=== PATIENT | male | born 1960 | race Caucasian/White ===

== ENCOUNTER 2023-08-11 12:04 | Outpatient (OUT) | payer MEDICARE, SELFPAY ==
--- NOTE | 2023-08-11 13:11 | PM.CN ---
Consult Note: HPI Data of Consult Patient: new to practice Consult date: 08/11/23 Requesting Physician: Savanna Mcclain MD Primary Care Provider: JOSH MELVIN Consult Narrative Reason for consult: neck, midback, low back, bilateral leg pain Narrative: 62yom who presents for evaluation. Generalized pain throughout his body, worst throughout low back. Has had lumbar surgeries previously with subsequent spinal cord stim placement. States that the stim battery no longer works, though has not had this interrogated for a long time. Was previously on high dose narcotics, but did not like taking these medications. Currently on gabapentin and flexeril, which does help. Engages in provider directed home exercise course for >6 weeks, with minimal benefit. Otherwise denies adverse med side effects. cc:: CC: Savanna Mcclain MD Review of Systems ROS Status of ROS 10 or more systems reviewed and unremarkable except as noted in history and below Exam Narrative Exam Narrative: Psych-alert and oriented x 3. Attentive and appropriate, constitutionally normal, displays normal mood and affect per situation. There are no obvious deficits in memory, reasoning, or intellect.? Skin-no obvious rashes, bruising, erythema noted to the patient's area of pain.? Extremities- extremities are warm with minimal edema and palpable pulses. Cervical- tenderness to palpation noted in the cervical spine and paraspinal musculature.? Pain is elicited with extension, and lateral rotation of the cervical spine.? Range of motion is slightly diminished due to pain. Facet loading maneuvers are positive bilaterally. Lumbar-tenderness to palpation noted in the lumbar spine and paraspinal musculature. Pain is elicited with flexion, extension, and lateral rotation of the lumbar spine. Range of motion is diminished with these motions. Facet loading maneuvers are positive. Strength-noted to be unremarkable with the exception of decreased strength rated at 4 out of 5 in bilateral quadriceps femoris, anterior tibialis. Sensory-no notable sensory deficits in the bilateral lower extremities to touch or pinprick in all dermatomal distributions with the exception to decreased sensation to the bilateral L4, 5 dermatomal distribution Coordination remains intact.? Gait remains non-antalgic. Assessment and Plan Assessment and Plan (1) Cervicalgia: (2) Thoracic back pain: (3) Lumbar stenosis with neurogenic claudication: (4) Lumbar postlaminectomy syndrome: Plan 62yom who presents for evaluation. Failed conservative measures, as noted. Would like to have [employer] reps interrogate his device before deciding whether battery needs replacement. Because it has been several years since his most recent imaging, would like him to undergo XR cervical spine, thoracic spine, and CT lumbar spine myelogram. Cannot undergo MRI due to spinal cord stim battery. He is in agreement. Medications reviewed. Pain medication currently prescribed by PCP, but discussed that I would be willing to take over his gabapentin and flexeril if his PCP prefers. He expressed understanding. Follow up after imaging.
== END 2023-08-11 12:05 | disposition home or self-care (01) ==
LOC: PM 12:05
PROVIDERS: PCP Family Medicine; Visit Provider Anesthesiology
DX: M54.2 Cervicalgia (principal); M54.6 Pain in thoracic spine; M96.1 Postlaminectomy syndrome, not elsewhere classified; M48.062 Spinal stenosis, lumbar region with neurogenic claudication
CPT/HCPCS: G0463

== ENCOUNTER 2023-08-25 09:40 | Day surgery (SDC) | payer MEDICARE, SELFPAY ==
--- NOTE | 2023-08-25 10:02 | FL_ITS ---
The [address] [address] Patient Name: CHARLI MEIER MRN: [id number] date: 1960 Sex: M Assigned Patient Location: [place] Current Patient Location: [place] Accession/Order Number: [id number] Exam Date: 08/25/2023 10:10 Report Date: 08/25/2023 11:46 At the request of: KIKE GIEDRAFABI Procedure: FL myelogram spine lumbosacral EXAMINATION: FL myelogram spine lumbosacral HISTORY: Post Laminectomy Syndrome COMPARISON: No relevant comparison available. TECHNIQUE: After obtaining the patient's informed consent, a lumbar myelogram was performed in the usual sterile manner via lumbar puncture. Standard level fluoroscopic mode of operation utilized. FINDINGS: PARASPINAL AREA: Normal with no visible mass. DISCS: Intervertebral disc spacers L3-4, L4-5, L5-S1. BONES: Mechanical fusion L3-S1 via bilateral pedicle screws and rods. Laminectomy L4 and L5 levels. CENTRAL CANAL: Grossly normal caliber and contour. The conus terminates at a normal level. FL/FL myelogram spine lumbosacral IMPRESSION: 1. Successful lumbar puncture at L4 level and instillation of radiopaque contrast within central canal. Patient tolerated the procedure well with no complications. 2. Please see report from subsequent CT lumbar spine study. Electronically authenticated by: BOUCHRA HALL Date: 08/25/2023 11:46
--- NOTE | 2023-08-25 10:02 | CT_ITS ---
The [address] [address] Patient Name: CHARLI MEIER MRN: [id number] date: 1960 Sex: M Assigned Patient Location: [place] Current Patient Location: Accession/Order Number: [id number] Exam Date: 08/25/2023 11:12 Report Date: 08/26/2023 03:21 At the request of: KIKE MCKEON Procedure: CT lumbar spine wo con EXAM: CT lumbar spine wo con HISTORY: Post Laminectomy Syndrome COMPARISON: None. TECHNIQUE: CT myelogram of the lumbar spine FINDINGS: There is straightening of the normal lumbar lordotic curvature. Postsurgical changes visualized secondary to transpedicular screw fixation with posterior rods spanning the L3-S1 levels with bilateral laminectomies status post canal decompression. Intervertebral disc spacers at the L3-L4, L4-L5 and L5-S1 levels. Hardware appears intact without evidence for fracture or loosening There is contrast opacification noted within the lower thoracic and lumbar central canal. T11-T12: Small broad-based disc protrusion visualized with mild central canal narrowing. Mild facet arthrosis visualized. T12-L1: No significant disc herniation/bulge visualized, the central canal and bilateral neuroforamina are patent. L1-L2: There is a large central disc extrusion with cranial migration extending up to the midportion of the L1 vertebral body measuring up to 7 mm in AP diameter. This contributes to moderate to severe central canal narrowing at this level. Mild facet arthrosis visualized with mild right and [id number] left neuroforaminal narrowing. L2-L3: Small central disc protrusion visualized effacing the ventral thecal sac with associated ligamentum flavum thickening and facet arthropathy, there is mild to moderate central canal narrowing. Mild bilateral neuroforaminal narrowing visualized. L3-L4: Postsurgical changes visualized, the central canal is patent. No significant neuroforaminal narrowing visualized. L4-L5: Postsurgical changes visualized, the central canal is patent. No significant neuroforaminal narrowing visualized. L5-S1: Postsurgical changes visualized, the central canal is patent. No significant neuroforaminal narrowing visualized. CT/CT lumbar spine wo con IMPRESSION: 1. At L1-L2 level there is a large central disc extrusion with cranial migration extending up to the midportion of the L1 vertebral body measuring up to 7 mm in AP diameter. This contributes to moderate to severe central canal narrowing at this level with mild right and rlsf-rm-ixocgnic left neuroforaminal narrowing. 2. Small central disc protrusion at L2-L3 with associated ligamentum flavum thickening and facet arthropathy with mild to moderate central canal narrowing and mild bilateral neuroforaminal narrowing. 3. Postsurgical changes visualized secondary to posterior fusion hardware spanning the L3-S1 levels with bilateral laminectomies status post canal decompression and intervertebral disc spacers at the L3-L4, L4-L5 and L5-S1 levels. No evidence for hardware complication. No evidence for central canal narrowing within these levels. Electronically authenticated by: CONSUELO DEGROOT Date: 08/26/2023 03:21
[2023-08-25 10:10] VITALS: BP 133/67; PULSE 91; TEMP 36.7; O2SAT 94
[2023-08-25 10:23] LABS: Glucometer 141 mg/dL (74-106)
[2023-08-25] MEDS: LIDOCAINE HCL 10 ML, SODIUM BICARBONATE 1 MEQ INJ (11:00)
[2023-08-25 11:15] VITALS: BP 147/90; PULSE 86; O2SAT 95
[2023-08-25 11:30] VITALS: BP 136/63; PULSE 80; O2SAT 95
[2023-08-25 11:45] VITALS: BP 130/82; PULSE 91; O2SAT 95
[2023-08-25 12:00] VITALS: BP 155/69; PULSE 80; O2SAT 92
--- NOTE | 2023-08-25 12:02 | PC.NURSE ---
1105 Pt turned in [place] x [address] scan. Pt transferred to cart and taken to holding area. Pt taken to CT by cart. Transfers with minimal assist. 1115 CT completed and pt resting in holding area. SR up X2. Call light in reach. Hob elevated to 30 degrees. Bed in low position. Pt states that pain level is unchanged from prior to procedure. Pt pleasant , Skin pink wm and dry. 1130 Pt ordered food from menu and is watching TV. 1135 Pt sitting up on side of bed to eat. Call light in reach. 1145 Pt ate 100 % meal and enc to drink lots fluids. Bandaid dry and intact. Pt denies any complaints.
[2023-08-25 12:15] VITALS: BP 147/93; PULSE 86; O2SAT 93
== END 2023-08-25 12:35 | disposition home or self-care (01) ==
PROVIDERS: Radiology Diagnostic Radiology; PCP Family Medicine; Visit Provider Anesthesiology
DX: M96.1 Postlaminectomy syndrome, not elsewhere classified (principal)
CPT/HCPCS: 36415; 62284; 72131; 72132; 72265; 77003; Q9966

== ENCOUNTER 2023-08-27 09:54 | Outpatient (OUT) | payer MEDICARE, SELFPAY ==
--- NOTE | 2023-08-27 11:10 | P.CN_ITS ---
Consult Note: HPI Data of Consult Patient: known to practice within the last 3 years Consult date: 08/11/23 Requesting Physician: Rosemary Kwon NP Primary Care Provider: JOSH MELVIN Consult Narrative Reason for consult: f/u Narrative: 62yom who presents for evaluation. Generalized pain throughout his body, worst t hroughout low back. Has had lumbar surgeries previously with subsequent spinal cord stim placement. States that the stim battery no longer works, though has not had this interrogated for a long time. Was previously on high dose narcotics, but did not like taking these medications. Currently on gabapentin and flexeril, which does help. Engages in provider directed home exercise course for >6 weeks, with minimal benefit. Otherwise denies adverse med side effects. cc:: CC: Rosemary Kwon NP Review of Systems ROS Status of ROS 10 or more systems reviewed and unremarkable except as noted in history and below Musculoskeletal Reports: back pain PFSH PFSH Medical History Anxiety ?F41.9 - Anxiety disorder, unspecified (ICD-10) Diabetes ?E11.9 - Type 2 diabetes mellitus without complications (ICD-10) Diverticulosis ?K57.90 - Diverticulosis of intestine, part unspecified, without perforation or abscess without bleeding (ICD-10) Fusion of spine, cervical region ?M43.22 - Fusion of spine, cervical region (ICD-10) High cholesterol ?E78.00 - Pure hypercholesterolemia, unspecified (ICD-10) HTN (hypertension) ?I10 - Essential (primary) hypertension (ICD-10) Lumbar post-laminectomy syndrome ?M96.1 - Postlaminectomy syndrome, not elsewhere classified (ICD-10) Surgical History History of colon resection ?Z90.49 - Acquired absence of other specified parts of digestive tract (ICD- 10) History of lumbar surgery ?Z98.890 - Other specified postprocedural states (ICD-10) History of shoulder surgery ?Z98.890 - Other specified postprocedural states (ICD-10) Status post insertion of spinal cord stimulator ?Z96.89 - Presence of other specified functional implants (ICD-10) Social History Gender Identity: male Meds Home Medications and Allergies Home Medications Medication Instructions Recorded Confirmed Type atorvastatin 40 mg tablet 40 mg PO DAILY 08/14/23 08/25/23 History buspirone 30 mg tablet 30 mg PO TID 08/14/23 08/25/23 History celecoxib 200 mg capsule 200 mg PO DAILY 08/14/23 08/25/23 History cyclobenzaprine 10 mg tablet 10 mg PO TID 08/14/23 08/25/23 History duloxetine 60 mg capsule,delayed 60 mg PO BID 08/14/23 08/25/23 History release empagliflozin 10 mg tablet 10 mg PO DAILY 08/14/23 08/25/23 History (Jardiance) gabapentin 600 mg tablet 600 mg PO BID 08/14/23 08/25/23 History insulin aspart U-100 100 unit/mL 1 sliding scale dose subcut 08/14/23 08/25/23 History (3 mL) subcutaneous pen (Novolog USEASDIRECTD FlexPen U-100 Insulin aspart) insulin degludec 200 unit/mL (3 20 unit subcut DAILY 08/14/23 08/25/23 History mL) subcutaneous pen (Tresiba FlexTouch U-200 insulin) lisinopril 20 1 tab PO DAILY 08/14/23 08/25/23 History mg-hydrochlorothiazide 12.5 mg tablet metformin 1,000 mg tablet 1,000 mg PO DAILY 08/14/23 08/25/23 History omeprazole 40 mg capsule,delayed 40 mg PO DAILY 08/14/23 08/25/23 History release Allergies Allergy/AdvReac Type Severity Reaction Status Date / Time No Known Drug Allergies Allergy Verified 08/25/23 11:44 Exam Narrative Exam Narrative: Psych-alert and oriented x 3. Attentive and appropriate, constitutionally normal, displays normal mood and affect per situation. There are no obvious deficits in memory, reasoning, or intellect.? Skin-no obvious rashes, bruising, erythema noted to the patient's area of pain.? Extremities- extremities are warm with minimal edema and palpable pulses. Cervical- tenderness to palpation noted in the cervical spine and paraspinal musculature.? Pain is elicited with extension, and lateral rotation of the cervical spine.? Range of motion is slightly diminished due to pain. Facet loading maneuvers are positive bilaterally. Lumbar-tenderness to palpation noted in the lumbar spine and paraspinal musculature. Pain is elicited with flexion, extension, and lateral rotation of the lumbar spine. Range of motion is diminished with these motions. Facet loading maneuvers are positive. Strength-noted to be unremarkable with the exception of decreased strength rated at 4 out of 5 in bilateral quadriceps femoris, anterior tibialis. Sensory-no notable sensory deficits in the bilateral lower extremities to touch or pinprick in all dermatomal distributions with the exception to decreased sensation to the bilateral L4, 5 dermatomal distribution Coordination remains intact.? Gait remains non-antalgic. Assessment and Plan Assessment and Plan (1) Lumbar postlaminectomy syndrome: (2) Lumbar stenosis with neurogenic claudication: (3) Thoracic back pain: (4) Cervicalgia: Plan bilateral L1-2 TFESI under fluoroscopy with Dr Mcclain refer back to [facility] for further evaluation and management, patient had back surgery with him before but has not been seen since increase gabapentin to 1200mg TID, consider lyrica rotation Needs SCS replaced as battery is as evaluated by [employer] today f/u 1 month to evaluate medication changes, follow up 2 weeks after [facility]
== END 2023-08-27 09:55 | disposition home or self-care (01) ==
LOC: PM 09:59
PROVIDERS: PCP Family Medicine; Visit Provider Nurse Practitioner
DX: M48.062 Spinal stenosis, lumbar region with neurogenic claudication (principal); M54.6 Pain in thoracic spine; M54.2 Cervicalgia; M96.1 Postlaminectomy syndrome, not elsewhere classified
CPT/HCPCS: G0463

== ENCOUNTER 2023-09-22 11:04 | Day surgery (SDC) | payer MEDICARE, SELFPAY ==
[2023-09-22 11:48] VITALS: BP 125/73; PULSE 94; RESP 14; TEMP 36.8; O2SAT 95
[2023-09-22 11:55] LABS: Glucometer 195 mg/dL (74-106)
[2023-09-22 12:22] VITALS: BP 165/85; PULSE 91; RESP 18; O2SAT 91
[2023-09-22] MEDS: 0.9 % SODIUM CHLORIDE 10 ML INJ (12:25)
[2023-09-22] MEDS: DEXAMETHASONE SOD PHOS 10 MG/ML VIAL INJ (12:26)
[2023-09-22] MEDS: BUPIVACAINE HCL 0.25% PF 25 MG/10 ML VIAL INJ (12:26)
--- NOTE | 2023-09-22 12:26 | W.PM.PROCNOT ---
Date of procedure: 09/22/23 Pre-op diagnosis: Lumbar stenosis with neurogenic claudication Post-op diagnosis: same as pre-op Procedure: Procedure: Bilateral L1-2 transforaminal epidural steroid injection Medications: Bupivacaine 0.25% 2cc, dexamethasone 10mg, normal saline 0.9% 1cc The patient was seen and examined in the preoperative holding area.? Informed consent was obtained and placed on the chart.? Patient was brought to the medical procedure unit and placed in the prone position where a timeout was completed verifying the correct patient, procedure site, position, and planned special equipment using sterile aseptic technique.? Under direct fluoroscopic visualization a 25-gauge Quincke tipped spinal needle was advanced at level left L1-2 to the designated neural foramen where contrast dye was injected to show adequate spread.? There was no evidence of vascular or adverse uptake.? Epidural spread was appreciated.? The above-mentioned injectate was then placed in a 1.5 mL aliquot preceded by negative aspiration.? The needle was removed. The same procedure, at the same level, was completed on the opposite side. ? Patient was taken to the postprocedural recovery area and monitored for an appropriate length of time before found suitable for discharge in the accompaniment of a responsible adult. Anesthesia: Local Surgeon: Savanna Mcclain Pathology: none sent Condition: stable Disposition: no change
[2023-09-22] MEDS: IOHEXOL 240 MG/ML - 10 ML VIAL 24 MG INJ (12:27)
[2023-09-22] MEDS: LIDOCAINE HCL 2% PF 100 MG/5 ML VIAL 2 ML INJ (12:28)
[2023-09-22 12:29] VITALS: BP 163/87; PULSE 91; RESP 18; O2SAT 95
== END 2023-09-22 12:29 | disposition home or self-care (01) ==
PROVIDERS: PCP Family Medicine; Visit Provider Anesthesiology
DX: M48.062 Spinal stenosis, lumbar region with neurogenic claudication (principal)
CPT/HCPCS: 36415; 64483; J1100; Q9966

== ENCOUNTER 2023-09-29 13:58 | Outpatient (OUT) | payer MEDICARE, SELFPAY ==
--- NOTE | 2023-09-29 15:57 | PM.CN ---
Consult Note: HPI Data of Consult Patient: known to practice within the last 3 years Consult date: 09/29/23 Requesting Physician: Rosemary Kwon NP Primary Care Provider: JOSH MELVIN Consult Narrative Reason for consult: neck, low back pain Narrative: 62yom who presents for assessment. moderate relief after recent lumbar tfesi. now has increasing weakness into bilateral lower extremities, low back pain. this pain was treated by spinal cord stim before, but battery is . he also has increasing neck pain with radiation into upper extremities. continues in provider directed home exercise program >6 weeks >3x/week, without significant relief. continues with gabapentin and flexeril. cc:: CC: Rosemary Kwon NP Review of Systems ROS Status of ROS 10 or more systems reviewed and unremarkable except as noted in history and below [facility] Medical History Anxiety ?F41.9 - Anxiety disorder, unspecified (ICD-10) Diabetes ?E11.9 - Type 2 diabetes mellitus without complications (ICD-10) Diverticulosis ?K57.90 - Diverticulosis of intestine, part unspecified, without perforation or abscess without bleeding (ICD-10) Fusion of spine, cervical region ?M43.22 - Fusion of spine, cervical region (ICD-10) High cholesterol ?E78.00 - Pure hypercholesterolemia, unspecified (ICD-10) HTN (hypertension) ?I10 - Essential (primary) hypertension (ICD-10) Lumbar post-laminectomy syndrome ?M96.1 - Postlaminectomy syndrome, not elsewhere classified (ICD-10) Surgical History History of colon resection ?Z90.49 - Acquired absence of other specified parts of digestive tract (ICD-10) History of lumbar surgery ?Z98.890 - Other specified postprocedural states (ICD-10) History of shoulder surgery ?Z98.890 - Other specified postprocedural states (ICD-10) Status post insertion of spinal cord stimulator ?Z96.89 - Presence of other specified functional implants (ICD-10) Social History Gender Identity: male Meds Home Medications and Allergies Home Medications Medication Instructions Recorded Confirmed Type atorvastatin 40 mg tablet 40 mg PO DAILY 08/14/23 09/22/23 History buspirone 30 mg tablet 30 mg PO TID 08/14/23 09/22/23 History celecoxib 200 mg capsule 200 mg PO DAILY 08/14/23 09/22/23 History cyclobenzaprine 10 mg tablet 10 mg PO TID 08/14/23 09/22/23 History duloxetine 60 mg capsule,delayed 60 mg PO BID 08/14/23 09/22/23 History release empagliflozin 10 mg tablet 10 mg PO DAILY 08/14/23 09/22/23 History (Jardiance) gabapentin 600 mg tablet 600 mg PO BID 08/14/23 09/22/23 History insulin aspart U-100 100 unit/mL 1 sliding scale dose subcut 08/14/23 09/22/23 History (3 mL) subcutaneous pen (Novolog USEASDIRECTD FlexPen U-100 Insulin aspart) insulin degludec 200 unit/mL (3 20 unit subcut DAILY 08/14/23 09/22/23 History mL) subcutaneous pen (Tresiba FlexTouch U-200 insulin) lisinopril 20 1 tab PO DAILY 08/14/23 09/22/23 History mg-hydrochlorothiazide 12.5 mg tablet metformin 1,000 mg tablet 1,000 mg PO DAILY 08/14/23 09/22/23 History omeprazole 40 mg capsule,delayed 40 mg PO DAILY 08/14/23 09/22/23 History release gabapentin 600 mg tablet 1,200 mg PO TID #540 tabs 09/08/23 09/22/23 Rx Allergies Allergy/AdvReac Type Severity Reaction Status Date / Time No Known Drug Allergies Allergy Verified 09/22/23 11:46 Exam Narrative Exam Narrative: Psych-alert and oriented x 3.? Attentive and appropriate, constitutionally normal, displays normal mood and affect per situation.? There are no obvious deficits in memory, reasoning, or intellect.? Skin-no obvious rashes, bruising, or erythema noted to the patient's area of pain.? Extremities-upper extremities are warm with minimal edema and palpable pulses. Cervical- tenderness to palpation noted in the cervical spine and paraspinal musculature.? Pain is elicited with flexion, extension, and lateral rotation of the cervical spine.? Range of motion is diminished due to pain. Facet loading maneuvers are positive.? Strength-unremarkable and within normal limits with the exception to the bilateral biceps, triceps.? Sensory-no notable sensory deficits in the bilateral upper extremities to touch or pinprick with the exception to decreased sensation to the bilateral C5, 6, 7 dermatomal distribution.? Coordination remains intact.? Gait remains non-antalgic. Assessment and Plan Assessment and Plan (1) Cervical stenosis of spinal canal: (2) Cervical post-laminectomy syndrome: (3) Lumbar postlaminectomy syndrome: Plan 62yom who presents for assessment. failed conservative measures. scheduled to have scs battery replaced, which will hopefully help low back and leg symptoms. in terms of neck and arm pain, cervical XR was reviewed, which shows multilevel degeneration. given radiating component, will have him undergo cervical CT without contrast. he is in agreement. medications reviewed, no changes. follow up after procedure and imaging.
== END 2023-09-29 13:59 | disposition home or self-care (01) ==
PROVIDERS: PCP Family Medicine; Visit Provider Anesthesiology
DX: M48.02 Spinal stenosis, cervical region (principal); M96.1 Postlaminectomy syndrome, not elsewhere classified
CPT/HCPCS: G0463

== ENCOUNTER 2023-10-08 09:14 | Outpatient (OUT) | payer MEDICARE, SELFPAY ==
--- NOTE | 2023-10-08 09:46 | P.CN_ITS ---
Consult Note: HPI Data of Consult Patient: known to practice within the last 3 years Requesting Physician: Rosemary Kwon NP Primary Care Provider: JOSH MELVIN Consult Narrative Reason for consult: SCS battery exchange Narrative: Koko Hernandez a pleasant 62 year old male presents for evaluation post SCS battery exchange 09/30/[address] Mcclain. Today pain is 5/10 in right low back and buttocks. Patient denies fevers, chills, pain in left buttock. cc:: CC: Rosemary Kwon NP Review of Systems ROS Status of ROS 10 or more systems reviewed and unremark able except as noted in history and below PFSH PFSH Medical History Fusion of spine, cervical region ?M43.22 - Fusion of spine, cervical region (ICD-10) Lumbar post-laminectomy syndrome ?M96.1 - Postlaminectomy syndrome, not elsewhere classified (ICD-10) Anxiety ?F41.9 - Anxiety disorder, unspecified (ICD-10) HTN (hypertension) ?I10 - Essential (primary) hypertension (ICD-10) High cholesterol ?E78.00 - Pure hypercholesterolemia, unspecified (ICD-10) Diabetes ?E11.9 - Type 2 diabetes mellitus without complications (ICD-10) Diverticulosis ?K57.90 - Diverticulosis of intestine, part unspecified, without perforation or abscess without bleeding (ICD-10) Surgical History History of shoulder surgery ?Z98.890 - Other specified postprocedural states (ICD-10) History of colon resection ?Z90.49 - Acquired absence of other specified parts of digestive tract (ICD- 10) History of lumbar surgery ?Z98.890 - Other specified postprocedural states (ICD-10) Social History Gender Identity: male Meds Home Medications and Allergies Home Medications Medication Instructions Recorded Confirmed Type atorvastatin 40 mg tablet 40 mg PO DAILY 08/14/23 09/22/23 History buspirone 30 mg tablet 30 mg PO TID 08/14/23 09/22/23 History celecoxib 200 mg capsule 200 mg PO DAILY 08/14/23 09/22/23 History cyclobenzaprine 10 mg tablet 10 mg PO TID 08/14/23 09/22/23 History duloxetine 60 mg capsule,delayed 60 mg PO BID 08/14/23 09/22/23 History release empagliflozin 10 mg tablet 10 mg PO DAILY 08/14/23 09/22/23 History (Jardiance) gabapentin 600 mg tablet 600 mg PO BID 08/14/23 09/22/23 History insulin aspart U-100 100 unit/mL 1 sliding scale dose subcut 08/14/23 09/22/23 History (3 mL) subcutaneous pen (Novolog USEASDIRECTD FlexPen U-100 Insulin aspart) insulin degludec 200 unit/mL (3 20 unit subcut DAILY 08/14/23 09/22/23 History mL) subcutaneous pen (Tresiba FlexTouch U-200 insulin) lisinopril 20 1 tab PO DAILY 08/14/23 09/22/23 History mg-hydrochlorothiazide 12.5 mg tablet metformin 1,000 mg tablet 1,000 mg PO DAILY 08/14/23 09/22/23 History omeprazole 40 mg capsule,delayed 40 mg PO DAILY 08/14/23 09/22/23 History release gabapentin 600 mg tablet 1,200 mg (2 x 600 mg) PO TID #540 09/08/23 09/22/23 Rx tabs Allergies Allergy/AdvReac Type Severity Reaction Status Date / Time No Known Drug Allergies Allergy Verified 09/22/23 11:46 Exam Narrative Exam Narrative: Psych-alert and oriented x 3.? Attentive and appropriate, constitutionally normal, displays normal mood and affect per situation.? There are no obvious deficits in memory, reasoning, or intellect.? Skin-no obvious rashes, bruising, or erythema noted to the patient's area of pain.? Extremities-upper extremities are warm with minimal edema and palpable pulses. Cervical- tenderness to palpation noted in the cervical spine and paraspinal musculature.? Pain is elicited with flexion, extension, and lateral rotation of the cervical spine.? Range of motion is diminished due to pain. Facet loading maneuvers are positive .? Strength-unremarkable and within normal limits with the exception to the bilateral biceps, triceps.? Sensory-no notable sensory deficits in the bilateral upper extremities to touch or pinprick with the exception to decreased sensation to the bilateral C5, 6, 7 dermatomal distribution.? Coordination remains intact.? Gait remains non-antalgic. Assessment and Plan Assessment and Plan (1) Status post insertion of spinal cord stimulator: Assessment and Plan: bandage dry and intact, dressing removed. Site clean dry and intact, no edema warmth or redness patient encouraged to leave open to air and resume showering tomorrow denies fevers/chills educated to call if pain develops in that area, notices swelling edema or redness, or drainage from site. pt verbalized understanding (2) Cervical post-laminectomy syndrome: (3) Cervical stenosis of spinal canal: (4) Lumbar postlaminectomy syndrome: Plan continue current medications cervical CT pending f/u after results
== END 2023-10-08 09:15 | disposition home or self-care (01) ==
PROVIDERS: PCP Family Medicine; Visit Provider Nurse Practitioner
DX: M48.02 Spinal stenosis, cervical region (principal); Z98.890 Other specified postprocedural states; M96.1 Postlaminectomy syndrome, not elsewhere classified
CPT/HCPCS: G0463

== ENCOUNTER 2023-10-10 09:26 | Outpatient (OUT) | payer MEDICARE, SELFPAY ==
--- NOTE | 2023-10-10 09:41 | CT_ITS ---
[address] [address] Patient Name: CHARLI MEIER MRN: [id number] date: 1960 Sex: M Assigned Patient Location: CT Current Patient Location: Accession/Order Number: [id number] Exam Date: 10/10/2023 09:35 Report Date: 10/10/2023 16:09 At the request of: KIKE MCKEON Procedure: CT cervical spine wo con EXAM: CT cervical spine wo con HISTORY: Chronic bilateral shoulder and arm pain. COMPARISON: None. TECHNIQUE: Axial CT scans of the cervical spine were obtained without contrast. MPR images were obtained. Dose reduction techniques were achieved by using: automated exposure control and/or adjustment of mA and /or kV according to patient size and/or use of iterative reconstruction technique. FINDINGS: At C2-C3, mild to moderate right facet arthropathy. At C3-C4, posterior discovertebral complex results in mild central spinal stenosis. Moderate stenosis of the right neural foramen secondary to decreased disc height and uncovertebral hypertrophy. At C4-C5, posterior discovertebral complex results in mild central spinal stenosis. Moderate stenosis of the right neural foramen secondary to decreased disc height and uncovertebral hypertrophy. Prior C6 corpectomy with placement of a strut graft and anterior cervical fusion from C5 to C7 with placement of an anterior plate and screws. Breakage of the anterior plate at the upper aspect of C7 is present. No radiolucency around the screws. At C7-T1, slight degenerative spondylolisthesis of C7 on T1. No destructive bony lesions. The prevertebral space shows no edema. The visualized intracranial contents show no acute process. The visualized neck shows no adenopathy. The visualized upper lungs are clear. CT/CT cervical spine wo con IMPRESSION: Degenerative changes at C3-C4 and C4-C5 with mild central spinal stenosis and moderate neural foramina stenosis on the right at these 2 levels. Prior C6 corpectomy with placement of a strut graft and anterior cervical fusion from C5 to C7 with placement of an anterior plate and screws. Breakage of the anterior plate at the upper aspect of C7 is present. No radiolucency around the screws. Slight degenerative spondylolisthesis of C7 on T1. Electronically authenticated by: KIERRA BOYD Date: 10/10/2023 16:09
== END 2023-10-10 09:27 | disposition home or self-care (01) ==
LOC: CT 09:26
PROVIDERS: PCP Family Medicine; Visit Provider Anesthesiology
DX: M48.02 Spinal stenosis, cervical region (principal); M50.31 Other cervical disc degeneration, high cervical region; M50.321 Other cervical disc degeneration at C4-C5 level
CPT/HCPCS: 72125

== ENCOUNTER 2023-10-30 09:06 | Outpatient (OUT) | payer MEDICARE, SELFPAY ==
--- OUTSIDE RECORDS SUMMARY | 2023-10-30 09:16 | XMS_ITS | CCD ---
Author Name Unknown Address [address] [place] [address] Organization [facility] Care Team Providers Care Cable Maker Name Role Phone Mariel Mcgraw Unavailable Courtney Espino Unavailable Bunting, DO Josh Primary Care Provider Flip Diamond Attending Provider Alexis Abdi Unavailable Bunting, DO Josh Primary Care Provider Bunting, DO Josh Attending Provider MD Yunier Ariza Attending Provider [phone] Bunting, DO Josh Primary Care Provider [phone] MD Mariel Mcgraw Attending Provider Bunting, DO Josh Primary Care Provider MD Mariel Mcgraw Attending Provider MD Errol Humphrey Attending Provider Unavailable Primary Care Provider Unavailabl e DONNY PERALTA Attending Unavailable BUNTING, JOSH RAY Referring Unavailable DONNY PERALTA Referring Unavailable Bunting, DO Josh Primary Care Provider Bunting, DO Josh Attending Provider Bunting, DO Josh Primary Care Provider PORTER CasanovaP-AMAIRANI [facility] Emergency Provider [phone] Bunting, DO Josh Attending Provider MD Johny [facility] Attending Provider Bunting, DO Josh Primary Care Provider [phone] Bullimore, [facility]- Nery E Emergency Provider [phone] Olegario, DO Powell Attending Provider MD Savanna Mcclain Attending Provider MD Emmett Becker Attending Provider Karime Nguyen Unavailable Johny MATUTE, Andrius Darden Attending Unavailable Giedraitis , Andrius Adelaautedison Attending Unavailable Gilelandraitis , Dixonrius Adelso Attending Unavailable Giedraitis , Andrius Darden Attending Unavailable IMTIAZ ZAIDI Attending Unavailable KARIME NGUYEN Referring Unavailable FEROZ APTEL Attending Unavailable Gipeewee, Andri Admitting Unavailable Giedraitis, Andrius Attending Unavailable Bunting, Josh Primary Care Unavailable Malak, Osama Admitting Unavailable Malak, Osama Attending Unavailable Bunting, Josh Primary Care Unavailable Becker, Emmett Admitting Unavailable Becker, Emmett Attending Unavailable Bunting, Josh Primary Care Unavailable Bunting, Josh Primary Care Unavailable Becker, Emmett Admitting Unavailable Becker, Emmett Attending Unavailable Becker, Emmett Admitting Unavailable Becker, Emmett Attending Unavailable Bunting, Josh Primary Care Unavailable Bullimore, Nery E Admitting Unavailable Bullimore, Nery E Attending Unavailable Bunting, Jsoh Primary Care Unavailable Bunting, Josh Primary Care Unavailable Chaban Kamal Admitting Unavailable Chaban Kamal Attending Unavailable HedayaErrol Attending Unavailable Bunting, Josh Primary Care Unavailable Errol Humphrey Admitting Unavailable Bunting, Josh Attending Unavailable Bunting, Josh Admitting Unavailable Bunting, Josh Primary Care Unavailable Bunting, Josh Attending Unavailable Bunting, Josh Admitting Unavailable Bunting, Josh Primary Care Unavailable Medications Current Medications Medication Drug Class(es) Dates Sig (Normalized) Sig (Original) atorvastatin 40 mg oral tablet (20 sources) HMG-CoA Reductase Inhibitor Start: 04-20-2019 End: 02-26-2021 take 1 tablet by mouth once daily in the morning Atorvastatin (Lipitor) 40 mg Tablet Active 40 MG PO Every morning April 19, 2019 11:00pm busPIRone hydrochloride 30 mg oral tablet (16 sources) Start: 09-23-2023 take 30 mg by mouth three times daily Buspirone Active 30 MG PO Three times daily September 23, 2023 12:00am Start: 03-13-2023 take 1 tablet by twyla th three times daily for anxiety busPIRone HCl 30 mg tablet TAKE 1 TABLET BY MOUTH THREE TIMES DAILY FOR ANXIETY 0 03/13/2023 Active Start: 04-20-2019 End: 09-23-2023 take 15 mg by mouth three times daily Buspirone Discontinued 15 MG PO Three times daily April 19, 2019 11:00pm September 23, 2023 11:33am take 1 tablet by twyla th every twelve hours busPIRone HCl 30 MG 1 tablet Orally Twice a day Active Comment on above: TAKE 1 TABLET BY TWYLA TH THREE TIMES DAILY FOR ANXIETY celecoxib 200 mg oral capsule (20 sources) Nonsteroidal Anti-inflammatory Drug Start: take 1 capsule by mouth twice daily Celecoxib (Celebrex) 200 mg Capsule Active 200 MG PO Twice daily April 19, 2019 11:00pm Comment on above: take 1 capsule by mo [facility] twice a day Oral for 28 Days clotrimazole 10 mg oral lozenge (1 source) Azole Antifungal Start: End: clotrimazole (MYCELEX) 10 mg bud Use 1 Bud as instructed four times daily for 14 days. 56 tablet 0 03/26/2023 04/09/2023 Active Comment on above: Use 1 Bud as inst ructed four times daily for 14 days. cyclobenzaprine hydrochloride 10 mg oral tablet (6 sources) Muscle Relaxant Start: 023 take 10 mg by mouth three times daily Cyclobenzaprine Active 10 MG PO Three times daily September 23, 2023 12:00am Start: 02-07-2023 take 1 tablet by twyla th three times daily cyclobenzaprine (FLEXERIL) 10 mg tablet Take 10 mg by mouth three times daily. 0 02/07/2023 Active take 1 tablet by twyla th every twenty-four hours Cyclobenzaprine HCl 10 MG 1 tablet at bedtime as needed Orally Once a day Active Comment on above: Take 10 mg by mouth three times daily. empagliflozin 10 mg oral tablet (4 sources) Sodium-Glucose Cotransporter 2 Inhibitor Start: 09-23-20 take 1 tablet by mouth once daily in the morning Empagliflozin (Jardiance) 10 mg Tablet Active 10 MG PO Every morning September 23, 2023 12:00am empagliflozin (J ARDIANCE) 10 mg tablet Take 10 mg by mouth. 0 Active Comment on above: Take 10 mg by mouth. gabapentin 600 mg oral tablet (20 sources) Anti-epileptic Agent Start: 09-23-2023 take 1200 mg by mouth three times daily Gabapentin Active 1200 MG PO Three times daily September 23, 2023 12:00am Start: 04-20-2019 take 600 mg by mouth three times daily Gabapentin Active 600 MG PO Three times daily September 23, 2023 12:00am Start: 04-20-2019 End: 09-23-2023 take 3 capsules by mouth three times daily Gabapentin Discontinued 3 CAP PO Three times daily April 19, 2019 11:00pm September 23, 2023 11:37am Comment on above: Take 1 capsule by mo [facility]. hydroCHLOROthiazide 12.5 mg / lisinopril 20 mg oral tablet (15 sources) Thiazide Diuretic, Angiotensin Converting Enzyme Inhibitor Start: 09-23-20 take 1 tablet by mouth once daily in the morning Lisinopril-[place] chlorothiazide Active 1 TAB PO Every morning September 23, 2023 12:00am Start: 04-03-2021 lisinopril-hyd roCHLOROthiazide (ZESTORETIC) 10-12.5 mg per tablet 1 (one) time each day at the same time. 0 04/03/2021 Active take 1 tablet by twyla th once daily Lisinopril-hydroCHLOROthiazide 10-12.5 M G take 1 tablet by oral route every day Oral Active take 1 tablet by twyla th once daily Lisinopril-hydroCHLOROthiazide 10-12.5 M G take 1 tablet by oral route every day Oral *please review for potential _update for e-prescription and drug interaction check* Active Comment on above: 1 (one) time each da y at the same time. hydrOXYzine pamoate 25 mg oral capsule (4 sources) Antihistamine Start: 3 take 25 mg by mouth every six hours Hydroxyzine Pamoate Active 25 MG PO Q6H September 23, 2023 12:00am Start: 01-30-2023 take 1 capsule by mo [facility] every six hours as needed hydrOXYzine pamoate (VISTARIL) 25 mg capsule TAKE 1 TO 2 CAPSULES BY MOUTH EVERY 6 HOURS NEEDED FOR ANXIETY 0 01/30/2023 Active Comment on above: TAKE 1 TO 2 CAPSULES BY MOUTH EVERY 6 HOURS NEEDED FOR ANXIETY Insulin Aspart U-100 (Novolog Flexpen U-100 Insulin) 100 unit/mL (3 mL) insulin pen (3 sources) Start: 09-23-2023 inject 1 dose by subcutaneous injection at bedtime Insulin Aspart U-100 (Novolog Flexpen U-100 Insulin) 100 unit/mL (3 mL) insulin pen Active 0 sliding scale dose SUBCUT Before meals and at bedtime September 23, 2023 12:00am Start: 09-23-2023 inject 1 dose by sub cutaneous injection at bedtime Insulin Aspart U-100 (Novolog Flexpen U-100 Insulin) 100 unit/mL (3 mL) insulin pen Active sliding scale dose SUBCUT Before meals and at bedtime September 23, 2023 12:00am Start: 09-23-2023 Insulin Aspart U-100 (Novolog Flexpen U-100 Insulin) 100 unit/mL (3 mL) insulin pen Active SUBCUT As Directed September 23, 2023 12:00am 3 ml insulin degludec 100 unt/ml pen injector (18 sources) Insulin Analog Start: 02-26-2021 Insulin Deglud ec (Tresiba Flextouch U-100) 100 unit/mL (3 mL) Insulin Pen Active 75 UNIT SUBCUT Daily February 26, 2021 12:00am PER PT DOSGAE REPORT Start: 01-17-2020 inject 80 [IU] by sutton bcutaneous injection once daily Tresiba FlexTouch 200 UNIT/ML 80 units Subcutaneous daily Dec, Active Insulin Degludec (Tresiba Flextouch U-100) 100 unit/mL (3 mL) Insulin Pen (3 sources) Start: 02-26-2021 Insulin Deglud ec (Tresiba Flextouch U-100) 100 unit/mL (3 mL) Insulin Pen Active 64 UNIT SUBCUT Every morning February 25, 2021 11:00pm PER PT DOSGAE REPORT Start: 02-26-2021 Insulin Deglud ec (Tresiba Flextouch U-100) 100 unit/mL (3 mL) Insulin Pen Active 64 UNIT SUBCUT Daily February 25, 2021 11:00pm PER PT DOSGAE REPORT 3 ml insulin lispro 100 unt/ml pen injector (11 sources) Insulin Analog Start: 01-24-2020 HumaLOG KwikPe n 100 UNIT/ML 15 units breakfast, 42 units dinner, 10 units snack plus correction 1:30 > 150 mg/dl (max daily 70) Subcutaneous Dec, Active Start: 01-24-2020 metFORMIN hydrochloride 1000 mg oral tablet (20 sources) Biguanide Start: 04-20-2019 take 1000 mg by mouth twice daily Metformin Active 1000 MG PO Twice daily April 19, 2019 11:00pm Comment on above: Take 1,000 mg by twyla th. morphine sulfate 15 mg oral tablet (9 sources) Opioid Agonist take 1 tablet by mouth every four hours Morphine Sulfate 15 MG 1 tablet as needed Orally every 4 hrs Active naproxen sodium 220 mg oral capsule (1 source) Nonsteroidal Anti-inflammatory Drug Start: 10-23-2023 take 2 capsules by mouth every twelve hours Naproxen Sodium (Aleve) 220 mg Capsule Active 440 MG PO Q12H October 23, 2023 12:00am omeprazole 40 mg delayed release oral capsule (14 sources) Proton Pump Inhibitor Start: 09-23-2023 take 40 mg by mouth once daily in the morning Omeprazole Active 40 MG PO Every morning September 23, 2023 12:00am Completed/Discontinued Medications Medication Drug Class(es) Dates Sig (Normalized) Sig (Original) acetaminophen 325 mg / oxyCODONE hydrochloride 5 mg oral tablet (4 sources) Opioid Agonist Start: 07-29-2023 End: 09-23-2023 take 1 tablet by mouth every six hours Oxycodone-Acetamin ophen Discontinued 1 TAB PO Q6H 12 July 29, 2023 September 23, 2023 11:37am ARIPiprazole 15 mg oral tablet (10 sources) Atypical Antipsychotic Start: 04-20-2019 End: 02-26-2021 take 1 tablet by mouth once daily Aripiprazole (Abilify) 15 mg Tablet Discontinued 15 MG PO Daily April 19, 2019 11:00pm February 26, 2021 4:36pm buprenorphine 0.15 mg buccal film (10 sources) Partial Opioid Agonist Start: 04-20-2019 End: 02-26-2021 Buprenorphine Hcl (Belbuca) 150 mcg Film Discontinued 150 MCG BUCCAL Q12H April 19, 2019 11:00pm February 26, 2021 4:37pm diazePAM 5 mg oral tablet (4 sources) Benzodiazepine Start: 07-29-2023 End: 09-23-2023 take 5 mg by mouth three times daily Diazepam Discontinued 5 MG PO Three times daily 12 July 28, 2023 11:00pm September 23, 2023 11:41am DULoxetine 60 mg delayed release oral capsule (20 sources) Serotonin and Norepinephrine Reuptake Inhibitor Start: 04-20-2019 take 1 capsule by mouth every twelve hours DULoxetine (CYMBALTA) 60 mg capsule 1 capsule q 12 HR. 0 04/20/2019 Active Start: 04-20-2019 take 1 capsule by mo [facility] twice daily Duloxetine (Cymbalta) 60 mg Capsule,Delayed Release(Dr/Ec) Active 60 MG PO Twice daily April 19, 2019 11:00pm Start: 04-20-2019 Duloxetine (Cy mbalta) 60 mg Capsule,Delayed Release(Dr/Ec) Active 30 MG PO Twice daily April 20, 2019 12:00am take 1 capsule by [facility] every twenty-four hours DULoxetine HCl 60 MG 1 capsule Orally Once a day Active Comment on above: 1 capsule q 12 HR. ibuprofen 400 mg oral tablet (10 sources) Nonsteroidal Anti-inflammatory Drug Start: 9 End: 3 take 400 mg by mouth every six hours Ibuprofen Discontinued 400 MG PO Q6H April 19, 2019 11:00pm September 23, 2023 11:37am insulin isophane, human 100 unt/ml injectable suspension (10 sources) Start: 9 End: 1 Insulin Nph Isoph U-100 Human (Novolin N Nph U-100 Insulin) 100 unit/mL Suspension Discontinued 0 .ROUTE .COMPLEX April 19, 2019 11:00pm February 26, 2021 4:38pm 65 units in pm and 40 units in am insulin lispro (HUMALOG KWIKPEN) 100 unit/mL (1 source) Start: 0 insulin lispro (HUMALOG KWIKPEN) 100 unit/mL Inject subcutaneously. 0 01/24/2020 Active Comment on above: Inject subcutaneousl y. insulin, regular, human 100 unt/ml injectable solution (10 sources) Insulin Start: 9 End: 3 Insulin Regular Human (Novolin R Regular U-100 Insuln) 100 unit/mL Solution Discontinued 0 .ROUTE .COMPLEX April 19, 2019 11:00pm September 23, 2023 11:42am 5 units in am 15 UNITS AT NOON 30 units in pm PER PT DOSAGE REPORT perphenazine 4 mg oral tablet (10 sources) Phenothiazine Start: 1 End: 1 take 4 mg by mouth twice daily Perphenazine Discontinued 4 MG PO Twice daily February 25, 2021 11:00pm May 22, 2021 4:19pm Problems Active Problems Problem Classification Problem Date Documented Date Episodic/Chronic Abdominal hernia (1 source) Unilateral inguinal hernia, without obstruction or gangrene, not specified as recurrent; Translations: [Unilateral inguinal hernia, without obstruction or gangrene, not specified as recurrent] Onset: 10-02-2023 Episodic Alcohol-related disorders (2 sources) History of alcohol abuse; Translations: [Alcohol abuse, in remission] Onset: 03-26-2023 Chronic Cardiac dysrhythmias (10 sources) Palpitations; Translations: [Palpitations] 02-26-2021 Episodic Diabetes mellitus with complications (11 sources) Hyperglycemia due to type 2 diabetes mellitus; Translations: [Type 2 diabetes mellitus with hyperglycemia] Chronic Diabetes mellitus without complication (12 sources) Type 2 diabetes mellitus; Translations: [Type 2 diabetes mellitus without complications] Chronic Diseases of mouth; excluding dental (1 source) Glossitis; Translations: [Glossitis] Episodic Disorders of lipid metabolism (1 source) Hyperlipidemia, unspecified; Translations: [Hyperlipidemia, unspecified] Onset: 04-21-2023 Chronic Esophageal disorders (18 sources) Gastroesophageal reflux disease; Translations: [Gastro-esophageal reflux disease without esophagitis] Onset: 07-23-2021 Resolved: 04-16-2022 Chronic Mycoses (3 sources) Infective laryngitis; Translations: [Other sites of candidiasis] Onset: 03-26-2023 Episodic Osteoarthritis (6 sources) Arthropathy of left shoulder; Translations: [Primary osteoarthritis, left shoulder] Chronic Other lower respiratory disease (11 sources) Nodule of lung; Translations: [Solitary pulmonary nodule] Episodic Other lower respiratory disease (10 sources) Solitary nodule of lung; Translations: [Solitary pulmonary nodule] 05-22-2021 Episodic Other nervous system disorders (6 sources) Chronic pain; Translations: [Other chronic pain] Chronic Other nervous system disorders (1 source) Spinal cord disease; Translations: [Disease of spinal cord, unspecified] Chronic Other nervous system disorders (1 source) Disease of spinal cord, unspecified Chronic Other nutritional; endocrine; and metabolic disorders (5 sources) Body mass index 40+ - severely obese; Translations: [Body mass index (BMI) 40.0-44.9, adult] Chronic Other nutritional; endocrine; and metabolic disorders (6 sources) Severe obesity; Translations: [Morbid (severe) obesity due to excess calories] Chronic Other upper respiratory disease (1 source) Hoarse; Translations: [Dysphonia] Episodic Residual codes; unclassified (11 sources) Obstructive sleep apnea syndrome; Translations: [Obstructive sleep apnea (adult) (pediatric)] Chronic Residual codes; unclassified (4 sources) Obstructive sleep apnea (adult) (pediatric); Translations: [Obstructive sleep apnea G47.33] Onset: 07-23-2021 Resolved: 04-16-2022 Chronic Spondylosis; intervertebral disc disorders; other back problems (20 sources) Disorder of lumbar disc; 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, lumbar region] Onset: 02-10-2023 Chronic Spondylosis; intervertebral disc disorders; other back problems (20 sources) Lumbago co-occurrent with right-side sciatica; Translations: [Lumbago with sciatica, right side] Onset: 07-29-2023 08-06-2023 Episodic Unclassified (1 source) Encounter for preprocedural laboratory examination; Translations: [Encounter for preprocedural laboratory examination] Onset: 09-23-2023 Unclassified (1 source) Other intervertebral disc degeneration, lumbar region; Translations: [Other intervertebral disc degeneration, lumbar region] Onset: 08-01-2023 Unclassified (1 source) Bilateral primary osteoarthritis of hip; Translations: [Bilateral primary osteoarthritis of hip] Onset: 11-06-2022 Past or Other Problems Problem Classification Problem Date Documented Da te Episodic/Chronic Immunizations and screening for infectious disease (1 source) Encounter for immunization Onset: 11-09-2021 Resolved: 11-09-2021 Episodic Other aftercare (6 sources) Long-term current use of insulin; Translations: [half-way (current) use of insulin] Episodic Other lower respiratory disease (5 sources) Solitary pulmonary nodule; Translations: [Lung nodule R91.1] Onset: 07-23-2021 Resolved: 04-16-2022 Episodic Other lower respiratory disease (1 source) Cough; Translations: [Chronic cough R05] Onset: 07-23-2021 Resolved: 07-23-2021 Episodic Other lower respiratory disease (1 source) Dyspnea, unspecified Onset: 09-06-2021 Resolved: 09-06-2021 Episodic Results Test Name Value Interpretation Reference Range Facility Basic Metabolic Panelon 09-27 Anion gap [Moles/Vol] 9.7 mmol/L Normal 6.0-15.0 [facility] Comment on above: Performed By: #### C BC, BMP ####[place] [id number] [facility] Calcium [Mass/Vol] 8.8 mg/dL Normal 8.6-10.3 [facility] Comment on above: Result Comment: PERF ORMED BY: [facility] [address] [place] [id number] PATHOLOGIST FOAM FABRICATOR CLEVE CANDELARIA M.D. Performed By: #### C BC, BMP ####[address] [address] [facility] Chloride [Moles/Vol] 100 mmol/L Normal 98-107 [facility] Comment on above: Performed By: #### C BC, BMP ####[place] [id number] [place] [address] [facility] CO2 [Moles/Vol] 33.8 mmol/L High 21.0-31.0 [facility] [place] Comment on above: Performed By: #### C BC, BMP ####[place] [id number] [facility] Creatinine [Mass/Vol] 0.71 mg/dL Normal 0.70-1.30 [facility] Comment on above: Performed By: #### C BC, BMP ####[place] [id number] [place] [address] [facility] GFR/1.73 sq M.predicted MDRD (S/P/Bld) [Vol rate/Area] mL/min/{1.73_m2} Normal [facility] Comment on above: Performed By: #### C AMAIRANI, BMP ####[place] [id number] [place] [id number] [facility] Glucose [Mass/Vol] 105 mg/dL High 70-100 [facility] Comment on above: Result Comment: [facility] Glucose Reference Range is dependent on time and content of last meal. Glucose of more than 200 mg/dL in a nonstressed, ambulatory subject supports the diagnosis of Diabetes Mellitus. ADA recommended reference range Performed By: #### C AMAIRANI, BMP ####[place] [id number] [place] [id number] [facility] Potassium [Moles/Vol] 4.5 mmol/L Normal 3.5-5.1 [facility] Comment on above: Performed By: #### C AMAIRANI, BMP ####[place] [id number] [facility] Sodium [Moles/Vol] 139 mmol/L Normal 136-145 [facility] Comment on above: Performed By: #### C AMAIRANI, BMP ####[place] [id number] [facility] Urea nitrogen [Mass/Vol] 18 mg/dL Normal 7-25 [facility] Comment on above: Performed By: #### C AMAIRANI, BMP ####[place] [id number] [facility] Basophils Auto (Bld) [#/Vol] Ordered By: Emmett Becker on 10-23-2023 Basophils (Bld) [#/Vol] 0.0 10*3/uL 0.0-0.2 [facility] Basophils/100 WBC Auto (Bld) Ordered By: Emmett Becker on 10-23-2023 Basophils/100 WBC (Bld) 0.8 % . F [facility] Calcium [Mass/volume] in Ser um or PlasmaOrdered By: Emmett Becker on 10-23-2023 Calcium [Mass/Vol] 8.8 mg/dL 8.6-10.3 [facility] Carbon dioxide, total [Moles /volume] in Serum or PlasmaOrdered By: Emmett Becker on 10-23-2023 CO2 [Moles/Vol] 33.8 mmol/L 21.0-31.0 [facility] [place] Chloride [Moles/volume] in S raffi or PlasmaOrdered By: Emmett Becker on 10-23-2023 Chloride [Moles/Vol] 100 mmol/L 98-107 [facility] Complete Blood Count Auto Di ffon 10-23-2023 Basophils (Bld) [#/Vol] 0.0 10*3/uL Normal 0.0-0.2 [facility] Comment on above: Result Comment: PERF ORMED BY: [facility] [address] [facility] [address] [address] PATHOLOGIST FOAM FABRICATOR CLEVE CANDELARIA M.D. Performed By: #### C BC, BMP ####[address] Basophils/100 WBC (Bld) 0.8 % Normal . [facility] Comment on above: Performed By: #### C BC, BMP ####[place] [id number] [facility] Eosinophils (Bld) [#/Vol] 0.2 10*3/uL Normal 0.0-0.45 [facility] Comment on above: Performed By: #### C BC, BMP ####[place] [id number] [facility] Eosinophils/100 WBC (Bld) 3.6 % Normal . [facility] Comment on above: Performed By: #### C BC, BMP ####[place] [id number] [facility] Erythrocyte distribution width (RBC) [Ratio] 14.3 % Normal 12.0-14.8 [facility] Comment on above: Performed By: #### C BC, BMP ####[address] Hematocrit (Bld) [Volume fraction] 48.1 % Normal 38.8-50.0 [facility] Comment on above: Performed By: #### C AMAIRANI, BMP ####[address] Hemoglobin (Bld) [Mass/Vol] 16.2 g/dL Normal 13.0-17.0 [facility] Comment on above: Performed By: #### C AMAIRANI, BMP ####[address] Lymphocytes (Bld) [#/Vol] 1.3 10*3/uL Normal 1.00-4.8 [facility] Comment on above: Performed By: #### C AMAIRANI, BMP ####[address] Lymphocytes/100 WBC (Bld) 26.8 % Normal . [facility] Comment on above: Performed By: #### C AMAIRANI, BMP ####[address] MCH (RBC) [Entitic mass] 32.4 pg Normal 27.5-35.2 [facility] Comment on above: Performed By: #### C AMAIRANI, BMP ####[address] MCV (RBC) [Entitic vol] 96.0 fL Normal 83.5-101 F [facility] Comment on above: Performed By: #### C AMAIRANI, BMP ####[address] Mean Corpuscular HGB Conc 33.8 g/dL Normal 32.5-35.6 [facility] Comment on above: Performed By: #### C AMAIRANI, BMP ####[address] Monocytes (Bld) [#/Vol] 0.5 10*3/uL Normal 0.0-0.8 [facility] Comment on above: Performed By: #### C AMAIRANI, BMP ####[facility] [place] [address] [facility] Monocytes/100 WBC (Bld) 9.4 % Normal . [facility] Comment on above: Performed By: #### C AMAIRANI, BMP ####[facility] [place] [address] [facility] Neutrophils (Bld) [#/Vol] 2.9 10*3/uL Normal 1.8-7.7 [facility] Comment on above: Performed By: #### C AMAIRANI, BMP ####[place] [address] [place] [address] [facility] Neutrophils/100 WBC (Bld) 59.4 % Normal . [facility] Comment on above: Performed By: #### C AMAIRANI, BMP ####[place] [address] [place] [address] [facility] NRBC% 0.1 /100{WBC} Normal 0-0.5 [facility] Comment on above: Performed By: #### C AMAIRANI, BMP ####[place] [id number] [place] [address] [facility] Platelet mean volume (Bld) [Entitic vol] 8.4 fL Normal 6.6-10.1 [facility] Comment on above: Performed By: #### C AMAIRANI, BMP ####[place] [id number] [place] [address] [facility] Platelets (Bld) [#/Vol] 173 10*3/uL Normal 150-450 [facility] Comment on above: Performed By: #### C AMAIRANI, BMP ####[id number] [place] [address] [facility] RBC (Bld) [#/Vol] 5.01 10*6/uL Normal 3.90-5.60 [facility] Comment on above: Performed By: #### C AMAIRANI, BMP ####[id number] [place] [address] [facility] WBC (Bld) [#/Vol] 4.9 10*3/uL Normal 4.1-10.5 [facility] Comment on above: Performed By: #### C BC, BMP ####[facility] [id number] [id number] [facility] Creatinine [Mass/volume] in Serum or PlasmaOrdered By: Emmett Becker on 10-23-2023 Creatinine [Mass/Vol] 0.71 mg/dL 0.70-1.30 [facility] Eosinophils Auto (Bld) [#/Vo l]Ordered By: Emmett Becker on 10-23-2023 Eosinophils (Bld) [#/Vol] 0.2 10*3/uL 0.0-0.45 [facility] Eosinophils/100 WBC Auto (Bl d)Ordered By: Emmett Becker on 10-23-2023 Eosinophils/100 WBC (Bld) 3.6 % . [facility] Erythrocyte distribution wid th Auto (RBC) [Ratio]Ordered By: Emmett Becker on 10-23-2023 Erythrocyte distribution width (RBC) [Ratio] 14.3 % 12.0-14.8 [facility] Glucose [Mass/volume] in Ser um or PlasmaOrdered By: Emmett Becker on 10-23-2023 Glucose [Mass/Vol] 105 mg/dL 70-100 [facility] Comment on above: ADA recommended refe rence rangeRandom Glucose Reference Range is dependent on time and content of last meal. Glucose of more than 200 mg/dL in a nonstressed, ambulatory subject supports the diagnosis of Diabetes Mellitus. Hematocrit Auto (Bld) [Volum e fraction]Ordered By: Emmett Becker on 10-23-2023 Hematocrit (Bld) [Volume fraction] 48.1 % 38.8-50.0 [facility] Hemoglobin [Mass/volume] in BloodOrdered By: Emmett Becker on 10-23-2023 Hemoglobin (Bld) [Mass/Vol] 16.2 g/dL 13.0-17.0 [facility] Leukocytes [#/volume] correc charanjit for nucleated erythrocytes in Blood by Automated counOrdered By: Emmett Becker on 10-23-2023 WBC corrected for nucl RBC Auto (Bld) [#/Vol] 4.9 10*3/uL 4.1-10.5 [facility] Lymphocytes Auto (Bld) [#/Vo l]Ordered By: Emmett Becker on 10-23-2023 Lymphocytes (Bld) [#/Vol] 1.3 10*3/uL 1.00-4.8 [facility] Lymphocytes/100 WBC Auto (Bl d)Ordered By: Emmett Becker on 10-23-2023 Lymphocytes/100 WBC (Bld) 26.8 % . [facility] MCH Auto (RBC) [Entitic mass ]Ordered By: Emmett Becker on 10-23-2023 MCH (RBC) [Entitic mass] 32.4 pg 27.5-35.2 [facility] MCHC Auto (RBC) [Mass/Vol]Or dered By: Emmett Becker on 10-23-2023 MCHC (RBC) [Mass/Vol] 33.8 g/dL 32.5-35.6 [facility] MCV Auto (RBC) [Entitic vol] Ordered By: Emmett Becker on 10-23-2023 MCV (RBC) [Entitic vol] 96.0 fL 83.5-101 [facility] Monocytes Auto (Bld) [#/Vol] Ordered By: Emmett Becker on 10-23-2023 Monocytes (Bld) [#/Vol] 0.5 10*3/uL 0.0-0.8 [facility] Monocytes/100 WBC Auto (Bld) Ordered By: Emmett Becker on 10-23-2023 Monocytes/100 WBC (Bld) 9.4 % . [facility] Neutrophils Auto (Bld) [#/Vo l]Ordered By: Emmett Becker on 10-23-2023 Neutrophils (Bld) [#/Vol] 2.9 10*3/uL 1.8-7.7 [facility] Neutrophils/100 WBC Auto (Bl d)Ordered By: Emmett Becker on 10-23-2023 Neutrophils/100 WBC (Bld) 59.4 % . [facility] No Panel InformationOrdered By: Emmett Becker on 10-23-2023 Estimated GFR (CKD-EPI) > 60.0 mL/Min [facility] Creatinine Clearance (Chem N/A [facility] Nucleated erythrocytes [Pres ence] in Blood by Automated countOrdered By: Emmett Becker on 10-23-2023 Nucleated RBC Auto Ql (Bld) 0.1 /100{WBC} 0-0.5 [facility] Platelet mean volume Auto (B ld) [Entitic vol]Ordered By: Emmett Becker on 10-23-2023 Platelet mean volume (Bld) [Entitic vol] 8.4 fL 6.6-10.1 [facility] Platelets Auto (Bld) [#/Vol] Ordered By: Emmett Becker on 10-23-2023 Platelets (Bld) [#/Vol] 173 10*3/uL 150-450 [facility] Potassium [Moles/volume] in Serum or PlasmaOrdered By: Emmett Becker on 10-23-2023 Potassium [Moles/Vol] 4.5 mmol/L 3.5-5.1 [facility] RBC Auto (Bld) [#/Vol]Ordere d By: Emmett Becker on 10-23-2023 RBC (Bld) [#/Vol] 5.01 10*6/uL 3.90-5.60 [facility] Serum or plasma anion gap de terminationOrdered By: Emmett Becker on 10-23-2023 Anion gap [Moles/Vol] 9.7 mmol/L 6.0-15.0 [facility] Sodium [Moles/volume] in Ser um or PlasmaOrdered By: Emmett Becker on 10-23-2023 Sodium [Moles/Vol] 139 mmol/L 136-145 [facility] Urea nitrogen [Mass/volume] in Serum or PlasmaOrdered By: Emmett Becker on 10-23-2023 Urea nitrogen [Mass/Vol] 18 mg/dL 7-25 [facility] WBC Auto (Bld) [#/Vol]Ordere d By: Emmett Becker on 10-23-2023 WBC (Bld) [#/Vol] 4.9 10*3/uL 4.1-10.5 [facility] Amphetamine Screen Ql (U)Ord ered By: Giuseppe Desouza on 10-02-2023 Amphetamines Ql (U) Negative Negative [facility] Barbiturates [Presence] in U rine by Screen methodOrdered By: Giuseppe Desouza on 10-02-2023 Barbiturates Screen Ql (U) Negative Negative [facility] Benzodiazepines Screen Ql (U )Ordered By: Giuseppe Desouza on 10-02-2023 Benzodiazepines Ql (U) Positive Negative [facility] Benzoylecgonine [Presence] i n Urine by Screen methodOrdered By: Giuseppe Desouza on 10-02-2023 Benzoylecgonine Screen Ql (U) Positive Negative [facility] Cannabinoids [Presence] in U rine by Screen methodOrdered By: Giuseppe Desouza on 10-02-2023 Cannabinoids Screen Ql (U) Positive Negative [facility] Comment on above: These are unconfirme d results and should not be used for legal purposes. Drug Cut-Off Concentration: AMPH 1000 ng/mL ZE 200 ng/mL DUANE 200 ng/mL COCM 300 ng/mL OP 300 ng/mL PCP 25 ng/mL THC 20 ng/mL Drug Screen,Urineon 10-02-20 23 Amphetamine Screen,Urine Negative Normal Negative [facility] Comment on above: Performed By: #### U RDS ####[id number] Barbiturate Screen,Urine Negative Normal Negative [facility] Comment on above: Performed By: #### U RDS ####[id number] [place] [address] [place] Benzodiazepines Screen,Urine Positive High Negative [facility] Comment on above: Performed By: #### U RDS ####[facility] [id number] Cannabinoid Screen,Urine Positive High Negative [facility] Comment on above: Result Comment: Thes e are unconfirmed results and should not be used for legal purposes. Drug Cut-Off Concentration: AMPH 1000 ng/mL ZE 200 ng/mL DUANE 200 ng/mL COCM 300 ng/mL OP 300 ng/mL PCP 25 ng/mL THC 20 ng/mL PERFORMED BY: [facility] [address] [place] [address] PATHOLOGIST FOAM FABRICATOR CLEVE CANDELARIA M.D. Performed By: #### U RDS ####[facility] [id number] [place] [address] [facility] Cocaine Screen,Urine Positive High Negative [facility] Comment on above: Performed By: #### U RDS ####[facility] [place] [address] [facility] Opiate Screen,Urine Negative Normal Negative [facility] Comment on above: Performed By: #### U RDS ####[facility] [id number] [place] [address] [facility] Phencyclidine Screen,Urine Negative Normal Negative [facility] Comment on above: Performed By: #### U RDS ####[facility] [place] [address] [facility] Glucose Glucometer (BldC) [M ass/Vol]Ordered By: Emmett Becker on 10-02-2023 Glucose [Mass/Vol] 290 mg/dL [facility] Comment on above: Random Glucose Refer ence Range is dependent on time and content of last meal. Glucose of more than 200 mg/dL in a nonstressed, ambulatory subject supports the diagnosis of Diabetes Mellitus. Glucose Poct Glucometerson 1 12-03-2022 Commemt1 Glu2: Cleaned Meter [facility] Comment on above: Result Comment: PERF ORMED BY: [facility] [address] [place] [address] PATHOLOGIST FOAM FABRICATOR CLEVE CANDELARIA M.D. Performed By: #### G LULS #### Point of Care testing , Glucose [Mass/Vol] 290 mg/dL Normal [facility] Comment on above: Result Comment: [place] Glucose Reference Range is dependent on time and content of last meal. Glucose of more than 200 mg/dL in a nonstressed, ambulatory subject supports the diagnosis of Diabetes Mellitus. Performed By: #### G LULS #### Point of Care testing , No Panel InformationOrdered By: Emmett Becker on 10-02-2023 Bedside Glucose Comment Glu2: cleaned meter [facility] Opiates [Presence] in Urine by Screen methodOrdered By: Giuseppe Dseouza on 10-02-2023 Opiates Screen Ql (U) Negative Negative [facility] Phencyclidine Screen Ql (U)O rdered By: Giuseppe Desouza on 10-02-2023 Phencyclidine Ql (U) Negative Negative [facility] POC Glucose Randomon 023 Glucose [Mass/Vol] 192 mg/dL High 70-99 [facility] Comment on above: Performed By: #### C [id number] #### [facility] [address] [place] [address] Glucose [Mass/Vol] 246 mg/dL High 70-99 [facility] Comment on above: Performed By: #### C [id number] #### [facility] [address] [place] [address] Basic Metabolic Panelon 08-28 Anion gap [Moles/Vol] 13.1 mmol/L Normal 6.0-15.0 [facility] Comment on above: Performed By: #### B MP, CBC #### [facility] [address] [place] [address] [place] Calcium [Mass/Vol] 9.3 mg/dL Normal 8.6-10.3 [facility] Comment on above: Result Comment: PERF ORMED BY: [place] [address] PATHOLOGIST FOAM FABRICATOR CLEVE CANDELARIA M.D. Performed By: #### B MP, CBC #### [facility] [address] [place] [address] [place] Chloride [Moles/Vol] 96 mmol/L Low 98-107 [facility] Comment on above: Performed By: #### B MP, CBC #### [facility] [address] [place] [address] [place] CO2 [Moles/Vol] 30.6 mmol/L Normal 21.0-31.0 [facility] Comment on above: Performed By: #### B MP, CBC #### [facility] [address] [place] [address] Creatinine [Mass/Vol] 1.01 mg/dL Normal 0.70-1.30 [facility] Comment on above: Performed By: #### B MP, CBC #### [place] [address] [place] GFR/1.73 sq M.predicted MDRD (S/P/Bld) [Vol rate/Area] mL/min/{1.73_m2} Normal [facility] Comment on above: Performed By: #### B MP, CBC #### [address] Glucose [Mass/Vol] 412 mg/dL High 70-100 [facility] Comment on above: Result Comment: [place] Glucose Reference Range is dependent on time and content of last meal. Glucose of more than 200 mg/dL in a nonstressed, ambulatory subject supports the diagnosis of Diabetes Mellitus. ADA recommended reference range Performed By: #### B MP, CBC #### [address] Potassium [Moles/Vol] 4.7 mmol/L Normal 3.5-5.1 [facility] Comment on above: Performed By: #### B MP, CBC #### [address] Sodium [Moles/Vol] 135 mmol/L Low 136-145 [facility] Comment on above: Performed By: #### B MP, CBC #### [address] Urea nitrogen [Mass/Vol] 28 mg/dL High 7-25 [facility] Comment on above: Performed By: #### B MP, CBC #### [place] [address] [place] Basophils Auto (Bld) [#/Vol] Ordered By: Emmett Becker on 09-23-2023 Basophils (Bld) [#/Vol] 0.1 10*3/uL 0.0-0.2 [facility] Basophils/100 WBC Auto (Bld) Ordered By: Emmett Becker on 09-23-2023 Basophils/100 WBC (Bld) 0.6 % . [facility] Calcium [Mass/volume] in Ser um or PlasmaOrdered By: Emmett Becker on 09-23-2023 Calcium [Mass/Vol] 9.3 mg/dL 8.6-10.3 [facility] Carbon dioxide, total [Moles /volume] in Serum or PlasmaOrdered By: Emmett Becker on 09-23-2023 CO2 [Moles/Vol] 30.6 mmol/L 21.0-31.0 [facility] [place] Chloride [Moles/volume] in S raffi or PlasmaOrdered By: Emmett Becker on 09-23-2023 Chloride [Moles/Vol] 96 mmol/L 98-107 [facility] Complete Blood Count Auto Di ffon 09-23-2023 Basophils (Bld) [#/Vol] 0.1 10*3/uL Normal 0.0-0.2 [facility] Comment on above: Result Comment: PERF ORMED BY: [place] [address] PATHOLOGIST FOAM FABRICATOR CLEVE CANDELARIA M.D. Performed By: #### B MP, CBC #### [address] Basophils/100 WBC (Bld) 0.6 % Normal . [facility] Comment on above: Performed By: #### B MP, CBC #### [facility] [address] [place] [address] [place] Eosinophils (Bld) [#/Vol] 0.0 10*3/uL Normal 0.0-0.45 [facility] Comment on above: Performed By: #### B MP, CBC #### [address] Eosinophils/100 WBC (Bld) 0.1 % Normal . [facility] Comment on above: Performed By: #### B MP, CBC #### [address] Erythrocyte distribution width (RBC) [Ratio] 13.9 % Normal 12.0-14.8 [facility] Comment on above: Performed By: #### B MP, CBC #### [address] Hematocrit (Bld) [Volume fraction] 47.2 % Normal 38.8-50.0 [facility] Comment on above: Performed By: #### B MP, CBC #### [address] Hemoglobin (Bld) [Mass/Vol] 15.7 g/dL Normal 13.0-17.0 [facility] Comment on above: Performed By: #### B MP, CBC #### [address] Lymphocytes (Bld) [#/Vol] 1.7 10*3/uL Normal 1.00-4.8 [facility] Comment on above: Performed By: #### B MP, CBC #### [address] Lymphocytes/100 WBC (Bld) 13.3 % Normal . [facility] Comment on above: Performed By: #### B MP, CBC #### [address] MCH (RBC) [Entitic mass] 32.3 pg Normal 27.5-35.2 [facility] Comment on above: Performed By: #### B MP, CBC #### [address] MCV (RBC) [Entitic vol] 96.9 fL Normal 83.5-101 [facility] Comment on above: Performed By: #### B MP, CBC #### [address] Mean Corpuscular HGB Conc 33.4 g/dL Normal 32.5-35.6 [facility] Comment on above: Performed By: #### B MP, CBC #### [address] Monocytes (Bld) [#/Vol] 0.6 10*3/uL Normal 0.0-0.8 [facility] Comment on above: Performed By: #### B MP, CBC #### [facility] [address] [place] [address] [place] Monocytes/100 WBC (Bld) 4.6 % Normal . [facility] Comment on above: Performed By: #### B MP, CBC #### [facility] [address] Neutrophils (Bld) [#/Vol] 10.1 10*3/uL High 1.8-7.7 [facility] Comment on above: Performed By: #### B MP, CBC #### [facility] [address] Neutrophils/100 WBC (Bld) 81.4 % Normal . [facility] Comment on above: Performed By: #### B MP, CBC #### [facility] [address] NRBC% 0.0 /100{WBC} Normal 0-0.5 [facility] Comment on above: Performed By: #### B MP, CBC #### [facility] [address] Platelet mean volume (Bld) [Entitic vol] 8.3 fL Normal 6.6-10.1 [facility] Comment on above: Performed By: #### B MP, CBC #### [facility] [address] [place] [address] [place] Platelets (Bld) [#/Vol] 203 10*3/uL Normal 150-450 [facility] Comment on above: Performed By: #### B MP, CBC #### [facility] [address] [place] [address] [place] RBC (Bld) [#/Vol] 4.87 10*6/uL Normal 3.90-5.60 [facility] Comment on above: Performed By: #### B MP, CBC #### [facility] [address] [place] [address] [place] WBC (Bld) [#/Vol] 12.4 10*3/uL High 4.1-10.5 [facility] Comment on above: Performed By: #### B MP, CBC #### [facility] [address] [place] [address] Creatinine [Mass/volume] in Serum or PlasmaOrdered By: Emmett Becker on 09-23-2023 Creatinine [Mass/Vol] 1.01 mg/dL 0.70-1.30 [facility] ECG 12 lead ECGon 09-23-2023 ECG 12 lead ECG [facility] [place] [address] [place] [address] Electrocardiograph Report Signed Patient: Koko Meier MR#: [id number] : 1960 Acct:[id number] Age/Sex: 62 / M ADM Date: 09/23/23 Loc: Room: Type: [facility] Attending Dr: Emmett Becker MD Ordering Provider: Emmett Becker MD Date of Service: 09/23/23 ECG/ECG 12 lead ECG: surgery 10/02 Copies to: Test Reason : Blood Pressure : / mmHG Vent. Rate : 099 BPM Atrial Rate : 099 BPM P-R Int : 190 ms QRS Dur : 086 ms QT Int : 332 ms P-R-T Axes : 075 009 053 degrees QTc Int : 426 ms Normal sinus rhythm Anteroseptal infarct (cited on or before 23-SEP-2023) Abnormal ECG When compared with ECG of 22-MAY-2021 17:17, QRS axis shifted right Confirmed by JOSEY MATUTE FACKIRSTIE ([id number]) on 09/23/2023 10:29:43 PM Referred By: OLEGARIO BECKER Electronically Signed By:KIRSTIE CERVANTES MD FACC Transcribed By: MUS Signed By Barron Cervantes MD 09/23/232228 Normal [facility] Eosinophils Auto (Bld) [#/Vo l]Ordered By: Emmett Becker on 09-23-2023 Eosinophils (Bld) [#/Vol] 0.0 10*3/uL 0.0-0.45 [facility] Eosinophils/100 WBC Auto (Bl d)Ordered By: Emmett Becker on 09-23-2023 Eosinophils/100 WBC (Bld) 0.1 % . [facility] Erythrocyte distribution wid th Auto (RBC) [Ratio]Ordered By: Emmett Becker on 09-23-2023 Erythrocyte distribution width (RBC) [Ratio] 13.9 % 12.0-14.8 [facility] Glucose [Mass/volume] in Ser um or PlasmaOrdered By: Emmett Becker on 09-23-2023 Glucose [Mass/Vol] 412 mg/dL 70-100 [facility] Comment on above: ADA recommended refe rence rangeRandom Glucose Reference Range is dependent on time and content of last meal. Glucose of more than 200 mg/dL in a nonstressed, ambulatory subject supports the diagnosis of Diabetes Mellitus. Hematocrit Auto (Bld) [Volum e fraction]Ordered By: Emmett Becker on 09-23-2023 Hematocrit (Bld) [Volume fraction] 47.2 % 38.8-50.0 [facility] Hemoglobin [Mass/volume] in BloodOrdered By: Emmett Becker on 09-23-2023 Hemoglobin (Bld) [Mass/Vol] 15.7 g/dL 13.0-17.0 [facility] Leukocytes [#/volume] correc charanjit for nucleated erythrocytes in Blood by Automated counOrdered By: Emmett Becker on 09-23-2023 WBC corrected for nucl RBC Auto (Bld) [#/Vol] 12.4 10*3/uL 4.1-10.5 [facility] Lymphocytes Auto (Bld) [#/Vo l]Ordered By: Emmett Becker on 09-23-2023 Lymphocytes (Bld) [#/Vol] 1.7 10*3/uL 1.00-4.8 [facility] Lymphocytes/100 WBC Auto (Bl d)Ordered By: Emmett Becker on 09-23-2023 Lymphocytes/100 WBC (Bld) 13.3 % . [facility] MCH Auto (RBC) [Entitic mass ]Ordered By: Emmett Becker on 09-23-2023 MCH (RBC) [Entitic mass] 32.3 pg 27.5-35.2 [facility] MCHC Auto (RBC) [Mass/Vol]Or dered By: Emmett Becker on 09-23-2023 MCHC (RBC) [Mass/Vol] 33.4 g/dL 32.5-35.6 [facility] MCV Auto (RBC) [Entitic vol] Ordered By: Emmett Becker on 09-23-2023 MCV (RBC) [Entitic vol] 96.9 fL 83.5-101 F [facility] Monocytes Auto (Bld) [#/Vol] Ordered By: Emmett Becker on 09-23-2023 Monocytes (Bld) [#/Vol] 0.6 10*3/uL 0.0-0.8 [facility] Monocytes/100 WBC Auto (Bld) Ordered By: Emmett Becker on 09-23-2023 Monocytes/100 WBC (Bld) 4.6 % . [facility] Neutrophils Auto (Bld) [#/Vo l]Ordered By: Emmett Becker on 09-23-2023 Neutrophils (Bld) [#/Vol] 10.1 10*3/uL 1.8-7.7 [facility] Neutrophils/100 WBC Auto (Bl d)Ordered By: Emmett Becker on 09-23-2023 Neutrophils/100 WBC (Bld) 81.4 % . [facility] No Panel InformationOrdered By: Emmett Becker on 09-23-2023 Estimated GFR (CKD-EPI) > 60.0 mL/Min [facility] Creatinine Clearance (Chem N/A [facility] Nucleated erythrocytes [Pres ence] in Blood by Automated countOrdered By: Emmett Becker on 09-23-2023 Nucleated RBC Auto Ql (Bld) 0.0 /100{WBC} 0-0.5 [facility] Platelet mean volume Auto (B ld) [Entitic vol]Ordered By: Emmett Becker on 09-23-2023 Platelet mean volume (Bld) [Entitic vol] 8.3 fL 6.6-10.1 [facility] Platelets Auto (Bld) [#/Vol] Ordered By: Emmett Becker on 09-23-2023 Platelets (Bld) [#/Vol] 203 10*3/uL 150-450 [facility] Potassium [Moles/volume] in Serum or PlasmaOrdered By: Emmett Becker on 09-23-2023 Potassium [Moles/Vol] 4.7 mmol/L 3.5-5.1 [facility] RBC Auto (Bld) [#/Vol]Ordere d By: Emmett Becker on 09-23-2023 RBC (Bld) [#/Vol] 4.87 10*6/uL 3.90-5.60 [facility] Serum or plasma anion gap de terminationOrdered By: Emmett Becker on 09-23-2023 Anion gap [Moles/Vol] 13.1 mmol/L 6.0-15.0 [facility] Sodium [Moles/volume] in Ser um or PlasmaOrdered By: Emmett Becker on 09-23-2023 Sodium [Moles/Vol] 135 mmol/L 136-145 [facility] Urea nitrogen [Mass/volume] in Serum or PlasmaOrdered By: Emmett Becker on 09-23-2023 Urea nitrogen [Mass/Vol] 28 mg/dL 7-25 [facility] WBC Auto (Bld) [#/Vol]Ordere d By: Emmett Becker on 09-23-2023 WBC (Bld) [#/Vol] 12.4 10*3/uL 4.1-10.5 [facility] CT ABDOMEN PELVIS W IV CONTR Ammon 08-19-2023 CT ABDOMEN PELVIS W IV CONTRAST Examination: CT ABDOMEN PELVIS W IV CONTRAST Indication: left lower abd pain. Change bowel habits Technique: Multiple serial axial images was performed through the abdomen and pelvis utilizing 100cc of Isovue 300. And the oral administration of contrast images were reconstructed in the axial and coronal and sagittal planes. Comparison: No comparison is available. Findings: The visualized base of the lungs show some minimal areas of atelectasis, scarring. There is a noncalcified nodule in the left lower lobe series 2 image 12 measuring approximately 8 mm. No pleural effusions. No pneumothoraces. The liver shows no focal parenchymal abnormalities. No intrahepatic bili dilatation. The spleen, pancreas, adrenals, are unremarkable The kidneys show no significant perinephric stranding. No nephrolithiasis. No hydronephrosis. On the delayed studies there is prompt filling of both left and right pelvic calyceal systems. Small portion of the right ureter and left ureters are opacified. The bladder shows no significant perivesicular stranding. The wall does not appear to be thickened. No bladder calculi. Surgical amaury/anastomotic sutures are seen in the region of the cecum. e. Correlate with patient surgical history. Large and small bowel show no sign of obstruction. The appendix is not visualized. No pericecal stranding. No diverticulitis. There is diastases of the anterior abdominal wall at the level of the umbilicus with associated ventral hernia containing mesenteric fat and small segment of small bowel. No radiographic findings to suggest incarceration. Small left inguinal hernia containing mesenteric fat. No free air. No free fluid. The visualized abdominal aorta is of normal size and caliber. No significant retroperitoneal adenopathy. There is been prior ORIF with pedicle screw and rods of the L3, L4 and L5 levels with associated interbody fusion and laminectomies. There is a spinal stimulator device within the left gluteal region and leads entering into the vertebral column. . IMPRESSION: 1. NONCALCIFIED NODULE IN THE LEFT LOWER LOBE.. FURTHER EVALUATION IS WARRANTED RECOMMEND CT SCAN OF THE CHEST. 2. THERE IS DIASTASES OF THE ANTERIOR ABDOMINAL WALL WITH ASSOCIATED VENTRAL HERNIA DESCRIBED ABOVE. OTHER FINDINGS DETAILED ABOVE All CT scans at this facility use dose modulation, iterative reconstruction, and/or weight based dosing when appropriate to reduce radiation dose to as low as reasonably achievable. ELECTRONICALLY SIGNED BY: Koko Valadez MD Normal Not Available XR cervical spine 5V*on 07-27 XR cervical spine 5V* [facility] [place] [address] [place] [address] XRay Report Signed Patient: Koko Meier MR#: [id number] : 1960 Acct:[id number] Age/Sex: 62 / M ADM Date: 08/11/23 Loc: [place] Room: Type: [facility] Attending Dr: Savanna Mcclain MD Copies to: Savanna Mcclain MD Ordering Provider: Savanna Mcclain MD Date of Service: 08/11/23 XR/XR cervical spine 5V*: CERVICAL AND THORACIC PAIN 5 views of thecervical spine HISTORY: Cervical spine pain with radiculopathy. COMPARISON: 02/10/2023 POSTOPERATIVE CHANGES: Stable hardware. Stable lower cervical spine and bony fusion changes. BONY ALIGNMENT: Stable bony alignment. Similar mild degenerative listhesis. FRACTURE: None DISC DEGENERATION: Similar extensive C3-4 C4-5 spondylosis with disc space narrowing and endplate spurring. FACETS: Unremarkable FORAMEN: Unremarkable DENS: Intact CRANIOCERVICAL JUNCTION: Unremarkable SOFT TISSUES: Unremarkable XR/XR cervical spine 5V* IMPRESSION: Similar degenerative postsurgical changes. Stable fracture of fixation plate. Impression dictated by: Koko Hernandez M.D.08/11/2023 5:00 PM Dictation Location: Basys Transcribed By: SHIRLEY 08/11/231699 Dictated By: Koko Hernandez DO 08/11/231656 Signed By: 08/11/231699 Normal [facility] XR thoracic spine 3V*on 07-27 XR thoracic spine 3V* [facility] [place] [address] [place] [address] XRay Report Signed Patient: Koko Meier MR#: [id number] : 1960 Acct:[id number] Age/Sex: 62 / M ADM Date: 08/11/23 Loc: [place] Room: Type: [facility] Attending Dr: Savanna Mcclain MD Copies to: Savanna Mcclain MD Ordering Provider: Savanna Mcclain MD Date of Service: 08/11/23 XR/XR thoracic spine 3V*: CERVICAL AND THORACIC PAIN 3 views of thoracic spine COMPARISON: 06/19/2022 HISTORY: Mid back pain posteriorly. The thoracic kyphosis is adequate. The disc spaces are maintained. Similar extensive thoracic spondylosis. Neurostimulator redemonstrated. No compression deformity identified The bony mineralization is adequate. No paraspinal abnormality seen. XR/XR thoracic spine 3V* IMPRESSION: Stable degenerative changes. No new findings. Impression dictated by: Koko Hernandez M.D.08/11/2023 5:01 PM Dictation Location: RADIO--12 Transcribed By: SHIRLEY 08/11/231700 Dictated By: Koko Hernandez DO 08/11/231699 Signed By: 08/11/231700 Normal [facility] XR lumbar spine 6V w bending on 08-01-2023 XR lumbar spine 6V w bending [facility] [place] [address] [place] [address] XRay Report Signed Patient: Koko Meier MR#: [id number] : 1960 Acct:[id number] Age/Sex: 62 / M ADM Date: 08/01/23 Loc: XD Room: Type: [facility] CLI Attending Dr: Josh Melvin DO Copies to: Josh Melvin DO Ordering Provider: Josh Melvin DO Date of Service: 08/01/23 XR/XR lumbar spine 6V w bending: LUMBAR DJD, RADICULOPATHY LUMBAR SPINE COMPLETE WITH FLEXION AND EXTENSION VIEWS - 8 views: CLINICAL HISTORY: Chronic low back pain with radiation down the legs, numbness, tingling and difficulty ambulating. Previous back surgeries. COMPARISON: 02/10/2023 AP, lateral (neutral, flexion and extension), both oblique and AP and lateral coned-down views of the lumbosacral junction were obtained. There is osteopenia. There is prior laminectomy and fusion with posterior rods, pedicle screws and interbody fusion devices extending from L3 through S1. The hardware appears intact and unchanged from the prior. A dorsal stimulator is again noted. There are no developing fractures. There is straightening of the normal lumbar lordosis. There is minimal anterolisthesis of L2 on L3. There is no significant change in alignment with flexion or extension. There is upper lumbar disc space narrowing. Endplate spurring is present throughout. There is facet disease. The sacroiliac joints are maintained. There are no paraspinal soft tissue abnormalities. Atherosclerotic plaque is present at the aorta and iliac arteries. XR/XR lumbar spine 6V w bending IMPRESSION: POSTOPERATIVE AND DEGENERATIVE CHANGES, SIMILAR TO THE PRIOR. Impression dictated by: Monika Eastman M.D.08/01/2023 1:06 PM Dictation Location: [id number]-10 Transcribed By: SHIRLEY 08/01/23 1306 Dictated By: Monika Eastman MD 08/01/23 1210 Signed By: 08/01/23 1306 Normal [facility] A1C with Estimated Average G alice 04-21-2023 Glucose [Mass/Vol] 197 mg/dL Normal [facility] Comment on above: Result Comment: PERF ORMED BY: [facility] [address] [place] [address] PATHOLOGIST FOAM FABRICATOR CLEVE CANDELARIA M.D. Performed By: #### A 1C WT eA, CMP, CBC, LIPID ####[id number] [place] [address] [facility] HbA1c (Bld) [Mass fraction] 8.5 % High 4.3-5.6 [facility] Comment on above: Result Comment: Incr eased risk for diabetes: 5.7 - 6.4 diabetes: >6.4 glycemic control for adults with diabetes: <7.0 Performed By: #### A 1C WTH eA, CMP, CBC, LIPID ####[facility] [place] [address] [facility] Alanine aminotransferase [En zymatic activity/volume] in Serum or PlasmaOrdered By: Josh Bunting on 04-21-2023 ALT [Catalytic activity/Vol] 19 U/L 7-52 [facility] Albumin [Mass/volume] in Ser um or Plasma by Bromocresol green (BCG) dye binding methoOrdered By: Josh Bunting on 04-21-2023 Albumin BCG dye [Mass/Vol] 4.2 g/dL 3.5-5.7 [facility] Alkaline phosphatase [Enzyma tic activity/volume] in Serum or PlasmaOrdered By: Josh Bunting on 04-21-2023 ALP [Catalytic activity/Vol] 67 U/L 34-104 [facility] Aspartate aminotransferase [ Enzymatic activity/volume] in Serum or PlasmaOrdered By: Josh Bunting on 04-21-2023 AST [Catalytic activity/Vol] 16 U/L 13-39 [facility] Basophils Auto (Bld) [#/Vol] Ordered By: Josh Bunting on 04-21-2023 Basophils (Bld) [#/Vol] 0.1 10*3/uL 0.0-0.2 [facility] Basophils/100 WBC Auto (Bld) Ordered By: Josh Bunting on 04-21-2023 Basophils/100 WBC (Bld) 0.9 % . [facility] Bilirubin.total [Mass/volume ] in Serum or PlasmaOrdered By: Josh Bunting on 04-21-2023 Bilirubin [Mass/Vol] 0.4 mg/dL 0.3-1.0 [facility] Calcium [Mass/volume] in Ser um or PlasmaOrdered By: Josh Bunting on 04-21-2023 Calcium [Mass/Vol] 9.3 mg/dL 8.6-10.3 [facility] Carbon dioxide, total [Moles /volume] in Serum or PlasmaOrdered By: Josh Bunting on 04-21-2023 CO2 [Moles/Vol] 30.3 mmol/L 21.0-31.0 [facility] [place] Chloride [Moles/volume] in S raffi or PlasmaOrdered By: Josh Bunting on 04-21-2023 Chloride [Moles/Vol] 99 mmol/L 98-107 [facility] Cholesterol [Mass/volume] in Serum or PlasmaOrdered By: Josh Bunting on 04-21-2023 Cholesterol [Mass/Vol] 300 mg/dL 140-200 [facility] Comment on above: Chol less than 200 m g/dl low riskChol 201-239 mg/dl borderline riskChol 240 mg/dl and greater high risk Cholesterol in LDL Calc [Mas s/Vol]Ordered By: Josh Bunting on 04-21-2023 Cholesterol in LDL [Mass/Vol] 207 mg/dL 0-100 [facility] Comment on above: LDL ATP III CLASSIFI CATIONLDL less than 100 mg/dL OptimalLDL 100-129 mg/dL Near or above optimalLDL 130-159 mg/dL Borderline highLDL 160-189 mg/dL HighLDL greater than 189 mg/dL Very high Cholesterol in VLDL Calc [Ma ss/Vol]Ordered By: Josh Bunting on 04-21-2023 Cholesterol in VLDL [Mass/Vol] 32 mg/dL [facility] Complete Blood Count Auto Di ffon 04-21-2023 Basophils (Bld) [#/Vol] 0.1 10*3/uL Normal 0.0-0.2 [facility] Comment on above: Result Comment: PERF ORMED BY: [place] [address] PATHOLOGIST FOAM FABRICATOR CLEVE CANDELARIA M.D. Performed By: #### A 1C WTH eA, CMP, CBC, LIPID #### [facility] [address] Basophils/100 WBC (Bld) 0.9 % Normal . [facility] Comment on above: Performed By: #### A 1C WTH eA, CMP, CBC, LIPID #### [facility] [address] Eosinophils (Bld) [#/Vol] 0.2 10*3/uL Normal 0.0-0.45 [facility] Comment on above: Performed By: #### A 1C WTH eA, CMP, CBC, LIPID #### [facility] [address] [place] [address] Eosinophils/100 WBC (Bld) 2.1 % Normal . [facility] Comment on above: Performed By: #### A 1C WTH eA, CMP, CBC, LIPID #### [facility] [address] [place] [address] Erythrocyte distribution width (RBC) [Ratio] 15.0 % High 12.0-14.8 [facility] Comment on above: Performed By: #### A 1C WTH eA, CMP, CBC, LIPID #### [facility] [address] [place] [address] Hematocrit (Bld) [Volume fraction] 48.8 % Normal 38.8-50.0 [facility] Comment on above: Performed By: #### A 1C WTH eA, CMP, CBC, LIPID #### [facility] [address] [place] [address] [place] Hemoglobin (Bld) [Mass/Vol] 16.7 g/dL Normal 13.0-17.0 [facility] Comment on above: Performed By: #### A 1C WTH eA, CMP, CBC, LIPID #### [address] Lymphocytes (Bld) [#/Vol] 1.9 10*3/uL Normal 1.00-4.8 [facility] Comment on above: Performed By: #### A 1C WTH eA, CMP, CBC, LIPID #### [address] Lymphocytes/100 WBC (Bld) 26.3 % Normal . [facility] Comment on above: Performed By: #### A 1C WTH eA, CMP, CBC, LIPID #### [address] MCH (RBC) [Entitic mass] 32.5 pg Normal 27.5-35.2 [facility] Comment on above: Performed By: #### A 1C WTH eA, CMP, CBC, LIPID #### [address] MCV (RBC) [Entitic vol] 95.2 fL Normal 83.5-101 [facility] Comment on above: Performed By: #### A 1C WTH eA, CMP, CBC, LIPID #### [address] Mean Corpuscular HGB Conc 34.2 g/dL Normal 32.5-35.6 [facility] Comment on above: Performed By: #### A 1C WTH eA, CMP, CBC, LIPID #### [address] Monocytes (Bld) [#/Vol] 0.4 10*3/uL Normal 0.0-0.8 [facility] Comment on above: Performed By: #### A 1C WTH eA, CMP, CBC, LIPID #### [address] Monocytes/100 WBC (Bld) 5.5 % Normal . [facility] Comment on above: Performed By: #### A 1C WTH eA, CMP, CBC, LIPID #### [address] [place] [address] [place] Neutrophils (Bld) [#/Vol] 4.6 10*3/uL Normal 1.8-7.7 [facility] Comment on above: Performed By: #### A 1C WTH eA, CMP, CBC, LIPID #### [facility] [address] Neutrophils/100 WBC (Bld) 65.2 % Normal . [facility] Comment on above: Performed By: #### A 1C WTH eA, CMP, CBC, LIPID #### [address] NRBC% 0.0 /100{WBC} Normal 0-0.5 [facility] Comment on above: Performed By: #### A 1C WTH eA, CMP, CBC, LIPID #### [address] Platelet mean volume (Bld) [Entitic vol] 8.6 fL Normal 6.6-10.1 [facility] Comment on above: Performed By: #### A 1C WTH eA, CMP, CBC, LIPID #### [address] Platelets (Bld) [#/Vol] 200 10*3/uL Normal 150-450 [facility] Comment on above: Performed By: #### A 1C WTH eA, CMP, CBC, LIPID #### [address] RBC (Bld) [#/Vol] 5.13 10*6/uL Normal 3.90-5.60 [facility] Comment on above: Performed By: #### A 1C WTH eA, CMP, CBC, LIPID #### [place] [address] [place] WBC (Bld) [#/Vol] 7.1 10*3/uL Normal 4.1-10.5 [facility] Comment on above: Performed By: #### A 1C WTH eA, CMP, CBC, LIPID #### [place] [address] [facility] Comprehensive Metabolic Pane brennen 04-21-2023 Albumin [Mass/Vol] 4.2 g/dL Normal 3.5-5.7 [facility] Comment on above: Order Comment: PT FA STED 12 HOURS Performed By: #### A 1C WTH eA, CMP, CBC, LIPID ####[address] [place] [address] [facility] Albumin/Globulin [Mass ratio] 1.9 {ratio} Normal [facility] Comment on above: Order Comment: PT FA STED 12 HOURS Performed By: #### A 1C WTH eA, CMP, CBC, LIPID ####[address] [place] [address] [facility] ALP [Catalytic activity/Vol] 67 U/L Normal 34-104 [facility] Comment on above: Order Comment: PT FA STED 12 HOURS Performed By: #### A 1C WTH eA, CMP, CBC, LIPID ####[address] [place] [address] [facility] ALT [Catalytic activity/Vol] 19 U/L Normal 7-52 [facility] Comment on above: Order Comment: PT FA STED 12 HOURS Performed By: #### A 1C WTH eA, CMP, CBC, LIPID ####[address] [place] [address] [facility] Anion gap [Moles/Vol] 11.3 mmol/L Normal 6.0-15.0 [facility] Comment on above: Order Comment: PT FA STED 12 HOURS Performed By: #### A 1C WTH eA, CMP, CBC, LIPID ####[address] [place] [address] [facility] AST [Catalytic activity/Vol] 16 U/L Normal 13-39 [facility] Comment on above: Order Comment: PT FA STED 12 HOURS Performed By: #### A 1C WTH eA, CMP, CBC, LIPID ####[address] [address] [facility] Bilirubin [Mass/Vol] 0.4 mg/dL Normal 0.3-1.0 [facility] Comment on above: Order Comment: PT FA STED 12 HOURS Performed By: #### A 1C WTH eA, CMP, CBC, LIPID ####[id number] [facility] Calcium [Mass/Vol] 9.3 mg/dL Normal 8.6-10.3 [facility] Comment on above: Order Comment: PT FA STED 12 HOURS Performed By: #### A 1C WTH eA, CMP, CBC, LIPID ####[address] Chloride [Moles/Vol] 99 mmol/L Normal 98-107 [facility] Comment on above: Order Comment: PT FA STED 12 HOURS Performed By: #### A 1C WTH eA, CMP, CBC, LIPID ####[address] CO2 [Moles/Vol] 30.3 mmol/L Normal 21.0-31.0 [facility] [place] Comment on above: Order Comment: PT FA STED 12 HOURS Performed By: #### A 1C WTH eA, CMP, CBC, LIPID ####[address] Creatinine [Mass/Vol] 0.90 mg/dL Normal 0.70-1.30 [facility] Comment on above: Order Comment: PT FA STED 12 HOURS Performed By: #### A 1C WTH eA, CMP, CBC, LIPID ####[address] GFR/1.73 sq M.predicted MDRD (S/P/Bld) [Vol rate/Area] mL/min/{1.73_m2} [facility] Comment on above: Order Comment: PT FA STED 12 HOURS Performed By: #### A 1C WTH eA, CMP, CBC, LIPID ####[id number] [facility] Globulin (S) [Mass/Vol] 2.2 g/dL Normal [facility] Comment on above: Order Comment: PT FA STED 12 HOURS Performed By: #### A 1C WTH eA, CMP, CBC, LIPID ####[address] [place] [address] [facility] Glucose [Mass/Vol] 149 mg/dL High 70-100 [facility] Comment on above: Order Comment: PT FA STED 12 HOURS Result Comment: [place] Glucose Reference Range is dependent on time and content of last meal. Glucose of more than 200 mg/dL in a nonstressed, ambulatory subject supports the diagnosis of Diabetes Mellitus. ADA recommended reference range Performed By: #### A 1C WTH eA, CMP, CBC, LIPID ####[id number] [place] [address] [facility] Potassium [Moles/Vol] 4.6 mmol/L Normal 3.5-5.1 [facility] Comment on above: Order Comment: PT FA STED 12 HOURS Performed By: #### A 1C WTH eA, CMP, CBC, LIPID ####[id number] [place] [id number] [facility] Protein [Mass/Vol] 6.4 g/dL Normal 6.4-8.9 [facility] Comment on above: Order Comment: PT FA STED 12 HOURS Performed By: #### A 1C WTH eA, CMP, CBC, LIPID ####[address] [place] [address] [facility] Sodium [Moles/Vol] 136 mmol/L Normal 136-145 [facility] Comment on above: Order Comment: PT FA STED 12 HOURS Performed By: #### A 1C WTH eA, CMP, CBC, LIPID ####[address] [address] [facility] Urea nitrogen [Mass/Vol] 25 mg/dL Normal 7-25 [facility] Comment on above: Order Comment: PT FA STED 12 HOURS Performed By: #### A 1C WTH eA, CMP, CBC, LIPID ####[id number] [place] [address] [place] Creatinine [Mass/volume] in Serum or PlasmaOrdered By: Josh Melvin on 04-21-2023 Creatinine [Mass/Vol] 0.90 mg/dL 0.70-1.30 [facility] Eosinophils Auto (Bld) [#/Vo l]Ordered By: Josh Bunting on 04-21-2023 Eosinophils (Bld) [#/Vol] 0.2 10*3/uL 0.0-0.45 [facility] Eosinophils/100 WBC Auto (Bl d)Ordered By: Josh Bunting on 04-21-2023 Eosinophils/100 WBC (Bld) 2.1 % . [facility] Erythrocyte distribution wid th Auto (RBC) [Ratio]Ordered By: Josh Bunting on 04-21-2023 Erythrocyte distribution width (RBC) [Ratio] 15.0 % 12.0-14.8 [facility] Globulin Calc (S) [Mass/Vol] Ordered By: Josh Bunjayleen on 04-21-2023 Globulin (S) [Mass/Vol] 2.2 g/dL [facility] Glucose [Mass/volume] in Ser um or PlasmaOrdered By: Josh Melvin on 04-21-2023 Glucose [Mass/Vol] 149 mg/dL 70-100 [facility] Comment on above: ADA recommended refe rence rangeRandom Glucose Reference Range is dependent on time and content of last meal. Glucose of more than 200 mg/dL in a nonstressed, ambulatory subject supports the diagnosis of Diabetes Mellitus. Glucose mean value [Mass/vol ume] in Blood Estimated from glycated hemoglobinOrdered By: Josh Melvin on 04-21-2023 Average glucose Estimated from glycated hemoglobin (Bld) [Mass/Vol] 197 mg/dL [facility] Hematocrit Auto (Bld) [Volum e fraction]Ordered By: Josh Bunjayleen on 04-21-2023 Hematocrit (Bld) [Volume fraction] 48.8 % 38.8-50.0 [facility] Hemoglobin A1c percentageOrd ered By: Josh Melvin on 04-21-2023 HbA1c (Bld) [Mass fraction] 8.5 % 4.3-5.6 [facility] Comment on above: Increased risk for d iabetes: 5.7 - 6.4diabetes: >6.4glycemic control for adults with diabetes: <7.0 Hemoglobin [Mass/volume] in BloodOrdered By: Josh Olegraio on 04-21-2023 Hemoglobin (Bld) [Mass/Vol] 16.7 g/dL 13.0-17.0 [facility] Leukocytes [#/volume] correc charanjit for nucleated erythrocytes in Blood by Automated counOrdered By: Josh Olegario on 04-21-2023 WBC corrected for nucl RBC Auto (Bld) [#/Vol] 7.1 10*3/uL 4.1-10.5 [facility] Lipid Panelon 04-21-2023 Cholesterol [Mass/Vol] 300 mg/dL High 140-200 [facility] Comment on above: Order Comment: PT FA STED 12 HOURS Result Comment: Chol less than 200 mg/dl low risk Chol 201-239 mg/dl borderline risk Chol 240 mg/dl and greater high risk Performed By: #### A 1C WT eA, CMP, CBC, LIPID ####[facility] [id number] [place] [address] [facility] Cholesterol in HDL [Mass/Vol] 61 mg/dL Normal 23-92 [facility] Comment on above: Order Comment: PT FA STED 12 HOURS Result Comment: HDL CHOL ATP-III CLASSIFICATION Cardiovascular Risk HDL > or equal to 60 mg/dL LOW HDL < 40 mg/dL HIGH Performed By: #### A 1C WT eA, CMP, CBC, LIPID ####[facility] [id number] [place] [address] [facility] Cholesterol.total/Genevieve sterol in HDL [Mass ratio] 4.9 {ratio} Normal <5.0 [facility] Comment on above: Order Comment: PT FA STED 12 HOURS Result Comment: PERF ORMED BY: [facility] [address] [place] [address] PATHOLOGIST FOAM FABRICATOR CLEVE CANDELARIA M.D. Performed By: #### A 1C WT eA, CMP, CBC, LIPID ####[facility] [id number] [place] [id number] [facility] LDL Cholesterol,Calculated 207 mg/dL High 0-100 [facility] Comment on above: Order Comment: PT FA STED 12 HOURS Result Comment: LDL ATP III CLASSIFICATION LDL less than 100 mg/dL Optimal LDL 100-129 mg/dL Near or above optimal LDL 130-159 mg/dL Borderline high LDL 160-189 mg/dL High LDL greater than 189 mg/dL Very high Performed By: #### A 1C WT Nico, CMP, CBC, LIPID ####[facility] [id number] Triglyceride w/Reflex 162 mg/dL High 0-149 [facility] Comment on above: Order Comment: PT FA STED 12 HOURS Result Comment: TRIG ATP III CLASSIFICATION TRIG less than 150 mg/dL Normal TRIG 150-199 mg/dL Borderline high TRIG 200-500 mg/dL High TRIG greater than 500 mg/dL Very high Standard traceable to the Center for Disease Conrtrol and Prevention (CDC) test method. Performed By: #### A 1C VENANCIO eA, CMP, CBC, LIPID ####[facility] VLDL CHOLESTEROL 32 mg/dL Normal [facility] [place] Comment on above: Order Comment: PT FA STED 12 HOURS Performed By: #### A 1C [facility] Nico, CMP, CBC, LIPID ####[facility] Lymphocytes Auto (Bld) [#/Vo l]Ordered By: Josh Bunting on 04-21-2023 Lymphocytes (Bld) [#/Vol] 1.9 10*3/uL 1.00-4.8 [facility] Lymphocytes/100 WBC Auto (Bl d)Ordered By: Josh Bunting on 04-21-2023 Lymphocytes/100 WBC (Bld) 26.3 % . [facility] MCH Auto (RBC) [Entitic mass ]Ordered By: Josh Bunting on 04-21-2023 MCH (RBC) [Entitic mass] 32.5 pg 27.5-35.2 [facility] MCHC Auto (RBC) [Mass/Vol]Or dered By: Josh Bunting on 04-21-2023 MCHC (RBC) [Mass/Vol] 34.2 g/dL 32.5-35.6 [facility] MCV Auto (RBC) [Entitic vol] Ordered By: Josh Bunting on 04-21-2023 MCV (RBC) [Entitic vol] 95.2 fL 83.5-101 [facility] Monocytes Auto (Bld) [#/Vol] Ordered By: Josh Bunting on 04-21-2023 Monocytes (Bld) [#/Vol] 0.4 10*3/uL 0.0-0.8 [facility] Monocytes/100 WBC Auto (Bld) Ordered By: Josh Bunting on 04-21-2023 Monocytes/100 WBC (Bld) 5.5 % . [facility] Neutrophils Auto (Bld) [#/Vo l]Ordered By: Josh Bunting on 04-21-2023 Neutrophils (Bld) [#/Vol] 4.6 10*3/uL 1.8-7.7 [facility] Neutrophils/100 WBC Auto (Bl d)Ordered By: Josh Bunting on 04-21-2023 Neutrophils/100 WBC (Bld) 65.2 % . [facility] No Panel InformationOrdered By: Josh Bunting on 04-21-2023 Estimated GFR (CKD-EPI) > 60.0 mL/Min [facility] Creatinine Clearance (Chem N/A [facility] Nucleated erythrocytes [Pres ence] in Blood by Automated countOrdered By: Josh Bunting on 04-21-2023 Nucleated RBC Auto Ql (Bld) 0.0 /100{WBC} 0-0.5 [facility] Platelet mean volume Auto (B ld) [Entitic vol]Ordered By: Josh Bunting on 04-21-2023 Platelet mean volume (Bld) [Entitic vol] 8.6 fL 6.6-10.1 [facility] Platelets Auto (Bld) [#/Vol] Ordered By: Josh Bunting on 04-21-2023 Platelets (Bld) [#/Vol] 200 10*3/uL 150-450 [facility] Potassium [Moles/volume] in Serum or PlasmaOrdered By: Josh Bunting on 04-21-2023 Potassium [Moles/Vol] 4.6 mmol/L 3.5-5.1 [facility] Protein [Mass/volume] in Ser um or PlasmaOrdered By: Josh Bunting on 04-21-2023 Protein [Mass/Vol] 6.4 g/dL 6.4-8.9 [facility] RBC Auto (Bld) [#/Vol]Ordere d By: Josh Bunting on 04-21-2023 RBC (Bld) [#/Vol] 5.13 10*6/uL 3.90-5.60 [facility] Serum or plasma albumin/glob ulin mass ratioOrdered By: Josh Bunting on 04-21-2023 Albumin/Globulin [Mass ratio] 1.9 {ratio} [facility] Serum or plasma anion gap de terminationOrdered By: Josh Bunting on 04-21-2023 Anion gap [Moles/Vol] 11.3 mmol/L 6.0-15.0 [facility] Serum or plasma high density lipoprotein (HDL) cholesterol measurementOrdered By: Josh Bunting on 04-21-2023 Cholesterol in HDL [Mass/Vol] 61 mg/dL 23-92 [facility] Comment on above: HDL CHOL ATP-III CLA SSIFICATION Cardiovascular RiskHDL > or equal to 60 mg/dL LOWHDL < 40 mg/dL HIGH Serum or plasma total choles terol/high density lipoprotein (HDL) cholesterol mass ratOrdered By: Josh Bunting on 04-21-2023 Cholesterol.total/Genevieve sterol in HDL [Mass ratio] 4.9 {ratio} <5.0 [facility] Sodium [Moles/volume] in Ser um or PlasmaOrdered By: Josh Bunting on 04-21-2023 Sodium [Moles/Vol] 136 mmol/L 136-145 [facility] Triglyceride [Mass/volume] i n Serum or PlasmaOrdered By: Josh Bunting on 04-21-2023 Triglyceride [Mass/Vol] 162 mg/dL 0-149 [facility] Comment on above: TRIG ATP III CLASSIF ICATIONTRIG less than 150 mg/dL NormalTRIG 150-199 mg/dL Borderline highTRIG 200-500 mg/dL High TRIG greater than 500 mg/dL Very highStandard traceable to the Center for Disease Conrtrol and Prevention (CDC) test method. Urea nitrogen [Mass/volume] in Serum or PlasmaOrdered By: Josh Bunting on 04-21-2023 Urea nitrogen [Mass/Vol] 25 mg/dL 05-20 [facility] WBC Auto (Bld) [#/Vol]Ordere d By: Josh Melvin on 04-21-2023 WBC (Bld) [#/Vol] 7.1 10*3/uL 4.1-10.5 [facility] CNPNon 04-10-2023 CNPN Telephone (OTOLCC) NIYAH MEIER ([id number]) 1960 M Date Time Provider Department 04/10/23 [facility] During your visit today, we recorded the following information about you: Kimberli Couch RN 04/10/2023 9:36 AM Signed Patient calling in to office. Verified by name and . Patient states that tomorrow is his last day of Diflucan for laryngeal candidiasis. He is calling to report that he is feeling much better. He states this is the best I've felt in 2 years . He reports that oral symptoms have improved, though he does continue to experience some gargly voice. Denies pain in throat. He states he is eating without difficulty now as well, which was an issue prior to medication. He is very appreciative of the help he has received. Advised patient if symptoms start to return after completion of medication tomorrow, to call back to office. Verbalizes understanding. Grisel De Leon MA 04/11/2023 11:11 AM Signed Spoke to patient Verbalized understanding If he has any other concerns he will call the office back. Allergies As of Date: 04/10/2023 (No Known Allergies) Date Reviewed: 03/26/2023 Reviewed by: Olive Hui LPN - Fully Assessed Reason for Visit: Patient Update [1234] Prescriptions as of 04/15/2023 - busPIRone HCl 30 mg tablet TAKE 1 TABLET BY MOUTH THREE TIMES DAILY FOR ANXIETY - celecoxib (CELEBREX) 200 mg capsule take 1 capsule by mouth twice a day Oral for 28 Days - DULoxetine (CYMBALTA) 60 mg capsule 1 capsule q 12 HR. - gabapentin (NEURONTIN) 600 mg tablet Take 1 capsule by mouth. - metFORMIN (GLUCOPHAGE) 1,000 mg tablet Take 1,000 mg by mouth. - empagliflozin (JARDIANCE) 10 mg tablet Take 10 mg by mouth. - insulin lispro (HUMALOG KWIKPEN) 100 unit/mL Inject subcutaneously. - lisinopril-hydroCHLOR Othiazide (ZESTORETIC) 10-12.5 mg per tablet 1 (one) time each day at the same time. - cyclobenzaprine (FLEXERIL) 10 mg tablet Take 10 mg by mouth three times daily. - hydrOXYzine pamoate (VISTARIL) 25 mg capsule TAKE 1 TO 2 CAPSULES BY MOUTH EVERY 6 HOURS NEEDED FOR ANXIETY Problem List As Of Date: 04/10/2023 (None) Encounter Status:Closed by KIMBERLI COUCH [facility] Office Visit (OT[facility] ) NIYAH MEIER ([id number]) 1960 M Date Time Provider Department 03/26/23 11:20 AM DONNY PERALTA ANU During your visit today, we recorded the following information about you: Pulse Respiration 88/minute 17/minute Donny Peralta APRN.MACHINE TESTER 03/26/2023 4:15 PM Signed Mr. Meier is a 62 year old male who comes in for evaluation of oral lesion. Consultation requested by Dr. Josh Mlevin DO. for an opinion regarding oral lesion. My final recommendations will be communicated back to the requesting physician by way of shared Medical record or letter to requesting physician via US mail. . Several years ago he had neck surgery and his voice chagned. In the past 2 years he has had much more difficutly with his voice. He has has issues with pain in the left side of the back of his throat for the past 9 months. He states he has a white and red streaked area in the back to the tonsil area on the left. He has some metallic taste. He has had irritation of the tongue which he describes as burning which is worse when he eats. He has been using some peroxide mouth wash. He was given some magic mouth wash which may have helped a little but the problem quickly recurred. He has a long marijuana smoking history since the 1969's. He quit smoking about 6 year ago. He smoked 1.5 ppd cigarettes for about 25 years. He denies any chewing tobacco. He does drink alcohol about 1-2 drinks a month but he has a history of heavy alcohol use prior to 2004. He denies any other significant head or neck complaints at this time. Past history : No past medical history on file. Current medication: No current outpatient medications on file. No current facility-administered medications for this visit. Allergies: ALLERGIES Not on File Social history: Family history: No family history on file. There are no exam notes on file for this visit. Physical exam: General Appearance: 62 year old male is alert, oriented, not in acute distress. Hearing is grossly normal, voice is clear. There is no tenderness with percussion over the paranasal sinuses. Eyes: PEERLA, extraocular movements are full. Nose: Clean, septum is straight. There are no polyps. There is no discharge. Oropharynx: Patient has upper denture. There is significant evidence of oral Sylvia on buccal mucosa, lingual surface, soft palate, and and tonsillar beds. Tongue is extremely inflamed, fissured, and beefy red.. Gag reflex is intact. Nasopharynx: Visualization is limited. Hypopharynx: Visualization is limited. Neck: No masses palpated. Thyroid is not enlarged. Trachea is in the midline. Ears: Both ear canals are clean. Both TMs are intact and mobile. Impression: Glossitis and oral irritation secondary to significant candidal infection. Throat discomfort and hoarseness of voice exact etiology unclear. Plan of management: I will perform fiberoptic laryngoscopy and discuss further management options with the patient. Procedure: After the procedure was explained to the patient and patient agreed to have the procedure done 1% Shan-Synephrine and 4% Xylocaine was sprayed to both nasal cavities. Fiberoptic scope was inserted through the right nasal airway. Right nasal airway was normal. Nasopharynx was normal. Hypopharyngeal exam revealed significant evidence of Sylvia on the laryngeal surface as well as epiglottis and base of tongue. There is severe mucosal thickening in the posterior commissure with hyperemia. Patient is using false cords for phonation. Findings were explained to the patient. Aggressive treatment of his oral Sylvia was discussed with the patient. Patient has not had any recent liver enzyme testing and has strong history of alcohol abuse. He will have CMP drawn today to ensure he is safe to pursue oral Diflucan along with clotrimazole bud or 2 weeks. He will have close follow-up in 6 weeks time or sooner should the be further problems. Patient's will call with an update on his oral irritation in approximately 2 to 3 weeks time. 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 Normal [facility] Comprehensive metabolic 2000 panelon 03-26-2023 Albumin [Mass/Vol] 4.4 g/dL Normal 3.9-4.9 [facility] Comment on above: Order Comment: Speci men Type: BLOOD SPECIMEN Ordering Facility: [facility] Address: [address] [place] [id number] Performed By: #### 2 4323-8 #### [facility] CLIA [id number] [address] [place] [address] [place] ALP [Catalytic activity/Vol] 90 U/L Normal 38-113 [facility] Comment on above: Order Comment: Speci men Type: BLOOD SPECIMEN Ordering Facility: [facility] Address: [address] [place] [address] Performed By: #### 2 4323-8 #### [facility] CLIA [id number] [address] [place] [address] [place] ALT [Catalytic activity/Vol] 22 U/L Normal 10-54 [facility] Comment on above: Order Comment: Speci men Type: BLOOD SPECIMEN Ordering Facility: [facility] Address: [address] [place] [address] Performed By: #### 2 4323-8 #### [facility] CLIA [id number] [address] [place] [address] [place] Anion gap [Moles/Vol] 11 mmol/L Normal 9-18 [facility] Comment on above: Order Comment: Speci men Type: BLOOD SPECIMEN Ordering Facility: [facility] Address: [address] [place], [place] [id number] Performed By: #### 2 4323-8 #### [facility] CLIA [id number] [address] [place] [address] [place] AST [Catalytic activity/Vol] 23 U/L Normal 14-40 [facility] Comment on above: Order Comment: Speci men Type: BLOOD SPECIMEN Ordering Facility: [facility] Address: [address] [place], [place] [id number] Performed By: #### 2 4323-8 #### [facility] CLIA [id number] [address] [place] [address] [place] Bilirubin [Mass/Vol] 0.4 mg/dL Normal 0.2-1.3 [facility] Comment on above: Order Comment: Speci men Type: BLOOD SPECIMEN Ordering Facility: [facility] Address: [address] Performed By: #### 2 4323-8 #### [facility] CLIA [id number] [address] [place] [address] [place] Calcium [Mass/Vol] 9.6 mg/dL Normal 8.5-10.2 [facility] Comment on above: Order Comment: Speci men Type: BLOOD SPECIMEN Ordering Facility: [facility] Address: [address] Performed By: #### 2 4323-8 #### [facility] CLIA [id number] [address] [place] [address] [place] Chloride [Moles/Vol] 97 mmol/L Normal 97-105 [facility] Comment on above: Order Comment: Speci men Type: BLOOD SPECIMEN Ordering Facility: [facility] Address: [address] Performed By: #### 2 4323-8 #### [facility] CLIA [id number] [address] [place] [address] [place] CO2 [Moles/Vol] 27 mmol/L Normal 22-30 [facility] Comment on above: Order Comment: Speci men Type: BLOOD SPECIMEN Ordering Facility: [facility] Address: [address] Performed By: #### 2 4323-8 #### [facility] CLIA [id number] [address] [place] [id number] [place] Creatinine [Mass/Vol] 0.99 mg/dL Normal 0.73-1.22 [facility] Comment on above: Order Comment: Speci men Type: BLOOD SPECIMEN Ordering Facility: [facility] Address: [address] Performed By: #### 2 4323-8 #### [facility] CLIA [id number] [address] [place] [address] [place] ESTIMATED GLOMERULAR FILTRATION RATE 85 mL/min/1.73m??? Normal >=60 [facility] Comment on above: Order Comment: Ilana guillen Type: BLOOD SPECIMEN Ordering Facility: [facility] Address: [address] [place] [address] Result Comment: Neha mated Glomerular Filtration Rate (eGFR) is calculated using the 2020 CKD-EPI creatinine equation. This equation utilizes serum creatinine, sex, and age as parameters. The creatinine assay has traceable calibration to isotope dilution-mass spectrometry. Refer to KDIGO guidelines for clinical interpretation. In patients with unstable renal function, e.g. those with acute kidney injury, the eGFR may not accurately reflect actual GFR. Performed By: #### 2 4323-8 #### [facility] CLIA [id number] [address] [place] [address] [place] Glucose [Mass/Vol] 85 mg/dL Normal 74-99 [facility] Comment on above: Order Comment: Ilana guillen Type: BLOOD SPECIMEN Ordering Facility: [facility] Address: [address] [place] [address] Result Comment: The [place] Diabetes Association (ADA) provides guidance for cutoff values for fasting glucose and random glucose. The ADA defines fasting as no caloric intake for at least 8 hours. Fasting plasma glucose results between 100 to 125 mg/dL indicate increased risk for diabetes (prediabetes). Fasting plasma glucose results greater than or equal to 126 mg/dL meet the criteria for diagnosis of diabetes. In the absence of unequivocal hyperglycemia, results should be confirmed by repeat testing. In a patient with classic symptoms of hyperglycemia or hyperglycemic crisis, random plasma glucose results greater than or equal to 200 mg/dL meet the criteria for diagnosis of diabetes. Reference: Standards of Medical Care in Diabetes 2016, [place] [employer] Association. Diabetes Care. 2016.39(Suppl 1). Performed By: #### 2 4323-8 #### [facility] CLIA [id number] [address] [place] [address] [place] Potassium [Moles/Vol] 4.5 mmol/L Normal 3.7-5.1 [facility] Comment on above: Order Comment: Speci men Type: BLOOD SPECIMEN Ordering Facility: [facility] Address: [address] Performed By: #### 2 4323-8 #### [facility] CLIA [id number] [address] [place] [address] [place] Protein [Mass/Vol] 7.0 g/dL Normal 6.3-8.0 [facility] Comment on above: Order Comment: Speci men Type: BLOOD SPECIMEN Ordering Facility: [facility] Address: [address] Performed By: #### 2 4323-8 #### [facility] CLIA [id number] [address] [place] [address] [place] Sodium [Moles/Vol] 135 mmol/L Low 136-144 [facility] Comment on above: Order Comment: Speci men Type: BLOOD SPECIMEN Ordering Facility: [facility] Address: [address] Performed By: #### 2 4323-8 #### [facility] CLIA [id number] [address] [place] [address] [place] Urea nitrogen [Mass/Vol] 25 mg/dL High 9-24 [facility] Comment on above: Order Comment: Speci men Type: BLOOD SPECIMEN Ordering Facility: [facility] Address: [address] Performed By: #### 2 4323-8 #### [facility] CLIA [id number] [address] [place] [address] [place] XR lumbar spine 2-3V*on 01-25 XR lumbar spine 2-3V* [facility] [address] [address] XRay Report Signed Patient: Koko Meier MR#: [id number] : 1960 Acct:[id number] Age/Sex: 62 / M ADM Date: 02/10/23 Loc: XD Room: Type: [facility] Attending Dr: Errol Humphrey MD Copies to: Errol Humphrey MD Ordering Provider: Errol Humphrey MD Date of Service: 02/10/23 XR/XR cervical spine 2V: M96.1 ([id number]) XR/XR lumbar spine 2-3V*: M96.1 CLINICAL DATA: Posterior neck pain radiating to the shoulders and low back pain radiating to the legs. Previous surgery. No recent injury. CERVICAL SPINE - 2 views COMPARISON: 07/04/2020 AP and lateral views were obtained. There is osteopenia. There is slight levoscoliotic curvature. There is redemonstration of an anterior plate and screws which extends from C5 through C7. The plate is fractured at the C6-7 level, just below a central screw. There is some lucency around that screw. This is unchanged. There are no developing fractures. There is still slight retrolisthesis of C3 on C4 and C4 on C5. There is prominent disc space narrowing at these levels. There is still anterolisthesis of C6 on C7. Mild disc space narrowing is present at the cervicothoracic junction. Multilevel endplate spurring and bilateral facet disease is seen, greater proximally. No prevertebral soft tissue swelling is identified. XR/XR cervical spine 2V IMPRESSION: SUBTLE SCOLIOTIC CURVATURE WITH POSTOPERATIVE AND DEGENERATIVE CHANGES. SIMILAR HARDWARE FAILURE. LUMBAR SPINE - 2 views COMPARISON: CT 04/20/2019 Standing AP and lateral views were obtained. There is slight thoracolumbar dextroscoliotic curvature. There is prior laminectomy and fusion with posterior rods, pedicle screws and interbody fusion devices extending from L3 through S1. The hardware appears intact and unchanged from the prior. A dorsal stimulator is seen. There is straightening of the normal cervical lordosis. There are no acute fractures. There is minimal retrolisthesis of L3 with respect to adjacent vertebra. There is mild disc space narrowing at L1-2 posteriorly and at L2-3 uniformly. There is endplate spurring. There is lower lumbar facet hypertrophy. The SI joints are intact. There is atherosclerotic plaque at the aorta and iliac arteries. IMPRESSION: SUBTLE SCOLIOSIS WITH POSTOPERATIVE AND DEGENERATIVE CHANGES. Impression dictated by: Monika Eastman M.D.02/10/2023 12:29 PM Dictation Location: [place] [address] Transcribed By: [facility] 02/10/23 1229 Dictated By: Monika Eastman MD 02/10/23 1220 Signed By: 02/10/[address] [facility] [address] chest wo conon 12-31-2022 CT chest wo con [facility] [place] [address] [place] [address] CT Scan Report Signed Patient: Koko Meier MR#: [id number] : 1960 Acct:[id number] Age/Sex: 62 / M ADM Date: 12/31/22 Loc: [facility] Room: Type: [facility] Attending Dr: Mariel Mcgraw MD Copies to: Mariel Mcgraw MD Ordering Provider: Mariel Mcgraw MD Date of Service: 12/31/22 CT/CT chest wo con: R91.1 CT CHEST WITHOUT IV CONTRAST: CLINICAL HISTORY: Follow-up lung nodule. COMPARISON: CT chest 12/04/2021 CT chest 05/22/2021 TECHNIQUE: Spiral images were obtained through the chest without IV contrast. This CT exam was performed using one or more following dose reduction techniques: Automated exposure control, adjustment of the mA and/or kV according to patient size, or use of iterative reconstruction technique. FINDINGS: Mediastinum:Thoracic aorta demonstrates mild calcification without aneurysm. Pulmonary trunk appears nondilated. No pericardial effusion. No lymphadenopathy. The esophagus is grossly unremarkable. Lungs:Mild peripheral reticular changes. No consolidation, pneumothorax or pleural effusion. Trachea and distal airways appear patent. Stable 7 mm noncalcified pulmonary nodule left lower lobe series 4 image 48. No new or enlarging pulmonary nodule. Abd:No acute findings. Soft tissues/Bones: Visualized soft tissue strandy chest wall demonstrate no acute findings. Osseous structures demonstrate degenerative change. Neurostimulator device is in place. CT/CT chest wo con IMPRESSION: Stable 7 mm noncalcified pulmonary nodule left lower lobe. Given its 2 years of stability, a benign process is favored. Impression dictated by: Rayray Díaz Jr.OBonita12/31/2022 12:47 PM Dictation Location: RADIO--12 Transcribed By: SHIRLEY 12/31/22 1247 Dictated By: Scooby Borrego Jr, DO 12/31/22 1243 Signed By: 12/31/[address] [facility] XR hips BI 4V adulton 2022 XR hips BI 4V adult [facility] [place] [address] XRay Report Signed Patient: Koko Meier MR#: [id number] : 1960 Acct:[id number] Age/Sex: 61 / M ADM Date: 11/06/22 Loc: XD Room: Type: [facility] Attending Dr: Yunier Ariza MD Copies to: Yunier Ariza Ordering Provider: Yunier Ariza Date of Service: 11/06/22 XR/XR hips BI 4V adult: M16.11, M16.12 BILATERAL HIPS - 2 views each CLINICAL HISTORY: Bilateral hip pain for years COMPARISON: None FINDINGS: Mild degenerative changes of the right hip without acute bony process. Mild degenerative changes of the left hip acute bony process. Post surgical changes are seen involving the lower lumbar spine. Partially visualized spinal cord centimeter. XR/XR hips BI 4V adult IMPRESSION: MILD DEGENERATIVE CHANGES OF BOTH HIPS WITHOUT ACUTE BONY PROCESS. Impression dictated by: Scooby Borrego Jr., RayrayOBonita11/06/2022 4:26 PM Dictation Location: [facility]- Transcribed By: SHIRLEY 11/06/22 1626 Dictated By: Scooby Borrego Jr, DO 11/06/22 1625 Signed By: 11/06/[address] [facility] Body fluid albumin measureme nt (mass/volume)Ordered By: Josh Melvin on 09-30-2022 Albumin (Body fld) [Mass/Vol] 3.6 g/dL 3.2-5.5 [facility] Cholesterol [Mass/volume] in Serum or PlasmaOrdered By: Josh Melvin on 09-30-2022 Cholesterol [Mass/Vol] 154 mg/dL 140-200 [facility] Comment on above: Chol less than 200 m g/dl low riskChol 201-239 mg/dl borderline riskChol 240 mg/dl and greater high risk Cholesterol in LDL Calc [Mas s/Vol]Ordered By: Josh Melvin on 09-30-2022 Cholesterol in LDL [Mass/Vol] 93 mg/dL 0-100 [facility] Comment on above: LDL ATP III CLASSIFI CATIONLDL less than 100 mg/dL OptimalLDL 100-129 mg/dL Near or above optimalLDL 130-159 mg/dL Borderline highLDL 160-189 mg/dL HighLDL greater than 189 mg/dL Very high Cholesterol in VLDL Calc [Ma ss/Vol]Ordered By: Josh Melvin on 09-30-2022 Cholesterol in VLDL [Mass/Vol] 17 mg/dL [facility] Creatinine and Glomerular fi ltration rate.predicted panel (S/P/Bld)Ordered By: Josh Melvin on 09-30-2022 Creatinine [Mass/Vol] 0.89 mg/dL 0.64-1.27 [facility] Estimated glomerular filtrat ion rate (GFR) non- AmericanOrdered By: Josh Melvin on 09-30-2022 GFR/1.73 sq M.predicted among non-blacks MDRD (S/P/Bld) [Vol rate/Area] > 60 mL/Min [facility] Globulin Calc (S) [Mass/Vol] Ordered By: Josh Melvin on 09-30-2022 Globulin (S) [Mass/Vol] 3.1 g/dL F [facility] Glucose mean value [Mass/vol ume] in Blood Estimated from glycated hemoglobinOrdered By: Josh Melvin on 09-30-2022 Average glucose Estimated from glycated hemoglobin (Bld) [Mass/Vol] 180 mg/dL [facility] Hemoglobin A1c percentageOrd ered By: Josh Melvin on 09-30-2022 HbA1c (Bld) [Mass fraction] 7.9 % 4.3-5.6 [facility] Comment on above: Increased risk for d iabetes: 5.7 - 6.4diabetes: >6.4glycemic control for adults with diabetes: <7.0 No Panel InformationOrdered By: Josh Melvin on 09-30-2022 Estimated GFR () > 60 mL/Min [facility] Comment on above: GFR estimated refere nce range: According to KDOQI guidelines, <60 ml/min/1.73m2 is sufficient to diagnose a patient with chronic kidney disease. Pharmacy Creatinine Clearance (Chem N/A [facility] Protein [Mass/volume] in Ser um or PlasmaOrdered By: Josh Bunting on 09-30-2022 Protein [Mass/Vol] 6.7 g/dL 6.1-7.9 [facility] Serum or plasma alanine cullen otransferase measurement without P-5'-P (enzymatic activiOrdered By: Josh Bunting on 09-30-2022 ALT No additional P-5'-P [Catalytic activity/Vol] 19 U/L 10-60 [facility] Serum or plasma albumin/glob ulin mass ratioOrdered By: Josh Bunting on 09-30-2022 Albumin/Globulin [Mass ratio] 1.2 {ratio} [facility] Serum or plasma alkaline juliette sphatase measurement (enzymatic activity/volume)Ordered By: Josh Bunting on 09-30-2022 ALP [Catalytic activity/Vol] 78 U/L 32-92 [facility] Serum or plasma anion gap de terminationOrdered By: Josh Bunting on 09-30-2022 Anion gap [Moles/Vol] 19.0 mmol/L 6.0-15.0 [facility] Serum or plasma aspartate am inotransferase measurement (enzymatic activity/volume)Ordered By: Josh Bunting on 09-30-2022 AST [Catalytic activity/Vol] 17 U/L 10-42 [facility] Serum or plasma calcium ezra urement (mass/volume)Ordered By: Josh Bunting on 09-30-2022 Calcium [Mass/Vol] 9.6 mg/dL 8.2-10.2 [facility] Serum or plasma chloride brenda surement (moles/volume)Ordered By: Josh Bunting on 09-30-2022 Chloride [Moles/Vol] 94 mmol/L 95-114 [facility] Serum or plasma glucose ezra urement (mass/volume)Ordered By: Josh Bunting on 09-30-2022 Glucose [Mass/Vol] 149 mg/dL 70-100 [facility] Comment on above: ADA recommended refe rence rangeRandom Glucose Reference Range is dependent on time and content of last meal. Glucose of more than 200 mg/dL in a nonstressed, ambulatory subject supports the diagnosis of Diabetes Mellitus. Serum or plasma high density lipoprotein (HDL) cholesterol measurementOrdered By: Josh Melvin on 09-30-2022 Cholesterol in HDL [Mass/Vol] 44 mg/dL 29-71 [facility] Comment on above: HDL CHOL ATP-III CLA SSIFICATION Cardiovascular RiskHDL > or equal to 60 mg/dL LOWHDL < 40 mg/dL HIGH Serum or plasma potassium me asurement (moles/volume)Ordered By: Josh Melvin on 09-30-2022 Potassium [Moles/Vol] 4.9 mmol/L 3.5-5.1 [facility] Serum or plasma sodium measu rement (moles/volume)Ordered By: Josh Melvin on 09-30-2022 Sodium [Moles/Vol] 137 mmol/L 136-146 [facility] Serum or plasma total biliru bin measurement (mass/volume)Ordered By: Josh Melvin on 09-30-2022 Bilirubin [Mass/Vol] 0.7 mg/dL 0.3-1.2 [facility] Serum or plasma total carbon dioxide measurement (moles/volume)Ordered By: Josh Melvin on 09-30-2022 CO2 [Moles/Vol] 28.9 mmol/L 22.0-30.0 [facility] Serum or plasma total choles terol/high density lipoprotein (HDL) cholesterol mass ratOrdered By: Josh Melvin on 09-30-2022 Cholesterol.total/Genevieve sterol in HDL [Mass ratio] 3.5 {ratio} <5.0 [facility] Serum or plasma urea nitroge n measurement (mass/volume)Ordered By: Josh Melvin on 09-30-2022 Urea nitrogen [Mass/Vol] 19 mg/dL 9-23 [facility] Triglyceride [Mass/volume] i n Serum or PlasmaOrdered By: Josh Melvin on 09-30-2022 Triglyceride [Mass/Vol] 86 mg/dL 35-149 [facility] Comment on above: TRIG ATP III CLASSIF ICATIONTRIG less than 150 mg/dL NormalTRIG 150-199 mg/dL Borderline highTRIG 200-500 mg/dL High TRIG greater than 500 mg/dL Very highStandard traceable to the Center for Disease Conrtrol and Prevention (CDC) test method. IntraOperative Documentson 0 04-25-2021 IntraOperative Documents [id number] Normal [facility] Main OR Intraoperative Recor don 04-25-2021 Main OR Intraoperative Record IntraOp Document Type FT Summary Primary Physician: Kwame Yang DO Finalized Date/Time: 04/25/21 16:46:35 Pt. Name: RENEA KOKO Aura Seo/Sex: 1960 Male Med Rec #: [id number] Physician: Kwame Yang DO Financial #: [id number] Pt. Type: I Room/Bed: [place] [address] Admit/Disch: 04/18/21 08:03:48 - 04/19/21 13:50:00 Institution: Case Times FT Entry 1 Patient Times In Room 04/18/21 10:01:00 Out Room 04/18/21 12:40:00 Procedure Times Start 04/18/21 10:45:00 Stop 04/18/21 12:30:00 Anesthesia Times Start 04/18/21 10:01:00 Stop 04/18/21 12:40:00 Block Timeout w/ 04/18/21 09:08:00 Anesthesia Last Modified By: Nandini Villaseñor RN 04/18/21 12:41:32 General Comments: 04/20/21 Chart open to review zev fang rn 04/20/21 send charges. Zev Fang RN Case Attendance FT Entry 1 Entry 2 Entry 3 Case Attendee Jimmy Winkler CRNA, DO, Jason A Roth CST, Liane E Role Performed Anesthesiologist Surgeon - Primary SHINGLE GRADER/SA Conveyor Belt Installer Time In 04/18/21 10:01:00 04/18/21 10:01:00 04/18/21 10:01:00 Time Out 04/18/21 12:40:00 04/18/21 12:40:00 04/18/21 12:40:00 Procedure SHOULDER TOTAL SHOULDER TOTAL SHOULDER TOTAL ARTHROPLASTY(Right) ARTHROPLASTY(Right) ARTHROPLASTY(Right) Comments supervised by Dr. Linton Last Modified By: Kasi KOO, Nandini Villaseñor RN, Nandini Villaseñor RN, Nandini Chavarria 04/18/21 12:41:34 04/18/21 12:41:34 04/18/21 12:41:34 Entry 4 Entry 5 Entry 6 Case Attendee Kasi KOO, Nandini Goldberg SHINGLE GRADER, Christiano Ballard SHINGLE GRADER, FA, Mensa K Role Performed Feed House Supervisor - Primary Scrub - Primary Staff - Other Time In 04/18/21 10:01:00 04/18/21 10:01:00 04/18/21 10:01:00 Time Out 04/18/21 12:40:00 04/18/21 12:08:00 04/18/21 12:40:00 Procedure SHOULDER TOTAL SHOULDER TOTAL SHOULDER TOTAL ARTHROPLASTY(Right) ARTHROPLASTY(Right) ARTHROPLASTY(Right) Comments Last Modified By: Kasi KOO, Nandini Villaseñor RN, Nandini Villaseñor RN, Nandini Chavarria 04/18/21 12:41:34 04/18/21 12:41:34 04/18/21 12:41:34 Entry 7 Case Attendee Shona SIMS, Alvino Cornejo Role Performed Staff - Other Time In 04/18/21 10:15:00 Time Out 04/18/21 11:55:00 Procedure SHOULDER TOTAL ARTHROPLASTY(Right) Comments Last Modified By: Nandini Villaseñor RN 04/18/21 12:41:34 General Comments: Arthrex reps Taryn Aleman in room Perioperative Protocols FT Pre-Care Text: Implements protective measures prior to operative or invasive procedure, confirms identity before the operative or invasive procedure, verifies operative procedure, surgical site, and laterality Entry 1 Procedure(s) SHOULDER TOTAL Patient Identity Birthday, ID Band ARTHROPLASTY(Right) Verified (select at Check, Patient least 2): Participation Consents / H and P Anesthesia Consent, Operative Site Present Verified HandP, Surgery/Procedure Marking Verified Consent Surgical Site Yes Laterality Verified Yes Verified Procedure Verified Yes Correct Patient Yes Position Verified Availability Equipment, Implant, Prep Dry Yes Verified (If Medication, X-ray Applicable) PreOp Antibiotic Yes Time Out Kwame Yang DO, Given Participants Williams CRNA, Paul A., Roth SHINGLE GRADER, Kasi Maciel RN, Yusuf Garner CST, Elio Burnham CST, FA, Windy K Time Out Complete 04/18/21 10:43:00 Outcomes Met? Yes Last Modified By: Nandini Villaseñor RN 04/18/21 10:54:24 Post-Care Text: The patient is free from signs and symptoms of injury caused by extraneous objects Allergy Information FT Pre-Care Text: Verifies allergies Entry 1 Allergies Reviewed? Yes Allergies Reviewed Self/Patient With Outcomes Met? Yes Last Modified By: Nandini Villaseñor RN 04/18/21 09:40:48 Post-Care Text: The patient received appropriate medication(s) safely administered during the perioperative period Surgical Procedures FT Entry 1 Procedure Description Procedure SHOULDER TOTAL Modifiers Right ARTHROPLASTY Surgeon Description RIGHT REVERSE TOTAL SHOULDER ARTHROPLASTY Primary Procedure Yes Primary Surgeon Kwame Yang DO Start 04/18/21 10:45:00 Stop 04/18/21 12:30:00 Anesthesia Type General Surgical Service Orthopedics Wound Class 1 - Clean Last Modified By: Nandini Villaseñor RN 04/18/21 12:46:37 General Case Data FT Pre-Care Text: Classifies surgical wound, implements aseptic technique, initiates traffic control Entry 1 Case Information OR OR 4 FT Case Level Level 6 Wound Class 1 - Clean Specialty Orthopedics ASA Class 3 Preop Diagnosis OA RIGHT SHOULDER Postop Same As Preop Yes Postop Diagnosis OA RIGHT SHOULDER Outcomes Met? Yes Last Modified By: Nandini Villaseñor RN 04/25/21 16:46:33 Post-Care Text: The patient is free from signs and symptoms of infection Skin Assessment (Pre Procedure) FT Pre-Care Text: Implements protective measures to prevent skin/ tissue injury due to thermal or mechanical sources Evaluates for signs and symptoms of physical injury to skin and tissue Entry 1 Skin Integrity Intact, Finger, Warm, and Skin Abnormality No Dry (more content not included)... Normal [facility] Main OR Preoperative Recordo n 04-25-2021 Main OR Preoperative Record PreOp Document Type FT Summary Primary Physician: Kwame Yang DO Finalized Date/Time: 04/25/21 16:43:54 Pt. Name: KOKO MEIER Aura GlassB./Sex: 1960 Male Med Rec #: [id number] Physician: Kwame Yang DO Financial #: [id number] Pt. Type: I Room/Bed: N306/01 Admit/Disch: 04/18/21 08:03:48 - 04/19/21 13:50:00 Institution: Case Times PreOp FT Pre-Care Text: Verifies consent for planned procedure, identifies individual values and wishes concerning care, includes family members in perioperative teaching Entry 1 Patient Times. In Pre Surgery 04/18/21 08:05:00 Out Pre Surgery 04/18/21 10:00:00 Outcomes Met? Yes Last Modified By: Nandini Villaseñor RN 04/25/21 16:43:45 Post-Care Text: The patient participates in decisions affecting his or her perioperative plan of care Finalized By: Nandini Villaseñor RN Document Signatures Signed By: Nandini Villaseñor RN 04/25/21 16:43 Normal [facility] Coding Summary.on 04-24-2021 Coding Summary. [id number] G h0bWw+PGhlYWQ+GK3BYPH nQ14diIIwjC4TB1kQLR4P RBAWGVYSBF9CXA1yxWS5Z UinB6MbjqPy PrvnqZWmEU00HHi2NMN6z OmiLMawvO8hdDTqV3l1Yp BmEP77zT17SKpeHGDcPnP 3LjZpbjsgbWFy T9liXsVkwMVhQlf+PHRhY mxlIHdpZHRoPScxMDAlJy RewJmfFO6hOr7pMHOiYXJ vbGxhcHNlOiBj n6scJJBiVZfoUG0yjKufO 0CieSQ3IWCjg2t7Qb39aB I+UZEmLSO7wJfeXOknr49 5BzLct8jiHYQ8 cREkJIsvJUP8T14ok3Q7S ICpFKWfCHJ0xTF8eS4yhM pjpsbyJ4LssOUsMmF7HVJ 5bCNbcK7xxYeb ubevzT6cRja+L22ERG0JW GNUOM2PEam7O9XjBmqyvL I+TZ16PZFbMR55nGGjoHC qn1rjqPv5VnOr NATkLJS0bJkzDYmqv1NgP WVwC64biTEtk2E7XIRglB pezNVqAaOwpVF1xL5zEQa motore6cqfcul Ymdqt9duzy54kM40Y91xG KxbTRRqMLV7YNEiWQGvpX aduz3nqZ7yYe1+ULogr3t wj5novPz3OvAd INYxwqDcrTznDPN8b2HfK d38L9HxlPrrs3DsEyy7lp 49qOZfh0V8yHW2SGmsYCA noR0rESydUzQ2 EWRxLoLrqD62sHIxLTexU a3weXfpaJqdTE7xNKUoqb roXIWzpF1aXRXnfVMeiCb aJQ2kAIPdrsbp q960DsUtNRU3MVGyzLDvI 3NvvM6cNeRiEXOnPIEaO1 CyiBWsENcdP845GZkaTkX 1KGOrygYvB8Gx UOZenXecQkY8m1C1Vo0Bb 7AbttrzQVM8TQbaUET1Gd B5DjEeNoX8W1CjLvw2TJT xvClxYF7hY7Xe RSKpsgqipvywfIK8GUUdF UFrqW82yUFaKTqpEl3kw4 P4e135BQAyJHBjcD14Sy7 udDogMTBwdCBU dP1tayqdf3rosoouYiXqM FCxEPj2KAa3GPAgvRjzKh SdBDI3LxL8WWH0uYCrhV4 kiHmzfhpyxF8e Oyc+I28ysB1mNWN4GFS0t qimIFXtouSvTC93FM21X9 RyPjwvdGFibGU+PGRpdiB ciWooPK8iRiSv b1cxb5GnQVrnY8VlITOcV LmsRpw0WTEjTXG8xGV1dE 7zIOIxSRped1K2eDG0U1S gxvJgdd5nx4zl IVCrNCayG27ztGMit5J9U FDbyPV3MZVyaNomRmKwpA 93Oyc+RKNzfVwld8DcBcb sa8wjv0zomBp6 WbNbJPFuxoRnoYzvEKA2e 3IeXv32K95rNOgaEKAdQD ZjJAWzVIOtcBpxtj9ekE3 wIi8+PGNvbCB3 cFS8oA3cGCJeEqM1KAppM 261KyUbuWZkPnfua2bpq2 pozBx0SuAtZIZonuDirNs hTJA7u1BcWh14 I06iZIiiXNLwPTZaTDRuT AUnoNtoua4cnV8uZl1+PC 0ig0fcaj15hJ91rUQ+PHR vGUH9cJtpBNpf WMYiyD2uQNmmEdA6BKYmV fGdrF36fCAsLQjdZn1hnD cwvDfdYT4rCUGkcacjw79 0FnKei5cwQCAu wOIaIDcuVGQ2W39ut4J0A LOpQNJwCWH8fXZ3iF4yjS lnbjogbGVmdDsgdmVydGl vZYalTOmqN587 IHRvcDsnPlBhdGllbnQgT vMnTUo1D9CeOas6SFMkwV zvVJ5wdBYdPUxgDp2pxOm vmYkpDT4kNSIg umzcf527WnRfs6czVNGig BSyZBjbJDG7W18xz5W9CX JvNBIcKWE1yZC0oV6poVd nbjogbGVmdDsg krHjwEbpWYkbTLczD828S HRvcDsnPkJpcnRoIERhdG R0CW11AH33uEAlp5A1eCG 4D9BuUMRuguqt wrrbmUS4HCUtJSYurQ85C y4oiOhxBo0zORWzNBV1MG YpuSXdA5QefN5uRwJzPXT sFTPlO0OqeGLl ZHzjN037HHbzIrQ6YMSha yUgE6OtQOXcmCadTpR8x3 N1Rb9XF2Z4YS89LR07cAO vw9K2jES2M9Eu EEWbwvuhxhshnDJ1LFFuD WXecL16Cw8xdTnwAw2gTV NwWHF8JIJvnRMmW9BjzL8 yOiAjMDAwMDAw X0RgtIIvNDykU206HAbmE eX4BZSsgqMiW4CnGISqdR kvDvP0s6C4Jg5BZZw0WT2 2BC60xVDxb9I1 vGN7K0GfFRCitivotkgur KO1OXRkSZKulM29Kj3giO njRl8mGJZkPQY8FKHrcRZ oX9JfzF4mQoDy DCDxMOBsT4SxoLInTJkaZ 854UChuDxW7KBDysdDtI6 NaJIMelBzcIjF6c0O7Tg7 NNEQhWW10OUN3 qLA8AN83HM85K7OjFvjuu GFibGU+PHRhYmxlIHdpZH RoPScxMDAlJyBzdHlsZT0 dVx6eJYHmBUAq oSdloQOtJyUsm7qpHGGkK UowJP7irXrtW1DryLF9DR Fgt1p9Qm16L49rC8SqlNK +JIOibBG0eJQ4 uE3jVbHlHvT2MHldT834N iCkvHJoMvedh8udb6ylvZ r6AwV0NSNwqcRywVliZRW 0h3PpAm37L92i IHdpZHRoPSIxNSUiIHZhb Byqke4sbE4lCl7+PGNvbC O6sSZ1nY0uIcObZcR6YOo xD535ZnEzyBPb Qdymz8xzf3ckyTr8OpGlC OSpxwTfvMinZZA4e6CoSd 25F7LweKnqw8ToHme4fq8 5rDAna7Q5kRP7 R2HaIPEmslareWNhzOaqF T2zQHOrmruhAUEubI1rBN DsH4m9DgHdRdL0HXuyL9C smkD2ZYVsjAAy DRwbHOB4T45do9O6JJZtA VXbOCM0wHN2vT2eySmeid ogbGVmdDsgdmVydGljYWw tFZlxR969SAXa wPmdGMAzqQ6vGRTsdYYqw XopAH5bUANstagmRvJBLT 5ERVIsIEpFRkZSRVkgUzw vdGQ+PHRkIHN0 cTzbOWnnCDHlhL5eABCeA 5s5LxHoDvU1LNsmV6GlBC GwhzixBn92tC2eBuGrZkG 0XXjeF8JezlY6 CFPrjDOqCLjtNAL2W33rj 9E9GCHlMUIfNGJ6cXH0qQ 1hbGlnbjogbGVmdDsgdmV ydGljYWwtYWxp P735SATdiNahRjMkLpVzT tF6CDm5W3LqNtv2ZVDkfB qoHX4kmPLrUEguLp8nvCo qxRwvYS6qTDOb ltekEAHtzU4iSTSpuDWbl JkoPA1iLYPwljjof365Tn LtOZN3QMSttDVvL9JciY4 yOiAjMDAwMDAw G5LvrPAiLOdfO048BYtaS cM3YSLvqkJrE0JvWDQcnX iyVpH1w2K3Bn44OzEIVTE yczwvdGQ+PHRk VDG0cFreFJqtLKPkaF3qN LLoQ9l6VyLjPnO9YRjyJ9 IeUTCxwgkrUe64vN2yJdV rXlA3EHzlD0Me iwP6ASYvnAXdNSbjHOR2D 22lo2Y1OLUtJAEnDHX5aM S0zK1ezOzmcfsysIAbbPd gdmVydGljYWwt PMddS014OFRewDrtCe4pk HD7Y4LkLvh3KJAspAtbZQ 4xaZPcFAqpTd2voBbsdKt yLH2dMAMehshe FXQpaR4sKQIdlPLlqGmnY X7mBRAuzkfst029MjJkEW Y5ZHQuqZMgN0TiqF3zRjX cVZGoYQCfJ5Kp xWKjIJfjN487JJsoMjU0F BCxsuYrP0OeSWGxaGdxCl Y1g5W1Rm5ExcNpkWgrjtR 8Q5LxMylwkEQ+ HS14QKBbYR83aZCiuJFvb 0mqrSk9TpZnOWXlUUX2nT zqERgdt5PqTPEsT59pyKB ei6O5WXVfuDjn xIJnRqHeoRY3dF6tWHmrc kxzf8lrtddwYjbdk3lkpp 81jR31J07yMOmaCUPfHAW zMCUiIHZhbGln im2xlG3tCq5+DZLoaNR2h IZ5bE3nHiIgStA5ZWnaG8 48MuArwRIoLhiub2chf8e kfPt2JzUwDBJk spUwpPvaZHY0n9ErHu27V 29sIHdpZHRoPSIyMCUiIH EwdKyxsh0xsM1mQe5+PC9 hy7kqys37xB21 dHI+JJPkEDX7aJqaHHjdY UMeaK7lIKanWeZ7QYOlBo HwhE29hMUaBHrrAn6stYl seIxmAJ8yDOAa fydii855JqWmk4vzNATje UJlOGhiPHP8A05ko6M7NK KqXMChIMO8eKS7cY5pwTw nbjogbGVmdDsg qtJhvNreNBjjPMloE081C DKmkRvxSjLilABwP4vlxv MIWV3dTkxxcJD+PHRkIHN 0eWxlPSdwYWRk sU6fIJVoE1j0ChJdJfK7W SteM2WqmeQ2JZMxjJJwTC ZpzVXDzR9dcoxoq2ihmbn gIzAwMDAwMDt0 BRw1HOGrkCcbWiUkDJW5M vQ2MLK8dIOqfQ9azHxrig jalU7sXju+RklOOjwvdGQ +MSSoKLY7tZqr OXgiXHBgrH0lDZIsD3n1B jKzQtN7DDdxD1WdgtC5YK XgoMPqBNMswYFUwG4nugl lj7nggqfvOoWh AFSbOLf1PKm5GMNvrPpzF dHpCLX6JuN2JEW6eQOqlB 5hzPxqlsbuvP0sClu+TVJ OOjwvdGQ+PHRk JSN1aFhcYNyoROYouS7rW PJxV7j4HcXtAtW3TNmeY8 ZuybG6UEQtuIViSNXtvMW IgC8vbctvz0qs hcybSjWgUNJhEZr4RKo9O LNbmVejKiRpCQM8EmQ0NF I6yGIwjN0ykCqaqpvppB5 wOyc+SQN6FCK7 GW33OO34U4TnIvvglINhm +PHRhYmxlIHdpZHRoPS kqBYHcKgTrxBayOX5rCb7 yZGVyLWNvbGxh cHNl (more content not included)... Normal [facility] Operative Reporton Operative Report Patient: KOKO MEIER Age: 60 years Sex: Male : 1960 Associated Diagnoses: None Author: Christiano Linton Jr, DO Postoperative Information Date/ Time: 04/18/2021 09:15:00 Preoperative Diagnosis: Acute postoperative pain.. Postoperative Diagnosis: Acute postoperative pain. Procedure: Interscalene nerve block. Anesthesia Method: Local, Monitored anesthesia care. Performed by: Christiano Linton Jr, DO. Medications: Midazolam 2 mg. Complications: None. Notes: The patient was interviewed and examined prior to the planned operation. Anesthesia options were discussed including peripheral nerve block of the brachial plexus in the interscalene region for postoperative analgesia. This discussion included a description of the procedure, risks and benefits, as well as alternatives to the block. The patients questions were addressed and the patient elected to proceed with preoperative interscalene administration of local anesthetic agent. The patient was placed in the recumbent position and monitored with continuous pulse oximetry, non-invasive blood pressure, and electrocardiography. Following time-out, the patient's pertinent anatomic landmarks were identified and marked with a felt-tipped pen before the procedure. The lateral neck and upper shoulder were prepped with ChloraPrep and sterilely draped. A 25 gauge x 1 3/8 Stimuplex needle was introduced under ultrasound guidance with stimulator attached and operating. The patient was questioned intermittently and reported no paresthesias. Loss of twitch was observed at _0.3_ mA. With the needle held in place, and with intermittent attempts for aspiration of blood, _18_ cc of 0.5% Ropivacaine WITH 4MG OF DECADRON was slowly introduced. No signs or symptoms of intravascular injection were evidenced. The injection demonstrated a positive Sagar test. The patient tolerated the procedure well. The patient was then induced for general anesthesia and preparations for the proposed operation continued.. Normal [facility] Comment on above: Result Comment: Elec tronically Signed By: Christiano Linton Jr, DO\.br\Date and Time Signed: 04/23/21 08:08 EDT Progress Note-Physicianon Progress Note-Physician Patient: KOKO MEIER Age: 60 years Sex: Male : 1960 Associated Diagnoses: None Author: Christiano Linton Jr, DO Postoperative Information Post Operative Note: Post Anesthesia Care Unit. Anesthetic utilized: General. Health Status Allergies: Allergic Reactions (Selected) No Known Allergies Problem list: All Problems Arthritis / SNOMED CT 9027494 / Confirmed Diabetes mellitus / SNOMED CT 079112154 / Confirmed High cholesterol / SNOMED CT 39979578 / Confirmed High blood pressure / SNOMED CT 6530955846 / Confirmed Physical Examination Vital Signs 04/18/2021 15:48 EDT Temperature Oral 36.7 DegC Heart Rate Monitored 86 bpm Systolic Blood Pressure 112 mmHg Diastolic Blood Pressure 64 mmHg Mean Arterial Pressure, Monitered 80 mmHg SpO2 96 % 04/18/2021 15:02 EDT Hourly Rounding Yes Promise to Return Yes 04/18/2021 14:01 EDT Temperature Oral 36.7 DegC Heart Rate Monitored 71 bpm Systolic Blood Pressure 144 mmHg HI Diastolic Blood Pressure 76 mmHg Mean Arterial Pressure, Monitered 98 mmHg SpO2 97 % 04/18/2021 14:00 EDT Hourly Rounding Yes Promise to Return Yes 04/18/2021 13:45 EDT Temperature Temporal Artery 36.5 DegC Heart Rate Monitored 62 bpm Respiratory Rate Monitored 19 br/min Systolic Blood Pressure 132 mmHg Diastolic Blood Pressure 59 mmHg LOW Blood Pressure Location Left arm SpO2 96 % 04/18/2021 13:30 EDT Heart Rate Monitored 61 bpm Respiratory Rate Monitored 14 br/min Systolic Blood Pressure 126 mmHg Diastolic Blood Pressure 63 mmHg Blood Pressure Location Left arm SpO2 96 % 04/18/2021 13:15 EDT Heart Rate Monitored 58 bpm LOW Respiratory Rate Monitored 16 br/min Systolic Blood Pressure 129 mmHg Diastolic Blood Pressure 63 mmHg Blood Pressure Location Left arm SpO2 95 % 04/18/2021 13:00 EDT Heart Rate Monitored 74 bpm Respiratory Rate Monitored 14 br/min Systolic Blood Pressure 133 mmHg Diastolic Blood Pressure 75 mmHg Blood Pressure Location Left arm SpO2 96 % 04/18/2021 12:55 EDT Heart Rate Monitored 75 bpm Respiratory Rate Monitored 16 br/min Systolic Blood Pressure 127 mmHg Diastolic Blood Pressure 82 mmHg Blood Pressure Location Left arm SpO2 94 % 04/18/2021 12:50 EDT Heart Rate Monitored 78 bpm Respiratory Rate Monitored 20 br/min Systolic Blood Pressure 126 mmHg Diastolic Blood Pressure 66 mmHg Blood Pressure Location Left arm SpO2 93 % 04/18/2021 12:44 EDT Temperature Temporal Artery 36.8 DegC Heart Rate Monitored 89 bpm Respiratory Rate Monitored 22 br/min Systolic Blood Pressure 133 mmHg Diastolic Blood Pressure 66 mmHg Blood Pressure Location Left arm SpO2 99 % 04/18/2021 12:35 EDT Heart Rate Monitored 64 bpm bpm Respiratory Rate 18 br/min br/min Systolic Blood Pressure 84 mmHg mmHg Diastolic Blood Pressure 62 mmHg mmHg SpO2 97 % % 04/18/2021 12:30 EDT Heart Rate Monitored 98 bpm bpm Respiratory Rate 14 br/min br/min Systolic Blood Pressure 122 mmHg mmHg Diastolic Blood Pressure 70 mmHg mmHg SpO2 97 % % 04/18/2021 12:25 EDT Heart Rate Monitored 70 bpm bpm Respiratory Rate 14 br/min br/min Systolic Blood Pressure 128 mmHg mmHg Diastolic Blood Pressure 65 mmHg mmHg SpO2 97 % % 04/18/2021 12:20 EDT Heart Rate Monitored 86 bpm bpm Respiratory Rate 14 br/min br/min Systolic Blood Pressure 125 mmHg mmHg Diastolic Blood Pressure 76 mmHg mmHg SpO2 97 % % 04/18/2021 12:15 EDT Heart Rate Monitored 71 bpm bpm Respiratory Rate 14 br/min br/min Systolic Blood Pressure 112 mmHg mmHg Diastolic Blood Pressure 60 mmHg mmHg SpO2 97 % % 04/18/2021 12:10 EDT Heart Rate Monitored 87 bpm bpm Respiratory Rate 14 br/min br/min Systolic Blood Pressure 117 mmHg mmHg Diastolic Blood Pressure 78 mmHg mmHg SpO2 97 % % 04/18/2021 12:05 EDT Heart Rate Monitored 62 bpm bpm Respiratory Rate 14 br/min br/min Systolic Blood Pressure 93 mmHg mmHg Diastolic Blood Pressure 58 mmHg mmHg SpO2 97 % % 04/18/2021 12:00 EDT Heart Rate Monitored 64 bpm bpm Respiratory Rate 14 br/min br/min Systolic Blood Pressure 96 mmHg mmHg Diastolic Blood Pressure 62 mmHg mmHg SpO2 97 % % 04/18/2021 11:55 EDT Heart Rate Monitored 63 bpm bpm Respiratory Rate 14 br/min br/min Systolic Blood Pressure 104 mmHg mmHg Diastolic Blood Pressure 62 mmHg mmHg SpO2 97 % % 04/18/2021 11:50 EDT Heart Rate Monitored 62 bpm bpm Respiratory Rate 14 br/min br/min Systolic Blood Pressure 119 mmHg mmHg Diastolic Blood Pressure 103 mmHg mmHg SpO2 97 % % 04/18/2021 11:45 EDT Heart Rate Monitored 63 bpm bpm Respiratory Rate 14 br/min br/min Systolic Blood Pressure 107 mmHg mmHg Diastolic Blood Pressure 73 mmHg mmHg SpO2 96 % % 04/18/2021 11:40 EDT Heart Rate Monitored 60 bpm bpm Respiratory Rate 14 br/min br/min Systolic Blood Pressure 105 mmHg mmHg Diastolic Blood Pressure 69 mmHg mmHg SpO2 97 % % 04/18/2021 11:35 EDT Heart Rate Monitored 61 bpm bpm Respiratory Rate 14 br/min br/min (more content not included)... Normal [facility] Comment on above: Result Comment: Elec tronically Signed By: Christiano Linton Jr, DO\.br\Date and Time Signed: 04/23/21 08:09 EDT Progress Note-Physician Patient: KOKO MEIER Age: 60 years Sex: Male : 1960 Associated Diagnoses: None Author: Christiano Linton Jr, DO Preoperative Information Time patient last ate or drank:=== (npo 8 hours) Anesthesia history: Patient history: No prior anesthesia problems. Re-evaluation prior to induction: Completed, Initial evaluation reviewed. Review of Systems Respiratory: No shortness of breath. Cardiovascular: No chest pain. Hematology/Lymphatics : No bruising tendency, No bleeding tendency. Health Status Allergies: Allergic Reactions (All) No Known Allergies Current medications: (Selected) Inpatient Medications Ordered Lactated Ringers IV Marlene 1000 mL 1,000 mL: 1,000 mL, IV, 150 mL/hr, Routine, Start date 04/18/21 8:30:00 EDT, 6.7 hour(s), Total volume (mL): 1,000, 109.8 kg, 2.28, m2 cefazolin additive + Premix Dextrose 5% Diluent 50 mL: 2 gram = 50 mL, Soln-IV, IV Piggyback, PREOP, Routine, Start date 04/18/21 8:30:00 EDT, 100 mL/hr, Infuse over 30 minute(s) insulin regular human recombinant 100 units/mL Inj Marlene: 4 unit(s) = 0.04 mL, Injection-Insulin, SubCutaneous, Once, Stop date 04/18/21 9:00:00 EDT, Routine, Start date 04/18/21 9:00:00 EDT tranexamic acid additive + premix generic diluent 100 mL: 1,000 mg = 100 mL, Soln-IV, IV Piggyback, Once, Stop date 04/18/21 9:00:00 EDT, Routine, Start date 04/18/21 9:00:00 EDT, 600 mL/hr, Infuse over 10 minute(s) Documented Medications Documented Celebrex: 200 mg, Oral, BID, Refills(s) 0, Arthritis Cymbalta: 60 mg, Oral, BID, Refills(s) 0, Depression Lipitor: 40 mg, Oral, Daily, Refills(s) 0, High cholesterol Novolin N: See Instructions, 5 units AM 15 units NOON 30 units PM, Refills(s) 0, Blood glucose Tresiba FlexTouch 200 units/mL subcutaneous solution: 75 unit(s), SubCutaneous, Daily, Refills(s) 0, Blood glucose busPIRone: 30 mg, Oral, TID, Refills(s) 0, Depression gabapentin: See Instructions, 900 mg Oral, Refills(s) 0, Neuropathy hydrochlorothiazide-l isinopril 12.5 mg-10 mg oral tablet: 1 tab(s), Oral, Daily, Refill(s) 0, High blood pressure metformin: 1,000 mg, Oral, BID, Refills(s) 0, Blood glucose morphine 15 mg oral tablet: 15 mg = 1 tab(s), Oral, BID, Refills(s) 0, Pain perphenazine 4 mg Tab: 4 mg = 1 tab(s), Oral, BID, Refills(s) 0, Agitation Problem list: All Problems Arthritis / SNOMED CT [id number] / Confirmed Diabetes mellitus / SNOMED CT [id number] / Confirmed High cholesterol / SNOMED CT [id number] / Confirmed High blood pressure / SNOMED CT [id number] / Confirmed Histories Past Medical History: No active or resolved past medical history items have been selected or recorded. Family History: Hypertension Father Diabetes mellitus type 2 Mother Brother Metastatic cancer Father Procedure history: Spine orthopedic surgery, lumbar ([id number]). Spine orthopedic surgery, cervical ([id number]). Arthroscopic repair of rotator cuff ([id number]). Carpal tunnel release ([id number]). Appendectomy ([id number]). Partial resection of colon ([id number]). Social History Social & Psychosocial Habits Alcohol 04/03/2021 Use: Current Type: Beer Frequency: 1-2 times per year Substance Abuse 04/03/2021 Use: Current Type: Marijuana Frequency: 3-5 times per week Tobacco 04/03/2021 Risk Assessment: Denies Tobacco Use . Physical Examination Vital Signs 04/18/2021 8:55 EDT Heart Rate Monitored 74 bpm Systolic Blood Pressure 130 mmHg Diastolic Blood Pressure 72 mmHg Blood Pressure Location Left arm Mean Arterial Pressure, Monitered 91 mmHg SpO2 96 % 04/18/2021 8:23 EDT Temperature Oral 36.9 DegC Heart Rate Monitored 74 bpm Respiratory Rate 18 br/min Systolic Blood Pressure 154 mmHg HI Diastolic Blood Pressure 78 mmHg Blood Pressure Location Right arm Mean Arterial Pressure, Monitered 103 mmHg SpO2 95 % 04/18/2021 8:23 EDT Apical Heart Rate 72 bpm Respiratory: Lungs are clear to auscultation. Cardiovascular: Normal rate, Regular rhythm. Review / Management Results review Interpretation of Outside Results Chest x-ray results Radiology results ECG interpretation Condition Plan [place] [employer]hesi[employer] (ASA) physical status classification: Class III. Anesthetic Preoperative Plan Anesthesia: General. , Regional Interscalene Block. Anesthetic plan, risks, benefits, and alternatives discussed with the patient and/or family. Risks discussed: nausea, vomiting, headache, sore throat, dental injury, serious complications. Patient verbalized understanding. Communication: face to face with (patient 5 minutes, Pt educated on the importance of smoking cessation.). Normal [facility] Comment on above: Result Comment: Elec tronically Signed By: Royer Jonas DO, Christiano Pearson\.renard\Date and Time Signed: 04/23/21 08:08 EDT Auto Diffon 04-19-2021 Basophils/100 WBC (Bld) 0.4 % Normal 0.0-2.0 [facility] Comment on above: Order Comment: Order Added by Discern Expert. Performed By: #### 1 [id number] #### [facility] [address] [place] [address] Basophils/Leukocytes Auto (Bld) [Pure # fraction] 0.0 E9/L Normal 0.0-0.2 [facility] Comment on above: Order Comment: Order Added by Discern Expert. Performed By: #### 1 [id number] #### [facility] [address] [place] [address] Eosinophils/100 WBC (Bld) 0.1 % Normal 0.0-8.0 [facility] Comment on above: Order Comment: Order Added by Discern Expert. Performed By: #### 1 [id number] #### [facility] [address] [place] [address] Eosinophils/Leukocytes Auto (Bld) [Pure # fraction] 0.0 E9/L Normal 0.0-0.5 [facility] Comment on above: Order Comment: Order Added by Discern Expert. Performed By: #### 1 [id number] #### [facility] [address] [place] [address] Lymphocytes/100 WBC (Bld) 14.0 % Normal 14.0-50.0 [facility] Comment on above: Order Comment: Order Added by Discern Expert. Performed By: #### 1 [id number] #### [facility] [address] [place] [address] Lymphocytes/Leukocytes Auto (Bld) [Pure # fraction] 1.7 E9/L Normal 1.0-4.0 [facility] Comment on above: Order Comment: Order Added by Discern Expert. Performed By: #### 1 [id number] #### [facility] [address] [place] [address] Monocytes/100 WBC (Bld) 5.9 % Normal 4.0-14.0 [facility] Comment on above: Order Comment: Order Added by Discern Expert. Performed By: #### 1 [id number] #### [facility] [address] [place] [address] Monocytes/Leukocytes Auto (Bld) [Pure # fraction] 0.7 E9/L Normal 0.2-1.0 [facility] Comment on above: Order Comment: Order Added by Discern Expert. Performed By: #### 1 [id number] #### [facility] [address] [place] [address] Neutrophils/100 WBC (Bld) 79.6 % High 36.0-75.0 [facility] Comment on above: Order Comment: Order Added by Discern Expert. Performed By: #### 1 [id number] #### [facility] [address] [place] [address] Neutrophils/Leukocytes Auto (Bld) [Pure # fraction] 9.8 E9/L High 2.0-7.5 [facility] Comment on above: Order Comment: Order Added by Discern Expert. Performed By: #### 1 [id number] #### [facility] [address] [place] [address] BUNon 04-19-2021 Urea nitrogen [Mass/Vol] 19 mg/dL Normal 5-21 [facility] Comment on above: Performed By: #### 1 [id number] #### [facility] [address] [place] [address] CBC w/ Auto Diffon Erythrocyte distribution width (RBC) [Ratio] 13.1 % Normal 10.9-14.2 [facility] Comment on above: Performed By: #### 1 [id number] #### [facility] [address] [place] [address] Hematocrit (Bld) [Volume fraction] 42.1 % Normal 37.7-49.0 [facility] Comment on above: Performed By: #### 1 [id number] #### [facility] [address] [place] [address] Hemoglobin (Bld) [Mass/Vol] 14.0 g/dL Normal 13.5-17.5 [facility] Comment on above: Performed By: #### 1 [id number] #### [facility] [address] [place] [address] MCH (RBC) [Entitic mass] 31.5 pg Normal 27.0-34.0 [facility] Comment on above: Performed By: #### 1 [id number] #### [facility] [address] [place] [address] MCHC (RBC) [Mass/Vol] 33.3 g/dL Normal 31.4-36.0 [facility] Comment on above: Performed By: #### 1 [id number] #### [facility] [address] [place] [address] MCV (RBC) [Entitic vol] 94.4 fL Normal 80.0-100.0 [facility] Comment on above: Performed By: #### 1 [id number] #### [facility] [address] [place] [address] Platelet mean volume (Bld) [Entitic vol] 9.5 fL Normal 6.4-10.8 [facility] Comment on above: Performed By: #### 1 [id number] #### [facility] [address] [place] [address] Platelets (Bld) [#/Vol] 177.0 E9/L Normal 150.0-500.0 [facility] Comment on above: Performed By: #### 1 [id number] #### [facility] [address] [place] [address] RBC (Bld) [#/Vol] 4.5 E12/L Normal 4.3-5.9 [facility] Comment on above: Performed By: #### 1 [id number] #### [facility] [address] [place] [address] WBC corrected for nucl RBC Auto (Bld) [#/Vol] 12.3 E9/L High 4.0-11.0 [facility] Comment on above: Performed By: #### 1 [id number] #### [facility] [address] [place] [address] Capillary Glucose POCon 03-28 Glucose [Mass/Vol] 226 mg/dL High 55-99 [facility] Comment on above: Result Comment: Joanna daly RN/ Performed By: #### 2 [id number] #### [facility] [address] [place] [address] Glucose [Mass/Vol] 271 mg/dL High 55-99 [facility] Comment on above: Result Comment: Joanna daly RN/ Performed By: #### 2 [id number] ####[facility] [address] [place] [address] Consent for Anesthesiaon Consent for Anesthesia [id number]#1 .00CD:127 Normal [facility] Creatinineon 04-19-2021 Creatinine [Mass/Vol] 0.7 mg/dL Normal 0.5-1.3 [facility] Comment on above: Performed By: #### 1 [id number] #### [facility] [address] [place] [address] Discharge Instructionson Discharge Instructions [id number]# 1.00CD:127 Normal [facility] Inpatient Clinical Summaryon 04-19-2021 Inpatient Clinical Summary [address] [address] Clinical Summary Person Information: Name: KOKO MEIER Age: 60 Years : 1960 Sex: Male PCP: JOSH MELVIN DO Marital Status: Phone: [phone] Race: White Ethnicity: Non- or Language: [place] Visit Id: Visit Reason: OA RIGHT SHOULDER Speciality: Acuity: Enc Type: Inpatient Med Service: Surgery Arrival: 04/18/2021 08:03:48 Discharge: Dispo Type: Address: [address] [place] [id number] Provider Notes: Diagnosis: Arthritis of shoulder region, right, degenerative Problems No Problems Documented Smoking Status: Functional Status: Sensory Deficits: History of Falls: Mobility Assistance Prior to Admission: ADLs: Minimal assistance Current Level of Assistance for Self-Care/Mobility: Cognitive Status: Allergies No Known Allergies Measurements: Height: Weight: 112.6 kg Blood Pressure: 187 mmHg / 80 mmHg BMI: Procedures Arthroscopy of shoulder (04/18/2021) Immunizations No Immunizations Documented This Visit Final Med List: acetaminophen-oxycodo ne (Percocet 325 mg-5 mg Tab) 1-2 tab(s) Oral q4hr; as needed as needed for pain. Refills: 0. atorvastatin (Lipitor) 40 Milligram By Mouth every day. busPIRone 30 Milligram By Mouth 3 times a day. docusate (Colace 100 mg Cap) 1 Capsules By Mouth 2 times a day as needed for constipation. Refills: 0. duloxetine (Cymbalta) 60 Milligram By Mouth 2 times a day. gabapentin 900 mg Oral. hydrochlorothiazide-l isinopril (hydrochlorothiazide- lisinopril 12.5 mg-10 mg oral tablet) 1 Tablets By Mouth every day. insulin degludec (Tresiba FlexTouch 200 units/mL subcutaneous solution) 75 Units Subcutaneous every day. insulin isophane (Novolin N) 5 units AM 15 units NOON 30 units PM. meloxicam (meloxicam 15 mg Tab) 1 Tablets By Mouth every day. Refills: 0. metformin 1,000 Milligram By Mouth 2 times a day. morphine (morphine 15 mg oral tablet) 1 Tablets By Mouth 2 times a day. perphenazine (perphenazine 4 mg Tab) 1 Tablets By Mouth 2 times a day. Care Team Members: Attending Physician: Kwame Yang DO Consulting Physician: Referring Physician: Kwame Yang DO Follow up: With: Address: When: [place] [address] [facility] (1) 04/26/2021 2:45 PM Patient Education Information: Danyell Yang - Shoulder Replacement (Custom) Normal [facility] Inpatient Patient Summaryon 04-19-2021 Inpatient Patient Summary [address] [id number] Patient Discharge Instructions PERSON INFORMATION Name: RENEA KOKO Aura Date of : 1960 Current Date: 04/19/2021 12:54:54 PHYSICIANS Admitting Physician: Kwame Yang DO Primary Care Physician: JOSH MELVIN DO PCP Comment: Discharge Diagnosis: Arthritis of shoulder region, right, degenerative Condition at Discharge: KOKO MEIER has been given the following list of follow-up instructions, prescriptions, and patient education materials: PATIENT FOLLOW-UP INFORMATION Diet: Discharge Activity: Discharge Restrictions: Wound Care Instructions: Remove Your Dressing In Days Call Your Doctor For: IF UNABLE TO CONTACT YOUR PHYSICIAN AND YOU FEEL IT IS AN EMERGENCY, GO TO THE NEAREST EMERGENCY ROOM OR CALL 911 Home Treatment: Devices/Equipment: Special Services: Additional Instructions: Primary Care Physician to provide the following pending test results: None Follow up: With: Address: When: [place] [address] Business (1) 04/26/2021 2:45 PM In the event that this physician does not participate in your insurance network, please consult with your insurance company to find a nearby participating provider. Comment: IRENEA JEFFREY S, have received the attached patient education materials/instruction s and have verbalized understanding: Patient Signature Date Clinican/Nurse Signature Date HERE ARE THE MEDICATION CHANGES THAT OCCURRED DURING YOUR HOSPITAL STAY New Medications [facility], [address] [place], [place] [id number], [phone] acetaminophen-oxycodo ne (Percocet 325 mg-5 mg Tab) 1-2 tab(s) Oral q4hr; as needed as needed for pain. Refills: 0. Last Dose: ____Next Dose: ____ docusate (Colace 100 mg Cap) 1 Capsules By Mouth 2 times a day as needed for constipation. Refills: 0. Last Dose: ____Next Dose: ____ meloxicam (meloxicam 15 mg Tab) 1 Tablets By Mouth every day. Refills: 0. Last Dose: ____Next Dose: ____ Medications to Continue with No Changes Other Medications atorvastatin (Lipitor) 40 Milligram By Mouth every day. Last Dose: ____Next Dose: ____ busPIRone 30 Milligram By Mouth 3 times a day. Last Dose: ____Next Dose: ____ duloxetine (Cymbalta) 60 Milligram By Mouth 2 times a day. Last Dose: ____Next Dose: ____ gabapentin 900 mg Oral. Last Dose: ____Next Dose: ____ hydrochlorothiazide-l isinopril (hydrochlorothiazide- lisinopril 12.5 mg-10 mg oral tablet) 1 Tablets By Mouth every day. Last Dose: ____Next Dose: ____ insulin degludec (Tresiba FlexTouch 200 units/mL subcutaneous solution) 75 Units Subcutaneous every day. Last Dose: ____Next Dose: ____ insulin isophane (Novolin N) 5 units AM 15 units NOON 30 units PM. Last Dose: ____Next Dose: ____ metformin 1,000 Milligram By Mouth 2 times a day. Last Dose: ____Next Dose: ____ morphine (morphine 15 mg oral tablet) 1 Tablets By Mouth 2 times a day. Last Dose: ____Next Dose: ____ perphenazine (perphenazine 4 mg Tab) 1 Tablets By Mouth 2 times a day. Last Dose: ____Next Dose: ____ No Longer Take the Following Medications celecoxib (Celebrex) 200 Milligram By Mouth 2 times a day. Comment: MEDICATION LIST PROVIDED FOR YOU IS A LIST OF YOUR CURRENT MEDICATIONS. PLEASE CARRY THIS WITH YOU AT ALL TIMES. acetaminophen-oxycodo ne (Percocet 325 mg-5 mg Tab) 1-2 tab(s) Oral q4hr; as needed as needed for pain. Refills: 0. atorvastatin (Lipitor) 40 Milligram By Mouth every day. busPIRone 30 Milligram By Mouth 3 times a day. docusate (Colace 100 mg Cap) 1 Capsules By Mouth 2 times a day as needed for constipation. Refills: 0. duloxetine (Cymbalta) 60 Milligram By Mouth 2 times a day. gabapentin 900 mg Oral. hydrochlorothiazide-l isinopril (hydrochlorothiazide- lisinopril 12.5 mg-10 mg oral tablet) 1 Tablets By Mouth every day. insulin degludec (Tresiba FlexTouch 200 units/mL subcutaneous solution) 75 Units Subcutaneous every day. insulin isophane (Novolin N) 5 units AM 15 units NOON 30 units PM. meloxicam (meloxicam 15 mg Tab) 1 Tablets By Mouth every day. Refills: 0. metformin 1,000 Milligram By Mouth 2 times a day. morphine (morphine 15 mg oral tablet) 1 Tablets By Mouth 2 times a day. perphenazine (perphenazine 4 mg Tab) 1 Tablets By Mouth 2 times a day. (more content not included)... Normal [facility] Interdisciplinary Note - Mir e Manageron 04-19-2021 Interdisciplinary Note - Tight Barrel Inspector PT is awake and alert in bed, await rounds with Dr. Yang. . PCP verified and Insurance information reviewed and DME discussed. Contact information provided and white board updated. No family present at this time. Pt lives with and [place] transport [place]. Inpatient status reviewed, Medicare rights reviewed and form signed, original provided to pt. Declines any concerns or anticipated DC needs. Plan to DC home today 04/19. MADELINE received a phone call from hospital ice platform supervisor Viri. [facility] pt Ct called and waiting at pharmacy for meds to be filled and having a issue with filling them as prescribed. MADELINE contacted [facility], spoke with Yifan. [facility] pt was prescribed Percocet and already on Morphine per pain management physician, and also already on clebrex, and prescribed Meloxicam. Will need clarification from . MADELINE contacted Dr. Yang office, VM left , situation explained and contact information provided. MADELINE again called office, spoke with Dr. Yang nurse, states she already received message from MADELINE and from pharmacist, waiting on Dr. Yang to come out of room and she will have him call to claify. Aware pt Ct is standing at pharmacy waiting for approval. MADELINE contacted pt Ct [phone] and updated. Viri, hospital ice platform supervisor updated. Normal [facility] Comment on above: Result Comment: Elec tronically Signed By: Petty KOO, Afia\.renard\Date and Time Signed: 04/19/21 15:36 EDT IntraOperative Documentson 0 04-19-2021 IntraOperative Documents [id number]#1 .00CD:127 Normal [facility] IntraOperative Documents [id number]#1 .00CD:127 Normal [facility] Lyteson 04-19-2021 Anion gap [Moles/Vol] 11 mmol/L Normal 6-16 [facility] Comment on above: Performed By: #### 2 [id number] #### [facility] [address] [place] [address] Chloride [Moles/Vol] 103 mmol/L Normal 101-111 [facility] Comment on above: Performed By: #### 2 [id number] #### [facility] [address] [place] [address] CO2 [Moles/Vol] 30 mmol/L Normal 21-31 [facility] Comment on above: Performed By: #### 2 [id number] #### [facility] [address] [place] [address] Potassium [Moles/Vol] 4.0 mmol/L Normal 3.5-5.3 [facility] Comment on above: Performed By: #### 2 [id number] #### [facility] [address] [place] [address] Sodium [Moles/Vol] 140 mmol/L Normal 135-145 [facility] Comment on above: Performed By: #### 2 [id number] #### [facility] [address] [place] [address] Message from Medicareon 03-28 Message from Medicare [id number]# 1.00CD:127 Normal [facility] Patient Education - Texton 0 04-19-2021 Patient Education - Text [place], [place] [facility] DISCHARGE INSTRUCTIONS: SHOULDER REPLACEMENT MEDICATIONS You will be given a prescription for pain medication. This should be taken with food as needed. This may cause stomach upset, dizziness, and possible constipation. Please notify the office if you have any medication allergies to this type of medication or if any problems develop with the medication. DRESSING CHANGES Leave your bandage in place until your follow up visit. The bandage is waterproof, so you may shower it home. Any increase in pain, temperature over 101 degrees, redness, or drainage should be reported to the office prior to your first office visit. ACTIVITY You may continue to progress activity as comfortably tolerated with your opposite arm. You may begin to use your elbow, wrist, and hand as directed in physical therapy. You should only remove your sling for bathing and to perform range of motion exercises for the hand, wrist, and elbow. Do not actively move your shoulder Continue to ice the shoulder several times per day until follow up. ANESTHESIA PRECAUTIONS You should not operate a vehicle, automobile, bicycle or motorcycle, machinery, or power tools, make any important decisions, or drink alcohol for 24 hours. It may be beneficial to have a responsible adult remain with you for your first 24 hours after surgery. You may be drowsy and light-headed. DRIVING Driving is legal, however, if you are involved in an accident, you must be able to prove that you maintained full control of your vehicle. For this reason, it is advised that you do not drive until your strength returns. PROBLEMS You should notify the office for any persistent or heavy bleeding, temperature above 101, redness, swelling, or drainage from the operative site, severe pain at the operative site, or the development of persistent vomiting. Kwame Yang DO [facility] [address] [address] Reviewed: [facility] Physician Orderon 04-19-2021 Physician Order [id number]#1 .00CD:127 Normal [facility] Preoperative Documentson Preoperative Documents [id number]#1 .00CD:127 Normal [facility] Preoperative Documents [id number]#1 .00CD:127 Normal [facility] Progress Note-Physicianon Progress Note-Physician Patient: KOKO MEIER Age: 60 years Sex: Male : 1960 Associated Diagnoses: None Author: Kwame Yang DO POD 1 s/p R reverse TSA pain controlled, one episode of N/V today, no CP/SOB R UE: dressing dry, moves all digits well, extends wrist and thumb, SILT digits WBC 12.3 Hgb 14 Hct 42.1 Plt 177 BMP WNL UA neg post op xrays reviewed yesterday. prosthesis in satisfactory position, no fractures Plan: - D/C home Objective Vital Signs 04/19/2021 11:15 EDT Temperature Oral 37.1 DegC Heart Rate Monitored 69 bpm Systolic Blood Pressure 187 mmHg HI Diastolic Blood Pressure 80 mmHg SpO2 92 % Normal [facility] Comment on above: Result Comment: Elec tronically Signed By: Kwame Yang DO\.br\Date and Time Signed: 04/19/21 12:55 EDT eGFRon 04-19-2021 GFR/1.73 sq M.predicted among blacks MDRD (S/P/Bld) [Vol rate/Area] mL/min/{1.73_m2} Normal >=59 [facility] Comment on above: Order Comment: Order added by Discern Expert. Result Comment: eGFR is race adjusted. AA=. Performed By: #### 2 [id number] #### [facility] [address] [place] [address] GFR/1.73 sq M.predicted among non-blacks MDRD (S/P/Bld) [Vol rate/Area] mL/min/{1.73_m2} Normal >=59 [facility] Comment on above: Order Comment: Order added by Discern Expert. Result Comment: Clinical Psychologist aracely kidney disease could be indicated at eGFR's of less than 60 mL/min/1.73m2. Kidney failure is indicated at less than 15 mL/min/1.73m2. Performed By: #### 2 [id number] #### [facility] [address] [place] [address] ABO/Rhon 04-18-2021 ABO/Rh Positive Invalid Interpretation Code [facility] Comment on above: Performed By: #### 2 [id number], [id number], [id number], [id number] ####[facility] [address] [place] [address] ABO/Rh History Checkon 04-18 ABO/Rh History Check Verified Hx Blood Type Normal [facility] Comment on above: Performed By: #### 2 [id number], [id number], [id number], [id number] ####[facility] [address] [place] [address] ABSC Tubeon 04-18-2021 ABSC Tube Interp Negative Normal [facility] Comment on above: Performed By: #### 2 [id number], [id number], [id number], [id number] ####[facility] [address] [place] [address] Blood Bank ID#on 04-18-2021 BBID# [id number] Invalid Interpretation Code [facility] Comment on above: Performed By: #### 2 [id number], [id number], [id number], [id number] ####[facility] [address] [place] [address] Blood Bank Slipon 04-18-2021 Blood Bank Slip [id number]#1 .00CD:127 Normal [facility] Capillary Glucose POCon 03-28 Glucose [Mass/Vol] 293 mg/dL High [address] [place] [address] Comment on above: Result Comment: Eva dav Meter Performed By: #### 2 [id number] #### [facility] [address] [place] [address] Glucose [Mass/Vol] 312 mg/dL High [address] [place] [address] Comment on above: Result Comment: Joanna daly RN/ Performed By: #### 2 [id number] #### [facility] [address] [place] [address] Glucose [Mass/Vol] 241 mg/dL [address] Comment on above: Result Comment: Eva dav Meter Performed By: #### 2 [id number] #### [facility] [address] [place] [address] Consent for Procedure/Surger yon 04-18-2021 Consent for Procedure/Surgery [id number]#1 .00CD:127 Normal [facility] Consent for Treatmenton 03-28 Consent for Treatment [id number]#1 .00CD:127 [facility] H&P Updateon 04-18-2021 H&P Update [id number]#1 .00CD:127 [facility] Main OR PACU I Recordon 03-28 Main OR PACU I Record PACU Phase I Docum ent Type FT Summary Primary Physician: Kwame Yang DO Finalized Date/Time: 04/18/21 16:44:21 Pt. Name: KOKO MEIER/Sex: 1960 Male Med Rec #: [id number] Physician: Kwame Yang DO Financial #: [id number] Pt. Type: O Room/Bed: Banner Admit/Disch: 04/18/21 08:03:48 - Institution: Case Times PACU I FT Pre-Care Text: Identifies barriers to communication and implements measures to provide psychological support Develops individualized plan of care, and ensures continuity of care Maintains patient's dignity and privacy, and maintains patient confidentiality Identifies and reports philosophical, cultural, and spiritual beliefs and values Identifies individual values and wishes concerning care Implements aseptic technique, and administers prescribed antibiotic therapy and immunizing agents as ordered Evaluates postoperative tissue perfusion Implements thermoregulation measures, and monitors body temperature Evaluates postoperative respiratory status Evaluates postoperative cardiac status Evaluates postoperative neurological status Assesses pain control, collaborated in initiating patient-controlled analgesia and implements alternative methods of pain control Verifies allergies, administers prescribed medications and solutions, evaluates response to medications Entry 1 In PACU I 04/18/21 12:44:00 Discharge from PACU 04/18/21 13:50:00 I Outcomes Met? Yes Last Modified By: Keira Knox RN 04/18/21 16:43:57 Post-Care Text: The patient demonstrates knowledge of the expected response to the operative or invasive procedure The patient's care is consistent with the individualized perioperative plan of care The patient's right to privacy is maintained The patient's value system, lifestyle, ethnicity, and culture are considered, respected, and incorporated into the perioperative plan of care The patient participates in decisions affecting his or her perioperative plan of care The patient is free from signs and symptoms of infection The patient has wound/tissue perfusion consistent with or improved from baseline levels established preoperatively The patient is at or returning to normothermia at the conclusion of the immediate postoperative period The patient's respiratory function is consistent with or improved from baseline levels established preoperatively The patient's cardiovascular status is consistent with or improved from baseline levels established preoperatively The patient's cardiovascular status is consistent with or improved from baseline levels established preoperatively The patient demonstrates and/or reports adequate pain control throughout the perioperative period The patient received appropriate medication(s), safely administered during the perioperative period Acuity Level PACU I FT Entry 1 Start Time 04/18/21 12:44:00 Stop Time 04/18/21 13:50:00 Acuity Level Acuity Level I Last Modified By: Keira Knox RN 04/18/21 16:44:17 Finalized By: Keira Knox RN Document Signatures Signed By: Keira Knox RN 04/18/21 16:44 [facility] Monitor Recordon 04-18-2021 Monitor Record [id number]# 1.00CD:127 Normal [facility] Operative Reporton Operative Report Patient: KOKO MEIER Age: 60 years Sex: Male : 1960 Associated Diagnoses: None Author: Kwame Yang DO DATE OF SURGERY: 04/18/2021 SURGEON: Kwame Yang D.O. 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 Right reverse total shoulder arthroplasty 2. Biceps tenodesis, right shoulder ANESTHESIA: General with a regional block ANESTHESIOLOGIST: Christiano Linton D.O. and Jimmy Winkler CRNA IMPLANTS USED: Arthrex Univers Revers System 1. 24 mm baseplate with 20 degree full augment, 25 mm central post, four peripheral screws measuring 36 mm nonlocking (anterosuperior & anteroinferior) and 24 mm nonlocking (posterosuperior & posteroinferior) 2. 39 +4 Glenosphere 3. size 3 humeral insert 4. Revers [place] size 9 stem with 39 (+2 right) Suturecup OPERATIVE INDICATIONS: Koko is a 60 year old right hand dominant male who has had persistent right shoulder pain for years. He had previous open rotator cuff repair many years ago by another surgeon. His pain has gotten progressively worse over time. He has lost range of motion and function. His symptoms interfere with his activities of daily living, ability to sleep at night, and quality of life. He wished to proceed with the above procedure after a discussion of the risks, benefits, complications, alternatives, and expectations. Please see office notes for further details. PROCEDURE: The correct operative site was identified and marked in the preoperative holding area. The patient was administered intravenous antibiotics in accordance with SCIP Protocol. He was transported to the Regional Block Room and administered a regional anesthetic nerve block by the anesthesiologist. He was then transported to the Operating Room and placed supine on the operating room table. He was administered a general anesthetic. After adequate anesthesia was obtained, he was placed into the beach chair position with all bony prominences well padded and the head secured in the padded figueroa. The head of the table was elevated approximately 45 degrees. He was administered one gram of Tranexamic acid intravenously about 15 minutes prior to the incision. Cohn catheter was inserted by nursing staff and pneumatic sequential stockings were applied to the legs. The right upper extremity was then prepped and draped in the usual sterile fashion. The extremity was draped free and placed onto a padded sterile leiva stand. A deltopectoral approach was utilized. An incision was made beginning at the coracoid process and extended distally towards the deltoid insertion. The incision was well away from the patient's incision over his anterior deltoid from previous cuff repair. Medial and lateral skin flaps were developed. Hemostasis achieved along the way with Bovie electrocautery and Aquamantys. The cephalic vein was located. The deltopectoral interval was identified and opened. The cephalic vein was retracted laterally. Deltoid adhesions within the subacromial space were released with a aquino. Littlejohn retractor was then placed to retract the deltoid. The conjoined tendon was identified and the clavipectoral fascia was opened just lateral to the conjoined tendon. The coracoacromial ligament was identified and the rotator interval was then opened. The bicipital sheath was opened and the biceps tendon was localized. The tendon was sutured to the upper border of the pectoralis major tendon with #2 fiberwire to complete the tenodesis. The tendon was cut above the tenodesis site and released proximally. The anterior circumflex vessels were cauterized with the Bovie and Aquamantys. A Darrauch retractor was placed into the glenohumeral joint and used to help apply tension to the subscapularis. A subscapularis peel was performed by releasing the tendon from the lesser tuberosity with the bovie. #2 fiberwire tag suture was placed into the subscapularis. The arm was then extended and externally rotated to deliver the proximal humerus. The greater tuberosity was absent of rotator cuff tissue. The 135 degree resection guide was then placed against the proximal humerus and a Bovie was used to create a naif at the humeral head for the position of the desired cut. The humeral head was then freehand cut with an oscillating saw. Inferior osteophytes at the humeral head were removed with a rongeur. Opening reamer was inserted into the proximal humerus and sequential reaming was performed. Sequential broaching starting with a size 6 broach was then performed up to a size 10. The size 10 broach was left in place. A metal protection plate was then placed onto the cut surface of the humerus. Attention was then turned to preparation of the glenoid. A posterior retractor was placed to retract the gregg (more content not included)... Normal [facility] Comment on above: Result Comment: Elec tronically Signed By: Kwame Yang DO\.br\Date and Time Signed: 04/18/21 12:52 EDT Outpatient Surgery Discharge Instructionon 04-18-2021 Outpatient Surgery Discharge Instruction [place] [id number] Patient Discharge Instructions PERSON INFORMATION Name: KOKO MEIER Date of : 1960 Current Date: 04/18/2021 09:55:09 PHYSICIANS Admitting Physician: Kwame Yang DO Discharge Diagnosis: Arthritis of shoulder region, right, degenerative KOKO MEIER Aura has been given the following list of follow-up instructions, prescriptions, and patient education materials: IF UNABLE TO CONTACT YOUR PHYSICIAN AND YOU FEEL IT IS AN EMERGENCY, GO TO THE NEAREST EMERGENCY ROOM OR CALL 911 RENEA Stein JEFFREY S, have received the attached patient education materials/instruction s and have verbalized understanding: May we do a follow up call? Yes No I was present when discharge instructions were given Patient Signature Date Clinican/Nurse Signature Date Follow up: With: Address: When: [place] [address] Business (1) 04/26/2021 2:45 PM Pharmacy Information: You may receive a survey from [employer] asking you to rate your care experience. Your feedback is important and will help us understand what we do well and how we can improve the quality of care we provide to you, your loved ones and our community. It?s an honor to serve you. Thank you for choosing [facility] HERE ARE THE MEDICATION CHANGES THAT OCCURRED DURING YOUR HOSPITAL STAY Medications to Continue with No Changes Other Medications atorvastatin (Lipitor) 40 Milligram By Mouth every day. busPIRone 30 Milligram By Mouth 3 times a day. celecoxib (Celebrex) 200 Milligram By Mouth 2 times a day. duloxetine (Cymbalta) 60 Milligram By Mouth 2 times a day. gabapentin 900 mg Oral. hydrochlorothiazide-l isinopril (hydrochlorothiazide- lisinopril 12.5 mg-10 mg oral tablet) 1 Tablets By Mouth every day. insulin degludec (Tresiba FlexTouch 200 units/mL subcutaneous solution) 75 Units Subcutaneous every day. insulin isophane (Novolin N) 5 units AM 15 units NOON 30 units PM. metformin 1,000 Milligram By Mouth 2 times a day. morphine (morphine 15 mg oral tablet) 1 Tablets By Mouth 2 times a day. perphenazine (perphenazine 4 mg Tab) 1 Tablets By Mouth 2 times a day. PATIENT EDUCATION INFORMATION Instructions: [place], [place] [facility] DISCHARGE INSTRUCTIONS: SHOULDER REPLACEMENT MEDICATIONS You will be given a prescription for pain medication. This should be taken with food as needed. This may cause stomach upset, dizziness, and possible constipation. Please notify the office if you have any medication allergies to this type of medication or if any problems develop with the medication. DRESSING CHANGES Leave your bandage in place until your follow up visit. The bandage is waterproof, so you may shower it home. Any increase in pain, temperature over 101 degrees, redness, or drainage should be reported to the office prior to your first office visit. ACTIVITY You may continue to progress activity as comfortably tolerated with your opposite arm. You may begin to use your elbow, wrist, and hand as directed in physical therapy. You should only remove your sling for bathing and to perform range of motion exercises for the hand, wrist, and elbow. Do not actively move your shoulder Continue to ice the shoulder several times per day until follow up. ANESTHESIA PRECAUTIONS You should not operate a vehicle, automobile, bicycle or motorcycle, machinery, or power tools, make any important decisions, or drink alcohol for 24 hours. It may be beneficial to have a responsible adult remain with you for your first 24 hours after surgery. You may be drowsy and light-headed. DRIVING Driving is legal, however, if you are involved in an accident, you must be able to prove that you maintained full control of your vehicle. For this reason, it is advised that you do not drive until your strength returns. PROBLEMS You should notify the office for any persistent or heavy bleeding, temperature above 101, redness, swelling, or drainage from the operative site, severe pain at the operative site, or the development of persistent vomiting. Kwame Yang, DO [facility] [address] [place] [address] Reviewed: Normal [facility] UA With Cult Reflexon 2020 Bilirubin Ql (U) Negative Normal Negative [facility] Comment on above: Performed By: #### 1 [id number] #### [facility] [address] [place] [address] Clarity (U) CLEAR Normal Clear [facility] Comment on above: Performed By: #### 1 [id number] #### [facility] [address] [place] [address] Color (U) YELLOW Normal Yellow [facility] Comment on above: Performed By: #### 1 [id number] #### [facility] [address] [place] [address] Epithelial cells.squamous LM.HPF (Urine sed) [#/Area] 0-2 Normal 0-2 [facility] Comment on above: Performed By: #### 1 [id number] #### [facility] [address] [place] [address] Glucose Test strip (U) [Mass/Vol] 2+ Abnormal Negative [facility] Comment on above: Performed By: #### 1 [id number] #### [facility] [address] [place] [address] Hemoglobin Ql (U) Negative Normal Negative [facility] Comment on above: Performed By: #### 1 [id number] #### [facility] [address] [place] [address] Ketones (U) [Mass/Vol] Negative Normal Negative [facility] Comment on above: Performed By: #### 1 [id number] #### [facility] [address] [place] [address] [place].plasma/[place]. RBC (Bld) [Mass ratio] 0-3 Normal 0-3 [facility] Comment on above: Performed By: #### 1 [id number] #### [facility] [address] [place] [address] Mucus Ql (Urine sed) TRACE Normal [facility] Comment on above: Performed By: #### 1 [id number] #### [facility] [address] [place] [address] Nitrite Ql (U) Negative Normal Negative [facility] Comment on above: Performed By: #### 1 [id number] #### [facility] [address] [place] [address] pH (U) 6.0 [pH] Invalid Interpretation Code 5.0-9.0 [facility] Comment on above: Performed By: #### 1 [id number] #### [facility] [address] [place] [address] Protein (U) [Mass/Vol] TRACE Abnormal Negative [facility] Comment on above: Performed By: #### 1 [id number] #### [facility] [address] [place] [address] Specific gravity (U) [Rel density] 1.020 Invalid Interpretation Code 1.005-1.030 [facility] Comment on above: Performed By: #### 1 [id number] #### [facility] [address] [place] [address] Type of Urine collection method Cohn Normal [facility] Comment on above: Performed By: #### 1 [id number] #### [facility] [address] [place] [address] Urobilinogen Qn (U) 0.2 {Rolando'U}/dL Normal 0.0-1.0 [facility] Comment on above: Performed By: #### 1 [id number] #### [facility] [address] [place] [address] WBC Auto Ql (U) Negative Normal Negative [facility] Comment on above: Performed By: #### 1 [id number] #### [facility] [address] [place] [address] WBC LM.HPF (Urine sed) [#/Area] 0-5 Normal 0-5 [facility] Comment on above: Performed By: #### 1 [id number] #### [facility] [address] [place] [address] XR Shoulder Complete Righton 04-18-2021 XR Shoulder Complete Right Exam Date/Time: 04/18/2021 12:58 EDT Reason for Exam: Post Op Report IMPRESSION: Postoperative changes without complication. EXAMINATION/TECHNIQUE : XR Shoulder Complete Right HISTORY: Post Op. COMPARISON: 11/09/2020. RESULT: Interval reverse total right shoulder arthroplasty. Hardware appears grossly intact with appropriate positioning within limits of the provided images on this portable study. Surrounding soft tissue gas and edema from the recent procedure. No other significant abnormality. FINAL REPORT Dictated: 04/18/2021 2:26 pm Jorge Zapien MD. Signed (Electronic Signature): 04/18/2021 2:26 pm Signed by: Jorge Zapien MD Transcribed by: BECKY Technologist: CHARLY, [facility] Outside Recordson 04-17-2021 Outside Records [id number]# 1.00CD:127 [facility] Outside Recordson 04-09-2021 Outside Records [id number]# 1.00CD:[address] [facility] [address] Upper Extremity w/o Contr ast Righton 04-04-2021 CT Upper Extremity w/o Contrast Right Exam Date/Time: 04/03/2021 11:15 EDT Reason for Exam: OA RIGHT SHOULDER Report IMPRESSION: CT FOR SHOULDER PROSTHESIS CREATION. OSTEOARTHROSIS OF THE RIGHT SHOULDER. EXAM: CT Upper Extremity w/o Contrast Right DATE: 04/03/2021 CLINICAL HISTORY: OA RIGHT SHOULDER. COMPARISON: CT arthrogram 12/20/2020. TECHNIQUE: Spiral unenhanced imaging was obtained of the right upper extremity for prosthesis creation, using Arthrex protocol. All CT scans at this facility use dose modulation, iterative reconstruction, and/or weight based dosing when appropriate to reduce radiation dose to as low as reasonably achievable. FINDINGS: Osteoarthrosis of the acromioclavicular, glenohumeral and sternoclavicular joints appears unchanged. Calcific tendinitis of the supraspinatus and infraspinatus tendons appears unchanged. There is no fracture, dislocation, worrisome bone destruction, radiodense foreign bodies, or other findings of concern identified. FINAL REPORT Dictated: 04/04/2021 1:54 pm Jerome Warren MD Signed (Electronic Signature): 04/04/2021 1:54 pm Signed by: Jerome Warren MD Transcribed by: BECKY Technologist: CONSUELO [facility] Coding Summary.on 04-04-2021 Coding Summary. CD:[id number]:[id number] G h0bWw+PGhlYWQ+RZ8ZFOM yQ93lvQUxpY9CF2tMZB4J GHGZHYFXIF2FRV2juRR6V HxdL3TdiqAu FvqhnMHiZN62PTd3AVS1p JnfCTnacS8myYWhS3t3Cp SvHL65rF10VIeeDFTvFzF 3LjZpbjsgbWFy C5vuUeHgqTYfTue+PHRhY mxlIHdpZHRoPScxMDAlJy MgxVivLQ2dNd9xKQIbKAU vbGxhcHNlOiBj u6qqNFQwVRikHH5mtEgsC 7FlrSB4MWFdk6n4Qe79jE I+MSBmSVO2wFszRTaqv04 0WuQvq7cxJHT9 jEZbIAbrQNS5D82sy1A5D FOlEVKsCCB1tDV6bS5pdW pzsbjgM0VjhVEbDfT4ANK 8yXDcbX5pvJtj toazvF9nUvs+Y95OWF9MF KWCQW8OGpc7W2IkHubbyR I+NR05DUWhDI99fWBytKD lb4taeRy4VuYw ILQjILU8kXjwBQpvo0ZvE XLyB56hjMQaw8H5HPFqpW ihpMSwNxDfjXC0bQ1lRLh lobedr1dpqkxs Aqfxk9ayii98qH47E89nU YjbTTAxOOR9HTGiDCUpvU zcff6ktB2aOe2+TFmwa5z ak9amdMo9LcFq IXUfftEexCtdRLB4f9JnZ p84W0ZmgNikr3TmYfv5jn 58mCGxe0E1rYO3LQhqJNS jnP1yTUeuZcY6 HSLwSsDbiS68sLNgEKfqH r9pdPxbzGwpBK9vXFEwkn qrEPKybC0pWPIqzFRdlPh yNC8uQRHzdfdm r881SdNtMBW9YHBahIOnM 6KbcT0xCeMcEDUoSATzU9 WfjZEkCYcsE112OMizCuG 6HBWnbmLkB0Xy OCDnySvsWgU5r1K1Ga8Pt 3PtdldfLGL3VHusGTF6Xf Z6RlXuYxM3K5KqKqk7BVS vvOzdEA1aX9El KXBaydqovirtuPZ6ELHrA NVddE09aUDlSEygDm8jo2 G6f360QWTrMAYiqB40Eh3 udDogMTBwdCBU lH3cwllzf5jjmbqpFvBfP QZaYYn1PLe8EFJdgMooCt BxBWF0UcV3JXJ8yHFpiG4 enTwefqxjgT9p Oyc+O27ltP0iCDU7WEJ7s qbpFOHcpuOfNQ22GA27R4 RyPjwvdGFibGU+PGRpdiB smMcfXP2eFaMq d4yja5UkMEaeE9XyWSEdE KroYcn6WXMqYJM5fUA8wW 1eSLDnBQmph0L5zOM2O6U ydhMkok1uv8da DQWyRCllC71faSUuy2T5D JBerED5YDJwxBtiUeNgtK 93Oyc+RZUigCdpw1LaNui fk4nym3fxcRe1 ZcSkQNEgnyDhsYudBZO8a 1QbTr64W70oHZjfLSNlAS HaQNFdAZAucNybom3zyG8 wIi8+PGNvbCB3 sQE3eP6wCTIuSqY2NFfxH 829EeOrqLKsLoltc1pqu3 hlqHl6RlHrWVCicdEfqUt mUSZ4h1GmRx27 F15vUTeyOBHeHCHcFZOlR ZZpbKkyjm7srR4wHe8+PC 3kn1gqug12lS62uPI+PHR gQGF4kSlfHDla IIUpoC6vIWpyWlP7OYUwW mGqdX97rGMeUBuaQx0plS xqvRicFV5uKCLqegtxi86 8TxBwn7moGGQs wJSyQAzfVBG0B26nh9J8R RTmNJAnLSU6iYO7yG7baR lnbjogbGVmdDsgdmVydGl vBVtfQFblX203 IHRvcDsnPlBhdGllbnQgT kZgBDa6S3XyLkq3PYOeuT lpQD2pkGKsECowJy7ghUr tzQxdCH7lUCHf ewcjq766QxFix2mkZATat QVsISfgDJE6A79tx3N7FQ VcLLCmJPP8oUR0yK3axVz nbjogbGVmdDsg owJgyHvrBTtiFSrtY610B HRvcDsnPkJpcnRoIERhdG H4GG39KF56tMMcb4G3gKU 4D1JfCCOlsauh ochxpBP8DKPdULTkcG27X n9scVdsYw8xWFDxPPC1HR HxeOSnC0McsJ1sGmYyAIA gTOMyS9DdpQWm FLdgJ133PDhxKrT3XXHbk vYwB4NlZWZegStiMfF2b1 I8Sz3YY0K1WT13HH30hFF eo2I2cWO8H8Th WWLrcdvadijfnUD4QARdH AMjqM14Dm1vwVdeEn2zNM UkYTA0MAJmnJPtV2QynY9 yOiAjMDAwMDAw C9FqkGBvDDrpW178FZmbY kG9KLNfcbKuM3JjXHDvrF hgEqW7j1C1Cr0MRVk3QB0 0QH53cFPas4E5 gFD7S4WeDNZepupqjgysh VB8LPWqJADotV82Su1ajI nqBf9aMCCyZBV9OAMguGX zU5AbqS8rDqEd ZQFhFUGsM4GudYGfNVmwP 401HFufZuU2LBQfazEpQ6 DxTOWqrAhySxU9a3P7Pb3 GXRDgON29BPS0 tUR2FY42LD36B0NuYvecf GFibGU+PHRhYmxlIHdpZH RoPScxMDAlJyBzdHlsZT0 aPu9uQIGcJBWd dEtjjCPsEhWlr6nvNVUnG FjbXX4neBkxZ2InqFI1TN Oyt4q1Pj23B57gX4JqkWX +TNPodQD2bYP1 hJ1gVyZjShX2HQqkU771E tQbzIZfUmiuj2zqd9hvxI u6IpW8USRynrNjjSmtIQJ 6y7MmVr47A81l IHdpZHRoPSIxNSUiIHZhb Fqtox1lcF4qNv6+PGNvbC Q3wTM8yS6wJfKmVvS8KFh hW662ReWtmJKx Pbxwz7rdy1bcgWe9LfMdG ECfudNcjIziNAM7d9TwPt 13D2ZdqYlro9KdEza8gu2 0zSZmq6Z9zXJ6 Q0JdMWMnemzxtWDctEbwO D2hPLFdepuhNENlsY2bDX KeH9f3KeDqDoB2TCneI3D gcpZ4BSJmhNYn DEnmWXW6T58mb3E0FYXtR FYnBVL1sVT7xA9nrUrpia ogbGVmdDsgdmVydGljYWw nJTqlL715UMTo cMhjZGDueO3iYJXazPEdb LqzMC0iLPBkgbkhZaSEZI 5ERVIsIEpFRkZSRVkgUzw vdGQ+PHRkIHN0 tKbwFVqiQUJxdF6qXYMbT 9t3OtSsQxM3PLelB3ZiSV RdeqkwGw70qY0fHiAtPbN 3MNezP5KfjlH9 KRHtrSSrXVkcVUV3I31fc 5P1KULgJOVtOKU6zLE7iO 1hbGlnbjogbGVmdDsgdmV ydGljYWwtYWxp W125GJUbqBkgHnTxFrFcS jO9HLu0L5NfRzc3AWNfyR vtGF4owKZhYVdzAz3pkWi vlWbeGK0sGOZx irkbRFKfhM6tSIErkUJgi IxzXJ2nNWNzstrez871Ra GjOQU8PZVfpPZhU4XecU4 yOiAjMDAwMDAw C9VjgQVzTKxpI523FWjiH uA0VQAxcyUsL2IsDVFifY hmNpZ2t6O6Xk97WmTTONT yczwvdGQ+PHRk ZIV4zAvvSKctAIOntZ4hY VVsY9r7IfUpUpC8NUfvS4 SaCNTueoisQm80qN8lMvU oImW5LLawG2Ab ccM2TLNznUCwUStkSAF9A 43sw5S5FNMkQUCyMLP3cV S7wH6ewDnrdipbhUZwyCb gdmVydGljYWwt EPmzP438KXTfkQqwCm5rp AJ6K2TkQje2ADLcuHjnOJ 4piSUmFQzpZo2ylKhumDc mPM3vTBLznrhi KHYijE8iBZXcaCXwlLalE H6sPFBnklyrp312DuWwRU R9XTXdrEJmV1IdrG7eTgA jYUAcXTCqW9Ru vADuZFelP048XDzpBbJ3A GFmnfOkU2NqEMUddZduSr M1q4H8Fb3BpKAoIWLkIM9 8AI20BD60W1Nh PjwvdGFibGU+PHRhYmxlI HdpZHRoPScxMDAlJyBzdH wfAM7lNm6rEWLcKIBsoMj kqLVtKdKsp6bg ZDIjRCqxVF6ibVigQ0Npc CR2IYSzv1d7Xt51Y78hC2 JvdXA+YKVynQA3rID3eX1 gRdQwUsR3UQgn L114CwBfyMAzOrbcs8nkm 7swgAj1MtEdFQToyqJzxP jiBDC2c2RwIq81Q85oQBl pZHRoPSIyMCUi RTOvcBobwo7rzG6pFp7+P SExjQQ9lLE0iY5zCoAsXm B5QBmfR343MuYgnWZoIhm iI29wO3XoiVP+ ZYMaNfs9QPCkrTvmTZ3ym UEtDLtvIa1lMPJ7SeIzRm AnTWkyV3QyQUNxdnfxswk ugIV0UZUbGBEh rH83Lw5obOmxMg2iXDWbG TK2TXFxcKGcP6ZjcM7nFc XdYNCxPHDtV8HuiBXjPNj cT351QIrwOaT9 EYRkgwYcU9KvATMfbBcnJ xI9z3L2Nb5SyKmegHWoAZ 1qKeVrIQt0I5GxFyn7OCH jxXxwEU6dtAWz IVqbPc7ygCyfxSxjTD3yR AMoaqzyb632RzYma3ytMT QqzSDwFUbvILF2V80sr8K 1YPWpDAYlHMR7 hBF2xW3eyWumgiuhbQCnd DsgdmVydGljYWwtYWxpZ2 35ZCJlrQwmXfTPPid9K5E tZox5VVQdlKyq YS8aaQYxXPxwXj4jtXzyz NitVJ4bJUVhfsywc291Gj Nrq7beASUmmBQqYWidTHC 0R11te9T9OVDx HTRkKXE8jWA9xN0dnRvzw jogbGVmdDsgdmVydGljYW xqELwvB460HDOuhDvgCa8 WWxg0S6UrCim3 UBSemHjiON7omCYmUTueO y3fuRkvoPtnTX6mHJFgby bwz463AuFgb7nhQNBvvOE rOQevUMX2F42u o9U4JVBbNLLsIGY5hXG2o Y6mbYnfanuybVWpjEbwdh XcmEaxOIepCFxyB118LBV vcDsnPlBheWVy OjwvdGQ+PJ33gy12N6JeE vpjUcf0ZRAxZHO8sWO1xI 4cWUJqHPzoa3R5aHA4H5A davAcco5ci7lp YXBz (more content not included)... Normal [facility] Immunization Recordson 04-04 Immunization Records [id number]#1. 00CD:127 Normal [facility] ABO/Rh Retypeon 04-03-2021 ABO/Rh Retype Interp Positive Invalid Interpretation Code [facility] Comment on above: Performed By: #### 1 [id number] ####[facility] [address] [place] [address] BUNon 04-03-2021 Urea nitrogen [Mass/Vol] 22 mg/dL High 5-21 [facility] Comment on above: Performed By: #### 1 [id number] #### [facility] [address] [place] [address] CBC w/Indiceson 04-03-2021 Erythrocyte distribution width (RBC) [Ratio] 12.7 % Normal 10.9-14.2 [facility] Comment on above: Performed By: #### 1 [id number] #### [facility] [address] [place] [address] Hematocrit (Bld) [Volume fraction] 47.4 % Normal 37.7-49.0 [facility] Comment on above: Performed By: #### 1 [id number] #### [facility] [address] [place] [address] Hemoglobin (Bld) [Mass/Vol] 16.1 g/dL Normal 13.5-17.5 [facility] Comment on above: Performed By: #### 1 [id number] #### [facility] [address] [place] [address] MCH (RBC) [Entitic mass] 31.8 pg Normal 27.0-34.0 [facility] Comment on above: Performed By: #### 1 [id number] #### [facility] [address] [place] [address] MCHC (RBC) [Mass/Vol] 34.1 g/dL Normal 31.4-36.0 [facility] Comment on above: Performed By: #### 1 [id number] #### [facility] [address] [place] [address] MCV (RBC) [Entitic vol] 93.2 fL Normal 80.0-100.0 [facility] Comment on above: Performed By: #### 1 [id number] #### [facility] [address] [place] [address] Platelet mean volume (Bld) [Entitic vol] 9.3 fL Normal 6.4-10.8 [facility] Comment on above: Performed By: #### 1 [id number] #### [facility] [address] [place] [address] Platelets (Bld) [#/Vol] 168.0 E9/L Normal 150.0-500.0 [facility] Comment on above: Performed By: #### 1 [id number] #### [facility] [address] [place] [address] RBC (Bld) [#/Vol] 5.1 E12/L Normal 4.3-5.9 [facility] Comment on above: Performed By: #### 1 [id number] #### [facility] [address] [place] [address] WBC corrected for nucl RBC Auto (Bld) [#/Vol] 8.0 E9/L Normal 4.0-11.0 [facility] Comment on above: Performed By: #### 1 [id number] #### [facility] [address] [place] [address] Consent for Treatmenton Consent for Treatment [id number]#1 .00CD:127 Normal [facility] Creatinineon 04-03-2021 Creatinine [Mass/Vol] 0.7 mg/dL Normal 0.5-1.3 [facility] Comment on above: Performed By: #### 1 [id number] #### [facility] [address] [place] [address] Glucoseon 04-03-2021 Glucose [Mass/Vol] 249 mg/dL High 55-199 [facility] Comment on above: Performed By: #### 1 [id number] #### [facility] [address] [place] [address] [id number] 04-03-2021 HbA1c (Bld) [Mass fraction] 7.9 % High <=5.9 [facility] Comment on above: Performed By: #### 7 [id number] #### [facility] [address] [place] [address] Lyteson 04-03-2021 Anion gap [Moles/Vol] 15 mmol/L Normal 6-16 [facility] Comment on above: Performed By: #### 1 [id number] #### [facility] [address] [place] [address] Chloride [Moles/Vol] 94 mmol/L Low 101-111 [facility] Comment on above: Performed By: #### 1 [id number] #### [facility] [address] [place] [address] CO2 [Moles/Vol] 27 mmol/L Normal 21-31 [facility] Comment on above: Performed By: #### 1 [id number] #### [facility] [address] [place] [address] Potassium [Moles/Vol] 4.2 mmol/L Normal 3.5-5.3 [facility] Comment on above: Performed By: #### 1 [id number] #### [facility] [address] [place] [address] Sodium [Moles/Vol] 132 mmol/L Low 135-145 [facility] Comment on above: Performed By: #### 1 [id number] #### [facility] [address] [place] [address] XR Chest 2 Viewson XR Chest 2 Views Exam Date/Time: 04/03/2021 10:55 EDT Reason for Exam: Pre Op Report IMPRESSION: THERE ARE NO ACUTE CARDIOPULMONARY CHANGES. CLINICAL HISTORY: Pre Op COMPARISON: NONE. FINDINGS: Status post lower anterior cervical spine fusion. The cardiomediastinal silhouette is unremarkable. The lungs are free of infiltrates effusions or consolidations. The bones and soft tissues are within normal limits. There are intrathecal neurostimulator leads in the mid thoracic spine. FINAL REPORT Dictated: 04/03/2021 3:15 pm Manohar Jenkins MD, V. Signed (Electronic Signature): 04/03/2021 3:15 pm Signed by: Manohar Jenkins MD, V. Transcribed by: BECKY Technologist: JOSE ELIAS Normal [facility] eGFRon 04-03-2021 GFR/1.73 sq M.predicted among blacks MDRD (S/P/Bld) [Vol rate/Area] mL/min/{1.73_m2} Normal >=59 [facility] Comment on above: Order Comment: Order added by Discern Expert. Result Comment: eGFR is race adjusted. AA=. Performed By: #### 1 [id number] #### [facility] [address] [place] [address] GFR/1.73 sq M.predicted among non-blacks MDRD (S/P/Bld) [Vol rate/Area] mL/min/{1.73_m2} Normal >=59 [facility] Comment on above: Order Comment: Order added by Discern Expert. Result Comment: Clinical Psychologist aracely kidney disease could be indicated at eGFR's of less than 60 mL/min/1.73m2. Kidney failure is indicated at less than 15 mL/min/1.73m2. Performed By: #### 1 [id number] #### [facility] [address] [place] [address] Physician Orderon 03-01-2021 Physician Order [id number]# 1.00CD:127 Normal [facility] Pre-Certification Formon Pre-Certification Form [id number] [id number]# 1.00CD:127 Normal [facility] Physician Orderon 02-28-2021 Physician Order [id number]# 1.00CD:127 Normal [facility] Coding Summary.on 12-21-2020 Coding Summary. CODING DATE: 12/21/2020 FINAL [facility] STATUS: Home (Routine DC) PAYOR: Medicare APC DESCRIPTION 5572 Level 2 Imaging with Contrast ADMIT DX: REASON FOR VISIT DX: M75.101 Unspecified rotator cuff tear or rupture of right shoulder, not specified as traumatic FINAL DX: PRINCIPAL: M75.101 Unspecified rotator cuff tear or rupture of right shoulder, not specified as traumatic SECONDARY: S46.811A Strain of other muscles, fascia and tendons at shoulder and upper arm level, right arm, initial encounter M19.011 Primary osteoarthritis, right shoulder Z98.1 Arthrodesis status I65.21 Occlusion and stenosis of right carotid artery PYMT PROC APC STAT DESCRIPTION DOCTOR NAME DATE NOTE: The code number assigned matches the documented diagnosis and / or procedure in the patient's chart. However, the narrative phrase printed from the coding software may appear abbreviated, or result in slightly different terminology. Coded By: Soledad Lilly CphT Date Saved: 12/21/2020 01:14 pm Normal [facility] CT Upper Extremity w/ Contra st [place] 12-20-2020 CT Upper Extremity w/ Contrast Right Exam Date/Time: 12/20/2020 09:43 EST Reason for Exam: Unspecified rotator cuff tear or rupture of right shoulder, not specified as traumatic Report IMPRESSION: Full-thickness rotator cuff tearing involving entire supraspinatus and likely portions of subscapularis and infraspinatus. Associated medial retraction of the torn fibers and muscle volume loss involving supraspinatus. Intra-articular tendinosis and medial subluxation of the long head biceps tendon. Mild glenohumeral osteoarthritis, especially inferiorly with associated degenerative tearing/fraying involving the inferior labrum. Severe acromioclavicular osteoarthritis. Undersurface spurring from the acromion. EXAMINATION: CT Upper Extremity w/ Contrast Right HISTORY: Unspecified rotator cuff tear or rupture of right shoulder, not specified as traumatic. TECHNIQUE: Thin slice axial images with coronal and sagittal reconstructions performed after intra-articular contrast injection detailed in the arthrogram report. All CT scans at this facility use dose modulation, iterative reconstruction, and/or weight based dosing when appropriate to reduce radiation dose to as low as reasonably achievable. Comparison: CT 07/08/2019. RESULT: Rotator cuff tendons: Contrast extending into the subacromial subdeltoid bursa, consistent with full-thickness rotator cuff tear. There appears to be full-thickness tearing involving entire supraspinatus, some anterior fibers of infraspinatus, and some superior fibers of subscapularis, within limits of the study. Medial retraction of the torn fibers to the acromion. Long head biceps tendon: Appears grossly intact, within limits of the study with intra-articular tendinosis and medial subluxation. Muscle: Mild volume loss of supraspinatus. Labrum: Degenerative fraying/tearing, especially involving the inferior labrum. Cartilage: Small osteophytes with small area of full-thickness cartilage loss involving the inferior joint. Bones and Marrow: No evidence of fracture or bone marrow replacing process. Report Acromioclavicular Joint: Severe degenerative changes with awgr-qu-catl contact, extensive subchondral cystic changes involving the distal clavicle, small joint bodies or fractured osteophytes, and also contrast extending into the joint. Downsloping of the acromion with undersurface spurring. Other: Partially imaged degenerative and postsurgical changes within the cervical spine. Right carotid calcifications. Visualized lung without acute finding with right lung apex pleural-parenchymal thickening/scarring. FINAL REPORT Dictated: 12/20/2020 12:51 pm Jorge Zapien MD Signed (Electronic Signature): 12/20/2020 12:51 pm Signed by: Jorge Zapien MD Transcribed by: BECKY Technologist: ELLA Technical Comments GFR (mL/min/1/73m2) . Contrast: None Contrast amount in ml's: 0 Normal [facility] Consent for Treatmenton 11-28 Consent for Treatment [id number] 102 [id number]#1 .00CD:127 Normal [facility] Creatinineon 12-20-2020 Creatinine [Mass/Vol] 0.7 mg/dL Normal 0.5-1.3 [facility] Comment on above: Performed By: #### 2 [id number], [id number] #### [facility] [address] [place] [address] Physician Orderon 12-20-2020 Physician Order [id number]#1 .00CD:127 Normal [facility] RAD - Consent to Procedureon 12-20-2020 RAD - Consent to Procedure [id number]#1 .00CD:127 Normal [facility] XR Inj Shoulder Arthrogram R ighton 12-20-2020 XR Inj Shoulder Arthrogram Right Exam Date/Time: 12/20/2020 09:22 EST Reason for Exam: ROTATOR CUFF TEAR Report IMPRESSION: SUCCESSFUL INJECTION OF CONTRAST INTO THE RIGHT SHOULDER JOINT. POSSIBLE CALCIFIC TENDINITIS OF THE RIGHT SHOULDER. CLINICAL HISTORY: ROTATOR CUFF TEAR COMPARISON: 07/08/2019. FINDINGS: Under the aseptic condition and fluoroscopic control, about 10 cc of Isovue-300 was introduced into the right shoulder joint. Patient tolerated the procedure well. Burner Machine Operator image shows minimal calcification adjacent to the superior and lateral aspect of the humeral head, suggesting possible calcific tendinitis. Radiation dose was 21 mGy. FINAL REPORT Dictated: 12/20/2020 10:56 am Earle Booth M.D. Signed (Electronic Signature): 12/20/2020 10:56 am Signed by: Earle Booth M.D. Transcribed by: BECKY Technologist: ANDRE Technical Comments Contrast: Isovue 300 Contrast amount in ml's: 12 Radiation Dose: Ka,r in mGy = 21 Normal [facility] eGFRon 12-20-2020 GFR/1.73 sq M.predicted among blacks MDRD (S/P/Bld) [Vol rate/Area] mL/min/{1.73_m2} Normal >=59 [facility] Comment on above: Order Comment: Order added by Discern Expert. Result Comment: eGFR is race adjusted. AA=. Performed By: #### 2 [id number], [id number] #### [facility] [address] [place] [address] GFR/1.73 sq M.predicted among non-blacks MDRD (S/P/Bld) [Vol rate/Area] mL/min/{1.73_m2} Normal >=59 [facility] Comment on above: Order Comment: Order added by Discern Expert. Result Comment: Clinical Psychologist aracely kidney disease could be indicated at eGFR's of less than 60 mL/min/1.73m2. Kidney failure is indicated at less than 15 mL/min/1.73m2. Performed By: #### 2 [id number], [id number] #### [facility] [address] [place] [address] Physician Orderon 12-08-2020 Physician Order [id number]#1 .00CD:127 Normal [facility] Pre-Certification Formon Pre-Certification Form [id number]#1 .00CD:127 Normal [facility] Consent for Treatmenton Consent for Treatment [id number] 102 [id number]#1 .00CD:127 [facility] RAD - MISCon 12-05-2020 RAD - MISC [id number]# 1.00CD:127 Normal [facility] RAD - MRI Screening Formon 0 12-05-2020 RAD - MRI Screening Form [id number]# 1.00CD:127 Normal [facility] Physician Orderon 11-29-2020 Physician Order [id number]#1 .00CD:127 Normal [facility] Pre-Certification Formon Pre-Certification Form [id number]#1 .00CD:127 Normal [facility] Vital Signs Date Time Vital Sign Value Performing Clinician Facility 10-14-2023 09:40-0500 Body height 170.18 cm Karime Nguyen Other [facility] Other 10-14-2023 09:40-0500 Body mass index (BMI) [Ratio] 37.9 kg/m2 Karime Nguyen Other [facility] Other 10-14-2023 09:40-0500 Body weight 109.77 kg Karime Nguyen Other [facility] [employer] Other 10-02-2023 09:10-0500 Body height 170.18 cm DO Josh Bunting Work Phone: [facility] 10-02-2023 09:10-0500 Body mass index (BMI) [Ratio] 37.3 kg/m2 DO Josh Bunting Work Phone: [facility] 10-02-2023 09:10-0500 Body weight 108 kg DO Josh Bunting Work Phone: [facility] 10-02-2023 08:53-0500 Body temperature 98.5 [degF] DO Josh Bunting Work Phone: [facility] 10-02-2023 08:53-0500 Diastolic blood pressure 82 mm[Hg] DO Josh Bunting Work Phone: [facility] 10-02-2023 08:53-0500 Heart rate 92 /min DO Josh Bunting Work Phone: [facility] 10-02-2023 08:53-0500 Respiratory rate 18 /min DO Josh Bunting Work Phone: [facility] 10-02-2023 08:53-0500 SaO2% (BldA) [Mass fraction] 95 % DO Josh Bunting Work Phone: [facility] 10-02-2023 08:53-0500 Systolic blood pressure 169 mm[Hg] DO Josh Bunting Work Phone: [facility] 09-16-2023 09:20-0500 Body height 170.18 cm Karime Nguyen Other [facility] Other 09-16-2023 09:20-0500 Body mass index (BMI) [Ratio] 37.59 kg/m2 Karime Nguyen Other [facility] Other 09-16-2023 09:20-0500 Body weight 108.86 kg Karime Nguyen Other [facility] Other 07-29-2023 16:43-0400 Body height 167.64 cm DO Josh Bunting Work Phone: [facility] 07-29-2023 16:43-0400 Body temperature 98 [degF] DO Josh Bunting Work Phone: [facility] 07-29-2023 16:43-0400 Body weight 104.32 kg DO Josh Bunting Work Phone: [facility] 07-29-2023 16:43-0400 Diastolic blood pressure 74 mm[Hg] DO Josh Bunting Work Phone: [facility] 07-29-2023 16:43-0400 Heart rate 99 /min DO Josh Bunting Work Phone: [facility] 07-29-2023 16:43-0400 Respiratory rate 24 /min DO Josh Bunting Work Phone: [facility] 07-29-2023 16:43-0400 SaO2% (BldA) [Mass fraction] 94 % DO Josh Bunting Work Phone: [facility] 07-29-2023 16:43-0400 Systolic blood pressure 141 mm[Hg] DO Josh Bunting Work Phone: [facility] 03-26-2023 11:26-0400 Heart rate 88 /min Donny Peralta APRN.MACHINE TESTER Work Phone: [facility] 03-26-2023 11:26-0400 Respiratory rate 17 /min Donny Peralta APRN.MACHINE TESTER Work Phone: [facility] 03-26-2023 11:26-0400 SaO2% (BldA) [Mass fraction] 98 % Donny Peralta APRN.MACHINE TESTER Work Phone: [facility] 04-16-2022 09:30-0400 Body height 170.18 cm Mariel Mcgraw Other [employer] [employer] Other 04-16-2022 09:30-0400 Body temperature 97.6 [degF] Mariel Mccarthyban Other [facility] [employer] Other 04-16-2022 09:30-0400 Diastolic blood pressure 78 mm[Hg] Kamal Chaban Other [employer] Other 04-16-2022 09:30-0400 Respiratory rate 20 /min Kamal Chaban Other [facility] [employer] Other 04-16-2022 09:30-0400 SaO2% (BldA) [Mass fraction] Kamal Chaban Other [facility] Other 04-16-2022 09:30-0400 Systolic blood pressure 154 mm[Hg] Kamal Chaban Other [facility] [employer] Other 01-08-2022 14:30-0400 Body height 170.18 cm Kamsam Mccarthyban Other [facility] [employer] Other 01-08-2022 14:30-0400 Body mass index (BMI) [Ratio] 37.27 kg/m2 Mariel Mccarthyban Other [facility] Other 01-08-2022 14:30-0400 Body temperature 97.4 [degF] Mariel Mccarthyban Other [facility] Other 01-08-2022 14:30-0400 Body weight 107.96 kg Mariel Mccarthyban Other [facility] [employer] Other 01-08-2022 14:30-0400 Diastolic blood pressure 72 mm[Hg] Mariel Mccarthyban Other [facility] [employer] Other 01-08-2022 14:30-0400 Respiratory rate 20 /min Mariel Mccarthyban Other [facility] [employer] Other 01-08-2022 14:30-0400 SaO2% (BldA) [Mass fraction] 95 % Mariel Mcgraw Other [facility] [employer] Other 01-08-2022 14:30-0400 Systolic blood pressure 130 mm[Hg] Mariel Mccarthyban Other [facility] Other 09-06-2021 10:00-0500 Body height 170.18 cm Mariel Mccarthyban Other [facility] Other 09-06-2021 10:00-0500 Body mass index (BMI) [Ratio] 37.59 kg/m2 Mariel Mccarthyban Other [facility] Other 09-06-2021 10:00-0500 Body temperature 96.8 [degF] Mariel Mccarthyban Other [facility] [employer] Other 09-06-2021 10:00-0500 Body weight 108.86 kg Mariel Mccarthyban Other [facility] Other 09-06-2021 10:00-0500 Diastolic blood pressure 68 mm[Hg] Ulyssesal Chaban Other [employer] Other 09-06-2021 10:00-0500 Respiratory rate 20 /min Mariel Mccarthyban Other [employer] Other 09-06-2021 10:00-0500 SaO2% (BldA) [Mass fraction] 95 % Mariel Mccarthyban Other [employer] Other 09-06-2021 10:00-0500 Systolic blood pressure 136 mm[Hg] Mariel Chaban Other [facility] Other 07-23-2021 10:30-0400 Body height 170.18 cm Mariel Mccarthyban Other [employer] Other 07-23-2021 10:30-0400 Body mass index (BMI) [Ratio] 38.21 kg/m2 Mariel Mccarthyban Other [employer] Other 07-23-2021 10:30-0400 Body temperature 96.1 [degF] Mariel Mccarthyban Other [facility] [employer] Other 07-23-2021 10:30-0400 Body weight 110.68 kg Mariel Chaban Other [facility] [employer] Other 07-23-2021 10:30-0400 Diastolic blood pressure 78 mm[Hg] Mariel Chaban Other [employer] Other 07-23-2021 10:30-0400 Respiratory rate 20 /min Mariel Mcgraw Other [facility] Other 07-23-2021 10:30-0400 SaO2% (BldA) [Mass fraction] 95 % Mariel Mcgraw Other [facility] Other 07-23-2021 10:30-0400 Systolic blood pressure 150 mm[Hg] Mariel Mcgraw Other [facility] Other Encounters Encounter Date Encounter Type Care Provider Facility Start: 10-23-2023 End: 10-23-2023 ambulatory Josh Bunting Facility:[facility] Start: 10-23-2023 End: 10-23-2023 ambulatory DO Josh Bunting Work Phone: [facility] Work Phone: Start: 10-23-2023 End: 10-23-2023 Patient encounter procedure DO Josh Bunting Work Phone: [facility]-Pre-Surgical Testing Work Phone: Start: 10-14-2023 End: 10-14-2023 ambulatory Karime Nguyen Other [facility] Other Start: 10-14-2023 Office outpatient visit 40 minutes Karime Nguyen [facility] Start: 10-09-2023 End: 10-09-2023 ambulatory FEROZ PATEL Not Available Start: 10-02-2023 End: 10-02-2023 ambulatory Emmett Becker Facility:[facility] Start: 10-02-2023 End: 10-02-2023 Admission to same day surgery center DO Josh Bunting Work Phone: [facility]-Surgery Center [facility] [place] Start: 10-02-2023 End: 10-02-2023 ambulatory DO Josh Bunting Work Phone: [facility] Work Phone: Start: 09-30-2023 ambulatory Savanna Mcclain MD Facility:[facility] Start: 09-29-2023 End: 09-30-2023 ambulatory Savanna Mcclain MD Facility:[facility] Start: 09-26-2023 End: 09-26-2023 ambulatory IMTIAZ ZAIDI Not Available Start: 09-23-2023 End: 09-23-2023 ambulatory Emmett Calvogas Facility:[facility] Start: 09-23-2023 End: 09-23-2023 ambulatory DO Josh Bunting Work Phone: [facility] Work Phone: Start: 09-23-2023 End: 09-23-2023 Patient encounter procedure DO Josh Bunting Work Phone: [facility]-Pre-Surgical Testing Work Phone: Start: 09-22-2023 End: 09-23-2023 ambulatory Savanna Mcclain MD Facility:[facility] Start: 09-16-2023 End: 09-16-2023 ambulatory Karime Nguyen Other [facility] Other Start: 09-16-2023 Office outpatient ne w 45 minutes Karime Nguyen [facility] Start: 08-11-2023 End: 08-12-2023 ambulatory Savanna Mcclain MD Facility:[facility] Start: 08-11-2023 End: 08-11-2023 ambulatory DO Josh Bunting Work Phone: [facility] Work Phone: Start: 08-11-2023 End: 08-11-2023 Patient encounter procedure DO Josh Bunting Work Phone: [facility]-Lab [facility] [place] Work Phone: Start: 08-01-2023 End: 08-01-2023 ambulatory Josh Bunting Facility:[facility] Start: 08-01-2023 End: 08-01-2023 Patient encounter procedure DO Josh Bunting Work Phone: [facility]-XRay [facility] [place] Work Phone: Start: 07-29-2023 End: 07-29-2023 Emergency department patient visit Nery Casanova Facility:[facility] Start: 07-29-2023 End: 07-29-2023 Emergency department patient visit DO Josh Bunting Work Phone: [facility]-Emergency Room Work Phone: Start: 06-12-2023 End: 06-12-2023 ambulatory Mariel Mcgraw Other [employer] Other Start: 06-12-2023 Telephone encounter Mariel Mcgraw [facility] Start: 04-21-2023 End: 04-21-2023 ambulatory Josh Bunting Facility:[facility] Start: 04-21-2023 End: 04-21-2023 ambulatory DO Josh Bunting Work Phone: [facility] Work Phone: Start: 04-21-2023 End: 04-21-2023 Patient encounter procedure DO Josh Bunting Work Phone: [facility] [place] Work Phone: Start: 03-26-2023 End: 03-26-2023 ambulatory DONNY PERALTA Facility:[facility] Start: 03-26-2023 End: 03-26-2023 Patient encounter procedure Donny Peralta [employer].MACHINE TESTER Work Phone: Otolaryngology Comment on above: Laryngeal candidiasi s (Primary Dx); Glossitis; Oral candidiasis; Hoarseness of voice; History of alcohol abuse Start: 02-10-2023 End: 02-10-2023 ambulatory Errol Humphrey Facility:[facility] Start: 02-10-2023 End: 02-10-2023 ambulatory DO Josh Bunting Work Phone: [facility] Work Phone: Start: 02-10-2023 End: 02-10-2023 Patient encounter procedure DO Josh Bunting Work Phone: [facility] [place] Work Phone: Start: 12-31-2022 End: 12-31-2022 ambulatory Josh Bunting Facility:[facility] Start: 12-31-2022 End: 12-31-2022 ambulatory DO Josh Bunting Work Phone: [facility] Work Phone: Start: 12-31-2022 End: 12-31-2022 Patient encounter procedure DO Josh Bunting Work Phone: [facility] [address] Work Phone: Start: 11-06-2022 End: 11-06-2022 ambulatory Osama Malak Facility:[facility] Start: 11-06-2022 End: 11-06-2022 ambulatory DO Josh Bunting Work Phone: [facility] Work Phone: Start: 11-06-2022 End: 11-06-2022 Patient encounter procedure DO Josh Bunting Work Phone: [facility] [place] Work Phone: Start: 09-30-2022 End: 09-30-2022 ambulatory DO Josh Bunting Work Phone: [facility] Work Phone: Start: 09-30-2022 End: 09-30-2022 Patient encounter procedure DO Josh Bunting Work Phone: [facility]-Lab [facility] [place] Start: 06-19-2022 End: 06-19-2022 Patient encounter procedure DO Josh Bunting Work Phone: [facility]-XRay [facility] Start: 06-05-2022 End: 06-05-2022 ambulatory Alexis Abdi Other [employer] Other Start: 06-05-2022 Telephone encounter Alexis Abdi [facility] Start: 04-16-2022 End: 04-16-2022 ambulatory Kamal Chaban Other [employer] Other Start: 04-16-2022 Office outpatient visit 25 minutes Kamal Chaban [facility] Start: 01-08-2022 End: 01-08-2022 ambulatory Kamal Chaban Other [employer] Other Start: 01-08-2022 Office outpatient visit 25 minutes Kamal Chaban [facility] Start: 12-07-2021 End: 12-07-2021 ambulatory Kamal Chaban Other [employer] Other Start: 12-07-2021 Telephone encounter Kamal Chaban [facility] Start: 11-09-2021 ([facility] C Vac) [facility] Covid Vaccine Courtney Laminet [facility] Start: 11-09-2021 End: 11-09-2021 ambulatory Courtney Ramant Other [employer] Other Start: 09-06-2021 End: 09-06-2021 ambulatory Kamal Chaban Other [employer] Other Start: 09-06-2021 Office outpatient visit 25 minutes Kamal Chaban [facility] Start: 07-26-2021 Telephone encounter Kamal Chaban [facility] Start: 07-23-2021 Office outpatient ne w 45 minutes Kamal Chaban [facility] Procedures Date Procedure Procedure Detail Performing Clinician Start: 08-11-2023 X-ray of cervical spine DO Josh Bunting Work Phone: Start: 08-11-2023 Radiography of thora cic spine DO Josh Bunting Work Phone: Start: 08-01-2023 X-ray of lumbar spin e, six views including bending views DO Josh Bunting Work Phone: Start: 02-10-2023 X-ray of cervical spine DO Josh Bunting Work Phone: Start: 02-10-2023 X-ray of lumbar spin e, two or three views DO Josh Bunting Work Phone: Start: 12-31-2022 CT of chest without contrast DO Josh Bunting Work Phone: Start: 11-06-2022 Plain x-ray of pelvi s and lower extremity DO Josh Bunting Work Phone: Start: 06-19-2022 Radiography of thora cic spine DO Josh Bunting Work Phone: Plan of Treatment Date Care Activity Detail Author Start: 10-02-2023 Repair of left ingui nal hernia using surgical mesh OR Inguinal Hernia Repair W/Mesh Graft (Left) [facility] Start: 10-02-2023 End: 10-02-2023 [facility] Start: 06-27-2023 Influenza vaccination INFLUENZ A (Season Ended) [facility] Start: 03-26-2023 End: 05-26-2023 Comprehensive metabolic 2000 panel - Serum or Plasma [facility] Work Phone: Comment on above: Expected: 03/26/2023 , Expires: 05/26/2023 Start: 10-27-2022 DEPRESSION ASSESSMENT DEPRESSION ASS ESSMENT [facility] Start: 01-04-2022 COVID-19 VACCINE (3 - Booster for Dereck series) COVID-19 VACCINE (3 - Booster for Dereck series) [facility] Start: 2013 PROSTATE CANCER SCREENING DISCUSSION PROSTATE CANCER SCREENING DISCUSSION [facility] Start: 2008 SHINGRIX VACCINE (1 of 2) SHINGRIX VACCINE (1 of 2) [facility] Start: 2003 COLOGUARD (FIT-DNA) COLOGUARD (FIT-D NA) [facility] Start: 2003 Colonoscopy COLONOSCOPY [facility] Start: 2003 COLORECTAL CANCER SCREENING COLORECTAL CANCER SCREENING [facility] Start: [address] COLONOGRAPHY [facility] Start: 2003 DIABETES SCREEN DIABETES SCREEN [facility] Start: 2003 FECAL OCCULT BLOOD FECAL OCCULT BLOO D [facility] Start: 2003 SIGMOIDOSCOPY SIGMOIDOSCOPY [facility] Start: 1993 LIPID SCREEN LIPID SCREEN [facility] Start: 1977 Urine microalbumin profile DTAP,TDAP,TD (1 - Tdap) [facility] Start: 1976 HEPATITIS C SCREENING HEPATITIS C SC REENING [facility] Start: 1976 HIV SCREENING HIV SCREENING [facility] Patient Education Muscle Spasm ED [facility] Work Phone: Patient referral [facility] Work Phone: [facility] Immunizations Immunization Date Immunization Notes Care Provider Shannan canales 11-09-2021 COVID-19 (Moderna), Age 12+ DO Josh Bunting Work Phone: [facility] 11-09-2021 COVID-19 Emilya Courtney Espino Other [facility] 01-04-2021 COVID-19 (J&J) DO [employer] Work Phone: [facility] 01-04-2021 COVID-19 Vaccine Dereck - Documentation Purposes Only Kamsam Mcgraw Other [facility] 11-11-2019 tetanus toxoid, reduced diphtheria toxoid, and acellular pertussis vaccine, adsorbed Kamal Chaban Other [employer] Other 07-29-2017 influenza, injectable,quadrivalen t, preservative free, pediatric Kamal Shariban Other [employer] Other NEGATED: Highlighted row has not occurred!07-29-2017 influenza, injectable,quadrivalen t, preservative free, pediatric Mariel Mcgraw Other [employer] Other Payers Date Payer Category Payer Private Health Insurance 2022 Self-pay [id number] 2021 Medicare [id number] 2021 Medicare [id number] 2021 Medicare AETNA MEDICARE A ETNA MEDICARE O [id number] 2021-Present [phone] [address] [place] [address] O [id number] 2021 Medicare [id number] 1960 Unknown [id number] 2.16.840.1.011536.3.579.2 .196 1960 Unknown [id number] 2.16.840.1.135565.3.579.2 .196 1960 Unknown [id number] 2.16.840.1.623395.3.579.2 .196 1960 Unknown [id number] 2.16.840.1.618844.3.579.2 .196 1960 Unknown [id number] 2.16.840.1.107552.3.579.2 .1259 1960 Unknown [id number] 2.16.840.1.905624.3.579.2 .9 Medicare Medicare [id number] Medicare MMO MCR Adv PFFS [id number] Medicare [facility] [id number] 501 [id number] Unknown [id number] 2.16.840.1.602787.3.579.2 .531 Unknown [id number] 2.16.840.1.701519.3.579.2 .531 Unknown [id number] 2.16.840.1.254991.3.579.2 .531 Unknown [id number] 2.16.840.1.852481.3.579.2 .531 Unknown [id number] 2.16.840.1.484309.3.579.2 .531 Unknown [id number] 2.16.840.1.101798.3.579.2 .531 Unknown [id number] 2.16.840.1.694454.3.579.2 .531 Unknown [id number] 2.16.840.1.248749.3.579.2 .531 Unknown [id number] 2.16.840.1.611892.3.579.2 .531 Unknown [id number] 2.16.840.1.820828.3.579.2 .531 Worker's Compensation [employer] [facility] [id number] Social History Date Type Detail Facility Sex Assigned At [employer] Other Start: 05-22-2021 End: 05-22-2021 Tobacco smoking status WIIS Smoker (finding) [facility] Start: 1960 Sex Assigned At Male [facility] Start: 03-26-2023 End: 10-23-2023 Tobacco smoking status WIIS Ex-smoker [facility] History of tobacco use Cigarette Smoker [facility] Start: 03-26-2023 Tobacco use and exposure Smokeless tobacco non-user [facility] Start: 03-26-2023 Alcohol intake Current drinke r of alcohol (finding) [facility] Start: 03-26-2023 Alcohol Comment social Caryn [facility] Start: 1960 Sex Assigned At Not on file [facility] Medical Equipment Procedure Code Equipment Code Equipment Original Text Equi pment Identifier Dates Goals Date Patient Goal Desired Activity /State Clinical Notes 04-17-2021 to 10-14-2023 Note Date & Type Note Facility 10-14-2023 Evaluation note Encounter Date Diagnosis Assessment Notes Sep, Lumbar myelopathy (ICD-10 - G95.9) I independently reviewed the x-ray lumbar spine 6 view with patient in which shows there is osteopenia. There is prior laminectomy and fusion with posterior rods, pedicle screws and interbody fusion device extending from the L3 through the S1. The hardware appears intact unchanged from prior. A dorsal stimulator is again noted. There is no developed fractures. There is a straightening of the normal lumbar lordosis. There is minimal minimal anterolisthesis of L2 on L3. There is no significant changes in alignment with flexion or extension. There is upper lumbar disc space narrowing. Endplate spurring is present throughout. Sacroiliac joints are maintained. CT myelogram 08/26/23 reviewed face to face with patient in which shows an L1 to there is a large central disc extrusion with cranial migration extending up to the midpoint of the L1 vertebral body measuring up to 7 mm. The this contributes to moderate to severe central canal narrowing at the level with mild right and mild to moderate left neuroforaminal narrowing. Small central disc herniation at L2-3 with associated ligamentum flavum thickening and facet arthropathy with mild to moderate central canal narrowing. Mild bilateral neuroforaminal narrowing. Postsurgical changes visualized secondary to posterior fusion hardware spanning from L3-S1 levels with bilateral laminectomy status post canal decompression and intervertebral disc spacers at the L3-4, L4-5 and L5-S1 levels. No evidence for hardware complication. No evidence for central canal narrowing within these levels. Discussion of conservative therapy in which patient has not been able to tolerate physical therapy and was discharged from physical therapy. Discussion of Surgical needs in which Dr Nation will be out for 12 weeks. Will refer to Dr. Rolle for surgical consult. Sep, Lumbar radiculopathy (ICD-10 - M54.16) Sep, Spinal stenosis of lumbar region with neurogenic claudication (ICD-10 - M48.222) [employer] Other 12-05-2023 NoteProcedure Performed by: Savanna Mcclain M.D. Procedure: Placement of [employer] Site[employer] Impulse Generator Battery under fluoroscopic guidance *Battery Placement on the Left Side Indication: Pain due to lumbar post laminectomy syndrome following a successful previous implantation Anesthesia: IV conscious sedation Procedure: Risks, Benefits, Alternatives were reviewed and informed consent was obtained in the preop holding area. All questions were answered appropriately. The patient was brought to the operating room and placed in the prone position with padding under all bony prominences. A pre-procedure time out was performed specifying pt. name, nature site and side of surgery, and allergies. Anesthesia provided appropriate sedation as the skin over the thoracic and lumbar spine were prepped and draped in the usual sterile fashion. Under fluoroscopic guidance, the implanted battery was visualized. An incision was made along this area exposing the underlying fascia. Hemostasis was achieved. The implanted battery was freed and removed. A new battery was attached to the implanted leads. The battery was implanted into the subcutaneous fat. Hemostasis was obtained. The area was sutured and dressed with steristrips and sterile gauze. The patient was placed on their back and moved to the recovery area, where they were subsequently discharged in good condition. Electronically signed by Johny MATUTE, Savanna Darden 09/30/23 13:12 [facility] 09-30-2023 NoteHistory of Present Illness The patient has a longstanding history of severe chronic pain that has been recalcitrant to conservative treatments and presents today for an interventional pain management procedure. REVIEW OF SYSTEMS Review of Psychiatric, Neurological, Musculoskeletal, Cardiovascular, Endocrine, Gastrointestinal, Pulmonary, and Hematologic Systems was conducted. The review was found to be noncontributory and unchanged from previous clinic visit. PHYSICAL EXAM - Limited Patient is Constitutionally normal and displays a normal mood and affect per situation. Alert and Oriented x 4, Attentive and appropriate, Answers questions appropriately Vital Signs are Stable Heart ? Normal Rate and Rhythm consistent with the patient?s history Lungs ? No significant wheezing, Clear Bilaterally ASSESSMENT / PLAN Diagnosis ? Severe Chronic Pain / lumbar post laminectomy syndrome Risks/Benefits/Expected Outcomes of the planned procedure were discussed with the patient and the patient is in agreement that the potential benefits outweigh the risks of the procedure. The patient does appear to be in acceptable health today to undergo the procedure. It is felt that the patient will likely benefit from the procedure and that the procedure is medically necessary noting the patient?s poor response to more conservative therapies. For these reasons we will proceed as planned withthe pain management procedure. Procedure ? permanent spinal cord stimulator battery exchange Physical Exam Vitals & Measurements HR: 103 (Peripheral) RR: 18 BP: 144/90 SpO2: 95% HT: 170 cm WT: 105 kg Additional Vitals Temperature Infrared: 36.1 degC Problem List/Past Medical History Ongoing Anxiety Cervicalgia Diabetes Diverticulosis Fusion of spine, cervical region Hypertension Lumbar post laminectomy syndrome Lumbar spinal stenosis Thoracic back pain Historical No qualifying data Procedure/Surgical History lumbar surgery PARTIAL REMOVAL OF COLON shoulder surgery Spinal cord stimulator Spinal Cord Stimulator Revision (09/30/2023) Medications Inpatient fentaNYL, 50 mcg= 1 mL, IV Push, q1min, PRN Sodium Chloride 0.9% intravenous solution 500 mL, 500 mL, IV Versed, 2 mg= 2 mL, IV Push, q5min, PRN Home atorvastatin 40 mg oral tablet celecoxib 200 mg oral capsule DULoxetine 60 mg oral delayed release capsule gabapentin 600 mg oral tablet hydrOXYzine pamoate 25 mg oral capsule Jardiance 10 mg oral tablet, 10 mg= 1 tabs, Oral, qAM lisinopril-hydroCHLOROthiazide 20 mg-12.5 mg oral tablet metFORMIN 1000 mg oral tablet NovoLOG FlexPen, Subcutaneous, AC omeprazole 40 mg oral delayed release capsule Tresiba, Subcutaneous, Daily Allergies No Known Allergies Social History Substance Abuse Marijuana Tobacco Smoker, current status unknown Use:. Marijuana Lab Results Test Name Test Result Date/Time POC Gluc Random 192 mg/dL (High) 09/30/2023 12:54 EST POC Gluc Random 246 mg/dL (High) 09/30/2023 11:50 EST Microbiology - Current Encounter No qualifying data available. Electronically signed by Savanna Mcclain MD 09/30/23 13:10 [facility] 09-16-2023 Evaluation note* Encounter Date Diagnosis Assessment Notes Treatment Notes Treatment Clinical Notes Aug, Lumbar post-laminectomy syndrome (ICD-10 - M96.1) Independently reviewed the x-ray lumbar spine 6 view with patient in which shows there is osteopenia. There is prior laminectomy and fusion with posterior rods, pedicle screws and interbody fusion device extending from the L3 through the S1. The hardware appears intact unchanged from prior. A dorsal stimulator is again noted. There is no developed fractures. There is a straightening of the normal lumbar lordosis. There is minimal minimal anterolisthesis of L2 on L3. There is no significant changes in alignment with flexion or extension. There is upper lumbar disc space narrowing. Endplate spurring is present throughout. Sacroiliac joints are maintained. Patient recently had a CT myelogram in which was unable to be pushed over into PACS at this time. Pending CT mylogram to review. Will get release of information from pain management to review notes. Discussion of conservative therapy in which we will refer to physical therapy. Pharmacological management will continue with current medication as prescribed, will order lidocaine patch. Follow-up in 4 weeks. Aug, Lumbar radiculopathy (ICD-10 - M54.16) [employer] Other 08-17-2023 Evaluation note* Encounter Date Diagnosis Assessment Notes Treatment Notes Treatment Clinical Notes May, Gastroesophageal ref lux disease, unspecified whether esophagitis present (ICD-10 - K21.9) [employer] Other 05-31-2023 NoteHNO ID: [id number] Author: Donny Peralta APRN.MACHINE TESTER Service: ? Author Type: Nurse Practitioner Type: Progress Notes Filed: 03/26/2023 4:15 PM Note Text: Mr. Meier is a 62 year old male who comes in for evaluation of oral lesion. Consultation requested by Dr. Josh Melvin DO. for an opinion regarding oral lesion. My final recommendations will be communicated back to the requesting physician by way of shared Medical record or letter to requesting physician via US mail. . Several years ago he had neck surgery and his voice chagned. In the past 2 years he has had much more difficutly with his voice. He has has issues with pain in the left side of the back of his throat for the past 9 months. He states he has a white and red streaked area in the back to the tonsil area on the left. He has some metallic taste. He has had irritation of the tongue which he describes as burning which is worse when he eats. He has been using some peroxide mouth wash. He was given some magic mouth wash which may have helped a little but the problem quickly recurred. He has a long marijuana smoking history since the 1969's. He quit smoking about 6 year ago. He smoked 1.5 ppd cigarettes for about 25 years. He denies any chewing tobacco. He does drink alcohol about 1-2 drinks a month but he has a history of heavy alcohol use prior to 2004. He denies any other significant head or neck complaints at this time. Past history : No past medical history on file. Current medication: No current outpatient medications on file. No current facility-administered medications for this visit. Allergies: ALLERGIES Not on File Social history: Family history: No family history on file. There are no exam notes on file for this visit. Physical exam: General Appearance: 62 year old male is alert, oriented, not in acute distress. Hearing is grossly normal, voice is clear. There is no tenderness with percussion over the paranasal sinuses. Eyes: PEERLA, extraocular movements are full. Nose: Clean, septum is straight. There are no polyps. There is no discharge. Oropharynx: Patient has upper denture. There is significant evidence of oral Sylvia on buccal mucosa, lingual surface, soft palate, and and tonsillar beds. Tongue is extremely inflamed, fissured, and beefy red.. Gag reflex is intact. Nasopharynx: Visualization is limited. Hypopharynx: Visualization is limited. Neck: No masses palpated. Thyroid is not enlarged. Trachea is in the midline. Ears: Both ear canals are clean. Both TMs are intact and mobile. Impression: Glossitis and oral irritation secondary to significant candidal infection. Throat discomfort and hoarseness of voice exact etiology unclear. Plan of management: I will perform fiberoptic laryngoscopy and discuss further management options with the patient. Procedure: After the procedure was explained to the patient and patient agreed to have the procedure done 1% Shan-Synephrine and 4% Xylocaine was sprayed to both nasal cavities. Fiberoptic scope was inserted through the right nasal airway. Right nasal airway was normal. Nasopharynx was normal. Hypopharyngeal exam revealed significant evidence of Sylvia on the laryngeal surface as well as epiglottis and base of tongue. There is severe mucosal thickening in the posterior commissure with hyperemia. Patient is using false cords for phonation. Findings were explained to the patient. Aggressive treatment of his oral Sylvia was discussed with the patient. Patient has not had any recent liver enzyme testing and has strong history of alcohol abuse. He will have CMP drawn today to ensure he is safe to pursue oral Diflucan along with clotrimazole bud or 2 weeks. He will have close follow-up in 6 weeks time or sooner should the be further problems. Patient's will call with an update on his oral irritation in approximately 2 to 3 weeks time. Donny Peralta APRN.MACHINE TESTER CC: Josh Melvin [facility]05-31-2023 History of Present illness Narrative* Donny Peralta APRN.MACHINE TESTER - 03/26/2023 11:14 AM EDT Mr. Meier is a 62 year old male who comes in for evaluation of oral lesion. Consultation requested by Dr. Josh Melvin DO. for an opinion regarding oral lesion. My final recommendations will be communicated back to the requesting physician by way of shared Medical record or letter to requesting physician via [place] mail. . Several years ago he had neck surgery and his voice chagned. In the past 2 years he has had much more difficutly with his voice. He has has issues with pain in the left side of the back of his throatfor the past 9 months. He states he has a white and red streaked area in the back to the tonsil area on the left. He has some metallic taste. He has had irritation of the tongue which he describes as burning which is worse when he eats. He has been using some peroxide mouth wash. He was given some magic mouth wash which may have helped a little but the problem quickly recurred. He has a long marijuana smoking history since the 1970's. He quit smoking about 6 year ago. He smoked 1.5 ppd cigarettes for about 25 years. He denies any chewing tobacco. He does drink alcohol about1-2 drinks a month but he has a history of heavy alcohol use prior to 2004. He denies any other significant head or neck complaints at this time. Past history : No past medical history on file. Current medication: No current outpatient medications on file. No current facility-administered medications for this visit. Allergies: ALLERGIES Not on File Social history: Family history: No family history on file. There are no exam notes on file for this visit. Physical exam: General Appearance: 62 year old male is alert, oriented, not in acute distress. Hearing is grossly normal, voice is clear. There is no tenderness with percussion over the paranasal sinuses. Eyes: PEERLA, extraocular movements are full. Nose: Clean, septum is straight. There are no polyps. There is no discharge. Oropharynx: Patient has upper denture. There is significant evidence of oral Sylvia on buccal mucosa, lingual surface, soft palate, and and tonsillar beds. Tongue is extremely inflamed, fissured, and beefy red.. Gag reflex is intact. Nasopharynx: Visualization is limited. Hypopharynx: Visualization is limited. Neck: No masses palpated. Thyroid is not enlarged. Trachea is in the midline. Ears: Both ear canals are clean. Both TMs are intact and mobile. Impression: Glossitis and oral irritation secondary to significant candidal infection. Throat discomfort and hoarseness of voice exact etiology unclear. Plan of management: I will perform fiberoptic laryngoscopy and discuss further management options with the patient. Procedure: After the procedure was explained to the patient and patient agreed to have the procedure done 1% Shan-Synephrine and 4% Xylocaine was sprayed to both nasal cavities. Fiberoptic scope was inserted through the right nasal airway. Right nasal airway was normal. Nasopharynx was normal. Hypopharyngeal exam revealed significant evidence of Sylvia on the laryngeal surface as well as epiglottis and base of tongue. There is severe mucosal thickening in the posterior commissure with hyperemia. Patient is using false cords for phonation. Findings were explained to the patient. Aggressive treatment of his oral Sylvia was discussed with the patient. Patient has not had any recent liver enzyme testing and has strong history of alcohol abuse. He will have CMP drawn today to ensure he is safe to pursue oral Diflucan along with clotrimazole bud or 2 weeks. He will have close follow-up in 6 weeks time or sooner should the be further problems. Patient's will call withan update on his oral irritation in approximately 2 to 3 weeks time. Donny Peralta APRN.MACHINE TESTER CC: Josh Melvin DO [facility]* Encounter Date Diagnosis Assessment Notes Treatment Notes Treatment Clinical Notes Mar, Obstructive sleep ap dee (ICD-10 - G47.33) Please get a compliance report now and before next visit Mar, Gastroesophageal ref lux disease, unspecified whether esophagitis present (ICD-10 - K21.9) Mar, Lung nodule (ICD-10 - R91.1) [employer] Other 03-15-2022 Evaluation note* Encounter Date Diagnosis Assessment Notes Treatment Notes Treatment Clinical Notes Dec, Lung nodule (ICD-10 - R91.1) Dec, Gastroesophageal ref lux disease, unspecified whether esophagitis present (ICD-10 - K21.9) Dec, Obstructive sleep ap dee (ICD-10 - G47.33) Patient will need a 30 to 90-day follow-up after starting CPAP treatment, DME should let us know when this will be needed, otherwise follow-up will be after his CT in 1 year [employer] Other 01-14-2022 Evaluation note* Encounter Date Diagnosis Assessment Notes Treatment Notes Treatment Clinical Notes Oct, Encounter for immunization (ICD-10 - Z23) Patient presents for COVID-19 vaccination BOOSTER. Pre-screening form answers evaluated with patient. Patient denies current illness or allergic reaction to component of COVID-19 vaccine. Patient provided with current copy of EUA. [employer] Other 09-27-2021 Evaluation note* Encounter Date Diagnosis Assessment Notes Treatment Notes Treatment Clinical Notes Jun, Lung nodule (ICD-10 - R91.1) Jun, Chronic cough (ICD-1 0 - R05) Jun, Obstructive sleep ap dee (ICD-10 - G47.33) Jun, Gastroesophageal ref lux disease, unspecified whether esophagitis present (ICD-10 - K21.9) [employer] Other 06-24-2021 NotePatient: KOKO MEIER Age: 60 years Sex: Male : 1960 Associated Diagnoses: None Author: Kwame aYng DO Discharge Information Discharge Summary Information: Admit Date/Time: 04/18/21 08:03 Discharge Date/Time: 04/19/21 12:55 Admitting Physician: Kwame Yang DO Referring Physician for Admission: Kwame Yang DO Consulting Physicians: none Admitting Diagnoses: massive rotator cuff tear, DJD, right shoulder procedure: R reverse TSA discharge disposition: home Discharge Diagnoses: Primary osteoarthritis, right shoulder, massive cuff tear Prescription and Home Meds: acetaminophen-oxycodone (Percocet 325 mg-5 mg Tab) See Instructions, 1-2 tab(s) Oral q4hr, PRN: as needed for pain, 50 tab(s), 0 Refill(s) atorvastatin (Lipitor) 40 mg, Oral, Daily, 0 Refill(s) busPIRone 30 mg, Oral, TID, 0 Refill(s) docusate (Colace 100 mg Cap) 100 mg, 1 cap(s), Oral, BID, PRN: for constipation, 20 cap(s), 0 Refill(s) duloxetine (Cymbalta) 60 mg, Oral, BID, 0 Refill(s) gabapentin See Instructions, 900 mg Oral, 0 Refill(s) hydrochlorothiazide-lisinopril (hydrochlorothiazide-lisinopril 12.5 mg-10 mg oral tablet) 1 tab(s),Oral, Daily, 0 Refill(s) insulin degludec (Tresiba FlexTouch 200 units/mL subcutaneous solution) 75 unit(s), SubCutaneous, Daily, 0 Refill(s) insulin isophane (Novolin N) See Instructions, 5 units AM 15 units NOON 30 units PM, 0 Refill(s) meloxicam (meloxicam 15 mg Tab) 15 mg, 1 tab(s), Oral, Daily, 30 tab(s), 0 Refill(s) metformin 1,000 mg, Oral, BID, 0 Refill(s) morphine (morphine 15 mg oral tablet) 15 mg, 1 tab(s), Oral, BID, 0 Refill(s) perphenazine (perphenazine 4 mg Tab) 4 mg, 1 tab(s), Oral, BID, 0 Refill(s) [facility]Result Comment: Electronically Signed By: Kwame Yang DO\.renard\Date and Time Signed: 04/19/21 12:56 EDT 04-17-2021 [id number]:127[facility] CenterEvaluation noteNo InformationNonortheast regional medical center [place] Other Evaluation noteNonort[facility] [place] Other Evaluation noteNo assessment information available [facility] Work Phone: Evaluation note* Diagnosis Laryngeal candidiasis- Primary Other candidiasis of other specified sites Glossitis Oral candidiasis Candidiasis of mouth Hoarseness of voice Dysphonia History of alcohol abuse Nondependent alcohol abuse, in remission documented in this encounter [facility] general Narrative - Reported* Type Description Date Medical History Diabetes Medical History Arthritis Medical History Asthma Medical History Hyperlipidemia Medical History Hypertension Medical History Depression Medical History Anxiety Surgical History Procedure:small bowel resection 2005 Surgical History Procedure:Back surgery 2006 Surgical History Procedure:Carpal tunnel release 2003 Surgical History Procedure:eye exam 2013 Surgical History extraction of 14 teeth 2016 Surgical History extraction of 14 teeth 08/2017 Surgical History neck Surgical History reattached tip of right little finger 10/2019 Hospitalization History see sx history [employer] Other [employer] general Narrative - [employer] [place] Other [employer] general Narrative - Reported* Type Description Date Medical History Diabetes Medical History Arthritis Medical History Asthma Medical History Hyperlipidemia Medical History Hypertension Medical History Depression Medical History Anxiety Medical History high cholesterol Medical History obesity Medical History stimulator in low back Surgical History Procedure:small bowel resection 2005 Surgical History Procedure:Back surgery 2006 Surgical History Procedure:Carpal tunnel release 2003 Surgical History Procedure:eye exam 2013 Surgical History extraction of 14 teeth 2016 Surgical History extraction of 14 teeth 08/2017 Surgical History neck Surgical History reattached tip of right little finger 10/2019 Hospitalization History see sx history [employer] Other Hospital Discharge instructions Additional Instructions Please call Dr. Becker' office to reschedule your surgery.[facility] Work Phone: Progress note Author Emmett Becker [facility] October 02, 2023 9:46am Note Date/Time October 02, 2023 9 :46am [facility] [address] [place] [address] Progress Note Signed Patient: Koko Meier MR#: [id number] : 1960 Acct:[id number] Age/Sex: 62 / M Adm Date: 3 Loc: [place] Room: Type: [facility] Attending Dr: Emmett Becker MD Copies to: ~ Date of Service: 10/02/2023 Progress Narrative Note PROGRESS NOTE Progress Note: Patient's tox screen today is positive for cocaine. Surgery will be canceled. Patient is told to call the office this afternoon to reschedule the surgery. Documented By: Emmett Becker MD 10/02/23 0945 Signed By: <Electronically signed by MD Emmett Becker> 10/02/23 0946 [facility] Work Phone: Summary Purpose Family History No Family History Records Found Relationship Condition Age at Onset Recorded Date/T mckenna Not Specified Diabetes mellitus Unknown brother Diabetes mellitus Unknown father Malignant neoplasm of urinary bladder Unk nown Advance Directives No Advanced Directives Records Found Advance Directive Response Recorded Date/ Time Advance Directives No September 8:59am Advance Directive Response Recorded Date/ Time Advance Directives No September 7:59am Chief Complaint and Reason for Visit Chief Complaint m54.6 Chief Complaint E78.2 I10 R73.01 Z79 .899 Chief Complaint E78.2 I10 R73.01 Z79 .899 M16.11 M16.12 Chief Complaint M16.11 M16.12 r91.1 Chief Complaint r91.1 M96.1 Chief Complaint M96.1 labs Chief Complaint back pain lumbar djd radiculopathy Cervical and thoracic pain Chief Complaint back pain lumbar djd radiculopathy Cervical and thoracic pain Hernia Chief Complaint back pain lumbar djd radiculopathy Cervical and thoracic pain Hernia Hernia Chief Complaint back pain lumbar djd radiculopathy Cervical and thoracic pain Hernia Hernia inguinal hernia Reason for Referral Reason surgical consult Diagnosis 1 Lumbar myelopathy (G 95.9) Referral Organization [facility] urosurgery Referring Provider First Name Karime Referring Provider Last Name Marleni Referring Provider Specialty Nurse Pract itioner Referred Organization [facility] Referred Provider MARYANN RUBALCAVA [place] [address] [place], [place],[address] Referred Provider Specialty Neurosurgery Referral Priority Routine General Notes Juana Scanlon 03:14:14 PM >received today, holding referral until office note is locked Juana Scanlon 10/16/2023 08:38:30 AM >note not locked yet Reason evaluate and treat Diagnosis 1 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) Referral Organization [facility] urosurgery Referring Provider First Name Karime Referring Provider Last Name Marleni Referring Provider Specialty Nurse Pract itioner Referred Organization [facility] Referred Address [address],[place], [place],[address] Referred Provider Specialty Physical The rapist Referral Priority Routine Additional Source Comments (unrecognized sect ion and content) No Status Records FoundNo Status Records FoundNo Status Records FoundNo Status Records FoundNo Status Records Found INFORMATION SOURCE (unrecogn ized section and content) DATE CREATED AUTHOR 04/27/2021 [facility] DATE CREATED AUTHOR AUTHOR'S ORGANIZ ATION 04/15/2023 [facility] DATE CREATED AUTHOR AUTHOR'S ORGANIZ ATION 10/10/2023 [facility] DATE CREATED AUTHOR AUTHOR'S ORGANIZ ATION 10/11/2023 [facility] DATE CREATED AUTHOR AUTHOR'S ORGANIZ ATION 10/25/[address] [facility] REASON FOR VISIT (unrecogniz ed section and content) Reason Comments Mouth lesion on left side Specialty Diagnoses / Procedures Referred By Contact Referred To Contact Ent - Otolaryngology / ENT-OTOLARYNGOLOGY Diagnoses Mouth Lesion on Left side of jaw Procedures NEW [facility] PATIENT Bunting, Josh Ray, DO [address] [address] Donny Peralta, EYAL.MACHINE TESTER [address] [place] [address] Referral ID Status Reason Start Date Expiration Date V isits Requested Visits Authorized [id number] Authorized 03/25/2023 10/26/2023 99 99 Care Teams (unrecognized sec tion and content) Team Status: Inactive Member Role Status Dates Josh Bunting , DO Primary Care Provider, Attending Dante peter Active Team Status: Active Member Role Status Dates Josh Bunting , DO Primary Care Provider Active Team Status: Inactive Member Role Status Dates Josh Bunting , DO Primary Care Provider Active Flip Diamond Attending Provider Active Team Status: Inactive Member Role Status Dates Josh Bunting , DO Primary Care Provider Active Yunier Ariza MD Attending Provider Active Team Status: Inactive Member Role Status Dates Josh Bunting , DO Primary Care Provider Active Mariel Mcgraw MD Attending Provider Active Team Status: Inactive Member Role Status Dates Josh Bunting , DO Primary Care Provider Active Errol Humphrey MD Attending Provider Active Team Status: Inactive Member Role Status Dates Josh Bunting , DO Primary Care Provider Active Nery Casanova , [facility]- Emergency Provider Active Team Status: Inactive Member Role Status Dates Josh Bunting , DO Primary Care Provider Active Savanna Mcclain MD Attending Provider Active Team Status: Inactive Member Role Status Dates Josh Bunting , DO Primary Care Provider Active Emmett Becker MD Attending Provider Active Goals (unrecognized section and content) Goals may be documented in a n alternate section Source Comments (unrecognize d section and content) In the event this informatio n is protected by the Federal Confidentiality of Alcohol and Drug Abuse Patient Records regulations: The Federal rules restrict any use of the information to criminally investigate or prosecute any alcohol or drug abuse patient.[facility] FOR RECORDS PERTAINING TO PATIENTS WHO ARE OR HAVE BEEN ENROLLED IN A CHEMICAL DEPENDENCY/SUBSTANCEABUSE PROGRAM, SOME INFORMATION MAY BE OMITTED. This clinical summary was aggregated from multiple sources. Caution should be exercised in using it in the provision of clinical care. This summary normalizes information from multiple sources, and as a consequence, information in this document may materially change the coding, format and clinical context of patient data. In addition, data may be omitted in some cases. CLINICAL DECISIONS SHOULD BE BASED ON THE PRIMARY CLINICAL RECORDS. [facility]. provides no warranty or guarantee of the accuracy or completeness of information in this document.
--- NOTE | 2023-10-30 09:29 | P.CN_ITS ---
Consult Note: HPI Data of Consult Patient: known to practice within the last 3 years Requesting Physician: Rosemary Kwon NP Primary Care Provider: JOSH MELVIN Consult Narrative Reason for consult: f/u Narrative: Koko Hernandez a pleasant 62 year old male presents for evaluation of chronic pain. Today pain in neck and bilateral shoulders, post c5-7 fusion. Pain 6-7/10 at this time lots of pressure hurts all the time and worse with everything. Patient has an upcoming hernia surgery on friday and following with NS for lumbar back pain. cc:: CC: Rosemary Kwon NP Review of Systems 2 ROS0 Status of ROS 10 or more systems reviewed and unremark able except as noted in history and below Musculoskeletal Reports: back pain and neck pain PFSH PFSH Medical History Fusion of spine, cervical region ?M43.22 - Fusion of spine, cervical region (ICD-10) Lumbar post-laminectomy syndrome ?M96.1 - Postlaminectomy syndrome, not elsewhere classified (ICD-10) Anxiety ?F41.9 - Anxiety disorder, unspecified (ICD-10) HTN (hypertension) ?I10 - Essential (primary) hypertension (ICD-10) High cholesterol ?E78.00 - Pure hypercholesterolemia, unspecified (ICD-10) Diabetes ?E11.9 - Type 2 diabetes mellitus without complications (ICD-10) Diverticulosis ?K57.90 - Diverticulosis of intestine, part unspecified, without perforation or abscess without bleeding (ICD-10) Surgical History History of shoulder surgery ?Z98.890 - Other specified postprocedural states (ICD-10) History of colon resection ?Z90.49 - Acquired absence of other specified parts of digestive tract (ICD- 10) History of lumbar surgery ?Z98.890 - Other specified postprocedural states (ICD-10) Social History Gender Identity: male Meds Home Medications and Allergies Home Medications Medication Instructions Recorded Confirmed Type atorvastatin 40 mg tablet 40 mg PO DAILY 08/14/23 09/22/23 History buspirone 30 mg tablet 30 mg PO TID 08/14/23 09/22/23 History celecoxib 200 mg capsule 200 mg PO DAILY 08/14/23 09/22/23 History cyclobenzaprine 10 mg tablet 10 mg PO TID 08/14/23 09/22/23 History duloxetine 60 mg capsule,delayed 60 mg PO BID 08/14/23 09/22/23 History release empagliflozin 10 mg tablet 10 mg PO DAILY 08/14/23 09/22/23 History (Jardiance) gabapentin 600 mg tablet 600 mg PO BID 08/14/23 09/22/23 History insulin aspart U-100 100 unit/mL 1 sliding scale dose subcut 08/14/23 09/22/23 History (3 mL) subcutaneous pen (Novolog USEASDIRECTD FlexPen U-100 Insulin aspart) insulin degludec 200 unit/mL (3 20 unit subcut DAILY 08/14/23 09/22/23 History mL) subcutaneous pen (Tresiba FlexTouch U-200 insulin) lisinopril 20 1 tab PO DAILY 08/14/23 09/22/23 History mg-hydrochlorothiazide 12.5 mg tablet metformin 1,000 mg tablet 1,000 mg PO DAILY 08/14/23 09/22/23 History omeprazole 40 mg capsule,delayed 40 mg PO DAILY 08/14/23 09/22/23 History release gabapentin 600 mg tablet 1,200 mg (2 x 600 mg) PO TID #540 09/08/23 09/22/23 Rx tabs Allergies Allergy/AdvReac Type Severity Reaction Status Date / Time No Known Drug Allergies Allergy Verified 09/22/23 11:46 Exam Constitutional Documenting provider has reviewed patient's vital signs: yes Common normals: no apparent distress, oriented x3, healthy appearing, alert and well nourished General appearance: cooperative [facility] Common normals: normocephalic, hearing grossly normal bilaterally and moist oral mucous membranes Head and scalp: normocephalic Eye Common normals: PERRL Pupil: PERRL Neck & C-Spine General: normal visual inspection Cervical spine: cervical ROM abnormal, pain with cervical ROM, cervical spine tenderness and paracervical muscle tenderness Other: positive facet loading bilaterally sensation intact in BUE, strength 5/5 negative hoffmans Neck images: 2 1. Chest Common normals: inspection of chest normal Respiratory Common normals: normal respiratory effort, no retractions and no use of accessory muscles Neuro Common normals: oriented x3, CN's II-XII intact bilaterally, moves all extremities, no focal motor deficits, no sensory deficits noted and deep tendon reflexes 2+ bilaterally Sensorium/orientation: alert Motor exam: strength 5/5 throughout and no movement abnormalities noted Psych Common normals: mental status grossly normal, thought process normal, cooperative, affect normal, speech normal and activity/motor behavior normal Speech: normal speech Thought process: normal thought process Assessment and Plan Assessment and Plan (1) Cervical spondylosis: Assessment and Plan: The patient has had over 3 months of moderate to severe neck pain with functional impairment and inadequate response to conservative care including NSAIDS (unless there are contraindication such as concurrent blood thinners), multiple oral or topical pain medications, and home exercise program/physical therapy.? Patient has completed >6 weeks of guided home exercise program and/or formal physical therapy program without relief of their symptoms.? I have reviewed the imaging of the cervical spine and no red flags were identified.? The imaging reveals radiographic findings consistent with cervical spondylosis We discussed the risks and benefits of the procedure with the patient, and we are NOT planning on using sedation as outlined in the guidelines from Medicare unless there is a documented reason that sedation would be strongly recommended.?? ?The procedure will be completed with fluoroscopic guidance.? (2) Cervical post-laminectomy syndrome: (3) Cervical stenosis of spinal canal: (4) Cervicalgia: Plan bilateral C3-4 C4-5 facet medial branch block x2 working towards thermal RFA for chronic neck pain, post surgical, unresponsive to medication therapy and PT/HEP. Based on phyiscal exam and CT findings as reviewed today continue current medications f/u with neurosurgery as planned for lumbar spine f/u 1-2 weeks after injection
== END 2023-10-30 09:07 | disposition home or self-care (01) ==
LOC: PM 09:06
PROVIDERS: PCP Family Medicine; Visit Provider Nurse Practitioner
DX: M47.812 Spondylosis without myelopathy or radiculopathy, cervical region (principal); M96.1 Postlaminectomy syndrome, not elsewhere classified; M48.02 Spinal stenosis, cervical region; M54.2 Cervicalgia
CPT/HCPCS: G0463

== ENCOUNTER 2023-11-17 06:51 | Day surgery (SDC) | payer MEDICARE, SELFPAY ==
--- OUTSIDE RECORDS SUMMARY | 2023-11-17 06:54 | XMS_ITS | CCD ---
Author Name Unknown Address [facility] [address] [place] [address] Organization [facility] Care Team Providers Care Management Developer Name Role Phone Mariel Mcgraw Unavailable Courtney Espino Unavailable Bunting, DO Josh Primary Care Provider [phone] Flip Diamond Attending Provider Alexis Abdi Unavailable Bunting, DO Josh Primary Care Provider Bunting, DO Josh Attending Provider MD Yunier Ariza Attending Provider Bunting, DO Josh Primary Care Provider [phone] MD Mariel Mcgraw Attending Provider [phone] Bunting, DO Josh Primary Care Provider MD Mariel Mcgraw Attending Provider MD Errol Humphrey Attending Provider Unavailable Primary Care Provider Unavailabl e DONNY PERALTA Attending Unavailable BUNTING, JOSH RAY Referring Unavailable DONNY PERALTA Referring Unavailable Bunting, DO Josh Primary Care Provider Bunting, DO Josh Attending Provider [phone] Bunting, DO Josh Primary Care Provider Edilberto, ROAD CUTTER-BC Nery Hankins Emergency Provider [phone] Bunting, DO Josh Attending Provider [phone] Giedraitis, MD Andrius Attending Provider Bunting, DO Josh Primary Care Provider [phone] Bullimore, ROAD CUTTER-BC Nery E Emergency Provider Bunting, DO Josh Attending Provider [phone] MD Savanna Mcclain Attending Provider MD Yogesh Becker Attending Provider [phone] Karime Nguyen Unavailable Bunting, DO Josh Primary Care Provider [phone] Giedraitis , Andrius Vytautas Attending Unavailable Giedraitis , Andrius Vytautas Attending Unavailable Giedraitis , Andrius Vytautas Attending Unavailable Giedraitis , Andrius Vytautas Attending Unavailable BECKER V, YOGESH Attending Unavailable BUNTING, JOSH R Referring Unavailable IMTIAZ ZAIDI Attending Unavailable KARIME NGUYEN Referring Unavailable FEROZ PATEL Attending Unavailable BECKER V, YOGESH Attending Unavailable Unavailable Primary Care Provider Unavailabl e Giedraitis, Andrius Admitting Unavailable Giedraitis, Andrius Attending Unavailable Bunting, Josh Primary Care Unavailable Becker, Yogesh Admitting Unavailable Becker, Yogesh Attending Unavailable Bunting, Josh Primary Care Unavailable Bunting, Josh Primary Care Unavailable Becker, Yogesh Admitting Unavailable Becker, Yogesh Attending Unavailable Becker, Yogesh Admitting Unavailable Becker, Yogesh Attending Unavailable Bunting, Josh Primary Care Unavailable Becker, Yogesh Admitting Unavailable Bunting, Josh Primary Care Unavailable Becker, Yogesh Attending Unavailable Bullimore, Nery E Admitting Unavailable Bullimore, Nery E Attending Unavailable Bunting, Josh Primary Care Unavailable Bunting, Josh Primary Care Unavailable Chaban, Kamal Admitting Unavailable Chaban, Kamal Attending Unavailable Errol Humphrey Admitting Unavailable Errol Humphrey Attending Unavailable Bunting, Josh Primary Care Unavailable Bunting, Josh Attending Unavailable Bunting, Josh Admitting Unavailable Bunting, Josh Primary Care Unavailable Bunting, Josh Attending Unavailable Bunting, Josh Admitting Unavailable Bunting, Josh Primary Care Unavailable MARYANN RUBALCAVA Attending Unavailable MARYANN RUBALCAVA Referring Unavailable Medications Current Medications Medication Drug Class(es) Dates Sig (Normalized) Sig (Original) acetaminophen 325 mg / HYDROcodone bitartrate 5 mg oral tablet (1 source) Opioid Agonist Start: 11-03-2023 take 1 tablet by mouth every six hours Hydrocodone-Acetam inophen Active 1 TAB PO Q6H 28 November 03, 2023 atorvastatin 40 mg oral tablet (20 sources) HMG-CoA Reductase Inhibitor Start: 04-20-2019 End: 02-26-2021 take 1 tablet by mouth once daily in the morning Atorvastatin (Lipitor) 40 mg Tablet Active 40 MG PO Every morning April 19, 2019 11:00pm busPIRone hydrochloride 30 mg oral tablet (19 sources) Start: 09-23-2023 take 30 mg by mouth three times daily Buspirone Active 30 MG PO Three times daily September 23, 2023 12:00am Start: 03-13-2023 busPIRone (Bus par) 30 mg tablet every 12 hours. 0 03/13/2023 Active Start: 03-13-2023 take 1 tablet by twyla [...] capsule (20 sources) Nonsteroidal Anti-inflammatory Drug Start: 019 take 1 capsule by mouth twice daily celecoxib (CeleBREX) 200 mg capsule take 1 capsule by mouth twice a day Oral for 28 Days 0 04/20/2019 Active Comment on above: take 1 capsule by mo uth twice a day Oral for 28 Days clotrimazole 10 mg oral lozenge (1 source) Azole Antifungal Start: End: 023 clotrimazole (MYCELEX) 10 mg bud Use 1 Bud as instructed four times daily for 14 days. 56 tablet 0 03/26/2023 04/09/2023 Active Comment on above: Use 1 Bud as inst ructed four times daily for 14 days. cyclobenzaprine hydrochloride 10 mg oral tablet (8 sources) Muscle Relaxant Start: 023 take 10 mg by mouth three times daily Cyclobenzaprine Active 10 MG PO Three times daily September 23, 2023 12:00am take 1 tablet by [facility] every twenty-four hours Cyclobenzaprine HCl 10 MG 1 tablet at bedtime as needed Orally Once a day Active Comment on above: Take 10 mg by mouth three times daily. diazePAM 5 mg oral tablet (6 sources) Benzodiazepine Start: 3 End: 3 take 1 tablet by mouth three times daily as needed for muscle spasms diazePAM (Valium) 5 mg tablet TAKE 1 TABLET BY MOUTH 3 TIMES A DAY NEEDED FOR MUSCLE SPASM FOR 3 DAYS 0 07/29/2023 Active docusate sodium 100 mg oral capsule (1 source) Start: 3 docusate sodium (Colace) 100 mg capsule 1 capsule (100 mg). 0 02/10/2023 Active DULoxetine 60 mg delayed release oral capsule (20 sources) Serotonin and Norepinephrine Reuptake Inhibitor Start: 9 take 1 capsule by mouth every twelve hours DULoxetine (Cymbalta) [address] capsule 1 capsule (60 mg) every 12 hours. 0 04/20/2019 Active Start: 04-20-2019 take 1 capsule by [facility] twice daily Duloxetine (Cymbalta) 60 mg Capsule,Delayed Release(Dr/Ec) Active 60 MG PO Twice daily April 19, 2019 11:00pm Start: 04-20-2019 Duloxetine (Cy mbalta) 60 mg Capsule,Delayed Release(Dr/Ec) Active 30 MG PO Twice daily April 20, 2019 12:00am take 1 capsule by [facility] every twenty-four hours DULoxetine HCl 60 MG 1 capsule Orally Once a day Active Comment on above: 1 capsule q 12 HR. empagliflozin 10 mg oral tablet (6 sources) Sodium-Glucose Cotransporter 2 Inhibitor Start: 07-01-20 23 take 1 tablet by mouth once daily in the morning Empagliflozin (Jardiance) 10 mg Tablet Active 10 MG PO Every morning September 23, 2023 12:00am empagliflozin (J ARDIANCE) 10 mg tablet Take 10 mg by mouth. 0 Active Comment on above: Take 10 mg by mouth. FreeStyle René reader (FreeStyle René 2 Alden) misc (1 source) Start: 07-25-2023 End: 07-24-2024 FreeStyle René reader (FreeStyle René 2 Alden) misc 1 each by Does not apply route every 14 (fourteen) days. 0 07/25/2023 07/24/2024 Active gabapentin 600 mg oral tablet (20 sources) Anti-epileptic Agent Start: 09-23-2023 take 1200 mg by mouth three times daily Gabapentin Active 1200 MG PO Three times daily September 23, 2023 12:00am Start: 04-20-2019 take 2 capsules by m outh three times daily gabapentin (Neurontin) 600 mg tablet Take 2 capsules by mouth 3 times a day. 0 04/20/2019 Active Start: 04-20-2019 take 600 mg by mouth three times daily Gabapentin Active 600 MG PO Three times daily September 23, 2023 12:00am Start: 04-20-2019 End: 09-23-2023 take 3 capsules by mouth three times daily Gabapentin Discontinued 3 CAP PO Three times daily April 19, 2019 11:00pm September 23, 2023 11:37am Comment on above: Take 1 capsule by mo uth. hydroCHLOROthiazide 12.5 mg / lisinopril 20 mg oral tablet (17 sources) Thiazide Diuretic, Angiotensin Converting Enzyme Inhibitor Start: 09-23-20 take 1 tablet by mouth once daily in the morning Lisinopril-[place] chlorothiazide Active 1 TAB PO Every morning September 23, 2023 12:00am Start: 04-03-2021 lisinopriL-hyd rochlorothiazide 10-12.5 mg tablet 1 (one) time each day at [...] time. hydrOXYzine pamoate 25 mg oral capsule (6 sources) Antihistamine Start: take 25 mg by mouth every six hours Hydroxyzine Pamoate Active 25 MG PO Q6H September 23, 2023 12:00am Start: 01-30-2023 hydrOXYzine pa moate (Vistaril) 25 mg capsule 1 (one) time each day at the same time. 0 01/30/2023 Active Start: 01-30-2023 take 1 capsule by mo uth every six hours as needed hydrOXYzine pamoate (VISTARIL) 25 mg capsule TAKE 1 TO 2 CAPSULES BY MOUTH EVERY 6 HOURS NEEDED FOR ANXIETY 0 01/30/2023 Active Comment on above: TAKE 1 TO 2 CAPSULES BY MOUTH EVERY 6 HOURS NEEDED FOR ANXIETY Insulin Aspart U-100 (Novolog Flexpen U-100 Insulin) 100 unit/mL (3 mL) insulin pen (4 sources) Start: 09-23-2023 inject 1 dose by [...] September 23, 2023 12:00am 3 ml insulin aspart, human 100 unt/ml pen injector (1 source) Insulin Analog Start: 10-09-2023 insulin aspart (NovoLOG Flexpen U-100 Insulin) 100 unit/mL (3 mL) pen 10 units snacks, 20 units supper plus correction 1:30 > 150 mg/dl (max daily 50 units) 0 10/09/2023 Active 3 ml insulin degludec 200 unt/ml pen injector (19 sources) Insulin Analog Start: 10-09-2023 End: 10-08-2024 insulin degludec (Tresiba FlexTouch) 200 unit/mL (3 mL) injection Inject 70 Units under the skin. 0 10/09/2023 10/08/2024 Active Start: 02-26-2021 Insulin Deglud ec (Tresiba Flextouch U-100) 100 unit/mL (3 mL) Insulin Pen Active 75 UNIT SUBCUT Daily February 26, 2021 12:00am PER PT DOSGAE REPORT Start: 01-17-2020 inject 80 [IU] by sutton bcutaneous injection once daily Tresiba FlexTouch 200 UNIT/ML 80 units Subcutaneous daily Dec, Active Insulin Degludec (Tresiba Flextouch U-100) 100 unit/mL (3 mL) Insulin Pen (4 sources) Start: 02-26-2021 Insulin Deglud ec (Tresiba [...] daily 70) Subcutaneous Dec, Active Start: 01-24-2020 insulin lispro (HumaLOG) 100 unit/mL injection (1 source) Start: 01-24-2020 insulin lispro (HumaLOG) 100 unit/mL injection Inject under the skin. 0 01/24/2020 Active isopropyl alcohol 0.7 ml/ml medicated pad (1 source) Start: 08-14-2023 alcohol swabs pads, medicated metFORMIN hydrochloride 1000 mg oral tablet (20 sources) Biguanide Start: 04-20-2019 take 1 tablet by mouth twice daily at mealtime metFORMIN (Glucophage) 1,000 mg tablet Take 1 tablet (1,000 mg) by mouth 2 times a day with meals. 0 04/20/2019 Active Comment on above: Take 1,000 mg by twyla th. morphine sulfate 15 mg oral tablet (9 sources) Opioid Agonist take 1 tablet by mouth every four hours Morphine Sulfate 15 MG 1 tablet as needed Orally every 4 hrs Active naproxen sodium 220 mg oral capsule (2 sources) Nonsteroidal Anti-inflammatory Drug Start: 10-23-2023 take 2 capsules by mouth every twelve hours Naproxen Sodium (Aleve) 220 mg Capsule Active 440 MG PO Q12H October 23, 2023 12:00am omeprazole 40 mg delayed release oral capsule (16 sources) Proton Pump Inhibitor Start: 09-23-2023 take 40 mg by mouth once daily in the morning Omeprazole Active 40 MG PO Every morning September 23, 2023 12:00am tamsulosin hydrochloride 0.4 mg oral capsule (1 source) alpha-Adrenergic Evi Start: 11-03-2023 take 1 capsule by mouth once daily Tamsulosin (Flomax) 0.4 mg Capsule Active 0.4 MG PO Daily November 03, 2023 12:00am Completed/Discontinued Medications Medication Drug Class(es) Dates Sig (Normalized) Sig (Original) acetaminophen 325 mg / oxyCODONE hydrochloride 5 mg oral tablet (5 sources) Opioid Agonist Start: 07-29-2023 End: 09-23-2023 take 1 tablet by mouth every six hours Oxycodone-Acetamin ophen Discontinued 1 TAB PO Q6H 12 July 29, 2023 September 23, 2023 11:37am ARIPiprazole 15 mg oral tablet (11 sources) Atypical Antipsychotic Start: 04-20-2019 End: 02-26-2021 take 1 tablet by mouth once daily Aripiprazole (Abilify) 15 mg Tablet Discontinued 15 MG PO Daily April 19, 2019 11:00pm February 26, 2021 4:36pm buprenorphine 0.15 mg buccal film (11 sources) Partial Opioid Agonist Start: 04-20-2019 End: 02-26-2021 Buprenorphine Hcl (Belbuca) 150 mcg Film Discontinued 150 MCG BUCCAL Q12H April 19, 2019 11:00pm February 26, 2021 4:37pm ibuprofen 400 mg oral tablet (11 sources) Nonsteroidal Anti-inflammatory Drug Start: 04-20-2019 End: 09-23-2023 take 400 mg by mouth every six hours Ibuprofen Discontinued 400 MG PO Q6H April 19, 2019 11:00pm September 23, 2023 11:37am insulin isophane, human 100 unt/ml injectable suspension (11 sources) Start: 04-20-2019 End: 02-26-2021 Insulin Nph Isoph U-100 Human (Novolin N Nph U-100 Insulin) 100 unit/mL Suspension Discontinued 0 .ROUTE .COMPLEX April 19, 2019 11:00pm February 26, 2021 4:38pm 65 units in pm and 40 units in am insulin lispro (HUMALOG KWIKPEN) 100 unit/mL (1 source) Start: 01-24-2020 insulin lispro (HUMALOG KWIKPEN) 100 unit/mL Inject subcutaneously. 0 01/24/2020 Active Comment on above: Inject subcutaneousl y. insulin, regular, human 100 unt/ml injectable solution (11 sources) Insulin Start: 04-20-2019 End: 09-23-2023 Insulin Regular Human (Novolin R Regular U-100 Insuln) 100 unit/mL Solution Discontinued 0 .ROUTE .COMPLEX April 19, 2019 11:00pm September 23, 2023 11:42am 5 units in am 15 UNITS AT NOON 30 units in pm PER PT DOSAGE REPORT perphenazine 4 mg oral tablet (11 sources) Phenothiazine Start: 02-26-2021 End: 05-22-2021 take 4 mg by mouth twice daily [...] [Alcohol abuse, in remission] Onset: 03-26-2023 Chronic Anxiety disorders (1 source) Anxiety; Translations: [Anxiety disorder, unspecified] Onset: 02-28-2023 11-10-2023 Chronic Cardiac dysrhythmias (11 sources) Palpitations; Translations: [Palpitations] 02-26-2021 Episodic Diabetes mellitus with complications (12 sources) Hyperglycemia due to type 2 diabetes mellitus; Translations: [Type 2 diabetes mellitus with hyperglycemia] Onset: 02-28-2023 11-10-2023 Chronic Diabetes mellitus without complication (12 sources) Type 2 diabetes mellitus; Translations: [Type 2 diabetes mellitus without complications] Chronic Diseases of mouth; excluding dental (1 source) Glossitis; Translations: [Glossitis] Episodic Disorders of lipid metabolism (2 sources) Hyperlipidemia; Translations: [Hyperlipidemia, unspecified] Onset: 02-28-2023 11-10-2023 Chronic Esophageal disorders (18 sources) Gastroesophageal reflux disease; Translations: [Gastro-esophageal reflux disease without esophagitis] Onset: 07-23-2021 Resolved: 04-16-2022 Chronic Essential hypertension (1 source) Hypertensive disorder; Translations: [Essential (primary) hypertension] Onset: 02-28-2023 11-10-2023 Chronic Mood disorders (1 source) Major depression, single episode; Translations: [Major depressive disorder, single episode, unspecified] Onset: 02-28-2023 11-10-2023 Chronic Mycoses (3 sources) Infective laryngitis; Translations: [Other sites of candidiasis] Onset: 03-26-2023 Episodic Osteoarthritis (8 sources) Arthropathy of left shoulder; Translations: [Primary osteoarthritis, left shoulder] Onset: 02-28-2023 11-10-2023 Chronic Other acquired deformities (1 source) Acquired deformity of spine; Translations: [Other specified deforming dorsopathies, site unspecified] 11-11-2023 Chronic Other acquired deformities (2 sources) Other specified deforming dorsopathies, site unspecified; Translations: [Other specified deforming dorsopathies, site unspecified] Onset: 11-11-2023 Chronic Other connective tissue disease (1 source) History of reverse prosthetic total arthroplasty of right shoulder; Translations: [Presence of right artificial shoulder joint] Onset: 02-28-2023 11-10-2023 Chronic Other connective tissue disease (1 source) History of lumbar fusion; Translations: [Arthrodesis status] Onset: 09-26-2023 11-10-2023 Episodic Other lower respiratory disease (11 sources) Nodule of lung; Translations: [Solitary pulmonary nodule] Episodic Other lower respiratory disease (11 sources) Solitary nodule of lung; Translations: [Solitary pulmonary nodule] 05-22-2021 Episodic Other nervous system disorders (6 sources) Chronic pain; Translations: [Other chronic pain] Chronic Other nervous system disorders (1 source) Spinal cord disease; Translations: [Disease of spinal cord, unspecified] Chronic Other nervous system disorders (3 sources) Disease of spinal cord, unspecified; Translations: [Disease of spinal cord, unspecified (CMS/HCC)] Onset: 11-11-2023 Chronic Other nervous system disorders (1 source) Cervical myelopathy; Translations: [Disease of spinal cord, unspecified] 11-11-2023 Chronic Other nervous system disorders (1 source) Acute postoperative pain; Translations: [Other acute postprocedural pain] 11-03-2023 Episodic Other nutritional; endocrine; and metabolic disorders (5 [...] [Other intervertebral disc displacement, lumbar region] Onset: 12-22-2018 Chronic Spondylosis; intervertebral disc disorders; other back problems (20 sources) Lumbago co-occurrent with right-side sciatica; Translations: [Lumbago with sciatica, right side] Onset: 02-28-2023 08-06-2023 Episodic Unclassified (1 source) Encounter for preprocedural laboratory examination; Translations: [Encounter for preprocedural laboratory examination] Onset: 09-23-2023 Unclassified (1 source) Other intervertebral disc degeneration, lumbar region; Translations: [Other intervertebral disc degeneration, lumbar region] Onset: 08-01-2023 Past or Other Problems Problem Classification Problem Date Documented Da te Episodic/Chronic Abdominal pain (1 source) Flank pain; Translations: [Unspecified abdominal pain] Onset: 02-28-2023 11-10-2023 Episodic Immunizations and screening for infectious disease (1 source) Encounter for immunization Onset: 11-09-2021 Resolved: 11-09-2021 Episodic Other aftercare (6 sources) Long-term current use of insulin; Translations: [assisted (current) use of insulin] Episodic Other connective tissue disease (1 source) Full thickness rotator cuff tear; Translations: [Complete rotator cuff tear or rupture of unspecified shoulder, not specified as traumatic] Onset: 02-28-2023 11-10-2023 Episodic Other connective tissue disease (1 source) Tear of right rotator cuff; Translations: [Unspecified rotator cuff tear or rupture of right shoulder, not specified as traumatic] Onset: 02-28-2023 11-10-2023 Episodic Other gastrointestinal disorders (1 source) Constipation; Translations: [Constipation, unspecified] Onset: 02-28-2023 11-10-2023 Episodic Other lower respiratory disease (5 sources) Solitary pulmonary nodule; Translations: [Lung nodule R91.1] Onset: 07-23-2021 Resolved: 04-16-2022 Episodic Other lower respiratory disease (1 source) Cough; Translations: [Chronic cough R05] Onset: 07-23-2021 Resolved: 07-23-2021 Episodic Other lower respiratory disease (1 source) Dyspnea, unspecified Onset: 09-06-2021 Resolved: 09-06-2021 Episodic Results Test Name Value Interpretation Reference Range Facility Amphetamine Screen Ql (U)Ord ered By: Kenroy Domínguez on 11-03-2023 Amphetamines Ql (U) Negative Negative [facility] Barbiturates [Presence] in U rine by Screen methodOrdered By: Kenroy Domínguez on 11-03-2023 Barbiturates Screen Ql (U) Negative Negative [facility] Benzodiazepines Screen Ql (U )Ordered By: Kenroy Domínguez on 11-03-2023 Benzodiazepines Ql (U) Negative Negative [facility] Benzoylecgonine [Presence] i n Urine by Screen methodOrdered By: Kenroy Domínguez on 11-03-2023 Benzoylecgonine Screen Ql (U) Negative Negative [facility] Cannabinoids [Presence] in U rine by Screen methodOrdered By: Kenroy Domínguez on 11-03-2023 Cannabinoids Screen Ql (U) Positive Negative [facility] Comment on above: These are unconfirme d results and should not be used for legal purposes. Drug Cut-Off Concentration: AMPH 1000 ng/mL ZE 200 ng/mL DUANE 200 ng/mL COCM 300 ng/mL OP 300 ng/mL PCP 25 ng/mL THC 20 ng/mL Drug Screen,Urineon 11-03-19 24 Amphetamine Screen,Urine Negative Normal Negative [facility] Comment on above: Performed By: #### U RDS ####[address] Barbiturate Screen,Urine Negative Normal Negative [facility] Comment on above: Performed By: #### U RDS ####[place] [id number] [facility] Benzodiazepines Screen,Urine Negative Normal Negative [facility] Comment on above: Performed By: #### U RDS ####[address] Cannabinoid Screen,Urine Positive High Negative [facility] Comment on above: Result Comment: Thes e are unconfirmed results and should not be used for legal purposes. Drug Cut-Off Concentration: AMPH 1000 ng/mL ZE 200 ng/mL DUANE 200 ng/mL COCM 300 ng/mL OP 300 ng/mL PCP 25 ng/mL THC 20 ng/mL PERFORMED BY: [facility] [address] [place] [address] PATHOLOGIST PATTERN DUPLICATOR CLEVE CANDELARIA M.D. Performed By: #### U RDS ####[place] [id number] [facility] Cocaine Screen,Urine Negative Normal Negative [facility] Comment on above: Performed By: #### U RDS ####[place] [id number] [facility] Opiate Screen,Urine Negative Normal Negative [facility] Comment on above: Performed By: #### U RDS ####[place] [id number] [facility] Phencyclidine Screen,Urine Negative Normal Negative [facility] Comment on above: Performed By: #### U RDS ####[facility] [id number] [place] [address] [place] Glucose Glucometer (BldC) [M ass/Vol]Ordered By: Yogesh Becker on 11-03-2023 Glucose [Mass/Vol] 185 mg/dL [facility] Comment on above: Random Glucose Refer ence Range is dependent on time and content of last meal. Glucose of more than 200 mg/dL in a nonstressed, ambulatory subject supports the diagnosis of Diabetes Mellitus. Glucose Poct Glucometerson 0 11-03-2023 Glucose [Mass/Vol] 185 mg/dL Normal [facility] Comment on above: Result Comment: Brady om Glucose Reference Range is dependent on time and content of last meal. Glucose of more than 200 mg/dL in a nonstressed, ambulatory subject supports the diagnosis of Diabetes Mellitus. PERFORMED BY: [facility] [address] [place] [address] PATHOLOGIST PATTERN DUPLICATOR CLEVE CANDELARIA M.D. Performed By: #### G LULS ####Point of Care testing, Glucose [Mass/Vol] 180 mg/dL Normal [facility] Comment on above: Result Comment: [place] Glucose Reference Range is dependent on time and content of last meal. Glucose of more than 200 mg/dL in a nonstressed, ambulatory subject supports the diagnosis of Diabetes Mellitus. PERFORMED BY: [facility] [address] [place] [address] PATHOLOGIST PATTERN DUPLICATOR CLEVE CANDELARIA M.D. Performed By: #### G LULS #### Point of Care testing , Opiates [Presence] in Urine by Screen methodOrdered By: Kenroy Domínguez on 11-03-2023 Opiates Screen Ql (U) Negative Negative [facility] Phencyclidine Screen Ql (U)O rdered By: Kenroy Domínguez on 11-03-2023 Phencyclidine Ql (U) Negative Negative [facility] Basic Metabolic Panelon 12-2 Anion gap [Moles/Vol] 9.7 mmol/L Normal 6.0-15.0 [facility] Comment on above: Performed By: #### B MP, CBC #### [facility] [address] [place] [address] [place] Calcium [Mass/Vol] 8.8 mg/dL Normal 8.6-10.3 [facility] Comment on above: Result Comment: PERF ORMED BY: [place] [address] PATHOLOGIST PATTERN DUPLICATOR CLEVE CANDELARIA M.D. Performed By: #### B MP, CBC #### [facility] [address] [place] [address] [place] Chloride [Moles/Vol] 100 mmol/L Normal 98-107 [facility] Comment on above: Performed By: #### B MP, CBC #### [place] [address] [place] CO2 [Moles/Vol] 33.8 mmol/L High 21.0-31.0 [facility] Comment on above: Performed By: #### B MP, CBC #### [place] [address] [place] Creatinine [Mass/Vol] 0.71 mg/dL Normal 0.70-1.30 [facility] Comment on above: Performed By: #### B MP, CBC #### [place] [address] [place] GFR/1.73 sq M.predicted MDRD (S/P/Bld) [Vol rate/Area] mL/min/{1.73_m2} Normal [facility] Comment on above: Performed By: #### B MP, CBC #### [place] [address] [place] Glucose [Mass/Vol] 105 mg/dL High 70-100 [facility] Comment on above: Result Comment: Brady Glucose Reference Range is dependent on time and content of last meal. Glucose of more than 200 mg/dL in a nonstressed, ambulatory subject supports the diagnosis of Diabetes Mellitus. ADA recommended reference range Performed By: #### B MP, CBC #### [place] [address] [place] Potassium [Moles/Vol] 4.5 mmol/L Normal 3.5-5.1 [facility] Comment on above: Performed By: #### B MP, CBC #### [facility] [address] Sodium [Moles/Vol] 139 mmol/L Normal 136-145 [facility] Comment on above: Performed By: #### B MP, CBC #### [facility] [address] Urea nitrogen [Mass/Vol] 18 mg/dL Normal 7-25 [facility] Comment on above: Performed By: #### B MP, CBC #### [facility] [address] Basophils Auto (Bld) [#/Vol] Ordered By: Yogesh Becker on 10-23-2023 Basophils (Bld) [#/Vol] 0.0 10*3/uL 0.0-0.2 [facility] Basophils/100 WBC Auto (Bld) Ordered By: Yogesh Becker on 10-23-2023 Basophils/100 WBC (Bld) 0.8 % . [facility] Calcium [Mass/volume] in Ser um or PlasmaOrdered By: Yogesh Becker on 10-23-2023 Calcium [Mass/Vol] 8.8 mg/dL 8.6-10.3 [facility] Carbon dioxide, total [Moles /volume] in Serum or PlasmaOrdered By: Yogesh Becker on 10-23-2023 CO2 [Moles/Vol] 33.8 mmol/L 21.0-31.0 [facility] Chloride [Moles/volume] in S raffi or PlasmaOrdered By: Yogesh Becker on 10-23-2023 Chloride [Moles/Vol] 100 mmol/L 98-107 [facility] Complete Blood Count Auto Di ffon 10-23-2023 Basophils (Bld) [#/Vol] 0.0 10*3/uL Normal 0.0-0.2 [facility] Comment on above: Result Comment: PERF ORMED BY: [facility] [address] [place] [address] PATHOLOGIST PATTERN DUPLICATOR CLEVE CANDELARIA M.D. Performed By: #### B MP, CBC #### [facility] [address] [place] [address] [place] Basophils/100 WBC (Bld) 0.8 % Normal . [facility] Comment on above: Performed By: #### B MP, CBC #### [facility] [address] [place] [address] [place] Eosinophils (Bld) [#/Vol] 0.2 10*3/uL Normal 0.0-0.45 [facility] Comment on above: Performed By: #### B MP, CBC #### [facility] [address] Eosinophils/100 WBC (Bld) 3.6 % Normal . [facility] Comment on above: Performed By: #### B MP, CBC #### [facility] [address] Erythrocyte distribution width (RBC) [Ratio] 14.3 % Normal 12.0-14.8 [facility] Comment on above: Performed By: #### B MP, CBC #### [facility] [address] Hematocrit (Bld) [Volume fraction] 48.1 % Normal 38.8-50.0 [facility] Comment on above: Performed By: #### B MP, CBC #### [facility] [address] [place] [address] [place] Hemoglobin (Bld) [Mass/Vol] 16.2 g/dL Normal 13.0-17.0 [facility] Comment on above: Performed By: #### B MP, CBC #### [facility] [address] [place] [address] [place] Lymphocytes (Bld) [#/Vol] 1.3 10*3/uL Normal 1.00-4.8 [facility] Comment on above: Performed By: #### B MP, CBC #### [facility] [address] [place] [address] [place] Lymphocytes/100 WBC (Bld) 26.8 % Normal . [facility] Comment on above: Performed By: #### B MP, CBC #### [facility] [address] MCH (RBC) [Entitic mass] 32.4 pg Normal 27.5-35.2 [facility] Comment on above: Performed By: #### B MP, CBC #### [facility] [address] MCV (RBC) [Entitic vol] 96.0 fL Normal 83.5-101 [facility] Comment on above: Performed By: #### B MP, CBC #### [facility] [address] Mean Corpuscular HGB Conc 33.8 g/dL Normal 32.5-35.6 [facility] Comment on above: Performed By: #### B MP, CBC #### [facility] [address] [place] [address] [place] Monocytes (Bld) [#/Vol] 0.5 10*3/uL Normal 0.0-0.8 [facility] Comment on above: Performed By: #### B MP, CBC #### [facility] [address] Monocytes/100 WBC (Bld) 9.4 % Normal . [facility] Comment on above: Performed By: #### B MP, CBC #### [facility] [address] Neutrophils (Bld) [#/Vol] 2.9 10*3/uL Normal 1.8-7.7 [facility] Comment on above: Performed By: #### B MP, CBC #### [facility] [address] [place] [address] [place] Neutrophils/100 WBC (Bld) 59.4 % Normal . [facility] Comment on above: Performed By: #### B MP, CBC #### [facility] [address] NRBC% 0.1 /100{WBC} Normal 0-0.5 [facility] Comment on above: Performed By: #### B MP, CBC #### [facility] [address] Platelet mean volume (Bld) [Entitic vol] 8.4 fL Normal 6.6-10.1 [facility] Comment on above: Performed By: #### B MP, CBC #### [facility] [address] Platelets (Bld) [#/Vol] 173 10*3/uL Normal 150-450 [facility] Comment on above: Performed By: #### B MP, CBC #### [facility] [address] RBC (Bld) [#/Vol] 5.01 10*6/uL Normal 3.90-5.60 [facility] Comment on above: Performed By: #### B MP, CBC #### [facility] [address] WBC (Bld) [#/Vol] 4.9 10*3/uL Normal 4.1-10.5 [facility] Comment on above: Performed By: #### B MP, CBC #### [facility] [address] Creatinine [Mass/volume] in Serum or PlasmaOrdered By: Yogesh Becker on 10-23-2023 Creatinine [Mass/Vol] 0.71 mg/dL 0.70-1.30 [facility] Eosinophils Auto (Bld) [#/Vo l]Ordered By: Yogesh Becker on 10-23-2023 Eosinophils (Bld) [#/Vol] 0.2 10*3/uL 0.0-0.45 [facility] Eosinophils/100 WBC Auto (Bl d)Ordered By: Yogesh Becker on 10-23-2023 Eosinophils/100 WBC (Bld) 3.6 % . [facility] Erythrocyte distribution wid th Auto (RBC) [Ratio]Ordered By: Yogesh Becker on 10-23-2023 Erythrocyte distribution width (RBC) [Ratio] 14.3 % 12.0-14.8 [facility] Glucose [Mass/volume] in Ser um or PlasmaOrdered By: Yogesh Becker on 10-23-2023 Glucose [Mass/Vol] 105 mg/dL 70-100 [facility] Comment on above: ADA recommended refe rence rangeRandom Glucose Reference Range is dependent on time and content of last meal. Glucose of more than 200 mg/dL in a nonstressed, ambulatory subject supports the diagnosis of Diabetes Mellitus. Hematocrit Auto (Bld) [Volum e fraction]Ordered By: Yogesh Becker on 10-23-2023 Hematocrit (Bld) [Volume fraction] 48.1 % 38.8-50.0 [facility] Hemoglobin [Mass/volume] in BloodOrdered By: Yogesh Becker on 10-23-2023 Hemoglobin (Bld) [Mass/Vol] 16.2 g/dL 13.0-17.0 [facility] Leukocytes [#/volume] correc charanjit for nucleated erythrocytes in Blood by Automated counOrdered By: Yogesh Becker on 10-23-2023 WBC corrected for nucl RBC Auto (Bld) [#/Vol] 4.9 10*3/uL 4.1-10.5 [facility] Lymphocytes Auto (Bld) [#/Vo l]Ordered By: Yogesh Becker on 10-23-2023 Lymphocytes (Bld) [#/Vol] 1.3 10*3/uL 1.00-4.8 [facility] Lymphocytes/100 WBC Auto (Bl d)Ordered By: Yogesh Becker on 10-23-2023 Lymphocytes/100 WBC (Bld) 26.8 % . [facility] MCH Auto (RBC) [Entitic mass ]Ordered By: Yogesh Becker on 10-23-2023 MCH (RBC) [Entitic mass] 32.4 pg 27.5-35.2 [facility] MCHC Auto (RBC) [Mass/Vol]Or dered By: Yogesh Becker on 10-23-2023 MCHC (RBC) [Mass/Vol] 33.8 g/dL 32.5-35.6 [facility] MCV Auto (RBC) [Entitic vol] Ordered By: Yogesh Becker on 10-23-2023 MCV (RBC) [Entitic vol] 96.0 fL 83.5-101 [facility] Monocytes Auto (Bld) [#/Vol] Ordered By: Yogesh Becker on 10-23-2023 Monocytes (Bld) [#/Vol] 0.5 10*3/uL 0.0-0.8 [facility] Monocytes/100 WBC Auto (Bld) Ordered By: Yogesh Becker on 10-23-2023 Monocytes/100 WBC (Bld) 9.4 % . [facility] Neutrophils Auto (Bld) [#/Vo l]Ordered By: Yogesh Becker on 10-23-2023 Neutrophils (Bld) [#/Vol] 2.9 10*3/uL 1.8-7.7 [facility] Neutrophils/100 WBC Auto (Bl d)Ordered By: Yogesh Becker on 10-23-2023 Neutrophils/100 WBC (Bld) 59.4 % . [facility] No Panel InformationOrdered By: Yogesh Becker on 10-23-2023 Estimated GFR (CKD-EPI) > 60.0 mL/Min [facility] Creatinine Clearance (Chem N/A [facility] Nucleated erythrocytes [Pres ence] in Blood by Automated countOrdered By: Yogesh Becker on 10-23-2023 Nucleated RBC Auto Ql (Bld) 0.1 /100{WBC} 0-0.5 [facility] Platelet mean volume Auto (B ld) [Entitic vol]Ordered By: Yogesh Becker on 10-23-2023 Platelet mean volume (Bld) [Entitic vol] 8.4 fL 6.6-10.1 [facility] Platelets Auto (Bld) [#/Vol] Ordered By: Yogesh Becker on 10-23-2023 Platelets (Bld) [#/Vol] 173 10*3/uL 150-450 [facility] Potassium [Moles/volume] in Serum or PlasmaOrdered By: Yogesh Becker on 10-23-2023 Potassium [Moles/Vol] 4.5 mmol/L 3.5-5.1 [facility] RBC Auto (Bld) [#/Vol]Ordere d By: Yogesh Becker on 10-23-2023 RBC (Bld) [#/Vol] 5.01 10*6/uL 3.90-5.60 [facility] Serum or plasma anion gap de terminationOrdered By: Yogesh Becker on 10-23-2023 Anion gap [Moles/Vol] 9.7 mmol/L 6.0-15.0 [facility] Sodium [Moles/volume] in Ser um or PlasmaOrdered By: Yogesh Becker on 10-23-2023 Sodium [Moles/Vol] 139 mmol/L 136-145 [facility] Urea nitrogen [Mass/volume] in Serum or PlasmaOrdered By: Yogesh Becker on 10-23-2023 Urea nitrogen [Mass/Vol] 18 mg/dL 7-25 [facility] WBC Auto (Bld) [#/Vol]Ordere d By: Yogesh Becker on 10-23-2023 WBC (Bld) [#/Vol] 4.9 10*3/uL 4.1-10.5 [facility] Amphetamine Screen Ql (U)Ord ered By: Giuseppe Desouza on 10-02-2023 Amphetamines Ql (U) Negative Negative [facility] Barbiturates [Presence] in U rine by Screen methodOrdered By: Giuseppe Desouza on 10-02-2023 Barbiturates Screen Ql (U) Negative Negative [facility] Benzodiazepines Screen Ql (U )Ordered By: Giuseppe Desouza on 10-02-2023 Benzodiazepines Ql (U) Positive Negative [facility] Benzoylecgonine [Presence] i n Urine by Screen methodOrdered By: Giuseppe Desouza on 10-02-2023 Benzoylecgonine Screen Ql (U) Positive Negative [facility] Cannabinoids [Presence] in U rine by Screen methodOrdered By: Giuseppe Desouza on 10-02-2023 Cannabinoids Screen Ql (U) Positive Negative [facility] Comment on above: These are unconfirme d results and should not be used for legal purposes. Drug Cut-Off Concentration: AMPH 1000 ng/mL ZE 200 ng/mL DUANE 200 ng/mL COCM 300 ng/mL OP 300 ng/mL PCP 25 ng/mL THC 20 ng/mL Drug Screen,Urineon 10-02-20 Amphetamine Screen,Urine Negative Normal Negative [facility] Comment on above: Performed By: #### U RDS ####[address] Barbiturate Screen,Urine Negative Normal Negative [facility] Comment on above: Performed By: #### U RDS ####[place] [id number] [facility] Benzodiazepines Screen,Urine Positive High Negative [facility] Comment on above: Performed By: #### U RDS ####[address] Cannabinoid Screen,Urine Positive High Negative [facility] Comment on above: Result Comment: Thes e are unconfirmed results and should not be used for legal purposes. Drug Cut-Off Concentration: AMPH 1000 ng/mL ZE 200 ng/mL DUANE 200 ng/mL COCM 300 ng/mL OP 300 ng/mL PCP 25 ng/mL THC 20 ng/mL PERFORMED BY: [facility] [address] [place] [address] PATHOLOGIST PATTERN DUPLICATOR CLEVE CANDELARIA M.D. Performed By: #### U RDS ####[place] [id number] [facility] Cocaine Screen,Urine Positive High Negative [facility] Comment on above: Performed By: #### U RDS ####[place] [id number] [facility] Opiate Screen,Urine Negative Normal Negative [facility] Comment on above: Performed By: #### U RDS ####[place] [id number] [facility] Phencyclidine Screen,Urine Negative Normal Negative [facility] Comment on above: Performed By: #### U RDS ####[address] Glucose Glucometer (BldC) [M ass/Vol]Ordered By: Yogesh Becker on 10-02-2023 Glucose [Mass/Vol] 290 mg/dL [facility] Comment on above: Random Glucose Refer ence Range is dependent on time and content of last meal. Glucose of more than 200 mg/dL in a nonstressed, ambulatory subject supports the diagnosis of Diabetes Mellitus. Glucose Poct Glucometerson 1 12-03-2022 Commemt1 Glu2: Cleaned Meter Normal [facility] Comment on above: Result Comment: PERF ORMED BY: [facility] [address] [place] [address] PATHOLOGIST PATTERN DUPLICATOR CLEVE CANDELARIA M.D. Performed By: #### G LULS #### Point of Care testing , Glucose [Mass/Vol] 290 mg/dL Normal [facility] Comment on above: Result Comment: [place] om Glucose Reference Range is dependent on time and content of last meal. Glucose of more than 200 mg/dL in a nonstressed, ambulatory subject supports the diagnosis of Diabetes Mellitus. Performed By: #### G LULS #### Point of Care testing , No Panel InformationOrdered By: Yogesh Becker on 10-02-2023 Bedside Glucose Comment Glu2: cleaned meter [facility] Opiates [Presence] in Urine by Screen methodOrdered By: Giuseppe Desouza on 10-02-2023 Opiates Screen Ql (U) Negative Negative [facility] Phencyclidine Screen Ql (U)O rdered By: Giuseppe Desouza on 10-02-2023 Phencyclidine Ql (U) Negative Negative [facility] POC Glucose Randomon 023 Glucose [Mass/Vol] 192 mg/dL High 70-99 [facility] Comment on above: Performed By: #### C [id number] #### [facility] [address] [place] [address] Glucose [Mass/Vol] 246 mg/dL High 70-99 [facility] Comment on above: Performed By: #### C [id number] #### [facility] [address] [place] [address] Basic Metabolic Panelon 11-2 Anion gap [Moles/Vol] 13.1 mmol/L Normal 6.0-15.0 [facility] Comment on above: Performed By: #### B MP, CBC #### [facility] [address] [place] [address] [place] Calcium [Mass/Vol] 9.3 mg/dL Normal 8.6-10.3 [facility] Comment on above: Result Comment: PERF ORMED BY: [place] [address] PATHOLOGIST PATTERN DUPLICATOR CLEVE CANDELARIA M.D. Performed By: #### B MP, CBC #### [facility] [address] [place] [address] [place] Chloride [Moles/Vol] 96 mmol/L Low 98-107 [facility] Comment on above: Performed By: #### B MP, CBC #### [facility] [address] [place] [address] [place] CO2 [Moles/Vol] 30.6 mmol/L Normal 21.0-31.0 [facility] Comment on above: Performed By: #### B MP, CBC #### [facility] [address] [place] [address] [place] Creatinine [Mass/Vol] 1.01 mg/dL Normal 0.70-1.30 [facility] Comment on above: Performed By: #### B MP, CBC #### [facility] [address] [place] [address] [place] GFR/1.73 sq M.predicted MDRD (S/P/Bld) [Vol rate/Area] mL/min/{1.73_m2} Normal [facility] Comment on above: Performed By: #### B MP, CBC #### [facility] [address] [place] [address] [place] Glucose [Mass/Vol] 412 mg/dL High 70-100 [facility] Comment on above: Result Comment: Brady Glucose Reference Range is dependent on time and content of last meal. Glucose of more than 200 mg/dL in a nonstressed, ambulatory subject supports the diagnosis of Diabetes Mellitus. ADA recommended reference range Performed By: #### B MP, CBC #### [facility] [address] Potassium [Moles/Vol] 4.7 mmol/L Normal 3.5-5.1 [facility] Comment on above: Performed By: #### B MP, CBC #### [facility] [address] Sodium [Moles/Vol] 135 mmol/L Low 136-145 [facility] Comment on above: Performed By: #### B MP, CBC #### [facility] [address] Urea nitrogen [Mass/Vol] 28 mg/dL High 7-25 [facility] Comment on above: Performed By: #### B MP, CBC #### [facility] [address] Basophils Auto (Bld) [#/Vol] Ordered By: Yogesh Becker on 09-23-2023 Basophils (Bld) [#/Vol] 0.1 10*3/uL 0.0-0.2 [facility] Basophils/100 WBC Auto (Bld) Ordered By: Yogesh Becker on 09-23-2023 Basophils/100 WBC (Bld) 0.6 % . [facility] Calcium [Mass/volume] in Ser um or PlasmaOrdered By: Yogesh Becker on 09-23-2023 Calcium [Mass/Vol] 9.3 mg/dL 8.6-10.3 [facility] Carbon dioxide, total [Moles /volume] in Serum or PlasmaOrdered By: Yogesh Becker on 09-23-2023 CO2 [Moles/Vol] 30.6 mmol/L 21.0-31.0 [facility] Chloride [Moles/volume] in S raffi or PlasmaOrdered By: Yogesh Becker on 09-23-2023 Chloride [Moles/Vol] 96 mmol/L 98-107 [facility] Complete Blood Count Auto Di ffon 09-23-2023 Basophils (Bld) [#/Vol] 0.1 10*3/uL Normal 0.0-0.2 [facility] Comment on above: Result Comment: PERF ORMED BY: [place] [address] PATHOLOGIST PATTERN DUPLICATOR CLEVE CANDELARIA M.D. Performed By: #### B MP, CBC #### [facility] [address] Basophils/100 WBC (Bld) 0.6 % Normal . [facility] Comment on above: Performed By: #### B MP, CBC #### [facility] [address] Eosinophils (Bld) [#/Vol] 0.0 10*3/uL Normal 0.0-0.45 [facility] Comment on above: Performed By: #### B MP, CBC #### [address] Eosinophils/100 WBC (Bld) 0.1 % Normal . [facility] Comment on above: Performed By: #### B MP, CBC #### [address] Erythrocyte distribution width (RBC) [Ratio] 13.9 % Normal 12.0-14.8 [facility] Comment on above: Performed By: #### B MP, CBC #### [address] Hematocrit (Bld) [Volume fraction] 47.2 % Normal 38.8-50.0 [facility] Comment on above: Performed By: #### B MP, CBC #### [address] Hemoglobin (Bld) [Mass/Vol] 15.7 g/dL Normal 13.0-17.0 [facility] Comment on above: Performed By: #### B MP, CBC #### [place] [address] [place] Lymphocytes (Bld) [#/Vol] 1.7 10*3/uL Normal 1.00-4.8 [facility] Comment on above: Performed By: #### B MP, CBC #### [address] Lymphocytes/100 WBC (Bld) 13.3 % Normal . [facility] Comment on above: Performed By: #### B MP, CBC #### [address] MCH (RBC) [Entitic mass] 32.3 pg Normal 27.5-35.2 [facility] Comment on above: Performed By: #### B MP, CBC #### [address] MCV (RBC) [Entitic vol] 96.9 fL Normal 83.5-101 [facility] Comment on above: Performed By: #### B MP, CBC #### [address] Mean Corpuscular HGB Conc 33.4 g/dL Normal 32.5-35.6 [facility] Comment on above: Performed By: #### B MP, CBC #### [address] Monocytes (Bld) [#/Vol] 0.6 10*3/uL Normal 0.0-0.8 [facility] Comment on above: Performed By: #### B MP, CBC #### [address] Monocytes/100 WBC (Bld) 4.6 % Normal . [facility] Comment on above: Performed By: #### B MP, CBC #### [address] Neutrophils (Bld) [#/Vol] 10.1 10*3/uL High 1.8-7.7 [facility] Comment on above: Performed By: #### B MP, CBC #### [address] Neutrophils/100 WBC (Bld) 81.4 % Normal . [facility] Comment on above: Performed By: #### B MP, CBC #### [address] NRBC% 0.0 /100{WBC} Normal 0-0.5 [facility] Comment on above: Performed By: #### B MP, CBC #### [facility] [address] [place] [address] Platelet mean volume (Bld) [Entitic vol] 8.3 fL Normal 6.6-10.1 [facility] Comment on above: Performed By: #### B MP, CBC #### [address] Platelets (Bld) [#/Vol] 203 10*3/uL Normal 150-450 [facility] Comment on above: Performed By: #### B MP, CBC #### [address] RBC (Bld) [#/Vol] 4.87 10*6/uL Normal 3.90-5.60 [facility] Comment on above: Performed By: #### B MP, CBC #### [address] WBC (Bld) [#/Vol] 12.4 10*3/uL High 4.1-10.5 [facility] Comment on above: Performed By: #### B MP, CBC #### [address] Creatinine [Mass/volume] in Serum or PlasmaOrdered By: Yogesh Becker on 09-23-2023 Creatinine [Mass/Vol] 1.01 mg/dL 0.70-1.30 [facility] ECG 12 lead ECGon 09-23-2023 ECG 12 lead ECG [facility] [place] [address] [place] [address] Electrocardiograph Report Signed Patient: Koko Meier MR#: [id number] : 1960 Acct:[id number] Age/Sex: 62 / M ADM Date: 09/23/23 Loc: Room: Type: [facility] Attending Dr: Yogesh Becker MD Ordering Provider: Yogesh Becker MD Date of Service: 09/23/23 ECG/ECG [...] axis shifted right Confirmed by [id number] on 09/23/2023 10:29:43 PM Referred By: OLEGARIO BECKER Electronically Signed By:KIRSTIE CERVANTES MD [facility] Transcribed By: MUS Signed By Barron Cervantes MD 09/23/232228 Normal [facility] Eosinophils Auto (Bld) [#/Vo l]Ordered By: Yogesh Becker on 09-23-2023 Eosinophils (Bld) [#/Vol] 0.0 10*3/uL 0.0-0.45 [facility] Eosinophils/100 WBC Auto (Bl d)Ordered By: Yogesh Becker on 09-23-2023 Eosinophils/100 WBC (Bld) 0.1 % . [facility] Erythrocyte distribution wid th Auto (RBC) [Ratio]Ordered By: Yogesh Becker on 09-23-2023 Erythrocyte distribution width (RBC) [Ratio] 13.9 % 12.0-14.8 [facility] Glucose [Mass/volume] in Ser um or PlasmaOrdered By: Yogesh Becker on 09-23-2023 Glucose [Mass/Vol] 412 mg/dL 70-100 [facility] Comment on above: ADA recommended refe rence rangeRandom Glucose Reference Range is dependent on time and content of last meal. Glucose of more than 200 mg/dL in a nonstressed, ambulatory subject supports the diagnosis of Diabetes Mellitus. Hematocrit Auto (Bld) [Volum e fraction]Ordered By: Yogesh Becker on 09-23-2023 Hematocrit (Bld) [Volume fraction] 47.2 % 38.8-50.0 [facility] Hemoglobin [Mass/volume] in BloodOrdered By: Yogesh Becker on 09-23-2023 Hemoglobin (Bld) [Mass/Vol] 15.7 g/dL 13.0-17.0 [facility] Leukocytes [#/volume] correc charanjit for nucleated erythrocytes in Blood by Automated counOrdered By: Yogesh Becker on 09-23-2023 WBC corrected for nucl RBC Auto (Bld) [#/Vol] 12.4 10*3/uL 4.1-10.5 [facility] Lymphocytes Auto (Bld) [#/Vo l]Ordered By: Yogesh Becker on 09-23-2023 Lymphocytes (Bld) [#/Vol] 1.7 10*3/uL 1.00-4.8 [facility] Lymphocytes/100 WBC Auto (Bl d)Ordered By: Yogesh Becker on 09-23-2023 Lymphocytes/100 WBC (Bld) 13.3 % . [facility] MCH Auto (RBC) [Entitic mass ]Ordered By: Yogesh Becker on 09-23-2023 MCH (RBC) [Entitic mass] 32.3 pg 27.5-35.2 [facility] MCHC Auto (RBC) [Mass/Vol]Or dered By: Yogesh Becker on 09-23-2023 MCHC (RBC) [Mass/Vol] 33.4 g/dL 32.5-35.6 [facility] MCV Auto (RBC) [Entitic vol] Ordered By: Yogesh Becker on 09-23-2023 MCV (RBC) [Entitic vol] 96.9 fL 83.5-101 [facility] Monocytes Auto (Bld) [#/Vol] Ordered By: Yogesh Becker on 09-23-2023 Monocytes (Bld) [#/Vol] 0.6 10*3/uL 0.0-0.8 [facility] Monocytes/100 WBC Auto (Bld) Ordered By: Yogesh Becker on 09-23-2023 Monocytes/100 WBC (Bld) 4.6 % . [facility] Neutrophils Auto (Bld) [#/Vo l]Ordered By: Yogesh Becker on 09-23-2023 Neutrophils (Bld) [#/Vol] 10.1 10*3/uL 1.8-7.7 [facility] Neutrophils/100 WBC Auto (Bl d)Ordered By: Yogesh Becker on 09-23-2023 Neutrophils/100 WBC (Bld) 81.4 % . [facility] No Panel InformationOrdered By: Yogesh Becker on 09-23-2023 Estimated GFR (CKD-EPI) > 60.0 mL/Min [facility] Creatinine Clearance (Chem N/A [facility] Nucleated erythrocytes [Pres ence] in Blood by Automated countOrdered By: Yogesh Becker on 09-23-2023 Nucleated RBC Auto Ql (Bld) 0.0 /100{WBC} 0-0.5 [facility] Platelet mean volume Auto (B ld) [Entitic vol]Ordered By: Yogesh Becker on 09-23-2023 Platelet mean volume (Bld) [Entitic vol] 8.3 fL 6.6-10.1 [facility] Platelets Auto (Bld) [#/Vol] Ordered By: Yogesh Becker on 09-23-2023 Platelets (Bld) [#/Vol] 203 10*3/uL 150-450 [facility] Potassium [Moles/volume] in Serum or PlasmaOrdered By: Yogesh Becker on 09-23-2023 Potassium [Moles/Vol] 4.7 mmol/L 3.5-5.1 [facility] RBC Auto (Bld) [#/Vol]Ordere d By: Yogesh Becker on 09-23-2023 RBC (Bld) [#/Vol] 4.87 10*6/uL 3.90-5.60 [facility] Serum or plasma anion gap de terminationOrdered By: Yogesh Becker on 09-23-2023 Anion gap [Moles/Vol] 13.1 mmol/L 6.0-15.0 [facility] Sodium [Moles/volume] in Ser um or PlasmaOrdered By: Yogesh Becker on 09-23-2023 Sodium [Moles/Vol] 135 mmol/L 136-145 [facility] Urea nitrogen [Mass/volume] in Serum or PlasmaOrdered By: Yogesh Becker on 09-23-2023 Urea nitrogen [Mass/Vol] 28 mg/dL 05-20 [facility] WBC Auto (Bld) [#/Vol]Ordere d By: Yogesh Becker on 09-23-2023 WBC (Bld) [#/Vol] 12.4 10*3/uL 4.1-10.5 [facility] CT ABDOMEN PELVIS W IV CONTR Ammon [...] spine 5V*on 07-27 XR cervical spine 5V* [facility] Main [place] [address] [place] [address] XRay Report Signed Patient: Koko Meier MR#: [id number] : 1960 Acct:[id number] Age/Sex: 62 / M ADM Date: 08/11/23 Loc: [place] Room: Type: [facility] Attending Dr: Savanna Mcclain MD Copies to: [...] Koko Hernandez M.D.08/11/2023 5:00 PM Dictation Location: [place] [address] Transcribed By: [facility] 08/11/23 170 Dictated By: Koko Hernandez DO 08/11/23 0860 Signed By: 08/11/231699 [facility] XR thoracic spine 3V*on 07-27 XR thoracic spine 3V* [facility] Main [address] [address] XRay Report Signed Patient: Koko Meier MR#: [id number] : 1960 Acct:[id number] Age/Sex: 62 / M ADM Date: 08/11/23 Loc: [place] Room: Type: [facility] CLI Attending Dr: Savanna Mcclain MD Copies to: [...] Koko Hernandez M.D.08/11/2023 5:01 PM Dictation Location: [place] [address] Transcribed By: [facility] 08/11/231700 Dictated By: Koko Hernandez DO 08/11/231699 Signed By: 08/11/231700 Normal [facility] XR lumbar spine 6V w bending on 08-01-2023 XR lumbar spine 6V w bending [facility] Main [address] [address] XRay Report Signed Patient: Koko Meier MR#: [id number] : 1960 Acct:[id number] Age/Sex: 62 / M ADM Date: 08/01/23 Loc: [place] Room: Type: [facility] CLI Attending Dr: Josh Melvin [...] Monika Eastman M.D.08/01/2023 1:06 PM Dictation Location: [facility]10 Transcribed By: [facility] 08/01/23 1306 Dictated By: Monika Eastman MD 08/01/23 1210 Signed By: 08/01/23 1306 [facility] A1C with Estimated Average G alice 04-21-2023 Glucose [Mass/Vol] 197 mg/dL Normal [facility] Comment on above: Result Comment: PERF ORMED BY: [facility] [address] [place] [address] PATHOLOGIST PATTERN DUPLICATOR CLEVE CANDELRAIA M.D. Performed By: #### A 1C WTH eA, CMP, CBC, LIPID ####[facility] [id number] [place] [address] [facility] HbA1c (Bld) [Mass fraction] 8.5 % High 4.3-5.6 [facility] Comment on above: Result Comment: Incr eased risk for diabetes: 5.7 - 6.4 diabetes: >6.4 glycemic control for adults with diabetes: <7.0 Performed By: #### A 1C WTH eA, CMP, CBC, LIPID ####[facility] [id number] [place] [id number] [facility] Alanine aminotransferase [En zymatic activity/volume] in Serum or PlasmaOrdered By: Josh Bunting on 04-21-2023 ALT [Catalytic activity/Vol] 19 U/L 7-52 [facility] Albumin [Mass/volume] in Ser um or Plasma by Bromocresol green (BCG) dye binding methoOrdered By: Josh Bunting on 04-21-2023 Albumin BCG dye [Mass/Vol] 4.2 g/dL 3.5-5.7 [facility] Alkaline phosphatase [Enzyma tic activity/volume] in Serum or PlasmaOrdered By: Josh Bunting on 04-21-2023 ALP [Catalytic activity/Vol] 67 U/L 34-104 [facility] Aspartate aminotransferase [ Enzymatic activity/volume] in Serum or PlasmaOrdered By: Josh Bunting on 04-21-2023 AST [Catalytic activity/Vol] 16 U/L 13-39 [facility] Basophils Auto (Bld) [#/Vol] Ordered By: Josh Bunting on 04-21-2023 Basophils (Bld) [#/Vol] 0.1 10*3/uL 0.0-0.2 [facility] Basophils/100 WBC Auto (Bld) Ordered By: Josh Bunting on 04-21-2023 Basophils/100 WBC (Bld) 0.9 % . [facility] Bilirubin.total [Mass/volume ] in Serum or PlasmaOrdered By: Josh Bunting on 04-21-2023 Bilirubin [Mass/Vol] 0.4 mg/dL 0.3-1.0 [facility] Calcium [Mass/volume] in Ser um or PlasmaOrdered By: Josh Bunting on 04-21-2023 Calcium [Mass/Vol] 9.3 mg/dL 8.6-10.3 [facility] Carbon dioxide, total [Moles /volume] in Serum or PlasmaOrdered By: Josh Bunting on 04-21-2023 CO2 [Moles/Vol] 30.3 mmol/L 21.0-31.0 [facility] Chloride [Moles/volume] in S raffi or PlasmaOrdered By: Josh Melvin on 04-21-2023 Chloride [Moles/Vol] 99 mmol/L 98-107 [facility] Cholesterol [Mass/volume] in Serum or PlasmaOrdered By: Josh Melvin on 04-21-2023 Cholesterol [Mass/Vol] 300 mg/dL 140-200 [facility] Comment on above: Chol less than 200 m g/dl low riskChol 201-239 mg/dl borderline riskChol 240 mg/dl and greater high risk Cholesterol in LDL Calc [Mas s/Vol]Ordered By: Josh Melvin on 04-21-2023 Cholesterol in LDL [Mass/Vol] 207 mg/dL 0-100 [facility] Comment on above: LDL ATP III CLASSIFI CATIONLDL less than 100 mg/dL OptimalLDL 100-129 mg/dL Near or above optimalLDL 130-159 mg/dL Borderline highLDL 160-189 mg/dL HighLDL greater than 189 mg/dL Very high Cholesterol in VLDL Calc [Ma ss/Vol]Ordered By: Josh Melvin on 04-21-2023 Cholesterol in VLDL [Mass/Vol] 32 mg/dL [facility] Complete Blood Count Auto Di ffon 04-21-2023 Basophils (Bld) [#/Vol] 0.1 10*3/uL Normal 0.0-0.2 [facility] Comment on above: Result Comment: PERF ORMED BY: [facility] [address] [place] [address] PATHOLOGIST PATTERN DUPLICATOR CLEVE CANDELARIA M.D. Performed By: #### A 1C WT eA, CMP, CBC, LIPID ####[facility] [id number] [place] [address] [place] Basophils/100 WBC (Bld) 0.9 % Normal . [facility] Comment on above: Performed By: #### A 1C WT eA, CMP, CBC, LIPID ####[facility] [id number] [place] [address] [place] Eosinophils (Bld) [#/Vol] 0.2 10*3/uL Normal 0.0-0.45 [facility] Comment on above: Performed By: #### A 1C [facility] eA, CMP, CBC, LIPID ####[address] Eosinophils/100 WBC (Bld) 2.1 % Normal . [facility] Comment on above: Performed By: #### A 1C WT eA, CMP, CBC, LIPID ####[address] Erythrocyte distribution width (RBC) [Ratio] 15.0 % High 12.0-14.8 [facility] Comment on above: Performed By: #### A WT eA, CMP, CBC, LIPID ####[address] Hematocrit (Bld) [Volume fraction] 48.8 % Normal 38.8-50.0 [facility] Comment on above: Performed By: #### A [facility] eA, CMP, CBC, LIPID ####[address] Hemoglobin (Bld) [Mass/Vol] 16.7 g/dL Normal 13.0-17.0 [facility] Comment on above: Performed By: #### A [facility] eA, CMP, CBC, LIPID ####[address] Lymphocytes (Bld) [#/Vol] 1.9 10*3/uL Normal 1.00-4.8 [facility] Comment on above: Performed By: #### A [facility] eA, CMP, CBC, LIPID ####[address] Lymphocytes/100 WBC (Bld) 26.3 % Normal . [facility] Comment on above: Performed By: #### A 1C WT eA, CMP, CBC, LIPID ####[address] MCH (RBC) [Entitic mass] 32.5 pg Normal 27.5-35.2 [facility] Comment on above: Performed By: #### A 1C WT eA, CMP, CBC, LIPID ####[address] MCV (RBC) [Entitic vol] 95.2 fL Normal 83.5-101 [facility] Comment on above: Performed By: #### A 1C WTH eA, CMP, CBC, LIPID ####[address] Mean Corpuscular HGB Conc 34.2 g/dL Normal 32.5-35.6 [facility] Comment on above: Performed By: #### A 1C WT eA, CMP, CBC, LIPID ####[address] Monocytes (Bld) [#/Vol] 0.4 10*3/uL Normal 0.0-0.8 [facility] Comment on above: Performed By: #### A 1C WT eA, CMP, CBC, LIPID ####[address] Monocytes/100 WBC (Bld) 5.5 % Normal . [facility] Comment on above: Performed By: #### A 1C WT eA, CMP, CBC, LIPID ####[address] Neutrophils (Bld) [#/Vol] 4.6 10*3/uL Normal 1.8-7.7 [facility] Comment on above: Performed By: #### A 1C WT eA, CMP, CBC, LIPID ####[address] Neutrophils/100 WBC (Bld) 65.2 % Normal . [facility] Comment on above: Performed By: #### A 1C WT eA, CMP, CBC, LIPID ####[address] NRBC% 0.0 /100{WBC} Normal 0-0.5 [facility] Comment on above: Performed By: #### A 1C WTH eA, CMP, CBC, LIPID ####[address] Platelet mean volume (Bld) [Entitic vol] 8.6 fL Normal 6.6-10.1 [facility] Comment on above: Performed By: #### A 1C WT eA, CMP, CBC, LIPID ####[place] [address] [address] Platelets (Bld) [#/Vol] 200 10*3/uL Normal 150-450 [facility] Comment on above: Performed By: #### A 1C WT eA, CMP, CBC, LIPID ####[address] RBC (Bld) [#/Vol] 5.13 10*6/uL Normal 3.90-5.60 [facility] Comment on above: Performed By: #### A 1C WT eA, CMP, CBC, LIPID ####[place] [address] WBC (Bld) [#/Vol] 7.1 10*3/uL Normal 4.1-10.5 [facility] Comment on above: Performed By: #### A 1C [facility] eA, CMP, CBC, LIPID ####[place] [address] [address] Comprehensive Metabolic Pane brennen 04-21-2023 Albumin [Mass/Vol] 4.2 g/dL Normal 3.5-5.7 [facility] Comment on above: Order Comment: PT FA STED 12 HOURS Performed By: #### A 1C WT eA, CMP, CBC, LIPID ####[address] Albumin/Globulin [Mass ratio] 1.9 {ratio} Normal [facility] Comment on above: Order Comment: PT FA STED 12 HOURS Performed By: #### A 1C WT eA, CMP, CBC, LIPID ####[address] ALP [Catalytic activity/Vol] 67 U/L Normal 34-104 [facility] Comment on above: Order Comment: PT FA STED 12 HOURS Performed By: #### A 1C WT eA, CMP, CBC, LIPID ####[facility] [place] [address] [facility] ALT [Catalytic activity/Vol] 19 U/L Normal 7-52 [facility] Comment on above: Order Comment: PT FA STED 12 HOURS Performed By: #### A 1C WTH eA, CMP, CBC, LIPID ####[facility] [place] [address] [facility] Anion gap [Moles/Vol] 11.3 mmol/L Normal 6.0-15.0 [facility] Comment on above: Order Comment: PT FA STED 12 HOURS Performed By: #### A 1C WTH eA, CMP, CBC, LIPID ####[place] [address] [place] [address] [facility] AST [Catalytic activity/Vol] 16 U/L Normal 13-39 [facility] Comment on above: Order Comment: PT FA STED 12 HOURS Performed By: #### A 1C WTH eA, CMP, CBC, LIPID ####[place] [address] [place] [address] [facility] Bilirubin [Mass/Vol] 0.4 mg/dL Normal 0.3-1.0 [facility] Comment on above: Order Comment: PT FA STED 12 HOURS Performed By: #### A 1C WTH eA, CMP, CBC, LIPID ####[place] [address] [place] [address] [facility] Calcium [Mass/Vol] 9.3 mg/dL Normal 8.6-10.3 [facility] Comment on above: Order Comment: PT FA STED 12 HOURS Performed By: #### A 1C WTH eA, CMP, CBC, LIPID ####[place] [address] [place] [address] [place] Chloride [Moles/Vol] 99 mmol/L Normal 98-107 [facility] Comment on above: Order Comment: PT FA STED 12 HOURS Performed By: #### A 1C WTH eA, CMP, CBC, LIPID ####[place] [address] [place] [address] [place] CO2 [Moles/Vol] 30.3 mmol/L Normal 21.0-31.0 [facility] Comment on above: Order Comment: PT FA STED 12 HOURS Performed By: #### A 1C WTCeleste eA, CMP, CBC, LIPID ####[address] Creatinine [Mass/Vol] 0.90 mg/dL Normal 0.70-1.30 [facility] Comment on above: Order Comment: PT FA STED 12 HOURS Performed By: #### A 1C WTH eA, CMP, CBC, LIPID ####[address] GFR/1.73 sq M.predicted MDRD (S/P/Bld) [Vol rate/Area] mL/min/{1.73_m2} [facility] Comment on above: Order Comment: PT FA STED 12 HOURS Performed By: #### A 1C WTCeleste Walsh, CMP, CBC, LIPID ####[address] Globulin (S) [Mass/Vol] 2.2 g/dL Normal [facility] Comment on above: Order Comment: PT FA STED 12 HOURS Performed By: #### A 1C WTH eA, CMP, CBC, LIPID ####[address] Glucose [Mass/Vol] 149 mg/dL High 70-100 [facility] Comment on above: Order Comment: PT FA STED 12 HOURS Result Comment: Brady Glucose Reference Range is dependent on time and content of last meal. Glucose of more than 200 mg/dL in a nonstressed, ambulatory subject supports the diagnosis of Diabetes Mellitus. ADA recommended reference range Performed By: #### A 1C WTH eA, CMP, CBC, LIPID ####[place] [id number] [facility] Potassium [Moles/Vol] 4.6 mmol/L Normal 3.5-5.1 [facility] Comment on above: Order Comment: PT FA STED 12 HOURS Performed By: #### A 1C WTH eA, CMP, CBC, LIPID ####[facility] Protein [Mass/Vol] 6.4 g/dL Normal 6.4-8.9 [facility] Comment on above: Order Comment: PT FA STED 12 HOURS Performed By: #### A 1C WTH eA, CMP, CBC, LIPID ####[place] [address] [place] [id number] [facility] Sodium [Moles/Vol] 136 mmol/L Normal 136-145 [facility] Comment on above: Order Comment: PT FA STED 12 HOURS Performed By: #### A 1C WTH eA, CMP, CBC, LIPID ####[place] [address] Urea nitrogen [Mass/Vol] 25 mg/dL Normal 7-25 [facility] Comment on above: Order Comment: PT FA STED 12 HOURS Performed By: #### A 1C WT eA, CMP, CBC, LIPID ####[place] [address] Creatinine [Mass/volume] in Serum or PlasmaOrdered By: Josh Bunting on 04-21-2023 Creatinine [Mass/Vol] 0.90 mg/dL 0.70-1.30 [facility] Eosinophils Auto (Bld) [#/Vo l]Ordered By: Josh Bunting on 04-21-2023 Eosinophils (Bld) [#/Vol] 0.2 10*3/uL 0.0-0.45 [facility] Eosinophils/100 WBC Auto (Bl d)Ordered By: Josh Bunting on 04-21-2023 Eosinophils/100 WBC (Bld) 2.1 % . [facility] Erythrocyte distribution wid th Auto (RBC) [Ratio]Ordered By: Josh Bunting on 04-21-2023 Erythrocyte distribution width (RBC) [Ratio] 15.0 % 12.0-14.8 [facility] Globulin Calc (S) [Mass/Vol] Ordered By: Josh Bunting on 04-21-2023 Globulin (S) [Mass/Vol] 2.2 g/dL [facility] Glucose [Mass/volume] in Ser um or PlasmaOrdered By: Josh Melvin on 04-21-2023 Glucose [Mass/Vol] 149 mg/dL 70-100 [facility] Comment on above: ADA recommended refe rence rangeRandom Glucose Reference Range is dependent on time and content of last meal. Glucose of more than 200 mg/dL in a nonstressed, ambulatory subject supports the diagnosis of Diabetes Mellitus. Glucose mean value [Mass/vol ume] in Blood Estimated from glycated hemoglobinOrdered By: Josh Melvin on 04-21-2023 Average glucose Estimated from glycated hemoglobin (Bld) [Mass/Vol] 197 mg/dL [facility] Hematocrit Auto (Bld) [Volum e fraction]Ordered By: Josh Melvin on 04-21-2023 Hematocrit (Bld) [Volume fraction] 48.8 % 38.8-50.0 [facility] Hemoglobin A1c percentageOrd ered By: Josh Melvin on 04-21-2023 HbA1c (Bld) [Mass fraction] 8.5 % 4.3-5.6 [facility] Comment on above: Increased risk for d iabetes: 5.7 - 6.4diabetes: >6.4glycemic control for adults with diabetes: <7.0 Hemoglobin [Mass/volume] in BloodOrdered By: Josh Melvin on 04-21-2023 Hemoglobin (Bld) [Mass/Vol] 16.7 g/dL 13.0-17.0 [facility] Leukocytes [#/volume] correc charanjit for nucleated erythrocytes in Blood by Automated counOrdered By: Josh Melvin on 04-21-2023 WBC corrected for nucl RBC Auto (Bld) [#/Vol] 7.1 10*3/uL 4.1-10.5 [facility] Lipid Panelon 04-21-2023 Cholesterol [Mass/Vol] 300 mg/dL High 140-200 [facility] Comment on above: Order Comment: PT FA STED 12 HOURS Result Comment: Chol less than 200 mg/dl low risk Chol 201-239 mg/dl borderline risk Chol 240 mg/dl and greater high risk Performed By: #### A 1C WTH eA, CMP, CBC, LIPID ####[facility] [id number] Cholesterol in HDL [Mass/Vol] 61 mg/dL Normal 23-92 [facility] Comment on above: Order Comment: PT FA STED 12 HOURS Result Comment: HDL CHOL ATP-III CLASSIFICATION Cardiovascular Risk HDL > or equal to 60 mg/dL LOW HDL < 40 mg/dL HIGH Performed By: #### A 1C WTH eA, CMP, CBC, LIPID ####[facility] [id number] [place] [address] [facility] Cholesterol.total/Genevieve sterol in HDL [Mass ratio] 4.9 {ratio} Normal <5.0 [facility] Comment on above: Order Comment: PT FA STED 12 HOURS Result Comment: PERF ORMED BY: [facility] [address] [place] [id number] PATHOLOGIST PATTERN DUPLICATOR CLEVE CANDELARIA M.D. Performed By: #### A 1C WTH eA, CMP, CBC, LIPID ####[place] [address] [place] [id number] [facility] LDL Cholesterol,Calculated 207 mg/dL High 0-100 [facility] Comment on above: Order Comment: PT FA STED 12 HOURS Result Comment: LDL ATP III CLASSIFICATION LDL less than 100 mg/dL Optimal LDL 100-129 mg/dL Near or above optimal LDL 130-159 mg/dL Borderline high LDL 160-189 mg/dL High LDL greater than 189 mg/dL Very high Performed By: #### A 1C WTH eA, CMP, CBC, LIPID ####[place] [address] [place] [id number] [facility] Triglyceride w/Reflex 162 mg/dL High 0-149 [facility] Comment on above: Order Comment: PT FA STED 12 HOURS Result Comment: TRIG ATP III CLASSIFICATION TRIG less than 150 mg/dL Normal TRIG 150-199 mg/dL Borderline high TRIG 200-500 mg/dL High TRIG greater than 500 mg/dL Very high Standard traceable to the Center for Disease Conrtrol and Prevention (CDC) test method. Performed By: #### A 1C WTH eA, CMP, CBC, LIPID ####[facility] [id number] [place] [address] [facility] VLDL CHOLESTEROL 32 mg/dL Normal [facility] Comment on above: Order Comment: PT FA STED 12 HOURS Performed By: #### A 1C WT eA, CMP, CBC, LIPID ####[facility] [address] [place] [id number] [facility] Lymphocytes Auto (Bld) [#/Vo l]Ordered By: Josh Bunting on 04-21-2023 Lymphocytes (Bld) [#/Vol] 1.9 10*3/uL 1.00-4.8 [facility] Lymphocytes/100 WBC Auto (Bl d)Ordered By: Josh Bunting on 04-21-2023 Lymphocytes/100 WBC (Bld) 26.3 % . [facility] MCH Auto (RBC) [Entitic mass ]Ordered By: Josh Bunting on 04-21-2023 MCH (RBC) [Entitic mass] 32.5 pg 27.5-35.2 [facility] MCHC Auto (RBC) [Mass/Vol]Or dered By: Josh Bunting on 04-21-2023 MCHC (RBC) [Mass/Vol] 34.2 g/dL 32.5-35.6 [facility] MCV Auto (RBC) [Entitic vol] Ordered By: Josh Bunting on 04-21-2023 MCV (RBC) [Entitic vol] 95.2 fL 83.5-101 [facility] Monocytes Auto (Bld) [#/Vol] Ordered By: Josh Bunting on 04-21-2023 Monocytes (Bld) [#/Vol] 0.4 10*3/uL 0.0-0.8 [facility] Monocytes/100 WBC Auto (Bld) Ordered By: Josh Bunting on 04-21-2023 Monocytes/100 WBC (Bld) 5.5 % . [facility] Neutrophils Auto (Bld) [#/Vo l]Ordered By: Josh Bunting on 04-21-2023 Neutrophils (Bld) [#/Vol] 4.6 10*3/uL 1.8-7.7 [facility] Neutrophils/100 WBC Auto (Bl d)Ordered By: Josh Bunting on 04-21-2023 Neutrophils/100 WBC (Bld) 65.2 % . [facility] No Panel InformationOrdered By: Josh Bunting on 04-21-2023 Estimated GFR (CKD-EPI) > 60.0 mL/Min [facility] Creatinine Clearance (Chem N/A [facility] Nucleated erythrocytes [Pres ence] in Blood by Automated countOrdered By: Josh Bunting on 04-21-2023 Nucleated RBC Auto Ql (Bld) 0.0 /100{WBC} 0-0.5 [facility] Platelet mean volume Auto (B ld) [Entitic vol]Ordered By: Josh Bunting on 04-21-2023 Platelet mean volume (Bld) [Entitic vol] 8.6 fL 6.6-10.1 [facility] Platelets Auto (Bld) [#/Vol] Ordered By: Josh Bunting on 04-21-2023 Platelets (Bld) [#/Vol] 200 10*3/uL 150-450 [facility] Potassium [Moles/volume] in Serum or PlasmaOrdered By: Josh Bunting on 04-21-2023 Potassium [Moles/Vol] 4.6 mmol/L 3.5-5.1 [facility] Protein [Mass/volume] in Ser um or PlasmaOrdered By: Josh Bunting on 04-21-2023 Protein [Mass/Vol] 6.4 g/dL 6.4-8.9 [facility] RBC Auto (Bld) [#/Vol]Ordere d By: Josh Bunting on 04-21-2023 RBC (Bld) [#/Vol] 5.13 10*6/uL 3.90-5.60 [facility] Serum or plasma albumin/glob ulin mass ratioOrdered By: Josh Bunting on 04-21-2023 Albumin/Globulin [Mass ratio] 1.9 {ratio} [facility] Serum or plasma anion gap de terminationOrdered By: Josh Bunting on 04-21-2023 Anion gap [Moles/Vol] 11.3 mmol/L 6.0-15.0 [facility] Serum or plasma high density lipoprotein (HDL) cholesterol measurementOrdered By: Josh Bunting on 04-21-2023 Cholesterol in HDL [Mass/Vol] 61 mg/dL 23-92 [facility] Comment on above: HDL CHOL ATP-III CLA SSIFICATION Cardiovascular RiskHDL > or equal to 60 mg/dL LOWHDL < 40 mg/dL HIGH Serum or plasma total choles terol/high density lipoprotein (HDL) cholesterol mass ratOrdered By: Josh Bunting on 04-21-2023 Cholesterol.total/Genevieve sterol in HDL [Mass ratio] 4.9 {ratio} <5.0 [facility] Sodium [Moles/volume] in Ser um or PlasmaOrdered By: Josh Bunting on 04-21-2023 Sodium [Moles/Vol] 136 mmol/L 136-145 [facility] Triglyceride [Mass/volume] i n Serum or PlasmaOrdered By: Josh Bunting on 04-21-2023 Triglyceride [Mass/Vol] 162 mg/dL 0-149 [facility] Comment on above: TRIG ATP III CLASSIF ICATIONTRIG less than 150 mg/dL NormalTRIG 150-199 mg/dL Borderline highTRIG 200-500 mg/dL High TRIG greater than 500 mg/dL Very highStandard traceable to the Center for Disease Conrtrol and Prevention (CDC) test method. Urea nitrogen [Mass/volume] in Serum or PlasmaOrdered By: Josh Bunting on 04-21-2023 Urea nitrogen [Mass/Vol] 25 mg/dL 7-25 [facility] WBC Auto (Bld) [#/Vol]Ordere d By: Josh Bunting on 04-21-2023 WBC (Bld) [#/Vol] 7.1 10*3/uL 4.1-10.5 [facility] CNPKristan 04-10-2023 CNPN Telephone ([facility]) NIYAH MEIER ([id number]) 1960 M Date Time Provider Department 04/10/23 DONNY PERALTA MOOSE During your visit today, we recorded the [...] Encounter Status:Closed by KIMBERLI COUCH on 04/15/23 [facility] CNOVon 03-26-2023 CNOV Office Visit ([facility] ) NIYAH MEIER ([id number]) 1960 M Date Time Provider Department 03/26/23 11:20 AM DONNY PERALTA [facility] During your visit today, we recorded the following information about you: Pulse Respiration 88/minute 17/minute Donny Peralta APRN.NETWORK SUPPORT MANAGER 03/26/2023 4:15 PM Signed Mr. Meier is [...] 2 to 3 weeks time. Donny Peralta APRN.NETWORK SUPPORT MANAGER CC: Josh Melvin DO Referring Provider: JOSH MELVIN [[id number]] Allergies As of Date: 03/26/2023 (No Known Allergies) Date Reviewed: 03/26/2023 Reviewed by: Olive Hui LPN - Fully Assessed Reason for Visit: Mouth lesion on left side [Other] Primary Visit Diagnosis:Laryngeal candidiasis [B37.89] Other Visit Diagnoses:Glossitis [K14.0] Oral candidiasis [B37.0] Hoarseness of voice [R49.0] History of alcohol abuse [F10.11] Order(s):COMP METABOLIC PANEL [SQCMP] Order #: [id number] FUTURE clotrimazole (MYCELEX) 10 mg trocheUse 1 Bud as instructed four times daily for 14 days.Disp: 56 tabletRfl: 0 Prescriptions as of 03/26/2023 - busPIRone HCl 30 mg tablet TAKE 1 TABLET BY MOUTH THREE TIMES DAILY FOR ANXIETY - celec (more content not included)... Normal [facility] Comprehensive metabolic 2000 panelon 03-26-2023 Albumin [Mass/Vol] 4.4 g/dL Normal 3.9-4.9 [facility] Comment on above: Order Comment: Speci men Type: BLOOD SPECIMEN Ordering Facility: [facility] Address: [address] [place] [address] Performed By: #### 2 4323-8 #### [facility] CLIA [id number] [address] [place] [address] [place] ALP [Catalytic activity/Vol] 90 U/L Normal 38-113 [facility] Comment on above: Order Comment: Speci men Type: BLOOD SPECIMEN Ordering Facility: [facility] Address: [address] [place] [address] Performed By: #### 2 4323-8 #### [facility] CLIA [id number] [address] [place] [address] [place] ALT [Catalytic activity/Vol] 22 U/L Normal 10-54 [facility] Comment on above: Order Comment: Speci men Type: BLOOD SPECIMEN Ordering Facility: [facility] Address: [address] [place] [address] Performed By: #### 2 4323-8 #### [facility] CLIA [id number] [address] [place] [address] [place] Anion gap [Moles/Vol] 11 mmol/L Normal 9-18 [facility] Comment on above: Order Comment: Speci men Type: BLOOD SPECIMEN Ordering Facility: [facility] Address: [address] [place] [address] Performed By: #### 2 4323-8 #### [facility] CLIA [id number] [address] [place] [address] [place] AST [Catalytic activity/Vol] 23 U/L Normal 14-40 [facility] Comment on above: Order Comment: Speci men Type: BLOOD SPECIMEN Ordering Facility: [facility] Address: [address] [place] [address] Performed By: #### 2 4323-8 #### [facility] CLIA [id number] [address] [place] [address] [place] Bilirubin [Mass/Vol] 0.4 mg/dL Normal 0.2-1.3 [facility] Comment on above: Order Comment: Speci men Type: BLOOD SPECIMEN Ordering Facility: [facility] Address: [address] [place], [place] [address] Performed By: #### 2 4323-8 #### [facility] CLIA [id number] [address] [place] [address] [place] Calcium [Mass/Vol] 9.6 mg/dL Normal 8.5-10.2 [facility] Comment on above: Order Comment: Speci men Type: BLOOD SPECIMEN Ordering Facility: [facility] Address: [address] [place] [address] Performed By: #### 2 4323-8 #### [facility] CLIA [id number] [address] [place] [id number] [place] Chloride [Moles/Vol] 97 mmol/L Normal 97-105 [facility] Comment on above: Order Comment: Speci men Type: BLOOD SPECIMEN Ordering Facility: [facility] Address: [address] [place] [address] Performed By: #### 2 4323-8 #### [facility] CLIA [id number] [address] [place] [address] [place] CO2 [Moles/Vol] 27 mmol/L Normal 22-30 [facility] Comment on above: Order Comment: Speci men Type: BLOOD SPECIMEN Ordering Facility: [facility] Address: [address] [place] [address] Performed By: #### 2 4323-8 #### [facility] CLIA [id number] [address] [place] [address] [place] [facility] Creatinine [Mass/Vol] 0.99 mg/dL Normal 0.73-1.22 [facility] Comment on above: Order Comment: Speci men Type: BLOOD SPECIMEN Ordering Facility: [facility] Address: [address] [place] [address] Performed By: #### 2 4323-8 #### [facility] CLIA [id number] [address] [place] [address] [place] ESTIMATED GLOMERULAR FILTRATION RATE 85 mL/min/1.73m??? Normal >=60 [facility] Comment on above: Order Comment: Speci men Type: BLOOD SPECIMEN Ordering Facility: [facility] Address: [address] [place] [address] Result Comment: Neha mated Glomerular Filtration Rate [...] GFR. Performed By: #### 2 4323-8 #### [facility] CLIA [id number] [address] [place] [address] [place] Glucose [Mass/Vol] 85 mg/dL Normal 74-99 [facility] Comment on above: Order Comment: Speci men Type: BLOOD SPECIMEN Ordering Facility: [facility] Address: [address] [place] [address] Result Comment: The [place] [employer] (ADA) provides guidance for cutoff [...] Standards of Medical Care in Diabetes 2016, [place] [employer]. Diabetes Care. 2016.39(Suppl 1). Performed By: #### 2 4323-8 #### [facility] CLIA [id number] [address] [place] [address] [place] Potassium [Moles/Vol] 4.5 mmol/L Normal 3.7-5.1 [facility] Comment on above: Order Comment: Ilana guillen Type: BLOOD SPECIMEN Ordering Facility: [facility] Address: [address] [place] [address] Performed By: #### 2 4323-8 #### [facility] CLIA [id number] [address] [place] [address] [place] Protein [Mass/Vol] 7.0 g/dL Normal 6.3-8.0 [facility] Comment on above: Order Comment: Demetriusi men Type: BLOOD SPECIMEN Ordering Facility: [facility] Address: [address] [place] [address] Performed By: #### 2 4323-8 #### [facility] CLIA [id number] [address] [place] Sodium [Moles/Vol] 135 mmol/L Low 136-144 [facility] Comment on above: Order Comment: Speci men Type: BLOOD SPECIMEN Ordering Facility: [facility] Address: [place] [address] Performed By: #### 2 4323-8 #### [facility] CLIA [id number] [address] [place] [address] [place] Urea nitrogen [Mass/Vol] 25 mg/dL High 9-24 [facility] Comment on above: Order Comment: Speci men Type: BLOOD SPECIMEN Ordering Facility: [facility] Address: [place] [address] Performed By: #### 2 4323-8 #### [facility] CLIA [id number] [address] [place] [address] [place] XR lumbar spine 2-3V*on 01-25 XR lumbar spine 2-3V* [facility] [place] [address] XRay Report Signed Patient: Koko Meier MR#: [id number] : 1960 Acct:[id number] Age/Sex: 62 / M ADM Date: 02/10/23 Loc: Room: Type: [facility] Attending Dr: Errol Humphrey MD Copies to: Errol Humphrey MD Ordering Provider: Errol Humphrey MD Date of Service: 02/10/23 XR/XR cervical spine 2V: M96.1 ([id number]) XR/XR lumbar spine 2-3V*: M96.1 CLINICAL DATA: [...] Monika Eastman M.D.02/10/2023 12:29 PM Dictation Location: [place] [address] Transcribed By: [facility] 02/10/23 1229 Dictated By: Monika Eastman MD 02/10/23 1220 Signed By: 02/10/23 1229 [facility] CT chest wo [facility] 12-31-2022 CT chest wo [facility] [place] [address] CT Scan Report Signed Patient: Koko Meier MR#: [id number] : 1960 Acct:[id number] Age/Sex: 62 / M ADM Date: 12/31/22 Loc: [facility] Room: Type: [facility] Attending Dr: Mariel Mcgraw MD Copies to: [...] benign process is favored. Impression dictated by: Scooby Borrego Jr., DBonitaOBonita12/31/2022 12:47 PM Dictation Location: [place] [address] Transcribed By: [facility] 12/31/22 1247 Dictated By: Scooby Borrego Jr, DO 12/31/22 1243 Signed By: 12/31/22 1247 Normal [facility] Body fluid albumin measureme nt (mass/volume)Ordered By: Josh Melvin on 09-30-2022 Albumin (Body fld) [Mass/Vol] 3.6 g/dL 3.2-5.5 [facility] Cholesterol [Mass/volume] in Serum or PlasmaOrdered By: Josh Melvin on 09-30-2022 Cholesterol [Mass/Vol] 154 mg/dL 140-200 [facility] Comment on above: Chol less than 200 m g/dl low riskChol 201-239 mg/dl borderline riskChol 240 mg/dl and greater high risk Cholesterol in LDL Calc [Mas s/Vol]Ordered By: Josh Melvin on 09-30-2022 Cholesterol in LDL [Mass/Vol] 93 mg/dL 0-100 [facility] Comment on above: LDL ATP III CLASSIFI CATIONLDL less than 100 mg/dL OptimalLDL 100-129 mg/dL Near or above optimalLDL 130-159 mg/dL Borderline highLDL 160-189 mg/dL HighLDL greater than 189 mg/dL Very high Cholesterol in VLDL Calc [Ma ss/Vol]Ordered By: Josh Melvin on 09-30-2022 Cholesterol in VLDL [Mass/Vol] 17 mg/dL [facility] Creatinine and Glomerular fi ltration rate.predicted panel (S/P/Bld)Ordered By: Josh Melvin on 09-30-2022 Creatinine [Mass/Vol] 0.89 mg/dL 0.64-1.27 [facility] Estimated glomerular filtrat ion rate (GFR) non- AmericanOrdered By: Josh Melvin on 09-30-2022 GFR/1.73 sq M.predicted among non-blacks MDRD (S/P/Bld) [Vol rate/Area] > 60 mL/Min [facility] Globulin Calc (S) [Mass/Vol] Ordered By: Josh Melvin on 09-30-2022 Globulin (S) [Mass/Vol] 3.1 g/dL [facility] Glucose mean value [Mass/vol ume] in Blood Estimated from glycated hemoglobinOrdered By: Josh Melvin on 09-30-2022 Average glucose Estimated from glycated hemoglobin (Bld) [Mass/Vol] 180 mg/dL [facility] Hemoglobin A1c percentageOrd ered By: Josh Melvin on 09-30-2022 HbA1c (Bld) [Mass fraction] 7.9 % 4.3-5.6 [facility] Comment on above: Increased risk for d iabetes: 5.7 - 6.4diabetes: >6.4glycemic control for adults with diabetes: <7.0 No Panel InformationOrdered By: Josh Melvin on 09-30-2022 Estimated GFR () > 60 mL/Min [facility] Comment on above: GFR estimated refere nce range: According to KDOQI guidelines, <60 ml/min/1.73m2 is sufficient to diagnose a patient with chronic kidney disease. Pharmacy Creatinine Clearance (Chem N/A [facility] Protein [Mass/volume] in Ser um or PlasmaOrdered By: Josh Melvin on 09-30-2022 Protein [Mass/Vol] 6.7 g/dL 6.1-7.9 [facility] Serum or plasma alanine cullen otransferase measurement without P-5'-P (enzymatic activiOrdered By: Josh Melvin on 09-30-2022 ALT No additional P-5'-P [Catalytic activity/Vol] 19 U/L 10-60 [facility] Serum or plasma albumin/glob ulin mass ratioOrdered By: Joshana Melvin on 09-30-2022 Albumin/Globulin [Mass ratio] 1.2 {ratio} [facility] Serum or plasma alkaline juliette sphatase measurement (enzymatic activity/volume)Ordered By: Josh Melvin on 09-30-2022 ALP [Catalytic activity/Vol] 78 U/L 32-92 [facility] Serum or plasma anion gap de terminationOrdered By: Josh Melvin on 09-30-2022 Anion gap [Moles/Vol] 19.0 mmol/L 6.0-15.0 [facility] Serum or plasma aspartate am inotransferase measurement (enzymatic activity/volume)Ordered By: Josh Melvin on 09-30-2022 AST [Catalytic activity/Vol] 17 U/L 10-42 [facility] Serum or plasma calcium ezra urement (mass/volume)Ordered By: Josh Melvin on 09-30-2022 Calcium [Mass/Vol] 9.6 mg/dL 8.2-10.2 [facility] Serum or plasma chloride brenda surement (moles/volume)Ordered By: [facility] on 09-30-2022 Chloride [Moles/Vol] 94 mmol/L 95-114 [facility] Serum or plasma glucose ezra urement (mass/volume)Ordered By: Josh Melvin on 09-30-2022 Glucose [Mass/Vol] 149 mg/dL 70-100 [facility] Comment on above: ADA recommended refe rence rangeRandom Glucose Reference Range is dependent on time and content of last meal. Glucose of more than 200 mg/dL in a nonstressed, ambulatory subject supports the diagnosis of Diabetes Mellitus. Serum or plasma high density lipoprotein (HDL) cholesterol measurementOrdered By: Josh Melvin on 09-30-2022 Cholesterol in HDL [Mass/Vol] 44 mg/dL 29- [facility] Comment on above: HDL CHOL ATP-III CLA SSIFICATION Cardiovascular RiskHDL > or equal to 60 mg/dL LOWHDL < 40 mg/dL HIGH Serum or plasma potassium me asurement (moles/volume)Ordered By: Josh Melvin on 09-30-2022 Potassium [Moles/Vol] 4.9 mmol/L 3.5-5.1 [facility] Serum or plasma sodium measu rement (moles/volume)Ordered By: Josh Melvin on 09-30-2022 Sodium [Moles/Vol] 137 mmol/L 136-146 [facility] Serum or plasma total biliru bin measurement (mass/volume)Ordered By: Josh Melvin on 09-30-2022 Bilirubin [Mass/Vol] 0.7 mg/dL 0.3-1.2 [facility] Serum or plasma total carbon dioxide measurement (moles/volume)Ordered By: Josh Melvin on 09-30-2022 CO2 [Moles/Vol] 28.9 mmol/L 22.0-30.0 [facility] Serum or plasma total choles terol/high density lipoprotein (HDL) cholesterol mass ratOrdered By: Josh Melvin on 09-30-2022 Cholesterol.total/Genevieve sterol in HDL [Mass ratio] 3.5 {ratio} <5.0 [facility] Serum or plasma urea nitroge n measurement (mass/volume)Ordered By: Josh Melvin on 09-30-2022 Urea nitrogen [Mass/Vol] 19 mg/dL 9-23 [facility] Triglyceride [Mass/volume] i n Serum or PlasmaOrdered By: Josh Melvin on 09-30-2022 Triglyceride [Mass/Vol] 86 mg/dL 35-149 [facility] Comment on above: TRIG ATP III CLASSIF ICATIONTRIG less than 150 mg/dL NormalTRIG 150-199 mg/dL Borderline highTRIG 200-500 mg/dL High TRIG greater than 500 mg/dL Very highStandard traceable to the Center for Disease Conrtrol and Prevention (CDC) test method. IntraOperative Documentson 0 04-25-2021 IntraOperative Documents [id number] .[id number]:127 Normal [facility] Main [place] Intraoperative Recor don 04-25-2021 Main OR Intraoperative Record IntraOp Document Type FT Summary Primary Physician: Kwame Yang DO Finalized Date/Time: 04/25/21 16:46:35 Pt. Name: KOKO MEIER Asad Seo/Sex: 1960 Male Med Rec #: [id number] Physician: Kwame Yang DO Financial #: [id number] Pt. Type: I Room/Bed: [place] [address] Admit/Disch: 04/18/21 08:03:48 - 04/19/21 13:50:00 Institution: [...] E Role Performed Anesthesiologist Surgeon - Primary PATHOLOGY LAB TECHNICIAN/[employer] Time In 04/18/21 10:01:00 04/18/21 10:01:00 04/18/21 10:01:00 Time Out 04/18/21 12:40:00 04/18/21 12:40:00 04/18/21 12:40:00 Procedure SHOULDER TOTAL SHOULDER TOTAL SHOULDER TOTAL ARTHROPLASTY(Right) ARTHROPLASTY(Right) ARTHROPLASTY(Right) Comments supervised by Dr. Linton Last Modified By: Nandini Villaseñor RN, RN, Nandini Villaseñor RN, Nandini Chavarria 04/18/21 12:41:34 04/18/21 12:41:34 04/18/21 12:41:34 Entry 4 Entry 5 Entry 6 Case Attendee Kasi KOO, Nandini Goldberg CST, Christiano Ballard CST, FA, Mensjeny Sanches Role Performed Dive Master - Primary Scrub - Primary Staff - Other Time In 04/18/21 10:01:00 04/18/21 10:01:00 04/18/21 10:01:00 Time Out 04/18/21 12:40:00 04/18/21 12:08:00 04/18/21 12:40:00 Procedure SHOULDER TOTAL SHOULDER TOTAL SHOULDER TOTAL ARTHROPLASTY(Right) ARTHROPLASTY(Right) ARTHROPLASTY(Right) Comments Last Modified By: Kasi KOO, Nandini Villaseñor RN, Nandini Desouza RN 04/18/21 12:41:34 04/18/21 12:41:34 04/18/21 12:41:34 Entry 7 Case Attendee Alvino Nagel CST Role Performed Staff - Other Time In 04/18/21 10:15:00 Time Out 04/18/21 11:55:00 Procedure SHOULDER TOTAL ARTHROPLASTY(Right) Comments Last Modified By: Nandini Villaseñor RN 04/18/21 12:41:34 General Comments: Arthrex repasad Aleman in room Perioperative Protocols FT Pre-Care [...] Yes Time Out Kwame Yang DO, Given Jimmy Head CRNA, Bishop PATHOLOGY LAB TECHNICIAN, Kasi Maciel RN, Yusuf Garner PATHOLOGY LAB TECHNICIAN, Elio Burnham PATHOLOGY LAB TECHNICIAN, FA, Mensa K Time Out Complete 04/18/21 10:43:00 Outcomes [...] and tissue Entry 1 Skin Integrity Intact, [place], Warm, and Skin Abnormality No Dry (more content not included)... Normal [facility] Main OR Preoperative Recordo n 04-25-2021 Main OR Preoperative Record PreOp Document Type FT Summary Primary Physician: Kwame Yang DO Finalized Date/Time: 04/25/21 16:43:54 Pt. Name: KOKO MEIER/Sex: 1960 Male Med Rec #: [id number] Physician: Kwame Yang DO Financial #: [id number] Pt. Type: I Room/Bed: 06/01 Admit/Disch: 04/18/21 08:03:48 - 04/19/21 13:50:00 Institution: [...] By: Nandini Villaseñor RN 04/25/21 16:43 Normal [facility] Coding Summary.on 04-24-2021 Coding Summary. CD:[id number] G h0bWw+PGhlYWQ+KN8VPFH rY64qkUUlxZ9RT3pIHX2J WDNTBPYRYF5KIK6ioAZ6S YhaA1SirbXc EdgbfYHtZO79HKg3NHA6z PcpINqahA7ftKStD0k0Mk YrTT78mF13JCmsYHRaSlI 3LjZpbjsgbWFy N1osPoBcnEAgNcy+PHRhY mxlIHdpZHRoPScxMDAlJy EwgZkyGZ1gFp3iEFGpUPW vbGxhcHNlOiBj b5rnADOnMRugGZ2nsPzpQ 6EbiAY2EOIpb5v1Km16uF I+BLReXEC3kHgrTLbfx66 7ElMsz4wlTRR2 fBUbUTmjLOM1J63nm1N5J XHmQPSpNSY8qGI7rY3edC zjdqlvN7NenTSfBrN3KZQ 9cYQgaR1khMtv okyaaB0fJir+B12YFT8GS WMEYU5LRyh4W6NgZqvpxR I+NR48BTFiBM83tLIcmGF gt3ijfAu0LyBq QQEpMRW5pEynOExnu8SjX ITxO30vvNZjo7S8WODviJ uogFDdLnMltLE8iX4dCCo oyxskt3xryain Oyygu3osbb50rC96P94uG YcrHTNjATT5WVZuYGSxgI dewk0irJ7bZr9+BFfkg7l ct3rqfEu4IjVz PYJzhjRanAxzNMD5t0RfI m90A8HofRslp1LzHee8ib 11iYJmm9R9eLP5VMkrENA jgY2oZZnxBrH0 IVZjCoHflC16yWRjVTwwY o7jwRufpGijXM8eTSAezi inPXTzuH4aZOGjrLWpiJj wIL5sYYDwrwjd o505XaImNKI7QCNxkJLsF 5RyfR8gPoVlGGFlCTZuT1 KseIVuRGenA212BIvjNcU 0EJTbzhZzB8Pt ZSIkwJytFsZ4l4F8Iy8Dr 7ZhntweIQV5XUbyNHH8Yn M0BuGyDjM4N8VvFce0VYI kqEaoPJ8zM7Dg TOHwcaxjxyddcKP4HASaV UPosP98kYBxGBrgUf3am2 H5z045XCAxWITlfD91Xc8 udDogMTBwdCBU yD7jhpmsa5fijwzoWbPwZ CWtVRw0TNi2FDQwkDntVf TsHVL4WvS9NQO4fDVqhO3 xnFlwkvatjG4a Oyc+I38qrL7hCKD3WTP3n qhfGSTilnOnTJ68RZ94M1 RyPjwvdGFibGU+PGRpdiB ylPrxDQ1kFpRu t2oqc5AqZLfyX8AtLYVyO EcyZph5XDHcZMI0lZU0nI 2yXIIcSVjol9Y5pXE6I2S sqwNywl3tc3fq NACqKRhrG06ohHAbw0Y4Z OTmoOE1IFDaaUstLoSurS 93Oyc+QSIpzZvhe4MoGvm vn8tdc3yneGp0 UrSmYUAtugOyiOqiVZD8b 1PuAq03N67oYPfuFSGqAO AeFUAlSITwtCmthp9jjU0 wIi8+PGNvbCB3 rED5rT3iLSTnRfQ8HBieC 895SbOkwLDsMrgfc5lav6 fdaXk1GgVjTABixrNolLl gWER5w0RqEz18 H07nHKjaFBAjKGSrMVWtV UXivLzatz9qtP0mNd2+PC 6ah3gzlo76cC17aWV+PHR xRUN7aCalDGis BWFvnB7jDWtdLpR3JCFoU oFggZ62yXMwMHsgBh6axR jjeFouDP9dNFEaxiyiz17 7NpUhm2ulLXRz kCOhQJclLQB5L86nr7D2D VEnFEOqDHU0iJI5mC9fjP lnbjogbGVmdDsgdmVydGl bZEonLBltE017 IHRvcDsnPlBhdGllbnQgT iMtOFd8D2BpHba3QPLwoF iwAY0ifXOmPNvzYo1xiAo emEujCJ1pQBBc yquyh598AuCqt6zoLXWsy NBnXLgwJQG0C15px9J9TD PkOTWqFKE6mPI5mA8emOz nbjogbGVmdDsg jeTgnKulMGnrKRaeB494H HRvcDsnPkJpcnRoIERhdG Z5XG37DU78dDVyh0K3qJL 3R7SmHFQgbkvi dnramIM6WNJnQNGppZ05M r5sjYzbRv0jCRPpODI8VO VegBTzF0XfaW6oMxGdRIZ jHFYbV1YhhTVh KJljB512CGplLbE4NMBvd bHbU6EqSUKdvVsmUyY2m6 J5Uh4HL2K7NH27CQ04gGP tq2H6rYQ3E5Hq WCNvbojnhmcviCZ3SJZwJ HFgrE71Vd6ypTivMz8bCZ UgDKN8GMNpcBMrR7BisL4 yOiAjMDAwMDAw H7KovKHeGUlnU411YRhwD tA7LADuefDdK4FqZUGjbJ zaDaM1n0O6Me2OXWg8QH5 7XI05hNTgx5T0 hWV8F6XfZUBsaovsrexbo KD5IKKmFNIahT67Mc7jjQ fyPf8gZCMoMBL3TURovYI uE5LckL8gOoJr DKXiAGHjJ5EakUEtLZlwP 429VQlhYgT0MOQhnmCcZ0 BuEDLasLzmVmQ1w6L6Rf1 EQCApKT87DUJ5 uGK9LE36CQ09G0JgGjibb GFibGU+PHRhYmxlIHdpZH RoPScxMDAlJyBzdHlsZT0 tWe0kKYEoBRJj lDmhlSFzZcGno8kbBSApF IpfOW2itDpvS1QufEJ1QZ Ywz2z3Ip04P07wK4AywGL +GUHumKB6zVO0 eG7aSoKiOwU9YUxgE595J vKldWPgQhtqh5vum1cywV u3GeK7RPQrtcVksRtsTGU 3o3MdUg44Z76w IHdpZHRoPSIxNSUiIHZhb Xljsl8ddH9yHz9+PGNvbC F6xOG3fO1cWcPrGaB3OIo vP799QzAylRGi Gmolk1ktw5glnAe0GsRlR PIafiQdcXzsKUI7c4BpGb 51M8CunCyie6XmEji3ku7 6yAXae8V7lRU9 Z7DrEYNoumoogTZspFqeZ X5vBZZkgnsuEGNsxE6jDM HkG1a3SiEhKnR7BMzlU2O ivtC4SQGizJSe KGxcHSQ1A97li6K4NWUxO QInDMV5bEI4mJ1mnJjnzn ogbGVmdDsgdmVydGljYWw qSAtcX040ZPNu eQduOUVwlC1fMZBqxXPzj QxrYI0tEQTubigqKtQSUO 5ERVIsIEpFRkZSRVkgUzw vdGQ+PHRkIHN0 fRnuXZgeFZDtaW4jKVBrG 8i8WeAoFkH0XDviD8XdPU CfwufuPt86uE1oNiDtZjK 5VTyrZ7IqrsM3 HEZfxMNdEUruFTJ0X01zu 4C8FOYzIYIyEXX8vAT9lF 1hbGlnbjogbGVmdDsgdmV ydGljYWwtYWxp G241TNFxnWszQxLyMgPiC wT9UPv6V2LmYil1ADIzpJ smZJ2stFNsTVboIv2ykNm chQfgEE4hSCWe ikvcENDjsF4bJUMqpWCyj FzdVI8pZAMfgekbq292Ct FjQCR3OINhjTRnK5LizD5 yOiAjMDAwMDAw D1XisZMrHCcmO213YFhaO oK0VPVuqtNkQ8KzPACpwJ qnWvS4d6B4Bx77BvFUDUY yczwvdGQ+PHRk OKY0qMpsLCurXAQnzW5iZ YKfO5e7ZaMxQeW0PBmiP2 DvUHUjqxvrNy32xP8fRcL bCyA1DUfzM4Nc mqP4EXEcpNIkPZeeCRN2P 93gu0I7TPLtMIIbYGE5wH G5yI2bwDlqewariFMjzDy gdmVydGljYWwt PEnaE183AOIauTwaBc8tb DV2X8PsZzy8FPGqyXfpYV 5ppFQqYPtsPq1meTessXa sEQ7yTDOragrl YSKiyS3pAMBwePUycOhxA E9tSMSgftsil309XzOnOM Z2HECtxBGlI9DoaT6pJpZ oOXUhAOAwT9Rd vOPwPXogL733GTfgCaC6N GYfjeKyQ3BxDULvdQonEk S3s6G2Mv5HkdOuaHzdxpX 2Y6YrMwvcnVC+ RE95KCXgRO78aRUugOYgo 1cgqKf8MkHwLDIqDGI9nC ppCFmga5WwGFQtQ75fiTZ np5F5WUWztZlv yAUzKjOiuMS3sJ2uYUuhy kbca8gshiecSwxyu9mbyg 00jW89P05jFDdnIWKsRDH zMCUiIHZhbGln ri2rxK6fRh8+RZAajKH4g KH1zB4mXeZvOkA3YMegN3 63LbZmoOXeZbnfh6iuu5d klKh6TeVgFHSw ouMptGraCXR0i7PoBg76F 29sIHdpZHRoPSIyMCUiIH EitAspte5cgM2oTu7+PC9 yo6yopc62zC42 dHI+TLTxQBP4sMfdDKrxN LEsyU5uPFxfXxI1DCSbSv NwdK47nARwMUmrUr4sfAm mqLhyFX1wUARj pyzwf639WhRxb7myONEgs VYyEAazKXE9M57ug4N4BU JxWFLuJWR5jUA1gZ2bgRp nbjogbGVmdDsg feZriGzgVFtyWYpxM309L NBggHquBsYziRRoX0pddj FFWL5rDvfxwRN+PHRkIHN 0eWxlPSdwYWRk dW5vXRMeH3c8MmHuVkK3I QtoV9NtboT9ZPUteWRgWH PnkMXNmU8vwvqmb1wwqjo gIzAwMDAwMDt0 NFy1MDKuzMkcHuOyERM7L vR2MOV1hSFbeI5baYmtlr hfmJ4iBqx+RklOOjwvdGQ +ZOIlVLG7zAyv YWslRIMcnV0vORWzP5z8P jTfWbA5ZXleX4WvntL9VX EzhLTnTUSxwBXDnR6ejhq ui8hgwetvYuBb TWHyQKb0GFl4MCMpgCsiW uXsVJU0CfF9DGB0eNKhcU 8haFsuyzoqxA1yBhw+TVJ OOjwvdGQ+PHRk ZKR9aNoiFCsiNDLirI2zW TOwR1e2QhKsQlL6GHfkW3 WpkhH4ZCGkpPEqTQMwpUR TfJ9wugvjw5dy iwfqVkQrIFFsNRg1CGv2G FUkcZdhDuHnSGM7LrC3VE L2aIJfrT5nqFibhjlfgB8 wOyc+YDD8CSJ6 IJ76ZQ92D9MbAojqjZOgy +PHRhYmxlIHdpZHRoPS fqJAPrGpRyoZmxUC5tJb6 yZGVyLWNvbGxh cHNl (more content not included)... Normal [facility] Operative Reporton Operative Report Patient: [...] preparations for the proposed operation continued.. Normal [facility] Comment on above: Result Comment: [...] list: All Problems Arthritis / SNOMED CT 8985440 / Confirmed Diabetes mellitus / SNOMED CT 887452247 / Confirmed High cholesterol / SNOMED CT 95971587 / Confirmed High blood pressure / SNOMED CT 1604460749 / Confirmed Physical Examination Vital Signs 04/18/2021 [...] br/min br/min (more content not included)... Normal [facility] Comment on above: Result Comment: [...] list: All Problems Arthritis / SNOMED CT 4707467 / Confirmed Diabetes mellitus / SNOMED CT 597832721 / Confirmed High cholesterol / SNOMED CT 02671544 / Confirmed High blood pressure / SNOMED CT 2160315815 / Confirmed Histories Past Medical History: No active or resolved past medical history items have been selected or recorded. Family History: Hypertension Father Diabetes mellitus type 2 Mother Brother Metastatic cancer Father Procedure history: Spine orthopedic surgery, lumbar (3125379507). Spine orthopedic surgery, cervical ([id number]). Arthroscopic repair of rotator cuff ([id number]). Carpal tunnel release (405950801). Appendectomy (418993079). Partial resection of colon (72969749). Social History Social & Psychosocial Habits Alcohol [...] results Radiology results ECG interpretation Condition Plan [employer] ([employer]A) physical status classification: Class III. Anesthetic Preoperative Plan Anesthesia: General. , Regional Interscalene Block. Anesthetic plan, risks, benefits, and alternatives discussed with the patient and/or family. Risks discussed: nausea, vomiting, headache, sore throat, dental injury, serious complications. Patient verbalized understanding. Communication: face to face with (patient 5 minutes, Pt educated on the importance of smoking cessation.). Normal [facility] Comment on above: Result Comment: Elec tronically Signed By: Christiano Linton Jr, DO\Date and Time Signed: 04/23/21 08:08 EDT Auto Diffon 04-19-2021 Basophils/100 WBC (Bld) 0.4 % Normal 0.0-2.0 F [facility] Comment on above: Order Comment: Order Added by Discern Expert. Performed By: #### 1 [id number] #### [facility] [address] [place] [address] Basophils/Leukocytes Auto (Bld) [Pure # fraction] 0.0 E9/L Normal 0.0-0.2 [facility] Comment on above: Order Comment: Order Added by Discern Expert. Performed By: #### 1 [id number] #### [facility] [address] [place] [address] Eosinophils/100 WBC (Bld) 0.1 % Normal 0.0-8.0 [facility] Comment on above: Order Comment: Order Added by Discern Expert. Performed By: #### 1 [id number] #### [facility] [address] [place] [address] Eosinophils/Leukocytes Auto (Bld) [Pure # fraction] 0.0 E9/L Normal 0.0-0.5 [facility] Comment on above: Order Comment: Order Added by Discern Expert. Performed By: #### 1 [id number] #### [facility] [address] [place] [address]30 Lymphocytes/100 WBC (Bld) 14.0 % Normal 14.0-50.0 [facility] Comment on above: Order Comment: Order Added by Discern Expert. Performed By: #### 1 [id number] #### [facility] [address] [place] [id number] Lymphocytes/Leukocytes Auto (Bld) [Pure # fraction] 1.7 E9/L Normal 1.0-4.0 [facility] Comment on above: Order Comment: Order Added by Discern Expert. Performed By: #### 1 [id number] #### [facility] [address] [place] [address] Monocytes/100 WBC (Bld) 5.9 % Normal 4.0-14.0 [facility] Comment on above: Order Comment: Order Added by Discern Expert. Performed By: #### 1 [id number] #### [facility] [address] [place] [address] Monocytes/Leukocytes Auto (Bld) [Pure # fraction] 0.7 E9/L Normal 0.2-1.0 [facility] Comment on above: Order Comment: Order Added by Discern Expert. Performed By: #### 1 [id number] #### [facility] [address] [place] [address] Neutrophils/100 WBC (Bld) 79.6 % High 36.0-75.0 [facility] Comment on above: Order Comment: Order Added by Discern Expert. Performed By: #### 1 [id number] #### [facility] [address] [place] [address] Neutrophils/Leukocytes Auto (Bld) [Pure # fraction] 9.8 E9/L High 2.0-7.5 [facility] Comment on above: Order Comment: Order Added by Discern Expert. Performed By: #### 1 [id number] #### [facility] [address] [place] [address] BUNon 04-19-2021 Urea nitrogen [Mass/Vol] 19 mg/dL Normal 5-21 [facility] Comment on above: Performed By: #### 1 [id number] #### [facility] [address] [place] [address] CBC w/ Auto Diffon Erythrocyte distribution width (RBC) [Ratio] 13.1 % Normal 10.9-14.2 [facility] Comment on above: Performed By: #### 1 [id number] #### [facility] [address] [place] [address] Hematocrit (Bld) [Volume fraction] 42.1 % Normal 37.7-49.0 [facility] Comment on above: Performed By: #### 1 [id number] #### [facility] [address] [place] [address] Hemoglobin (Bld) [Mass/Vol] 14.0 g/dL Normal 13.5-17.5 [facility] Comment on above: Performed By: #### 1 [id number] #### [facility] [address] [place] [address] MCH (RBC) [Entitic mass] 31.5 pg Normal 27.0-34.0 [facility] Comment on above: Performed By: #### 1 [id number] #### [facility] [address] [place] [address] MCHC (RBC) [Mass/Vol] 33.3 g/dL Normal 31.4-36.0 [facility] Comment on above: Performed By: #### 1 [id number] #### [facility] [address] [place] [address] MCV (RBC) [Entitic vol] 94.4 fL Normal 80.0-100.0 [facility] Comment on above: Performed By: #### 1 [id number] #### [facility] [address] [place] [address] Platelet mean volume (Bld) [Entitic vol] 9.5 fL Normal 6.4-10.8 [facility] Comment on above: Performed By: #### 1 [id number] #### [facility] [address] [place] [address] Platelets (Bld) [#/Vol] 177.0 E9/L Normal 150.0-500.0 [facility] Comment on above: Performed By: #### 1 [id number] #### [facility] [address] [place] [address] RBC (Bld) [#/Vol] 4.5 E12/L Normal 4.3-5.9 [facility] Comment on above: Performed By: #### 1 [id number] #### [facility] [address] [place] [address] WBC corrected for nucl RBC Auto (Bld) [#/Vol] 12.3 E9/L High 4.0-11.0 [facility] Comment on above: Performed By: #### 1 [id number] #### [facility] [address] [place] [address] Capillary Glucose POCon 03-28 Glucose [Mass/Vol] 226 mg/dL High 55-99 [facility] Comment on above: Result Comment: Joanna daly RN/ Performed By: #### 2 [id number] #### [facility] [address] [place] [address] Glucose [Mass/Vol] 271 mg/dL High 55-99 [facility] Comment on above: Result Comment: Joanna daly RN/ Performed By: #### 2 [id number] ####[facility] [address] [place] [address] Consent for Anesthesiaon Consent for Anesthesia [id number]#1 .00CD:127 Normal [facility] Creatinineon 04-19-2021 Creatinine [Mass/Vol] 0.7 mg/dL Normal 0.5-1.3 [facility] Comment on above: Performed By: #### 1 [id number] #### [facility] [address] [place] [address] Discharge Instructionson Discharge Instructions [id number]# 1.00CD:127 Normal [facility] Inpatient Clinical Summaryon 04-19-2021 Inpatient Clinical Summary [address] [address] Clinical Summary Person Information: Name: KOKO MEIER Age: 60 Years : 1960 Sex: Male PCP: JOSH MELVIN DO Marital Status: Phone: [phone] Race: White Ethnicity: Non- or Language: Telugu Visit Id: Visit Reason: OA RIGHT SHOULDER Speciality: Acuity: Enc Type: Inpatient Med Service: Surgery Arrival: 04/18/2021 08:03:48 Discharge: Dispo Type: Address: [address] [place] [id number] Provider Notes: Diagnosis: Arthritis of shoulder region, [...] Follow up: With: Address: When: [facility]ame [facility] [place] [address] Business (1) 04/26/2021 2:45 PM Patient Education Information: Danyell Yang - Shoulder Replacement (Custom) Normal [facility] Inpatient Patient Summaryon 04-19-2021 Inpatient Patient Summary [address] [address] Patient Discharge Instructions PERSON INFORMATION Name: NENO MEIERREY Asad Date of : 1960 Current Date: 04/19/2021 [...] None Follow up: With: Address: When: [place] [address] Business (1) 04/26/2021 2:45 PM In the [...] New Medications [facility], [address] [place] [id number], [phone] acetaminophen-oxycodo ne (Percocet 325 mg-5 mg Tab) [...] a day. (more content not included)... Normal [facility] Interdisciplinary Note - Mir e Manageron 04-19-2021 Interdisciplinary Note - Pet Training Instructor PT is awake and alert in bed, await rounds with Dr. Yang. . PCP verified and Insurance information reviewed and DME discussed. Contact information provided and white board updated. No family present at this time. Pt lives with and she will transport at [place]. Inpatient status reviewed, Medicare rights reviewed and form signed, original provided to pt. Declines any concerns or anticipated DC needs. Plan to [place] home today 04/19. MADELINE received a phone call from hospital mushroom growing supervisor Viri. States pt Ct called and waiting at pharmacy for meds to be filled and having a issue with filling them as prescribed. MADELINE contacted [facility], spoke with Yifan. States pt was prescribed Percocet and already on Morphine per pain management physician, and also already on clebrex, and prescribed Meloxicam. Will need clarification from . MADELINE contacted Dr. Yang office, VM left , situation explained and contact information provided. MADELINE again called office, spoke with Dr. Yang nurse, states she already received message from CRM and from pharmacist, waiting on Dr. Yang to come out of room and she will have him call to claify. Aware pt Ct is standing at pharmacy waiting for approval. [facility] contacted pt Ct [phone] and updated. Viri, hospital mushroom growing supervisor updated. [facility] Comment on above: Result Comment: Elec tronically Signed By: Petty KOO, Afia\.br\Date and Time Signed: 04/19/21 15:36 EDT IntraOperative Documentson 0 04-19-2021 IntraOperative Documents [id number]#1 .00CD:127 Normal [facility] IntraOperative Documents [id number]#1 .00CD:127 Normal [facility] Lyteson 04-19-2021 Anion gap [Moles/Vol] 11 mmol/L Normal 6-16 [facility] Comment on above: Performed By: #### 2 [id number] #### [facility] [address] [place] [address] Chloride [Moles/Vol] 103 mmol/L Normal 101-111 [facility] Comment on above: Performed By: #### 2 [id number] #### [facility] [address] [place] [address] CO2 [Moles/Vol] 30 mmol/L Normal 21-31 [facility] Comment on above: Performed By: #### 2 [id number] #### [facility] [address] [place] [address] Potassium [Moles/Vol] 4.0 mmol/L Normal 3.5-5.3 [facility] Comment on above: Performed By: #### 2 [id number] #### [facility] [address] [place] [address] Sodium [Moles/Vol] 140 mmol/L Normal 135-145 [facility] Comment on above: Performed By: #### 2 [id number] #### [facility] [address] [place] [address] Message from Medicareon 03-28 Message from Medicare [id number]# 1.00CD:127 [facility] Patient Education - Texton 0 04-19-2021 Patient Education - Text [place] [place] [facility] DISCHARGE INSTRUCTIONS: SHOULDER REPLACEMENT [...] the development of persistent vomiting. Kwame Yang, [facility] [address] [place] [address] Reviewed: [facility] Physician Orderon 04-19-2021 Physician Order [id number]#1 .00CD:127 Normal [facility] Preoperative Documentson Preoperative Documents [id number]#1 .00CD:127 Normal [facility] Preoperative Documents [id number] [id number]#1 .00CD:127 Normal [facility] Progress Note-Physicianon Progress Note-Physician Patient: [...] Pressure 80 mmHg SpO2 92 % Normal [facility] Comment on above: Result Comment: Elec tronically Signed By: Kwame Yang DO\.br\Date and Time Signed: 04/19/21 12:55 EDT eGFRon 04-19-2021 GFR/1.73 sq M.predicted among blacks MDRD (S/P/Bld) [Vol rate/Area] mL/min/{1.73_m2} Normal >=59 [facility] Comment on above: Order Comment: Order added by Discern Expert. Result Comment: eGFR is race adjusted. AA=. Performed By: #### 2 [id number] #### [facility] [address] [place] [address] GFR/1.73 sq M.predicted among non-blacks MDRD (S/P/Bld) [Vol rate/Area] mL/min/{1.73_m2} Normal >=59 [facility] Comment on above: Order Comment: Order added by Discern Expert. Result Comment: Rod Cup Filler aracely kidney disease could be indicated at eGFR's of less than 60 mL/min/1.73m2. Kidney failure is indicated at less than 15 mL/min/1.73m2. Performed By: #### 2 [id number] #### [facility] [address] [place] [address] ABO/Rhon 04-18-2021 ABO/Rh Positive Invalid Interpretation Code [facility] Comment on above: Performed By: #### 2 [id number], [id number], [id number], [id number] ####[facility] [address] [place] [address] ABO/Rh History Checkon 04-18 ABO/Rh History Check Verified Hx Blood Type Normal [facility] Comment on above: Performed By: #### 2 [id number], [id number], [id number], [id number] ####[facility] [address] [place] [address] ABSC Tubeon 04-18-2021 ABSC Tube Interp Negative Normal [facility] Comment on above: Performed By: #### 2 [id number], [id number], [id number], [id number] ####[facility] [address] [place] [address] Blood Bank ID#on 04-18-2021 BBID# [id number] Invalid Interpretation Code [facility] Comment on above: Performed By: #### 2 [id number], [id number], [id number], [id number] ####[facility] [address] [place] [address] Blood Bank Slipon 04-18-2021 Blood Bank Slip [id number]#1 .00CD:127 Normal [facility] Capillary Glucose POCon 06- Glucose [Mass/Vol] 293 mg/dL High 55-99 [facility] Comment on above: Result Comment: Eva dav Meter Performed By: #### 2 [id number] #### [facility] [address] [place] [address] Glucose [Mass/Vol] 312 mg/dL High 55-99 [facility] Comment on above: Result Comment: Joanna daly RN/ Performed By: #### 2 [id number] #### [facility] [address] [place] [address] Glucose [Mass/Vol] 241 mg/dL High 55-99 [facility] Comment on above: Result Comment: Eva dav Meter Performed By: #### 2 [id number] #### [facility] [address] [place] [address] Consent for Procedure/Surger yon 04-18-2021 Consent for Procedure/Surgery [id number]#1 .00CD:127 Normal [facility] Consent for Treatmenton 03-28 Consent for Treatment [id number]#1 .00CD:127 Normal [facility] H&P Updateon 04-18-2021 H&P Update [id number]#1 .00CD:127 Normal [facility] Main OR PACU I Recordon 03-28 Main OR PACU I Record PACU Phase I Docum ent Type FT Summary Primary Physician: Kwame Yang DO Finalized Date/Time: 04/18/21 16:44:21 Pt. Name: KOKO MEIER/Sex: 1960 Male Med Rec #: [id number] Physician: Kwame Yang DO Financial #: [id number] Pt. Type: O Room/Bed: N303/27 Admit/Disch: 04/18/21 08:03:48 - Institution: Case Times [...] Signed By: Keira Knox RN 04/18/21 16:44 [facility] Monitor Recordon 04-18-2021 Monitor Record [id number]# 1.00CD:127 Normal [facility] Operative Reporton Operative Report Patient: [...] 3. size 3 humeral insert 4. Revers [place] size 9 stem with 39 (+2 right) [...] the gregg (more content not included)... Normal [facility] Comment on above: Result Comment: Elec tronically Signed By: Kwame Yang DO\.br\Date and Time Signed: 04/18/21 12:52 EDT Outpatient Surgery Discharge Instructionon 04-18-2021 Outpatient Surgery Discharge Instruction [address] [address] Patient Discharge Instructions PERSON INFORMATION Name: KOKO MEIER Date of : 1960 Current Date: 04/18/2021 09:55:09 PHYSICIANS Admitting Physician: Kwame Yang DO Discharge Diagnosis: Arthritis of shoulder region, right, degenerative RENEA KOKO Asad has been given the following list of follow-up instructions, prescriptions, and patient education materials: IF UNABLE TO CONTACT YOUR PHYSICIAN AND YOU FEEL IT IS AN EMERGENCY, GO TO THE NEAREST EMERGENCY ROOM OR CALL 911 IRENEA JEFFREY S, have received the attached patient education materials/instruction s and have verbalized understanding: May we do a follow up call? Yes No I was present when discharge instructions were given Patient Signature Date Clinican/Nurse Signature Date Follow up: With: Address: When: Kwame Yang [address] [place] [address] [facility] (1) 04/26/2021 2:45 PM Pharmacy Information: You may receive a survey from [employer] asking you to rate your care experience. Your feedback is important and will help us understand what we do well and how we can improve the quality of care we provide to you, your loved ones and our community. It?s an honor to serve you. Thank you for choosing [facility] HERE ARE THE MEDICATION CHANGES THAT OCCURRED [...] times a day. PATIENT EDUCATION INFORMATION Instructions: [place] [place] [facility] DISCHARGE INSTRUCTIONS: SHOULDER REPLACEMENT [...] persistent vomiting. Kwame Yang, DO [facility] [address] [place], [place] [id number] Reviewed: Normal [facility] UA With Cult Reflexon 2020 Bilirubin Ql (U) Negative Normal Negative [facility] Comment on above: Performed By: #### 1 [id number] #### [facility] [address] [place] [address] Clarity (U) CLEAR Normal Clear [facility] Comment on above: Performed By: #### 1 [id number] #### [facility] [address] [place] [address] Color (U) YELLOW Normal Yellow [facility] Comment on above: Performed By: #### 1 [id number] #### [facility] [address] [place] [address] Epithelial cells.squamous LM.HPF (Urine sed) [#/Area] 0-2 Normal 0-2 [facility] Comment on above: Performed By: #### 1 [id number] #### [facility] [address] [place] [address] Glucose Test strip (U) [Mass/Vol] 2+ Abnormal Negative [facility] Comment on above: Performed By: #### 1 [id number] #### [facility] [address] [place] [address] Hemoglobin Ql (U) Negative Normal Negative [facility] Comment on above: Performed By: #### 1 [id number] #### [facility] [address] [place] [address] Ketones (U) [Mass/Vol] Negative Normal Negative [facility] Comment on above: Performed By: #### 1 [id number] #### [facility] [address] [place] [address] [place].plasma/[place]. RBC (Bld) [Mass ratio] 0-3 Normal 0-3 [facility] Comment on above: Performed By: #### 1 [id number] #### [facility] [address] [place] [address] Mucus Ql (Urine sed) TRACE Normal [facility] Comment on above: Performed By: #### 1 [id number] #### [facility] [address] [place] [address] Nitrite Ql (U) Negative Normal Negative [facility] Comment on above: Performed By: #### 1 [id number] #### [facility] [address] [place] [address] pH (U) 6.0 [pH] Invalid Interpretation Code 5.0-9.0 [facility] Comment on above: Performed By: #### 1 [id number] #### [facility] [address] [place] [address] Protein (U) [Mass/Vol] TRACE Abnormal Negative [facility] Comment on above: Performed By: #### 1 [id number] #### [facility] [address] [place] [address] Specific gravity (U) [Rel density] 1.020 Invalid Interpretation Code 1.005-1.030 [facility] Comment on above: Performed By: #### 1 [id number] #### [facility] [address] [place] [address] Type of Urine collection method Cohn Normal [facility] Comment on above: Performed By: #### 1 [id number] #### [facility] [address] [place] [address] Urobilinogen Qn (U) 0.2 {Rolando'U}/dL Normal 0.0-1.0 [facility] Comment on above: Performed By: #### 1 [id number] #### [facility] [address] [place] [address] WBC Auto Ql (U) Negative Normal Negative [facility] Comment on above: Performed By: #### 1 [id number] #### [facility] [address] [place] [address] WBC LM.HPF (Urine sed) [#/Area] 0-5 Normal 0-5 [facility] Comment on above: Performed By: #### 1 [id number] #### [facility] [address] [place] [address] XR Shoulder Complete Righton 04-18-2021 XR Shoulder [...] REPORT Dictated: 04/18/2021 2:26 pm Jorge Zapien MD Signed (Electronic Signature): 04/18/2021 2:26 pm Signed by: Jorge Zapien MD Transcribed by: BECKY Technologist: CHRALY, [facility] Outside Recordson 04-17-2021 Outside Records [id number]# 1.00CD:127 [facility] Outside Recordson 04-09-2021 Outside Records [id number]# 1.00CD:127 [facility] CT Upper Extremity w/o Contr ast [...] Warren MD Transcribed by: BECKY Technologist: CONSUELO [facility] Coding Summary.on 04-04-2021 Coding Summary. CD:[id number]:[id number] G h0bWw+PGhlYWQ+PD6AWRE nQ84aeMOhgS2OC5oILS2E TUSVNLUQXO6IVK0voID5G MenM3ItuiKg JzwnmGWrJA17JLy7IJZ8i GklTBimqW1eaWQmC6r9Za MuGJ88gH06NAmtASWmJlM 3LjZpbjsgbWFy Y1qlXxThlMZwYfs+PHRhY mxlIHdpZHRoPScxMDAlJy VnpHpgZJ8pTj8uUSPvAXY vbGxhcHNlOiBj l5clLBSzDCrvAR6ucHzbY 6IcsXJ3JBXrg0t5Ng63tB I+EQZdBMW3xSmbLUnio15 6QwZtp7twVPN9 zKBePMxiYZA7U21qu6Y8M XLiSWUfSJN7xBD9mB9wjQ iydqsvD4DmxYIfLcC2LNH 9gQWtcX3axPup agymyH1dOqb+Q98KEH6ZS XJOLG6HUdo2B2SuLdsvwG I+JE97GNHjHH97jVVywDR lr7cgaFi9PxGw SEAfMTZ5mJcuYUstd5IlF RPmW53mwASfi1F7NRXmfW paxBKzGvZajRT4nF9hYOy ixcmyp7qghgfa Orgkt2sqln02tD42U63sK DrfJHNiIJC4QSChGGCfqD brvq2tjI0hDs4+AIldq0t hj2fvcGn6FyHr NXLzdlGzaWpiANK9q3AoA b91T9TrdTomg8MyWuv0an 39sDIww2V4qTC8XFiqKBJ qhG7iSQxmSlO0 PVGpNzMgxR38wYMtABwvF q7jsAlbpGnvGN6eYIAfke kzYCYwwH5xVLKjyAQlfDe dFG4gDFJmucni y579SeCcTJS4BKXiuYYhT 4VauB8lUyQrEMByJELqK7 PjjUPcEZamO605FFwhVkG 3BVOlzzFeP2Oz OWAzkBrhMmV5k4A0Fk2Lj 4ThwbcpYVE3OFmtCFR2Tm A8LcOgRnL1L1IwGqe3UDO zfIwcEU0bG7Uc HEGpwobmcdidnBR5CLYaF SQobA82rTCpJDuwWl5mv0 B2t581IDEaOSNrwN28Jk5 udDogMTBwdCBU pA0iabmbr8tdpjafHvDqX FQxPQk0TLx2RWUmxHuzQr YpZJU0XrC4MMA9wVAxsU6 vvSmwaiacpQ5i Oyc+T28hmF2uWFO7PRT0k txqYMBtqfGyIF29LG66R9 RyPjwvdGFibGU+PGRpdiB esUejIH6uGaBh s4sen3YmRHbpC3WfDROhF XnsHtk3ZGHkIUA3cJW3kH 1vHPTlFUcru3N9gSU8C3Q tdyMqex1be5gf PEDjQObqH31msZTpm8P3V NHzwRF5DELfxPviEtJnaM 93Oyc+USZmbRtzh5IxIcc gz1ixt0rttMc7 HfMiBSHmgkYjuRswQNJ0b 7RcNe22Y17zNMphTYTkOQ LoHTHyOUVyxSfeji7pjI8 wIi8+PGNvbCB3 sYR4nL8dKTAbXzD6SOnoI 811HqMbzAZlWtmmu1hdz8 egqPp8OuCpAHEpvaZulUc rZGQ0k9ZoWs61 O44vLAcyLQBmIFUlSSGyF MVryKwmgi1ttJ4dQu2+PC 5xy2gqpy29qJ64hXQ+PHR sKNX5rYuaBCna TQLboZ0hGIgpSeV8FXNgF hPyjF71nFIeZUzdJu4hbP bmxXkvLJ1qNLUzatxah23 3ExSmz7erOLAe bXGpXTdhPXF1K39cl7I3F WIdVUAaUVL7iAN8rM0iaT lnbjogbGVmdDsgdmVydGl zWJzcZDxzG656 IHRvcDsnPlBhdGllbnQgT yCyPAo2H1ZpTqs4JNLsaL kkBZ6fgFPkECokTu7tzXl awHwgUR2bUTJn cotno111NsXua5hqCLDjh SFpJQktJRO6F79pd0N0WP PkTOPcHJR2bEE9zG3cpHk nbjogbGVmdDsg esWaxVjgBVnoOQkrK054K HRvcDsnPkJpcnRoIERhdG R4LG17BQ02yYOww4C6aKO 5G0CvSODdssia egoagPS5TURxPNHleZ55P y8giVauYv4bONUdFOV5YK NahAXnO1JnpM4zOjHcNAP cCXEaU6BeuKTs GConO184IEaaAlA2UUUcn wKaL2NtLODebSfyKwU6g1 I0Cd4CR7E2BB97JX42fAX dz3K1mCZ7P4Tl UFMyotrqfvmqqHR1NRYbG EQgoE63Ta6gaYfvZo9mXM VuLAL1LCZsqCRvX9FonK0 yOiAjMDAwMDAw V6OylLSjPIliK103VEjfX fG6QFFghdKzH5UjAQPwcK ihOhK5z3T4Tk2OASb6KH4 3FS27xTYcw2U4 sIF3I3ApKLDomnhjcnguj AJ4SGCzQHAlxG56Hw2rvU odDv9yBVPvXEQ5QOWneWG fL3MsiC4uCxHy HLRsIPDrD9VcyDTnDRyyL 372AEtkYnQ1GQHypmHlM8 TaAQDucPowYwV2e1U1Mb6 NXRVpBX73CAW5 pXI8XC16VC03K6NrLtxeh GFibGU+PHRhYmxlIHdpZH RoPScxMDAlJyBzdHlsZT0 eBi9fLSCmBOBn gIocrIJxEuXtq1ssMKJcU MjkCT1acAxjG9OtgBE0DI Nbo7v6Yu07Y66mQ9BqcVL +CPWlgTW3jZG2 bV9oGyOpHhH0FDcaO319R sKfwKZoPtdjx1fql3auzA v7CwQ6WIFivmUnaIfqHFY 7v9IcUg70H44r IHdpZHRoPSIxNSUiIHZhb Kkpbb2amO7fJp0+PGNvbC E9iVD7xU3sJmOiMcJ6ONq vM675QtIkpIPm Rvaik9sdu4sczYk7NvLuP VRjjuJgxYomMYL1g3QzYr 22S9LpxNttv2MfIeq6dn1 5yBEpa8I4sCV0 H8ZzUGJmvfhawDOqjFnlD U9tUIIeksvuFGDowG8hKR GeF0m4FrZcZwI8DPvdF6K jzoE7XGAzaZNo IHpbZNF0R81oo0W3AKKqH TXwWXJ3sTA0hL4nnTtyug ogbGVmdDsgdmVydGljYWw fRUwqP639QMBb rYaxDKLugN2kPVUkrNQno LqaEW4fOKCipaxoYnTSBE 5ERVIsIEpFRkZSRVkgUzw vdGQ+PHRkIHN0 aSoyDBmwUNChqR1iFNFvU 2p6XaBbHhH3JFpwM5ThFS CzvynsKs88sJ5mSkPaBhM 9YZwtD1PcqzX6 IULlkKPmKRgtHWV9G42rx 5S8VWCmCOUiJUN9hHU0jY 1hbGlnbjogbGVmdDsgdmV ydGljYWwtYWxp V371SYFqbYinZmKdUgQkN jE9CXa3E3PjHza5WYMxeQ wlAX9ocUSxCZwpQj1cqHv xoFslMY2cAQOe fgqoEVIshS4lYETjpDXod LtdVC9zLAHesgsqo253Qd ElLSH0ESNdtPQuH3ZwdM1 yOiAjMDAwMDAw X9UdbSSsQAdaB927IYqcV fY1HZSigkOkZ9ZtQBVhiE svPeE2v6N4Fh60HcFZXFT yczwvdGQ+PHRk VNJ8bPpnBBmgUSOqyC1jJ PTdM8q8AxJcEvH2IIriC6 LsMTUmuqdrGr31dX0jCzL sZxU7IBymU4Fv aaW1HARwwOPjBRwlBZW3M 32ld8E8BGTyVIEqCKY1qI T1eZ0liPlmbxvbwZPcjBm gdmVydGljYWwt PKzkK185AWVnhDmpFd2dz JY2T3VpVmn0PLEsgCpbZT 0ezHTbTCzhIi2nkPsttQh nVP9hXTSphiuu ZUSycE6lBEUhoPDfvGsoK H5uGGKcqynxs374XzTfLI T1PMEfxFMsU5AwrU9iFdO jZHXoTUJaA5Oh yXKtTMpbL938DZgiFaI1B ACkfbStH2CwYWZwdJgkHn D7c4O2Do6SsLXbBRNwJF9 6JO83DE46W2Lc PjwvdGFibGU+PHRhYmxlI HdpZHRoPScxMDAlJyBzdH tmTM2bSe5lQNHpITXjiJb tzPJlCwHzx7gs OVZvCQykFT7ruJhjX4Yba NW3GRMyp0y5Nb55C63pR3 JvdXA+PYFskLH6gVO3qX5 lHpRqHsC7HJol T770NyCvwIZqVsnut9bzg 5zkjPt7GoBlZYAichNziL tjJOF0h2CcMk24A19yNOd pZHRoPSIyMCUi EEPqqSboxv5pcA3jCg8+P XKpaHL8lNS1wS5eOtRfJi Y1JWftN319KgEygDJoKlb aU64wC0WxaQN+ JGVuUfv6ZLQekIakXL9iu IBgXTecQr6xQWO7LoZoTi TkTAjjN6KjZMOdkembryd bbGQ7USBpOMBz hN34Ip8bgRkgKi8wMXIxQ VE0ZSVijSTtX6UcsA7iWt EbFMEvHVVsY3RqgQUdMPl cX127SEqhWvD6 YRNbduFaB2IwREShnKisY bZ8q7H5Jc7XfNuxtCVwYM 7zJbKsEIo0M6ThRta9POP qwZawQS5fhFVn YXbjWe7qkIdrqHpsTM0rM YFmzliav363HzYob3xzTP TtnMMbDAohEIX0C63yf1C 4SERbLNPbGQS3 aPN5cB6pxIyprkdedYGuj DsgdmVydGljYWwtYWxpZ2 72NLJafQykQfYMFyr3M5Q dPso1YSQzqFri CW4qsJRnNXxhOi1mgCssp DulMN4cTUPojeywj415Ez Djl2dwOCMfpHBbWSscVQM 3S14hj9T2SBIa ZCZlFER6eLQ0zI1lpTnhd jogbGVmdDsgdmVydGljYW vrBYyxJ701NIBtvJrtXr0 FHvp4P3WdUhu7 OEQusRbpKL9veKZpDTguR t5kcXjbwRjhPI3pTOJcni trb453NcVrp0dpFTHxxXR zTAjuBMG9K45a m0W2EDQpWRNdXXE3bAQ6y V7cnTvurwhhhYTwqEffge NaeGcnKQhxRXxfB389IZU vcDsnPlBheWVy OjwvdGQ+MO96sp37S9GrR xdwHjc0ZKYnYKH9mTC0sD 8bRKSeZShea4L8uPH0H3Y rakWkla3vp0ha YXBz (more content not included)... Normal [facility] Immunization Recordson 04-04 Immunization Records [id number]#1. 00CD:127 Normal [facility] ABO/Rh Retypeon 04-03-2021 ABO/Rh Retype Interp Positive Invalid Interpretation Code [facility] Comment on above: Performed By: #### 1 [id number] ####[facility] [address] [place] [address] BUNon 04-03-2021 Urea nitrogen [Mass/Vol] 22 mg/dL High 5-21 [facility] Comment on above: Performed By: #### 1 [id number] #### [facility] Laboratory [address] [place] [address] CBC w/Indiceson 04-03-2021 Erythrocyte distribution width (RBC) [Ratio] 12.7 % Normal 10.9-14.2 [facility] Comment on above: Performed By: #### 1 [id number] #### [facility] [address] [place] [address] Hematocrit (Bld) [Volume fraction] 47.4 % Normal 37.7-49.0 [facility] Comment on above: Performed By: #### 1 [id number] #### [facility] [address] [place] [address] Hemoglobin (Bld) [Mass/Vol] 16.1 g/dL Normal 13.5-17.5 [facility] Comment on above: Performed By: #### 1 [id number] #### [facility] [address] [place] [address] MCH (RBC) [Entitic mass] 31.8 pg Normal 27.0-34.0 [facility] Comment on above: Performed By: #### 1 [id number] #### [facility] [address] [place] [address] MCHC (RBC) [Mass/Vol] 34.1 g/dL Normal 31.4-36.0 [facility] Comment on above: Performed By: #### 1 [id number] #### [facility] [address] [place] [address] MCV (RBC) [Entitic vol] 93.2 fL Normal 80.0-100.0 [facility] Comment on above: Performed By: #### 1 [id number] #### [facility] [address] [place] [address] Platelet mean volume (Bld) [Entitic vol] 9.3 fL Normal 6.4-10.8 [facility] Comment on above: Performed By: #### 1 [id number] #### [facility] [address] [place] [address] Platelets (Bld) [#/Vol] 168.0 E9/L Normal 150.0-500.0 [facility] Comment on above: Performed By: #### 1 [id number] #### [facility] [address] [place] [address] RBC (Bld) [#/Vol] 5.1 E12/L Normal 4.3-5.9 [facility] Comment on above: Performed By: #### 1 [id number] #### [facility] [address] [place] [address] WBC corrected for nucl RBC Auto (Bld) [#/Vol] 8.0 E9/L Normal 4.0-11.0 [facility] Comment on above: Performed By: #### 1 [id number] #### [facility] [address] [place], [place] [address] Consent for Treatmenton Consent for Treatment [id number] .00CD:127 Normal [facility] Creatinineon 04-03-2021 Creatinine [Mass/Vol] 0.7 mg/dL Normal 0.5-1.3 [facility] Comment on above: Performed By: #### 1 [id number] #### [facility] [address] [place], [place] [address] Glucoseon 04-03-2021 Glucose [Mass/Vol] 249 mg/dL High 55-199 [facility] Comment on above: Performed By: #### 1 [id number] #### [facility] [address] [place] [address] [id number] 04-03-2021 HbA1c (Bld) [Mass fraction] 7.9 % High <=5.9 [facility] Comment on above: Performed By: #### 7 [id number] #### [facility] [address] [place] [address] Lyteson 04-03-2021 Anion gap [Moles/Vol] 15 mmol/L Normal 6-16 [facility] Comment on above: Performed By: #### 1 [id number] #### [facility] [address] [place] [address] Chloride [Moles/Vol] 94 mmol/L Low 101-111 [facility] Comment on above: Performed By: #### 1 [id number] #### [facility] [address] [place] [address] CO2 [Moles/Vol] 27 mmol/L Normal 21-31 [facility] Comment on above: Performed By: #### 1 [id number] #### [facility] [address] [place] [address] Potassium [Moles/Vol] 4.2 mmol/L Normal 3.5-5.3 [facility] Comment on above: Performed By: #### 1 [id number] #### [facility] [address] [place] [address] Sodium [Moles/Vol] 132 mmol/L Low 135-145 [facility] Comment on above: Performed By: #### 1 [id number] #### [facility] [address] [place] [address] XR Chest 2 Viewson XR Chest 2 [...] V. Transcribed by: BECKY Technologist: JOSE ELIAS [facility] eGFRon 04-03-2021 GFR/1.73 sq M.predicted among blacks MDRD (S/P/Bld) [Vol rate/Area] mL/min/{1.73_m2} Normal >=59 [facility] Comment on above: Order Comment: Order added by Discern Expert. Result Comment: eGFR is race adjusted. AA=. Performed By: #### 1 [id number] #### [facility] [address] [place] [address] GFR/1.73 sq M.predicted among non-blacks MDRD (S/P/Bld) [Vol rate/Area] mL/min/{1.73_m2} Normal >=59 [facility] Comment on above: Order Comment: Order added by Discern Expert. Result Comment: Rod Cup Filler aracely kidney disease could be indicated at eGFR's of less than 60 mL/min/1.73m2. Kidney failure is indicated at less than 15 mL/min/1.73m2. Performed By: #### 1 [id number] #### [facility] [address] [place] [address] Physician Orderon 03-01-2021 Physician Order [id number]# 1.00CD:127 Normal [facility] Pre-Certification Formon Pre-Certification Form [id number]# 1.00CD:127 Normal [facility] Physician Orderon 02-28-2021 Physician Order [id number]# 1.00CD:127 Normal [facility] Coding Summary.on 12-21-2020 Coding Summary. CODING DATE: 12/21/2020 FINAL [facility] STATUS: Home (Routine DC) PAYOR: Medicare APC [...] CphT Date Saved: 12/21/2020 01:14 pm Normal [facility] CT Upper Extremity w/ Contra [...] Report Acromioclavicular Joint: Severe degenerative changes with czdj-nx-dkiu contact, extensive subchondral cystic changes involving the [...] None Contrast amount in ml's: 0 Normal [facility] Consent for Treatmenton 11-28 Consent for Treatment [id number] 102 [id number] .00CD:127 Normal [facility] Creatinineon 12-20-2020 Creatinine [Mass/Vol] 0.7 mg/dL Normal 0.5-1.3 [facility] Comment on above: Performed By: #### 2 [id number], [id number] #### [facility] [address] [place] [address] Physician Orderon 12-20-2020 Physician Order [id number] .00CD:127 Normal [facility] RAD - Consent to Procedureon 12-20-2020 RAD - Consent to Procedure [id number]#1 .00CD:127 Normal [facility] XR Inj Shoulder Arthrogram R [...] shoulder joint. Patient tolerated the procedure well. Biller image shows minimal calcification adjacent to the superior and lateral aspect of the humeral head, suggesting possible calcific tendinitis. Radiation dose was 21 mGy. FINAL REPORT Dictated: 12/20/2020 10:56 am Earle Booth M.D. Signed (Electronic Signature): 12/20/2020 10:56 am Signed by: Earle Booth M.D. Transcribed by: BECKY Technologist: ANDRE Technical Comments Contrast: Isovue 300 Contrast amount in ml's: 12 Radiation Dose: Kar in mGy = 21 Normal [facility] eGFRon 12-20-2020 GFR/1.73 sq M.predicted among blacks MDRD (S/P/Bld) [Vol rate/Area] mL/min/{1.73_m2} Normal >=59 [facility] Comment on above: Order Comment: Order added by Discern Expert. Result Comment: eGFR is race adjusted. AA=. Performed By: #### 2 [id number], [id number] #### [facility] [address] [place] [address] GFR/1.73 sq M.predicted among non-blacks MDRD (S/P/Bld) [Vol rate/Area] mL/min/{1.73_m2} Normal >=59 [facility] Comment on above: Order Comment: Order added by Discern Expert. Result Comment: Rod Cup Filler aracely kidney disease could be indicated at eGFR's of less than 60 mL/min/1.73m2. Kidney failure is indicated at less than 15 mL/min/1.73m2. Performed By: #### 2 [id number], [id number] #### [facility] [address] [place] [address] Physician Orderon 12-08-2020 Physician Order [id number] .00CD:127 [facility] Pre-Certification Formon Pre-Certification Form [id number]#1 .00CD:127 [facility] Consent for Treatmenton Consent for Treatment [id number]#1 .00CD:127 Normal [facility] RAD - MISCon 12-05-2020 RAD - MISC [id number]# 1.00CD:127 [facility] RAD - MRI Screening Formon 0 12-05-2020 RAD - MRI Screening Form [id number]# 1.00CD:127 Normal [facility] Physician Orderon 11-29-2020 Physician Order [id number]#1 .00CD:127 [facility] Pre-Certification Formon Pre-Certification Form [id number]#1 .00CD:127 [facility] Vital Signs Date Time Vital Sign Value Performing Clinician Facility 11-11-2023 10:37-0500 Body height 170.2 cm Maryann Rubalcava MD Work Phone: [facility] 11-11-2023 10:37-0500 Body mass index (BMI) [Ratio] 36.02 kg/m2 Maryann Rubalcava MD Work Phone: [facility] 11-11-2023 10:37-0500 Body temperature 98.6 [degF] Maryann Rubalcava MD Work Phone: [facility] 11-11-2023 10:37-0500 Body weight 104.33 kg Maryann Rubalcava MD Work Phone: [facility] 11-11-2023 10:37-0500 Diastolic blood pressure 62 mm[Hg] Maryann Rubalcava MD Work Phone: [facility] 11-11-2023 10:37-0500 Heart rate 98 /min Maryann Rubalcava MD Work Phone: [facility] 11-11-2023 10:37-0500 Systolic blood pressure 136 mm[Hg] Maryann Rubalcava MD Work Phone: [facility] 11-03-2023 16:35-0500 Diastolic blood pressure 59 mm[Hg] DO Josh Bunting Work Phone: [facility] 11-03-2023 16:35-0500 Heart rate 91 /min DO Josh Bunting Work Phone: [facility] 11-03-2023 16:35-0500 Respiratory rate 16 /min DO Josh Bunting Work Phone: [facility] 11-03-2023 16:35-0500 SaO2% (BldA) [Mass fraction] 92 % DO Josh Bunting Work Phone: [facility] 11-03-2023 16:35-0500 Systolic blood pressure 117 mm[Hg] DO Josh Bunting Work Phone: [facility] 11-03-2023 15:41-0500 Body temperature 97.4 [degF] DO Josh Bunting Work Phone: [facility] 11-03-2023 15:11-0500 Inhaled oxygen flow rate 3 L/min DO Josh Bunting Work Phone: [facility] 11-03-2023 11:46-0500 Body height 170.18 cm DO Josh Bunting Work Phone: [facility] 11-03-2023 11:46-0500 Body mass index (BMI) [Ratio] 37.6 kg/m2 DO Josh Bunting Work Phone: [facility] 11-03-2023 11:46-0500 Body weight 109 kg DO Josh Bunting Work Phone: [facility] 10-14-2023 09:40-0500 Body height 170.18 cm [employer] Other [facility] Other 10-14-2023 09:40-0500 Body mass index (BMI) [Ratio] 37.9 kg/m2 [employer] Other [facility] Other 10-14-2023 09:40-0500 Body weight 109.77 kg [employer] Other [facility] Other 10-02-2023 09:10-0500 Body height 170.18 cm DO Josh Bunting Work Phone: [facility] 10-02-2023 09:10-0500 Body mass index (BMI) [Ratio] 37.3 kg/m2 DO Josh Bunting Work Phone: [facility] 10-02-2023 09:10-0500 Body weight 108 kg DO Josh Bunting Work Phone: [facility] 10-02-2023 08:53-0500 Body temperature 98.5 [degF] DO Josh Bunting Work Phone: [facility] 10-02-2023 08:53-0500 Diastolic blood pressure 82 mm[Hg] DO Josh Bunting Work Phone: [facility] 10-02-2023 08:53-0500 Heart rate 92 /min DO Josh Bunting Work Phone: [facility] 10-02-2023 08:53-0500 Respiratory rate 18 /min DO Josh Bunting Work Phone: [facility] 10-02-2023 08:53-0500 SaO2% (BldA) [Mass fraction] 95 % DO Josh Bunting Work Phone: [facility] 10-02-2023 08:53-0500 Systolic blood pressure 169 mm[Hg] DO Josh Bunting Work Phone: [facility] 09-16-2023 09:20-0500 Body height 170.18 cm Karime Nguyen Other [facility] Other 09-16-2023 09:20-0500 Body mass index (BMI) [Ratio] 37.59 kg/m2 Karime Nguyen Other [facility] Other 09-16-2023 09:20-0500 Body weight 108.86 kg Karime Nguyen Other [facility] Other 07-29-2023 16:43-0400 Body height 167.64 cm DO Josh Bunting Work Phone: [facility] 07-29-2023 16:43-0400 Body temperature 98 [degF] DO Josh Bunting Work Phone: [facility] 07-29-2023 16:43-0400 Body weight 104.32 kg DO Josh Bunting Work Phone: [facility] 07-29-2023 16:43-0400 Diastolic blood pressure 74 mm[Hg] DO Josh Bunting Work Phone: [facility] 07-29-2023 16:43-0400 Heart rate 99 /min DO Josh Bunting Work Phone: [facility] 07-29-2023 16:43-0400 Respiratory rate 24 /min DO Josh Bunting Work Phone: [facility] 07-29-2023 16:43-0400 SaO2% (BldA) [Mass fraction] 94 % DO Josh Bunting Work Phone: [facility] 07-29-2023 16:43-0400 Systolic blood pressure 141 mm[Hg] DO Josh Bunting Work Phone: [facility] 03-26-2023 11:26-0400 Heart rate 88 /min Donny Peralta [employer].NETWORK SUPPORT MANAGER Work Phone: [facility] 03-26-2023 11:26-0400 Respiratory rate 17 /min Donny Peralta APRN.NETWORK SUPPORT MANAGER Work Phone: [facility] 03-26-2023 11:26-0400 SaO2% (BldA) [Mass fraction] 98 % Donny Peralta APRN.NETWORK SUPPORT MANAGER Work Phone: [facility] 04-16-2022 09:30-0400 Body height 170.18 cm Mariel Mcgraw Other [facility] Other 04-16-2022 09:30-0400 Body temperature 97.6 [degF] Mariel Mcgraw Other [facility] Other 04-16-2022 09:30-0400 Diastolic blood pressure 78 mm[Hg] Mariel Mcgraw Other [facility] Other 04-16-2022 09:30-0400 Respiratory rate 20 /min Mariel Mcgraw Other [facility] Other 04-16-2022 09:30-0400 SaO2% (BldA) [Mass fraction] Ulyssesal Chaban Other [facility] Other 04-16-2022 09:30-0400 Systolic blood pressure 154 mm[Hg] Ulyssesal Chaban Other [facility] Other 01-08-2022 14:30-0400 Body height 170.18 cm Mariel Mccarthyban Other [facility] Other 01-08-2022 14:30-0400 Body mass index (BMI) [Ratio] 37.27 kg/m2 Mariel Mccarthyban Other [facility] Other 01-08-2022 14:30-0400 Body temperature 97.4 [degF] Mariel Mccarthyban Other [facility] Other 01-08-2022 14:30-0400 Body weight 107.96 kg Mariel Mccarthyban Other [facility] Other 01-08-2022 14:30-0400 Diastolic blood pressure 72 mm[Hg] Mariel Chaban Other [facility] Other 01-08-2022 14:30-0400 Respiratory rate 20 /min Mariel Mccarthyban Other [facility] Other 01-08-2022 14:30-0400 SaO2% (BldA) [Mass fraction] 95 % Mariel Chaban Other [facility] Other 01-08-2022 14:30-0400 Systolic blood pressure 130 mm[Hg] Ulyssesal Chaban Other [facility] Other 09-06-2021 10:00-0500 Body height 170.18 cm Mariel Chaban Other [facility] Other 09-06-2021 10:00-0500 Body mass index (BMI) [Ratio] 37.59 kg/m2 Mariel Chaban Other [facility] Other 09-06-2021 10:00-0500 Body temperature 96.8 [degF] Mariel Mccarthyban Other [facility] Other 09-06-2021 10:00-0500 Body weight 108.86 kg Mariel Mccarthyban Other [facility] Other 09-06-2021 10:00-0500 Diastolic blood pressure 68 mm[Hg] Mariel Chaban Other [facility] Other 09-06-2021 10:00-0500 Respiratory rate 20 /min Mariel Mccarthyban Other [facility] Other 09-06-2021 10:00-0500 SaO2% (BldA) [Mass fraction] 95 % Mariel Chaban Other [facility] Other 09-06-2021 10:00-0500 Systolic blood pressure 136 mm[Hg] Ulyssesal Chaban Other [facility] Other 07-23-2021 10:30-0400 Body height 170.18 cm Mariel Chaban Other [facility] Other 07-23-2021 10:30-0400 Body mass index (BMI) [Ratio] 38.21 kg/m2 Mariel Mcgraw Other [facility] Other 07-23-2021 10:30-0400 Body temperature 96.1 [degF] Mariel Mcgraw Other [facility] Other 07-23-2021 10:30-0400 Body weight 110.68 kg Mariel Mcgraw Other [facility] Other 07-23-2021 10:30-0400 Diastolic blood pressure 78 mm[Hg] Mariel Mcgraw Other [facility] Other 07-23-2021 10:30-0400 Respiratory rate 20 /min Mariel Mcgraw Other [facility] Other 07-23-2021 10:30-0400 SaO2% (BldA) [Mass fraction] 95 % Mariel Mcgraw Other [facility] Other 07-23-2021 10:30-0400 Systolic blood pressure 150 mm[Hg] Mariel Mcgraw Other [facility] Other Encounters Encounter Date Encounter Type Care Provider Facility Start: 11-11-2023 End: 11-12-2023 ambulatory MARYANN RUBALCAVA [facility] Start: 11-11-2023 End: 11-11-2023 Office consultation new/estab patient 80 min [facility] Comment on above: Cervical myelopathy (CMS/HCC) (Primary Dx); Sagittal plane imbalance; 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; Lumbar stenosis with neurogenic claudication Start: 11-10-2023 End: 11-10-2023 ambulatory YOGESH BECKER V Not Available Start: 11-03-2023 End: 11-03-2023 ambulatory Yogesh Becker Facility:[facility] Start: 11-03-2023 End: 11-03-2023 Admission to same day surgery center DO Josh Bunting Work Phone: [facility] [place] Start: 11-03-2023 End: 11-03-2023 ambulatory DO Josh Bunting Work Phone: [facility] Work Phone: Start: 10-23-2023 End: 10-23-2023 ambulatory Josh Bunting Facility:[facility] Start: 10-23-2023 End: 10-23-2023 ambulatory DO Josh Bunting Work Phone: [facility] Work Phone: Start: 10-23-2023 End: 10-23-2023 Patient encounter procedure DO Josh Bunting Work Phone: [facility] Work Phone: Start: 10-14-2023 Office outpatient vi sit 40 minutes Karime Nguyen [facility] Start: 10-14-2023 End: 10-14-2023 ambulatory YOGESH LAMGAS [facility] [employer] Other Start: 10-09-2023 End: 10-09-2023 ambulatory FEROZ PATEL Not Available Start: 10-02-2023 End: 10-02-2023 ambulatory Yogesh Becker Facility:[facility] Start: 10-02-2023 End: 10-02-2023 Admission to same day surgery center DO Josh Bunting Work Phone: [facility] [place] Start: 10-02-2023 End: 10-02-2023 ambulatory DO Josh Bunting Work Phone: [facility] Work Phone: Start: 09-30-2023 End: 09-30-2023 ambulatory Savanna Mcclain MD Facility:[facility] Start: 09-29-2023 End: 09-30-2023 ambulatory Savanna Mcclain MD Facility: [facility] Start: 09-26-2023 End: 09-26-2023 ambulatory IMTIAZ ZAIDI Not Available Start: 09-23-2023 End: 09-23-2023 ambulatory Yogesh Becker Facility:[facility] Start: 09-23-2023 End: 09-23-2023 ambulatory DO Josh Bunting Work Phone: [facility] Work Phone: Start: 09-23-2023 End: 09-23-2023 Patient encounter procedure DO Josh Bunting Work Phone: [facility] Work Phone: Start: 09-22-2023 End: 09-23-2023 ambulatory Savanna Mcclain MD Facility: [facility] Start: 09-16-2023 End: 09-16-2023 ambulatory Karime Nguyen Other [facility] Other Start: 09-16-2023 Office outpatient ne w 45 minutes Karime Nguyen [facility] Start: 08-11-2023 End: 08-12-2023 ambulatory Savanna Mcclain MD Facility:[facility] Start: 08-11-2023 End: 08-11-2023 ambulatory DO Josh Bunting Work Phone: [facility] Work Phone: Start: 08-11-2023 End: 08-11-2023 Patient encounter procedure DO Josh Bunting Work Phone: [facility] [place] Work Phone: Start: 08-01-2023 End: 08-01-2023 ambulatory Josh Bunting Facility:[facility] Start: 08-01-2023 End: 08-01-2023 Patient encounter procedure DO Josh Bunting Work Phone: [facility] [place] Work Phone: Start: 07-29-2023 End: 07-29-2023 Emergency department patient visit Nery Casanova Facility:[facility] Start: 07-29-2023 End: 07-29-2023 Emergency department patient visit DO Josh Bunting Work Phone: [facility] Work Phone: Start: 06-12-2023 End: 06-12-2023 ambulatory Mariel Mcgraw Other [facility] Other Start: 06-12-2023 Telephone encounter Mariel Mcgraw [facility] Start: 04-21-2023 End: 04-21-2023 ambulatory Josh Bunting Facility:[facility] Start: 04-21-2023 End: 04-21-2023 ambulatory DO Josh Bunting Work Phone: [facility] Work Phone: Start: 04-21-2023 End: 04-21-2023 Patient encounter procedure DO Josh Bunting Work Phone: [facility] [place] Work Phone: Start: 03-26-2023 End: 03-26-2023 ambulatory DONNY PERALTA Facility:[facility] Start: 03-26-2023 End: 03-26-2023 Patient encounter procedure Donny Peralta [employer] GENERATOR [employer] CUTTER.NETWORK SUPPORT MANAGER Work Phone: Otolaryngology Comment on above: Laryngeal candidiasi s (Primary Dx); Glossitis; Oral candidiasis; Hoarseness of voice; History of alcohol abuse Start: 02-10-2023 End: 02-10-2023 ambulatory Errol Humphrey Facility:[facility] Start: 02-10-2023 End: 02-10-2023 ambulatory DO Josh Bunting Work Phone: [facility] Work Phone: Start: 02-10-2023 End: 02-10-2023 Patient encounter procedure DO Josh Bunting Work Phone: [facility] [place] Work Phone: Start: 12-31-2022 End: 12-31-2022 ambulatory Josh Bunting Facility:[facility] Start: 12-31-2022 End: 12-31-2022 ambulatory DO Josh Bunting Work Phone: [facility] Work Phone: Start: 12-31-2022 End: 12-31-2022 Patient encounter procedure DO Josh Bunting Work Phone: [facility] [address] Work Phone: Start: 11-06-2022 End: 11-06-2022 ambulatory DO Josh Bunting Work Phone: [facility] Work Phone: Start: 11-06-2022 End: 11-06-2022 Patient encounter procedure DO Josh Bunting Work Phone: [facility] [place] Work Phone: Start: 09-30-2022 End: 09-30-2022 ambulatory DO Josh Bunting Work Phone: [facility] Work Phone: Start: 09-30-2022 End: 09-30-2022 Patient encounter procedure DO Josh Bunting Work Phone: [facility] [place] Start: 06-19-2022 End: 06-19-2022 Patient encounter procedure DO Josh Bunting Work Phone: [facility] [place] Start: 06-05-2022 End: 06-05-2022 ambulatory Alexis Abdi Other [facility] Other Start: 06-05-2022 Telephone encounter Alexis Abdi [facility] Start: 04-16-2022 End: 04-16-2022 ambulatory Kamal Chaban Other [facility] Other Start: 04-16-2022 Office outpatient vi sit 25 minutes Kamal Chaban [facility] Start: 01-08-2022 End: 01-08-2022 ambulatory Kamal Chaban Other [facility] Other Start: 01-08-2022 Office outpatient vi sit 25 minutes Kamal Chaban [facility] Start: 12-07-2021 End: 12-07-2021 ambulatory Kamal Chaban Other [facility] Other Start: 12-07-2021 Telephone encounter Kamal Chaban [facility] Start: 11-09-2021 ([facility] C Vac) [facility] Co vid Vaccine Courtney Ramant [facility] Start: 11-09-2021 End: 11-09-2021 ambulatory Courtney Fitt Other [facility] Other Start: 09-06-2021 End: 09-06-2021 ambulatory Kamal Chaban Other [facility] Other Start: 09-06-2021 Office outpatient vi sit 25 minutes Kamal Chaban [facility] Start: 07-26-2021 Telephone encounter Kamal Chaban [facility] Start: 07-23-2021 Office outpatient ne w 45 minutes Kamal Chaban [facility] Procedures Date Procedure Procedure Detail Performing Clinician Start: 11-11-2023 XR SCOLIOSIS 2 VIEW (NON EOS) MARYANN RUBALCAVA Start: 11-03-2023 Repair of left ingui nal hernia using surgical mesh DO Josh BunCarnet de Mode Work Phone: Start: 08-11-2023 X-ray of cervical spine DO [...] spine DO Josh Bunting Work Phone: Start: 07-31-2021 Colonoscopy Maryann freeman MD Work Phone: Plan of Treatment Date Care Activity Detail Author Start: 07-31-2031 Screening for malign ant neoplasm of colon [facility] Start: 11-11-2029 DTaP/Tdap/Td Vaccine s (2 - Td or Tdap) DTaP/Tdap/Td Vaccines (2 - Td or Tdap) [facility] Start: 11-11-2023 End: 11-11-2024 MR Cervical spine WO contrast MR cervical spine wo IV contrast Imaging Routine Cervical myelopathy (CMS/HCC) Expected: 11/11/2023, Expires: 11/11/2024 [facility] Work Phone: Comment on above: Expected: 11/11/2023 , Expires: 11/11/2024 Start: 11-11-2023 End: 11-11-2024 X-ray scoliosis 2 View (NON EOS) [facility] Service Area Work Phone: Comment on above: Expected: 11/11/2023 , Expires: 11/11/2024 Start: 11-03-2023 [facility] Start: 11-03-2023 [facility] Start: 10-02-2023 Repair of left ingui nal hernia using surgical mesh OR Inguinal Hernia Repair W/Mesh Graft (Left) [facility] Start: 10-02-2023 End: 10-02-2023 [facility] Start: 06-27-2023 Influenza vaccination [facility] Start: 03-26-2023 End: 05-26-2023 Comprehensive metabolic 2000 panel - Serum or Plasma [facility] Work Phone: Comment on above: Expected: 03/26/2023 , Expires: 05/26/2023 Start: 10-27-2022 DEPRESSION ASSESSMENT DEPRESSION ASS ESSMENT [facility] Start: 01-04-2022 COVID-19 VACCINE (3 - Booster for Dereck series) COVID-19 VACCINE (3 - Booster for Dereck series) [facility] Start: 08-09-2020 Pneumococcal Vaccine : 65+ Years (2 - PCV) Pneumococcal Vaccine: 65+ Years (2 - PCV) [facility] Start: 08-09-2020 Pneumococcal Vaccine : Pediatrics (0 to 5 Years) and At-Risk Patients (6 to 64 Years) (2 - PCV) Pneumococcal Vaccine: Pediatrics (0 to 5 Years) and At-Risk Patients (6 to 64 Years) (2 - PCV) [facility] Start: 2013 PROSTATE CANCER SCREENING DISCUSSION PROSTATE CANCER SCREENING DISCUSSION [facility] Start: 2008 SHINGRIX VACCINE (1 of 2) SHINGRIX VACCINE (1 of 2) [facility] Start: 2008 Zoster Vaccines (1 of 2) Zoste r Vaccines (1 of 2) [facility] Start: 2003 COLOGUARD (FIT-DNA) COLOGUARD (FIT-D NA) [facility] Start: 2003 Colonoscopy COLONOSCOPY [facility] Start: 2003 COLORECTAL CANCER SCREENING COLORECTAL CANCER SCREENING [facility] Start: [address] COLONOGRAPHY [facility] Start: 2003 DIABETES SCREEN DIABETES SCREEN [facility] Start: 2003 FECAL OCCULT BLOOD FECAL OCCULT BLOO D [facility] Start: 2003 [facility] Start: 1993 LIPID SCREEN LIPID SCREEN [facility] Start: 1977 Urine microalbumin profile DTAP,TDAP,TD (1 - Tdap) [facility] Start: 1977 Urine screening for protein Diabetes: Urine Protein Screening [facility] Start: 1976 HEPATITIS C SCREENING HEPATITIS C [facility] Start: 1976 Hepatitis C screening Hepatitis C [facility] Start: 1976 HIV SCREENING HIV SCREENING [facility] Start: 1968 Diabetic foot examination Diabetes: Foot Exam [facility] Start: 1968 Glaucoma screening Diabetes: R etinopathy Screening [facility] Start: 1959 MMR Vaccines (1 of 1 - Standard series) MMR Vaccines (1 of 1 - Standard series) [facility] Start: 1958 Annual wellness visit Medicare Initial Physical (IPPE) [facility] Start: 1958 Hemoglobin A1c measurement Diabetes: Hemoglobin A1C [facility] Start: 1958 HIV screening HIV Screening [facility] Start: 1958 Lipid panel Lipid Panel [facility] Start: 1958 Screening for malign ant neoplasm of colon [facility] Patient Education [facility] Work Phone: Patient referral [facility] Work Phone: [facility] Immunizations Immunization Date Immunization Notes Care Provider Shannan canales 11-09-2021 COVID-19 (Moderna), Age 12+ DO Josh Melvin Work Phone: [facility] 11-09-2021 COVID-19 Moderna Courtney Espino Other [facility] 10-16-2021 influenza, injectabl e, quadrivalent, contains preservative Maryann Rubalcava MD Work Phone: [facility] Work Phone: 10-16-2021 influenza virus vaccine, unspecified formulation Maryann Rubalcava MD Work Phone: [facility] Work Phone: 01-04-2021 COVID-19 (J&J) DO Josh Melvin Work Phone: [facility] 01-04-2021 COVID-19 Vaccine Dereck - Documentation Purposes Only Kamal Chaban Other [facility] 08-18-2020 Seasonal, quadrivalent, recombinant, injectable influenza vaccine, preservative free Maryann Rubalcava MD Work Phone: [facility] 07-27-2020 influenza, seasonal, injectable Maryann Rubalcava MD Work Phone: [facility] 11-11-2019 tetanus toxoid, reduced diphtheria toxoid, and acellular pertussis vaccine, adsorbed Kamal Chaban Other [facility] Other 08-16-2019 influenza, seasonal, injectable, preservative free Maryann Rubalcava MD Work Phone: [facility] Work Phone: 08-09-2019 influenza, injectabl e, quadrivalent, preservative free Maryann Rubalcava MD Work Phone: [facility] 08-09-2019 pneumococcal polysaccharide vaccine, 23 valcheyanne Rubalcava MD Work Phone: [facility] 08-08-2019 pneumococcal polysaccharide vaccine, 23 valent Maryann Rubalcava MD Work Phone: [facility] Work Phone: 09-08-2018 influenza, injectabl e, quadrivalent, contains preservative Maryann Rubalcava MD Work Phone: [facility] 07-29-2017 influenza, injectable,quadrivalen t, preservative free, pediatric Kamal Chaban Other [facility] Other 10-14-2009 pneumococcal polysaccharide vaccine, 23 valcheyanne Rubalcava MD Work Phone: [facility] Work Phone: NEGATED: Highlighted row has not occurred!07-29-2017 influenza, injectable,quadrivalen t, preservative free, pediatric Ulyssessam Mariluz Other [facility] Other Payers Date Payer Category Payer Private Health Insurance 2022 Self-pay [id number] 2021 Medicare [id number] 2021 Medicare [id number] 2021 Medicare [id number] 2021 Medicare [id number] 1960 Unknown [id number] 2.16.840.1.851727.3.579.2.196 1960 Unknown [id number] 2.16.840.1.834528.3.579.2.196 1960 Unknown [id number] 2.16.840.1.456023.3.579.2.196 1958 Unknown [id number] 2.16.840.1.754593.3.579.2.196 1958 Unknown [id number] 2.16.840.1.208678.3.579.2.125 9 1958 Unknown [id number] 2.16.840.1.656200.3.579.2.125 9 1958 Unknown [id number] 2.16.840.1.221013.3.579.2.125 9 1960 Unknown [id number] 2.16.840.1.712351.3.579.2.125 9 1958 Unknown [id number] 2.16.840.1.470878.3.579.2.124 2 1960 Unknown [id number] 2.16.840.1.119610.3.579.2.124 2 Medicare Medicare [id number] Medicare MMO MCR Adv PFFS [id number] Medicare [facility] [id number] 501 [id number] Unknown [id number] 2.16.840.1.645198.3.579.2.531 Unknown [id number] 2.16.840.1.361364.3.579.2.531 Unknown [id number] 2.16.840.1.857340.3.579.2.531 Unknown [id number] 2.16.840.1.916144.3.579.2.531 Unknown [id number] 2.16.840.1.501278.3.579.2.531 Unknown [id number] 2.16.840.1.409271.3.579.2.531 Unknown [id number] 2.16.840.1.777262.3.579.2.531 Unknown [id number] 2.16.840.1.454905.3.579.2.531 Unknown [id number] 2.16.840.1.997931.3.579.2.531 Unknown [id number] 2.16.840.1.745463.3.579.2.531 Worker's Compensation [employer] [facility] [id number] Social History Date Type Detail Facility Sex Assigned At [facility] Other Start: 05-22-2021 End: 05-22-2021 Tobacco smoking status NHIS Smoker (finding) [facility] Start: 1960 Sex Assigned At Male [facility] Start: 03-26-2023 End: 11-03-2023 Tobacco smoking status NHIS Ex-smoker [facility] History of tobacco use Cigarette Smoker [facility] Start: 03-26-2023 End: 11-11-2023 Tobacco use and exposure Smokeless tobacco non-user [facility] Start: 03-26-2023 Alcohol intake Current drinke r of alcohol (finding) [facility] Start: 03-26-2023 [facility] Start: 1960 Sex Assigned At Not on file C [facility] Start: 11-11-2023 Tobacco smoking status SDIS Never smoked tobacco [facility] Work Phone: Start: 11-01-2023 End: 11-11-2023 Exposure to SARS-CoV-2 (event) Not sure [facility] Medical Equipment Procedure Code Equipment Code Equipment Origin al Text Equipment Identifier Dates [id number] Start: 08-14-2023 Goals Date Patient Goal Desired Activity /State Clinical Notes 04-17-2021 to 11-11-2023 Maryann Rubalcava MD - 11/11/2023 10:00 AM EST Note Date & Type Note Facility 11-11-2023 History of Present illness Narrative It was a pleasure to see Mr. Meier at the [facility] at [facility]. Patient is a 62-year-old male with prior history of anterior cervical surgery and lumbar fusion surgery who presents with us with both neck and back pain complaints. For his neck he reports that he is continue to have worsening neck pain issues over the last several years. He has noticed increasing trouble using his hands with opening jars tying his shoes and using utensils. His states that he he has complaints of her about difficulty using his hands. Regarding his back he has reported having worsening trouble with walking which is limited due to back pain and pain going down both legs. Leaning forward helps relieve some of the pain. He has also noticed having stooped forward posture that his says that is also worsening over time. Patient can walk close to a mile last year but is unable to walk now because of continued back pain and stooped forward posture. The pain is 7 /10. The pain is described as aching, burning, sharp, and stabbing and occurs all day. Symptoms are exacerbated by deep breathing and lying down. Factors which relieve the pain include ice and muscle relaxants Numbness and/or tingling - YES Weakness : YES Bladder/Bowel symptoms - NO The patient has tried medications (eg: gabapentin, NSAIDS and narcotics ) : Yes PT : Yes Date: 09/18 Pain Management with ESIs/selective nerve blocks - YES he is a NON-SMOKER and DIABETIC History of Depression : YES PRIOR SPINE SURGERY: YES Denies use of Aspirin, Coumadin, or Plavix or any other anticoagulants NARCOTICS for pain : NO Part of this patient s history is from personal review of the patient s previous charts. No past medical history on file. No current outpatient medications on file. Review of Systems : EXAM: There were no vitals filed for this visit. General: Well developed, awake/alert/oriented x3, no distress, alert and cooperative Skin: Warm and dry, no lesions, no rashes ENMT: Mucous membranes moist, no apparent injury, no lesions seen Head/Neck: Neck Supple, no apparent injury Respiratory/Thorax: Normal breath sounds with good chest expansion, thorax symmetric Cardiovascular: No pitting edema, no JVD Motor Strength: 5/5 Throughout all extremities Muscle Bulk: Normal and symmetric in all extremities Patient is stooped forward posture IMAGING: Imaging was personally reviewed with CT cervical spine showing corpectomy with plate spanning from C5-C7. The possible adjacent segment issue at the level of C7 and T1 which is very difficult to appreciate on noncontrast CT of the cervical spine. CT myelogram of the lumbar spine shows hardware spanning from L3-S1. No pseudoarthrosis is seen. Patient does have adjacent segment spinal stenosis at the level of L2-L3 and L1-L2. 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 ASSESSMENT AND PLAN: Patient 62-year-old male who presents with prior history of cervical and lumbar spine surgeries with both complaints of trouble using his hands which could be an underlying cervical myelopathy issue and continued issues with stooped forward posture, inability to walk for extended time, and continued back pain and bilateral lower extremity radicular issues related to both adjacent segment disease in the lumbar spine and also show a sagittal imbalance issue. We do need to get MRI of the cervical spine to evaluate for any possible underlying spinal cord compression. Patient's spinal cord stimulator is MRI compatible according to him now so we will order for it. Regarding his lumbar deformity patient is a 3 column osteotomy to realign his lumbar spine and decompress the adjacent segment causing spinal stenosis which required an extensive thoracolumbar reconstruction surgery. We would need to get scoliosis x-rays to determine upper instrumented and lower instrumented level for the patient. We will order those x-rays today after which we will come up with a plan for surgical intervention. Of note patient's heart rhythm stimulator extremely good on the CT of the lumbar spine showing very good bone quality. It was emphasized to the patient that if he does end up having spinal cord compression in the cervical spine we will treat that prior to treating his lumbar deformity. We also emphasized to the patient that he needs to keep up-to-date with his diabetes management with a goal of getting hemoglobin A1c less than 7.5 prior to surgery. He was also educated on continued his weight loss journey to optimize his preoperative health for achieving a good result after surgery. Patient is in agreement. All questions were answered. Maryann Rubalcava MD, [facility] Communications Advisor of Neurological Surgery [facility] [employer] Attending Surgeon Director - Minimally Invasive Spine Surgery [place], [place] Some of this note was completed using e[employer]en[employer] voice recognition technology and sometimes the software misinterprets words. This may include unintended errors with respect to translation of words, typographical errors or grammar errors which may not have been identified prior to finalization of the chart note. Please take this into account when reading this note documented in this encounter [facility] Work Phone: 10-14-2023 Evaluation note Encounter Date Diagnosis Assessment [...] lumbar region with neurogenic claudication (ICD-10 - M48.062) [facility] Other 12-05-2023 NoteProcedure Performed by: Savanna Mcclain M.D. Procedure: Placement of Yagomart Impulse Generator Battery under fluoroscopic guidance *Battery [...] by Johny MATUTE, Savanna Darden 09/30/23 13:12 [facility] 09-30-2023 NoteHistory of Present Illness The [...] signed by Savanna Mcclain MD 09/30/23 13:10 [facility] 09-16-2023 Evaluation note* Encounter Date Diagnosis [...] weeks. Aug, Lumbar radiculopathy (ICD-10 - M54.16) [facility] Other 08-17-2023 Evaluation note* Encounter Date Diagnosis Assessment Notes Treatment Notes Treatment Clinical Notes May, Gastroesophageal ref lux disease, unspecified whether esophagitis present (ICD-10 - K21.9) [facility] Other 05-31-2023 NoteHNO ID: [id number] Author: Donny Peralta APRN.NETWORK SUPPORT MANAGER Service: ? Author Type: Nurse Practitioner Type: [...] 2 to 3 weeks time. Donny Peralta APRN.NETWORK SUPPORT MANAGER CC: Josh Melvin [facility]05-31-2023 History of Present illness Narrative* Donny Peralta APRN.ALEX - 03/26/2023 11:14 AM EDT Mr. Meier [...] 2 to 3 weeks time. Donny Peralta APRN.ALEX CC: Josh Melvin DO [facility]* Encounter Date Diagnosis Assessment Notes Treatment Notes Treatment Clinical Notes Mar, Obstructive sleep ap dee (ICD-10 - G47.33) Please get a compliance report now and before next visit Mar, Gastroesophageal ref lux disease, unspecified whether esophagitis present (ICD-10 - K21.9) 21 Dc, 2022 Lung nodule (ICD-10 - R91.1) [facility] Other 03-15-2022 Evaluation note* Encounter Date Diagnosis [...] be after his CT in 1 year [facility] Other 01-14-2022 Evaluation note* Encounter Date Diagnosis Assessment Notes Treatment Notes Treatment Clinical Notes Oct, Encounter for immunization (ICD-10 - Z23) Patient presents for COVID-19 vaccination BOOSTER. Pre-screening form answers evaluated with patient. Patient denies current illness or allergic reaction to component of COVID-19 vaccine. Patient provided with current copy of EUA. [facility] Other 09-27-2021 Evaluation note* Encounter Date Diagnosis Assessment Notes Treatment Notes Treatment Clinical Notes Jun, Lung nodule (ICD-10 - R91.1) Jun, Chronic cough (ICD-1 0 - R05) Jun, Obstructive sleep ap dee (ICD-10 - G47.33) Jun, Gastroesophageal ref lux disease, unspecified whether esophagitis present (ICD-10 - K21.9) [facility] Other 06-24-2021 NotePatient: KOKO MEIER Age: 60 years Sex: Male : 1960 Associated Diagnoses: None Author: Kwame Yang DO Discharge Information Discharge Summary Information: Admit [...] mg, 1 tab(s), Oral, BID, 0 Refill(s) [facility]:Result Comment: Electronically Signed By: Kwame Yang DO\radha\Date and Time Signed: 04/19/21 12:56 EDT 04-17-2021 [id number]:[id number] Center[facility] noteNo Application [facility]Noal[facility] Other Evaluation noteNort [employer] Other Evaluation noteNo assessment information available [facility] Work Phone: Evaluation note* Diagnosis Laryngeal candidiasis- Primary Other candidiasis of other specified sites Glossitis Oral candidiasis Candidiasis of mouth Hoarseness of voice Dysphonia History of alcohol abuse Nondependent alcohol abuse, in remission [facility] Diagnosis Cervical myelopathy (CMS/HCC)- Primary Cervical spondylosis with myelopathy Sagittal plane imbalance Other curvatures of spine associated with other conditions 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 Lumbar stenosis with neurogenic claudication documented in this encounter [facility] Work Phone: History general Narrative - Reported* Type Description Date [...] finger 10/2019 Hospitalization History see sx history [facility] Other History general Narrative - ReportedNort [facility] Other [facility] general Narrative - Reported* Type Description Date Medical History Diabetes Medical History Arthritis Medical History Asthma Medical History Hyperlipidemia Medical History Hypertension Medical History Depression Medical History Anxiety Medical History high cholesterol Medical History obesity Medical History stimulator in low back Surgical History Procedure:small bowel resection 2006 Surgical History Procedure:Back surgery 2006 Surgical History Procedure:Carpal tunnel release 2003 Surgical History Procedure:eye exam 2013 Surgical History extraction of 14 teeth 2016 Surgical History extraction of 14 teeth 08/2017 Surgical History neck Surgical History reattached tip of right little finger 10/2019 Hospitalization History see sx history [facility] Other Hospital Discharge instructions Additional Instructions Please call Dr. Becker' office to reschedule your surgery.[facility] Work Phone: Hospital Discharge instructions Additional Instructions 1. No driving if taking narcotic pain medication. 2. No lifting more than 20 pounds for 3 weeks. 3. May shower.[facility] Work Phone: Progress note Author Yogesh Becker [facility] October 02, 2023 9:46am Note Date/Time October 02, 2023 9 :46am [facility] [address] [place] [address] Progress Note Signed Patient: Koko Meier MR#: [id number] : 1960 Acct:[id number] Age/Sex: 62 / M Adm Date: 3 Loc: [place] Room: Type: [facility] Attending Dr: Yogesh Becker MD Copies to: ~ Date of Service: 10/02/2023 Progress Narrative Note PROGRESS NOTE Progress Note: Patient's tox screen today is positive for cocaine. Surgery will be canceled. Patient is told to call the office this afternoon to reschedule the surgery. Documented By: Yogesh Becker MD 10/02/2345 Signed By: <Electronically signed by MD Yogesh Becker> 10/02/23 0946 [facility] Work Phone: Summary Purpose Family History [...] and thoracic pain Hernia Hernia inguinal hernia Chief Complaint Cervical and thoraci c pain Hernia Hernia inguinal hernia inguinal hernia Reason for Referral Specialty Diagnoses / Procedures Referred By Contac t Referred To Contact Radiology Diagnoses Cervical myelopathy (CMS/HCC) Procedures MR cervical spine [place] [id number] Department [place] [address] Referral ID Status Reason Start Date Expiration Date Visits Requested Visits Authorized Pending Review Perform Procedure 11/11/2023 11/10/2024 1 1 Specialty Diagnoses / Procedures Referred By Contac t Referred To Contact Radiology Diagnoses Sagittal plane imbalance Procedures X-ray scoliosis 2 View (NON EOS) [place] [address] [address] Department [place] [address] Referral ID Status Reason Start Date Expiration Date Visits Requested Visits Authorized Authorized Perform Procedure 11/11/2023 11/10/2024 1 1 Reason surgical consult Diagnosis 1 Lumbar myelopathy (G 95.9) Referral Organization [facility]urgery Referring Provider First Name Kairme Referring Provider Last Name Marleni Referring Provider Specialty Nurse Pract itioner Referred Organization [facility] Referred Provider MARYANN RUBALCAVA Referred Address [address] [place] [address] [place],[address] Referred Provider Specialty Neurosurgery Referral Priority Routine General Notes Juana Scanlon 03:14:14 PM >received today, holding referral until office note is locked Juana Scanlon 10/16/2023 08:38:30 AM >note not locked yet Reason evaluate and treat Diagnosis 1 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) Referral Organization [facility] urosurger Referring Provider First Name Karime Referring Provider Last Name Marleni Referring Provider Specialty Nurse Pract itioner Referred Organization [facility] Referred Address [address],[place], [place],[address] Referred Provider Specialty Physical The rapist Referral Priority Routine Additional Source Comments (unrecognized sect ion and content) No Status Records FoundNo Status Records FoundNo Status Records FoundNo Status Records FoundNo Status Records FoundNo Status Records Found INFORMATION SOURCE (unrecogn ized section and content) DATE CREATED AUTHOR 04/27/2021 John Lopes [facility] DATE CREATED AUTHOR AUTHOR'S ORGANIZ ATION 04/15/2023 [facility] DATE CREATED AUTHOR AUTHOR'S ORGANIZ ATION 11/07/2023 [facility] DATE CREATED AUTHOR AUTHOR'S ORGANIZ ATION 11/10/2023 [facility] EP[facility] DATE CREATED AUTHOR AUTHOR'S ORGANIZ ATION 11/14/2023 [facility] DATE CREATED AUTHOR AUTHOR'S ORGANIZ ATION 11/16/2023 [facility] REASON FOR VISIT (unrecogniz ed section and content) Reason Comments Mouth lesion on left side Specialty Diagnoses / Procedures Referred By Contact Referred To Contact Ent - Otolaryngology / ENT-OTOLARYNGOLOGY Diagnoses Mouth Lesion on Left side of jaw Procedures NEW [facility] PATIENT Josh Melvin DO [address] [place] [address] Donny Peralta, [employer] [address] [place] [address] Referral ID Status Reason Start Date Expiration Date V isits Requested Visits Authorized [id number] Authorized 03/25/2023 10/26/2023 99 99 Reason Comments Neck Pain Back Pain Care Teams (unrecognized sec tion and content) Team Status: Inactive Member Role Status Dates Josh Melvin , DO Primary Care Provider, Tino peter Active Team Status: Active Member Role Status Dates Josh Melvin , DO Primary Care Provider Active Team Status: Inactive Member Role Status Dates Joshana Melvin , DO Primary Care Provider Active Flip Diamond Attending Provider Active Team Status: Inactive Member Role Status Dates Josh Melvin , DO Primary Care Provider Active Yunier Ariza MD Attending Provider Active Team Status: Inactive Member Role Status Dates Joshana Velascoting , DO Primary Care Provider Active Mariel Mcgraw MD Attending Provider Active Team Status: Inactive Member Role Status Dates Josh Melvin , DO Primary Care Provider Active Errol Humphrey MD Attending Provider Active Team Status: Inactive Member Role Status Dates Josh Bunting , DO Primary Care Provider Active Nery Casanova [facility] Emergency Provider Active Team Status: Inactive Member Role Status Dates Josh Bunting , DO Primary Care Provider Active Savanna Mcclain MD Attending Provider Active Team Status: Inactive Member Role Status Dates Josh Bunting , DO Primary Care Provider Active Yogesh Becker MD Attending Provider Active Goals (unrecognized [...] or prosecute any alcohol or drug abuse patient.[facility] FOR RECORDS PERTAINING TO PATIENTS WHO ARE [...] BE BASED ON THE PRIMARY CLINICAL RECORDS. [facility]. provides no warranty or guarantee of the accuracy or completeness of information in this document.
[2023-11-17 07:10] VITALS: BP 147/70; PULSE 107; RESP 16; TEMP 36.3; O2SAT 95
[2023-11-17 07:12] LABS: Glucometer 238 mg/dL (74-106)
[2023-11-17 07:56] VITALS: BP 139/74; PULSE 102; RESP 18; O2SAT 90
[2023-11-17 07:58] VITALS: BP 136/64; PULSE 107; RESP 18; O2SAT 90
[2023-11-17] MEDS: BUPIVACAINE HCL 0.25% PF 25 MG/10 ML VIAL 7 ML INJ (08:02)
--- NOTE | 2023-11-17 08:02 | W.PM.PROCNOT ---
Date of procedure: 11/17/23 Pre-op diagnosis: Cervical spondylosis Post-op diagnosis: same as pre-op Procedure: Procedure: Bilateral C3-4, 4-5 medial branch block Medications: Bupivacaine 0.25% 6cc The patient was seen and examined in the preoperative holding area.? The informed consent was obtained and placed on the chart.? The patient was brought to the medical procedure unit and placed in the prone position.? A timeout was completed verifying correct patient, procedure site, positioning, plan, and special equipment.? Using aseptic technique, the needle was placed at left C3.? Under direct fluoroscopic visualization, a Quincke tip needle was advanced to the midpoint of the waist of the articular pillar at the respective medial branch segment. The above-mentioned injectate was placed in a 1 mL aliquot proceeded by negative aspiration.? The needle was removed.? The procedure was completed at all left C4, 5. The same procedure, at the same levels, was then completed on the right side. Insertion site was covered.? Patient was taken to the postprocedural recovery area and monitored for an appropriate length of time before found suitable for discharge in the accompaniment of a responsible adult. Anesthesia: Local Surgeon: Savanna Mcclain Pathology: none sent Condition: stable Disposition: no change
[2023-11-17] MEDS: LIDOCAINE HCL 2% PF 100 MG/5 ML VIAL 2 ML INJ (08:03)
== END 2023-11-17 08:06 | disposition home or self-care (01) ==
PROVIDERS: PCP Family Medicine; Visit Provider Anesthesiology
DX: M47.812 Spondylosis without myelopathy or radiculopathy, cervical region (principal); Z79.4 Long term (current) use of insulin
CPT/HCPCS: 36415; 64490; 64491; 82948; J0665

== ENCOUNTER 2023-11-27 08:08 | Outpatient (OUT) | payer MEDICARE, SELFPAY ==
--- NOTE | 2023-11-27 08:24 | PM.CN ---
Consult Note: HPI Data of Consult Patient: known to practice within the last 3 years Requesting Physician: Rosemary Kwon NP Primary Care Provider: JOSH MELVIN Consult Narrative Reason for consult: f/u Narrative: Koko Hernandez a pleasant 63 year old male presents for evaluation of chronic pain. Today pain in neck and right arms/fingers most bothersome. Patient reporting pain 4/10 achy sharp with numbness tingling in right neck, chest, and fingers. Patient significant relief with recent bilateral C3/4 C4/5 facet medial branch block #1, 80% improvement immediately following and days after the injection in the axial neck. cc:: CC: Rosemary Kwon NP Review of Systems ROS Status of ROS 10 or more systems reviewed and unremarkable except as noted in history and below Musculoskeletal Reports: back pain and neck pain PFSH PFSH Medical History Fusion of spine, cervical region ?M43.22 - Fusion of spine, cervical region (ICD-10) Lumbar post-laminectomy syndrome ?M96.1 - Postlaminectomy syndrome, not elsewhere classified (ICD-10) Anxiety ?F41.9 - Anxiety disorder, unspecified (ICD-10) HTN (hypertension) ?I10 - Essential (primary) hypertension (ICD-10) High cholesterol ?E78.00 - Pure hypercholesterolemia, unspecified (ICD-10) Diabetes ?E11.9 - Type 2 diabetes mellitus without complications (ICD-10) Diverticulosis ?K57.90 - Diverticulosis of intestine, part unspecified, without perforation or abscess without bleeding (ICD-10) Surgical History History of shoulder surgery ?Z98.890 - Other specified postprocedural states (ICD-10) History of colon resection ?Z90.49 - Acquired absence of other specified parts of digestive tract (ICD-10) History of lumbar surgery ?Z98.890 - Other specified postprocedural states (ICD-10) Social History Gender Identity: male Meds Home Medications and Allergies Home Medications Medication Instructions Recorded Confirmed Type atorvastatin 40 mg tablet 40 mg PO DAILY 08/14/23 11/17/23 History buspirone 30 mg tablet 30 mg PO TID 08/14/23 11/17/23 History celecoxib 200 mg capsule 200 mg PO DAILY 08/14/23 11/17/23 History cyclobenzaprine 10 mg tablet 10 mg PO TID 08/14/23 11/17/23 History duloxetine 60 mg capsule,delayed 60 mg PO BID 08/14/23 11/17/23 History release empagliflozin 10 mg tablet 10 mg PO DAILY 08/14/23 11/17/23 History (Jardiance) gabapentin 600 mg tablet 600 mg PO BID 08/14/23 11/17/23 History insulin aspart U-100 100 unit/mL 1 sliding scale dose subcut 08/14/23 11/17/23 History (3 mL) subcutaneous pen (Novolog USEASDIRECTD FlexPen U-100 Insulin aspart) insulin degludec 200 unit/mL (3 20 unit subcut DAILY 08/14/23 11/17/23 History mL) subcutaneous pen (Tresiba FlexTouch U-200 insulin) lisinopril 20 1 tab PO DAILY 08/14/23 11/17/23 History mg-hydrochlorothiazide 12.5 mg tablet metformin 1,000 mg tablet 1,000 mg PO DAILY 08/14/23 11/17/23 History omeprazole 40 mg capsule,delayed 40 mg PO DAILY 08/14/23 11/17/23 History release gabapentin 600 mg tablet 1,200 mg (2 x 600 mg) PO TID #540 09/08/23 11/17/23 Rx tabs Allergies Allergy/AdvReac Type Severity Reaction Status Date / Time No Known Drug Allergies Allergy Verified 11/17/23 07:16 Exam Constitutional Documenting provider has reviewed patient's vital signs: yes Common normals: no apparent distress, oriented x3, healthy appearing, alert and well nourished General appearance: cooperative [facility] Common normals: normocephalic, hearing grossly normal bilaterally and moist oral mucous membranes Head and scalp: normocephalic Eye Common normals: PERRL Pupil: PERRL Neck & C-Spine Common normals: full ROM General: normal visual inspection Cervical spine: cervical ROM abnormal, pain with cervical ROM, cervical spine tenderness and paracervical muscle tenderness Other: positive facet loading bilaterally sensation intact in BUE, strength 5/5 negative hoffmans reports pain radiating into right chest and right hand/fingers Chest Common normals: inspection of chest normal Respiratory Common normals: normal respiratory effort, no retractions and no use of accessory muscles Neuro Common normals: oriented x3, CN's II-XII intact bilaterally, moves all extremities, no focal motor deficits, no sensory deficits noted and deep tendon reflexes 2+ bilaterally Sensorium/orientation: alert Motor exam: strength 5/5 throughout and no movement abnormalities noted Psych Common normals: mental status grossly normal, thought process normal, cooperative, affect normal, speech normal and activity/motor behavior normal Speech: normal speech Thought process: normal thought process Results Additional Findings Additional findings: I have checked an [place]AR[place] report on this patient today and there are no aberrancies noted in the prescribing history.?? A drug screen was completed and reviewed within the last year, and if there has not been a drug screen completed we ordered one today to monitor higher risk, state monitored pain medication use. As part of providing excellent, safe, comprehensive care, the following was completed at our patient's visit: 1. A medication reconciliation and review to ensure accurate knowledge of current/active medications, including asking our patients to inform us about any [id number] medications or herbal remedies/nutritional supplements/alternative remedies. 2. A review to specifically ensure our patients have had annual screening for: elevated body mass index (BMI), tobacco use, screening for depression, and screening for unhealthy alcohol use. When screening is concerning, patients are provided with education and the specific recommendation to discuss the concerning health issue and treatment options with their primary care provider. Assessment and Plan Assessment and Plan (1) Cervical spondylosis: Assessment and Plan: The patient has had over 3 months of moderate to severe neck pain with functional impairment and inadequate response to conservative care including NSAIDS (unless there are contraindication such as concurrent blood thinners), multiple oral or topical pain medications, and home exercise program/physical therapy.? Patient has completed >6 weeks of guided home exercise program and/or formal physical therapy program without relief of their symptoms.? I have reviewed the imaging of the cervical spine and no red flags were identified (2) Cervical post-laminectomy syndrome: (3) Cervical stenosis of spinal canal: (4) Cervicalgia: Plan Right C3/4 C4/5 TFESI under fluoroscopy with Dr Mcclain, risks vs benefits discussed. will proceed with bilateral C3/4 C4/5 facet medial branch block #2 after resolution of radicular symptoms. continue current medications, tolerating well without side effects continues to find functional benefit f/u with neurosurgery as planned for lumbar spine f/u 1-2 weeks after injection
== END 2023-11-27 08:09 | disposition home or self-care (01) ==
LOC: PM 08:14
PROVIDERS: PCP Family Medicine; Visit Provider Nurse Practitioner
DX: M47.812 Spondylosis without myelopathy or radiculopathy, cervical region (principal); M96.1 Postlaminectomy syndrome, not elsewhere classified; M48.02 Spinal stenosis, cervical region; M54.2 Cervicalgia
CPT/HCPCS: G0463

== ENCOUNTER 2023-12-08 08:21 | Day surgery (SDC) | payer MEDICARE, SELFPAY ==
--- OUTSIDE RECORDS SUMMARY | 2023-12-08 08:25 | XMS_ITS | CCD ---
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 Name Role Phone Mariel Mcgraw Unavailable Courtney Espino Unavailable Bunting, DO Josh Primary Care Provider Flip Diamond Attending Provider Alexis Abdi Unavailable Bunting, DO Josh Primary Care Provider Bunting, DO Josh Attending Provider MD Yunier Ariza Attending Provider [phone] Bunting, DO Josh Primary Care Provider MD Mariel Mcgraw Attending Provider Bunting, DO Josh Primary Care Provider MD Mariel Mcgraw Attending Provider MD Errol Humphrey Attending Provider Unavailable Primary Care Provider Unavailabl e DONNY PERALTA Attending Unavailable BUNTING, JOSH RAY Referring Unavailable DONNY PERALTA Referring Unavailable Bunting, DO Josh Primary Care Provider Bunting, DO Josh Attending Provider Bunting, DO Josh Primary Care Provider Edilberto RELIGIOUS EDUCATOR-BC Nery Hankins Emergency Provider [phone] Bunting, DO Josh Attending Provider [phone] MD Johny [facility] Attending Provider Bunting, DO Josh Primary Care Provider Bullimore, RELIGIOUS EDUCATOR-BC Nery E Emergency Provider Bunting, DO Josh Attending Provider MD Savanna Mcclain Attending Provider MD Yogesh Becker Attending Provider [phone] Karime Nguyen Unavailable Bunting, DO Josh Primary Care Provider YOGESH MORRIS Attending Unavailable BUNTING, JOSH R Referring Unavailable IMTIAZ ZAIDI Attending Unavailable KARIME NGUYEN Referring Unavailable FEROZ PATEL Attending Unavailable BECKERYOGESH RODRIGUEZ Attending Unavailable Unavailable Primary Care Provider Unavailabl e MARYANN RUBALCAVA Attending Unavailable MARYANN RUBALCAVA Referring Unavailable Giedraitis , Andrius Adelso Attending Unavailable Giedraitis , Andrius Adelaautedison Attending Unavailable Giedraitis , Andrius Vchepeautedison Attending Unavailable Giedraitis , Andrius Vytautedison Attending Unavailable Giedraitis , Andrius Vytautedison Attending Unavailable Bunting, DO Josh Primary Care Provider [phone] Bunting, DO Josh Attending Provider [phone] MD Oliver Kerr Referring Provider MD Oliver Kerr Attending Provider Bunting, Josh Primary Care Unavailable Yogesh Becker Admitting Unavailable Yogesh Becker Attending Unavailable Bullimore, Nery E Admitting Unavailable Bullimore, Nery E Attending Unavailable Bunting, Josh Primary Care Unavailable Bunting, Josh Primary Care Unavailable Chaban, Kamal Admitting Unavailable Chaban Kamal Attending Unavailable Giedraitis, Andrius Admitting Unavailable Giedraitis, Andrius Attending Unavailable Bunting, Josh Primary Care Unavailable Bunting, Josh Admitting Unavailable Bunting, Josh Primary Care Unavailable Bunting, Josh Attending Unavailable Bunting, Josh Primary Care Unavailable Oliver Kerr Admitting Unavailable Oliver Kerr Attending Unavailable Bunting, Josh Primary Care Unavailable Oliver Kerr Referring Unavailable Bunting, Josh Attending Unavailable Bunting, Josh Admitting Unavailable Bunting, Josh Primary Care Unavailable Bunting, Josh Attending Unavailable Bunting, Josh Admitting Unavailable Hedaya, Errol Feng Admitting Unavailable Hedaya, Errol Feng Attending Unavailable Bunting, Josh Primary Care Unavailable Bunting, Josh Primary Care Unavailable Becker, Yogesh Admitting Unavailable Becker, Yogesh Attending Unavailable Becker, Yogesh Admitting Unavailable Becker, Yogesh Attending Unavailable Bunting, Josh Primary Care Unavailable Bunting, Josh Primary Care Unavailable Becker, Yogesh Admitting Unavailable Becker, Yogesh Attending Unavailable Medications Current Medications Medication Drug Class(es) Dates Sig (Normalized) Sig (Original) acetaminophen 325 mg / HYDROcodone bitartrate 5 mg oral tablet (3 sources) Opioid Agonist Start: 11-03-2023 take 1 tablet [...] 11:00pm busPIRone hydrochloride 30 mg oral tablet (20 sources) Start: 09-23-2023 take 30 mg by [...] 2023 11:33am take 1 tablet by twyla every twelve hours busPIRone HCl 30 MG [...] Comment on above: take 1 capsule by [facility] twice a day Oral for 28 Days clotrimazole 10 mg oral lozenge (1 source) Azole Antifungal Start: End: clotrimazole (MYCELEX) 10 mg bud Use 1 Bud as instructed four times daily for 14 days. 56 tablet 0 03/26/2023 04/09/2023 Active Comment on above: Use 1 Bud as inst ructed four times daily for 14 days. cyclobenzaprine hydrochloride 10 mg oral tablet (10 sources) Muscle Relaxant Start: take 10 mg by mouth three times daily Cyclobenzaprine Active 10 MG PO Three times daily September 23, 2023 12:00am take 1 tablet by [facility] every twenty-four hours Cyclobenzaprine HCl 10 MG 1 tablet at bedtime as needed Orally Once a day Active Comment on above: Take 10 mg by mouth three times daily. docusate sodium 100 mg oral capsule (1 [...] Active Start: 04-20-2019 take 1 capsule by [facility] twice daily Duloxetine (Cymbalta) 60 mg Capsule,Delayed Release(Dr/Ec) Active 60 MG PO Twice daily April 19, 2019 11:00pm Start: 04-20-2019 Duloxetine (Cy mbalta) 60 mg Capsule,Delayed Release(Dr/Ec) Active 30 MG PO Twice daily April 20, 2019 12:00am take 1 capsule by [facility] every twenty-four hours DULoxetine HCl 60 MG 1 capsule Orally Once a day Active Comment on above: 1 capsule q 12 HR. empagliflozin 10 mg oral tablet (8 sources) Sodium-Glucose Cotransporter 2 Inhibitor Start: 07-01-20 take 1 tablet by mouth once daily in the morning Empagliflozin (Jardiance) 10 mg Tablet Active 10 MG PO Every morning September 23, 2023 12:00am empagliflozin (J ARDIANCE) 10 mg tablet Take 10 mg by mouth. 0 Active Comment on above: Take 10 mg by mouth. FreeStyle René reader (FreeStyle René 2 [place]) misc (1 source) Start: 07-25-2023 End: 07-24-2024 FreeStyle René reader (FreeStyle René 2 [place]) misc 1 each by Does not apply route every 14 (fourteen) days. 0 07/25/2023 07/24/2024 Active gabapentin 600 mg oral tablet (20 sources) Anti-epileptic Agent Start: 09-23-2023 take 1200 mg by mouth three times daily Gabapentin Active 1200 MG PO Three times daily September 23, 2023 12:00am Start: 04-20-2019 take 2 capsules by [facility] three times daily gabapentin (Neurontin) 600 mg [...] on above: Take 1 capsule by mo [facility]. hydroCHLOROthiazide 12.5 mg / lisinopril 20 mg oral tablet (19 sources) Thiazide Diuretic, Angiotensin Converting Enzyme Inhibitor Start: 09-23-20 take 1 tablet by mouth once daily in the morning Lisinopril-[place] chlorothiazide Active 1 TAB PO Every morning September 23, 2023 12:00am Start: 04-03-2021 lisinopriL-hyd rochlorothiazide 10-12.5 mg tablet 1 (one) time each day at the same time. 0 04/03/2021 Active [facility] Lisinopril-hydroCHLOROthiazide 10-12.5 M G take [...] time. hydrOXYzine pamoate 25 mg oral capsule (8 sources) Antihistamine Start: take 25 mg by [...] Insulin) 100 unit/mL (3 mL) insulin pen (6 sources) Start: 09-23-2023 inject 1 dose by [...] U-100) 100 unit/mL (3 mL) Insulin Pen (6 sources) Start: 02-26-2021 Insulin Deglud ec (Tresiba [...] Active naproxen sodium 220 mg oral capsule (4 sources) Nonsteroidal Anti-inflammatory Drug Start: 10-23-2023 take 2 capsules by mouth every twelve hours Naproxen Sodium (Aleve) 220 mg Capsule Active 440 MG PO Q12H October 23, 2023 12:00am omeprazole 40 mg delayed release oral capsule (18 sources) Proton Pump Inhibitor Start: 09-23-2023 take 40 mg by mouth once daily in the morning Omeprazole Active 40 MG PO Every morning September 23, 2023 12:00am tamsulosin hydrochloride 0.4 mg oral capsule (3 sources) alpha-Adrenergic Evi Start: 11-03-2023 take 1 capsule by mouth once daily Tamsulosin (Flomax) 0.4 mg Capsule Active 0.4 MG PO Daily November 03, 2023 12:00am Completed/Discontinued Medications Medication Drug Class(es) Dates Sig (Normalized) Sig (Original) acetaminophen 325 mg / oxyCODONE hydrochloride 5 mg oral tablet (7 sources) Opioid Agonist Start: 07-29-2023 End: 09-23-2023 take 1 tablet by mouth every six hours Oxycodone-Acetamin ophen Discontinued 1 TAB PO Q6H 12 July 29, 2023 September 23, 2023 11:37am ARIPiprazole 15 mg oral tablet (13 sources) Atypical Antipsychotic Start: 04-20-2019 End: 02-26-2021 take 1 tablet by mouth once daily Aripiprazole (Abilify) 15 mg Tablet Discontinued 15 MG PO Daily April 19, 2019 11:00pm February 26, 2021 4:36pm buprenorphine 0.15 mg buccal film (13 sources) Partial Opioid Agonist Start: 04-20-2019 End: 02-26-2021 Buprenorphine Hcl (Belbuca) 150 mcg Film Discontinued 150 MCG BUCCAL Q12H April 19, 2019 11:00pm February 26, 2021 4:37pm diazePAM 5 mg oral tablet (8 sources) Benzodiazepine Start: 07-29-2023 End: 09-23-2023 take 5 mg by mouth three times daily Diazepam Discontinued 5 MG PO Three times daily 12 July 28, 2023 11:00pm September 23, 2023 11:41am ibuprofen 400 mg oral tablet (13 sources) Nonsteroidal Anti-inflammatory Drug Start: 04-20-2019 End: 09-23-2023 take 400 mg by mouth every six hours Ibuprofen Discontinued 400 MG PO Q6H April 19, 2019 11:00pm September 23, 2023 11:37am insulin isophane, human 100 unt/ml injectable suspension (13 sources) Start: 04-20-2019 End: 02-26-2021 Insulin Nph [...] insulin, regular, human 100 unt/ml injectable solution (13 sources) Insulin Start: 04-20-2019 End: 09-23-2023 Insulin Regular Human (Novolin R Regular U-100 Insuln) 100 unit/mL Solution Discontinued 0 .ROUTE .COMPLEX April 19, 2019 11:00pm September 23, 2023 11:42am 5 units in am 15 UNITS AT NOON 30 units in pm PER PT DOSAGE REPORT perphenazine 4 mg oral tablet (13 sources) Phenothiazine Start: 02-26-2021 End: 05-22-2021 take [...] or gangrene, not specified as recurrent] Onset: 11-03-2023 Episodic Alcohol-related disorders (2 sources) History of alcohol abuse; Translations: [Alcohol abuse, in remission] Onset: 03-26-2023 Chronic Anxiety disorders (1 source) Anxiety; Translations: [Anxiety disorder, unspecified] Onset: 02-28-2023 11-10-2023 Chronic Cardiac dysrhythmias (13 sources) Palpitations; Translations: [Palpitations] 02-26-2021 Episodic Diabetes [...] pulmonary nodule] Episodic Other lower respiratory disease (13 sources) Solitary nodule of lung; Translations: [Solitary [...] unspecified] 11-11-2023 Chronic Other nervous system disorders (3 sources) Acute postoperative pain; Translations: [Other acute postprocedural pain] 11-03-2023 Episodic Other nervous system disorders (1 source) Tremor, unspecified; Translations: [Tremor, unspecified] Onset: 11-24-2023 Episodic Other nutritional; endocrine; and metabolic disorders [...] apnea G47.33] Onset: 07-23-2021 Resolved: 04-16-2022 Chronic Residual codes; unclassified (1 source) Other amnesia; Translations: [Other amnesia] Onset: 11-25-2023 Episodic Spondylosis; intervertebral disc disorders; other back problems (20 sources) Disorder of lumbar disc; 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, lumbar region] Onset: 12-22-2018 Chronic Unclassified (1 source) Encounter for preprocedural laboratory examination; Translations: [Encounter for preprocedural laboratory examination] Onset: 10-23-2023 Unclassified (1 source) Other intervertebral disc degeneration, [...] sources) Long-term current use of insulin; Translations: [USP (current) use of insulin] Episodic Other connective [...] Dyspnea, unspecified Onset: 09-06-2021 Resolved: 09-06-2021 Episodic Spondylosis; intervertebral disc disorders; other back problems (20 sources) Lumbago co-occurrent with right-side sciatica; Translations: [Lumbago with sciatica, right side] Onset: 02-28-2023 08-06-2023 Episodic Results Test Name Value Interpretation Reference Range Facility CT head/brain wo [place] 11-25 CT head/brain wo [address] [place] [address] CT Scan Report Signed Patient: Koko Meier MR#: [id number] : 1960 Acct:[id number] Age/Sex: 62 / M ADM Date: 11/25/23 Loc: CT Room: Type: [facility] Attending Dr: Oliver Kerr MD Copies to: Oliver Kerr MD Ordering Provider: Oliver Kerr MD Date of Service: 11/25/23 CT/CT head/brain wo con: R41.[address] TECHNIQUE: Contiguous axial imaging of the head. The CT exam was performed using one or more the following dose reduction techniques: Automated exposure control, adjustment of the MA and/or Kv according to patient size, or use of the iterative reconstruction technique. COMPARISON: None HISTORY: Hand tremors. VENTRICLES: Within normal limits ATROPHY: Mild atrophy BRAIN PARENCHYMA: Decreased density of the white matter is most consistent with chronic small vessel disease. HEMORRHAGE: None HERNIATION: No mass effect or herniation INFARCTION: No recent vascular distribution infarction is seen. EXTRA-AXIAL FLUID COLLECTIONS None MIDBRAIN: Unremarkable JESSI: Unremarkable MEDULLA: Unremarkable SINUSES: Unremarkable ORBITS: Grossly unremarkable MASTOIDS: Unremarkable BONY STRUCTURES Intact ADDITIONAL FINDINGS: CT/CT head/brain wo con IMPRESSION: No acute findings. Impression dictated by: Koko Hernandez M.D.11/25/2023 12:02 PM Dictation Location: [place] [address] Transcribed By: [facility] 11/25/23 1202 Dictated By: Koko Hernandez DO 11/25/23 1201 Signed By: 11/25/23 1202 Normal [facility] Cholesterol [Mass/volume] in Serum or PlasmaOrdered By: Josh Melvin on 11-24-2023 Cholesterol [Mass/Vol] 168 mg/dL 140-200 [facility] Comment on above: Chol less than 200 m g/dl low riskChol 201-239 mg/dl borderline riskChol 240 mg/dl and greater high risk Cholesterol in LDL Calc [Mas s/Vol]Ordered By: Josh Melvin on 11-24-2023 Cholesterol in LDL [Mass/Vol] 70 mg/dL 0-100 [facility] Comment on above: LDL ATP III CLASSIFI CATIONLDL less than 100 mg/dL OptimalLDL 100-129 mg/dL Near or above optimalLDL 130-159 mg/dL Borderline highLDL 160-189 mg/dL HighLDL greater than 189 mg/dL Very high Cholesterol in VLDL Calc [Ma ss/Vol]Ordered By: Josh Melvin on 11-24-2023 Cholesterol in VLDL [Mass/Vol] 43 mg/dL [facility] Folate [Mass/volume] in Seru m or PlasmaOrdered By: Olivre Kerr on 11-24-2023 Folate [Mass/Vol] 14.9 ng/mL >5.9 [facility] Comment on above: Folate reference ran ge: >5.9 ng/mlThe WHO technical consultation on folate and vitamin [id number] has determined that folate concentrations lessthan 4 ng/ml are considered deficient. Lipid Panelon 11-24-2023 Cholesterol [Mass/Vol] 168 mg/dL Normal 140-200 [facility] Comment on above: Result Comment: Chol less than 200 mg/dl low risk Chol 201-239 mg/dl borderline risk Chol 240 mg/dl and greater high risk Performed By: #### L IPID, PSAS ####[facility] [id number] [place] [id number] [facility] Cholesterol in HDL [Mass/Vol] 54 mg/dL Normal 23-92 [facility] Comment on above: Result Comment: HDL CHOL ATP-III CLASSIFICATION Cardiovascular Risk HDL > or equal to 60 mg/dL LOW HDL < 40 mg/dL HIGH Performed By: #### L IPID, PSAS ####[place] [id number] [place] [id number] [facility] Cholesterol.total/Genevieve sterol in HDL [Mass ratio] 3.1 {ratio} Normal <5.0 [facility] Comment on above: Result Comment: PERF ORMED BY: [facility] [address] [place] [address] PATHOLOGIST DRINK BOX MECHANIC CLEVE CANDELARIA M.D. Performed By: #### L IPID, PSAS ####[facility] [id number] [place] [address] [facility] LDL Cholesterol,Calculated 70 mg/dL Normal 0-100 [facility] Comment on above: Result Comment: LDL ATP III CLASSIFICATION LDL less than 100 mg/dL Optimal LDL 100-129 mg/dL Near or above optimal LDL 130-159 mg/dL Borderline high LDL 160-189 mg/dL High LDL greater than 189 mg/dL Very high Performed By: #### L IPID PSAS ####[place] [id number] [place] [id number] [facility] Triglyceride w/Reflex 218 mg/dL High 0-149 [facility] Comment on above: Result Comment: TRIG ATP III CLASSIFICATION TRIG less than 150 mg/dL Normal TRIG 150-199 mg/dL Borderline high TRIG 200-500 mg/dL High TRIG greater than 500 mg/dL Very high Standard traceable to the Center for Disease Conrtrol and Prevention (CDC) test method. Performed By: #### L TABITHA PSAS ####[address] VLDL CHOLESTEROL 43 mg/dL Normal [facility] Comment on above: Performed By: #### L TABITHA PSAS ####[place] [id number] [place] [id number] [facility] Methylmalonic Acidon 024 Methylmalonic Acid 169 Normal 0-378 [facility] Comment on above: Result Comment: This test was developed and its performance characteristics determined by [facility]. It has not been cleared or approved by the Food and Drug Administration. Performed at: [address] [id number] Licensed Psychologist Manager: Caroline Romo MD, Phone: [phone] PERFORMED BY: [facility] [address] [place] [address] PATHOLOGIST DRINK BOX MECHANIC CLEVE CANDELARIA M.D. Performed By: #### T SH3, [id number] ####[address]#### METH ####[facility] , PSA Screen (Yearly Only)on 0 11-24-2023 PSA Screen (Yearly Only) 1.380 ng/mL Normal 0.000-4.000 [facility] Comment on above: Order Comment: Is pa tient <50 yrs? Medicare does not pay <50.: Y What is the date of the last PSA Screen?: 01/31/22 Is Medicare the insurance?: U Did you verify eligibility (Dx Time) check TestViewGp: YES TO ALL Result Comment: Viktoria vargas tumor marker results determined by assays using different manufacturers or methods may not be comparable. Formerly [facility], 1928–1983 Laboratory post acute care nurse practitioner and method: [employer] DXI, CHEMILUMINESCENT IMMUNOASSAY. PERFORMED BY: [facility] [address] [place] [address] PATHOLOGIST DRINK BOX MECHANIC CLEVE CANDELARIA M.D. Performed By: #### L IPID, PSAS ####[facility] [place] [place] [address] [facility] Prostate specific Ag [Mass/v olume] in Serum or PlasmaOrdered By: Josh Melvin on 11-24-2023 Prostate specific Ag [Mass/Vol] 1.380 ng/mL 0.000-4.000 [facility] Comment on above: Serial tumor marker results determined by assays using different manufacturers or methods may not be comparable.Formerly [facility], 1928–1983 Laboratory post acute care nurse practitioner and method:Funding OptionsEL DXI, CHEMILUMINESCENT IMMUNOASSAY. Serum or plasma high density lipoprotein (HDL) cholesterol measurementOrdered By: Josh Melvin on 11-24-2023 Cholesterol in HDL [Mass/Vol] 54 mg/dL [facility] Comment on above: HDL CHOL ATP-III CLA SSIFICATION Cardiovascular RiskHDL > or equal to 60 mg/dL LOWHDL < 40 mg/dL HIGH Serum or plasma total choles terol/high density lipoprotein (HDL) cholesterol mass ratOrdered By: Josh Melvin on 11-24-2023 Cholesterol.total/Genevieve sterol in HDL [Mass ratio] 3.1 {ratio} <5.0 [facility] Thyroid Stimulating Hormoneo n 11-24-2023 TSH Qn 2.24 m[IU]/L Normal 0.45-5.33 [facility] Comment on above: Result Comment: PERF ORMED BY: [facility] [address] [place] [address] PATHOLOGIST DRINK BOX MECHANIC CLEVE CANDELARIA M.D. Performed By: #### T SH3, [id number] ####[facility] [address] [place] [address] [place]#### METH ####[facility] , Thyrotropin [Units/volume] i n Serum or PlasmaOrdered By: Oliver Kerr on 11-24-2023 TSH Qn 2.24 m[IU]/L 0.45-5.33 [facility] Triglyceride [Mass/volume] i n Serum or PlasmaOrdered By: Josh Melvin on 11-24-2023 Triglyceride [Mass/Vol] 218 mg/dL 0-149 [facility] Comment on above: TRIG ATP III CLASSIF ICATIONTRIG less than 150 mg/dL NormalTRIG 150-199 mg/dL Borderline highTRIG 200-500 mg/dL High TRIG greater than 500 mg/dL Very highStandard traceable to the Center for Disease Conrtrol and Prevention (CDC) test method. Vit. B12/Folate Profileon Cobalamin (Vitamin B12) [Mass/Vol] 365 pg/mL Normal 180-914 [facility] Comment on above: Performed By: #### T SH3, [id number] ####[facility] [place] [place] [address] [place]#### METH ####[facility] , Folate 14.9 ng/mL Normal >5.9 [facility] Comment on above: Result Comment: Lin te reference range: >5.9 ng/ml The WHO technical consultation on folate and vitamin b12 deficiencies has determined that folate concentrations less than 4 ng/ml are considered deficient. Performed By: #### T SH3, [id number] ####[facility] [address] [place] [address] [place]#### METH ####[facility] , Vitamin B12 ser/plasOrdered By: Oliver Kerr on 11-24-2023 Cobalamin (Vitamin B12) [Mass/Vol] 365 pg/mL 180-914 [facility] Amphetamine Screen Ql (U)Ord ered By: Kenroy Domínguez on 11-03-2023 Amphetamines Ql (U) Negative Negative [facility] Barbiturates [Presence] in U rine by Screen methodOrdered By: Kenroy Domínguez on 11-03-2023 Barbiturates Screen Ql (U) Negative Negative [facility] Benzodiazepines Screen Ql (U )Ordered By: Kenroy Domínguez on 11-03-2023 Benzodiazepines Ql (U) Negative Negative [facility] Benzoylecgonine [Presence] i n Urine by Screen methodOrdered By: Kenroy Domínguez on 11-03-2023 Benzoylecgonine Screen Ql (U) Negative Negative [facility] Cannabinoids [Presence] in U rine by Screen methodOrdered By: Kenroy Domínguez on 11-03-2023 Cannabinoids Screen Ql (U) Positive Negative [facility] Comment on above: These are unconfirme d results and should not be used for legal purposes. Drug Cut-Off Concentration: AMPH 1000 ng/mL ZE 200 ng/mL DUANE 200 ng/mL COCM 300 ng/mL OP 300 ng/mL PCP 25 ng/mL THC 20 ng/mL Drug Screen,Urineon 11-03-19 24 Amphetamine Screen,Urine Negative Normal Negative [facility] Comment on above: Performed By: #### U RDS #### [facility] [address] [place] [address] [place] Barbiturate Screen,Urine Negative Normal Negative [facility] Comment on above: Performed By: #### U RDS #### [facility] [address] [place] [address] [place] Benzodiazepines Screen,Urine Negative Normal Negative [facility] Comment on above: Performed By: #### U RDS #### [facility] [address] [place] [address] [place] Cannabinoid Screen,Urine Positive High Negative [facility] Comment on above: Result Comment: Thes e are unconfirmed results and should not be used for legal purposes. Drug Cut-Off Concentration: AMPH 1000 ng/mL ZE 200 ng/mL DUANE 200 ng/mL COCM 300 ng/mL OP 300 ng/mL PCP 25 ng/mL THC 20 ng/mL PERFORMED BY: [place] [address] PATHOLOGIST DRINK BOX MECHANIC CLEVE CANDELARIA M.D. Performed By: #### U RDS #### [facility] [address] [place] [address] [place] Cocaine Screen,Urine Negative Normal Negative [facility] Comment on above: Performed By: #### U RDS #### [facility] [address] Opiate Screen,Urine Negative Normal Negative [facility] Comment on above: Performed By: #### U RDS #### [facility] [address] [place] [address] [place] Phencyclidine Screen,Urine Negative Normal Negative [facility] Comment on above: Performed By: #### U RDS #### [facility] [address] Glucose Glucometer (BldC) [M ass/Vol]Ordered By: Yogesh Becker on 11-03-2023 Glucose [Mass/Vol] 185 mg/dL [facility] Comment on above: Random Glucose Refer ence Range is dependent on time and content of last meal. Glucose of more than 200 mg/dL in a nonstressed, ambulatory subject supports the diagnosis of Diabetes Mellitus. Glucose Poct Glucometerson 0 11-03-2023 Glucose [Mass/Vol] 185 mg/dL Normal [facility] Comment on above: Result Comment: Howe om Glucose Reference Range is dependent on time and content of last meal. Glucose of more than 200 mg/dL in a nonstressed, ambulatory subject supports the diagnosis of Diabetes Mellitus. PERFORMED BY: [place] [address] PATHOLOGIST [employer]INK BOX MECHANIC CLEVE CANDELARIA M.D. Performed By: #### U RDS #### [facility] [address] Glucose [Mass/Vol] 180 mg/dL Normal [facility] Comment on above: Result Comment: [place] om Glucose Reference Range is dependent on time and content of last meal. Glucose of more than 200 mg/dL in a nonstressed, ambulatory subject supports the diagnosis of Diabetes Mellitus. PERFORMED BY: [place] [address] PATHOLOGIST DRINK BOX MECHANIC CLEVE CANDELARIA M.D. Performed By: #### G JES #### Point of Care testing , Opiates [Presence] in Urine by Screen methodOrdered By: Kenroy Sang on 11-03-2023 Opiates Screen Ql (U) Negative Negative [facility] Phencyclidine Screen Ql (U)O rdered By: Kenroy Sang on 11-03-2023 Phencyclidine Ql (U) Negative Negative [facility] Basic Metabolic Panelon 12-2 Anion gap [Moles/Vol] 9.7 mmol/L Normal 6.0-15.0 [facility] Comment on above: Performed By: #### B MP, CBC #### [facility] [address] Calcium [Mass/Vol] 8.8 mg/dL Normal 8.6-10.3 [facility] Comment on above: Result Comment: PERF ORMED BY: [facility] [address] [place] [address] PATHOLOGIST DRINK BOX MECHANIC CLEVE CANDELARIA M.D. Performed By: #### B MP, CBC #### [facility] [address] [place] [address] [place] Chloride [Moles/Vol] 100 mmol/L Normal 98-107 [facility] Comment on above: Performed By: #### B MP, CBC #### [facility] [address] [place] [id number] [place] CO2 [Moles/Vol] 33.8 mmol/L High 21.0-31.0 [facility] Comment on above: Performed By: #### B MP, CBC #### [facility] [address] [place] [address] [place] Creatinine [Mass/Vol] 0.71 mg/dL Normal 0.70-1.30 [facility] Comment on above: Performed By: #### B MP, CBC #### [facility] [address] [place] [id number] [place] GFR/1.73 sq M.predicted MDRD (S/P/Bld) [Vol rate/Area] mL/min/{1.73_m2} Normal [facility] Comment on above: Performed By: #### B MP, CBC #### [facility] [address] Glucose [Mass/Vol] 105 mg/dL High 70-100 [facility] Comment on above: Result Comment: [place] Glucose Reference Range is dependent on time and content of last meal. Glucose of more than 200 mg/dL in a nonstressed, ambulatory subject supports the diagnosis of Diabetes Mellitus. ADA recommended reference range Performed By: #### B MP, CBC #### [facility] [address] Potassium [Moles/Vol] 4.5 mmol/L Normal 3.5-5.1 [facility] Comment on above: Performed By: #### B MP, CBC #### [facility] [address] [place] [address] [place] Sodium [Moles/Vol] 139 mmol/L Normal 136-145 [facility] Comment on above: Performed By: #### B MP, CBC #### [facility] [address] [place] [address] [place] Urea nitrogen [Mass/Vol] 18 mg/dL Normal 7-25 [facility] Comment on above: Performed By: #### B MP, CBC #### [facility] [address] Basophils Auto (Bld) [#/Vol] Ordered By: Yogesh Becker on 10-23-2023 Basophils (Bld) [#/Vol] 0.0 10*3/uL 0.0-0.2 [facility] Basophils/100 WBC Auto (Bld) Ordered By: Yogesh Becker on 10-23-2023 Basophils/100 WBC (Bld) 0.8 % . F [facility] Calcium [Mass/volume] in Ser um or PlasmaOrdered By: Yogesh Becker on 10-23-2023 Calcium [Mass/Vol] 8.8 mg/dL 8.6-10.3 [facility] Carbon dioxide, total [Moles /volume] in Serum or PlasmaOrdered By: Yogesh Becker on 10-23-2023 CO2 [Moles/Vol] 33.8 mmol/L 21.0-31.0 [facility] Chloride [Moles/volume] in S raffi or PlasmaOrdered By: Yogesh Becker on 10-23-2023 Chloride [Moles/Vol] 100 mmol/L 98-107 [facility] Complete Blood Count Auto Di ffon 10-23-2023 Basophils (Bld) [#/Vol] 0.0 10*3/uL Normal 0.0-0.2 [facility] Comment on above: Result Comment: PERF ORMED BY: [place] [address] PATHOLOGIST [employer] BOX MECHANIC CLEVE CANDELARIA M.D. Performed By: #### B MP, CBC #### [facility] [address] [place] [address] Basophils/100 WBC (Bld) 0.8 % Normal . F [facility] Comment on above: Performed By: #### B MP, CBC #### [address] Eosinophils (Bld) [#/Vol] 0.2 10*3/uL Normal 0.0-0.45 [facility] Comment on above: Performed By: #### B MP, CBC #### [address] Eosinophils/100 WBC (Bld) 3.6 % Normal . [facility] Comment on above: Performed By: #### B MP, CBC #### [address] Erythrocyte distribution width (RBC) [Ratio] 14.3 % Normal 12.0-14.8 [facility] Comment on above: Performed By: #### B MP, CBC #### [address] Hematocrit (Bld) [Volume fraction] 48.1 % Normal 38.8-50.0 [facility] Comment on above: Performed By: #### B MP, CBC #### [address] [place] [address] [place] Hemoglobin (Bld) [Mass/Vol] 16.2 g/dL Normal 13.0-17.0 [facility] Comment on above: Performed By: #### B MP, CBC #### [facility] [address] [place] [address] [place] Lymphocytes (Bld) [#/Vol] 1.3 10*3/uL Normal 1.00-4.8 [facility] Comment on above: Performed By: #### B MP, CBC #### [facility] [address] Lymphocytes/100 WBC (Bld) 26.8 % Normal . [facility] Comment on above: Performed By: #### B MP, CBC #### [facility] [address] MCH (RBC) [Entitic mass] 32.4 pg Normal 27.5-35.2 [facility] Comment on above: Performed By: #### B MP, CBC #### [facility] [address] [place] [address] [place] MCV (RBC) [Entitic vol] 96.0 fL Normal 83.5-101 F [facility] Comment on above: Performed By: #### B MP, CBC #### [facility] [address] Mean Corpuscular HGB Conc 33.8 g/dL Normal 32.5-35.6 [facility] Comment on above: Performed By: #### B MP, CBC #### [facility] [address] [place] [address] [place] Monocytes (Bld) [#/Vol] 0.5 10*3/uL Normal 0.0-0.8 [facility] Comment on above: Performed By: #### B MP, CBC #### [facility] [address] [place] [address] [place] Monocytes/100 WBC (Bld) 9.4 % Normal . F [facility] Comment on above: Performed By: #### B MP, CBC #### [facility] [address] [place] [address] [place] Neutrophils (Bld) [#/Vol] 2.9 10*3/uL Normal 1.8-7.7 [facility] Comment on above: Performed By: #### B MP, CBC #### [facility] [address] Neutrophils/100 WBC (Bld) 59.4 % Normal . [facility] Comment on above: Performed By: #### B MP, CBC #### [facility] [address] NRBC% 0.1 /100{WBC} Normal 0-0.5 [facility] Comment on above: Performed By: #### B MP, CBC #### [facility] [address] Platelet mean volume (Bld) [Entitic vol] 8.4 fL Normal 6.6-10.1 [facility] Comment on above: Performed By: #### B MP, CBC #### [facility] [address] [place] [address] [place] Platelets (Bld) [#/Vol] 173 10*3/uL Normal 150-450 [facility] Comment on above: Performed By: #### B MP, CBC #### [facility] [address] RBC (Bld) [#/Vol] 5.01 10*6/uL Normal 3.90-5.60 [facility] Comment on above: Performed By: #### B MP, CBC #### [place] [address] [place] WBC (Bld) [#/Vol] 4.9 10*3/uL Normal 4.1-10.5 [facility] Comment on above: Performed By: #### B MP, CBC #### [place] [address] [place] Creatinine [Mass/volume] in Serum or PlasmaOrdered By: Yogesh Becker on 10-23-2023 Creatinine [Mass/Vol] 0.71 mg/dL 0.70-1.30 [facility] Eosinophils Auto (Bld) [#/Vo l]Ordered By: Yogesh Becker on 10-23-2023 Eosinophils (Bld) [#/Vol] 0.2 10*3/uL 0.0-0.45 [facility] Eosinophils/100 WBC Auto (Bl d)Ordered By: Yogesh Becker on 10-23-2023 Eosinophils/100 WBC (Bld) 3.6 % . [facility] Erythrocyte distribution wid th Auto (RBC) [Ratio]Ordered By: Yogesh Becker on 10-23-2023 Erythrocyte distribution width (RBC) [Ratio] 14.3 % 12.0-14.8 [facility] Glucose [Mass/volume] in Ser um or PlasmaOrdered By: Yogesh Becker on 10-23-2023 Glucose [Mass/Vol] 105 mg/dL 70-100 [facility] Comment on above: ADA recommended refe rence rangeRandom Glucose Reference Range is dependent on time and content of last meal. Glucose of more than 200 mg/dL in a nonstressed, ambulatory subject supports the diagnosis of Diabetes Mellitus. Hematocrit Auto (Bld) [Volum e fraction]Ordered By: Yogesh Becker on 10-23-2023 Hematocrit (Bld) [Volume fraction] 48.1 % 38.8-50.0 [facility] Hemoglobin [Mass/volume] in BloodOrdered By: Yogesh Becker on 10-23-2023 Hemoglobin (Bld) [Mass/Vol] 16.2 g/dL 13.0-17.0 [facility] Leukocytes [#/volume] correc charanjit for nucleated erythrocytes in Blood by Automated counOrdered By: Yogesh Becker on 10-23-2023 WBC corrected for nucl RBC Auto (Bld) [#/Vol] 4.9 10*3/uL 4.1-10.5 [facility] Lymphocytes Auto (Bld) [#/Vo l]Ordered By: Yogesh Becker on 10-23-2023 Lymphocytes (Bld) [#/Vol] 1.3 10*3/uL 1.00-4.8 [facility] Lymphocytes/100 WBC Auto (Bl d)Ordered By: Yogesh Becker on 10-23-2023 Lymphocytes/100 WBC (Bld) 26.8 % . [facility] MCH Auto (RBC) [Entitic mass ]Ordered By: Yogesh Becker on 10-23-2023 MCH (RBC) [Entitic mass] 32.4 pg 27.5-35.2 [facility] MCHC Auto (RBC) [Mass/Vol]Or dered By: Yogesh Becker on 10-23-2023 MCHC (RBC) [Mass/Vol] 33.8 g/dL 32.5-35.6 [facility] MCV Auto (RBC) [Entitic vol] Ordered By: Yogesh Becker on 10-23-2023 MCV (RBC) [Entitic vol] 96.0 fL 83.5-101 F [facility] Monocytes Auto (Bld) [#/Vol] Ordered By: Yogesh Becker on 10-23-2023 Monocytes (Bld) [#/Vol] 0.5 10*3/uL 0.0-0.8 [facility] Monocytes/100 WBC Auto (Bld) Ordered By: Yogesh Becker on 10-23-2023 Monocytes/100 WBC (Bld) 9.4 % . F [facility] Neutrophils Auto (Bld) [#/Vo l]Ordered By: Yogesh Becker on 10-23-2023 Neutrophils (Bld) [#/Vol] 2.9 10*3/uL 1.8-7.7 [facility] Neutrophils/100 WBC Auto (Bl d)Ordered By: Yogesh Becker on 10-23-2023 Neutrophils/100 WBC (Bld) 59.4 % . [facility] No Panel InformationOrdered By: Yogesh Becker on 10-23-2023 Estimated GFR (CKD-EPI) > 60.0 mL/Min [facility] Creatinine Clearance (Chem N/A [facility] Nucleated erythrocytes [Pres ence] in Blood by Automated countOrdered By: Yogesh Becker on 10-23-2023 Nucleated RBC Auto Ql (Bld) 0.1 /100{WBC} 0-0.5 [facility] Platelet mean volume Auto (B ld) [Entitic vol]Ordered By: Yogesh Becker on 10-23-2023 Platelet mean volume (Bld) [Entitic vol] 8.4 fL 6.6-10.1 [facility] Platelets Auto (Bld) [#/Vol] Ordered By: Yogesh Becker on 10-23-2023 Platelets (Bld) [#/Vol] 173 10*3/uL 150-450 [facility] Potassium [Moles/volume] in Serum or PlasmaOrdered By: Yogesh Becker on 10-23-2023 Potassium [Moles/Vol] 4.5 mmol/L 3.5-5.1 [facility] RBC Auto (Bld) [#/Vol]Ordere d By: Yogesh Becker on 10-23-2023 RBC (Bld) [#/Vol] 5.01 10*6/uL 3.90-5.60 [facility] Serum or plasma anion gap de terminationOrdered By: Yogesh Becker on 10-23-2023 Anion gap [Moles/Vol] 9.7 mmol/L 6.0-15.0 [facility] Sodium [Moles/volume] in Ser um or PlasmaOrdered By: Yogesh Becker on 10-23-2023 Sodium [Moles/Vol] 139 mmol/L 136-145 [facility] Urea nitrogen [Mass/volume] in Serum or PlasmaOrdered By: Yogesh Becker on 10-23-2023 Urea nitrogen [Mass/Vol] 18 mg/dL 7-25 [facility] WBC Auto (Bld) [#/Vol]Ordere d By: Yogesh Becker on 10-23-2023 WBC (Bld) [#/Vol] 4.9 10*3/uL 4.1-10.5 [facility] Amphetamine Screen Ql (U)Ord ered By: Giuseppe Desouza on 10-02-2023 Amphetamines Ql (U) Negative Negative [facility] Barbiturates [Presence] in U rine by Screen methodOrdered By: Giuseppe Desouza on 10-02-2023 Barbiturates Screen Ql (U) Negative Negative [facility] Benzodiazepines Screen Ql (U )Ordered By: Giuseppe Desouza on 10-02-2023 Benzodiazepines Ql (U) Positive Negative [facility] Benzoylecgonine [Presence] i n Urine by Screen methodOrdered By: Giuseppe Desouza on 10-02-2023 Benzoylecgonine Screen Ql (U) Positive Negative [facility] Cannabinoids [Presence] in U rine by Screen methodOrdered By: Giuseppe Desouza on 10-02-2023 Cannabinoids Screen Ql (U) Positive Negative [facility] Comment on above: These are unconfirme d results and should not be used for legal purposes. Drug Cut-Off Concentration: AMPH 1000 ng/mL ZE 200 ng/mL DUANE 200 ng/mL COCM 300 ng/mL OP 300 ng/mL PCP 25 ng/mL THC 20 ng/mL Drug Screen,Urineon 10-02-20 23 Amphetamine Screen,Urine Negative Normal Negative [facility] Comment on above: Performed By: #### U RDS ####[address] Barbiturate Screen,Urine Negative Normal Negative [facility] Comment on above: Performed By: #### U RDS ####[place] [id number] [facility] Benzodiazepines Screen,Urine Positive High Negative [facility] Comment on above: Performed By: #### U RDS ####[address] Cannabinoid Screen,Urine Positive High Negative [facility] Comment on above: Result Comment: Thes e are unconfirmed results and should not be used for legal purposes. Drug Cut-Off Concentration: AMPH 1000 ng/mL ZE 200 ng/mL DUANE 200 ng/mL COCM 300 ng/mL OP 300 ng/mL PCP 25 ng/mL THC 20 ng/mL PERFORMED BY: [facility] [address] [place] [id number] PATHOLOGIST [employer] MECHANIC CLEVE CANDELARIA M.D. Performed By: #### U RDS ####[place] [id number] [place] Cocaine Screen,Urine Positive High Negative [facility] Comment on above: Performed By: #### U RDS ####[facility] [address] [place] [address] [facility] Opiate Screen,Urine Negative Normal Negative [facility] Comment on above: Performed By: #### U RDS ####[facility] [place] [place] [id number] [facility] Phencyclidine Screen,Urine Negative Normal Negative [facility] Comment on above: Performed By: #### U RDS ####[facility] [place] [place] [id number] [facility] Glucose Glucometer (dC) [M ass/Vol]Ordered By: Yogesh Becker on 10-02-2023 Glucose [Mass/Vol] 290 mg/dL [facility] Comment on above: Random Glucose Refer ence Range is dependent on time and content of last meal. Glucose of more than 200 mg/dL in a nonstressed, ambulatory subject supports the diagnosis of Diabetes Mellitus. Glucose Poct Glucometerson 1 12-03-2022 Commemt1 Glu2: Cleaned Meter [facility] Comment on above: Result Comment: PERF ORMED BY: [facility] [address] [place] [address] PATHOLOGIST [employer] MECHANIC CLEVE CANDELARIA M.D. Performed By: #### G LULS #### Point of Care testing , Glucose [Mass/Vol] 290 mg/dL Normal [facility] Comment on above: Result Comment: [place] om Glucose Reference Range is dependent on time and content of last meal. Glucose of more than 200 mg/dL in a nonstressed, ambulatory subject supports the diagnosis of Diabetes Mellitus. Performed By: #### G LULS #### Point of Care testing , No Panel InformationOrdered By: Yogesh Becker on 10-02-2023 Bedside Glucose Comment Glu2: cleaned meter [facility] Opiates [Presence] in Urine by Screen methodOrdered By: Giuseppe Desouza on 10-02-2023 Opiates Screen Ql (U) Negative Negative [facility] Phencyclidine Screen Ql (U)O rdered By: Giuseppe Desouza on 10-02-2023 Phencyclidine Ql (U) Negative Negative [facility] POC Glucose Randomon 023 Glucose [Mass/Vol] 192 mg/dL High 70-99 [facility] Comment on above: Performed By: #### C [id number] #### [facility] [address] [place] [address] Glucose [Mass/Vol] 246 mg/dL High 70-99 [facility] Comment on above: Performed By: #### C [id number] #### [facility] [address] [place] [id number] Basic Metabolic Panelon -2 Anion gap [Moles/Vol] 13.1 mmol/L Normal 6.0-15.0 [facility] Comment on above: Performed By: #### C BC, BMP #### [facility] [address] Calcium [Mass/Vol] 9.3 mg/dL Normal 8.6-10.3 [facility] Comment on above: Result Comment: PERF ORMED BY: [place] [address] PATHOLOGIST [employer]OX MECHANIC CLEVE CANDELARIA M.D. Performed By: #### C BC, BMP #### [facility] [address] [place] [address] [place] Chloride [Moles/Vol] 96 mmol/L Low 98-107 [facility] Comment on above: Performed By: #### C BC, BMP #### [facility] [address] [place] [id number] [place] CO2 [Moles/Vol] 30.6 mmol/L Normal 21.0-31.0 [facility] Comment on above: Performed By: #### C BC, BMP #### [facility] [address] [place] [id number] [place] Creatinine [Mass/Vol] 1.01 mg/dL Normal 0.70-1.30 [facility] Comment on above: Performed By: #### C BC, BMP #### [facility] [address] [place] [id number] [place] GFR/1.73 sq M.predicted MDRD (S/P/Bld) [Vol rate/Area] mL/min/{1.73_m2} Normal [facility] Comment on above: Performed By: #### C BC, BMP #### [facility] [address] Glucose [Mass/Vol] 412 mg/dL High 70-100 [facility] Comment on above: Result Comment: [place] Glucose Reference Range is dependent on time and content of last meal. Glucose of more than 200 mg/dL in a nonstressed, ambulatory subject supports the diagnosis of Diabetes Mellitus. ADA recommended reference range Performed By: #### C BC, BMP #### [facility] [address] Potassium [Moles/Vol] 4.7 mmol/L Normal 3.5-5.1 [facility] Comment on above: Performed By: #### C BC, BMP #### [facility] [address] [place] [address] [place] Sodium [Moles/Vol] 135 mmol/L Low 136-145 [facility] Comment on above: Performed By: #### C BC, BMP #### [facility] [address] Urea nitrogen [Mass/Vol] 28 mg/dL High 7-25 [facility] Comment on above: Performed By: #### C BC, BMP #### [facility] [address] [place] [address] [place] Basophils Auto (Bld) [#/Vol] Ordered By: Yogesh Becker on 09-23-2023 Basophils (Bld) [#/Vol] 0.1 10*3/uL 0.0-0.2 [facility] Basophils/100 WBC Auto (Bld) Ordered By: Yogesh Becker on 09-23-2023 Basophils/100 WBC (Bld) 0.6 % . F [facility] Calcium [Mass/volume] in Ser um or PlasmaOrdered By: Yogesh Becker on 09-23-2023 Calcium [Mass/Vol] 9.3 mg/dL 8.6-10.3 [facility] Carbon dioxide, total [Moles /volume] in Serum or PlasmaOrdered By: Yogesh Becker on 09-23-2023 CO2 [Moles/Vol] 30.6 mmol/L 21.0-31.0 [facility] Chloride [Moles/volume] in S raffi or PlasmaOrdered By: Yogesh Becker on 09-23-2023 Chloride [Moles/Vol] 96 mmol/L 98-107 [facility] Complete Blood Count Auto Di ffon 09-23-2023 Basophils (Bld) [#/Vol] 0.1 10*3/uL Normal 0.0-0.2 [facility] Comment on above: Result Comment: PERF ORMED BY: [place] [address] PATHOLOGIST [employer]OX MECHANIC CLEVE CANDELARIA M.D. Performed By: #### C BC, BMP #### [facility] [address] [place] [address] Basophils/100 WBC (Bld) 0.6 % Normal . F [facility] Comment on above: Performed By: #### C BC, BMP #### [place] [address] [place] Eosinophils (Bld) [#/Vol] 0.0 10*3/uL Normal 0.0-0.45 [facility] Comment on above: Performed By: #### C BC, BMP #### [facility] [address] [place] [address] Eosinophils/100 WBC (Bld) 0.1 % Normal . [facility] Comment on above: Performed By: #### C BC, BMP #### [facility] [address] [place] [address] Erythrocyte distribution width (RBC) [Ratio] 13.9 % Normal 12.0-14.8 [facility] Comment on above: Performed By: #### C BC, BMP #### [address] Hematocrit (Bld) [Volume fraction] 47.2 % Normal 38.8-50.0 [facility] Comment on above: Performed By: #### C BC, BMP #### [facility] [address] [place] [address] [place] Hemoglobin (Bld) [Mass/Vol] 15.7 g/dL Normal 13.0-17.0 [facility] Comment on above: Performed By: #### C BC, BMP #### [facility] [address] [place] [address] [place] Lymphocytes (Bld) [#/Vol] 1.7 10*3/uL Normal 1.00-4.8 [facility] Comment on above: Performed By: #### C BC, BMP #### [facility] [address] [place] [address] [place] Lymphocytes/100 WBC (Bld) 13.3 % Normal . [facility] Comment on above: Performed By: #### C BC, BMP #### [facility] [address] MCH (RBC) [Entitic mass] 32.3 pg Normal 27.5-35.2 [facility] Comment on above: Performed By: #### C BC, BMP #### [facility] [address] [place] [address] [place] MCV (RBC) [Entitic vol] 96.9 fL Normal 83.5-101 F [facility] Comment on above: Performed By: #### C BC, BMP #### [facility] [address] Mean Corpuscular HGB Conc 33.4 g/dL Normal 32.5-35.6 [facility] Comment on above: Performed By: #### C BC, BMP #### [facility] [address] [place] [address] [place] Monocytes (Bld) [#/Vol] 0.6 10*3/uL Normal 0.0-0.8 [facility] Comment on above: Performed By: #### C BC, BMP #### [facility] [address] [place] [phone] [place] Monocytes/100 WBC (Bld) 4.6 % Normal . [facility] Comment on above: Performed By: #### C BC, BMP #### [facility] [address] [place] [address] [place] Neutrophils (Bld) [#/Vol] 10.1 10*3/uL High 1.8-7.7 [facility] Comment on above: Performed By: #### C BC, BMP #### [facility] [address] [place] [phone] [place] Neutrophils/100 WBC (Bld) 81.4 % Normal . [facility] Comment on above: Performed By: #### C BC, BMP #### [facility] [address] [place] [address] [place] NRBC% 0.0 /100{WBC} Normal 0-0.5 [facility] Comment on above: Performed By: #### C BC, BMP #### [facility] [address] [place] [address] [place] Platelet mean volume (Bld) [Entitic vol] 8.3 fL Normal 6.6-10.1 [facility] Comment on above: Performed By: #### C BC, BMP #### [facility] [address] [place] [address] [place] Platelets (Bld) [#/Vol] 203 10*3/uL Normal 150-450 [facility] Comment on above: Performed By: #### C BC, BMP #### [facility] [address] [place] [address] [place] RBC (Bld) [#/Vol] 4.87 10*6/uL Normal 3.90-5.60 [facility] Comment on above: Performed By: #### C BC, BMP #### [facility] [address] [place] [address] [place] WBC (Bld) [#/Vol] 12.4 10*3/uL High 4.1-10.5 [facility] Comment on above: Performed By: #### C BC, BMP #### [facility] [address] [id number] [place] Creatinine [Mass/volume] in Serum or PlasmaOrdered By: Yogesh Becker on 09-23-2023 Creatinine [Mass/Vol] 1.01 mg/dL 0.70-1.30 [facility] ECG 12 lead ECGon 09-23-2023 ECG 12 lead ECG [facility] Main [address] [address] Electrocardiograph Report Signed Patient: Koko Meier MR#: [id number] : 1960 Acct:[id number] Age/Sex: 62 / M ADM Date: 09/23/23 Loc: Room: Type: [facility] Attending Dr: Yogesh Becker MD Ordering [...] axis shifted right Confirmed by JOSEY MATUTE [facility] ([id number]) on 09/23/2023 10:29:43 PM Referred By: OLEGARIO BECKER Electronically Signed By:KIRSTIE CERVANTES MD [facility] Transcribed By: MUS Signed By Barron Cervantes MD 09/23/232228 Normal [facility] Eosinophils Auto (Bld) [#/Vo l]Ordered By: Yogesh Becker on 09-23-2023 Eosinophils (Bld) [#/Vol] 0.0 10*3/uL 0.0-0.45 [facility] Eosinophils/100 WBC Auto (Bl d)Ordered By: Yogesh Becker on 09-23-2023 Eosinophils/100 WBC (Bld) 0.1 % . [facility] Erythrocyte distribution wid th Auto (RBC) [Ratio]Ordered By: Yogesh Becker on 09-23-2023 Erythrocyte distribution width (RBC) [Ratio] 13.9 % 12.0-14.8 [facility] Glucose [Mass/volume] in Ser um or PlasmaOrdered By: Yogesh Becker on 09-23-2023 Glucose [Mass/Vol] 412 mg/dL 70-100 [facility] Comment on above: ADA recommended refe rence rangeRandom Glucose Reference Range is dependent on time and content of last meal. Glucose of more than 200 mg/dL in a nonstressed, ambulatory subject supports the diagnosis of Diabetes Mellitus. Hematocrit Auto (Bld) [Volum e fraction]Ordered By: Yogesh Becker on 09-23-2023 Hematocrit (Bld) [Volume fraction] 47.2 % 38.8-50.0 [facility] Hemoglobin [Mass/volume] in BloodOrdered By: Yogesh Becker on 09-23-2023 Hemoglobin (Bld) [Mass/Vol] 15.7 g/dL 13.0-17.0 [facility] Leukocytes [#/volume] correc charanjit for nucleated erythrocytes in Blood by Automated counOrdered By: Yogesh Becker on 09-23-2023 WBC corrected for nucl RBC Auto (Bld) [#/Vol] 12.4 10*3/uL 4.1-10.5 [facility] Lymphocytes Auto (Bld) [#/Vo l]Ordered By: Yogesh Becker on 09-23-2023 Lymphocytes (Bld) [#/Vol] 1.7 10*3/uL 1.00-4.8 [facility] Lymphocytes/100 WBC Auto (Bl d)Ordered By: Yogesh Becker on 09-23-2023 Lymphocytes/100 WBC (Bld) 13.3 % . [facility] MCH Auto (RBC) [Entitic mass ]Ordered By: Yogesh Becker on 09-23-2023 MCH (RBC) [Entitic mass] 32.3 pg 27.5-35.2 [facility] MCHC Auto (RBC) [Mass/Vol]Or dered By: Yogesh Becker on 09-23-2023 MCHC (RBC) [Mass/Vol] 33.4 g/dL 32.5-35.6 [facility] MCV Auto (RBC) [Entitic vol] Ordered By: Yogesh Becker on 09-23-2023 MCV (RBC) [Entitic vol] 96.9 fL 83.5-101 F [facility] Monocytes Auto (Bld) [#/Vol] Ordered By: Yogesh Becker on 09-23-2023 Monocytes (Bld) [#/Vol] 0.6 10*3/uL 0.0-0.8 [facility] Monocytes/100 WBC Auto (Bld) Ordered By: Yogesh Becker on 09-23-2023 Monocytes/100 WBC (Bld) 4.6 % . F [facility] Neutrophils Auto (Bld) [#/Vo l]Ordered By: Yogesh Becker on 09-23-2023 Neutrophils (Bld) [#/Vol] 10.1 10*3/uL 1.8-7.7 [facility] Neutrophils/100 WBC Auto (Bl d)Ordered By: Yogesh Becker on 09-23-2023 Neutrophils/100 WBC (Bld) 81.4 % . [facility] No Panel InformationOrdered By: Yogesh Becker on 09-23-2023 Estimated GFR (CKD-EPI) > 60.0 mL/Min [facility] Creatinine Clearance (Chem N/A [facility] Nucleated erythrocytes [Pres ence] in Blood by Automated countOrdered By: Yogesh Becker on 09-23-2023 Nucleated RBC Auto Ql (Bld) 0.0 /100{WBC} 0-0.5 [facility] Platelet mean volume Auto (B ld) [Entitic vol]Ordered By: Yogesh Becker on 09-23-2023 Platelet mean volume (Bld) [Entitic vol] 8.3 fL 6.6-10.1 [facility] Platelets Auto (Bld) [#/Vol] Ordered By: Yogesh Becker on 09-23-2023 Platelets (Bld) [#/Vol] 203 10*3/uL 150-450 [facility] Potassium [Moles/volume] in Serum or PlasmaOrdered By: Yogesh Becker on 09-23-2023 Potassium [Moles/Vol] 4.7 mmol/L 3.5-5.1 [facility] RBC Auto (Bld) [#/Vol]Ordere d By: Yogesh Becker on 09-23-2023 RBC (Bld) [#/Vol] 4.87 10*6/uL 3.90-5.60 [facility] Serum or plasma anion gap de terminationOrdered By: Yogesh Becker on 09-23-2023 Anion gap [Moles/Vol] 13.1 mmol/L 6.0-15.0 [facility] Sodium [Moles/volume] in Ser um or PlasmaOrdered By: Yogesh Becker on 09-23-2023 Sodium [Moles/Vol] 135 mmol/L 136-145 [facility] Urea nitrogen [Mass/volume] in Serum or PlasmaOrdered By: Yogehs Becker on 09-23-2023 Urea nitrogen [Mass/Vol] 28 mg/dL 7-25 [facility] WBC Auto (Bld) [#/Vol]Ordere d By: Yogesh Becker on 09-23-2023 WBC (Bld) [#/Vol] 12.4 10*3/uL 4.1-10.[address] [facility] [address] ABDOMEN PELVIS W IV CONTR Ammon [...] spine 5V*on 07-27 XR cervical spine 5V* [facility] Main [place] [address] [place] [address] XRay Report Signed Patient: Koko Meier MR#: [id number] : 1960 Acct:[id number] Age/Sex: 62 / M ADM Date: 08/11/23 Loc: DC Room: Type: [facility] Attending Dr: Savanna Mcclain MD Copies [...] Koko Hernandez M.D.08/11/2023 5:00 PM Dictation Location: RADIO-PC-12 Transcribed By: [facility] 08/11/231699 Dictated By: Koko Hernandez DO 08/11/231656 Signed By: 08/11/231699 [facility] XR thoracic spine 3V*on 07-27 XR thoracic spine 3V* [place] [address] XRay Report Signed Patient: Koko Meier MR#: [id number] : 1960 Acct:[id number] Age/Sex: 62 / M ADM Date: 08/11/23 Loc: DC Room: Type: [facility] Attending Dr: Savanna Mcclain MD Copies [...] Koko Hernandez M.D.08/11/2023 5:01 PM Dictation Location: RADIO-PC-12 Transcribed By: [facility] 08/11/231700 Dictated By: Koko Hernandez DO 08/11/231699 Signed By: 08/11/231700 [facility] XR lumbar spine 6V w bending on 08-01-2023 XR lumbar spine 6V w bending [facility] Main [place] [address] [place], [place] [id number] XRay Report Signed Patient: Koko Meier MR#: [id number] : 1960 Acct:[id number] Age/Sex: 62 / M ADM Date: 08/01/23 Loc: XD Room: Type: [facility] CLI Attending Dr: Josh Melvin DO Copies [...] Monika Eastman M.D.08/01/2023 1:06 PM Dictation Location: [place] [address] Transcribed By: [facility] 08/01/23 1306 Dictated By: Monika Eastman MD 08/01/23 1210 Signed By: 08/01/23 1306 [facility] A1C with Estimated Average [facility] 04-21-2023 Glucose [Mass/Vol] 197 mg/dL [facility] Comment on above: Result Comment: PERF ORMED BY: [facility] [address] [place] [address] PATHOLOGIST [employer]CH[employer]IC CLEVE CANDELARIA M.D. Performed By: #### A 1C WT eA, CMP, CBC, LIPID ####[facility] [place] HbA1c (Bld) [Mass fraction] 8.5 % High 4.3-5.6 [facility] Comment on above: Result Comment: Incr eased risk for diabetes: 5.7 - 6.4 diabetes: >6.4 glycemic control for adults with diabetes: <7.0 Performed By: #### A 1C WT eA, CMP, CBC, LIPID ####[facility] [id number] Alanine aminotransferase [En zymatic activity/volume] in Serum or PlasmaOrdered By: Josh Bunting on 04-21-2023 ALT [Catalytic activity/Vol] 19 U/L 7-52 [facility] Albumin [Mass/volume] in Ser um or Plasma by Bromocresol green (BCG) dye binding methoOrdered By: Josh Bunting on 04-21-2023 Albumin BCG dye [Mass/Vol] 4.2 g/dL 3.5-5.7 [facility] Alkaline phosphatase [Enzyma tic activity/volume] in Serum or PlasmaOrdered By: Josh Bunting on 04-21-2023 ALP [Catalytic activity/Vol] 67 U/L 34-104 [facility] Aspartate aminotransferase [ Enzymatic activity/volume] in Serum or PlasmaOrdered By: Josh Bunting on 04-21-2023 AST [Catalytic activity/Vol] 16 U/L 13-39 [facility] Basophils Auto (Bld) [#/Vol] Ordered By: Josh Bunting on 04-21-2023 Basophils (Bld) [#/Vol] 0.1 10*3/uL 0.0-0.2 [facility] Basophils/100 WBC Auto (Bld) Ordered By: Josh Bunting on 04-21-2023 Basophils/100 WBC (Bld) 0.9 % . [facility] Bilirubin.total [Mass/volume ] in Serum or PlasmaOrdered By: Josh Bunting on 04-21-2023 Bilirubin [Mass/Vol] 0.4 mg/dL 0.3-1.0 [facility] Calcium [Mass/volume] in Ser um or PlasmaOrdered By: Josh Bunting on 04-21-2023 Calcium [Mass/Vol] 9.3 mg/dL 8.6-10.3 [facility] Carbon dioxide, total [Moles /volume] in Serum or PlasmaOrdered By: Josh Bunting on 04-21-2023 CO2 [Moles/Vol] 30.3 mmol/L 21.0-31.0 [facility] Chloride [Moles/volume] in S raffi or PlasmaOrdered By: Josh Bunting on 04-21-2023 Chloride [Moles/Vol] 99 mmol/L 98-107 [facility] Cholesterol [Mass/volume] in Serum or PlasmaOrdered By: Josh Bunting on 04-21-2023 Cholesterol [Mass/Vol] 300 mg/dL 140-200 [facility] Comment on above: Chol less than 200 m g/dl low riskChol 201-239 mg/dl borderline riskChol 240 mg/dl and greater high risk Cholesterol in LDL Calc [Mas s/Vol]Ordered By: Josh Bunting on 04-21-2023 Cholesterol in LDL [Mass/Vol] 207 mg/dL 0-100 [facility] Comment on above: LDL ATP III CLASSIFI CATIONLDL less than 100 mg/dL OptimalLDL 100-129 mg/dL Near or above optimalLDL 130-159 mg/dL Borderline highLDL 160-189 mg/dL HighLDL greater than 189 mg/dL Very high Cholesterol in VLDL Calc [Ma ss/Vol]Ordered By: Josh Bunting on 04-21-2023 Cholesterol in VLDL [Mass/Vol] 32 mg/dL [facility] Complete Blood Count Auto Di ffon 04-21-2023 Basophils (Bld) [#/Vol] 0.1 10*3/uL Normal 0.0-0.2 [facility] Comment on above: Result Comment: PERF ORMED BY: [facility] [address] [place] [address] PATHOLOGIST [employer]CH[employer] CLEVE CANDELARIA M.D. Performed By: #### A 1C WTH eA, CMP, CBC, LIPID #### [address] Basophils/100 WBC (Bld) 0.9 % Normal . [facility] Comment on above: Performed By: #### A 1C WTH eA, CMP, CBC, LIPID #### [address] Eosinophils (Bld) [#/Vol] 0.2 10*3/uL Normal 0.0-0.45 [facility] Comment on above: Performed By: #### A 1C WTH eA, CMP, CBC, LIPID #### [address] Eosinophils/100 WBC (Bld) 2.1 % Normal . [facility] Comment on above: Performed By: #### A 1C WTH eA, CMP, CBC, LIPID #### [address] Erythrocyte distribution width (RBC) [Ratio] 15.0 % High 12.0-14.8 [facility] Comment on above: Performed By: #### A 1C WTH eA, CMP, CBC, LIPID #### [address] Hematocrit (Bld) [Volume fraction] 48.8 % Normal 38.8-50.0 [facility] Comment on above: Performed By: #### A 1C WTH eA, CMP, CBC, LIPID #### [address] Hemoglobin (Bld) [Mass/Vol] 16.7 g/dL Normal 13.0-17.0 [facility] Comment on above: Performed By: #### A 1C WTH eA, CMP, CBC, LIPID #### [address] Lymphocytes (Bld) [#/Vol] 1.9 10*3/uL Normal 1.00-4.8 [facility] Comment on above: Performed By: #### A 1C WTH eA, CMP, CBC, LIPID #### [address] Lymphocytes/100 WBC (Bld) 26.3 % Normal . [facility] Comment on above: Performed By: #### A 1C WTH eA, CMP, CBC, LIPID #### [address] MCH (RBC) [Entitic mass] 32.5 pg Normal 27.5-35.2 [facility] Comment on above: Performed By: #### A 1C WTH eA, CMP, CBC, LIPID #### [address] MCV (RBC) [Entitic vol] 95.2 fL Normal 83.5-101 F [facility] Comment on above: Performed By: #### A 1C WTH eA, CMP, CBC, LIPID #### [address] Mean Corpuscular HGB Conc 34.2 g/dL Normal 32.5-35.6 [facility] Comment on above: Performed By: #### A 1C WTH eA, CMP, CBC, LIPID #### [address] Monocytes (Bld) [#/Vol] 0.4 10*3/uL Normal 0.0-0.8 [facility] Comment on above: Performed By: #### A 1C WTH eA, CMP, CBC, LIPID #### [address] Monocytes/100 WBC (Bld) 5.5 % Normal . [facility] Comment on above: Performed By: #### A 1C WTH eA, CMP, CBC, LIPID #### [address] Neutrophils (Bld) [#/Vol] 4.6 10*3/uL Normal 1.8-7.7 [facility] Comment on above: Performed By: #### A 1C WTH eA, CMP, CBC, LIPID #### [address] Neutrophils/100 WBC (Bld) 65.2 % Normal . [facility] Comment on above: Performed By: #### A 1C WTH eA, CMP, CBC, LIPID #### [address] NRBC% 0.0 /100{WBC} Normal 0-0.5 [facility] Comment on above: Performed By: #### A 1C WTH eA, CMP, CBC, LIPID #### [address] Platelet mean volume (Bld) [Entitic vol] 8.6 fL Normal 6.6-10.1 [facility] Comment on above: Performed By: #### A 1C WTH eA, CMP, CBC, LIPID #### [address] Platelets (Bld) [#/Vol] 200 10*3/uL Normal 150-450 [facility] Comment on above: Performed By: #### A 1C WTH eA, CMP, CBC, LIPID #### [address] RBC (Bld) [#/Vol] 5.13 10*6/uL Normal 3.90-5.60 [facility] Comment on above: Performed By: #### A 1C WTH eA, CMP, CBC, LIPID #### [address] WBC (Bld) [#/Vol] 7.1 10*3/uL Normal 4.1-10.5 [facility] Comment on above: Performed By: #### A 1C WTH eA, CMP, CBC, LIPID #### [address] Comprehensive Metabolic Pane brennen 04-21-2023 Albumin [Mass/Vol] 4.2 g/dL Normal 3.5-5.7 [facility] Comment on above: Order Comment: PT FA STED 12 HOURS Performed By: #### A 1C WTH eA, CMP, CBC, LIPID ####[facility] [place] [place] [address] [facility] Albumin/Globulin [Mass ratio] 1.9 {ratio} Normal [facility] Comment on above: Order Comment: PT FA STED 12 HOURS Performed By: #### A 1C WTH eA, CMP, CBC, LIPID ####[facility] [place] [place] [address] [facility] ALP [Catalytic activity/Vol] 67 U/L Normal 34-104 [facility] Comment on above: Order Comment: PT FA STED 12 HOURS Performed By: #### A 1C WTH eA, CMP, CBC, LIPID ####[id number] [place] [address] [facility] ALT [Catalytic activity/Vol] 19 U/L Normal 7-52 [facility] Comment on above: Order Comment: PT FA STED 12 HOURS Performed By: #### A 1C WTH eA, CMP, CBC, LIPID ####[id number] [place] [address] [facility] Anion gap [Moles/Vol] 11.3 mmol/L Normal 6.0-15.0 [facility] Comment on above: Order Comment: PT FA STED 12 HOURS Performed By: #### A 1C WTH eA, CMP, CBC, LIPID ####[id number] [place] [address] [facility] AST [Catalytic activity/Vol] 16 U/L Normal 13-39 [facility] Comment on above: Order Comment: PT FA STED 12 HOURS Performed By: #### A 1C WTH eA, CMP, CBC, LIPID ####[id number] [place] [address] [facility] Bilirubin [Mass/Vol] 0.4 mg/dL Normal 0.3-1.0 [facility] Comment on above: Order Comment: PT FA STED 12 HOURS Performed By: #### A 1C WTH eA, CMP, CBC, LIPID ####[facility] [place] [place] [address] [facility] Calcium [Mass/Vol] 9.3 mg/dL Normal 8.6-10.3 [facility] Comment on above: Order Comment: PT FA STED 12 HOURS Performed By: #### A 1C WTH eA, CMP, CBC, LIPID ####[address] [id number] [place] [id number] [facility] Chloride [Moles/Vol] 99 mmol/L Normal 98-107 [facility] Comment on above: Order Comment: PT FA STED 12 HOURS Performed By: #### A 1C WTH eA, CMP, CBC, LIPID ####[place] [id number] [place] [id number] [facility] CO2 [Moles/Vol] 30.3 mmol/L Normal 21.0-31.0 [facility] Comment on above: Order Comment: PT FA STED 12 HOURS Performed By: #### A 1C WTH eA, CMP, CBC, LIPID ####[place] [id number] [place] [id number] [facility] Creatinine [Mass/Vol] 0.90 mg/dL Normal 0.70-1.30 [facility] Comment on above: Order Comment: PT FA STED 12 HOURS Performed By: #### A 1C WTH eA, CMP, CBC, LIPID ####[place] [id number] [place] [id number] [facility] GFR/1.73 sq M.predicted MDRD (S/P/Bld) [Vol rate/Area] mL/min/{1.73_m2} Normal [facility] Comment on above: Order Comment: PT FA STED 12 HOURS Performed By: #### A 1C WTH eA, CMP, CBC, LIPID ####[place] [id number] [place] [id number] [facility] Globulin (S) [Mass/Vol] 2.2 g/dL Normal [facility] Comment on above: Order Comment: PT FA STED 12 HOURS Performed By: #### A 1C WTH eA, CMP, CBC, LIPID ####[place] [id number] [place] [id number] [facility] Glucose [Mass/Vol] 149 mg/dL High 70-100 [facility] Comment on above: Order Comment: PT FA STED 12 HOURS Result Comment: Howe om Glucose Reference Range is dependent on time and content of last meal. Glucose of more than 200 mg/dL in a nonstressed, ambulatory subject supports the diagnosis of Diabetes Mellitus. ADA recommended reference range Performed By: #### A 1C WTCeleste eA, CMP, CBC, LIPID ####[place] [id number] Potassium [Moles/Vol] 4.6 mmol/L Normal 3.5-5.1 [facility] Comment on above: Order Comment: PT FA STED 12 HOURS Performed By: #### A 1C WTH eA, CMP, CBC, LIPID ####[place] [id number] [place] [id number] [facility] Protein [Mass/Vol] 6.4 g/dL Normal 6.4-8.9 [facility] Comment on above: Order Comment: PT FA STED 12 HOURS Performed By: #### A 1C WT eA, CMP, CBC, LIPID ####[place] [id number] Sodium [Moles/Vol] 136 mmol/L Normal 136-145 [facility] Comment on above: Order Comment: PT FA STED 12 HOURS Performed By: #### A 1C WT eA, CMP, CBC, LIPID ####[place] [id number] [place] [id number] [facility] Urea nitrogen [Mass/Vol] 25 mg/dL Normal 7-25 [facility] Comment on above: Order Comment: PT FA STED 12 HOURS Performed By: #### A 1C WT eA, CMP, CBC, LIPID ####[place] [id number] [facility] Creatinine [Mass/volume] in Serum or PlasmaOrdered By: Josh Bunting on 04-21-2023 Creatinine [Mass/Vol] 0.90 mg/dL 0.70-1.30 [facility] Eosinophils Auto (Bld) [#/Vo l]Ordered By: Josh Bunting on 04-21-2023 Eosinophils (Bld) [#/Vol] 0.2 10*3/uL 0.0-0.45 [facility] Eosinophils/100 WBC Auto (Bl d)Ordered By: Josh Bunting on 04-21-2023 Eosinophils/100 WBC (Bld) 2.1 % . [facility] Erythrocyte distribution wid th Auto (RBC) [Ratio]Ordered By: Josh Bunjayleen on 04-21-2023 Erythrocyte distribution width (RBC) [Ratio] 15.0 % 12.0-14.8 [facility] Globulin Calc (S) [Mass/Vol] Ordered By: Josh Melvin on 04-21-2023 Globulin (S) [Mass/Vol] 2.2 g/dL F [facility] Glucose [Mass/volume] in Ser um or PlasmaOrdered By: Josh Bunjayleen on 04-21-2023 Glucose [Mass/Vol] 149 mg/dL 70-100 [facility] Comment on above: ADA recommended refe rence rangeRandom Glucose Reference Range is dependent on time and content of last meal. Glucose of more than 200 mg/dL in a nonstressed, ambulatory subject supports the diagnosis of Diabetes Mellitus. Glucose mean value [Mass/vol ume] in Blood Estimated from glycated hemoglobinOrdered By: Josh Melvin on 04-21-2023 Average glucose Estimated from glycated hemoglobin (Bld) [Mass/Vol] 197 mg/dL [facility] Hematocrit Auto (Bld) [Volum e fraction]Ordered By: Josh Melvin on 04-21-2023 Hematocrit (Bld) [Volume fraction] 48.8 % 38.8-50.0 [facility] Hemoglobin A1c percentageOrd ered By: Josh Melvin on 04-21-2023 HbA1c (Bld) [Mass fraction] 8.5 % 4.3-5.6 [facility] Comment on above: Increased risk for d iabetes: 5.7 - 6.4diabetes: >6.4glycemic control for adults with diabetes: <7.0 Hemoglobin [Mass/volume] in BloodOrdered By: Josh Melvin on 04-21-2023 Hemoglobin (Bld) [Mass/Vol] 16.7 g/dL 13.0-17.0 [facility] Leukocytes [#/volume] correc charanjit for nucleated erythrocytes in Blood by Automated counOrdered By: Josh Melvin on 04-21-2023 WBC corrected for nucl RBC Auto (Bld) [#/Vol] 7.1 10*3/uL 4.1-10.5 [facility] Lipid Panelon 04-21-2023 Cholesterol [Mass/Vol] 300 mg/dL High 140-200 [facility] Comment on above: Order Comment: PT FA STED 12 HOURS Result Comment: Chol less than 200 mg/dl low risk Chol 201-239 mg/dl borderline risk Chol 240 mg/dl and greater high risk Performed By: #### A 1C WTH eA, CMP, CBC, LIPID ####[facility] [place] [place] [id number] [facility] Cholesterol in HDL [Mass/Vol] 61 mg/dL Normal 23-92 [facility] Comment on above: Order Comment: PT FA STED 12 HOURS Result Comment: HDL CHOL ATP-III CLASSIFICATION Cardiovascular Risk HDL > or equal to 60 mg/dL LOW HDL < 40 mg/dL HIGH Performed By: #### A 1C WTH eA, CMP, CBC, LIPID ####[place] [id number] Cholesterol.total/Genevieve sterol in HDL [Mass ratio] 4.9 {ratio} Normal <5.0 [facility] Comment on above: Order Comment: PT FA STED 12 HOURS Result Comment: PERF ORMED BY: [facility] [address] [place] [id number] PATHOLOGIST [employer] MECHANIC CLEVE CANDELARIA M.D. Performed By: #### A 1C WTH eA, CMP, CBC, LIPID ####[place] [id number] [place] [id number] [facility] LDL Cholesterol,Calculated 207 mg/dL High 0-100 [facility] Comment on above: Order Comment: PT FA STED 12 HOURS Result Comment: LDL ATP III CLASSIFICATION LDL less than 100 mg/dL Optimal LDL 100-129 mg/dL Near or above optimal LDL 130-159 mg/dL Borderline high LDL 160-189 mg/dL High LDL greater than 189 mg/dL Very high Performed By: #### A 1C WTH eA, CMP, CBC, LIPID ####[place] [id number] [place] [id number] [facility] Triglyceride w/Reflex 162 mg/dL High 0-149 [facility] Comment on above: Order Comment: PT FA STED 12 HOURS Result Comment: TRIG ATP III CLASSIFICATION TRIG less than 150 mg/dL Normal TRIG 150-199 mg/dL Borderline high TRIG 200-500 mg/dL High TRIG greater than 500 mg/dL Very high Standard traceable to the Center for Disease Conrtrol and Prevention (CDC) test method. Performed By: #### A 1C WTH eA, CMP, CBC, LIPID ####[facility] [id number] VLDL CHOLESTEROL 32 mg/dL Normal [facility] Comment on above: Order Comment: PT FA STED 12 HOURS Performed By: #### A 1C WTH eA, CMP, CBC, LIPID ####[facility] [id number] Lymphocytes Auto (Bld) [#/Vo l]Ordered By: Josh Bunting on 04-21-2023 Lymphocytes (Bld) [#/Vol] 1.9 10*3/uL 1.00-4.8 [facility] Lymphocytes/100 WBC Auto (Bl d)Ordered By: Josh Bunting on 04-21-2023 Lymphocytes/100 WBC (Bld) 26.3 % . [facility] MCH Auto (RBC) [Entitic mass ]Ordered By: Josh Bunting on 04-21-2023 MCH (RBC) [Entitic mass] 32.5 pg 27.5-35.2 [facility] MCHC Auto (RBC) [Mass/Vol]Or dered By: Josh Bunting on 04-21-2023 MCHC (RBC) [Mass/Vol] 34.2 g/dL 32.5-35.6 [facility] MCV Auto (RBC) [Entitic vol] Ordered By: Josh Bunting on 04-21-2023 MCV (RBC) [Entitic vol] 95.2 fL 83.5-101 F [facility] Monocytes Auto (Bld) [#/Vol] Ordered By: Josh Bunting on 04-21-2023 Monocytes (Bld) [#/Vol] 0.4 10*3/uL 0.0-0.8 [facility] Monocytes/100 WBC Auto (Bld) Ordered By: Josh Bunting on 04-21-2023 Monocytes/100 WBC (Bld) 5.5 % . [facility] Neutrophils Auto (Bld) [#/Vo l]Ordered By: Josh Bunting on 04-21-2023 Neutrophils (Bld) [#/Vol] 4.6 10*3/uL 1.8-7.7 [facility] Neutrophils/100 WBC Auto (Bl d)Ordered By: Josh Bunting on 04-21-2023 Neutrophils/100 WBC (Bld) 65.2 % . [facility] No Panel InformationOrdered By: Josh Bunting on 04-21-2023 Estimated GFR (CKD-EPI) > 60.0 mL/Min [facility] Creatinine Clearance (Chem N/A [facility] Nucleated erythrocytes [Pres ence] in Blood by Automated countOrdered By: Josh Bunting on 04-21-2023 Nucleated RBC Auto Ql (Bld) 0.0 /100{WBC} 0-0.5 [facility] Platelet mean volume Auto (B ld) [Entitic vol]Ordered By: Josh Bunting on 04-21-2023 Platelet mean volume (Bld) [Entitic vol] 8.6 fL 6.6-10.1 [facility] Platelets Auto (Bld) [#/Vol] Ordered By: Josh Bunting on 04-21-2023 Platelets (Bld) [#/Vol] 200 10*3/uL 150-450 [facility] Potassium [Moles/volume] in Serum or PlasmaOrdered By: Josh Bunting on 04-21-2023 Potassium [Moles/Vol] 4.6 mmol/L 3.5-5.1 [facility] Protein [Mass/volume] in Ser um or PlasmaOrdered By: Josh Bunting on 04-21-2023 Protein [Mass/Vol] 6.4 g/dL 6.4-8.9 [facility] RBC Auto (Bld) [#/Vol]Ordere d By: Josh Bunting on 04-21-2023 RBC (Bld) [#/Vol] 5.13 10*6/uL 3.90-5.60 [facility] Serum or plasma albumin/glob ulin mass ratioOrdered By: Josh Bunting on 04-21-2023 Albumin/Globulin [Mass ratio] 1.9 {ratio} [facility] Serum or plasma anion gap de terminationOrdered By: Josh Bunting on 04-21-2023 Anion gap [Moles/Vol] 11.3 mmol/L 6.0-15.0 [facility] Serum or plasma high density lipoprotein (HDL) cholesterol measurementOrdered By: Josh Bunjayleen on 04-21-2023 Cholesterol in HDL [Mass/Vol] 61 mg/dL 23-92 [facility] Comment on above: HDL CHOL ATP-III CLA SSIFICATION Cardiovascular RiskHDL > or equal to 60 mg/dL LOWHDL < 40 mg/dL HIGH Serum or plasma total choles terol/high density lipoprotein (HDL) cholesterol mass ratOrdered By: Josh Bunting on 04-21-2023 Cholesterol.total/Genevieve sterol in HDL [Mass ratio] 4.9 {ratio} <5.0 [facility] Sodium [Moles/volume] in Ser um or PlasmaOrdered By: Josh Bunting on 04-21-2023 Sodium [Moles/Vol] 136 mmol/L 136-145 [facility] Triglyceride [Mass/volume] i n Serum or PlasmaOrdered By: Josh Bunting on 04-21-2023 Triglyceride [Mass/Vol] 162 mg/dL 0-149 F [facility] Comment on above: TRIG ATP III CLASSIF ICATIONTRIG less than 150 mg/dL NormalTRIG 150-199 mg/dL Borderline highTRIG 200-500 mg/dL High TRIG greater than 500 mg/dL Very highStandard traceable to the Center for Disease Conrtrol and Prevention (CDC) test method. Urea nitrogen [Mass/volume] in Serum or PlasmaOrdered By: Josh Bunting on 04-21-2023 Urea nitrogen [Mass/Vol] 25 mg/dL 7- [facility] WBC Auto (Bld) [#/Vol]Ordere d By: Josh Bunting on 04-21-2023 WBC (Bld) [#/Vol] 7.1 10*3/uL 4.1-10.5 [facility] CNPNon 04-10-2023 [facility] Telephone (OTOL) RENEANIYAH ([id number]) 1960 Date Time Provider Department 04/10/23 DONNY PERALTA [facility] During your visit today, we recorded the [...] Encounter Status:Closed by KIMBERLI COUCH on 04/15/23 [facility] CNOVon 03-26-2023 CN Office Visit (OTOLCC ) NIYAH MEIER ([id number]) 1960 M Date Time Provider Department 03/26/23 11:20 AM DONNY PERALTA [facility] During your visit today, we recorded the following information about you: Pulse Respiration 88/minute 17/minute Donny Peralta APRN.CORE RESCUER 03/26/2023 4:15 PM Signed Mr. Meier is [...] 2 to 3 weeks time. Donny Peralta APRN.CORE RESCUER CC: Josh Melvin DO Referring Provider: JOSH MELVIN [[id number]] Allergies As of Date: 03/26/2023 (No Known Allergies) Date Reviewed: 03/26/2023 Reviewed by: Olive Hui LPN - Fully Assessed Reason for Visit: Mouth lesion on left side [Other] Primary Visit Diagnosis:Laryngeal candidiasis [B37.89] Other Visit Diagnoses:Glossitis [K14.0] Oral candidiasis [B37.0] Hoarseness of voice [R49.0] History of alcohol abuse [F10.11] Order(s):COMP METABOLIC PANEL [SQCMP] Order #: [id number] FUTURE clotrimazole (MYCELEX) 10 mg trocheUse 1 Bud as instructed four times daily for 14 days.Disp: 56 tabletRfl: 0 Prescriptions as of 03/26/2023 - busPIRone HCl 30 mg tablet TAKE 1 TABLET BY MOUTH THREE TIMES DAILY FOR ANXIETY - celec (more content not included)... Normal [facility] Comprehensive metabolic 2000 panelon 03-26-2023 Albumin [Mass/Vol] 4.4 g/dL Normal 3.9-4.9 [facility] Comment on above: Order Comment: Ilana guillen Type: BLOOD SPECIMEN Ordering Facility: [facility] Address: [address] [place], [place] [address] Performed By: #### 2 4323-8 #### [facility] CLIA [id number] [address] [place] [address] [place] [address] [place] ALP [Catalytic activity/Vol] 90 U/L Normal 38-113 [facility] Comment on above: Order Comment: Ilana guillen Type: BLOOD SPECIMEN Ordering Facility: [facility] Address: [address] [place] [address] Performed By: #### 2 4323-8 #### [facility] CLIA [id number] [address] [place] ALT [Catalytic activity/Vol] 22 U/L Normal 10-54 [facility] Comment on above: Order Comment: Speci men Type: BLOOD SPECIMEN Ordering Facility: [facility] Address: [address] Performed By: #### 2 4323-8 #### [facility] CLIA [id number] [address] [place] [address] [place] Anion gap [Moles/Vol] 11 mmol/L Normal 9-18 [facility] Comment on above: Order Comment: Speci men Type: BLOOD SPECIMEN Ordering Facility: [facility] Address: [address] Performed By: #### 2 4323-8 #### [facility] CLIA [id number] [address] [place] AST [Catalytic activity/Vol] 23 U/L Normal 14-40 [facility] Comment on above: Order Comment: Speci men Type: BLOOD SPECIMEN Ordering Facility: [facility] Address: [address] [place] [address] Performed By: #### 2 4323-8 #### [facility] CLIA [id number] [address] [place] [address] [place] Bilirubin [Mass/Vol] 0.4 mg/dL Normal 0.2-1.3 [facility] Comment on above: Order Comment: Speci men Type: BLOOD SPECIMEN Ordering Facility: [facility] Address: [address] Performed By: #### 2 4323-8 #### [facility] CLIA [id number] [address] [place] [address] [place] Calcium [Mass/Vol] 9.6 mg/dL Normal 8.5-10.2 [facility] Comment on above: Order Comment: Speci men Type: BLOOD SPECIMEN Ordering Facility: [facility] Address: [address] [place], [place] [address] Performed By: #### 2 4323-8 #### [facility] CLIA [id number] [address] [place] [address] [place] Chloride [Moles/Vol] 97 mmol/L Normal 97-105 [facility] Comment on above: Order Comment: Speci men Type: BLOOD SPECIMEN Ordering Facility: [facility] Address: [address] [place], [place] [address] Performed By: #### 2 4323-8 #### [facility] CLIA [id number] [address] [place] [address] [place] CO2 [Moles/Vol] 27 mmol/L Normal 22-30 [facility] Comment on above: Order Comment: Speci men Type: BLOOD SPECIMEN Ordering Facility: [facility] Address: [address] [place], [place] [address] Performed By: #### 2 4323-8 #### [facility] CLIA [id number] [address] [place] [address] [place] Creatinine [Mass/Vol] 0.99 mg/dL Normal 0.73-1.22 [facility] Comment on above: Order Comment: Speci men Type: BLOOD SPECIMEN Ordering Facility: [facility] Address: [address] Performed By: #### 2 4323-8 #### [facility] CLIA [id number] [address] [place] [address] [place] ESTIMATED GLOMERULAR FILTRATION RATE 85 mL/min/1.73m??? Normal >=60 [facility] Comment on above: Order Comment: Speci men Type: BLOOD SPECIMEN Ordering Facility: [facility] Address: [address] [place] [id number] Result Comment: Neha mated Glomerular Filtration Rate [...] GFR. Performed By: #### 2 4323-8 #### [facility] CLIA [id number] [address] [place] [address] [place] Glucose [Mass/Vol] 85 mg/dL Normal 74-99 [facility] Comment on above: Order Comment: Ilana guillen Type: BLOOD SPECIMEN Ordering Facility: [facility] Address: [address] [place] [address] Result Comment: The [place] [employer] Association (ADA) provides guidance for cutoff [...] Standards of Medical Care in Diabetes 2016, [place] [employer]. Diabetes Care. 2016.39(Suppl 1). Performed By: #### 2 4323-8 #### [facility] CLIA [id number] [address] [place] [address] [place] Potassium [Moles/Vol] 4.5 mmol/L Normal 3.7-5.1 [facility] Comment on above: Order Comment: Ilana guillen Type: BLOOD SPECIMEN Ordering Facility: [facility] Address: [address] [place] [id number] Performed By: #### 2 4323-8 #### [facility] CLIA [id number] [address] [place] [address] [place] Protein [Mass/Vol] 7.0 g/dL Normal 6.3-8.0 [facility] Comment on above: Order Comment: Speci men Type: BLOOD SPECIMEN Ordering Facility: [facility] Address: [address] [place] [address] Performed By: #### 2 4323-8 #### [facility] CLIA [id number] [address] [place] [address] [place] Sodium [Moles/Vol] 135 mmol/L Low 136-144 [facility] Comment on above: Order Comment: Speci men Type: BLOOD SPECIMEN Ordering Facility: [facility] Address: [address] [place] [address] Performed By: #### 2 4323-8 #### [facility] CLIA [id number] [address] [place] [address] [place] Urea nitrogen [Mass/Vol] 25 mg/dL High 9-24 [facility] Comment on above: Order Comment: Speci men Type: BLOOD SPECIMEN Ordering Facility: [facility] Address: [address] [place] [address] Performed By: #### 2 4323-8 #### [facility] CLIA [id number] [address] [place] [address] [place] XR lumbar spine 2-3V*on 01-25 XR lumbar spine 2-3V* [place] [address] XRay Report Signed Patient: Koko Meier MR#: [id number] : 1960 Acct:[id number] Age/Sex: 62 / M ADM Date: 02/10/23 Loc: XD Room: Type: [facility] Attending Dr: Errol Humphrey MD Copies to: Errol Humphrey MD Ordering Provider: Errol Humphrey MD Date of Service: 02/10/23 XR/XR cervical spine 2V: M96.1 ([id number]) XR/XR lumbar spine 2-3V*: M96.1 CLINICAL DATA: [...] Monika Eastman M.D.02/10/2023 12:29 PM Dictation Location: [place] [address] Transcribed By: SHIRLEY 02/10/23 1229 Dictated By: Monika Eastman MD 02/10/23 1220 Signed By: 02/10/[address] [facility] [address] chest wo conon 12-31-2022 CT chest wo con [facility] Main [place] [address] [place] [address] CT Scan Report Signed Patient: Koko Meier MR#: [id number] : 1960 Acct:[id number] Age/Sex: 62 / M ADM Date: 12/31/22 Loc: [facility] Room: Type: [facility] CLI Attending Dr: Mariel Mcgraw MD Copies to: [...] favored. Impression dictated by: Scooby Borrego Jr., D.O.12/31/2022 12:47 PM Dictation Location: [place] [address] Transcribed By: [facility] 12/31/22 1247 Dictated By: Scooby Borrego Jr, DO 12/31/22 1243 Signed By: 12/31/22 1247 [facility] Body fluid albumin measureme nt (mass/volume)Ordered By: Josh Melvin on 09-30-2022 Albumin (Body fld) [Mass/Vol] 3.6 g/dL 3.2-5.5 [facility] Cholesterol [Mass/volume] in Serum or PlasmaOrdered By: Josh Melvin on 09-30-2022 Cholesterol [Mass/Vol] 154 mg/dL 140-200 [facility] Comment on above: Chol less than 200 m g/dl low riskChol 201-239 mg/dl borderline riskChol 240 mg/dl and greater high risk Cholesterol in LDL Calc [Mas s/Vol]Ordered By: Josh Melvin on 09-30-2022 Cholesterol in LDL [Mass/Vol] 93 mg/dL 0-100 [facility] Comment on above: LDL ATP III CLASSIFI CATIONLDL less than 100 mg/dL OptimalLDL 100-129 mg/dL Near or above optimalLDL 130-159 mg/dL Borderline highLDL 160-189 mg/dL HighLDL greater than 189 mg/dL Very high Cholesterol in VLDL Calc [Ma ss/Vol]Ordered By: Josh Melvin on 09-30-2022 Cholesterol in VLDL [Mass/Vol] 17 mg/dL [facility] Creatinine and Glomerular fi ltration rate.predicted panel (S/P/Bld)Ordered By: Josh Melvin on 09-30-2022 Creatinine [Mass/Vol] 0.89 mg/dL 0.64-1.27 [facility] Estimated glomerular filtrat ion rate (GFR) non- AmericanOrdered By: Josh Melvin on 09-30-2022 GFR/1.73 sq M.predicted among non-blacks MDRD (S/P/Bld) [Vol rate/Area] > 60 mL/Min [facility] Globulin Calc (S) [Mass/Vol] Ordered By: Josh Melvin on 09-30-2022 Globulin (S) [Mass/Vol] 3.1 g/dL [facility] Glucose mean value [Mass/vol ume] in Blood Estimated from glycated hemoglobinOrdered By: Josh Melvin on 09-30-2022 Average glucose Estimated from glycated hemoglobin (Bld) [Mass/Vol] 180 mg/dL [facility] Hemoglobin A1c percentageOrd ered By: Josh Melvin on 09-30-2022 HbA1c (Bld) [Mass fraction] 7.9 % 4.3-5.6 [facility] Comment on above: Increased risk for d iabetes: 5.7 - 6.4diabetes: >6.4glycemic control for adults with diabetes: <7.0 No Panel InformationOrdered By: Josh Melvin on 09-30-2022 Estimated GFR () > 60 mL/Min [facility] Comment on above: GFR estimated refere nce range: According to KDOQI guidelines, <60 ml/min/1.73m2 is sufficient to diagnose a patient with chronic kidney disease. Pharmacy Creatinine Clearance (Chem N/A [facility] Protein [Mass/volume] in Ser um or PlasmaOrdered By: Josh Melvin on 09-30-2022 Protein [Mass/Vol] 6.7 g/dL 6.1-7.9 [facility] Serum or plasma alanine cullen otransferase measurement without P-5'-P (enzymatic activiOrdered By: Josh Melvin on 09-30-2022 ALT No additional P-5'-P [Catalytic activity/Vol] 19 U/L 10-60 [facility] Serum or plasma albumin/glob ulin mass ratioOrdered By: Josh Melvin on 09-30-2022 Albumin/Globulin [Mass ratio] 1.2 {ratio} [facility] Serum or plasma alkaline juliette sphatase measurement (enzymatic activity/volume)Ordered By: Josh Melvin on 09-30-2022 ALP [Catalytic activity/Vol] 78 U/L 32-92 [facility] Serum or plasma anion gap de terminationOrdered By: Josh Melvin on 09-30-2022 Anion gap [Moles/Vol] 19.0 mmol/L 6.0-15.0 [facility] Serum or plasma aspartate am inotransferase measurement (enzymatic activity/volume)Ordered By: Josh Melvin on 09-30-2022 AST [Catalytic activity/Vol] 17 U/L 10-42 [facility] Serum or plasma calcium ezra urement (mass/volume)Ordered By: Josh Melvin on 09-30-2022 Calcium [Mass/Vol] 9.6 mg/dL 8.2-10.2 [facility] Serum or plasma chloride brenda surement (moles/volume)Ordered By: Josh Melvin on 09-30-2022 Chloride [Moles/Vol] 94 mmol/L 95-114 [facility] Serum or plasma glucose ezra urement (mass/volume)Ordered By: Josh Melvin on 09-30-2022 Glucose [Mass/Vol] 149 mg/dL 70-100 [facility] Comment on above: ADA recommended refe rence rangeRandom Glucose Reference Range is dependent on time and content of last meal. Glucose of more than 200 mg/dL in a nonstressed, ambulatory subject supports the diagnosis of Diabetes Mellitus. Serum or plasma high density lipoprotein (HDL) cholesterol measurementOrdered By: Josh Melvin on 09-30-2022 Cholesterol in HDL [Mass/Vol] 44 mg/dL 29-71 [facility] Comment on above: HDL CHOL ATP-III CLA SSIFICATION Cardiovascular RiskHDL > or equal to 60 mg/dL LOWHDL < 40 mg/dL HIGH Serum or plasma potassium me asurement (moles/volume)Ordered By: Josh Melvin on 09-30-2022 Potassium [Moles/Vol] 4.9 mmol/L 3.5-5.1 [facility] Serum or plasma sodium measu rement (moles/volume)Ordered By: Josh Melvin on 09-30-2022 Sodium [Moles/Vol] 137 mmol/L 136-146 [facility] Serum or plasma total biliru bin measurement (mass/volume)Ordered By: Josh Melvin on 09-30-2022 Bilirubin [Mass/Vol] 0.7 mg/dL 0.3-1.2 [facility] Serum or plasma total carbon dioxide measurement (moles/volume)Ordered By: Josh Melvin on 09-30-2022 CO2 [Moles/Vol] 28.9 mmol/L 22.0-30.0 [facility] Serum or plasma total choles terol/high density lipoprotein (HDL) cholesterol mass ratOrdered By: Josh Melvin on 09-30-2022 Cholesterol.total/Genevieve sterol in HDL [Mass ratio] 3.5 {ratio} <5.0 [facility] Serum or plasma urea nitroge n measurement (mass/volume)Ordered By: Josh Melvin on 09-30-2022 Urea nitrogen [Mass/Vol] 19 mg/dL 9- [facility] Triglyceride [Mass/volume] i n Serum or PlasmaOrdered By: Johs Melvin on 09-30-2022 Triglyceride [Mass/Vol] 86 mg/dL 35-149 [facility] Comment on above: TRIG ATP III CLASSIF ICATIONTRIG less than 150 mg/dL NormalTRIG 150-199 mg/dL Borderline highTRIG 200-500 mg/dL High TRIG greater than 500 mg/dL Very highStandard traceable to the Center for Disease Conrtrol and Prevention (CDC) test method. IntraOperative Documentson 0 04-25-2021 IntraOperative Documents [id number] Normal [facility] Main OR Intraoperative Recor don 04-25-2021 Main OR Intraoperative Record IntraOp Document Type FT Summary Primary Physician: Kwame Yang DO Finalized Date/Time: 04/25/21 16:46:35 Pt. Name: KOKO MEIER Aura Estes/Sex: 1960 Male Med Rec #: [id number] Physician: Kwame Yang DO Financial #: [id number] Pt. Type: I Room/Bed: [place] [address] Admit/Disch: 04/18/21 08:03:48 - 04/19/21 13:50:00 Institution: [...] 3 Case Attendee Jimmy Winkler CRNA, DO, Kwame Alas MANAGER PUBLISHING, Ailyn Hankins Role Performed Anesthesiologist Surgeon - Primary MANAGER PUBLISHING/SA Employment Instructional Associate Time In 04/18/21 10:01:00 04/18/21 10:01:00 04/18/21 10:01:00 Time Out 04/18/21 12:40:00 04/18/21 12:40:00 04/18/21 12:40:00 Procedure SHOULDER TOTAL SHOULDER TOTAL SHOULDER TOTAL ARTHROPLASTY(Right) ARTHROPLASTY(Right) ARTHROPLASTY(Right) Comments supervised by Dr. Linton Last Modified By: Kasi KOO, Nandini Villaseñor RN, Nandini Villaseñor RN, Nandini Chavarria 04/18/21 12:41:34 04/18/21 12:41:34 04/18/21 12:41:34 Entry 4 Entry 5 Entry 6 Case Attendee Kasi KOO, Nandini Goldberg MANAGER PUBLISHING, Christiano Ballard MANAGER PUBLISHING, FA, Windy Sanches Role Performed Assistant Librarian - Primary Scrub - Primary Staff - [...] Villaseñor RN 04/18/21 12:41:34 General Comments: Arthrex german Aleman in room Perioperative Protocols FT Pre-Care [...] Time Out Kwame Yang DO, Given Participants Jimmy Winkler CRNA, Bishop MANAGER PUBLISHING, Ailyn E, Nandini Villaseñor RN, Boyer MANAGER PUBLISHING, Elio Burnham MANAGER PUBLISHING, FA, Mensjeny K Time Out Complete 04/18/21 10:43:00 Outcomes [...] and tissue Entry 1 Skin Integrity Intact, [place], Warm, and Skin Abnormality No Dry (more content not included)... Normal [facility] Main OR Preoperative Recordo n 04-25-2021 Main OR Preoperative Record PreOp Document Type FT Summary Primary Physician: Kwame Yang DO Finalized Date/Time: 04/25/21 16:43:54 Pt. Name: KOKO MEIER Aura Hilton./Sex: 1960 Male Med Rec #: [id number] Physician: Kwame Yang DO Financial #: [id number] Pt. Type: I Room/Bed: [place] [address] Admit/Disch: 04/18/21 08:03:48 - 04/19/21 13:50:00 Institution: [...] By: Nandini Villaseñor RN 04/25/21 16:43 Normal [facility] Coding Summary.on 04-24-2021 Coding Summary. CD:[id number] G h0bWw+PGhlYWQ+LX9SFQB tO92knWVicQ4CV8wYDO5V DEPHYCDIUP0OPP9cgPG2L AnfY9XvvwHf QsbpnQNsGG16QOz8HTY8u OvfYTehjL9roBBgF3g4Sk DmVR60hS02MHctLAUlVwN 3LjZpbjsgbWFy H6wqFyMrdRUnYdk+PHRhY mxlIHdpZHRoPScxMDAlJy IldJicTC6tPl2pZNUuMRK vbGxhcHNlOiBj c0fgTHVbNAakEV6rkMqdA 5BngOQ3MBJbf1f1Kd14iT I+DFRgTDQ0zMmmGGses98 3SzYxv1mhENL4 lJNmCHbjVAU7W52vf2C5A SFuJZTbXVC5eIO0eB8qnC skqcqbB1OvjRZdHuF4NFE 2rDNbhH3naFcl vldrxB6zVzj+E35XYF1HC WQNSE0OWxo3G6YuDekztG I+NL08ALCaOY57nZFdnRV yx6wddMs9BvUw ITLdCDX3kAusIJzsp4QeO DRvR32aqGNfs3B3USHydD sjaDReKxVreSN9hQ2fLPb biitcp1zboasq Kpmdy1udre34dX36Q74dO NnoCRRqDUF2XYUxFDSfhN pqbz2yxD9jWn5+QEiqt9n mc5edrMs0KnTg IRIhhhGtoPbxPZM1c5BlP y58D4BlmPzng4NsMgu7ci 71pCZof0B7aPA7FMioIFG mjI4bCGkoTmI5 JAPdTsFriL63gZAuTOxwV e2boPanyVjbRW7uSDWaba asVIOinN2fDETgxTYusJi aOH0nFNEcsjph d611EfOdXTM0TGHukKLaV 3FekI3gRlNyXCRyAVBeE3 YomDUcIUymB071QZffSeI 3QSZarlWpP5Gk NJYedBolAaI7s2G3Hk2Sb 9AtfuixXMD3GWmaEBJ5Rl Q5JbPsEyB0Q8ViUag3PPH wpTkkYK6uS3St VEYhqzhurqaizXH3RBGbO ERcyZ27hOPlWPvjYe6rt4 U7f251OCHkHTRwhJ06Cb9 udDogMTBwdCBU nK6eguouj1hbtwggDfKeG RHxIYh6WUx3JYTrmNtkRk SwBTW9RxG8HMC4lTZevA0 lgNmfpvtyvR8f Oyc+D25azX3nLHN8ADX5x hjiPWWocwYeUX33GN45F3 RyPjwvdGFibGU+PGRpdiB cpDktXB1tDmWz z2lqy4BkUBduU7UgNRMcJ JfhVic2WDVcJSZ3gPD1bM 5eLPYqDIpuo3H1zOT3S4H qjqEhtf7sm6ra VFJvJRbkH28qsFJeq0G0G AOklXN2HWUrhTfjQsMfkF 93Oyc+CGSlbJzno5KmOua wk7xlr9meoIn2 IkFmFVHkwcHtjDynYSG7n 2QzDy23R51qBKtqDCBkNF UjSHRaYGOmoAqjsg4aeM2 wIi8+PGNvbCB3 aSQ6kE8nHPQeYxW6EGevA 580BpCpwFBvHlyem2rgy0 moeCl5InFfQLIfsqDfdAq cLDI7r1CkJd93 U35uXBadOSRpDMNvCJEvV RUoyNplyp1phS4kSt9+PC 5yx0xjav51lB90wWQ+PHR tNJL3yJscMRsm EDWuzI1nPGilEfE1EKDlV eDfiG94kLOiYVkiCn9brP xzaFezOJ0gVDDxfdsnw96 3OyGev4tyLJPd iRRjQXohSRN0K24si2U2F EYaYIWvZUI6vKZ6vG8fmZ lnbjogbGVmdDsgdmVydGl dFSkbRInsD546 IHRvcDsnPlBhdGllbnQgT zDvZUt4N5ObEvz1HJGetR kmCF8ifGBnIIphTi9rdZj ylLgyVU3tSGTv qpfhx370VeOrt0ssTIKqz OFpIHjtCQZ2F31yz6D7IY MwLNIkCJB3bQD6qA4qiQr nbjogbGVmdDsg zlLtfWdtQKrwLRhmM964H HRvcDsnPkJpcnRoIERhdG X7MY28DL44fDLpc2K7eHD 0L1JjRWHaulur bvxhpZS2UCZpOZRaxM58F l7wvPfxFs6mHYBvZQX8IU QttJAwF5DycV5gZsPjLLH zIRKfB5AasAHr LVnhM641ALluTwS2YPPmd hCtZ2JoZWUlqVraUrF8s6 B0Ad6DF3U9VE78PO39fZG rv9S0qCC2C6Zh QAJifpaqfmxgbQN7DEZyA KJklK19Yb3rdGfzKc2aUE JqNDY0BRWonTKpX3MszJ6 yOiAjMDAwMDAw B5UfgPVaVJoeU053REioE iG5QOBovwNeO7IzMYUklI gtOwD9k9L4Xl0ZZIr3OV4 9WT56uJMxo3D1 xIA7C3LoYTLojfaccggau NL5JIQzOGUuwC86Vw7wwH dnXv9wVEIsVNB3MNTmqIS bT0EkzO6iDsXi KUDbZETqU6NnkGIxFOdgW 402MXrbHiQ0LLHdpkWjV3 OqHOKkmUvmKyH0d0H7Bm2 VWFCkTP21PUW2 hWO1WG26XM48R0WyRdjml GFibGU+PHRhYmxlIHdpZH RoPScxMDAlJyBzdHlsZT0 dGd4eLZYfZDRs yGpwuTOdXdHcj5buMVJwX AohOE1uzWctO5WemFB1KW Vxn0w1Mo45B37wY3GxlOL +NOPxlQN4bIH8 pF2iAbYoXwA1SManW483S bTmuPGdClzew9ycg6ypxI r3UaZ9TSWigkYciOdwQED 1i3RlAt39S94z IHdpZHRoPSIxNSUiIHZhb Vdmmu2fuC8eMl6+PGNvbC S0rKT1uH3yRzXnAzG2GZr bZ647VvRrzAOv Rzeio8hya1mdwGm1PgSdZ QJwggJffPwcGSJ7m9GcJs 79Q7ZzaHcug8HrAjn5kb7 5jUOgq0M1vWR8 G4PoWEZnhksylWFqaFbrZ R1uCMXpduqyKOMaoE6kPH QiL4t2LwSgUkD4KSojQ1O rshN6WKMixYZe UXwmMRO5O22ls4G6GUDnC HVkEJJ7rTI2cD8bcUawax ogbGVmdDsgdmVydGljYWw pRAqbP341RYIg dDvkPITrpX3yUFOevSGqj NtlRC3eKZIobbfsPvMRZS 5ERVIsIEpFRkZSRVkgUzw vdGQ+PHRkIHN0 wXoyWGtsKNBjlL4nYFBjK 5z5FdWcToA6KEkiZ5OfFA ZlvzzcOg41hW4eUaJzMsR 6FTfsR6NaidG2 ZEMccDFoGJnuRZX0V04es 3X4GQNeFQJyXOF2mXP1yO 1hbGlnbjogbGVmdDsgdmV ydGljYWwtYWxp Q063BOJjyEgpOeUtOvDdR pF3JTa5T5SyKvk7ZIRiyO frFW1xvIGzLFybIw8wbTl tbQpjXK2iXAXj tnniSKQymU4yJNWmpNUjp FzsJD1yZTUcnnnow340Py AdYQZ3TVCpjXZaU8LguQ7 yOiAjMDAwMDAw A4PbxMEcNOmwK205CRtqW iU6AKGvvrTgU9ImQWBgrJ dwGxB6m0K0Sn79FuXGECV yczwvdGQ+PHRk WIO2pJnjERezQFZirZ1cP DAuQ7b1CyOcFvY3XBtqN8 VaFBLtjkxtCm56bM4uSnT zTqK1FGttD5Gg kjU3CUAytLAeUBheOWA0J 33cm0D3BOSyAHZiBWL7fS P9tE9uqAcipidlzCZjvUy gdmVydGljYWwt RXpkM552EHBoqZjmWy9ir JV7V7YnGdg9ZECuvEexWV 7zpYIvFAwrAp3qdCwdhBg tVB2pBGFzvphh LTIviL2qBDAiuVHpuTnoS R0iJFEntzdmw489IdNvCH O0BESwsNExI3TbvJ5uTcW qIPAaGZRxL9Fw fFJpNEqbG948OBuwKoB4K SCqqmQfH8ObSOZcqBdsWi V0e7A7Es3NipBxbWchdaD 4O7ReLejrkSX+ FZ18UOJfZG22tIGwxIRtt 2argEs6PuCmTILnSTB1iW txWWbil6RaOGOaW20qaNM ut3F5JWBwtZro tFKiEfQdyXC2hV9fIOfcw hgme1ctgogrJxbyc8dwia 31zL77Z95lEZxqACXtDUQ zMCUiIHZhbGln pa0htH1mRb2+ZCDjaGO9l TF2wC6eSyCeAjN2ZGhiY4 07AaNgqQFaAists9qdc9y muUr2LaWdYKRj dgJrpBleMEM3x4YwAb10R 29sIHdpZHRoPSIyMCUiIH OalJhgmj1cxW7hIp2+PC9 or4dsck10sA96 dHI+PQUeVGM9bMdzGUesR KJudH0cLLrpIeW0WRMxYv TnbL60zAQyLMopPv6bvXk sxBrkTQ2lZQRb zffsf023YoFtb9meJREab CBeEVfyEKW6M41wj2G2AW UsOEBiOOD0uGW2kF2loPp nbjogbGVmdDsg oeKxdKphLBxcVUvvJ822F DJbhAwdKuIaiDXcM0kvpk XGED6dWwmtoDL+PHRkIHN 0eWxlPSdwYWRk sN6jCRPuO4t9WsVaBoP5M ZxzC0VfupQ5VSGfiCDyZM ShvPGZeG8viripf1scuac gIzAwMDAwMDt0 NDo0JMUxsIuuLcFrXSP3E vL1KUZ3fGTxeZ9aiRodyj xdqJ2fVak+RklOOjwvdGQ +WMEuMCT3jRrc IXtzKURjlA3iIMMsC8z9K pBxFnB3RGtgW6BfulY8ZT OpiNNlRBMhbDDLpJ8sddk hi7bdamdjGzUk TDJuMOp5CEq7XIAiiLkpS mPvMUD8MuC0QXV7wTMpuK 4ifTttlomkvI6mTzk+TVJ OOjwvdGQ+PHRk JCM7lKoaQUrjWFKucC6rC KAhU7m7ZqPaPhM5YOkfB0 EjreV1XCYusAPiVOPsmLK EzW5rckjwo0fl eecuTrMuQDSaREr4EZq6D XEemKweIyCxUBX6YyQ3FB H5kMOlmQ7iiStaoaapxP0 wOyc+NTA3TGQ9 LQ05FZ49B7WhQqpsyCNwu +PHRhYmxlIHdpZHRoPS blMTPjQbTjaRbnLX6rLu0 yZGVyLWNvbGxh cHNl (more content not included)... Normal [facility] Operative Reporton Operative Report Patient: KOKO MEIER Age: 60 years Sex: Male : 1960 Associated Diagnoses: None Author: Christiano Linton Jr, DO Postoperative Information Date/ Time: 04/18/2021 09:15:00 Preoperative Diagnosis: Acute postoperative pain.. Postoperative Diagnosis: Acute postoperative pain. Procedure: Interscalene nerve block. Anesthesia Method: Local, Monitored anesthesia care. Performed by: Linton Jr DO, Christiano A. Medications: Midazolam 2 mg. Complications: None. Notes: [...] preparations for the proposed operation continued.. Normal [facility] Comment on above: Result Comment: Elec [...] list: All Problems Arthritis / SNOMED CT 4105568 / Confirmed Diabetes mellitus / SNOMED CT 542229530 / Confirmed High cholesterol / SNOMED CT 17773869 / Confirmed High blood pressure / SNOMED CT 1485100363 / Confirmed Physical Examination Vital Signs 04/18/2021 [...] br/min br/min (more content not included)... Normal [facility] Comment on above: Result Comment: Elec tronically Signed By: Royer Jonas DO, Christiano Pearson\.br\Date and Time Signed: 04/23/21 08:09 EDT Progress [...] list: All Problems Arthritis / SNOMED CT 3466131 / Confirmed Diabetes mellitus / SNOMED CT 830320378 / Confirmed High cholesterol / SNOMED CT 17041580 / Confirmed High blood pressure / SNOMED CT 9026445439 / Confirmed Histories Past Medical History: No active or resolved past medical history items have been selected or recorded. Family History: Hypertension Father Diabetes mellitus type 2 Mother Brother Metastatic cancer Father Procedure history: Spine orthopedic surgery, lumbar (6966446817). Spine orthopedic surgery, cervical (6054045289). Arthroscopic repair of rotator cuff (0749792758). Carpal tunnel release (640977300). Appendectomy (537707664). Partial resection of colon (90221920). Social History Social & Psychosocial Habits Alcohol [...] results Radiology results ECG interpretation Condition Plan [place] [employer] Anesthesiologists (ASA) physical status classification: Class III. Anesthetic Preoperative Plan Anesthesia: General. , Regional Interscalene Block. Anesthetic plan, risks, benefits, and alternatives discussed with the patient and/or family. Risks discussed: nausea, vomiting, headache, sore throat, dental injury, serious complications. Patient verbalized understanding. Communication: face to face with (patient 5 minutes, Pt educated on the importance of smoking cessation.). Normal [facility] Comment on above: Result Comment: Elec tronically Signed By: Royer Jonas DO, Christiano Pearson\.br\Date and Time Signed: 04/23/21 08:08 EDT Auto Diffon 04-19-2021 Basophils/100 WBC (Bld) 0.4 % Normal 0.0-2.[address] [facility] Comment on above: Order Comment: Order Added by Discern Expert. Performed By: #### 1 [id number] #### [facility] [address] [place] [address] Basophils/Leukocytes Auto (Bld) [Pure # fraction] 0.0 E9/L Normal 0.0-0.2 [facility] Comment on above: Order Comment: Order Added by Discern Expert. Performed By: #### 1 [id number] #### [facility] [address] [place] [address] Eosinophils/100 WBC (Bld) 0.1 % Normal 0.0-8.0 [facility] Comment on above: Order Comment: Order Added by Discern Expert. Performed By: #### 1 [id number] #### [facility] [address] [place] [address] Eosinophils/Leukocytes Auto (Bld) [Pure # fraction] 0.0 E9/L Normal 0.0-0.5 [facility] Comment on above: Order Comment: Order Added by Discern Expert. Performed By: #### 1 [id number] #### [facility] [address] [place] [address] Lymphocytes/100 WBC (Bld) 14.0 % Normal 14.0-50.0 [facility] Comment on above: Order Comment: Order Added by Discern Expert. Performed By: #### 1 [id number] #### [facility] [address] [place] [address] Lymphocytes/Leukocytes Auto (Bld) [Pure # fraction] 1.7 E9/L Normal 1.0-4.0 [facility] Comment on above: Order Comment: Order Added by Discern Expert. Performed By: #### 1 [id number] #### [facility] [address] [place] [address] Monocytes/100 WBC (Bld) 5.9 % Normal 4.0-14.0 [facility] Comment on above: Order Comment: Order Added by Discern Expert. Performed By: #### 1 [id number] #### [facility] [address] [place] [address] Monocytes/Leukocytes Auto (Bld) [Pure # fraction] 0.7 E9/L Normal 0.2-1.0 [facility] Comment on above: Order Comment: Order Added by Discern Expert. Performed By: #### 1 [id number] #### [facility] [address] [place] [address] Neutrophils/100 WBC (Bld) 79.6 % High 36.0-75.0 [facility] Comment on above: Order Comment: Order Added by Discern Expert. Performed By: #### 1 [id number] #### [facility] [address] [place] [address] Neutrophils/Leukocytes Auto (Bld) [Pure # fraction] 9.8 E9/L High 2.0-7.5 [facility] Comment on above: Order Comment: Order Added by Discern Expert. Performed By: #### 1 [id number] #### [facility] [address] [place] [address] BUNon 04-19-2021 Urea nitrogen [Mass/Vol] 19 mg/dL Normal 5-21 [facility] Comment on above: Performed By: #### 1 [id number] #### [facility] [address] [place] [address] CBC w/ Auto Diffon Erythrocyte distribution width (RBC) [Ratio] 13.1 % Normal 10.9-14.2 [facility] Comment on above: Performed By: #### 1 [id number] #### [facility] [address] [place] [address] Hematocrit (Bld) [Volume fraction] 42.1 % Normal 37.7-49.0 [facility] Comment on above: Performed By: #### 1 [id number] #### [facility] [address] [place] [address] Hemoglobin (Bld) [Mass/Vol] 14.0 g/dL Normal 13.5-17.5 [facility] Comment on above: Performed By: #### 1 [id number] #### [facility] [address] [place] [address] MCH (RBC) [Entitic mass] 31.5 pg Normal 27.0-34.0 [facility] Comment on above: Performed By: #### 1 [id number] #### [facility] [address] [place] [address] MCHC (RBC) [Mass/Vol] 33.3 g/dL Normal 31.4-36.0 [facility] Comment on above: Performed By: #### 1 [id number] #### [facility] [address] [place] [address] MCV (RBC) [Entitic vol] 94.4 fL Normal 80.0-100.[address] [facility] Comment on above: Performed By: #### 1 [id number] #### [facility] [address] [place] [address] Platelet mean volume (Bld) [Entitic vol] 9.5 fL Normal 6.4-10.8 [facility] Comment on above: Performed By: #### 1 1571781 #### [facility] [address] [place] [address] Platelets (Bld) [#/Vol] 177.0 E9/L Normal 150.0-500.0 [facility] Comment on above: Performed By: #### 1 [id number] #### [facility] [address] [place] [address] RBC (Bld) [#/Vol] 4.5 E12/L Normal 4.3-5.9 [facility] Comment on above: Performed By: #### 1 [id number] #### [facility] [address] [place] [address] WBC corrected for nucl RBC Auto (Bld) [#/Vol] 12.3 E9/L High 4.0-11.0 [facility] Comment on above: Performed By: #### 1 5680986 #### [facility] [address] [place] [address] Capillary Glucose POCon 03-28 Glucose [Mass/Vol] 226 mg/dL High 55-99 [facility] Comment on above: Result Comment: Joanna daly RN/ Performed By: #### 2 01753613 #### [facility] [address] [place] [address] Glucose [Mass/Vol] 271 mg/dL High 55-99 [facility] Comment on above: Result Comment: Joanna daly RN/ Performed By: #### 2 [id number] ####[facility] [address] [place] [address] Consent for Anesthesiaon Consent for Anesthesia [id number]#1 .00CD:127 Normal [facility] Creatinineon 04-19-2021 Creatinine [Mass/Vol] 0.7 mg/dL Normal 0.5-1.3 [facility] Comment on above: Performed By: #### 1 7374481 #### [facility] [address] [place] [address] Discharge Instructionson Discharge Instructions [id number]# 1.00CD:127 Normal [facility] Inpatient Clinical Summaryon 04-19-2021 Inpatient Clinical Summary [address] [address] Clinical Summary Person Information: Name: KOKO MEIER Age: 60 Years : 1960 Sex: Male PCP: JOSH MELVIN DO Marital Status: Phone: [phone] Race: White Ethnicity: Non- or Language: Amharic Visit Id: Visit Reason: OA RIGHT SHOULDER Speciality: Acuity: Enc Type: Inpatient Med Service: Surgery Arrival: 04/18/2021 08:03:48 Discharge: Dispo Type: Address: [address] [place] [id number] Provider Notes: Diagnosis: Arthritis of shoulder region, [...] Follow up: With: Address: When: [place] [address] My-Apps (1) 04/26/2021 2:45 PM Patient Education Information: Danyell Yang - Shoulder Replacement (Custom) [facility] Inpatient Patient Summaryon 04-19-2021 Inpatient Patient Summary [address] [address] Patient Discharge Instructions PERSON INFORMATION Name: KOKO MEIER Date of : 1960 Current Date: 04/19/2021 [...] Follow up: With: Address: When: [place] [address] My-Apps (1) 04/26/2021 2:45 PM In the event that this physician does not participate in your insurance network, please consult with your insurance company to find a nearby participating provider. Comment: RENEA Stein JEFFREY S, have received the attached patient education materials/instruction s and have verbalized understanding: Patient Signature Date Clinican/Nurse Signature Date HERE ARE THE MEDICATION CHANGES THAT OCCURRED DURING YOUR HOSPITAL STAY New Medications [facility], [address] [place] [id number], [phone] acetaminophen-oxycodo ne (Percocet 325 mg-5 mg Tab) [...] a day. (more content not included)... Normal [facility] Interdisciplinary Note - Mir e Manageron 04-19-2021 Interdisciplinary Note - [employer] Installer PT is awake and alert in bed, await rounds with Dr. Yang. . PCP verified and Insurance information reviewed and DME discussed. Contact information provided and white board updated. No family present at this time. Pt lives with and she will transport at [place]. Inpatient status reviewed, Medicare rights reviewed and form signed, original provided to pt. Declines any concerns or anticipated DC needs. Plan to DC home today 04/19. CRM received a phone call from hospital telemarketer supervisor Viri. States pt Ct called and waiting at pharmacy for meds to be filled and having a issue with filling them as prescribed. CRM contacted [facility], spoke with Yifan. States pt was prescribed Percocet and already on Morphine per pain management physician, and also already on clebrex, and prescribed Meloxicam. Will need clarification from . MADELINE contacted Dr. Yang office, VM left , situation explained and contact information provided. CRM again called office, spoke with Dr. Yang nurse, states she already received message from MADELINE and from pharmacist, waiting on Dr. Yang to come out of room and she will have him call to claify. Aware pt Ct is standing at pharmacy waiting for approval. CRM contacted pt Ct [phone] and updated. Viri, hospital telemarketer supervisor updated. Normal [facility] Comment on above: Result Comment: Elec tronically Signed By: Petty KOO, Afia\.br\Date and Time Signed: 04/19/21 15:36 EDT IntraOperative Documentson 0 04-19-2021 IntraOperative Documents [id number]#1 .00CD:127 Normal [facility] IntraOperative Documents [id number]#1 .00CD:127 Normal [facility] Lyteson 04-19-2021 Anion gap [Moles/Vol] 11 mmol/L Normal 6-16 [facility] Comment on above: Performed By: #### 2 [id number] #### [facility] [address] [place] [address] Chloride [Moles/Vol] 103 mmol/L Normal 101-111 [facility] Comment on above: Performed By: #### 2 [id number] #### [facility] [address] [place] [address] CO2 [Moles/Vol] 30 mmol/L Normal 21-31 [facility] Comment on above: Performed By: #### 2 [id number] #### [facility] [address] [place] [address] Potassium [Moles/Vol] 4.0 mmol/L Normal 3.5-5.3 [facility] Comment on above: Performed By: #### 2 [id number] #### [facility] [address] [place] [address] Sodium [Moles/Vol] 140 mmol/L Normal 135-145 [facility] Comment on above: Performed By: #### 2 [id number] #### [facility] [address] [place] [address] Message from Medicareon 06- Message from Medicare [id number]# 1.00CD:127 Normal [facility] Patient Education - Texton 0 04-19-2021 Patient Education - Text [place], [place] [facility] DISCHARGE INSTRUCTIONS: SHOULDER REPLACEMENT [...] persistent vomiting. Kwame Yang DO [facility] [address] [place] [address] Reviewed: [facility] Physician Orderon 04-19-2021 Physician Order [id number]#1 .00CD:127 [facility] Preoperative Documentson Preoperative Documents [id number]#1 .00CD:127 [facility] Preoperative Documents [id number] [id number]#1 .00CD:127 [facility] Progress Note-Physicianon Progress Note-Physician Patient: KOKO MEIER [...] Pressure 80 mmHg SpO2 92 % Normal [facility] Comment on above: Result Comment: Elec tronically Signed By: Kwame Yang DO\.br\Date and Time Signed: 04/19/21 12:55 EDT eGFRon 04-19-2021 GFR/1.73 sq M.predicted among blacks MDRD (S/P/Bld) [Vol rate/Area] mL/min/{1.73_m2} Normal >=59 [facility] Comment on above: Order Comment: Order added by Discern Expert. Result Comment: eGFR is race adjusted. AA=. Performed By: #### 2 [id number] #### [facility] [address] [place] [address] GFR/1.73 sq M.predicted among non-blacks MDRD (S/P/Bld) [Vol rate/Area] mL/min/{1.73_m2} Normal >=59 [facility] Comment on above: Order Comment: Order added by Discern Expert. Result Comment: [employer] Measurer aracely kidney disease could be indicated at eGFR's of less than 60 mL/min/1.73m2. Kidney failure is indicated at less than 15 mL/min/1.73m2. Performed By: #### 2 [id number] #### [facility] [address] [place] [address] ABO/Rhon 04-18-2021 ABO/Rh Positive Invalid Interpretation Code [facility] Comment on above: Performed By: #### 2 [id number], [id number], [id number], [id number] ####[facility] [address] [place] [address] ABO/Rh History Checkon 04-18 ABO/Rh History Check Verified Hx Blood Type Normal [facility] Comment on above: Performed By: #### 2 539347, [id number], [id number], [id number] ####[facility] [address] [place] [address] ABSC Tubeon 04-18-2021 ABSC Tube Interp Negative Normal [facility] Comment on above: Performed By: #### 2 707665, 04028418, 28810943, [id number] ####[facility] [address] [place] [address] Blood Bank ID#on 04-18-2021 BBID# [id number] Invalid Interpretation Code [facility] Comment on above: Performed By: #### 2 522783, [id number], [id number], [id number] ####[facility] [address] [place] [address] Blood Bank Slipon 04-18-2021 Blood Bank Slip [id number]#1 .00CD:127 Normal [facility] Capillary Glucose POCon 03-28 Glucose [Mass/Vol] 293 mg/dL High 55-99 [facility] Comment on above: Result Comment: Eva dav Meter Performed By: #### 2 [id number] #### [facility] [address] [place] [address] Glucose [Mass/Vol] 312 mg/dL High 55-99 [facility] Comment on above: Result Comment: Joanna daly RN/ Performed By: #### 2 [id number] #### [facility] [address] [place] [address] Glucose [Mass/Vol] 241 mg/dL High 55-99 [facility] Comment on above: Result Comment: Eva dav Meter Performed By: #### 2 [id number] #### [facility] [address] [place] [address] Consent for Procedure/Surger yon 04-18-2021 Consent for Procedure/Surgery [id number]#1 .00CD:127 Normal [facility] Consent for Treatmenton 03-28 Consent for Treatment [id number]#1 .00CD:127 Normal [facility] H&P Updateon 04-18-2021 H&P Update [id number]#1 .00CD:127 Normal [facility] Main OR PACU I Recordon 03-28 Main OR PACU I Record PACU Phase I Docum ent Type FT Summary Primary Physician: Kwame Yang DO Finalized Date/Time: 04/18/21 16:44:21 Pt. Name: KOKO MEIER Aura GlassB./Sex: 1960 Male Med Rec #: [id number] Physician: Kwame Yang DO Financial #: [id number] Pt. Type: O Room/Bed: [place] [address] Admit/Disch: 04/18/21 08:03:48 - Institution: Case Times [...] Signed By: Keira Knox RN 04/18/21 16:44 Normal [facility] Monitor Recordon 04-18-2021 Monitor Record [id number]# 1.00CD:127 Normal [facility] Operative Reporton Operative Report Patient: KOKO MEIER [...] 3. size 3 humeral insert 4. Revers Jolley size 9 stem with 39 (+2 right) [...] the gregg (more content not included)... Normal [facility] Comment on above: Result Comment: Elec tronically Signed By: Kwame Yang DO\.br\Date and Time Signed: 04/18/21 12:52 EDT Outpatient Surgery Discharge Instructionon 04-18-2021 Outpatient Surgery Discharge Instruction [place] [id number] Patient Discharge Instructions PERSON INFORMATION Name: KOKO [...] Date Follow up: With: Address: When: [address] [place] [address] My-Apps (1) 04/26/2021 2:45 PM Pharmacy Information: You may receive a survey from [employer] asking you to rate your care experience. Your feedback is important and will help us understand what we do well and how we can improve the quality of care we provide to you, your loved ones and our community. It?s an honor to serve you. Thank you for choosing [facility] HERE ARE THE MEDICATION CHANGES THAT [...] times a day. PATIENT EDUCATION INFORMATION Instructions: [place], [place] [facility] DISCHARGE INSTRUCTIONS: SHOULDER REPLACEMENT [...] of persistent vomiting. Kwame Yang, [facility] [address] [place] [address] Reviewed: Normal [facility] UA With Cult Reflexon 2020 Bilirubin Ql (U) Negative Normal Negative [facility] Comment on above: Performed By: #### 1 [id number] #### [facility] [address] [place] [address] Clarity (U) CLEAR Normal Clear [facility] Comment on above: Performed By: #### 1 [id number] #### [facility] [address] [place] [address] Color (U) YELLOW Normal Yellow [facility] Comment on above: Performed By: #### 1 [id number] #### [facility] [address] [place] [address] Epithelial cells.squamous LM.HPF (Urine sed) [#/Area] 0-2 Normal 0-2 [facility] Comment on above: Performed By: #### 1 1952998 #### [facility] [address] [place] [address] Glucose Test strip (U) [Mass/Vol] 2+ Abnormal Negative [facility] Comment on above: Performed By: #### 1 [id number] #### [facility] [address] [place] [address] Hemoglobin Ql (U) Negative Normal Negative [facility] Comment on above: Performed By: #### 1 [id number] #### [facility] [address] [place] [address] Ketones (U) [Mass/Vol] Negative Normal Negative [facility] Comment on above: Performed By: #### 1 [id number] #### [facility] [address] [place] [address] Dike.plasma/Dike. RBC (Bld) [Mass ratio] 0-3 Normal 0-3 [facility] Comment on above: Performed By: #### 1 8517073 #### [facility] [address] [place] [address] Mucus Ql (Urine sed) TRACE Normal [facility] Comment on above: Performed By: #### 1 [id number] #### [facility] [address] [place] [address] Nitrite Ql (U) Negative Normal Negative [facility] Comment on above: Performed By: #### 1 [id number] #### [facility] [address] [place] [address] pH (U) 6.0 [pH] Invalid Interpretation Code 5.0-9.0 [facility] Comment on above: Performed By: #### 1 0684858 #### [facility] [address] [place] [address] Protein (U) [Mass/Vol] TRACE Abnormal Negative [facility] Comment on above: Performed By: #### 1 [id number] #### [facility] [address] [place] [address] Specific gravity (U) [Rel density] 1.020 Invalid Interpretation Code 1.005-1.030 [facility] Comment on above: Performed By: #### 1 2016553 #### [facility] [address] [place] [address] Type of Urine collection method Cohn Normal [facility] Comment on above: Performed By: #### 1 [id number] #### [facility] [address] [place] [address] Urobilinogen Qn (U) 0.2 {Rolando'U}/dL Normal 0.0-1.0 [facility] Comment on above: Performed By: #### 1 4109840 #### [facility] [address] [place] [address] WBC Auto Ql (U) Negative Normal Negative [facility] Comment on above: Performed By: #### 1 0762423 #### [facility] [address] [place] [address] WBC LM.HPF (Urine sed) [#/Area] 0-5 Normal 0-5 [facility] Comment on above: Performed By: #### 1 8530915 #### [facility] [address] [place] [address] XR Shoulder Complete Righton 04-18-2021 XR Shoulder [...] Zapien MD Transcribed by: BECKY Technologist: CHARLY, Normal [facility] Outside Recordson 04-17-2021 Outside Records [id number]# 1.00CD:127 Normal [facility] Outside Recordson 04-09-2021 Outside Records [id number]# 1.00CD:[address] [facility] [address] Upper Extremity w/o Contr ast [...] Warren MD Transcribed by: BECKY Technologist: CONSUELO [facility] Coding Summary.on 04-04-2021 Coding Summary. CD:[id number]:[id number] G h0bWw+PGhlYWQ+CV3DAEN hY11daRVqeL6NH1aTCG8N WOAKDTHUNP6VJA6uiFY2W VsqS4ZtvzUw JgqccFEbXU60RKl1SMP1x KcrELanuV6epDIlL2z3Jl WkRO17rW06YQfiSYVeQeI 3LjZpbjsgbWFy X3yvUcVlcBFeVvt+PHRhY mxlIHdpZHRoPScxMDAlJy PorBdfAZ7iTw0eGBImTON vbGxhcHNlOiBj c0byVWJrUHmvXC8jfJtoU 1KvlOS9YDIis9b3Qz43gY I+VMPfLOZ7fEubFIiqh97 4PwEvw2skYSA4 oKItGKcdPNK1Q09fj3S4G WVsWQYiVXB7fWX5nQ0jyT gtvgacO8AczJTaWiT6ZRG 8vNXgrW7vkLnm nareoM8lBhi+T88TWU5PW JVAIK5WZes0D0AmQrvojF I+BR01FWTzPB16qCPayIG xe1ercGk2WvIf ARWuBIS1dYurRAviw1ErJ TJaU34hfFWat1M0EMSmyZ ajhGCuWfPrjIQ9cN2jKFp beqcqy6hvvpzk Kqyvm7kebx64rA16L32oA DlmCIJjOMH1TQQkVACbqA yhxh4azF2zLx4+VKfgf6c bz1hsyDz7CsVt BXWomgTepPqgLGY1g1IrZ w75F4NupXmfr0NgYud2ga 53hDCgz3C2sAG0ZYnaESP glV7mWWrjGfM9 GNObVjKkqF58oFIzTSznV c9deOtkdVifRO5aEUFsyr mcDHYcaF3hPLFpiMHpiAo uVM1yTHGuevac p314EgDtOXD9TKTkbOTnY 8XryD9hEuAaBCMqDFIfL3 LuqCOkSTmnF611BGxdAmP 5LCOvbcZaU5Ay BLSsyPfqBiH8v6M2Ni9We 5YardioUZI4DGacMTE5Te I1BrZqToN4B1KmOye8TQW ufYszAZ4oU3Ja KJNnojcbhlpcuDJ0NTNjZ VMdmA92gHPkKFluUo5al1 M6o154UREhWRYbiK56Wu5 udDogMTBwdCBU cN0lrxvoa4bwhfqzFhLbI KIsXAj6HVo2LJGdcLemMb DbXNF8SfM7VIO0aAAzvF8 ddFkcpmwpfE1l Oyc+D77myI4uQCV2FWV9t sgqPUHqhdHnFZ01MA67N4 RyPjwvdGFibGU+PGRpdiB jpEcsUO2nHzEb c2kmu1XdILriN7NeFMViA AtuDik3WUSpKAP7bBK5oR 1aKISjPDxyp8N7hGJ1R0U zkpXwme4lp2be XWCqUPnkC57ujJIvy0D0U GKjzNE2WRKmfIyiFgZleN 93Oyc+YHLuaAzil9QkEcp bj7zem9fowNm8 AvDlXVIxwlEozXjnYWB4h 1KdXq16J43yUJafAGGlMY EvSQQhVZEhaXkxsc4zdO7 wIi8+PGNvbCB3 sYF0rY5zQZExErE8BHfnH 654IsUknTXcAilri7krr6 qhiEl9EnKgUVWbzzMjwPu xOYR7a1TxEi66 H38xRCmsXNCaIETgZOXeA HPavSpnwa6htN7hJs2+PC 4gx7wwnp14bP83pCG+PHR rNVZ6cKbcNAjo FLJspN0jVXyxDjB0ESBsA lYwtT88iCZaJTkqCo9siB uroBkiSA6zSRWjqvaas07 8KsAkj8asBDSb hZGxRFkeXNI3V62ph4E2V ZAyQZOdGVX6qLL4aK6hyQ lnbjogbGVmdDsgdmVydGl oQMtpNIyyP833 IHRvcDsnPlBhdGllbnQgT yQePQh2W6VaXdy0WYPptD baUN6kuPIfFFalYu9fbOq ugUuxTE6tWFDo umbca301GqLng9agWRJzn NKcQGarODJ0G26xu1C0DA QhFOFzAUB7fVQ3nE7mcVd nbjogbGVmdDsg ibNhrLtpLWxtBKvjJ293H HRvcDsnPkJpcnRoIERhdG X9HF05KY12kVSfr1Y5vDO 4S4XaTEEsqrer rmupzOZ7FYOvUFArjL67U o8jrQktTp3cUKSzCAZ0UM DkqVQnZ9VdcK1kElLgOHK sAHQrB1YreYXa HQnvP791BMhiAjE1GTRxs vPsM5VfWUQgoSbjRkW3r2 B4Vp3BD4H9VC88QA63zAP qs2G3rAK8W3Au VWFllacnfriqsAJ4JZOoD SWgeJ68Cz4uwEitWe4hCO EdTKM2BUDsdHZcK3QefR1 yOiAjMDAwMDAw E4SytNXaOVcbE747JLmbO qA7LFTdtkAjH2HxLFRmcW rwCaR4c3U4Gb2LPEb3OO0 4AG48dPAdb9X5 vEW4M5DaHUSudvbdfbrsc TZ3TDGwLWPhdD99Cc9bzS mlDa1mWTGwXLM9PCEalIT zS5PvxB5eMcMp AYGsGFIkI7MtjGNbMVlvZ 979RCmqMvL7TXAhixAxK9 TzVQJkjRjbCiT3q4P0Xy6 IUGFrQG94MFN8 mDI3BE03YQ82Z2TuAzkol GFibGU+PHRhYmxlIHdpZH RoPScxMDAlJyBzdHlsZT0 nOo7uYWUiLXDg zJqeiFMeArLwr8jmIECjO ExoPU7tsZewQ1AbjQR4BX Vdo9a4Jp27Z44dA0MoxKJ +CAGsoER9bVE9 oV3dJaAaTwC4ULzpZ226X mDcfQAiTnwhc4oyr9fsoJ h4WkO4NLFavmUniYmuNSZ 7p1KnWq60I56l IHdpZHRoPSIxNSUiIHZhb Nzepi6ufB4fJe3+PGNvbC J9kTC6vB4kYzJoHjH2THr pO129QaRdeOCf Hnxgv2cba2dksBn8HnTeG VMcojMztMgpUTA9o9NmMj 36F5OcmFpmc4HlCue2jw1 2wUWvb5X5cPS0 X0AtZRTnqezhmIOrsVuvK P7yRUWvslcnGJWhfB9dEM GsS3w9DfMrQhW0LDduH2F sexE6ZGUpwWHq WMhtYZE5C93xz1W6DVCjY VGxDOA6xOC8kI8hjKvmhd ogbGVmdDsgdmVydGljYWw aVLwoX311UKWe aLsjYDCkpE3mKWKrlCHpf AmlSP7uXRItyvnfQkERPH 5ERVIsIEpFRkZSRVkgUzw vdGQ+PHRkIHN0 mSpqOInmMRLlcF1iPQHrM 9e4MaMeQvP1QSroF0UsFG RgjikyDs30gP7gXyLuRjI 6KHppB3OtkbE9 IZInaCRuKYfyOJZ3U92gn 6J0FXRfQVPsSRH4zUH0sL 1hbGlnbjogbGVmdDsgdmV ydGljYWwtYWxp P662CCKciYzuBhEgEvXbN dR5JGs5N9OoKth2LOAonR huPN1ulNFhCQnxUm5fdOu ymAywWJ1lTIYe sasbALOemW0rNMXlgUFnz LtoLV7oURAkwgcwj432Ir PpTDL9CAEeyDMdB0TheO3 yOiAjMDAwMDAw H8KhxWYjWXnxY264RAeyE mV1DPSwufPhQ1AlTFTfcU fuCxI4w8M6No39BuWERSI yczwvdGQ+PHRk YEG8lQirMNmhSJLplK1fT GAxN3m2NjMrOgP3ZVjvZ0 HiKQWwyrusGo85rE4iUwD oPwK5VPulK0Yi mxB8HQFgpJJhDEenDMK5V 32jw7O2YUCpSGDbYSR4bI T6hY9aeBdehdvauMWrvWi gdmVydGljYWwt JDfiK514CZQwvSxiXb5jl FO9D1YmIdv0IZCinLtuQV 3jmLNjJBcvBn0mxCpkmHf pHB5qEOWfznsf MAGqgT3zVOLdjCYuqDzhZ F0dMRIdsexzm067GmIuNS X3HUMppWReY4QfjU0rKwF mSYItEZCeH7Iy yAMoEZevY129ZUilKpI2K ICbghJhS7KvEZFezPglDr H9o0N3Dk4LmPSoNLUjPX9 9AZ49HP38U5Ik PjwvdGFibGU+PHRhYmxlI HdpZHRoPScxMDAlJyBzdH xaWA4xCv1nCAEfZDNfoNo vrFAnLmAwr7pl RLCgHZloHQ2suOktG6Yqo CD5RCJcd0o1Zp03Y76gM3 JvdXA+WFQyjVG0dVN6pK7 hHqQuEsW5FAao B622JrLrtOBbIazms7zus 7zawWc7BoAfGWDbsnAbgX hbWIP1z4BnUn18N40zMCn pZHRoPSIyMCUi WSSvkUxfqe2hnO1tXt9+P VXzdYP7vPP4rJ8xVhTfDw R2ZSgpG539VpTckLThRmv zY92pX1RpbDK+ KMCnYer8RUObvSnnUA2ht NUwYLmfLn3eHKL5BwAgRx NoCCniO8QaBDNlsifskgl ojMF3SWWvLGVp cI00Sy0lnQhvQe5tIAPmH KO1IESmgIByA5XptN4aXp XmFXQoTTYwO6NqpNWdSQi fG656PFmoLzL1 BCYlqvGdB3MoBBIjpOamN dS3c0D0Tx3BsCprbGEkZG 2iVjTuSPk9X5YaBts6WWJ meAtoDD9aeTId OAdiDt9rvVuqgUyvEH3hT DKwbmxag353RkZiy0iaPO KroIXbCOatTIT4X68sw0Z 4FFMzHHIeQRJ9 eZF8oX8aqRyflxcjnDZfn DsgdmVydGljYWwtYWxpZ2 12FJPjzWguHzUHJkw0V5H iUsm3MUVklZxr PC4lkMOwLZqqEv4otMupc XxzWV2nKYYxurqqa227Yk Oqm8zeIYCihUQuSUmcVQE 6A74yf3M1KAZw YQSmIFF4xKN0aF0zsHjva jogbGVmdDsgdmVydGljYW spEEcfY045VOWwlQjtJi4 BLhz3S2XjIia7 UDQhbJhwAQ6ikDYvPMxnD k9vlKcdkXyjXP6vPUKkzd otv952ClDbf2btXANrtKF yQLshOOL2Q18c v0N7MZTaSEQzRWC3vDI7r C1wsKghyczoxWOunWerbr PihQrsNPceDTueO262HVI vcDsnPlBheWVy OjwvdGQ+XO70im71W8QmN jmyVgt4JYXaOSX5zAJ5iQ 8eOIVwBDmvh6U0mLR1C5Y cfuFrdn6rl3kk YXBz (more content not included)... Normal [facility] Immunization Recordson 04-04 Immunization Records [id number]#1. 00CD:127 Normal [facility] ABO/Rh Retypeon 04-03-2021 ABO/Rh Retype Interp Positive Invalid Interpretation Code [facility] Comment on above: Performed By: #### 1 [id number] ####[facility] [address] [place] [address] BUNon 04-03-2021 Urea nitrogen [Mass/Vol] 22 mg/dL High 5-21 [facility] Comment on above: Performed By: #### 1 [id number] #### [facility] [address] [place] [address] CBC w/Indiceson 04-03-2021 Erythrocyte distribution width (RBC) [Ratio] 12.7 % Normal 10.9-14.2 [facility] Comment on above: Performed By: #### 1 [id number] #### [facility] [address] [place] [address] Hematocrit (Bld) [Volume fraction] 47.4 % Normal 37.7-49.0 [facility] Comment on above: Performed By: #### 1 [id number] #### [facility] [address] [place] [address] Hemoglobin (Bld) [Mass/Vol] 16.1 g/dL Normal 13.5-17.5 [facility] Comment on above: Performed By: #### 1 [id number] #### [facility] [address] [place] [address] MCH (RBC) [Entitic mass] 31.8 pg Normal 27.0-34.0 [facility] Comment on above: Performed By: #### 1 [id number] #### [facility] [address] [place] [address] MCHC (RBC) [Mass/Vol] 34.1 g/dL Normal 31.4-36.0 [facility] Comment on above: Performed By: #### 1 [id number] #### [facility] [address] [place] [address] MCV (RBC) [Entitic vol] 93.2 fL Normal 80.0-100.0 [facility] Comment on above: Performed By: #### 1 [id number] #### [facility] [address] [place] [address] Platelet mean volume (Bld) [Entitic vol] 9.3 fL Normal 6.4-10.8 [facility] Comment on above: Performed By: #### 1 [id number] #### [facility] [address] [place] [address] Platelets (Bld) [#/Vol] 168.0 E9/L Normal 150.0-500.0 [facility] Comment on above: Performed By: #### 1 [id number] #### [facility] [address] [place] [address] RBC (Bld) [#/Vol] 5.1 E12/L Normal 4.3-5.9 [facility] Comment on above: Performed By: #### 1 [id number] #### [facility] [address] [place] [address] WBC corrected for nucl RBC Auto (Bld) [#/Vol] 8.0 E9/L Normal 4.0-11.0 [facility] Comment on above: Performed By: #### 1 [id number] #### [facility] [address] [place] [address] Consent for Treatmenton 06 Consent for Treatment [id number]#1 .00CD:127 Normal [facility] Creatinineon 04-03-2021 Creatinine [Mass/Vol] 0.7 mg/dL Normal 0.5-1.3 [facility] Comment on above: Performed By: #### 1 [id number] #### [facility] [address] [place] [address] Glucoseon 04-03-2021 Glucose [Mass/Vol] 249 mg/dL High 55-199 [facility] Comment on above: Performed By: #### 1 [id number] #### [facility] [address] [place] [address] [id number] 04-03-2021 HbA1c (Bld) [Mass fraction] 7.9 % High <=5.9 [facility] Comment on above: Performed By: #### 7 [id number] #### [facility] [address] [place] [address] Lyteson 04-03-2021 Anion gap [Moles/Vol] 15 mmol/L Normal 6-16 [facility] Comment on above: Performed By: #### 1 [id number] #### [facility] [address] [place] [address] Chloride [Moles/Vol] 94 mmol/L Low 101-111 [facility] Comment on above: Performed By: #### 1 [id number] #### [facility] [address] [place] [address] CO2 [Moles/Vol] 27 mmol/L Normal 21-31 [facility] Comment on above: Performed By: #### 1 [id number] #### [facility] [address] [place] [address] Potassium [Moles/Vol] 4.2 mmol/L Normal 3.5-5.3 [facility] Comment on above: Performed By: #### 1 [id number] #### [facility] [address] [place] [address] Sodium [Moles/Vol] 132 mmol/L Low 135-145 [facility] Comment on above: Performed By: #### 1 [id number] #### [facility] [address] [place] [address] XR Chest 2 Viewson XR Chest 2 [...] Transcribed by: BECKY Technologist: JOSE ELIAS Normal [facility] eGFRon 04-03-2021 GFR/1.73 sq M.predicted among blacks MDRD (S/P/Bld) [Vol rate/Area] mL/min/{1.73_m2} Normal >=59 [facility] Comment on above: Order Comment: Order added by Discern Expert. Result Comment: eGFR is race adjusted. AA=. Performed By: #### 1 [id number] #### [facility] [address] [place] [address] GFR/1.73 sq M.predicted among non-blacks MDRD (S/P/Bld) [Vol rate/Area] mL/min/{1.73_m2} Normal >=59 [facility] Comment on above: Order Comment: Order added by Discern Expert. Result Comment: [employer] Measurer aracely kidney disease could be indicated at eGFR's of less than 60 mL/min/1.73m2. Kidney failure is indicated at less than 15 mL/min/1.73m2. Performed By: #### 1 [id number] #### [facility] [address] [place] [address] Physician Orderon 03-01-2021 Physician Order [id number]# 1.00CD:127 Normal [facility] Pre-Certification Formon Pre-Certification Form [id number]# 1.00CD:127 Normal [facility] Physician Orderon 02-28-2021 Physician Order [id number]# 1.00CD:127 Normal [facility] Coding Summary.on 12-21-2020 Coding Summary. CODING DATE: 12/21/2020 FINAL [facility] STATUS: Home (Routine DC) PAYOR: Medicare [...] CphT Date Saved: 12/21/2020 01:14 pm Normal [facility] CT Upper Extremity w/ Contra st Righton [...] Report Acromioclavicular Joint: Severe degenerative changes with [id number] contact, extensive subchondral cystic changes involving the [...] Contrast: None Contrast amount in ml's: 0 [facility] Consent for Treatmenton 11-28 Consent for Treatment [id number] 102 [id number]#1 .00CD:127 Normal [facility] Creatinineon 12-20-2020 Creatinine [Mass/Vol] 0.7 mg/dL Normal 0.5-1.3 [facility] Comment on above: Performed By: #### 2 [id number], [id number] #### [facility] [address] [place] [address] Physician Orderon 12-20-2020 Physician Order [id number]#1 .00CD:127 [facility] RAD - Consent to Procedureon 12-20-2020 RAD - Consent to Procedure [id number]#1 .00CD:127 Normal [facility] XR Inj Shoulder Arthrogram R ighton 12-20-2020 [...] shoulder joint. Patient tolerated the procedure well. [employer] Set Up Operator image shows minimal calcification adjacent to [...] Radiation Dose: Ka,r in mGy = 21 [facility] eGFRon 12-20-2020 GFR/1.73 sq M.predicted among blacks MDRD (S/P/Bld) [Vol rate/Area] mL/min/{1.73_m2} Normal >=59 [facility] Comment on above: Order Comment: Order added by Discern Expert. Result Comment: eGFR is race adjusted. AA=. Performed By: #### 2 [id number], [id number] #### [facility] [address] [place] [address] GFR/1.73 sq M.predicted among non-blacks MDRD (S/P/Bld) [Vol rate/Area] mL/min/{1.73_m2} Normal >=59 [facility] Comment on above: Order Comment: Order added by Discern Expert. Result Comment: [employer] Measurer aracely kidney disease could be indicated at eGFR's of less than 60 mL/min/1.73m2. Kidney failure is indicated at less than 15 mL/min/1.73m2. Performed By: #### 2 [id number], [id number] #### [facility] [address] [place] [address] Physician Orderon 12-08-2020 Physician Order [id number]#1 .00CD:127 [facility] Pre-Certification Formon Pre-Certification Form [id number]#1 .00CD:127 Normal [facility] Consent for Treatmenton Consent for Treatment [id number] 102 [id number]#1 .00CD:127 Normal [facility] RAD - MISCon 12-05-2020 RAD - MISC [id number]# 1.00CD:127 Normal [facility] RAD - MRI Screening Formon 0 12-05-2020 RAD - MRI Screening Form [id number]# 1.00CD:127 Normal [facility] Physician Orderon 11-29-2020 Physician Order [id number]#1 .00CD:127 Normal [facility] Pre-Certification Formon Pre-Certification Form [id number]#1 .00CD:127 [facility] Vital Signs Date Time Vital Sign Value Performing Clinician Facility 11-11-2023 10:37-0500 Body height 170.2 cm Maryann Rubalcava MD Work Phone: [facility] 11-11-2023 10:37-0500 Body mass index (BMI) [Ratio] 36.02 kg/m2 Maryann Rubalcava MD Work Phone: [facility] 11-11-2023 10:37-0500 Body temperature 98.6 [degF] Maryann Rubalcava MD Work Phone: [facility] 11-11-2023 10:37-0500 Body weight 104.33 kg Maryann Rubalcava MD Work Phone: [facility] 11-11-2023 10:37-0500 Diastolic blood pressure 62 mm[Hg] Maryann Rubalcava MD Work Phone: [facility] 11-11-2023 10:37-0500 Heart rate 98 /min Maryann Rubalcava MD Work Phone: [facility] 11-11-2023 10:37-0500 Systolic blood pressure 136 mm[Hg] Maryann Rubalcava MD Work Phone: [facility] 11-03-2023 16:35-0500 Diastolic blood pressure 59 mm[Hg] DO Josh Bunting Work Phone: [facility] 11-03-2023 16:35-0500 Heart rate 91 /min DO Josh Bunting Work Phone: [facility] 11-03-2023 16:35-0500 Respiratory rate 16 /min DO Josh Bunting Work Phone: [facility] 11-03-2023 16:35-0500 SaO2% (BldA) [Mass fraction] 92 % DO Josh Bunting Work Phone: [facility] 11-03-2023 16:35-0500 Systolic blood pressure 117 mm[Hg] DO Josh Bunting Work Phone: [phone] [place] [address] 11-03-2023 15:41-0500 Body temperature 97.4 [degF] DO Josh Bunting Work Phone: [phone] [place] [address] 11-03-2023 15:11-0500 Inhaled oxygen flow rate 3 L/min DO Josh Bunting Work Phone: [facility] 11-03-2023 11:46-0500 Body height 170.18 cm DO Josh Bunting Work Phone: [facility] 11-03-2023 11:46-0500 Body mass index (BMI) [Ratio] 37.6 kg/m2 DO Josh Bunting Work Phone: [facility] 11-03-2023 11:46-0500 Body weight 109 kg DO Josh Bunting Work Phone: [facility] 10-14-2023 09:40-0500 Body height 170.18 cm Karime Nguyen Other [employer] Other 10-14-2023 09:40-0500 Body mass index (BMI) [Ratio] 37.9 kg/m2 Karime Nguyen Other [employer] Other 10-14-2023 09:40-0500 Body weight 109.77 kg Karime Nguyen Other [employer] Other 10-02-2023 09:10-0500 Body height 170.18 cm DO Josh Bunting Work Phone: [facility] 10-02-2023 09:10-0500 Body mass index (BMI) [Ratio] 37.3 kg/m2 DO Josh Bunting Work Phone: [facility] 10-02-2023 09:10-0500 Body weight 108 kg DO Josh Bunting Work Phone: [facility] 10-02-2023 08:53-0500 Body temperature 98.5 [degF] DO Josh Bunting Work Phone: [facility] 10-02-2023 08:53-0500 Diastolic blood pressure 82 mm[Hg] DO Josh Bunting Work Phone: [facility] 10-02-2023 08:53-0500 Heart rate 92 /min DO Josh Bunting Work Phone: [facility] 10-02-2023 08:53-0500 Respiratory rate 18 /min DO Josh Bunting Work Phone: [facility] 10-02-2023 08:53-0500 SaO2% (BldA) [Mass fraction] 95 % DO Josh Bunting Work Phone: [facility] 10-02-2023 08:53-0500 Systolic blood pressure 169 mm[Hg] DO Josh Bunting Work Phone: [facility] 09-16-2023 09:20-0500 Body height 170.18 cm Karime Nguyen Other [employer] Other 09-16-2023 09:20-0500 Body mass index (BMI) [Ratio] 37.59 kg/m2 Karime Nguyen Other [employer] Other 09-16-2023 09:20-0500 Body weight 108.86 kg Karime Nguyen Other [employer] Other 07-29-2023 16:43-0400 Body height 167.64 cm DO Josh Bunting Work Phone: [facility] 07-29-2023 16:43-0400 Body temperature 98 [degF] DO Josh Bunting Work Phone: [facility] 07-29-2023 16:43-0400 Body weight 104.32 kg DO Josh Bunting Work Phone: [facility] 07-29-2023 16:43-0400 Diastolic blood pressure 74 mm[Hg] DO Josh Bunting Work Phone: [facility] 07-29-2023 16:43-0400 Heart rate 99 /min DO Josh Bunting Work Phone: [facility] 07-29-2023 16:43-0400 Respiratory rate 24 /min DO Josh Bunting Work Phone: [facility] 07-29-2023 16:43-0400 SaO2% (BldA) [Mass fraction] 94 % DO Josh Bunting Work Phone: [facility] 07-29-2023 16:43-0400 Systolic blood pressure 141 mm[Hg] DO Josh Bunting Work Phone: [facility] 03-26-2023 11:26-0400 Heart rate 88 /min Donny Peralta APRN.CORE RESCUER Work Phone: [facility] 03-26-2023 11:26-0400 Respiratory rate 17 /min Donny Peralta NUT TIGHTENER.CORE RESCUER Work Phone: [facility] 03-26-2023 11:26-0400 SaO2% (BldA) [Mass fraction] 98 % Donny Peralta APRN.CORE RESCUER Work Phone: [facility] 04-16-2022 09:30-0400 Body height 170.18 cm Ulyssessam Mccarthytommie Other [facility] [employer] Other 04-16-2022 09:30-0400 Body temperature 97.6 [degF] Ulyssesal Chaban Other [employer] Other 04-16-2022 09:30-0400 Diastolic blood pressure 78 mm[Hg] Ulyssesal Chaban Other [employer] Other 04-16-2022 09:30-0400 Respiratory rate 20 /min Mariel Chaban Other [employer] Other 04-16-2022 09:30-0400 SaO2% (BldA) [Mass fraction] Ulyssesal Chaban Other [employer] Other 04-16-2022 09:30-0400 Systolic blood pressure 154 mm[Hg] Ulyssesal Chaban Other [employer] Other 01-08-2022 14:30-0400 Body height 170.18 cm Mariel Mccarthyban Other [employer] Other 01-08-2022 14:30-0400 Body mass index (BMI) [Ratio] 37.27 kg/m2 Mariel Mccarthyban Other [employer] Other 01-08-2022 14:30-0400 Body temperature 97.4 [degF] Mariel Chaban Other [employer] Other 01-08-2022 14:30-0400 Body weight 107.96 kg Mariel Chaban Other [employer] Other 01-08-2022 14:30-0400 Diastolic blood pressure 72 mm[Hg] Ulyssesal Chaban Other [employer] Other 01-08-2022 14:30-0400 Respiratory rate 20 /min Mariel Mccarthyban Other [employer] Other 01-08-2022 14:30-0400 SaO2% (BldA) [Mass fraction] 95 % Mariel Mccarthyban Other [employer] Other 01-08-2022 14:30-0400 Systolic blood pressure 130 mm[Hg] Mariel Mccarthyban Other [employer] Other 09-06-2021 10:00-0500 Body height 170.18 cm Mariel Mccarthyban Other [employer] Other 09-06-2021 10:00-0500 Body mass index (BMI) [Ratio] 37.59 kg/m2 Mariel Mccarthyban Other [employer] Other 09-06-2021 10:00-0500 Body temperature 96.8 [degF] Mariel Mccarthyban Other [employer] Other 09-06-2021 10:00-0500 Body weight 108.86 kg Mariel Mccarthyban Other [employer] Other 09-06-2021 10:00-0500 Diastolic blood pressure 68 mm[Hg] Mariel Chaban Other [employer] Other 09-06-2021 10:00-0500 Respiratory rate 20 /min Mariel Mccarthyban Other [employer] Other 09-06-2021 10:00-0500 SaO2% (BldA) [Mass fraction] 95 % Mariel Mccarthyban Other [employer] Other 09-06-2021 10:00-0500 Systolic blood pressure 136 mm[Hg] Mariel Mccarthyban Other [employer] Other 07-23-2021 10:30-0400 Body height 170.18 cm Mariel Mccarthyban Other [employer] Other 07-23-2021 10:30-0400 Body mass index (BMI) [Ratio] 38.21 kg/m2 Mariel Mccarthytommie Other [employer] Other 07-23-2021 10:30-0400 Body temperature 96.1 [degF] Mariel Mcgraw Other [employer] Other 07-23-2021 10:30-0400 Body weight 110.68 kg Mariel Mcgraw Other [employer] Other 07-23-2021 10:30-0400 Diastolic blood pressure 78 mm[Hg] Mariel Mccarthyban Other [employer] Other 07-23-2021 10:30-0400 Respiratory rate 20 /min Mariel Mccarthytommie Other [employer] Other 07-23-2021 10:30-0400 SaO2% (BldA) [Mass fraction] 95 % Mariel Mccarthyban Other [employer] Other 07-23-2021 10:30-0400 Systolic blood pressure 150 mm[Hg] Mariel Mccarthyban Other [employer] Other Encounters Encounter Date Encounter Type Care Provider Facility Start: 11-25-2023 End: 11-25-2023 ambulatory Josh Bunting Facility:[facility] Start: 11-25-2023 End: 11-25-2023 ambulatory DO Josh Bunting Work Phone: [facility] Work Phone: Start: 11-25-2023 End: 11-25-2023 Patient encounter procedure DO Josh Bunting Work Phone: [facility]-CT [facility] [place] Work Phone: Start: 11-24-2023 End: 11-24-2023 ambulatory Josh Bunting Facility:[facility] Start: 11-24-2023 End: 11-24-2023 ambulatory DO Josh Bunting Work Phone: [facility] Work Phone: Start: 11-24-2023 End: 11-24-2023 Patient encounter procedure DO Josh Bunting Work Phone: [facility] [place] Work Phone: Start: 11-17-2023 End: 11-18-2023 ambulatory Savanna Mcclain MD Facility:[facility] Start: 11-11-2023 End: 11-12-2023 ambulatory [facility] Start: 11-11-2023 End: 11-11-2023 Office consultation new/estab patient 80 min Maryann Rubalcava MD Work Phone: [facility] Comment on above: Cervical myelopathy (CMS/HCC) (Primary Dx); Sagittal plane imbalance; 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; Lumbar stenosis with neurogenic claudication Start: 11-10-2023 End: 11-10-2023 ambulatory YOGESH BECKER V Not Available Start: 11-03-2023 End: 11-03-2023 ambulatory Josh Bunting Facility:[facility] Start: 11-03-2023 End: 11-03-2023 Admission to same day surgery center DO Josh Bunting Work Phone: [facility] [place] Start: 11-03-2023 End: 11-03-2023 ambulatory DO Josh Bunting Work Phone: [facility] Work Phone: Start: 10-23-2023 End: 10-23-2023 ambulatory Josh Bunting Facility:[facility] Start: 10-23-2023 End: 10-23-2023 ambulatory DO Josh Bunting Work Phone: [facility] Work Phone: Start: 10-23-2023 End: 10-23-2023 Patient encounter procedure DO Josh Bunting Work Phone: [facility]Surgical [facility] Work Phone: Start: 10-14-2023 Office outpatient vi sit 40 minutes Karime Nguyen [facility] Start: 10-14-2023 End: 10-14-2023 ambulatory YOGESH BECKER [facility] Other Start: 10-14-2023 End: 10-14-2023 Patient encounter procedure DO Josh Bunting Work Phone: [facility] Work Phone: Start: 10-09-2023 End: 10-09-2023 ambulatory FEROZ PATEL Not Available Start: 10-02-2023 End: 10-02-2023 ambulatory Josh Bunting Facility:[facility] Start: 10-02-2023 End: 10-02-2023 Admission to same day surgery center DO Josh Bunting Work Phone: [facility] [place] [address] [place] Start: 10-02-2023 End: 10-02-2023 ambulatory DO Josh Bunting Work Phone: [facility] Work Phone: Start: 09-30-2023 End: 09-30-2023 ambulatory Savanna Mcclain MD Facility:[facility] Start: 09-29-2023 End: 09-30-2023 ambulatory Savanna Mcclain MD Facility: [facility] Start: 09-26-2023 End: 09-26-2023 ambulatory IMTIAZ ZAIDI Not Available Start: 09-23-2023 End: 09-23-2023 ambulatory Yogesh Becker Facility:[facility] Start: 09-23-2023 End: 09-23-2023 ambulatory DO Josh Bunting Work Phone: [facility] Work Phone: Start: 09-23-2023 End: 09-23-2023 Patient encounter procedure DO Josh Bunting Work Phone: [facility] [place]-Pre-Surgical Testing Work Phone: Start: 09-22-2023 End: 09-23-2023 ambulatory Savanna Mcclain MD Facility: [facility] Start: 09-16-2023 End: 09-16-2023 ambulatory Karime Nguyen Other [facility] [employer] Other Start: 09-16-2023 Office outpatient ne w 45 minutes Karime Nguyen [facility] Start: 09-16-2023 End: 09-16-2023 Patient encounter procedure DO Josh Bunting Work Phone: [facility] Work Phone: Start: 08-11-2023 End: 08-12-2023 ambulatory Savanna Mcclain MD Facility:[facility] Start: 08-11-2023 End: 08-11-2023 ambulatory DO Josh Bunting Work Phone: [facility] Work Phone: Start: 08-11-2023 End: 08-11-2023 Patient encounter procedure DO Josh Bunting Work Phone: [facility] [address] [place] Work Phone: Start: 08-01-2023 End: 08-01-2023 ambulatory Josh Bunting Facility:[facility] Start: 08-01-2023 End: 08-01-2023 Patient encounter procedure DO Josh Bunting Work Phone: [facility]-XRay [address] [place] Work Phone: Start: 07-29-2023 End: 07-29-2023 Emergency department patient visit Nery Casanova Facility:[facility] Start: 07-29-2023 End: 07-29-2023 Emergency department patient visit DO Josh Bunting Work Phone: [facility] [place]-Emergency Room Work Phone: Start: 06-12-2023 End: 06-12-2023 ambulatory Mariel Mcgraw Other [employer] Other Start: 06-12-2023 Telephone encounter Ulyssessam Mcgraw [facility] Start: 04-21-2023 End: 04-21-2023 ambulatory Josh Bunting Facility:[facility] Start: 04-21-2023 End: 04-21-2023 ambulatory DO Josh Bunting Work Phone: [facility] [place] Work Phone: Start: 04-21-2023 End: 04-21-2023 Patient encounter procedure DO Josh Bunting Work Phone: [facility] [address] [place] Work Phone: Start: 03-26-2023 End: 03-26-2023 ambulatory DONNY PERALTA Facility:[facility] Start: 03-26-2023 End: 03-26-2023 Patient encounter procedure Donny Peralta NUT TIGHTENER.CORE RESCUER Work Phone: Otolaryngology Comment on above: Laryngeal candidiasi s (Primary Dx); Glossitis; Oral candidiasis; Hoarseness of voice; History of alcohol abuse Start: 02-10-2023 End: 02-10-2023 ambulatory Errol J Hedaya Facility:[facility] Start: 02-10-2023 End: 02-10-2023 ambulatory DO Josh Bunting Work Phone: [facility] Work Phone: Start: 02-10-2023 End: 02-10-2023 Patient encounter procedure DO Josh Bunting Work Phone: [facility]-XRay [address] [place] Work Phone: Start: 12-31-2022 End: 12-31-2022 ambulatory Josh Bunting Facility:[facility] Start: 12-31-2022 End: 12-31-2022 ambulatory DO Josh Bunting Work Phone: [facility] Work Phone: Start: 12-31-2022 End: 12-31-2022 Patient encounter procedure DO Josh Bunting Work Phone: [facility] [address] Work Phone: Start: 11-06-2022 End: 11-06-2022 ambulatory DO Josh Bunting Work Phone: [facility] Work Phone: Start: 11-06-2022 End: 11-06-2022 Patient encounter procedure DO Josh Bunting Work Phone: [facility]-X[facility] [address] [place] Work Phone: Start: 09-30-2022 End: 09-30-2022 ambulatory DO Josh Bunting Work Phone: [facility] Work Phone: Start: 09-30-2022 End: 09-30-2022 Patient encounter procedure DO Josh Bunting Work Phone: [facility] [address] [place] Start: 06-19-2022 End: 06-19-2022 Patient encounter procedure DO Josh Bunting Work Phone: [facility]-XRay [facility] Start: 06-05-2022 End: 06-05-2022 ambulatory Alexis Abdi Other [employer] Other Start: 06-05-2022 Telephone encounter Alexis Abdi [facility] [employer] [facility] Start: 04-16-2022 End: 04-16-2022 ambulatory Kamal Chaban Other [employer] Other Start: 04-16-2022 Office outpatient vi sit 25 minutes Kamal Chaban [facility] Start: 01-08-2022 End: 01-08-2022 ambulatory Kamal Chaban Other [employer] Other Start: 01-08-2022 Office outpatient vi sit 25 minutes Kamal Chaban [facility] Start: 12-07-2021 End: 12-07-2021 ambulatory Kamal Chaban Other [employer] Other Start: 12-07-2021 Telephone encounter Kamal Chaban [facility] Start: 11-09-2021 ([facility] C Vac) [facility] Co vid Vaccine Courtney Espino [facility] Start: 11-09-2021 End: 11-09-2021 ambulatory Courtney Ramant Other [employer] Other Start: 09-06-2021 End: 09-06-2021 ambulatory Kamal Chaban Other [employer] Other Start: 09-06-2021 Office outpatient vi sit 25 minutes Kamal Chaban [facility] Start: 07-26-2021 Telephone encounter Kamal Chaban [facility] Start: 07-23-2021 Office outpatient ne w 45 minutes Kamal Chaban [facility] Procedures Date Procedure Procedure Detail Performing Clinician Start: 11-25-2023 CT of head without contrast DO Josh Bunjayleen Work Phone: Start: 11-11-2023 XR SCOLIOSIS 2 VIEW (NON EOS) MARYANN RUBALCAVA Start: 11-03-2023 Repair of left ingui nal hernia using surgical mesh DO Josh Bunting Work Phone: Start: 08-11-2023 X-ray of cervical [...] Screening for malign ant neoplasm of colon [facility] Start: 11-11-2029 DTaP/Tdap/Td Vaccine s (2 - Td or Tdap) DTaP/Tdap/Td Vaccines (2 - Td or Tdap) [facility] Start: 11-24-2023 [facility] Start: 11-11-2023 End: 11-11-2024 MR Cervical spine WO contrast MR cervical spine wo IV contrast Imaging Routine Cervical myelopathy (CMS/HCC) Expected: 11/11/2023, Expires: 11/11/2024 [facility] Work Phone: Comment on above: Expected: 11/11/2023 , Expires: 11/11/2024 Start: 11-11-2023 End: 11-11-2024 X-ray scoliosis 2 View (NON EOS) [facility] Service [facility] Work Phone: Comment on above: Expected: 11/11/2023 , Expires: 11/11/2024 Start: 11-03-2023 [facility] Start: 11-03-2023 [facility] Start: 10-02-2023 Repair of left ingui nal hernia using surgical mesh OR Inguinal Hernia Repair W/Mesh Graft (Left) [facility] Start: 10-02-2023 End: 10-02-2023 [facility] Start: 06-27-2023 Influenza vaccination [facility] Start: 03-26-2023 End: 05-26-2023 Comprehensive metabolic 2000 panel - Serum or Plasma [facility] Work Phone: Comment on above: Expected: 03/26/2023 , Expires: 05/26/2023 Start: 10-27-2022 DEPRESSION ASSESSMENT DEPRESSION ASS ESSMENT [facility] Start: 01-04-2022 COVID-19 VACCINE (3 - Booster for Dereck series) COVID-19 VACCINE (3 - Booster for Dereck series) [facility] Start: 08-09-2020 Pneumococcal Vaccine : 65+ Years (2 - PCV) Pneumococcal Vaccine: 65+ Years (2 - PCV) [facility] Start: 08-09-2020 Pneumococcal Vaccine : Pediatrics (0 to 5 Years) and At-Risk Patients (6 to 64 Years) (2 - PCV) Pneumococcal Vaccine: Pediatrics (0 to 5 Years) and At-Risk Patients (6 to 64 Years) (2 - PCV) [facility] Start: 2013 PROSTATE CANCER SCREENING DISCUSSION PROSTATE CANCER SCREENING DISCUSSION [facility] Start: 2008 SHINGRIX VACCINE (1 of 2) SHINGRIX VACCINE (1 of 2) [facility] Start: 2008 Zoster Vaccines (1 of 2) Zoste r Vaccines (1 of 2) [facility] Start: 2003 COLOGUARD (FIT-DNA) COLOGUARD (FIT-D NA) [facility] Start: 2003 Colonoscopy COLONOSCOPY [facility] Start: 2003 COLORECTAL CANCER SCREENING COLORECTAL CANCER SCREENING [facility] Start: [address] COLONOGRAPHY [facility] Start: 2003 DIABETES SCREEN DIABETES SCREEN [facility] Start: 2003 FECAL OCCULT BLOOD FECAL OCCULT BLOO D [facility] Start: 2003 SIGMOIDOSCOPY SIGMOIDOSCOPY [facility] Start: 1993 LIPID SCREEN LIPID SCREEN [facility] Start: 1977 Urine microalbumin profile DTAP,TDAP,TD (1 - Tdap) [facility] Start: 1977 Urine screening for protein Diabetes: Urine Protein Screening [facility] Start: 1976 HEPATITIS C SCREENING HEPATITIS C [facility] Start: 1976 Hepatitis C screening Hepatitis C [facility] Start: 1976 HIV SCREENING HIV SCREENING [facility] Start: 1968 Diabetic foot examination Diabetes: Foot Exam [facility] Start: 1968 Glaucoma screening Diabetes: R etinopathy Screening [facility] Start: 1959 MMR Vaccines (1 of 1 - Standard series) MMR Vaccines (1 of 1 - Standard series) [facility] Start: 1958 Annual wellness visit Medicare Initial Physical (IPPE) [facility] Start: 1958 Hemoglobin A1c measurement Diabetes: Hemoglobin A1C [facility] Start: 1958 HIV screening HIV Screening [facility] Start: 1958 Lipid panel Lipid Panel [facility] Start: 1958 Screening for malign ant neoplasm of colon [facility] Methylmalonate [Moles/volume] in Serum or Plasma [facility] Patient Education [facility] Work Phone: Patient referral [facility] Work Phone: [facility] Immunizations Immunization Date Immunization Notes Care Provider Shannan canales 11-09-2021 COVID-19 (Moderna), Age 12+ DO Josh Bunting Work Phone: [facility] 11-09-2021 COVID-19 Moderna Courtney Fitt Other [facility] 10-16-2021 influenza, injectabl e, quadrivalent, contains preservative Maryann Rubalcava MD Work Phone: [facility] Work Phone: 10-16-2021 influenza virus vaccine, unspecified formulation Maryann Rubalcava MD Work Phone: [facility] Work Phone: 01-04-2021 COVID-19 (J&J) DO Josh Melvin Work Phone: [facility] 01-04-2021 COVID-19 Vaccine Dereck - Documentation Purposes Only Kamal Shariban Other [facility] 08-18-2020 Seasonal, quadrivalent, recombinant, injectable influenza vaccine, preservative free Maryann Rubalcava MD Work Phone: [facility] 07-27-2020 influenza, seasonal, injectable Maryann Rubalcava MD Work Phone: [facility] 11-11-2019 tetanus toxoid, reduced diphtheria toxoid, and acellular pertussis vaccine, adsorbed Kamal Chaban Other [facility] [employer] Other 08-16-2019 influenza, seasonal, injectable, preservative free Maryann Rubalcava MD Work Phone: [facility] Work Phone: 08-09-2019 influenza, injectabl e, quadrivalent, preservative free Maryann Rubalcava MD Work Phone: [facility] 08-09-2019 pneumococcal polysaccharide vaccine, 23 valent Maryann Rubalcava MD Work Phone: [facility] 08-08-2019 pneumococcal polysaccharide vaccine, 23 valent Maryann Rubalcava MD Work Phone: [facility] Work Phone: 09-08-2018 influenza, injectabl e, quadrivalent, contains preservative Maryann Rubalcava MD Work Phone: [facility] 07-29-2017 influenza, injectable,quadrivalen t, preservative free, pediatric Kamal Chaban Other [employer] Other 10-14-2009 pneumococcal polysaccharide vaccine, 23 valent Maryann Rubalcava MD Work Phone: [facility] Work Phone: NEGATED: Highlighted row has not occurred!07-29-2017 influenza, injectable,quadrivalen t, preservative free, pediatric Kamal Chaban Other [employer] Other Payers Date Payer Category Payer Private Health Insurance 2022 Self-pay [id number] 2021 Medicare [id number] 2021 Medicare [id number] [id number] 2021 Medicare [id number] .[id number] 2021 Medicare [id number] [id number] 1958 Unknown [id number] 2.16.840.1.871421.3.579.2.125 9 1958 Unknown [id number] 2.16.840.1.423374.3.579.2.125 9 1958 Unknown [id number] 2.16.840.1.005726.3.579.2.125 9 1958 Unknown [id number] 2.16.840.1.870403.3.579.2.125 9 1958 Unknown [id number] 2.16.840.1.887751.3.579.2.124 2 1958 Unknown [id number] 2.16.840.1.138467.3.579.2.124 2 1958 Unknown [id number] 2.16.840.1.334950.3.579.2.196 1958 Unknown [id number] 2.16.840.1.794327.3.579.2.196 1958 Unknown [id number] 2.16.840.1.524190.3.579.2.196 1958 Unknown [id number] 2.16840.1.697692.3.579.2.196 1958 Unknown [id number] 2.840.1.489649.3.579.2.196 Medicare Medicare [id number] Medicare MMO MCR Adv PFFS [id number] Medicare [employer] MCR [id number] 501 [id number] Unknown [id number] 2.840.1.644794.3.579.2.531 Unknown [id number] 2.840.1.164684.3.579.2.531 Unknown [id number] 2.16840.1.637044.3.579.2.531 Unknown [id number] 2.16.840.1.855563.3.579.2.531 Unknown [id number] 2.16.840.1.832024.3.579.2.531 Unknown [id number] 2.16.840.1.973176.3.579.2.531 Unknown [id number] 2.840.1.673550.3.579.2.531 Unknown [id number] 2.16.840.1.897426.3.579.2.531 Unknown [id number] 2.16.840.1.851140.3.579.2.531 Unknown [id number] 2.16.840.1.068275.3.579.2.531 Unknown [id number] 2.16.840.1.430905.3.579.2.531 Unknown [id number] 2.16.840.1.208309.3.579.2.531 Worker's Compensation Industrial [employer] [facility] [id number] Social History Date Type Detail Facility Sex Assigned At [facility] [employer] Other Start: 05-22-2021 End: 05-22-2021 Tobacco smoking status WVIS Smoker (finding) [facility] Start: 1960 Sex Assigned At Male F [facility] Start: 03-26-2023 End: 11-03-2023 Tobacco smoking status WVIS Ex-smoker [facility] History of tobacco use Cigarette Smoker [facility] Start: 03-26-2023 End: 11-11-2023 Tobacco use and exposure Smokeless tobacco non-user [facility] Start: 03-26-2023 Alcohol intake Current drinke r of alcohol (finding) [facility] Start: 03-26-2023 [facility] Start: 1960 Sex Assigned At [facility] Start: 11-11-2023 Tobacco smoking status WVIS Never smoked tobacco [facility] Work Phone: Start: 11-01-2023 End: 11-11-2023 Exposure to SARS-CoV-2 (event) Not sure [facility] Medical Equipment Procedure Code Equipment Code Equipment Origin al Text Equipment Identifier Dates Repair, hernia, inguinal, with mesh Abdominal hernia surgical mesh, synthetic polymer, non-bioabsorbable [id number] [facility] Start: 11-03-2023 [id number] Start: 08-14-2023 Goals Date Patient Goal Desired Activity /State Clinical Notes 04-17-2021 to 11-11-2023 Maryann Rubalcava MD - 11/11/2023 10:00 AM EST Note Date & Type Note Facility 11-11-2023 History of Present illness Narrative It was a pleasure to see Mr. Meier at [facility]. Patient is a 62-year-old male with prior [...] L2-L3 and L1-L2. Even in the supine home economist CT for patient has a flatback deformity. [...] were answered. Maryann Rubalcava MD, [facility] Top Cleaner of Neurological Surgery [employer] [facility] [employer] Attending Surgeon Director - Minimally Invasive Spine Surgery [place], [place] Some of this note was completed using [employer] voice recognition technology and sometimes the software misinterprets words. This may include unintended errors with respect to translation of words, typographical errors or grammar errors which may not have been identified prior to finalization of the chart note. Please take this into account when reading this note documented in this encounter [facility] Work Phone: 10-14-2023 Evaluation note Encounter [...] region with neurogenic claudication (ICD-10 - M48.062) [employer] Other 12-05-2023 NoteProcedure Performed by: Savanna Mcclain M.D. Procedure: Placement of [place] ChatterBlock Impulse Generator Battery under fluoroscopic guidance *Battery [...] discharged in good condition. Electronically signed by Savanna Mcclain MD 09/30/23 13:12 [facility] 09-30-2023 NoteHistory of Present Illness The [...] No qualifying data available. Electronically signed by Johny MATUTE, Savanna Darden 09/30/23 13:10 [facility] 09-16-2023 Evaluation note* Encounter Date Diagnosis [...] weeks. Aug, Lumbar radiculopathy (ICD-10 - M54.16) [employer] Other 08-17-2023 Evaluation note* Encounter Date Diagnosis Assessment Notes Treatment Notes Treatment Clinical Notes May, Gastroesophageal ref lux disease, unspecified whether esophagitis present (ICD-10 - K21.9) [employer] Other 05-31-2023 NoteHNO ID: [id number] Author: Donny Peralta APRN.CORE RESCUER Service: ? Author Type: Nurse Practitioner Type: [...] 2 to 3 weeks time. Donny Peralta APRN.CORE RESCUER CC: Josh Melvin [facility]05-31-2023 History of Present illness Narrative* Donny Peralta APRN.CORE RESCUER - 03/26/2023 11:14 AM EDT Mr. Meier [...] 2 to 3 weeks time. Donny Peralta APRN.CORE RESCUER CC: Josh Melvin DO [facility]* Encounter Date Diagnosis Assessment Notes Treatment Notes Treatment Clinical Notes Mar, Obstructive sleep ap dee (ICD-10 - G47.33) Please get a compliance report now and before next visit Mar, Gastroesophageal ref lux disease, unspecified whether esophagitis present (ICD-10 - K21.9) Mar, Lung nodule (ICD-10 - R91.1) [employer] Other 03-15-2022 Evaluation note* Encounter Date Diagnosis [...] be after his CT in 1 year [employer] Other 01-14-2022 Evaluation note* Encounter Date Diagnosis Assessment Notes Treatment Notes Treatment Clinical Notes Oct, Encounter for immunization (ICD-10 - Z23) Patient presents for COVID-19 vaccination BOOSTER. Pre-screening form answers evaluated with patient. Patient denies current illness or allergic reaction to component of COVID-19 vaccine. Patient provided with current copy of EUA. [employer] Other 09-27-2021 Evaluation note* Encounter Date Diagnosis Assessment Notes Treatment Notes Treatment Clinical Notes Jun, Lung nodule (ICD-10 - R91.1) Jun, Chronic cough (ICD-1 0 - R05) Jun, Obstructive sleep ap dee (ICD-10 - G47.33) Jun, Gastroesophageal ref lux disease, unspecified whether esophagitis present (ICD-10 - K21.9) [employer] Other 06-24-2021 NotePatient: KOKO MEIER Age: 60 [...] mg, 1 tab(s), Oral, BID, 0 Refill(s) [facility]Result Comment: Electronically Signed By: Kwame Yang DO\.br\Date and Time Signed: 04/19/21 12:56 EDT 04-17-2021 [id number]:127[facility] noteNo InformationNort [employer] Other Evaluation noteNofreeman [facility] system [employer] Other Evaluation noteNo assessment information available [facility] Work Phone: Evaluation note* Diagnosis Laryngeal candidiasis- Primary Other candidiasis of other specified sites Glossitis Oral candidiasis Candidiasis of mouth Hoarseness of voice Dysphonia History of alcohol abuse Nondependent alcohol abuse, in remission documented in this encounter [facility] Diagnosis Cervical myelopathy (CMS/HCC)- Primary Cervical spondylosis with myelopathy Sagittal plane imbalance Other curvatures of spine associated with other conditions 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 Lumbar stenosis with neurogenic claudication documented in this encounter [facility] Work Phone: History general Narrative - [...] finger 10/2019 Hospitalization History see sx history [employer] Other History general Narrative - ReportedNort [employer] Other History general Narrative - Reported* Type Description [...] finger 10/2019 Hospitalization History see sx history [employer] Other Hospital Discharge instructions Additional Instructions Please call Dr. Becker' office to reschedule your surgery.[facility] Work Phone: Hospital Discharge instructions Additional Instructions 1. No driving if taking narcotic pain medication. 2. No lifting more than 20 pounds for 3 weeks. 3. May shower.[facility] Work Phone: Progress note Author Yogesh Becker [facility] October 02, 2023 9:46am Note Date/Time October 02, 2023 9 :46am [facility] [address] [place] [address] Progress Note Signed Patient: Koko Meier MR#: [id number] : 1960 Acct:[id number] Age/Sex: 62 / M Adm Date: 3 Loc: [place] Room: Type: [facility] Attending Dr: Yogesh Becker MD Copies to: ~ Date of Service: 10/02/2023 Progress Narrative Note PROGRESS NOTE Progress Note: Patient's tox screen today is positive for cocaine. Surgery will be canceled. Patient is told to call the office this afternoon to reschedule the surgery. Documented By: Yogesh Becker MD 10/02/23 0945 Signed By: <Electronically signed by MD Yogesh Becker> 10/02/23 0946 [facility] Work Phone: Summary Purpose Family History [...] pain Hernia Hernia inguinal hernia inguinal hernia Chief Complaint Ref By Dr. Savanna hightower For Lumbar Hernia Hernia Follow Up Lumbar Pain inguinal hernia inguinal hernia e78.2 e11.9 z79.89;Z12.5;R25.1;R41.3 Chief Complaint Ref By Dr. Savanna hightower For Lumbar Hernia Hernia Follow Up Lumbar Pain inguinal hernia inguinal hernia e78.2 e11.9 z79.89;Z12.5;R25.1;R41.3 r41.3 Reason for Referral Specialty Diagnoses / Procedures Referred By Bala phillips Referred To Contact Radiology Diagnoses Cervical myelopathy (CMS/HCC) Procedures MR cervical spine [place] [id number] [address] Department [place] [address] Referral ID Status Reason Start Date Expiration Date Visits Requested Visits Authorized Pending Review Perform Procedure 11/11/2023 11/10/2024 1 1 Specialty Diagnoses / Procedures Referred By Bala phillips Referred To Contact Radiology Diagnoses Sagittal plane imbalance Procedures X-ray scoliosis 2 View (NON EOS) [place] [id number] [address] Department [place] [address] Referral ID Status Reason Start Date Expiration Date Visits Requested Visits Authorized [id number] Authorized Perform Procedure 11/11/2023 11/10/2024 1 1 Reason surgical consult Diagnosis 1 Lumbar myelopathy (G 95.9) Referral Organization [facility] Referring Provider First Name Karime Referring Provider Last Name Marleni Referring Provider Specialty Nurse Pract itioner Referred Organization [facility] Referred Provider MARYANN RUBALCAVA Referred Address [address] [place] [address] [place],[address] Referred Provider Specialty Neurosurgery Referral Priority Routine General Notes Juana Scanlon 03:14:14 PM >received today, holding referral until office note is locked Juana Scanlon 10/16/2023 08:38:30 AM >note not locked yet Reason evaluate and treat Diagnosis 1 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) Referral Organization [facility] Referring Provider First Name Karime Referring Provider Last Name Marleni Referring Provider Specialty Nurse Pract itioner Referred Organization [facility] Referred Address [address],[place], [place],[address] Referred Provider Specialty Physical The rapist Referral Priority Routine Additional Source Comments (unrecognized sect ion and content) No Status Records FoundNo Status Records FoundNo Status Records FoundNo Status Records FoundNo Status Records FoundNo Status Records Found INFORMATION SOURCE (unrecogn ized section and content) DATE CREATED AUTHOR [facility]20[facility] DATE CREATED AUTHOR AUTHOR'S ORGANIZ ATION 04/15/2023 [facility] DATE CREATED AUTHOR AUTHOR'S ORGANIZ ATION 11/10/2023 [facility] DATE CREATED AUTHOR AUTHOR'S ORGANIZ ATION 11/16/2023 [facility] DATE CREATED AUTHOR AUTHOR'S ORGANIZ ATION 11/21/2023 [facility] DATE CREATED AUTHOR AUTHOR'S ORGANIZ ATION 12/03/2023 [facility] REASON FOR VISIT (unrecogniz ed section and content) Reason Comments Mouth lesion on left side Specialty Diagnoses / Procedures Referred By Contact Referred To Contact Ent - Otolaryngology / ENT-OTOLARYNGOLOGY Diagnoses Mouth Lesion on Left side of jaw Procedures NEW [facility] PATIENT Josh Melvin DO [address] [place] [address] Donny Peralta, NUT TIGHTENER.CORE RESCUER [address] [place] [address] Referral ID Status Reason Start Date Expiration Date V isits Requested Visits Authorized [id number] Authorized 03/25/2023 10/26/2023 99 99 Reason Comments Neck Pain Back Pain Care Teams (unrecognized sec tion and content) Team Status: Inactive Member Role Status Dates Josh Velascojayleen , DO Primary Care Provider, Attending Dante peter Active Team Status: Active Member Role Status Dates Josh Olegario , DO Primary Care Provider Active Team Status: Inactive Member Role Status Dates Josh Velascojayleen , DO Primary Care Provider Active Flip Diamond Attending Provider Active Team Status: Inactive Member Role Status Dates Josh Velascojayleen , DO Primary Care Provider Active Yunier Ariza MD Attending Provider Active Team Status: Inactive Member Role Status Dates Joshana Velascojayleen , DO Primary Care Provider Active Mariel Mcgraw MD Attending Provider Active Team Status: Inactive Member Role Status Dates Josh Olegario , DO Primary Care Provider Active Errol Humphrey MD Attending Provider Active Team Status: Inactive Member Role Status Dates Josh Olegario , DO Primary Care Provider Active Nery Casanova RELIGIOUS EDUCATOR- Emergency Provider Active Team Status: Inactive Member Role Status Dates Joshana Velascojayleen , DO Primary Care Provider Active Savanna Mcclain MD Attending Provider Active Team Status: Inactive Member Role Status Dates Josh Melvin , DO Primary Care Provider Active Yogesh Becker MD Attending Provider Active Team Status: Inactive Member Role Status Dates SHARRON Colindres Attending Provider Active Start: September 16, 2023 End: September 16, 2023 Team Status: Inactive Member Role Status Dates Josh Melvin , DO Primary Care Provider Active Start: September 23, 2023 End: September 23, 2023 Yogesh Becker MD Attending Provider Active Sta rt: September 23, 2023 End: September 23, 2023 Team Status: Inactive Member Role Status Dates Josh Velascojayleen , DO Primary Care Provider Active Start: October 02, 2023 End: October 02, 2023 Yogesh Becker MD Attending Provider Active Sta rt: October 02, 2023 End: October 02, 2023 Team Status: Inactive Member Role Status Dates SHARRON Colindres Attending Provider Active Start: October 14, 2023 End: October 14, 2023 Team Status: Inactive Member Role Status Dates Joshana Melvin , Primary Care Provider Active Start: October 23, 2023 End: October 23, 2023 Yogesh Becker MD Attending Provider Active Sta rt: October 23, 2023 End: October 23, 2023 Team Status: Inactive Member Role Status Dates Josh Melvin , DO Primary Care Provider Active Start: November 03, 2023 End: November 03, 2023 Yogesh Becker MD Attending Provider Active Sta rt: November 03, 2023 End: November 03, 2023 Team Status: Inactive Member Role Status Dates Josh Melvin , DO Primary Care Provide r, Attending Provider Active Start: November 24, 2023 End: November 24, 2023 Oliver Kerr MD Referring Provider Active S tart: November 24, 2023 End: November 24, 2023 Team Status: Inactive Member Role Status Dates Josh Rodjayleen , DO Primary Care Provider Active Start: November 25, 2023 End: November 25, 2023 Oliver Kerr MD Attending Provider Active S tart: November 25, 2023 End: November 25, 2023 Goals (unrecognized section and content) Goals may be documented in a n alternate section Source Comments (unrecognize d section and content) In the event this informatio n is protected by the Federal Confidentiality of Alcohol and Drug Abuse Patient Records regulations: The Federal rules restrict any use of the information to criminally investigate or prosecute any alcohol or drug abuse patient.[facility] FOR RECORDS PERTAINING TO PATIENTS WHO [...] BE BASED ON THE PRIMARY CLINICAL RECORDS. [facility] provides no warranty or guarantee of the accuracy or completeness of information in this document.
[2023-12-08 08:44] VITALS: BP 140/76; PULSE 85; RESP 18; TEMP 36.5; O2SAT 98
[2023-12-08] MEDS: 0.9 % SODIUM CHLORIDE 10 ML INJ (09:36)
[2023-12-08] MEDS: IOHEXOL 240 MG/ML - 10 ML VIAL INJ (09:36)
[2023-12-08] MEDS: LIDOCAINE HCL 2% PF 100 MG/5 ML VIAL 1 ML INJ (09:36)
[2023-12-08] MEDS: BUPIVACAINE HCL 0.25% PF 25 MG/10 ML VIAL INJ (09:36)
[2023-12-08 09:38] VITALS: BP 163/87; BP 219/86; PULSE 77; PULSE 84; RESP 18; O2SAT 93; O2SAT 97
--- NOTE | 2023-12-08 09:39 | P.ON_ITS ---
Date of procedure: 12/08/23 Pre-op diagnosis: Cervical radiculopathy, cervical stenosis Post-op diagnosis: same as pre-op Procedure: Procedure: Right C3-4, 4-5 transforaminal epidural steroid injection Medications: Bupivacaine 0.25% 2cc, dexamethasone 10mg The patient was seen and examined in the preoperative holding area.? Informed consent was obtained and placed on the chart.? Patient was brought to the medical procedure unit and placed in the prone position where a timeout was completed verifying the correct patient, procedure site, position, and planned special equipment using sterile aseptic technique.? Under direct fluoroscopic visualization a 25-gauge Quincke tipped spinal needle was advanced to the designated neural foramen where contrast dye was injected to show adequate spread.? The needle was inserted at level right C3-4. There was no evidence of vascular or adverse uptake.? Epidural spread was appreciated.? The above- mentioned injectate was then placed in a 1.5 mL aliquot preceded by negative aspiration.? The needle was removed. The needle was inserted and the procedure repeated at level right C4-5.? The surgery site was covered.? Patient was taken to the postprocedural recovery area and monitored for an appropriate length of time before found suitable for discharge in the accompaniment of a responsible adult. Anesthesia: Local Surgeon: Savanna Mcclain Pathology: none sent Condition: stable Disposition: no change
[2023-12-08] MEDS: DEXAMETHASONE SOD PHOS 10 MG/ML VIAL INJ (09:46)
== END 2023-12-08 09:46 | disposition home or self-care (01) ==
PROVIDERS: PCP Family Medicine; Visit Provider Anesthesiology
DX: M48.02 Spinal stenosis, cervical region (principal); M54.12 Radiculopathy, cervical region; Z79.4 Long term (current) use of insulin
CPT/HCPCS: 64479; 64480; 82948; J0665; J1100; Q9966

== ENCOUNTER 2023-12-24 08:46 | Outpatient (OUT) | payer MEDICARE, SELFPAY ==
--- NOTE | 2023-12-24 08:42 | PM.CN ---
Consult Note: HPI Data of Consult Patient: known to practice within the last 3 years Requesting Physician: Rosemary Kwon NP Primary Care Provider: JOSH MELVIN Consult Narrative Reason for consult: f/u Narrative: Koko Hernandez a pleasant 63 year old male presents for evaluation of chronic pain. Today pain in neck 0/10 reporting significant relief from right C3/4 C4/5 TFESI >60% improvement in pain and complete resolution of radiculopathy. Patient would like to discuss chronic low back pain with pain radiating down bilateral legs, pt has SCS in place. Pain today 7/10 increasing to 10/10 with activity. Patient denies loss of bowel/bladder. Patient finds mild benefit from cymbalta 60mg daily, gabapentin 600mg 1.5 pills TID his pharmacy did not give him the 1200mg TID. Patient has been following with [facility] for lumbar spine pain and patient is likely a surgical candidate. Patient would like to discuss repeating bilateral L1-2 TFESI as previous injection provided >50% improvement for 3 months but has since worn off. cc:: CC: Rosemary Kwon NP Review of Systems ROS Status of ROS 10 or more systems reviewed and unremarkable except as noted in history and below Musculoskeletal Reports: back pain and neck pain PFSH PFSH Medical History Fusion of spine, cervical region ?M43.22 - Fusion of spine, cervical region (ICD-10) Lumbar post-laminectomy syndrome ?M96.1 - Postlaminectomy syndrome, not elsewhere classified (ICD-10) Anxiety ?F41.9 - Anxiety disorder, unspecified (ICD-10) HTN (hypertension) ?I10 - Essential (primary) hypertension (ICD-10) High cholesterol ?E78.00 - Pure hypercholesterolemia, unspecified (ICD-10) Diabetes ?E11.9 - Type 2 diabetes mellitus without complications (ICD-10) Diverticulosis ?K57.90 - Diverticulosis of intestine, part unspecified, without perforation or abscess without bleeding (ICD-10) Surgical History History of shoulder surgery ?Z98.890 - Other specified postprocedural states (ICD-10) History of colon resection ?Z90.49 - Acquired absence of other specified parts of digestive tract (ICD-10) History of lumbar surgery ?Z98.890 - Other specified postprocedural states (ICD-10) Social History Gender Identity: male Meds Home Medications and Allergies Home Medications Medication Instructions Recorded Confirmed Type atorvastatin 40 mg tablet 40 mg PO DAILY 08/14/23 12/08/23 History buspirone 30 mg tablet 30 mg PO TID 08/14/23 12/08/23 History celecoxib 200 mg capsule 200 mg PO DAILY 08/14/23 12/08/23 History cyclobenzaprine 10 mg tablet 10 mg PO TID 08/14/23 12/08/23 History duloxetine 60 mg capsule,delayed 60 mg PO BID 08/14/23 12/08/23 History release empagliflozin 10 mg tablet 10 mg PO DAILY 08/14/23 12/08/23 History (Jardiance) insulin aspart U-100 100 unit/mL 1 sliding scale dose subcut 08/14/23 12/08/23 History (3 mL) subcutaneous pen (Novolog USEASDIRECTD FlexPen U-100 Insulin aspart) insulin degludec 200 unit/mL (3 20 unit subcut DAILY 08/14/23 12/08/23 History mL) subcutaneous pen (Tresiba FlexTouch U-200 insulin) lisinopril 20 1 tab PO DAILY 08/14/23 12/08/23 History mg-hydrochlorothiazide 12.5 mg tablet metformin 1,000 mg tablet 1,000 mg PO DAILY 08/14/23 12/08/23 History omeprazole 40 mg capsule,delayed 40 mg PO DAILY 08/14/23 12/08/23 History release gabapentin 600 mg tablet 1,200 mg (2 x 600 mg) PO TID #540 09/08/23 12/08/23 Rx tabs Allergies Allergy/AdvReac Type Severity Reaction Status Date / Time No Known Drug Allergies Allergy Verified 11/17/23 07:16 Exam Constitutional Documenting provider has reviewed patient's vital signs: yes Common normals: no apparent distress, oriented x3, healthy appearing, alert and well nourished General appearance: cooperative HENMT Common normals: normocephalic, hearing grossly normal bilaterally and moist oral mucous membranes Head and scalp: normocephalic Eye Common normals: PERRL Pupil: PERRL Neck & C-Spine Common normals: full ROM General: normal visual inspection Cervical spine: cervical ROM abnormal, pain with cervical ROM, cervical spine tenderness and paracervical muscle tenderness Other: positive facet loading bilaterally sensation intact in BUE, strength 5/5 negative hoffmans negative spurlings. no radiculopathy Chest Common normals: inspection of chest normal Respiratory Common normals: normal respiratory effort, no retractions and no use of accessory muscles Back & Pelvis Lumbar spine/lower back: ROM limited, pain with ROM, straight leg raise positive right and straight leg raise positive left Sacroiliac joints: SI joints normal Extremity Common normals: normal to inspection and full ROM Neuro Common normals: oriented x3, CN's II-XII intact bilaterally, moves all extremities, no focal motor deficits, no sensory deficits noted and deep tendon reflexes 2+ bilaterally Sensorium/orientation: alert Gait (neuro): antalgic Motor exam: strength 5/5 throughout and no movement abnormalities noted Psych Common normals: mental status grossly normal, thought process normal, cooperative, affect normal, speech normal and activity/motor behavior normal Speech: normal speech Thought process: normal thought process Results Additional Findings Additional findings: I have checked an [place]AR[place] report on this patient today and there are no aberrancies noted in the prescribing history.?? A drug screen was completed and reviewed within the last year, and if there has not been a drug screen completed we ordered one today to monitor higher risk, state monitored pain medication use. As part of providing excellent, safe, comprehensive care, the following was completed at our patient's visit: 1. A medication reconciliation and review to ensure accurate knowledge of current/active medications, including asking our patients to inform us about any [id number] medications or herbal remedies/nutritional supplements/alternative remedies. 2. A review to specifically ensure our patients have had annual screening for: elevated body mass index (BMI), tobacco use, screening for depression, and screening for unhealthy alcohol use. When screening is concerning, patients are provided with education and the specific recommendation to discuss the concerning health issue and treatment options with their primary care provider. Assessment and Plan Assessment and Plan (1) Cervical spondylosis: Assessment and Plan: The patient has had over 3 months of moderate to severe neck pain with functional impairment and inadequate response to conservative care including NSAIDS (unless there are contraindication such as concurrent blood thinners), multiple oral or topical pain medications, and home exercise program/physical therapy.? Patient has completed >6 weeks of guided home exercise program and/or formal physical therapy program without relief of their symptoms.? I have reviewed the imaging of the cervical spine and no red flags were identified (2) Cervical post-laminectomy syndrome: (3) Cervical stenosis of spinal canal: (4) Cervicalgia: (5) Lumbar postlaminectomy syndrome: (6) Lumbar stenosis with neurogenic claudication: (7) Status post insertion of spinal cord stimulator: Plan bilateral L1-2 TFESI under fluoroscopy, risks vs benefits discussed defer cervical facet blocks at this time continue current medications, tolerating well without side effects continues to find functional benefit f/u with neurosurgery as planned for lumbar spine finding mild relief from SCS f/u 2 weeks after injection
== END 2023-12-24 08:47 | disposition home or self-care (01) ==
LOC: PM 08:47
PROVIDERS: PCP Family Medicine; Visit Provider Nurse Practitioner
DX: M47.812 Spondylosis without myelopathy or radiculopathy, cervical region (principal); M96.1 Postlaminectomy syndrome, not elsewhere classified; M54.2 Cervicalgia; M48.062 Spinal stenosis, lumbar region with neurogenic claudication; Z96.82 Presence of neurostimulator
CPT/HCPCS: G0463

== ENCOUNTER 2024-02-16 07:03 | Day surgery (SDC) | payer MEDICARE, SELFPAY ==
--- OUTSIDE RECORDS SUMMARY | 2024-02-16 07:08 | XMS_ITS | CCD ---
Author Organization [facility] Care Team Providers Care Forest Pathologist Name Role Phone Mariel Mcgraw Unavailable Courtney Espino Unavailable Bunting, DO Josh Primary Care Provider Flip Diamond Attending Provider [phone] Alexis Abdi Unavailable Bunting, DO Josh Primary Care Provider Bunting, DO Josh Attending Provider MD Yunier Ariza Attending Provider Bunting, DO Josh Primary Care Provider MD Mariel Mcgraw Attending Provider [phone] Bunting, DO Josh Primary Care Provider MD Mariel Mcgraw Attending Provider MD Errol Humphrey Attending Provider [phone] Unavailable Primary Care Provider Unavailabl e DONNY PERALTA Attending Unavailable BUNTING, JOSH RAY Referring Unavailable DONNY PERALTA Referring Unavailable Bunting, DO Josh Primary Care Provider Bunting, DO Josh Attending Provider Bunting, DO Josh Primary Care Provider PORTER CasanovaP-AMAIRANI [place] Emergency Provider [phone] Bunting, DO Josh Attending Provider MD Savanna Mcclain Attending Provider Bunting, DO Josh Primary Care Provider Edilberto, DATA CENTER OPERATOR- Nery E Emergency Provider Bunskylar, DO Josh Attending Provider [phone] MD Savanna Mcclain Attending Provider MD Yogesh Becker Attending Provider [phone] Karime Nguyen Unavailable Bunting, DO Josh Primary Care Provider Unavailable Primary Care Provider Unavailabl e MARYANN RUBALCAVA Attending Unavailable MARYANN RUBALCAVA Referring Unavailable Bunting, DO Josh Primary Care Provider Bunting, DO Josh Attending Provider MD Oliver Kerr Referring Provider MD Oliver Kerr Attending Provider Johny MATUTE, Andrius Vytautedison Attending Unavailable Johny MATUTE, Andrius Vytautas Attending Unavailable Johny MATUTE, Andrius Vytautas Attending Unavailable Johny MATUTE, Andrius Vytautedison Attending Unavailable Johny MATUTE, Andrius Vytautedison Attending Unavailable Johny MATUTE, Andrius Vytautedison Attending Unavailable MD Maryann Rubalcava Attending Provider Bunting, DO Powell Primary Care Provider MD Yogesh Becker Attending Provider Bunskylar, DO Powell Attending Provider [phone] MD Oliver Kerr Referring Provider MD Oliver Kerr Attending Provider MD Maryann Rubalcava Attending Provider [phone] YOGESH MORRIS Attending Unavailable BUNTING, JOSH R Referring Unavailable BECKER VYOGESH Attending Unavailable FEROZ PATEL Attending Unavailable BUNSKYLAR, JOSH R Referring Unavailable BECKER V, YOGESH Attending Unavailable IMTIAZ ZAIDI Attending Unavailable KARIME NGUYEN Referring Unavailable PETZNICK, FEROZ M Attending Unavailable BECKER V, YOGESH Attending Unavailable Bunting, Josh Attending Unavailable Bunting, Josh Admitting Unavailable Bunting, Josh Primary Care Unavailable Bunting, Josh Primary Care Unavailable Bunting, Josh Attending Unavailable Bunting, Josh Admitting Unavailable Giedraitis, Andrius Attending Unavailable Bunting, Josh Primary Care Unavailable Giedraitis, Andrius Admitting Unavailable Becker, Yogesh Admitting Unavailable Becker, Yogesh [...] Primary Care Unavailable Becker, Yogesh Attending Unavailable Becker, Yogesh Admitting Unavailable Bullimore, Nery E Attending Unavailable Bunting, Josh Primary Care Unavailable Bullimore, Nery E Admitting Unavailable Vandemere, Oliver Referring Unavailable Bunting, Josh Primary Care Unavailable Bunting, Josh Attending Unavailable Bunting, Josh Admitting Unavailable Vandemere, Oliver Attending Unavailable Vandemere, Oliver Admitting Unavailable Bunting, Josh Primary Care Unavailable Bunting, Josh Primary Care Unavailable KasliMaryann leon Attending Unavailable Maryann Rubalcava Admitting Unavailable Bunting, Josh Primary Care Unavailable Errol Humphrey Attending Unavailable Errol Humphrey Admitting Unavailable Medications Current Medications Medication Drug Class(es) Dates Sig (Normalized) Sig (Original) acetaminophen 325 mg / HYDROcodone bitartrate 5 mg oral tablet (7 sources) Opioid Agonist Start: 01-19-2024 take 1 tablet by mouth every six hours Hydrocodone-Aceta minophen Active 1 TAB PO Q6H 28 January 19, 2024 Start: 11-03-2023 End: 01-12-2024 take 1 tablet by mouth every six hours Hydrocodone-Acetaminophen Discontinued 1 TAB PO Q6H 28 November 03, 2023 January 12, 2024 11:05am atorvastatin 40 mg oral tablet (20 sources) HMG-CoA Reductase Inhibitor Start: 04-20-2019 End: 02-26-2021 take 1 tablet by mouth once daily in the morning Atorvastatin (Lipitor) 40 mg Tablet Active 40 MG PO Every morning April 20, 2019 12:00am busPIRone hydrochloride 30 mg oral tablet (20 sources) Start: 09-23-2023 take 30 mg by mouth three times daily Buspirone Active 30 MG PO Three times daily September 23, 2023 1:00am Start: 03-13-2023 busPIRone (Bus par) 30 mg [...] 15 MG PO Three times daily April 20, 2019 12:00am September 23, 2023 12:33pm take 1 tablet by twyla every twelve hours busPIRone HCl 30 MG 1 tablet Orally Twice a day Active Comment on above: TAKE 1 TABLET BY TWYLA THREE TIMES DAILY FOR ANXIETY celecoxib 200 mg oral capsule (20 sources) Nonsteroidal Anti-inflammatory Drug Start: 019 take 1 capsule by mouth twice daily Celecoxib (Celebrex) 200 mg Capsule Active 200 MG PO Twice daily April 20, 2019 12:00am Comment on above: take 1 capsule by mo [facility] twice a day Oral for 28 Days clotrimazole 10 mg oral lozenge (1 source) Azole Antifungal Start: 023 End: 023 clotrimazole (MYCELEX) 10 mg bud Use 1 Bud as instructed four times daily for 14 days. 56 tablet 0 03/26/2023 04/09/2023 Active Comment on above: Use 1 Bud as inst ructed four times daily for 14 days. cyclobenzaprine hydrochloride 10 mg oral tablet (13 sources) Muscle Relaxant Start: 023 take 10 mg by mouth three times daily Cyclobenzaprine Active 10 MG PO Three times daily September 23, 2023 1:00am take 1 tablet by twyla th every [...] Start: 04-20-2019 take 1 capsule by mo njh twice daily Duloxetine (Cymbalta) 60 mg Capsule,Delayed Release(Dr/Ec) Active 60 MG PO Twice daily April 20, 2019 12:00am Start: 04-20-2019 Duloxetine (Cy mbalta) 60 mg Capsule,Delayed Release(Dr/Ec) Active 30 MG PO Twice daily April 20, 2019 12:00am take 1 capsule by mo [facility] every twenty-four hours DULoxetine HCl 60 MG 1 capsule Orally Once a day Active Comment on above: 1 capsule q 12 HR. empagliflozin 10 mg oral tablet (11 sources) Sodium-Glucose Cotransporter 2 Inhibitor Start: 07-01-20 take 1 tablet by mouth once daily in the morning Empagliflozin (Jardiance) 10 mg Tablet Active 10 MG PO Every morning September 23, 2023 1:00am empagliflozin (J ARDIANCE) 10 mg tablet Take 10 mg by mouth. 0 Active Comment on above: Take 10 mg by mouth. FreeStyle René reader (FreeStyle René 2 [place]) misc (1 source) Start: 07-25-2023 End: 07-24-2024 FreeStyle René reader (FreeStyle René 2 [place]) misc 1 each by Does not apply route every 14 (fourteen) days. 0 07/25/2023 07/24/2024 Active gabapentin 600 mg oral tablet (20 sources) Anti-epileptic Agent Start: 09-23-2023 take 1200 mg by mouth three times daily Gabapentin Active 1200 MG PO Three times daily September 23, 2023 1:00am Start: 04-20-2019 take 2 capsules by m [...] 3 CAP PO Three times daily April 20, 2019 12:00am September 23, 2023 12:37pm Comment on above: Take 1 capsule by mo uth. hydroCHLOROthiazide 12.5 mg / lisinopril 20 mg oral tablet (20 sources) Thiazide Diuretic, Angiotensin Converting Enzyme Inhibitor Start: 09-23-20 take 1 tablet by mouth once daily in the morning Lisinopril-[place] chlorothiazide Active 1 TAB PO Every morning September 23, 2023 1:00am Start: 04-03-2021 lisinopriL-hyd rochlorothiazide 10-12.5 mg tablet [...] time. hydrOXYzine pamoate 25 mg oral capsule (11 sources) Antihistamine Start: 3 take 25 mg by mouth every six hours Hydroxyzine Pamoate Active 25 MG PO Q6H September 23, 2023 1:00am Start: 01-30-2023 hydrOXYzine pa moate (Vistaril) 25 [...] Insulin) 100 unit/mL (3 mL) insulin pen (9 sources) Start: 09-23-2023 inject 1 dose by subcutaneous injection at bedtime Insulin Aspart U-100 (Novolog Flexpen U-100 Insulin) 100 unit/mL (3 mL) insulin pen Active 0 sliding scale dose SUBCUT Before meals and at bedtime September 23, 2023 1:00am Start: 09-23-2023 inject 1 dose by sub [...] U-100) 100 unit/mL (3 mL) Insulin Pen (9 sources) Start: 02-26-2021 Insulin Deglud ec (Tresiba Flextouch U-100) 100 unit/mL (3 mL) Insulin Pen Active 70 UNIT SUBCUT Every morning February 26, 2021 12:00am PER PT DOSGAE REPORT Start: 02-26-2021 Insulin [...] Active 1000 MG PO Twice daily April 20, 2019 12:00am Comment on above: Take 1,000 mg by twyla th. morphine sulfate 15 mg oral tablet (9 sources) Opioid Agonist take 1 tablet by mouth every four hours Morphine Sulfate 15 MG 1 tablet as needed Orally every 4 hrs Active naproxen sodium 220 mg oral capsule (7 sources) Nonsteroidal Anti-inflammatory Drug Start: 10-23-2023 take 2 capsules by mouth every twelve hours Naproxen Sodium (Aleve) 220 mg Capsule Active 440 MG PO Q12H October 23, 2023 1:00am omeprazole 40 mg delayed release oral capsule (20 sources) Proton Pump Inhibitor Start: 09-23-2023 take 40 mg by mouth once daily in the morning Omeprazole Active 40 MG PO Every morning September 23, 2023 1:00am Completed/Discontinued Medications Medication Drug Class(es) Dates Sig (Normalized) Sig (Original) acetaminophen 325 mg / oxyCODONE hydrochloride 5 mg oral tablet (10 sources) Opioid Agonist Start: 07-29-2023 End: 09-23-2023 take 1 tablet by mouth every six hours Oxycodone-Acetamin ophen Discontinued 1 TAB PO Q6H 12 July 29, 2023 September 23, 2023 12:37pm ARIPiprazole 15 mg oral tablet (16 sources) Atypical Antipsychotic Start: 04-20-2019 End: 02-26-2021 take 1 tablet by mouth once daily Aripiprazole (Abilify) 15 mg Tablet Discontinued 15 MG PO Daily April 20, 2019 12:00am February 26, 2021 5:36pm buprenorphine 0.15 mg buccal film (16 sources) Partial Opioid Agonist Start: 04-20-2019 End: 02-26-2021 Buprenorphine Hcl (Belbuca) 150 mcg Film Discontinued 150 MCG BUCCAL Q12H April 20, 2019 12:00am February 26, 2021 5:37pm diazePAM 5 mg oral tablet (11 sources) Benzodiazepine Start: 07-29-2023 End: 09-23-2023 take 5 mg by mouth three times daily Diazepam Discontinued 5 MG PO Three times daily 12 July 29, 2023 12:00am September 23, 2023 12:41pm ibuprofen 400 mg oral tablet (16 sources) Nonsteroidal Anti-inflammatory Drug Start: 04-20-2019 End: 09-23-2023 take 400 mg by mouth every six hours Ibuprofen Discontinued 400 MG PO Q6H April 20, 2019 12:00am September 23, 2023 12:37pm insulin isophane, human 100 unt/ml injectable suspension (16 sources) Start: 04-20-2019 End: 02-26-2021 Insulin Nph Isoph U-100 Human (Novolin N Nph U-100 Insulin) 100 unit/mL Suspension Discontinued 0 .ROUTE .COMPLEX April 20, 2019 12:00am February 26, 2021 5:38pm 65 units in pm and 40 units in am insulin lispro (HUMALOG KWIKPEN) 100 unit/mL (1 source) Start: 01-24-2020 insulin lispro (HUMALOG KWIKPEN) 100 unit/mL Inject subcutaneously. 0 01/24/2020 Active Comment on above: Inject subcutaneousl y. insulin, regular, human 100 unt/ml injectable solution (16 sources) Insulin Start: 04-20-2019 End: 09-23-2023 Insulin Regular Human (Novolin R Regular U-100 Insuln) 100 unit/mL Solution Discontinued 0 .ROUTE .COMPLEX April 20, 2019 12:00am September 23, 2023 12:42pm 5 units in am 15 UNITS AT NOON 30 units in pm PER PT DOSAGE REPORT perphenazine 4 mg oral tablet (16 sources) Phenothiazine Start: 02-26-2021 End: 05-22-2021 take 4 mg by mouth twice daily Perphenazine Discontinued 4 MG PO Twice daily February 26, 2021 12:00am May 22, 2021 5:19pm tamsulosin hydrochloride 0.4 mg oral capsule (6 sources) alpha-Adrenergic Evi Start: 11-03-2023 End: 01-12-2024 take 1 capsule by mouth once daily Tamsulosin (Flomax) 0.4 mg Capsule Discontinued 0.4 MG PO Daily November 03, 2023 1:00am January 12, 2024 11:07am Problems Active Problems Problem Classification Problem Date Documented Date Episodic/Chronic Abdominal hernia (2 sources) Ventral hernia without obstruction or gangrene; Translations: [Unilateral inguinal hernia, without obstruction or gangrene, not specified as recurrent] Onset: 10-02-2023 Episodic Alcohol-related disorders (2 sources) History of alcohol abuse; Translations: [Alcohol abuse, in remission] Onset: 03-26-2023 Chronic Anxiety disorders (1 source) Anxiety; Translations: [Anxiety disorder, unspecified] Onset: 02-28-2023 11-10-2023 Chronic Cardiac dysrhythmias (16 sources) Palpitations; Translations: [Palpitations] 02-26-2021 Episodic Diabetes [...] pulmonary nodule] Episodic Other lower respiratory disease (16 sources) Solitary nodule of lung; Translations: [Solitary pulmonary nodule] 05-22-2021 Episodic Other nervous system disorders (6 sources) Chronic pain; Translations: [Other chronic pain] Chronic Other nervous system disorders (1 source) Spinal cord disease; Translations: [Disease of spinal cord, unspecified] Chronic Other nervous system disorders (4 sources) Disease of spinal cord, unspecified; Translations: [Disease of spinal cord, unspecified (CMS/[facility])] Onset: 11-11-2023 Chronic Other nervous system disorders (1 source) Cervical myelopathy; Translations: [Disease of spinal cord, unspecified] 11-11-2023 Chronic Other nervous system disorders (6 sources) Acute postoperative pain; Translations: [Other acute [...] sources) Long-term current use of insulin; 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] Episodic Other connective [...] 02-28-2023 11-10-2023 Episodic Other lower respiratory disease (4 sources) Solitary pulmonary nodule; Translations: [Lung nodule [...] Facility Amphetamine Screen Ql (U)Ord ered By: Giuseppe Desuoza on 01-19-2024 Amphetamines Ql (U) Negative Negative [facility] Barbiturates [Presence] in U rine by Screen methodOrdered By: Giuseppe Desouza on 01-19-2024 Barbiturates Screen Ql (U) Negative Negative [facility] Benzodiazepines Screen Ql (U )Ordered By: Giuseppe Desouza on 01-19-2024 Benzodiazepines Ql (U) Negative Negative [facility] Benzoylecgonine [Presence] i n Urine by Screen methodOrdered By: Giuseppe Desouza on 01-19-2024 Benzoylecgonine Screen Ql (U) Negative Negative [facility] Cannabinoids [Presence] in U rine by Screen methodOrdered By: Giuseppe Desouza on 01-19-2024 Cannabinoids Screen Ql (U) Positive Negative [facility] Comment on above: These are unconfirme d results and should not be used for legal purposes. Drug Cut-Off Concentration: AMPH 1000 ng/mL ZE 200 ng/mL DUANE 200 ng/mL COCM 300 ng/mL OP 300 ng/mL PCP 25 ng/mL THC 20 ng/mL Drug Screen,Urineon 01-19-20 24 Amphetamine Screen,Urine Negative Normal Negative [facility] Comment on above: Order Comment: Comme nt stat when patient gets to prep Performed By: #### T SH3, [id number] #### [place] [address] [place] #### METH #### [facility] , Barbiturate Screen,Urine Negative Normal Negative [facility] Comment on above: Order Comment: Comme nt stat when patient gets to prep Performed By: #### T SH3, [id number] #### [facility] [address] [place] [address] [place] #### METH #### [facility] , Benzodiazepines Screen,Urine Negative Normal Negative [facility] Comment on above: Order Comment: Comme nt stat when patient gets to prep Performed By: #### T SH3, [id number] #### [facility] [address] [place] [address] [place] #### METH #### [facility] , Cannabinoid Screen,Urine Positive High Negative [facility] Comment on above: Order Comment: Comme nt stat when patient gets to prep Result Comment: Thes e are unconfirmed results and should not be used for legal purposes. Drug Cut-Off Concentration: AMPH 1000 ng/mL ZE 200 ng/mL DUANE 200 ng/mL COCM 300 ng/mL OP 300 ng/mL PCP 25 ng/mL THC 20 ng/mL PERFORMED BY: [place] [id number] PATHOLOGIST FILLING AND PACKING SUPERVISOR CLEVE CANDELARIA M.D. Performed By: #### T SH3, [id number] #### [facility] [address] [place] [address] [place] #### METH #### [facility] , Cocaine Screen,Urine Negative Normal Negative [facility] Comment on above: Order Comment: Comme nt stat when patient gets to prep Performed By: #### T SH3, [id number] #### [facility] [address] [place] [address] [place] #### METH #### [facility] , Opiate Screen,Urine Negative Normal Negative [facility] Comment on above: Order Comment: Comme nt stat when patient gets to prep Performed By: #### T SH3, [id number] #### [facility] [address] [place] [address] [place] #### METH #### [facility] , Phencyclidine Screen,Urine Negative Normal Negative [facility] Comment on above: Order Comment: Comme nt stat when patient gets to prep Performed By: #### T SH3, [id number] #### [facility] [address] [place] [address] [place] #### METH #### [facility] , Glucose Glucometer (BldC) [M ass/Vol]Ordered By: Yogesh Becker on 01-19-2024 Glucose [Mass/Vol] 160 mg/dL [facility] Comment on above: Random Glucose Refer ence Range is dependent on time and content of last meal. Glucose of more than 200 mg/dL in a nonstressed, ambulatory subject supports the diagnosis of Diabetes Mellitus. Glucose Poct Glucometerson 0 01-19-2024 Glucose [Mass/Vol] 160 mg/dL Normal [facility] Comment on above: Result Comment: [place] om Glucose Reference Range is dependent on time and content of last meal. Glucose of more than 200 mg/dL in a nonstressed, ambulatory subject supports the diagnosis of Diabetes Mellitus. PERFORMED BY: [place] [address] PATHOLOGIST FILLING AND PACKING SUPERVISOR CLEVE CANDELARIA M.D. Performed By: #### T SH3, [id number] #### [address] #### METH #### [facility] , Commemt1 Glu2: Cleaned Meter Normal [facility] Comment on above: Result Comment: PERF ORMED BY: [place] [address] PATHOLOGIST FILLING AND PACKING SUPERVISOR CLEVE CANDELARIA M.D. Performed By: #### G LULS #### Point of Care testing , Glucose [Mass/Vol] 162 mg/dL Normal [facility] Comment on above: Result Comment: [place] om Glucose Reference Range is dependent on time and content of last meal. Glucose of more than 200 mg/dL in a nonstressed, ambulatory subject supports the diagnosis of Diabetes Mellitus. Performed By: #### G LULS #### Point of Care testing , Commemt1 Glu2: Cleaned Meter [facility] Comment on above: Result Comment: PERF ORMED BY: [place] [address] PATHOLOGIST FILLING AND PACKING SUPERVISOR CLEVE CANDELARIA M.D. Performed By: #### T SH3, [id number] #### [address] #### METH #### [facility] , Glucose [Mass/Vol] 250 mg/dL Normal [facility] Comment on above: Result Comment: [place] om Glucose Reference Range is dependent on time and content of last meal. Glucose of more than 200 mg/dL in a nonstressed, ambulatory subject supports the diagnosis of Diabetes Mellitus. Performed By: #### T SH3, [id number] #### [address] #### METH #### [facility] , No Panel InformationOrdered By: Yogesh Becker on 01-19-2024 Bedside Glucose Comment Glu2: cleaned meter [facility] Opiates [Presence] in Urine by Screen methodOrdered By: Giuseppe Desouza on 01-19-2024 Opiates Screen Ql (U) Negative Negative [facility] Phencyclidine Screen Ql (U)O rdered By: Giuseppe Desouza on 01-19-2024 Phencyclidine Ql (U) Negative Negative [facility] Basic Metabolic Panelon 12-25 Anion gap [Moles/Vol] 9.2 mmol/L Normal 6.0-15.0 [facility] Comment on above: Performed By: #### C BC, BMP #### [facility] [address] [place] [address] [place] Calcium [Mass/Vol] 9.3 mg/dL Normal 8.6-10.3 [facility] Comment on above: Result Comment: PERF ORMED BY: [place] [address] PATHOLOGIST FILLING AND PACKING SUPERVISOR CLEVE CANDELARIA M.D. Performed By: #### C BC, BMP #### [facility] [address] [place] [address] [place] Chloride [Moles/Vol] 98 mmol/L Normal 98-107 [facility] Comment on above: Performed By: #### C BC, BMP #### [facility] [address] [place] [address] [place] CO2 [Moles/Vol] 33.8 mmol/L High 21.0-31.0 [facility] Comment on above: Performed By: #### C BC, BMP #### [facility] [address] [place] [address] [place] Creatinine [Mass/Vol] 0.82 mg/dL Normal 0.70-1.30 [facility] Comment on above: Performed By: #### C BC, BMP #### [facility] [address] [place] [address] [place] GFR/1.73 sq M.predicted MDRD (S/P/Bld) [Vol rate/Area] mL/min/{1.73_m2} Normal [facility] Comment on above: Performed By: #### C BC, BMP #### [facility] [address] Glucose [Mass/Vol] 281 mg/dL High 70-100 [facility] Comment on above: Result Comment: [place] Glucose Reference Range is dependent on time and content of last meal. Glucose of more than 200 mg/dL in a nonstressed, ambulatory subject supports the diagnosis of Diabetes Mellitus. ADA recommended reference range Performed By: #### C BC, BMP #### [facility] [address] Potassium [Moles/Vol] 5.0 mmol/L Normal 3.5-5.1 [facility] Comment on above: Performed By: #### C BC, BMP #### [facility] [address] Sodium [Moles/Vol] 136 mmol/L Normal 136-145 [facility] Comment on above: Performed By: #### C BC, BMP #### [facility] [address] Urea nitrogen [Mass/Vol] 24 mg/dL Normal 7-25 [facility] Comment on above: Performed By: #### C BC, BMP #### [facility] [address] Basophils Auto (Bld) [#/Vol] Ordered By: Yogesh Becker on 01-12-2024 Basophils (Bld) [#/Vol] 0.1 10*3/uL 0.0-0.2 [facility] Basophils/100 WBC Auto (Bld) Ordered By: Yogesh Becker on 01-12-2024 Basophils/100 WBC (Bld) 0.9 % . [facility] Calcium [Mass/volume] in Ser um or PlasmaOrdered By: Yogesh Becker on 01-12-2024 Calcium [Mass/Vol] 9.3 mg/dL 8.6-10.3 [facility] Carbon dioxide, total [Moles /volume] in Serum or PlasmaOrdered By: Yogesh Becker on 01-12-2024 CO2 [Moles/Vol] 33.8 mmol/L 21.0-31.0 [facility] Chloride [Moles/volume] in S raffi or PlasmaOrdered By: Yogesh Becker on 01-12-2024 Chloride [Moles/Vol] 98 mmol/L 98-107 [facility] Complete Blood Count Auto Di ffon 01-12-2024 Basophils (Bld) [#/Vol] 0.1 10*3/uL Normal 0.0-0.2 [facility] Comment on above: Result Comment: PERF ORMED BY: [place] [address] PATHOLOGIST FILLING AND PACKING SUPERVISOR CLEVE CANDELARIA M.D. Performed By: #### C BC, BMP #### [address] Basophils/100 WBC (Bld) 0.9 % Normal . [facility] Comment on above: Performed By: #### C BC, BMP #### [address] Eosinophils (Bld) [#/Vol] 0.3 10*3/uL Normal 0.0-0.45 [facility] Comment on above: Performed By: #### C BC, BMP #### [address] Eosinophils/100 WBC (Bld) 3.9 % Normal . [facility] Comment on above: Performed By: #### C BC, BMP #### [address] Erythrocyte distribution width (RBC) [Ratio] 14.2 % Normal 12.0-14.8 [facility] Comment on above: Performed By: #### C BC, BMP #### [address] Hematocrit (Bld) [Volume fraction] 50.5 % High 38.8-50.0 [facility] Comment on above: Performed By: #### C BC, BMP #### [place] [id number] [place] Hemoglobin (Bld) [Mass/Vol] 16.7 g/dL Normal 13.0-17.0 [facility] Comment on above: Performed By: #### C BC, BMP #### [address] Lymphocytes (Bld) [#/Vol] 1.4 10*3/uL Normal 1.00-4.8 [facility] Comment on above: Performed By: #### C BC, BMP #### [address] Lymphocytes/100 WBC (Bld) 16.7 % Normal . [facility] Comment on above: Performed By: #### C BC, BMP #### [address] MCH (RBC) [Entitic mass] 32.1 pg Normal 27.5-35.2 [facility] Comment on above: Performed By: #### C BC, BMP #### [address] MCV (RBC) [Entitic vol] 96.9 fL Normal 83.5-101 [facility] Comment on above: Performed By: #### C BC, BMP #### [address] Mean Corpuscular HGB Conc 33.1 g/dL Normal 32.5-35.6 [facility] Comment on above: Performed By: #### C BC, BMP #### [address] Monocytes (Bld) [#/Vol] 0.4 10*3/uL Normal 0.0-0.8 [facility] Comment on above: Performed By: #### C BC, BMP #### [place] [address] [place] Monocytes/100 WBC (Bld) 5.2 % Normal . [facility] Comment on above: Performed By: #### C BC, BMP #### [place] [address] [place] Neutrophils (Bld) [#/Vol] 6.2 10*3/uL Normal 1.8-7.7 [facility] Comment on above: Performed By: #### C AMAIRANI, BMP #### [facility] [address] Neutrophils/100 WBC (Bld) 73.3 % Normal . [facility] Comment on above: Performed By: #### C AMAIRANI, BMP #### [facility] [address] NRBC% 0.1 /100{WBC} Normal 0-0.5 [facility] Comment on above: Performed By: #### C AMAIRANI, BMP #### [facility] [address] Platelet mean volume (Bld) [Entitic vol] 8.6 fL Normal 6.6-10.1 [facility] Comment on above: Performed By: #### C AMAIRANI, BMP #### [facility] [address] Platelets (Bld) [#/Vol] 186 10*3/uL Normal 150-450 [facility] Comment on above: Performed By: #### C AMAIRANI, BMP #### [facility] [address] RBC (Bld) [#/Vol] 5.21 10*6/uL Normal 3.90-5.60 [facility] Comment on above: Performed By: #### C AMAIRANI, BMP #### [address] WBC (Bld) [#/Vol] 8.5 10*3/uL Normal 4.1-10.5 [facility] Comment on above: Performed By: #### Kristi BALES, BMP #### [address] Creatinine [Mass/volume] in Serum or PlasmaOrdered By: Yogesh Becker on 01-12-2024 Creatinine [Mass/Vol] 0.82 mg/dL 0.70-1.30 [facility] Eosinophils Auto (Bld) [#/Vo l]Ordered By: Yogesh Becker on 01-12-2024 Eosinophils (Bld) [#/Vol] 0.3 10*3/uL 0.0-0.45 [facility] Eosinophils/100 WBC Auto (Bl d)Ordered By: Yogesh Becker on 01-12-2024 Eosinophils/100 WBC (Bld) 3.9 % . [facility] Erythrocyte distribution wid th Auto (RBC) [Ratio]Ordered By: Yogesh Becker on 01-12-2024 Erythrocyte distribution width (RBC) [Ratio] 14.2 % 12.0-14.8 [facility] Glucose [Mass/volume] in Ser um or PlasmaOrdered By: Yogesh Becker on 01-12-2024 Glucose [Mass/Vol] 281 mg/dL 70-100 [facility] Comment on above: ADA recommended refe rence rangeRandom Glucose Reference Range is dependent on time and content of last meal. Glucose of more than 200 mg/dL in a nonstressed, ambulatory subject supports the diagnosis of Diabetes Mellitus. Hematocrit Auto (Bld) [Volum e fraction]Ordered By: Yogesh Becker on 01-12-2024 Hematocrit (Bld) [Volume fraction] 50.5 % 38.8-50.0 [facility] Hemoglobin [Mass/volume] in BloodOrdered By: Yogesh Becker on 01-12-2024 Hemoglobin (Bld) [Mass/Vol] 16.7 g/dL 13.0-17.0 [facility] Leukocytes [#/volume] correc charanjit for nucleated erythrocytes in Blood by Automated counOrdered By: Yogesh Becker on 01-12-2024 WBC corrected for nucl RBC Auto (Bld) [#/Vol] 8.5 10*3/uL 4.1-10.5 [facility] Lymphocytes Auto (Bld) [#/Vo l]Ordered By: Yogesh Becker on 01-12-2024 Lymphocytes (Bld) [#/Vol] 1.4 10*3/uL 1.00-4.8 [facility] Lymphocytes/100 WBC Auto (Bl d)Ordered By: Yogesh Becker on 03-18-2024 Lymphocytes/100 WBC (Bld) 16.7 % . [facility] MCH Auto (RBC) [Entitic mass ]Ordered By: Yogesh Becker on 01-12-2024 MCH (RBC) [Entitic mass] 32.1 pg 27.5-35.2 [facility] MCHC Auto (RBC) [Mass/Vol]Or dered By: Yogesh Becker on 01-12-2024 MCHC (RBC) [Mass/Vol] 33.1 g/dL 32.5-35.6 [facility] MCV Auto (RBC) [Entitic vol] Ordered By: Yogesh Becker on 01-12-2024 MCV (RBC) [Entitic vol] 96.9 fL 83.5-101 [facility] Monocytes Auto (Bld) [#/Vol] Ordered By: Yogesh Becker on 01-12-2024 Monocytes (Bld) [#/Vol] 0.4 10*3/uL 0.0-0.8 [facility] Monocytes/100 WBC Auto (Bld) Ordered By: Yogesh Becker on 01-12-2024 Monocytes/100 WBC (Bld) 5.2 % . [facility] Neutrophils Auto (Bld) [#/Vo l]Ordered By: Ygoesh Becker on 01-12-2024 Neutrophils (Bld) [#/Vol] 6.2 10*3/uL 1.8-7.7 [facility] Neutrophils/100 WBC Auto (Bl d)Ordered By: Yogesh Becker on 01-12-2024 Neutrophils/100 WBC (Bld) 73.3 % . [facility] No Panel InformationOrdered By: Yogesh Becker on 01-12-2024 Estimated GFR (CKD-EPI) > 60.0 mL/Min [facility] Creatinine Clearance (Chem N/A [facility] Nucleated erythrocytes [Pres ence] in Blood by Automated countOrdered By: Yogesh Becker on 01-12-2024 Nucleated RBC Auto Ql (Bld) 0.1 /100{WBC} 0-0.5 [facility] Platelet mean volume Auto (B ld) [Entitic vol]Ordered By: Yogesh Becker on 01-12-2024 Platelet mean volume (Bld) [Entitic vol] 8.6 fL 6.6-10.1 [facility] Platelets Auto (Bld) [#/Vol] Ordered By: Yogesh Becker on 01-12-2024 Platelets (Bld) [#/Vol] 186 10*3/uL 150-450 [facility] Potassium [Moles/volume] in Serum or PlasmaOrdered By: Yogesh Becker on 01-12-2024 Potassium [Moles/Vol] 5.0 mmol/L 3.5-5.1 [facility] RBC Auto (Bld) [#/Vol]Ordere d By: Yogesh Becker on 01-12-2024 RBC (Bld) [#/Vol] 5.21 10*6/uL 3.90-5.60 [facility] Serum or plasma anion gap de terminationOrdered By: Yogesh Becker on 01-12-2024 Anion gap [Moles/Vol] 9.2 mmol/L 6.0-15.0 [facility] Sodium [Moles/volume] in Ser um or PlasmaOrdered By: Yogesh Becker on 01-12-2024 Sodium [Moles/Vol] 136 mmol/L 136-145 [facility] Urea nitrogen [Mass/volume] in Serum or PlasmaOrdered By: Yogesh Becker on 01-12-2024 Urea nitrogen [Mass/Vol] 24 mg/dL 7-25 [facility] WBC Auto (Bld) [#/Vol]Ordere d By: Yogesh Becker on 01-12-2024 WBC (Bld) [#/Vol] 8.5 10*3/uL 4.1-10.5 [facility] MR cervical spine wo conon 0 12-16-2023 MR cervical spine wo con [facility] [place] [address] MRI Report Signed Patient: Koko Meier MR#: [id number] : 1960 Acct:[id number] Age/Sex: 63 / M ADM Date: 12/16/23 [facility] CLI Attending Dr: Maryann Rubalcava MD Copies to: Maryann Rubalcava MD Ordering Provider: Maryann Rubalcava MD Date of Service: 12/16/23 MR/MR cervical spine wo con: G95.9 MR cervical spine wo con 12/16/2023 9:40 AM SIGNS AND SYMPTOMS: Bilateral hand numbness with chronic neck pain and stiffness PROTOCOL: Multiplanar multisequence MR images of the cervical spine were obtained without IV contrast COMPARISON: 08/11/2023 FINDINGS: There is preservation of vertebral body heights. There is moderate to severe disc height loss at C3-C4 and C4-C5. There is anterior and intervertebral fusion at C5-C6 and C6-7. There is moderate disc height loss at C7-T1. There is 3 mm of anterolisthesis of C7 upon T1. The bones are otherwise in anatomic alignment. The marrow signal is within normal limits. The cord is normal in signal. No epidural or paraspinous fluid collection is appreciated. The visualized paraspinous soft tissues are within normal limits. The prevertebral soft tissues are within normal limits. There is soft tissue fullness to the right of midline along the vallecula base of the tongue. Direct visualization is recommended as malignancy is not excluded. At C2-C3: There is a normal disc, central canal, and neural foramen. At C3-C4: There is a broad-based disc bulge with facet and operative joint change. There is severe right and moderate left neural foraminal narrowing with moderate spinal canal stenosis. At C4-C5: There is a broad-based disc bulge with facet and uncovertebral joint degenerative change. There is moderate to severe bilateral neural foraminal narrowing right greater than left. There is moderate spinal canal stenosis. At C5-C6: There is intervertebral fusion with facet hypertrophy. There is moderate bilateral neural foraminal narrowing. No spinal canal narrowing. At C6-C7: There is intervertebral fusion. No spinal canal or neural foraminal narrowing. At C7-T1: There is 3 mm of anterolisthesis of C7 upon T1 secondary to facet hypertrophy. There is a broad-based disc bulge without joint spurring. There is severe right and moderate left neural foraminal narrowing with mild spinal canal narrowing. MR/MR cervical spine wo con IMPRESSION: At C3-C4: There is a broad-based disc bulge with facet and operative joint change. There is severe right and moderate left neural foraminal narrowing with moderate spinal canal stenosis. At C4-C5: There is a broad-based disc bulge with facet and uncovertebral joint degenerative change. There is moderate to severe bilateral neural foraminal narrowing right greater than left. There is moderate spinal canal stenosis. At C7-T1: There is 3 mm of anterolisthesis of C7 upon T1 secondary to facet hypertrophy. There is a broad-based disc bulge without joint spurring. There is severe right and moderate left neural foraminal narrowing with mild spinal canal narrowing. There is no cord compression or cord signal abnormality. There is soft tissue fullness to the right of midline along the vallecula base of the tongue. Direct visualization is recommended as malignancy is not excluded. Impression dictated by: Bruce Ortiz M.D.12/16/2023 3:15 PM Dictation Location: [place] [address] Transcribed By: [facility] 12/16/23 1515 Dictated By: Bruce Ortiz II, MD 12/16/23 1500 Signed By: 12/16/23 15[address] [facility] [address] head/brain wo conon 11-25 CT head/brain wo [facility] [place] [address] CT Scan Report Signed Patient: Koko Meier MR#: [id number] : 1960 Acct:[id number] Age/Sex: 62 / M ADM Date: 11/25/23 Loc: CT Room: Type: [facility] Attending Dr: Oliver Kerr MD Copies [...] Koko Hernandez M.D.11/25/2023 12:02 PM Dictation Location: [place] [address] Transcribed By: [facility] 11/25/23 1202 Dictated By: Koko Hernandez DO 11/25/23 1201 Signed By: 11/25/23 1202 Normal [facility] Cholesterol [Mass/volume] in Serum or PlasmaOrdered By: Josh Melvin on 11-24-2023 Cholesterol [Mass/Vol] 168 mg/dL 140-200 [facility] Comment on above: Chol less than 200 m g/dl low riskChol 201-239 mg/dl borderline riskChol 240 mg/dl and greater high risk Cholesterol in LDL Calc [Mas s/Vol]Ordered By: Josh Melvin on 11-24-2023 Cholesterol in LDL [Mass/Vol] 70 mg/dL 0-100 [facility] Comment on above: LDL ATP III CLASSIFI CATIONLDL less than 100 mg/dL OptimalLDL 100-129 mg/dL Near or above optimalLDL 130-159 mg/dL Borderline highLDL 160-189 mg/dL HighLDL greater than 189 mg/dL Very high Cholesterol in VLDL Calc [Ma ss/Vol]Ordered By: Josh Melvin on 11-24-2023 Cholesterol in VLDL [Mass/Vol] 43 mg/dL [facility] Folate [Mass/volume] in Seru m or PlasmaOrdered By: Oliver Kerr on 11-24-2023 Folate [Mass/Vol] 14.9 ng/mL >5.9 [facility] Comment on above: Folate reference ran ge: >5.9 ng/mlThe WHO technical consultation on folate and vitamin [id number] has determined that folate concentrations lessthan 4 ng/ml are considered deficient. Lipid Panelon 11-24-2023 Cholesterol [Mass/Vol] 168 mg/dL Normal 140-200 [facility] Comment on above: Result Comment: Chol less than 200 mg/dl low risk Chol 201-239 mg/dl borderline risk Chol 240 mg/dl and greater high risk Performed By: #### C BC, BMP #### [facility] [address] Cholesterol in HDL [Mass/Vol] 54 mg/dL Normal 23-92 [facility] Comment on above: Result Comment: HDL CHOL ATP-III CLASSIFICATION Cardiovascular Risk HDL > or equal to 60 mg/dL LOW HDL < 40 mg/dL HIGH Performed By: #### C BC, BMP #### [address] Cholesterol.total/Chol esterol in HDL [Mass ratio] 3.1 {ratio} Normal <5.0 [facility] Comment on above: Result Comment: PERF ORMED BY: [place] [address] PATHOLOGIST FILLING AND PACKING SUPERVISOR CLEVE CANDELARIA M.D. Performed By: #### C BC, BMP #### [address] LDL Cholesterol,Calculated 70 mg/dL Normal 0-100 [facility] Comment on above: Result Comment: LDL ATP III CLASSIFICATION LDL less than 100 mg/dL Optimal LDL 100-129 mg/dL Near or above optimal LDL 130-159 mg/dL Borderline high LDL 160-189 mg/dL High LDL greater than 189 mg/dL Very high Performed By: #### C BC, BMP #### [address] Triglyceride w/Reflex 218 mg/dL High 0-149 [facility] Comment on above: Result Comment: TRIG ATP III CLASSIFICATION TRIG less than 150 mg/dL Normal TRIG 150-199 mg/dL Borderline high TRIG 200-500 mg/dL High TRIG greater than 500 mg/dL Very high Standard traceable to the Center for Disease Conrtrol and Prevention (CDC) test method. Performed By: #### C BC, BMP #### [facility] [address] VLDL CHOLESTEROL 43 mg/dL Normal [facility] Comment on above: Performed By: #### C BC, BMP #### [place] [id number] [facility] Methylmalonic Acidon 024 Methylmalonic Acid 169 Normal 0-378 [facility] Comment on above: Result Comment: This test was developed and its performance characteristics determined by [facility]. It has not been cleared or approved by the Food and Drug Administration. Performed at: [facility] [address] [id number] Docent Coordinator: Caroline Romo MD, Phone: [phone] PERFORMED BY: [place] [address] PATHOLOGIST FILLING AND PACKING SUPERVISOR CLEVE CANDELARIA M.D. Performed By: #### T SH3, [id number] #### [address] #### METH #### [facility] , PSA Screen (Yearly Only)on 0 11-24-2023 PSA Screen (Yearly Only) 1.380 ng/mL Normal 0.000-4.00 0 [facility] Comment on above: Order Comment: Is pa tient <50 yrs? Medicare does not pay <50.: Y What is the date of the last PSA Screen?: 01/31/22 Is Medicare the insurance?: U Did you verify eligibility (Dx Time) check TestViewGp: YES TO ALL Result Comment: Seri al tumor marker results determined by assays using different manufacturers or methods may not be comparable. [facility] top lift nailer and method: [employer] DXI, CHEMILUMINESCENT IMMUNOASSAY. PERFORMED BY: [place] [address] PATHOLOGIST FILLING AND PACKING SUPERVISOR CLEVE CANDELARIA M.D. Performed By: #### C BC, BMP #### [facility] [address] [place] [address] Prostate specific Ag [Mass/v olume] in Serum or PlasmaOrdered By: Josh Melvin on 11-24-2023 Prostate specific Ag [Mass/Vol] 1.380 ng/mL 0.000-4.00 0 [facility] Comment on above: Serial tumor marker results determined by assays using different manufacturers or methods may not be comparable.[facility] top lift nailer and method:[employer] DXI, CHEMILUMINESCENT IMMUNOASSAY. Serum or plasma high density lipoprotein (HDL) cholesterol measurementOrdered By: Josh Melvin on 11-24-2023 Cholesterol in HDL [Mass/Vol] 54 mg/dL 23-92 [facility] Comment on above: HDL CHOL ATP-III CLA SSIFICATION Cardiovascular RiskHDL > or equal to 60 mg/dL LOWHDL < 40 mg/dL HIGH Serum or plasma methylmalona te measurement (moles/volume)Ordered By: Oliver Kerr on 11-24-2023 Methylmalonate [Moles/Vol] 169 nmol/L 0-378 [facility] Comment on above: This test was develo ped and its performance characteristicsdetermined by [employer]. It has not been cleared orapproved by the Food and Drug Administration.Performed at: [address] [id number] Director: Caroline Romo MD, Phone: [phone] Serum or plasma total choles terol/high density lipoprotein (HDL) cholesterol mass ratOrdered By: Josh Melvin on 11-24-2023 Cholesterol.total/Chol esterol in HDL [Mass ratio] 3.1 {ratio} <5.0 [facility] Thyroid Stimulating Hormoneo n 11-24-2023 TSH Qn 2.24 m[IU]/L Normal 0.45-5.33 [facility] Comment on above: Result Comment: PERF ORMED BY: [place] [address] PATHOLOGIST FILLING AND PACKING SUPERVISOR CLEVE CANDELARIA M.D. Performed By: #### T SH3, [id number] #### [address] #### METH #### [facility] , Thyrotropin [Units/volume] i n Serum or PlasmaOrdered By: Oliver Kerr on 11-24-2023 TSH Qn 2.24 m[IU]/L 0.45-5.33 [facility] Triglyceride [Mass/volume] i n Serum or PlasmaOrdered By: Josh Melvin on 11-24-2023 Triglyceride [Mass/Vol] 218 mg/dL 0-149 [facility] Comment on above: TRIG ATP III CLASSIF ICATIONTRIG less than 150 mg/dL NormalTRIG 150-199 mg/dL Borderline highTRIG 200-500 mg/dL High TRIG greater than 500 mg/dL Very highStandard traceable to the Center for Disease Conrtrol and Prevention (CDC) test method. Vit. B12/Folate Profileon Cobalamin (Vitamin B12) [Mass/Vol] 365 pg/mL Normal 180-914 [facility] Comment on above: Performed By: #### T SH3, [id number] #### [facility] [address] [place] [address] [place] #### METH #### [facility] , Folate 14.9 ng/mL Normal >5.9 [facility] Comment on above: Result Comment: Lin te reference range: >5.9 ng/ml The WHO technical consultation on folate and vitamin b12 deficiencies has determined that folate concentrations less than 4 ng/ml are considered deficient. Performed By: #### T SH3, [id number] #### [facility] [address] [place] [address] [place] #### METH #### [facility] , Vitamin B12 ser/plasOrdered By: Oliver Kerr on 11-24-2023 Cobalamin (Vitamin B12) [Mass/Vol] 365 pg/mL 180-914 [facility] Amphetamine Screen Ql (U)Ord ered By: Kenroy Domínguez on 11-03-2023 Amphetamines Ql (U) Negative Negative [facility] Barbiturates [Presence] in U rine by Screen methodOrdered By: Kenroy Domínguez on 11-03-2023 Barbiturates Screen Ql (U) Negative Negative [facility] Benzodiazepines Screen Ql (U )Ordered By: Kenroy Domínguez on 11-03-2023 Benzodiazepines Ql (U) Negative Negative [facility] Benzoylecgonine [Presence] i n Urine by Screen methodOrdered By: Kenroy Domínguez on 11-03-2023 Benzoylecgonine Screen Ql (U) Negative Negative [facility] Cannabinoids [Presence] in U rine by Screen methodOrdered By: Kenroy Domínguez on 11-03-2023 Cannabinoids Screen Ql (U) Positive Negative [facility] Comment on above: These are unconfirme d results and should not be used for legal purposes. Drug Cut-Off Concentration: AMPH 1000 ng/mL ZE 200 ng/mL DUANE 200 ng/mL COCM 300 ng/mL OP 300 ng/mL PCP 25 ng/mL THC 20 ng/mL Drug Screen,Urineon 11-03-19 24 Amphetamine Screen,Urine Negative Normal Negative [facility] Comment on above: Performed By: #### C BC, BMP #### [address] Barbiturate Screen,Urine Negative Normal Negative [facility] Comment on above: Performed By: #### C BC, BMP #### [place] [address] [place] Benzodiazepines Screen,Urine Negative Normal Negative [facility] Comment on above: Performed By: #### C BC, BMP #### [address] Cannabinoid Screen,Urine Positive High Negative [facility] Comment on above: Result Comment: Thes e are unconfirmed results and should not be used for legal purposes. Drug Cut-Off Concentration: AMPH 1000 ng/mL ZE 200 ng/mL DUANE 200 ng/mL COCM 300 ng/mL OP 300 ng/mL PCP 25 ng/mL THC 20 ng/mL PERFORMED BY: [place] [address] PATHOLOGIST FILLING AND PACKING SUPERVISOR CLEEV CANDELARIA M.D. Performed By: #### C BC, BMP #### [place] [address] [place] Cocaine Screen,Urine Negative Normal Negative [facility] Comment on above: Performed By: #### C BC, BMP #### [place] [address] [place] Opiate Screen,Urine Negative Normal Negative [facility] Comment on above: Performed By: #### C BC, BMP #### [address] [place] [address] [place] Phencyclidine Screen,Urine Negative Normal Negative [facility] Comment on above: Performed By: #### C AMAIRANI, BMP #### [place] [address] [place] Glucose Glucometer (BldC) [M ass/Vol]Ordered By: Yogesh Becker on 11-03-2023 Glucose [Mass/Vol] 185 mg/dL [facility] Comment on above: Random Glucose Refer ence Range is dependent on time and content of last meal. Glucose of more than 200 mg/dL in a nonstressed, ambulatory subject supports the diagnosis of Diabetes Mellitus. Glucose Poct Glucometerson 0 11-03-2023 Glucose [Mass/Vol] 185 mg/dL Normal [facility] Comment on above: Result Comment: [place] Glucose Reference Range is dependent on time and content of last meal. Glucose of more than 200 mg/dL in a nonstressed, ambulatory subject supports the diagnosis of Diabetes Mellitus. PERFORMED BY: [place] [address] PATHOLOGIST FILLING AND PACKING SUPERVISOR CLEVE CANDELARIA M.D. Performed By: #### C AMAIRANI, BMP #### [address] Glucose [Mass/Vol] 180 mg/dL Normal [facility] Comment on above: Result Comment: [place] [facility] Glucose Reference Range is dependent on time and content of last meal. Glucose of more than 200 mg/dL in a nonstressed, ambulatory subject supports the diagnosis of Diabetes Mellitus. PERFORMED BY: [place] [address] PATHOLOGIST FILLING AND PACKING SUPERVISOR CLEVE CANDELARIA M.D. Performed By: #### G LULS #### Point of Care testing , Opiates [Presence] in Urine by Screen methodOrdered By: Kenroy Domínguez on 11-03-2023 Opiates Screen Ql (U) Negative Negative [facility] Phencyclidine Screen Ql (U)O rdered By: Kenroy Domínguez on 11-03-2023 Phencyclidine Ql (U) Negative Negative [facility] Basic Metabolic Panelon 12-2 Anion gap [Moles/Vol] 9.7 mmol/L Normal 6.0-15.0 [facility] Comment on above: Performed By: #### C BC, BMP #### [facility] [address] Calcium [Mass/Vol] 8.8 mg/dL Normal 8.6-10.3 [facility] Comment on above: Result Comment: PERF ORMED BY: [place] [address] PATHOLOGIST FILLING AND PACKING SUPERVISOR CLEVE CANDELARIA M.D. Performed By: #### C AMAIRANI, BMP #### [facility] [address] Chloride [Moles/Vol] 100 mmol/L Normal 98-107 [facility] Comment on above: Performed By: #### C AMAIRANI, BMP #### [facility] [address] [place] [address] [place] CO2 [Moles/Vol] 33.8 mmol/L High 21.0-31.0 [facility] Comment on above: Performed By: #### C AMAIRANI, BMP #### [facility] [address] Creatinine [Mass/Vol] 0.71 mg/dL Normal 0.70-1.30 [facility] Comment on above: Performed By: #### C AMAIRANI, BMP #### [facility] [address] [place] [address] [place] GFR/1.73 sq M.predicted MDRD (S/P/Bld) [Vol rate/Area] mL/min/{1.73_m2} Normal [facility] Comment on above: Performed By: #### C BC, BMP #### [facility] [address] [place] [address] [place] Glucose [Mass/Vol] 105 mg/dL High 70-100 [facility] Comment on above: Result Comment: [place] Glucose Reference Range is dependent on time and content of last meal. Glucose of more than 200 mg/dL in a nonstressed, ambulatory subject supports the diagnosis of Diabetes Mellitus. ADA recommended reference range Performed By: #### C BC, BMP #### [facility] [address] Potassium [Moles/Vol] 4.5 mmol/L Normal 3.5-5.1 [facility] Comment on above: Performed By: #### C BC, BMP #### [facility] [address] Sodium [Moles/Vol] 139 mmol/L Normal 136-145 [facility] Comment on above: Performed By: #### C BC, BMP #### [facility] [address] Urea nitrogen [Mass/Vol] 18 mg/dL Normal 7-25 [facility] Comment on above: Performed By: #### C BC, BMP #### [facility] [address] Basophils Auto (Bld) [#/Vol] Ordered By: Yogesh Becker on 10-23-2023 Basophils (Bld) [#/Vol] 0.0 10*3/uL 0.0-0.2 [facility] Basophils/100 WBC Auto (Bld) Ordered By: Yogesh Becker on 10-23-2023 Basophils/100 WBC (Bld) 0.8 % . [facility] Calcium [Mass/volume] in Ser um or PlasmaOrdered By: Yogesh Becker on 10-23-2023 Calcium [Mass/Vol] 8.8 mg/dL 8.6-10.3 [facility] Carbon dioxide, total [Moles /volume] in Serum or PlasmaOrdered By: Yogesh Becker on 10-23-2023 CO2 [Moles/Vol] 33.8 mmol/L 21.0-31.0 [facility] Chloride [Moles/volume] in S raffi or PlasmaOrdered By: Yogesh Becker on 10-23-2023 Chloride [Moles/Vol] 100 mmol/L 98-107 [facility] Complete Blood Count Auto Di ffon 10-23-2023 Basophils (Bld) [#/Vol] 0.0 10*3/uL Normal 0.0-0.2 [facility] Comment on above: Result Comment: PERF ORMED BY: [place] [address] PATHOLOGIST FILL[employer] AND P[employer]ING SUPERVISOR CLEVE CANDELARIA M.D. Performed By: #### C BC, BMP #### [facility] [address] [place] [address] [place] Basophils/100 WBC (Bld) 0.8 % Normal . [facility] Comment on above: Performed By: #### C BC, BMP #### [facility] [address] [place] [address] [place] Eosinophils (Bld) [#/Vol] 0.2 10*3/uL Normal 0.0-0.45 [facility] Comment on above: Performed By: #### C BC, BMP #### [address] Eosinophils/100 WBC (Bld) 3.6 % Normal . [facility] Comment on above: Performed By: #### C BC, BMP #### [place] [address] [place] Erythrocyte distribution width (RBC) [Ratio] 14.3 % Normal 12.0-14.8 [facility] Comment on above: Performed By: #### C BC, BMP #### [address] Hematocrit (Bld) [Volume fraction] 48.1 % Normal 38.8-50.0 [facility] Comment on above: Performed By: #### C BC, BMP #### [place] [address] [place] Hemoglobin (Bld) [Mass/Vol] 16.2 g/dL Normal 13.0-17.0 [facility] Comment on above: Performed By: #### C BC, BMP #### [address] Lymphocytes (Bld) [#/Vol] 1.3 10*3/uL Normal 1.00-4.8 [facility] Comment on above: Performed By: #### C BC, BMP #### [facility] [address] Lymphocytes/100 WBC (Bld) 26.8 % Normal . [facility] Comment on above: Performed By: #### C BC, BMP #### [facility] [address] MCH (RBC) [Entitic mass] 32.4 pg Normal 27.5-35.2 [facility] Comment on above: Performed By: #### C BC, BMP #### [facility] [address] MCV (RBC) [Entitic vol] 96.0 fL Normal 83.5-101 [facility] Comment on above: Performed By: #### C BC, BMP #### [address] Mean Corpuscular HGB Conc 33.8 g/dL Normal 32.5-35.6 [facility] Comment on above: Performed By: #### C BC, BMP #### [facility] [address] [place] [address] [place] Monocytes (Bld) [#/Vol] 0.5 10*3/uL Normal 0.0-0.8 [facility] Comment on above: Performed By: #### C BC, BMP #### [facility] [address] [place] [address] [place] Monocytes/100 WBC (Bld) 9.4 % Normal . [facility] Comment on above: Performed By: #### C BC, BMP #### [facility] [address] Neutrophils (Bld) [#/Vol] 2.9 10*3/uL Normal 1.8-7.7 [facility] Comment on above: Performed By: #### C BC, BMP #### [facility] [address] Neutrophils/100 WBC (Bld) 59.4 % Normal . [facility] Comment on above: Performed By: #### C BC, BMP #### [facility] [address] NRBC% 0.1 /100{WBC} Normal 0-0.5 [facility] Comment on above: Performed By: #### C AMAIRANI, BMP #### [facility] [address] Platelet mean volume (Bld) [Entitic vol] 8.4 fL Normal 6.6-10.1 [facility] Comment on above: Performed By: #### C AMAIRANI, BMP #### [facility] [address] Platelets (Bld) [#/Vol] 173 10*3/uL Normal 150-450 [facility] Comment on above: Performed By: #### C AMAIRANI, BMP #### [facility] [address] RBC (Bld) [#/Vol] 5.01 10*6/uL Normal 3.90-5.60 [facility] Comment on above: Performed By: #### C AMAIRANI, BMP #### [facility] [address] WBC (Bld) [#/Vol] 4.9 10*3/uL Normal 4.1-10.5 [facility] Comment on above: Performed By: #### C AMAIRANI, BMP #### [address] Creatinine [Mass/volume] in Serum or PlasmaOrdered By: Yogesh Becker on 10-23-2023 Creatinine [Mass/Vol] 0.71 mg/dL 0.70-1.30 [facility] Eosinophils Auto (Bld) [#/Vo l]Ordered By: Yogesh Becker on 10-23-2023 Eosinophils (Bld) [#/Vol] 0.2 10*3/uL 0.0-0.45 [facility] Eosinophils/100 WBC Auto (Bl d)Ordered By: Yogesh Becker on 10-23-2023 Eosinophils/100 WBC (Bld) 3.6 % . [facility] Erythrocyte distribution wid th Auto (RBC) [Ratio]Ordered By: Yogesh Becker on 10-23-2023 Erythrocyte distribution width (RBC) [Ratio] 14.3 % 12.0-14.8 [facility] Glucose [Mass/volume] in Ser um or PlasmaOrdered By: Yogesh Becker on 10-23-2023 Glucose [Mass/Vol] 105 mg/dL 70-100 [facility] Comment on above: ADA recommended refe rence rangeRandom Glucose Reference Range is dependent on time and content of last meal. Glucose of more than 200 mg/dL in a nonstressed, ambulatory subject supports the diagnosis of Diabetes Mellitus. Hematocrit Auto (Bld) [Volum e fraction]Ordered By: Yogesh Becker on 10-23-2023 Hematocrit (Bld) [Volume fraction] 48.1 % 38.8-50.0 [facility] Hemoglobin [Mass/volume] in BloodOrdered By: Yogesh Becker on 10-23-2023 Hemoglobin (Bld) [Mass/Vol] 16.2 g/dL 13.0-17.0 [facility] Leukocytes [#/volume] correc charanjit for nucleated erythrocytes in Blood by Automated counOrdered By: Yogesh Becker on 10-23-2023 WBC corrected for nucl RBC Auto (Bld) [#/Vol] 4.9 10*3/uL 4.1-10.5 [facility] Lymphocytes Auto (Bld) [#/Vo l]Ordered By: Yogesh Becker on 10-23-2023 Lymphocytes (Bld) [#/Vol] 1.3 10*3/uL 1.00-4.8 [facility] Lymphocytes/100 WBC Auto (Bl d)Ordered By: Yogesh Becker on 10-23-2023 Lymphocytes/100 WBC (Bld) 26.8 % . [facility] MCH Auto (RBC) [Entitic mass ]Ordered By: Yogesh Becker on 10-23-2023 MCH (RBC) [Entitic mass] 32.4 pg 27.5-35.2 [facility] MCHC Auto (RBC) [Mass/Vol]Or dered By: Yogesh Becker on 10-23-2023 MCHC (RBC) [Mass/Vol] 33.8 g/dL 32.5-35.6 [facility] MCV Auto (RBC) [Entitic vol] Ordered By: Yogesh Becker on 10-23-2023 MCV (RBC) [Entitic vol] 96.0 fL 83.5-101 [facility] Monocytes Auto (Bld) [#/Vol] Ordered By: Yogesh Becker on 10-23-2023 Monocytes (Bld) [#/Vol] 0.5 10*3/uL 0.0-0.8 [facility] Monocytes/100 WBC Auto (Bld) Ordered By: Yogesh Becker on 10-23-2023 Monocytes/100 WBC (Bld) 9.4 % . [facility] Neutrophils Auto (Bld) [#/Vo l]Ordered By: Yogesh Becker on 10-23-2023 Neutrophils (Bld) [#/Vol] 2.9 10*3/uL 1.8-7.7 [facility] Neutrophils/100 WBC Auto (Bl d)Ordered By: Yogesh Becker on 10-23-2023 Neutrophils/100 WBC (Bld) 59.4 % . [facility] No Panel InformationOrdered By: Yogesh Becker on 10-23-2023 Estimated GFR (CKD-EPI) > 60.0 mL/Min [facility] Creatinine Clearance (Chem N/A [facility] Nucleated erythrocytes [Pres ence] in Blood by Automated countOrdered By: Yogesh Becker on 10-23-2023 Nucleated RBC Auto Ql (Bld) 0.1 /100{WBC} 0-0.5 [facility] Platelet mean volume Auto (B ld) [Entitic vol]Ordered By: Yogesh Becker on 10-23-2023 Platelet mean volume (Bld) [Entitic vol] 8.4 fL 6.6-10.1 [facility] Platelets Auto (Bld) [#/Vol] Ordered By: Yogesh Becker on 10-23-2023 Platelets (Bld) [#/Vol] 173 10*3/uL 150-450 [facility] Potassium [Moles/volume] in Serum or PlasmaOrdered By: Yogesh Becker on 10-23-2023 Potassium [Moles/Vol] 4.5 mmol/L 3.5-5.1 [facility] RBC Auto (Bld) [#/Vol]Ordere d By: Yogesh Becker on 10-23-2023 RBC (Bld) [#/Vol] 5.01 10*6/uL 3.90-5.60 [facility] Serum or plasma anion gap de terminationOrdered By: Yogesh Becker on 10-23-2023 Anion gap [Moles/Vol] 9.7 mmol/L 6.0-15.0 [facility] Sodium [Moles/volume] in Ser um or PlasmaOrdered By: Yogesh Becker on 10-23-2023 Sodium [Moles/Vol] 139 mmol/L 136-145 [facility] Urea nitrogen [Mass/volume] in Serum or PlasmaOrdered By: Yogesh Becker on 10-23-2023 Urea nitrogen [Mass/Vol] 18 mg/dL 7-25 [facility] WBC Auto (Bld) [#/Vol]Ordere d By: Yogesh Becker on 10-23-2023 WBC (Bld) [#/Vol] 4.9 10*3/uL 4.1-10.5 [facility] Amphetamine Screen Ql (U)Ord ered By: Giuseppe Desouza on 10-02-2023 Amphetamines Ql (U) Negative Negative [facility] Barbiturates [Presence] in U rine by Screen methodOrdered By: Giuseppe Desouza on 10-02-2023 Barbiturates Screen Ql (U) Negative Negative [facility] Benzodiazepines Screen Ql (U )Ordered By: Giuseppe Desouza on 10-02-2023 Benzodiazepines Ql (U) Positive Negative [facility] Benzoylecgonine [Presence] i n Urine by Screen methodOrdered By: Giuseppe Desouza on 10-02-2023 Benzoylecgonine Screen Ql (U) Positive Negative [facility] Cannabinoids [Presence] in U rine by Screen methodOrdered By: Giuseppe Desouza on 10-02-2023 Cannabinoids Screen Ql (U) Positive Negative [facility] Comment on above: These are unconfirme d results and should not be used for legal purposes. Drug Cut-Off Concentration: AMPH 1000 ng/mL ZE 200 ng/mL DUANE 200 ng/mL COCM 300 ng/mL OP 300 ng/mL PCP 25 ng/mL THC 20 ng/mL Drug Screen,Urineon 10-02-20 23 Amphetamine Screen,Urine Negative Normal Negative [facility] Comment on above: Performed By: #### T SH3, [id number] #### [facility] [address] [place] [address] #### METH #### [facility] , Barbiturate Screen,Urine Negative Normal Negative [facility] Comment on above: Performed By: #### T SH3, [id number] #### [address] #### METH #### [facility] , Benzodiazepines Screen,Urine Positive High Negative [facility] Comment on above: Performed By: #### T SH3, [id number] #### [address] #### METH #### [facility] , Cannabinoid Screen,Urine Positive High Negative [facility] Comment on above: Result Comment: Thes e are unconfirmed results and should not be used for legal purposes. Drug Cut-Off Concentration: AMPH 1000 ng/mL ZE 200 ng/mL DUANE 200 ng/mL COCM 300 ng/mL OP 300 ng/mL PCP 25 ng/mL THC 20 ng/mL PERFORMED BY: [place] [address] PATHOLOGIST FILLING AND PACKING SUPERVISOR CLEVE CANDELARIA M.D. Performed By: #### T SH3, [id number] #### [place] [address] [place] #### METH #### [facility] , Cocaine Screen,Urine Positive High Negative [facility] Comment on above: Performed By: #### T SH3, [id number] #### [address] [place] [address] [place] #### METH #### [facility] , Opiate Screen,Urine Negative Normal Negative [facility] Comment on above: Performed By: #### T SH3, [id number] #### [facility] [address] [place] [address] #### METH #### [facility] , Phencyclidine Screen,Urine Negative Normal Negative [facility] Comment on above: Performed By: #### T SH3, [id number] #### [facility] [address] [place] [address] #### METH #### [facility] , Glucose Glucometer (BldC) [M ass/Vol]Ordered By: Yogesh Becker on 10-02-2023 Glucose [Mass/Vol] 290 mg/dL [facility] Comment on above: [place] Glucose Refer ence Range is dependent on time and content of last meal. Glucose of more than 200 mg/dL in a nonstressed, ambulatory subject supports the diagnosis of Diabetes Mellitus. Glucose Poct Glucometerson 1 12-03-2022 Commemt1 Glu2: Cleaned Meter [facility] Comment on above: Result Comment: PERF ORMED BY: [address] [place] [address] PATHOLOGIST FILLING AND PACKING SUPERVISOR CLEVE CANDELARIA M.D. Performed By: #### C BC, BMP #### [address] Glucose [Mass/Vol] 290 mg/dL Normal [facility] Comment on above: Result Comment: [place] Glucose Reference Range is dependent on time and content of last meal. Glucose of more than 200 mg/dL in a nonstressed, ambulatory subject supports the diagnosis of Diabetes Mellitus. Performed By: #### C BC, BMP #### [address] No Panel InformationOrdered By: Yogesh Becker on 10-02-2023 Bedside Glucose Comment Glu2: cleaned meter [facility] Opiates [Presence] in Urine by Screen methodOrdered By: Giuseppe Desouza on 10-02-2023 Opiates Screen Ql (U) Negative Negative [facility] Phencyclidine Screen Ql (U)O rdered By: Giuseppe Desouza on 10-02-2023 Phencyclidine Ql (U) Negative Negative [facility] POC Glucose Randomon 023 Glucose [Mass/Vol] 192 mg/dL High 70-99 [facility] Comment on above: Performed By: #### C [id number] #### [facility] [address] [place] [address] Glucose [Mass/Vol] 246 mg/dL High 70-99 [facility] Comment on above: Performed By: #### C [id number] #### [facility] [address] [place] [address] Basic Metabolic Panelon 08-28 Anion gap [Moles/Vol] 13.1 mmol/L Normal 6.0-15.0 [facility] Comment on above: Performed By: #### B MP, CBC #### [facility] [address] [place] [address] [place] Calcium [Mass/Vol] 9.3 mg/dL Normal 8.6-10.3 [facility] Comment on above: Result Comment: PERF ORMED BY: [place] [address] PATHOLOGIST FILLING AND P[employer]ING SUPERVISOR CLEVE CANDELARIA M.D. Performed By: #### B MP, CBC #### [facility] [address] [place] [address] [place] Chloride [Moles/Vol] 96 mmol/L Low 98-107 [facility] Comment on above: Performed By: #### B MP, CBC #### [facility] [address] [place] [id number] [place] CO2 [Moles/Vol] 30.6 mmol/L Normal 21.0-31.0 [facility] Comment on above: Performed By: #### B MP, CBC #### [address] Creatinine [Mass/Vol] 1.01 mg/dL Normal 0.70-1.30 [facility] Comment on above: Performed By: #### B MP, CBC #### [place] [address] [place] GFR/1.73 sq M.predicted MDRD (S/P/Bld) [Vol rate/Area] mL/min/{1.73_m2} Normal [facility] Comment on above: Performed By: #### B MP, CBC #### [address] Glucose [Mass/Vol] 412 mg/dL High 70-100 [facility] Comment on above: Result Comment: [place] Glucose Reference Range is dependent on time and content of last meal. Glucose of more than 200 mg/dL in a nonstressed, ambulatory subject supports the diagnosis of Diabetes Mellitus. ADA recommended reference range Performed By: #### B MP, CBC #### [address] Potassium [Moles/Vol] 4.7 mmol/L Normal 3.5-5.1 [facility] Comment on above: Performed By: #### B MP, CBC #### [address] Sodium [Moles/Vol] 135 mmol/L Low 136-145 [facility] Comment on above: Performed By: #### B MP, CBC #### [place] [address] [place] Urea nitrogen [Mass/Vol] 28 mg/dL High 7-25 [facility] Comment on above: Performed By: #### B MP, CBC #### [place] [address] [place] Basophils Auto (Bld) [#/Vol] Ordered By: Yogesh Becker on 09-23-2023 Basophils (Bld) [#/Vol] 0.1 10*3/uL 0.0-0.2 [facility] Basophils/100 WBC Auto (Bld) Ordered By: Yogesh Becker on 09-23-2023 Basophils/100 WBC (Bld) 0.6 % . [facility] Calcium [Mass/volume] in Ser um or PlasmaOrdered By: Yogesh Becker on 09-23-2023 Calcium [Mass/Vol] 9.3 mg/dL 8.6-10.3 [facility] Carbon dioxide, total [Moles /volume] in Serum or PlasmaOrdered By: Yogesh Becker on 09-23-2023 CO2 [Moles/Vol] 30.6 mmol/L 21.0-31.0 [facility] Chloride [Moles/volume] in S raffi or PlasmaOrdered By: Yogesh Becker on 09-23-2023 Chloride [Moles/Vol] 96 mmol/L 98-107 [facility] Complete Blood Count Auto Di ffon 09-23-2023 Basophils (Bld) [#/Vol] 0.1 10*3/uL Normal 0.0-0.2 [facility] Comment on above: Result Comment: PERF ORMED BY: [place] [address] PATHOLOGIST F[employer]ING AND P[employer]ING SUPERVISOR CLEVE CANDELARIA M.D. Performed By: #### B MP, CBC #### [address] Basophils/100 WBC (Bld) 0.6 % Normal . [facility] Comment on above: Performed By: #### B MP, CBC #### [facility] [address] [place] [address] [place] Eosinophils (Bld) [#/Vol] 0.0 10*3/uL Normal 0.0-0.45 [facility] Comment on above: Performed By: #### B MP, CBC #### [address] Eosinophils/100 WBC (Bld) 0.1 % Normal . [facility] Comment on above: Performed By: #### B MP, CBC #### [address] Erythrocyte distribution width (RBC) [Ratio] 13.9 % Normal 12.0-14.8 [facility] Comment on above: Performed By: #### B MP, CBC #### [facility] [address] Hematocrit (Bld) [Volume fraction] 47.2 % Normal 38.8-50.0 [facility] Comment on above: Performed By: #### B MP, CBC #### [address] Hemoglobin (Bld) [Mass/Vol] 15.7 g/dL Normal 13.0-17.0 [facility] Comment on above: Performed By: #### B MP, CBC #### [address] Lymphocytes (Bld) [#/Vol] 1.7 10*3/uL Normal 1.00-4.8 [facility] Comment on above: Performed By: #### B MP, CBC #### [address] Lymphocytes/100 WBC (Bld) 13.3 % Normal . [facility] Comment on above: Performed By: #### B MP, CBC #### [address] MCH (RBC) [Entitic mass] 32.3 pg Normal 27.5-35.2 [facility] Comment on above: Performed By: #### B MP, CBC #### [address] MCV (RBC) [Entitic vol] 96.9 fL Normal 83.5-101 [facility] Comment on above: Performed By: #### B MP, CBC #### [address] Mean Corpuscular HGB Conc 33.4 g/dL Normal 32.5-35.6 [facility] Comment on above: Performed By: #### B MP, CBC #### [address] Monocytes (Bld) [#/Vol] 0.6 10*3/uL Normal 0.0-0.8 [facility] Comment on above: Performed By: #### B MP, CBC #### [facility] [address] Monocytes/100 WBC (Bld) 4.6 % Normal . [facility] Comment on above: Performed By: #### B MP, CBC #### [facility] [address] Neutrophils (Bld) [#/Vol] 10.1 10*3/uL High 1.8-7.7 [facility] Comment on above: Performed By: #### B MP, CBC #### [facility] [address] Neutrophils/100 WBC (Bld) 81.4 % Normal . [facility] Comment on above: Performed By: #### B MP, CBC #### [address] NRBC% 0.0 /100{WBC} Normal 0-0.5 [facility] Comment on above: Performed By: #### B MP, CBC #### [facility] [address] Platelet mean volume (Bld) [Entitic vol] 8.3 fL Normal 6.6-10.1 [facility] Comment on above: Performed By: #### B MP, CBC #### [facility] [address] [place] [address] [place] Platelets (Bld) [#/Vol] 203 10*3/uL Normal 150-450 [facility] Comment on above: Performed By: #### B MP, CBC #### [facility] [address] [place] [address] [place] RBC (Bld) [#/Vol] 4.87 10*6/uL Normal 3.90-5.60 [facility] Comment on above: Performed By: #### B MP, CBC #### [facility] [address] [place] [address] [place] WBC (Bld) [#/Vol] 12.4 10*3/uL High 4.1-10.5 [facility] Comment on above: Performed By: #### B MP, CBC #### [address] Creatinine [Mass/volume] in Serum or PlasmaOrdered By: Yogesh Becker on 09-23-2023 Creatinine [Mass/Vol] 1.01 mg/dL 0.70-1.30 [facility] ECG 12 lead ECGon 09-23-2023 ECG 12 lead ECG [facility] [place] [address] [place] [address] Electrocardiograph Report Signed Patient: Koko Meier MR#: [id number] : 1960 Acct:[id number] Age/Sex: 62 / M ADM Date: 09/23/23 Loc: Room: Type: [facility] Attending Dr: Yogesh Becker MD Ordering [...] Signed By Barron Cervantes MD 09/23/232228 Normal [facility] Eosinophils Auto (Bld) [#/Vo l]Ordered By: Yogesh Becker on 09-23-2023 Eosinophils (Bld) [#/Vol] 0.0 10*3/uL 0.0-0.45 [facility] Eosinophils/100 WBC Auto (Bl d)Ordered By: Yogesh Becker on 09-23-2023 Eosinophils/100 WBC (Bld) 0.1 % . [facility] Erythrocyte distribution wid th Auto (RBC) [Ratio]Ordered By: Yogesh Becker on 09-23-2023 Erythrocyte distribution width (RBC) [Ratio] 13.9 % 12.0-14.8 [facility] Glucose [Mass/volume] in Ser um or PlasmaOrdered By: Yogesh Becker on 09-23-2023 Glucose [Mass/Vol] 412 mg/dL 70-100 [facility] Comment on above: ADA recommended refe rence rangeRandom Glucose Reference Range is dependent on time and content of last meal. Glucose of more than 200 mg/dL in a nonstressed, ambulatory subject supports the diagnosis of Diabetes Mellitus. Hematocrit Auto (Bld) [Volum e fraction]Ordered By: Yogesh Becker on 09-23-2023 Hematocrit (Bld) [Volume fraction] 47.2 % 38.8-50.0 [facility] Hemoglobin [Mass/volume] in BloodOrdered By: Yogesh Becker on 09-23-2023 Hemoglobin (Bld) [Mass/Vol] 15.7 g/dL 13.0-17.0 [facility] Leukocytes [#/volume] correc charanjit for nucleated erythrocytes in Blood by Automated counOrdered By: Yogesh Becker on 09-23-2023 WBC corrected for nucl RBC Auto (Bld) [#/Vol] 12.4 10*3/uL 4.1-10.5 [facility] Lymphocytes Auto (Bld) [#/Vo l]Ordered By: Yogesh Becker on 09-23-2023 Lymphocytes (Bld) [#/Vol] 1.7 10*3/uL 1.00-4.8 [facility] Lymphocytes/100 WBC Auto (Bl d)Ordered By: Yogesh Becker on 09-23-2023 Lymphocytes/100 WBC (Bld) 13.3 % . [facility] MCH Auto (RBC) [Entitic mass ]Ordered By: Yogesh Becker on 09-23-2023 MCH (RBC) [Entitic mass] 32.3 pg 27.5-35.2 [facility] MCHC Auto (RBC) [Mass/Vol]Or dered By: Yogesh Becker on 09-23-2023 MCHC (RBC) [Mass/Vol] 33.4 g/dL 32.5-35.6 [facility] MCV Auto (RBC) [Entitic vol] Ordered By: Yogesh Becker on 09-23-2023 MCV (RBC) [Entitic vol] 96.9 fL 83.5-101 [facility] Monocytes Auto (Bld) [#/Vol] Ordered By: Yogesh Becker on 09-23-2023 Monocytes (Bld) [#/Vol] 0.6 10*3/uL 0.0-0.8 [facility] Monocytes/100 WBC Auto (Bld) Ordered By: Yogesh Becker on 09-23-2023 Monocytes/100 WBC (Bld) 4.6 % . [facility] Neutrophils Auto (Bld) [#/Vo l]Ordered By: Yogesh Becker on 09-23-2023 Neutrophils (Bld) [#/Vol] 10.1 10*3/uL 1.8-7.7 [facility] Neutrophils/100 WBC Auto (Bl d)Ordered By: Yogesh Becker on 09-23-2023 Neutrophils/100 WBC (Bld) 81.4 % . [facility] No Panel InformationOrdered By: Yogesh Becker on 09-23-2023 Estimated GFR (CKD-EPI) > 60.0 mL/Min [facility] Creatinine Clearance (Chem N/A [facility] Nucleated erythrocytes [Pres ence] in Blood by Automated countOrdered By: Yogesh Becker on 09-23-2023 Nucleated RBC Auto Ql (Bld) 0.0 /100{WBC} 0-0.5 [facility] Platelet mean volume Auto (B ld) [Entitic vol]Ordered By: Yogesh Becker on 09-23-2023 Platelet mean volume (Bld) [Entitic vol] 8.3 fL 6.6-10.1 [facility] Platelets Auto (Bld) [#/Vol] Ordered By: Yogesh Becker on 09-23-2023 Platelets (Bld) [#/Vol] 203 10*3/uL 150-450 [facility] Potassium [Moles/volume] in Serum or PlasmaOrdered By: Yogesh Becker on 09-23-2023 Potassium [Moles/Vol] 4.7 mmol/L 3.5-5.1 [facility] RBC Auto (Bld) [#/Vol]Ordere d By: Yogesh Becker on 09-23-2023 RBC (Bld) [#/Vol] 4.87 10*6/uL 3.90-5.60 [facility] Serum or plasma anion gap de terminationOrdered By: Yogesh Becker on 09-23-2023 Anion gap [Moles/Vol] 13.1 mmol/L 6.0-15.0 [facility] Sodium [Moles/volume] in Ser um or PlasmaOrdered By: Yogesh Becker on 09-23-2023 Sodium [Moles/Vol] 135 mmol/L 136-145 [facility] Urea nitrogen [Mass/volume] in Serum or PlasmaOrdered By: Yogesh Becker on 09-23-2023 Urea nitrogen [Mass/Vol] 28 mg/dL 7-25 [facility] WBC Auto (Bld) [#/Vol]Ordere d By: Yogesh Becker on 09-23-2023 WBC (Bld) [#/Vol] 12.4 10*3/uL 4.1-10.[address] [facility] [address] ABDOMEN PELVIS W IV CONTR Ammon [...] spine 5V*on 07-27 XR cervical spine 5V* [facility] [place] [address] [place] [address] XRay Report Signed Patient: Koko Meier MR#: [id number] : 1960 Acct:[id number] Age/Sex: 62 / M ADM Date: 08/11/23 Loc: [place] Room: Type: [facility] Attending Dr: Savanna Mcclain MD Copies [...] Koko Hernandez M.D.08/11/2023 5:00 PM Dictation Location: [place] Transcribed By: SHIRLEY 08/11/231699 Dictated By: Koko Hernandez DO 08/11/231656 Signed By: 08/11/231699 Normal [facility] XR thoracic spine 3V*on 07-27 XR thoracic spine 3V* [facility] [place] [address] [place] [address] XRay Report Signed Patient: Koko Meier MR#: [id number] : 1960 Acct:[id number] Age/Sex: 62 / M ADM Date: 08/11/23 Loc: [place] Room: Type: [facility] Attending Dr: Savanna Mcclain MD Copies [...] Koko Hernandez M.D.08/11/2023 5:01 PM Dictation Location: [employer] Transcribed By: SHIRLEY 08/11/231700 Dictated By: Koko Hernandez DO 08/11/231699 Signed By: 08/11/231700 Normal [facility] XR lumbar spine 6V w bending on 08-01-2023 XR lumbar spine 6V w bending [facility] [place] [address] [place] [address] XRay Report Signed Patient: Koko Meier MR#: [id number] : 1960 Acct:[id number] Age/Sex: 62 / M ADM Date: 08/01/23 Loc: [place] Room: Type: [facility] Attending Dr: Josh Melvin DO Copies to: [...] Monika Eastman M.D.08/01/2023 1:06 PM Dictation Location: [id number] Transcribed By: SHIRLEY 08/01/23 1306 Dictated By: Monika Eastman MD 08/01/23 1210 Signed By: 08/01/23 1306 Normal [facility] A1C with Estimated Average G alice 04-21-2023 Glucose [Mass/Vol] 197 mg/dL Normal [facility] Comment on above: Result Comment: PERF ORMED BY: [place] [address] PATHOLOGIST [employer]ING SUPERVISOR CLEVE CANDELARIA M.D. Performed By: #### C BC, BMP #### [facility] [address] HbA1c (Bld) [Mass fraction] 8.5 % High 4.3-5.6 [facility] Comment on above: Result Comment: Incr eased risk for diabetes: 5.7 - 6.4 diabetes: >6.4 glycemic control for adults with diabetes: <7.0 Performed By: #### C BC, BMP #### [facility] [address] Alanine aminotransferase [En zymatic activity/volume] in Serum or PlasmaOrdered By: Josh Bunting on 04-21-2023 ALT [Catalytic activity/Vol] 19 U/L 7-52 [facility] Albumin [Mass/volume] in Ser um or Plasma by Bromocresol green (BCG) dye binding methoOrdered By: Josh Bunting on 04-21-2023 Albumin BCG dye [Mass/Vol] 4.2 g/dL 3.5-5.7 [facility] Alkaline phosphatase [Enzyma tic activity/volume] in Serum or PlasmaOrdered By: Josh Bunting on 04-21-2023 ALP [Catalytic activity/Vol] 67 U/L 34-104 [facility] Aspartate aminotransferase [ Enzymatic activity/volume] in Serum or PlasmaOrdered By: Josh Bunting on 04-21-2023 AST [Catalytic activity/Vol] 16 U/L 13-39 [facility] Basophils Auto (Bld) [#/Vol] Ordered By: Josh Bunting on 04-21-2023 Basophils (Bld) [#/Vol] 0.1 10*3/uL 0.0-0.2 [facility] Basophils/100 WBC Auto (Bld) Ordered By: Josh Bunting on 04-21-2023 Basophils/100 WBC (Bld) 0.9 % . [facility] Bilirubin.total [Mass/volume ] in Serum or PlasmaOrdered By: Josh Bunting on 04-21-2023 Bilirubin [Mass/Vol] 0.4 mg/dL 0.3-1.0 [facility] Calcium [Mass/volume] in Ser um or PlasmaOrdered By: Josh Bunting on 04-21-2023 Calcium [Mass/Vol] 9.3 mg/dL 8.6-10.3 [facility] Carbon dioxide, total [Moles /volume] in Serum or PlasmaOrdered By: Josh Bunting on 04-21-2023 CO2 [Moles/Vol] 30.3 mmol/L 21.0-31.0 [facility] Chloride [Moles/volume] in S raffi or PlasmaOrdered By: Josh Bunting on 04-21-2023 Chloride [Moles/Vol] 99 mmol/L 98-107 [facility] Cholesterol [Mass/volume] in Serum or PlasmaOrdered By: Josh Bunting on 04-21-2023 Cholesterol [Mass/Vol] 300 mg/dL 140-200 [facility] Comment on above: Chol less than 200 m g/dl low riskChol 201-239 mg/dl borderline riskChol 240 mg/dl and greater high risk Cholesterol in LDL Calc [Mas s/Vol]Ordered By: Josh Bunting on 04-21-2023 Cholesterol in LDL [Mass/Vol] 207 mg/dL 0-100 [facility] Comment on above: LDL ATP III CLASSIFI CATIONLDL less than 100 mg/dL OptimalLDL 100-129 mg/dL Near or above optimalLDL 130-159 mg/dL Borderline highLDL 160-189 mg/dL HighLDL greater than 189 mg/dL Very high Cholesterol in VLDL Calc [Ma ss/Vol]Ordered By: Josh Bunting on 04-21-2023 Cholesterol in VLDL [Mass/Vol] 32 mg/dL [facility] Complete Blood Count Auto Di ffon 04-21-2023 Basophils (Bld) [#/Vol] 0.1 10*3/uL Normal 0.0-0.2 [facility] Comment on above: Result Comment: PERF ORMED BY: [place] [address] PATHOLOGIST [employer] SUPER[employer]OR CLEVE CANDELARIA M.D. Performed By: #### C BC, BMP #### [facility] [address] [place] [address] [place] Basophils/100 WBC (Bld) 0.9 % Normal . [facility] Comment on above: Performed By: #### C BC, BMP #### [facility] [address] [place] [address] [place] Eosinophils (Bld) [#/Vol] 0.2 10*3/uL Normal 0.0-0.45 [facility] Comment on above: Performed By: #### C BC, BMP #### [place] [address] [place] Eosinophils/100 WBC (Bld) 2.1 % Normal . [facility] Comment on above: Performed By: #### C BC, BMP #### [address] Erythrocyte distribution width (RBC) [Ratio] 15.0 % High 12.0-14.8 [facility] Comment on above: Performed By: #### C BC, BMP #### [address] Hematocrit (Bld) [Volume fraction] 48.8 % Normal 38.8-50.0 [facility] Comment on above: Performed By: #### C BC, BMP #### [place] [address] [place] Hemoglobin (Bld) [Mass/Vol] 16.7 g/dL Normal 13.0-17.0 [facility] Comment on above: Performed By: #### C BC, BMP #### [place] [address] [place] Lymphocytes (Bld) [#/Vol] 1.9 10*3/uL Normal 1.00-4.8 [facility] Comment on above: Performed By: #### C BC, BMP #### [facility] [address] [place] [address] [place] Lymphocytes/100 WBC (Bld) 26.3 % Normal . [facility] Comment on above: Performed By: #### C BC, BMP #### [facility] [address] MCH (RBC) [Entitic mass] 32.5 pg Normal 27.5-35.2 [facility] Comment on above: Performed By: #### C BC, BMP #### [facility] [address] MCV (RBC) [Entitic vol] 95.2 fL Normal 83.5-101 [facility] Comment on above: Performed By: #### C BC, BMP #### [address] Mean Corpuscular HGB Conc 34.2 g/dL Normal 32.5-35.6 [facility] Comment on above: Performed By: #### C BC, BMP #### [facility] [address] [place] [address] [place] Monocytes (Bld) [#/Vol] 0.4 10*3/uL Normal 0.0-0.8 [facility] Comment on above: Performed By: #### C BC, BMP #### [facility] [address] Monocytes/100 WBC (Bld) 5.5 % Normal . [facility] Comment on above: Performed By: #### C BC, BMP #### [facility] [address] [place] [address] [place] Neutrophils (Bld) [#/Vol] 4.6 10*3/uL Normal 1.8-7.7 [facility] Comment on above: Performed By: #### C BC, BMP #### [facility] [address] [place] [id number] [place] Neutrophils/100 WBC (Bld) 65.2 % Normal . [facility] Comment on above: Performed By: #### C BC, BMP #### [facility] [address] NRBC% 0.0 /100{WBC} Normal 0-0.5 [facility] Comment on above: Performed By: #### C BC, BMP #### [address] Platelet mean volume (Bld) [Entitic vol] 8.6 fL Normal 6.6-10.1 [facility] Comment on above: Performed By: #### C BC, BMP #### [address] Platelets (Bld) [#/Vol] 200 10*3/uL Normal 150-450 [facility] Comment on above: Performed By: #### C AMAIRANI, BMP #### [address] RBC (Bld) [#/Vol] 5.13 10*6/uL Normal 3.90-5.60 [facility] Comment on above: Performed By: #### C AMAIRANI, BMP #### [address] WBC (Bld) [#/Vol] 7.1 10*3/uL Normal 4.1-10.5 [facility] Comment on above: Performed By: #### C AMAIRANI, BMP #### [address] Comprehensive Metabolic Pane brennen 04-21-2023 Albumin [Mass/Vol] 4.2 g/dL Normal 3.5-5.7 [facility] Comment on above: Order Comment: PT FA STED 12 HOURS Performed By: #### C BC, BMP #### [address] Albumin/Globulin [Mass ratio] 1.9 {ratio} Normal [facility] Comment on above: Order Comment: PT FA STED 12 HOURS Performed By: #### C BC, BMP #### [address] ALP [Catalytic activity/Vol] 67 U/L Normal 34-104 [facility] Comment on above: Order Comment: PT FA STED 12 HOURS Performed By: #### C BC, BMP #### [facility] [address] [place] [id number] [place] ALT [Catalytic activity/Vol] 19 U/L Normal 7-52 [facility] Comment on above: Order Comment: PT FA STED 12 HOURS Performed By: #### C BC, BMP #### [facility] [address] [place] [id number] [place] Anion gap [Moles/Vol] 11.3 mmol/L Normal 6.0-15.0 [facility] Comment on above: Order Comment: PT FA STED 12 HOURS Performed By: #### C BC, BMP #### [facility] [address] AST [Catalytic activity/Vol] 16 U/L Normal 13-39 [facility] Comment on above: Order Comment: PT FA STED 12 HOURS Performed By: #### C BC, BMP #### [facility] [address] [place] [address] [place] Bilirubin [Mass/Vol] 0.4 mg/dL Normal 0.3-1.0 [facility] Comment on above: Order Comment: PT FA STED 12 HOURS Performed By: #### C BC, BMP #### [facility] [address] [place] [id number] [place] Calcium [Mass/Vol] 9.3 mg/dL Normal 8.6-10.3 [facility] Comment on above: Order Comment: PT FA STED 12 HOURS Performed By: #### C BC, BMP #### [facility] [address] [place] [id number] [place] Chloride [Moles/Vol] 99 mmol/L Normal 98-107 [facility] Comment on above: Order Comment: PT FA STED 12 HOURS Performed By: #### C BC, BMP #### [facility] [address] [place] [id number] [place] CO2 [Moles/Vol] 30.3 mmol/L Normal 21.0-31.0 [facility] Comment on above: Order Comment: PT FA STED 12 HOURS Performed By: #### C BC, BMP #### [facility] [address] Creatinine [Mass/Vol] 0.90 mg/dL Normal 0.70-1.30 [facility] Comment on above: Order Comment: PT FA STED 12 HOURS Performed By: #### C BC, BMP #### [facility] [address] [place] [address] [place] GFR/1.73 sq M.predicted MDRD (S/P/Bld) [Vol rate/Area] mL/min/{1.73_m2} [facility] Comment on above: Order Comment: PT FA STED 12 HOURS Performed By: #### C BC, BMP #### [address] Globulin (S) [Mass/Vol] 2.2 g/dL [facility] Comment on above: Order Comment: PT FA STED 12 HOURS Performed By: #### C BC, BMP #### [address] Glucose [Mass/Vol] 149 mg/dL High 70-100 [facility] Comment on above: Order Comment: PT FA STED 12 HOURS Result Comment: [place] Glucose Reference Range is dependent on time and content of last meal. Glucose of more than 200 mg/dL in a nonstressed, ambulatory subject supports the diagnosis of Diabetes Mellitus. ADA recommended reference range Performed By: #### C BC, BMP #### [facility] [address] [place] [address] [place] Potassium [Moles/Vol] 4.6 mmol/L Normal 3.5-5.1 [facility] Comment on above: Order Comment: PT FA STED 12 HOURS Performed By: #### C BC, BMP #### [facility] [address] [place] [address] [place] Protein [Mass/Vol] 6.4 g/dL Normal 6.4-8.9 [facility] Comment on above: Order Comment: PT FA STED 12 HOURS Performed By: #### C BC, BMP #### [address] [place] [address] [place] Sodium [Moles/Vol] 136 mmol/L Normal 136-145 [facility] Comment on above: Order Comment: PT FA STED 12 HOURS Performed By: #### C BC, BMP #### [facility] [address] [place] [id number] [place] Urea nitrogen [Mass/Vol] 25 mg/dL Normal 7-25 [facility] Comment on above: Order Comment: PT FA STED 12 HOURS Performed By: #### C BC, BMP #### [facility] [address] [place] [id number] [place] Creatinine [Mass/volume] in Serum or PlasmaOrdered By: Josh Bunting on 04-21-2023 Creatinine [Mass/Vol] 0.90 mg/dL 0.70-1.30 [facility] Eosinophils Auto (Bld) [#/Vo l]Ordered By: Josh Bunting on 04-21-2023 Eosinophils (Bld) [#/Vol] 0.2 10*3/uL 0.0-0.45 [facility] Eosinophils/100 WBC Auto (Bl d)Ordered By: Josh Bunting on 04-21-2023 Eosinophils/100 WBC (Bld) 2.1 % . [facility] Erythrocyte distribution wid th Auto (RBC) [Ratio]Ordered By: Josh Bunting on 04-21-2023 Erythrocyte distribution width (RBC) [Ratio] 15.0 % 12.0-14.8 [facility] Globulin Calc (S) [Mass/Vol] Ordered By: Josh Bunting on 04-21-2023 Globulin (S) [Mass/Vol] 2.2 g/dL [facility] Glucose [Mass/volume] in Ser um or PlasmaOrdered By: Josh Bunting on 04-21-2023 Glucose [Mass/Vol] 149 mg/dL 70-100 [facility] Comment on above: ADA recommended refe rence rangeRandom Glucose Reference Range is dependent on time and content of last meal. Glucose of more than 200 mg/dL in a nonstressed, ambulatory subject supports the diagnosis of Diabetes Mellitus. Glucose mean value [Mass/vol ume] in Blood Estimated from glycated hemoglobinOrdered By: Josh Melvin on 04-21-2023 Average glucose Estimated from glycated hemoglobin (Bld) [Mass/Vol] 197 mg/dL [facility] Hematocrit Auto (Bld) [Volum e fraction]Ordered By: Josh Melvin on 04-21-2023 Hematocrit (Bld) [Volume fraction] 48.8 % 38.8-50.0 [facility] Hemoglobin A1c percentageOrd ered By: Josh Melvin on 04-21-2023 HbA1c (Bld) [Mass fraction] 8.5 % 4.3-5.6 [facility] Comment on above: Increased risk for d iabetes: 5.7 - 6.4diabetes: >6.4glycemic control for adults with diabetes: <7.0 Hemoglobin [Mass/volume] in BloodOrdered By: Josh Melvin on 04-21-2023 Hemoglobin (Bld) [Mass/Vol] 16.7 g/dL 13.0-17.0 [facility] Leukocytes [#/volume] correc charanjit for nucleated erythrocytes in Blood by Automated counOrdered By: Josh Melvin on 04-21-2023 WBC corrected for nucl RBC Auto (Bld) [#/Vol] 7.1 10*3/uL 4.1-10.5 [facility] Lipid Panelon 04-21-2023 Cholesterol [Mass/Vol] 300 mg/dL High 140-200 [facility] Comment on above: Order Comment: PT FA STED 12 HOURS Result Comment: Chol less than 200 mg/dl low risk Chol 201-239 mg/dl borderline risk Chol 240 mg/dl and greater high risk Performed By: #### C BC, BMP #### [facility] [address] [place] [address] [place] Cholesterol in HDL [Mass/Vol] 61 mg/dL Normal 23-92 [facility] Comment on above: Order Comment: PT FA STED 12 HOURS Result Comment: HDL CHOL ATP-III CLASSIFICATION Cardiovascular Risk HDL > or equal to 60 mg/dL LOW HDL < 40 mg/dL HIGH Performed By: #### C BC, BMP #### [facility] [address] [place] [id number] [place] Cholesterol.total/Chol esterol in HDL [Mass ratio] 4.9 {ratio} Normal <5.0 [facility] Comment on above: Order Comment: PT FA STED 12 HOURS Result Comment: PERF ORMED BY: [place] [address] PATHOLOGIST FILLING AND P[employer]ING SUPERVISOR CLEVE CANDELARIA M.D. Performed By: #### C AMAIRANI, BMP #### [facility] [address] [place] [address] LDL Cholesterol,Calculated 207 mg/dL High 0-100 [facility] Comment on above: Order Comment: PT FA STED 12 HOURS Result Comment: LDL ATP III CLASSIFICATION LDL less than 100 mg/dL Optimal LDL 100-129 mg/dL Near or above optimal LDL 130-159 mg/dL Borderline high LDL 160-189 mg/dL High LDL greater than 189 mg/dL Very high Performed By: #### C AMAIRANI, BMP #### [address] Triglyceride w/Reflex 162 mg/dL High 0-149 [facility] Comment on above: Order Comment: PT FA STED 12 HOURS Result Comment: TRIG ATP III CLASSIFICATION TRIG less than 150 mg/dL Normal TRIG 150-199 mg/dL Borderline high TRIG 200-500 mg/dL High TRIG greater than 500 mg/dL Very high Standard traceable to the Center for Disease Conrtrol and Prevention (CDC) test method. Performed By: #### C AMAIRANI, BMP #### [facility] [address] [place] [address] VLDL CHOLESTEROL 32 mg/dL Normal [facility] Comment on above: Order Comment: PT FA STED 12 HOURS Performed By: #### C BC, BMP #### [facility] [address] [place] [address] Lymphocytes Auto (Bld) [#/Vo l]Ordered By: Josh Melvin on 04-21-2023 Lymphocytes (Bld) [#/Vol] 1.9 10*3/uL 1.00-4.8 [facility] Lymphocytes/100 WBC Auto (Bl d)Ordered By: Josh Melvin on 04-21-2023 Lymphocytes/100 WBC (Bld) 26.3 % . [facility] MCH Auto (RBC) [Entitic mass ]Ordered By: Josh Bunting on 04-21-2023 MCH (RBC) [Entitic mass] 32.5 pg 27.5-35.2 [facility] MCHC Auto (RBC) [Mass/Vol]Or dered By: Josh Bunting on 04-21-2023 MCHC (RBC) [Mass/Vol] 34.2 g/dL 32.5-35.6 [facility] MCV Auto (RBC) [Entitic vol] Ordered By: Josh Bunting on 04-21-2023 MCV (RBC) [Entitic vol] 95.2 fL 83.5-101 [facility] Monocytes Auto (Bld) [#/Vol] Ordered By: Josh Bunting on 04-21-2023 Monocytes (Bld) [#/Vol] 0.4 10*3/uL 0.0-0.8 [facility] Monocytes/100 WBC Auto (Bld) Ordered By: Josh Bunting on 04-21-2023 Monocytes/100 WBC (Bld) 5.5 % . [facility] Neutrophils Auto (Bld) [#/Vo l]Ordered By: Josh Bunting on 04-21-2023 Neutrophils (Bld) [#/Vol] 4.6 10*3/uL 1.8-7.7 [facility] Neutrophils/100 WBC Auto (Bl d)Ordered By: Josh Bunting on 04-21-2023 Neutrophils/100 WBC (Bld) 65.2 % . [facility] No Panel InformationOrdered By: Josh Bunting on 04-21-2023 Estimated GFR (CKD-EPI) > 60.0 mL/Min [facility] Creatinine Clearance (Chem N/A [facility] Nucleated erythrocytes [Pres ence] in Blood by Automated countOrdered By: Josh Bunting on 04-21-2023 Nucleated RBC Auto Ql (Bld) 0.0 /100{WBC} 0-0.5 [facility] Platelet mean volume Auto (B ld) [Entitic vol]Ordered By: Josh Bunting on 04-21-2023 Platelet mean volume (Bld) [Entitic vol] 8.6 fL 6.6-10.1 [facility] Platelets Auto (Bld) [#/Vol] Ordered By: Josh Bunting on 04-21-2023 Platelets (Bld) [#/Vol] 200 10*3/uL 150-450 [facility] Potassium [Moles/volume] in Serum or PlasmaOrdered By: Josh Bunting on 04-21-2023 Potassium [Moles/Vol] 4.6 mmol/L 3.5-5.1 [facility] Protein [Mass/volume] in Ser um or PlasmaOrdered By: Josh Bunting on 04-21-2023 Protein [Mass/Vol] 6.4 g/dL 6.4-8.9 [facility] RBC Auto (Bld) [#/Vol]Ordere d By: Josh Bunting on 04-21-2023 RBC (Bld) [#/Vol] 5.13 10*6/uL 3.90-5.60 [facility] Serum or plasma albumin/glob ulin mass ratioOrdered By: Josh Bunting on 04-21-2023 Albumin/Globulin [Mass ratio] 1.9 {ratio} [facility] Serum or plasma anion gap de terminationOrdered By: Josh Bunting on 04-21-2023 Anion gap [Moles/Vol] 11.3 mmol/L 6.0-15.0 [facility] Serum or plasma high density lipoprotein (HDL) cholesterol measurementOrdered By: Josh Bunting on 04-21-2023 Cholesterol in HDL [Mass/Vol] 61 mg/dL 23-92 [facility] Comment on above: HDL CHOL ATP-III CLA SSIFICATION Cardiovascular RiskHDL > or equal to 60 mg/dL LOWHDL < 40 mg/dL HIGH Serum or plasma total choles terol/high density lipoprotein (HDL) cholesterol mass ratOrdered By: Josh Bunting on 04-21-2023 Cholesterol.total/Chol esterol in HDL [Mass ratio] 4.9 {ratio} <5.0 [facility] Sodium [Moles/volume] in Ser um or PlasmaOrdered By: Josh Bunting on 04-21-2023 Sodium [Moles/Vol] 136 mmol/L 136-145 [facility] Triglyceride [Mass/volume] i n Serum or PlasmaOrdered By: Josh Melvin on 04-21-2023 Triglyceride [Mass/Vol] 162 mg/dL 0-149 [facility] Comment on above: TRIG ATP III CLASSIF ICATIONTRIG less than 150 mg/dL NormalTRIG 150-199 mg/dL Borderline highTRIG 200-500 mg/dL High TRIG greater than 500 mg/dL Very highStandard traceable to the Center for Disease Conrtrol and Prevention (CDC) test method. Urea nitrogen [Mass/volume] in Serum or PlasmaOrdered By: Josh Melvin on 04-21-2023 Urea nitrogen [Mass/Vol] 25 mg/dL 7-25 [facility] WBC Auto (Bld) [#/Vol]Ordere d By: Josh Melvin on 04-21-2023 WBC (Bld) [#/Vol] 7.1 10*3/uL 4.1-10.5 [facility] CNPNon 04-10-2023 [facility] NIYAH MEIER ([id number]) 1960 M Date Time Provider Department 04/10/23 DONNY PERALTA [facility] During your visit today, we recorded [...] (HUMALOG KWIKPEN) 100 unit/mL Inject subcutaneously. - lisinopril-hydroCHLOROthiaz radha (ZESTORETIC) 10-12.5 mg per tablet 1 (one) time each day at the same time. - cyclobenzaprine (FLEXERIL) 10 mg tablet Take 10 mg by mouth three times daily. - hydrOXYzine pamoate (VISTARIL) 25 mg capsule TAKE 1 TO 2 CAPSULES BY MOUTH EVERY 6 HOURS NEEDED FOR ANXIETY Problem List As Of Date: 04/10/2023 (None) Encounter Status:Closed by KIMBERLI COUCH on 04/15/23 [facility] 03-26-2023 CNOV Office Visit ([facility] ) NIYAH MEIER ([id number]) 1960 M Date Time Provider Department 03/26/23 11:20 AM DONNY PERALTA During your visit today, we recorded the following information about you: Pulse Respiration 88/minute 17/minute Donny PeraltaEYAL.[facility] 03/26/2023 4:15 PM Signed Mr. Meier is [...] 2 to 3 weeks time. Donny Peralta APRN.[facility] CC: Josh Melvin DO Referring Provider: JOSH MELVIN [[id number]] Allergies As of Date: 03/26/2023 (No Known Allergies) Date Reviewed: 03/26/2023 Reviewed by: Olive Hui LPN - Fully Assessed Reason for Visit: Mouth lesion on left side [Other] Primary Visit Diagnosis:Laryngeal candidiasis [B37.89] Other Visit Diagnoses:Glossitis [K14.0] Oral candidiasis [B37.0] Hoarseness of voice [R49.0] History of alcohol abuse [F10.11] Order(s):COMP METABOLIC PANEL [SQCMP] Order #: [id number] FUTURE clotrimazole (MYCELEX) 10 mg trocheUse 1 Bud as instructed four times daily for 14 days.Disp: 56 tabletRfl: 0 Prescriptions as of 03/26/2023 - busPIRone HCl 30 mg tablet TAKE 1 TABLET BY MOUTH THREE TIMES DAILY FOR ANXIETY - celec (more content not included)... Normal [facility] Comprehensive metabolic 2000 panelon 03-26-2023 Albumin [Mass/Vol] 4.4 g/dL Normal 3.9-4.9 [facility] Comment on above: Order Comment: Speci men Type: BLOOD SPECIMEN Ordering Facility: [facility] Address: [address] [place], [place] [address] Performed By: #### 2 4323-8 #### [facility] CLIA [id number] [address] [place] [address] [place] ALP [Catalytic activity/Vol] 90 U/L Normal 38-113 [facility] Comment on above: Order Comment: Speci men Type: BLOOD SPECIMEN Ordering Facility: [facility] Address: [address] [place] [address] Performed By: #### 2 4323-8 #### [facility] CLIA [id number] [address] [place] [address] [place] ALT [Catalytic activity/Vol] 22 U/L Normal 10-54 [facility] Comment on above: Order Comment: Speci men Type: BLOOD SPECIMEN Ordering Facility: [facility] Address: [address] [place], [place] [address] Performed By: #### 2 4323-8 #### [facility] CLIA [id number] [address] [place] [address] [place] Anion gap [Moles/Vol] 11 mmol/L Normal 9-18 [facility] Comment on above: Order Comment: Speci men Type: BLOOD SPECIMEN Ordering Facility: [facility] Address: [address] [place], [place] [address] Performed By: #### 2 4323-8 #### [facility] CLIA [id number] [address] [place] [address] [place] AST [Catalytic activity/Vol] 23 U/L Normal 14-40 [facility] Comment on above: Order Comment: Speci men Type: BLOOD SPECIMEN Ordering Facility: [facility] Address: [address] Performed By: #### 2 4323-8 #### [facility] CLIA [id number] [address] [place] [address] [place] Bilirubin [Mass/Vol] 0.4 mg/dL Normal 0.2-1.3 [facility] Comment on above: Order Comment: Speci men Type: BLOOD SPECIMEN Ordering Facility: [facility] Address: [address] Performed By: #### 2 4323-8 #### [facility] CLIA [id number] [address] [place] [address] [place] Calcium [Mass/Vol] 9.6 mg/dL Normal 8.5-10.2 [facility] Comment on above: Order Comment: Speci men Type: BLOOD SPECIMEN Ordering Facility: [facility] Address: [address] Performed By: #### 2 4323-8 #### [facility] CLIA [id number] [address] [place] [address] [place] Chloride [Moles/Vol] 97 mmol/L Normal 97-105 [facility] Comment on above: Order Comment: Speci men Type: BLOOD SPECIMEN Ordering Facility: [facility] Address: [address] [place] [id number] Performed By: #### 2 4323-8 #### [facility] CLIA [id number] [address] [place] [address] [place] CO2 [Moles/Vol] 27 mmol/L Normal 22-30 [facility] Comment on above: Order Comment: Speci men Type: BLOOD SPECIMEN Ordering Facility: [facility] Address: [address] Performed By: #### 2 4323-8 #### [facility] CLIA [id number] [address] [place] [address] [place] Creatinine [Mass/Vol] 0.99 mg/dL Normal 0.73-1.22 [facility] Comment on above: Order Comment: Speci men Type: BLOOD SPECIMEN Ordering Facility: [facility] Address: [address] Performed By: #### 2 4323-8 #### [facility] CLIA [id number] [address] [place] [address] [place] ESTIMATED GLOMERULAR FILTRATION RATE 85 mL/min/1.73m??? Normal >=60 [facility] Comment on above: Order Comment: Demetriusi men Type: BLOOD SPECIMEN Ordering Facility: [facility] Address: [address] [place] [address] Result Comment: Neha mated Glomerular Filtration Rate [...] GFR. Performed By: #### 2 4323-8 #### [facility] CLIA [id number] [address] [place] [address] [place] Glucose [Mass/Vol] 85 mg/dL Normal 74-99 [facility] Comment on above: Order Comment: Speci men Type: BLOOD SPECIMEN Ordering Facility: [facility] Address: [address] [place], [place] [address] Result Comment: The [place] Diabetes Association (ADA) provides guidance for cutoff [...] Standards of Medical Care in Diabetes 2016, French Diabetes Association. Diabetes Care. 2016.39(Suppl 1). Performed By: #### 2 4323-8 #### [facility] CLIA [id number] [address] [place] [address] [place] Potassium [Moles/Vol] 4.5 mmol/L Normal 3.7-5.1 [facility] Comment on above: Order Comment: Speci men Type: BLOOD SPECIMEN Ordering Facility: [facility] Address: [address] [place] [address] Performed By: #### 2 4323-8 #### [facility] CLIA [id number] [address] [place] [address] [place] Protein [Mass/Vol] 7.0 g/dL Normal 6.3-8.0 [facility] Comment on above: Order Comment: Speci men Type: BLOOD SPECIMEN Ordering Facility: [facility] Address: [address] [place] [address] Performed By: #### 2 4323-8 #### [facility] CLIA [id number] [facility] [place] [address] [place] Sodium [Moles/Vol] 135 mmol/L Low 136-144 [facility] Comment on above: Order Comment: Speci men Type: BLOOD SPECIMEN Ordering Facility: [facility] Address: [address] Performed By: #### 2 4323-8 #### [facility] CLIA [id number] [facility] [place] [address] [place] Urea nitrogen [Mass/Vol] 25 mg/dL High 9-24 [facility] Comment on above: Order Comment: Speci men Type: BLOOD SPECIMEN Ordering Facility: [facility] Address: [address] [place] [address] Performed By: #### 2 4323-8 #### [facility] CLIA [id number] [address] [facility][NOTE 3] [id number] [id number] [place] XR lumbar spine 2-3V*on 01-25 XR lumbar spine 2-3V* [facility] [address] [place] [address] [place] [address] XRay Report Signed Patient: Koko Meier MR#: [id number] : 1960 Acct:[id number] Age/Sex: 62 / M ADM Date: 02/10/23 Loc: XD Room: Type: [facility] Attending Dr: Errol Humphrey MD Copies to: Errol Humphrey MD Ordering Provider: Errol Humphrey MD Date of Service: 02/10/23 XR/XR cervical spine 2V: M96.1 ([id number]) XR/XR lumbar spine 2-3V*: M96.1 CLINICAL DATA: [...] Monika Eastman M.D.02/10/2023 12:29 PM Dictation Location: [place] [address] Transcribed By: [facility] 02/10/23 1229 Dictated By: Monika Eastman MD 02/10/23 1220 Signed By: 02/10/23 1229 Normal [facility] Body fluid albumin measureme nt (mass/volume)Ordered By: Josh Melvin on 09-30-2022 Albumin (Body fld) [Mass/Vol] 3.6 g/dL 3.2-5.5 [facility] Cholesterol [Mass/volume] in Serum or PlasmaOrdered By: Josh Melvin on 09-30-2022 Cholesterol [Mass/Vol] 154 mg/dL 140-200 [facility] Comment on above: Chol less than 200 m g/dl low riskChol 201-239 mg/dl borderline riskChol 240 mg/dl and greater high risk Cholesterol in LDL Calc [Mas s/Vol]Ordered By: Josh Melvin on 09-30-2022 Cholesterol in LDL [Mass/Vol] 93 mg/dL 0-100 [facility] Comment on above: LDL ATP III CLASSIFI CATIONLDL less than 100 mg/dL OptimalLDL 100-129 mg/dL Near or above optimalLDL 130-159 mg/dL Borderline highLDL 160-189 mg/dL HighLDL greater than 189 mg/dL Very high Cholesterol in VLDL Calc [Ma ss/Vol]Ordered By: Josh Melvin on 09-30-2022 Cholesterol in VLDL [Mass/Vol] 17 mg/dL [facility] Creatinine and Glomerular fi ltration rate.predicted panel (S/P/Bld)Ordered By: Josh Melvin on 09-30-2022 Creatinine [Mass/Vol] 0.89 mg/dL 0.64-1.27 [facility] Estimated glomerular filtrat ion rate (GFR) non- AmericanOrdered By: Josh Melvin on 09-30-2022 GFR/1.73 sq M.predicted among non-blacks MDRD (S/P/Bld) [Vol rate/Area] > 60 mL/Min [facility] Globulin Calc (S) [Mass/Vol] Ordered By: Josh Melvin on 09-30-2022 Globulin (S) [Mass/Vol] 3.1 g/dL [facility] Glucose mean value [Mass/vol ume] in Blood Estimated from glycated hemoglobinOrdered By: Josh Melvin on 09-30-2022 Average glucose Estimated from glycated hemoglobin (Bld) [Mass/Vol] 180 mg/dL [facility] Hemoglobin A1c percentageOrd ered By: Josh Melvin on 09-30-2022 HbA1c (Bld) [Mass fraction] 7.9 % 4.3-5.6 [facility] Comment on above: Increased risk for d iabetes: 5.7 - 6.4diabetes: >6.4glycemic control for adults with diabetes: <7.0 No Panel InformationOrdered By: Josh Melvin on 09-30-2022 Estimated GFR () > 60 mL/Min [facility] Comment on above: GFR estimated refere nce range: According to KDOQI guidelines, <60 ml/min/1.73m2 is sufficient to diagnose a patient with chronic kidney disease. Pharmacy Creatinine Clearance (Chem N/A [facility] Protein [Mass/volume] in Ser um or PlasmaOrdered By: Josh Melvin on 09-30-2022 Protein [Mass/Vol] 6.7 g/dL 6.1-7.9 [facility] Serum or plasma alanine cullen otransferase measurement without P-5'-P (enzymatic activiOrdered By: Josh Melvin on 09-30-2022 ALT No additional P-5'-P [Catalytic activity/Vol] 19 U/L 10-60 [facility] Serum or plasma albumin/glob ulin mass ratioOrdered By: Josh Melvin on 09-30-2022 Albumin/Globulin [Mass ratio] 1.2 {ratio} [facility] Serum or plasma alkaline juliette sphatase measurement (enzymatic activity/volume)Ordered By: Josh Melvin on 09-30-2022 ALP [Catalytic activity/Vol] 78 U/L 32-92 [facility] Serum or plasma anion gap de terminationOrdered By: Josh Melvin on 09-30-2022 Anion gap [Moles/Vol] 19.0 mmol/L 6.0-15.0 [facility] Serum or plasma aspartate am inotransferase measurement (enzymatic activity/volume)Ordered By: Josh Melvin on 09-30-2022 AST [Catalytic activity/Vol] 17 U/L 10-42 [facility] Serum or plasma calcium ezra urement (mass/volume)Ordered By: Josh Melvin on 09-30-2022 Calcium [Mass/Vol] 9.6 mg/dL 8.2-10.2 [facility] Serum or plasma chloride brenda surement (moles/volume)Ordered By: Josh Melvin on 09-30-2022 Chloride [Moles/Vol] 94 mmol/L 95-114 [facility] Serum or plasma glucose ezra urement (mass/volume)Ordered By: Josh Melvin on 09-30-2022 Glucose [Mass/Vol] 149 mg/dL 70-100 [facility] Comment on above: ADA recommended refe rence rangeRandom Glucose Reference Range is dependent on time and content of last meal. Glucose of more than 200 mg/dL in a nonstressed, ambulatory subject supports the diagnosis of Diabetes Mellitus. Serum or plasma high density lipoprotein (HDL) cholesterol measurementOrdered By: Josh Melvin on 09-30-2022 Cholesterol in HDL [Mass/Vol] 44 mg/dL 29-71 [facility] Comment on above: HDL CHOL ATP-III CLA SSIFICATION Cardiovascular RiskHDL > or equal to 60 mg/dL LOWHDL < 40 mg/dL HIGH Serum or plasma potassium me asurement (moles/volume)Ordered By: Josh Melvin on 12-05-2022 Potassium [Moles/Vol] 4.9 mmol/L 3.5-5.1 [facility] Serum or plasma sodium measu rement (moles/volume)Ordered By: Josh Bunskylar on 09-30-2022 Sodium [Moles/Vol] 137 mmol/L 136-146 [facility] Serum or plasma total biliru bin measurement (mass/volume)Ordered By: Josh Bunting on 09-30-2022 Bilirubin [Mass/Vol] 0.7 mg/dL 0.3-1.2 [facility] Serum or plasma total carbon dioxide measurement (moles/volume)Ordered By: Josh Bunting on 09-30-2022 CO2 [Moles/Vol] 28.9 mmol/L 22.0-30.0 [facility] Serum or plasma total choles terol/high density lipoprotein (HDL) cholesterol mass ratOrdered By: Josh Melvin on 09-30-2022 Cholesterol.total/Chol esterol in HDL [Mass ratio] 3.5 {ratio} <5.0 [facility] Serum or plasma urea nitroge n measurement (mass/volume)Ordered By: Josh Bunskylar on 09-30-2022 Urea nitrogen [Mass/Vol] 19 mg/dL 9-23 [facility] Triglyceride [Mass/volume] i n Serum or PlasmaOrdered By: Josh Bunskylar on 09-30-2022 Triglyceride [Mass/Vol] 86 mg/dL 35-149 [facility] Comment on above: TRIG ATP III CLASSIF ICATIONTRIG less than 150 mg/dL NormalTRIG 150-199 mg/dL Borderline highTRIG 200-500 mg/dL High TRIG greater than 500 mg/dL Very highStandard traceable to the Center for Disease Conrtrol and Prevention (CDC) test method. IntraOperative Documentson 0 04-25-2021 IntraOperative Documents [id number]:127 Normal [facility] Main OR Intraoperative Recor don 04-25-2021 Main OR Intraoperative Record IntraOp Document Type FT Summary Primary Physician: Kwame Yang DO Finalized Date/Time: 04/25/21 16:46:35 Pt. Name: KOKO MEIER/Sex: 1960 Male Med Rec #: [id number] Physician: Kwame Yang DO Financial #: [id number] Pt. Type: I Room/Bed: 06 Admit/Disch: 04/18/21 08:03:48 - 04/19/21 13:50:00 Institution: Case Times FT Entry 1 Patient Times In Room 04/18/21 10:01:00 Out Room 04/18/21 12:40:00 Procedure Times Start 04/18/21 10:45:00 Stop 04/18/21 12:30:00 Anesthesia Times Start 04/18/21 10:01:00 Stop 04/18/21 12:40:00 Block Timeout w/ 04/18/21 09:08:00 Anesthesia Last Modified By: Nandini Villaseñor RN 04/18/21 12:41:32 General Comments: 04/20/21 Chart open to review l annalisa koo 04/20/21 send charges. L Annalisa KOO Case Attendance FT Entry 1 Entry 2 Entry 3 Case Attendee Peterson NAVARRO, Kwame Mcgrath DO CROSSBAND LAYER, Ailyn Hankins Role Performed Anesthesiologist Surgeon - Primary CR[employer]AND LAYER/[facility] Time In 04/18/21 10:01:00 04/18/21 10:01:00 04/18/21 10:01:00 Time Out 04/18/21 12:40:00 04/18/21 12:40:00 04/18/21 12:40:00 Procedure SHOULDER TOTAL SHOULDER TOTAL SHOULDER TOTAL ARTHROPLASTY(Right) ARTHROPLASTY(Right) ARTHROPLASTY(Right) Comments supervised by Dr. Linton Last Modified By: Kasi KOO, Nandini Villaseñor RN, Nandini Villaseñor RN, Nandini Chavarria 04/18/21 12:41:34 04/18/21 12:41:34 04/18/21 12:41:34 Entry 4 Entry 5 Entry 6 Case Attendee Kasi KOO, Nandini Goldberg CROSSBAND LAYER, Christiano Ballard CROS[employer]AND LAYER, FA, Windy Sanches Role Performed Liquid Loader - Primary Scrub - Primary Staff - Other Time In 04/18/21 10:01:00 04/18/21 10:01:00 04/18/21 10:01:00 Time Out 04/18/21 12:40:00 04/18/21 12:08:00 04/18/21 12:40:00 Procedure SHOULDER TOTAL SHOULDER TOTAL SHOULDER TOTAL ARTHROPLASTY(Right) ARTHROPLASTY(Right) ARTHROPLASTY(Right) Comments Last Modified By: Nandini Villaseñor RN, RN, Britny S Ray RN, Britny S 04/18/21 12:41:34 04/18/21 12:41:34 04/18/21 12:41:34 Entry 7 Case Attendee Alvino Naegl CST Role Performed Staff - Other Time [...] Yang DO, Given Participants Jimmy Winkler CRNA, Roth CROS[employer]AND LAYER, Kasi Maciel RN, Yusuf Garner CR[employer] LAYER, Elio Burnham CR[employer] LAYER, FA, Mensa K Time Out Complete 04/18/21 [...] and tissue Entry 1 Skin Integrity Intact, [place], Warm, and Skin Abnormality No Dry (more content not included)... Normal [facility] Main OR Preoperative Recordo n 04-25-2021 Main OR Preoperative Record PreOp Document Type FT Summary Primary Physician: Kwame Yang DO Finalized Date/Time: 04/25/21 16:43:54 Pt. Name: KOKO MEIER/Sex: 1960 Male Med Rec #: [id number] Physician: Kwame Yang DO Financial #: [id number] Pt. Type: Room/Bed: [place] [address] Admit/Disch: 04/18/21 08:03:48 - 04/19/21 13:50:00 Institution: [...] By: Nandini Villaseñor RN 04/25/21 16:43 Normal Lopez [facility] Coding Summary.on 04-24-2021 Coding Summary. CD:[id number] Gh0bWw+ PGhlYWQ+YQ7NNPBgO93anCChiO8 SR2hGFQ2AXYPPWQQSKG6KRM5wtY Q5AXxbQ0FkmgMa ZzshmRGmJP55KBf7OQE0sOqyDUf cnA6beTPiP8m4MuVvZH53cE81KB ymKJZhIvC8FpMbbkpeaSUp W6zuJzEetYAqXwp+PHRhYmxlIHd mFEYeWEbxFHFbRtLzbHnsQE0cQl 9yZGVyLWNvbGxhcHNlOiBj r8yrWAFuWIgpPI6vmYjoU3NtbOE 2FVXxv7j0Ez97tRP+GKHaVNN2cN ivNVyxw945JqJlc9tzIQM1 fHRgQJuuZXT4P10ms7C8XBUhQZG cAPT1vRV7dZ3nvUewahckY6NarJ GfYaH8DBA8cIAypQ0twPfw emvkhL5mMoo+D12QQE5QQSQFKI3 UUag8M3DxTwvpxFK+DO13NFWiGN 01iYYyvPDoa3xwjRu0PnKn SRRrJGI9zOgyIIiai0QeDGBqN13 dgHByk6F8MVFuvTlkjIDcSqZlvS W6lJ0gFUwiijzvg8yiprzz Bcoli6pyqd60rT15L84fUItcASD eCHY6OPLoPXTpzIdpht2mtL8tWj 8+EJtfc8kkn8jnvIw0OrXs SJHsquUwuUwnXYQ3k5EsGr99U9T hvBcwt6VkHyi9hk31uAEbk0S4yZ J0RHuiOHMseT8lHZtwQxJ0 LIDeJrFjnQ16cYCfQBinFm3huDe xwZksDJ0dQFEzffrkIFYdjU1eNN VueXNbnPnmXX1dEQSylzfv o330RoYkVRD9OBXajJImD5NyrZ9 lSqGnIWHcUFPbN2LwzHEsPPesL3 88EWrwPjF3ANRemzZuB6To RIFyjRtqXbA5s4S4Wr9Am5Ibsxr fMHC8CFcjDFE7PdL4QqKhRmX7D1 OdYje7SKJgwFamTN1xT1Ya DOOrsflhebdxwFV0DQDuHEVdyN7 6tCTpBSkrUj5ch8H9a567FGZoFA FhhC20Xt1frObsSGJjaEKU uB4opppdr5adxrmaQnMrIJBpIFt 7XYo5EKVutRgcOnDrEPU0LdQ8WX U6iABzgJ0snCdtmisstZ2m Oyc+G41zjZ1aEYE9IXX4ojkzQAJ ojaQaVO12CM77E1WpEtyhrFJkxY U+XLOnzrItaLnaIL4nBaFk x8swh7XxJNndX3AzNPRtMRalFbh 5IKPrGLV2uDP9rY0pXYDtFDcgq8 I1jOM3N5MzvkIzde2qv6fy BLCnGVvrW36ffRFtu1K4JGJepVH 0SEMhhLajFjVnrQ86Amm+PGNvbG lim9TlYpwvl3krw9lboQi5 OlLaSBBytzYcjKayPHL2s4FeTk4 7T10aIDtmWGAjTIZaMCZsSWFovS nkdc1rlU1qKo1+PGNvbCB3 yEC3gS5uLLQcZjZ1RQvfW344VaK plXYxOvirt8goh6izrMq6UpAiSX YobxOfdOfgFYE8b6HpAd47 U57eSDevXKDxRFSvDCQzOKPadIb xsm1plJ1wUw5+IO4kh3skor73uY 48dHI+VAQfSEF0cNenNIqz ASLlcT3sAOvhIrU1ZSXjKtXvfG8 6lQHeJWtcQq1tjEzpjVxjGG5lOL Afjvrno265BlOoy8rySTZv vGUqIYwcGGB5V56af7O0IGDmYXZ uRDR9lGJ9iY9llXyrkqvuoBCdoX mszfAeiUhlRWczXDstY570 IHRvcDsnPlBhdGllbnQgTmFtZTo 4A7EbPpf8VQBhdItpUZ8bsYRpUY xgMk9jbAmdkHlmEK3tOYUd hfpyx286GsDjm0tuVUZktHTqSFu zBBP0E39kz5A0HVRsWFCpJHA5bR V3dF3adZjkyiupfWPswTig faSwvUatXSfdFVwaA071WGQfkTx nYaWypqTvXZDqoRM8ZI27HA30gY Tbs8P8yVA2M5LgFOTtjixy puhnmPE7WRKcSWOoeD71Lp3vrSt wYc9xRHCgUVT2ZXOxfBMgA7NvsS 0yPqBdCQDsIRXpG6EhrELd ZFprI253VDsiBtV1XXLbhmZsE4Q dVTOmzHjpMbU0q8M8Iw0KA9O9GX 02JO40yAXla0H3dKY1B8Cy TCZhdcimiqsdzHC1TQHuZLRhfO2 6Af1udSgiRr1qFGNxOLJ2LKVleF ToT6XryH4kXvFaIOSdNBEo V4FinIZmMTgeC348CJjrFaA7WYN fowStP1OaFCHoyNpyCsF5y3Y6Fz 1MDDx3JP39YF72gPFpx8I6 wBP3Q4AhXXDeptwhitsrwRX6OKE qMOXwzF15Ae9awCdzUc2eTGJeAU V1ALSruEXwZ0DypK0uNcDi XEJwCDWhW6UpyOFkZZqiQ776IHy wSiO6LZLvhvXyO7WhJRJebIftGh J7e6Y0Rd3GGPCdJM04JLQ9 hPI9GV26DX45U9NsPejbgJTadLF +PHRhYmxlIHdpZHRoPScxMDAlJy UhuQogYA3qAt8yOFDwLRVp pAfbpXUdKiLzi7brIMLxRDpvFA1 crPsiK6YlaWJ0KLZlv8z8Oq51J5 3rP8DhfRW+BRLqlGB7dPE2 dH8nQdFnUoF3TCseZ445AhFnyCH yGujlk2nlu8bplTn0CzD4GJNxky VzcUziOWQ4e4BdXm06A63s IHdpZHRoPSIxNSUiIHZhbGlnbj0 giK2dGr6+KCZfiJR2vDJ3iV5pLl JvNjY0QBheA800TxIojDPc Ajtug5ovm2ecaAv7QbXuDACflxE lhCdfSRY4u3NuTy43R0RjeIwxg2 WcOov0so39tHVkt0R1pWH4 D7GfBMMxygqidODctXlmZN5dIJL lsdvyIDIekM0yAZEfG0d1UhWhUx V8IGbxV4DlfwY7IVWdtCOm RBylOFC7D03cz0F2OLLpWKJnKPN 1sWC7yA0ptLgqdqiimUWvqIifjm KhwAlxBNkoUNtpJ493BWDi vLrfZICzvR4rHQSaaPAebFltUO6 iOKQmceolLpHBKO8DOGEnHKuUTf ZSRVkgUzwvdGQ+PHRkIHN0 kSemZXbiWYWmyZ7wMYJoM2g9OhO gFsD4DGklR6UnNOGpqwapPc18wH 6wYjIxBwP8XOahN3YqwqY7 ISXepAFuTNwzKEB8T66st6S4YAU hGWUyDMK1jXB5sA1utRhppgxwvG VmdDsgdmVydGljYWwtYWxp S692DBEqiMbzArPnHgQqWxH5WWq 9N3XfTmz9IOOrvHzjOL4iiSBuPV mwAc3nmRccvZslCO2rZKXx vfyaJKCsmV6tIZLchRQluOojCW8 yKDTnkfybu645JrOsEFZ1XMRttM HyD2BidS0yPeIhQGBjDTAb Y6MkpGUtSYrzA604SCuuFtX1KQQ momNgC5IpTYEmnQsdSuB4k7R1Np 42MiBZZWFyczwvdGQ+PHRk FYD7aMlfFYmcZWJflJ4pVBSmK0d 6AfQdKoG0JLcfM9FaHAKumfupNx 79rD6hMsKnRmT0BUboQ1Wq nmY4QIMbzXDhLHxdIXG6R16kc1J 3UXYfMRNvRPD6mAG6wD3xqOynvm ogbGVmdDsgdmVydGljYWwt UGtkO246DSDrySfaJf0eqXZ7H6T dClj0OYBupSmxRW6hcSVtEVsaQt 6uxTgkiSdjHD1pMWLexaed TKSbpC6dQNObrDBbgGibQD5bZAN aknkhf316QgQhNJL3VZXcdTZhV2 TlfK9mDiWaRQEdOPMdW4Zd jNXaGBwvL293DLrwVuO9ZAVsuhV rV8BtRDKrcUqqFzM4m0S1Qe4Bnw IhdYhublO7O0DvYhzmdFZ+ UT22HXSmEL23lNLwvTXkz2xbzLs 9RuJcSNJyVET2yVsbKPhli8XxIQ UyE51cwXIlz6P7HEDkxOpn aVKcVlHfsBH3xF8fYUtwsawcb6r vqgpsSvfgj4hxmm86zT69U07aIQ dpZHRoPSIzMCUiIHZhbGln rd7dgG8bZy2+LQEdrLU0kVS4xQ2 qRkFgEcO6XNetM553YhKigBFqJo ilr5qjz0zebDk4QkMnXUMn uoOtfIrrHFE8y8KlRo92W40uYNd aZNVoUSBfXNDkNUPekAukyy1kpO 9wIi8+NQ5yw7jwhc19vM14 dHI+CPPnZEY8iCmyWLnlCCOzwP4 fARdlNrY7FGZrMjZdgG07qIQmQO thNf1vzTwlaMsmAL0kULAg hxziu308TjAme5pqTPOdpTPcJVh sZIM1J56il7O1ZVEfODOiRUN6wZ V3kI2saJqqfexhvJOapLfb hrOzvNzaZDxbDTfxV779YYDqtAo uMyTndJGiU2dixaCJYE4iLkflkT Q+NFYoVFC8mHxzOXmqCIEo xZ6qSOZxC6f1YfTkGaU7ZVzzJ9C tbiR4IHUemXJzBTWogEDAsI9nou csj8emoqjkJdKmICXvMGr7 MTx4JHJajYjaExXeSHN9OiW9ESP 8rPFkfG1qfKezannktT1zPju+Rk lOOjwvdGQ+JPJxFDR7gPku AJqrOUHqmN0sJXHwP5v0LqBlVdG 2FWefM2AckdT1HVKdtASvVBIroX VRlJ9rdaohc2nwjsrtZsHx EMUmURh9LSk4JTHwjZfvKwMkAXR 8VoB7EUX8lGZevH6yxCctrmfkoR 9wOyc+TVJOOjwvdGQ+PHRk ERW5cSnbRTqeXXHmmD6gRVDjR8g 8SqSgXcP5YKiyI2LdokR4RSLvvK NoUUScbFGKhH1lzebab0jh wgtlPzFuMXUtOGp6ERx9BQGjpKx sFpYnSAZ0SrR3ERO0jPMnjB4teX uxtclgeF3tXnq+NBS6GNG1 ZY93ZQ81U0AmVhajmEHdmGU+PHR hYmxlIHdpZHRoPScxMDAlJyBzdH oaGJ8sDl1pRCDxGFLrkHbf cHNl (more content not included)... Normal [facility] Operative Reporton Operative Report Patient: SANTIAGO MEIER Age: 60 years Sex: Male : [...] preparations for the proposed operation continued.. Normal [facility] Comment on above: Result Comment: Elec [...] list: All Problems Arthritis / SNOMED CT 2495010 / Confirmed Diabetes mellitus / SNOMED CT 143112199 / Confirmed High cholesterol / SNOMED CT 96924275 / Confirmed High blood pressure / SNOMED CT 0892448842 / Confirmed Physical Examination Vital Signs 04/18/2021 [...] br/min br/min (more content not included)... Normal [facility] Comment on above: Result Comment: Elec [...] shortness of breath. Cardiovascular: No chest pain. Hematology/Lymphatics: No bruising tendency, No bleeding tendency. Health [...] Instructions, 900 mg Oral, Refills(s) 0, Neuropathy hydrochlorothiazide-lisinop ril 12.5 mg-10 mg oral tablet: 1 tab(s), Oral, Daily, Refill(s) 0, High blood pressure metformin: 1,000 mg, Oral, BID, Refills(s) 0, Blood glucose morphine 15 mg oral tablet: 15 mg = 1 tab(s), Oral, BID, Refills(s) 0, Pain perphenazine 4 mg Tab: 4 mg = 1 tab(s), Oral, BID, Refills(s) 0, Agitation Problem list: All Problems Arthritis / SNOMED CT 1914812 / Confirmed Diabetes mellitus / SNOMED CT 125738301 / Confirmed High cholesterol / SNOMED CT 31056879 / Confirmed High blood pressure / SNOMED CT 5994015127 / Confirmed Histories Past Medical History: No active or resolved past medical history items have been selected or recorded. Family History: Hypertension Father Diabetes mellitus type 2 Mother Brother Metastatic cancer Father Procedure history: Spine orthopedic surgery, lumbar (2769838066). Spine orthopedic surgery, cervical (2964575059). Arthroscopic repair of rotator cuff (2139966078). Carpal tunnel release (086099509). Appendectomy (265575448). Partial resection of colon (68811299). Social History Social & Psychosocial Habits Alcohol [...] results Radiology results ECG interpretation Condition Plan [employer] Anesthesiologists (ASA) physical status classification: Class III. Anesthetic Preoperative Plan Anesthesia: General. , Regional Interscalene Block. Anesthetic plan, risks, benefits, and alternatives discussed with the patient and/or family. Risks discussed: nausea, vomiting, headache, sore throat, dental injury, serious complications. Patient verbalized understanding. Communication: face to face with (patient 5 minutes, Pt educated on the importance of smoking cessation.). Normal [facility] Comment on above: Result Comment: Elec tronically Signed By: Christiano Linton Jr, DO\.renard\Date and Time Signed: 04/23/21 08:08 EDT Auto Diffon 04-19-2021 Basophils/100 WBC (Bld) 0.4 % Normal 0.0-2.0 [facility] Comment on above: Order Comment: Order Added by Discern Expert. Performed By: #### 1 [id number] #### [facility] [address] [place] [address] Basophils/Leukocytes Auto (Bld) [Pure # fraction] 0.0 E9/L Normal 0.0-0.2 [facility] Comment on above: Order Comment: Order Added by Discern Expert. Performed By: #### 1 [id number] #### [facility] [address] [place] [address] Eosinophils/100 WBC (Bld) 0.1 % Normal 0.0-8.0 [facility] Comment on above: Order Comment: Order Added by Discern Expert. Performed By: #### 1 [id number] #### [facility] [address] [place] [address]21 Eosinophils/Leukocytes Auto (Bld) [Pure # fraction] 0.0 E9/L Normal 0.0-0.5 [facility] Comment on above: Order Comment: Order Added by Discern Expert. Performed By: #### 1 [id number] #### [facility] [address] [place] [address] 16566 Lymphocytes/100 WBC (Bld) 14.0 % Normal 14.0-50.0 [facility] Comment on above: Order Comment: Order Added by Discern Expert. Performed By: #### 1 [id number] #### [facility] [address] [place] [address] 52863 Lymphocytes/Leukocytes Auto (Bld) [Pure # fraction] 1.7 E9/L Normal 1.0-4.0 [facility] Comment on above: Order Comment: Order Added by Discern Expert. Performed By: #### 1 [id number] #### [facility] [address] [place] [address] 60741 Monocytes/100 WBC (Bld) 5.9 % Normal 4.0-14.0 [facility] Comment on above: Order Comment: Order Added by Discern Expert. Performed By: #### 1 [id number] #### [facility] [address] [place] [address]50 Monocytes/Leukocytes Auto (Bld) [Pure # fraction] 0.7 E9/L Normal 0.2-1.0 [facility] Comment on above: Order Comment: Order Added by Discern Expert. Performed By: #### 1 [id number] #### [facility] [address] [place] [address] Neutrophils/100 WBC (Bld) 79.6 % High 36.0-75.0 [facility] Comment on above: Order Comment: Order Added by Discern Expert. Performed By: #### 1 [id number] #### [facility] [address] [place] [address] Neutrophils/Leukocytes Auto (Bld) [Pure # fraction] 9.8 E9/L High 2.0-7.5 [facility] Comment on above: Order Comment: Order Added by Discern Expert. Performed By: #### 1 [id number] #### [facility] [address] [place] [address] BUNon 04-19-2021 Urea nitrogen [Mass/Vol] 19 mg/dL Normal 5-21 [facility] Comment on above: Performed By: #### 1 [id number] #### [facility] [address] [place] [address] CBC w/ Auto Diffon Erythrocyte distribution width (RBC) [Ratio] 13.1 % Normal 10.9-14.2 [facility] Comment on above: Performed By: #### 1 [id number] #### [facility] [address] [place] [address] Hematocrit (Bld) [Volume fraction] 42.1 % Normal 37.7-49.0 [facility] Comment on above: Performed By: #### 1 [id number] #### [facility] [address] [place] [address] Hemoglobin (Bld) [Mass/Vol] 14.0 g/dL Normal 13.5-17.5 [facility] Comment on above: Performed By: #### 1 [id number] #### [facility] [address] [place] [address] MCH (RBC) [Entitic mass] 31.5 pg Normal 27.0-34.0 [facility] Comment on above: Performed By: #### 1 [id number] #### [facility] [address] [place] [address]120 MCHC (RBC) [Mass/Vol] 33.3 g/dL Normal 31.4-36.0 [facility] Comment on above: Performed By: #### 1 [id number] #### [facility] [address] [place] [address] 797[address] MCV (RBC) [Entitic vol] 94.4 fL Normal 80.0-100.0 [facility] Comment on above: Performed By: #### 1 [id number] #### [facility] [address] [place] [address] 78598 Platelet mean volume (Bld) [Entitic vol] 9.5 fL Normal 6.4-10.8 [facility] Comment on above: Performed By: #### 1 [id number] #### [facility] [address] [place] [address] 83851 Platelets (Bld) [#/Vol] 177.0 E9/L Normal 150.0-500. 0 [facility] Comment on above: Performed By: #### 1 [id number] #### [facility] [address] [place] [address] 44662 RBC (Bld) [#/Vol] 4.5 E12/L Normal 4.3-5.9 [facility] Comment on above: Performed By: #### 1 [id number] #### [facility] [address] [place] [address] 04770 WBC corrected for nucl RBC Auto (Bld) [#/Vol] 12.3 E9/L High 4.0-11.0 [facility] Comment on above: Performed By: #### 1 [id number] #### [facility] [address] [place] [address]65 Capillary Glucose POCon 03-28 Glucose [Mass/Vol] 226 mg/dL High 55-99 [facility] Comment on above: Result Comment: Joanna daly RN/ Performed By: #### 2 [id number] #### [facility] [address] [place] [address] Glucose [Mass/Vol] 271 mg/dL High 55-99 [facility] Comment on above: Result Comment: Joanna WALDEN Performed By: #### 2 [id number] ####[facility] [address] [place] [address] Consent for Anesthesiaon Consent for Anesthesia [id number]#1.00CD:127 Normal [facility] Creatinineon 04-19-2021 Creatinine [Mass/Vol] 0.7 mg/dL Normal 0.5-1.3 [facility] Comment on above: Performed By: #### 1 [id number] #### [facility] [address] [place] [address] Discharge Instructionson Discharge Instructions [id number]#1.00CD:127 Normal [facility] Inpatient Clinical Summaryon 04-19-2021 Inpatient Clinical Summary [address] [address] Clinical Summary Person Information: Name: KOKO MEIER Age: 60 Years : 1960 Sex: Male PCP: JOSH MELVIN DO Marital Status: Phone: [phone] Race: White Ethnicity: Non- or Language: [place] Visit Id: Visit Reason: OA RIGHT SHOULDER Speciality: Acuity: Enc Type: Inpatient Med Service: Surgery Arrival: 04/18/2021 08:03:48 Discharge: Dispo Type: Address: [address] [place] [id number] Provider Notes: Diagnosis: Arthritis of shoulder region, [...] Immunizations Documented This Visit Final Med List: acetaminophen-oxycodone (Percocet 325 mg-5 mg Tab) 1-2 tab(s) [...] times a day. gabapentin 900 mg Oral. hydrochlorothiazide-lisinop ril (hydrochlorothiazide-lisino pril 12.5 mg-10 mg oral tablet) 1 Tablets [...] DO Follow up: With: Address: When: Kwame Yang [address] [place], [place] [id number] Business (1) 04/26/2021 2:45 PM Patient Education Information: Danyell Yang - Shoulder Replacement (Custom) Normal [facility] Inpatient Patient Summaryon 04-19-2021 Inpatient Patient Summary [address] [address] Patient Discharge Instructions PERSON INFORMATION [...] None Follow up: With: Address: When: Kwame Yang [address] [place] [address] [place] [address] Business (1) 04/26/2021 2:45 PM In the event that this physician does not participate in your insurance network, please consult with your insurance company to find a nearby participating provider. Comment: IRENEA JEFFREY S, have received the attached patient education materials/instructions and have verbalized understanding: Patient Signature Date Clinican/Nurse Signature Date HERE ARE THE MEDICATION CHANGES THAT OCCURRED DURING YOUR HOSPITAL STAY New Medications [facility], [address] [place], [place] [id number], [phone] acetaminophen-oxycodone (Percocet 325 mg-5 mg Tab) 1-2 tab(s) Oral q4hr; as needed as needed for pain. Refills: 0. Last Dose: Ne xt Dose: docusate (Colace 100 mg Cap) 1 Capsules By Mouth 2 times a day as needed for constipation. Refills: 0. Last Dose: Ne xt Dose: meloxicam (meloxicam 15 mg Tab) 1 Tablets By Mouth every day. Refills: 0. Last Dose: Ne xt Dose: Medications to Continue with No Changes Other Medications atorvastatin (Lipitor) 40 Milligram By Mouth every day. Last Dose: Ne xt Dose: busPIRone 30 Milligram By Mouth 3 times a day. Last Dose: Ne xt Dose: duloxetine (Cymbalta) 60 Milligram By Mouth 2 times a day. Last Dose: Ne xt Dose: gabapentin 900 mg Oral. Last Dose: Ne xt Dose: hydrochlorothiazide-lisinop ril (hydrochlorothiazide-lisino pril 12.5 mg-10 mg oral tablet) 1 Tablets By Mouth every day. Last Dose: Ne xt Dose: insulin degludec (Tresiba FlexTouch 200 units/mL subcutaneous solution) 75 Units Subcutaneous every day. Last Dose: Ne xt Dose: insulin isophane (Novolin N) 5 units AM 15 units NOON 30 units PM. Last Dose: Ne xt Dose: metformin 1,000 Milligram By Mouth 2 times a day. Last Dose: Ne xt Dose: morphine (morphine 15 mg oral tablet) 1 Tablets By Mouth 2 times a day. Last Dose: Ne xt Dose: perphenazine (perphenazine 4 mg Tab) 1 Tablets By Mouth 2 times a day. Last Dose: Ne xt Dose: No Longer Take the Following Medications celecoxib (Celebrex) 200 Milligram By Mouth 2 times a day. Comment: MEDICATION LIST PROVIDED FOR YOU IS A LIST OF YOUR CURRENT MEDICATIONS. PLEASE CARRY THIS WITH YOU AT ALL TIMES. acetaminophen-oxycodone (Percocet 325 mg-5 mg Tab) 1-2 tab(s) [...] times a day. gabapentin 900 mg Oral. hydrochlorothiazide-lisinop ril (hydrochlorothiazide-lisino pril 12.5 mg-10 mg oral tablet) 1 Tablets [...] times a day. (more content not included)... [facility] Interdisciplinary Note - Mir e Manageron 04-19-2021 Interdisciplinary Note - Research Spec PT is awake and alert in bed, await rounds with Dr. Yang. . PCP verified and Insurance information reviewed and DME discussed. Contact information provided and white board updated. No family present at this time. Pt lives with and she will transport at DC. Inpatient status reviewed, Medicare rights reviewed and form signed, original provided to pt. Declines any concerns or anticipated DC needs. Plan to DC home today 04/19. MADELINE received a phone call from hospital specialty department supervisor Viri. States pt Ct called and waiting at pharmacy for meds to be filled and having a issue with filling them as prescribed. MADELINE contacted [facility], spoke with Yifan. States pt was prescribed Percocet and already on Morphine per pain management physician, and also already on clebrex, and prescribed Meloxicam. Will need clarification from . CRM contacted Dr. Yang office, VM left , situation explained and contact information provided. CRM again called office, spoke with Dr. Yang nurse, states she already received message from MADELINE and from pharmacist, waiting on Dr. Yang to come out of room and she will have him call to claify. Aware pt Ct is standing at pharmacy waiting for approval. MADELINE contacted pt Ct [phone] and updated. Viri, hospital specialty department supervisor updated. [facility] Comment on above: Result Comment: Elec tronically Signed By: Petty KOO, Afia\.renard\Date and Time Signed: 04/19/21 15:36 EDT IntraOperative Documentson 0 04-19-2021 IntraOperative Documents [id number]#1.00CD:127 Normal [facility] IntraOperative Documents [id number]#1.00CD:127 Normal [facility] Lyteson 04-19-2021 Anion gap [Moles/Vol] 11 mmol/L Normal 6-16 [facility] Comment on above: Performed By: #### 2 [id number] #### [facility] [address] [place] [address] Chloride [Moles/Vol] 103 mmol/L Normal 101-111 [facility] Comment on above: Performed By: #### 2 [id number] #### [facility] [address] [place] [address] CO2 [Moles/Vol] 30 mmol/L Normal 21-31 [facility] Comment on above: Performed By: #### 2 [id number] #### [facility] [address] [place] [address] Potassium [Moles/Vol] 4.0 mmol/L Normal 3.5-5.3 [facility] Comment on above: Performed By: #### 2 [id number] #### [facility] [address] [place] [address] Sodium [Moles/Vol] 140 mmol/L Normal 135-145 [facility] Comment on above: Performed By: #### 2 [id number] #### [facility] [address] [place] [address] Message from Medicareon 03-28 Message from Medicare [id number]#1.00CD:127 Normal [facility] Patient Education - Texton 0 04-19-2021 Patient Education - Text [place], [place] [facility] DISCHARGE INSTRUCTIONS: SHOULDER REPLACEMENT [...] persistent vomiting. Kwame Yang, DO [facility] [address] [place] [address] Reviewed: Normal [facility] Physician Orderon 04-19-2021 Physician Order [id number]#1.00CD:127 [facility] Preoperative Documentson Preoperative Documents [id number]#1.00CD:127 [facility] Preoperative Documents [id number]#1.00CD:127 [facility] Progress Note-Physicianon Progress Note-Physician Patient: KOKO [...] Pressure 80 mmHg SpO2 92 % Normal [facility] Comment on above: Result Comment: Elec tronically Signed By: Kwame Yang DO\.br\Date and Time Signed: 04/19/21 12:55 EDT eGFRon 04-19-2021 GFR/1.73 sq M.predicted among blacks MDRD (S/P/Bld) [Vol rate/Area] mL/min/{1.73_m2} Normal >=59 [facility] Comment on above: Order Comment: Order added by Discern Expert. Result Comment: eGFR is race adjusted. AA=. Performed By: #### 2 [id number] #### [facility] [address] [place] [address] GFR/1.73 sq M.predicted among non-blacks MDRD (S/P/Bld) [Vol rate/Area] mL/min/{1.73_m2} Normal >=59 [facility] Comment on above: Order Comment: Order added by Discern Expert. Result Comment: Electronic Die Maker aracely kidney disease could be indicated at eGFR's of less than 60 mL/min/1.73m2. Kidney failure is indicated at less than 15 mL/min/1.73m2. Performed By: #### 2 [id number] #### [facility] [address] [place] [address] ABO/Rhon 04-18-2021 ABO/Rh Positive Invalid Interpretation Code [facility] Comment on above: Performed By: #### 2 [id number], [id number], [id number], [id number] ####[facility] [address] [place] [address] ABO/Rh History Checkon 04-18 ABO/Rh History Check Verified Hx Blood Type Normal [facility] Comment on above: Performed By: #### 2 960839, [id number], [id number], [id number] ####[facility] [address] [place] [address] ABSC Tubeon 04-18-2021 ABSC Tube Interp Negative Normal [facility] Comment on above: Performed By: #### 2 836599, [id number], [id number], [id number] ####[facility] [address] [place] [address] Blood Bank ID#on 04-18-2021 BBID# [id number] Invalid Interpretation Code [facility] Comment on above: Performed By: #### 2 858112, [id number], [id number], [id number] ####[facility] [address] [place] [address] Blood Bank Slipon 04-18-2021 Blood Bank Slip [id number]#1.00CD:127 Normal [facility] Capillary Glucose POCon 03-28 Glucose [Mass/Vol] 293 mg/dL High [address] Comment on above: Result Comment: Eva dav Meter Performed By: #### 2 [id number] #### [facility] [address] [place] [address] Glucose [Mass/Vol] 312 mg/dL High 55 [facility] Comment on above: Result Comment: Joanna daly RN/ Performed By: #### 2 [id number] #### [facility] [address] [place] [address] Glucose [Mass/Vol] 241 mg/dL High [facility] Comment on above: Result Comment: Eva montesd Meter Performed By: #### 2 [id number] #### [facility] [address] [place] [address] Consent for Procedure/Surger yon 04-18-2021 Consent for Procedure/Surgery [id number]#1.00CD:127 Normal [facility] Consent for Treatmenton 03-28 Consent for Treatment [id number]#1.00CD:127 Normal [facility] H&P Updateon 04-18-2021 H&P Update [id number]#1.00CD:127 Normal [facility] Main OR PACU I Recordon 03-28 Main OR PACU I Record PACU Phase I Docum ent Type FT Summary Primary Physician: Kwame Yang DO Finalized Date/Time: 04/18/21 16:44:21 Pt. Name: KOKO MEIER/Sex: 1960 Male Med Rec #: [id number] Physician: Kwame Yang DO Financial #: [id number] Pt. Type: O Room/Bed: [place] [address] Admit/Disch: 04/18/21 08:03:48 - Institution: Case Times [...] By: Keira Knox RN 04/18/21 16:44 Normal [facility] Monitor Recordon 04-18-2021 Monitor Record [id number]#1.00CD:127 Normal [facility] Operative Reporton Operative Report Patient: SANTIAGO MEIER Age: 60 years Sex: Male : [...] 3. size 3 humeral insert 4. Revers [place] size 9 stem with 39 (+2 right) [...] a Bovie was used to create a bruce at the humeral head for the position [...] the gregg (more content not included)... Normal [facility] Comment on above: Result Comment: Elec tronically Signed By: Kwame Yang DO\.renard\Date and Time Signed: 04/18/21 12:52 EDT Outpatient Surgery Discharge Instructionon 04-18-2021 Outpatient Surgery Discharge Instruction [address] [address] Patient Discharge Instructions PERSON INFORMATION Name: KOKO MEIER Date of : 1960 Current Date: 04/18/2021 09:55:09 PHYSICIANS Admitting Physician: Kwame Yang DO Discharge Diagnosis: Arthritis of shoulder region, right, degenerative KOKO MEIER has been given the following list of follow-up instructions, prescriptions, and patient education materials: IF UNABLE TO CONTACT YOUR PHYSICIAN AND YOU FEEL IT IS AN EMERGENCY, GO TO THE NEAREST EMERGENCY ROOM OR CALL 911 IRENEA JEFFREY S, have received the attached patient education materials/instructions and have verbalized understanding: May we do a follow up call? Yes No I was present when discharge instructions were given ___ Patient Signature Date Clinican/Nurse Signature Date Follow up: With: Address: When: Kwame Yang [address] [place] [address] Business (1) 04/26/2021 2:45 PM Pharmacy Information: You may receive a survey from [employer] asking you to rate your care experience. Your feedback is important and will help us understand what we do well and how we can improve the quality of care we provide to you, your loved ones and our community. It?s an honor to serve you. Thank you for choosing [facility] HERE ARE THE MEDICATION CHANGES THAT OCCURRED DURING YOUR HOSPITAL STAY Medications to Continue with No Changes Other Medications atorvastatin (Lipitor) 40 Milligram By Mouth every day. busPIRone 30 Milligram By Mouth 3 times a day. celecoxib (Celebrex) 200 Milligram By Mouth 2 times a day. duloxetine (Cymbalta) 60 Milligram By Mouth 2 times a day. gabapentin 900 mg Oral. hydrochlorothiazide-lisinop ril (hydrochlorothiazide-lisino pril 12.5 mg-10 mg oral tablet) 1 Tablets [...] times a day. PATIENT EDUCATION INFORMATION Instructions: [place], [place] [facility] DISCHARGE INSTRUCTIONS: SHOULDER REPLACEMENT [...] persistent vomiting. Kwame Yang, DO [facility] [address] [place] [address] Reviewed: Normal [facility] UA With Cult Reflexon 2020 Bilirubin Ql (U) Negative Normal Negative [facility] Comment on above: Performed By: #### 1 [id number] #### [facility] [address] [place] [address] Clarity (U) CLEAR Normal Clear [facility] Comment on above: Performed By: #### 1 [id number] #### [facility] [address] [place] [address] Color (U) YELLOW Normal Yellow [facility] Comment on above: Performed By: #### 1 [id number] #### [facility] [address] [place] [address] Epithelial cells.squamous LM.HPF (Urine sed) [#/Area] 0-2 Normal 0-2 [facility] Comment on above: Performed By: #### 1 [id number] #### [facility] [address] [place] [address] Glucose Test strip (U) [Mass/Vol] 2+ Abnormal Negative [facility] Comment on above: Performed By: #### 1 [id number] #### [facility] [address] [place] [address] Hemoglobin Ql (U) Negative Normal Negative [facility] Comment on above: Performed By: #### 1 [id number] #### [facility] [address] [place] [address] Ketones (U) [Mass/Vol] Negative Normal Negative [facility] Comment on above: Performed By: #### 1 1982556 #### [facility] [address] [place] [address] [place].plasma/[place] .RBC (Bld) [Mass ratio] 0-3 Normal 0-3 [facility] Comment on above: Performed By: #### 1 [id number] #### [facility] [address] [place] [address] Mucus Ql (Urine sed) TRACE Normal [facility] Comment on above: Performed By: #### 1 [id number] #### [facility] [address] [place] [address] Nitrite Ql (U) Negative Normal Negative [facility] Comment on above: Performed By: #### 1 [id number] #### [facility] [address] [place] [address] pH (U) 6.0 [pH] Invalid Interpretation Code 5.0-9.0 [facility] Comment on above: Performed By: #### 1 [id number] #### [facility] [address] [place] [address] Protein (U) [Mass/Vol] TRACE Abnormal Negative [facility] Comment on above: Performed By: #### 1 [id number] #### [facility] [address] [place] [address] Specific gravity (U) [Rel density] 1.020 Invalid Interpretation Code 1.005-1.03 0 [facility] Comment on above: Performed By: #### 1 [id number] #### [facility] [address] [place] [address] Type of Urine collection method Cohn Normal [facility] Comment on above: Performed By: #### 1 [id number] #### [facility] [address] [place] [address] Urobilinogen Qn (U) 0.2 {Rolando'U}/dL Normal 0.0-1.0 [facility] Comment on above: Performed By: #### 1 [id number] #### [facility] [address] [place] [address] WBC Auto Ql (U) Negative Normal Negative [facility] Comment on above: Performed By: #### 1 [id number] #### [facility] [address] [place] [address] WBC LM.HPF (Urine sed) [#/Area] 0-5 Normal 0-5 [facility] Comment on above: Performed By: #### 1 [id number] #### [facility] [address] [place] [address] XR Shoulder Complete Righton 04-18-2021 XR Shoulder Complete Right Exam Date/Time: 04/18/2021 12:58 EDT Reason for Exam: Post Op Report IMPRESSION: Postoperative changes without complication. EXAMINATION/TECHNIQUE: XR Shoulder Complete Right HISTORY: Post Op. [...] Jorge Zapien MD Transcribed by: BECKY Technologist: CC, Normal [facility] Outside Recordson 04-17-2021 Outside Records [id number]:127 Normal [facility] Outside Recordson 04-09-2021 Outside Records [id number]#[id number]:127 Normal [facility] CT Upper Extremity w/o Contr ast [...] Warren MD Transcribed by: BECKY Technologist: CONSUELO Diaz [facility] Coding Summary.on 04-04-2021 Coding Summary. CD:[id number] Gh0bWw+ PGhlYWQ+JX5KTQEhP48mlLKxsK2 VP0eNJX5YVKZBZHTEUA0PKO0faX N5WJpkQ7OfuhTz RtjobSUmGV69GMx3OEO8uSaaRBa prJ4enDExN6z3DwGnBU42yZ65DQ alZMWnSfZ1ZsHrrbpgrSEe Y0knYlKimEHhKod+PHRhYmxlIHd bHWUiEBgsCZGoPpXuhTcfQT6cQc 9yZGVyLWNvbGxhcHNlOiBj o2saWVSvCUglKK0wxMetQ3ElwBX 3RAFse7n7Oa33xIO+ILGyEVD4wT ycLOekr783WlDif8dtGXS0 hIGvKWvrZFJ2Q48he4L9UVQmVED vMMF6nKD9oY5kmDrukakwR6CvqJ FmSiA8PXH8hEGuoG7mgLct sbexxX5iXqg+E51OKA5DLYTLNT5 EBcu6T2PeBvwpsND+YN10FJEzKE 76uUZypQHrn0rndTq4LpIl SJQsOGN8hQvvJTumg1VxYTZjT48 stSTnp4V7COUslYzswGNcXfDqyK E3iC7aCWpmucwwy4gmsnlz Onppv1edsk59gH53H10zPLcxYDI hTLL1VAIuVSZphWyjii0ywR6tEb 8+OUilp9kuc8zvdHv6VgUo KPRifjCzzBtpZBZ8u4VvBa82K6F pfUemu0EaUhx9ul21fJRdh5P6fC H4CGdzFOKmdJ9nPOzmPxW1 PEYpNkPmmI33cIQySAauEu7kkDd juDciEJ0fPZHelsveMQDleI9bTM EjnEOibSjjWD8cDOZddmmb v637WhHlVEQ1PJRxfGApT6KdiN3 zVoFdABWrPFNeU8LwzTMbHHodQ3 54MXhkFpW7XCXchgTsS3Se VEVvtLxrPdO8l7W2Hn9Dh3Zuugo rBNK9UHbmHSA0DnI8PpNmKpM8A2 KdWfq7WBBhuIdlDW9cV2Bx INUreocpaxwrvFB6ITOaELNhmM2 1pMVhLEnsUe7vq0J7i204XAKtLI YwaK28Bq9pwImwMRUmrKGZ sW9ofztfy5lwbkbcLaFcYQSaTGm 1OTl1VDRpsEvcAlKpZPG8LqO4JY W2cVMikD7nqUysjlknfK4v Oyc+C00jgZ4uTAY9DOT1erefPJZ atyWfMB05RR75F2YqMbtivTBotT U+QPZtxlYpaGztXT6jIoXb f3zwr6VnBXkpV9AjIPQmHKxiGgz 7MEMoMUQ7oGH4yN5hGXUjEPqpr7 A7dQQ4O5YmwzMxue8ut8uk JQWdIGvzA02xrJDbu7B6XCQxgZK 0ODFasHouUiEinU27Dty+PGNvbG bye2HtHnvrh6ufr8sxuNt8 RtLzMMTegwGrqUvgMYQ8p2AcYn7 6E82wHDzvTVWxEFBuMGIuIVOzgT xcmd3qtV4vAl9+PGNvbCB3 qGE6hP8tTKIhGsW5TZioK830LeT obCQfZkxfc3bpe5atqBa8HqUqDM NtmrQlqRzgMON0p7FfHg54 R44lUDyiBUZeDIVqZWCsXWEokCr pck6paA3yKq7+OD7af8trbc32zL 48dHI+UKVoNVF8wHloMPdw PHQprY3vYNxwTkN1UBScJyVawE7 4gTCtFIixPj8hdHushAtgIB5wTK Oymuxhl329JrYlv6tvETMs oGHwCWeqTWV3K28yf6R4ZSCjRTC iLJJ5uIT2oQ3ytHnnvthxsFRxvQ jbmsQwgEhnLTgyDCztQ643 IHRvcDsnPlBhdGllbnQgTmFtZTo 5Z1AkQxl7KPUfqMjfUL4idGFfNP vwDs0qoYvkeWbkPG8cRVHf lazqz245RvZdf2jiMGVenCFaLFj fRKA5J96qn2N8MVLsGLZiXAR7bC F0lU2edYzhpnudtPGhsHoe stSguSrfRCeyAVocC537RIShcOc zMzRpyeFfQHBqcLZ4JZ74GY63iM Nps3O9xVR1V5VpIPLxpiqz wofqmBG5GEDnRMYtzY37Xv7kgQb rBn0sQNZdXHP9ZNUjyMRmT7UmtM 8qEcFkJSZtICJyS1ZsaTCl ZExbU197JQepVqG8JPHvdvWkP9O lYMVsmLevMfT3k9Z4Lp4MO7G6IS 55OS04qNOpq8V6nIR4U2Mo EGAhqieaupxutZP1FIFqJWNikF6 1Dc5kjXqfKx7xMYSuUJR4LRDjdG PvS1QdwF6dHfFkCRIuSSAy K5XgwIVrVVwiH192MMguPxN8ALT nswBoO7YfNKIveYggVyC3i9B3Yp 0DKTc2YP66GF36qQAwl3R0 aBI7L8HpBRWdhuzfyytbxTP6EER vENBezD06Nb6pxGogTz8mSCXaRH Y4PMQtlEWcY8YeeM0kAuYp USBuHFZcR9RwhQJdRZifP497KYt uUhF9XDPavbWcV1XcYSSgeKfzMk B0o2S4Bq1QOIMsVE78CBE7 sAR7NB51XJ57N4BfUiapvFHqdIW +PHRhYmxlIHdpZHRoPScxMDAlJy SafTilTY9sCd8qADGhKYRc jFfujONvZtZhe4jgIOKgDLjgDF1 lvZusL9TyvFU5EKEzc4p2Kq13P0 9eR5EtgZJ+GHLhpRS9fNY1 aF0tYrKaYpW4GTuwK215AxPrwQQ uCkiwk7bdh7chrBn7YvB0MTVoga IrdNegWHX2u0OnAp77M09z IHdpZHRoPSIxNSUiIHZhbGlnbj0 lsQ9qVi8+MASbuMB3qUQ5aA7bWv SbLzM3LSwrP190SePmdWJb Zzglb8ptp8veoBh3XnTwKYIfmcW egSriJPW6g5TiVn40B4OuzOdqn7 ErTza7wr54sQVoy8A6pIZ2 R5JjNJGtgbwrzDWdhUrwIF4yRPZ odajsTFUnuB1aQYXpH2a0BxXyDm S3ZLguE1YdtsH8WFTidTDi JGjkLVQ3L37ks0L6FNPrPAPwDQO 2xTX0eH9zbVoooqudoJBlkIdwaa AncDsmMRwvBGvpL700ZZGv mXefUBKgdV3mZNCgqHSgiHsyIR4 dBYObaqshGuYAVG2KDESiQTwMQs ZSRVkgUzwvdGQ+PHRkIHN0 eSkfLLrlQJKnoQ1sIYGaO2h0ChS eGbD3GRmfU5WzDKUmbmljQq90rW 7wInSyFhW6DAjiA9QdrhT8 COCcmALbHGcuHUS4Q57up9N6PWD xDOJvWMP6uRX6wA6izMnwheigvU VmdDsgdmVydGljYWwtYWxp O414UBLblQseWuAbEyMeXvG1RYe 7I5OrQdg4BFFuwDtzJG3guJNcKY saNj6bxUhwaBbvFX3jYQHp opzfMPJflD4bWLWcrWTufFifAZ9 yWSVocnbfd281HdIdMYR9CUCugS HsX2UmtB5iZfAtWFKuEYEj A3SnxZDdLMnhT838BIbmJcS4CTX trgAmN9VhLYAhvStmKrN5k1B8Ex 42MiBZZWFyczwvdGQ+PHRk SZT6mNvtFIbvDVUhkC5pQIGtZ5w 9VlSiVmH4BMtfY7DkJRVhxugdFq 91lF4pRbSqRpE2UQlsJ9Bl ccY8VZRqoAXxPDqwWOS3A24sm5F 8SBCaFTJoQLC4lJD7kF4lbCtykd ogbGVmdDsgdmVydGljYWwt JAlsA277BAKnsUazXk8zsQX5N6J mIhb8GJMtqBjsYS8xwIAeZOprPa 0haDsnvYrrTO5xCWFhfhvo OUKwbS6uQMLopFJyrJwlOI4cMYH hrputq958YiGjPCQ5TFBieVKeN7 WuuG3aZgNjEXLcJTYhN5Bc fIFwEQhqE076TPpxZeL1KLPmyfL tE8IvVOHzeEmfTzX4v5W8Vl7TfS XmKGRzNN82YA51KW93W4Ey PjwvdGFibGU+PHRhYmxlIHdpZHR jBLmcDNSeSpFkmOphDE3sSt2rXC KdSCSifPeohXQwWdDzs4xv OUElHLyvGI6wsDiaV9OfzWV8TZY js4k8Tx51H39tR3CnrQQ+PGNvbC F4oOW3qT8iUfPtQfP6HTmf L966AnYohSHnGbyrc3den8uxnGq 0QyFeVFDbkfUbzDcuHCP1l6QlQw 81V98eOVkcCPJxBHUxGLHp JADcsTbrly1qpM9mQu1+PGNvbCB 4tMK0dQ1sTmPjPfZ8FJeaI005Vo VseVNfHaweT50jW5GhaOV+ EOThYmv1EDFyyCigRK4gtNCzBAs qXu8kPNC3JiCjJqLiLOskF1ZcKG GfbtekjclmyIA4HMQyIIPw mW07Xs8luGxmSh0gBRXcOLR5BDD agGChM1IfsV7uGsTpEDUgQXDwV8 BkmLAtSMldX177DUnjNsA6 FGQbcaLcU9GfGNBvnPkcRfL1b3W 7Gg3SlVxmvGMjKH6pJvEiZGn7E9 RwQgi2HAXphFovJL4wcLJr VWpsEr2vxWusmMakJI3bOQSfkak wc150IiOuq0riIMPiiPPdFRjoUW K7L99vy7I2UUAaLPPtNDS4 nRU4qC7jnSxjuolssZQrjJtwhdV wtDbcAAxmQOyxS657TAUdaRdhVe OHRmd1M8NdGki0ZCKujCks HU2vpPSkYLyjZr3ciToycLapUN2 bSCMkhziyj749VfKmn5mjQPZkqJ NmITlxTYG4J66gk3Q1OHQe TPApZFZ1aFH3tE7zpWfdijnliGH pyCukxbUdaKwsKBtpOOojE628HW QxsAsmPj1YWqr0Y2ZnSkk4 IFYaoYgdCD9taUYrAHqfNr6otZb joUipWJ3rKQYidqkbs593MdKxm0 ppBPJlaDNwWIzcWBK9H24m k6F0JFAdAFGnMUN3kMJ4lO4vjBz nbjogbGVmdDsgdmVydGljYWwtYW owT172PBCxtExmFtNgjPId OjwvdGQ+KD97rt94X3EcAatgMfz 4EGWcAFK7aBG0rO4iRQZlFWoft5 A4vNU0Q3WabzDlpd5lj6wb YXBz (more content not included)... Normal [facility] Immunization Recordson 04-04 Immunization Records [id number]#[id number]:127 Normal [facility] ABO/Rh Retypeon 04-03-2021 ABO/Rh Retype Interp Positive Invalid Interpretation Code [facility] Comment on above: Performed By: #### 1 [id number] ####[facility] [id number] [place] [address] BUNon 04-03-2021 Urea nitrogen [Mass/Vol] 22 mg/dL High 5-21 [facility] Comment on above: Performed By: #### 1 [id number] #### [facility] [address] [place] [address] CBC w/Indiceson 04-03-2021 Erythrocyte distribution width (RBC) [Ratio] 12.7 % Normal 10.9-14.2 [facility] Comment on above: Performed By: #### 1 [id number] #### [facility] [address] [place] [address] Hematocrit (Bld) [Volume fraction] 47.4 % Normal 37.7-49.0 [facility] Comment on above: Performed By: #### 1 [id number] #### [facility] [address] [place] [address] Hemoglobin (Bld) [Mass/Vol] 16.1 g/dL Normal 13.5-17.5 [facility] Comment on above: Performed By: #### 1 [id number] #### [facility] [address] [place] [address] MCH (RBC) [Entitic mass] 31.8 pg Normal 27.0-34.0 [facility] Comment on above: Performed By: #### 1 [id number] #### [facility] [address] [place] [address] MCHC (RBC) [Mass/Vol] 34.1 g/dL Normal 31.4-36.0 [facility] Comment on above: Performed By: #### 1 [id number] #### [facility] [address] [place] [address] MCV (RBC) [Entitic vol] 93.2 fL Normal 80.0-100.0 [facility] Comment on above: Performed By: #### 1 [id number] #### [facility] [address] [place] [address] Platelet mean volume (Bld) [Entitic vol] 9.3 fL Normal 6.4-10.8 [facility] Comment on above: Performed By: #### 1 [id number] #### [facility] [address] [place] [address] Platelets (Bld) [#/Vol] 168.0 E9/L Normal 150.0-500. 0 [facility] Comment on above: Performed By: #### 1 [id number] #### [facility] [address] [place] [address] RBC (Bld) [#/Vol] 5.1 E12/L Normal 4.3-5.9 [facility] Comment on above: Performed By: #### 1 [id number] #### [facility] [address] [place] [address] WBC corrected for nucl RBC Auto (Bld) [#/Vol] 8.0 E9/L Normal 4.0-11.0 [facility] Comment on above: Performed By: #### 1 [id number] #### [facility] [address] [place] [address] Consent for Treatmenton Consent for Treatment [id number]#1.00CD:127 Normal [facility] Creatinineon 04-03-2021 Creatinine [Mass/Vol] 0.7 mg/dL Normal 0.5-1.3 [facility] Comment on above: Performed By: #### 1 [id number] #### [facility] [address] [place] [address] Glucoseon 04-03-2021 Glucose [Mass/Vol] 249 mg/dL High 55-199 [facility] Comment on above: Performed By: #### 1 [id number] #### [facility] [address] [place] [id number] 04-03-2021 HbA1c (Bld) [Mass fraction] 7.9 % High <=5.9 [facility] Comment on above: Performed By: #### 7 [id number] #### [facility] [address] [place] [address] Lyteson 04-03-2021 Anion gap [Moles/Vol] 15 mmol/L Normal 6-16 [facility] Comment on above: Performed By: #### 1 [id number] #### [facility] [address] [place] [address] Chloride [Moles/Vol] 94 mmol/L Low 101-111 [facility] Comment on above: Performed By: #### 1 [id number] #### [facility] [address] [place] [address] CO2 [Moles/Vol] 27 mmol/L Normal 21-31 [facility] Comment on above: Performed By: #### 1 [id number] #### [facility] [address] [place] [address] Potassium [Moles/Vol] 4.2 mmol/L Normal 3.5-5.3 [facility] Comment on above: Performed By: #### 1 [id number] #### [facility] [address] [place] [address] Sodium [Moles/Vol] 132 mmol/L Low 135-145 [facility] Comment on above: Performed By: #### 1 [id number] #### [facility] [address] [place] [address] XR Chest 2 Viewson XR Chest 2 [...] V. Transcribed by: BECKY Technologist: JOSE ELIAS Diaz [facility] eGFRon 04-03-2021 GFR/1.73 sq M.predicted among blacks MDRD (S/P/Bld) [Vol rate/Area] mL/min/{1.73_m2} Normal >=59 [facility] Comment on above: Order Comment: Order added by Discern Expert. Result Comment: eGFR is race adjusted. AA=. Performed By: #### 1 [id number] #### [facility] [address] [place] [address] GFR/1.73 sq M.predicted among non-blacks MDRD (S/P/Bld) [Vol rate/Area] mL/min/{1.73_m2} Normal >=59 [facility] Comment on above: Order Comment: Order added by Discern Expert. Result Comment: Electronic Die Maker aracely kidney disease could be indicated at eGFR's of less than 60 mL/min/1.73m2. Kidney failure is indicated at less than 15 mL/min/1.73m2. Performed By: #### 1 [id number] #### [facility] [address] [place] [address] Physician Orderon 03-01-2021 Physician Order [id number]#1.00CD:127 [facility] Pre-Certification Formon Pre-Certification Form [id number]#1.00CD:127 [facility] Physician Orderon 02-28-2021 Physician Order [id number]#1.00CD:127 [facility] Coding Summary.on 12-21-2020 Coding Summary. CODING DATE: [facility] STATUS: Home (Routine DC) PAYOR: [...] CphT Date Saved: 12/21/2020 01:14 pm Normal [facility] CT Upper Extremity w/ Contra st [...] Report Acromioclavicular Joint: Severe degenerative changes with [id number] contact, extensive subchondral cystic changes involving the [...] Contrast: None Contrast amount in ml's: 0 [facility] Consent for Treatmenton 11-28 Consent for Treatment [id number]#1.00CD:127 Normal [facility] Creatinineon 12-20-2020 Creatinine [Mass/Vol] 0.7 mg/dL Normal 0.5-1.3 [facility] Comment on above: Performed By: #### 2 [id number] #### [facility] [address] [place] [address] Physician Orderon 12-20-2020 Physician Order [id number]#1.00CD:127 Normal [facility] RAD - Consent to Procedureon 12-20-2020 RAD - Consent to Procedure [id number]#1.00CD:127 Normal [facility] XR Inj Shoulder Arthrogram R ighton 02-24-2021 XR Inj Shoulder Arthrogram Right Exam Date/Time: [...] shoulder joint. Patient tolerated the procedure well. Boiler Shop Mechanic image shows minimal calcification adjacent to the [...] Dose: Ka,r in mGy = 21 Normal [facility] eGFRon 12-20-2020 GFR/1.73 sq M.predicted among blacks MDRD (S/P/Bld) [Vol rate/Area] mL/min/{1.73_m2} Normal >=59 [facility] Comment on above: Order Comment: Order added by Discern Expert. Result Comment: eGFR is race adjusted. AA=. Performed By: #### 2 [id number], [id number] #### [facility] [address] [place] [address] GFR/1.73 sq M.predicted among non-blacks MDRD (S/P/Bld) [Vol rate/Area] mL/min/{1.73_m2} Normal >=59 [facility] Comment on above: Order Comment: Order added by Discern Expert. Result Comment: Electronic Die Maker aracely kidney disease could be indicated at eGFR's of less than 60 mL/min/1.73m2. Kidney failure is indicated at less than 15 mL/min/1.73m2. Performed By: #### 2 [id number], [id number] #### [facility] [address] [place] [address] Physician Orderon 12-08-2020 Physician Order [id number]#1.00CD:127 [facility] Pre-Certification Formon Pre-Certification Form [id number]#1.00CD:127 [facility] Consent for Treatmenton Consent for Treatment [id number]#1.00CD:127 [facility] RAD - MISCon 12-05-2020 RAD - MISC [id number]#1.00CD:127 [facility] RAD - MRI Screening Formon 12-05-2020 RAD - MRI Screening Form [id number]#1.00CD:127 [facility] Physician Orderon 11-29-2020 Physician Order [id number]#1.00CD:127 [facility] Pre-Certification Formon Pre-Certification Form [id number]#1.00CD:127 [facility] Vital Signs Date Time Vital Sign Value Performing Clinician Facility 01-19-2024 18:15-0400 Heart rate 90 /min DO Josh Bunting Work Phone: [facility] 01-19-2024 18:15-0400 Inhaled oxygen flow rate 1 L/min DO Josh Bunting Work Phone: [facility] 01-19-2024 18:15-0400 Respiratory rate 16 /min DO Josh Bunting Work Phone: [facility] 01-19-2024 18:15-0400 SaO2% (BldA) [Mass fraction] 92 % DO Josh Bunting Work Phone: [facility] 01-19-2024 18:00-0400 Diastolic blood pressure 65 mm[Hg] DO Josh Bunting Work Phone: [facility] 01-19-2024 18:00-0400 Systolic blood pressure 134 mm[Hg] DO Josh Bunting Work Phone: [facility] 01-19-2024 17:26-0400 Body temperature 97.5 [degF] DO Josh Bunting Work Phone: [facility] 01-19-2024 13:53-0400 Body height 167.64 cm DO Josh Bunting Work Phone: [facility] 01-19-2024 13:53-0400 Body mass index (BMI) [Ratio] 38.7 kg/m2 DO Josh Bunting Work Phone: [facility] 01-19-2024 13:53-0400 Body weight 108.86 kg DO Josh Bunting Work Phone: [facility] 11-11-2023 10:37-0500 Body height 170.2 cm Maryann Rubalcava MD Work Phone: [facility] 11-11-2023 10:37-0500 Body mass index (BMI) [Ratio] 36.02 kg/m2 Maryann Rubalcava MD Work Phone: [facility] 11-11-2023 10:37-0500 Body temperature 98.6 [degF] Maryann Rubalcava MD Work Phone: [facility] 11-11-2023 10:37-0500 Body weight 104.33 kg Maryann Rubalcava MD Work Phone: [facility] 11-11-2023 10:37-0500 Diastolic blood pressure 62 mm[Hg] Maryann Rubalcava MD Work Phone: [facility] 11-11-2023 10:37-0500 Heart rate 98 /min Maryann Rubalcava MD Work Phone: [facility] 11-11-2023 10:37-0500 Systolic blood pressure 136 mm[Hg] Maryann Rubalcava MD Work Phone: [facility] 11-03-2023 16:35-0500 Diastolic blood pressure 59 mm[Hg] DO Josh Bunting Work Phone: [facility] 11-03-2023 16:35-0500 Heart rate 91 /min DO Josh Bunting Work Phone: [facility] 11-03-2023 16:35-0500 Respiratory rate 16 /min DO Josh Bunting Work Phone: [facility] 11-03-2023 16:35-0500 SaO2% (BldA) [Mass fraction] 92 % DO Josh Bunting Work Phone: [facility] 11-03-2023 16:35-0500 Systolic blood pressure 117 mm[Hg] DO Josh Bunting Work Phone: [facility] 11-03-2023 15:41-0500 Body temperature 97.4 [degF] DO Josh Bunting Work Phone: [facility] 11-03-2023 15:11-0500 Inhaled oxygen flow rate 3 L/min DO Josh Bunting Work Phone: [facility] 11-03-2023 11:46-0500 Body height 170.18 cm DO Josh Bunting Work Phone: [facility] 11-03-2023 11:46-0500 Body mass index (BMI) [Ratio] 37.6 kg/m2 DO Josh Bunting Work Phone: [facility] 11-03-2023 11:46-0500 Body weight 109 kg DO Josh Bunting Work Phone: [facility] 10-14-2023 09:40-0500 Body height 170.18 cm Karime Nguyen Other [facility] 10-14-2023 09:40-0500 Body mass index (BMI) [Ratio] 37.9 kg/m2 Karime Nguyen Other [facility] [employer] Other 10-14-2023 09:40-0500 Body weight 109.77 kg Karime Nguyen Other [facility] [employer] Other 10-14-2023 09:40-0500 Body weight 109.76 kg DO Josh Bunting Work Phone: [facility] 10-02-2023 09:10-0500 Body height 170.18 cm DO Josh Bunting Work Phone: [facility] 10-02-2023 09:10-0500 Body mass index (BMI) [Ratio] 37.3 kg/m2 DO Josh Bunting Work Phone: [facility] 10-02-2023 09:10-0500 Body weight 108 kg DO Josh Bunting Work Phone: [facility] 10-02-2023 08:53-0500 Body temperature 98.5 [degF] DO Josh Bunting Work Phone: [facility] 10-02-2023 08:53-0500 Diastolic blood pressure 82 mm[Hg] DO Josh Bunting Work Phone: [facility] 10-02-2023 08:53-0500 Heart rate 92 /min DO Josh Bunting Work Phone: [facility] 10-02-2023 08:53-0500 Respiratory rate 18 /min DO Josh Bunting Work Phone: [facility] 10-02-2023 08:53-0500 SaO2% (BldA) [Mass fraction] 95 % DO Josh Bunting Work Phone: [facility] 10-02-2023 08:53-0500 Systolic blood pressure 169 mm[Hg] DO Josh Bunting Work Phone: [facility] 09-16-2023 09:20-0500 Body height 170.18 cm Karime Nguyen Other [employer] Other 09-16-2023 09:20-0500 Body mass index (BMI) [Ratio] 37.59 kg/m2 Karime Nguyen Other [facility] [employer] Other 09-16-2023 09:20-0500 Body weight 108.86 kg Karime Nguyen Other [facility] [employer] Other 07-29-2023 16:43-0400 Body height 167.64 cm DO Josh Bunting Work Phone: [facility] 07-29-2023 16:43-0400 Body temperature 98 [degF] DO Josh Bunting Work Phone: [facility] 07-29-2023 16:43-0400 Body weight 104.32 kg DO Josh Bunting Work Phone: [facility] 07-29-2023 16:43-0400 Diastolic blood pressure 74 mm[Hg] DO Josh Bunting Work Phone: [facility] 07-29-2023 16:43-0400 Heart rate 99 /min DO Josh Bunting Work Phone: [facility] 07-29-2023 16:43-0400 Respiratory rate 24 /min DO Josh Bunting Work Phone: [facility] 07-29-2023 16:43-0400 SaO2% (BldA) [Mass fraction] 94 % DO Josh Bunting Work Phone: [facility] 07-29-2023 16:43-0400 Systolic blood pressure 141 mm[Hg] DO Josh Bunting Work Phone: [facility] 03-26-2023 11:26-0400 Heart rate 88 /min Donny Peralta APRN.[employer] Work Phone: [facility] 03-26-2023 11:26-0400 Respiratory rate 17 /min Donny Peralta APRN.[employer] Work Phone: [facility] 03-26-2023 11:26-0400 SaO2% (BldA) [Mass fraction] 98 % Donny Peralta APRN.[employer] Work Phone: [facility] 04-16-2022 09:30-0400 Body height 170.18 cm Mariel Mcgraw Other [employer] Other 04-16-2022 09:30-0400 Body temperature 97.6 [degF] Kamsam Mcgraw Other [employer] Other 04-16-2022 09:30-0400 Diastolic blood pressure 78 mm[Hg] Kamal Chaban Other [employer] Other 04-16-2022 09:30-0400 Respiratory rate 20 /min Kamal Chaban Other [employer] Other 04-16-2022 09:30-0400 SaO2% (BldA) [Mass fraction] Kamal Chaban Other [employer] Other 04-16-2022 09:30-0400 Systolic blood pressure 154 mm[Hg] Kamal Chaban Other [employer] Other 01-08-2022 14:30-0400 Body height 170.18 cm Kamal Shariban Other [employer] Other 01-08-2022 14:30-0400 Body mass index (BMI) [Ratio] 37.27 kg/m2 Mariel Mccarthyban Other [employer] Other 01-08-2022 14:30-0400 Body temperature 97.4 [degF] Mariel Mccarthyban Other [employer] Other 01-08-2022 14:30-0400 Body weight 107.96 kg Mariel Mccarthyban Other [employer] Other 01-08-2022 14:30-0400 Diastolic blood pressure 72 mm[Hg] Mariel Mccarthyban Other [employer] Other 01-08-2022 14:30-0400 Respiratory rate 20 /min Mariel Mccarthyban Other [employer] Other 01-08-2022 14:30-0400 SaO2% (BldA) [Mass fraction] 95 % Mariel Mccarthyban Other [employer] Other 01-08-2022 14:30-0400 Systolic blood pressure 130 mm[Hg] Mariel Mccarthyban Other [employer] Other 09-06-2021 10:00-0500 Body height 170.18 cm Mariel Mccarthyban Other [employer] Other 09-06-2021 10:00-0500 Body mass index (BMI) [Ratio] 37.59 kg/m2 Mariel Mccarthyban Other [employer] Other 09-06-2021 10:00-0500 Body temperature 96.8 [degF] Mariel Mccarthyban Other [employer] Other 09-06-2021 10:00-0500 Body weight 108.86 kg Mariel Mccarthyban Other [employer] Other 09-06-2021 10:00-0500 Diastolic blood pressure 68 mm[Hg] Ulyssesal Chaban Other [employer] Other 09-06-2021 10:00-0500 Respiratory rate 20 /min Mariel Mccarthyban Other [employer] Other 09-06-2021 10:00-0500 SaO2% (BldA) [Mass fraction] 95 % Mariel Mccarthyban Other [employer] Other 09-06-2021 10:00-0500 Systolic blood pressure 136 mm[Hg] Ulyssesal Chaban Other [employer] Other 07-23-2021 10:30-0400 Body height 170.18 cm Mariel Mccarthyban Other [employer] Other 07-23-2021 10:30-0400 Body mass index (BMI) [Ratio] 38.21 kg/m2 Mariel Mccarthyban Other [employer] Other 07-23-2021 10:30-0400 Body temperature 96.1 [degF] Mariel Chaban Other [employer] Other 07-23-2021 10:30-0400 Body weight 110.68 kg Mariel Chaban Other [employer] Other 07-23-2021 10:30-0400 Diastolic blood pressure 78 mm[Hg] Ulyssesal Chaban Other [employer] Other 07-23-2021 10:30-0400 Respiratory rate 20 /min Mariel Mcgraw Other [employer] Other 07-23-2021 10:30-0400 SaO2% (BldA) [Mass fraction] 95 % Mariel Mcgraw Other [employer] Other 07-23-2021 10:30-0400 Systolic blood pressure 150 mm[Hg] Mariel Mcgraw Other [employer] Other Encounters Encounter Date Encounter Type Care Provider Facility Start: 01-26-2024 End: 01-26-2024 ambulatory YOGESH BECKER V Not Available Start: 01-19-2024 End: 01-19-2024 ambulatory Josh Bunting Facility:[facility] Start: 01-19-2024 End: 01-19-2024 Admission to same day surgery center DO Josh Bunting Work Phone: [facility] [address] [place] Start: 01-19-2024 End: 01-19-2024 ambulatory DO Josh Bunting Work Phone: [facility] Work Phone: Start: 01-12-2024 End: 01-12-2024 ambulatory Josh Bunting Facility:[facility] Start: 01-12-2024 Encounter for preprocedural laboratory examination Yogesh Becker [facility] Start: 01-12-2024 End: 01-12-2024 ambulatory DO Josh Bunting Work Phone: [facility] Work Phone: Start: 01-12-2024 End: 01-12-2024 Patient encounter procedure DO Josh Bunting Work Phone: [facility] [employer] Work Phone: Start: 01-08-2024 End: 01-08-2024 ambulatory FEROZ PATEL Not Available Start: 01-06-2024 End: 01-06-2024 ambulatory YOGESH PÉREZS Morris Not Available Start: 12-16-2023 End: 12-16-2023 ambulatory Josh Bunting Facility:[facility] Start: 12-16-2023 End: 12-16-2023 ambulatory DO Josh Bunting Work Phone: [facility] Work Phone: Start: 12-16-2023 End: 12-16-2023 Patient encounter procedure DO Josh Bunting Work Phone: [facility] [address] Work Phone: Start: 12-08-2023 End: 12-09-2023 ambulatory Savanna Mcclain MD Facility:[facility] Start: 11-25-2023 End: 11-25-2023 ambulatory Oliver Kerr Facility:[facility] Start: 11-25-2023 End: 11-25-2023 ambulatory DO Josh Bunting Work Phone: [facility] Work Phone: Start: 11-25-2023 End: 11-25-2023 Patient encounter procedure DO Josh Bunting Work Phone: [facility]-CT Scan [place] Work Phone: Start: 11-24-2023 End: 11-24-2023 ambulatory Oliver Vandemere Facility:[facility] Start: 11-24-2023 End: 11-24-2023 ambulatory DO Josh Bunting Work Phone: [facility] Work Phone: Start: 11-24-2023 End: 11-24-2023 Patient encounter procedure DO Josh Bunting Work Phone: [facility] [place] Work Phone: Start: 11-17-2023 End: 11-18-2023 ambulatory Savanna Mcclain MD Facility:[facility] Start: 11-11-2023 End: 11-12-[address] [facility] Start: 11-11-2023 End: 11-11-2023 Office consultation new/estab patient 80 min Maryann Rubalcava MD Work Phone: [facility] Francine Comment on above: Cervical myelopathy (CMS/HCC) (Primary Dx); Sagittal plane imbalance; 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; Lumbar stenosis with neurogenic claudication Start: 11-10-2023 End: 11-10-2023 ambulatory YOGESH BECKER V Not Available Start: 11-03-2023 End: 11-03-2023 ambulatory Yogesh Becker Facility:[facility] Start: 11-03-2023 End: 11-03-2023 Admission to same day surgery center DO Josh Bunting Work Phone: [facility] [place] Start: 11-03-2023 End: 11-03-2023 ambulatory DO Josh Bunting Work Phone: [facility] Work Phone: Start: 10-23-2023 End: 10-23-2023 ambulatory Yogesh Becker Facility:[facility] Start: 10-23-2023 End: 10-23-2023 ambulatory DO Josh Bunting Work Phone: [facility] Work Phone: Start: 10-23-2023 End: 10-23-2023 Patient encounter procedure DO Josh Bunting Work Phone: [facility] [employer] Work Phone: Start: 10-14-2023 Office outpatient vi sit 40 minutes Karime VAUGHN [facility] Neurosurgery Start: 10-14-2023 End: 10-14-2023 ambulatory YOGESH BECKER V [facility] [place] [employer] Other Start: 10-14-2023 End: 10-14-2023 Patient encounter procedure DO Josh Bunting Work Phone: [facility] Work Phone: Start: 10-09-2023 End: 10-09-2023 ambulatory FEROZ PATEL Not Available Start: 10-02-2023 End: 10-02-2023 ambulatory Yogesh Becker Facility:[facility] Start: 10-02-2023 End: 10-02-2023 Admission to same day surgery center DO Josh Bunting Work Phone: [facility] [place] Start: 10-02-2023 End: 10-02-2023 ambulatory DO Josh Bunting Work Phone: [facility] Work Phone: Start: 09-30-2023 End: 09-30-2023 ambulatory Savanna Mcclain MD Facility:[facility] Start: 09-29-2023 End: 09-30-2023 ambulatory Savanna Mcclain MD Facility: [facility] Start: 09-26-2023 End: 09-26-2023 ambulatory IMTIAZ ZAIDI Not Available Start: 09-23-2023 End: 09-23-2023 ambulatory Yogesh Becker Facility:[facility] Start: 09-23-2023 End: 09-23-2023 ambulatory DO Josh Bunting Work Phone: [facility] Work Phone: Start: 09-23-2023 End: 09-23-2023 Patient encounter procedure DO Josh Bunting Work Phone: [facility] [employer] Work Phone: Start: 09-22-2023 End: 09-23-2023 ambulatory Savanna Mcclain MD Facility:[facility] Start: 09-16-2023 End: 09-16-2023 ambulatory Karime Nguyen Other [employer] Other Start: 09-16-2023 Office outpatient ne w 45 minutes Karime Nguyen [facility] Neurosurgery Start: 09-16-2023 End: 09-16-2023 Patient encounter procedure DO Josh Bunting Work Phone: [facility] Work Phone: Start: 08-11-2023 End: 08-12-2023 ambulatory Savanna Mcclain MD Facility:[facility] Start: 08-11-2023 End: 08-11-2023 ambulatory DO Josh Bunting Work Phone: [facility] Work Phone: Start: 08-11-2023 End: 08-11-2023 Patient encounter procedure DO Josh Bunting Work Phone: [facility] [place] Work Phone: Start: 08-01-2023 End: 08-01-2023 ambulatory Josh Bunting Facility:[facility] Start: 08-01-2023 End: 08-01-2023 Patient encounter procedure DO Josh Bunting Work Phone: [facility]XRay [place] Work Phone: Start: 07-29-2023 End: 07-29-2023 Emergency department patient visit Nery Casanova Facility:[facility] Start: 07-29-2023 End: 07-29-2023 Emergency department patient visit DO Josh Bunting Work Phone: [facility]-Emergency Room Work Phone: Start: 06-12-2023 End: 06-12-2023 ambulatory Mariel Mcgraw Other [facility] [employer] Other Start: 06-12-2023 Telephone encounter Mariel Mcgraw [facility] Start: 04-21-2023 End: 04-21-2023 ambulatory Josh Bunting Facility:[facility] Start: 04-21-2023 End: 04-21-2023 ambulatory DO Josh Bunting Work Phone: [facility] Work Phone: Start: 04-21-2023 End: 04-21-2023 Patient encounter procedure DO Josh Bunting Work Phone: [facility] [place] Work Phone: Start: 03-26-2023 End: 03-26-2023 ambulatory DONNY PERALTA Facility:[facility] Start: 03-26-2023 End: 03-26-2023 Patient encounter procedure Donny Peralta [employer] L[employer]ER.DREDGE OR BARGE [employer] HAND Work Phone: Otolaryngology Comment on above: Laryngeal candidiasi s (Primary Dx); Glossitis; Oral candidiasis; Hoarseness of voice; History of alcohol abuse Start: 02-10-2023 End: 02-10-2023 ambulatory Josh Bunting Facility:[facility] Start: 02-10-2023 End: 02-10-2023 ambulatory DO Josh Bunting Work Phone: [facility] Work Phone: Start: 02-10-2023 End: 02-10-2023 Patient encounter procedure DO Josh Bunting Work Phone: [facility]XRay [place] Work Phone: Start: 12-31-2022 End: 12-31-2022 ambulatory DO Josh Bunting Work Phone: [facility] Work Phone: Start: 12-31-2022 End: 12-31-2022 Patient encounter procedure DO Josh Bunting Work Phone: [facility] [address] Work Phone: Start: 11-06-2022 End: 11-06-2022 ambulatory DO Josh Bunting Work Phone: [facility] Work Phone: Start: 11-06-2022 End: 11-06-2022 Patient encounter procedure DO Josh Bunting Work Phone: [facility]-XRay [facility] Work Phone: Start: 09-30-2022 End: 09-30-2022 ambulatory DO Josh Bunting Work Phone: [facility] Work Phone: Start: 09-30-2022 End: 09-30-2022 Patient encounter procedure DO Josh Bunting Work Phone: [facility]Lab [facility] Start: 06-19-2022 End: 06-19-2022 Patient encounter procedure DO Josh Bunting Work Phone: [facility]XRay [facility] Start: 06-05-2022 End: 06-05-2022 ambulatory Alexis Abdi Other [employer] Other Start: 06-05-2022 Telephone encounter Alexis Trinidad [facility] Therapist Start: 04-16-2022 End: 04-16-2022 ambulatory Kamal Chaban Other [employer] Other Start: 04-16-2022 Office outpatient vi sit 25 minutes Kamal Chaban [facility] Start: 01-08-2022 End: 01-08-2022 ambulatory Kamal Chaban Other [employer] Other Start: 01-08-2022 Office outpatient vi sit 25 minutes Kamal Chaban [facility] Start: 12-07-2021 End: 12-07-2021 ambulatory Kamal Chaban Other [employer] Other Start: 12-07-2021 Telephone encounter Kamal Chaban [facility] Start: 11-09-2021 ([facility] C Vac) [facility] Co vid Vaccine Courtney Espino [facility] Start: 11-09-2021 End: 11-09-2021 ambulatory Courtney Espino Other [employer] Other Start: 09-06-2021 End: 09-06-2021 ambulatory Mariel Mcgraw Other [employer] Other Start: 09-06-2021 Office outpatient vi sit 25 minutes Kamsam Mccarthyban [facility] Start: 07-26-2021 Telephone encounter Kamsam Mcgraw [facility] Start: 07-23-2021 Office outpatient ne w 45 minutes Kamsam Mccarthyban [facility] Procedures Date Procedure Procedure Detail Performing Clinician Start: 01-19-2024 Ventral hernioplasty DO Josh Bunting Work Phone: Start: 12-16-2023 MRI of cervical spin e without contrast DO Josh Bunting Work Phone: Start: 11-25-2023 CT of head without contrast DO Josh Bunting Work Phone: Start: 11-11-2023 XR SCOLIOSIS 2 VIEW (NON EOS) MARYANN RUBALCAVA Start: 11-03-2023 Repair of left ingui nal hernia using surgical mesh DO Josh Bunting Work Phone: Start: 08-11-2023 X-ray of cervical spine DO Johs Bunting Work Phone: Start: 08-11-2023 Radiography of [...] Screening for malign ant neoplasm of colon [facility] Start: 11-11-2029 DTaP/Tdap/Td Vaccine s (2 - Td or Tdap) DTaP/Tdap/Td Vaccines (2 - Td or Tdap) [facility] Start: 01-19-2024 End: 01-19-2024 [facility] Start: 11-24-2023 [facility] Start: 11-11-2023 End: 11-11-2024 MR Cervical spine WO contrast MR cervical spine wo IV contrast Imaging Routine Cervical myelopathy (CMS/HCC) Expected: 11/11/2023, Expires: 11/11/2024 [facility] Work Phone: Comment on above: Expected: 11/11/2023 , Expires: 11/11/2024 Start: 11-11-2023 End: 11-11-2024 X-ray scoliosis 2 View (NON EOS) [facility] Service Area Work Phone: Comment on above: Expected: 11/11/2023 , Expires: 11/11/2024 Start: 11-03-2023 [facility] Start: 11-03-2023 [facility] Start: 10-02-2023 Repair of left ingui nal hernia using surgical mesh OR Inguinal Hernia Repair W/Mesh Graft (Left) [facility] Start: 10-02-2023 End: 10-02-2023 [facility] Start: 06-27-2023 Influenza vaccination C [facility] Start: 03-26-2023 End: 05-26-2023 Comprehensive metabolic 2000 panel - Serum or Plasma [facility] Work Phone: Comment on above: Expected: 03/26/2023 , Expires: 05/26/2023 Start: 10-27-2022 DEPRESSION ASSESSMENT DEPRESSION ASS ESSMENT [facility] Start: 01-04-2022 COVID-19 VACCINE (3 - Booster for Dereck series) COVID-19 VACCINE (3 - Booster for Dereck series) [facility] Start: 08-09-2020 Pneumococcal Vaccine : 65+ Years (2 - PCV) Pneumococcal Vaccine: 65+ Years (2 - PCV) [facility] Start: 08-09-2020 Pneumococcal Vaccine : Pediatrics (0 to 5 Years) and At-Risk Patients (6 to 64 Years) (2 - PCV) Pneumococcal Vaccine: Pediatrics (0 to 5 Years) and At-Risk Patients (6 to 64 Years) (2 - PCV) [facility] Start: 2013 PROSTATE CANCER SCREENING DISCUSSION PROSTATE CANCER SCREENING DISCUSSION [facility] Start: 2008 SHINGRIX VACCINE (1 of 2) SHINGRIX VACCINE (1 of 2) [facility] Start: 2008 Zoster Vaccines (1 of 2) Zoste r Vaccines (1 of 2) [facility] Start: 2003 COLOGUARD (FIT-DNA) COLOGUARD (FIT-D NA) [facility] Start: 2003 Colonoscopy COLONOSCOPY [facility] Start: 2003 COLORECTAL CANCER SCREENING COLORECTAL CANCER SCREENING [facility] Start: [address] COLONOGRAPHY [facility] Start: 2003 DIABETES SCREEN DIABETES SCREEN [facility] Start: 2003 FECAL OCCULT BLOOD FECAL OCCULT BLOO D [facility] Start: 2003 SIGMOIDOSCOPY SIGMOIDOSCOPY [facility] Start: 1993 LIPID SCREEN LIPID SCREEN [facility] Start: 1977 Urine microalbumin profile DTAP,TDAP,TD (1 - Tdap) [facility] Start: 1977 Urine screening for protein Diabetes: Urine Protein Screening [facility] Start: 1976 HEPATITIS C SCREENING HEPATITIS C [facility] Start: 1976 Hepatitis C screening Hepatitis C [facility] Start: 1976 HIV SCREENING HIV SCREENING [facility] Start: 1968 Diabetic foot examination Diabetes: Foot Exam [facility] Start: 1968 Glaucoma screening Diabetes: R etinopathy Screening [facility] Start: 1959 MMR Vaccines (1 of 1 - Standard series) MMR Vaccines (1 of 1 - Standard series) [facility] Start: 1958 Annual wellness visit Medicare Initial Physical (IPPE) [facility] Start: 1958 Hemoglobin A1c measurement Diabetes: Hemoglobin A1C [facility] Start: 1958 HIV screening HIV Screening [facility] Start: 1958 Lipid panel Lipid Panel [facility] Start: 1958 Screening for malign ant neoplasm of colon [facility] Methylmalonate [Moles/volume] in Serum or Plasma [facility] Patient Education [facility] Work Phone: Patient referral [facility] Work Phone: [facility] Immunizations Immunization Date Immunization Notes Care Provider Fa cility 11-09-2021 COVID-19 (Moderna), Age 12+ DO Josh Bunting Work Phone: [facility] 11-09-2021 COVID-19 Sharad Espino Other [facility] 10-16-2021 influenza, injectabl e, quadrivalent, contains preservative Maryann Rubalcava MD Work Phone: [facility] Work Phone: 10-16-2021 influenza virus vaccine, unspecified formulation Maryann Rubalcava MD Work Phone: [facility] Work Phone: 01-04-2021 COVID-19 (J&J) DO Josh [employer] Work Phone: [facility] 01-04-2021 COVID-19 Vaccine Dereck - Documentation Purposes Only Mariel Mcgraw Other [facility] 08-18-2020 Seasonal, quadrivalent, recombinant, injectable influenza vaccine, preservative free Maryann Rubalcava MD Work Phone: [facility] 07-27-2020 influenza, seasonal, injectable Maryann Rubalcava MD Work Phone: [facility] 11-11-2019 tetanus toxoid, reduced diphtheria toxoid, and acellular pertussis vaccine, adsorbed Kamal Chaban Other [employer] Other 08-16-2019 influenza, seasonal, injectable, preservative free Maryann Rubalcava MD Work Phone: [facility] Work Phone: 08-09-2019 influenza, injectabl e, quadrivalent, preservative free Maryann Rubalcava MD Work Phone: [facility] 08-09-2019 pneumococcal polysaccharide vaccine, 23 valcheyanne Rubalcava MD Work Phone: [facility] 08-08-2019 pneumococcal polysaccharide vaccine, 23 valent Maryann Rubalcava MD Work Phone: [facility] Work Phone: 09-08-2018 influenza, injectabl e, quadrivalent, contains preservative Maryann Rubalcava MD Work Phone: [facility] 07-29-2017 influenza, injectable,quadrivalen t, preservative free, pediatric Kamal Chaban Other [employer] Other 10-14-2009 pneumococcal polysaccharide vaccine, 23 valcheyanne Rubalcava MD Work Phone: [facility] Work Phone: NEGATED: Highlighted row has not occurred!07-29-2017 influenza, injectable,quadrivalen t, preservative free, pediatric Kamal Chaban Other [employer] Other Payers Date Payer Category Payer Self-pay [id number] 2022 Private Health Insurance 2021 Medicare [id number] 2021 Medicare [id number] [id number] 2021 Medicare [id number] [id number] 2021 Medicare [id number] 2.16.840.1.638560.19 1958 Unknown [id number] 2.16.840.1.039184.3.579.2.124 2 1958 Unknown [id number] 2.16.840.1.628547.3.579.2.124 2 1958 Unknown [id number] 2.16.840.1.810436.3.579.2.196 1958 Unknown [id number] 2.16.840.1.975875.3.579.2.196 1958 Unknown [id number] 2.16.840.1.667016.3.579.2.196 1958 Unknown [id number] 2.16.840.1.371050.3.579.2.196 1958 Unknown [id number] 2.16.840.1.403293.3.579.2.196 1958 Unknown [id number] 2.16.840.1.511177.3.579.2.196 1958 Unknown [id number] 2.16.840.1.148231.3.579.2.125 9 1958 Unknown [id number] 2.16.840.1.159648.3.579.2.125 9 1958 Unknown [id number] 2.16.840.1.423507.3.579.2.125 9 1958 Unknown [id number] 2.16.840.1.827624.3.579.2.125 9 1958 Unknown [id number] 2.16.840.1.374251.3.579.2.125 9 1958 Unknown [id number] 2.16.840.1.044097.3.579.2.125 9 1958 Unknown [id number] 2.16.840.1.816666.3.579.2.125 9 Medicare Medicare [id number] Medicare MMO MCR Adv PFFS [id number] Medicare [employer] MCR [id number] Unknown [id number] 2.16.840.1.322470.3.579.2.531 Unknown [id number] 2.16.840.1.336168.3.579.2.531 Unknown [id number] 2.16.840.1.219419.3.579.2.531 Unknown [id number] 2.16.840.1.738334.3.579.2.531 Unknown [id number] 2.16.840.1.503006.3.579.2.531 Unknown [id number] 2.16.840.1.688418.3.579.2.531 Unknown [id number] 2.16.840.1.412867.3.579.2.531 Unknown [id number] 2.16.840.1.387494.3.579.2.531 Unknown [id number] 2.16.840.1.143732.3.579.2.531 Unknown [id number] 2.16.840.1.567752.3.579.2.531 Unknown [id number] 2.16.840.1.535100.3.579.2.531 Unknown [id number] 2.16.840.1.404182.3.579.2.531 Unknown [id number] 2.16.840.1.515834.3.579.2.531 Unknown [id number] 2.16.840.1.954639.3.579.2.531 Worker's Compensation [employer] [facility] [id number] Social History Date Type Detail Facility Sex Assigned At [facility] [employer] Other Start: 05-22-2021 End: 05-22-2021 Tobacco smoking status NJIS Smoker (finding) [facility] Start: 1960 Sex Assigned At Male F [facility] Start: 03-26-2023 End: 01-19-2024 Tobacco smoking status NJIS Ex-smoker [facility] History of tobacco use Cigarette Smoker [facility] Start: 03-26-2023 End: 11-11-2023 Tobacco use and exposure Smokeless tobacco non-user [facility] Start: 03-26-2023 Alcohol intake Current drinke r of alcohol (finding) [facility] Start: 03-26-2023 [facility] Start: 1960 Sex Assigned At Not on file [facility] Start: 11-11-2023 Tobacco smoking status [facility] Never smoked tobacco [facility] Work Phone: Start: 11-01-2023 End: 11-11-2023 Exposure to SARS-CoV-2 (event) Not sure [facility] Medical Equipment Procedure Code Equipment Code Equipment Origin al Text Equipment Identifier Dates Repair, hernia, inguinal, with mesh Abdominal hernia surgical mesh, synthetic polymer, non-bioabsorbable [id number] [facility] Start: 11-03-2023 [id number] Start: 08-14-2023 Goals Date Patient Goal Desired Activity /State Clinical Notes 04-17-2021 to 11-11-2023 Maryann Rubalcava MD - 11/11/2023 10:00 AM EST Note Date & Type Note Facility 11-11-2023 History of Present illness Narrative It was a pleasure to see Mr. Meier at the [facility] at [facility]. Patient is a 62-year-old male with [...] L2-L3 and L1-L2. 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 [...] All questions were answered. Maryann Rubalcava MD, [facility] [employer] Producer of Neurological Surgery [facility] Attending Surgeon Director - Minimally Invasive Spine Surgery [place], [place] Some of this note was completed using [employer] voice recognition technology and sometimes the software misinterprets words. This may include unintended errors with respect to translation of words, typographical errors or grammar errors which may not have been identified prior to finalization of the chart note. Please take this into account when reading this note documented in this encounter [facility] Work Phone: 10-14-2023 Evaluation note Encounter [...] consult. Sep, Lumbar radiculopathy (ICD-10 - M54.16) 19 Sep, 2023 Spinal stenosis of lumbar region with neurogenic claudication (ICD-10 - M48.062) [employer] Other 12-05-2023 NoteProcedure Performed by: Savanna Mcclain M.D. Procedure: Placement of Casanova [employer] Impulse Generator Battery under fluoroscopic guidance *Battery [...] by Johny MATUTE, Savanna Darden 09/30/23 13:[address] [facility] 09-30-2023 NoteHistory of Present Illness The [...] signed by Savanna Mcclain MD 09/30/23 13:[address] [facility] 09-16-2023 Evaluation note* Encounter Date Diagnosis [...] weeks. Aug, Lumbar radiculopathy (ICD-10 - M54.16) [employer] Other 08-17-2023 Evaluation note* Encounter Date Diagnosis Assessment Notes Treatment Notes Treatment Clinical Notes May, Gastroesophageal ref lux disease, unspecified whether esophagitis present (ICD-10 - K21.9) [employer] Other 05-31-2023 NoteHNO ID: [id number] Author: Donny Peralta APRN.[facility] Service: ? Author Type: Nurse Practitioner Type: [...] 2 to 3 weeks time. Donny Peralta APRN.[facility] CC: Josh Melvin [facility]05-31-2023 History of Present illness Narrative* Donny Peralta APRN.[facility] - 03/26/2023 11:14 AM EDT Mr. Meier [...] weeks time. Donny Peralta APRN.ALEX CC: Josh Kasi Melvin DO [facility]* Encounter Date Diagnosis Assessment Notes Treatment Notes Treatment Clinical Notes Mar, Obstructive sleep ap dee (ICD-10 - G47.33) Please get a compliance report now and before next visit Mar, Gastroesophageal ref lux disease, unspecified whether esophagitis present (ICD-10 - K21.9) Mar, Lung nodule (ICD-10 - R91.1) [employer] Other 03-15-2022 Evaluation note* Encounter Date Diagnosis [...] be after his CT in 1 year [employer] Other 01-14-2022 Evaluation note* Encounter Date Diagnosis Assessment Notes Treatment Notes Treatment Clinical Notes Oct, Encounter for immunization (ICD-10 - Z23) Patient presents for COVID-19 vaccination BOOSTER. Pre-screening form answers evaluated with patient. Patient denies current illness or allergic reaction to component of COVID-19 vaccine. Patient provided with current copy of EUA. [employer] Other 09-27-2021 Evaluation note* Encounter Date Diagnosis Assessment Notes Treatment Notes Treatment Clinical Notes Jun, Lung nodule (ICD-10 - R91.1) Jun, Chronic cough (ICD-1 0 - R05) Jun, Obstructive sleep ap dee (ICD-10 - G47.33) Jun, Gastroesophageal ref lux disease, unspecified whether esophagitis present (ICD-10 - K21.9) [employer] Other 06-24-2021 NotePatient: KOKO MEIER Age: 60 [...] mg, 1 tab(s), Oral, BID, 0 [facility]ill[facility]) [facility]Result Comment: Electronically Signed By: Kwame Yang DO\.br\Date and Time Signed: 04/19/21 12:56 EDT 04-17-2021 [id number]:127MitulS[facility] BaltimoreEvaluation noteNo InformationNort [employer] Other Evaluation noteNoE[employer] Other Evaluation noteNo assessment information available [facility] Work Phone: Evaluation note* Diagnosis Laryngeal candidiasis- Primary Other candidiasis of other specified sites Glossitis Oral candidiasis Candidiasis of mouth Hoarseness of voice Dysphonia History of alcohol abuse Nondependent alcohol abuse, in remission [facility] this [facility] Diagnosis Cervical myelopathy (CMS/HCC)- Primary Cervical spondylosis with myelopathy Sagittal plane imbalance Other curvatures of spine associated with other conditions 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 Lumbar stenosis with neurogenic claudication documented in this encounter [facility] Work Phone: History general Narrative - [...] finger 10/2019 Hospitalization History see sx history [employer] Other History general Narrative - [facility]ortedNortLe[facility] [address] [employer] Other Hisgqmi general Narrative - Reported* Type Description Date [...] finger 10/2019 Hospitalization History see sx history [facility] [employer] Other Hospital Discharge instructions Additional Instructions Please call Dr. Becker' office to reschedule your surgery.[facility] Work Phone: Hospital Discharge instructions Additional Instructions 1. No driving if taking narcotic pain medication. 2. No lifting more than 20 pounds for 3 weeks. 3. May shower.[facility] Work Phone: Hospital Discharge instructions Additional Instructions 1. No driving if taking narcotic pain medication. 2. No lifting more than 20 pounds for 4 weeks. 3. May shower. 4. Can use abdominal binder as needed for comfort.[facility] Work Phone: Progress note Author Yogesh Becker [facility] October 02, 2023 9:46am Note Date/Time October 02, 2023 9 :46am [facility] [address] [place] [address] Progress Note Signed Patient: Koko Meier MR#: [id number] : 1960 Acct:[id number] Age/Sex: 62 / M Adm Date: 3 Loc: [place] Room: Type: [facility] Attending Dr: Yogesh Becker MD Copies to: ~ Date of Service: 10/02/2023 Progress Narrative Note PROGRESS NOTE Progress Note: Patient's tox screen today is positive for cocaine. Surgery will be canceled. Patient is told to call the office this afternoon to reschedule the surgery. Documented By: Yogesh Becker MD 10/02/23 0945 Signed By: <Electronically signed by MD Yogesh Becker> 10/02/23 0946 [facility] Work Phone: Summary Purpose Family History No Family History Records Found Relationship Condition Age at Onset Recorded Date/T mckenna Not Specified Diabetes mellitus Unknown brother Diabetes mellitus Unknown father Malignant neoplasm of urinary bladder Unk nown Relationship Condition Age at Onset Recorded Date/T mckenna Not Specified Diabetes mellitus Unknown brother Diabetes mellitus Unknown father Malignant neoplasm of urinary bladder Unk nown History of stroke Unknown father Unknown Malignant neoplasm Unknown Hypertension Unknown Unknown sibling Heart disease Unknown Diabetes mellitus Unknown Relationship Condition Age at Onset Recorded Date/T mckenna Not Specified Diabetes mellitus Unknown brother Diabetes mellitus Unknown father Malignant neoplasm of urinary bladder Unk nown Hypertension Unknown History of stroke Unknown father Unknown Not Specified Unknown sibling Diabetes mellitus Unknown Heart disease Unknown Advance Directives No Advanced Directives Records Found [...] hernia inguinal hernia e78.2 e11.9 z79.89;Z12.5;R25.1;R41.3 r41.3 Chief Complaint Hernia Hernia Follow Up Lumbar Pain inguinal hernia inguinal hernia e78.2 e11.9 z79.89;Z12.5;R25.1;R41.3 r41.3 g95.9 Chief Complaint inguinal hernia inguinal hernia e78.2 e11.9 z79.89;Z12.5;R25.1;R41.3 r41.3 g95.9 ventral hernia Chief Complaint inguinal hernia inguinal hernia e78.2 e11.9 z79.89;Z12.5;R25.1;R41.3 r41.3 g95.9 ventral hernia ventral hernia Reason for Referral Specialty Diagnoses / Procedures Referred By Contac t Referred To Contact Radiology Diagnoses Cervical myelopathy ([facility]) Procedures MR cervical spine [place] [id number] [address] Department [place] [address] Referral ID Status Reason Start Date Expiration Date Visits Requested Visits Authorized Pending Review Perform Procedure 11/11/2023 11/10/2024 1 1 Specialty Diagnoses / Procedures Referred By Contac t Referred To Contact Radiology Diagnoses Sagittal plane imbalance Procedures X-ray scoliosis 2 View (NON EOS) [place] [id number] [address] Department [place] [address] Referral ID Status Reason Start Date Expiration Date Visits Requested Visits Authorized Authorized Perform Procedure 11/11/2023 11/10/2024 1 1 Reason surgical consult Diagnosis 1 Lumbar myelopathy (G 95.9) Referral Organization [facility] Referring Provider First Name Karime Referring Provider Last Name Marleni Referring Provider Specialty Nurse Pract itioner Referred Organization [facility] Referred Provider MARYANN RUBALCAVA Referred Address [address] [place] [address] ,[place], [place],[address] Referred Provider Specialty Neurosurgery Referral Priority Routine General Notes Juana Scanlon 03:14:14 PM >received today, holding referral until office note is locked Juana Scanlon 10/16/2023 08:38:30 AM >note not locked yet Reason evaluate and treat Diagnosis 1 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) Referral Organization [facility] u[facility] Referring Provider First Name Karime Referring Provider Last Name Marleni Referring Provider Specialty Nurse Pract gonzalez Referred Organization [facility] Referred Address [address],[place], [place],[address] Referred Provider Specialty Physical The rapist Referral Priority Routine Additional Source Comments (unrecognized sect ion and content) No Status Records FoundNo Status Records FoundNo Status Records FoundNo Status Records FoundNo Status Records FoundNo Status Records Found INFORMATION SOURCE (unrecogn ized section and content) DATE CREATED AUTHOR 04/27/2021 [facility] DATE CREATED AUTHOR AUTHOR'S ORGANIZ ATION 04/15/2023 [facility] DATE CREATED AUTHOR AUTHOR'S ORGANIZ ATION 11/16/2023 [facility] DATE CREATED AUTHOR AUTHOR'S ORGANIZ ATION 12/14/2023 [facility] DATE CREATED AUTHOR AUTHOR'S ORGANIZ ATION 01/26/2024 [facility] EPIC DATE CREATED AUTHOR AUTHOR'S ORGANIZ ATION 01/30/2024 [facility] REASON FOR VISIT (unrecogniz ed section and content) Reason Comments Mouth lesion on left side Specialty Diagnoses / Procedures Referred By Contact Referred To Contact Ent - Otolaryngology / ENT-OTOLARYNGOLOGY Diagnoses Mouth Lesion on Left side of jaw Procedures NEW [facility] PATIENT Josh Melvin DO [address] [place] [address] Donny Peralta, [employer].[facility] [address] [place] [address] Referral ID Status Reason Start Date Expiration Date V isits Requested Visits Authorized [id number] Authorized 03/25/2023 10/26/2023 99 99 Reason Comments Neck Pain Back Pain Care Teams (unrecognized sec tion and content) Team Status: Inactive Member Role Status Dates Josh Melvin DO Primary Care Provider, Tino peter Active Team Status: Active Member Role Status Dates Josh Bunting , DO Primary Care Provider Active Team Status: Inactive Member Role Status Dates Joshana Velascoting , DO Primary Care Provider Active Flip [...] Velascoting , DO Primary Care Provider Active Errol Humphrey MD Attending Provider Active Team Status: Inactive Member Role Status Dates Josh Bunting , DO Primary Care Provider Active Nery Casanova [facility]- Emergency Provider Active Team Status: Inactive Member Role Status Dates Joshana Velascoting , DO Primary Care Provider Active Savanna [...] Olegario , DO Primary Care Provider Active Start: October 23, 2023 End: October 23, 2023 Yogesh Becker MD Attending Provider Active Sta rt: October 23, 2023 End: October 23, 2023 Team Status: Inactive Member Role Status Dates Josh Velascoskylar , DO Primary Care Provider Active Start: [...] November 25, 2023 End: November 25, 2023 Team Status: Inactive Member Role Status Dates Josh Melvin , DO Primary Care Provider Active Start: December 16, 2023 End: December 16, 2023 Maryann Rubalcava MD Attending Provider Active Start: December 16, 2023 End: December 16, 2023 Team Status: Inactive Member Role Status Dates Joshana Melvin , DO Primary Care Provider Active Start: January 12, 2024 End: January 12, 2024 Yogesh Becker MD Attending Provider Active Sta rt: January 12, 2024 End: January 12, 2024 Team Status: Inactive Member Role Status Dates Josh Melvin , DO Primary Care Provider Active Start: January 19, 2024 End: January 19, 2024 Yogesh Becker MD Attending Provider Active Sta rt: January 19, 2024 End: January 19, 2024 Goals (unrecognized section and content) Goals may be documented in a n alternate section Source Comments (unrecognize d section and content) In the event this informatio n is protected by the Federal Confidentiality of Alcohol and Drug Abuse Patient Records regulations: The Federal rules restrict any use of the information to criminally investigate or prosecute any alcohol or drug abuse patient.[facility] FOR RECORDS PERTAINING TO PATIENTS WHO [...] BE BASED ON THE PRIMARY CLINICAL RECORDS. [facility] [employer] [facility]. provides no warranty or guarantee of the accuracy or completeness of information in this document.
[2024-02-16 07:16] VITALS: BP 167/95; PULSE 101; TEMP 36.2; O2SAT 100
[2024-02-16 07:22] LABS: Glucometer 350 mg/dL (74-106)
[2024-02-16 08:23] VITALS: BP 189/72; PULSE 85; O2SAT 90
[2024-02-16 08:25] VITALS: PULSE 90; O2SAT 90
--- NOTE | 2024-02-16 08:25 | W.PM.PROCNOT ---
Date of procedure: 02/16/24 Pre-op diagnosis: Lumbar stenosis with neurogenic claudication Post-op diagnosis: same as pre-op Procedure: Procedure: Bilateral L1-2 transforaminal epidural steroid injection Medications: Bupivacaine 0.25% 2cc, lidocaine 2% 1cc, dexamethasone 5mg The patient was seen and examined in the preoperative holding area.? Informed consent was obtained and placed on the chart.? Patient was brought to the medical procedure unit and placed in the prone position where a timeout was completed verifying the correct patient, procedure site, position, and planned special equipment using sterile aseptic technique.? Under direct fluoroscopic visualization a 25-gauge Quincke tipped spinal needle was advanced at level left L1-2 to the designated neural foramen where contrast dye was injected to show adequate spread.? There was no evidence of vascular or adverse uptake.? Epidural spread was appreciated.? The above-mentioned injectate was then placed in a 1.5 mL aliquot preceded by negative aspiration.? The needle was removed. The same procedure, at the same level, was completed on the opposite side. ? Patient was taken to the postprocedural recovery area and monitored for an appropriate length of time before found suitable for discharge in the accompaniment of a responsible adult. Anesthesia: Local Surgeon: Savanna Mcclain Pathology: none sent Condition: stable Disposition: no change
[2024-02-16] MEDS: IOHEXOL 240 MG/ML - 10 ML VIAL 24 MG INJ (08:27)
[2024-02-16] MEDS: DEXAMETHASONE SOD PHOS 10 MG/ML VIAL 5 MG INJ (08:27)
[2024-02-16] MEDS: 0.9 % SODIUM CHLORIDE 10 ML SYRINGE - SALINE FLUSH INJ (08:27)
[2024-02-16] MEDS: BUPIVACAINE HCL 0.25% PF 25 MG/10 ML VIAL INJ (08:27)
[2024-02-16 08:28] VITALS: BP 222/102
[2024-02-16] MEDS: LIDOCAINE HCL 2% PF 100 MG/5 ML VIAL 2 ML INJ (08:28)
== END 2024-02-16 08:31 | disposition home or self-care (01) ==
LOC: SURGOUT 07:04
PROVIDERS: PCP Family Medicine; Visit Provider Anesthesiology
DX: M48.062 Spinal stenosis, lumbar region with neurogenic claudication (principal); Z79.4 Long term (current) use of insulin
CPT/HCPCS: 36415; 64483; 82948; J1100; Q9966

== ENCOUNTER 2024-03-03 07:53 | Outpatient (OUT) | payer MEDICARE, SELFPAY ==
--- NOTE | 2024-03-03 08:01 | P.CN_ITS ---
Consult Note: HPI Data of Consult Patient: known to practice within the last 3 years Requesting Physician: Rosemary Kwon NP Primary Care Provider: JOSH MELVIN Consult Narrative Reason for consult: f/u Narrative: Koko Hernandez a pleasant 63 year old male presents for evaluation of chronic pain. Today pain in neck 5/10 and low back, increasing to 8/10 with standing twisting bending lifting activity, improved with medications, sitting, heat.Recent bilateral L1-2 TFESI providing >50% improvement ongoing. Patient continues to find benefit from SCS. Patient denies loss of bowel/bladder. Patient finds mild benefit from cymbalta 60mg daily, gabapentin 600mg 1.5 pills TID his pharmacy did not give him the 1200mg TID, flexeril 10mg TID PRN. [facility] and patient is likely a surgical candidate however he is transferring care to Dr Nation with upcoming appointment next week. Previously underwent bilateral C3-4 C4-5 MBB #1 with >80% improvement in axial neck pain and would like to proceed with MBB #2 working towards RFA. cc:: CC: Rosemary Kwon NP Review of Systems ROS Status of ROS 10 or more systems reviewed and unremark able except as noted in history and below Musculoskeletal Reports: back pain and neck pain PFSH PFSH Medical History Fusion of spine, cervical region ?M43.22 - Fusion of spine, cervical region (ICD-10) Lumbar post-laminectomy syndrome ?M96.1 - Postlaminectomy syndrome, not elsewhere classified (ICD-10) Anxiety ?F41.9 - Anxiety disorder, unspecified (ICD-10) HTN (hypertension) ?I10 - Essential (primary) hypertension (ICD-10) High cholesterol ?E78.00 - Pure hypercholesterolemia, unspecified (ICD-10) Diabetes ?E11.9 - Type 2 diabetes mellitus without complications (ICD-10) Diverticulosis ?K57.90 - Diverticulosis of intestine, part unspecified, without perforation or abscess without bleeding (ICD-10) Surgical History History of shoulder surgery ?Z98.890 - Other specified postprocedural states (ICD-10) History of colon resection ?Z90.49 - Acquired absence of other specified parts of digestive tract (ICD- 10) History of lumbar surgery ?Z98.890 - Other specified postprocedural states (ICD-10) Social History Gender Identity: male Meds Home Medications and Allergies Home Medications ?Medication ?Instructions ?Recorded ?Confirmed ?Type atorvastatin 40 mg tablet 40 mg PO DAILY 08/14/23 12/08/23 History buspirone 30 mg tablet 30 mg PO TID 08/14/23 12/08/23 History celecoxib 200 mg capsule 200 mg PO DAILY 08/14/23 12/08/23 History cyclobenzaprine 10 mg tablet 10 mg PO TID 08/14/23 12/08/23 History duloxetine 60 mg capsule,delayed 60 mg PO BID 08/14/23 12/08/23 History release empagliflozin 10 mg tablet 10 mg PO DAILY 08/14/23 12/08/23 History (Jardiance) insulin aspart U-100 100 unit/mL 1 sliding scale dose subcut 08/14/23 12/08/23 History (3 mL) subcutaneous pen (Novolog USEASDIRECTD FlexPen U-100 Insulin aspart) insulin degludec 200 unit/mL (3 20 unit subcut DAILY 08/14/23 12/08/23 History mL) subcutaneous pen (Tresiba FlexTouch U-200 insulin) lisinopril 20 1 tab PO DAILY 08/14/23 12/08/23 History mg-hydrochlorothiazide 12.5 mg tablet metformin 1,000 mg tablet 1,000 mg PO DAILY 08/14/23 12/08/23 History omeprazole 40 mg capsule,delayed 40 mg PO DAILY 08/14/23 12/08/23 History release gabapentin 600 mg tablet 900 mg PO TID 02/06/24 02/06/24 History Allergies Allergy/AdvReac Type Severity Reaction Status Date / Time No Known Drug Allergies Allergy Verified 11/17/23 07:16 Exam Constitutional Documenting provider has reviewed patient's vital signs: yes Common normals: no apparent distress, oriented x3, healthy appearing, alert and well nourished General appearance: cooperative HENMT Common normals: normocephalic, hearing grossly normal bilaterally and moist oral mucous membranes Head and scalp: normocephalic Eye Common normals: PERRL Pupil: PERRL Neck & C-Spine Common normals: full ROM General: normal visual inspection Cervical spine: cervical ROM abnormal, pain with cervical ROM, cervical spine tenderness and paracervical muscle tenderness Other: positive facet loading bilaterally sensation intact in BUE, strength 5/5 negative hoffmans negative spurlings. no radiculopathy Chest Common normals: inspection of chest normal Respiratory Common normals: normal respiratory effort, no retractions and no use of accessory muscles Back & Pelvis Lumbar spine/lower back: ROM limited, pain with ROM and straight leg raise negat alex bilaterally Sacroiliac joints: SI joints normal Extremity Common normals: normal to inspection and full ROM Neuro Common normals: oriented x3, CN's II-XII intact bilaterally, moves all extremities, no focal motor deficits, no sensory deficits noted and deep tendon reflexes 2+ bilaterally Sensorium/orientation: alert Gait (neuro): antalgic Motor exam: strength 5/5 throughout and no movement abnormalities noted Psych Common normals: mental status grossly normal, thought process normal, cooperative, affect normal, speech normal and activity/motor behavior normal Speech: normal speech Thought process: normal thought process Results Additional Findings Additional findings: If on a controlled substance or opioids, I have checked an [place]AR[place] report on this patient and there are no aberrancies noted in the prescribing history.??If on a controlled substance or opioid a drug screen was completed and reviewed within the last year, and if there has not been a drug screen completed we ordered one today to monitor higher risk, state monitored pain medication use. As part of providing excellent, safe, comprehensive care, the following was completed at our patient's visit: 1. A medication reconciliation and review to ensure accurate knowledge of current/active medications, including asking our patients to inform us about any [id number] medications or herbal remedies/nutritional supplements/alternative remedies. 2. A review to specifically ensure our patients have had annual screening for screening for depression, screening for tobacco use, and screening for unhealthy alcohol use. For concerning screenings had a discussion with the patient, provided patient education, and recommended follow-up with primary care provider when appropriate. If patient noted with a risk of falling, they received educat ion on strength, gait, and balance training to prevent future risk of falling. Assessment and Plan Assessment and Plan (1) Cervical spondylosis: Assessment and Plan: The patient has had over 3 months of moderate to severe neck pain with functional impairment and inadequate response to conservative care including NSAIDS (unless there are contraindication such as concurrent blood thinners), multiple oral or topical pain medications, and home exercise program/physical therapy.? Patient has completed >6 weeks of guided home exercise program and/or formal physical therapy program without relief of their symptoms.? I have reviewed the imaging of the cervical spine and no red flags were identified (2) Cervical post-laminectomy syndrome: (3) Cervical stenosis of spinal canal: (4) Cervicalgia: (5) Lumbar postlaminectomy syndrome: (6) Lumbar stenosis with neurogenic claudication: (7) Status post insertion of spinal cord stimulator: Plan bilateral C3-4 C4-5 MBB #2 working towards RFA, risks vs benefits discussed, procedure to be completed under fluoroscopy guidance continue current medications, tolerating well without side effects continues to find functional benefit f/u with neurosurgery as planned for lumbar spine finding mild relief from SCS f/u 1 week after each injection
== END 2024-03-03 07:54 | disposition home or self-care (01) ==
LOC: PM 07:54
PROVIDERS: PCP Family Medicine; Visit Provider Nurse Practitioner
DX: M47.812 Spondylosis without myelopathy or radiculopathy, cervical region (principal); M96.1 Postlaminectomy syndrome, not elsewhere classified; M48.02 Spinal stenosis, cervical region; M48.062 Spinal stenosis, lumbar region with neurogenic claudication; Z96.82 Presence of neurostimulator
CPT/HCPCS: G0463

== ENCOUNTER 2024-03-15 09:30 | Day surgery (SDC) | payer MEDICARE, SELFPAY ==
--- OUTSIDE RECORDS SUMMARY | 2024-03-15 09:54 | XMS_ITS | CCD ---
Author Organization [facility] Care Team Providers Care Network Security Officer Name Role Phone Mariel Mcgraw Unavailable Courtney Espino Unavailable Bunting, DO Josh Primary Care Provider [phone] Flip Diamond Attending Provider Alexis Abdi Unavailable Bunting, DO Josh Primary Care Provider Bunting, DO Josh Attending Provider MD Yunier Ariza Attending Provider Bunting, DO Josh Primary Care Provider MD Mariel Mcgraw Attending Provider Bunting, DO Josh Primary Care Provider [phone] MD Mariel Mcgraw Attending Provider [phone] MD Errol Humphrey Attending Provider Unavailable Primary Care Provider Unavailabl e DONNY PERALTA Attending Unavailable BUNTING, JOSH RAY Referring Unavailable DONNY PERALTA Referring Unavailable Bunting, DO Josh Primary Care Provider Bunting, DO Josh Attending Provider [phone] Bunting, DO Josh Primary Care Provider PORTER CasanovaP-AMAIRANI [facility] Emergency Provider Bunting, DO Josh Attending Provider MD Savanna Mcclain Attending Provider Bunting, DO Josh Primary Care Provider Bullvin, STAFF PHYSICIAN- Nery Hankins Emergency Provider Bunting, DO Josh Attending Provider MD Savanna Mcclain Attending Provider MD Yogesh Becker Attending Provider Karime Nguyen Unavailable Bunting, DO Josh Primary Care Provider Unavailable Primary Care Provider Unavailabl e MARYANN RUBALCAVA Attending Unavailable MARYANN RUBALCAVA Referring Unavailable Bunting, DO Josh Primary Care Provider Bunting, DO Josh Attending Provider MD Oliver Kerr Referring Provider MD Oliver Kerr Attending Provider MD Maryann Rubalcava Attending Provider [phone] Bunting, DO Josh Primary Care Provider MD Yogesh Becker Attending Provider Bunting, DO Josh Attending Provider MD Oliver Kerr Referring Provider MD Oliver Kerr Attending Provider [phone] MD Maryann Rubalcava Attending Provider Bunting, Josh Attending Unavailable Bunting, Josh Admitting [...] Attending Unavailable Becker, Yogesh Admitting Unavailable Becker, Oygesh Attending Unavailable Bunting, Josh Primary Care Unavailable BeckerYogesh kamara Admitting Unavailable BeckerYogesh Attending Unavailable Bunting, Josh Primary Care Unavailable Bunting, Josh Primary Care Unavailable BeckerYogesh Attending Unavailable BeckerWingt Admitting Unavailable Bullimore, Nery E Attending Unavailable Bunting, Josh Primary Care Unavailable Bullimore, Nery E Admitting Unavailable [place], Oliver Referring Unavailable Bunting, Josh Primary Care Unavailable Bunting, Josh Attending Unavailable Bunting, Josh Admitting Unavailable [place], Oliver Attending Unavailable [place], Oliver Admitting Unavailable Bunting, Josh Primary Care Unavailable Bunting, Josh Primary Care Unavailable KasliwalMaryann K Attending Unavailable KasMaryann freeman K Admitting Unavailable Bunting, Josh Primary Care Unavailable Hedche, Errol Feng Attending Unavailable HedErrol bolton Admitting Unavailable Giedraitis , Andrius Darden Attending Unavailable Giedraitis , Andrius Adelso Attending Unavailable Giedraitis MD, Andrius Adelso Attending Unavailable Giedraitis MD, Andrius Adelso Attending Unavailable Giedraitis MD, Andrius Vaubrey Attending Unavailable Giedraitis MD, Andrius Vytautedison Attending Unavailable Giedraitis MD, Andrius Adelso Attending Unavailable BECKER YOGESH Caceres Attending Unavailable BUNTING, JOSH R Referring Unavailable BECKER YOGESH Caceres Attending Unavailable IMTIAZ ZAIDI Attending Unavailable KARIME NGUYEN Referring Unavailable FEROZ PATEL Attending Unavailable BUNTING, JOSH R Referring Unavailable BECKER YOGESH Caceres Attending Unavailable BECKER YOGESH Caceres Attending Unavailable FEROZ PATEL Attending Unavailable BECKER YOGESH Caceres Attending Unavailable Medications Current Medications Medication Drug [...] on above: take 1 capsule by [facility] twice a day Oral for 28 Days clotrimazole 10 mg oral lozenge (1 source) Azole Antifungal Start: 023 End: clotrimazole (MYCELEX) 10 mg bud Use [...] 23, 2023 1:00am take 1 tablet by [facility] every twenty-four hours Cyclobenzaprine HCl 10 [...] Active Start: 04-20-[address] [facility] twice daily Duloxetine (Cymbalta) 60 mg Capsule,Delayed Release(Dr/Ec) Active 60 MG PO Twice daily April 20, 2019 12:00am Start: 04-20-2019 Duloxetine (Cy mbalta) 60 mg Capsule,Delayed Release(Dr/Ec) Active 30 MG PO Twice daily April 20, 2019 12:00am take [address] [facility] every twenty-four hours DULoxetine HCl 60 [...] mouth. FreeStyle René reader (FreeStyle René 2 [place]) misc (1 source) Start: 07-25-2023 End: 07-24-2024 FreeStyle René reader (FreeStyle René 2 [place]) misc 1 each by Does not apply [...] Diuretic, Angiotensin Converting Enzyme Inhibitor Start: 09-23-20 23 take 1 tablet by mouth once daily in the morning Lisinopril-Kathryn chlorothiazide Active 1 TAB PO Every morning [...] sources) Long-term current use of insulin; Translations: [nursing home (current) use of insulin] Episodic Other connective [...] Ql (U)Ord ered By: Giuseppe Desouza on 01-19-2024 Amphetamines Ql (U) Negative Negative [facility] Barbiturates [Presence] in U rine by Screen methodOrdered By: Giuseppe Desouza on 01-19-2024 Barbiturates Screen Ql (U) Negative Negative [facility] Benzodiazepines Screen Ql (U )Ordered By: Giuseppe Desouza on 01-19-2024 Benzodiazepines Ql (U) Negative Negative [facility] Benzoylecgonine [Presence] i n Urine by Screen methodOrdered By: Giuseppe Desouza on 01-19-2024 Benzoylecgonine Screen Ql (U) Negative Negative [facility] Cannabinoids [Presence] in U rine by Screen methodOrdered By: Giuseppe Desouza on 01-19-2024 Cannabinoids Screen Ql (U) Positive Negative [facility] Comment on above: These are unconfirme d results and should not be used for legal purposes. Drug Cut-Off Concentration: AMPH 1000 ng/mL ZE 200 ng/mL DUANE 200 ng/mL COCM 300 ng/mL OP 300 ng/mL PCP 25 ng/mL THC 20 ng/mL Drug Screen,Urineon 01-19-20 24 Amphetamine Screen,Urine Negative Normal Negative [facility] Comment on above: Order Comment: Comme nt stat when patient gets to prep Performed By: #### T SH3, [id number] #### [facility] [address] [place] [address] [place] #### METH #### [facility] , Barbiturate Screen,Urine Negative Normal Negative [facility] Comment on above: Order Comment: Comme nt stat when patient gets to prep Performed By: #### T SH3, [id number] #### [facility] [address] [place] [address] [place] #### METH #### [facility] , Benzodiazepines Screen,Urine Negative Normal Negative [facility] Comment on above: Order Comment: Comme nt stat when patient gets to prep Performed By: #### T SH3, [id number] #### [facility] [address] [place] [address] [place] #### METH #### [facility] , Cannabinoid Screen,Urine Positive High Negative [facility] Comment on above: Order Comment: Comme nt stat when patient gets to prep Result Comment: Thes e are unconfirmed results and should not be used for legal purposes. Drug Cut-Off Concentration: AMPH 1000 ng/mL ZE 200 ng/mL DUANE 200 ng/mL COCM 300 ng/mL OP 300 ng/mL PCP 25 ng/mL THC 20 ng/mL PERFORMED BY: [place] [address] PATHOLOGIST PILOT SAFETY INSPECTOR CLEVE CANDELARIA M.D. Performed By: #### T SH3, [id number] #### [facility] [address] [place] [address] [place] #### METH #### [facility] , Cocaine Screen,Urine Negative Normal Negative [facility] Comment on above: Order Comment: Comme nt stat when patient gets to prep Performed By: #### T SH3, [id number] #### [facility] [address] [place] [address] [place] #### METH #### [facility] , Opiate Screen,Urine Negative Normal Negative [facility] Comment on above: Order Comment: Comme nt stat when patient gets to prep Performed By: #### T SH3, [id number] #### [facility] [address] [place] [address] [place] #### METH #### [facility] , Phencyclidine Screen,Urine Negative Normal Negative [facility] Comment on above: Order Comment: Comme nt stat when patient gets to prep Performed By: #### T SH3, [id number] #### [facility] [address] [place] [address] [place] #### METH #### [facility] , Glucose Glucometer (dC) [M ass/Vol]Ordered By: Yogesh Becker on 01-19-2024 Glucose [Mass/Vol] 160 mg/dL [facility] Comment on above: Random Glucose Refer ence Range is dependent on time and content of last meal. Glucose of more than 200 mg/dL in a nonstressed, ambulatory subject supports the diagnosis of Diabetes Mellitus. Glucose Poct Glucometerson 0 01-19-2024 Glucose [Mass/Vol] 160 mg/dL Normal [facility] Comment on above: Result Comment: [place] Glucose Reference Range is dependent on time and content of last meal. Glucose of more than 200 mg/dL in a nonstressed, ambulatory subject supports the diagnosis of Diabetes Mellitus. PERFORMED BY: [place] [address] PATHOLOGIST PILOT SAFETY INSPECTOR CLEVE CANDELARIA M.D. Performed By: #### T SH3, [id number] #### [address] #### METH #### [facility] , Commemt1 Glu2: Cleaned Meter Normal [facility] Comment on above: Result Comment: PERF ORMED BY: [place] [address] PATHOLOGIST PILOT SAFETY INSPECTOR CLEVE CANDELARIA M.D. Performed By: #### G LULS #### Point of Care testing , Glucose [Mass/Vol] 162 mg/dL Normal [facility] Comment on above: Result Comment: Shelley om Glucose Reference Range is dependent on time and content of last meal. Glucose of more than 200 mg/dL in a nonstressed, ambulatory subject supports the diagnosis of Diabetes Mellitus. Performed By: #### G LULS #### Point of Care testing , Commemt1 Glu2: Cleaned Meter [facility] Comment on above: Result Comment: PERF ORMED BY: [place] [address] PATHOLOGIST PILOT SAFETY INSPECTOR CLEVE CANDELARIA M.D. Performed By: #### T SH3, [id number] #### [place] [address] [place] #### METH #### [facility] , Glucose [Mass/Vol] 250 mg/dL Normal [facility] Comment on above: Result Comment: Shelley om Glucose Reference Range is dependent on time and content of last meal. Glucose of more than 200 mg/dL in a nonstressed, ambulatory subject supports the diagnosis of Diabetes Mellitus. Performed By: #### T SH3, [id number] #### [place] [address] [place] #### METH #### [facility] , No Panel InformationOrdered By: Yogesh Becker on 01-19-2024 Bedside Glucose Comment Glu2: cleaned meter [facility] Opiates [Presence] in Urine by Screen methodOrdered By: Giuseppe Desouza on 01-19-2024 Opiates Screen Ql (U) Negative Negative [facility] Phencyclidine Screen Ql (U)O rdered By: Giuseppe Desouza on 01-19-2024 Phencyclidine Ql (U) Negative Negative [facility] Basic Metabolic Panelon 12-25 Anion gap [Moles/Vol] 9.2 mmol/L Normal 6.0-15.0 [facility] Comment on above: Performed By: #### C BC, BMP #### [address] Calcium [Mass/Vol] 9.3 mg/dL Normal 8.6-10.3 [facility] Comment on above: Result Comment: PERF ORMED BY: [place] [address] PATHOLOGIST PILOT SAFETY INSPECTOR CLEVE CANDELARIA M.D. Performed By: #### C BC, BMP #### [address] Chloride [Moles/Vol] 98 mmol/L Normal 98-107 [facility] Comment on above: Performed By: #### C BC, BMP #### [facility] [address] [place] [address] [place] CO2 [Moles/Vol] 33.8 mmol/L High 21.0-31.0 [facility] Comment on above: Performed By: #### C BC, BMP #### [facility] [address] [place] [address] [place] Creatinine [Mass/Vol] 0.82 mg/dL Normal 0.70-1.30 [facility] Comment on above: Performed By: #### C BC, BMP #### [facility] [address] [place] [address] [place] GFR/1.73 sq M.predicted MDRD (S/P/Bld) [Vol rate/Area] mL/min/{1.73_m2} Normal [facility] Comment on above: Performed By: #### C BC, BMP #### [facility] [address] Glucose [Mass/Vol] 281 mg/dL High 70-100 [facility] Comment on above: Result Comment: [facility] Glucose Reference Range is dependent on time and content of last meal. Glucose of more than 200 mg/dL in a nonstressed, ambulatory subject supports the diagnosis of Diabetes Mellitus. ADA recommended reference range Performed By: #### C AMAIRANI, BMP #### [facility] [address] Potassium [Moles/Vol] 5.0 mmol/L Normal 3.5-5.1 [facility] Comment on above: Performed By: #### C BC, BMP #### [facility] [address] Sodium [Moles/Vol] 136 mmol/L Normal 136-145 [facility] Comment on above: Performed By: #### C AMAIRANI, BMP #### [facility] [address] Urea nitrogen [Mass/Vol] 24 mg/dL Normal 7-25 [facility] Comment on above: Performed By: #### C BC, BMP #### [facility] [address] Basophils Auto (Bld) [#/Vol] Ordered By: Yogesh Becker on 01-12-2024 Basophils (Bld) [#/Vol] 0.1 10*3/uL 0.0-0.2 [facility] Basophils/100 WBC Auto (Bld) Ordered By: Yogesh Becker on 01-12-2024 Basophils/100 WBC (Bld) 0.9 % . [facility] Calcium [Mass/volume] in Ser um or PlasmaOrdered By: Yogesh Becker on 01-12-2024 Calcium [Mass/Vol] 9.3 mg/dL 8.6-10.3 [facility] Carbon dioxide, total [Moles /volume] in Serum or PlasmaOrdered By: Yogesh Becker on 01-12-2024 CO2 [Moles/Vol] 33.8 mmol/L 21.0-31.0 [facility] Chloride [Moles/volume] in S raffi or PlasmaOrdered By: Yogesh Becker on 01-12-2024 Chloride [Moles/Vol] 98 mmol/L 98-107 [facility] Complete Blood Count Auto Di ffon 01-12-2024 Basophils (Bld) [#/Vol] 0.1 10*3/uL Normal 0.0-0.2 [facility] Comment on above: Result Comment: PERF ORMED BY: [place] [address] PATHOLOGIST PILOT SAFETY INSPECTOR CLEVE CANDELARIA M.D. Performed By: #### C BC, BMP #### [address] Basophils/100 WBC (Bld) 0.9 % Normal . [facility] Comment on above: Performed By: #### C BC, BMP #### [address] Eosinophils (Bld) [#/Vol] 0.3 10*3/uL Normal 0.0-0.45 [facility] Comment on above: Performed By: #### C BC, BMP #### [address] Eosinophils/100 WBC (Bld) 3.9 % Normal . [facility] Comment on above: Performed By: #### C BC, BMP #### [address] Erythrocyte distribution width (RBC) [Ratio] 14.2 % Normal 12.0-14.8 [facility] Comment on above: Performed By: #### C BC, BMP #### [address] Hematocrit (Bld) [Volume fraction] 50.5 % High 38.8-50.0 [facility] Comment on above: Performed By: #### C BC, BMP #### [facility] [address] [place] [id number] [place] Hemoglobin (Bld) [Mass/Vol] 16.7 g/dL Normal 13.0-17.0 [facility] Comment on above: Performed By: #### C BC, BMP #### [facility] [address] [place] [address] [place] Lymphocytes (Bld) [#/Vol] 1.4 10*3/uL Normal 1.00-4.8 [facility] Comment on above: Performed By: #### C BC, BMP #### [facility] [address] [place] [address] [place] Lymphocytes/100 WBC (Bld) 16.7 % Normal . [facility] Comment on above: Performed By: #### C BC, BMP #### [facility] [address] MCH (RBC) [Entitic mass] 32.1 pg Normal 27.5-35.2 [facility] Comment on above: Performed By: #### C BC, BMP #### [facility] [address] [place] [address] [place] MCV (RBC) [Entitic vol] 96.9 fL Normal 83.5-101 [facility] Comment on above: Performed By: #### C BC, BMP #### [facility] [address] Mean Corpuscular HGB Conc 33.1 g/dL Normal 32.5-35.6 [facility] Comment on above: Performed By: #### C BC, BMP #### [facility] [address] [place] [address] [place] Monocytes (Bld) [#/Vol] 0.4 10*3/uL Normal 0.0-0.8 [facility] Comment on above: Performed By: #### C BC, BMP #### [facility] [address] [place] [address] [place] Monocytes/100 WBC (Bld) 5.2 % Normal . [facility] Comment on above: Performed By: #### C BC, BMP #### [facility] [address] [place] [address] [place] Neutrophils (Bld) [#/Vol] 6.2 10*3/uL Normal 1.8-7.7 [facility] Comment on above: Performed By: #### C BC, BMP #### [facility] [address] [place] [id number] [place] Neutrophils/100 WBC (Bld) 73.3 % Normal . [facility] Comment on above: Performed By: #### C BC, BMP #### [facility] [address] NRBC% 0.1 /100{WBC} Normal 0-0.5 [facility] Comment on above: Performed By: #### C BC, BMP #### [facility] [address] Platelet mean volume (Bld) [Entitic vol] 8.6 fL Normal 6.6-10.1 [facility] Comment on above: Performed By: #### C BC, BMP #### [facility] [address] [place] [address] [place] Platelets (Bld) [#/Vol] 186 10*3/uL Normal 150-450 [facility] Comment on above: Performed By: #### C BC, BMP #### [facility] [address] [place] [address] [place] RBC (Bld) [#/Vol] 5.21 10*6/uL Normal 3.90-5.60 [facility] Comment on above: Performed By: #### C BC, BMP #### [facility] [address] [place] [address] [place] WBC (Bld) [#/Vol] 8.5 10*3/uL Normal 4.1-10.5 [facility] Comment on above: Performed By: #### C BC, BMP #### [facility] [address] [place] [id number] [place] Creatinine [Mass/volume] in Serum or PlasmaOrdered By: Yogesh Becker on 01-12-2024 Creatinine [Mass/Vol] 0.82 mg/dL 0.70-1.30 [facility] Eosinophils Auto (Bld) [#/Vo l]Ordered By: Yogesh Becker on 01-12-2024 Eosinophils (Bld) [#/Vol] 0.3 10*3/uL 0.0-0.45 [facility] Eosinophils/100 WBC Auto (Bl d)Ordered By: Yogesh Becker on 01-12-2024 Eosinophils/100 WBC (Bld) 3.9 % . [facility] Erythrocyte distribution wid th Auto (RBC) [Ratio]Ordered By: Yogesh Becker on 01-12-2024 Erythrocyte distribution width (RBC) [Ratio] 14.2 % 12.0-14.8 [facility] Glucose [Mass/volume] in Ser um or PlasmaOrdered By: Yogesh Becker on 01-12-2024 Glucose [Mass/Vol] 281 mg/dL 70-100 [facility] Comment on above: ADA recommended refe rence rangeRandom Glucose Reference Range is dependent on time and content of last meal. Glucose of more than 200 mg/dL in a nonstressed, ambulatory subject supports the diagnosis of Diabetes Mellitus. Hematocrit Auto (Bld) [Volum e fraction]Ordered By: Yogesh Becker on 01-12-2024 Hematocrit (Bld) [Volume fraction] 50.5 % 38.8-50.0 [facility] Hemoglobin [Mass/volume] in BloodOrdered By: Yogesh Becker on 01-12-2024 Hemoglobin (Bld) [Mass/Vol] 16.7 g/dL 13.0-17.0 [facility] Leukocytes [#/volume] correc charanjit for nucleated erythrocytes in Blood by Automated counOrdered By: Yogesh Becker on 01-12-2024 WBC corrected for nucl RBC Auto (Bld) [#/Vol] 8.5 10*3/uL 4.1-10.5 [facility] Lymphocytes Auto (Bld) [#/Vo l]Ordered By: Yogesh Becker on 01-12-2024 Lymphocytes (Bld) [#/Vol] 1.4 10*3/uL 1.00-4.8 [facility] Lymphocytes/100 WBC Auto (Bl d)Ordered By: Yogesh Becker on 01-12-2024 Lymphocytes/100 WBC (Bld) 16.7 % . [facility] MCH Auto (RBC) [Entitic mass ]Ordered By: Yogesh Becker on 01-12-2024 MCH (RBC) [Entitic mass] 32.1 pg 27.5-35.2 [facility] MCHC Auto (RBC) [Mass/Vol]Or dered By: Yogesh Becker on 01-12-2024 MCHC (RBC) [Mass/Vol] 33.1 g/dL 32.5-35.6 [facility] MCV Auto (RBC) [Entitic vol] Ordered By: Yogesh Becker on 01-12-2024 MCV (RBC) [Entitic vol] 96.9 fL 83.5-101 [facility] Monocytes Auto (Bld) [#/Vol] Ordered By: Yogesh Becker on 01-12-2024 Monocytes (Bld) [#/Vol] 0.4 10*3/uL 0.0-0.8 [facility] Monocytes/100 WBC Auto (Bld) Ordered By: Yogesh Becker on 01-12-2024 Monocytes/100 WBC (Bld) 5.2 % . [facility] Neutrophils Auto (Bld) [#/Vo l]Ordered By: Yogesh Becker on 01-12-2024 Neutrophils (Bld) [#/Vol] 6.2 10*3/uL 1.8-7.7 [facility] Neutrophils/100 WBC Auto (Bl d)Ordered By: Yogesh Becker on 01-12-2024 Neutrophils/100 WBC (Bld) 73.3 % . [facility] No Panel InformationOrdered By: Yogesh Becker on 01-12-2024 Estimated GFR (CKD-EPI) > 60.0 mL/Min [facility] Creatinine Clearance (Chem N/A [facility] Nucleated erythrocytes [Pres ence] in Blood by Automated countOrdered By: Yogesh Becker on 01-12-2024 Nucleated RBC Auto Ql (Bld) 0.1 /100{WBC} 0-0.5 [facility] Platelet mean volume Auto (B ld) [Entitic vol]Ordered By: Yogesh Becker on 01-12-2024 Platelet mean volume (Bld) [Entitic vol] 8.6 fL 6.6-10.1 [facility] Platelets Auto (Bld) [#/Vol] Ordered By: Yogesh Becker on 01-12-2024 Platelets (Bld) [#/Vol] 186 10*3/uL 150-450 [facility] Potassium [Moles/volume] in Serum or PlasmaOrdered By: Yogesh Becker on 01-12-2024 Potassium [Moles/Vol] 5.0 mmol/L 3.5-5.1 [facility] RBC Auto (Bld) [#/Vol]Ordere d By: Yogesh Becker on 01-12-2024 RBC (Bld) [#/Vol] 5.21 10*6/uL 3.90-5.60 [facility] Serum or plasma anion gap de terminationOrdered By: Yogesh Becker on 01-12-2024 Anion gap [Moles/Vol] 9.2 mmol/L 6.0-15.0 [facility] Sodium [Moles/volume] in Ser um or PlasmaOrdered By: Yogesh Becker on 01-12-2024 Sodium [Moles/Vol] 136 mmol/L 136-145 [facility] Urea nitrogen [Mass/volume] in Serum or PlasmaOrdered By: Yogesh Becker on 01-12-2024 Urea nitrogen [Mass/Vol] 24 mg/dL 7-25 [facility] WBC Auto (Bld) [#/Vol]Ordere d By: Yogesh Becker on 01-12-2024 WBC (Bld) [#/Vol] 8.5 10*3/uL 4.1-10.5 [facility] MR cervical spine wo conon 0 12-16-2023 MR cervical spine wo con [facility] [address] [address] MRI Report Signed Patient: Koko Meier MR#: [id number] : 1960 Acct:[id number] Age/Sex: 63 / M ADM Date: 12/16/23 Loc: [facility] Room: Type: [facility] Attending Dr: Maryann Rubalcava MD Copies to: [...] Bruce Ortiz M.D.12/16/2023 3:15 PM Dictation Location: [place] [address] Transcribed By: [facility] 12/16/23 1515 Dictated By: Bruce Ortiz II, MD 12/16/23 1500 Signed By: 12/16/23 15[address] [facility] [address] head/brain wo conon 11-25 CT head/brain wo [facility] [place] [address] CT Scan Report Signed Patient: Koko Meier MR#: [id number] : 1960 Acct:[id number] Age/Sex: 62 / M ADM Date: 11/25/23 Loc: CT Room: Type: [facility] Attending Dr: Oliver Kerr MD Copies [...] Koko Hernandez M.D.11/25/2023 12:02 PM Dictation Location: [place] [address] Transcribed By: [facility] 11/25/23 1202 Dictated By: Koko Hernandez DO 11/25/23 1201 Signed By: 11/25/23 1202 Normal [facility] Cholesterol [Mass/volume] in Serum or PlasmaOrdered By: Josh Melvin on 11-24-2023 Cholesterol [Mass/Vol] 168 mg/dL 140-200 [facility] Comment on above: Chol less than 200 m g/dl low riskChol 201-239 mg/dl borderline riskChol 240 mg/dl and greater high risk Cholesterol in LDL Calc [Mas s/Vol]Ordered By: Josh Melvin on 11-24-2023 Cholesterol in LDL [Mass/Vol] 70 mg/dL 0-100 [facility] Comment on above: LDL ATP III CLASSIFI CATIONLDL less than 100 mg/dL OptimalLDL 100-129 mg/dL Near or above optimalLDL 130-159 mg/dL Borderline highLDL 160-189 mg/dL HighLDL greater than 189 mg/dL Very high Cholesterol in VLDL Calc [Ma ss/Vol]Ordered By: Josh Melvin on 11-24-2023 Cholesterol in VLDL [Mass/Vol] 43 mg/dL [facility] Folate [Mass/volume] in Seru m or PlasmaOrdered By: Oliver Kerr on 11-24-2023 Folate [Mass/Vol] 14.9 ng/mL >5.9 [facility] Comment on above: Folate reference ran ge: >5.9 ng/mlThe WHO technical consultation on folate and vitamin [id number] has determined that folate concentrations lessthan 4 ng/ml are considered deficient. Lipid Panelon 11-24-2023 Cholesterol [Mass/Vol] 168 mg/dL Normal 140-200 [facility] Comment on above: Result Comment: Chol less than 200 mg/dl low risk Chol 201-239 mg/dl borderline risk Chol 240 mg/dl and greater high risk Performed By: #### C BC, BMP #### [facility] [address] Cholesterol in HDL [Mass/Vol] 54 mg/dL Normal 23-92 [facility] Comment on above: Result Comment: HDL CHOL ATP-III CLASSIFICATION Cardiovascular Risk HDL > or equal to 60 mg/dL LOW HDL < 40 mg/dL HIGH Performed By: #### C BC, BMP #### [facility] [address] Cholesterol.total/Chol esterol in HDL [Mass ratio] 3.1 {ratio} Normal <5.0 [facility] Comment on above: Result Comment: PERF ORMED BY: [place] [address] PATHOLOGIST PILOT SAFETY INSPECTOR CLEVE CANDELARIA M.D. Performed By: #### C BC, BMP #### [facility] [address] LDL Cholesterol,Calculated 70 mg/dL Normal 0-100 [facility] Comment on above: Result Comment: LDL ATP III CLASSIFICATION LDL less than 100 mg/dL Optimal LDL 100-129 mg/dL Near or above optimal LDL 130-159 mg/dL Borderline high LDL 160-189 mg/dL High LDL greater than 189 mg/dL Very high Performed By: #### C BC, BMP #### [facility] [address] [place] [address] [place] Triglyceride w/Reflex 218 mg/dL High 0-149 [facility] Comment on above: Result Comment: TRIG ATP III CLASSIFICATION TRIG less than 150 mg/dL Normal TRIG 150-199 mg/dL Borderline high TRIG 200-500 mg/dL High TRIG greater than 500 mg/dL Very high Standard traceable to the Center for Disease Conrtrol and Prevention (CDC) test method. Performed By: #### C BC, BMP #### [facility] [address] VLDL CHOLESTEROL 43 mg/dL Normal [facility] Comment on above: Performed By: #### C BC, BMP #### [address] Methylmalonic Acidon 024 Methylmalonic Acid 169 Normal 0-378 [facility] Comment on above: Result Comment: This test was developed and its performance characteristics determined by [facility]. It has not been cleared or approved by the Food and Drug Administration. Performed at: [facility] [address] [id number] Binder Stripper Hand: Caroline Romo MD, Phone: [phone] PERFORMED BY: [place] [address] PATHOLOGIST PILOT SAFETY INSPECTOR CLEVE CANDELARIA M.D. Performed By: #### T SH3, [id number] #### [address] #### METH #### [facility] , PSA Screen (Yearly Only)on 0 11-24-2023 PSA Screen (Yearly Only) 1.380 ng/mL Normal 0.000-4.00 0 [facility] Comment on above: Order Comment: Is pa tient <50 yrs? Medicare does not pay <50.: Y What is the date of the last PSA Screen?: 01/31/22 Is Medicare the insurance?: U Did you verify eligibility (Dx Time) check TestViewGp: YES TO ALL Result Comment: Seri al tumor marker results determined by assays using different manufacturers or methods may not be comparable. [facility] obstetrics gynecology physician and method: [employer] DXI, CHEMILUMINESCENT IMMUNOASSAY. PERFORMED BY: [place] [address] PATHOLOGIST PILOT SAFETY INSPECTOR CLEVE CANDELARIA M.D. Performed By: #### C BC, BMP #### [address] Prostate specific Ag [Mass/v olume] in Serum or PlasmaOrdered By: Josh Melvin on 11-24-2023 Prostate specific Ag [Mass/Vol] 1.380 ng/mL 0.000-4.00 0 [facility] Comment on above: Serial tumor marker results determined by assays using different manufacturers or methods may not be comparable.[facility] obstetrics gynecology physician and method:WENDY CinaMakerEL DXI, CHEMILUMINESCENT IMMUNOASSAY. Serum or plasma high density lipoprotein (HDL) cholesterol measurementOrdered By: Josh Melvin on 11-24-2023 Cholesterol in HDL [Mass/Vol] 54 mg/dL 23-92 [facility] Comment on above: HDL CHOL ATP-III CLA SSIFICATION Cardiovascular RiskHDL > or equal to 60 mg/dL LOWHDL < 40 mg/dL HIGH Serum or plasma methylmalona te measurement (moles/volume)Ordered By: Oliver Kerr on 11-24-2023 Methylmalonate [Moles/Vol] 169 nmol/L 0-378 [facility] Comment on above: This test was devearline mccann and its performance characteristicsdetermined by [employer]. It has not been cleared orapproved by the Food and Drug Administration.Performed at: [address] [id number] Director: Caroline Romo MD, Phone: [phone] Serum or plasma total choles terol/high density lipoprotein (HDL) cholesterol mass ratOrdered By: Josh Melvin on 11-24-2023 Cholesterol.total/Chol esterol in HDL [Mass ratio] 3.1 {ratio} <5.0 [facility] Thyroid Stimulating Hormoneo n 11-24-2023 TSH Qn 2.24 m[IU]/L Normal 0.45-5.33 [facility] Comment on above: Result Comment: PERF ORMED BY: [place] [address] PATHOLOGIST PILOT SAFETY INSPECTOR CLEVE CANDELARIA M.D. Performed By: #### T SH3, [id number] #### [address] #### METH #### [facility] , Thyrotropin [Units/volume] i n Serum or PlasmaOrdered By: Oliver Kerr on 11-24-2023 TSH Qn 2.24 m[IU]/L 0.45-5.33 [facility] Triglyceride [Mass/volume] i n Serum or PlasmaOrdered By: Josh Melvin on 11-24-2023 Triglyceride [Mass/Vol] 218 mg/dL 0-149 [facility] Comment on above: TRIG ATP III CLASSIF ICATIONTRIG less than 150 mg/dL NormalTRIG 150-199 mg/dL Borderline highTRIG 200-500 mg/dL High TRIG greater than 500 mg/dL Very highStandard traceable to the Center for Disease Conrtrol and Prevention (CDC) test method. Vit. B12/Folate Profileon Cobalamin (Vitamin B12) [Mass/Vol] 365 pg/mL Normal 180-914 [facility] Comment on above: Performed By: #### T SH3, [id number] #### [facility] [address] [place] [address] #### METH #### [facility] , Folate 14.9 ng/mL Normal >5.9 [facility] Comment on above: Result Comment: Lin te reference range: >5.9 ng/ml The WHO technical consultation on folate and vitamin b12 deficiencies has determined that folate concentrations less than 4 ng/ml are considered deficient. Performed By: #### T SH3, [id number] #### [facility] [address] [place] [address] [place] #### METH #### [facility] , Vitamin B12 ser/plasOrdered By: Oliver Kerr on 11-24-2023 Cobalamin (Vitamin B12) [Mass/Vol] 365 pg/mL 180-914 [facility] Amphetamine Screen Ql (U)Ord ered By: Kenroy Domínguez on 11-03-2023 Amphetamines Ql (U) Negative Negative [facility] Barbiturates [Presence] in U rine by Screen methodOrdered By: Kenroy Domínguez on 11-03-2023 Barbiturates Screen Ql (U) Negative Negative [facility] Benzodiazepines Screen Ql (U )Ordered By: Kenroy Domínguez on 11-03-2023 Benzodiazepines Ql (U) Negative Negative [facility] Benzoylecgonine [Presence] i n Urine by Screen methodOrdered By: Kenroy Domínguez on 11-03-2023 Benzoylecgonine Screen Ql (U) Negative Negative [facility] Cannabinoids [Presence] in U rine by Screen methodOrdered By: Kenroy Domínguez on 11-03-2023 Cannabinoids Screen Ql (U) Positive Negative [facility] Comment on above: These are unconfirme d results and should not be used for legal purposes. Drug Cut-Off Concentration: AMPH 1000 ng/mL ZE 200 ng/mL DUANE 200 ng/mL COCM 300 ng/mL OP 300 ng/mL PCP 25 ng/mL THC 20 ng/mL Drug Screen,Urineon 11-03-19 24 Amphetamine Screen,Urine Negative Normal Negative [facility] Comment on above: Performed By: #### C BC, BMP #### [address] Barbiturate Screen,Urine Negative Normal Negative [facility] Comment on above: Performed By: #### C BC, BMP #### [place] [address] [place] Benzodiazepines Screen,Urine Negative Normal Negative [facility] Comment on above: Performed By: #### C BC, BMP #### [address] Cannabinoid Screen,Urine Positive High Negative [facility] Comment on above: Result Comment: Thes e are unconfirmed results and should not be used for legal purposes. Drug Cut-Off Concentration: AMPH 1000 ng/mL ZE 200 ng/mL DUANE 200 ng/mL COCM 300 ng/mL OP 300 ng/mL PCP 25 ng/mL THC 20 ng/mL PERFORMED BY: [place] [address] PATHOLOGIST PILOT SAFETY INSPECTOR CLEVE CANDELARIA M.D. Performed By: #### C BC, BMP #### [address] Cocaine Screen,Urine Negative Normal Negative [facility] Comment on above: Performed By: #### C BC, BMP #### [place] [address] [place] Opiate Screen,Urine Negative Normal Negative [facility] Comment on above: Performed By: #### C AMAIRANI, BMP #### [facility] [address] Phencyclidine Screen,Urine Negative Normal Negative [facility] Comment on above: Performed By: #### C BC, BMP #### [facility] [address] Glucose Glucometer (BldC) [M ass/Vol]Ordered By: Yogesh Becker on 11-03-2023 Glucose [Mass/Vol] 185 mg/dL [facility] Comment on above: Random Glucose Refer ence Range is dependent on time and content of last meal. Glucose of more than 200 mg/dL in a nonstressed, ambulatory subject supports the diagnosis of Diabetes Mellitus. Glucose Poct Glucometerson 0 11-03-2023 Glucose [Mass/Vol] 185 mg/dL Normal [facility] Comment on above: Result Comment: Shelley om Glucose Reference Range is dependent on time and content of last meal. Glucose of more than 200 mg/dL in a nonstressed, ambulatory subject supports the diagnosis of Diabetes Mellitus. PERFORMED BY: [place] [address] PATHOLOGIST PILOT SAFETY INSPECTOR CLEVE CANDELARIA M.D. Performed By: #### C AMAIRANI, BMP #### [address] Glucose [Mass/Vol] 180 mg/dL Normal [facility] Comment on above: Result Comment: Shelley om Glucose Reference Range is dependent on time and content of last meal. Glucose of more than 200 mg/dL in a nonstressed, ambulatory subject supports the diagnosis of Diabetes Mellitus. PERFORMED BY: [place] [address] PATHOLOGIST PILOT SAFETY INSPECTOR CLEVE CANDELARIA M.D. Performed By: #### G JES #### Point of Care testing , Opiates [Presence] in Urine by Screen methodOrdered By: Kenroy Domínguez on 11-03-2023 Opiates Screen Ql (U) Negative Negative [facility] Phencyclidine Screen Ql (U)O rdered By: Kenroy Domínguez on 11-03-2023 Phencyclidine Ql (U) Negative Negative [facility] Metabolic Panelon 12-2 Anion gap [Moles/Vol] 9.7 mmol/L Normal 6.0-15.0 [facility] Comment on above: Performed By: #### C BC, BMP #### [facility] [address] [place] [address] [place] Calcium [Mass/Vol] 8.8 mg/dL Normal 8.6-10.3 [facility] Comment on above: Result Comment: PERF ORMED BY: [place] [address] PATHOLOGIST PILOT SAFETY INSPECTOR CLEVE CANDELARIA M.D. Performed By: #### C BC, BMP #### [facility] [address] [place] [address] [place] Chloride [Moles/Vol] 100 mmol/L Normal 98-107 [facility] Comment on above: Performed By: #### C BC, BMP #### [facility] [address] [place] [address] [place] CO2 [Moles/Vol] 33.8 mmol/L High 21.0-31.0 [facility] Comment on above: Performed By: #### C BC, BMP #### [facility] [address] [place] [address] [place] Creatinine [Mass/Vol] 0.71 mg/dL Normal 0.70-1.30 [facility] Comment on above: Performed By: #### C BC, BMP #### [facility] [address] [place] [address] [place] GFR/1.73 sq M.predicted MDRD (S/P/Bld) [Vol rate/Area] mL/min/{1.73_m2} Normal [facility] Comment on above: Performed By: #### C BC, BMP #### [facility] [address] [place] [id number] [place] Glucose [Mass/Vol] 105 mg/dL High 70-100 [facility] Comment on above: Result Comment: Shelley Glucose Reference Range is dependent on time and content of last meal. Glucose of more than 200 mg/dL in a nonstressed, ambulatory subject supports the diagnosis of Diabetes Mellitus. ADA recommended reference range Performed By: #### C AMAIRANI, BMP #### [facility] [address] Potassium [Moles/Vol] 4.5 mmol/L Normal 3.5-5.1 [facility] Comment on above: Performed By: #### C AMAIRANI, BMP #### [facility] [address] Sodium [Moles/Vol] 139 mmol/L Normal 136-145 [facility] Comment on above: Performed By: #### C AMAIRANI, BMP #### [facility] [address] Urea nitrogen [Mass/Vol] 18 mg/dL Normal 7-25 [facility] Comment on above: Performed By: #### C AMAIRANI, BMP #### [facility] [address] Basophils Auto (Bld) [#/Vol] Ordered By: Yogesh Becker on 10-23-2023 Basophils (Bld) [#/Vol] 0.0 10*3/uL 0.0-0.2 [facility] Basophils/100 WBC Auto (Bld) Ordered By: Yogesh Becker on 10-23-2023 Basophils/100 WBC (Bld) 0.8 % . [facility] Calcium [Mass/volume] in Ser um or PlasmaOrdered By: Yogesh Becker on 10-23-2023 Calcium [Mass/Vol] 8.8 mg/dL 8.6-10.3 [facility] Carbon dioxide, total [Moles /volume] in Serum or PlasmaOrdered By: Yogesh Becker on 10-23-2023 CO2 [Moles/Vol] 33.8 mmol/L 21.0-31.0 [facility] Chloride [Moles/volume] in S raffi or PlasmaOrdered By: Yogesh Becker on 10-23-2023 Chloride [Moles/Vol] 100 mmol/L 98-107 [facility] Complete Blood Count Auto Di ffon 10-23-2023 Basophils (Bld) [#/Vol] 0.0 10*3/uL Normal 0.0-0.2 [facility] Comment on above: Result Comment: PERF ORMED BY: [place] [address] PATHOLOGIST PILOT SAFETY INSPECTOR CLEVE CANDELARIA M.D. Performed By: #### C BC, BMP #### [address] Basophils/100 WBC (Bld) 0.8 % Normal . [facility] Comment on above: Performed By: #### C BC, BMP #### [address] Eosinophils (Bld) [#/Vol] 0.2 10*3/uL Normal 0.0-0.45 [facility] Comment on above: Performed By: #### C BC, BMP #### [address] Eosinophils/100 WBC (Bld) 3.6 % Normal . [facility] Comment on above: Performed By: #### C BC, BMP #### [address] Erythrocyte distribution width (RBC) [Ratio] 14.3 % Normal 12.0-14.8 [facility] Comment on above: Performed By: #### C BC, BMP #### [address] Hematocrit (Bld) [Volume fraction] 48.1 % Normal 38.8-50.0 [facility] Comment on above: Performed By: #### C BC, BMP #### [address] Hemoglobin (Bld) [Mass/Vol] 16.2 g/dL Normal 13.0-17.0 [facility] Comment on above: Performed By: #### C BC, BMP #### [place] [address] [place] Lymphocytes (Bld) [#/Vol] 1.3 10*3/uL Normal 1.00-4.8 [facility] Comment on above: Performed By: #### C BC, BMP #### [facility] [address] Lymphocytes/100 WBC (Bld) 26.8 % Normal . [facility] Comment on above: Performed By: #### C BC, BMP #### [facility] [address] MCH (RBC) [Entitic mass] 32.4 pg Normal 27.5-35.2 [facility] Comment on above: Performed By: #### C BC, BMP #### [address] MCV (RBC) [Entitic vol] 96.0 fL Normal 83.5-101 [facility] Comment on above: Performed By: #### C BC, BMP #### [address] Mean Corpuscular HGB Conc 33.8 g/dL Normal 32.5-35.6 [facility] Comment on above: Performed By: #### C BC, BMP #### [place] [address] [place] Monocytes (Bld) [#/Vol] 0.5 10*3/uL Normal 0.0-0.8 [facility] Comment on above: Performed By: #### C BC, BMP #### [place] [address] [place] Monocytes/100 WBC (Bld) 9.4 % Normal . [facility] Comment on above: Performed By: #### C BC, BMP #### [place] [address] [place] Neutrophils (Bld) [#/Vol] 2.9 10*3/uL Normal 1.8-7.7 [facility] Comment on above: Performed By: #### C BC, BMP #### [address] Neutrophils/100 WBC (Bld) 59.4 % Normal . [facility] Comment on above: Performed By: #### C AMAIRANI, BMP #### [facility] [address] NRBC% 0.1 /100{WBC} Normal 0-0.5 [facility] Comment on above: Performed By: #### C AMAIRANI, BMP #### [facility] [address] Platelet mean volume (Bld) [Entitic vol] 8.4 fL Normal 6.6-10.1 [facility] Comment on above: Performed By: #### C AMAIRANI, BMP #### [facility] [address] Platelets (Bld) [#/Vol] 173 10*3/uL Normal 150-450 [facility] Comment on above: Performed By: #### C AMAIRANI, BMP #### [facility] [address] RBC (Bld) [#/Vol] 5.01 10*6/uL Normal 3.90-5.60 [facility] Comment on above: Performed By: #### C AMAIRANI, BMP #### [facility] [address] WBC (Bld) [#/Vol] 4.9 10*3/uL Normal 4.1-10.5 [facility] Comment on above: Performed By: #### C AMAIRANI, BMP #### [facility] [address] [place] [address] Creatinine [Mass/volume] in Serum or PlasmaOrdered By: Yogesh Becker on 10-23-2023 Creatinine [Mass/Vol] 0.71 mg/dL 0.70-1.30 [facility] Eosinophils Auto (Bld) [#/Vo l]Ordered By: Yogesh Becker on 10-23-2023 Eosinophils (Bld) [#/Vol] 0.2 10*3/uL 0.0-0.45 [facility] Eosinophils/100 WBC Auto (Bl d)Ordered By: Yogesh Becker on 10-23-2023 Eosinophils/100 WBC (Bld) 3.6 % . [facility] Erythrocyte distribution wid th Auto (RBC) [Ratio]Ordered By: Yogesh Becker on 10-23-2023 Erythrocyte distribution width (RBC) [Ratio] 14.3 % 12.0-14.8 [facility] Glucose [Mass/volume] in Ser um or PlasmaOrdered By: Yogesh Becker on 10-23-2023 Glucose [Mass/Vol] 105 mg/dL 70-100 [facility] Comment on above: ADA recommended refe rence rangeRandom Glucose Reference Range is dependent on time and content of last meal. Glucose of more than 200 mg/dL in a nonstressed, ambulatory subject supports the diagnosis of Diabetes Mellitus. Hematocrit Auto (Bld) [Volum e fraction]Ordered By: Yogesh Becker on 10-23-2023 Hematocrit (Bld) [Volume fraction] 48.1 % 38.8-50.0 [facility] Hemoglobin [Mass/volume] in BloodOrdered By: Yogesh Becker on 10-23-2023 Hemoglobin (Bld) [Mass/Vol] 16.2 g/dL 13.0-17.0 [facility] Leukocytes [#/volume] correc charanjit for nucleated erythrocytes in Blood by Automated counOrdered By: Yogesh Becker on 10-23-2023 WBC corrected for nucl RBC Auto (Bld) [#/Vol] 4.9 10*3/uL 4.1-10.5 [facility] Lymphocytes Auto (Bld) [#/Vo l]Ordered By: Yogesh Becker on 10-23-2023 Lymphocytes (Bld) [#/Vol] 1.3 10*3/uL 1.00-4.8 [facility] Lymphocytes/100 WBC Auto (Bl d)Ordered By: Yogesh Becker on 10-23-2023 Lymphocytes/100 WBC (Bld) 26.8 % . [facility] MCH Auto (RBC) [Entitic mass ]Ordered By: Yogesh Becker on 10-23-2023 MCH (RBC) [Entitic mass] 32.4 pg 27.5-35.2 [facility] MCHC Auto (RBC) [Mass/Vol]Or dered By: Yogesh Becker on 10-23-2023 MCHC (RBC) [Mass/Vol] 33.8 g/dL 32.5-35.6 [facility] MCV Auto (RBC) [Entitic vol] Ordered By: Yogesh Becker on 10-23-2023 MCV (RBC) [Entitic vol] 96.0 fL 83.5-101 [facility] Monocytes Auto (Bld) [#/Vol] Ordered By: Yogesh Becker on 10-23-2023 Monocytes (Bld) [#/Vol] 0.5 10*3/uL 0.0-0.8 [facility] Monocytes/100 WBC Auto (Bld) Ordered By: Yogesh Becker on 10-23-2023 Monocytes/100 WBC (Bld) 9.4 % . [facility] Neutrophils Auto (Bld) [#/Vo l]Ordered By: Yogesh Becker on 10-23-2023 Neutrophils (Bld) [#/Vol] 2.9 10*3/uL 1.8-7.7 [facility] Neutrophils/100 WBC Auto (Bl d)Ordered By: Yogesh Becker on 10-23-2023 Neutrophils/100 WBC (Bld) 59.4 % . [facility] No Panel InformationOrdered By: Yogesh Becker on 10-23-2023 Estimated GFR (CKD-EPI) > 60.0 mL/Min [facility] Creatinine Clearance (Chem N/A [facility] Nucleated erythrocytes [Pres ence] in Blood by Automated countOrdered By: Yogesh Becker on 10-23-2023 Nucleated RBC Auto Ql (Bld) 0.1 /100{WBC} 0-0.5 [facility] Platelet mean volume Auto (B ld) [Entitic vol]Ordered By: Yogesh Becker on 10-23-2023 Platelet mean volume (Bld) [Entitic vol] 8.4 fL 6.6-10.1 [facility] Platelets Auto (Bld) [#/Vol] Ordered By: Yogesh Becker on 10-23-2023 Platelets (Bld) [#/Vol] 173 10*3/uL 150-450 [facility] Potassium [Moles/volume] in Serum or PlasmaOrdered By: Yogesh Becker on 10-23-2023 Potassium [Moles/Vol] 4.5 mmol/L 3.5-5.1 [facility] RBC Auto (Bld) [#/Vol]Ordere d By: Yogesh Becker on 10-23-2023 RBC (Bld) [#/Vol] 5.01 10*6/uL 3.90-5.60 [facility] Serum or plasma anion gap de terminationOrdered By: Yogesh Becker on 10-23-2023 Anion gap [Moles/Vol] 9.7 mmol/L 6.0-15.0 [facility] Sodium [Moles/volume] in Ser um or PlasmaOrdered By: Yogesh Becker on 10-23-2023 Sodium [Moles/Vol] 139 mmol/L 136-145 [facility] Urea nitrogen [Mass/volume] in Serum or PlasmaOrdered By: Yogesh Becker on 10-23-2023 Urea nitrogen [Mass/Vol] 18 mg/dL 7-25 [facility] WBC Auto (Bld) [#/Vol]Ordere d By: Yogesh Becker on 10-23-2023 WBC (Bld) [#/Vol] 4.9 10*3/uL 4.1-10.5 [facility] Amphetamine Screen Ql (U)Ord ered By: Giuseppe Desouza on 10-02-2023 Amphetamines Ql (U) Negative Negative [facility] Barbiturates [Presence] in U rine by Screen methodOrdered By: Giuseppe Desouza on 10-02-2023 Barbiturates Screen Ql (U) Negative Negative [facility] Benzodiazepines Screen Ql (U )Ordered By: Giuseppe Desouza on 10-02-2023 Benzodiazepines Ql (U) Positive Negative [facility] Benzoylecgonine [Presence] i n Urine by Screen methodOrdered By: Giuseppe Desouza on 10-02-2023 Benzoylecgonine Screen Ql (U) Positive Negative [facility] Cannabinoids [Presence] in U rine by Screen methodOrdered By: Giuseppe Desouza on 10-02-2023 Cannabinoids Screen Ql (U) Positive Negative [facility] Comment on above: These are unconfirme d results and should not be used for legal purposes. Drug Cut-Off Concentration: AMPH 1000 ng/mL ZE 200 ng/mL DUANE 200 ng/mL COCM 300 ng/mL OP 300 ng/mL PCP 25 ng/mL THC 20 ng/mL Drug Screen,Urineon 10-02-20 Amphetamine Screen,Urine Negative Normal Negative [facility] Comment on above: Performed By: #### T SH3, [id number] #### [facility] [address] [place] [address] [place] #### METH #### [facility] , Barbiturate Screen,Urine Negative Normal Negative [facility] Comment on above: Performed By: #### T SH3, [id number] #### [facility] [address] [place] [address] [place] #### METH #### [facility] , Benzodiazepines Screen,Urine Positive High Negative [facility] Comment on above: Performed By: #### T SH3, [id number] #### [facility] [address] [place] [address] [place] #### METH #### [facility] , Cannabinoid Screen,Urine Positive High Negative [facility] Comment on above: Result Comment: Thes e are unconfirmed results and should not be used for legal purposes. Drug Cut-Off Concentration: AMPH 1000 ng/mL ZE 200 ng/mL DUANE 200 ng/mL COCM 300 ng/mL OP 300 ng/mL PCP 25 ng/mL THC 20 ng/mL PERFORMED BY: [place] [address] PATHOLOGIST PILOT SAFETY INSPECTOR CLEVE CANDELARIA M.D. Performed By: #### T SH3, [id number] #### [facility] [address] [place] [address] [place] #### METH #### [facility] , Cocaine Screen,Urine Positive High Negative [facility] Comment on above: Performed By: #### T SH3, [id number] #### [facility] [address] [place] [address] [place] #### METH #### [facility] , Opiate Screen,Urine Negative Normal Negative [facility] Comment on above: Performed By: #### T SH3, [id number] #### [facility] [address] [place] [address] [place] #### METH #### [facility] , Phencyclidine Screen,Urine Negative Normal Negative [facility] Comment on above: Performed By: #### T SH3, [id number] #### [facility] [address] [place] [address] #### METH #### [facility] , Glucose Glucometer (BldC) [M ass/Vol]Ordered By: Yogesh Becker on 10-02-2023 Glucose [Mass/Vol] 290 mg/dL [facility] Comment on above: Random Glucose Refer ence Range is dependent on time and content of last meal. Glucose of more than 200 mg/dL in a nonstressed, ambulatory subject supports the diagnosis of Diabetes Mellitus. Glucose Poct Glucometerson 1 12-03-2022 Commemt1 Glu2: Cleaned Meter Normal [facility] Comment on above: Result Comment: PERF ORMED BY: [address] [place] [address] PATHOLOGIST PILOT SAFETY INSPECTOR CLEVE CANDELARIA M.D. Performed By: #### C BC, BMP #### [address] Glucose [Mass/Vol] 290 mg/dL Normal [facility] Comment on above: Result Comment: Shelley om Glucose Reference Range is dependent on time and content of last meal. Glucose of more than 200 mg/dL in a nonstressed, ambulatory subject supports the diagnosis of Diabetes Mellitus. Performed By: #### C BC, BMP #### [address] No Panel InformationOrdered By: Yogesh Becker on 10-02-2023 Bedside Glucose Comment Glu2: cleaned meter [facility] Opiates [Presence] in Urine by Screen methodOrdered By: Giuseppe Desouza on 10-02-2023 Opiates Screen Ql (U) Negative Negative Fir [facility] Phencyclidine Screen Ql (U)O rdered By: Giuseppe Desouza on 10-02-2023 Phencyclidine Ql (U) Negative Negative [facility] POC Glucose Randomon 023 Glucose [Mass/Vol] 192 mg/dL High 70-99 [facility] Comment on above: Performed By: #### C [id number] #### [facility] [address] [place] [address] Glucose [Mass/Vol] 246 mg/dL High 70-99 [facility] Comment on above: Performed By: #### C [id number] #### [facility] [address] [place] [address] Basic Metabolic Panelon 08-28 Anion gap [Moles/Vol] 13.1 mmol/L Normal 6.0-15.0 [facility] Comment on above: Performed By: #### B MP, CBC #### [facility] [address] [place] [address] [place] Calcium [Mass/Vol] 9.3 mg/dL Normal 8.6-10.3 [facility] Comment on above: Result Comment: PERF ORMED BY: [facility] [address] [facility] [place] [address] PATHOLOGIST PILOT SAFETY INSPECTOR CLEVE CANDELARIA M.D. Performed By: #### B MP, CBC #### [facility] [address] [place] [address] [place] Chloride [Moles/Vol] 96 mmol/L Low 98-107 [facility] Comment on above: Performed By: #### B MP, CBC #### [facility] [address] [place] [address] [place] CO2 [Moles/Vol] 30.6 mmol/L Normal 21.0-31.0 [facility] Comment on above: Performed By: #### B MP, CBC #### [facility] [address] [place] [address] [place] Creatinine [Mass/Vol] 1.01 mg/dL Normal 0.70-1.30 [facility] Comment on above: Performed By: #### B MP, CBC #### [facility] [address] [place] [address] [place] GFR/1.73 sq M.predicted MDRD (S/P/Bld) [Vol rate/Area] mL/min/{1.73_m2} Normal [facility] Comment on above: Performed By: #### B MP, CBC #### [facility] [address] Glucose [Mass/Vol] 412 mg/dL High 70-100 [facility] Comment on above: Result Comment: [place]ley Glucose Reference Range is dependent on time and content of last meal. Glucose of more than 200 mg/dL in a nonstressed, ambulatory subject supports the diagnosis of Diabetes Mellitus. ADA recommended reference range Performed By: #### B MP, CBC #### [facility] [address] [place] [address] [place] Potassium [Moles/Vol] 4.7 mmol/L Normal 3.5-5.1 [facility] Comment on above: Performed By: #### B MP, CBC #### [facility] [address] [place] [address] [place] Sodium [Moles/Vol] 135 mmol/L Low 136-145 [facility] Comment on above: Performed By: #### B MP, CBC #### [facility] [address] [place] [id number] [place] Urea nitrogen [Mass/Vol] 28 mg/dL High 7-25 [facility] Comment on above: Performed By: #### B MP, CBC #### [facility] [address] [place] [address] [place] Basophils Auto (Bld) [#/Vol] Ordered By: Yogesh Becker on 09-23-2023 Basophils (Bld) [#/Vol] 0.1 10*3/uL 0.0-0.2 [facility] Basophils/100 WBC Auto (Bld) Ordered By: Yogesh Becker on 09-23-2023 Basophils/100 WBC (Bld) 0.6 % . [facility] Calcium [Mass/volume] in Ser um or PlasmaOrdered By: Yogesh Becker on 09-23-2023 Calcium [Mass/Vol] 9.3 mg/dL 8.6-10.3 [facility] Carbon dioxide, total [Moles /volume] in Serum or PlasmaOrdered By: Yogesh Becker on 09-23-2023 CO2 [Moles/Vol] 30.6 mmol/L 21.0-31.0 [facility] Chloride [Moles/volume] in S raffi or PlasmaOrdered By: Yogesh Becker on 09-23-2023 Chloride [Moles/Vol] 96 mmol/L 98-107 [facility] Complete Blood Count Auto Di ffon 09-23-2023 Basophils (Bld) [#/Vol] 0.1 10*3/uL Normal 0.0-0.2 [facility] Comment on above: Result Comment: PERF ORMED BY: [place] [address] PATHOLOGIST PILOT SAFETY INSPECTOR CLEVE CANDELARIA M.D. Performed By: #### B MP, CBC #### [facility] [address] [place] [address] [place] Basophils/100 WBC (Bld) 0.6 % Normal . [facility] Comment on above: Performed By: #### B MP, CBC #### [facility] [address] [place] [address] [place] Eosinophils (Bld) [#/Vol] 0.0 10*3/uL Normal 0.0-0.45 [facility] Comment on above: Performed By: #### B MP, CBC #### [facility] [address] [place] [address] [place] Eosinophils/100 WBC (Bld) 0.1 % Normal . [facility] Comment on above: Performed By: #### B MP, CBC #### [facility] [address] Erythrocyte distribution width (RBC) [Ratio] 13.9 % Normal 12.0-14.8 [facility] Comment on above: Performed By: #### B MP, CBC #### [address] Hematocrit (Bld) [Volume fraction] 47.2 % Normal 38.8-50.0 [facility] Comment on above: Performed By: #### B MP, CBC #### [address] Hemoglobin (Bld) [Mass/Vol] 15.7 g/dL Normal 13.0-17.0 [facility] Comment on above: Performed By: #### B MP, CBC #### [address] Lymphocytes (Bld) [#/Vol] 1.7 10*3/uL Normal 1.00-4.8 [facility] Comment on above: Performed By: #### B MP, CBC #### [address] Lymphocytes/100 WBC (Bld) 13.3 % Normal . [facility] Comment on above: Performed By: #### B MP, CBC #### [address] MCH (RBC) [Entitic mass] 32.3 pg Normal 27.5-35.2 [facility] Comment on above: Performed By: #### B MP, CBC #### [address] MCV (RBC) [Entitic vol] 96.9 fL Normal 83.5-101 [facility] Comment on above: Performed By: #### B MP, CBC #### [address] Mean Corpuscular HGB Conc 33.4 g/dL Normal 32.5-35.6 [facility] Comment on above: Performed By: #### B MP, CBC #### [address] [address] [place] Monocytes (Bld) [#/Vol] 0.6 10*3/uL Normal 0.0-0.8 [facility] Comment on above: Performed By: #### B MP, CBC #### [address] Monocytes/100 WBC (Bld) 4.6 % Normal . [facility] Comment on above: Performed By: #### B MP, CBC #### [address] Neutrophils (Bld) [#/Vol] 10.1 10*3/uL High 1.8-7.7 [facility] Comment on above: Performed By: #### B MP, CBC #### [address] Neutrophils/100 WBC (Bld) 81.4 % Normal . [facility] Comment on above: Performed By: #### B MP, CBC #### [address] NRBC% 0.0 /100{WBC} Normal 0-0.5 [facility] Comment on above: Performed By: #### B MP, CBC #### [address] Platelet mean volume (Bld) [Entitic vol] 8.3 fL Normal 6.6-10.1 [facility] Comment on above: Performed By: #### B MP, CBC #### [address] Platelets (Bld) [#/Vol] 203 10*3/uL Normal 150-450 [facility] Comment on above: Performed By: #### B MP, CBC #### [address] RBC (Bld) [#/Vol] 4.87 10*6/uL Normal 3.90-5.60 [facility] Comment on above: Performed By: #### B MP, CBC #### [address] WBC (Bld) [#/Vol] 12.4 10*3/uL High 4.1-10.5 [facility] Comment on above: Performed By: #### B MP, CBC #### [address] Creatinine [Mass/volume] in Serum or PlasmaOrdered By: Yogesh Becker on 09-23-2023 Creatinine [Mass/Vol] 1.01 mg/dL 0.70-1.30 [facility] ECG 12 lead ECGon 09-23-2023 ECG 12 lead ECG [facility] [place] [address] [place] [address] Electrocardiograph Report Signed Patient: Koko Meier MR#: [id number] : 1960 Acct:[id number] Age/Sex: 62 / M ADM Date: 09/23/23 Loc: Room: Type: [facility] Attending Dr: Yogesh Becker MD Ordering [...] axis shifted right Confirmed by JOSEY MATUTE [facility]IE ([id number]) on 09/23/2023 10:29:43 PM Referred By: OLEGARIO BECKER Electronically Signed By:KIRSTIE CERVANTES MD FACC Transcribed By: MUS Signed By Barron Cervantes MD 09/23/23 4761 Normal [facility] Eosinophils Auto (Bld) [#/Vo l]Ordered By: Yogesh Becker on 09-23-2023 Eosinophils (Bld) [#/Vol] 0.0 10*3/uL 0.0-0.45 [facility] Eosinophils/100 WBC Auto (Bl d)Ordered By: Yogesh Becker on 09-23-2023 Eosinophils/100 WBC (Bld) 0.1 % . [facility] Erythrocyte distribution wid th Auto (RBC) [Ratio]Ordered By: Yogesh Becker on 09-23-2023 Erythrocyte distribution width (RBC) [Ratio] 13.9 % 12.0-14.8 [facility] Glucose [Mass/volume] in Ser um or PlasmaOrdered By: Yogesh Becker on 09-23-2023 Glucose [Mass/Vol] 412 mg/dL 70-100 [facility] Comment on above: ADA recommended refe rence rangeRandom Glucose Reference Range is dependent on time and content of last meal. Glucose of more than 200 mg/dL in a nonstressed, ambulatory subject supports the diagnosis of Diabetes Mellitus. Hematocrit Auto (Bld) [Volum e fraction]Ordered By: Yogesh Becker on 09-23-2023 Hematocrit (Bld) [Volume fraction] 47.2 % 38.8-50.0 [facility] Hemoglobin [Mass/volume] in BloodOrdered By: Yogesh Becker on 09-23-2023 Hemoglobin (Bld) [Mass/Vol] 15.7 g/dL 13.0-17.0 [facility] Leukocytes [#/volume] correc charanjit for nucleated erythrocytes in Blood by Automated counOrdered By: Yogesh Becker on 09-23-2023 WBC corrected for nucl RBC Auto (Bld) [#/Vol] 12.4 10*3/uL 4.1-10.5 [facility] Lymphocytes Auto (Bld) [#/Vo l]Ordered By: Yogesh Becker on 09-23-2023 Lymphocytes (Bld) [#/Vol] 1.7 10*3/uL 1.00-4.8 [facility] Lymphocytes/100 WBC Auto (Bl d)Ordered By: Yogesh Becker on 09-23-2023 Lymphocytes/100 WBC (Bld) 13.3 % . [facility] MCH Auto (RBC) [Entitic mass ]Ordered By: Yogesh Becker on 09-23-2023 MCH (RBC) [Entitic mass] 32.3 pg 27.5-35.2 [facility] MCHC Auto (RBC) [Mass/Vol]Or dered By: Yogesh Becker on 09-23-2023 MCHC (RBC) [Mass/Vol] 33.4 g/dL 32.5-35.6 [facility] MCV Auto (RBC) [Entitic vol] Ordered By: Yogesh Becker on 09-23-2023 MCV (RBC) [Entitic vol] 96.9 fL 83.5-101 [facility] Monocytes Auto (Bld) [#/Vol] Ordered By: Yogesh Becker on 09-23-2023 Monocytes (Bld) [#/Vol] 0.6 10*3/uL 0.0-0.8 [facility] Monocytes/100 WBC Auto (Bld) Ordered By: Yogesh Becker on 09-23-2023 Monocytes/100 WBC (Bld) 4.6 % . [facility] Neutrophils Auto (Bld) [#/Vo l]Ordered By: Yogesh Becker on 09-23-2023 Neutrophils (Bld) [#/Vol] 10.1 10*3/uL 1.8-7.7 [facility] Neutrophils/100 WBC Auto (Bl d)Ordered By: Yogesh Becker on 09-23-2023 Neutrophils/100 WBC (Bld) 81.4 % . [facility] No Panel InformationOrdered By: Yogesh Becker on 09-23-2023 Estimated GFR (CKD-EPI) > 60.0 mL/Min [facility] Creatinine Clearance (Chem N/A [facility] Nucleated erythrocytes [Pres ence] in Blood by Automated countOrdered By: Yogesh Becker on 09-23-2023 Nucleated RBC Auto Ql (Bld) 0.0 /100{WBC} 0-0.5 [facility] Platelet mean volume Auto (B ld) [Entitic vol]Ordered By: Yogesh Becker on 09-23-2023 Platelet mean volume (Bld) [Entitic vol] 8.3 fL 6.6-10.1 [facility] Platelets Auto (Bld) [#/Vol] Ordered By: Yogesh Becker on 09-23-2023 Platelets (Bld) [#/Vol] 203 10*3/uL 150-450 [facility] Potassium [Moles/volume] in Serum or PlasmaOrdered By: Yogesh Becker on 09-23-2023 Potassium [Moles/Vol] 4.7 mmol/L 3.5-5.1 [facility] RBC Auto (Bld) [#/Vol]Ordere d By: Yogesh Becker on 09-23-2023 RBC (Bld) [#/Vol] 4.87 10*6/uL 3.90-5.60 [facility] Serum or plasma anion gap de terminationOrdered By: Yogesh Becker on 09-23-2023 Anion gap [Moles/Vol] 13.1 mmol/L 6.0-15.0 [facility] Sodium [Moles/volume] in Ser um or PlasmaOrdered By: Yogesh Becker on 09-23-2023 Sodium [Moles/Vol] 135 mmol/L 136-145 [facility] Urea nitrogen [Mass/volume] in Serum or PlasmaOrdered By: Yogesh Becker on 09-23-2023 Urea nitrogen [Mass/Vol] 28 mg/dL 7-25 [facility] WBC Auto (Bld) [#/Vol]Ordere d By: Yogesh Becker on 09-23-2023 WBC (Bld) [#/Vol] 12.4 10*3/uL 4.1-10.[address] [facility] [address] ABDOMEN PELVIS W IV CONTR Ammon [...] spine 5V*on 07-27 XR cervical spine 5V* [facility] [place] [address] [place] [address] XRay Report Signed Patient: Koko Meier MR#: [id number] : 1960 Acct:[id number] Age/Sex: 62 / M ADM Date: 08/11/23 Loc: [place] Room: Type: [facility] Attending Dr: Savanna Mcclain MD Copies [...] Koko Hernandez M.D.08/11/2023 5:00 PM Dictation Location: [place] [address] Transcribed By: [facility] 08/11/23 170 Dictated By: Koko Hernandez DO 08/11/23 962 Signed By: 08/11/231699 Normal [facility] XR thoracic spine 3V*on 07-27 XR thoracic spine 3V* [facility] [place] [address] [place] [address] XRay Report Signed Patient: Koko Meier MR#: [id number] : 1960 Acct:[id number] Age/Sex: 62 / M ADM Date: 08/11/23 Loc: [place] Room: Type: [facility] Attending Dr: Savanna Mcclain MD Copies [...] Koko Hernandez M.D.08/11/2023 5:01 PM Dictation Location: [facility]12 Transcribed By: [facility] 08/11/231700 Dictated By: Chin Hernandezsalima Kamara DO 08/11/231699 Signed By: 08/11/231700 Normal [facility] XR lumbar spine 6V w bending on 08-01-2023 XR lumbar spine 6V w bending [facility] [place] [address] [place] [address] XRay Report Signed Patient: Koko Meier MR#: [id number] : 1960 Acct:[id number] Age/Sex: 62 / M ADM Date: 08/01/23 Loc: [place] Room: Type: [facility] CLI Attending Dr: Josh Melvin DO Copies [...] Monika Eastman M.D.08/01/2023 1:06 PM Dictation Location: [facility] Transcribed By: SHIRLEY 08/01/23 1306 Dictated By: Monika Eastman MD 08/01/23 1210 Signed By: 08/01/23 1306 Normal [facility] A1C with Estimated Average G alice 04-21-2023 Glucose [Mass/Vol] 197 mg/dL Normal [facility] Comment on above: Result Comment: PERF ORMED BY: [place] [address] PATHOLOGIST PILOT SAFETY INSPECTOR CLEVE CANDELARIA M.D. Performed By: #### C BC, BMP #### [address] HbA1c (Bld) [Mass fraction] 8.5 % High 4.3-5.6 [facility] Comment on above: Result Comment: Incr eased risk for diabetes: 5.7 - 6.4 diabetes: >6.4 glycemic control for adults with diabetes: <7.0 Performed By: #### C BC, BMP #### [facility] [address] [place] [address] Alanine aminotransferase [En zymatic activity/volume] in Serum or PlasmaOrdered By: Josh Bunting on 04-21-2023 ALT [Catalytic activity/Vol] 19 U/L 7-52 [facility] Albumin [Mass/volume] in Ser um or Plasma by Bromocresol green (BCG) dye binding methoOrdered By: Josh Bunting on 04-21-2023 Albumin BCG dye [Mass/Vol] 4.2 g/dL 3.5-5.7 [facility] Alkaline phosphatase [Enzyma tic activity/volume] in Serum or PlasmaOrdered By: Josh Bunting on 04-21-2023 ALP [Catalytic activity/Vol] 67 U/L 34-104 [facility] Aspartate aminotransferase [ Enzymatic activity/volume] in Serum or PlasmaOrdered By: Josh Bunting on 04-21-2023 AST [Catalytic activity/Vol] 16 U/L 13-39 [facility] Basophils Auto (Bld) [#/Vol] Ordered By: Josh Bunting on 04-21-2023 Basophils (Bld) [#/Vol] 0.1 10*3/uL 0.0-0.2 [facility] Basophils/100 WBC Auto (Bld) Ordered By: Josh Bunting on 04-21-2023 Basophils/100 WBC (Bld) 0.9 % . [facility] Bilirubin.total [Mass/volume ] in Serum or PlasmaOrdered By: Josh Bunting on 04-21-2023 Bilirubin [Mass/Vol] 0.4 mg/dL 0.3-1.0 [facility] Calcium [Mass/volume] in Ser um or PlasmaOrdered By: Josh Bunting on 04-21-2023 Calcium [Mass/Vol] 9.3 mg/dL 8.6-10.3 [facility] Carbon dioxide, total [Moles /volume] in Serum or PlasmaOrdered By: Josh Bunting on 04-21-2023 CO2 [Moles/Vol] 30.3 mmol/L 21.0-31.0 [facility] Chloride [Moles/volume] in S raffi or PlasmaOrdered By: Josh Bunting on 04-21-2023 Chloride [Moles/Vol] 99 mmol/L 98-107 [facility] Cholesterol [Mass/volume] in Serum or PlasmaOrdered By: Josh Bunting on 04-21-2023 Cholesterol [Mass/Vol] 300 mg/dL 140-200 [facility] Comment on above: Chol less than 200 m g/dl low riskChol 201-239 mg/dl borderline riskChol 240 mg/dl and greater high risk Cholesterol in LDL Calc [Mas s/Vol]Ordered By: Josh Bunting on 04-21-2023 Cholesterol in LDL [Mass/Vol] 207 mg/dL 0-100 [facility] Comment on above: LDL ATP III CLASSIFI CATIONLDL less than 100 mg/dL OptimalLDL 100-129 mg/dL Near or above optimalLDL 130-159 mg/dL Borderline highLDL 160-189 mg/dL HighLDL greater than 189 mg/dL Very high Cholesterol in VLDL Calc [Ma ss/Vol]Ordered By: Josh Bunting on 04-21-2023 Cholesterol in VLDL [Mass/Vol] 32 mg/dL [facility] Complete Blood Count Auto Di ffon 04-21-2023 Basophils (Bld) [#/Vol] 0.1 10*3/uL Normal 0.0-0.2 [facility] Comment on above: Result Comment: PERF ORMED BY: [place] [address] PATHOLOGIST PILOT SAFETY INSPECTOR CLEVE CANDELARIA M.D. Performed By: #### C BC, BMP #### [address] Basophils/100 WBC (Bld) 0.9 % Normal . [facility] Comment on above: Performed By: #### C BC, BMP #### [address] Eosinophils (Bld) [#/Vol] 0.2 10*3/uL Normal 0.0-0.45 [facility] Comment on above: Performed By: #### C BC, BMP #### [address] Eosinophils/100 WBC (Bld) 2.1 % Normal . [facility] Comment on above: Performed By: #### C BC, BMP #### [address] Erythrocyte distribution width (RBC) [Ratio] 15.0 % High 12.0-14.8 [facility] Comment on above: Performed By: #### C BC, BMP #### [address] Hematocrit (Bld) [Volume fraction] 48.8 % Normal 38.8-50.0 [facility] Comment on above: Performed By: #### C BC, BMP #### [address] Hemoglobin (Bld) [Mass/Vol] 16.7 g/dL Normal 13.0-17.0 [facility] Comment on above: Performed By: #### C BC, BMP #### [address] Lymphocytes (Bld) [#/Vol] 1.9 10*3/uL Normal 1.00-4.8 [facility] Comment on above: Performed By: #### C BC, BMP #### [facility] [address] Lymphocytes/100 WBC (Bld) 26.3 % Normal . [facility] Comment on above: Performed By: #### C BC, BMP #### [facility] [address] MCH (RBC) [Entitic mass] 32.5 pg Normal 27.5-35.2 [facility] Comment on above: Performed By: #### C BC, BMP #### [facility] [address] MCV (RBC) [Entitic vol] 95.2 fL Normal 83.5-101 [facility] Comment on above: Performed By: #### C BC, BMP #### [address] Mean Corpuscular HGB Conc 34.2 g/dL Normal 32.5-35.6 [facility] Comment on above: Performed By: #### C BC, BMP #### [place] [address] [place] Monocytes (Bld) [#/Vol] 0.4 10*3/uL Normal 0.0-0.8 [facility] Comment on above: Performed By: #### C BC, BMP #### [place] [address] [place] Monocytes/100 WBC (Bld) 5.5 % Normal . [facility] Comment on above: Performed By: #### C BC, BMP #### [facility] [address] [place] [address] [place] Neutrophils (Bld) [#/Vol] 4.6 10*3/uL Normal 1.8-7.7 [facility] Comment on above: Performed By: #### C BC, BMP #### [facility] [address] [place] [address] [place] Neutrophils/100 WBC (Bld) 65.2 % Normal . [facility] Comment on above: Performed By: #### C BC, BMP #### [facility] [address] NRBC% 0.0 /100{WBC} Normal 0-0.5 [facility] Comment on above: Performed By: #### C BC, BMP #### [address] Platelet mean volume (Bld) [Entitic vol] 8.6 fL Normal 6.6-10.1 [facility] Comment on above: Performed By: #### C BC, BMP #### [address] Platelets (Bld) [#/Vol] 200 10*3/uL Normal 150-450 [facility] Comment on above: Performed By: #### C BC, BMP #### [address] RBC (Bld) [#/Vol] 5.13 10*6/uL Normal 3.90-5.60 [facility] Comment on above: Performed By: #### C BC, BMP #### [address] WBC (Bld) [#/Vol] 7.1 10*3/uL Normal 4.1-10.5 [facility] Comment on above: Performed By: #### C BC, BMP #### [facility] [address] [place] [address] Comprehensive Metabolic Pane brennen 04-21-2023 Albumin [Mass/Vol] 4.2 g/dL Normal 3.5-5.7 [facility] Comment on above: Order Comment: PT FA STED 12 HOURS Performed By: #### C BC, BMP #### [address] Albumin/Globulin [Mass ratio] 1.9 {ratio} Normal [facility] Comment on above: Order Comment: PT FA STED 12 HOURS Performed By: #### C BC, BMP #### [address] [place] [address] [place] ALP [Catalytic activity/Vol] 67 U/L Normal 34-104 [facility] Comment on above: Order Comment: PT FA STED 12 HOURS Performed By: #### C BC, BMP #### [facility] [address] [place] [id number] [facility] ALT [Catalytic activity/Vol] 19 U/L Normal 7-52 [facility] Comment on above: Order Comment: PT FA STED 12 HOURS Performed By: #### C BC, BMP #### [facility] [address] Anion gap [Moles/Vol] 11.3 mmol/L Normal 6.0-15.0 [facility] Comment on above: Order Comment: PT FA STED 12 HOURS Performed By: #### C BC, BMP #### [facility] [address] [place] [address] AST [Catalytic activity/Vol] 16 U/L Normal 13-39 [facility] Comment on above: Order Comment: PT FA STED 12 HOURS Performed By: #### C BC, BMP #### [facility] [address] [place] [address] [place] Bilirubin [Mass/Vol] 0.4 mg/dL Normal 0.3-1.0 [facility] Comment on above: Order Comment: PT FA STED 12 HOURS Performed By: #### C BC, BMP #### [facility] [address] [place] [address] [place] Calcium [Mass/Vol] 9.3 mg/dL Normal 8.6-10.3 [facility] Comment on above: Order Comment: PT FA STED 12 HOURS Performed By: #### C BC, BMP #### [facility] [address] [place] [address] [place] Chloride [Moles/Vol] 99 mmol/L Normal 98-107 [facility] Comment on above: Order Comment: PT FA STED 12 HOURS Performed By: #### C BC, BMP #### [facility] [address] [place] [address] [place] CO2 [Moles/Vol] 30.3 mmol/L Normal 21.0-31.0 [facility] Comment on above: Order Comment: PT FA STED 12 HOURS Performed By: #### C BC, BMP #### [facility] [address] Creatinine [Mass/Vol] 0.90 mg/dL Normal 0.70-1.30 [facility] Comment on above: Order Comment: PT FA STED 12 HOURS Performed By: #### C BC, BMP #### [facility] [address] [place] [address] [place] GFR/1.73 sq M.predicted MDRD (S/P/Bld) [Vol rate/Area] mL/min/{1.73_m2} [facility] Comment on above: Order Comment: PT FA STED 12 HOURS Performed By: #### C BC, BMP #### [facility] [address] [place] [address] [place] Globulin (S) [Mass/Vol] 2.2 g/dL [facility] Comment on above: Order Comment: PT FA STED 12 HOURS Performed By: #### C BC, BMP #### [facility] [address] [place] [address] Glucose [Mass/Vol] 149 mg/dL High 70-100 [facility] Comment on above: Order Comment: PT FA STED 12 HOURS Result Comment: [facility] Glucose Reference Range is dependent on time and content of last meal. Glucose of more than 200 mg/dL in a nonstressed, ambulatory subject supports the diagnosis of Diabetes Mellitus. ADA recommended reference range Performed By: #### C BC, BMP #### [facility] [address] [place] [address] [place] Potassium [Moles/Vol] 4.6 mmol/L Normal 3.5-5.1 [facility] Comment on above: Order Comment: PT FA STED 12 HOURS Performed By: #### C BC, BMP #### [facility] [address] [place] [address] [place] Protein [Mass/Vol] 6.4 g/dL Normal 6.4-8.9 [facility] Comment on above: Order Comment: PT FA STED 12 HOURS Performed By: #### C BC, BMP #### [facility] [address] [place] [id number] [place] Sodium [Moles/Vol] 136 mmol/L Normal 136-145 [facility] Comment on above: Order Comment: PT FA STED 12 HOURS Performed By: #### C BC, BMP #### [facility] [address] [place] [id number] [place] Urea nitrogen [Mass/Vol] 25 mg/dL Normal 7-25 [facility] Comment on above: Order Comment: PT FA STED 12 HOURS Performed By: #### C BC, BMP #### [facility] [address] [place] [id number] [place] Creatinine [Mass/volume] in Serum or PlasmaOrdered By: Josh Bunting on 04-21-2023 Creatinine [Mass/Vol] 0.90 mg/dL 0.70-1.30 [facility] Eosinophils Auto (Bld) [#/Vo l]Ordered By: Josh Bunting on 04-21-2023 Eosinophils (Bld) [#/Vol] 0.2 10*3/uL 0.0-0.45 [facility] Eosinophils/100 WBC Auto (Bl d)Ordered By: Josh Bunting on 04-21-2023 Eosinophils/100 WBC (Bld) 2.1 % . [facility] Erythrocyte distribution wid th Auto (RBC) [Ratio]Ordered By: Josh Bunting on 04-21-2023 Erythrocyte distribution width (RBC) [Ratio] 15.0 % 12.0-14.8 [facility] Globulin Calc (S) [Mass/Vol] Ordered By: Josh Bunting on 04-21-2023 Globulin (S) [Mass/Vol] 2.2 g/dL [facility] Glucose [Mass/volume] in Ser um or PlasmaOrdered By: Josh Bunting on 04-21-2023 Glucose [Mass/Vol] 149 mg/dL 70-100 [facility] Comment on above: ADA recommended [...] from glycated hemoglobin (Bld) [Mass/Vol] 197 mg/dL [facility] Hematocrit Auto (Bld) [Volum e fraction]Ordered By: Josh Melvin on 04-21-2023 Hematocrit (Bld) [Volume fraction] 48.8 % 38.8-50.0 [facility] Hemoglobin A1c percentageOrd ered By: Josh Melvin on 04-21-2023 HbA1c (Bld) [Mass fraction] 8.5 % 4.3-5.6 [facility] Comment on above: Increased risk for d iabetes: 5.7 - 6.4diabetes: >6.4glycemic control for adults with diabetes: <7.0 Hemoglobin [Mass/volume] in BloodOrdered By: Josh Melvin on 04-21-2023 Hemoglobin (Bld) [Mass/Vol] 16.7 g/dL 13.0-17.0 [facility] Leukocytes [#/volume] correc charanjit for nucleated erythrocytes in Blood by Automated counOrdered By: Josh Melvin on 04-21-2023 WBC corrected for nucl RBC Auto (Bld) [#/Vol] 7.1 10*3/uL 4.1-10.5 [facility] Lipid Panelon 04-21-2023 Cholesterol [Mass/Vol] 300 mg/dL High 140-200 [facility] Comment on above: Order Comment: PT FA STED 12 HOURS Result Comment: Chol less than 200 mg/dl low risk Chol 201-239 mg/dl borderline risk Chol 240 mg/dl and greater high risk Performed By: #### C BC, BMP #### [facility] [address] Cholesterol in HDL [Mass/Vol] 61 mg/dL Normal 23-92 [facility] Comment on above: Order Comment: PT FA STED 12 HOURS Result Comment: HDL CHOL ATP-III CLASSIFICATION Cardiovascular Risk HDL > or equal to 60 mg/dL LOW HDL < 40 mg/dL HIGH Performed By: #### C BC, BMP #### [address] Cholesterol.total/Chol esterol in HDL [Mass ratio] 4.9 {ratio} Normal <5.0 [facility] Comment on above: Order Comment: PT FA STED 12 HOURS Result Comment: PERF ORMED BY: [place] [address] PATHOLOGIST PILOT SAFETY INSPECTOR CLEVE CANDELARIA M.D. Performed By: #### C BC, BMP #### [address] LDL Cholesterol,Calculated 207 mg/dL High 0-100 [facility] Comment on above: Order Comment: PT FA STED 12 HOURS Result Comment: LDL ATP III CLASSIFICATION LDL less than 100 mg/dL Optimal LDL 100-129 mg/dL Near or above optimal LDL 130-159 mg/dL Borderline high LDL 160-189 mg/dL High LDL greater than 189 mg/dL Very high Performed By: #### C BC, BMP #### [address] Triglyceride w/Reflex 162 mg/dL High 0-149 [facility] Comment on above: Order Comment: PT FA STED 12 HOURS Result Comment: TRIG ATP III CLASSIFICATION TRIG less than 150 mg/dL Normal TRIG 150-199 mg/dL Borderline high TRIG 200-500 mg/dL High TRIG greater than 500 mg/dL Very high Standard traceable to the Center for Disease Conrtrol and Prevention (CDC) test method. Performed By: #### C BC, BMP #### [facility] [address] [place] [address] VLDL CHOLESTEROL 32 mg/dL Normal [facility] Comment on above: Order Comment: PT FA STED 12 HOURS Performed By: #### C BC, BMP #### [facility] [address] [place] [address] Lymphocytes Auto (Bld) [#/Vo l]Ordered By: Josh Melvin on 04-21-2023 Lymphocytes (Bld) [#/Vol] 1.9 10*3/uL 1.00-4.8 [facility] Lymphocytes/100 WBC Auto (Bl d)Ordered By: Josh Melvin on 04-21-2023 Lymphocytes/100 WBC (Bld) 26.3 % . [facility] MCH Auto (RBC) [Entitic mass ]Ordered By: Josh Bunting on 04-21-2023 MCH (RBC) [Entitic mass] 32.5 pg 27.5-35.2 [facility] MCHC Auto (RBC) [Mass/Vol]Or dered By: Josh Bunting on 04-21-2023 MCHC (RBC) [Mass/Vol] 34.2 g/dL 32.5-35.6 [facility] MCV Auto (RBC) [Entitic vol] Ordered By: Josh Bunting on 04-21-2023 MCV (RBC) [Entitic vol] 95.2 fL 83.5-101 [facility] Monocytes Auto (Bld) [#/Vol] Ordered By: Josh Bunting on 04-21-2023 Monocytes (Bld) [#/Vol] 0.4 10*3/uL 0.0-0.8 [facility] Monocytes/100 WBC Auto (Bld) Ordered By: Josh Bunting on 04-21-2023 Monocytes/100 WBC (Bld) 5.5 % . [facility] Neutrophils Auto (Bld) [#/Vo l]Ordered By: Josh Bunting on 04-21-2023 Neutrophils (Bld) [#/Vol] 4.6 10*3/uL 1.8-7.7 [facility] Neutrophils/100 WBC Auto (Bl d)Ordered By: Josh Bunting on 04-21-2023 Neutrophils/100 WBC (Bld) 65.2 % . [facility] No Panel InformationOrdered By: Josh Bunting on 04-21-2023 Estimated GFR (CKD-EPI) > 60.0 mL/Min [facility] Creatinine Clearance (Chem N/A [facility] Nucleated erythrocytes [Pres ence] in Blood by Automated countOrdered By: Josh Bunting on 04-21-2023 Nucleated RBC Auto Ql (Bld) 0.0 /100{WBC} 0-0.5 [facility] Platelet mean volume Auto (B ld) [Entitic vol]Ordered By: Josh Bunting on 04-21-2023 Platelet mean volume (Bld) [Entitic vol] 8.6 fL 6.6-10.1 [facility] Platelets Auto (Bld) [#/Vol] Ordered By: Josh Bunting on 04-21-2023 Platelets (Bld) [#/Vol] 200 10*3/uL 150-450 [facility] Potassium [Moles/volume] in Serum or PlasmaOrdered By: Josh Bunting on 04-21-2023 Potassium [Moles/Vol] 4.6 mmol/L 3.5-5.1 [facility] Protein [Mass/volume] in Ser um or PlasmaOrdered By: Josh Bunting on 04-21-2023 Protein [Mass/Vol] 6.4 g/dL 6.4-8.9 [facility] RBC Auto (Bld) [#/Vol]Ordere d By: Josh Bunting on 04-21-2023 RBC (Bld) [#/Vol] 5.13 10*6/uL 3.90-5.60 [facility] Serum or plasma albumin/glob ulin mass ratioOrdered By: Josh Bunting on 04-21-2023 Albumin/Globulin [Mass ratio] 1.9 {ratio} [facility] Serum or plasma anion gap de terminationOrdered By: Josh Bunting on 04-21-2023 Anion gap [Moles/Vol] 11.3 mmol/L 6.0-15.0 [facility] Serum or plasma high density lipoprotein (HDL) cholesterol measurementOrdered By: Josh Bunting on 04-21-2023 Cholesterol in HDL [Mass/Vol] 61 mg/dL 23-92 [facility] Comment on above: HDL CHOL ATP-III CLA SSIFICATION Cardiovascular RiskHDL > or equal to 60 mg/dL LOWHDL < 40 mg/dL HIGH Serum or plasma total choles terol/high density lipoprotein (HDL) cholesterol mass ratOrdered By: Josh Bunting on 04-21-2023 Cholesterol.total/Chol esterol in HDL [Mass ratio] 4.9 {ratio} <5.0 [facility] Sodium [Moles/volume] in Ser um or PlasmaOrdered By: Josh Bunting on 04-21-2023 Sodium [Moles/Vol] 136 mmol/L 136-145 [facility] Triglyceride [Mass/volume] i n Serum or PlasmaOrdered By: Josh Melvin on 04-21-2023 Triglyceride [Mass/Vol] 162 mg/dL 0-149 [facility] Comment on above: TRIG ATP III CLASSIF ICATIONTRIG less than 150 mg/dL NormalTRIG 150-199 mg/dL Borderline highTRIG 200-500 mg/dL High TRIG greater than 500 mg/dL Very highStandard traceable to the Center for Disease Conrtrol and Prevention (CDC) test method. Urea nitrogen [Mass/volume] in Serum or PlasmaOrdered By: Josh Melvin on 04-21-2023 Urea nitrogen [Mass/Vol] 25 mg/dL 7-25 [facility] WBC Auto (Bld) [#/Vol]Ordere d By: Josh Bunting on 04-21-2023 WBC (Bld) [#/Vol] 7.1 10*3/uL 4.1-10.5 [facility] CNPKristan 04-10-2023 [facility] NIYAH [facility]IER ([id number]) 1960 M Date Time Provider Department 04/10/23 DONNY PERALTA [facility] During your visit today, we recorded the following information about you: Kimberli Couch, HAYES 04/10/2023 9:36 AM Signed Patient calling in [...] Encounter Status:Closed by KIMBERLI COUCH on 04/15/23 [facility] 03-26-2023 CNOV Office Visit ([facility] ) NIYAH MEIER ([id number]) 1960 M Date Time Provider Department 03/26/23 11:20 AM DONNY PERALTA During your visit today, we recorded the following information about you: Pulse Respiration 88/minute 17/minute Donny Peralta APRN.[facility] 03/26/2023 4:15 PM Signed Mr. Meier is [...] 2 to 3 weeks time. Donny Peralta APRN.[employer] CC: Josh Melvin DO Referring Provider: JOSH MELVIN [[id number]] Allergies As of Date: 03/26/2023 (No Known Allergies) Date Reviewed: 03/26/2023 Reviewed by: Olive Hui LPN - Fully Assessed Reason for Visit: Mouth lesion on left side [Other] Primary Visit Diagnosis:Laryngeal candidiasis [B37.89] Other Visit Diagnoses:Glossitis [K14.0] Oral candidiasis [B37.0] Hoarseness of voice [R49.0] History of alcohol abuse [F10.11] Order(s):COMP METABOLIC PANEL [SQCMP] Order #: [id number] FUTURE clotrimazole (MYCELEX) 10 mg trocheUse 1 Bud as instructed four times daily for 14 days.Disp: 56 tabletRfl: 0 Prescriptions as of 03/26/2023 - busPIRone HCl 30 mg tablet TAKE 1 TABLET BY MOUTH THREE TIMES DAILY FOR ANXIETY - celec (more content not included)... Normal [facility] Comprehensive metabolic 2000 panelon 03-26-2023 Albumin [Mass/Vol] 4.4 g/dL Normal 3.9-4.9 [facility] Comment on above: Order Comment: Speci men Type: BLOOD SPECIMEN Ordering Facility: [facility] Address: [address] [address] Performed By: #### 2 4323-8 #### [facility] CLIA [id number] [address] [place] [address] [place] ALP [Catalytic activity/Vol] 90 U/L Normal 38-113 [facility] Comment on above: Order Comment: Speci men Type: BLOOD SPECIMEN Ordering Facility: [facility] Address: [address] [address] Performed By: #### 2 4323-8 #### [facility] CLIA [id number] [address] [place] [address] [place] ALT [Catalytic activity/Vol] 22 U/L Normal 10-54 [facility] Comment on above: Order Comment: Speci men Type: BLOOD SPECIMEN Ordering Facility: [facility] Address: [address] Performed By: #### 2 4323-8 #### [facility] CLIA [id number] [address] [place] [address] [place] Anion gap [Moles/Vol] 11 mmol/L Normal 9-18 [facility] Comment on above: Order Comment: Speci men Type: BLOOD SPECIMEN Ordering Facility: [facility] Address: [address] Performed By: #### 2 4323-8 #### [facility] CLIA [id number] [address] [place] [address] [place] AST [Catalytic activity/Vol] 23 U/L Normal 14-40 [facility] Comment on above: Order Comment: Speci men Type: BLOOD SPECIMEN Ordering Facility: [facility] Address: [address] [place] [address] Performed By: #### 2 4323-8 #### [facility] CLIA [id number] [address] [place] [address] [place] Bilirubin [Mass/Vol] 0.4 mg/dL Normal 0.2-1.3 [facility] Comment on above: Order Comment: Speci men Type: BLOOD SPECIMEN Ordering Facility: [facility] Address: [address] [place] [address] Performed By: #### 2 4323-8 #### [facility] CLIA [id number] [address] [place] [address] [place] Calcium [Mass/Vol] 9.6 mg/dL Normal 8.5-10.2 [facility] Comment on above: Order Comment: Speci men Type: BLOOD SPECIMEN Ordering Facility: [facility] Address: [address] [place], [place] [address] Performed By: #### 2 4323-8 #### [facility] CLIA [id number] [address] [place] [address] [place] Chloride [Moles/Vol] 97 mmol/L Normal 97-105 [facility] Comment on above: Order Comment: Speci men Type: BLOOD SPECIMEN Ordering Facility: [facility] Address: [address] [place], [place] [address] Performed By: #### 2 4323-8 #### [facility] CLIA [id number] [address] [place] [address] [place] CO2 [Moles/Vol] 27 mmol/L Normal 22-30 [facility] Comment on above: Order Comment: Speci men Type: BLOOD SPECIMEN Ordering Facility: [facility] Address: [address] [address] Performed By: #### 2 4323-8 #### [facility] CLIA [id number] [facility] [address] [place] Creatinine [Mass/Vol] 0.99 mg/dL Normal 0.73-1.22 [facility] Comment on above: Order Comment: Speci men Type: BLOOD SPECIMEN Ordering Facility: [facility] Address: [address] [address] Performed By: #### 2 4323-8 #### [facility] CLIA [id number] [address] [place] [address] [place] ESTIMATED GLOMERULAR FILTRATION RATE 85 mL/min/1.73m??? Normal >=60 [facility] Comment on above: Order Comment: Speci men Type: BLOOD SPECIMEN Ordering Facility: [facility] Address: [address] [place] [address] Result Comment: Neha mated Glomerular Filtration Rate [...] GFR. Performed By: #### 2 4323-8 #### [facility] CLIA [id number] [address] [place] [address] [place] Glucose [Mass/Vol] 85 mg/dL Normal 74-99 [facility] Comment on above: Order Comment: Speci men Type: BLOOD SPECIMEN Ordering Facility: [facility] Address: [address] [place] [address] Result Comment: The [place] Diabetes Association (ADA) provides guidance for cutoff [...] Standards of Medical Care in Diabetes 2016, [place] [employer]. Diabetes Care. 2016.39(Suppl 1). Performed By: #### 2 4323-8 #### [facility] CLIA [id number] [address] [place] [address] [place] Potassium [Moles/Vol] 4.5 mmol/L Normal 3.7-5.1 [facility] Comment on above: Order Comment: Speci men Type: BLOOD SPECIMEN Ordering Facility: [facility] Address: [address] [address] Performed By: #### 2 4323-8 #### [facility] CLIA [id number] [address] [place] [address] [place] Protein [Mass/Vol] 7.0 g/dL Normal 6.3-8.0 [facility] Comment on above: Order Comment: Ilana guillen Type: BLOOD SPECIMEN Ordering Facility: [facility] Address: [address] [address] Performed By: #### 2 4323-8 #### [facility] CLIA [id number] [facility] [place] [address] [place] Sodium [Moles/Vol] 135 mmol/L Low 136-144 [facility] Comment on above: Order Comment: Demetriusi men Type: BLOOD SPECIMEN Ordering Facility: [facility] Address: [address] Performed By: #### 2 4323-8 #### [facility] CLIA [id number] [address] [place] [address] [place] Urea nitrogen [Mass/Vol] 25 mg/dL High 9-24 [facility] Comment on above: Order Comment: Speci men Type: BLOOD SPECIMEN Ordering Facility: [facility] Address: [address] [id number] Performed By: #### 2 4323-8 #### [facility] CLIA [id number] [address] [facility] [address] [place] [address] [place] XR lumbar spine 2-3V*on 01-25 XR lumbar spine 2-3V* [facility] [address] [place] [address] XRay Report Signed Patient: Koko Meier MR#: [id number] : 1960 Acct:[id number] Age/Sex: 62 / M ADM Date: 02/10/23 Loc: XD Room: Type: [facility] Attending Dr: Errol Humphrey MD Copies to: Errol Humphrey MD Ordering Provider: Errol Humphrey MD Date of Service: 02/10/23 XR/XR cervical spine 2V: M96.1 ([id number]) XR/XR lumbar spine 2-3V*: M96.1 CLINICAL DATA: [...] Monika Eastman M.D.02/10/2023 12:29 PM Dictation Location: [place] [address] Transcribed By: [facility] 02/10/23 1229 Dictated By: Monika Eastman MD 02/10/23 1220 Signed By: 02/10/23 1229 Normal [facility] Body fluid albumin measureme nt (mass/volume)Ordered By: Josh Melvin on 09-30-2022 Albumin (Body fld) [Mass/Vol] 3.6 g/dL 3.2-5.5 [facility] Cholesterol [Mass/volume] in Serum or PlasmaOrdered By: Josh Melvin on 09-30-2022 Cholesterol [Mass/Vol] 154 mg/dL 140-200 [facility] Comment on above: Chol less than 200 m g/dl low riskChol 201-239 mg/dl borderline riskChol 240 mg/dl and greater high risk Cholesterol in LDL Calc [Mas s/Vol]Ordered By: Josh Melvin on 09-30-2022 Cholesterol in LDL [Mass/Vol] 93 mg/dL 0-100 [facility] Comment on above: LDL ATP III CLASSIFI CATIONLDL less than 100 mg/dL OptimalLDL 100-129 mg/dL Near or above optimalLDL 130-159 mg/dL Borderline highLDL 160-189 mg/dL HighLDL greater than 189 mg/dL Very high Cholesterol in VLDL Calc [Ma ss/Vol]Ordered By: Josh Melvin on 09-30-2022 Cholesterol in VLDL [Mass/Vol] 17 mg/dL [facility] Creatinine and Glomerular fi ltration rate.predicted panel (S/P/Bld)Ordered By: Josh Melvin on 09-30-2022 Creatinine [Mass/Vol] 0.89 mg/dL 0.64-1.27 [facility] Estimated glomerular filtrat ion rate (GFR) non- AmericanOrdered By: Josh Melvin on 09-30-2022 GFR/1.73 sq M.predicted among non-blacks MDRD (S/P/Bld) [Vol rate/Area] > 60 mL/Min [facility] Globulin Calc (S) [Mass/Vol] Ordered By: Josh Melvin on 09-30-2022 Globulin (S) [Mass/Vol] 3.1 g/dL [facility] Glucose mean value [Mass/vol ume] in Blood Estimated from glycated hemoglobinOrdered By: Josh Melvin on 09-30-2022 Average glucose Estimated from glycated hemoglobin (Bld) [Mass/Vol] 180 mg/dL [facility] Hemoglobin A1c percentageOrd ered By: Josh Melvin on 09-30-2022 HbA1c (Bld) [Mass fraction] 7.9 % 4.3-5.6 [facility] Comment on above: Increased risk for d iabetes: 5.7 - 6.4diabetes: >6.4glycemic control for adults with diabetes: <7.0 No Panel InformationOrdered By: Josh Melvin on 09-30-2022 Estimated GFR () > 60 mL/Min [facility] Comment on above: GFR estimated refere nce range: According to KDOQI guidelines, <60 ml/min/1.73m2 is sufficient to diagnose a patient with chronic kidney disease. Pharmacy Creatinine Clearance (Chem N/A [facility] Protein [Mass/volume] in Ser um or PlasmaOrdered By: Josh Melvin on 09-30-2022 Protein [Mass/Vol] 6.7 g/dL 6.1-7.9 [facility] Serum or plasma alanine cullen otransferase measurement without P-5'-P (enzymatic activiOrdered By: Josh Melvin on 09-30-2022 ALT No additional P-5'-P [Catalytic activity/Vol] 19 U/L 10-60 [facility] Serum or plasma albumin/glob ulin mass ratioOrdered By: Josh Melvin on 09-30-2022 Albumin/Globulin [Mass ratio] 1.2 {ratio} [facility] Serum or plasma alkaline juliette sphatase measurement (enzymatic activity/volume)Ordered By: Josh Melvin on 09-30-2022 ALP [Catalytic activity/Vol] 78 U/L 32-92 [facility] Serum or plasma anion gap de terminationOrdered By: Josh Melvin on 09-30-2022 Anion gap [Moles/Vol] 19.0 mmol/L 6.0-15.0 [facility] Serum or plasma aspartate am inotransferase measurement (enzymatic activity/volume)Ordered By: Josh Melvin on 09-30-2022 AST [Catalytic activity/Vol] 17 U/L 10-42 [facility] Serum or plasma calcium ezra urement (mass/volume)Ordered By: Josh Melvin on 09-30-2022 Calcium [Mass/Vol] 9.6 mg/dL 8.2-10.2 [facility] Serum or plasma chloride brenda surement (moles/volume)Ordered By: Josh Melvin on 09-30-2022 Chloride [Moles/Vol] 94 mmol/L 95-114 [facility] Serum or plasma glucose ezra urement (mass/volume)Ordered By: Josh Melvin on 09-30-2022 Glucose [Mass/Vol] 149 mg/dL 70-100 [facility] Comment on above: ADA recommended refe rence rangeRandom Glucose Reference Range is dependent on time and content of last meal. Glucose of more than 200 mg/dL in a nonstressed, ambulatory subject supports the diagnosis of Diabetes Mellitus. Serum or plasma high density lipoprotein (HDL) cholesterol measurementOrdered By: Josh Melvin on 09-30-2022 Cholesterol in HDL [Mass/Vol] 44 mg/dL 29-71 [facility] Comment on above: HDL CHOL ATP-III CLA SSIFICATION Cardiovascular RiskHDL > or equal to 60 mg/dL LOWHDL < 40 mg/dL HIGH Serum or plasma potassium me asurement (moles/volume)Ordered By: Josh Melvin on 09-30-2022 Potassium [Moles/Vol] 4.9 mmol/L 3.5-5.1 [facility] Serum or plasma sodium measu rement (moles/volume)Ordered By: Josh Bunting on 09-30-2022 Sodium [Moles/Vol] 137 mmol/L 136-146 [facility] Serum or plasma total biliru bin measurement (mass/volume)Ordered By: Josh Mevlin on 09-30-2022 Bilirubin [Mass/Vol] 0.7 mg/dL 0.3-1.2 [facility] Serum or plasma total carbon dioxide measurement (moles/volume)Ordered By: Josh Melvin on 09-30-2022 CO2 [Moles/Vol] 28.9 mmol/L 22.0-30.0 [facility] Serum or plasma total choles terol/high density lipoprotein (HDL) cholesterol mass ratOrdered By: Josh Melvin on 09-30-2022 Cholesterol.total/Chol esterol in HDL [Mass ratio] 3.5 {ratio} <5.0 [facility] Serum or plasma urea nitroge n measurement (mass/volume)Ordered By: Josh Melvin on 09-30-2022 Urea nitrogen [Mass/Vol] 19 mg/dL 9-23 [facility] Triglyceride [Mass/volume] i n Serum or PlasmaOrdered By: Josh Melvin on 09-30-2022 Triglyceride [Mass/Vol] 86 mg/dL 35-149 [facility] Comment on above: TRIG ATP III CLASSIF ICATIONTRIG less than 150 mg/dL NormalTRIG 150-199 mg/dL Borderline highTRIG 200-500 mg/dL High TRIG greater than 500 mg/dL Very highStandard traceable to the Center for Disease Conrtrol and Prevention (CDC) test method. IntraOperative Documentson 0 04-25-2021 IntraOperative Documents [id number]:[id number] Normal [facility] Main OR Intraoperative Recor don 04-25-2021 Main OR Intraoperative Record IntraOp Document Type FT Summary Primary Physician: Kwame Yang DO Finalized Date/Time: 04/25/21 16:46:35 Pt. Name: KOKO MEIER /Sex: 1960 Male Med Rec #: [id number] Physician: Kwame Yang DO Financial #: [id number] Pt. Type: I Room/Bed: [place] [address] Admit/Disch: 04/18/21 08:03:48 - 04/19/21 13:50:00 Institution: [...] annalisa koo 04/20/21 send charges. L Annalisa RN Case Attendance FT Entry 1 Entry 2 Entry 3 Case Attendee Peterson NAVARRO, Kwame Mcgrath DO HOT DIP PLATER, Ailyn Hankins Role Performed Anesthesiologist Surgeon - Primary HOT DIP PLATER/SA Digital Forensic Examiner Time In 04/18/21 10:01:00 04/18/21 10:01:00 04/18/21 10:01:00 Time Out 04/18/21 12:40:00 04/18/21 12:40:00 04/18/21 12:40:00 Procedure SHOULDER TOTAL SHOULDER TOTAL SHOULDER TOTAL ARTHROPLASTY(Right) ARTHROPLASTY(Right) ARTHROPLASTY(Right) Comments supervised by Dr. Linton Last Modified By: Kasi KOO, Nandini Villaseñor RN, Nandini Villaseñor RN, Nandini Kamara 04/18/21 12:41:34 04/18/21 12:41:34 04/18/21 12:41:34 Entry 4 Entry 5 Entry 6 Case Attendee Kasi KOO, Nandini Goldberg HOT DIP PLATER, Christiano Ballard HOT DIP PLATER, FA, Mensjeny K Role Performed Anesthesiologists' Assistant - Primary Scrub - Primary Staff - [...] X-ray Applicable) PreOp Antibiotic Yes Time Out Trey SILVERMAN, Kwame A, Given Participants Jimmy Winkler CRNA, Roth HOT DIP PLATER, Kasi Maciel RN, Yusuf Garner CST, Elio Burnham HOT DIP PLATER, FA, Mensjeny K Time Out Complete 04/18/21 [...] and tissue Entry 1 Skin Integrity Intact, [place], Warm, and Skin Abnormality No Dry (more content not included)... Normal [facility] Main OR Preoperative Recordo n 04-25-2021 Main OR Preoperative Record PreOp Document Type FT Summary Primary Physician: Kwame Yang DO Finalized Date/Time: 04/25/21 16:43:54 Pt. Name: KOKO MEIER Aura Hilton./Sex: 1960 Male Med Rec #: [id number] Physician: Kwame Yang DO Financial #: [id number] Pt. Type: Room/Bed: [facility]/ Admit/Disch: 04/18/21 08:03:48 - 04/19/21 13:50:00 Institution: [...] By: Nandini Villaseñor RN 04/25/21 16:43 Normal [facility] Coding Summary.on 04-24-2021 Coding Summary. CD:[id number] Gh0bWw+ PGhlYWQ+RG7FVYGhJ91lmSRzuD2 YH1sWAI6VPZCHTNCTNF0GWY4wyG A1PJbcT0FpkiSb WpghiFPpXF84OWb9LEV6jHrpSRe bfC2lsYKcK4i0OpYdKZ22bH85AZ hbRZRuVmC4ZrKctkabyGSz I3pbNeImgYMtKdb+PHRhYmxlIHd dIOBtZEanJGUiGkZnrYgrAS5hAm 9yZGVyLWNvbGxhcHNlOiBj b7myZAOaHLnsZW9vkTmsM1GsoIB 1FNSgw7a4Di01hNB+PTCcKCO7rN kiQJjwn201EfKpe0dcDMY9 gCSpVXdiITR2N54vb9V2EWHpOVY hIFK6mMJ9eM5rmAooofjhI7WgyO MyWzQ9GAW6fGGytX4ynUjk dumchO5oEqx+G76PWK8DRMEFUH4 XArg6T9MyYyuhfIH+CG80FHFtZH 21dGJerCApy5skjWn0VfJw GKQqXYU6hChfCTqqu8OyNERzA29 bzCIhw6K0KWKpcZdzaQSpLaOlrI Y3oO4pGCytjodre1tvuxbv Khbab5dzbu69eM39B31eZCpwYON lAEQ9RQXrFRKqvUskzr3znC2tUw 8+CYmgm7ytn2yedHa1KnXt LUKzotFrrHiyZLM7k2ByBr52G5A ddUylu9FdZdi9tm98yZCho4H4dT W8ENeuWKYhcS0qAEaoUaX7 ZHKtIcRzjW95aAOjVCjaIr9lmPs hvLznBJ9cJWEqksjpZIUpfV8cFK IcfYBisGphGF9nATOtzbux c815YkStQEA0UYOwaJFfU3QbaI1 qYhNbHTBtVLXdO1QzdEJaOYhmB0 32VYraGnU8IAObawEbM0Vw AVJxuOexYbS7f9R0Ij6El7Mofcg rSVW6TKlgYSV5ZlE5MhZiZcT6Y4 QiCqu5WGWmuBoaXB6gT9Dy ODYitscjcypkbYX1LZOuXZTcxV3 4pQKpQRjwRs3he0I5n699AYTjUX LabY44Ui2jhWilWPLphZVL pR8kkpuvr7obbbsdGvZmCXUqOPa 3GVn9LQAwfColKvAhJYC9CyJ2HB M6xSAibJ4zaXweuyurcI0p Oyc+M62aaC0pZYZ3ISX2jzxhGMK mkqZkCI64HK01K8HsOuknoFYbpB U+AEFuurXotZorMX4nTiHt j6keh8UzBDpaZ7ZeCEUaFEegRxm 7IWQyNDJ1qJR0sU0cHNRpCKuom7 H4qXO9F6LylnIimk9xe1fn XEXlOFdpG91nbPIgb2F6PNQcbSR 8UBVbsMcxNaSjzZ59She+PGNvbG vre0FiHoxuu3ztr5gnySu5 GjYqUGEbfeGdtSdwKLO3l9AwMo7 1P02sFGcwTZDrOJVtTGUjIIRkyG bndv9ibV0sFa6+PGNvbCB3 vXJ1zN0zAKFqJcM3ZIicV125PwS yvNWpRqvka9wpe2ttrXv7WjZsLR EvotLdaDveCRM7q7EqZz46 I97nOXneJKHlNBJeWGSmALGcnDu lnc9rzZ1tTx1+AX0ii9vuvs89nR 48dHI+IKQhLOD1lShcNRbj ZGVqgW4vYPpoNeC5AIJsYlQlsU6 2mSUaSNdoRj1pgBerpUudWX8kAO Jvlyalk879BeMaq1xsTBUu kATkYOhpNJJ9E39oi7X7IMYvXJK lYCE6kOM6nK3fjZyeevhouNLgiM cpxmPbpDcbAUpoUDszM513 IHRvcDsnPlBhdGllbnQgTmFtZTo 0J9AoObu2UCRyfVyzME5ueZYiIZ qjFz5dkDcpmItqMX8bCIKu ffxcj748DxSnf4aiQMEzsASfEPv dXGG3L05cz6D3WUKeFDYsSBZ7kP X7qP2biZimjyxvoOTyeGoa bqQebNneVPuvFErxY452CPZueUk kLxPodaUlOZCycYO9OW75HF47vD Jap6M7kXL3I8NcEVTgakeb mvkchPS5TNOvAOOuhL62Py5gdJq cSv0pZYJuKOE4ZYHaxDAkL0DavO 8dLjDgLYJhJDEfX8KsiWCt RFuuE860HIxsGeR4URGexmYyF5C eIJCnkHrpLvX3t0U3Ud5SO8G5CL 77AA62rNQta0N1kYC6U2Tp ZHYmukmxmjdawYO6LHVzCQXiqY0 5Ug3cuSunSf1tOBOcLWJ1DVBdrV DmO4GgeT2bAwIfRAJoJIEc A3AftRGdSYsqH198HXdnNlA1STW dafDrN9VbVLBohCkgIdG9t5Y4Wy 7ORBb1IT23EZ87qMLxo6V4 qVK2U5PwYGBojwoqwhldbZI0PGG fRSZqmN74Ne3hhFioIb4wVZQyPG R5JDAstMYqE9WorS3sFqMf BBVjJRNtA5WfvAYmJGopB988UTd mFkN1IZTxwbVkV8UrGNPhoHzqDf P0d5O2Gp5AJPTfQY05EKF6 mEW2AH13IQ82K1QbAoauyIDkvNG +PHRhYmxlIHdpZHRoPScxMDAlJy GflKmqAB1sYo2xVVHiTJBu aKakeDZbYfNof2tqJHHzOCrzRG0 agTdlZ4DicHR5EHNpt3p4Pp95P0 9lX6ZsnKY+WDJavHZ7uBF3 qZ6cPaEvByP2RHntB659UaDvnVZ jMcagz3skz5tedHd9FnM6LSJxat GujDetOXL2g4EbLx62T68k IHdpZHRoPSIxNSUiIHZhbGlnbj0 ulJ5cRk5+UCKfeSH5cOZ3oQ8zAd QyFtF5SHusV822AcSqfHRm Dqxpe3bti2aaoWn6UlSgOBDqwpE omRxfUKY6u5VbQj82R2CdnQvdq1 YqBxm7yj40aWDdv1A2lNP8 B9XjMOYfhxutpCPpbJcjGC2yBTQ unvfaOWHvhR7tDHFfV7w5KkJjWp N6MTpwW4VnynG5VPRzbQOb SXozWQN3X48rh6T0QXKfIVJkETS 0nPK4gH6swNsjseswaVZokBhejm OqoVrwZSsdQZrfU656QEBp zYxiLILlzG6sKLXtlOIjeLtoIK3 zCKAdjuliEaTHSR9SLSYsYXoZLs ZSRVkgUzwvdGQ+PHRkIHN0 xJgqEZhdAWJykX7mSMPoF9h4DoN hSsM3DZefG9QzAUJomtagJa32xK 6zQwMxPhJ8XKvhL0PvvdE0 DYBpaGLzWLthMCZ1M49xz3W8SNS yMRLzMKR2rTY8eH3rhDryrclsrL VmdDsgdmVydGljYWwtYWxp Q219CGLonWcqDrPzUkCzFrL8LJu 6N3FkAcw5BMMtdKnoNU8meKLaKO vuNq0pzUuwkTxzQO5dKMRv ejedZICsjO9zTLPnlBBneKuqWS1 dUWXjrorun671XcIjFIU6ADOzbA GrO1HraU6vZbKzGDLyDRMl D5OdgIQySXcmH131ZRhsZoP9ORN fruJxF3ZrQXOqgGlaKiO9u4O4Xd 42MiBZZWFyczwvdGQ+PHRk VDF0yAtzGZsjMKPqzM1tPEAyB5n 9CrPdOlN2TBbhI6WsAYIyqykcDy 63cQ1pJkDvJbX5WBpuW4Xc mdA7AIHqfBZnCEbeTUK5J04om9A 7QVCnQKBdVER4aMR9nO9pdQfyop ogbGVmdDsgdmVydGljYWwt ULrvS572ZQAjzTofDb1toMP4I8X rPhq4UYYavFseYU1kyNEgZLybOu 2wjEzxwOrhTY6uIHJhzdbl KRWkaA0jAVOaeAEcdBqpED8iZNL ipsaib439JhEfCGL9VZFdmSUhK9 KbxS9tRrHuGXQcUYFjQ5Co pSCtTWfoQ956FWnkIrI3PWVshxA lY7BpILKwiSvuFxR5v9A6Ma1Vrq MyxNwrscO1Z5BmEbakzYR+ YD78FAZsYW55wKHsmLVit3kcgHw 8BqRxOECeGVI0dSbaIItiq0AkCF JoY32bzXFxw7V1RTPfmHkn yLOqQpTxuZK5nS3cAYlkeguvn3v erxrqZfhjd4gjrc70zT47Q38pXK dpZHRoPSIzMCUiIHZhbGln gz2vrD2eIj1+NGObgYT3mWP1cE0 fUsQhObY7RLluY894MiMuvAJkPz lck8vym6rokJl4ImAkIABk eeFadJtwWMD8i6EnDe40C70aKEm zVKLgPBWuCEBsRYRpcVzfsk2fkT 9wIi8+OR1gm2brxv18wA61 dHI+LPFwZDP8uEfeXGshNOGbeX4 cNSyrBbT2YZAwMpYqdY58gRGdXG raDe7clOqttKkbLV4zYRGa gwshb244NoKhf9mzKGAmsTTkOCe lYPF9M43hd3C5RIQgZOXaHLM1uF A6dL5opZeyraxmwUFnbIjw zkMuzPtkKLprQHusX843JWHllLy zQsUnaFHtD7ywulVFPQ6lQshmbH Q+VWErIFX0vNfvUPlpEZBo pV8jRAUcV9y0CxJtHzX8YTosC7C pwoL2VYMndKViXJJlpDJDtU0ibt dhg8wxvsmsGmRjOWIlATh1 HNk9HVVitVamFeYhGUD3QwJ5IIH 4eUWbyW8etPoxapjdjT1dVrp+Rk lOOjwvdGQ+XPDwECO2nOhu WYntKFYmoR5vKAIcO1a8InPhLiL 1OPhmB9WlfsP2TBYviEDyAWRjpQ OUrQ9agolmm5vnrmtqLmTf GHMmQFi1KAx2YVLmnXcbNoErNCI 3JaF3BMG5eUKmeR4apYpnlvpdsZ 9wOyc+TVJOOjwvdGQ+PHRk MBX7aNtoTTnhWSZihU8fNETxY7y 0OsKtVyW7QMbwR9JnjgN3CDXswF MaWJMsyLKUsN6kbehlg9ti loluZlHjBNLkNOv1BBo0UZTnmCh aNkErVTB3FfH0QMN9nQScbQ3usS zwnpwdzC5zVbh+HYP6LJS3 DB71GY64L2UtHzndaHBjgHQ+PHR hYmxlIHdpZHRoPScxMDAlJyBzdH idTQ0hKy6dMANbNLWpsLmf cHNl (more content not included)... Normal [facility] Operative Reporton Operative Report Patient: SANTIAGO MEIER [...] and preparations for the proposed operation continued.. [facility] Comment on above: Result Comment: Elec [...] list: All Problems Arthritis / SNOMED CT 0083491 / Confirmed Diabetes mellitus / SNOMED CT 446543629 / Confirmed High cholesterol / SNOMED CT 39337103 / Confirmed High blood pressure / SNOMED CT 3209634296 / Confirmed Physical Examination Vital Signs 04/18/2021 [...] br/min br/min (more content not included)... Normal [facility] Comment on above: Result Comment: [...] list: All Problems Arthritis / SNOMED CT 6176184 / Confirmed Diabetes mellitus / SNOMED CT 360029644 / Confirmed High cholesterol / SNOMED CT 09875520 / Confirmed High blood pressure / SNOMED CT 7451818028 / Confirmed Histories Past Medical History: No active or resolved past medical history items have been selected or recorded. Family History: Hypertension Father Diabetes mellitus type 2 Mother Brother Metastatic cancer Father Procedure history: Spine orthopedic surgery, lumbar (8933640198). Spine orthopedic surgery, cervical (0608170292). Arthroscopic repair of rotator cuff (1646197030). Carpal tunnel release (704547278). Appendectomy (503095848). Partial resection of colon (78907363). Social History Social & Psychosocial Habits Alcohol [...] results Radiology results ECG interpretation Condition Plan [place] [employer] (ASA) physical status classification: Class III. Anesthetic Preoperative Plan Anesthesia: General. , Regional Interscalene Block. Anesthetic plan, risks, benefits, and alternatives discussed with the patient and/or family. Risks discussed: nausea, vomiting, headache, sore throat, dental injury, serious complications. Patient verbalized understanding. Communication: face to face with (patient 5 minutes, Pt educated on the importance of smoking cessation.). Normal [facility] Comment on above: Result Comment: Elec tronically Signed By: Christiano Linton Jr, DO\radha\Date and Time Signed: 04/23/21 08:08 EDT Auto Diffon 04-19-2021 Basophils/100 WBC (Bld) 0.4 % Normal 0.0-2.0 [facility] Comment on above: Order Comment: Order Added by Discern Expert. Performed By: #### 1 [id number] #### [facility] [address] [place] [address] Basophils/Leukocytes Auto (Bld) [Pure # fraction] 0.0 E9/L Normal 0.0-0.2 [facility] Comment on above: Order Comment: Order Added by Discern Expert. Performed By: #### 1 [id number] #### [facility] [address] [place] [address] Eosinophils/100 WBC (Bld) 0.1 % Normal 0.0-8.0 [facility] Comment on above: Order Comment: Order Added by Discern Expert. Performed By: #### 1 [id number] #### [facility] [address] [place] [address] Eosinophils/Leukocytes Auto (Bld) [Pure # fraction] 0.0 E9/L Normal 0.0-0.5 [facility] Comment on above: Order Comment: Order Added by Discern Expert. Performed By: #### 1 [id number] #### [facility] [address] [place] [address] 31836 Lymphocytes/100 WBC (Bld) 14.0 % Normal 14.0-50.0 [facility] Comment on above: Order Comment: Order Added by Discern Expert. Performed By: #### 1 [id number] #### [facility] [address] [place] [address] 19221 Lymphocytes/Leukocytes Auto (Bld) [Pure # fraction] 1.7 E9/L Normal 1.0-4.0 [facility] Comment on above: Order Comment: Order Added by Discern Expert. Performed By: #### 1 [id number] #### [facility] [address] [place] [address] 37000 Monocytes/100 WBC (Bld) 5.9 % Normal 4.0-14.0 [facility] Comment on above: Order Comment: Order Added by Discern Expert. Performed By: #### 1 [id number] #### [facility] [address] [place] [address] [place] [address] Monocytes/Leukocytes Auto (Bld) [Pure # fraction] 0.7 E9/L Normal 0.2-1.0 [facility] Comment on above: Order Comment: Order Added by Discern Expert. Performed By: #### 1 [id number] #### [facility] [address] [place] [address] 27[address] Neutrophils/100 WBC (Bld) 79.6 % High 36.0-75.0 [facility] Comment on above: Order Comment: Order Added by Discern Expert. Performed By: #### 1 [id number] #### [facility] [address] [place] [address] 12845 Neutrophils/Leukocytes Auto (Bld) [Pure # fraction] 9.8 E9/L High 2.0-7.5 [facility] Comment on above: Order Comment: Order Added by Discern Expert. Performed By: #### 1 [id number] #### [facility] [address] [place] [address] 26988 BUNon 04-19-2021 Urea nitrogen [Mass/Vol] 19 mg/dL Normal 5-21 [facility] Comment on above: Performed By: #### 1 [id number] #### [facility] [address] [place] [address] 643[address] CBC w/ Auto Diffon Erythrocyte distribution width (RBC) [Ratio] 13.1 % Normal 10.9-14.2 [facility] Comment on above: Performed By: #### 1 [id number] #### [facility] [address] [place] [address] 61162 Hematocrit (Bld) [Volume fraction] 42.1 % Normal 37.7-49.0 [facility] Comment on above: Performed By: #### 1 4882989 #### [facility] [address] [place] [address] 35051 Hemoglobin (Bld) [Mass/Vol] 14.0 g/dL Normal 13.5-17.5 [facility] Comment on above: Performed By: #### 1 2402167 #### [facility] [address] [place] [address] MCH (RBC) [Entitic mass] 31.5 pg Normal 27.0-34.0 [facility] Comment on above: Performed By: #### 1 [id number] #### [facility] [address] [place] [address] MCHC (RBC) [Mass/Vol] 33.3 g/dL Normal 31.4-36.0 [facility] Comment on above: Performed By: #### 1 [id number] #### [facility] [address] [place] [address] MCV (RBC) [Entitic vol] 94.4 fL Normal 80.0-100.0 [facility] Comment on above: Performed By: #### 1 [id number] #### [facility] [address] [place] [address] 92743 Platelet mean volume (Bld) [Entitic vol] 9.5 fL Normal 6.4-10.8 [facility] Comment on above: Performed By: #### 1 6940776 #### [facility] [address] [place] [address] Platelets (Bld) [#/Vol] 177.0 E9/L Normal 150.0-500. 0 [facility] Comment on above: Performed By: #### 1 7000974 #### [facility] [address] [place] [address] RBC (Bld) [#/Vol] 4.5 E12/L Normal 4.3-5.9 [facility] Comment on above: Performed By: #### 1 [id number] #### [facility] [address] [place] [address] WBC corrected for nucl RBC Auto (Bld) [#/Vol] 12.3 E9/L High 4.0-11.0 [facility] Comment on above: Performed By: #### 1 [id number] #### [facility] [address] [place] [address] Capillary Glucose POCon 03-28 Glucose [Mass/Vol] 226 mg/dL High 55-99 [facility] Comment on above: Result Comment: Joanna daly RN/ Performed By: #### 2 [id number] #### [facility] [address] [place] [address] Glucose [Mass/Vol] 271 mg/dL High 55-99 [facility] Comment on above: Result Comment: Joanna daly RN/ Performed By: #### 2 [id number] ####[facility] [address] [place] [address] Consent for Anesthesiaon Consent for Anesthesia [id number]#1.00CD:127 Normal [facility] Creatinineon 04-19-2021 Creatinine [Mass/Vol] 0.7 mg/dL Normal 0.5-1.3 [facility] Comment on above: Performed By: #### 1 [id number] #### [facility] [address] [place] [address] Discharge Instructionson Discharge Instructions [id number]#1.00CD:127 Normal [facility] Inpatient Clinical Summaryon 04-19-2021 Inpatient Clinical Summary [address] [address] Clinical Summary Person Information: Name: KOKO MEIER Age: 60 Years : 1960 Sex: Male PCP: JOSH MELVIN DO Marital Status: Phone: [phone] Race: White Ethnicity: Non- or Language: Ukrainian Visit Id: Visit Reason: OA RIGHT SHOULDER Speciality: Acuity: Enc Type: Inpatient Med Service: Surgery Arrival: 04/18/2021 08:03:48 Discharge: Dispo Type: Address: [address] [place] [address] [id number] Provider Notes: Diagnosis: Arthritis of shoulder region, [...] Follow up: With: Address: When: Kwame Yang [address] [id number] Business (1) 04/26/2021 2:45 PM Patient Education Information: Danyell Yang - Shoulder Replacement (Custom) Normal [facility] Inpatient Patient Summaryon 04-19-2021 Inpatient Patient Summary [address] [address] Patient Discharge Instructions PERSON INFORMATION [...] Follow up: With: Address: When: Kwame [place] [address] Business (1) 04/26/2021 2:45 PM In the [...] New Medications [facility], [address] [place] [id number], [phone] acetaminophen-oxycodone (Percocet 325 mg-5 mg Tab) 1-2 [...] times a day. (more content not included)... [facility] Interdisciplinary Note - Mir e Manageron 04-19-2021 Interdisciplinary Note - Car Dropper PT is awake and alert in bed, await rounds with Dr. Yang. . PCP verified and Insurance information reviewed and DME discussed. Contact information provided and white board updated. No family present at this time. Pt lives with and [place] Inpatient status reviewed, Medicare rights reviewed and form signed, original provided to pt. Declines any concerns or anticipated DC needs. Plan to DC home today 04/19. MADELINE received a phone call from hospital labor supervisor Viri. States pt Ct called and [...] waiting for approval. MADELINE contacted pt Ct [phone] and updated. Viri hospital labor supervisor updated. [facility] Comment on above: Result Comment: Elec tronically Signed By: Petty KOO, Afia\.renard\Date and Time Signed: 04/19/21 15:36 EDT IntraOperative Documentson 0 6-24-2021 IntraOperative Documents [id number]#1.00CD:127 Normal [facility] IntraOperative Documents [id number]#1.00CD:127 Normal [facility] Lyteson 04-19-2021 Anion gap [Moles/Vol] 11 mmol/L Normal 6-16 [facility] Comment on above: Performed By: #### 2 [id number] #### [facility] [address] [place] [address] Chloride [Moles/Vol] 103 mmol/L Normal 101-111 [facility] Comment on above: Performed By: #### 2 [id number] #### [facility] [address] [place] [address] CO2 [Moles/Vol] 30 mmol/L Normal 21-31 [facility] Comment on above: Performed By: #### 2 [id number] #### [facility] [address] [place] [address] Potassium [Moles/Vol] 4.0 mmol/L Normal 3.5-5.3 [facility] Comment on above: Performed By: #### 2 [id number] #### [facility] [address] [place] [address] Sodium [Moles/Vol] 140 mmol/L Normal 135-145 [facility] Comment on above: Performed By: #### 2 [id number] #### [facility] [address] [place] [address] Message from Medicareon 03-28 Message from Medicare [id number]#1.00CD:127 Normal [facility] Patient Education - Texton 0 04-19-2021 Patient Education - Text [place], [place] [facility] DISCHARGE INSTRUCTIONS: SHOULDER REPLACEMENT [...] persistent vomiting. Kwame Yang, DO [facility] [address] [place] [address] Reviewed: [facility] Physician Orderon 04-19-2021 Physician Order [id number]#1.00CD:127 [facility] Preoperative Documentson Preoperative Documents [id number]#1.00CD:127 [facility] Preoperative Documents [id number]#1.00CD:127 Normal [facility] Progress Note-Physicianon Progress Note-Physician Patient: [...] Pressure 80 mmHg SpO2 92 % Normal [facility] Comment on above: Result Comment: Elec tronically Signed By: Kwame Yang DO\.br\Date and Time Signed: 04/19/21 12:55 EDT eGFRon 04-19-2021 GFR/1.73 sq M.predicted among blacks MDRD (S/P/Bld) [Vol rate/Area] mL/min/{1.73_m2} Normal >=59 [facility] Comment on above: Order Comment: Order added by Discern Expert. Result Comment: eGFR is race adjusted. AA=. Performed By: #### 2 [id number] #### [facility] [address] [place] [address] GFR/1.73 sq M.predicted among non-blacks MDRD (S/P/Bld) [Vol rate/Area] mL/min/{1.73_m2} Normal >=59 [facility] Comment on above: Order Comment: Order added by Discern Expert. Result Comment: Plaster Maker aracely kidney disease could be indicated at eGFR's of less than 60 mL/min/1.73m2. Kidney failure is indicated at less than 15 mL/min/1.73m2. Performed By: #### 2 [id number] #### [facility] [address] [place] [address] ABO/Rhon 04-18-2021 ABO/Rh Positive Invalid Interpretation Code [facility] Comment on above: Performed By: #### 2 [id number], [id number], [id number], [id number] ####[facility] [address] [place] [address] ABO/Rh History Checkon 04-18 ABO/Rh History Check Verified Hx Blood Type Normal [facility] Comment on above: Performed By: #### 2 [id number], [id number], [id number], [id number] ####[facility] [address] [place] [address] ABSC Tubeon 04-18-2021 ABSC Tube Interp Negative Normal [facility] Comment on above: Performed By: #### 2 [id number], [id number], [id number], [id number] ####[facility] [address] [place] [address] Blood Bank ID#on 04-18-2021 BBID# [id number] Invalid Interpretation Code [facility] Comment on above: Performed By: #### 2 [id number], [id number], [id number], [id number] ####[facility] [address] [place] [address] Blood Bank Slipon 04-18-2021 Blood Bank Slip [id number]#1.00CD:127 Normal [facility] Capillary Glucose POCon 03-28 Glucose [Mass/Vol] 293 mg/dL High 55-99 [facility] Comment on above: Result Comment: Eva dav Meter Performed By: #### 2 [id number] #### [facility] [address] [place] [address] Glucose [Mass/Vol] 312 mg/dL High 55-99 [facility] Comment on above: Result Comment: Joanna daly RN/ Performed By: #### 2 [id number] #### [facility] [address] [place] [address] Glucose [Mass/Vol] 241 mg/dL High 55-99 [facility] Comment on above: Result Comment: Eva demarco Meter Performed By: #### 2 [id number] #### [facility] [address] [place] [address] Consent for Procedure/Surger yon 04-18-2021 Consent for Procedure/Surgery [id number]:127 Normal [facility] Consent for Treatmenton 03-28 Consent for Treatment [id number]#1.00CD:127 Normal [facility] H&P Updateon 04-18-2021 H&P Update [id number]#[id number]:127 Normal [facility] Main OR PACU I Recordon 03-28 Main OR PACU I Record PACU Phase I Docum ent Type FT Summary Primary Physician: Kwame Yang DO Finalized Date/Time: 04/18/21 16:44:21 Pt. Name: KOKO MEIER/Sex: 1960 Male Med Rec #: [id number] Physician: Kwame Yang DO Financial #: [id number] Pt. Type: O Room/Bed: [place] [address] Admit/Disch: 04/18/21 08:03:48 - Institution: Case Times [...] Level Acuity Level I Last Modified By: Kiera Knox RN 04/18/21 16:44:17 Finalized By: Keira Knox RN Document Signatures Signed By: Keira Knox RN 04/18/21 16:44 Normal [facility] Monitor Recordon 04-18-2021 Monitor Record [id number]:127 Normal [facility] Operative Reporton Operative Report Patient: SANTIAGO MEIER [...] 3. size 3 humeral insert 4. Revers [place] size 9 stem with 39 (+2 right) [...] the gregg (more content not included)... Normal [facility] Comment on above: Result Comment: Elec tronically Signed By: Kwame Yang DO\.renard\Date and Time Signed: 04/18/21 12:52 EDT Outpatient Surgery Discharge Instructionon 04-18-2021 Outpatient Surgery Discharge Instruction [address] [address] Patient Discharge Instructions PERSON INFORMATION [...] THE NEAREST EMERGENCY ROOM OR CALL 911 I, KOKO MEIER, have received the attached patient education materials/instructions and have verbalized understanding: May we do a follow up call? Yes No I was present when discharge instructions were given ___ Patient Signature Date Clinican/Nurse Signature Date Follow up: With: Address: When: Kwame Yang [address] [place] [id number] Business (1) 04/26/2021 2:45 PM Pharmacy Information: [...] to serve you. Thank you for choosing [facility] HERE ARE THE MEDICATION CHANGES THAT [...] times a day. PATIENT EDUCATION INFORMATION Instructions: [place], [facility] DISCHARGE INSTRUCTIONS: SHOULDER REPLACEMENT [...] persistent vomiting. Kwame Yang, DO [facility] [address] [place], [place] [id number] Reviewed: Normal [facility] UA With Cult Reflexon 2020 Bilirubin Ql (U) Negative Normal Negative [facility] Comment on above: Performed By: #### 1 [id number] #### [facility] [address] [place] [address] Clarity (U) CLEAR Normal Clear [facility] Comment on above: Performed By: #### 1 [id number] #### [facility] [address] [place] [address] Color (U) YELLOW Normal Yellow [facility] Comment on above: Performed By: #### 1 [id number] #### [facility] [address] [place] [address] Epithelial cells.squamous LM.HPF (Urine sed) [#/Area] 0-2 Normal 0-2 [facility] Comment on above: Performed By: #### 1 [id number] #### [facility] [address] [place] [address] Glucose Test strip (U) [Mass/Vol] 2+ Abnormal Negative [facility] Comment on above: Performed By: #### 1 [id number] #### [facility] [address] [place] [address] Hemoglobin Ql (U) Negative Normal Negative [facility] Comment on above: Performed By: #### 1 [id number] #### [facility] [address] [place] [address] Ketones (U) [Mass/Vol] Negative Normal Negative [facility] Comment on above: Performed By: #### 1 [id number] #### [facility] [address] [place] [address] [place].plasma/[place] .RBC (Bld) [Mass ratio] 0-3 Normal 0-3 [facility] Comment on above: Performed By: #### 1 [id number] #### [facility] [address] [place] [address] Mucus Ql (Urine sed) TRACE Normal [facility] Comment on above: Performed By: #### 1 [id number] #### [facility] [address] [place] [address] Nitrite Ql (U) Negative Normal Negative [facility] Comment on above: Performed By: #### 1 [id number] #### [facility] [address] [place] [address] pH (U) 6.0 [pH] Invalid Interpretation Code 5.0-9.0 [facility] Comment on above: Performed By: #### 1 [id number] #### [facility] [address] [place] [address] Protein (U) [Mass/Vol] TRACE Abnormal Negative [facility] Comment on above: Performed By: #### 1 [id number] #### [facility] [address] [place] [address] Specific gravity (U) [Rel density] 1.020 Invalid Interpretation Code 1.005-1.03 0 [facility] Comment on above: Performed By: #### 1 [id number] #### [facility] [address] [place] [address] Type of Urine collection method Cohn Normal [facility] Comment on above: Performed By: #### 1 [id number] #### [facility] [address] [place] [address] Urobilinogen Qn (U) 0.2 {Rolando'U}/dL Normal 0.0-1.0 [facility] Comment on above: Performed By: #### 1 [id number] #### [facility] [address] [place] [address] WBC Auto Ql (U) Negative Normal Negative [facility] Comment on above: Performed By: #### 1 [id number] #### [facility] [address] [place] [address] WBC LM.HPF (Urine sed) [#/Area] 0-5 Normal 0-5 [facility] Comment on above: Performed By: #### 1 [id number] #### [facility] [address] [place] [address] XR Shoulder Complete Righton 04-18-2021 XR Shoulder [...] Zapien MD Transcribed by: BECKY Technologist: CHARLY, Joe [facility] Outside Recordson 04-17-2021 Outside Records [id number]#[id number]:127 Normal [facility] Outside Recordson 04-09-2021 Outside Records [id number]#1.00CD:127 Normal [facility] CT Upper Extremity w/o Contr ast Righton [...] Warren MD Transcribed by: BECKY Technologist: CONSUELO [facility] Coding Summary.on 04-04-2021 Coding Summary. CD:[id number] Gh0bWw+ PGhlYWQ+ZW7JNHRlO03uvZTihA5 QO6fYTJ4IAMGJIUHJCY3PHY4ojW I9BWmnU0RasbDj DrkhcUFiYJ86CMc2JUQ0sXcrSUa gnF4gnPQqR0k1NyJnEN27gH53LT beTTGrKdJ9AjBejbygzWMo O8poYiZbiBDpLlp+PHRhYmxlIHd hFYQnXZebLMBuGwOffLycDL3mLv 9yZGVyLWNvbGxhcHNlOiBj d8kxMBAxSBqnNS2grUmgF7IdkKM 2UZOph1j3Bv63sBE+LLZuXHM2wT gzHZkbv087HkVis8wbKWN8 gMSoOUcqHRV6L87bn2E2SQIuXQX wEQW4vCC2mX7qnEpcievxW5BtlA UkRdM9ERI2lNJxcT4zdUsa gxaghQ2oYvb+O45RYP6WYOONNO9 CPfl2V3GsPsllwCU+ER06XEWaFO 02lXUdiYXya6uloIr8MlHw TQJvKJH4lCsfGMeml2YkRGExK48 mhJOzt6M5OLNiaFiitACjWbQfwM L3zL8bLRmnmlttp1zprdfe Uokfv1kuxq06dN49S28nCFvoACI bPRF5TQLvMFNxhHiife1qhZ3sXa 8+ZTdql5yud9lbvMp1ZsBa LSAmaxPudHicYNN7m1OwBa65M7Y zrYxrj9EvRfn0sl29jNCeu1A2eR F6IMllANIrpO4jBDbcEbM6 DDPlWfCkyC59xPUqBNqjPj1noHh igJtiZG2tHMPnpfxxBJBznA9uEJ VkyPWwbMkfIS9fKMMwjnye u892MqGcMSX4XYOmpURaW1BigN3 vEtYtEFWjVZZeU6KatLIbXVplT1 80HKekXdQ0NJGirkKpH1Jg LZOwzRyjWaX8r8C9Ox6Ps7Csdgc oIWA9GAhrOWX1YeK4BrPmNlN4V9 DdKnm8AWWfbYsvFX0fE8Sy CBEkwotxrsprjTJ6DZJhLFMmrW5 4lOFaUKipFz1wb1B6r333QNRvFI XlzO85Wv4lmRkkLMIieQYF wI9wevhik0spgsehSyKkPTGdXXa 8UUc2ZOMquEuhAfYpOTJ1OxB5XU I7cFVdcF4cyOuinaptmJ9h Oyc+O88unO4qTEQ2UGQ6euwvXAQ nhfOeGG87II70E3JiLbwrsXFkyZ U+AEHgjxCpoUksAF3lTiBu q3hxb8SmYVpuD5BhHINmYLdfQxy 7IIFxWKR0yKU6fS3bFKLuYWhdo7 A3dNH6S1ShjjVypm6ay8cn MIZdXUuxW04zkXVsu4C5SFQcjMD 6FQUggWmcPkFmhA71Ddx+PGNvbG leb1NbNkprq3wmo7eyiVg2 PcWjGRWdswXbcArqEGQ2g4LhMq3 9Z85hCUojECNhOISqYKRhYKRikI mwrd0ttI2pTa8+PGNvbCB3 yHT4iZ2cEBGqAzF5JLzsB750FiN tvUGsNxhxj4wfy7ssmPy8OwNlFS OrqnMmcNzeZJE6i5KmFk05 Y81bCGpeNDBbMTAwAOYmPLMzkAd vux2ufN6qLj9+WO1eb3uyid64fH 48dHI+ICJtAYS0dDfuYBou VKSiyV3aZJsvTvM5MTDaFcOceB1 1tKNcIVgdZu7tzYsqkFanAN2eFD Pntzhul862DwQmm1saCBXj uMQaBEghDFR8R43zy1F0LVNgLAP sQZG0cCZ4iK4wsSfcmzmhhEUmxO hroiIavOpwJYlpQPweU491 IHRvcDsnPlBhdGllbnQgTmFtZTo 1R3PsOum7MNHcmCtpBO4gwHAdMQ ceRw9meKvrsKbtEX6fYEFa tqwqj528RnOtg1jtGQZfpMJcQTl vNMO9H17ar1Q3AUZlLMQbFWQ5sY A2xJ9knBufleemtVVdlBrr gaFioSyaCLegWVqiR312XPUxdWb vZrKflzRqLWXzwMT3PB72QP43jL Rci1U0zBK5X7NiESBjliza lwulxTN3FYJiZPGicL46Rc5hpYo wSk8nWWQkQYJ7HYVilRSbH8CguN 6tKxNwUJUfVIOnQ5BbjZAq YWpgK132SUufBgF5CEDbzaGnH1E iIIYerQhgUhS6g3H8Rc3NP7P9PT 47JZ17yIBul8E2xFV7R4Fg HJGqnyapxjlbeDB6YJIhCXMrhR6 0Zr8htBoxEq0tAGPqZCO1SKMtoU PkT8DanR3lBvPeXYVdSUIr A9WewKPiSYurC614VRidHzF3JTY bseTlP4OhEGEojTiaNbY8h1X8Vd 9QGDv4TK90QU93xDJgw6Y9 mWY8B6MgDWZcayfeyegalUV7YTT zJXXpsX08Ik6wfPalUc7vBPWqLQ P6IPYeiPNaD9KqoL1dDcXd MSBnJAWhJ2SklTOqQWrzA085QKc wEfX3HSAdgxJeQ4WeONNdwIaoUk N4z4G6El9KYXMgKE56MTB6 bYJ9GE65SM09N1LhRxkaoLVpcYG +PHRhYmxlIHdpZHRoPScxMDAlJy HcpUuwEP0wXm4rWWLgDODo lLeuuZOnMcYwd0cbDHKfISyvJV4 tmWhzA2XgtWQ1NSKvv0r1Xw03H5 0qQ8EqtNV+NWImnHY7jCC8 nW3jMqDbXhH1WMlfJ693ZhCdyKP aZmiqb8yni7svgDa0PgG3WZJsbq XloRqtXRY1t8LqSt52Y02n IHdpZHRoPSIxNSUiIHZhbGlnbj0 fjM5fSh8+LIIsfLJ9qIO3fK4cEu ZeDpG0SCleT963VhKzcTVu Cdlhp1ciu6omzZt0CrLzBLWfwnG lqBunQZZ9c6KpNt88M1GvlSogr4 VuDhl3lq23ySDjb0P4iXM8 U3FmZOFygkvvvECsfDhuGL9nLYD sjoqlQEDoeD5lXRSyB8x7PwUpVb I7YCffG4HauyW5XAEgqELp VCfpDPS2R20rm7B6ERLgUOJyZGH 2fMN3gZ0skIhxzsckcQKpyFmrwj HxxAguDVimPHbyM112SZXq dEpzQAJxkB9hNOSdbINpzPobUQ5 zBCDogwvoUsDYYS0ADIEkHFpRLr ZSRVkgUzwvdGQ+PHRkIHN0 xNmoSVwrGOUoqU3jMNGoE4t5JfL cHaE4PLcyV1BkNJZkpfohSg95dF 1wEtXeKrR9XOojN8RylvP6 HOLgoJKnGMmwISL3X01fd1U1SPV xWFTlDUH5rBA6mV3tlBknkaddkV VmdDsgdmVydGljYWwtYWxp G637VYHxuVfdLdAaFiYkInL1VWx 1W0BlGxl5ZCZbzActGR8cfQThWE kfUt3szStbfSieCU0rGBFb xareQMGcaC8eQVRatQPqeCilDW3 uPUBywbahg878KeEgRBI1WTCkjE YsU7XmtL6mFeQsDDKdOJSk T5IywNBgDNgdL429HIbdKtK3MBI uxjWoN0BmDEZodVuiVaW7k8R4Jw 42MiBZZWFyczwvdGQ+PHRk DYU0nPjvAGdkSIWddT2xALPkJ9x 5NbIxPmK8JPclQ0QbXQGdythxRx 52nA5vWaOsPfJ2HQspT1Xn pyL2BYWilQAtTNqoUZW9B86jh4O 1STEeUHXkIRS1xUE5dH4cwJmaoc ogbGVmdDsgdmVydGljYWwt JPnpK658PMUiuKsgNj3ymXK6S5J vBbs6CCAfrWyxDP3ybGToVKnaDd 9meMuhfBhzUG5cPIKbojhc DGNiaA8tVQVfbOUweHvwIF0mXIP abysjm516AvSkEPC4XNWscNGoM9 PugY8tEkJwZTUdBLYbD8Cz oWMdAHhmX024KJkaLlF8ZQUdwhA oK7OzRQMuqJeuByT1s4R4Xh7WwZ XeCWWfVF52ZS83LD39Q5Rs PjwvdGFibGU+PHRhYmxlIHdpZHR kIRmdAALbKpCljVtiRT7wTg6fJX XvPRMinVoimWCoHvWrt8gm FSOnCQzcYC0vdJfpV4NvbEP8JVA wy0x2If03V23xB8XbaWJ+PGNvbC I5qHW7kD2hHnDhDwL4GMrp N526JoCkyWOmFzlux2joi1khcBd 9KlWvQOHqiaPlnXhiRKH4x4RhOc 75R89dSUovETQbMHHuFDBx ZLEhiCjyrr9xlB8lCr3+PGNvbCB 9wKX8rT5pAkFuAoN2UYavN379Yb HgkFSlZntiP47aW8PdgDA+ OSVzBde3RNTahAozPI8jbCDcOMe bJl7yKJU0IsPaXbTpSPvhY9CqXF ZzujyhvimboPK9PZDlGCXp aE55Lv3svCcxRy9qYPMgKZH5XDO qgLTaQ4BeqW0kZkWcTBIdMWErT7 FkpCWpAUupC302MHecCyS4 YLOthyAdK0TuNPMkeFddFkR3i8K 3Pf1ZfLnxnNWeQB5xBcPoRXu7Z0 JnNgs8UKZtvCwkYK1guTOw SRbaMq8msBiahVbtBQ9cCONrgdb wu745QuUnh1ebARDmzBObUWrgWQ E2F05tu2K1DEEoRPLhBSL6 rHG6bF2tkMjlbxlnxNFxkVrdbuO iqSedNIdcGAkeM804RSUdgYvfGd BQNar2O4MeVbz6MKKnfUrh RM4miVCvIDznVt6rmSeusHimBC2 qELYpqnofi953ApLmr6qiCFMsjX UfNUcjXLD2W65sq8S9PQBa SRLsPMQ0jOT5uZ9hdXszultnwLF zeJtcowIppDqrNWjcJKrcT099PN EmfIteEn5FCbi3T2SlTco0 YIRlhXuzBP6wqBYlHWssXa5xwKf cyObmQO2iFZAxyhmmf031UqHta6 gzTBTpcKIkKGepNAK5C05f e9J6VQHgTPSmJVA1yWO7aF6wrFt nbjogbGVmdDsgdmVydGljYWwtYW kuF394FBXqmOgnJfTwfHQq OjwvdGQ+PG27jg42J6NvGektNkm 8TEKpNSM0iLS2gS6uOYHjGAldw2 J5fHL1V2BkuzUvze6vs7ox YXBz (more content not included)... Normal [facility] Immunization Recordson 04-04 Immunization Records [id number]#[id number]:127 Normal [facility] ABO/Rh Retypeon 04-03-2021 ABO/Rh Retype Interp Positive Invalid Interpretation Code [facility] Comment on above: Performed By: #### 1 [id number] ####[facility] [address] [place] [address] BUNon 04-03-2021 Urea nitrogen [Mass/Vol] 22 mg/dL High 5-21 [facility] Comment on above: Performed By: #### 1 [id number] #### [facility] [address] [place] [address] CBC w/Indiceson 04-03-2021 Erythrocyte distribution width (RBC) [Ratio] 12.7 % Normal 10.9-14.2 [facility] Comment on above: Performed By: #### 1 [id number] #### [facility] [address] [place] [address] Hematocrit (Bld) [Volume fraction] 47.4 % Normal 37.7-49.0 [facility] Comment on above: Performed By: #### 1 [id number] #### [facility] [address] [place] [address] Hemoglobin (Bld) [Mass/Vol] 16.1 g/dL Normal 13.5-17.5 [facility] Comment on above: Performed By: #### 1 [id number] #### [facility] [address] [place] [address] MCH (RBC) [Entitic mass] 31.8 pg Normal 27.0-34.0 [facility] Comment on above: Performed By: #### 1 [id number] #### [facility] [address] [place] [address] MCHC (RBC) [Mass/Vol] 34.1 g/dL Normal 31.4-36.0 [facility] Comment on above: Performed By: #### 1 [id number] #### [facility] [address] [place] [address] MCV (RBC) [Entitic vol] 93.2 fL Normal 80.0-100.0 [facility] Comment on above: Performed By: #### 1 [id number] #### [facility] [address] [place] [address] Platelet mean volume (Bld) [Entitic vol] 9.3 fL Normal 6.4-10.8 [facility] Comment on above: Performed By: #### 1 [id number] #### [facility] [address] [place] [address] Platelets (Bld) [#/Vol] 168.0 E9/L Normal 150.0-500. 0 [facility] Comment on above: Performed By: #### 1 [id number] #### [facility] [address] [place] [address] RBC (Bld) [#/Vol] 5.1 E12/L Normal 4.3-5.9 [facility] Comment on above: Performed By: #### 1 [id number] #### [facility] [address] [place] [address] WBC corrected for nucl RBC Auto (Bld) [#/Vol] 8.0 E9/L Normal 4.0-11.0 [facility] Comment on above: Performed By: #### 1 [id number] #### [facility] [address] [place] [address] Consent for Treatmenton Consent for Treatment [id number]#1.00CD:127 Normal [facility] Creatinineon 04-03-2021 Creatinine [Mass/Vol] 0.7 mg/dL Normal 0.5-1.3 [facility] Comment on above: Performed By: #### 1 [id number] #### [facility] [address] [place] [address] Glucoseon 04-03-2021 Glucose [Mass/Vol] 249 mg/dL High 55-199 [facility] Comment on above: Performed By: #### 1 [id number] #### [facility] [address] [place] [address] EuyA7sex 04-03-2021 HbA1c (Bld) [Mass fraction] 7.9 % High <=5.9 [facility] Comment on above: Performed By: #### 7 [id number] #### [facility] [address] [place] [address] Lyteson 04-03-2021 Anion gap [Moles/Vol] 15 mmol/L Normal 6-16 [facility] Comment on above: Performed By: #### 1 [id number] #### [facility] [address] [place] [address] Chloride [Moles/Vol] 94 mmol/L Low 101-111 [facility] Comment on above: Performed By: #### 1 [id number] #### [facility] [address] [place] [address] CO2 [Moles/Vol] 27 mmol/L Normal 21-31 [facility] Comment on above: Performed By: #### 1 [id number] #### [facility] [address] [place] [address] Potassium [Moles/Vol] 4.2 mmol/L Normal 3.5-5.3 [facility] Comment on above: Performed By: #### 1 [id number] #### [facility] [address] [place] [address] Sodium [Moles/Vol] 132 mmol/L Low 135-145 [facility] Comment on above: Performed By: #### 1 [id number] #### [facility] [address] [place] [address] XR Chest 2 Viewson XR Chest 2 [...] spine. FINAL REPORT Dictated: 04/03/2021 3:15 pm Gregory MATUTE, Manohar Lee Signed (Electronic Signature): 04/03/2021 3:15 pm Signed by: Manohar Jenkins MD, V. Transcribed by: BECKY Technologist: JOSE ELIAS Normal [facility] eGFRon 04-03-2021 GFR/1.73 sq M.predicted among blacks MDRD (S/P/Bld) [Vol rate/Area] mL/min/{1.73_m2} Normal >=59 [facility] Comment on above: Order Comment: Order added by Discern Expert. Result Comment: eGFR is race adjusted. AA=. Performed By: #### 1 [id number] #### [facility] [address] [place] [address] GFR/1.73 sq M.predicted among non-blacks MDRD (S/P/Bld) [Vol rate/Area] mL/min/{1.73_m2} Normal >=59 [facility] Comment on above: Order Comment: Order added by Discern Expert. Result Comment: Plaster Maker aracely kidney disease could be indicated at eGFR's of less than 60 mL/min/1.73m2. Kidney failure is indicated at less than 15 mL/min/1.73m2. Performed By: #### 1 [id number] #### [facility] [address] [place] [address] Physician Orderon 03-01-2021 Physician Order [id number]#1.00CD:127 [facility] Pre-Certification Formon Pre-Certification Form [id number]#1.00CD:127 [facility] Physician Orderon 02-28-2021 Physician Order [id number]#1.00CD:127 [facility] Coding Summary.on 12-21-2020 Coding Summary. CODING DATE: [address] [facility] STATUS: Home (Routine DC) PAYOR: Medicare [...] CphT Date Saved: 12/21/2020 01:14 pm Normal [facility] CT Upper Extremity w/ Contra Righton 12-20-2020 CT Upper Extremity w/ Contrast [...] Report Acromioclavicular Joint: Severe degenerative changes with [id number]-[id number]-[id number] contact, extensive subchondral cystic changes involving the [...] Signature): 12/20/2020 12:51 pm Signed by: Jorge Zapein MD Transcribed by: BECKY Technologist: ELLA Technical Comments GFR (mL/min/1/73m2) . Contrast: None Contrast amount in ml's: 0 [facility] Consent for Treatmenton 11-28 Consent for Treatment [id number]#1.00CD:127 [facility] Creatinineon 12-20-2020 Creatinine [Mass/Vol] 0.7 mg/dL Normal 0.5-1.3 [facility] Comment on above: Performed By: #### 2 [id number], [id number] #### [facility] [address] [place] [address] Physician Orderon 12-20-2020 Physician Order [id number]#1.00CD:127 [facility] RAD - Consent to Procedureon 12-20-2020 RAD - Consent to Procedure [id number]#1.00CD:127 [facility] XR Inj Shoulder Arthrogram R charmaine 12-20-2020 XR Inj Shoulder Arthrogram Right Exam [...] shoulder joint. Patient tolerated the procedure well. [employer] Finisher image shows minimal calcification adjacent to the [...] Dose: Ka,r in mGy = 21 Normal [facility] eGFRon 12-20-2020 GFR/1.73 sq M.predicted among blacks MDRD (S/P/Bld) [Vol rate/Area] mL/min/{1.73_m2} Normal >=59 [facility] Comment on above: Order Comment: Order added by Discern Expert. Result Comment: eGFR is race adjusted. AA=. Performed By: #### 2 [id number], [id number] #### [facility] [address] [place] [address] GFR/1.73 sq M.predicted among non-blacks MDRD (S/P/Bld) [Vol rate/Area] mL/min/{1.73_m2} Normal >=59 [facility] Comment on above: Order Comment: Order added by Discern Expert. Result Comment: Plaster Maker aracely kidney disease could be indicated at eGFR's of less than 60 mL/min/1.73m2. Kidney failure is indicated at less than 15 mL/min/1.73m2. Performed By: #### 2 [id number], [id number] #### [facility] [address] [place] [address] Physician Orderon 12-08-2020 Physician Order [id number]#1.00CD:127 [facility] Pre-Certification Formon Pre-Certification Form [id number]#1.00CD:127 [facility] Consent for Treatmenton Consent for Treatment [id number]#1.00CD:127 [facility] RAD - MISCon 12-05-2020 RAD - MISC [id number]#1.00CD:127 [facility] RAD - MRI Screening Formon 12-05-2020 RAD - MRI Screening Form [id number]#1.00CD:127 [facility] Physician Orderon 11-29-2020 Physician Order [id number]#1.00CD:127 [facility] Pre-Certification Formon Pre-Certification Form [id number]#1.00CD:127 [facility] Vital Signs Date Time Vital Sign Value Performing Clinician Facility 01-19-2024 18:15-0400 Heart rate 90 /min DO Josh Bunting Work Phone: [facility] 01-19-2024 18:15-0400 Inhaled oxygen flow rate 1 L/min DO Josh Bunting Work Phone: [facility] 01-19-2024 18:15-0400 Respiratory rate 16 /min DO Josh Bunting Work Phone: [facility] 01-19-2024 18:15-0400 SaO2% (BldA) [Mass fraction] 92 % DO Josh Bunting Work Phone: [facility] 01-19-2024 18:00-0400 Diastolic blood pressure 65 mm[Hg] DO Josh Bunting Work Phone: [facility] 01-19-2024 18:00-0400 Systolic blood pressure 134 mm[Hg] DO Josh Bunting Work Phone: [phone])[phone] [place] [address] 01-19-2024 17:26-0400 Body temperature 97.5 [degF] DO Josh Bunting Work Phone: 3(723)[phone] [place] [address] 01-19-2024 13:53-0400 Body height 167.64 cm DO Josh Bunting Work Phone: 4(553)[phone] [place] [address] 01-19-2024 13:53-0400 Body mass index (BMI) [Ratio] 38.7 kg/m2 DO Josh Bunting Work Phone: [facility] 01-19-2024 13:53-0400 Body weight 108.86 kg DO Josh Bunting Work Phone: [facility] 11-11-2023 10:37-0500 Body height 170.2 cm Maryann Rubalcava MD Work Phone: [facility] 11-11-2023 10:37-0500 Body mass index (BMI) [Ratio] 36.02 kg/m2 Maryann Rubalcava MD Work Phone: [facility] 11-11-2023 10:37-0500 Body temperature 98.6 [degF] Maryann Rubalcava MD Work Phone: [facility] 11-11-2023 10:37-0500 Body weight 104.33 kg Maryann Rubalcava MD Work Phone: [facility] 11-11-2023 10:37-0500 Diastolic blood pressure 62 mm[Hg] Maryann Rubalcava MD Work Phone: [facility] 11-11-2023 10:37-0500 Heart rate 98 /min Maryann Rubalacva MD Work Phone: [facility] 11-11-2023 10:37-0500 Systolic blood pressure 136 mm[Hg] Maryann Rubalcava MD Work Phone: [facility] 11-03-2023 16:35-0500 Diastolic blood pressure 59 mm[Hg] DO Josh Bunting Work Phone: [facility] 11-03-2023 16:35-0500 Heart rate 91 /min DO Josh Bunting Work Phone: [facility] 11-03-2023 16:35-0500 Respiratory rate 16 /min DO Josh Bunting Work Phone: [facility] 11-03-2023 16:35-0500 SaO2% (BldA) [Mass fraction] 92 % DO Josh Bunting Work Phone: [facility] 11-03-2023 16:35-0500 Systolic blood pressure 117 mm[Hg] DO Josh Bunting Work Phone: [facility] 11-03-2023 15:41-0500 Body temperature 97.4 [degF] DO Josh Bunting Work Phone: [facility] 11-03-2023 15:11-0500 Inhaled oxygen flow rate 3 L/min DO Josh Bunting Work Phone: [facility] 11-03-2023 11:46-0500 Body height 170.18 cm DO Josh Bunting Work Phone: [facility] 11-03-2023 11:46-0500 Body mass index (BMI) [Ratio] 37.6 kg/m2 DO Josh Bunting Work Phone: [facility] 11-03-2023 11:46-0500 Body weight 109 kg DO Josh Bunting Work Phone: [facility] 10-14-2023 09:40-0500 Body height 170.18 cm Karime Nguyen Other [facility] 10-14-2023 09:40-0500 Body mass index (BMI) [Ratio] 37.9 kg/m2 Karime Nguyen Other [facility] Other 10-14-2023 09:40-0500 Body weight 109.77 kg Karime Nguyen Other [facility] Other 10-14-2023 09:40-0500 Body weight 109.76 kg DO Josh Bunting Work Phone: [facility] 10-02-2023 09:10-0500 Body height 170.18 cm DO Josh Bunting Work Phone: [facility] 10-02-2023 09:10-0500 Body mass index (BMI) [Ratio] 37.3 kg/m2 DO Josh Bunting Work Phone: [facility] 10-02-2023 09:10-0500 Body weight 108 kg DO Josh Bunting Work Phone: [facility] 10-02-2023 08:53-0500 Body temperature 98.5 [degF] DO Josh Bunting Work Phone: [facility] 10-02-2023 08:53-0500 Diastolic blood pressure 82 mm[Hg] DO Josh Bunting Work Phone: [facility] 10-02-2023 08:53-0500 Heart rate 92 /min DO Josh Bunting Work Phone: [facility] 10-02-2023 08:53-0500 Respiratory rate 18 /min DO Josh Bunting Work Phone: [facility] 10-02-2023 08:53-0500 SaO2% (BldA) [Mass fraction] 95 % DO Josh Bunting Work Phone: [facility] 10-02-2023 08:53-0500 Systolic blood pressure 169 mm[Hg] DO Josh Bunting Work Phone: [facility] 09-16-2023 09:20-0500 Body height 170.18 cm [employer] Other [place] [employer] Other 09-16-2023 09:20-0500 Body mass index (BMI) [Ratio] 37.59 kg/m2 [employer] Other [facility] Other 09-16-2023 09:20-0500 Body weight 108.86 kg [employer] Other [address] Other 07-29-2023 16:43-0400 Body height 167.64 cm DO Josh Bunting Work Phone: [facility] 07-29-2023 16:43-0400 Body temperature 98 [degF] DO Josh Bunting Work Phone: [facility] 07-29-2023 16:43-0400 Body weight 104.32 kg DO Josh Bunting Work Phone: [facility] 07-29-2023 16:43-0400 Diastolic blood pressure 74 mm[Hg] DO Josh Bunting Work Phone: [facility] 07-29-2023 16:43-0400 Heart rate 99 /min DO Josh Bunting Work Phone: [facility] 07-29-2023 16:43-0400 Respiratory rate 24 /min DO Josh Bunting Work Phone: [facility] 07-29-2023 16:43-0400 SaO2% (BldA) [Mass fraction] 94 % DO Josh Bunting Work Phone: [facility] 07-29-2023 16:43-0400 Systolic blood pressure 141 mm[Hg] DO Josh Melvin Work Phone: [facility] 03-26-2023 11:26-0400 Heart rate 88 /min Donny Peralta HEATING REPAIR TECHNICIAN.[employer] Work Phone: [facility] 03-26-2023 11:26-0400 Respiratory rate 17 /min Donny Peralta HEATING REPAIR TECHNICIAN.PAINTER SPRING Work Phone: [facility] 03-26-2023 11:26-0400 SaO2% (BldA) [Mass fraction] 98 % Donny Peralta HEATING REPAIR TECHNICIAN.PAINTER SPRING Work Phone: [facility] 04-16-2022 09:30-0400 Body height 170.18 cm Mariel Mcgraw Other [address] Other 04-16-2022 09:30-0400 Body temperature 97.6 [degF] Kamal Chaban Other [address] Other 04-16-2022 09:30-0400 Diastolic blood pressure 78 mm[Hg] Kamal Chaban Other [address] Other 04-16-2022 09:30-0400 Respiratory rate 20 /min Kamal Chaban Other [address] Other 04-16-2022 09:30-0400 SaO2% (BldA) [Mass fraction] Kamal Chaban Other [address] Other 04-16-2022 09:30-0400 Systolic blood pressure 154 mm[Hg] Kamal Chaban Other [address] Other 01-08-2022 14:30-0400 Body height 170.18 cm Kamsam Mcgraw Other [address] Other 01-08-2022 14:30-0400 Body mass index (BMI) [Ratio] 37.27 kg/m2 Mariel Chaban Other [address] Other 01-08-2022 14:30-0400 Body temperature 97.4 [degF] Ulyssesal Chaban Other [address] Other 01-08-2022 14:30-0400 Body weight 107.96 kg Ulyssesal Chaban Other [address] Other 01-08-2022 14:30-0400 Diastolic blood pressure 72 mm[Hg] Ulyssesal Chaban Other [address] Other 01-08-2022 14:30-0400 Respiratory rate 20 /min Mariel Chaban Other [address] Other 01-08-2022 14:30-0400 SaO2% (BldA) [Mass fraction] 95 % Ulyssesal Chaban Other [address] Other 01-08-2022 14:30-0400 Systolic blood pressure 130 mm[Hg] Ulyssesal Chaban Other [address] Other 09-06-2021 10:00-0500 Body height 170.18 cm Mariel Chaban Other [address] Other 09-06-2021 10:00-0500 Body mass index (BMI) [Ratio] 37.59 kg/m2 Mariel Chaban Other [address] Other 09-06-2021 10:00-0500 Body temperature 96.8 [degF] Ulyssesal Chaban Other [address] Other 09-06-2021 10:00-0500 Body weight 108.86 kg Mariel Chaban Other [address] Other 09-06-2021 10:00-0500 Diastolic blood pressure 68 mm[Hg] Ulyssesal Chaban Other [address] Other 09-06-2021 10:00-0500 Respiratory rate 20 /min Mariel Chaban Other [address] Other 09-06-2021 10:00-0500 SaO2% (BldA) [Mass fraction] 95 % Mariel Chaban Other [address] Other 09-06-2021 10:00-0500 Systolic blood pressure 136 mm[Hg] Ulyssesal Chaban Other [address] Other 07-23-2021 10:30-0400 Body height 170.18 cm Mariel Mccarthyban Other [address] Other 07-23-2021 10:30-0400 Body mass index (BMI) [Ratio] 38.21 kg/m2 Mariel Chaban Other [address] Other 07-23-2021 10:30-0400 Body temperature 96.1 [degF] Ulyssesal Chaban Other [address] Other 07-23-2021 10:30-0400 Body weight 110.68 kg Mariel Chaban Other [address] Other 07-23-2021 10:30-0400 Diastolic blood pressure 78 mm[Hg] Mariel Mcgraw Other [address] Other 07-23-2021 10:30-0400 Respiratory rate 20 /min Mariel Mcgraw Other [address] Other 07-23-2021 10:30-0400 SaO2% (BldA) [Mass fraction] 95 % Mariel Mcgraw Other [address] Other 07-23-2021 10:30-0400 Systolic blood pressure 150 mm[Hg] Mariel Mcgraw Other [address] Other Encounters Encounter Date Encounter Type Care Provider Facility Start: 02-25-2024 End: 02-25-2024 ambulatory YOGESH BECKER V Not Available Start: 02-16-2024 End: 02-17-2024 ambulatory Savanna Mcclain MD Facility: [facility] Start: 01-26-2024 End: 01-26-2024 ambulatory YOGESH PÉREZS V Not Available Start: 01-19-2024 End: 01-19-2024 ambulatory Josh Bunting Facility:[facility] Start: 01-19-2024 End: 01-19-2024 Admission to same day surgery center DO Josh Bunting Work Phone: [facility] Start: 01-19-2024 End: 01-19-2024 ambulatory DO Josh Bunting Work Phone: [facility] Work Phone: Start: 01-12-2024 End: 01-12-2024 ambulatory Josh Bunting Facility:[facility] Start: 01-12-2024 Encounter for preprocedural laboratory examination Yogesh Becker [facility] Start: 01-12-2024 End: 01-12-2024 ambulatory DO Josh Bunting Work Phone: [facility] Work Phone: Start: 01-12-2024 End: 01-12-2024 Patient encounter procedure DO Josh Bunting Work Phone: [facility] Gvu-Wuw-Juulstrr Testing Work Phone: Start: 01-08-2024 End: 01-08-2024 ambulatory FEROZ PATEL Not Available Start: 01-06-2024 End: 01-06-2024 ambulatory YOGESH BECKER V Not Available Start: 12-16-2023 End: 12-16-2023 ambulatory Josh Bunting Facility:[facility] Start: 12-16-2023 End: 12-16-2023 ambulatory DO Josh Bunting Work Phone: [facility] Work Phone: Start: 12-16-2023 End: 12-16-2023 Patient encounter procedure DO Josh Bunting Work Phone: [facility] [address] Work Phone: Start: 12-08-2023 End: 12-09-2023 ambulatory Savanna Mcclain MD Facility: [facility] Start: 11-25-2023 End: 11-25-2023 ambulatory Oliver [place] Facility:[facility] Start: 11-25-2023 End: 11-25-2023 ambulatory DO Josh Bunting Work Phone: [facility] Work Phone: Start: 11-25-2023 End: 11-25-2023 Patient encounter procedure DO Josh Bunting Work Phone: [facility]-CT Scan [facility] [place] Work Phone: Start: 11-24-2023 End: 11-24-2023 ambulatory Oliver [place] Facility:[facility] Start: 11-24-2023 End: 11-24-2023 ambulatory DO Josh Bunting Work Phone: [facility] Work Phone: Start: 11-24-2023 End: 11-24-2023 Patient encounter procedure DO Josh Bunting Work Phone: [facility] [place] Work Phone: Start: 11-17-2023 End: 11-18-2023 ambulatory Savanna Mcclain MD Facility: [facility] Start: 11-11-2023 End: 11-12-2023 ambulatory [facility] Verónica [facility] Start: 11-11-2023 End: 11-11-2023 Office consultation new/estab patient 80 min Maryann Rubalcava MD Work Phone: [facility] Francine Comment on above: Cervical myelopathy (CMS/HCC) (Primary Dx); Sagittal plane imbalance; 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; Lumbar stenosis with neurogenic claudication Start: 11-10-2023 End: 11-10-2023 ambulatory YOGESH BECKER V Not Available Start: 11-03-2023 End: 11-03-2023 ambulatory Yogesh Becker Facility:[facility] Start: 11-03-2023 End: 11-03-2023 Admission to same day surgery center DO Josh Bunting Work Phone: [facility] [place] Start: 11-03-2023 End: 11-03-2023 ambulatory DO Josh Bunting Work Phone: [facility] Work Phone: Start: 10-23-2023 End: 10-23-2023 ambulatory Yogesh Becker Facility:[facility] Start: 10-23-2023 End: 10-23-2023 ambulatory DO Josh Bunting Work Phone: [facility] Work Phone: Start: 10-23-2023 End: 10-23-2023 Patient encounter procedure DO Josh Bunting Work Phone: [facility] G[facility]Cwy-Gceybldy Testing Work Phone: Start: 10-14-2023 Office outpatient vi sit 40 minutes Karime Nguyen [facility] Neurosurgery Start: 10-14-2023 End: 10-14-2023 ambulatory YOGESH PÉREZS V [facility] [employer] Other Start: 10-14-2023 End: 10-14-2023 Patient encounter procedure DO Josh Bunting Work Phone: [facility] Neurosurgery Work Phone: Start: 10-09-2023 End: 10-09-2023 ambulatory FEROZ PATEL Not Available Start: 10-02-2023 End: 10-02-2023 ambulatory Yogesh Becker Facility:[facility] Start: 10-02-2023 End: 10-02-2023 Admission to same day surgery center DO Josh Bunting Work Phone: [facility] [place] Start: 10-02-2023 End: 10-02-2023 ambulatory DO Josh Bunting Work Phone: [facility] Work Phone: Start: 09-30-2023 End: 09-30-2023 ambulatory Savanna Mcclain MD Facility:[facility] Start: 09-29-2023 End: 09-30-2023 ambulatory Savanna Mcclain MD Facility:[facility] Start: 09-26-2023 End: 09-26-2023 ambulatory IMTIAZ ZAIDI Not Available Start: 09-23-2023 End: 09-23-2023 ambulatory Yogesh Calvogas Facility:[facility] Start: 09-23-2023 End: 09-23-2023 ambulatory DO Josh Bunting Work Phone: [facility] Work Phone: Start: 09-23-2023 End: 09-23-2023 Patient encounter procedure DO Josh Bunting Work Phone: [facility] Pgc-Bxe-Cgzqficl Testing Work Phone: Start: 09-22-2023 End: 09-23-2023 ambulatory Jeromeus Adelso Mcclain MD Facility:[facility] Start: 09-16-2023 End: 09-16-2023 ambulatory Karime Nguyen Other [facility] Other Start: 09-16-2023 Office outpatient ne w 45 minutes Karime Nguyen [facility] Neurosurgery Start: 09-16-2023 End: 09-16-2023 Patient encounter procedure DO Josh Bunting Work Phone: [facility] Work Phone: Start: 08-11-2023 End: 08-12-2023 ambulatory Andrius Giedraitis Facility:[facility] Start: 08-11-2023 End: 08-11-2023 ambulatory DO Josh Bunting Work Phone: [facility] Work Phone: Start: 08-11-2023 End: 08-11-2023 Patient encounter procedure DO Josh Bunting Work Phone: [facility] [place] Work Phone: Start: 08-01-2023 End: 08-01-2023 ambulatory Josh Bunting Facility:[facility] Start: 08-01-2023 End: 08-01-2023 Patient encounter procedure DO Josh Bunting Work Phone: [facility]XRay [facility] [place] Work Phone: Start: 07-29-2023 End: 07-29-2023 Emergency department patient visit Nery Casanova Facility:[facility] Start: 07-29-2023 End: 07-29-2023 Emergency department patient visit DO Josh Bunting Work Phone: [facility]-Emergency Room Work Phone: Start: 06-12-2023 End: 06-12-2023 ambulatory Mariel Mcgraw Other [facility] Other Start: 06-12-2023 Telephone encounter Mariel Mcgarw [facility] Start: 04-21-2023 End: 04-21-2023 ambulatory Josh Bunting Facility:[facility] Start: 04-21-2023 End: 04-21-2023 ambulatory DO Josh Bunting Work Phone: [facility] Work Phone: Start: 04-21-2023 End: 04-21-2023 Patient encounter procedure DO Josh Bunting Work Phone: [facility] [place] Work Phone: Start: 03-26-2023 End: 03-26-2023 ambulatory DONNY PERALTA Facility:[facility] Start: 03-26-2023 End: 03-26-2023 Patient encounter procedure Donny Peralta HEATING REPAIR TECHNICIAN.PAINTER SPRING Work Phone: Otolaryngology Comment on above: Laryngeal candidiasi s (Primary Dx); Glossitis; Oral candidiasis; Hoarseness of voice; History of alcohol abuse Start: 02-10-2023 End: 02-10-2023 ambulatory Josh Bunting Facility:[facility] Start: 02-10-2023 End: 02-10-2023 ambulatory DO Josh Bunting Work Phone: [facility] Work Phone: Start: 02-10-2023 End: 02-10-2023 Patient encounter procedure DO Josh Bunting Work Phone: [facility] [place] Work Phone: Start: 12-31-2022 End: 12-31-2022 ambulatory DO Josh Bunting Work Phone: [facility] Work Phone: Start: 12-31-2022 End: 12-31-2022 Patient encounter procedure DO Josh Bunting Work Phone: [facility]-CT [address] Work Phone: Start: 11-06-2022 End: 11-06-2022 ambulatory DO Josh Bunting Work Phone: [facility] Work Phone: Start: 11-06-2022 End: 11-06-2022 Patient encounter procedure DO Josh Bunting Work Phone: [facility]-XRay [facility] Work Phone: Start: 09-30-2022 End: 09-30-2022 ambulatory DO Josh Bunting Work Phone: [facility] Work Phone: Start: 09-30-2022 End: 09-30-2022 Patient encounter procedure DO Josh Bunting Work Phone: [facility]-Lab [facility] Start: 06-19-2022 End: 06-19-2022 Patient encounter procedure DO Josh Bunting Work Phone: [facility]-XRay [facility] Start: 06-05-2022 End: 06-05-2022 ambulatory Alexis Abdi Other [address] Other Start: 06-05-2022 Telephone encounter Alexis Abdi [facility] Team Physician Start: 04-16-2022 End: 04-16-2022 ambulatory Kamal Chaban Other [address] Other Start: 04-16-2022 Office outpatient vi sit 25 minutes Kamal Chaban [facility] Start: 01-08-2022 End: 01-08-2022 ambulatory Kamal Chaban Other [address] Other Start: 01-08-2022 Office outpatient vi sit 25 minutes Kamal Chaban [facility] Start: 12-07-2021 End: 12-07-2021 ambulatory Kamal Chaban Other [address] Other Start: 12-07-2021 Telephone encounter Mariel Mcgraw [facility] Start: 11-09-2021 ([facility] C Vac) [facility] Co vid Vaccine Courtney Espino [facility] Start: 11-09-2021 End: 11-09-2021 ambulatory Courtney Espino Other [address] Other Start: 09-06-2021 End: 09-06-2021 ambulatory Mariel Mcgraw Other [address] Other Start: 09-06-2021 Office outpatient vi sit 25 minutes Mariel Mcgraw [facility] Start: 07-26-2021 Telephone encounter Mariel Mcgraw [facility] Start: 07-23-2021 Office outpatient ne w 45 minutes Kamal Mariluz [facility] Procedures Date Procedure Procedure Detail Performing Clinician Start: 01-19-2024 Ventral hernioplasty DO Josh Bunting Work Phone: Start: 12-16-2023 MRI of cervical spin e without contrast DO Josh Bunting Work Phone: Start: 11-25-2023 CT of head without contrast DO Josh Bunting Work Phone: Start: 11-11-2023 XR SCOLIOSIS 2 VIEW (NON EOS) [facility] Start: 11-03-2023 Repair of left ingui nal [...] Screening for malign ant neoplasm of colon [facility] Start: 11-11-2029 DTaP/Tdap/Td Vaccine s (2 - Td or Tdap) DTaP/Tdap/Td Vaccines (2 - Td or Tdap) [facility] Start: 01-19-2024 End: 01-19-2024 [facility] Start: 11-24-2023 [facility] Start: 11-11-2023 End: 11-11-2024 MR Cervical spine WO contrast MR cervical spine wo IV contrast Imaging Routine Cervical myelopathy (CMS/HCC) Expected: 11/11/2023, Expires: 11/11/2024 [facility] Work Phone: Comment on above: Expected: 11/11/2023 , Expires: 11/11/2024 Start: 11-11-2023 End: 11-11-2024 X-ray scoliosis 2 View (NON EOS) [facility] Service Area Work Phone: Comment on above: Expected: 11/11/2023 , Expires: 11/11/2024 Start: 11-03-2023 [facility] Start: 11-03-2023 [facility] Start: 10-02-2023 Repair of left ingui nal hernia using surgical mesh OR Inguinal Hernia Repair W/Mesh Graft (Left) [facility] Start: 10-02-2023 End: 10-02-2023 [facility] Start: 06-27-2023 Influenza vaccination [facility] Start: 03-26-2023 End: 05-26-2023 Comprehensive metabolic 2000 panel - Serum or Plasma [facility] Work Phone: Comment on above: Expected: 03/26/2023 , Expires: 05/26/2023 Start: 10-27-2022 DEPRESSION ASSESSMENT DEPRESSION ASS ESSMENT [facility] Start: 01-04-2022 COVID-19 VACCINE (3 - Booster for Dereck series) COVID-19 VACCINE (3 - Booster for Dereck series) [facility] Start: 08-09-2020 Pneumococcal Vaccine : 65+ Years (2 - PCV) Pneumococcal Vaccine: 65+ Years (2 - PCV) [facility] Start: 08-09-2020 Pneumococcal Vaccine : Pediatrics (0 to 5 Years) and At-Risk Patients (6 to 64 Years) (2 - PCV) Pneumococcal Vaccine: Pediatrics (0 to 5 Years) and At-Risk Patients (6 to 64 Years) (2 - PCV) [facility] Start: 2013 PROSTATE CANCER SCREENING DISCUSSION PROSTATE CANCER SCREENING DISCUSSION [facility] Start: 2008 SHINGRIX VACCINE (1 of 2) SHINGRIX VACCINE (1 of 2) [facility] Start: 2008 Zoster Vaccines (1 of 2) Zoste r Vaccines (1 of 2) [facility] Start: 2003 COLOGUARD (FIT-DNA) COLOGUARD (FIT-D NA) [facility] Start: 2003 Colonoscopy COLONOSCOPY [facility] Start: 2003 COLORECTAL CANCER SCREENING COLORECTAL CANCER SCREENING [facility] Start: [address] COLONOGRAPHY [facility] Start: 2003 DIABETES SCREEN DIABETES SCREEN [facility] Start: 2003 FECAL OCCULT BLOOD FECAL OCCULT BLOO D [facility] Start: 2003 [facility] Start: 1993 LIPID SCREEN LIPID SCREEN [facility] Start: 1977 Urine microalbumin profile DTAP,TDAP,TD (1 - Tdap) [facility] Start: 1977 Urine screening for protein Diabetes: Urine Protein Screening [facility] Start: 1976 HEPATITIS C SCREENING HEPATITIS C [facility] Start: 1976 Hepatitis C screening Hepatitis C [facility] Start: 1976 HIV SCREENING HIV SCREENING [facility] Start: 1968 Diabetic foot examination Diabetes: Foot Exam [facility] Start: 1968 Glaucoma screening Diabetes: R etinopathy Screening [facility] Start: 1959 MMR Vaccines (1 of 1 - Standard series) MMR Vaccines (1 of 1 - Standard series) [facility] Start: 1958 Annual wellness visit Medicare Initial Physical (IPPE) [facility] Start: 1958 Hemoglobin A1c measurement Diabetes: Hemoglobin A1C [facility] Start: 1958 HIV screening HIV Screening [facility] Start: 1958 Lipid panel Lipid Panel [facility] Start: 1958 Screening for malign ant neoplasm of colon [facility] Methylmalonate [Moles/volume] in Serum or Plasma [facility] Patient Education [facility] Work Phone: Patient referral [facility] Work Phone: [facility] Immunizations Immunization Date Immunization Notes Care Provider Shannan canales 11-09-2021 COVID-19 (Moderna), Age 12+ DO Josh Melvin Work Phone: [facility] 11-09-2021 COVID-19 Moderna Courtney Espino Other [facility] 10-16-2021 influenza, injectabl e, quadrivalent, contains preservative Maryann Rubalcava MD Work Phone: [facility] Work Phone: 10-16-2021 influenza virus vaccine, unspecified formulation Maryann Rubalcava MD Work Phone: [facility] Work Phone: 01-04-2021 COVID-19 (J&J) DO Josh Melvin Work Phone: [facility] 01-04-2021 COVID-19 Vaccine Dereck - Documentation Purposes Only Mariel Mcgraw Other [facility] 08-18-2020 Seasonal, quadrivalent, recombinant, injectable influenza vaccine, preservative free Maryann Rubalcava MD Work Phone: [facility] 07-27-2020 influenza, seasonal, injectable Maryann Rubalcava MD Work Phone: [facility] 11-11-2019 tetanus toxoid, reduced diphtheria toxoid, and acellular pertussis vaccine, adsorbed Mariel Mcgraw Other [address] Other 08-16-2019 influenza, seasonal, injectable, preservative free Maryann Rubalcava MD Work Phone: [facility] Work Phone: 08-09-2019 influenza, injectabl e, quadrivalent, preservative free Maryann Rubalcava MD Work Phone: [facility] 08-09-2019 pneumococcal polysaccharide vaccine, 23 valcheyanne Rubalcava MD Work Phone: [facility] 08-08-2019 pneumococcal polysaccharide vaccine, 23 valent Maryann Rubalcava MD Work Phone: [facility] Work Phone: 09-08-2018 influenza, injectabl e, quadrivalent, contains preservative Maryann Rubalcava MD Work Phone: [facility] 07-29-2017 influenza, injectable,quadrivalen t, preservative free, pediatric Mariel Mcgraw Other [address] Other 10-14-2009 pneumococcal polysaccharide vaccine, 23 valent Maryann Rubalcava MD Work Phone: [facility] Work Phone: NEGATED: Highlighted row has not occurred!07-29-2017 influenza, injectable,quadrivalen t, preservative free, pediatric Mariel Mcgraw Other [address] Other Payers Date Payer Category Payer Self-pay [id number] 2022 Private Health Insurance 2021 Medicare [id number] 2021 Medicare [id number] 2.16.840.1.375704.19 2021 Medicare [id number] .[id number] 2021 Medicare [id number] 2.16.840.1.313222.19 1958 Unknown [id number] 2.16.840.1.040259.3.579.2.124 2 1958 Unknown [id number] 2.16.840.1.540826.3.579.2.124 2 1958 Unknown [id number] 2.16.840.1.319612.3.579.2.196 1958 Unknown [id number] 2.16.840.1.257517.3.579.2.196 1958 Unknown [id number] 2.16.840.1.650092.3.579.2.196 1958 Unknown [id number] 2.16.840.1.843552.3.579.2.196 1958 Unknown [id number] 2.16.840.1.153484.3.579.2.196 1958 Unknown [id number] 2.16.840.1.173861.3.579.2.196 1958 Unknown [id number] 2.16.840.1.778923.3.579.2.196 1958 Unknown [id number] 2.16.840.1.394332.3.579.2.125 9 1958 Unknown [id number] 2.16.840.1.338485.3.579.2.125 9 1958 Unknown [id number] 2.16.840.1.494365.3.579.2.125 9 1958 Unknown [id number] 2.16.840.1.489554.3.579.2.125 9 1958 Unknown [id number] 2.16.840.1.200313.3.579.2.125 9 1958 Unknown [id number] 2.16.840.1.581477.3.579.2.125 9 1958 Unknown [id number] 2.16.840.1.152564.3.579.2.125 9 1958 Unknown [id number] 2.16.840.1.617472.3.579.2.125 9 Medicare Medicare [id number] Medicare MMO MCR Adv PFFS [id number] Medicare [employer] MCR [id number] Unknown [id number] 2.16.840.1.370360.3.579.2.531 Unknown [id number] 2.16.840.1.324711.3.579.2.531 Unknown [id number] 2.16.840.1.889850.3.579.2.531 Unknown [id number] 2.16.840.1.230314.3.579.2.531 Unknown [id number] 2.16.840.1.941848.3.579.2.531 Unknown [id number] 2.16.840.1.550778.3.579.2.531 Unknown [id number] 2.16.840.1.473852.3.579.2.531 Unknown [id number] 2.16.840.1.929943.3.579.2.531 Unknown [id number] 2.16.840.1.764814.3.579.2.531 Unknown [id number] 2.16.840.1.884656.3.579.2.531 Unknown [id number] 2.16.840.1.175880.3.579.2.531 Unknown [id number] 2.16.840.1.745467.3.579.2.531 Unknown [id number] 2.16.840.1.167028.3.579.2.531 Unknown [id number] 2.16.840.1.205755.3.579.2.531 Worker's Compensation [employer] [facility] [id number] Social History Date Type Detail Facility Sex Assigned At [facility] Other Start: 05-22-2021 End: 05-22-2021 Tobacco smoking status WIIS Smoker (finding) [facility] Start: 1960 Sex Assigned At Male F [facility] Start: 03-26-2023 End: 01-19-2024 Tobacco smoking status WIIS Ex-smoker [facility] History of tobacco use Cigarette Smoker [facility] Start: 03-26-2023 End: 11-11-2023 Tobacco use and exposure Smokeless tobacco non-user [facility] Start: 03-26-2023 Alcohol intake Current drinke r of alcohol (finding) [facility] Start: 03-26-2023 Alcohol Comment social [facility] Start: 1960 Sex Assigned At Not on file C [facility] Start: 11-11-2023 Tobacco smoking status WIIS Never smoked tobacco [facility] Work Phone: Start: 11-01-2023 End: 11-11-2023 Exposure to SARS-CoV-2 (event) Not sure [facility] Medical Equipment Procedure Code Equipment Code Equipment Origin al Text Equipment Identifier Dates Repair, hernia, inguinal, with mesh Abdominal hernia surgical mesh, synthetic polymer, non-bioabsorbable [id number] [facility] Start: 11-03-2023 [id number] Start: 08-14-2023 Goals Date Patient Goal Desired Activity /State Clinical Notes 04-17-2021 to 11-11-2023 Maryann Rubalcava MD - 11/11/2023 10:00 AM EST Note Date & Type Note Facility 11-11-2023 History of Present illness Narrative It was a pleasure to see Mr. Meier at the Neurosurgery Sp[facility] at [facility]. Patient is a 62-year-old male with [...] L2-L3 and L1-L2. Even in the supine import export agent CT for patient has a flatback deformity. [...] All questions were answered. Maryann Rubalcava MD, [facility] Outside Residential Sales Professional of Neurological Surgery [employer] [facility] [employer] Attending Surgeon Director - Minimally Invasive Spine Surgery [place], [place] Some of this note was completed using Mir[employer] voice recognition technology and sometimes the software misinterprets words. This may include unintended errors with respect to translation of words, typographical errors or grammar errors which may not have been identified prior to finalization of the chart note. Please take this into account when reading this note documented in this encounter [facility] Work Phone: 10-14-2023 Evaluation note Encounter [...] region with neurogenic claudication (ICD-10 - M48.062) [address] Other 12-05-2023 NoteProcedure Performed by: Savanna Mcclain M.D. Procedure: Placement of G.I. Java Impulse Generator Battery under fluoroscopic guidance *Battery [...] condition. Electronically signed by Johny MATUTE, Savanna Adelso 09/30/23 13:12 [facility] 09-30-2023 NoteHistory of Present Illness The patient [...] signed by Savanna Mcclain MD 09/30/23 13:10 [facility] 09-16-2023 Evaluation note* Encounter Date Diagnosis Assessment [...] weeks. Aug, Lumbar radiculopathy (ICD-10 - M54.16) [address] Other 08-17-2023 Evaluation note* Encounter Date Diagnosis Assessment Notes Treatment Notes Treatment Clinical Notes May, Gastroesophageal ref lux disease, unspecified whether esophagitis present (ICD-10 - K21.9) [address] Other 05-31-2023 NoteHNO ID: [id number] Author: Donny Peralta APRN.[facility] Service: ? Author Type: Nurse Practitioner Type: [...] 2 to 3 weeks time. Donny Peralta APRN.[employer] CC: Josh Melvin [facility]05-31-2023 History of Present illness Narrative* Donny Peralta [...] 2 to 3 weeks time. Donny Peralta APRN.[employer] CC: [facility] Melvin [facility]* Encounter Date Diagnosis Assessment Notes Treatment Notes Treatment Clinical Notes Mar, Obstructive sleep ap dee (ICD-10 - G47.33) Please get a compliance report now and before next visit Mar, Gastroesophageal ref lux disease, unspecified whether esophagitis present (ICD-10 - K21.9) Mar, Lung nodule (ICD-10 - R91.1) [address] Other 03-15-2022 Evaluation note* Encounter Date Diagnosis [...] be after his CT in [address] Other 01-14-2022 Evaluation note* Encounter Date Diagnosis Assessment Notes Treatment Notes Treatment Clinical Notes Oct, Encounter for immunization (ICD-10 - Z23) Patient presents for COVID-19 vaccination BOOSTER. Pre-screening form answers evaluated with patient. Patient denies current illness or allergic reaction to component of COVID-19 vaccine. Patient provided with current copy of EUA. [address] Other 09-27-2021 Evaluation note* Encounter Date Diagnosis Assessment Notes Treatment Notes Treatment Clinical Notes Jun, Lung nodule (ICD-10 - R91.1) Jun, Chronic cough (ICD-1 0 - R05) Jun, Obstructive sleep ap dee (ICD-10 - G47.33) Jun, Gastroesophageal ref lux disease, unspecified whether esophagitis present (ICD-10 - K21.9) [address] Other 06-24-2021 NotePatient: KOKO MEIER Age: 60 [...] mg, 1 tab(s), Oral, BID, 0 Refill(s) [facility]Result Comment: Electronically Signed By: Kwame Yang DO\.br\Date and Time Signed: 04/19/21 12:56 EDT 04-17-2021 [id number]:127[facility] CenterEvaluation noteNo InformationNort [employer] Other Evaluation noteNort [employer] Other Evaluation noteNo assessment information available [facility] Work Phone: Evaluation note* Diagnosis Laryngeal candidiasis- Primary Other candidiasis of other specified sites Glossitis Oral candidiasis Candidiasis of mouth Hoarseness of voice Dysphonia History of alcohol abuse Nondependent alcohol abuse, in remission [facility] Diagnosis Cervical myelopathy (CMS/HCC)- Primary Cervical spondylosis with myelopathy Sagittal plane imbalance Other curvatures of spine associated with other conditions 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 Lumbar stenosis with neurogenic claudication documented in this encounter [facility] Work Phone: Hisrrcz general Narrative - Reported* Type Description Date [...] finger 10/2019 Hospitalization History see sx history [address] Other Hisexmj general Narrative - ReportedNortDoyle's [employer]ric[employer] Other Hisjjga general Narrative - Reported* Type Description Date [...] finger 10/2019 Hospitalization History see sx history [address] Other Hospital Discharge instructions Additional Instructions Please call Dr. Becker' office to reschedule your surgery.[facility] Work Phone: Hospital Discharge instructions Additional Instructions 1. No driving if taking narcotic pain medication. 2. No lifting more than 20 pounds for 3 weeks. 3. May shower.[facility] Work Phone: Hospital Discharge instructions Additional Instructions 1. No driving if taking narcotic pain medication. 2. No lifting more than 20 pounds for 4 weeks. 3. May shower. 4. Can use abdominal binder as needed for comfort.[facility] Work Phone: Progress note Author Yogesh Becker [facility] October 02, 2023 9:46am Note Date/Time October 02, 2023 9 :46am [facility] ENTER [address] [place], [place] [id number] Progress Note Signed Patient: Koko Meier MR#: [id number] : 1960 Acct:[id number] Age/Sex: 62 / M Adm Date: 3 Loc: [place] Room: Type: [facility] Attending Dr: Yogesh Becker MD Copies to: ~ Date of Service: 10/02/2023 Progress Narrative Note PROGRESS NOTE Progress Note: Patient's tox screen today is positive for cocaine. Surgery will be canceled. Patient is told to call the office this afternoon to reschedule the surgery. Documented By: Yogesh Becker MD 10/02/2345 Signed By: <Electronically signed by MD Yogesh Becker> 10/02/23945 [facility] Work Phone: Summary Purpose Family History [...] Specialty Diagnoses / Procedures Referred By Bala t Referred To Contact Radiology Diagnoses Cervical myelopathy ([facility]) Procedures MR cervical spine [place] [address] [address] Department [place] [address] Referral ID Status Reason Start Date Expiration Date Visits Requested Visits Authorized Pending Review Perform Procedure 11/11/2023 11/10/2024 1 1 Specialty Diagnoses / Procedures Referred By Contac t Referred To Contact Radiology Diagnoses Sagittal plane imbalance Procedures X-ray scoliosis 2 View (NON EOS) [place] [address] [address] Department of Neurological Surgery [place] [id number] Referral ID Status Reason Start Date Expiration Date Visits Requested Visits Authorized Authorized Perform Procedure 11/11/2023 11/10/2024 1 1 Reason surgical consult Diagnosis 1 Lumbar myelopathy (G 95.9) Referral Organization [facility] u[facility]gery Referring Provider First Name Karime Referring Provider Last Name Marleni Referring Provider Specialty Nurse Pract itioner Referred Organization [facility] Referred Provider KHADAR MARYANN [place] Address [address] [address] [place] Referred Provider Specialty Neurosurgery Referral Priority Routine General Notes Juana Scanlon 03:14:14 PM >received today, holding referral until office note is locked Juana Scanlon 10/16/2023 08:38:30 AM >note not locked yet Reason evaluate and treat Diagnosis 1 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) Referral Organization [facility]urgery Referring Provider First Name Karime Referring Provider Last Name Marleni Referring Provider Specialty Nurse Pract itioner Referred Organization [facility] Referred Address [address],[place], [place],[address] Referred Provider Specialty Physical The rapist Referral Priority Routine Additional Source Comments (unrecognized sect ion and content) No Status Records FoundNo Status Records FoundNo Status Records FoundNo Status Records FoundNo Status Records FoundNo Status Records Found INFORMATION SOURCE (unrecogn ized section and content) DATE CREATED AUTHOR 04/27/2021 [facility] DATE CREATED AUTHOR AUTHOR'S ORGANIZ ATION 04/15/2023 [facility] DATE CREATED AUTHOR AUTHOR'S ORGANIZ ATION 11/16/2023 [facility] DATE CREATED AUTHOR AUTHOR'S ORGANIZ ATION 01/30/2024 [facility] DATE CREATED AUTHOR AUTHOR'S ORGANIZ ATION 02/19/2024 [facility] DATE CREATED AUTHOR AUTHOR'S ORGANIZ ATION 02/26/2024 [facility] EPIC REASON FOR VISIT (unrecogniz ed section and content) Reason Comments Mouth lesion on left side Specialty Diagnoses / Procedures Referred By Contact Referred To Contact Ent - Otolaryngology / ENT-OTOLARYNGOLOGY Diagnoses Mouth Lesion on Left side of jaw Procedures NEW [facility] PATIENT Josh Melvin, DO [address] [place] [address] Donny Peralta, HEATING REPAIR TECHNICIAN.[employer] [address] [place] [address] Referral ID Status Reason Start Date Expiration Date V isits Requested Visits Authorized [id number] Authorized 03/25/2023 10/26/2023 99 99 Reason Comments Neck Pain Back Pain Care Teams (unrecognized sec tion and content) Team Status: Inactive Member Role Status Dates Joshana Melvin , DO Primary Care Provider, Attending Dante peter Active Team Status: Active Member Role Status Dates Joshana Melvin , DO Primary Care Provider Active Team Status: Inactive Member Role Status Dates Josh Melvin , DO Primary Care Provider Active Flip Diamond Attending Provider Active Team Status: Inactive Member Role Status Dates Joshana Velascoting , DO Primary Care Provider Active Yunier Ariza MD Attending Provider Active Team Status: Inactive Member Role Status Dates Josh Melvin , DO Primary Care Provider Active Mariel Mcgraw MD Attending Provider Active Team Status: Inactive Member Role Status Dates Joshana Melvin , DO Primary Care Provider Active Errol Humphrey MD Attending Provider Active Team Status: Inactive Member Role Status Dates Joshana Velascoting , DO Primary Care Provider Active Nery Casanova STAFF PHYSICIAN- Emergency Provider Active Team Status: Inactive Member Role Status Dates Josh Melvin , DO Primary Care Provider Active Savanna Mcclain MD Attending Provider Active Team Status: Inactive Member Role Status Dates Josh Melvin , DO Primary Care Provider Active Yogesh Becker MD Attending Provider Active Team Status: Inactive Member Role Status Dates CHRIS ColindresC Attending Provider Active Start: September 16, 2023 End: September 16, 2023 Team Status: Inactive Member Role Status Dates Josh Melvin , DO Primary Care Provider Active Start: September 23, 2023 End: September 23, 2023 Yogesh eBcker MD Attending Provider Active Sta rt: September [...] Status Dates Josh Melvin DO Primary Care Provider Active Start: October 23, 2023 End: October 23, 2023 Yogesh Becker MD Attending Provider Active Sta rt: October 23, 2023 End: October 23, 2023 Team Status: Inactive Member Role Status Dates Josh Melvin DO Primary Care Provider Active Start: November 03, 2023 End: November 03, 2023 Yogesh Becker MD Attending Provider Active Sta rt: November 03, 2023 End: November 03, 2023 Team Status: Inactive Member Role Status Dates Josh Melvin DO Primary Care Provide r, Attending Provider Active Start: November 24, 2023 End: November 24, 2023 Oliver Kerr MD Referring Provider Active S tart: November 24, 2023 End: November 24, 2023 Team Status: Inactive Member Role Status Dates Josh Melvin DO Primary Care Provider Active Start: November 25, 2023 End: November 25, 2023 Oliver Kerr MD Attending Provider Active S tart: November 25, 2023 End: November 25, 2023 Team Status: Inactive Member Role Status Dates Josh Melvin DO Primary Care Provider Active Start: December 16, 2023 End: December 16, 2023 Maryann Rubalcava MD Attending Provider Active Start: December 16, 2023 End: December 16, 2023 Team Status: Inactive Member Role Status Dates Josh Melvin DO Primary Care Provider Active Start: January 12, 2024 End: January 12, 2024 Yogesh Becker MD Attending Provider Active Sta rt: January 12, 2024 End: January 12, 2024 Team Status: Inactive Member Role Status Dates Josh Melvin DO Primary Care Provider Active Start: January 19, 2024 End: January 19, 2024 Yogesh Becker MD Attending Provider Active Sta rt: January 19, 2024 End: January 19, 2024 Goals (unrecognized section and content) Goals may be documented in a n alternate section Source Comments (unrecognize d section and content) In the event this informatio n is protected by the [facility] Confidentiality of Alcohol and Drug Abuse Patient Records regulations: The Federal rules restrict any use of the information to criminally investigate or prosecute any alcohol or drug abuse patient.[facility] FOR RECORDS PERTAINING TO PATIENTS WHO [...] BE BASED ON THE PRIMARY CLINICAL RECORDS. [facility] [employer] [facility]. provides no warranty or guarantee of the accuracy or completeness of information in this document.
[2024-03-15 09:58] LABS: Glucometer 242 mg/dL (74-106)
[2024-03-15 10:09] VITALS: BP 124/70; PULSE 85; TEMP 36.1; O2SAT 97
[2024-03-15] MEDS: LIDOCAINE HCL 2% 400 MG/20 ML MDV 15 ML INJ (10:29)
[2024-03-15] MEDS: BUPIVACAINE HCL 0.25% PF 25 MG/10 ML VIAL INJ (10:29)
[2024-03-15 10:31] VITALS: BP 169/79; BP 178/84; PULSE 81; PULSE 82; O2SAT 92
--- NOTE | 2024-03-15 10:39 | W.PM.PROCNOT ---
Date of procedure: 03/15/24 Pre-op diagnosis: Cervical spondylosis Post-op diagnosis: same as pre-op Procedure: Procedure: Bilateral C3-4, C4-5 medial branch block Medications: Bupivacaine 0.25% 6cc The patient was seen and examined in the preoperative holding area.? The informed consent was obtained and placed on the chart.? The patient was brought to the medical procedure unit and placed in the prone position.? A timeout was completed verifying correct patient, procedure site, positioning, plan, and special equipment.? Using aseptic technique, the needle was placed at left C3.? Under direct fluoroscopic visualization, a Quincke tip needle was advanced to the midpoint of the waist of the articular pillar at the respective medial branch segment. The above-mentioned injectate was placed in a 1 mL aliquot proceeded by negative aspiration.? The needle was removed.? The procedure was completed at all left C4, 5. The same procedure, at the same levels, was then completed on the right side. Insertion site was covered.? Patient was taken to the postprocedural recovery area and monitored for an appropriate length of time before found suitable for discharge in the accompaniment of a responsible adult. Anesthesia: Local Surgeon: Savanna Mcclain Pathology: none sent Condition: stable Disposition: no change
== END 2024-03-15 10:35 | disposition home or self-care (01) ==
PROVIDERS: PCP Family Medicine; Visit Provider Anesthesiology
DX: M47.812 Spondylosis without myelopathy or radiculopathy, cervical region (principal); Z79.4 Long term (current) use of insulin; Z79.84 Long term (current) use of oral hypoglycemic drugs
CPT/HCPCS: 36415; 64490; 64491; 82948

== ENCOUNTER 2024-03-25 08:06 | Outpatient (OUT) | payer MEDICARE, SELFPAY ==
--- NOTE | 2024-03-25 08:09 | P.CN_ITS ---
Consult Note: HPI Data of Consult Patient: known to practice within the last 3 years Requesting Physician: Rosemary Kwon NP Primary Care Provider: JOSH MELVIN Consult Narrative Reason for consult: f/u Narrative: Koko Hernandez a pleasant 63 year old male presents for evaluation of chronic pain. Today pain in neck 5/10 and low back, increasing to 8/10 with standing twisting bending lifting activity, improved with medications, sitting, heat.Recent bilateral L1-2 TFESI providing >50% improvement ongoing. Patient continues to find benefit from SCS. Patient denies loss of bowel/bladder. Patient finds mild benefit from cymbalta 60mg daily, gabapentin 600mg 1.5 pills TID, flexeril 10mg TID PRN. Recently underwent bilateral C3-4 C4-5 MBB #2 with greater than 80% improvement in pain and functional ability hours following. cc:: CC: Rosemary Kwon NP Review of Systems ROS Status of ROS 10 or more systems reviewed and unremark able except as noted in history and below Musculoskeletal Reports: back pain, neck pain and joint pain PFSH PFSH Medical History Fusion of spine, cervical region ?M43.22 - Fusion of spine, cervical region (ICD-10) Lumbar post-laminectomy syndrome ?M96.1 - Postlaminectomy syndrome, not elsewhere classified (ICD-10) Anxiety ?F41.9 - Anxiety disorder, unspecified (ICD-10) HTN (hypertension) ?I10 - Essential (primary) hypertension (ICD-10) High cholesterol ?E78.00 - Pure hypercholesterolemia, unspecified (ICD-10) Diabetes ?E11.9 - Type 2 diabetes mellitus without complications (ICD-10) Diverticulosis ?K57.90 - Diverticulosis of intestine, part unspecified, without perforation or abscess without bleeding (ICD-10) Surgical History History of shoulder surgery ?Z98.890 - Other specified postprocedural states (ICD-10) History of colon resection ?Z90.49 - Acquired absence of other specified parts of digestive tract (ICD- 10) History of lumbar surgery ?Z98.890 - Other specified postprocedural states (ICD-10) Social History Gender Identity: male Meds Home Medications and Allergies Home Medications ?Medication ?Instructions ?Recorded ?Confirmed ?Type atorvastatin 40 mg tablet 40 mg PO DAILY 08/14/23 03/15/24 History buspirone 30 mg tablet 30 mg PO TID 08/14/23 03/15/24 History celecoxib 200 mg capsule 200 mg PO DAILY 08/14/23 03/15/24 History cyclobenzaprine 10 mg tablet 10 mg PO TID 08/14/23 03/15/24 History duloxetine 60 mg capsule,delayed 60 mg PO BID 08/14/23 03/15/24 History release empagliflozin 10 mg tablet 10 mg PO DAILY 08/14/23 03/15/24 History (Jardiance) insulin aspart U-100 100 unit/mL 1 sliding scale dose subcut 08/14/23 03/15/24 History (3 mL) subcutaneous pen (Novolog USEASDIRECTD FlexPen U-100 Insulin aspart) insulin degludec 200 unit/mL (3 20 unit subcut DAILY 08/14/23 03/15/24 History mL) subcutaneous pen (Tresiba FlexTouch U-200 insulin) lisinopril 20 1 tab PO DAILY 08/14/23 03/15/24 History mg-hydrochlorothiazide 12.5 mg tablet metformin 1,000 mg tablet 1,000 mg PO DAILY 08/14/23 03/15/24 History omeprazole 40 mg capsule,delayed 40 mg PO DAILY 08/14/23 03/15/24 History release gabapentin 600 mg tablet 900 mg PO TID 02/06/24 03/15/24 History Allergies Allergy/AdvReac Type Severity Reaction Status Date / Time No Known Drug Allergies Allergy Verified 03/15/24 10:07 Exam Constitutional Documenting provider has reviewed patient's vital signs: yes Common normals: no apparent distress, oriented x3, healthy appearing, alert and well nourished General appearance: cooperative HENMT Common normals: normocephalic, hearing grossly normal bilaterally and moist oral mucous membranes Head and scalp: normocephalic Eye Common normals: PERRL Pupil: PERRL Neck & C-Spine Common normals: full ROM General: normal visual inspection Cervical spine: cervical ROM abnormal, pain with cervical ROM, cervical spine tenderness and paracervical muscle tenderness Other: positive facet loading bilaterally sensation intact in BUE, strength 5/5 negative hoffmans negative spurlings. no radiculopathy Chest Common normals: inspection of chest normal Respiratory Common normals: normal respiratory effort, no retractions and no use of acc essory muscles Back & Pelvis Lumbar spine/lower back: ROM limited, pain with ROM and straight leg raise negative bilaterally Sacroiliac joints: SI joint(s) abnormal Other: left positive nessa(patricks), gaenslens, thigh thrust, compression test Extremity Common normals: normal to inspection and full ROM Neuro Common normals: oriented x3, CN's II-XII intact bilaterally, moves all extremities, no focal motor deficits, no sensory deficits noted and deep tendon reflexes 2+ bilaterally Sensorium/orientation: alert Gait (neuro): antalgic Motor exam: strength 5/5 throughout and no movement abnormalities noted Psych Common normals: mental status grossly normal, thought process normal, cooperative, affect normal, speech normal and activity/motor behavior normal Speech: normal speech Thought process: normal thought process Results Additional Findings Additional findings: If on a controlled substance or opioids, I have checked an [place] report on this patient and there are no aberrancies noted in the prescribing history.??If on a controlled substance or opioid a drug screen was completed and reviewed within the last year, and if there has not been a drug screen completed we ordered one today to monitor higher risk, state monitored pain medication use. As part of providing excellent, safe, comprehensive care, the following was completed at our patient's visit: 1. A medication reconciliation and review to ensure accurate knowledge of current/active medications, including asking our patients to inform us about any laip-jes-tklunyc medications or herbal remedies/nutritional supplements/alternative remedies. 2. A review to specifically ensure our patients have had annual screening for screening for depression, screening for tobacco use, and screening for unhealthy alcohol use. For concerning screenings had a discussion with the patient, provided patient education, and recommended follow-up with primary care provider when appropriate. If patient noted with a risk of falling, they received education on strength, gait, and balance training to prevent future risk of falling. Assessment and Plan Assessment and Plan (1) Cervical spondylosis: Assessment and Plan: The patient has had over 3 months of moderate to severe neck pain with functional impairment and inadequate response to conservative care including NSAIDS (unless there are contraindication such as concurrent blood thinners), multiple oral or topical pain medications, and home exercise program/physical therapy.? Patient has completed >6 weeks of guided home exercise program and/or formal physical therapy program without relief of their symptoms.? I have reviewed the imaging of the cervical spine and no red flags were identified (2) Cervical post-laminectomy syndrome: (3) Cervical stenosis of spinal canal: (4) Cervicalgia: (5) Lumbar postlaminectomy syndrome: (6) Lumbar stenosis with neurogenic claudication: (7) Status post insertion of spinal cord stimulator: (8) Sacroiliitis: Plan rght then left C3-4 C4-5 medial branch thermal RFA, risks vs benefits discussed, procedure to be completed under fluoroscopy guidance finding mild relief from SCS discussed left SIJ injection if pain persists f/u 1 month after completion of RFA
== END 2024-03-25 08:07 | disposition home or self-care (01) ==
LOC: PM 08:07
PROVIDERS: PCP Family Medicine; Visit Provider Nurse Practitioner
DX: M47.812 Spondylosis without myelopathy or radiculopathy, cervical region (principal); M96.1 Postlaminectomy syndrome, not elsewhere classified; M48.02 Spinal stenosis, cervical region; M48.062 Spinal stenosis, lumbar region with neurogenic claudication; Z98.890 Other specified postprocedural states; Z96.82 Presence of neurostimulator; M46.1 Sacroiliitis, not elsewhere classified
CPT/HCPCS: G0463

== ENCOUNTER 2024-04-12 06:43 | Day surgery (SDC) | payer MEDICARE, SELFPAY ==
--- OUTSIDE RECORDS SUMMARY | 2024-04-12 06:46 | XMS_ITS ---
Patient Summarization (C-CDA 2.1 CCD) Created on: April 12, 2024 KOKO MEIER : 1960 Sex: Male Author Organization Sample organization Care Team Providers Care Alemite Operator Name Role Phone Mariel Mcgraw Unavailable Courtney Espino Unavailable Bunting, DO Josh Primary Care Provider [phone] Flip Diamond Attending Provider Alexis Abdi Unavailable [...] Bunting, DO Josh Primary Care Provider [phone] Bunting, DO Josh Attending Provider Bunting, DO Josh Primary Care Provider Edilberto REFRACTORY REPAIRER- Nery Hankins Emergency Provider [phone] Bunting, DO Josh Attending Provider [phone] MD Johny [facility] Attending Provider Bunting, DO Josh Primary Care Provider Bullimore, REFRACTORY REPAIRER- Nery E Emergency Provider Bunting, DO Josh Attending Provider MD Savanna Mcclain Attending Provider MD Yogesh Becker Attending Provider Karime Nguyen Unavailable Bunting, DO Josh Primary Care Provider Unavailable Primary Care Provider Unavailabl e Bunting, DO Josh Primary Care Provider Bunting, DO Josh Attending Provider MD Oliver Kerr Referring Provider MD Oliver Kerr Attending Provider MD Maryann Rubalcava Attending Provider Bunting, DO Josh Primary Care Provider [phone] MD Yogesh Becker Attending Provider Bunting, DO Josh Attending Provider [phone] MD Oliver Kerr Referring Provider [phone] MD Oliver Kerr Attending Provider MD Maryann Rubalcava Attending Provider Gipeewee MATUTE, Andrius Vytautas Attending Unavailable Giedraitis , Andrius Vytautas Attending Unavailable Giedraitis , Andrius Vytautas Attending Unavailable Giedraitis , Andrius Vytautas Attending Unavailable Giedraitis , Andrius Vytautas Attending Unavailable Giedraitis , Andrius Vytautas Attending Unavailable Giedraitis , Andrius Vytautas Attending Unavailable Giedraitis , Andrius Vytautas Attending Unavailable Bunting, DO Josh Primary Care Provider MD Yogesh Becker Attending Provider [phone] MD Maryann Rubalcava Attending Provider Bunting DO, Josh Ray Primary Care Provider Kasliwal, Maryann K Attending Unavailable Kasliwal, Maryann K Admitting Unavailable Bunting, Josh Primary Care [...] Yogesh Attending Unavailable Becker, Yogesh Admitting Unavailable Bunting, Josh Primary Care Unavailable Bullimore, Nery E Attending Unavailable Bunting, Josh Primary Care Unavailable Bullimore, Nery E Admitting Unavailable Bunting, Josh Primary Care Unavailable Bunting, Josh Attending Unavailable Bunting, Josh Admitting Unavailable [place], Oliver Referring Unavailable Bunting, Josh Attending Unavailable Bunting, Josh Admitting Unavailable Bunting, Josh Primary Care Unavailable Bunting, Josh Primary Care Unavailable [place], Oliver Attending Unavailable [place], Oliver Admitting Unavailable Bunting, Josh Primary Care Unavailable Kasliwal, Maryann K Admitting Unavailable Kasliwal, Maryann K Attending Unavailable KASLIWAL, MARYANN K Attending Unavailable KASLIWAL, MARYANN K Referring Unavailable KASLIWAL, MARYANN K Admitting Unavailable KASLIWAL, MARYANN K Attending Unavailable BUNTING, JOSH RAY Primary Care Unavailable KASLIWAL, MARYANN K Attending Unavailable BUNTING, JOSH RAY Primary Care Unavailable KASLIWAL, MARYANN K Referring Unavailable BUNTING, JOSH RAY Primary Care Unavailable BECKER V YOGESH Attending Unavailable BUNTING, JOSH R Referring Unavailable BECKER V, YOGESH Attending Unavailable IMTIAZ ZAIDI Attending Unavailable KARIME NGUYEN Referring Unavailable FEROZ PATEL Attending Unavailable JOSH MELVIN R Referring Unavailable YOGESH MORRIS Attending Unavailable YOGESH MORRIS Attending Unavailable FEROZ PATEL Attending Unavailable YOGESH MORRIS Attending Unavailable FEROZ PATEL Attending Unavailable Encounters Encounter Date Encounter Type Care Provider Facility Start: 04-09-2024 End: 04-09-2024 ambulatory FEROZ PATEL Not Available Start: 04-02-2024 Evaluation and management of inpatient [facility] Start: 04-01-2024 End: 04-01-2024 Subsequent hospital visit by physician Par X-Ray Ed [facility] Comment on above: Cervical myelopathy (Multi) Start: 04-01-2024 End: 04-01-2024 ambulatory [facility] Start: 04-01-2024 End: 04-01-2024 Office outpatient visit 40 minutes Maryann Rubalcava MD Work Phone: [facility] Comment on above: 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 (Primary Dx); Cervical myelopathy (Multi) Start: 04-01-2024 End: 04-01-2024 ambulatory [facility] Start: 03-31-2024 End: 03-31-2024 Patient encounter procedure DO Josh Bunting Work Phone: [facility] Work Phone: Start: 03-31-2024 End: 03-31-2024 ambulatory DO Josh Bunting Work Phone: [facility] Work Phone: Start: 03-15-2024 End: 03-16-2024 ambulatory Savanna Mcclain MD Facility:[facility] Start: 03-11-2024 End: 03-11-2024 Patient encounter procedure DO Josh Bunting Work Phone: [facility] Neurosurgery Work Phone: Start: 02-25-2024 End: 02-25-2024 ambulatory YOGESH BECKER V Not Available Start: 02-16-2024 End: 02-17-2024 ambulatory Savanna Mcclain MD Facility: [facility] Start: 01-26-2024 End: 01-26-2024 ambulatory YOGESH BECKER V Not Available Start: 01-19-2024 End: 01-19-2024 Admission to same day surgery center DO Josh Bunting Work Phone: [facility] [address] [place] Start: 01-19-2024 End: 01-19-2024 ambulatory DO Josh Bunting Work Phone: [facility] Work Phone: Start: 01-12-2024 End: 01-12-2024 Patient encounter procedure DO Josh Bunting Work Phone: [facility]-Pre-Surgical Testing Work Phone: Start: 01-12-2024 End: 01-12-2024 ambulatory DO Josh Bunting Work Phone: [facility] Work Phone: Start: 01-12-2024 Encounter for preprocedural laboratory examination Yogesh Becker [facility] Start: 01-08-2024 End: 01-08-2024 ambulatory FEROZ PATEL Not Available Start: 01-06-2024 End: 01-06-2024 ambulatory OYGESH BECKER V Not Available Start: 12-16-2023 End: 12-16-2023 Patient encounter procedure DO Josh Bunting Work Phone: [facility] [address] Work Phone: Start: 12-16-2023 End: 12-16-2023 ambulatory DO Josh Bunting Work Phone: [facility] Work Phone: Start: 12-08-2023 End: 12-09-2023 ambulatory Savanna Mcclain MD Facility: [facility] Start: 11-25-2023 End: 11-25-2023 Patient encounter procedure DO Josh Bunting Work Phone: [facility]CT Scan [address] [place] Work Phone: Start: 11-25-2023 End: 11-25-2023 ambulatory DO Josh Bunting Work Phone: [facility] Work Phone: Start: 11-24-2023 End: 11-24-2023 Patient encounter procedure DO Josh Bunting Work Phone: [facility] [place] Work Phone: Start: 11-24-2023 End: 11-24-2023 ambulatory DO Josh Bunting Work Phone: [facility] Work Phone: Start: 11-17-2023 End: 11-18-2023 ambulatory Savanna Mcclain MD Facility: [facility] Start: 11-11-2023 End: 11-11-2023 ambulatory [facility] Start: 11-11-2023 End: 11-11-2023 Office consultation new/estab patient 80 min Maryann Rubalcava MD Work Phone: [facility] Comment on above: Cervical myelopathy (CMS/HCC) (Primary Dx); Sagittal plane imbalance; 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; Lumbar stenosis with neurogenic claudication Start: 11-10-2023 End: 11-10-2023 ambulatory YOGESH BECKER V Not Available Start: 11-03-2023 End: 11-03-2023 Admission to same day surgery center DO Josh Bunting Work Phone: [facility] [place] Start: 11-03-2023 End: 11-03-2023 ambulatory DO Josh Bunting Work Phone: [facility] Work Phone: Start: 10-23-2023 End: 10-23-2023 Patient encounter procedure DO Josh Bunting Work Phone: [facility]Pre[facility]Surgical Testing Work Phone: Start: 10-23-2023 End: 10-23-2023 ambulatory DO Josh Bunting Work Phone: [facility] Work Phone: Start: 10-14-2023 Office outpatient vi sit 40 minutes Karime Nguyen [facility] Neurosurgery Start: 10-14-2023 End: 10-14-2023 ambulatory YOGESH BECKER [facility] [employer] Other Start: 10-14-2023 End: 10-14-2023 Patient encounter procedure DO Josh Bunting Work Phone: [facility] Neurosurgery Work Phone: Start: 10-09-2023 End: 10-09-2023 ambulatory FEROZ PATEL Not Available Start: 10-02-2023 End: 10-02-2023 Admission to same day surgery center DO Josh Bunting Work Phone: [facility] [place] Start: 10-02-2023 End: 10-02-2023 ambulatory DO Josh Bunting Work Phone: [facility] Work Phone: Start: 09-30-2023 End: 09-30-2023 ambulatory Savanna Mcclain MD Facility:[facility] Start: 09-29-2023 End: 09-30-2023 ambulatory Savanna Mcclain MD Facility:[facility] Start: 09-26-2023 End: 09-26-2023 ambulatory IMTIAZ ZAIDI Not Available Start: 09-23-2023 End: 09-23-2023 Patient encounter procedure DO Josh Bunting Work Phone: [facility] Work Phone: Start: 09-23-2023 End: 09-23-2023 ambulatory DO Josh Bunting Work Phone: [facility] Work Phone: Start: 09-22-2023 End: 09-23-2023 ambulatory Savanna Mcclain MD Facility: [facility] Start: 09-16-2023 End: 09-16-2023 ambulatory Karime Nguyen Other [facility] [employer] Other Start: 09-16-2023 Office outpatient ne w 45 minutes Karime Nguyen [facility] Neuro[facility] Start: 09-16-2023 End: 09-16-2023 Patient encounter procedure DO Josh Bunting Work Phone: [facility] Work Phone: Start: 08-11-2023 End: 08-12-2023 ambulatory Savanna Mcclain MD Facility:[facility] [place] Start: 08-11-2023 End: 08-11-2023 Patient encounter procedure DO Josh Bunting Work Phone: [facility] [address] [place] Work Phone: Start: 08-11-2023 End: 08-11-2023 ambulatory DO Josh Bunting Work Phone: [facility] Work Phone: Start: 08-01-2023 End: 08-01-2023 Patient encounter procedure DO Josh Bunting Work Phone: [facility] [place] Work Phone: Start: 08-01-2023 End: 08-01-2023 ambulatory Josh Bunting Facility:[facility] Start: 07-29-2023 End: 07-29-2023 Emergency department patient visit DO Josh Bunting Work Phone: [facility]Emergency [facility] Work Phone: Start: 06-12-2023 End: 06-12-2023 ambulatory Mariel Mcgraw Other [place] [employer] Other Start: 06-12-2023 Telephone encounter Mariel Mcgraw [facility] Start: 04-21-2023 End: 04-21-2023 Patient encounter procedure DO Josh Bunting Work Phone: [facility] [place] Work Phone: Start: 04-21-2023 End: 04-21-2023 ambulatory DO Josh Bunting Work Phone: [facility] Work Phone: Start: 03-26-2023 End: 03-26-2023 ambulatory DONNY PERALTA Facility: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 [employer] Work Phone: Otolaryngology Comment on above: Laryngeal candidiasi s (Primary Dx); Glossitis; Oral candidiasis; Hoarseness of voice; History of alcohol abuse Start: 02-10-2023 End: 02-10-2023 ambulatory DO Josh Bunting Work Phone: [facility] Work Phone: Start: 02-10-2023 End: 02-10-2023 Patient encounter procedure DO Josh Bunting Work Phone: [facility] [place] Work Phone: Start: 12-31-2022 End: 12-31-2022 ambulatory DO Josh Bunting Work Phone: [facility] Work Phone: Start: 12-31-2022 End: 12-31-2022 Patient encounter procedure DO Josh Bunting Work Phone: [facility] [address] Work Phone: Start: 11-06-2022 End: 11-06-2022 ambulatory DO Josh Bunting Work Phone: [facility] Work Phone: Start: 11-06-2022 End: 11-06-2022 Patient encounter procedure DO Josh Bunting Work Phone: [facility] Work Phone: Start: 09-30-2022 End: 09-30-2022 ambulatory DO Josh Bunting Work Phone: [facility] Work Phone: Start: 09-30-2022 End: 09-30-2022 Patient encounter procedure DO Josh Bunting Work Phone: [facility] Start: 06-19-2022 End: 06-19-2022 Patient encounter procedure DO Josh Bunting Work Phone: [facility] Start: 06-05-2022 End: 06-05-2022 ambulatory Alexis Abdi Other [employer] Other Start: 06-05-2022 Telephone encounter Alexisdeven Abdi [facility] [employer] Start: 04-16-2022 End: 04-16-2022 ambulatory Kamal Chaban Other [employer] Other Start: 04-16-2022 Office outpatient vi sit 25 minutes Kamal Chaban [facility] Start: 01-08-2022 End: 01-08-2022 ambulatory Kamal Chaban Other [employer] Other Start: 01-08-2022 Office outpatient vi sit 25 minutes Kamal Chaban [facility] Start: 12-07-2021 End: 12-07-2021 ambulatory Kamal Chaban Other [employer] Other Start: 12-07-2021 Telephone encounter Kamal Chaban [facility] Start: 11-09-2021 ([facility] C Vac) [facility] Co vid Vaccine Courtney Espino [facility] Start: 11-09-2021 End: 11-09-2021 ambulatory Courtney Laminejacqueline Other [employer] Other Start: 09-06-2021 End: 09-06-2021 ambulatory Mariel Mcgraw Other [employer] Other Start: 09-06-2021 Office outpatient vi sit 25 minutes Mariel Mcgraw [facility] Start: 07-26-2021 Telephone encounter Mariel Mcgraw [facility] Start: 07-23-2021 Office outpatient ne w 45 minutes Mariel Mcgraw [facility] Medical Equipment Procedure Code Equipment Code Equipment Origin al Text Equipment Identifier Dates Repair, hernia, ventral, with mesh Abdominal hernia surgical mesh, composite-polymer [id number] FDA Start: 01-19-2024 Repair, hernia, inguinal, with mesh Abdominal hernia surgical mesh, synthetic polymer, non-bioabsorbable [id number] FDA Start: 11-03-2023 [id number] Start: 08-14-2023 Goals Date Patient Goal Desired Activity /State Personal health goal Immunizations Immunization Date Immunization Notes Care Provider Shannan canales 11-09-2021 COVID-19 (Moderna), Age 12+ DO Josh Melvin Work Phone: [facility] 11-09-2021 COVID-19 Moderna Courtney Laminejacqueline Other [facility] 10-16-2021 influenza, injectabl e, quadrivalent, contains preservative Maryann Rubalcava MD Work Phone: [facility] Work Phone: 10-16-2021 influenza virus vaccine, unspecified formulation Maryann Rubalcava MD Work Phone: [facility] Work Phone: 01-04-2021 COVID-19 (J&J) DO Josh Melvin Work Phone: [facility] 01-04-2021 COVID-19 Vaccine Dereck - Documentation Purposes Only Kamal Chaban Other [facility] 08-18-2020 Seasonal, quadrivalent, recombinant, injectable influenza vaccine, preservative free Maryann Rubalcava MD Work Phone: [facility] 07-27-2020 influenza, seasonal, injectable Maryann Rubalcava MD Work Phone: [facility] 11-11-2019 tetanus toxoid, reduced diphtheria toxoid, and acellular pertussis vaccine, adsorbed Kamal Chaban Other [employer] Other 08-16-2019 influenza, seasonal, injectable, preservative free Maryann Rubalcava MD Work Phone: [facility] Work Phone: 08-09-2019 influenza, injectabl e, quadrivalent, preservative free Maryann Rubalcava MD Work Phone: [facility] 08-09-2019 pneumococcal polysaccharide vaccine, 23 valcheyanne Rubalcava MD Work Phone: [facility] 08-08-2019 pneumococcal polysaccharide vaccine, 23 valent Maryann Rubalcava MD Work Phone: [facility] Work Phone: 09-08-2018 influenza, injectabl e, quadrivalent, contains preservative Maryann Rubalcava MD Work Phone: [facility] 07-29-2017 influenza, injectable,quadrivalen t, preservative free, pediatric Kamal Chaban Other [employer] Other 10-14-2009 pneumococcal polysaccharide vaccine, 23 valent Maryann Rubalcava MD Work Phone: [facility] Work Phone: NEGATED: Highlighted row has not occurred!07-29-2017 influenza, injectable,quadrivalen t, preservative free, pediatric Mariel Mcgraw Other [employer] Other Medications Current Medications Medication Drug Class(es) Dates Sig (Normalized) Sig (Original) acetaminophen 325 mg / HYDROcodone bitartrate 5 mg oral tablet (9 sources) Opioid Agonist Start: 01-19-2024 take 1 [...] par) 30 mg tablet every 12 hours. 03/13/2023 Active Start: 03-13-2023 take 1 tablet [...] 2023 12:33pm take 1 tablet by twyla th every [...] twice a day Oral for 28 Days 04/20/2019 Active Comment on above: take 1 capsule by [facility] twice a day Oral for 28 Days clotrimazole 10 mg oral lozenge (1 source) Azole Antifungal Start: End: clotrimazole (MYCELEX) 10 mg bud Use 1 Bud as instructed four times daily for 14 days. 56 tablet 0 03/26/2023 04/09/2023 Active Comment on above: Use 1 Bud as inst ructed four times daily for 14 days. cyclobenzaprine hydrochloride 10 mg oral tablet (16 sources) Muscle Relaxant Start: take 1 tablet by mouth three times daily cyclobenzaprine (Flexeril) 10 mg tablet Take 1 tablet (10 mg) by mouth 3 times a day. 02/07/2023 Active take 1 tablet by [facility] every twenty-four hours Cyclobenzaprine HCl 10 MG 1 tablet at bedtime as needed Orally Once a day Active Comment on above: Take 10 mg by mouth three times daily. diazePAM 5 mg oral tablet (14 sources) Benzodiazepine Start: 3 End: 3 take 1 tablet by mouth three times daily as needed for muscle spasms diazePAM (Valium) 5 mg tablet TAKE 1 TABLET BY MOUTH 3 TIMES A DAY NEEDED FOR MUSCLE SPASM FOR 3 DAYS 07/29/2023 Active docusate sodium 100 mg oral capsule (3 sources) Start: 3 docusate sodium (Colace) 100 mg capsule 1 capsule (100 mg). 02/10/2023 Active DULoxetine 60 mg delayed release oral capsule (20 sources) Serotonin and Norepinephrine Reuptake Inhibitor Start: 9 take 1 capsule by mouth every twelve hours DULoxetine (Cymbalta) [address] capsule 1 capsule (60 mg) every 12 hours. 04/20/2019 Active Start: 04-20-2019 take 1 capsule by [facility] twice daily Duloxetine (Cymbalta) 60 mg Capsule,Delayed Release(Dr/Ec) Active 60 MG PO Twice daily April 20, 2019 12:00am Start: 04-20-2019 Duloxetine (Cy mbalta) 60 mg Capsule,Delayed Release(Dr/Ec) Active 30 MG PO Twice daily April 20, 2019 12:00am take 1 capsule by mo [facility] every twenty-four hours DULoxetine HCl 60 MG 1 capsule Orally Once a day Active Comment on above: 1 capsule q 12 HR. empagliflozin 10 mg oral tablet (14 sources) Sodium-Glucose Cotransporter 2 Inhibitor Start: 07-01-2023 empagliflozin (Jardiance) 10 mg Take 1 tablet (10 mg) by mouth. 07/01/2023 Active empagliflozin (J ARDIANCE) 10 mg tablet Take 10 mg by mouth. 0 Active Comment on above: Take 10 mg by mouth. FreeStyle René reader (FreeStyle René 2 Mays) misc (3 sources) Start: 07-25-2023 End: 07-24-2024 FreeStyle René reader (FreeStyle René 2 Mays) misc 1 each by Does not apply route every 14 (fourteen) days. 07/25/2023 07/24/2024 Active Start: 07-25-2023 End: 07-24-2024 FreeStyle René reader (Free Style René 2 Mays) misc 1 each by Does not apply route every 14 (fourteen) days. 0 07/25/2023 07/24/2024 Active gabapentin 600 mg oral tablet (20 sources) Anti-epileptic Agent Start: 09-23-2023 take 1200 mg by mouth three times daily Gabapentin Active 1200 MG PO Three times daily September 23, 2023 1:00am Start: 04-20-2019 take 2 capsules by [facility] three times daily gabapentin (Neurontin) 600 mg tablet Take 2 capsules by mouth 3 times a day. 04/20/2019 Active Start: 04-20-2019 take 600 mg by mouth three times daily Gabapentin Active 600 MG PO Three times daily September 23, 2023 12:00am Start: 04-20-2019 End: 09-23-2023 take 3 capsules by mouth three times daily Gabapentin Discontinued 3 CAP PO Three times daily April 20, 2019 12:00am September 23, 2023 12:37pm Comment on above: Take 1 capsule by mo [facility]. hydroCHLOROthiazide 12.5 mg / lisinopril 20 mg oral tablet (20 sources) Thiazide Diuretic, Angiotensin Converting Enzyme Inhibitor Start: 09-23-20 take 1 tablet by mouth once daily in the morning Lisinopril-[place] chlorothiazide Active 1 TAB PO Every morning September 23, 2023 1:00am Start: 04-03-2021 lisinopriL-hyd rochlorothiazide 10-12.5 mg tablet 1 (one) time each day at the same time. 04/03/2021 Active take 1 tablet by twyla [...] time. hydrOXYzine pamoate 25 mg oral capsule (14 sources) Antihistamine Start: take 25 mg by mouth every six hours Hydroxyzine Pamoate Active 25 MG PO Q6H September 23, 2023 1:00am Start: 01-30-2023 hydrOXYzine pa moate (Vistaril) 25 mg capsule 1 (one) time each day at the same time. 01/30/2023 Active Start: 01-30-2023 take 1 capsule [...] Insulin) 100 unit/mL (3 mL) insulin pen (10 sources) Start: 09-23-2023 inject 1 dose by [...] insulin aspart, human 100 unt/ml pen injector (3 sources) Insulin Analog Start: 10-09-2023 insulin aspart (NovoLOG Flexpen U-100 Insulin) 100 unit/mL (3 mL) pen 10 units snacks, 20 units supper plus correction 1:30 > 150 mg/dl (max daily 50 units) 10/09/2023 Active Start: 10-09-2023 insulin aspart (NovoLOG Flexpen U-100 Insulin) 100 unit/mL (3 mL) pen 10 units snacks, 20 units supper plus correction 1:30 > 150 mg/dl (max daily 50 units) 0 10/09/2023 Active 3 ml insulin degludec 200 unt/ml pen injector (20 sources) Insulin Analog Start: 10-09-2023 End: 10-08-2024 insulin degludec (Tresiba FlexTouch) 200 unit/mL (3 mL) injection Inject 70 Units under the skin. 10/09/2023 10/08/2024 Active Start: 02-26-2021 Insulin Deglud ec (Tresiba Flextouch U-100) 100 unit/mL (3 mL) Insulin Pen Active 75 UNIT SUBCUT Daily February 26, 2021 12:00am PER PT DOSGAE REPORT Start: 01-17-2020 inject 80 [IU] by sutton bcutaneous injection once daily Tresiba FlexTouch 200 UNIT/ML 80 units Subcutaneous daily Dec, Active Insulin Degludec (Tresiba Flextouch U-100) 100 unit/mL (3 mL) Insulin Pen (10 sources) Start: 02-26-2021 Insulin Deglud ec (Tresiba [...] ml insulin lispro 100 unt/ml pen injector (13 sources) Insulin Analog Start: 01-24-2020 insulin lispro (HumaLOG) 100 unit/mL injection Inject under the skin. 01/24/2020 Active Start: 01-24-2020 HumaLOG KwikPe n 100 UNIT/ML 15 units breakfast, 42 units dinner, 10 units snack plus correction 1:30 > 150 mg/dl (max daily 70) Subcutaneous Dec, Active Start: 01-24-2020 insulin lispro (HumaLOG) 100 unit/mL injection (1 source) Start: 01-24-2020 insulin lispro (HumaLOG) 100 unit/mL injection Inject under the skin. 0 01/24/2020 Active isopropyl alcohol 0.7 ml/ml medicated pad (3 sources) Start: 08-14-2023 alcohol swabs pads, medicated 08/14/2023 Active metFORMIN hydrochloride 1000 mg oral tablet (20 sources) Biguanide Start: 04-20-2019 take 1 tablet by mouth twice daily at mealtime metFORMIN (Glucophage) 1,000 mg tablet Take 1 tablet (1,000 mg) by mouth 2 times a day with meals. 04/20/2019 Active Comment on above: Take 1,000 mg by twyla th. morphine sulfate 15 mg oral tablet (9 sources) Opioid Agonist take 1 tablet by mouth every four hours Morphine Sulfate 15 MG 1 tablet as needed Orally every 4 hrs Active naproxen sodium 220 mg oral capsule (8 sources) Nonsteroidal Anti-inflammatory Drug Start: 10-23-2023 take [...] / oxyCODONE hydrochloride 5 mg oral tablet (11 sources) Opioid Agonist Start: 07-29-2023 End: 09-23-2023 take 1 tablet by mouth every six hours Oxycodone-Acetamin ophen Discontinued 1 TAB PO Q6H 12 July 29, 2023 September 23, 2023 12:37pm ARIPiprazole 15 mg oral tablet (17 sources) Atypical Antipsychotic Start: 04-20-2019 End: 02-26-2021 take 1 tablet by mouth once daily Aripiprazole (Abilify) 15 mg Tablet Discontinued 15 MG PO Daily April 20, 2019 12:00am February 26, 2021 5:36pm buprenorphine 0.15 mg buccal film (17 sources) Partial Opioid Agonist Start: 04-20-2019 End: 02-26-2021 Buprenorphine Hcl (Belbuca) 150 mcg Film Discontinued 150 MCG BUCCAL Q12H April 20, 2019 12:00am February 26, 2021 5:37pm ibuprofen 400 mg oral tablet (17 sources) Nonsteroidal Anti-inflammatory Drug Start: 04-20-2019 End: 09-23-2023 take 400 mg by mouth every six hours Ibuprofen Discontinued 400 MG PO Q6H April 20, 2019 12:00am September 23, 2023 12:37pm insulin isophane, human 100 unt/ml injectable suspension (17 sources) Start: 04-20-2019 End: 02-26-2021 Insulin Nph [...] insulin, regular, human 100 unt/ml injectable solution (17 sources) Insulin Start: 04-20-2019 End: 09-23-2023 Insulin Regular Human (Novolin R Regular U-100 Insuln) 100 unit/mL Solution Discontinued 0 .ROUTE .COMPLEX April 20, 2019 12:00am September 23, 2023 12:42pm 5 units in am 15 UNITS AT NOON 30 units in pm PER PT DOSAGE REPORT perphenazine 4 mg oral tablet (17 sources) Phenothiazine Start: 02-26-2021 End: 05-22-2021 take 4 mg by mouth twice daily Perphenazine Discontinued 4 MG PO Twice daily February 26, 2021 12:00am May 22, 2021 5:19pm tamsulosin hydrochloride 0.4 mg oral capsule (7 sources) alpha-Adrenergic Evi Start: 11-03-2023 End: 01-12-2024 take 1 capsule by mouth once daily Tamsulosin (Flomax) 0.4 mg Capsule Discontinued 0.4 MG PO Daily November 03, 2023 1:00am January 12, 2024 11:07am Payers Date Payer Category Payer Self-pay [id number] 2022 Private Health Insurance 2021 Medicare [id number] 2021 Medicare [id number] [id number] 2021 Medicare [id number] 2.16.840.1.099105.19 2021 Medicare [id number] 2.16.840.1.746038.19 1960 Unknown [id number] 2.16.840.1.057766.3.579.2.196 1958 Unknown [id number] 2.16.840.1.732409.3.579.2.196 1958 Unknown [id number] 2.16.840.1.923949.3.579.2.196 1958 Unknown [id number] 2.16.840.1.622857.3.579.2.196 1958 Unknown [id number] 2.16.840.1.678240.3.579.2.196 1958 Unknown [id number] 2.16.840.1.913687.3.579.2.196 1958 Unknown [id number] 2.16.840.1.695054.3.579.2.196 1958 Unknown [id number] 2.16.840.1.016250.3.579.2.196 1958 Unknown [id number] 2.16.840.1.241664.3.579.2.124 2 1958 Unknown [id number] 2.16.840.1.427527.3.579.2.124 2 1958 Unknown [id number] 2.16.840.1.775343.3.579.2.124 2 1958 Unknown [id number] 2.16.840.1.435762.3.579.2.124 7 1958 Unknown [id number] 2.16.840.1.812457.3.579.2.124 7 1958 Unknown [id number] 2.16.840.1.999324.3.579.2.125 9 1958 Unknown [id number] 2.16.840.1.082669.3.579.2.125 9 1958 Unknown [id number] 2.16.840.1.762524.3.579.2.125 9 1958 Unknown [id number] 2.16.840.1.745928.3.579.2.125 9 1958 Unknown [id number] 2.16.840.1.531003.3.579.2.125 9 1958 Unknown [id number] 2.16.840.1.165275.3.579.2.125 9 1958 Unknown [id number] 2.16.840.1.381203.3.579.2.125 9 1958 Unknown [id number] 2.16.840.1.958681.3.579.2.125 9 1958 Unknown [id number] 2.16.840.1.876733.3.579.2.125 9 Medicare Medicare [id number] Medicare MMO MCR Adv PFFS [id number] Medicare [employer]well MCR [id number] Unknown [id number] 2.16.840.1.798186.3.579.2.531 Unknown [id number] 2.16840.1.247264.3.579.2.531 Unknown [id number] 2.16840.1.944949.3.579.2.531 Unknown [id number] 2.16.840.1.617533.3.579.2.531 Unknown [id number] 2.16.840.1.306185.3.579.2.531 Unknown [id number] 2.16.840.1.244638.3.579.2.531 Unknown [id number] 2.16.840.1.140347.3.579.2.531 Unknown [id number] 2.16.840.1.031509.3.579.2.531 Unknown [id number] 2.16.840.1.438639.3.579.2.531 Unknown [id number] 2.16.840.1.624087.3.579.2.531 Unknown [id number] 2.16.840.1.521083.3.579.2.531 Unknown [id number] 2.16840.1.073943.3.579.2.531 Unknown [id number] 2.16.840.1.499868.3.579.2.531 Unknown [id number] 2.16.840.1.740772.3.579.2.531 Worker's Compensation Industrial [employer] [facility] [id number] Plan of Treatment Date Care Activity Detail Author Start: 07-31-2031 Screening for malign ant neoplasm of colon [facility] Start: 11-11-2029 DTaP/Tdap/Td Vaccine s (2 - Td or Tdap) DTaP/Tdap/Td Vaccines (2 - Td or Tdap) [facility] Start: 06-27-2024 Influenza vaccination Influenz a Vaccine (Season Ended) [facility] Start: 04-01-2024 End: 10-01-2024 Enroll patient in spine cervical NO fusion care plan Enroll patient in spine cervical NO fusion care plan Procedures Routine Expected: 04/01/2024, Expires: 10/01/2024 [facility] Work Phone: Comment on above: Expected: 04/01/2024 , Expires: 10/01/2024 Start: 04-01-2024 End: 04-01-2025 XR Cervical spine 4 or 5 Views [facility] Service Area Work Phone: Comment on above: Expected: 04/01/2024 (Approximate), Expires: 04/01/2025 Once for 1 Occurrenc es starting 04/01/2024 until 04/01/2024 Start: 01-19-2024 End: 01-19-2024 [facility] Start: 11-24-2023 [facility] Start: 11-11-2023 End: 11-11-2024 MR Cervical spine WO contrast MR cervical spine wo IV contrast Imaging Routine Cervical myelopathy (CMS/HCC) Expected: 11/11/2023, Expires: 11/11/2024 [facility] Work Phone: Comment on above: Expected: 11/11/2023 , Expires: 11/11/2024 Start: 11-11-2023 End: 11-11-2024 X-ray scoliosis 2 View (NON EOS) [facility] Service Area Work Phone: Comment on above: Expected: 11/11/2023 , Expires: 11/11/2024 Start: 11-03-2023 [facility] Start: 11-03-2023 [facility] Start: 10-02-2023 Repair of left ingui nal hernia using surgical mesh OR Inguinal Hernia Repair W/Mesh Graft (Left) [facility] Start: 10-02-2023 End: 10-02-2023 [facility] Start: 06-27-2023 COVID-19 Vaccine () COVID-19 Vaccine () [facility] Start: 06-27-2023 Influenza vaccination C [facility] Start: 03-26-2023 End: 05-26-2023 Comprehensive metabolic 2000 panel - Serum or Plasma [facility] Work Phone: Comment on above: Expected: 03/26/2023 , Expires: 05/26/2023 Start: 10-27-2022 DEPRESSION ASSESSMENT DEPRESSION ASS ESSMENT [facility] Start: 01-04-2022 COVID-19 VACCINE (3 - Booster for Dereck series) COVID-19 VACCINE (3 - Booster for Dereck series) [facility] Start: 08-09-2020 Pneumococcal Vaccine : 65+ Years (2 - PCV) Pneumococcal Vaccine: 65+ Years (2 - PCV) [facility] Start: 08-09-2020 Pneumococcal Vaccine : 65+ Years (2 of 2 - PCV) Pneumococcal Vaccine: 65+ Years (2 of 2 - PCV) [facility] Start: 08-09-2020 Pneumococcal Vaccine : Pediatrics (0 to 5 Years) and At-Risk Patients (6 to 64 Years) (2 - PCV) Pneumococcal Vaccine: Pediatrics (0 to 5 Years) and At-Risk Patients (6 to 64 Years) (2 - PCV) [facility] Start: 2018 RSV patient s and/or patients aged 60+ years (1 - 1-dose 60+ series) RSV patients and/or patients aged 60+ years (1 - 1-dose 60+ series) [facility] Start: 2013 PROSTATE CANCER SCREENING DISCUSSION PROSTATE CANCER SCREENING DISCUSSION [facility] Start: 2008 SHINGRIX VACCINE (1 of 2) SHINGRIX VACCINE (1 of 2) [facility] Start: 2008 Zoster Vaccines (1 of 2) Zoste r Vaccines (1 of 2) [facility] Start: 2003 COLOGUARD (FIT-DNA) COLOGUARD (FIT-D NA) [facility] Start: 2003 Colonoscopy COLONOSCOPY [facility] Start: 2003 COLORECTAL CANCER SCREENING COLORECTAL CANCER SCREENING [facility] Start: [address] COLONOGRAPHY [facility] Start: 2003 DIABETES SCREEN DIABETES SCREEN [facility] Start: 2003 FECAL OCCULT BLOOD FECAL OCCULT BLOO D [facility] Start: 2003 SIGMOIDOSCOPY SIGMOIDOSCOPY [facility] Start: 1993 LIPID SCREEN LIPID SCREEN [facility] Start: 1977 Urine microalbumin profile DTAP,TDAP,TD (1 - Tdap) [facility] Start: 1977 Urine screening for protein Diabetes: Urine Protein Screening [facility] Start: 1976 HEPATITIS C SCREENING HEPATITIS C [facility] Start: 1976 Hepatitis C screening Hepatitis C [facility] Start: 1976 HIV SCREENING HIV SCREENING [facility] Start: 1968 Diabetic foot examination Diabetes: Foot Exam [facility] Start: 1968 Glaucoma screening Diabetes: R etinopathy Screening [facility] Start: 1959 MMR Vaccines (1 of 1 - Standard series) MMR Vaccines (1 of 1 - Standard series) [facility] Start: 1958 Annual wellness visit Medicare Initial Physical (IPPE) [facility] Start: 1958 Hemoglobin A1c measurement Diabetes: Hemoglobin A1C [facility] Start: 1958 HIV screening HIV Screening [facility] Start: 1958 Lipid panel Lipid Panel [facility] Start: 1958 Screening for malign ant neoplasm of colon [facility] Lopez w/o facetec foramot/dskc 10/28 vrt seg crv Laminectomy Cervical Cervical myelopathy (Multi) Cervical spinal 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 segment disease 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 procedure [facility] [place] Methylmalonate [Moles/volume] in Serum or Plasma [facility] Patient Education [facility] Work Phone: Patient referral [facility] Work Phone: [facility] Problems Active Problems Problem Classification Problem Date Documented Date Episodic/Chronic Abdominal hernia (2 sources) Ventral hernia without obstruction or gangrene; Translations: [Unilateral inguinal hernia, without obstruction or gangrene, not specified as recurrent] Onset: 10-02-2023 Episodic Alcohol-related disorders (2 sources) History of alcohol abuse; Translations: [Alcohol abuse, in remission] Onset: 03-26-2023 Chronic Anxiety disorders (3 sources) Anxiety; Translations: [Anxiety disorder, unspecified] Onset: 02-28-2023 11-10-2023 Chronic Cardiac dysrhythmias (17 sources) Palpitations; Translations: [Palpitations] 02-26-2021 Episodic Diabetes mellitus with complications (14 sources) Hyperglycemia due to type 2 diabetes mellitus; Translations: [Type 2 diabetes mellitus with hyperglycemia] Onset: 02-28-2023 11-10-2023 Chronic Diabetes mellitus without complication (12 sources) Type 2 diabetes mellitus; Translations: [Type 2 diabetes mellitus without complications] Chronic Diseases of mouth; excluding dental (1 source) Glossitis; Translations: [Glossitis] Episodic Disorders of lipid metabolism (4 sources) Hyperlipidemia; Translations: [Hyperlipidemia, unspecified] Onset: 02-28-2023 11-10-2023 Chronic Esophageal disorders (18 sources) Gastroesophageal reflux disease; Translations: [Gastro-esophageal reflux disease without esophagitis] Onset: 07-23-2021 Resolved: 04-16-2022 Chronic Essential hypertension (3 sources) Hypertensive disorder; Translations: [Essential (primary) hypertension] Onset: 02-28-2023 11-10-2023 Chronic Mood disorders (3 sources) Major depression, single episode; Translations: [Major depressive disorder, single episode, unspecified] Onset: 02-28-2023 11-10-2023 Chronic Mycoses (3 sources) Infective laryngitis; Translations: [Other sites of candidiasis] Onset: 03-26-2023 Episodic Osteoarthritis (12 sources) Arthropathy of left shoulder; Translations: [Primary osteoarthritis, left shoulder] Onset: 02-28-2023 11-10-2023 Chronic Other acquired deformities (1 source) Acquired deformity of spine; Translations: [Other specified deforming dorsopathies, site unspecified] 11-11-2023 Chronic Other acquired deformities (2 sources) Other specified deforming dorsopathies, site unspecified; Translations: [Other specified deforming dorsopathies, site unspecified] Onset: 11-11-2023 Chronic Other connective tissue disease (3 sources) History of reverse prosthetic total arthroplasty of right shoulder; Translations: [Presence of right artificial shoulder joint] Onset: 02-28-2023 11-10-2023 Chronic Other connective tissue disease (1 source) History of cervical spine fusion; Translations: [Arthrodesis status] 03-11-2024 Episodic Other connective tissue disease (2 sources) Arthrodesis status; Translations: [Arthrodesis status] 03-11-2024 Episodic Other lower respiratory disease (11 sources) Nodule of lung; Translations: [Solitary pulmonary nodule] Episodic Other lower respiratory disease (17 sources) Solitary nodule of lung; Translations: [Solitary pulmonary nodule] 05-22-2021 Episodic Other nervous system disorders (6 sources) Chronic pain; Translations: [Other chronic pain] Chronic Other nervous system disorders (1 source) Spinal cord disease; Translations: [Disease of spinal cord, unspecified] Chronic Other nervous system disorders (8 sources) Disease of spinal cord, unspecified; Translations: [Disease of spinal cord, unspecified] Onset: 11-11-2023 Chronic Other nervous system disorders (3 sources) Cervical myelopathy; Translations: [Disease of spinal cord, unspecified] 11-11-2023 Chronic Other nervous system disorders (7 sources) Acute postoperative pain; Translations: [Other acute [...] right side] Onset: 02-28-2023 08-06-2023 Episodic Unclassified (2 sources) Patient has spine surgery Onset: 04-01-2024 04-01-2024 Unclassified (1 source) Encounter for preprocedural laboratory examination; Translations: [Encounter for preprocedural laboratory examination] Onset: 09-23-2023 Unclassified (1 source) Other intervertebral disc degeneration, lumbar region; Translations: [Other intervertebral disc degeneration, lumbar region] Onset: 08-01-2023 Past or Other Problems Problem Classification Problem Date Documented Da te Episodic/Chronic Abdominal pain (3 sources) Flank pain; Translations: [Unspecified abdominal pain] Onset: 02-28-2023 11-10-2023 Episodic Immunizations and screening for infectious disease (1 source) Encounter for immunization Onset: 11-09-2021 Resolved: 11-09-2021 Episodic Other aftercare (6 sources) Long-term current use of insulin; Translations: [USP (current) use of insulin] Episodic Other connective tissue disease (3 sources) Full thickness rotator cuff tear; Translations: [Complete rotator cuff tear or rupture of unspecified shoulder, not specified as traumatic] Onset: 02-28-2023 11-10-2023 Episodic Other connective tissue disease (4 sources) History of lumbar fusion; Translations: [Arthrodesis status] Onset: 09-26-2023 11-10-2023 Episodic Other connective tissue disease (3 sources) Tear of right rotator cuff; Translations: [Unspecified rotator cuff tear or rupture of right shoulder, not specified as traumatic] Onset: 02-28-2023 11-10-2023 Episodic Other gastrointestinal disorders (3 sources) Constipation; Translations: [Constipation, unspecified] Onset: 02-28-2023 11-10-2023 Episodic Other lower respiratory disease (4 sources) Solitary pulmonary nodule; Translations: [Lung nodule R91.1] Onset: 07-23-2021 Resolved: 04-16-2022 Episodic Other lower respiratory disease (1 source) Cough; Translations: [Chronic cough R05] Onset: 07-23-2021 Resolved: 07-23-2021 Episodic Other lower respiratory disease (1 source) Dyspnea, unspecified Onset: 09-06-2021 Resolved: 09-06-2021 Episodic Other nervous system disorders (1 source) Tremor, unspecified; Translations: [Tremor, unspecified] Onset: 11-24-2023 Episodic Residual codes; unclassified (1 source) Other amnesia; Translations: [Other amnesia] Onset: 11-25-2023 Episodic Unclassified (2 sources) Onset: 04-01-2024 04-01-2024 Procedures Date Procedure Procedure Detail Performing Clinician Start: 03-31-2024 Scoliosis survey X-ray DO [employer] Phone: Start: 01-19-2024 Ventral hernioplasty DO [employer] Work Phone: Start: 12-16-2023 MRI of cervical spin e without contrast DO [employer] Work Phone: Start: 11-25-2023 CT of head without contrast DO [employer] Work Phone: Start: 11-11-2023 XR SCOLIOSIS 2 VIEW (NON EOS) MARYANN RUBALCAVA Start: 11-03-2023 Repair of left ingui nal hernia using surgical mesh DO [employer] Work Phone: Start: 08-11-2023 X-ray of cervical spine DO [employer] Work Phone: Start: 08-11-2023 Radiography of thora cic spine DO [employer] Work Phone: Start: 08-01-2023 X-ray of lumbar spin e, six views including bending views DO [employer] Work Phone: Start: 02-10-2023 X-ray of cervical spine DO [employer] Work Phone: Start: 02-10-2023 X-ray of lumbar spin e, two or three views DO [facility] Work Phone: Start: 12-31-2022 CT of chest without contrast DO [employer] Work Phone: Start: 11-06-2022 Plain x-ray of pelvi s and lower extremity DO [employer] Work Phone: Start: 06-19-2022 Radiography of thora cic spine DO [employer] Work Phone: Start: 07-31-2021 Jesse freeman MD Work Phone: Results Test Name Value Interpretation Reference Range Facility XR CERVICAL SPINE COMPLETE 4 -5 VIEWSon 04-01-2024 XR CERVICAL SPINE COMPLETE 4-5 VIEWS Interpreted By: Lety Pickard, STUDY: XR CERVICAL SPINE COMPLETE 4-5 VIEWS 04/01/2024 10:20 am INDICATION: Signs/Symptoms:neck pain and cervical myelopathy COMPARISON: None available. ACCESSION NUMBER(S): [id number] ORDERING CLINICIAN: MARYANN RUBALCAVA TECHNIQUE: AP and lateral views of cervical spine including swimmer's views performed. Lateral views are completed in neutral, flexed, and extended positions. FINDINGS: Postoperative change from anterior cervical discectomy and fusion is seen from C5 to C7. There is corpectomy at the level of C6. There is solid fusion at the C5-6 and the C6-7 levels. However, there is a fracture in the anterior cervical plate at the level of C6-7 occurring between the set of screws placed inferiorly and the next to last screw noted. There is angulation of the plate at this site noted as well. The appearance has not changed since CT study done on 10/10/2023. The C3-4 and C4-5 disc spaces are quite narrowed with large anterior osteophytes at both levels. There is a reversal of cervical lordosis appreciated as well. With extension, the reversal of the cervical lordosis is corrected. IMPRESSION: There is fracture of the spinal plate as outlined above with angulation of the orthopedic hardware at the fracture site. Anterior cervical discectomy and fusion from C5-C7 appears solid with corpectomy performed as well. Marked degenerative disc disease at C3-4 and C4-5 with spondylotic spurring. Reversal of cervical lordosis. Signed by: Lety Pickard 04/02/2024 7:21 PM Dictation workstation: [id number] [facility] Comment on above: Order Comment: Jem hankins perform upright AP, LATERAL views with FLEXION and EXTENSION films. ( Total 4 views ) XR scoliosis surveyon 2023 XR scoliosis survey [facility] [place] [address] [place] [address] XRay Report Signed Patient: Koko Meier MR#: [id number] : 1960 Acct:[id number] Age/Sex: 63 / M ADM Date: 03/31/24 Loc: XD Room: Type: [facility] Attending Dr: Maryann Rubalcava MD Copies to: Maryann Rubalcava MD Ordering Provider: Maryann Rubalcava MD Date of Service: 03/31/24 XR/XR scoliosis survey: M43.8X9 XR scoliosis survey 03/31/2024 4:46 PM SIGNS AND SYMPTOMS: Chronic back pain into gluteal regions radiating to shoulders. Pain radiating into lower extremities, right leg. The left PROTOCOL: Frontal and lateral radiographs of the entire spine COMPARISON: 12/16/2023, 08/11/2023, and 08/01/2023 FINDINGS: Anterior fusion hardware is redemonstrated at the C5-C7 levels. There is posterior fusion hardware in the lumbar spine at the L3-S1 levels. There is 19 degrees of levoconvex curvature of the thoracolumbar spine between T6 and L2. There is moderate disc height loss with anterior and lateral plate formation throughout the lower thoracic and upper lumbar spine. A spinal cord stimulator device is present with the leads extending to the T7 superior endplate. Atherosclerotic changes are noted in the thoracic aorta and especially location of the carotid bifurcations. XR/XR scoliosis survey IMPRESSION: There is 19 degrees of levoconvex curvature of the thoracolumbar spine between T6 and L2. Postoperative changes are noted similar to the prior exam. Impression dictated by: Bruce Ortiz M.D.03/31/2024 6:16 PM Dictation Location: [place] [address] Transcribed By: SHIRLEY 03/31/241815 Dictated By: Bruce Ortiz II, MD 03/31/241811 Signed By: 03/31/241815 Normal [facility] Amphetamine Screen Ql (U)Ord ered By: Giuseppe Desouza on 01-19-2024 Amphetamines Ql (U) Negative Negative [facility] Barbiturates [Presence] in U rine by Screen methodOrdered By: Giuseppe Desouza on 01-19-2024 Barbiturates Screen Ql (U) Negative Negative [facility] Benzodiazepines Screen Ql (U )Ordered By: Giuseppe Desouza on 01-19-2024 Benzodiazepines Ql (U) Negative Negative [facility] Benzoylecgonine [Presence] i n Urine by Screen methodOrdered By: Giuseppe Desouza on 01-19-2024 Benzoylecgonine Screen Ql (U) Negative Negative [facility] Cannabinoids [Presence] in U rine by Screen methodOrdered By: Giuseppe Desouza on 01-19-2024 Cannabinoids Screen Ql (U) Positive Negative [facility] Comment on above: These are unconfirme d results and should not be used for legal purposes. Drug Cut-Off Concentration: AMPH 1000 ng/mL ZE 200 ng/mL DUANE 200 ng/mL COCM 300 ng/mL OP 300 ng/mL PCP 25 ng/mL THC 20 ng/mL Capillary blood glucose ezra urement by glucometer (mass/volume)Ordered By: Yogesh Becker on 01-19-2024 Glucose [Mass/Vol] 160 mg/dL Normal [facility] Comment on above: Random Glucose Refer ence Range is dependent on time and content of last meal. Glucose of more than 200 mg/dL in a nonstressed, ambulatory subject supports the diagnosis of Diabetes Mellitus. Result Comment: [place] Glucose Reference Range is dependent on time and content of last meal. Glucose of more than 200 mg/dL in a nonstressed, ambulatory subject supports the diagnosis of Diabetes Mellitus. PERFORMED BY: [place] [address] PATHOLOGIST CUB REPORTER CLEVE CANDELARIA M.D. Performed By: #### T SH3, [id number] #### [address] #### METH #### [facility] , Drug Screen,Urineon 01-19-20 24 Amphetamine Screen,Urine Negative Normal Negative [facility] Comment on above: Order Comment: Comme nt stat when patient gets to prep Performed By: #### T SH3, [id number] #### [address] #### METH #### [facility] , Barbiturate Screen,Urine Negative Normal Negative [facility] Comment on above: Order Comment: Comme nt stat when patient gets to prep Performed By: #### T SH3, [id number] #### [address] #### METH #### [facility] , Benzodiazepines Screen,Urine Negative Normal Negative [facility] Comment on above: Order Comment: Comme nt stat when patient gets to prep Performed By: #### T SH3, [id number] #### [address] #### METH #### [facility] , Cannabinoid Screen,Urine Positive High Negative [facility] Comment on above: Order Comment: Comme nt stat when patient gets to prep Result Comment: Thes e are unconfirmed results and should not be used for legal purposes. Drug Cut-Off Concentration: AMPH 1000 ng/mL ZE 200 ng/mL DUANE 200 ng/mL COCM 300 ng/mL OP 300 ng/mL PCP 25 ng/mL THC 20 ng/mL PERFORMED BY: [place] [address] PATHOLOGIST CUB REPORTER CLEVE CANDELARIA M.D. Performed By: #### T SH3, [id number] #### [facility] [address] [place] [address] [place] #### METH #### [facility] , Cocaine Screen,Urine Negative Normal Negative [facility] Comment on above: Order Comment: Comme nt stat when patient gets to prep Performed By: #### T SH3, [id number] #### [facility] [address] [place] [address] [place] #### METH #### [facility] , Opiate Screen,Urine Negative Normal Negative [facility] Comment on above: Order Comment: Comme nt stat when patient gets to prep Performed By: #### T SH3, [id number] #### [place] [address] [place] #### METH #### [facility] , Phencyclidine Screen,Urine Negative Normal Negative [facility] Comment on above: Order Comment: Comme nt stat when patient gets to prep Performed By: #### T SH3, [id number] #### [address] #### METH #### [facility] , Glucose Poct Glucometerson 0 01-19-2024 Commemt1 Glu2: Cleaned Meter Normal [facility] Comment on above: Result Comment: PERF ORMED BY: [place] [address] PATHOLOGIST CUB REPORTER CLEVE CANDELARIA M.D. Performed By: #### T SH3, [id number] #### [place] [address] [place] #### METH #### [facility] , Commemt1 Glu2: Cleaned Meter Normal [facility] Comment on above: Result Comment: PERF ORMED BY: [place] [address] PATHOLOGIST CUB REPORTER CLEVE CANDELARIA M.D. Performed By: #### G LULS #### Point of Care testing , Glucose [Mass/Vol] 250 mg/dL Normal [facility] Comment on above: Result Comment: [place] om Glucose Reference Range is dependent on time and content of last meal. Glucose of more than 200 mg/dL in a nonstressed, ambulatory subject supports the diagnosis of Diabetes Mellitus. Performed By: #### T SH3, [id number] #### [facility] [address] #### METH #### [facility] , Glucose [Mass/Vol] 162 mg/dL Normal [facility] Comment on above: Result Comment: [place] om Glucose Reference Range is dependent on time and content of last meal. Glucose of more than 200 mg/dL in a nonstressed, ambulatory subject supports the diagnosis of Diabetes Mellitus. Performed By: #### G LULS #### Point of Care testing , No Panel InformationOrdered By: Yogesh Becker on 01-19-2024 Bedside Glucose Comment Glu2: cleaned meter [facility] Opiates [Presence] in Urine by Screen methodOrdered By: Giuseppe Desouza on 01-19-2024 Opiates Screen Ql (U) Negative Negative [facility] Phencyclidine Screen Ql (U)O rdered By: Giuseppe Desouza on 01-19-2024 Phencyclidine Ql (U) Negative Negative [facility] Automated basophil %Ordered By: Yogesh Becker on 01-12-2024 Basophils/100 WBC (Bld) 0.9 % Normal . [facility] Comment on above: Performed By: #### C BC, BMP #### [address] Automated basophil countOrde red By: Yogesh Becker on 01-12-2024 Basophils (Bld) [#/Vol] 0.1 10*3/uL Normal 0.0-0.2 [facility] Comment on above: Result Comment: PERF ORMED BY: [place] [address] PATHOLOGIST CUB REPORTER CLEVE CANDELARIA M.D. Performed By: #### C BC, BMP #### [address] Automated blood monocyte cou ntOrdered By: Yogesh Becker on 01-12-2024 Monocytes (Bld) [#/Vol] 0.4 10*3/uL Normal 0.0-0.8 [facility] Comment on above: Performed By: #### C BC, BMP #### [address] Automated eosinophil %Ordere d By: Yogesh Becker on 01-12-2024 Eosinophils/100 WBC (Bld) 3.9 % Normal . [facility] Comment on above: Performed By: #### C BC, BMP #### [address] Automated eosinophil countOr dered By: Yogesh Becker on 01-12-2024 Eosinophils (Bld) [#/Vol] 0.3 10*3/uL Normal 0.0-0.45 [facility] Comment on above: Performed By: #### C BC, BMP #### [address] Automated monocyte %Ordered By: Yogesh Becker on 01-12-2024 Monocytes/100 WBC (Bld) 5.2 % Normal . [facility] Comment on above: Performed By: #### C BC, BMP #### [address] Automated neutrophil %Ordere d By: Yogesh Becker on 01-12-2024 Neutrophils/100 WBC (Bld) 73.3 % Normal . [facility] Comment on above: Performed By: #### C BC, BMP #### [address] Basic Metabolic Panelon 12-25 GFR/1.73 sq M.predicted MDRD (S/P/Bld) [Vol rate/Area] mL/min/{1.73_m2} Normal [facility] Comment on above: Performed By: #### C BC, BMP #### [address] Calcium [Mass/volume] in Ser um or PlasmaOrdered By: Yogesh Becker on 01-12-2024 Calcium [Mass/Vol] 9.3 mg/dL Normal 8.6-10.3 [facility] Comment on above: Result Comment: PERF ORMED BY: [place] [address] PATHOLOGIST CUB REPORTER CLEVE CANDELARIA M.D. Performed By: #### C BC, BMP #### [address] Carbon dioxide, total [Moles /volume] in Serum or PlasmaOrdered By: Yogesh Becker on 01-12-2024 CO2 [Moles/Vol] 33.8 mmol/L High 21.0-31.0 [facility] Comment on above: Performed By: #### C BC, BMP #### [place] [address] [place] Chloride [Moles/volume] in S raffi or PlasmaOrdered By: Yogesh Becker on 01-12-2024 Chloride [Moles/Vol] 98 mmol/L Normal 98-107 [facility] Comment on above: Performed By: #### C BC, BMP #### [address] Complete Blood Count Auto Di ffon 01-12-2024 Mean Corpuscular HGB Conc 33.1 g/dL Normal 32.5-35.6 [facility] Comment on above: Performed By: #### C BC, BMP #### [address] NRBC% 0.1 /100{WBC} Normal 0-0.5 [facility] Comment on above: Performed By: #### C BC, BMP #### [address] Creatinine [Mass/volume] in Serum or PlasmaOrdered By: Yogesh Becker on 01-12-2024 Creatinine [Mass/Vol] 0.82 mg/dL Normal 0.70-1.30 [facility] Comment on above: Performed By: #### C BC, BMP #### [facility] [address] Erythrocyte distribution wid th [Ratio] by Automated countOrdered By: Yogesh Becker on 01-12-2024 Erythrocyte distribution width (RBC) [Ratio] 14.2 % Normal 12.0-14.8 [facility] Comment on above: Performed By: #### C BC, BMP #### [facility] [address] Erythrocytes [#/volume] in B lood by Automated countOrdered By: Yogesh Becker on 01-12-2024 RBC (Bld) [#/Vol] 5.21 10*6/uL Normal 3.90-5.60 [facility] Comment on above: Performed By: #### C BC, BMP #### [facility] [address] Glucose [Mass/volume] in Ser um or PlasmaOrdered By: Yogesh Becker on 01-12-2024 Glucose [Mass/Vol] 281 mg/dL High 70-100 [facility] Comment on above: ADA recommended refe rence rangeRandom Glucose Reference Range is dependent on time and content of last meal. Glucose of more than 200 mg/dL in a nonstressed, ambulatory subject supports the diagnosis of Diabetes Mellitus. Result Comment: [place] om Glucose Reference Range is dependent on time and content of last meal. Glucose of more than 200 mg/dL in a nonstressed, ambulatory subject supports the diagnosis of Diabetes Mellitus. ADA recommended reference range Performed By: #### C BC, BMP #### [facility] [address] Hematocrit [Volume Fraction] of Blood by Automated countOrdered By: Yogesh Becker on 01-12-2024 Hematocrit (Bld) [Volume fraction] 50.5 % High 38.8-50.0 [facility] Comment on above: Performed By: #### C BC, BMP #### [facility] [address] [place] [address] [place] Hemoglobin [Mass/volume] in BloodOrdered By: Yogesh Becker on 01-12-2024 Hemoglobin (Bld) [Mass/Vol] 16.7 g/dL Normal 13.0-17.0 [facility] Comment on above: Performed By: #### C AMAIRANI, BMP #### [address] Leukocytes [#/volume] correc charanjit for nucleated erythrocytes in Blood by Automated counOrdered By: Yogesh Becker on 01-12-2024 WBC corrected for nucl RBC Auto (Bld) [#/Vol] 8.5 10*3/uL 4.1-10.5 [facility] Leukocytes [#/volume] in Blo od by Automated countOrdered By: Yogesh Becker on 01-12-2024 WBC (Bld) [#/Vol] 8.5 10*3/uL Normal 4.1-10.5 [facility] Comment on above: Performed By: #### C AMAIRANI, BMP #### [place] [address] [place] Lymphocytes [#/volume] in Bl ood by Automated countOrdered By: Yogesh Becker on 01-12-2024 Lymphocytes (Bld) [#/Vol] 1.4 10*3/uL Normal 1.00-4.8 [facility] Comment on above: Performed By: #### C AMAIRANI, BMP #### [address] Lymphocytes/100 leukocytes i n Blood by Automated countOrdered By: Yogesh Becker on 01-12-2024 Lymphocytes/100 WBC (Bld) 16.7 % Normal . [facility] Comment on above: Performed By: #### C AMAIRANI, BMP #### [place] [address] [place] MCH [Entitic mass] by Automa charanjit countOrdered By: Yogesh Becker on 01-12-2024 MCH (RBC) [Entitic mass] 32.1 pg Normal 27.5-35.2 [facility] Comment on above: Performed By: #### C AMAIRANI, BMP #### [address] [address] [place] MCHC Auto (RBC) [Mass/Vol]Or dered By: Yogesh Becker on 01-12-2024 MCHC (RBC) [Mass/Vol] 33.1 g/dL 32.5-35.6 [facility] MCV [Entitic volume] by Auto mated countOrdered By: Yogesh Becker on 01-12-2024 MCV (RBC) [Entitic vol] 96.9 fL Normal 83.5-101 [facility] Comment on above: Performed By: #### C BC, BMP #### [facility] [address] [place] [address] Neutrophils [#/volume] in Bl ood by Automated countOrdered By: Yogesh Becker on 01-12-2024 Neutrophils (Bld) [#/Vol] 6.2 10*3/uL Normal 1.8-7.7 [facility] Comment on above: Performed By: #### C BC, BMP #### [facility] [address] [place] [address] No Panel InformationOrdered By: Yogesh Becker on 01-12-2024 Estimated GFR (CKD-EPI) > 60.0 mL/Min [facility] Creatinine Clearance (Chem N/A [facility] Nucleated erythrocytes [Pres ence] in Blood by Automated countOrdered By: Yogesh Becker on 01-12-2024 Nucleated RBC Auto Ql (Bld) 0.1 /100{WBC} 0-0.5 [facility] Platelet mean volume [Entiti c volume] in Blood by Automated countOrdered By: Yogesh Becker on 01-12-2024 Platelet mean volume (Bld) [Entitic vol] 8.6 fL Normal 6.6-10.1 [facility] Comment on above: Performed By: #### C BC, BMP #### [facility] [address] [place] [address] Platelets [#/volume] in Bloo d by Automated countOrdered By: Yogesh Becker on 01-12-2024 Platelets (Bld) [#/Vol] 186 10*3/uL Normal 150-450 [facility] Comment on above: Performed By: #### C BC, BMP #### [facility] [address] Potassium [Moles/volume] in Serum or PlasmaOrdered By: Yogesh Becker on 01-12-2024 Potassium [Moles/Vol] 5.0 mmol/L Normal 3.5-5.1 [facility] Comment on above: Performed By: #### C BC, BMP #### [address] Serum or plasma anion gap de terminationOrdered By: Yogesh Becker on 01-12-2024 Anion gap [Moles/Vol] 9.2 mmol/L Normal 6.0-15.0 [facility] Comment on above: Performed By: #### C BC, BMP #### [address] Sodium [Moles/volume] in Ser um or PlasmaOrdered By: Yogesh Becker on 01-12-2024 Sodium [Moles/Vol] 136 mmol/L Normal 136-145 [facility] Comment on above: Performed By: #### C BC, BMP #### [address] Urea nitrogen [Mass/volume] in Serum or PlasmaOrdered By: Yogesh Becker on 01-12-2024 Urea nitrogen [Mass/Vol] 24 mg/dL Normal 7-25 [facility] Comment on above: Performed By: #### C BC, BMP #### [address] MR cervical spine wo conon 0 12-16-2023 MR cervical spine wo con [facility] [place] [address] [place] [address] MRI Report Signed Patient: Koko Meier MR#: [id number] : 1960 Acct:[id number] Age/Sex: 63 / M ADM Date: 12/16/23 [facility]: Type: [facility] Attending Dr: [...] Bruce Ortiz M.D.12/16/2023 3:15 PM Dictation Location: [place] [address] Transcribed By: [facility] 12/16/23 1515 Dictated By: Bruce Ortiz II, MD 12/16/23 1500 Signed By: 12/16/23 1515 Normal [facility] wo [facility] [place] [address] [place] [address] CT Scan Report Signed Patient: Koko Meier MR#: [id number] : 1960 Acct:[id number] Age/Sex: 62 / M ADM Date: 11/25/23 [...] Koko Hernandez M.D.11/25/2023 12:02 PM Dictation Location: [place] [address] Transcribed By: [facility] 11/25/23 1202 Dictated By: Koko Hernandez DO 11/25/23 1201 Signed By: 11/25/23 1202 Normal [facility] Cholesterol [Mass/volume] in Serum or PlasmaOrdered By: Josh Melvin on 11-24-2023 Cholesterol [Mass/Vol] 168 mg/dL Normal 140-200 [facility] Comment on above: Chol less than 200 m g/dl low riskChol 201-239 mg/dl borderline riskChol 240 mg/dl and greater high risk Result Comment: Chol less than 200 mg/dl low risk Chol 201-239 mg/dl borderline risk Chol 240 mg/dl and greater high risk Performed By: #### C BC, BMP #### [facility] [address] [place] [address] Cholesterol in LDL Calc [Mas s/Vol]Ordered By: Josh Melvin on 11-24-2023 Cholesterol in LDL [Mass/Vol] 70 mg/dL 0-100 [facility] Comment on above: LDL ATP III CLASSIFI CATIONLDL less than 100 mg/dL OptimalLDL 100-129 mg/dL Near or above optimalLDL 130-159 mg/dL Borderline highLDL 160-189 mg/dL HighLDL greater than 189 mg/dL Very high Cholesterol in VLDL Calc [Ma ss/Vol]Ordered By: Josh Melvin on 11-24-2023 Cholesterol in VLDL [Mass/Vol] 43 mg/dL [facility] Folate [Mass/volume] in Seru m or PlasmaOrdered By: Oliver Kerr on 11-24-2023 Folate [Mass/Vol] 14.9 ng/mL >5.9 [facility] Comment on above: Folate reference ran ge: >5.9 ng/mlThe WHO technical consultation on folate and vitamin [id number] has determined that folate concentrations lessthan 4 ng/ml are considered deficient. Lipid Panelon 11-24-2023 LDL Cholesterol,Calculated 70 mg/dL Normal 0-100 [facility] Comment on above: Result Comment: LDL ATP III CLASSIFICATION LDL less than 100 mg/dL Optimal LDL 100-129 mg/dL Near or above optimal LDL 130-159 mg/dL Borderline high LDL 160-189 mg/dL High LDL greater than 189 mg/dL Very high Performed By: #### C BC, BMP #### [address] Triglyceride w/Reflex 218 mg/dL High 0-149 [facility] Comment on above: Result Comment: TRIG ATP III CLASSIFICATION TRIG less than 150 mg/dL Normal TRIG 150-199 mg/dL Borderline high TRIG 200-500 mg/dL High TRIG greater than 500 mg/dL Very high Standard traceable to the Center for Disease Conrtrol and Prevention (CDC) test method. Performed By: #### C BC, BMP #### [address] VLDL CHOLESTEROL 43 mg/dL Normal [facility] Comment on above: Performed By: #### C BC, BMP #### [address] Methylmalonic Acidon 024 Methylmalonic Acid 169 Normal 0-378 [facility] Comment on above: Result Comment: This test was developed and its performance characteristics determined by [facility]. It has not been cleared or approved by the Food and Drug Administration. Performed at: [address] [id number] Hair Boiler Operator: Caroline Romo MD, Phone: [phone] PERFORMED BY: [place] [address] PATHOLOGIST CUB REPORTER CLEVE CANDELARIA M.D. Performed By: #### T SH3, [id number] #### [address] #### METH #### [facility] , PSA Screen (Yearly Only)on 0 11-24-2023 PSA Screen (Yearly Only) 1.380 ng/mL Normal 0.000-4.00 0 [facility] Comment on above: Order Comment: Is pa tient <50 yrs? Medicare does not pay <50.: Y What is the date of the last PSA Screen?: 01/31/22 Is Medicare the insurance?: U Did you verify eligibility (Dx Time) check TestViewGp: YES TO ALL Result Comment: Seri al tumor marker results determined by assays using different manufacturers or methods may not be comparable. [facility] technician test systems and method: [employer] DXI, CHEMILUMINESCENT IMMUNOASSAY. PERFORMED BY: [place] [address] PATHOLOGIST CUB REPORTER CLEVE CANDELARIA M.D. Performed By: #### C AMAIRANI, BMP #### [address] Prostate specific Ag [Mass/v olume] in Serum or PlasmaOrdered By: Josh Melvin on 11-24-2023 Prostate specific Ag [Mass/Vol] 1.380 ng/mL 0.000-4.00 0 [facility] Comment on above: Serial tumor marker results determined by assays using different manufacturers or methods may not be comparable.[facility] technician test systems and method:[employer] UN[employer]EL DXI, CHEMILUMINESCENT IMMUNOASSAY. Serum or plasma high density lipoprotein (HDL) cholesterol measurementOrdered By: Josh Melvin on 11-24-2023 Cholesterol in HDL [Mass/Vol] 54 mg/dL Normal 23-92 [facility] Comment on above: HDL CHOL ATP-III CLA SSIFICATION Cardiovascular RiskHDL > or equal to 60 mg/dL LOWHDL < 40 mg/dL HIGH Result Comment: HDL CHOL ATP-III CLASSIFICATION Cardiovascular Risk HDL > or equal to 60 mg/dL LOW HDL < 40 mg/dL HIGH Performed By: #### C BC, BMP #### [facility] [address] [place] [address] Serum or plasma methylmalona te measurement (moles/volume)Ordered By: Oliver Kerr on 11-24-2023 Methylmalonate [Moles/Vol] 169 nmol/L 0-378 [facility] Comment on above: This test was develo ped and its performance characteristicsdetermined by [employer]. It has not been cleared orapproved by the Food and Drug Administration.Performed at: - [facility] [address] [place], [place] [id number] Director: Caroline Romo MD, Phone: [phone] Serum or plasma total choles terol/high density lipoprotein (HDL) cholesterol mass ratOrdered By: Josh Melvin on 11-24-2023 Cholesterol.total/Chol esterol in HDL [Mass ratio] 3.1 {ratio} Normal <5.0 [facility] Comment on above: Result Comment: PERF ORMED BY: [place] [address] PATHOLOGIST CUB REPORTER CLEVE CANDELARIA M.D. Performed By: #### C BC, BMP #### [facility] [address] [place] [address] Thyrotropin [Units/volume] i n Serum or PlasmaOrdered By: Oliver Kerr on 11-24-2023 TSH Qn 2.24 m[IU]/L Normal 0.45-5.33 [facility] Comment on above: Result Comment: PERF ORMED BY: [place] [address] PATHOLOGIST CUB REPORTER CLEVE CANDELARIA M.D. Performed By: #### T SH3, [id number] #### [address] #### METH #### [facility] , Triglyceride [Mass/volume] i n Serum or PlasmaOrdered By: Josh Melvin on 11-24-2023 Triglyceride [Mass/Vol] 218 mg/dL 0-149 [facility] Comment on above: TRIG ATP III CLASSIF ICATIONTRIG less than 150 mg/dL NormalTRIG 150-199 mg/dL Borderline highTRIG 200-500 mg/dL High TRIG greater than 500 mg/dL Very highStandard traceable to the Center for Disease Conrtrol and Prevention (CDC) test method. Vit. B12/Folate Profileon Folate 14.9 ng/mL Normal >5.9 [facility] Comment on above: Result Comment: Lin te reference range: >5.9 ng/ml The WHO technical consultation on folate and vitamin b12 deficiencies has determined that folate concentrations less than 4 ng/ml are considered deficient. Performed By: #### T SH3, [id number] #### [facility] [address] [place] [address] [place] #### METH #### [facility] , Vitamin B12 ser/plasOrdered By: Olivre Kerr on 11-24-2023 Cobalamin (Vitamin B12) [Mass/Vol] 365 pg/mL Normal 180-914 [facility] Comment on above: Performed By: #### T SH3, [id number] #### [facility] [address] [place] [address] #### METH #### [facility] , Amphetamine Screen Ql (U)Ord ered By: Kenroy Domínguez on 11-03-2023 Amphetamines Ql (U) Negative Negative [facility] Barbiturates [Presence] in U rine by Screen methodOrdered By: Kenroy Domínguez on 11-03-2023 Barbiturates Screen Ql (U) Negative Negative [facility] Benzodiazepines Screen Ql (U )Ordered By: Kenroy Domínguez on 11-03-2023 Benzodiazepines Ql (U) Negative Negative [facility] Benzoylecgonine [Presence] i n Urine by Screen methodOrdered By: Kenroy Domínguez on 11-03-2023 Benzoylecgonine Screen Ql (U) Negative Negative [facility] Cannabinoids [Presence] in U rine by Screen methodOrdered By: Kenroy Domínguez on 11-03-2023 Cannabinoids Screen Ql (U) Positive Negative [facility] Comment on above: These are unconfirme d results and should not be used for legal purposes. Drug Cut-Off Concentration: AMPH 1000 ng/mL ZE 200 ng/mL DUANE 200 ng/mL COCM 300 ng/mL OP 300 ng/mL PCP 25 ng/mL THC 20 ng/mL Capillary blood glucose ezra urement by glucometer (mass/volume)Ordered By: Yogesh Becker on 11-03-2023 Glucose [Mass/Vol] 185 mg/dL Normal [facility] Comment on above: Random Glucose Refer ence Range is dependent on time and content of last meal. Glucose of more than 200 mg/dL in a nonstressed, ambulatory subject supports the diagnosis of Diabetes Mellitus. Result Comment: [place] Glucose Reference Range is dependent on time and content of last meal. Glucose of more than 200 mg/dL in a nonstressed, ambulatory subject supports the diagnosis of Diabetes Mellitus. PERFORMED BY: [place] [address] PATHOLOGIST CUB REPORTER CLEVE CANDELARIA M.D. Performed By: #### C BC, BMP #### [place] [address] [place] Drug Screen,Urineon 11-03-19 24 Amphetamine Screen,Urine Negative Normal Negative [facility] Comment on above: Performed By: #### C BC, BMP #### [place] [address] [place] Barbiturate Screen,Urine Negative Normal Negative [facility] Comment on above: Performed By: #### C BC, BMP #### [place] [address] [place] Benzodiazepines Screen,Urine Negative Normal Negative [facility] Comment on above: Performed By: #### C BC, BMP #### [address] Cannabinoid Screen,Urine Positive High Negative [facility] Comment on above: Result Comment: Thes e are unconfirmed results and should not be used for legal purposes. Drug Cut-Off Concentration: AMPH 1000 ng/mL ZE 200 ng/mL DUANE 200 ng/mL COCM 300 ng/mL OP 300 ng/mL PCP 25 ng/mL THC 20 ng/mL PERFORMED BY: [place] [address] PATHOLOGIST CUB REPORTER CLEVE CANDELARIA M.D. Performed By: #### C BC, BMP #### [place] [address] [place] Cocaine Screen,Urine Negative Normal Negative [facility] Comment on above: Performed By: #### C BC, BMP #### [facility] [address] Opiate Screen,Urine Negative Normal Negative [facility] Comment on above: Performed By: #### C BC, BMP #### [facility] [address] Phencyclidine Screen,Urine Negative Normal Negative [facility] Comment on above: Performed By: #### C BC, BMP #### [facility] [address] Glucose Poct Glucometerson 0 11-03-2023 Glucose [Mass/Vol] 180 mg/dL Normal [facility] Comment on above: Result Comment: [facility] Glucose Reference Range is dependent on time and content of last meal. Glucose of more than 200 mg/dL in a nonstressed, ambulatory subject supports the diagnosis of Diabetes Mellitus. PERFORMED BY: [place] [address] PATHOLOGIST CUB REPORTER CLEVE CANDELARIA M.D. Performed By: #### G LULS #### Point of Care testing , Opiates [Presence] in Urine by Screen methodOrdered By: Kenroy Domínguez on 11-03-2023 Opiates Screen Ql (U) Negative Negative [facility] Phencyclidine Screen Ql (U)O rdered By: Kenroy Domínguez on 11-03-2023 Phencyclidine Ql (U) Negative Negative [facility] Automated basophil %Ordered By: Yogesh Becker on 10-23-2023 Basophils/100 WBC (Bld) 0.8 % Normal . [facility] Comment on above: Performed By: #### B MP, CBC #### [address] Automated basophil countOrde red By: Yogesh Becker on 10-23-2023 Basophils (Bld) [#/Vol] 0.0 10*3/uL Normal 0.0-0.2 [facility] Comment on above: Result Comment: PERF ORMED BY: [place] [address] PATHOLOGIST CUB REPORTER CLEVE CANDELARIA M.D. Performed By: #### B MP, CBC #### [address] Automated blood monocyte cou ntOrdered By: Yogesh Becker on 10-23-2023 Monocytes (Bld) [#/Vol] 0.5 10*3/uL Normal 0.0-0.8 [facility] Comment on above: Performed By: #### B MP, CBC #### [address] Automated eosinophil %Ordere d By: Yogesh Becker on 10-23-2023 Eosinophils/100 WBC (Bld) 3.6 % Normal . [facility] Comment on above: Performed By: #### B MP, CBC #### [address] Automated eosinophil countOr dered By: Yogesh Becker on 10-23-2023 Eosinophils (Bld) [#/Vol] 0.2 10*3/uL Normal 0.0-0.45 [facility] [facility] Comment on above: Performed By: #### B MP, CBC #### [address] Automated monocyte %Ordered By: Yogesh Becker on 10-23-2023 Monocytes/100 WBC (Bld) 9.4 % Normal . [facility] Comment on above: Performed By: #### B MP, CBC #### [address] Automated neutrophil %Ordere d By: Yogesh Becker on 10-23-2023 Neutrophils/100 WBC (Bld) 59.4 % Normal . [facility] Comment on above: Performed By: #### B MP, CBC #### [address] Basic Metabolic Panelon 09-27 GFR/1.73 sq M.predicted MDRD (S/P/Bld) [Vol rate/Area] mL/min/{1.73_m2} Normal [facility] Comment on above: Performed By: #### C BC, BMP #### [facility] [address] Calcium [Mass/volume] in Ser um or PlasmaOrdered By: Yogesh Becker on 10-23-2023 Calcium [Mass/Vol] 8.8 mg/dL Normal 8.6-10.3 [facility] Comment on above: Result Comment: PERF ORMED BY: [place] [address] PATHOLOGIST CUB REPORTER CLEVE CANDELARIA M.D. Performed By: #### C BC, BMP #### [address] Carbon dioxide, total [Moles /volume] in Serum or PlasmaOrdered By: Yogesh Becker on 10-23-2023 CO2 [Moles/Vol] 33.8 mmol/L High 21.0-31.0 [facility] Comment on above: Performed By: #### C BC, BMP #### [place] [address] [place] Chloride [Moles/volume] in S raffi or PlasmaOrdered By: Yogesh Becker on 10-23-2023 Chloride [Moles/Vol] 100 mmol/L Normal 98-107 [facility] Comment on above: Performed By: #### C BC, BMP #### [address] Complete Blood Count Auto Di ffon 10-23-2023 Mean Corpuscular HGB Conc 33.8 g/dL Normal 32.5-35.6 [facility] Comment on above: Performed By: #### B MP, CBC #### [place] [address] [place] NRBC% 0.1 /100{WBC} Normal 0-0.5 [facility] Comment on above: Performed By: #### B MP, CBC #### [place] [address] [place] Creatinine [Mass/volume] in Serum or PlasmaOrdered By: Yogesh Becker on 10-23-2023 Creatinine [Mass/Vol] 0.71 mg/dL Normal 0.70-1.30 [facility] Comment on above: Performed By: #### C BC, BMP #### [facility] [address] Erythrocyte distribution wid th [Ratio] by Automated countOrdered By: Yogesh Becker on 10-23-2023 Erythrocyte distribution width (RBC) [Ratio] 14.3 % Normal 12.0-14.8 [facility] Comment on above: Performed By: #### B MP, CBC #### [facility] [address] Erythrocytes [#/volume] in B lood by Automated countOrdered By: Yogesh Becker on 10-23-2023 RBC (Bld) [#/Vol] 5.01 10*6/uL Normal 3.90-5.60 [facility] Comment on above: Performed By: #### B MP, CBC #### [address] Glucose [Mass/volume] in Ser um or PlasmaOrdered By: Yogesh Becker on 10-23-2023 Glucose [Mass/Vol] 105 mg/dL High 70-100 [facility] Comment on above: ADA recommended refe rence rangeRandom Glucose Reference Range is dependent on time and content of last meal. Glucose of more than 200 mg/dL in a nonstressed, ambulatory subject supports the diagnosis of Diabetes Mellitus. Result Comment: [place] om Glucose Reference Range is dependent on time and content of last meal. Glucose of more than 200 mg/dL in a nonstressed, ambulatory subject supports the diagnosis of Diabetes Mellitus. ADA recommended reference range Performed By: #### C BC, BMP #### [place] [address] [place] Hematocrit [Volume Fraction] of Blood by Automated countOrdered By: Yogesh Becker on 10-23-2023 Hematocrit (Bld) [Volume fraction] 48.1 % Normal 38.8-50.0 [facility] Comment on above: Performed By: #### B MP, CBC #### [address] Hemoglobin [Mass/volume] in BloodOrdered By: Yogesh Becker on 10-23-2023 Hemoglobin (Bld) [Mass/Vol] 16.2 g/dL Normal 13.0-17.0 [facility] Comment on above: Performed By: #### B MP, CBC #### [address] Leukocytes [#/volume] correc charanjit for nucleated erythrocytes in Blood by Automated counOrdered By: Yogesh Becker on 10-23-2023 WBC corrected for nucl RBC Auto (Bld) [#/Vol] 4.9 10*3/uL 4.1-10.5 [facility] Leukocytes [#/volume] in Blo od by Automated countOrdered By: Yogesh Becker on 10-23-2023 WBC (Bld) [#/Vol] 4.9 10*3/uL Normal 4.1-10.5 [facility] Comment on above: Performed By: #### B MP, CBC #### [address] Lymphocytes [#/volume] in Bl ood by Automated countOrdered By: Yogesh Becker on 10-23-2023 Lymphocytes (Bld) [#/Vol] 1.3 10*3/uL Normal 1.00-4.8 [facility] Comment on above: Performed By: #### B MP, CBC #### [place] [address] [place] Lymphocytes/100 leukocytes i n Blood by Automated countOrdered By: Yogesh Becker on 10-23-2023 Lymphocytes/100 WBC (Bld) 26.8 % Normal . [facility] Comment on above: Performed By: #### B MP, CBC #### [place] [address] [place] MCH [Entitic mass] by Automa charanjit countOrdered By: Yogesh Becker on 10-23-2023 MCH (RBC) [Entitic mass] 32.4 pg Normal 27.5-35.2 [facility] Comment on above: Performed By: #### B MP, CBC #### [facility] [address] [place] [address] MCHC Auto (RBC) [Mass/Vol]Or dered By: Yogesh Becker on 10-23-2023 MCHC (RBC) [Mass/Vol] 33.8 g/dL 32.5-35.6 [facility] MCV [Entitic volume] by Auto mated countOrdered By: Yogesh Becker on 10-23-2023 MCV (RBC) [Entitic vol] 96.0 fL Normal 83.5-101 [facility] Comment on above: Performed By: #### B MP, CBC #### [facility] [address] [place] [address] Neutrophils [#/volume] in Bl ood by Automated countOrdered By: Yogesh Becker on 10-23-2023 Neutrophils (Bld) [#/Vol] 2.9 10*3/uL Normal 1.8-7.7 [facility] Comment on above: Performed By: #### B MP, CBC #### [facility] [address] [place] [address] No Panel InformationOrdered By: Yogesh Becker on 10-23-2023 Estimated GFR (CKD-EPI) > 60.0 mL/Min [facility] Creatinine Clearance (Chem N/A [facility] Nucleated erythrocytes [Pres ence] in Blood by Automated countOrdered By: Yogesh Becker on 10-23-2023 Nucleated RBC Auto Ql (Bld) 0.1 /100{WBC} 0-0.5 [facility] Platelet mean volume [Entiti c volume] in Blood by Automated countOrdered By: Yogesh Becker on 10-23-2023 Platelet mean volume (Bld) [Entitic vol] 8.4 fL Normal 6.6-10.1 [facility] Comment on above: Performed By: #### B MP, CBC #### [facility] [address] [place] [address] Platelets [#/volume] in Bloo d by Automated countOrdered By: Yogesh Becker on 10-23-2023 Platelets (Bld) [#/Vol] 173 10*3/uL Normal 150-450 [facility] Comment on above: Performed By: #### B MP, CBC #### [facility] [address] [place] [address] [place] Potassium [Moles/volume] in Serum or PlasmaOrdered By: Yogesh Becker on 10-23-2023 Potassium [Moles/Vol] 4.5 mmol/L Normal 3.5-5.1 [facility] Comment on above: Performed By: #### C BC, BMP #### [address] Serum or plasma anion gap de terminationOrdered By: Yogesh Becker on 10-23-2023 Anion gap [Moles/Vol] 9.7 mmol/L Normal 6.0-15.0 [facility] Comment on above: Performed By: #### C BC, BMP #### [facility] [address] [place] [address] [place] Sodium [Moles/volume] in Ser um or PlasmaOrdered By: Yogesh Becker on 10-23-2023 Sodium [Moles/Vol] 139 mmol/L Normal 136-145 [facility] Comment on above: Performed By: #### C BC, BMP #### [address] Urea nitrogen [Mass/volume] in Serum or PlasmaOrdered By: Yogesh Becker on 10-23-2023 Urea nitrogen [Mass/Vol] 18 mg/dL Normal 7-25 [facility] Comment on above: Performed By: #### C BC, BMP #### [address] Amphetamine Screen Ql (U)Ord ered By: Giuseppe Desouza on 10-02-2023 Amphetamines Ql (U) Negative Negative [facility] Barbiturates [Presence] in U rine by Screen methodOrdered By: Giuseppe Desouza on 10-02-2023 Barbiturates Screen Ql (U) Negative Negative [facility] Benzodiazepines Screen Ql (U )Ordered By: Giuseppe Desouza on 10-02-2023 Benzodiazepines Ql (U) Positive Negative [facility] Benzoylecgonine [Presence] i n Urine by Screen methodOrdered By: Giuseppe Desouza on 10-02-2023 Benzoylecgonine Screen Ql (U) Positive Negative [facility] Cannabinoids [Presence] in U rine by Screen methodOrdered By: Giuseppe Desouza on 10-02-2023 Cannabinoids Screen Ql (U) Positive Negative [facility] Comment on above: These are unconfirme d results and should not be used for legal purposes. Drug Cut-Off Concentration: AMPH 1000 ng/mL ZE 200 ng/mL DUANE 200 ng/mL COCM 300 ng/mL OP 300 ng/mL PCP 25 ng/mL THC 20 ng/mL Capillary blood glucose ezra urement by glucometer (mass/volume)Ordered By: Yogesh Becker on 10-02-2023 Glucose [Mass/Vol] 290 mg/dL Normal [facility] Comment on above: Random Glucose Refer ence Range is dependent on time and content of last meal. Glucose of more than 200 mg/dL in a nonstressed, ambulatory subject supports the diagnosis of Diabetes Mellitus. Result Comment: [place] om Glucose Reference Range is dependent on time and content of last meal. Glucose of more than 200 mg/dL in a nonstressed, ambulatory subject supports the diagnosis of Diabetes Mellitus. Performed By: #### C BC, BMP #### [address] Drug Screen,Urineon 10-02-20 Amphetamine Screen,Urine Negative Normal Negative [facility] Comment on above: Performed By: #### T SH3, [id number] #### [facility] [address] [place] [address] [place] #### METH #### [facility] , Barbiturate Screen,Urine Negative Normal Negative [facility] Comment on above: Performed By: #### T SH3, [id number] #### [facility] [address] [place] [address] [place] #### METH #### [facility] , Benzodiazepines Screen,Urine Positive High Negative [facility] Comment on above: Performed By: #### T SH3, [id number] #### [address] #### METH #### [facility] , Cannabinoid Screen,Urine Positive High Negative [facility] Comment on above: Result Comment: Thes e are unconfirmed results and should not be used for legal purposes. Drug Cut-Off Concentration: AMPH 1000 ng/mL ZE 200 ng/mL DUANE 200 ng/mL COCM 300 ng/mL OP 300 ng/mL PCP 25 ng/mL THC 20 ng/mL PERFORMED BY: [place] [address] PATHOLOGIST CUB REPORTER CLEVE CANDELARIA M.D. Performed By: #### T SH3, [id number] #### [address] #### METH #### [facility] , Cocaine Screen,Urine Positive High Negative [facility] Comment on above: Performed By: #### T SH3, [id number] #### [facility] [address] [place] [address] #### METH #### [facility] , Opiate Screen,Urine Negative Normal Negative [facility] Comment on above: Performed By: #### T SH3, [id number] #### [place] [address] [place] #### METH #### [facility] , Phencyclidine Screen,Urine Negative Normal Negative [facility] Comment on above: Performed By: #### T SH3, [id number] #### [place] [address] [place] #### METH #### [facility] , Glucose Poct Glucometerson 1 12-03-2022 Commemt1 Glu2: Cleaned Meter Normal [facility] Comment on above: Result Comment: PERF ORMED BY: [place] [address] PATHOLOGIST CUB REPORTER CLEVE CANDELARIA M.D. Performed By: #### C BC, BMP #### [facility] [address] [place] [address] No Panel InformationOrdered By: Yogesh Becker on 10-02-2023 Bedside Glucose Comment Glu2: cleaned meter [facility] Opiates [Presence] in Urine by Screen methodOrdered By: Giuseppe Desouza on 10-02-2023 Opiates Screen Ql (U) Negative Negative [facility] Phencyclidine Screen Ql (U)O rdered By: Giuseppe Desouza on 10-02-2023 Phencyclidine Ql (U) Negative Negative [facility] POC Glucose Randomon 023 Glucose [Mass/Vol] 246 mg/dL High 70-99 [facility] Comment on above: Performed By: #### C [id number] #### [address] [address] Glucose [Mass/Vol] 192 mg/dL High 70-99 [facility] Comment on above: Performed By: #### C [id number] #### [address] [address] Automated basophil %Ordered By: Ygoesh Becker on 09-23-2023 Basophils/100 WBC (Bld) 0.6 % Normal . [facility] Comment on above: Performed By: #### B MP, CBC #### [facility] [address] [place] [address] Automated basophil countOrde red By: Yogesh Becker on 09-23-2023 Basophils (Bld) [#/Vol] 0.1 10*3/uL Normal 0.0-0.2 [facility] Comment on above: Result Comment: PERF ORMED BY: [place] [address] PATHOLOGIST CUB REPORTER CLEVE CANDELARIA M.D. Performed By: #### B MP, CBC #### [facility] [address] [place] [address] Automated blood monocyte cou ntOrdered By: Yogesh Becker on 09-23-2023 Monocytes (Bld) [#/Vol] 0.6 10*3/uL Normal 0.0-0.8 [facility] Comment on above: Performed By: #### B MP, CBC #### [address] Automated eosinophil %Ordere d By: Yogesh Becker on 09-23-2023 Eosinophils/100 WBC (Bld) 0.1 % Normal . [facility] Comment on above: Performed By: #### B MP, CBC #### [address] Automated eosinophil countOr dered By: Yogesh Becker on 09-23-2023 Eosinophils (Bld) [#/Vol] 0.0 10*3/uL Normal 0.0-0.45 [facility] Comment on above: Performed By: #### B MP, CBC #### [address] Automated monocyte %Ordered By: Yogesh Becker on 09-23-2023 Monocytes/100 WBC (Bld) 4.6 % Normal . [facility] Comment on above: Performed By: #### B MP, CBC #### [address] Automated neutrophil %Ordere d By: Yogesh Becker on 09-23-2023 Neutrophils/100 WBC (Bld) 81.4 % Normal . [facility] Comment on above: Performed By: #### B MP, CBC #### [address] Basic Metabolic Panelon 08-28 GFR/1.73 sq M.predicted MDRD (S/P/Bld) [Vol rate/Area] mL/min/{1.73_m2} Normal [facility] Comment on above: Performed By: #### B MP, CBC #### [address] Calcium [Mass/volume] in Ser um or PlasmaOrdered By: Yogesh Becker on 09-23-2023 Calcium [Mass/Vol] 9.3 mg/dL Normal 8.6-10.3 [facility] Comment on above: Result Comment: PERF ORMED BY: [place] [address] PATHOLOGIST CUB REPORTER CLEVE CANDELARIA M.D. Performed By: #### B MP, CBC #### [address] Carbon dioxide, total [Moles /volume] in Serum or PlasmaOrdered By: Yogesh Becker on 09-23-2023 CO2 [Moles/Vol] 30.6 mmol/L Normal 21.0-31.0 [facility] Comment on above: Performed By: #### B MP, CBC #### [address] Chloride [Moles/volume] in S raffi or PlasmaOrdered By: Yogesh Becker on 09-23-2023 Chloride [Moles/Vol] 96 mmol/L Low 98-107 [facility] Comment on above: Performed By: #### B MP, CBC #### [address] Complete Blood Count Auto Di ffon 09-23-2023 Mean Corpuscular HGB Conc 33.4 g/dL Normal 32.5-35.6 [facility] Comment on above: Performed By: #### B MP, CBC #### [address] NRBC% 0.0 /100{WBC} Normal 0-0.5 [facility] Comment on above: Performed By: #### B MP, CBC #### [address] Creatinine [Mass/volume] in Serum or PlasmaOrdered By: Yogesh Becker on 09-23-2023 Creatinine [Mass/Vol] 1.01 mg/dL Normal 0.70-1.30 [facility] Comment on above: Performed By: #### B MP, CBC #### [facility] [address] [place] [id number] [facility] ECG 12 lead ECGon 09-23-2023 ECG 12 lead ECG [facility] [place] [address] [place] [address] Electrocardiograph Report Signed Patient: Koko Meier MR#: [id number] : 1960 Acct:[id number] Age/Sex: 62 / M ADM Date: 09/23/23 [...] axis shifted right Confirmed by JOSEY MATUTE [facility]WORK[facility]IRSTIE ([id number]) on 09/23/2023 10:29:43 PM Referred By: OLEGARIO BECKER Electronically Signed By:KIRSTIE CERVANTES MD [facility] Transcribed By: [facility] Signed By Barron Cervantes MD 09/23/232228 Normal [facility] Erythrocyte distribution wid th [Ratio] by Automated countOrdered By: Yogesh Becker on 09-23-2023 Erythrocyte distribution width (RBC) [Ratio] 13.9 % Normal 12.0-14.8 [facility] Comment on above: Performed By: #### B MP, CBC #### [facility] [address] Erythrocytes [#/volume] in B lood by Automated countOrdered By: Yogesh Becker on 09-23-2023 RBC (Bld) [#/Vol] 4.87 10*6/uL Normal 3.90-5.60 [facility] Comment on above: Performed By: #### B MP, CBC #### [facility] [address] [place] [address] [place] Glucose [Mass/volume] in Ser um or PlasmaOrdered By: Yogesh Becker on 09-23-2023 Glucose [Mass/Vol] 412 mg/dL High 70-100 [facility] Comment on above: ADA recommended refe rence rangeRandom Glucose Reference Range is dependent on time and content of last meal. Glucose of more than 200 mg/dL in a nonstressed, ambulatory subject supports the diagnosis of Diabetes Mellitus. Result Comment: [place] om Glucose Reference Range is dependent on time and content of last meal. Glucose of more than 200 mg/dL in a nonstressed, ambulatory subject supports the diagnosis of Diabetes Mellitus. ADA recommended reference range Performed By: #### B MP, CBC #### [facility] [address] [place] [address] Hematocrit [Volume Fraction] of Blood by Automated countOrdered By: Yogesh Becker on 09-23-2023 Hematocrit (Bld) [Volume fraction] 47.2 % Normal 38.8-50.0 [facility] Comment on above: Performed By: #### B MP, CBC #### [facility] [address] [place] [address] Hemoglobin [Mass/volume] in BloodOrdered By: Yogesh Becker on 09-23-2023 Hemoglobin (Bld) [Mass/Vol] 15.7 g/dL Normal 13.0-17.0 [facility] Comment on above: Performed By: #### B ALEJANDRO, CBC #### [address] Leukocytes [#/volume] correc charanjit for nucleated erythrocytes in Blood by Automated counOrdered By: Yogesh Becker on 09-23-2023 WBC corrected for nucl RBC Auto (Bld) [#/Vol] 12.4 10*3/uL 4.1-10.5 [facility] Leukocytes [#/volume] in Blo od by Automated countOrdered By: Yogesh Becker on 09-23-2023 WBC (Bld) [#/Vol] 12.4 10*3/uL High 4.1-10.5 [facility] Comment on above: Performed By: #### B MP, CBC #### [address] Lymphocytes [#/volume] in Bl ood by Automated countOrdered By: Yogesh Becker on 09-23-2023 Lymphocytes (Bld) [#/Vol] 1.7 10*3/uL Normal 1.00-4.8 [facility] Comment on above: Performed By: #### B MP, CBC #### [address] Lymphocytes/100 leukocytes i n Blood by Automated countOrdered By: Yogesh Becker on 09-23-2023 Lymphocytes/100 WBC (Bld) 13.3 % Normal . [facility] Comment on above: Performed By: #### B MP, CBC #### [address] MCH [Entitic mass] by Automa charanjit countOrdered By: Yogesh Becker on 09-23-2023 MCH (RBC) [Entitic mass] 32.3 pg Normal 27.5-35.2 [facility] Comment on above: Performed By: #### B MP, CBC #### [address] MCHC Auto (RBC) [Mass/Vol]Or dered By: Yogesh Becker on 09-23-2023 MCHC (RBC) [Mass/Vol] 33.4 g/dL 32.5-35.6 [facility] MCV [Entitic volume] by Auto mated countOrdered By: Yogesh Becker on 09-23-2023 MCV (RBC) [Entitic vol] 96.9 fL Normal 83.5-101 [facility] Comment on above: Performed By: #### B MP, CBC #### [place] [address] [place] Neutrophils [#/volume] in Bl ood by Automated countOrdered By: Yogesh Becker on 09-23-2023 Neutrophils (Bld) [#/Vol] 10.1 10*3/uL High 1.8-7.7 [facility] Comment on above: Performed By: #### B MP, CBC #### [address] No Panel InformationOrdered By: Yogesh Becker on 09-23-2023 Estimated GFR (CKD-EPI) > 60.0 mL/Min [facility] Creatinine Clearance (Chem N/A [facility] Nucleated erythrocytes [Pres ence] in Blood by Automated countOrdered By: Yogesh Becker on 09-23-2023 Nucleated RBC Auto Ql (Bld) 0.0 /100{WBC} 0-0.5 [facility] Platelet mean volume [Entiti c volume] in Blood by Automated countOrdered By: Yogesh Becker on 09-23-2023 Platelet mean volume (Bld) [Entitic vol] 8.3 fL Normal 6.6-10.1 [facility] Comment on above: Performed By: #### B MP, CBC #### [address] Platelets [#/volume] in Bloo d by Automated countOrdered By: Yogesh Becker on 09-23-2023 Platelets (Bld) [#/Vol] 203 10*3/uL Normal 150-450 [facility] Comment on above: Performed By: #### B MP, CBC #### [address] Potassium [Moles/volume] in Serum or PlasmaOrdered By: Yogesh Becker on 09-23-2023 Potassium [Moles/Vol] 4.7 mmol/L Normal 3.5-5.1 [facility] Comment on above: Performed By: #### B MP, CBC #### [address] Serum or plasma anion gap de terminationOrdered By: Yogesh Becker on 09-23-2023 Anion gap [Moles/Vol] 13.1 mmol/L Normal 6.0-15.0 [facility] Comment on above: Performed By: #### B MP, CBC #### [facility] [address] [place] [id number] [facility] Sodium [Moles/volume] in Ser um or PlasmaOrdered By: Yogesh Becker on 09-23-2023 Sodium [Moles/Vol] 135 mmol/L Low 136-145 [facility] Comment on above: Performed By: #### B MP, CBC #### [facility] [address] Urea nitrogen [Mass/volume] in Serum or PlasmaOrdered By: Yogesh Becker on 09-23-2023 Urea nitrogen [Mass/Vol] 28 mg/dL High 7-25 [facility] Comment on above: Performed By: #### B MP, CBC #### [facility] [address] ABDOMEN PELVIS W IV CONTR Ammon [...] spine 5V*on 07-27 XR cervical spine 5V* [facility] [place] [address] [place] [address] XRay Report Signed Patient: Koko Meier MR#: [id number] : 1960 Acct:[id number] Age/Sex: 62 / M ADM Date: 08/11/23 Loc: [place] Room: Type: [facility] Attending Dr: [...] 5:00 PM Dictation Location: RADIO-PC-12 Transcribed By: [facility] 08/11/231699 Dictated By: Koko Hernandez DO 08/11/231656 Signed By: 08/11/231699 Normal [facility] XR thoracic spine 3V*on 07-27 XR thoracic spine 3V* [place] [address] XRay Report Signed Patient: Koko Meier MR#: [id number] : 1960 Acct:[id number] Age/Sex: 62 / M ADM Date: 08/11/23 Loc: [place] Room: Type: [facility] Attending Dr: [...] 5:01 PM Dictation Location: RADIO-PC-12 Transcribed By: SHIRLEY 08/11/231700 Dictated By: Koko Hernandez DO 08/11/231699 Signed By: 08/11/231700 Normal [facility] XR lumbar spine 6V w bending on 08-01-2023 XR lumbar spine 6V w bending [facility] Main [address] [address] XRay Report Signed Patient: Koko Meier MR#: [id number] : 1960 Acct:[id number] Age/Sex: 62 / M ADM Date: 08/01/23 Loc: XD Room: Type: [facility] Attending Dr: Josh Melvin DO Copies [...] Monika Eastman M.D.08/01/2023 1:06 PM Dictation Location: [place] [address] Transcribed By: [facility] 08/01/23 1306 Dictated By: Monika Eastman MD 08/01/23 1210 Signed By: 08/01/23 1306 Normal [facility] A1C with Estimated Average G alice 04-21-2023 Glucose [Mass/Vol] 197 mg/dL Normal [facility] Comment on above: Result Comment: PERF ORMED BY: [facility] [address] [address] [address] PATHOLOGIST CUB REPORTER CLEVE CANDELARIA M.D. Performed By: #### C BC, BMP #### [facility] [address] [place] [address] [place] Alanine aminotransferase [En zymatic activity/volume] in Serum or PlasmaOrdered By: Josh Bunting on 04-21-2023 ALT [Catalytic activity/Vol] 19 U/L Normal 7-52 [facility] Comment on above: Order Comment: PT FA STED 12 HOURS Performed By: #### C BC, BMP #### [facility] [address] [place] [address] [place] Albumin [Mass/volume] in Ser um or Plasma by Bromocresol green (BCG) dye binding methoOrdered By: Josh Bunting on 04-21-2023 Albumin BCG dye [Mass/Vol] 4.2 g/dL 3.5-5.7 [facility] Alkaline phosphatase [Enzyma tic activity/volume] in Serum or PlasmaOrdered By: Josh Bunting on 04-21-2023 ALP [Catalytic activity/Vol] 67 U/L Normal 34-104 [facility] Comment on above: Order Comment: PT FA STED 12 HOURS Performed By: #### C BC, BMP #### [place] [address] [place] Aspartate aminotransferase [ Enzymatic activity/volume] in Serum or PlasmaOrdered By: Josh Bunting on 04-21-2023 AST [Catalytic activity/Vol] 16 U/L Normal 13-39 [facility] Comment on above: Order Comment: PT FA STED 12 HOURS Performed By: #### C BC, BMP #### [place] [address] [place] Automated basophil %Ordered By: Josh Bunting on 04-21-2023 Basophils/100 WBC (Bld) 0.9 % Normal . [facility] Comment on above: Performed By: #### C BC, BMP #### [place] [address] [place] Automated basophil countOrde red By: Josh Bunting on 04-21-2023 Basophils (Bld) [#/Vol] 0.1 10*3/uL Normal 0.0-0.2 [facility] Comment on above: Result Comment: PERF ORMED BY: [place] [address] PATHOLOGIST CUB REPORTER CLEVE CANDELARIA M.D. Performed By: #### C BC, BMP #### [address] Automated blood monocyte cou ntOrdered By: Josh Bunting on 04-21-2023 Monocytes (Bld) [#/Vol] 0.4 10*3/uL Normal 0.0-0.8 [facility] Comment on above: Performed By: #### C BC, BMP #### [address] Automated eosinophil %Ordere d By: Josh Bunting on 04-21-2023 Eosinophils/100 WBC (Bld) 2.1 % Normal . [facility] Comment on above: Performed By: #### C BC, BMP #### [address] Automated eosinophil countOr dered By: Josh Bunting on 04-21-2023 Eosinophils (Bld) [#/Vol] 0.2 10*3/uL Normal 0.0-0.45 [facility] Comment on above: Performed By: #### C AMAIRANI, BMP #### [address] Automated monocyte %Ordered By: Josh Bunting on 04-21-2023 Monocytes/100 WBC (Bld) 5.5 % Normal . [facility] Comment on above: Performed By: #### C BC, BMP #### [address] Automated neutrophil %Ordere d By: Josh Bunting on 04-21-2023 Neutrophils/100 WBC (Bld) 65.2 % Normal . [facility] Comment on above: Performed By: #### C BC, BMP #### [address] Bilirubin.total [Mass/volume ] in Serum or PlasmaOrdered By: Josh Bunting on 04-21-2023 Bilirubin [Mass/Vol] 0.4 mg/dL Normal 0.3-1.0 [facility] Comment on above: Order Comment: PT FA STED 12 HOURS Performed By: #### C BC, BMP #### [facility] [address] [place] [address] [place] Calcium [Mass/volume] in Ser um or PlasmaOrdered By: Josh Bunting on 04-21-2023 Calcium [Mass/Vol] 9.3 mg/dL Normal 8.6-10.3 [facility] Comment on above: Order Comment: PT FA STED 12 HOURS Performed By: #### C BC, BMP #### [facility] [address] [place] [address] [place] Carbon dioxide, total [Moles /volume] in Serum or PlasmaOrdered By: Josh Bunting on 04-21-2023 CO2 [Moles/Vol] 30.3 mmol/L Normal 21.0-31.0 [facility] Comment on above: Order Comment: PT FA STED 12 HOURS Performed By: #### C BC, BMP #### [facility] [address] [place] [address] [place] Chloride [Moles/volume] in S raffi or PlasmaOrdered By: Josh Bunting on 04-21-2023 Chloride [Moles/Vol] 99 mmol/L Normal 98-107 [facility] Comment on above: Order Comment: PT FA STED 12 HOURS Performed By: #### C BC, BMP #### [facility] [address] [place] [id number] [place] Cholesterol [Mass/volume] in Serum or PlasmaOrdered By: Josh Bunting on 04-21-2023 Cholesterol [Mass/Vol] 300 mg/dL High 140-200 [facility] Comment on above: Chol less than 200 m g/dl low riskChol 201-239 mg/dl borderline riskChol 240 mg/dl and greater high risk Order Comment: PT FA STED 12 HOURS Result Comment: Chol less than 200 mg/dl low risk Chol 201-239 mg/dl borderline risk Chol 240 mg/dl and greater high risk Performed By: #### C BC, BMP #### [facility] [address] [place], [place] [id number] [place] Cholesterol in LDL Calc [Mas s/Vol]Ordered By: Josh Melvin on 04-21-2023 Cholesterol in LDL [Mass/Vol] 207 mg/dL 0-100 [facility] Comment on above: LDL ATP III CLASSIFI CATIONLDL less than 100 mg/dL OptimalLDL 100-129 mg/dL Near or above optimalLDL 130-159 mg/dL Borderline highLDL 160-189 mg/dL HighLDL greater than 189 mg/dL Very high Cholesterol in VLDL Calc [Ma ss/Vol]Ordered By: Josh Melvin on 04-21-2023 Cholesterol in VLDL [Mass/Vol] 32 mg/dL [facility] Complete Blood Count Auto Di ffon 04-21-2023 Mean Corpuscular HGB Conc 34.2 g/dL Normal 32.5-35.6 [facility] Comment on above: Performed By: #### C AMAIRANI, BMP #### [facility] [address] NRBC% 0.0 /100{WBC} Normal 0-0.5 [facility] Comment on above: Performed By: #### C AMAIRANI, BMP #### [facility] [address] Comprehensive Metabolic Pane brennen 04-21-2023 Albumin [Mass/Vol] 4.2 g/dL Normal 3.5-5.7 [facility] Comment on above: Order Comment: PT FA STED 12 HOURS Performed By: #### C AMAIRANI, BMP #### [facility] [address] [place] [address] [place] GFR/1.73 sq M.predicted MDRD (S/P/Bld) [Vol rate/Area] mL/min/{1.73_m2} Normal [facility] Comment on above: Order Comment: PT FA STED 12 HOURS Performed By: #### C AMAIRANI, BMP #### [facility] [address] [place] [address] [place] Creatinine [Mass/volume] in Serum or PlasmaOrdered By: Josh Melvin on 04-21-2023 Creatinine [Mass/Vol] 0.90 mg/dL Normal 0.70-1.30 [facility] Comment on above: Order Comment: PT FA STED 12 HOURS Performed By: #### C AMAIRANI, BMP #### [facility] [address] Erythrocyte distribution wid th [Ratio] by Automated countOrdered By: Josh Melvin on 04-21-2023 Erythrocyte distribution width (RBC) [Ratio] 15.0 % High 12.0-14.8 [facility] Comment on above: Performed By: #### C AMAIRANI, BMP #### [facility] [address] Erythrocytes [#/volume] in B lood by Automated countOrdered By: Josh Melvin on 04-21-2023 RBC (Bld) [#/Vol] 5.13 10*6/uL Normal 3.90-5.60 [facility] Comment on above: Performed By: #### C AMAIRANI, BMP #### [address] Glucose [Mass/volume] in Ser um or PlasmaOrdered By: Josh Melvin on 04-21-2023 Glucose [Mass/Vol] 149 mg/dL High 70-100 [facility] Comment on above: ADA recommended refe rence rangeRandom Glucose Reference Range is dependent on time and content of last meal. Glucose of more than 200 mg/dL in a nonstressed, ambulatory subject supports the diagnosis of Diabetes Mellitus. Order Comment: PT FA STED 12 HOURS Result Comment: [place] om Glucose Reference Range is dependent on time and content of last meal. Glucose of more than 200 mg/dL in a nonstressed, ambulatory subject supports the diagnosis of Diabetes Mellitus. ADA recommended reference range Performed By: #### C AMAIRANI, BMP #### [facility] [address] Glucose mean value [Mass/vol ume] in Blood Estimated from glycated hemoglobinOrdered By: Josh Melvin on 04-21-2023 Average glucose Estimated from glycated hemoglobin (Bld) [Mass/Vol] 197 mg/dL [facility] Hematocrit [Volume Fraction] of Blood by Automated countOrdered By: Josh Melvin on 04-21-2023 Hematocrit (Bld) [Volume fraction] 48.8 % Normal 38.8-50.0 [facility] Comment on above: Performed By: #### C AMAIRANI, BMP #### [facility] [address] [place] [address] Hemoglobin A1c percentageOrd ered By: Josh Melvin on 04-21-2023 HbA1c (Bld) [Mass fraction] 8.5 % High 4.3-5.6 [facility] Comment on above: Increased risk for d iabetes: 5.7 - 6.4diabetes: >6.4glycemic control for adults with diabetes: <7.0 Result Comment: Incr eased risk for diabetes: 5.7 - 6.4 diabetes: >6.4 glycemic control for adults with diabetes: <7.0 Performed By: #### C AMAIRANI, BMP #### [address] Hemoglobin [Mass/volume] in BloodOrdered By: Josh Melvin on 04-21-2023 Hemoglobin (Bld) [Mass/Vol] 16.7 g/dL Normal 13.0-17.0 [facility] Comment on above: Performed By: #### C AMAIRANI, BMP #### [facility] [address] [place] [address] Leukocytes [#/volume] correc charanjit for nucleated erythrocytes in Blood by Automated counOrdered By: Josh Melvin on 04-21-2023 WBC corrected for nucl RBC Auto (Bld) [#/Vol] 7.1 10*3/uL 4.1-10.5 [facility] Leukocytes [#/volume] in Blo od by Automated countOrdered By: Josh Melvin on 04-21-2023 WBC (Bld) [#/Vol] 7.1 10*3/uL Normal 4.1-10.5 [facility] Comment on above: Performed By: #### C AMAIRANI, BMP #### [address] Lipid Panelon 04-21-2023 LDL Cholesterol,Calculated 207 mg/dL High 0-100 [facility] Comment on above: Order Comment: PT FA STED 12 HOURS Result Comment: LDL ATP III CLASSIFICATION LDL less than 100 mg/dL Optimal LDL 100-129 mg/dL Near or above optimal LDL 130-159 mg/dL Borderline high LDL 160-189 mg/dL High LDL greater than 189 mg/dL Very high Performed By: #### C AMAIRANI, BMP #### [address] Triglyceride w/Reflex 162 mg/dL High 0-149 [facility] Comment on above: Order Comment: PT FA STED 12 HOURS Result Comment: TRIG ATP III CLASSIFICATION TRIG less than 150 mg/dL Normal TRIG 150-199 mg/dL Borderline high TRIG 200-500 mg/dL High TRIG greater than 500 mg/dL Very high Standard traceable to the Center for Disease Conrtrol and Prevention (CDC) test method. Performed By: #### C AMAIRANI, BMP #### [address] VLDL CHOLESTEROL 32 mg/dL Normal [facility] Comment on above: Order Comment: PT FA STED 12 HOURS Performed By: #### C AMAIRANI, BMP #### [address] Lymphocytes [#/volume] in Bl ood by Automated countOrdered By: Josh Melvin on 04-21-2023 Lymphocytes (Bld) [#/Vol] 1.9 10*3/uL Normal 1.00-4.8 [facility] Comment on above: Performed By: #### C AMAIRANI, BMP #### [place] [address] [place] Lymphocytes/100 leukocytes i n Blood by Automated countOrdered By: Josh Melvin on 04-21-2023 Lymphocytes/100 WBC (Bld) 26.3 % Normal . [facility] Comment on above: Performed By: #### C AMAIRANI, BMP #### [place] [address] [place] MCH [Entitic mass] by Automa charanjit countOrdered By: Josh Melvin on 04-21-2023 MCH (RBC) [Entitic mass] 32.5 pg Normal 27.5-35.2 [facility] Comment on above: Performed By: #### C AMAIRANI, BMP #### [address] [address] [place] MCHC Auto (RBC) [Mass/Vol]Or dered By: Josh Bunting on 04-21-2023 MCHC (RBC) [Mass/Vol] 34.2 g/dL 32.5-35.6 [facility] MCV [Entitic volume] by Auto mated countOrdered By: Josh Bunting on 04-21-2023 MCV (RBC) [Entitic vol] 95.2 fL Normal 83.5-101 [facility] Comment on above: Performed By: #### C BC, BMP #### [facility] [address] [place] [address] Neutrophils [#/volume] in Bl ood by Automated countOrdered By: Josh Bunting on 04-21-2023 Neutrophils (Bld) [#/Vol] 4.6 10*3/uL Normal 1.8-7.7 [facility] Comment on above: Performed By: #### C BC, BMP #### [facility] [address] [place] [address] No Panel InformationOrdered By: Josh Bunting on 04-21-2023 Estimated GFR (CKD-EPI) > 60.0 mL/Min [facility] Creatinine Clearance (Chem N/A [facility] Nucleated erythrocytes [Pres ence] in Blood by Automated countOrdered By: Josh Bunting on 04-21-2023 Nucleated RBC Auto Ql (Bld) 0.0 /100{WBC} 0-0.5 [facility] Platelet mean volume [Entiti c volume] in Blood by Automated countOrdered By: Josh Bunting on 04-21-2023 Platelet mean volume (Bld) [Entitic vol] 8.6 fL Normal 6.6-10.1 [facility] Comment on above: Performed By: #### C BC, BMP #### [facility] [address] [place] [address] Platelets [#/volume] in Bloo d by Automated countOrdered By: Josh Bunting on 04-21-2023 Platelets (Bld) [#/Vol] 200 10*3/uL Normal 150-450 [facility] Comment on above: Performed By: #### C BC, BMP #### [address] Potassium [Moles/volume] in Serum or PlasmaOrdered By: Josh Bunting on 04-21-2023 Potassium [Moles/Vol] 4.6 mmol/L Normal 3.5-5.1 [facility] Comment on above: Order Comment: PT FA STED 12 HOURS Performed By: #### C BC, BMP #### [address] Protein [Mass/volume] in Ser um or PlasmaOrdered By: Josh Bunting on 04-21-2023 Protein [Mass/Vol] 6.4 g/dL Normal 6.4-8.9 [facility] Comment on above: Order Comment: PT FA STED 12 HOURS Performed By: #### C BC, BMP #### [address] Serum globulin measurement b y calculation (mass/volume)Ordered By: Josh Bunting on 04-21-2023 Globulin (S) [Mass/Vol] 2.2 g/dL [facility] Comment on above: Order Comment: PT FA STED 12 HOURS Performed By: #### C BC, BMP #### [address] Serum or plasma albumin/glob ulin mass ratioOrdered By: Josh Bunting on 04-21-2023 Albumin/Globulin [Mass ratio] 1.9 {ratio} [facility] Comment on above: Order Comment: PT FA STED 12 HOURS Performed By: #### C BC, BMP #### [address] Serum or plasma anion gap de terminationOrdered By: Josh Bunting on 04-21-2023 Anion gap [Moles/Vol] 11.3 mmol/L Normal 6.0-15.0 [facility] Comment on above: Order Comment: PT FA STED 12 HOURS Performed By: #### C BC, BMP #### [address] Serum or plasma high density lipoprotein (HDL) cholesterol measurementOrdered By: Josh Melvin on 04-21-2023 Cholesterol in HDL [Mass/Vol] 61 mg/dL Normal 23-92 [facility] Comment on above: HDL CHOL ATP-III CLA SSIFICATION Cardiovascular RiskHDL > or equal to 60 mg/dL LOWHDL < 40 mg/dL HIGH Order Comment: PT FA STED 12 HOURS Result Comment: HDL CHOL ATP-III CLASSIFICATION Cardiovascular Risk HDL > or equal to 60 mg/dL LOW HDL < 40 mg/dL HIGH Performed By: #### C BC, BMP #### [facility] [address] Serum or plasma total choles terol/high density lipoprotein (HDL) cholesterol mass ratOrdered By: Josh Melvin on 04-21-2023 Cholesterol.total/Chol esterol in HDL [Mass ratio] 4.9 {ratio} Normal <5.0 [facility] Comment on above: Order Comment: PT FA STED 12 HOURS Result Comment: PERF ORMED BY: [place] [address] PATHOLOGIST CUB REPORTER CLEVE CANDELARIA M.D. Performed By: #### C BC, BMP #### [facility] [address] [place] [address] Sodium [Moles/volume] in Ser um or PlasmaOrdered By: Josh Melvin on 04-21-2023 Sodium [Moles/Vol] 136 mmol/L Normal 136-145 [facility] Comment on above: Order Comment: PT FA STED 12 HOURS Performed By: #### C BC, BMP #### [facility] [address] [place] [address] [place] Triglyceride [Mass/volume] i n Serum or PlasmaOrdered By: Jsoh Melvin on 04-21-2023 Triglyceride [Mass/Vol] 162 mg/dL 0-149 [facility] Comment on above: TRIG ATP III CLASSIF ICATIONTRIG less than 150 mg/dL NormalTRIG 150-199 mg/dL Borderline highTRIG 200-500 mg/dL High TRIG greater than 500 mg/dL Very highStandard traceable to the Center for Disease Conrtrol and Prevention (CDC) test method. Urea nitrogen [Mass/volume] in Serum or PlasmaOrdered By: Josh Melvin on 04-21-2023 Urea nitrogen [Mass/Vol] 25 mg/dL Normal 7-25 [facility] Comment on above: Order Comment: PT FA STED 12 HOURS Performed By: #### C AMAIRANI, BMP #### [address] Phi 04-10-2023 CNPN Telephone (OTOL[facility]) NIYAH MEIER ([id number]) 1960 M Date Time Provider Department 04/10/23 DONNY PERALTA [facility] During your visit today, we recorded the [...] Encounter Status:Closed by KIMBERLI COUCH on 04/15/23 [facility] 03-26-2023 [facility] Office Visit (OTOL[facility] ) NIYAH MEIER ([id number]) 1960 M Date Time Provider Department 03/26/23 11:20 AM DONNY PERALTA [facility] During your visit today, we recorded the following information about you: Pulse Respiration 88/minute 17/minute Donny Peralta APRN.FRAME HAND 03/26/2023 4:15 PM Signed Mr. Meier [...] 2 to 3 weeks time. Donny Peralta APRN.FRAME HAND CC: Josh Melvin DO Referring Provider: JOSH MELVIN [[id number]] Allergies As of Date: 03/26/2023 (No Known Allergies) Date Reviewed: 03/26/2023 Reviewed by: Olive Hui LPN - Fully Assessed Reason for Visit: Mouth lesion on left side [Other] Primary Visit Diagnosis:Laryngeal candidiasis [B37.89] Other Visit Diagnoses:Glossitis [K14.0] Oral candidiasis [B37.0] Hoarseness of voice [R49.0] History of alcohol abuse [F10.11] Order(s):COMP METABOLIC PANEL [SQCMP] Order #: [id number] FUTURE clotrimazole (MYCELEX) 10 mg trocheUse 1 Bud as instructed four times daily for 14 days.Disp: 56 tabletRfl: 0 Prescriptions as of 03/26/2023 - busPIRone HCl 30 mg tablet TAKE 1 TABLET BY MOUTH THREE TIMES DAILY FOR ANXIETY - celec (more content not included)... Normal [facility] Comprehensive metabolic 2000 panelon 03-26-2023 Albumin [Mass/Vol] 4.4 g/dL Normal 3.9-4.9 [facility] Comment on above: Order Comment: Speci men Type: BLOOD SPECIMEN Ordering Facility: [facility] Address: [address] [place] [id number] Performed By: #### 2 4323-8 #### [facility] CLIA [id number] [address] [place] [address] [place] ALP [Catalytic activity/Vol] 90 U/L Normal 38-113 [facility] Comment on above: Order Comment: Speci men Type: BLOOD SPECIMEN Ordering Facility: [facility] Address: [address] Performed By: #### 2 4323-8 #### [facility] CLIA [id number] [address] [place] [address] [place] ALT [Catalytic activity/Vol] 22 U/L Normal 10-54 [facility] Comment on above: Order Comment: Speci men Type: BLOOD SPECIMEN Ordering Facility: [facility] Address: [address] Performed By: #### 2 4323-8 #### [facility] CLIA [id number] [address] [place] [address] [place] Anion gap [Moles/Vol] 11 mmol/L Normal 9-18 [facility] Comment on above: Order Comment: Speci men Type: BLOOD SPECIMEN Ordering Facility: [facility] Address: [address] [place], [place] [address] Performed By: #### 2 4323-8 #### [facility] CLIA [id number] [address] [place] [address] [place] AST [Catalytic activity/Vol] 23 U/L Normal 14-40 [facility] Comment on above: Order Comment: Speci men Type: BLOOD SPECIMEN Ordering Facility: [facility] Address: [address] [place] [address] Performed By: #### 2 4323-8 #### [facility] CLIA [id number] [address] [place] [address] [place] Bilirubin [Mass/Vol] 0.4 mg/dL Normal 0.2-1.3 [facility] Comment on above: Order Comment: Speci men Type: BLOOD SPECIMEN Ordering Facility: [facility] Address: [address] Performed By: #### 2 4323-8 #### [facility] CLIA [id number] [address] [place] [id number] [place] Calcium [Mass/Vol] 9.6 mg/dL Normal 8.5-10.2 [facility] Comment on above: Order Comment: Speci men Type: BLOOD SPECIMEN Ordering Facility: [facility] Address: [address] Performed By: #### 2 4323-8 #### [facility] CLIA [id number] [address] [place] [address] [place] Chloride [Moles/Vol] 97 mmol/L Normal 97-105 [facility] Comment on above: Order Comment: Speci men Type: BLOOD SPECIMEN Ordering Facility: [facility] Address: [address] Performed By: #### 2 4323-8 #### [facility] CLIA [id number] [address] [place] [address] [place] CO2 [Moles/Vol] 27 mmol/L Normal 22-30 [facility] Comment on above: Order Comment: Speci men Type: BLOOD SPECIMEN Ordering Facility: [facility] Address: [address] [place], [place] Performed By: #### 2 4323-8 #### [facility] CLIA [id number] [address] [place] [id number] [place] Creatinine [Mass/Vol] 0.99 mg/dL Normal 0.73-1.22 [facility] Comment on above: Order Comment: Speci men Type: BLOOD SPECIMEN Ordering Facility: [facility] Address: [address] Performed By: #### 2 4323-8 #### [facility] CLIA [id number] [address] OF [facility] ESTIMATED GLOMERULAR FILTRATION RATE 85 mL/min/1.73m??? Normal >=60 [facility] Comment on above: Order Comment: Ilana guillen Type: BLOOD SPECIMEN Ordering Facility: [facility] Address: [address] [place] [address] Result Comment: Neha mated Glomerular Filtration Rate [...] GFR. Performed By: #### 2 4323-8 #### [facility] CLIA [id number] [address] [place] [address] [place] Glucose [Mass/Vol] 85 mg/dL Normal 74-99 [facility] Comment on above: Order Comment: Ilana guillen Type: BLOOD SPECIMEN Ordering Facility: [facility] Address: [address] [place] [address] Result Comment: The [place] [employer] (ADA) provides guidance for cutoff [...] Standards of Medical Care in Diabetes 2016, [place] [employer]. Diabetes Care. 2016.39(Suppl 1). Performed By: #### 2 4323-8 #### [facility] CLIA [id number] [address] [place] [address] [place] Potassium [Moles/Vol] 4.5 mmol/L Normal 3.7-5.1 [facility] Comment on above: Order Comment: Speci men Type: BLOOD SPECIMEN Ordering Facility: [facility] Address: [address] [place] [address] Performed By: #### 2 4323-8 #### [facility] CLIA [id number] [address] [place] [address] [place] Protein [Mass/Vol] 7.0 g/dL Normal 6.3-8.0 [facility] Comment on above: Order Comment: Speci men Type: BLOOD SPECIMEN Ordering Facility: [facility] Address: [address] [place] [address] Performed By: #### 2 4323-8 #### [facility] CLIA [id number] [address] [place] [address] [place] Sodium [Moles/Vol] 135 mmol/L Low 136-144 [facility] Comment on above: Order Comment: Speci men Type: BLOOD SPECIMEN Ordering Facility: [facility] Address: [address] [place], [place] [address] Performed By: #### 2 4323-8 #### [facility] CLIA [id number] [address] [place] [address] [place] Urea nitrogen [Mass/Vol] 25 mg/dL High 9-24 [facility] Comment on above: Order Comment: Speci men Type: BLOOD SPECIMEN Ordering Facility: [facility] Address: [address] [place], [place] [address] Performed By: #### 2 4323-8 #### [facility] CLIA [id number] [address] [place] [address] [place] Body fluid albumin measureme nt (mass/volume)Ordered By: Josh Melvin on 09-30-2022 Albumin (Body fld) [Mass/Vol] 3.6 g/dL 3.2-5.5 [facility] Cholesterol [Mass/volume] in Serum or PlasmaOrdered By: Josh Melvin on 09-30-2022 Cholesterol [Mass/Vol] 154 mg/dL 140-200 [facility] Comment on above: Chol less than 200 m g/dl low riskChol 201-239 mg/dl borderline riskChol 240 mg/dl and greater high risk Cholesterol in LDL Calc [Mas s/Vol]Ordered By: Josh Melvin on 09-30-2022 Cholesterol in LDL [Mass/Vol] 93 mg/dL 0-100 [facility] Comment on above: LDL ATP III CLASSIFI CATIONLDL less than 100 mg/dL OptimalLDL 100-129 mg/dL Near or above optimalLDL 130-159 mg/dL Borderline highLDL 160-189 mg/dL HighLDL greater than 189 mg/dL Very high Cholesterol in VLDL Calc [Ma ss/Vol]Ordered By: Josh Melvin on 09-30-2022 Cholesterol in VLDL [Mass/Vol] 17 mg/dL [facility] Creatinine and Glomerular fi ltration rate.predicted panel (S/P/Bld)Ordered By: Josh Melvin on 09-30-2022 Creatinine [Mass/Vol] 0.89 mg/dL 0.64-1.27 [facility] Estimated glomerular filtrat ion rate (GFR) non- AmericanOrdered By: Josh Melvin on 09-30-2022 GFR/1.73 sq M.predicted among non-blacks MDRD (S/P/Bld) [Vol rate/Area] > 60 mL/Min [facility] Globulin Calc (S) [Mass/Vol] Ordered By: Josh Melvin on 09-30-2022 Globulin (S) [Mass/Vol] 3.1 g/dL [facility] Glucose mean value [Mass/vol ume] in Blood Estimated from glycated hemoglobinOrdered By: Josh Melvin on 09-30-2022 Average glucose Estimated from glycated hemoglobin (Bld) [Mass/Vol] 180 mg/dL [facility] Hemoglobin A1c percentageOrd ered By: Josh Melvin on 09-30-2022 HbA1c (Bld) [Mass fraction] 7.9 % 4.3-5.6 [facility] Comment on above: Increased risk for d iabetes: 5.7 - 6.4diabetes: >6.4glycemic control for adults with diabetes: <7.0 No Panel InformationOrdered By: Josh Melvin on 09-30-2022 Estimated GFR () > 60 mL/Min [facility] Comment on above: GFR estimated refere nce range: According to KDOQI guidelines, <60 ml/min/1.73m2 is sufficient to diagnose a patient with chronic kidney disease. Pharmacy Creatinine Clearance (Chem N/A [facility] Protein [Mass/volume] in Ser um or PlasmaOrdered By: Josh Melvin on 09-30-2022 Protein [Mass/Vol] 6.7 g/dL 6.1-7.9 [facility] Serum or plasma alanine cullen otransferase measurement without P-5'-P (enzymatic activiOrdered By: Josh Melvin on 09-30-2022 ALT No additional P-5'-P [Catalytic activity/Vol] 19 U/L 10-60 [facility] Serum or plasma albumin/glob ulin mass ratioOrdered By: Josh Melvin on 09-30-2022 Albumin/Globulin [Mass ratio] 1.2 {ratio} [facility] Serum or plasma alkaline juliette sphatase measurement (enzymatic activity/volume)Ordered By: Josh Melvin on 09-30-2022 ALP [Catalytic activity/Vol] 78 U/L 32-92 [facility] Serum or plasma anion gap de terminationOrdered By: Josh Melvin on 09-30-2022 Anion gap [Moles/Vol] 19.0 mmol/L 6.0-15.0 [facility] Serum or plasma aspartate am inotransferase measurement (enzymatic activity/volume)Ordered By: Josh Melvin on 09-30-2022 AST [Catalytic activity/Vol] 17 U/L 10-42 [facility] Serum or plasma calcium ezra urement (mass/volume)Ordered By: Josh Melvin on 09-30-2022 Calcium [Mass/Vol] 9.6 mg/dL 8.2-10.2 [facility] Serum or plasma chloride brenda surement (moles/volume)Ordered By: Josh Melvin on 09-30-2022 Chloride [Moles/Vol] 94 mmol/L 95-114 [facility] Serum or plasma glucose ezra urement (mass/volume)Ordered By: Josh Melvin on 09-30-2022 Glucose [Mass/Vol] 149 mg/dL 70-100 [facility] Comment on above: ADA recommended refe rence rangeRandom Glucose Reference Range is dependent on time and content of last meal. Glucose of more than 200 mg/dL in a nonstressed, ambulatory subject supports the diagnosis of Diabetes Mellitus. Serum or plasma high density lipoprotein (HDL) cholesterol measurementOrdered By: Josh Melvin on 09-30-2022 Cholesterol in HDL [Mass/Vol] 44 mg/dL 29-71 [facility] Comment on above: HDL CHOL ATP-III CLA SSIFICATION Cardiovascular RiskHDL > or equal to 60 mg/dL LOWHDL < 40 mg/dL HIGH Serum or plasma potassium me asurement (moles/volume)Ordered By: Josh Melvin on 09-30-2022 Potassium [Moles/Vol] 4.9 mmol/L 3.5-5.1 [facility] Serum or plasma sodium measu rement (moles/volume)Ordered By: Josh Melvin on 09-30-2022 Sodium [Moles/Vol] 137 mmol/L 136-146 [facility] Serum or plasma total biliru bin measurement (mass/volume)Ordered By: Josh Melvin on 09-30-2022 Bilirubin [Mass/Vol] 0.7 mg/dL 0.3-1.2 [facility] Serum or plasma total carbon dioxide measurement (moles/volume)Ordered By: Josh Melvin on 09-30-2022 CO2 [Moles/Vol] 28.9 mmol/L 22.0-30.0 [facility] Serum or plasma total choles terol/high density lipoprotein (HDL) cholesterol mass ratOrdered By: Josh Melvin on 09-30-2022 Cholesterol.total/Chol esterol in HDL [Mass ratio] 3.5 {ratio} <5.0 [facility] Serum or plasma urea nitroge n measurement (mass/volume)Ordered By: Josh Melvin on 09-30-2022 Urea nitrogen [Mass/Vol] 19 mg/dL 07-19 [facility] Triglyceride [Mass/volume] i n Serum or PlasmaOrdered By: Josh Melvin on 09-30-2022 Triglyceride [Mass/Vol] 86 mg/dL 35-149 [facility] Comment on above: TRIG ATP III CLASSIF ICATIONTRIG less than 150 mg/dL NormalTRIG 150-199 mg/dL Borderline highTRIG 200-500 mg/dL High TRIG greater than 500 mg/dL Very highStandard traceable to the Center for Disease Conrtrol and Prevention (CDC) test method. IntraOperative Documentson 0 04-25-2021 IntraOperative Documents [id number] Normal [facility] Main OR Intraoperative Recor don 04-25-2021 Main OR Intraoperative Record IntraOp Document Type FT Summary Primary Physician: Kwame Yang DO Finalized Date/Time: 04/25/21 16:46:35 Pt. Name: KOKO MEIER/Sex: 1960 Male Med Rec #: [id number] Physician: Kwame Yang DO Financial #: [id number] Pt. Type: I Room/Bed: [place] [address] Admit/Disch: 04/18/21 08:03:48 - 04/19/21 13:50:00 Institution: [...] E Role Performed Anesthesiologist Surgeon - Primary [employer]LEVARD GLASSWARE REPLACER/SA Transportation Technician Time In 04/18/21 10:01:00 04/18/21 10:01:00 04/18/21 10:01:00 Time Out 04/18/21 12:40:00 04/18/21 12:40:00 04/18/21 12:40:00 Procedure SHOULDER TOTAL SHOULDER TOTAL SHOULDER TOTAL ARTHROPLASTY(Right) ARTHROPLASTY(Right) ARTHROPLASTY(Right) Comments supervised by Dr. Linton Last Modified By: Kasi KOO, Nandini Villaseñor RN, Nandini Villaseñor RN, Nandini Chavarria 04/18/21 12:41:34 04/18/21 12:41:34 04/18/21 12:41:34 Entry 4 Entry 5 Entry 6 Case Attendee Kasi KOO, Nandini Goldberg [employer] REPLACER, Christiano Ballard [employer]LEVARD GLASSWARE REPLACER, FA, Windy K Role Performed Farebox Repairer - Primary Scrub - Primary Staff - Other Time In 04/18/21 10:01:00 04/18/21 10:01:00 04/18/21 10:01:00 Time Out 04/18/21 12:40:00 04/18/21 12:08:00 04/18/21 12:40:00 Procedure SHOULDER TOTAL SHOULDER TOTAL SHOULDER TOTAL ARTHROPLASTY(Right) ARTHROPLASTY(Right) ARTHROPLASTY(Right) Comments Last Modified By: Kasi KOO, Nandini Villaseñor RN, Nandini Villaseñor RN, Nandini Chavarria 04/18/21 12:41:34 04/18/21 12:41:34 04/18/21 12:41:34 Entry 7 Case Attendee Shona [employer]LEVARD GL[employer]WARE REPLACER, Alvino Cornejo Role Performed Staff - Other [...] Yang DO, Given Jimmy Head CRNA, Bishop [employer]LEV[employer]WARE REPLACER, Ailyn Hankins, Kasi KOO, Yusuf Garner [employer]OULEVARD GLASSWARE REPLACER, Elio Burnham [employer]OULEVARD GLASSWARE REPLACER, FA, Mensa K Time Out Complete 04/18/21 [...] and tissue Entry 1 Skin Integrity Intact, [place], Warm, and Skin Abnormality No Dry (more content not included)... Normal [facility] Main OR Preoperative Recordo n 04-25-2021 Main OR Preoperative Record PreOp Document Type FT Summary Primary Physician: Kwame Yang DO Finalized Date/Time: 04/25/21 16:43:54 Pt. Name: KOKO MEIER /Sex: 1960 Male Med Rec #: [id number] Physician: Kwame Yang DO Financial #: [id number] Pt. Type: I Room/Bed: [place] [address] Admit/Disch: 04/18/21 08:03:48 - 04/19/21 13:50:00 Institution: [...] By: Nandini Villaseñor RN 04/25/21 16:43 Normal [facility] Coding Summary.on 04-24-2021 Coding Summary. CD:[id number] Gh0bWw+ PGhlYWQ+HA7LRYBpH12kpTIbyM4 VV1oBCT5PQHNAZEUYQH1IWT3vxT C0LYgeO4QsnnCt XtafvCWlID90UAq4WXQ6sFqbIPq tcP5ftHAhC5h3EyFmVK80lR63TX yxBKPeYgZ1NmEnetkumDOh S8jjZdDuqLApRsu+PHRhYmxlIHd nJOXyMBypJAKeEpNuvYycAA6qQq 9yZGVyLWNvbGxhcHNlOiBj l8rqJIQkTAzxPY4zhNmxI8YysMK 1UXDew9s9Xj02dVW+NBIhGKH1kM jwYWajw258TxMio7swUAE3 wOQtVTwkDAG4F87ys1A9NHEuDNR tFSH8cEW3dD4gnVpttqdiF9XtaB ThQqH9GGJ0fCRmkV3msKgb cagakZ4pOlg+S93STA7LXIIYPH6 BSlg9F6CzFioqjJE+XZ64MZZrFG 00iUNuoKAqc8rbzNn5IzJr LQHcCSQ4eUyzDXwbe7WdMXDrP61 otACkm4X7JEOknSiylKDzPbIjjU R5wX1wQPppdcmjl8ytpijp Ycaql1ljba22yP08W58xHIlcWOA zJQQ3OJLqJKOxmPscjv3laX1xHg 8+NIgse0wxg5gguUp7VhKu AQDeiuEqsKaqZEQ2h7IqHf77Q9N pzTnkl6YhZec8wv64rRKqu9Z7sQ T2AIdmMPCydC8nQAkaNiS2 VCFaFjRydP52hPYuELavLr0baLt gmKdfKD8kILYbsgiyPKYrfA3gJL FoaRCrlCouHO1qWNOpkesc m721JnXdNTV4RWImrCYtM5FbiD1 kKhWmSWLjOQZyL6NkrWKsBPgeZ9 68IWliKlL8WXComhRyE4Ri ZJYfiNwiUnT5k5S0Wg1Qz7Jixfz zBJI6JWarBQO9VmF5OkCfSzR8O6 HwUrx1BGFmzSppIL2vM1Wk QZRwxturwrsibAC5VGBwYCCctJ1 3rWAlVCdxVd3in6E1y368CCAtFB ZbeS37Fh3itVtfGBWnqOKM zP9zmzwpo8ipblnoLbVmVQVvBPv 6PWw3YDLjeQgwHoLpHGL1LnR7KX W5tCImsV5ihCvswwfjwT4z Oyc+H34dfH6oLGL8IWA7ppjaSTW vtnUsJQ69JZ11X6SxCpttjVUvgH U+UOItguNavPcjVZ0sMyUz d3csu7VfVUsjP0NoUWLwHVbkUaz 5ZMAmQOT6zAE8wG6xLXLzJJjmv1 Y1sVR4X2VbnkEimb2fc9rp RRIwPGlqQ33gqVGbl8H5NBBsiXI 7RXEtnIdzKpRxzL25Hix+PGNvbG zmx4DaBknbx3arz8wryNl2 WzPhYACpfcWyyPqzEUH4x1OuTn0 4J80lWTohELFzJLGuAZBlAQIvqB wyyz1kaS2sWq4+PGNvbCB3 pEI1yK1vPUBgQvR4BBbiE678MlG foTZkDgddk8flv5gljBp8MbLzJI EvjtJfePtaYWS4g2UoPm63 Z17bGXdwULGgOWIoBPCjPEQyqHg kqr7ikI3tHf8+JL8cd9audi59rP 48dHI+ZZPeHQD7cBcbKDpk URPozA8xNTiaGxN7BTCwOpQxqQ5 3nZFaNPehVc7zdJtmqKdzMM2lQM Tsibwoi367DtTlq5vuHHYj xGIoOQwrDLL9B15yc4K5WGWbCPB eXLM7uUL9iB3ooOgznysozMCapN yvynBqjKbaQGbcKIcfN140 IHRvcDsnPlBhdGllbnQgTmFtZTo 6G5JpIdi5YWRenNslNE9dgQChCJ fdOp2eiHwtpGfpMX7bBZEp bcvtu451UwMfm2boTIFzvWWiZPx vBFL1X36eq2W8CXIkGULnCOB9qB C5yP6brSfzfczkvZFjjRjk rjUbeZifNFddYJfmY036QRJkePd mNyKqneStCLFnbSS1GW86VR43aL Rzb1H0jBM9X5HkFFMvbvdt ljijqQP3KQNfZLDwmN65Gl2kbVu dOd4cIOVxTHY9FJSkeYOgZ4MmyC 5xOaPlQJTrGKZrG6NmgTTw UAepV465KEluZaU2EEKnobHoY1P rTUPkiFcbSjO2h4D7To0OA4W6CT 68BY94wGCfk3O3yLK3A2Kb JYMkgckvizwxcAD0BISnHNJorA6 1Cp6mjTcxXh5rSACsWBO4HZYpiP BtW8WljU3tAkRxJYDkULFg S0QunYGdKVnyB215VTksGgD3ORN odlJdU6JmFDInoDmfPaH5z6D6Lj 1IVUa8VN09KS13aFQdf6F9 uAY8Y2EwJBPkyjnjamppqCG2VLI cGFAgtF50Jl5hoAlrUr2zEKXsPX Y6WWJqgERmJ2DefP3rRjXk UOAoASEbO7TvpYAgQIynK327FZh bBjU1SRMesoKnU1SbKAQydAncHb I6x9G5Vi4IINNzAO02YIU3 dFA6WA09YQ37N2QcCyqplNRxyAF +PHRhYmxlIHdpZHRoPScxMDAlJy GwqOcwTA2oKc8dSABcIESo fQlyuLSeWiBmm5twLFDwMCruSM2 jiBeqY6LsnJH6HUUll0e3If74N5 9kE3HrkZY+YOUyxCA8dAJ7 pH5zSzOtNgD6PHaaK724BuLhbDB vFfzle3yth8xkoZd4TfV0ARRbrc ZeuZjzNAG5g0BrIl22V25d IHdpZHRoPSIxNSUiIHZhbGlnbj0 arB3vHn7+YXUhiMW9jRO4eH6cLv BwRaG9AYolQ033ZuZfdFLa Ubyof0uyb7ecqHb9HjAxICOybjJ zzSxkDNX0t5UqVr33B5BdjKqbg0 PpCmo3ev31dLKvg4B7gHG9 D8LvEIEwgsgngFHjcVpgSY1fAXC ttrqxCNWxpQ7zOPNeK9l8YiPdTa X2NGwdG8QhkrA4MEXxnYPr HMuoENY1U87om2A2FJUzMDZbLYV 0cXW1nB3weRnbfwlydPPxtLomav SmvRzlSEzuGEqaV860FPIn gCjiTRQiwS8lHREsmXMukVhlOQ3 pRRLemdkuYaTKDY1WPWBlHNkSPk ZSRVkgUzwvdGQ+PHRkIHN0 lKjqXVqwHTQsgG7wUZSyQ3k7TwL nWyN2NVuwL6LqLVDmhglzGx71mC 0xQvHcUtZ5HJbhB2QgzpJ2 WOPydIMbFBhrZLM4I98qt9R1QDI bZMWyGXE2xEJ3aX2klEfitkbggA VmdDsgdmVydGljYWwtYWxp J515JXHysNwoAfIuGdSnTlC2GRx 3Y7GrHiy3PZDfbEumWI0acIIbFV pvHl8cdYqnqBkqMO7lMCWj glduZFPecA8sUKGxuTKxwGwqXV5 pCEBuoxpsu545TcXhCZV4SNYxgA PeM0RkbE1kIaDeOHPwYFRo Q4EmiPJxWIloC804YTmwUvC8YPT wrrLzB4OgJZMxgZzuCxB1e6N6Yz 42MiBZZWFyczwvdGQ+PHRk ZNG1uWrxHNrcWKNhzS7pJYJcO5m 3NjPoQjC0SAziY1AgBHBtjxatUt 38kM7qXwRjNmE4GIdrF0Pm iaP6OROquAMxOGagZUZ4R43ce1R 2OFBdHCDxCWK5xRH8yN2ogPktdh ogbGVmdDsgdmVydGljYWwt RHhnK544CCExsAjrJj1vqYM0R9Y sDct6AATeuJowQN6ayGVmAPqdOx 2wmSzgfXajIT0oGBUlopuo TMNxkF4vDHKjbCUbuKzuJR8iRCO hsaqsn922SkZzTNS7OZZbjSXrC5 LfnO9pTsCyBBHpAPOlF4Mk hAXpQSyvH100AEkxOrB1CQHmblV hK4PhAJRuhIpgMkH0c0E7Zj0All DzaHnfcfM4L9YvAcixcLZ+ BI29IUPtLW77uNZoaABxs6ddgSh 8EsRvVMDvMJU9bQvkHVfhl3AcDQ LaT39wkVHzl9W7TNUztCtf tUYeRwYwaLP7oI0oNIdakcfxt7v rcftgIpsws1eumz71cB80V54aCV dpZHRoPSIzMCUiIHZhbGln lw3ueH5aDe7+HTUlnLM4wHS1eZ7 lBqFiRdA5UQhkX726XaFeiWDdTl qmi5cif2tqdHm3YmLqSDCt kxFntHxaBOS8r0XfQi66E88nOHm lIWIxBLQsZHBmAMSzqBggxj1oiT 9wIi8+RW8sg5pbqw53zM77 dHI+JKLcJFC0gLoyWHcmHWOrmF0 zCJwvMyH3BRJbUkLudE08eQLfUV boFx6imZvquGnhJQ5mJHVb hjnoh756MkOsh3elUBDjfIRmVXm rJBP3Q26lc2T1FPGxJLAnIMF9kJ O2hK6uoGavkfwaxBCdzQhp uhSrxUrgTXpqELytE149KGNbrHi iUqBbnZFlD9wndnOHSG2eLsfbgK Q+ZEKqTGB1oLvkMSsuVEDs qI5rLFWdF5e8LbOpLuV1FWjnC0Z qcrY2JEFqoHLbHZCepPERdQ1beq nqe7heoxnuNkQxCEOiBNp8 VEe2NAUppNiqOaQsKAZ5GjU1CTK 6bVFksB5orDlsljgonO4dMpl+Rk lOOjwvdGQ+IEPhHOU6mHre TBmfVGUwlI2oUVFjR0v5DaYrDkJ 5OPkvA4YffaP0HGMmdCTeJSWtwA YPfZ5qlgpiq0zqzgloRlBi RUSuHYu9GLv7FYOyeAbgDrSxYTH 2NxY8HMH9rCXkaQ0qzHkocvlhnN 9wOyc+TVJOOjwvdGQ+PHRk URJ4hOwpZJypIDWgbB2xQROfY2x 3UfFdInM4MVvxV3KdvkL5MUXzoV JhTLBokWBXfC8rjhgli7pc wiyfBsFhAKXtTUp7DLs0ORWaxVd mNiSjDDP2AtM6TYQ4kUFivQ9fvL yvknofxN1aFjq+CJE8DBA6 HC61YJ88N3VeDhcxaNKdyHG+PHR hYmxlIHdpZHRoPScxMDAlJyBzdH bwUM7hHy8eUMVaJKGsmMtu cHNl (more content not included)... Normal [facility] Operative Reporton Operative Report Patient: SANTIAGO [...] preparations for the proposed operation continued.. Normal [facility] Comment on above: Result Comment: Elec [...] list: All Problems Arthritis / SNOMED CT 9583782 / Confirmed Diabetes mellitus / SNOMED CT 786026149 / Confirmed High cholesterol / SNOMED CT 02435012 / Confirmed High blood pressure / SNOMED CT 1954933466 / Confirmed Histories Past Medical History: No active or resolved past medical history items have been selected or recorded. Family History: Hypertension Father Diabetes mellitus type 2 Mother Brother Metastatic cancer Father Procedure history: Spine orthopedic surgery, lumbar (5296340035). Spine orthopedic surgery, cervical ([id number]). Arthroscopic repair of rotator cuff (0254848060). Carpal tunnel release (756410836). Appendectomy (421403914). Partial resection of colon (58537391). Social History Social & Psychosocial Habits Alcohol [...] results Radiology results ECG interpretation Condition Plan [place] [employer] (ASA) physical status classification: Class III. Anesthetic Preoperative Plan Anesthesia: General. , Regional Interscalene Block. Anesthetic plan, risks, benefits, and alternatives discussed with the patient and/or family. Risks discussed: nausea, vomiting, headache, sore throat, dental injury, serious complications. Patient verbalized understanding. Communication: face to face with (patient 5 minutes, Pt educated on the importance of smoking cessation.). [facility] Comment on above: Result Comment: Elec tronically Signed By: Christiano Linton Jr, DO\.br\Date and Time Signed: 04/23/21 08:08 EDT Progress Note-Physician Patient: KOKO MEIER Age: 60 years Sex: Male : 1960 Associated Diagnoses: None Author: Christiano Linton Jr, DO Postoperative Information Post Operative Note: Post Anesthesia Care Unit. Anesthetic utilized: General. Health Status Allergies: Allergic Reactions (Selected) No Known Allergies Problem list: All Problems Arthritis / SNOMED CT 2727286 / Confirmed Diabetes mellitus / SNOMED CT 950580683 / Confirmed High cholesterol / SNOMED CT 42078302 / Confirmed High blood pressure / SNOMED CT 6634853779 / Confirmed Physical Examination Vital Signs 04/18/2021 [...] br/min br/min (more content not included)... Normal [facility] Comment on above: Result Comment: Elec tronically Signed By: Royer Jonas DO, Christiano Pearson\.br\Date and Time Signed: 04/23/21 08:09 EDT Auto Diffon 04-19-2021 Basophils/100 WBC (Bld) 0.4 % Normal 0.0-2.0 [facility] Comment on above: Order Comment: Order Added by Discern Expert. Performed By: #### 1 [id number] #### [facility] [address] [place] [address] Basophils/Leukocytes Auto (Bld) [Pure # fraction] 0.0 E9/L Normal 0.0-0.2 [facility] Comment on above: Order Comment: Order Added by Discern Expert. Performed By: #### 1 [id number] #### [facility] [address] [place] [address]16[address] Eosinophils/100 WBC (Bld) 0.1 % Normal 0.0-8.0 [facility] Comment on above: Order Comment: Order Added by Discern Expert. Performed By: #### 1 [id number] #### [facility] [address] [place] [address] 424[address] Eosinophils/Leukocytes Auto (Bld) [Pure # fraction] 0.0 E9/L Normal 0.0-0.5 [facility] Comment on above: Order Comment: Order Added by Discern Expert. Performed By: #### 1 [id number] #### [facility] [address] [place] [address] 87206 Lymphocytes/100 WBC (Bld) 14.0 % Normal 14.0-50.0 [facility] Comment on above: Order Comment: Order Added by Discern Expert. Performed By: #### 1 [id number] #### [facility] [address] [place] [address] Lymphocytes/Leukocytes Auto (Bld) [Pure # fraction] 1.7 E9/L Normal 1.0-4.0 [facility] Comment on above: Order Comment: Order Added by Discern Expert. Performed By: #### 1 [id number] #### [facility] [address] [place] [address] 766[address] Monocytes/100 WBC (Bld) 5.9 % Normal 4.0-14.0 [facility] Comment on above: Order Comment: Order Added by Discern Expert. Performed By: #### 1 [id number] #### [facility] [address] [place] [address] 31530 Monocytes/Leukocytes Auto (Bld) [Pure # fraction] 0.7 E9/L Normal 0.2-1.0 [facility] Comment on above: Order Comment: Order Added by Discern Expert. Performed By: #### 1 [id number] #### [facility] [address] [place] [address] 048[address] Neutrophils/100 WBC (Bld) 79.6 % High 36.0-75.0 [facility] Comment on above: Order Comment: Order Added by Discern Expert. Performed By: #### 1 [id number] #### [facility] [address] [place] [address] 6[address] Neutrophils/Leukocytes Auto (Bld) [Pure # fraction] 9.8 E9/L High 2.0-7.5 [facility] Comment on above: Order Comment: Order Added by Discern Expert. Performed By: #### 1 [id number] #### [facility] [address] [place] [address] BUNon 04-19-2021 Urea nitrogen [Mass/Vol] 19 mg/dL Normal 5-21 [facility] Comment on above: Performed By: #### 1 [id number] #### [facility] [address] [place] [address] CBC w/ Auto Diffon Erythrocyte distribution width (RBC) [Ratio] 13.1 % Normal 10.9-14.2 [facility] Comment on above: Performed By: #### 1 [id number] #### [facility] [address] [place] [address] Hematocrit (Bld) [Volume fraction] 42.1 % Normal 37.7-49.0 [facility] Comment on above: Performed By: #### 1 [id number] #### [facility] [address] [place] [address] Hemoglobin (Bld) [Mass/Vol] 14.0 g/dL Normal 13.5-17.5 [facility] Comment on above: Performed By: #### 1 [id number] #### [facility] [address] [place] [address]14[address] MCH (RBC) [Entitic mass] 31.5 pg Normal 27.0-34.0 [facility] Comment on above: Performed By: #### 1 [id number] #### [facility] [address] [place] [address] MCHC (RBC) [Mass/Vol] 33.3 g/dL Normal 31.4-36.0 [facility] Comment on above: Performed By: #### 1 [id number] #### [facility] [address] [place] [address] MCV (RBC) [Entitic vol] 94.4 fL Normal 80.0-100.0 [facility] Comment on above: Performed By: #### 1 [id number] #### [facility] [address] [place] [address] Platelet mean volume (Bld) [Entitic vol] 9.5 fL Normal 6.4-10.8 [facility] Comment on above: Performed By: #### 1 [id number] #### [facility] [address] [place] [address] Platelets (Bld) [#/Vol] 177.0 E9/L Normal 150.0-500. 0 [facility] Comment on above: Performed By: #### 1 [id number] #### [facility] [address] [place] [address] RBC (Bld) [#/Vol] 4.5 E12/L Normal 4.3-5.9 [facility] Comment on above: Performed By: #### 1 [id number] #### [facility] [address] [place] [address] WBC corrected for nucl RBC Auto (Bld) [#/Vol] 12.3 E9/L High 4.0-11.0 [facility] Comment on above: Performed By: #### 1 [id number] #### [facility] [address] [place] [address] Capillary Glucose POCon 03-28 Glucose [Mass/Vol] 271 mg/dL High 55-99 [facility] Comment on above: Result Comment: Joanna daly RN/ Performed By: #### 2 [id number] ####[facility] [address] [place] [address] Glucose [Mass/Vol] 226 mg/dL High 55-99 [facility] Comment on above: Result Comment: Joanna daly RN/ Performed By: #### 2 [id number] #### [facility] [address] [place] [address] Consent for Anesthesiaon Consent for Anesthesia [id number]:127 Normal [facility] Creatinineon 04-19-2021 Creatinine [Mass/Vol] 0.7 mg/dL Normal 0.5-1.3 [facility] Comment on above: Performed By: #### 1 [id number] #### [facility] [address] [place] [address] Discharge Instructionson Discharge Instructions [id number]:127 Normal [facility] Inpatient Clinical Summaryon 04-19-2021 Inpatient Clinical Summary [address] [address] Clinical Summary Person Information: Name: KOKO MEIER Age: 60 Years : 1960 Sex: Male PCP: JOSH MELVIN DO Marital Status: Phone: [phone] Race: White Ethnicity: Non- or Language: Malawian Visit Id: Visit Reason: OA RIGHT SHOULDER Speciality: Acuity: Enc Type: Inpatient Med Service: Surgery Arrival: 04/18/2021 08:03:48 Discharge: Dispo Type: Address: [address] [place] [phone] Provider Notes: Diagnosis: Arthritis of shoulder region, [...] Follow up: With: Address: When: [place] [address] Business (1) 04/26/2021 2:45 PM Patient Education Information: Danyell Yang - Shoulder Replacement (Custom) [facility] Inpatient Patient Summaryon 04-19-2021 Inpatient Patient Summary [address] [address] Patient Discharge Instructions PERSON INFORMATION Name: RENEA [...] Follow up: With: Address: When: [place] [address] [employer] (1) 04/26/2021 2:45 PM In the event [...] New Medications [facility], [address] [place] [id number], [phone] acetaminophen-oxycodone (Percocet 325 mg-5 mg Tab) 1-2 [...] a day. (more content not included)... Normal [facility] Interdisciplinary Note - Mir e Manageron 04-19-2021 Interdisciplinary Note - Monitoring Coordinator PT is awake and alert in bed, await rounds with Dr. Yang. . PCP verified and Insurance information reviewed and DME discussed. Contact information provided and white board updated. No family present at this time. Pt lives with and she will transport at [place]. Inpatient status reviewed, Medicare rights reviewed and form signed, original provided to pt. Declines any concerns or anticipated DC needs. Plan to DC home today 04/19. CRM received a phone call from hospital stevedoring supervisor Viri. States pt Ct called and waiting at pharmacy for meds to be filled and having a issue with filling them as prescribed. CRM contacted Temo[employer] [employer], spoke with Yifan. States pt was prescribed Percocet and already on Morphine per pain management physician, and also already on clebrex, and prescribed Meloxicam. Will need clarification from Dr. MADELINE contacted Dr. Yang office, VM left [...] waiting for approval. CRM contacted pt Ct [phone] and updated. Viri, hospital stevedoring supervisor updated. Normal [facility] Comment on above: Result Comment: Elec tronically Signed By: Petty KOO, Afia\.br\Date and Time Signed: 04/19/21 15:36 EDT IntraOperative Documentson 0 04-19-2021 IntraOperative Documents [id number]#1.00CD:127 Normal [facility] IntraOperative Documents [id number]#1.00CD:127 Normal [facility] Lyteson 04-19-2021 Anion gap [Moles/Vol] 11 mmol/L Normal 6-16 [facility] Comment on above: Performed By: #### 2 [id number] #### [facility] [address] [place] [address] Chloride [Moles/Vol] 103 mmol/L Normal 101-111 [facility] Comment on above: Performed By: #### 2 [id number] #### [facility] [address] [place] [address] CO2 [Moles/Vol] 30 mmol/L Normal 21-31 [facility] Comment on above: Performed By: #### 2 [id number] #### [facility] [address] [place] [address] Potassium [Moles/Vol] 4.0 mmol/L Normal 3.5-5.3 [facility] Comment on above: Performed By: #### 2 [id number] #### [facility] [address] [place] [address] Sodium [Moles/Vol] 140 mmol/L Normal 135-145 [facility] Comment on above: Performed By: #### 2 [id number] #### [facility] [address] [place] [address] Message from Medicareon 03-28 Message from Medicare [id number]#1.00CD:127 Normal [facility] Patient Education - Texton 0 04-19-2021 Patient Education - Text [place], [place] [facility] DISCHARGE INSTRUCTIONS: SHOULDER REPLACEMENT [...] persistent vomiting. Kwame Yang DO [facility] [address] [place] [address] Reviewed: [facility] Physician Orderon 04-19-2021 Physician Order [id number]#1.00CD:127 [facility] Preoperative Documentson Preoperative Documents [id number]#1.00CD:127 [facility] Preoperative Documents [id number]#1.00CD:127 [facility] Progress Note-Physicianon Progress Note-Physician Patient: KOKO [...] Pressure 80 mmHg SpO2 92 % Normal [facility] Comment on above: Result Comment: Elec tronically Signed By: Kwame Yang DO\.br\Date and Time Signed: 04/19/21 12:55 EDT eGFRon 04-19-2021 GFR/1.73 sq M.predicted among blacks MDRD (S/P/Bld) [Vol rate/Area] mL/min/{1.73_m2} Normal >=59 [facility] Comment on above: Order Comment: Order added by Discern Expert. Result Comment: eGFR is race adjusted. AA=. Performed By: #### 2 [id number] #### [facility] [address] [place] [address] GFR/1.73 sq M.predicted among non-blacks MDRD (S/P/Bld) [Vol rate/Area] mL/min/{1.73_m2} Normal >=59 [facility] Comment on above: Order Comment: Order added by Discern Expert. Result Comment: Chain Sales Consultant aracely kidney disease could be indicated at eGFR's of less than 60 mL/min/1.73m2. Kidney failure is indicated at less than 15 mL/min/1.73m2. Performed By: #### 2 [id number] #### [facility] [address] [place] [address] ABO/Rhon 04-18-2021 ABO/Rh Positive Invalid Interpretation Code [facility] Comment on above: Performed By: #### 2 [id number], [id number], [id number], [id number] ####[facility] [address] [place] [address] ABO/Rh History Checkon 04-18 ABO/Rh History Check Verified Hx Blood Type Normal [facility] Comment on above: Performed By: #### 2 [id number], [id number], [id number], [id number] ####[facility] [address] [place] [address] ABSC Tubeon 04-18-2021 ABSC Tube Interp Negative Normal [facility] Comment on above: Performed By: #### 2 [id number], [id number], [id number], [id number] ####[facility] [address] [place] [address] Blood Bank ID#on 04-18-2021 BBID# [id number] Invalid Interpretation Code [facility] Comment on above: Performed By: #### 2 363831, [id number], [id number], [id number] ####[facility] [address] [place] [address] Blood Bank Slipon 04-18-2021 Blood Bank Slip [id number]#1.00CD:127 Normal [facility] Capillary Glucose POCon 03-28 Glucose [Mass/Vol] 241 mg/dL High 55-99 [facility] Comment on above: Result Comment: Eva dav Meter Performed By: #### 2 [id number] #### [facility] [address] [place] [address] Glucose [Mass/Vol] 312 mg/dL High 55-99 [facility] Comment on above: Result Comment: Joanna daly RN/ Performed By: #### 2 [id number] #### [facility] [address] [place] [address] Glucose [Mass/Vol] 293 mg/dL High [address] Comment on above: Result Comment: Eva dav Meter Performed By: #### 2 [id number] #### [facility] [address] [place] [address] Consent for Procedure/Surger yon 04-18-2021 Consent for Procedure/Surgery [id number]#1.00CD:127 Normal [facility] Consent for Treatmenton 03-28 Consent for Treatment [id number]#1.00CD:127 Normal [facility] H&P Updateon 04-18-2021 H&P Update [id number]#1.00CD:127 Normal [facility] Main OR PACU I Recordon 03-28 Main OR PACU I Record PACU Phase I Docum ent Type FT Summary Primary Physician: Kwame Yang DO Finalized Date/Time: 04/18/21 16:44:21 Pt. Name: KOKO MEIER/Sex: 1960 Male Med Rec #: [id number] Physician: Kwame Yang DO Financial #: [id number] Pt. Type: O Room/Bed: [facility] Admit/Disch: 04/18/21 08:03:48 - Institution: Case Times [...] By: Keira Knox RN 04/18/21 16:44 Normal [facility] Monitor Recordon 04-18-2021 Monitor Record [id number]#1.00CD:127 Normal [facility] Operative Reporton Operative Report Patient: SANTIAGO [...] 3. size 3 humeral insert 4. Revers [place] size 9 stem with 39 (+2 right) [...] the gregg (more content not included)... Normal [facility] Comment on above: Result Comment: Elec tronically Signed By: Kwame Yang DO\.br\Date and Time Signed: 04/18/21 12:52 EDT Outpatient Surgery Discharge Instructionon 04-18-2021 Outpatient Surgery Discharge Instruction [place] [address] Patient Discharge Instructions PERSON INFORMATION Name: KOKO [...] Date Follow up: With: Address: When: [place] [address] [facility] (1) 04/26/2021 2:45 PM Pharmacy Information: You may receive a survey from [employer] asking you to rate your care experience. Your feedback is important and will help us understand what we do well and how we can improve the quality of care we provide to you, your loved ones and our community. It?s an honor to serve you. Thank you for choosing [facility] HERE ARE THE MEDICATION CHANGES THAT OCCURRED [...] times a day. PATIENT EDUCATION INFORMATION Instructions: [place], [place] [facility] DISCHARGE INSTRUCTIONS: SHOULDER REPLACEMENT [...] persistent vomiting. Kwame Yang, DO [facility] [address] [place] [address] Reviewed: Normal [facility] UA With Cult Reflexon 2020 Bilirubin Ql (U) Negative Normal Negative [facility] Comment on above: Performed By: #### 1 [id number] #### [facility] [address] [place] [address] Clarity (U) CLEAR Normal Clear [facility] Comment on above: Performed By: #### 1 [id number] #### [facility] [address] [place] [address] Color (U) YELLOW Normal Yellow [facility] Comment on above: Performed By: #### 1 [id number] #### [facility] [address] [place] [address] Epithelial cells.squamous LM.HPF (Urine sed) [#/Area] 0-2 Normal 0-2 [facility] Comment on above: Performed By: #### 1 [id number] #### [facility] [address] [place] [address] Glucose Test strip (U) [Mass/Vol] 2+ Abnormal Negative [facility] Comment on above: Performed By: #### 1 [id number] #### [facility] [address] [place] [address] Hemoglobin Ql (U) Negative Normal Negative [facility] Comment on above: Performed By: #### 1 [id number] #### [facility] [address] [place] [address] Ketones (U) [Mass/Vol] Negative Normal Negative [facility] Comment on above: Performed By: #### 1 [id number] #### [facility] [address] [place] [address] Maeser.plasma/Maeser .RBC (Bld) [Mass ratio] 0-3 Normal 0-3 [facility] Comment on above: Performed By: #### 1 [id number] #### [facility] [address] [place] [address] Mucus Ql (Urine sed) TRACE Normal [facility] Comment on above: Performed By: #### 1 [id number] #### [facility] [address] [place] [address] Nitrite Ql (U) Negative Normal Negative [facility] Comment on above: Performed By: #### 1 [id number] #### [facility] [address] [place] [address] pH (U) 6.0 [pH] Invalid Interpretation Code 5.0-9.0 [facility] Comment on above: Performed By: #### 1 [id number] #### [facility] [address] [place] [address] Protein (U) [Mass/Vol] TRACE Abnormal Negative [facility] Comment on above: Performed By: #### 1 [id number] #### [facility] [address] [place] [address] Specific gravity (U) [Rel density] 1.020 Invalid Interpretation Code 1.005-1.03 0 [facility] Comment on above: Performed By: #### 1 [id number] #### [facility] [address] [place] [address] Type of Urine collection method Cohn Normal [facility] Comment on above: Performed By: #### 1 [id number] #### [facility] [address] [place] [address] Urobilinogen Qn (U) 0.2 {Rolando'U}/dL Normal 0.0-1.0 [facility] Comment on above: Performed By: #### 1 [id number] #### [facility] [address] [place] [address] WBC Auto Ql (U) Negative Normal Negative [facility] Comment on above: Performed By: #### 1 [id number] #### [facility] [address] [place] [address] WBC LM.HPF (Urine sed) [#/Area] 0-5 Normal 0-5 [facility] Comment on above: Performed By: #### 1 [id number] #### [facility] [address] [place] [address] XR Shoulder Complete Righton 04-18-2021 XR Shoulder [...] MD Transcribed by: BECKY Technologist: CHARLY, Normal [facility] Outside Recordson 04-17-2021 Outside Records [id number]#1.00CD:127 Normal [facility] Outside Recordson 04-09-2021 Outside Records [id number]#1.00CD:[address] [facility] [address] Upper Extremity w/o Contr ast [...] Jerome Warren MD Transcribed by: BECKY Technologist: [facility] Coding Summary.on 04-04-2021 Coding Summary. CD:[id number] Gh0bWw+ PGhlYWQ+OT2AZQSmZ14ptBFswR3 YN7jAXG3WQVLEPROMXK4IOJ0oiP D0EYdbY7JmhoQi AfmiaVAnQZ56XQf9AVL3tEfwLYf dcH3yaGRiW3m8ZdWoUC24eH97AH xpOAJdQnM7LsLwhqelsBXu W1kuUgMreJLlGel+PHRhYmxlIHd uOOFxFXwaSERsLnZscJcsMT8dVf 9yZGVyLWNvbGxhcHNlOiBj j6dyELQaNSovYV4pdAlcP5FalYS 0VKKdu9e2Pg80oER+QOYvORY3xK gdCFzww708DoXsz7quOZF5 wBQjHPjzUNZ1G23xn3A7EFGdWBW mXMD1jXU4xO1ipBqznlfpQ4PmrJ EfFyZ2ASO0yVCxiJ8kqQte fnrhsX4rYxy+P02OCO2AJCFTZB9 TQfm8L1FuLlfueNV+VD10LQLgAY 24jKIalEOqp7rhdCg3MaOc ETVbJLY6rOmqHFvee8BlOWKyW04 mkEMti9C8RGBbmGlezWDdDdUfyF G8tS7jNDxzxhowz6gpsxii Nwrib5tvac51xW88W66dRDwaEEE bKUK3NXZdIQGlgGinad9uiI7pKi 8+KFxpb6ukl2axdIb0AsIa ARPlmiIkhFqaHFQ0g7WfJo53T7M cvRjrs1QgSit5vi67nVVqn1F8cL C1GIegKIZihZ3jNDbzCaO8 TWRiFsNpoR57qTVqTLsaFb2yoGs ohInfWR5gPUPskxudBSDihW9mNH NhtCFrvForJC6uZTFvrwml c529VlUvMIQ8NTKaeXKlO0YhrZ0 bTjGaDTWkJLBiP3XqzVBmTUncR5 81BTjzXdZ4DLMmnfXpK7Kl YQIkvDjgCpR3u5H0Go7Jh9Ptxuk mHND0SMinJAR4ZjF5ArAnMhD4A4 SlQsu0XCVguUexVQ2tO1Qs MKOgmbaxeijpsGV5TSWkJUYilW8 4aDKjZYwqUs1ug3P0u947UEUuOP QgvR58Qo6xrJnuEQUzoBLG mD9vlwvve2aizxpjVtOgJZKoIOi 4ZWp7IJPdgXzvTnKmKKR7TfS3KW I5nKWsmX7zcUpapbdxvC3y Oyc+D74kpS7qRDM5KWV4nxsfLBS sszLtZT51JR68Y6CyScapoHKvmT U+JBBhmpWlmTinXZ2hLxVr j5gqd6OtJCyyI0ZkUPQdCRimOdy 0YKJqSJP9hKO4qH4zFRNpBZtxk4 N7oMH6U6QtuwVdpl1sx4ss XVDqYOfkG74bkVCcp8V7SIWuwBP 6BGMxsArxRhGexR54Hlf+PGNvbG dbp4UrOrkts1vti9xycIz9 CuExYQJexsHwmLapTGA1i7NbGg9 1O93cYRgtWZAxJFSuOKIsPIGkyC dfiz1acE7rBm1+PGNvbCB3 uYU1lK3lJYNjEtD2HHviD987ZoI bsSDvDbhdo3fby5krqDd3TqTyOH RyjyJcmWemCYN7c2KhLn74 H88tZFlcSDDvCEDjMVFgGWBshUy wvm1yjY3hPf9+UH7ep3btpc86cG 48dHI+GSDmBJU8qCxlZZtm TOCioF5wUEumAaB8ZQKcYjTyqP7 9bPWbYCsoYl8qiFcshSjiMW5tLO Ltwxwib774WrFuh9cbPSIj mYPcUCxrIJI4Z96an1J1XTVpRMX tPWY7rTM7tR1zqJgzgsfwfCStiE jkduYouIiqXEjyBAtmV744 IHRvcDsnPlBhdGllbnQgTmFtZTo 5E1VkHqk6DNWlqHhfAO3afUYtHL zvTo7wkHkgsLjdZW5uAFIc desbr636DnCbw7frYJShdMCtEMd lXOU5P76hk2F6CBOtVOOoQVD5iR A8uS2veUjzcqduaQBkfQia liSxvQsfZWcqISpzV379JWNqaWt oCeMieqZdQBPyfHS6ZG89WE77tL Vsr2Z9gQM0L2MgLGQrcfch mxaykWS6YGKpIDEggD62Uv9nlVz lPm2qDHMmBYO6TMAhqEVtZ3KcsZ 6fFzFvVAFaFCJpL4LryQVt TJdiX722QXmyPlO0RKTavoMaH5P aNZDhuEdvOsT7k3T1Mu1XD1X3KV 11LD90eGFlw3W4tRJ1D7Ax HRFbdkecgglnjAI0NAPuKOTtzP5 8Iw8bwEvkBe7lUJOeZBA9MEZomA FzP9WuuC1dSiRuVGHcWEAr G3MacABhOPzoX036GPluNmE6TTM yenYpG9JfRPIlwCidYyM1e5Q2Ur 5REKz7LB85KE62fLWps1U2 qNM4D7QaCXFbbknuujwuoVT0FSD xVBDepU21Ch0ssYujQd4qDTQvXY U5KWLenHYxT1KkkL1kRrKs JGSrOZKgO9OveQIiXMstS303NXr aMiM3SQXtydZjQ2QeKWXbvCecWk N0c4A5Sa4UFGUsTN51AOT6 hJL4MB23NC24T6JpZundxSKxhFN +PHRhYmxlIHdpZHRoPScxMDAlJy EqyPfpTT4nPz6vGUHyLTFk qZsmuQYvFgXsw4ukLMMkKGyxZI9 emEvzQ6GhvIQ3EPSqn6k9Wv17Y2 7pQ3BfhQD+HEJvzZC1eKE2 oC1rFlCjIgQ3BVtrO157XeZgjDA zKeqnd1xdh7jgyId0HrL7KWYwaq KqeOniMPL7d7ImWy08F65q IHdpZHRoPSIxNSUiIHZhbGlnbj0 qoV2iUk5+UCOioWF2eKE0oB0gTb NsLxJ9NTpvB628KhKqkXYz Zbnay0nwy1mofWy3YrOuCGLhaaP cnAcvGGK8k9UlDa81H2YmtJfor1 QmRxi6fy64qQTzr5M8xJZ4 H1OoNLLjczhrpIJnrTwjBI0sJOD bkafwUSCnjY0lJPHuE2g8PdPzBq X3BZqmM5EzmnF1FLLacCCm FDweTJG9W43lw7S2HMKiGTMrGFA 1oXY4oD5qoObfdtofvLJtzAdpvw CmfGcrLGgnZMztQ044EWVg jAxdPNHrjU7zSKIygTYmzThyFK0 rWCNeknwvPkLSTE4AVDSvCSwIQb ZSRVkgUzwvdGQ+PHRkIHN0 vNijQFjvJNQgrY3fXSMtH2r5NgD aYmX0MLpjD0JeAJMevthgDs36nV 8dLtKyUeX0VHirK7BcplE4 NIKwjDPxIJuwTRI0H57ke9Q5TQO uHPYfWHD6aVX5zI4rxFtqatnbeL VmdDsgdmVydGljYWwtYWxp Q938LJRkxNdpMtKaKmQnWyN0IJw 2V5BeReg8YMXewRudEW5mqDZnBJ uaIn4uuWdqsSgjTC2vQZJq urtmJWRknE2yZIUhkFVrgGyxRA2 wZWQgojkov002YeCqVGQ8LEUtjO RqX0MxjQ6tDxIjSRTlOZTr P9IrpOLeRRwuM596JJgbKsS9LOQ emnNrL0KcWFPovVxyZqB8l8D9Od 42MiBZZWFyczwvdGQ+PHRk KMY2mRzfHKnhONOicV3rXUEcX3u 2IeUyByI0XUfyU8MdYQTchthcAd 98oS6cAmFgOjC7FMrqX4Mp krQ3IYXzeRNnCSrlCBF2N84kl4Y 0AXOnEZRwXMV0sHZ5aZ3uaYlhrm ogbGVmdDsgdmVydGljYWwt PVjoO926HLKioXjbUb4ozPL0Z5N xUkx8WRIiwCwmTO8jcLVuSWsjEf 4iaZewfUmsWY4mSJTplmmt SJVjgM2fPYJffXMlaSwnGE6xGJW svdtqc850DiBdKVF2FGIypFQoL1 UroK8zNnIdVJHpGJYkW8Rn hWQqSHcuE404WJgdAfB0NSQtvkN iW4OzMREniHhsVzA2n8B6Dj3ZmR JwBKCgEJ72LI01XF87U9Ls PjwvdGFibGU+PHRhYmxlIHdpZHR oULqhISZrVgLmdBdyCF4nTq8sJH JvNVDmpBdtgPFuVzAxu4el KXPpYMyuQS1eeMtfR8HwxTF4NYJ fg0q4Fk69R06lK0NteQK+PGNvbC I6uMG3iJ4aPcUnCxV1YDsd R529QcOrsITjUnvem9pxo5kodNg 4SoXxOFKjzjErgChdVJW3s4CqYp 99L09yXMhjRSSwTNMgHHDa MVBspRdfkm5fiO8vYu8+PGNvbCB 1aMS7aF5sEsWcKfR3MPpcM225Sb XzoPDqZorwV99yI8SxjGI+ GXOtWyz6CLPghMyxOK5pbPHzQBt uFw7qTYB8MmTyNeHyUScfK9IbEX ThtvyumsigjFX6FMYmEXCr cF77Vv8xuSjyQq9kGEIcHMW4DVJ fhHDfR2BrfW5jRiAqXNZbSHZsJ4 AbtDDlITdaU121TTytUhZ2 JBKmgcRjN5OjHAGevIbrCiO6e7L 8Gg2EsGvoeRFvOT4zOaKeIXq2E9 CvTho5PHBeeShsUD3klXMl FFgwNp0lhKpjuCkmOI6eIEKzaas wu626EwDjs9yqVTNaeZLwFVmrZC T0U00ek7Z8EPWrZJRtZSK9 oXR7rQ5bnXywtbbqnANhyHcpphV jcNwdLHroYJlxM277DQBhpJauLo LRQko9O6PaZds5WIArpFbr BB5vfYVwKFxqMf5ylMksvYbdAF8 pDYCbespmt440LrRtv3vtOVDtqW KpPZofGZM4R87hr1A9DVZa MKDbWZK2yND8xT2neGtcqjhrwYT mvZgytxJwlDoeWPsrIWchM893RX ZoiHinTf9LRci1J7PaQqf8 CNMqtRotRX6snAXgGFwpQc8vgUu qjTisHI4tEIMjvuvxn062GjGhx0 yuWXXqqLYkKLwqMRC0Q94p l1V0MXTcBZMwEJZ6xVH2bC7ihGh nbjogbGVmdDsgdmVydGljYWwtYW ezC624RJDbmGqzLpCjbYFr OjwvdGQ+IL03tl82W7KjTmrmNbk 7VJJbTZA2eTA1aB7zXAUeEAxas8 H5aSQ8F0YwphXnoa0xs0pf YXBz (more content not included)... Normal [facility] Immunization Recordson 04-04 Immunization Records [id number]#1.00CD:127 Normal [facility] ABO/Rh Retypeon 04-03-2021 ABO/Rh Retype Interp Positive Invalid Interpretation Code [facility] Comment on above: Performed By: #### 1 [id number] ####[facility] [address] [place] [address] BUNon 04-03-2021 Urea nitrogen [Mass/Vol] 22 mg/dL High 5-21 [facility] Comment on above: Performed By: #### 1 [id number] #### [facility] [address] [place] [address] CBC w/Indiceson 04-03-2021 Erythrocyte distribution width (RBC) [Ratio] 12.7 % Normal 10.9-14.2 [facility] Comment on above: Performed By: #### 1 [id number] #### [facility] [address] [place] [address] Hematocrit (Bld) [Volume fraction] 47.4 % Normal 37.7-49.0 [facility] Comment on above: Performed By: #### 1 [id number] #### [facility] [address] [place] [address] Hemoglobin (Bld) [Mass/Vol] 16.1 g/dL Normal 13.5-17.5 [facility] Comment on above: Performed By: #### 1 [id number] #### [facility] [address] [place] [address] MCH (RBC) [Entitic mass] 31.8 pg Normal 27.0-34.0 [facility] Comment on above: Performed By: #### 1 [id number] #### [facility] [address] [place] [address] MCHC (RBC) [Mass/Vol] 34.1 g/dL Normal 31.4-36.0 [facility] Comment on above: Performed By: #### 1 [id number] #### [facility] [address] [place] [address] MCV (RBC) [Entitic vol] 93.2 fL Normal 80.0-100.0 [facility] Comment on above: Performed By: #### 1 [id number] #### [facility] [address] [place] [address] Platelet mean volume (Bld) [Entitic vol] 9.3 fL Normal 6.4-10.8 [facility] Comment on above: Performed By: #### 1 [id number] #### [facility] [address] [place] [address] Platelets (Bld) [#/Vol] 168.0 E9/L Normal 150.0-500. 0 [facility] Comment on above: Performed By: #### 1 [id number] #### [facility] [address] [place] [address] RBC (Bld) [#/Vol] 5.1 E12/L Normal 4.3-5.9 [facility] Comment on above: Performed By: #### 1 [id number] #### [facility] [address] [place] [address] WBC corrected for nucl RBC Auto (Bld) [#/Vol] 8.0 E9/L Normal 4.0-11.0 [facility] Comment on above: Performed By: #### 1 [id number] #### [facility] [address] [place] [address] Consent for Treatmenton 0 8-2021 Consent for Treatment [id number]#[id number]:127 Normal [facility] Creatinineon 04-03-2021 Creatinine [Mass/Vol] 0.7 mg/dL Normal 0.5-1.3 [facility] Comment on above: Performed By: #### 1 [id number] #### [facility] [address] [place] [address] Glucoseon 04-03-2021 Glucose [Mass/Vol] 249 mg/dL High 55-199 [facility] Comment on above: Performed By: #### 1 [id number] #### [facility] [address] [place] [address] KgeM7ild 04-03-2021 HbA1c (Bld) [Mass fraction] 7.9 % High <=5.9 [facility] Comment on above: Performed By: #### 7 [id number] #### [facility] [address] [place] [address] Lyteson 04-03-2021 Anion gap [Moles/Vol] 15 mmol/L Normal 6-16 [facility] Comment on above: Performed By: #### 1 [id number] #### [facility] [address] [place] [address] Chloride [Moles/Vol] 94 mmol/L Low 101-111 [facility] Comment on above: Performed By: #### 1 [id number] #### [facility] [address] [place] [address] CO2 [Moles/Vol] 27 mmol/L Normal 21-31 [facility] Comment on above: Performed By: #### 1 [id number] #### [facility] [address] [place] [address] Potassium [Moles/Vol] 4.2 mmol/L Normal 3.5-5.3 [facility] Comment on above: Performed By: #### 1 [id number] #### [facility] [address] [place] [address] Sodium [Moles/Vol] 132 mmol/L Low 135-145 [facility] Comment on above: Performed By: #### 1 [id number] #### [facility] [address] [place] [address] XR Chest 2 Viewson XR Chest 2 [...] Jenkins MD, V. Transcribed by: BECKY Technologist: Normal [facility] eGFRon 04-03-2021 GFR/1.73 sq M.predicted among blacks MDRD (S/P/Bld) [Vol rate/Area] mL/min/{1.73_m2} Normal >=59 [facility] Comment on above: Order Comment: Order added by Discern Expert. Result Comment: eGFR is race adjusted. AA=. Performed By: #### 1 [id number] #### [facility] [address] [place] [address] GFR/1.73 sq M.predicted among non-blacks MDRD (S/P/Bld) [Vol rate/Area] mL/min/{1.73_m2} Normal >=59 [facility] Comment on above: Order Comment: Order added by Discern Expert. Result Comment: Chain Sales Consultant araecly kidney disease could be indicated at eGFR's of less than 60 mL/min/1.73m2. Kidney failure is indicated at less than 15 mL/min/1.73m2. Performed By: #### [id number] #### [facility] [address] [place] [address] Physician Orderon 03-01-2021 Physician Order [id number]#1.00CD:127 [facility] Pre-Certification Formon Pre-Certification Form [id number]#1.00CD:127 [facility] Physician Orderon 02-28-2021 Physician Order [id number]#1.00CD:127 Normal [facility] Coding Summary.on 12-21-2020 Coding Summary. CODING DATE: [address] [facility] STATUS: Home (Routine DC) PAYOR: Medicare [...] CphT Date Saved: 12/21/2020 01:14 pm Normal [facility] CT Upper Extremity w/ Contra st [...] Report Acromioclavicular Joint: Severe degenerative changes with vudw-xn-fkib contact, extensive subchondral cystic changes involving the distal clavicle, small joint bodies or fractured osteophytes, and also contrast extending into the joint. Downsloping of the acromion with undersurface spurring. Other: Partially imaged degenerative and postsurgical changes within the cervical spine. Right carotid calcifications. Visualized lung without acute finding with right lung apex pleural-parenchymal thickening/scarring. FINAL REPORT Dictated: 12/20/2020 12:51 pm Jorge Zapien MD. Signed (Electronic Signature): 12/20/2020 12:51 pm Signed by: Joreg Zapien MD Transcribed by: BECKY Technologist: ELLA Technical Comments GFR (mL/min/1/73m2) . Contrast: None Contrast amount in ml's: 0 Normal [facility] Consent for Treatmenton 11-28 Consent for Treatment [id number]#1.00CD:127 Normal [facility] Creatinineon 12-20-2020 Creatinine [Mass/Vol] 0.7 mg/dL Normal 0.5-1.3 [facility] Comment on above: Performed By: #### 2 [id number] #### [facility] [address] [place] [address] Physician Orderon 12-20-2020 Physician Order [id number]#1.00CD:127 Normal [facility] RAD - Consent to Procedureon 12-20-2020 RAD - Consent to Procedure [id number]#1.00CD:127 Normal [facility] XR Inj Shoulder Arthrogram R ighton [...] shoulder joint. Patient tolerated the procedure well. Traveling Representative image shows minimal calcification adjacent to the [...] Dose: Ka,r in mGy = 21 Normal [facility] eGFRon 12-20-2020 GFR/1.73 sq M.predicted among blacks MDRD (S/P/Bld) [Vol rate/Area] mL/min/{1.73_m2} Normal >=59 [facility] Comment on above: Order Comment: Order added by Discern Expert. Result Comment: eGFR is race adjusted. AA=. Performed By: #### [id number] #### [facility] [address] [place] [address] GFR/1.73 sq M.predicted among non-blacks MDRD (S/P/Bld) [Vol rate/Area] mL/min/{1.73_m2} Normal >=59 [facility] Comment on above: Order Comment: Order added by Discern Expert. Result Comment: Chain Sales Consultant aracely kidney disease could be indicated at eGFR's of less than 60 mL/min/1.73m2. Kidney failure is indicated at less than 15 mL/min/1.73m2. Performed By: #### 2 [id number], [id number] #### [facility] [address] [place] [address] Physician Orderon 12-08-2020 Physician Order [id number]#1.00CD:127 [facility] Pre-Certification Formon Pre-Certification Form [id number]#1.00CD:127 [facility] Consent for Treatmenton Consent for Treatment [id number]#1.00CD:127 Normal [facility] RAD - MISCon 12-05-2020 RAD - MISC [id number]#1.00CD:127 [facility] RAD - MRI Screening Formon 0 12-05-2020 RAD - MRI Screening Form [id number]#1.00CD:127 Normal [facility] Physician Orderon 11-29-2020 Physician Order [id number]#1.00CD:127 [facility] Pre-Certification Formon Pre-Certification Form [id number]#1.00CD:127 [facility] Social History Date Type Detail Facility Start: 11-11-2023 End: 04-01-2024 Sex Assigned At [facility] [employer] Other Start: 11-11-2023 Tobacco smoking status NHIS Never smoked tobacco [facility] Work Phone: Start: 11-11-2023 End: 04-01-2024 History of Social function [facility] Work Phone: Start: 11-01-2023 End: 04-01-2024 Exposure to SARS-CoV-2 (event) Not sure [facility] Start: 03-26-2023 End: 01-19-2024 Tobacco smoking status NHIS Ex-smoker [facility] Start: 03-26-2023 End: 11-11-2023 Tobacco use and exposure Smokeless tobacco non-user [facility] Start: 03-26-2023 Alcohol intake Current drinke r of alcohol (finding) [facility] Start: 03-26-2023 Alcohol Comment social [facility] Start: 05-22-2021 End: 05-22-2021 Tobacco smoking status NHIS Smoker (finding) [facility] Start: 1960 Sex Assigned At Male [facility] Start: 1960 Sex Assigned At [facility] on [facility] History of tobacco use Cigarette Smoker [facility] Vital Signs Date Time Vital Sign Value Performing Clinician Facility 04-01-2024 09:01-0400 Body height 170.2 cm Maryann Rubalcava MD Work Phone: [facility] 04-01-2024 09:01-0400 Body mass index (BMI) [Ratio] 35.24 kg/m2 Maryann Rubalcava MD Work Phone: [facility] 04-01-2024 09:01-0400 Body weight 102.06 kg Maryann Rubalcava MD Work Phone: [facility] 04-01-2024 09:01-0400 Diastolic blood pressure 65 mm[Hg] Maryann Rubalcava MD Work Phone: [facility] 04-01-2024 09:01-0400 Heart rate 89 /min Maryann Rubalcava MD Work Phone: [facility] 04-01-2024 09:01-0400 Respiratory rate 20 /min Maryann Rubalcava MD Work Phone: [facility] 04-01-2024 09:01-0400 Systolic blood pressure 129 mm[Hg] Maryann Rubalcava MD Work Phone: [facility] 03-11-2024 11:16-0400 Body height 170.18 cm DO Josh Bunting Work Phone: [facility] 03-11-2024 11:16-0400 Body mass index (BMI) [Ratio] 37.6 kg/m2 DO Josh Bunting Work Phone: [phone] [place] [address] 03-11-2024 11:16-0400 Body weight 109 kg DO Josh Bunting Work Phone: [facility] 01-19-2024 18:15-0400 Heart rate 90 /min DO Josh Bunting Work Phone: [facility] 01-19-2024 18:15-0400 Inhaled oxygen flow rate 1 L/min DO Josh Bunting Work Phone: [facility] 01-19-2024 18:15-0400 Respiratory rate 16 /min DO Josh Bunting Work Phone: [facility] 01-19-2024 18:15-0400 SaO2% (BldA) [Mass fraction] 92 % DO Josh Bunting Work Phone: [facility] 01-19-2024 18:00-0400 Diastolic blood pressure 65 mm[Hg] DO Josh Bunting Work Phone: [facility] 01-19-2024 18:00-0400 Systolic blood pressure 134 mm[Hg] DO Josh Bunting Work Phone: [facility] 01-19-2024 17:26-0400 Body temperature 97.5 [degF] DO Josh Bunting Work Phone: [facility] 01-19-2024 13:53-0400 Body height 167.64 cm DO Josh Bunting Work Phone: [facility] 01-19-2024 13:53-0400 Body mass index (BMI) [Ratio] 38.7 kg/m2 DO Josh Bunting Work Phone: [facility] 01-19-2024 13:53-0400 Body weight 108.86 kg DO Josh Bunting Work Phone: [facility] 11-11-2023 10:37-0500 Body height 170.2 cm Maryann Rubalcava MD Work Phone: [facility] 11-11-2023 10:37-0500 Body mass index (BMI) [Ratio] 36.02 kg/m2 Maryann Rubalcava MD Work Phone: [facility] 11-11-2023 10:37-0500 Body temperature 98.6 [degF] Maryann Rubalcava MD Work Phone: [facility] 11-11-2023 10:37-0500 Body weight 104.33 kg Maryann Rubalcava MD Work Phone: [facility] 11-11-2023 10:37-0500 Diastolic blood pressure 62 mm[Hg] Maryann Rubalcava MD Work Phone: [facility] 11-11-2023 10:37-0500 Heart rate 98 /min Maryann Rubalcava MD Work Phone: [facility] 11-11-2023 10:37-0500 Systolic blood pressure 136 mm[Hg] Maryann Rubalcava MD Work Phone: [facility] 11-03-2023 16:35-0500 Diastolic blood pressure 59 mm[Hg] DO Josh Bunting Work Phone: [facility] 11-03-2023 16:35-0500 Heart rate 91 /min DO Josh Bunting Work Phone: [facility] 11-03-2023 16:35-0500 Respiratory rate 16 /min DO Josh Bunting Work Phone: [facility] 11-03-2023 16:35-0500 SaO2% (BldA) [Mass fraction] 92 % DO Josh Bunting Work Phone: [facility] 11-03-2023 16:35-0500 Systolic blood pressure 117 mm[Hg] DO Josh Bunting Work Phone: [facility] 11-03-2023 15:41-0500 Body temperature 97.4 [degF] DO Josh Bunting Work Phone: [facility] 11-03-2023 15:11-0500 Inhaled oxygen flow rate 3 L/min DO Josh Bunting Work Phone: [facility] 11-03-2023 11:46-0500 Body height 170.18 cm DO Josh Bunting Work Phone: [facility] 11-03-2023 11:46-0500 Body mass index (BMI) [Ratio] 37.6 kg/m2 DO Josh Bunting Work Phone: [facility] 11-03-2023 11:46-0500 Body weight 109 kg DO Josh Bunting Work Phone: [facility] 10-14-2023 09:40-0500 Body height 170.18 cm Karime Nguyen Other [facility] 10-14-2023 09:40-0500 Body mass index (BMI) [Ratio] 37.9 kg/m2 Karime Nguyen Other [facility] [employer] Other 10-14-2023 09:40-0500 Body weight 109.77 kg Karime Nguyen Other [facility] [employer] Other 10-14-2023 09:40-0500 Body weight 109.76 kg DO Josh Bunting Work Phone: [facility] 10-02-2023 09:10-0500 Body height 170.18 cm DO Josh Bunting Work Phone: [facility] 10-02-2023 09:10-0500 Body mass index (BMI) [Ratio] 37.3 kg/m2 DO Josh Bunting Work Phone: [facility] 10-02-2023 09:10-0500 Body weight 108 kg DO Josh Bunting Work Phone: [facility] 10-02-2023 08:53-0500 Body temperature 98.5 [degF] DO Josh Bunting Work Phone: [facility] 10-02-2023 08:53-0500 Diastolic blood pressure 82 mm[Hg] DO Josh Bunting Work Phone: [facility] 10-02-2023 08:53-0500 Heart rate 92 /min DO Josh Bunting Work Phone: [facility] 10-02-2023 08:53-0500 Respiratory rate 18 /min DO Josh Bunting Work Phone: [facility] 10-02-2023 08:53-0500 SaO2% (BldA) [Mass fraction] 95 % DO Josh Bunting Work Phone: [facility] 10-02-2023 08:53-0500 Systolic blood pressure 169 mm[Hg] DO Josh Bunting Work Phone: [facility] 09-16-2023 09:20-0500 Body height 170.18 cm Karime Nguyen Other [employer] Other 09-16-2023 09:20-0500 Body mass index (BMI) [Ratio] 37.59 kg/m2 Karime Nguyen Other [employer] Other 09-16-2023 09:20-0500 Body weight 108.86 kg Karime Nguyen Other [employer] [facility] [employer] Other 07-29-2023 16:43-0400 Body height 167.64 cm DO Josh Bunting Work Phone: [facility] 07-29-2023 16:43-0400 Body temperature 98 [degF] DO Josh Bunting Work Phone: [facility] 07-29-2023 16:43-0400 Body weight 104.32 kg DO Josh Bunting Work Phone: [facility] 07-29-2023 16:43-0400 Diastolic blood pressure 74 mm[Hg] DO Josh Bunting Work Phone: [facility] 07-29-2023 16:43-0400 Heart rate 99 /min DO Josh Bunting Work Phone: [facility] 07-29-2023 16:43-0400 Respiratory rate 24 /min DO Josh Bunting Work Phone: [facility] 07-29-2023 16:43-0400 SaO2% (BldA) [Mass fraction] 94 % DO Josh Bunting Work Phone: [facility] 07-29-2023 16:43-0400 Systolic blood pressure 141 mm[Hg] DO Josh Bunting Work Phone: [facility] 03-26-2023 11:26-0400 Heart rate 88 /min Donny Peralta APRN.FRAME [employer] Work Phone: [facility] 03-26-2023 11:26-0400 Respiratory rate 17 /min Donny Peralta APRN.[employer] Work Phone: [facility] 03-26-2023 11:26-0400 SaO2% (BldA) [Mass fraction] 98 % Donny Peralta APRN.[employer] Work Phone: [facility] 04-16-2022 09:30-0400 Body height 170.18 cm Mariel Mccarthytommie Other [employer] Other 04-16-2022 09:30-0400 Body temperature 97.6 [degF] Ulyssessam Chaban Other [employer] Other 04-16-2022 09:30-0400 Diastolic blood pressure 78 mm[Hg] Ulyssesal Chaban Other [employer] Other 04-16-2022 09:30-0400 Respiratory rate 20 /min Ulyssesal Chaban Other [employer] Other 04-16-2022 09:30-0400 SaO2% (BldA) [Mass fraction] Kamal Chaban Other [employer] Other 04-16-2022 09:30-0400 Systolic blood pressure 154 mm[Hg] Kamal Chaban Other [employer] Other 01-08-2022 14:30-0400 Body height 170.18 cm Ulyssessam Mccarthyban Other [employer] Other 01-08-2022 14:30-0400 Body mass index (BMI) [Ratio] 37.27 kg/m2 Kamal Chaban Other [employer] Other 01-08-2022 14:30-0400 Body temperature 97.4 [degF] Ulyssesal Chaban Other [employer] Other 01-08-2022 14:30-0400 Body weight 107.96 kg Mariel Chaban Other [employer] Other 01-08-2022 14:30-0400 Diastolic blood pressure 72 mm[Hg] Ulyssesal Chaban Other [employer] Other 01-08-2022 14:30-0400 Respiratory rate 20 /min Mariel Mccarthyban Other [employer] Other 01-08-2022 14:30-0400 SaO2% (BldA) [Mass fraction] 95 % Mariel Chaban Other [employer] Other 01-08-2022 14:30-0400 Systolic blood pressure 130 mm[Hg] Mariel Chaban Other [employer] Other 09-06-2021 10:00-0500 Body height 170.18 cm Mariel Mccarthyban Other [employer] Other 09-06-2021 10:00-0500 Body mass index (BMI) [Ratio] 37.59 kg/m2 Mariel Chaban Other [employer] Other 09-06-2021 10:00-0500 Body temperature 96.8 [degF] Mariel Chaban Other [employer] Other 09-06-2021 10:00-0500 Body weight 108.86 kg Mariel Chaban Other [employer] Other 09-06-2021 10:00-0500 Diastolic blood pressure 68 mm[Hg] Ulyssesal Chaban Other [employer] Other 09-06-2021 10:00-0500 Respiratory rate 20 /min Mariel Chaban Other [employer] Other 09-06-2021 10:00-0500 SaO2% (BldA) [Mass fraction] 95 % Mariel Chaban Other [employer] Other 09-06-2021 10:00-0500 Systolic blood pressure 136 mm[Hg] Mariel Chaban Other [employer] Other 07-23-2021 10:30-0400 Body height 170.18 cm Mariel Mccarthyban Other [employer] Other 07-23-2021 10:30-0400 Body mass index (BMI) [Ratio] 38.21 kg/m2 Mariel Mccarthyban Other [employer] Other 07-23-2021 10:30-0400 Body temperature 96.1 [degF] Mariel Mccarthyban Other [employer] Other 07-23-2021 10:30-0400 Body weight 110.68 kg Mariel Chaban Other [employer] Other 07-23-2021 10:30-0400 Diastolic blood pressure 78 mm[Hg] Mariel Chaban Other [employer] Other 07-23-2021 10:30-0400 Respiratory rate 20 /min Mariel Mcgraw Other [employer] Other 07-23-2021 10:30-0400 SaO2% (BldA) [Mass fraction] 95 % Mariel Mcgraw Other [employer] Other 07-23-2021 10:30-0400 Systolic blood pressure 150 mm[Hg] Mariel Mcgraw Other [employer] Other Clinical Notes 04-17-2021 to 04-01-2024 Maryann Rubalcava MD - 04/01/2024 9:00 AM Carmen Rubalcava MD - 11/11/2023 10:00 AM EST Note Date & Type Note Facility 04-01-2024 History of Present illness Narrative It was a pleasure to see Mr. Meier at the Neurosurgery [facility] at [facility]. Patient is a 62-year-old male with [...] continued back pain and stooped forward posture. Had MRI and Scoli films. Pain continues now to the head and the ear. More pain when he looks to the right. He has completed his MRI of the cervical spine and also scoliosis films and is here today to discuss further treatment options. Part of the patient's History and Physical is obtained from review of his prior records from the EMR. Constitutional: No fever or chills Respiratory: No shortness of breath or wheezing Musculoskeletal: see HPI above Neurologic: See HPI above There were no vitals filed for this visit. General: Well developed, awake/alert/oriented x3, no distress, alert and cooperative Skin: Warm and dry, no lesions, no rashes ENMT: Mucous membranes moist, no apparent injury, no lesions seen Head/Neck: Neck Supple, no apparent injury Respiratory/Thorax: Normal breath sounds with good chest expansion, thorax symmetric Cardiovascular: No pitting edema, no JVD Motor Strength: Motor strength is about 4+ by 5 involving all muscle groups. There is evident evidence of a pelt salter weakness bilaterally which is about 80% of normal. Deep tendon reflexes are bilaterally 3+ at bilateral knee jerk. Romberg sign positive. Patient has difficulty doing work 1 legged stance even for few seconds. Gait is wide-based. Tone is increased bilateral lower extremities. Muscle Bulk: Normal and symmetric in all extremities Patient is stooped forward posture Well-healed incision present in the lower back from previous surgery. There is also a scar present in the anterior neck from the previous anterior cervical discectomy and fusion that he had in the past. IMAGING: Imaging was personally reviewed with CT cervical spine showing corpectomy with plate spanning from C5-C7. There is evidence of a fracture of the plate but overall there is good solid fusion at the operative segment. The possible adjacent segment issue at the level of C7 and T1 which is very difficult to appreciate on noncontrast CT of the cervical spine. CT myelogram of the lumbar spine shows hardware spanning from L3-S1. No pseudoarthrosis is seen. Patient does have adjacent segment spinal stenosis at the level of L2-L3 and L1-L2. Even in the supine mold polisher CT for patient has a flatback deformity. MRI of the lumbar spine that he completed in November of this year was reviewed personally and shows evidence of a previous C5-7 fusion with postoperative changes but with very decompressed bronchi at that level but clear evidence of severe spinal cord compression at C3-4 and C4-5 level adjacent to the previous fusion. AP and lateral lumbar scoliosis film done recently shows evidence of flatback deformity in the lumbar spine with evidence of previous L3-S1 instrumentation and fusion along with evidence of C5-7 plating but with well aligned cervical spine. AP and lateral x-ray of the cervical spine that were ordered today shows a well aligned spine with preserved cervical lordosis and good extension. There is evidence of previous C5-7 cervical fusion with evidence of plate fracture but evidence of solid fusion though. The patient's MRI was normal outside disc and we kept the disc with us to be used on the day of surgery. ASSESSMENT AND PLAN: Patient 62-year-old male who [...] and also show a sagittal imbalance issue. Mr. Meier has symptoms such as gait imbalance, Loss of manual dexterity, Numbness in hands and/or feet along with physical examination findings with presence of Lower limb spasticity, Hyperreflexia, impaired tandem gait and Romberg sign consistent with a diagnosis of cervical myelopathy. MRI shows significant spinal cord compression and severe stenosis. The severity of cervical myelopathy is Mild (15-17) based on mJOA scale I discussed with him the fact that he has signs and symptoms of both cervical myelopathy with evidence of spinal cord compression of an on MR imaging. On top of that he also has signs or symptoms from flatback deformity of the lumbar spine. However in the setting of spinal cord compression the cervical spine I do not recommend any surgical intervention for the lumbar spine at this point. I will be more than happy to address that pathology later once we decompressed the cervical spinal cord. I discussed the natural history of degenerative cervical stenosis with the fact that the patient is at risk of gradual worsening of symptoms from persistent spinal cord compression and the potential for them to be irreversible. Considering the presence of signs and symptoms of cervical MYELOPATHY from SPINAL CORD COMPRESSION, medical necessity of surgical treatment to prevent further neurological decline was also discussed. In this case the benefit of cervical spine decompression would be the fact that he would be able to proceed with lumbar spine surgery if he proceed consider to do that in the future given the fact that he is also symptomatic from severe low back pain and has difficulty standing straight up. I clearly emphasized that while the goal of surgery would be to decompress the spinal cord so as to ARREST the progression of neurological deficits. While preexisting deficits may or may not improve after surgery; up to 70-80% of patients does shows clinically significant improvement in functional and neurological outcomes following decompression of the spinal cord in patients with cervical degenerative myelopathy the extent of which could be variable and generally depends on the severity of myelopathy, duration of deficits and age of the patient.The option of continued non-operative management was also discussed as well though not strongly recommended because of presence of signs of cervical myelopathy and presence of spinal cord compression. Pros and cons of operative versus nonoperative treatment were discussed extensively. Discussed various approaches such as anterior versus posterior and the pros and cons of either approach that included anterior cervical discectomy and fusion and the posterior approach that included laminectomy and fusion and laminoplasty. I recommended posterior cervical C3 laminectomy and C4-6 laminoplasty. I have explained the surgical procedure for CERVICAL C3 Laminectomy and C4-6 LAMINOPLASTY in detail with expected duration and extent of recovery along risks of surgery that include, but is not limited to to neck pain, postoperative hematoma, bleeding, infection, blood vessel injury or damage, nerve or spinal cord injury or damage resulting in loss of sensation, loss of bladder, bowel or sexual function and weakness/complete/paralysis, slight loss of range of motion despite the fact that laminoplasty is a motion preserving procedure, CSF leak , blindness, brachial plexus injury, failure to relieve symptoms, recurrent disease, adjacent segment disease, development of cervical kyphosis that may or may not require further surgery, need to reoperate for any other reason and general anesthesia reaction such as stroke, coma, heart attack, delirium, confusion, as well as worsening of preexisted medical conditions and any other unforeseen complication related to OR unrelated to the spinal procedure per se. I have also discussed with the patient the chances of C5 palsy and the expected course and the chances of recovery if that happens. I have also discussed with the patient the chances of C5 palsy ( about 5- 8 % ) and the expected course and the chances of recovery if that happens. Of those 5-8 % of patietns majority of patients with C5 palsy would recover within 3-6 months but 5 -10 percent of all patiens who would develop C5 palsy may not recover and may have a permament C5 palsy with resultant limitations. A Shared decision was made to proceed with surgery after involving the patient and the family in the treatment decision-making process. They clearly expressed understanding of possible the risks and benefits of surgery and the realistic expectations of surgery along with the fact that the goal of the surgery is to improve the overall functioning and quality of life and possible improvement or prevent progression of preexisting neurological deficits and not necessarily 100 % pain relief. The patient was educated and advised against activities predisposing to falls/MVC/severe trauma that may result in spinal cord injury/deficits/paralysis and instructed to watch for worsening of already existing symptoms of cervical myelopathy while awaiting surgery that we would schedule soon depending on patients desires and OR availability and should let us know or go to ED if that were to happen. It was a pleasure to participate in Mr. Meier clinical care. All questions were answered to him satisfaction and he explained understanding of the further treatment plan. Maryann Rubalcava MD, [facility] [employer] Specialist of Neurological Surgery [facility] [employer] Attending Surgeon Director - Minimally Invasive Spine Surgery [place], [place] ---Some of this note was completed using [employer] voice recognition technology and sometimes the software misinterprets words. This may include unintended errors with respect to translation of words, typographical errors or grammar errors which may not have been identified prior to finalization of the chart note. Please take this into account when reading this note--- documented in this encounter [facility] Work Phone: 11-11-2023 History of Present illness Narrative It was a pleasure to see Mr. Meier at the Neurosurgery Spine Clinic at [facility]. Patient is a 62-year-old male with [...] L2-L3 and L1-L2. Even in the supine mold polisher CT for patient has a flatback deformity. [...] All questions were answered. Maryann Rubalcava MD, [facility] [employer] Specialist of Neurological Surgery [facility] [employer] Attending Surgeon Director - Minimally Invasive Spine Surgery [place], [place] Some of this note was completed using [employer] voice recognition technology and sometimes the software misinterprets words. This may include unintended errors with respect to translation of words, typographical errors or grammar errors which may not have been identified prior to finalization of the chart note. Please take this into account when reading this note documented in this encounter [facility] Work Phone: 10-14-2023 Evaluation note Encounter [...] region with neurogenic claudication (ICD-10 - M48.062) [employer] [employer] Other 12-05-2023 NoteProcedure Performed by: Savanna Mcclain M.D. Procedure: Placement of CallmyName Impulse Generator Battery under fluoroscopic guidance *Battery [...] signed by Savanna Mcclain MD 09/30/23 13:12 [facility] 09-30-2023 NoteHistory of Present Illness The patient [...] signed by Savanna Mcclain MD 09/30/23 13:10 [facility] 09-16-2023 Evaluation note* Encounter Date Diagnosis Assessment [...] weeks. Aug, Lumbar radiculopathy (ICD-10 - M54.16) [employer] Other 08-17-2023 Evaluation note* Encounter Date Diagnosis Assessment Notes Treatment Notes Treatment Clinical Notes May, Gastroesophageal ref lux disease, unspecified whether esophagitis present (ICD-10 - K21.9) [employer] Other 05-31-2023 NoteHNO ID: [id number] Author: Donny ePralta APRN.FRAME HAND Service: ? Author Type: Nurse Practitioner [...] 2 to 3 weeks time. Donny Peralta APRN.FRAME HAND CC: Josh Ray [facility]05-31-2023 History of Present illness Narrative* Donny Peralta APRN.FRAME HAND - 03/26/2023 11:14 AM EDT Mr. [...] CC: Josh Melvin DO [facility]* Encounter Date Diagnosis Assessment Notes Treatment Notes Treatment Clinical Notes Mar, Obstructive sleep ap dee (ICD-10 - G47.33) Please get a compliance report now and before next visit Mar, Gastroesophageal ref lux disease, unspecified whether esophagitis present (ICD-10 - K21.9) Mar, Lung nodule (ICD-10 - R91.1) [employer] Other 03-15-2022 Evaluation note* Encounter Date Diagnosis [...] be after his CT in 1 year [employer] Other 01-14-2022 Evaluation note* Encounter Date Diagnosis Assessment Notes Treatment Notes Treatment Clinical Notes Oct, Encounter for immunization (ICD-10 - Z23) Patient presents for COVID-19 vaccination BOOSTER. Pre-screening form answers evaluated with patient. Patient denies current illness or allergic reaction to component of COVID-19 vaccine. Patient provided with current copy of EUA. [employer] Other 09-27-2021 Evaluation note* Encounter Date Diagnosis Assessment Notes Treatment Notes Treatment Clinical Notes Jun, Lung nodule (ICD-10 - R91.1) Jun, Chronic cough (ICD-1 0 - R05) Jun, Obstructive sleep ap dee (ICD-10 - G47.33) Jun, Gastroesophageal ref lux disease, unspecified whether esophagitis present (ICD-10 - K21.9) [employer] Other 06-24-2021 NotePatient: KOKO MEIER Age: 60 [...] mg, 1 tab(s), Oral, BID, 0 [facility]ill(s) [facility]Result Comment: Electronically Signed By: Kwame Yang DO\.br\Date and Time Signed: 04/19/21 12:56 EDT 04-17-2021 [id number]:127[facility]Evaluation noteNo InformationNort [employer] [facility] [employer] Other Evaluation noteNort [employer] Other Evaluation noteNo assessment information available [facility] Work Phone: Evaluation note* Diagnosis Laryngeal candidiasis- Primary Other candidiasis of other specified sites Glossitis Oral candidiasis Candidiasis of mouth Hoarseness of voice Dysphonia History of alcohol abuse Nondependent alcohol abuse, in remission [facility] Diagnosis Cervical myelopathy (CMS/HCC)- Primary Cervical spondylosis with myelopathy Sagittal plane imbalance Other curvatures of spine associated with other conditions 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 Lumbar stenosis with neurogenic claudication documented in this encounter [facility] Work Phone: Evaluation note* Diagnosis Onset Date Resolution Status Cervical stenosis of spine a cute History of fusion of cervical spine acute History of lumbar fusion acu te Neurogenic claudication due to lumbar spinal stenosis acute [facility] Work Phone: Evaluation note* Diagnosis Cervical spinal 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 segment disease 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 procedure- Primary Cervical myelopathy (Multi) Cervical spondylosis with myelopathy documented in this encounter [facility] Work Phone: Evaluation note* Diagnosis Cervical myelopathy (Multi) Cervical spondylosis with myelopathy documented in this encounter [facility] Work Phone: History general Narrative - [...] finger 10/2019 Hospitalization History see sx history [facility] [facility] [employer] Other History general Narrative - ReportedNort [employer] Other History general Narrative - Reported* Type [...] finger 10/2019 Hospitalization History see sx history [employer] Other Hospital Discharge instructions Additional Instructions Please call Dr. Becker' office to reschedule your surgery.[facility] Work Phone: Hospital Discharge instructions Additional Instructions 1. No driving if taking narcotic pain medication. 2. No lifting more than 20 pounds for 3 weeks. 3. May shower.[facility] Work Phone: Hospital Discharge instructions Additional Instructions 1. No driving if taking narcotic pain medication. 2. No lifting more than 20 pounds for 4 weeks. 3. May shower. 4. Can use abdominal binder as needed for comfort.[facility] Work Phone: Progress note Author Yogesh Becker [facility] October 02, 2023 9:46am Note Date/Time October 02, 2023 9 :46am [facility] [address] [place] [address] Progress Note Signed Patient: Koko Meier MR#: [id number] : 1960 Acct:[id number] Age/Sex: 62 / M Adm Date: 3 Loc: [place] Room: Type: [facility] Attending Dr: Yogesh Becker MD Copies to: ~ Date of Service: 10/02/2023 Progress Narrative Note PROGRESS NOTE Progress Note: Patient's tox screen today is positive for cocaine. Surgery will be canceled. Patient is told to call the office this afternoon to reschedule the surgery. Documented By: Yogesh Becker MD 10/02/2345 Signed By: <Electronically signed by MD Yogesh Becker> 10/02/23945 [facility] Work Phone: Summary Purpose Family History No [...] z79.89;Z12.5;R25.1;R41.3 r41.3 g95.9 ventral hernia ventral hernia Chief Complaint ventral hernia ventral hernia discuss surgery m43.8x9 Reason for Visit Cervical stenosis of spine History of fusion of cervical spine History of lumbar fusion Neurogenic claudication due to lumbar spinal stenosis Reason for Referral Specialty Diagnoses / Procedures Referred By Bala t Referred To Contact Radiology Diagnoses Cervical myelopathy (CMS/HCC) Procedures MR cervical spine [place] [id number] [address] Department of Neurological Surgery [place] [id number] Referral ID Status Reason Start Date Expiration Date Visits Requested Visits Authorized Pending Review Perform Procedure 11/11/2023 11/10/2024 1 1 Specialty Diagnoses / Procedures Referred By Bala phillips Referred To Contact Radiology Diagnoses Sagittal plane imbalance Procedures X-ray scoliosis 2 View (NON EOS) [place] [address] [address] Department [place] [address] Referral ID Status Reason Start Date Expiration Date Visits Requested Visits Authorized Authorized Perform Procedure 11/11/2023 11/10/2024 1 1 Reason surgical consult Diagnosis 1 Lumbar myelopathy (G 95.9) [facility] Referring Provider First Name Karime Referring Provider Last Name Marleni Referring Provider Specialty Nurse Pract itioner Referred Organization [facility] Referred Provider MARYANN RUBALCAVA Referred Address [address] [place] [address],[place], [place],[address] Referred Provider Specialty Neurosurgery Referral Priority Routine General Notes Juana Scanlon 03:14:14 PM >received today, holding referral until office note is locked Juana Scanlon 10/16/2023 08:38:30 AM >note not locked yet Reason evaluate and treat Diagnosis 1 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) Referral Organization [facility] Referring Provider First Name Karime Referring Provider Last Name Marleni Referring Provider Specialty Nurse Pract itioner Referred Organization [facility] Referred Address [address],[place], [place],[address] Referred Provider Specialty Physical The rapist Referral Priority Routine Additional Source Comments (unrecognized sect ion and content) No Status Records FoundNo Status Records FoundNo Status Records FoundNo Status Records FoundNo Status Records FoundNo Status Records FoundNo Status Records Found INFORMATION SOURCE (unrecogn ized section and content) DATE CREATED AUTHOR 04/27/[address] DATE CREATED AUTHOR AUTHOR'S ORGANIZ ATION 04/15/2023 [facility] DATE CREATED AUTHOR AUTHOR'S ORGANIZ ATION 03/21/2024 [facility] DATE CREATED AUTHOR AUTHOR'S ORGANIZ ATION 04/02/2024 [facility] DATE CREATED AUTHOR AUTHOR'S ORGANIZ ATION 04/03/2024 [facility] DATE CREATED AUTHOR AUTHOR'S ORGANIZ ATION 04/05/2024 [facility] DATE CREATED AUTHOR AUTHOR'S ORGANIZ ATION 04/10/2024 [facility] EPIC REASON FOR VISIT (unrecogniz ed section and content) Reason Comments Mouth lesion on left side Specialty Diagnoses / Procedures Referred By Contact Referred To Contact Ent - Otolaryngology / ENT-OTOLARYNGOLOGY Diagnoses Mouth Lesion on Left side of jaw Procedures NEW [facility] PATIENT Josh Melvin, DO [address] [place] [address] Donny Peralta, DOCUMENT CONTROL SUPERVISOR.FRAME HAND [address] [place] [address] Referral ID Status Reason Start Date Expiration Date V isits Requested Visits Authorized [id number] Authorized 03/25/2023 10/26/2023 99 99 Reason Comments Neck Pain Back Pain Reason Comments Back Pain Specialty Diagnoses / Procedures Referred By Bala phillips Referred To Contact Radiology Diagnoses Cervical myelopathy (Multi) Procedures XR cervical spine complete 4-[place] [address] [address] Department [place] [address] Referral ID Status Reason Start Date Expiration Date Visits Requested Visits Authorized [id number] Authorized Perform Procedure 04/01/2024 04/01/2025 1 1 Care Teams (unrecognized sec tion and content) Team Status: Inactive Member Role Status Dates Josh Olegario , DO Primary Care Provider, Attending Dante peter Active Team Status: Active Member Role Status Dates Josh Rodting , DO Primary Care Provider Active Team [...] Active Team Status: Inactive Member Role Status Joshana Velascojayleen , DO Primary Care Provider Active Errol Humphrey MD Attending Provider Active Team Status: Inactive Member Role Status Dates Joshana Velascoting , DO Primary Care Provider Active Nery Casanova [facility]- Emergency Provider Active Team Status: [...] January 19, 2024 End: January 19, 2024 Team Status: Inactive Member Role Status Dates Josh Melvin DO Primary Care Provider Active Start: March 11, 2024 End: March 11, 2024 Lyndon Nation MD Attending Provider Active Star t: March 11, 2024 End: March 11, 2024 Team Status: Inactive Member Role Status Dates Josh Melvin DO Primary Care Provider Active Start: March 31, 2024 End: March 31, 2024 Maryann Rubalcava MD Attending Provider Active Start: March 31, 2024 End: March 31, 2024 Alemite Operator Relationship Specialty Start Date End Date Josh Melvin DO [address] [place] [address] PCP - General Family Medicine 04/01/24 Alemite Operator Relationship Specialty Start Date End Date Josh Melvin DO [address] [place] [address] PCP - General Family Medicine 04/01/24 Goals (unrecognized section and content) Goals may be documented in a n alternate section Source Comments (unrecognize d section and content) In the event this informatio n is protected by the Federal Confidentiality of Alcohol and Drug Abuse Patient Records regulations: The Federal rules restrict any use of the information to criminally investigate or prosecute any alcohol or drug abuse patient.[facility] FOR RECORDS PERTAINING TO PATIENTS WHO ARE [...] BE BASED ON THE PRIMARY CLINICAL RECORDS. [facility]. provides no warranty or guarantee of the accuracy or completeness of information in this document.
[2024-04-12 07:03] VITALS: BP 115/65; PULSE 79; TEMP 36.7; O2SAT 93
[2024-04-12 07:11] LABS: Glucometer 212 mg/dL (74-106)
[2024-04-12] MEDS: 0.9 % SODIUM CHLORIDE 500 ML IV (07:15)
[2024-04-12] MEDS: BUPIVACAINE HCL 0.25% PF 25 MG/10 ML VIAL INJ (08:06)
[2024-04-12] MEDS: DEXAMETHASONE SOD PHOS 10 MG/ML VIAL INJ (08:06)
[2024-04-12] MEDS: LIDOCAINE HCL 2% 400 MG/20 ML MDV 15 ML INJ (08:07)
--- NOTE | 2024-04-12 08:16 | P.ON_ITS ---
Date of procedure: 04/12/24 Pre-op diagnosis: Pain due to cervical spondylosis without myelopathy Post-op diagnosis: same as pre-op Procedure: Procedure: Right C3-4, 4-5 radiofrequency ablation Medications: Bupivacaine 0.25% 2cc, dexamethasone 10mg, lidocaine 2% 5cc The patient was seen and examined in the preoperative holding area.? The site was marked.? Written informed consent was obtained and placed on the chart.? The patient was brought to the medical procedure unit and placed in the prone position.? A timeout was completed verifying correct patient, procedure, positioning, and special requirements.? The skin overlying the target points, the designated medial branch, were prepped and draped in the usual sterile fashion.? The target point was achieved with a 20-gauge 15 cm with a 10 mm curved active tip radiofrequency cannula under direct fluoroscopic visualizatio n.? The needle was inserted at level C3 on the right side. Needle tip position was confirmed with lateral fluoroscopic position.? Motor stimulation was carried out at 2 Hz up to 5 volts with the absence of extremity activity.? This was repeated at level C4, 5 on right side.?? Sensory stimulation was carried out.? Concordant pain was realized at the above- mentioned sites.? Then radiofrequency lesioning was carried out times 90 seconds at 80 degrees times 2 lesions at each level.? The radiofrequency probe was removed prior to cannula removal.? The above-mentioned injectate was placed in 1 mL increments.? The needle was removed.? Insertion sites were covered.? The patient was taken to the postoperative recovery area and monitored for an appropriate length of time before being found suitable for discharge in the company of a responsible adult. Anesthesia: Moderate Sedation Surgeon: Savanna Mcclain Pathology: none sent Condition: stable Disposition: no change
[2024-04-12 08:19] VITALS: BP 155/88; PULSE 91; TEMP 37; O2SAT 94
[2024-04-12 08:26] VITALS: BP 146/81; PULSE 84; TEMP 37; O2SAT 92
== END 2024-04-12 08:38 | disposition home or self-care (01) ==
LOC: SURGOUT 06:43
PROVIDERS: PCP Family Medicine; Visit Provider Anesthesiology
DX: M47.812 Spondylosis without myelopathy or radiculopathy, cervical region (principal); E78.5 Hyperlipidemia, unspecified; I10 Essential (primary) hypertension; G47.33 Obstructive sleep apnea (adult) (pediatric); E11.9 Type 2 diabetes mellitus without complications; Z79.4 Long term (current) use of insulin; Z79.84 Long term (current) use of oral hypoglycemic drugs
CPT/HCPCS: 36415; 64633; 64634; 82948; J0665; J1100; J2704

== ENCOUNTER 2024-04-26 06:56 | Day surgery (SDC) | payer MEDICARE, SELFPAY ==
--- OUTSIDE RECORDS SUMMARY | 2024-04-26 07:00 | XMS_ITS | CCD ---
Author Organization [facility] Care Team Providers Care Rent Collector Name Role Phone Mariel Mcgraw Unavailable Courtney Espino Unavailable Bunting, DO Josh Primary Care Provider Flip Diamond Attending Provider Alexis Abdi Unavailable Bunting, DO Josh Primary Care Provider Bunting, DO Josh Attending Provider MD Yunier Ariza Attending Provider [phone] Bunting, DO Josh Primary Care Provider [...] Bunting, DO Josh Primary Care Provider Edilberto VAMP MARKER- Nery Hankins Emergency Provider [phone] Bunting, DO Josh Attending Provider MD Savanna Mcclain Attending Provider Bunting, DO Josh Primary Care Provider Edilberto, VAMP MARKER- Nery E Emergency Provider [phone] Bunting, DO Josh Attending Provider [phone] MD Savanna Mcclain Attending Provider MD Yogesh Becker Attending Provider aKrime Nguyen Unavailable Bunting, DO Josh Primary Care Provider Unavailable Primary Care Provider Unavailabl e Bunting, DO Josh Primary Care Provider Bunting, DO Josh Attending Provider MD Oliver Kerr Referring Provider MD Oliver Kerr Attending Provider MD Maryann Rubalcava Attending Provider Bunting, DO Josh Primary Care Provider MD Yogesh Becker Attending Provider [phone] Bunting, DO Josh Attending Provider [phone] MD Oliver Kerr Referring Provider MD Oliver Kerr Attending Provider MD Maryann Rubalcava Attending Provider Bunting, DO Josh Primary Care Provider MD Yogesh Becker Attending Provider [phone] MD Maryann Rubalcava Attending Provider Bunting DO, Josh Ray Primary Care Provider KASMARYANN FREEMAN K Attending Unavailable KASLIWAL, MARYANN K Referring Unavailable KASLIWAL, MARYANN K Admitting Unavailable KASLIWAL, MARYANN K Attending Unavailable BUNTING, JOSH RAY Primary Care Unavailable KASLIWAL, MARYANN K Attending Unavailable BUNTING, JOSH RAY Primary Care Unavailable KASLIWAL, MARYANN K Referring Unavailable BUNTING, JOSH RAY Primary Care Unavailable KasraswalMaryann K Attending Unavailable Kasliwal, Maryann K Admitting [...] Josh Attending Unavailable Bunting, Josh Admitting Unavailable [place], Oliver Referring Unavailable Bunting, Josh Attending Unavailable Bunting, Josh Admitting Unavailable Bunting, Josh Primary Care Unavailable Bunting, Josh Primary Care Unavailable [place], Oliver Attending Unavailable [place], Oliver Admitting Unavailable Bunting, Josh Primary Care Unavailable Kasliwal, Maryann K Admitting Unavailable Kasliwal, Maryann K Attending Unavailable Giedraitis MD, Andrius Vytjim Attending Unavailable Giedraitis MD, Andrius Vytautas Attending Unavailable Giedraitis MD, Andrius Vytautas Attending Unavailable Giedraitis MD, Andrius Vytautas Attending Unavailable Giedraitis MD, Andrius Vytautas Attending Unavailable Giedraitis MD, Andrius Vytautas Attending Unavailable Giedraitis MD, Andrius Vytautas Attending Unavailable Giedraitis MD, Andrius Vytautas Attending Unavailable Giedraitis MD, Andrius Vytautas Attending Unavailable BECKER V, YOGESH Attending Unavailable BUNTING, JOSH R Referring Unavailable BECKER V, YOGESH Attending Unavailable IMTIAZ ZAIDI Attending Unavailable NGUYEN KARIME Referring Unavailable FEROZ PATEL Attending Unavailable JOSH MELVIN Referring Unavailable YOGESH MORRIS Attending Unavailable YOGESH MORRIS Attending Unavailable FEROZ PATEL Attending Unavailable YOGESH MORRIS Attending Unavailable FEROZ PATEL Attending Unavailable BRYCE URENA Attending Unavailable JOSH MELVIN Referring Unavailable Medications Current Medications Medication Drug [...] Comment on above: take 1 capsule by [facility] twice a day Oral [...] oral tablet (16 sources) Muscle Relaxant Start: 023 take 1 tablet by mouth three times daily cyclobenzaprine (Flexeril) 10 mg tablet Take 1 tablet (10 mg) by mouth 3 times a day. 02/07/2023 Active take 1 tablet by [facility] every twenty-four hours Cyclobenzaprine HCl 10 MG [...] Active Start: 04-20-2019 take 1 capsule by [facility] twice daily Duloxetine (Cymbalta) 60 mg Capsule,Delayed Release(Dr/Ec) Active 60 MG PO Twice daily April 20, 2019 12:00am Start: 04-20-2019 Duloxetine (Cy mbalta) 60 mg Capsule,Delayed Release(Dr/Ec) Active 30 MG PO Twice daily April 20, 2019 12:00am take 1 capsule by mo [facility] every twenty-four hours DULoxetine HCl 60 MG [...] mouth. FreeStyle René reader (FreeStyle René 2 [place]) misc (3 sources) Start: 07-25-2023 End: 07-24-2024 FreeStyle René reader (FreeStyle René 2 [place]) misc 1 each by Does not apply route every 14 (fourteen) days. 07/25/2023 07/24/2024 Active Start: 07-25-2023 End: 07-24-2024 FreeStyle René reader (Free Style René 2 [place]) misc 1 each by Does not apply route every 14 (fourteen) days. 0 07/25/2023 07/24/2024 Active gabapentin 600 mg oral tablet (20 sources) Anti-epileptic Agent Start: 09-23-2023 take 1200 mg by mouth three times daily Gabapentin Active 1200 MG PO Three times daily September 23, 2023 1:00am Start: 04-20-2019 take 2 capsules by m [facility] three times daily gabapentin (Neurontin) 600 mg [...] on above: Take 1 capsule by mo [facility]. hydroCHLOROthiazide 12.5 mg / lisinopril 20 mg oral tablet (20 sources) Thiazide Diuretic, Angiotensin Converting Enzyme Inhibitor Start: 09-23-20 23 take 1 tablet by mouth once daily in the morning Lisinopril-Bellamy chlorothiazide Active 1 TAB PO Every morning [...] site unspecified] 11-11-2023 Chronic Other acquired deformities (3 sources) Other specified deforming dorsopathies, site unspecified; [...] unspecified; Translations: [Disease of spinal cord, unspecified (Multi)] Onset: 11-11-2023 Chronic Other nervous system disorders [...] displacement, lumbar region] Onset: 12-22-2018 Chronic Unclassified (2 sources) Patient has spine surgery [...] sources) Long-term current use of insulin; 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] Episodic Other connective tissue disease (3 sources) Full thickness rotator cuff tear; Translations: [Complete rotator cuff tear or rupture of unspecified shoulder, not specified as traumatic] Onset: 02-28-2023 4 Episodic Other connective tissue disease (4 sources) [...] Onset: 02-28-2023 08-06-2023 Episodic Unclassified (2 sources) Onset: 04-01-2024 04-01-2024 Results Test Name Value Interpretation Reference Range Facility XR CERVICAL SPINE COMPLETE 4 -5 VIEWSon 04-01-2024 XR CERVICAL SPINE COMPLETE 4-5 VIEWS Interpreted By: Lety Pickard, STUDY: XR CERVICAL SPINE COMPLETE 4-5 VIEWS 04/01/2024 10:20 am INDICATION: Signs/Symptoms:neck pain and cervical myelopathy COMPARISON: None available. ACCESSION NUMBER(S): [id number] ORDERING CLINICIAN: MARYANN RUBALCAVA TECHNIQUE: AP and [...] Lety Pickard 04/02/2024 7:21 PM Dictation workstation: [id number] [facility] Comment on above: Order Comment: Jem hankins perform upright AP, LATERAL views with FLEXION and EXTENSION films. ( Total 4 views ) XR scoliosis surveyon 2023 XR scoliosis survey [facility] Main [address] [place] [address] XRay Report Signed Patient: Koko Meier MR#: [id number] : 1960 Acct:[id number] Age/Sex: 63 / M ADM Date: 03/31/24 Loc: XD Room: Type: [facility] Attending Dr: Maryann Rubalcava MD Copies to: [...] Bruce Ortiz M.D.03/31/2024 6:16 PM Dictation Location: [place] [address] Transcribed By: [facility] 03/31/241815 Dictated By: Bruce Ortiz II, MD 03/31/241811 Signed By: 03/31/241815 Normal [facility] Amphetamine Screen Ql (U)Ord ered By: Giuseppe Desouza on 01-19-2024 Amphetamines Ql (U) Negative Negative [facility] Barbiturates [Presence] in U rine by Screen methodOrdered By: Giuseppe Desouza on 01-19-2024 Barbiturates Screen Ql (U) Negative Negative [facility] Benzodiazepines Screen Ql (U )Ordered By: Giuseppe Desouza on 01-19-2024 Benzodiazepines Ql (U) Negative Negative [facility] Benzoylecgonine [Presence] i n Urine by Screen methodOrdered By: Giuseppe Desouza on 01-19-2024 Benzoylecgonine Screen Ql (U) Negative Negative [facility] Cannabinoids [Presence] in U rine by Screen methodOrdered By: Giuseppe Desouza on 01-19-2024 Cannabinoids Screen Ql (U) Positive Negative [facility] Comment on above: These are unconfirme d results and should not be used for legal purposes. Drug Cut-Off Concentration: AMPH 1000 ng/mL ZE 200 ng/mL DUANE 200 ng/mL COCM 300 ng/mL OP 300 ng/mL PCP 25 ng/mL THC 20 ng/mL Capillary blood glucose ezra urement by glucometer (mass/volume)Ordered By: Yogesh Becker on 01-19-2024 Glucose [Mass/Vol] 160 mg/dL Normal [facility] Comment on above: Random Glucose Refer ence Range is dependent on time and content of last meal. Glucose of more than 200 mg/dL in a nonstressed, ambulatory subject supports the diagnosis of Diabetes Mellitus. Result Comment: [place] om Glucose Reference Range is dependent on time and content of last meal. Glucose of more than 200 mg/dL in a nonstressed, ambulatory subject supports the diagnosis of Diabetes Mellitus. PERFORMED BY: [place] [address] PATHOLOGIST JEWEL BEARING DRILLER CLEVE CANDELARIA M.D. Performed By: #### T SH3, [id number] #### [address] #### METH #### [facility] , Drug Screen,Urineon 01-19-20 24 Amphetamine Screen,Urine Negative Normal Negative [facility] Comment on above: Order Comment: Comme nt stat when patient gets to prep Performed By: #### T SH3, [id number] #### [address] #### METH #### [facility] , Barbiturate Screen,Urine Negative Normal Negative [facility] Comment on above: Order Comment: Comme nt stat when patient gets to prep Performed By: #### T SH3, [id number] #### [place] [address] [place] #### METH #### [facility] , Benzodiazepines Screen,Urine Negative Normal Negative [facility] Comment on above: Order Comment: Comme nt stat when patient gets to prep Performed By: #### T SH3, [id number] #### [place] [address] [place] #### METH #### [facility] , Cannabinoid Screen,Urine Positive High Negative [facility] Comment on above: Order Comment: Comme nt stat when patient gets to prep Result Comment: Thes e are unconfirmed results and should not be used for legal purposes. Drug Cut-Off Concentration: AMPH 1000 ng/mL ZE 200 ng/mL DUANE 200 ng/mL COCM 300 ng/mL OP 300 ng/mL PCP 25 ng/mL THC 20 ng/mL PERFORMED BY: [place] [address] PATHOLOGIST JEWEL BEARING DRILLER CLEVE CANDELARIA M.D. Performed By: #### T SH3, [id number] #### [address] #### METH #### [facility] , Cocaine Screen,Urine Negative Normal Negative [facility] Comment on above: Order Comment: Comme nt stat when patient gets to prep Performed By: #### T SH3, [id number] #### [place] [address] [place] #### METH #### [facility] , Opiate Screen,Urine Negative Normal Negative [facility] Comment on above: Order Comment: Comme nt stat when patient gets to prep Performed By: #### T SH3, [id number] #### [place] [address] [place] #### METH #### [facility] , Phencyclidine Screen,Urine Negative Normal Negative [facility] Comment on above: Order Comment: Comme nt stat when patient gets to prep Performed By: #### T SH3, [id number] #### [place] [address] [place] #### METH #### [facility] , Glucose Poct Glucometerson 0 01-19-2024 Commemt1 Glu2: Cleaned Meter Normal [facility] Comment on above: Result Comment: PERF ORMED BY: [place] [phone] PATHOLOGIST JEWEL BEARING DRILLER CLEVE CANDELARIA M.D. Performed By: #### G LULS #### Point of Care testing , Glucose [Mass/Vol] 162 mg/dL Normal [facility] Comment on above: Result Comment: [place] om Glucose Reference Range is dependent on time and content of last meal. Glucose of more than 200 mg/dL in a nonstressed, ambulatory subject supports the diagnosis of Diabetes Mellitus. Performed By: #### G LULS #### Point of Care testing , Commemt1 Glu2: Cleaned Meter Normal [facility] Comment on above: Result Comment: PERF ORMED BY: [place] [address] PATHOLOGIST JEWEL BEARING DRILLER CLEVE CANDELARIA M.D. Performed By: #### T SH3, [id number] #### [address] #### METH #### [facility] , Glucose [Mass/Vol] 250 mg/dL Normal [facility] Comment on above: Result Comment: [place] om Glucose Reference Range is dependent on time and content of last meal. Glucose of more than 200 mg/dL in a nonstressed, ambulatory subject supports the diagnosis of Diabetes Mellitus. Performed By: #### T SH3, [id number] #### [address] #### METH #### [facility] , No Panel InformationOrdered By: Yogesh Becker on 01-19-2024 Bedside Glucose Comment Glu2: cleaned meter [facility] Opiates [Presence] in Urine by Screen methodOrdered By: Giuseppe Desouza on 01-19-2024 Opiates Screen Ql (U) Negative Negative [facility] Phencyclidine Screen Ql (U)O rdered By: Giuseppe Desouza on 01-19-2024 Phencyclidine Ql (U) Negative Negative [facility] Automated basophil %Ordered By: Yogesh Becker on 01-12-2024 Basophils/100 WBC (Bld) 0.9 % Normal . [facility] Comment on above: Performed By: #### C BC, BMP #### [address] Automated basophil countOrde red By: Yogesh Becker on 01-12-2024 Basophils (Bld) [#/Vol] 0.1 10*3/uL Normal 0.0-0.2 [facility] Comment on above: Result Comment: PERF ORMED BY: [place] [address] PATHOLOGIST JEWEL BEARING DRILLER CLEVE CANDELARIA M.D. Performed By: #### C BC, BMP #### [address] Automated blood monocyte cou ntOrdered By: Yogesh Becker on 01-12-2024 Monocytes (Bld) [#/Vol] 0.4 10*3/uL Normal 0.0-0.8 [facility] Comment on above: Performed By: #### C BC, BMP #### [address] Automated eosinophil %Ordere d By: Yogesh Becker on 01-12-2024 Eosinophils/100 WBC (Bld) 3.9 % Normal . [facility] Comment on above: Performed By: #### C BC, BMP #### [address] Automated eosinophil countOr dered By: Yogesh Becker on 01-12-2024 Eosinophils (Bld) [#/Vol] 0.3 10*3/uL Normal 0.0-0.45 [facility] Comment on above: Performed By: #### C BC, BMP #### [address] Automated monocyte %Ordered By: Yogesh Becker on 01-12-2024 Monocytes/100 WBC (Bld) 5.2 % Normal . [facility] Comment on above: Performed By: #### C BC, BMP #### [address] Automated neutrophil %Ordere d By: Yogesh Becker on 01-12-2024 Neutrophils/100 WBC (Bld) 73.3 % Normal . [facility] Comment on above: Performed By: #### C BC, BMP #### [address] Basic Metabolic Panelon 12-25 GFR/1.73 sq M.predicted MDRD (S/P/Bld) [Vol rate/Area] mL/min/{1.73_m2} Normal [facility] Comment on above: Performed By: #### C BC, BMP #### [address] Calcium [Mass/volume] in Ser um or PlasmaOrdered By: Yogesh Becker on 01-12-2024 Calcium [Mass/Vol] 9.3 mg/dL Normal 8.6-10.3 [facility] Comment on above: Result Comment: PERF ORMED BY: [place] [address] PATHOLOGIST JEWEL BEARING DRILLER CLEVE CANDELARIA M.D. Performed By: #### C AMAIRANI, BMP #### [address] Carbon dioxide, total [Moles /volume] in Serum or PlasmaOrdered By: Yogesh Becker on 01-12-2024 CO2 [Moles/Vol] 33.8 mmol/L High 21.0-31.0 [facility] Comment on above: Performed By: #### C BC, BMP #### [place] [address] [place] Chloride [Moles/volume] in S raffi or PlasmaOrdered By: Yogesh Becker on 01-12-2024 Chloride [Moles/Vol] 98 mmol/L Normal 98-107 [facility] Comment on above: Performed By: #### C BC, BMP #### [address] Complete Blood Count Auto Di ffon 01-12-2024 Mean Corpuscular HGB Conc 33.1 g/dL Normal 32.5-35.6 [facility] Comment on above: Performed By: #### C BC, BMP #### [facility] [address] NRBC% 0.1 /100{WBC} Normal 0-0.5 [facility] Comment on above: Performed By: #### C BC, BMP #### [facility] [address] Creatinine [Mass/volume] in Serum or PlasmaOrdered By: Yogesh Becker on 01-12-2024 Creatinine [Mass/Vol] 0.82 mg/dL Normal 0.70-1.30 [facility] Comment on above: Performed By: #### C BC, BMP #### [address] Erythrocyte distribution wid th [Ratio] by Automated countOrdered By: Yogesh Becker on 01-12-2024 Erythrocyte distribution width (RBC) [Ratio] 14.2 % Normal 12.0-14.8 [facility] Comment on above: Performed By: #### C BC, BMP #### [address] Erythrocytes [#/volume] in B lood by Automated countOrdered By: Yogesh Becker on 01-12-2024 RBC (Bld) [#/Vol] 5.21 10*6/uL Normal 3.90-5.60 [facility] Comment on above: Performed By: #### C BC, BMP #### [address] Glucose [Mass/volume] in Ser um or PlasmaOrdered By: Yogesh Becker on 01-12-2024 Glucose [Mass/Vol] 281 mg/dL High 70-100 [facility] Comment on above: ADA recommended refe rence rangeRandom Glucose Reference Range is dependent on time and content of last meal. Glucose of more than 200 mg/dL in a nonstressed, ambulatory subject supports the diagnosis of Diabetes Mellitus. Result Comment: [place] om Glucose Reference Range is dependent on time and content of last meal. Glucose of more than 200 mg/dL in a nonstressed, ambulatory subject supports the diagnosis of Diabetes Mellitus. ADA recommended reference range Performed By: #### C AMAIRANI, BMP #### [address] Hematocrit [Volume Fraction] of Blood by Automated countOrdered By: Yogesh Becker on 01-12-2024 Hematocrit (Bld) [Volume fraction] 50.5 % High 38.8-50.0 [facility] Comment on above: Performed By: #### C BC, BMP #### [address] Hemoglobin [Mass/volume] in BloodOrdered By: Yogesh Becker on 01-12-2024 Hemoglobin (Bld) [Mass/Vol] 16.7 g/dL Normal 13.0-17.0 [facility] Comment on above: Performed By: #### C AMAIRANI, BMP #### [address] Leukocytes [#/volume] correc charanjit for nucleated erythrocytes in Blood by Automated counOrdered By: Yogesh Becker on 01-12-2024 WBC corrected for nucl RBC Auto (Bld) [#/Vol] 8.5 10*3/uL 4.1-10.5 [facility] Leukocytes [#/volume] in Blo od by Automated countOrdered By: Yogesh Becker on 01-12-2024 WBC (Bld) [#/Vol] 8.5 10*3/uL Normal 4.1-10.5 [facility] Comment on above: Performed By: #### C BC, BMP #### [place] [address] [place] Lymphocytes [#/volume] in Bl ood by Automated countOrdered By: Yogesh Becker on 01-12-2024 Lymphocytes (Bld) [#/Vol] 1.4 10*3/uL Normal 1.00-4.8 [facility] Comment on above: Performed By: #### C BC, BMP #### [place] [address] [place] Lymphocytes/100 leukocytes i n Blood by Automated countOrdered By: Yogesh Becker on 01-12-2024 Lymphocytes/100 WBC (Bld) 16.7 % Normal . [facility] Comment on above: Performed By: #### C AMAIRANI, BMP #### [facility] [address] [place] [address] MCH [Entitic mass] by Automa charanjit countOrdered By: Yogesh Becker on 01-12-2024 MCH (RBC) [Entitic mass] 32.1 pg Normal 27.5-35.2 [facility] Comment on above: Performed By: #### C AMAIRANI, BMP #### [address] MCHC Auto (RBC) [Mass/Vol]Or dered By: Yogesh Becker on 01-12-2024 MCHC (RBC) [Mass/Vol] 33.1 g/dL 32.5-35.6 [facility] MCV [Entitic volume] by Auto mated countOrdered By: Yogesh Becker on 01-12-2024 MCV (RBC) [Entitic vol] 96.9 fL Normal 83.5-101 [facility] Comment on above: Performed By: #### C AMAIRANI, BMP #### [facility] [address] [place] [address] Neutrophils [#/volume] in Bl ood by Automated countOrdered By: Yogesh Becker on 01-12-2024 Neutrophils (Bld) [#/Vol] 6.2 10*3/uL Normal 1.8-7.7 [facility] Comment on above: Performed By: #### C AMAIRANI, BMP #### [facility] [address] [place] [address] No Panel InformationOrdered By: Yogesh Becker on 01-12-2024 Estimated GFR (CKD-EPI) > 60.0 mL/Min [facility] Creatinine Clearance (Chem N/A [facility] Nucleated erythrocytes [Pres ence] in Blood by Automated countOrdered By: Yogesh Becker on 01-12-2024 Nucleated RBC Auto Ql (Bld) 0.1 /100{WBC} 0-0.5 [facility] Platelet mean volume [Entiti c volume] in Blood by Automated countOrdered By: Yogesh Becker on 01-12-2024 Platelet mean volume (Bld) [Entitic vol] 8.6 fL Normal 6.6-10.1 [facility] Comment on above: Performed By: #### C AMAIRANI, BMP #### [facility] [address] [place] [address] [place] Platelets [#/volume] in Bloo d by Automated countOrdered By: Yogesh Becker on 01-12-2024 Platelets (Bld) [#/Vol] 186 10*3/uL Normal 150-450 [facility] Comment on above: Performed By: #### C AMAIRANI, BMP #### [place] [address] [place] Potassium [Moles/volume] in Serum or PlasmaOrdered By: Yogesh Becker on 01-12-2024 Potassium [Moles/Vol] 5.0 mmol/L Normal 3.5-5.1 [facility] Comment on above: Performed By: #### C AMAIRANI, BMP #### [address] Serum or plasma anion gap de terminationOrdered By: Yogesh Becker on 01-12-2024 Anion gap [Moles/Vol] 9.2 mmol/L Normal 6.0-15.0 [facility] Comment on above: Performed By: #### C AMAIRANI, BMP #### [place] [address] [place] Sodium [Moles/volume] in Ser um or PlasmaOrdered By: Yogesh Becker on 01-12-2024 Sodium [Moles/Vol] 136 mmol/L Normal 136-145 [facility] Comment on above: Performed By: #### C AMAIRANI, BMP #### [place] [address] [place] Urea nitrogen [Mass/volume] in Serum or PlasmaOrdered By: Yogesh Becker on 01-12-2024 Urea nitrogen [Mass/Vol] 24 mg/dL Normal 7-25 [facility] Comment on above: Performed By: #### C BC, BMP #### [facility] [address] [place] [id number] [facility] MR cervical spine wo conon 0 12-16-2023 MR cervical spine wo con [facility] [address] [place] [address] MRI Report Signed Patient: Koko Meier MR#: [id number] : 1960 Acct:[id number] Age/Sex: 63 / M ADM Date: 12/16/23 Loc: ICMR Room: Type: [facility] CLI Attending Dr: Maryann Rubalcava MD [...] Bruce Ortiz M.D.12/16/2023 3:15 PM Dictation Location: [place] [address] Transcribed By: [facility] 12/16/23 1515 Dictated By: Bruce Ortiz II, MD 12/16/23 1500 Signed By: 12/16/23 1515 Normal [facility] CT head/brain wo [facility] 11-25 CT head/brain [place] [address] CT Scan Report Signed Patient: Koko Meier MR#: [id number] : 1960 Acct:[id number] Age/Sex: 62 / M ADM Date: 11/25/23 Loc: CT Room: Type: [facility] Attending Dr: Oliver Kerr MD Copies to: [...] Koko Hernandez M.D.11/25/2023 12:02 PM Dictation Location: [place] [address] Transcribed By: [facility] 11/25/23 1202 Dictated By: Koko Hernandez DO 11/25/23 1201 Signed By: 11/25/23 1202 Normal [facility] Cholesterol [Mass/volume] in Serum or PlasmaOrdered By: Josh Melvin on 11-24-2023 Cholesterol [Mass/Vol] 168 mg/dL Normal 140-200 [facility] Comment on above: Chol less than 200 m g/dl low riskChol 201-239 mg/dl borderline riskChol 240 mg/dl and greater high risk Result Comment: Chol less than 200 mg/dl low risk Chol 201-239 mg/dl borderline risk Chol 240 mg/dl and greater high risk Performed By: #### C , BMP #### [address] Cholesterol in LDL Calc [Mas s/Vol]Ordered By: Josh Melvin on 11-24-2023 Cholesterol in LDL [Mass/Vol] 70 mg/dL 0-100 [facility] Comment on above: LDL ATP III CLASSIFI CATIONLDL less than 100 mg/dL OptimalLDL 100-129 mg/dL Near or above optimalLDL 130-159 mg/dL Borderline highLDL 160-189 mg/dL HighLDL greater than 189 mg/dL Very high Cholesterol in VLDL Calc [Ma ss/Vol]Ordered By: Josh Melvin on 11-24-2023 Cholesterol in VLDL [Mass/Vol] 43 mg/dL [facility] Folate [Mass/volume] in Seru m or PlasmaOrdered By: Oliver Kerr on 11-24-2023 Folate [Mass/Vol] 14.9 ng/mL >5.9 [facility] Comment on above: Folate reference ran ge: >5.9 ng/mlThe WHO technical consultation on folate and vitamin [id number] has determined that folate concentrations lessthan 4 ng/ml are considered deficient. Lipid Panelon 11-24-2023 LDL Cholesterol,Calculated 70 mg/dL Normal 0-100 [facility] Comment on above: Result Comment: LDL ATP III CLASSIFICATION LDL less than 100 mg/dL Optimal LDL 100-129 mg/dL Near or above optimal LDL 130-159 mg/dL Borderline high LDL 160-189 mg/dL High LDL greater than 189 mg/dL Very high Performed By: #### C BC, BMP #### [facility] [address] [id number] [facility] Triglyceride w/Reflex 218 mg/dL High 0-149 [facility] Comment on above: Result Comment: TRIG ATP III CLASSIFICATION TRIG less than 150 mg/dL Normal TRIG 150-199 mg/dL Borderline high TRIG 200-500 mg/dL High TRIG greater than 500 mg/dL Very high Standard traceable to the Center for Disease Conrtrol and Prevention (CDC) test method. Performed By: #### C BC, BMP #### [facility] [address] [id number] [facility] VLDL CHOLESTEROL 43 mg/dL Normal [facility] Comment on above: Performed By: #### C BC, BMP #### [facility] [address] [id number] [facility] Methylmalonic Acidon 024 Methylmalonic Acid 169 Normal 0-378 [facility] Comment on above: Result Comment: This test was developed and its performance characteristics determined by [facility]. It has not been cleared or approved by the Food and Drug Administration. Performed at: [facility] [id number] [employer] Inspector: Caroline Romo MD, Phone: [phone] PERFORMED BY: [place] [address] PATHOLOGIST JEWEL BEARING DRILLER CLEVE CANDELARIA M.D. Performed By: #### T SH3, [id number] #### [address] #### METH #### [facility] , PSA Screen (Yearly Only)on 0 11-24-2023 PSA Screen (Yearly Only) 1.380 ng/mL Normal 0.000-4.00 0 [facility] Comment on above: Order Comment: Is pa tient <50 yrs? Medicare does not pay <50.: Y What is the date of the last PSA Screen?: 01/31/22 Is Medicare the insurance?: U Did you verify eligibility (Dx Time) check TestView[employer]p: YES TO ALL Result Comment: Baltai al tumor marker results determined by assays using different manufacturers or methods may not be comparable. [facility] adolescent psychiatrist and method: [employer] DXI, CHEMILUMINESCENT IMMUNOASSAY. PERFORMED BY: [place] [address] PATHOLOGIST JEWEL BEARING DRILLER CLEVE CANDELARIA M.D. Performed By: #### C BC, BMP #### [address] Prostate specific Ag [Mass/v olume] in Serum or PlasmaOrdered By: Josh Melvin on 11-24-2023 Prostate specific Ag [Mass/Vol] 1.380 ng/mL 0.000-4.00 0 [facility] Comment on above: Serial tumor marker results determined by assays using different manufacturers or methods may not be comparable.[facility] adolescent psychiatrist and method:LvmamaEL DXI, CHEMILUMINESCENT IMMUNOASSAY. Serum or plasma high density lipoprotein (HDL) cholesterol measurementOrdered By: Josh Melvin on 11-24-2023 Cholesterol in HDL [Mass/Vol] 54 mg/dL Normal 23-92 [facility] Comment on above: HDL CHOL ATP-III CLA SSIFICATION Cardiovascular RiskHDL > or equal to 60 mg/dL LOWHDL < 40 mg/dL HIGH Result Comment: HDL CHOL ATP-III CLASSIFICATION Cardiovascular Risk HDL > or equal to 60 mg/dL LOW HDL < 40 mg/dL HIGH Performed By: #### C AMAIRANI, BMP #### [address] Serum or plasma methylmalona te measurement (moles/volume)Ordered By: Oliver Kerr on 11-24-2023 Methylmalonate [Moles/Vol] 169 nmol/L 0-378 [facility] Comment on above: This test was develo ped and its performance characteristicsdetermined by [facility]. It has not been cleared orapproved by the Food and Drug Administration.Performed at: [address] [id number] Director: Caroline Romo MD, Phone: [phone] Serum or plasma total choles terol/high density lipoprotein (HDL) cholesterol mass ratOrdered By: Josh Melvin on 11-24-2023 Cholesterol.total/Chol esterol in HDL [Mass ratio] 3.1 {ratio} Normal <5.0 [facility] Comment on above: Result Comment: PERF ORMED BY: [place] [address] PATHOLOGIST JEWEL BEARING DRILLER CLEVE CANDELARIA M.D. Performed By: #### C AMAIRANI, BMP #### [address] Thyrotropin [Units/volume] i n Serum or PlasmaOrdered By: Oliver Kerr on 11-24-2023 TSH Qn 2.24 m[IU]/L Normal 0.45-5.33 [facility] Comment on above: Result Comment: PERF ORMED BY: [place] [address] PATHOLOGIST JEWEL BEARING DRILLER CLEVE CANDELARIA M.D. Performed By: #### T SH3, [id number] #### [facility] [address] [place] [address] #### METH #### [facility] , Triglyceride [Mass/volume] i n Serum or PlasmaOrdered By: Josh Melvin on 11-24-2023 Triglyceride [Mass/Vol] 218 mg/dL 0-149 [facility] Comment on above: TRIG ATP III CLASSIF ICATIONTRIG less than 150 mg/dL NormalTRIG 150-199 mg/dL Borderline highTRIG 200-500 mg/dL High TRIG greater than 500 mg/dL Very highStandard traceable to the Center for Disease Conrtrol and Prevention (CDC) test method. Vit. B12/Folate Profileon Folate 14.9 ng/mL Normal >5.9 [facility] Comment on above: Result Comment: Lin te reference range: >5.9 ng/ml The WHO technical consultation on folate and vitamin b12 deficiencies has determined that folate concentrations less than 4 ng/ml are considered deficient. Performed By: #### T SH3, [id number] #### [facility] [address] [place] [address] [place] #### METH #### [facility] , Vitamin B12 ser/plasOrdered By: Oliver Kerr on 11-24-2023 Cobalamin (Vitamin B12) [Mass/Vol] 365 pg/mL Normal 180-914 [facility] Comment on above: Performed By: #### T SH3, [id number] #### [facility] [address] [place] [address] [place] #### METH #### [facility] , Amphetamine Screen Ql (U)Ord ered By: Kenroy Domínguez on 11-03-2023 Amphetamines Ql (U) Negative Negative [facility] Barbiturates [Presence] in U rine by Screen methodOrdered By: Kenroy Domínguez on 11-03-2023 Barbiturates Screen Ql (U) Negative Negative [facility] Benzodiazepines Screen Ql (U )Ordered By: Kenroy Domínguez on 11-03-2023 Benzodiazepines Ql (U) Negative Negative [facility] Benzoylecgonine [Presence] i n Urine by Screen methodOrdered By: Kenroy Domínguez on 11-03-2023 Benzoylecgonine Screen Ql (U) Negative Negative [facility] Cannabinoids [Presence] in U rine by Screen methodOrdered By: Kenroy Domínguez on 11-03-2023 Cannabinoids Screen Ql (U) Positive Negative [facility] Comment on above: These are unconfirme d results and should not be used for legal purposes. Drug Cut-Off Concentration: AMPH 1000 ng/mL ZE 200 ng/mL DUANE 200 ng/mL COCM 300 ng/mL OP 300 ng/mL PCP 25 ng/mL THC 20 ng/mL Capillary blood glucose ezra urement by glucometer (mass/volume)Ordered By: Yogesh Becker on 11-03-2023 Glucose [Mass/Vol] 185 mg/dL Normal [facility] Comment on above: Random Glucose Refer ence Range is dependent on time and content of last meal. Glucose of more than 200 mg/dL in a nonstressed, ambulatory subject supports the diagnosis of Diabetes Mellitus. Result Comment: [place] om Glucose Reference Range is dependent on time and content of last meal. Glucose of more than 200 mg/dL in a nonstressed, ambulatory subject supports the diagnosis of Diabetes Mellitus. PERFORMED BY: [place] [address] PATHOLOGIST JEWEL BEARING DRILLER CLEVE CANDELARIA M.D. Performed By: #### C BC, BMP #### [address] Drug Screen,Urineon 11-03-19 24 Amphetamine Screen,Urine Negative Normal Negative [facility] Comment on above: Performed By: #### C BC, BMP #### [address] Barbiturate Screen,Urine Negative Normal Negative [facility] Comment on above: Performed By: #### C BC, BMP #### [address] Benzodiazepines Screen,Urine Negative Normal Negative [facility] Comment on above: Performed By: #### C BC, BMP #### [address] Cannabinoid Screen,Urine Positive High Negative [facility] Comment on above: Result Comment: Thes e are unconfirmed results and should not be used for legal purposes. Drug Cut-Off Concentration: AMPH 1000 ng/mL ZE 200 ng/mL DUANE 200 ng/mL COCM 300 ng/mL OP 300 ng/mL PCP 25 ng/mL THC 20 ng/mL PERFORMED BY: [place] [address] PATHOLOGIST JEWEL BEARING DRILLER CLEVE CANDELARIA M.D. Performed By: #### C BC, BMP #### [address] Cocaine Screen,Urine Negative Normal Negative [facility] Comment on above: Performed By: #### C BC, BMP #### [address] Opiate Screen,Urine Negative Normal Negative [facility] Comment on above: Performed By: #### C BC, BMP #### [address] Phencyclidine Screen,Urine Negative Normal Negative [facility] Comment on above: Performed By: #### C BC, BMP #### [address] Glucose Poct Glucometerson 0 11-03-2023 Glucose [Mass/Vol] 180 mg/dL Normal [facility] Comment on above: Result Comment: [facility] Glucose Reference Range is dependent on time and content of last meal. Glucose of more than 200 mg/dL in a nonstressed, ambulatory subject supports the diagnosis of Diabetes Mellitus. PERFORMED BY: [place] [address] PATHOLOGIST JEWEL BEARING DRILLER CLEVE CANDELARIA M.D. Performed By: #### G LULS #### Point of Care testing , Opiates [Presence] in Urine by Screen methodOrdered By: Kenroy Domínguez on 11-03-2023 Opiates Screen Ql (U) Negative Negative [facility] Phencyclidine Screen Ql (U)O rdered By: Kenroy Domínguez on 11-03-2023 Phencyclidine Ql (U) Negative Negative [facility] Automated basophil %Ordered By: Yogesh Becker on 10-23-2023 Basophils/100 WBC (Bld) 0.8 % Normal . [facility] Comment on above: Performed By: #### B MP, CBC #### [address] Automated basophil countOrde red By: Yogesh Becker on 10-23-2023 Basophils (Bld) [#/Vol] 0.0 10*3/uL Normal 0.0-0.2 [facility] Comment on above: Result Comment: PERF ORMED BY: [place] [address] PATHOLOGIST JEWEL BEARING DRILLER CLEVE CANDELARIA M.D. Performed By: #### B MP, CBC #### [address] Automated blood monocyte cou ntOrdered By: Yogesh Becker on 10-23-2023 Monocytes (Bld) [#/Vol] 0.5 10*3/uL Normal 0.0-0.8 [facility] Comment on above: Performed By: #### B MP, CBC #### [address] Automated eosinophil %Ordere d By: Yogesh Becker on 10-23-2023 Eosinophils/100 WBC (Bld) 3.6 % Normal . [facility] Comment on above: Performed By: #### B MP, CBC #### [address] Automated eosinophil countOr dered By: Yogesh Becker on 10-23-2023 Eosinophils (Bld) [#/Vol] 0.2 10*3/uL Normal 0.0-0.45 [facility] Comment on above: Performed By: #### B MP, CBC #### [address] Automated monocyte %Ordered By: Yogesh Becker on 10-23-2023 Monocytes/100 WBC (Bld) 9.4 % Normal . [facility] Comment on above: Performed By: #### B MP, CBC #### [address] [address] [place] Automated neutrophil %Ordere d By: Yogesh Becker on 10-23-2023 Neutrophils/100 WBC (Bld) 59.4 % Normal . [facility] Comment on above: Performed By: #### B MP, CBC #### [address] Basic Metabolic Panelon 09-27 GFR/1.73 sq M.predicted MDRD (S/P/Bld) [Vol rate/Area] mL/min/{1.73_m2} Normal [facility] Comment on above: Performed By: #### C BC, BMP #### [facility] [address] [place] [address] Calcium [Mass/volume] in Ser um or PlasmaOrdered By: Yogesh Becker on 10-23-2023 Calcium [Mass/Vol] 8.8 mg/dL Normal 8.6-10.3 [facility] Comment on above: Result Comment: PERF ORMED BY: [place] [address] PATHOLOGIST JEWEL BEARING DRILLER CLEVE CANDELARIA M.D. Performed By: #### C BC, BMP #### [address] Carbon dioxide, total [Moles /volume] in Serum or PlasmaOrdered By: Yogesh Becker on 10-23-2023 CO2 [Moles/Vol] 33.8 mmol/L High 21.0-31.0 [facility] Comment on above: Performed By: #### C BC, BMP #### [facility] [address] [place] [address] [place] Chloride [Moles/volume] in S raffi or PlasmaOrdered By: Yogesh Becker on 10-23-2023 Chloride [Moles/Vol] 100 mmol/L Normal 98-107 [facility] Comment on above: Performed By: #### C BC, BMP #### [facility] [address] [place] [address] [place] Complete Blood Count Auto Di ffon 10-23-2023 Mean Corpuscular HGB Conc 33.8 g/dL Normal 32.5-35.6 [facility] Comment on above: Performed By: #### B MP, CBC #### [address] NRBC% 0.1 /100{WBC} Normal 0-0.5 [facility] Comment on above: Performed By: #### B MP, CBC #### [place] [address] [place] Creatinine [Mass/volume] in Serum or PlasmaOrdered By: Yogesh Becker on 10-23-2023 Creatinine [Mass/Vol] 0.71 mg/dL Normal 0.70-1.30 [facility] Comment on above: Performed By: #### C BC, BMP #### [address] Erythrocyte distribution wid th [Ratio] by Automated countOrdered By: Yogesh Becker on 10-23-2023 Erythrocyte distribution width (RBC) [Ratio] 14.3 % Normal 12.0-14.8 [facility] Comment on above: Performed By: #### B MP, CBC #### [place] [address] [place] Erythrocytes [#/volume] in B lood by Automated countOrdered By: Yogesh Becker on 10-23-2023 RBC (Bld) [#/Vol] 5.01 10*6/uL Normal 3.90-5.60 [facility] Comment on above: Performed By: #### B MP, CBC #### [place] [address] [place] Glucose [Mass/volume] in Ser um or PlasmaOrdered By: Yogesh Becker on 10-23-2023 Glucose [Mass/Vol] 105 mg/dL High 70-100 [facility] Comment on above: ADA recommended refe rence rangeRandom Glucose Reference Range is dependent on time and content of last meal. Glucose of more than 200 mg/dL in a nonstressed, ambulatory subject supports the diagnosis of Diabetes Mellitus. Result Comment: [place] om Glucose Reference Range is dependent on time and content of last meal. Glucose of more than 200 mg/dL in a nonstressed, ambulatory subject supports the diagnosis of Diabetes Mellitus. ADA recommended reference range Performed By: #### C BC, BMP #### [address] Hematocrit [Volume Fraction] of Blood by Automated countOrdered By: Yogesh Becker on 10-23-2023 Hematocrit (Bld) [Volume fraction] 48.1 % Normal 38.8-50.0 [facility] Comment on above: Performed By: #### B MP, CBC #### [address] Hemoglobin [Mass/volume] in BloodOrdered By: Yogesh Becker on 10-23-2023 Hemoglobin (Bld) [Mass/Vol] 16.2 g/dL Normal 13.0-17.0 [facility] Comment on above: Performed By: #### B MP, CBC #### [address] Leukocytes [#/volume] correc charanjit for nucleated erythrocytes in Blood by Automated counOrdered By: Yogesh Becker on 10-23-2023 WBC corrected for nucl RBC Auto (Bld) [#/Vol] 4.9 10*3/uL 4.1-10.5 [facility] Leukocytes [#/volume] in Blo od by Automated countOrdered By: Yogesh Becker on 10-23-2023 WBC (Bld) [#/Vol] 4.9 10*3/uL Normal 4.1-10.5 [facility] Comment on above: Performed By: #### B MP, CBC #### [address] Lymphocytes [#/volume] in Bl ood by Automated countOrdered By: Yogesh Becker on 10-23-2023 Lymphocytes (Bld) [#/Vol] 1.3 10*3/uL Normal 1.00-4.8 [facility] Comment on above: Performed By: #### B MP, CBC #### [place] [id number] [place] Lymphocytes/100 leukocytes i n Blood by Automated countOrdered By: Yogesh Becker on 10-23-2023 Lymphocytes/100 WBC (Bld) 26.8 % Normal . [facility] Comment on above: Performed By: #### B MP, CBC #### [facility] [address] [place] [address] MCH [Entitic mass] by Automa charanjit countOrdered By: Yogesh Becker on 10-23-2023 MCH (RBC) [Entitic mass] 32.4 pg Normal 27.5-35.2 [facility] Comment on above: Performed By: #### B MP, CBC #### [facility] [address] [place] [address] MCHC Auto (RBC) [Mass/Vol]Or dered By: Yogesh Becker on 10-23-2023 MCHC (RBC) [Mass/Vol] 33.8 g/dL 32.5-35.6 [facility] MCV [Entitic volume] by Auto mated countOrdered By: Yogesh Becker on 10-23-2023 MCV (RBC) [Entitic vol] 96.0 fL Normal 83.5-101 [facility] Comment on above: Performed By: #### B MP, CBC #### [address] Neutrophils [#/volume] in Bl ood by Automated countOrdered By: Yogesh Becker on 10-23-2023 Neutrophils (Bld) [#/Vol] 2.9 10*3/uL Normal 1.8-7.7 [facility] Comment on above: Performed By: #### B MP, CBC #### [facility] [address] [place] [address] No Panel InformationOrdered By: Yogesh Becker on 10-23-2023 Estimated GFR (CKD-EPI) > 60.0 mL/Min [facility] Creatinine Clearance (Chem N/A [facility] Nucleated erythrocytes [Pres ence] in Blood by Automated countOrdered By: Yogesh Becker on 10-23-2023 Nucleated RBC Auto Ql (Bld) 0.1 /100{WBC} 0-0.5 [facility] Platelet mean volume [Entiti c volume] in Blood by Automated countOrdered By: Yogesh Becker on 10-23-2023 Platelet mean volume (Bld) [Entitic vol] 8.4 fL Normal 6.6-10.1 [facility] Comment on above: Performed By: #### B MP, CBC #### [facility] [address] [place] [address] [place] Platelets [#/volume] in Bloo d by Automated countOrdered By: Yogesh Becker on 10-23-2023 Platelets (Bld) [#/Vol] 173 10*3/uL Normal 150-450 [facility] Comment on above: Performed By: #### B MP, CBC #### [place] [address] [place] Potassium [Moles/volume] in Serum or PlasmaOrdered By: Yogesh Becker on 10-23-2023 Potassium [Moles/Vol] 4.5 mmol/L Normal 3.5-5.1 [facility] Comment on above: Performed By: #### C BC, BMP #### [address] Serum or plasma anion gap de terminationOrdered By: Yogesh Becker on 10-23-2023 Anion gap [Moles/Vol] 9.7 mmol/L Normal 6.0-15.0 [facility] Comment on above: Performed By: #### C BC, BMP #### [place] [address] [place] Sodium [Moles/volume] in Ser um or PlasmaOrdered By: Yogesh Becker on 10-23-2023 Sodium [Moles/Vol] 139 mmol/L Normal 136-145 [facility] Comment on above: Performed By: #### C BC, BMP #### [place] [address] [place] Urea nitrogen [Mass/volume] in Serum or PlasmaOrdered By: Yogesh Becker on 12-28-2023 Urea nitrogen [Mass/Vol] 18 mg/dL Normal 7-25 [facility] Comment on above: Performed By: #### C AMAIRANI, BMP #### [facility] [address] Amphetamine Screen Ql (U)Ord ered By: Giuseppe Desouza on 10-02-2023 Amphetamines Ql (U) Negative Negative [facility] Barbiturates [Presence] in U rine by Screen methodOrdered By: Giuseppe Desouza on 10-02-2023 Barbiturates Screen Ql (U) Negative Negative [facility] Benzodiazepines Screen Ql (U )Ordered By: Giuseppe Desouza on 10-02-2023 Benzodiazepines Ql (U) Positive Negative [facility] Benzoylecgonine [Presence] i n Urine by Screen methodOrdered By: Giuseppe Desouza on 10-02-2023 Benzoylecgonine Screen Ql (U) Positive Negative [facility] Cannabinoids [Presence] in U rine by Screen methodOrdered By: Giuseppe Desouza on 10-02-2023 Cannabinoids Screen Ql (U) Positive Negative [facility] Comment on above: These are unconfirme d results and should not be used for legal purposes. Drug Cut-Off Concentration: AMPH 1000 ng/mL ZE 200 ng/mL DUANE 200 ng/mL COCM 300 ng/mL OP 300 ng/mL PCP 25 ng/mL THC 20 ng/mL Capillary blood glucose ezra urement by glucometer (mass/volume)Ordered By: Yogesh Becker on 10-02-2023 Glucose [Mass/Vol] 290 mg/dL Normal [facility] Comment on above: Random Glucose Refer ence Range is dependent on time and content of last meal. Glucose of more than 200 mg/dL in a nonstressed, ambulatory subject supports the diagnosis of Diabetes Mellitus. Result Comment: [place] Glucose Reference Range is dependent on time and content of last meal. Glucose of more than 200 mg/dL in a nonstressed, ambulatory subject supports the diagnosis of Diabetes Mellitus. Performed By: #### C BC, BMP #### [facility] [address] [id number] [facility] Drug Screen,Urineon 10-02-20 23 Amphetamine Screen,Urine Negative Normal Negative [facility] Comment on above: Performed By: #### T SH3, [id number] #### [place] [address] [place] #### METH #### [facility] , Barbiturate Screen,Urine Negative Normal Negative [facility] Comment on above: Performed By: #### T SH3, [id number] #### [place] [address] [place] #### METH #### [facility] , Benzodiazepines Screen,Urine Positive High Negative [facility] Comment on above: Performed By: #### T SH3, [id number] #### [address] #### METH #### [facility] , Cannabinoid Screen,Urine Positive High Negative [facility] Comment on above: Result Comment: Thes e are unconfirmed results and should not be used for legal purposes. Drug Cut-Off Concentration: AMPH 1000 ng/mL ZE 200 ng/mL DUANE 200 ng/mL COCM 300 ng/mL OP 300 ng/mL PCP 25 ng/mL THC 20 ng/mL PERFORMED BY: [place] [address] PATHOLOGIST JEWEL BEARING DRILLER CLEVE CANDELARIA M.D. Performed By: #### T SH3, [id number] #### [place] [address] [place] #### METH #### [facility] , Cocaine Screen,Urine Positive High Negative [facility] Comment on above: Performed By: #### T SH3, [id number] #### [place] [address] [place] #### METH #### [facility] , Opiate Screen,Urine Negative Normal Negative [facility] Comment on above: Performed By: #### T SH3, [id number] #### [place] [address] [place] #### METH #### [facility] , Phencyclidine Screen,Urine Negative Normal Negative [facility] Comment on above: Performed By: #### T SH3, [id number] #### [facility] [address] [place] [address] #### METH #### [facility] , Glucose Poct Glucometerson 1 12-03-2022 Commemt1 Glu2: Cleaned Meter Normal [facility] Comment on above: Result Comment: PERF ORMED BY: [place] [address] PATHOLOGIST JEWEL BEARING DRILLER CLEVE CANDELARIA M.D. Performed By: #### C BC, BMP #### [facility] [address] [place] [address] No Panel InformationOrdered By: Yogesh Becker on 10-02-2023 Bedside Glucose Comment Glu2: cleaned meter [facility] Opiates [Presence] in Urine by Screen methodOrdered By: Giuseppe Desouza on 10-02-2023 Opiates Screen Ql (U) Negative Negative [facility] Phencyclidine Screen Ql (U)O rdered By: Giuseppe Desouza on 10-02-2023 Phencyclidine Ql (U) Negative Negative [facility] POC Glucose Randomon 023 Glucose [Mass/Vol] 192 mg/dL High 70-99 [facility] Comment on above: Performed By: #### C [id number] #### [facility] [address] [place] [id number] Glucose [Mass/Vol] 246 mg/dL High 70-99 [facility] Comment on above: Performed By: #### C [id number] #### [facility] [address] [place] [id number] Automated basophil %Ordered By: Yogesh Becker on 09-23-2023 Basophils/100 WBC (Bld) 0.6 % Normal . [facility] Comment on above: Performed By: #### B MP, CBC #### [address] Automated basophil countOrde red By: Yogesh Becker on 09-23-2023 Basophils (Bld) [#/Vol] 0.1 10*3/uL Normal 0.0-0.2 [facility] Comment on above: Result Comment: PERF ORMED BY: [place] [address] PATHOLOGIST JEWEL BEARING DRILLER CLEVE CANDELARIA M.D. Performed By: #### B MP, CBC #### [address] Automated blood monocyte cou ntOrdered By: Yogesh Becker on 09-23-2023 Monocytes (Bld) [#/Vol] 0.6 10*3/uL Normal 0.0-0.8 [facility] Comment on above: Performed By: #### B MP, CBC #### [address] Automated eosinophil %Ordere d By: Yogesh Becker on 09-23-2023 Eosinophils/100 WBC (Bld) 0.1 % Normal . [facility] Comment on above: Performed By: #### B MP, CBC #### [address] Automated eosinophil countOr dered By: Yogesh Becker on 09-23-2023 Eosinophils (Bld) [#/Vol] 0.0 10*3/uL Normal 0.0-0.45 [facility] Comment on above: Performed By: #### B MP, CBC #### [address] Automated monocyte %Ordered By: Yogesh Becker on 09-23-2023 Monocytes/100 WBC (Bld) 4.6 % Normal . [facility] Comment on above: Performed By: #### B MP, CBC #### [address] Automated neutrophil %Ordere d By: Yogesh Becker on 09-23-2023 Neutrophils/100 WBC (Bld) 81.4 % Normal . [facility] Comment on above: Performed By: #### B MP, CBC #### [address] Basic Metabolic Panelon 08-28 GFR/1.73 sq M.predicted MDRD (S/P/Bld) [Vol rate/Area] mL/min/{1.73_m2} Normal [facility] Comment on above: Performed By: #### B MP, CBC #### [address] Calcium [Mass/volume] in Ser um or PlasmaOrdered By: Yogesh Becker on 09-23-2023 Calcium [Mass/Vol] 9.3 mg/dL Normal 8.6-10.3 [facility] Comment on above: Result Comment: PERF ORMED BY: [place] [address] PATHOLOGIST JEWEL BEARING DRILLER CLEVE CANDELARIA M.D. Performed By: #### B MP, CBC #### [address] Carbon dioxide, total [Moles /volume] in Serum or PlasmaOrdered By: Yogesh Becker on 09-23-2023 CO2 [Moles/Vol] 30.6 mmol/L Normal 21.0-31.0 [facility] Comment on above: Performed By: #### B MP, CBC #### [place] [address] [place] Chloride [Moles/volume] in S raffi or PlasmaOrdered By: Yogesh Becker on 09-23-2023 Chloride [Moles/Vol] 96 mmol/L Low 98-107 [facility] Comment on above: Performed By: #### B MP, CBC #### [address] Complete Blood Count Auto Di ffon 09-23-2023 Mean Corpuscular HGB Conc 33.4 g/dL Normal 32.5-35.6 [facility] Comment on above: Performed By: #### B MP, CBC #### [facility] [address] NRBC% 0.0 /100{WBC} Normal 0-0.5 [facility] Comment on above: Performed By: #### B MP, CBC #### [facility] [address] Creatinine [Mass/volume] in Serum or PlasmaOrdered By: Yogesh Becker on 09-23-2023 Creatinine [Mass/Vol] 1.01 mg/dL Normal 0.70-1.30 [facility] Comment on above: Performed By: #### B MP, CBC #### [facility] [address] ECG 12 lead ECGon 09-23-2023 ECG 12 lead ECG [facility] Main [address] [place] [address] Electrocardiograph Report Signed Patient: Koko Meier MR#: [id number] : 1960 Acct:[id number] Age/Sex: 62 / M ADM Date: 09/23/23 Loc: Room: Type: [facility] Attending Dr: Yogesh Becker MD Ordering Provider: [...] axis shifted right Confirmed by JOSEY MATUTE [id number] on 09/23/2023 10:29:43 PM Referred By: ABDIRAHMAN BECKER Electronically Signed By:KIRSTIE CERVANTES MD [facility] Transcribed By: MUS Signed By Barron Cervantes MD 09/23/232228 Normal [facility] Erythrocyte distribution wid th [Ratio] by Automated countOrdered By: Yogesh Becker on 09-23-2023 Erythrocyte distribution width (RBC) [Ratio] 13.9 % Normal 12.0-14.8 [facility] Comment on above: Performed By: #### B MP, CBC #### [facility] [address] Erythrocytes [#/volume] in B lood by Automated countOrdered By: Yogesh Becker on 09-23-2023 RBC (Bld) [#/Vol] 4.87 10*6/uL Normal 3.90-5.60 [facility] Comment on above: Performed By: #### B ALEJANDRO, CBC #### [address] Glucose [Mass/volume] in Ser um or PlasmaOrdered By: Yogesh Becker on 09-23-2023 Glucose [Mass/Vol] 412 mg/dL High 70-100 [facility] Comment on above: ADA recommended refe rence rangeRandom Glucose Reference Range is dependent on time and content of last meal. Glucose of more than 200 mg/dL in a nonstressed, ambulatory subject supports the diagnosis of Diabetes Mellitus. Result Comment: [place] om Glucose Reference Range is dependent on time and content of last meal. Glucose of more than 200 mg/dL in a nonstressed, ambulatory subject supports the diagnosis of Diabetes Mellitus. ADA recommended reference range Performed By: #### B ALEJANDRO, CBC #### [place] [address] [place] Hematocrit [Volume Fraction] of Blood by Automated countOrdered By: Yogesh Becker on 09-23-2023 Hematocrit (Bld) [Volume fraction] 47.2 % Normal 38.8-50.0 [facility] Comment on above: Performed By: #### B MP, CBC #### [address] Hemoglobin [Mass/volume] in BloodOrdered By: Yogesh Becker on 09-23-2023 Hemoglobin (Bld) [Mass/Vol] 15.7 g/dL Normal 13.0-17.0 [facility] Comment on above: Performed By: #### B MP, CBC #### [facility] [address] [place] [address] Leukocytes [#/volume] correc charanjit for nucleated erythrocytes in Blood by Automated counOrdered By: Yogesh Becker on 09-23-2023 WBC corrected for nucl RBC Auto (Bld) [#/Vol] 12.4 10*3/uL 4.1-10.5 [facility] Leukocytes [#/volume] in Blo od by Automated countOrdered By: Yogesh Becker on 09-23-2023 WBC (Bld) [#/Vol] 12.4 10*3/uL High 4.1-10.5 [facility] Comment on above: Performed By: #### B MP, CBC #### [address] Lymphocytes [#/volume] in Bl ood by Automated countOrdered By: Yogesh Becker on 09-23-2023 Lymphocytes (Bld) [#/Vol] 1.7 10*3/uL Normal 1.00-4.8 [facility] Comment on above: Performed By: #### B MP, CBC #### [address] Lymphocytes/100 leukocytes i n Blood by Automated countOrdered By: Yogesh Becker on 09-23-2023 Lymphocytes/100 WBC (Bld) 13.3 % Normal . [facility] Comment on above: Performed By: #### B MP, CBC #### [place] [address] [place] MCH [Entitic mass] by Automa charanjit countOrdered By: Yogesh Becker on 09-23-2023 MCH (RBC) [Entitic mass] 32.3 pg Normal 27.5-35.2 [facility] Comment on above: Performed By: #### B MP, CBC #### [address] MCHC Auto (RBC) [Mass/Vol]Or dered By: Yogesh Becker on 09-23-2023 MCHC (RBC) [Mass/Vol] 33.4 g/dL 32.5-35.6 [facility] MCV [Entitic volume] by Auto mated countOrdered By: Yogesh Becker on 09-23-2023 MCV (RBC) [Entitic vol] 96.9 fL Normal 83.5-101 [facility] Comment on above: Performed By: #### B MP, CBC #### [facility] [address] [place] [address] Neutrophils [#/volume] in Bl ood by Automated countOrdered By: Yogesh Becker on 09-23-2023 Neutrophils (Bld) [#/Vol] 10.1 10*3/uL High 1.8-7.7 [facility] Comment on above: Performed By: #### B MP, CBC #### [address] No Panel InformationOrdered By: Yogesh Becker on 09-23-2023 Estimated GFR (CKD-EPI) > 60.0 mL/Min [facility] Creatinine Clearance (Chem N/A [facility] Nucleated erythrocytes [Pres ence] in Blood by Automated countOrdered By: Yogesh Becker on 09-23-2023 Nucleated RBC Auto Ql (Bld) 0.0 /100{WBC} 0-0.5 [facility] Platelet mean volume [Entiti c volume] in Blood by Automated countOrdered By: Yogesh Becker on 09-23-2023 Platelet mean volume (Bld) [Entitic vol] 8.3 fL Normal 6.6-10.1 [facility] Comment on above: Performed By: #### B MP, CBC #### [facility] [address] [place] [address] Platelets [#/volume] in Bloo d by Automated countOrdered By: Yogesh Becker on 09-23-2023 Platelets (Bld) [#/Vol] 203 10*3/uL Normal 150-450 [facility] Comment on above: Performed By: #### B MP, CBC #### [facility] [address] [place] [address] Potassium [Moles/volume] in Serum or PlasmaOrdered By: Yogesh Becker on 09-23-2023 Potassium [Moles/Vol] 4.7 mmol/L Normal 3.5-5.1 [facility] Comment on above: Performed By: #### B MP, CBC #### [facility] [address] [place] [address] Serum or plasma anion gap de terminationOrdered By: Yogesh Becker on 09-23-2023 Anion gap [Moles/Vol] 13.1 mmol/L Normal 6.0-15.0 [facility] Comment on above: Performed By: #### B MP, CBC #### [facility] [address] [place] [address] Sodium [Moles/volume] in Ser um or PlasmaOrdered By: Yogesh Becker on 09-23-2023 Sodium [Moles/Vol] 135 mmol/L Low 136-145 [facility] Comment on above: Performed By: #### B MP, CBC #### [address] Urea nitrogen [Mass/volume] in Serum or PlasmaOrdered By: Yogesh Becker on 09-23-2023 Urea nitrogen [Mass/Vol] 28 mg/dL High 7-25 [facility] Comment on above: Performed By: #### B MP, CBC #### [address] ABDOMEN PELVIS W IV CONTR [...] spine 5V*on 07-27 XR cervical spine 5V* [facility] Main [address] [place] [address] XRay Report Signed Patient: Koko Meier MR#: [id number] : 1960 Acct:[id number] Age/Sex: 62 / M ADM Date: 08/11/23 Loc: [place] Room: Type: [facility] Attending Dr: Savanna Mcclain MD Copies to: [...] Koko Hernandez M.D.08/11/2023 5:00 PM Dictation Location: [place] [address] Transcribed By: [facility] 08/11/231699 Dictated By: Koko Hernandez DO 08/11/231656 Signed By: 08/11/231699 Normal [facility] XR thoracic spine 3V*on 07-27 XR thoracic spine 3V* [facility] Main [address] [place] [address] XRay Report Signed Patient: Koko Meier MR#: [id number] : 1960 Acct:[id number] Age/Sex: 62 / M ADM Date: 08/11/23 Loc: [place] Room: Type: [facility] Attending Dr: Savanna Mcclain MD Copies to: [...] Koko Hernandez M.D.08/11/2023 5:01 PM Dictation Location: [facility]--12 Transcribed By: [facility] 08/11/231700 Dictated By: Koko Hernandez 08/11/231699 Signed By: 08/11/231700 Normal [facility] XR lumbar spine 6V w bending on 08-01-2023 XR lumbar spine 6V w bending [facility] Main [address] [place] [address] XRay Report Signed Patient: Koko Meier MR#: [id number] : 1960 Acct:[id number] Age/Sex: 62 / M ADM Date: 08/01/23 Loc: XD Room: Type: [facility] Attending Dr: Josh Melvin DO Copies to: [...] Monika Eastman M.D.08/01/2023 1:06 PM Dictation Location: [place] [address] Transcribed By: SHIRLEY 08/01/23 1306 Dictated By: Monika Eastman MD 08/01/23 1210 Signed By: 08/01/23 1306 Normal [facility] A1C with Estimated Average G alice 04-21-2023 Glucose [Mass/Vol] 197 mg/dL Normal [facility] Comment on above: Result Comment: PERF ORMED BY: [place] [address] PATHOLOGIST JEWEL BEARING DRILLER CLEVE CANDELARIA M.D. Performed By: #### C BC, BMP #### [place] [address] [place] Alanine aminotransferase [En zymatic activity/volume] in Serum or PlasmaOrdered By: Josh Bunting on 04-21-2023 ALT [Catalytic activity/Vol] 19 U/L Normal 7-52 [facility] Comment on above: Order Comment: PT FA STED 12 HOURS Performed By: #### C BC, BMP #### [facility] [address] [place] [address] [place] Albumin [Mass/volume] in Ser um or Plasma by Bromocresol green (BCG) dye binding methoOrdered By: Josh Bunting on 04-21-2023 Albumin BCG dye [Mass/Vol] 4.2 g/dL 3.5-5.7 [facility] Alkaline phosphatase [Enzyma tic activity/volume] in Serum or PlasmaOrdered By: Josh Bunting on 04-21-2023 ALP [Catalytic activity/Vol] 67 U/L Normal 34-104 [facility] Comment on above: Order Comment: PT FA STED 12 HOURS Performed By: #### C BC, BMP #### [facility] [address] [place] [address] [place] Aspartate aminotransferase [ Enzymatic activity/volume] in Serum or PlasmaOrdered By: Josh Bunting on 04-21-2023 AST [Catalytic activity/Vol] 16 U/L Normal 13-39 [facility] Comment on above: Order Comment: PT FA STED 12 HOURS Performed By: #### C BC, BMP #### [address] Automated basophil %Ordered By: Josh Bunting on 04-21-2023 Basophils/100 WBC (Bld) 0.9 % Normal . [facility] Comment on above: Performed By: #### C BC, BMP #### [address] Automated basophil countOrde red By: Josh Bunting on 04-21-2023 Basophils (Bld) [#/Vol] 0.1 10*3/uL Normal 0.0-0.2 [facility] Comment on above: Result Comment: PERF ORMED BY: [place] [address] PATHOLOGIST JEWEL BEARING DRILLER CLEVE CANDELARIA M.D. Performed By: #### C BC, BMP #### [address] Automated blood monocyte cou ntOrdered By: Josh Bunting on 04-21-2023 Monocytes (Bld) [#/Vol] 0.4 10*3/uL Normal 0.0-0.8 [facility] Comment on above: Performed By: #### C BC, BMP #### [address] Automated eosinophil %Ordere d By: Josh Bunting on 04-21-2023 Eosinophils/100 WBC (Bld) 2.1 % Normal . [facility] Comment on above: Performed By: #### C BC, BMP #### [address] Automated eosinophil countOr dered By: Josh Bunting on 04-21-2023 Eosinophils (Bld) [#/Vol] 0.2 10*3/uL Normal 0.0-0.45 [facility] Comment on above: Performed By: #### C BC, BMP #### [address] Automated monocyte %Ordered By: Josh Bunting on 04-21-2023 Monocytes/100 WBC (Bld) 5.5 % Normal . [facility] Comment on above: Performed By: #### C BC, BMP #### [facility] [address] [place] [address] [place] Automated neutrophil %Ordere d By: Josh Bunting on 04-21-2023 Neutrophils/100 WBC (Bld) 65.2 % Normal . [facility] Comment on above: Performed By: #### C BC, BMP #### [facility] [address] [place] [address] [place] Bilirubin.total [Mass/volume ] in Serum or PlasmaOrdered By: Josh Bunting on 04-21-2023 Bilirubin [Mass/Vol] 0.4 mg/dL Normal 0.3-1.0 [facility] Comment on above: Order Comment: PT FA STED 12 HOURS Performed By: #### C BC, BMP #### [place] [address] [place] Calcium [Mass/volume] in Ser um or PlasmaOrdered By: Josh Bunting on 04-21-2023 Calcium [Mass/Vol] 9.3 mg/dL Normal 8.6-10.3 [facility] Comment on above: Order Comment: PT FA STED 12 HOURS Performed By: #### C BC, BMP #### [place] [address] [place] Carbon dioxide, total [Moles /volume] in Serum or PlasmaOrdered By: Josh Bunting on 04-21-2023 CO2 [Moles/Vol] 30.3 mmol/L Normal 21.0-31.0 [facility] Comment on above: Order Comment: PT FA STED 12 HOURS Performed By: #### C BC, BMP #### [facility] [address] [place] [id number] [place] Chloride [Moles/volume] in S raffi or PlasmaOrdered By: Josh Bunting on 04-21-2023 Chloride [Moles/Vol] 99 mmol/L Normal 98-107 [facility] Comment on above: Order Comment: PT FA STED 12 HOURS Performed By: #### C BC, BMP #### [place] [address] [place] Cholesterol [Mass/volume] in Serum or PlasmaOrdered By: Josh Melvin on 04-21-2023 Cholesterol [Mass/Vol] 300 mg/dL High 140-200 [facility] Comment on above: Chol less than 200 m g/dl low riskChol 201-239 mg/dl borderline riskChol 240 mg/dl and greater high risk Order Comment: PT FA STED 12 HOURS Result Comment: Chol less than 200 mg/dl low risk Chol 201-239 mg/dl borderline risk Chol 240 mg/dl and greater high risk Performed By: #### C BC, BMP #### [facility] [address] Cholesterol in LDL Calc [Mas s/Vol]Ordered By: Josh Melvin on 04-21-2023 Cholesterol in LDL [Mass/Vol] 207 mg/dL 0-100 [facility] Comment on above: LDL ATP III CLASSIFI CATIONLDL less than 100 mg/dL OptimalLDL 100-129 mg/dL Near or above optimalLDL 130-159 mg/dL Borderline highLDL 160-189 mg/dL HighLDL greater than 189 mg/dL Very high Cholesterol in VLDL Calc [Ma ss/Vol]Ordered By: Josh Melvin on 04-21-2023 Cholesterol in VLDL [Mass/Vol] 32 mg/dL [facility] Complete Blood Count Auto Di ffon 04-21-2023 Mean Corpuscular HGB Conc 34.2 g/dL Normal 32.5-35.6 [facility] Comment on above: Performed By: #### C BC, BMP #### [facility] [address] NRBC% 0.0 /100{WBC} Normal 0-0.5 [facility] Comment on above: Performed By: #### C BC, BMP #### [facility] [address] Comprehensive Metabolic Pane brennen 04-21-2023 Albumin [Mass/Vol] 4.2 g/dL Normal 3.5-5.7 [facility] Comment on above: Order Comment: PT FA STED 12 HOURS Performed By: #### C BC, BMP #### [facility] [address] [place] [address] [place] GFR/1.73 sq M.predicted MDRD (S/P/Bld) [Vol rate/Area] mL/min/{1.73_m2} Normal [facility] Comment on above: Order Comment: PT FA STED 12 HOURS Performed By: #### C AMAIRANI, BMP #### [facility] [address] Creatinine [Mass/volume] in Serum or PlasmaOrdered By: Josh Bunting on 04-21-2023 Creatinine [Mass/Vol] 0.90 mg/dL Normal 0.70-1.30 [facility] Comment on above: Order Comment: PT FA STED 12 HOURS Performed By: #### C AMAIRANI, BMP #### [facility] [address] Erythrocyte distribution wid th [Ratio] by Automated countOrdered By: Josh Bunting on 04-21-2023 Erythrocyte distribution width (RBC) [Ratio] 15.0 % High 12.0-14.8 [facility] Comment on above: Performed By: #### C AMAIRANI, BMP #### [address] Erythrocytes [#/volume] in B lood by Automated countOrdered By: Josh Bunting on 04-21-2023 RBC (Bld) [#/Vol] 5.13 10*6/uL Normal 3.90-5.60 [facility] Comment on above: Performed By: #### Kristi BALES, BMP #### [place] [address] [place] Glucose [Mass/volume] in Ser um or PlasmaOrdered By: Josh Bunting on 04-21-2023 Glucose [Mass/Vol] 149 mg/dL High 70-100 [facility] Comment on above: ADA recommended refe rence rangeRandom Glucose Reference Range is dependent on time and content of last meal. Glucose of more than 200 mg/dL in a nonstressed, ambulatory subject supports the diagnosis of Diabetes Mellitus. Order Comment: PT FA STED 12 HOURS Result Comment: [place] om Glucose Reference Range is dependent on time and content of last meal. Glucose of more than 200 mg/dL in a nonstressed, ambulatory subject supports the diagnosis of Diabetes Mellitus. ADA recommended reference range Performed By: #### C AMAIRANI, BMP #### [address] Glucose mean value [Mass/vol ume] in Blood Estimated from glycated hemoglobinOrdered By: Josh Melvin on 04-21-2023 Average glucose Estimated from glycated hemoglobin (Bld) [Mass/Vol] 197 mg/dL [facility] Hematocrit [Volume Fraction] of Blood by Automated countOrdered By: Josh Melvin on 04-21-2023 Hematocrit (Bld) [Volume fraction] 48.8 % Normal 38.8-50.0 [facility] Comment on above: Performed By: #### C AMAIRANI, BMP #### [address] Hemoglobin A1c percentageOrd ered By: Josh Melvin on 04-21-2023 HbA1c (Bld) [Mass fraction] 8.5 % High 4.3-5.6 [facility] Comment on above: Increased risk for d iabetes: 5.7 - 6.4diabetes: >6.4glycemic control for adults with diabetes: <7.0 Result Comment: Incr eased risk for diabetes: 5.7 - 6.4 diabetes: >6.4 glycemic control for adults with diabetes: <7.0 Performed By: #### C AMAIRANI, BMP #### [address] Hemoglobin [Mass/volume] in BloodOrdered By: Josh Melvin on 04-21-2023 Hemoglobin (Bld) [Mass/Vol] 16.7 g/dL Normal 13.0-17.0 [facility] Comment on above: Performed By: #### C AMAIRANI, BMP #### [place] [address] [place] Leukocytes [#/volume] correc charanjit for nucleated erythrocytes in Blood by Automated counOrdered By: Josh Bunjayleen on 04-21-2023 WBC corrected for nucl RBC Auto (Bld) [#/Vol] 7.1 10*3/uL 4.1-10.5 [facility] Leukocytes [#/volume] in Blo od by Automated countOrdered By: Josh Melvin on 04-21-2023 WBC (Bld) [#/Vol] 7.1 10*3/uL Normal 4.1-10.5 [facility] Comment on above: Performed By: #### C AMAIRANI, BMP #### [facility] [address] Lipid Panelon 04-21-2023 LDL Cholesterol,Calculated 207 mg/dL High 0-100 [facility] Comment on above: Order Comment: PT FA STED 12 HOURS Result Comment: LDL ATP III CLASSIFICATION LDL less than 100 mg/dL Optimal LDL 100-129 mg/dL Near or above optimal LDL 130-159 mg/dL Borderline high LDL 160-189 mg/dL High LDL greater than 189 mg/dL Very high Performed By: #### C AMAIRANI, BMP #### [facility] [address] Triglyceride w/Reflex 162 mg/dL High 0-149 [facility] Comment on above: Order Comment: PT FA STED 12 HOURS Result Comment: TRIG ATP III CLASSIFICATION TRIG less than 150 mg/dL Normal TRIG 150-199 mg/dL Borderline high TRIG 200-500 mg/dL High TRIG greater than 500 mg/dL Very high Standard traceable to the Center for Disease Conrtrol and Prevention (CDC) test method. Performed By: #### C AMAIRANI, BMP #### [address] VLDL CHOLESTEROL 32 mg/dL Normal [facility] Comment on above: Order Comment: PT FA STED 12 HOURS Performed By: #### C AMAIRANI, BMP #### [facility] [address] [place] [address] [place] Lymphocytes [#/volume] in Bl ood by Automated countOrdered By: Josh Melvin on 04-21-2023 Lymphocytes (Bld) [#/Vol] 1.9 10*3/uL Normal 1.00-4.8 [facility] Comment on above: Performed By: #### C AMAIRANI, BMP #### [facility] [address] [place] [id number] [place] Lymphocytes/100 leukocytes i n Blood by Automated countOrdered By: Josh Bunting on 04-21-2023 Lymphocytes/100 WBC (Bld) 26.3 % Normal . [facility] Comment on above: Performed By: #### C AMAIRANI, BMP #### [facility] [address] [place] [address] MCH [Entitic mass] by Automa charanjit countOrdered By: Josh Bunting on 04-21-2023 MCH (RBC) [Entitic mass] 32.5 pg Normal 27.5-35.2 [facility] Comment on above: Performed By: #### C AMAIRANI, BMP #### [facility] [address] [place] [address] MCHC Auto (RBC) [Mass/Vol]Or dered By: Josh Bunting on 04-21-2023 MCHC (RBC) [Mass/Vol] 34.2 g/dL 32.5-35.6 [facility] MCV [Entitic volume] by Auto mated countOrdered By: Josh Bunting on 04-21-2023 MCV (RBC) [Entitic vol] 95.2 fL Normal 83.5-101 [facility] Comment on above: Performed By: #### C AMAIRANI, BMP #### [facility] [address] [place] [address] Neutrophils [#/volume] in Bl ood by Automated countOrdered By: Josh Bunting on 04-21-2023 Neutrophils (Bld) [#/Vol] 4.6 10*3/uL Normal 1.8-7.7 [facility] Comment on above: Performed By: #### C AMAIRANI, BMP #### [address] No Panel InformationOrdered By: Josh Bunting on 04-21-2023 Estimated GFR (CKD-EPI) > 60.0 mL/Min [facility] Creatinine Clearance (Chem N/A [facility] Nucleated erythrocytes [Pres ence] in Blood by Automated countOrdered By: Josh Bunting on 04-21-2023 Nucleated RBC Auto Ql (Bld) 0.0 /100{WBC} 0-0.5 [facility] Platelet mean volume [Entiti c volume] in Blood by Automated countOrdered By: Josh Bunting on 04-21-2023 Platelet mean volume (Bld) [Entitic vol] 8.6 fL Normal 6.6-10.1 [facility] Comment on above: Performed By: #### C BC, BMP #### [address] Platelets [#/volume] in Bloo d by Automated countOrdered By: Josh Bunting on 04-21-2023 Platelets (Bld) [#/Vol] 200 10*3/uL Normal 150-450 [facility] Comment on above: Performed By: #### C BC, BMP #### [address] Potassium [Moles/volume] in Serum or PlasmaOrdered By: Josh Bunting on 04-21-2023 Potassium [Moles/Vol] 4.6 mmol/L Normal 3.5-5.1 [facility] Comment on above: Order Comment: PT FA STED 12 HOURS Performed By: #### C BC, BMP #### [address] Protein [Mass/volume] in Ser um or PlasmaOrdered By: Josh Bunting on 04-21-2023 Protein [Mass/Vol] 6.4 g/dL Normal 6.4-8.9 [facility] Comment on above: Order Comment: PT FA STED 12 HOURS Performed By: #### C BC, BMP #### [address] Serum globulin measurement b y calculation (mass/volume)Ordered By: Josh Bunting on 04-21-2023 Globulin (S) [Mass/Vol] 2.2 g/dL Normal [facility] Comment on above: Order Comment: PT FA STED 12 HOURS Performed By: #### C BC, BMP #### [address] Serum or plasma albumin/glob ulin mass ratioOrdered By: Josh Bunting on 06-26-2023 Albumin/Globulin [Mass ratio] 1.9 {ratio} Normal [facility] Comment on above: Order Comment: PT FA STED 12 HOURS Performed By: #### C AMAIRANI, BMP #### [facility] [address] Serum or plasma anion gap de terminationOrdered By: Josh Bunting on 04-21-2023 Anion gap [Moles/Vol] 11.3 mmol/L Normal 6.0-15.0 [facility] Comment on above: Order Comment: PT FA STED 12 HOURS Performed By: #### C AMAIRANI, BMP #### [facility] [address] Serum or plasma high density lipoprotein (HDL) cholesterol measurementOrdered By: Josh Bunting on 04-21-2023 Cholesterol in HDL [Mass/Vol] 61 mg/dL Normal 23-92 [facility] Comment on above: HDL CHOL ATP-III CLA SSIFICATION Cardiovascular RiskHDL > or equal to 60 mg/dL LOWHDL < 40 mg/dL HIGH Order Comment: PT FA STED 12 HOURS Result Comment: HDL CHOL ATP-III CLASSIFICATION Cardiovascular Risk HDL > or equal to 60 mg/dL LOW HDL < 40 mg/dL HIGH Performed By: #### C AMAIRANI, BMP #### [facility] [address] [place] [address] Serum or plasma total choles terol/high density lipoprotein (HDL) cholesterol mass ratOrdered By: Josh Bunting on 04-21-2023 Cholesterol.total/Chol esterol in HDL [Mass ratio] 4.9 {ratio} Normal <5.0 [facility] Comment on above: Order Comment: PT FA STED 12 HOURS Result Comment: PERF ORMED BY: [place] [address] PATHOLOGIST JEWEL BEARING DRILLER CLEVE CANDELARIA M.D. Performed By: #### C AMAIRANI, BMP #### [address] Sodium [Moles/volume] in Ser um or PlasmaOrdered By: Josh Bunting on 04-21-2023 Sodium [Moles/Vol] 136 mmol/L Normal 136-145 [facility] Comment on above: Order Comment: PT FA STED 12 HOURS Performed By: #### C BC, BMP #### [facility] [address] [place] [id number] [facility] Triglyceride [Mass/volume] i n Serum or PlasmaOrdered By: Josh Melvin on 04-21-2023 Triglyceride [Mass/Vol] 162 mg/dL 0-149 [facility] Comment on above: TRIG ATP III CLASSIF ICATIONTRIG less than 150 mg/dL NormalTRIG 150-199 mg/dL Borderline highTRIG 200-500 mg/dL High TRIG greater than 500 mg/dL Very highStandard traceable to the Center for Disease Conrtrol and Prevention (CDC) test method. Urea nitrogen [Mass/volume] in Serum or PlasmaOrdered By: Josh Bunting on 04-21-2023 Urea nitrogen [Mass/Vol] 25 mg/dL Normal 7-25 [facility] Comment on above: Order Comment: PT FA STED 12 HOURS Performed By: #### C BC, BMP #### [facility] [address] [place] [id number] [facility] CNPNon 04-10-2023 CNPN Telephone (OTOLCC) NIYAH MEIER ([id number]) 1960 Date Time Provider Department 04/10/23 [facility] During your visit today, we recorded the [...] by KIMBERLI COUCH on 04/15/23 [facility] [place] 03-26-2023 [facility] NIYAH MEIER ([id number]) 1960 M Date Time Provider Department 03/26/23 11:20 AM DONNY PERALTA During your visit today, we recorded the following information about you: Pulse Respiration 88/minute 17/minute Donny LOLI Peralta 03/26/2023 4:15 PM Signed Mr. Meier is [...] 2 to 3 weeks time. Donny Peralta APRN.MANAGER DEMAND CC: Josh Melvin DO Referring Provider: JOSH MELVIN [[id number]] Allergies As of Date: 03/26/2023 (No Known Allergies) Date Reviewed: 03/26/2023 Reviewed by: Olive Hui LPN - Fully Assessed Reason for Visit: Mouth lesion on left side [Other] Primary Visit Diagnosis:Laryngeal candidiasis [B37.89] Other Visit Diagnoses:Glossitis [K14.0] Oral candidiasis [B37.0] Hoarseness of voice [R49.0] History of alcohol abuse [F10.11] Order(s):COMP METABOLIC PANEL [SQCMP] Order #: [id number] FUTURE clotrimazole (MYCELEX) 10 mg trocheUse 1 Bud as instructed four times daily for 14 days.Disp: 56 tabletRfl: 0 Prescriptions as of 03/26/2023 - busPIRone HCl 30 mg tablet TAKE 1 TABLET BY MOUTH THREE TIMES DAILY FOR ANXIETY - celec (more content not included)... Normal [facility] Comprehensive metabolic 2000 panelon 03-26-2023 Albumin [Mass/Vol] 4.4 g/dL Normal 3.9-4.9 [facility] Comment on above: Order Comment: Speci men Type: BLOOD SPECIMEN Ordering Facility: [facility] Address: [address] [place] [address] Performed By: #### 2 4323-8 #### [facility] CLIA [id number] [address] [place] [address] [place] ALP [Catalytic activity/Vol] 90 U/L Normal 38-113 [facility] Comment on above: Order Comment: Speci men Type: BLOOD SPECIMEN Ordering Facility: [facility] Address: [address] [address] Performed By: #### 2 4323-8 #### [facility] CLIA [id number] [address] [place] [address] [place] ALT [Catalytic activity/Vol] 22 U/L Normal 10-54 [facility] Comment on above: Order Comment: Speci men Type: BLOOD SPECIMEN Ordering Facility: [facility] Address: [address] [address] Performed By: #### 2 4323-8 #### [facility] CLIA [id number] [address] [place] [address] [place] Anion gap [Moles/Vol] 11 mmol/L Normal 9-18 [facility] Comment on above: Order Comment: Speci men Type: BLOOD SPECIMEN Ordering Facility: [facility] Address: [address] [address] Performed By: #### 2 4323-8 #### [facility] CLIA [id number] [address] [place] [address] [place] AST [Catalytic activity/Vol] 23 U/L Normal 14-40 [facility] Comment on above: Order Comment: Speci men Type: BLOOD SPECIMEN Ordering Facility: [facility] Address: [address] Performed By: #### 2 4323-8 #### [facility] CLIA [id number] [address] [place] [address] [place] Bilirubin [Mass/Vol] 0.4 mg/dL Normal 0.2-1.3 [facility] Comment on above: Order Comment: Speci men Type: BLOOD SPECIMEN Ordering Facility: [facility] Address: [address] [place] [address] Performed By: #### 2 4323-8 #### [facility] CLIA [id number] [address] [place] [address] [place] Calcium [Mass/Vol] 9.6 mg/dL Normal 8.5-10.2 [facility] Comment on above: Order Comment: Speci men Type: BLOOD SPECIMEN Ordering Facility: [facility] Address: [address] [place] [address] Performed By: #### 2 4323-8 #### [facility] CLIA [id number] [address] [place] [address] [place] Chloride [Moles/Vol] 97 mmol/L Normal 97-105 [facility] Comment on above: Order Comment: Speci men Type: BLOOD SPECIMEN Ordering Facility: [facility] Address: [address] [place] [address] Performed By: #### 2 4323-8 #### [facility] CLIA [id number] [address] [place] [address] [place] CO2 [Moles/Vol] 27 mmol/L Normal 22-30 [facility] Comment on above: Order Comment: Speci men Type: BLOOD SPECIMEN Ordering Facility: [facility] Address: [address] [address] Performed By: #### 2 4323-8 #### [facility] CLIA [id number] [address] [place] [address] [place] Creatinine [Mass/Vol] 0.99 mg/dL Normal 0.73-1.22 [facility] Comment on above: Order Comment: Speci men Type: BLOOD SPECIMEN Ordering Facility: [facility] Address: [address] [address] Performed By: #### 2 4323-8 #### [facility] CLIA [id number] [address] [place] [address] [place] ESTIMATED GLOMERULAR FILTRATION RATE 85 mL/min/1.73m??? Normal >=60 [facility] Comment on above: Order Comment: Speci men Type: BLOOD SPECIMEN Ordering Facility: [facility] Address: [address] [place] [address] Result Comment: Neha mated Glomerular Filtration Rate [...] GFR. Performed By: #### 2 4323-8 #### [facility] CLIA [id number] [address] [place] [address] [place] Glucose [Mass/Vol] 85 mg/dL Normal 74-99 [facility] Comment on above: Order Comment: Speci men Type: BLOOD SPECIMEN Ordering Facility: [facility] Address: [address] [address] Result Comment: The [place] Diabetes Association (ADA) provides guidance for cutoff [...] Standards of Medical Care in Diabetes 2016, [place] Diabetes Association. Diabetes Care. 2016.39(Suppl 1). Performed By: #### 2 4323-8 #### [facility] CLIA [id number] [address] [place] [address] [place] Potassium [Moles/Vol] 4.5 mmol/L Normal 3.7-5.1 [facility] Comment on above: Order Comment: Speci men Type: BLOOD SPECIMEN Ordering Facility: [facility] Address: [address] [place] [address] Performed By: #### 2 4323-8 #### [facility] CLIA [id number] [address] [place] [address] [place] Protein [Mass/Vol] 7.0 g/dL Normal 6.3-8.0 [facility] Comment on above: Order Comment: Demetriusi men Type: BLOOD SPECIMEN Ordering Facility: [facility] Address: [address] [address] Performed By: #### 2 4323-8 #### [facility] CLIA [id number] [address] [place] [address] [place] Sodium [Moles/Vol] 135 mmol/L Low 136-144 [facility] Comment on above: Order Comment: Speci men Type: BLOOD SPECIMEN Ordering Facility: [facility] Address: [address] [address] Performed By: #### 2 4323-8 #### [facility] CLIA [id number] [address] [place] [address] [place] Urea nitrogen [Mass/Vol] 25 mg/dL High 9-24 [facility] Comment on above: Order Comment: Speci men Type: BLOOD SPECIMEN Ordering Facility: [facility] Address: [address] [id number] Performed By: #### 2 4323-8 #### [facility] CLIA [id number] [address] [facility] [id number] [place] Body fluid albumin measureme nt (mass/volume)Ordered By: Josh Melvin on 09-30-2022 Albumin (Body fld) [Mass/Vol] 3.6 g/dL 3.2-5.5 [facility] Cholesterol [Mass/volume] in Serum or PlasmaOrdered By: Josh Melvin on 09-30-2022 Cholesterol [Mass/Vol] 154 mg/dL 140-200 [facility] Comment on above: Chol less than 200 m g/dl low riskChol 201-239 mg/dl borderline riskChol 240 mg/dl and greater high risk Cholesterol in LDL Calc [Mas s/Vol]Ordered By: Josh Melvin on 09-30-2022 Cholesterol in LDL [Mass/Vol] 93 mg/dL 0-100 [facility] Comment on above: LDL ATP III CLASSIFI CATIONLDL less than 100 mg/dL OptimalLDL 100-129 mg/dL Near or above optimalLDL 130-159 mg/dL Borderline highLDL 160-189 mg/dL HighLDL greater than 189 mg/dL Very high Cholesterol in VLDL Calc [Ma ss/Vol]Ordered By: Josh Melvin on 09-30-2022 Cholesterol in VLDL [Mass/Vol] 17 mg/dL [facility] Creatinine and Glomerular fi ltration rate.predicted panel (S/P/Bld)Ordered By: Josh Melvin on 09-30-2022 Creatinine [Mass/Vol] 0.89 mg/dL 0.64-1.27 [facility] Estimated glomerular filtrat ion rate (GFR) non- AmericanOrdered By: Josh Melvin on 09-30-2022 GFR/1.73 sq M.predicted among non-blacks MDRD (S/P/Bld) [Vol rate/Area] > 60 mL/Min [facility] Globulin Calc (S) [Mass/Vol] Ordered By: Josh Melvin on 09-30-2022 Globulin (S) [Mass/Vol] 3.1 g/dL [facility] Glucose mean value [Mass/vol ume] in Blood Estimated from glycated hemoglobinOrdered By: Josh Melvin on 09-30-2022 Average glucose Estimated from glycated hemoglobin (Bld) [Mass/Vol] 180 mg/dL [facility] Hemoglobin A1c percentageOrd ered By: Josh Melvin on 09-30-2022 HbA1c (Bld) [Mass fraction] 7.9 % 4.3-5.6 [facility] Comment on above: Increased risk for d iabetes: 5.7 - 6.4diabetes: >6.4glycemic control for adults with diabetes: <7.0 No Panel InformationOrdered By: Josh Melvin on 09-30-2022 Estimated GFR () > 60 mL/Min [facility] Comment on above: GFR estimated refere nce range: According to KDOQI guidelines, <60 ml/min/1.73m2 is sufficient to diagnose a patient with chronic kidney disease. Pharmacy Creatinine Clearance (Chem N/A [facility] Protein [Mass/volume] in Ser um or PlasmaOrdered By: Josh Melvin on 09-30-2022 Protein [Mass/Vol] 6.7 g/dL 6.1-7.9 [facility] Serum or plasma alanine cullen otransferase measurement without P-5'-P (enzymatic activiOrdered By: Josh Melvin on 09-30-2022 ALT No additional P-5'-P [Catalytic activity/Vol] 19 U/L 10-60 [facility] Serum or plasma albumin/glob ulin mass ratioOrdered By: Josh Melvin on 09-30-2022 Albumin/Globulin [Mass ratio] 1.2 {ratio} [facility] Serum or plasma alkaline juliette sphatase measurement (enzymatic activity/volume)Ordered By: Josh Melvin on 09-30-2022 ALP [Catalytic activity/Vol] 78 U/L 32-92 [facility] Serum or plasma anion gap de terminationOrdered By: Josh Melvin on 09-30-2022 Anion gap [Moles/Vol] 19.0 mmol/L 6.0-15.0 [facility] Serum or plasma aspartate am inotransferase measurement (enzymatic activity/volume)Ordered By: Josh Melvin on 09-30-2022 AST [Catalytic activity/Vol] 17 U/L 10-42 [facility] Serum or plasma calcium ezra urement (mass/volume)Ordered By: Josh Melvin on 09-30-2022 Calcium [Mass/Vol] 9.6 mg/dL 8.2-10.2 [facility] Serum or plasma chloride brenda surement (moles/volume)Ordered By: Josh Melvin on 09-30-2022 Chloride [Moles/Vol] 94 mmol/L 95-114 [facility] Serum or plasma glucose ezra urement (mass/volume)Ordered By: Josh Melvin on 09-30-2022 Glucose [Mass/Vol] 149 mg/dL 70-100 [facility] Comment on above: ADA recommended refe rence rangeRandom Glucose Reference Range is dependent on time and content of last meal. Glucose of more than 200 mg/dL in a nonstressed, ambulatory subject supports the diagnosis of Diabetes Mellitus. Serum or plasma high density lipoprotein (HDL) cholesterol measurementOrdered By: Josh Melvin on 09-30-2022 Cholesterol in HDL [Mass/Vol] 44 mg/dL 29-71 [facility] Comment on above: HDL CHOL ATP-III CLA SSIFICATION Cardiovascular RiskHDL > or equal to 60 mg/dL LOWHDL < 40 mg/dL HIGH Serum or plasma potassium me asurement (moles/volume)Ordered By: Josh Melvin on 09-30-2022 Potassium [Moles/Vol] 4.9 mmol/L 3.5-5.1 [facility] Serum or plasma sodium measu rement (moles/volume)Ordered By: Josh Melvin on 09-30-2022 Sodium [Moles/Vol] 137 mmol/L 136-146 [facility] Serum or plasma total biliru bin measurement (mass/volume)Ordered By: Josh Melvin on 09-30-2022 Bilirubin [Mass/Vol] 0.7 mg/dL 0.3-1.2 [facility] Serum or plasma total carbon dioxide measurement (moles/volume)Ordered By: Josh Melvin on 09-30-2022 CO2 [Moles/Vol] 28.9 mmol/L 22.0-30.0 [facility] Serum or plasma total choles terol/high density lipoprotein (HDL) cholesterol mass ratOrdered By: Josh Melvin on 09-30-2022 Cholesterol.total/Chol esterol in HDL [Mass ratio] 3.5 {ratio} <5.0 [facility] Serum or plasma urea nitroge n measurement (mass/volume)Ordered By: Josh Melvin on 09-30-2022 Urea nitrogen [Mass/Vol] 19 mg/dL 9- [facility] Triglyceride [Mass/volume] i n Serum or PlasmaOrdered By: Johs Melvin on 09-30-2022 Triglyceride [Mass/Vol] 86 mg/dL 35-149 [facility] Comment on above: TRIG ATP III CLASSIF ICATIONTRIG less than 150 mg/dL NormalTRIG 150-199 mg/dL Borderline highTRIG 200-500 mg/dL High TRIG greater than 500 mg/dL Very highStandard traceable to the Center for Disease Conrtrol and Prevention (CDC) test method. IntraOperative Documentson 0 04-25-2021 IntraOperative Documents [id number]:127 Normal [facility] Main OR Intraoperative Recor don 04-25-2021 Main OR Intraoperative Record IntraOp Document Type FT Summary Primary Physician: Kwame Yang DO Finalized Date/Time: 04/25/21 16:46:35 Pt. Name: KOKO MEIER/Sex: 1960 Male Med Rec #: [id number] Physician: Kwame Yang DO Financial #: [id number] Pt. Type: I Room/Bed: N306 Admit/Disch: 04/18/21 08:03:48 - 04/19/21 13:50:00 Institution: Case Times FT Entry 1 Patient Times In Room 04/18/21 10:01:00 Out Room 04/18/21 12:40:00 Procedure Times Start 04/18/21 10:45:00 Stop 04/18/21 12:30:00 Anesthesia Times Start 04/18/21 10:01:00 Stop 04/18/21 12:40:00 Block Timeout w/ 04/18/21 09:08:00 Anesthesia Last Modified By: Kasi KOO, Nandini Chavarria 04/18/21 12:41:32 General Comments: 04/20/21 Chart open to review zev dolan rn 04/20/21 send charges. L Annalisa KOO Case Attendance FT Entry 1 Entry 2 Entry 3 Case Attendee Peterson PIPELINE DISPATCHER, Jimmy Yang DO, Kwame Alas FAMILY SERVICES WORKER, Ailyn Hankins Role Performed Anesthesiologist Surgeon - Primary FAMILY SERVICES WORKER/SA Tester Electronic Scale Time In 04/18/21 10:01:00 04/18/21 10:01:00 04/18/21 10:01:00 Time Out 04/18/21 12:40:00 04/18/21 12:40:00 04/18/21 12:40:00 Procedure SHOULDER TOTAL SHOULDER TOTAL SHOULDER TOTAL ARTHROPLASTY(Right) ARTHROPLASTY(Right) ARTHROPLASTY(Right) Comments supervised by Dr. Linton Last Modified By: Kasi RN, Nandini Villaseñor RN, Nandini Villaseñor RN, Nandini Chavarria 04/18/21 12:41:34 04/18/21 12:41:34 04/18/21 12:41:34 Entry 4 Entry 5 Entry 6 Case Attendee Kasi KOO, Nandini Goldberg FAMILY SERVICES WORKER, Christiano Ballard FAMILY SERVICES WORKER, FA, Mensa K Role Performed Area Sales Manager - Primary Scrub - Primary Staff - [...] DO, Given Participants Jimmy Winkler CRNA, Roth FAMILY SERVICES WORKER, Ailyn Hankins, Nandini Villaseñor RN, Boyer FAMILY SERVICES WORKER, Elio Burnham FAMILY SERVICES WORKER, FA, Mensjeny K Time Out Complete 04/18/21 [...] and tissue Entry 1 Skin Integrity Intact, [place], Warm, and Skin Abnormality No Dry (more content not included)... Normal [facility] Main OR Preoperative Recordo n 04-25-2021 Main OR Preoperative Record PreOp Document Type FT Summary Primary Physician: Kwame Yang DO Finalized Date/Time: 04/25/21 16:43:54 Pt. Name: KOKO MEIER D.O.B./Sex: 1960 Male Med Rec #: [id number] Physician: Kwame Yang DO Financial #: [id number] Pt. Type: Room/Bed: [place] [address] Admit/Disch: 04/18/21 08:03:48 - 04/19/21 13:50:00 Institution: [...] Signed By: Nandini Villaseñor RN 04/25/21 16:43 [facility] Coding Summary.on 04-24-2021 Coding Summary. CD:[id number] Gh0bWw+ PGhlYWQ+QZ0UJMLjE86ynZZkpM2 LW8sBHQ0JGLTKRDWVEG8CJS7yzZ O1IOyrV2XuxxRt IjcrtANvEP92SCr7HVC5aIhsSYm gnY7owBRyG0v1ShTfYN68rK88JG tsMHXuOjU9VlIdsnionVRx H4eiSxTsdMLgMei+PHRhYmxlIHd sNCZoXNnfXPYgTnQchGyjXE5sQo 9yZGVyLWNvbGxhcHNlOiBj m1lmOPAiVHrhMP4ebObxP1DckJP 5LZIkf2m4Dj75qPT+TAVhXMB2bV mbVZjry818JkQrs3xeKET6 rUJoZPtaXTO8J82xt7B5YDMcQOB wEVM8zGA7gH0rwVxunxmmY3JozW KsJgW0AOC0hLYcsU9xeQet vjnjmH1wOyp+D63HVI6SIUGARE6 AKav3Z5UvHhsuzHE+HF96QIWkXM 35vPYguEKuq9jxnNs7HzMo KOIhXVH8hDblUNsqo9VfSNTrN52 ndHJmm5K8GDIqlBhdkBEkQdVlzJ W9xC7eUBhffkxfj2kdakqu Viska9dqrs94yL26B04dHYnoEGO eIOS1PJPqSOHsdKcxsx6grF4cZz 8+SFbql7rip5ptmZv8TeGf ANSwwlTlaEvqBUS4q5WsIu17X3N wfTuch1MpVzs1hi07vCZsb4H6fS Q7MHhtTZKmoT1cPEumTnB1 DWBiAaZoeA53eGXrNEcaYc1saMi ldYahSG2nOLCjcvvyQFKeuE9hWR UpzZJbxWmhXA8wHCGizgaf b429SqUhBCB7FZYtfWBdL0UtvA8 xApCyUZIlZAGlE8QwtCOcIKqpE5 47RHjyXeJ2ESCmllIhJ9Xt EECfpBjxLtN7z4Y3Ap3He3Fyulp wEFM8JAnuDNQ3IaM8FmOjAuS1T5 KaCsb1ZRJqtJizTM9jS3Cv IJUvcogfowyxoFH1GUEqXCZwbT0 7kBSqJNheXd2kj4U9n549ASPsPI LvwB33Es4aiBjgTQNcxKEQ wR8ryjumj1lqoablHmNzTQTyXFu 3LBi7PAAkkWswRqIqDWW0WwO0YX J7xFYnlB8evVheasjrrF8f Oyc+M21yuO7yOLX0BIX3cgjcRJM cwxEoXG39VY04M7WeMcxqqJWbtH U+DVTmbcSltReaOY6dPqPn u8wak9VbCGtrU3FnLAEiGEkuAlq 7PKJiDKZ5oHX2xW2cXVHmTOmmg8 W6oAM3Z1RexiZkyl6ig2cu GWVnYNdkG74njAVrs1I7MBVujIK 7AXUkeGbkZdCgeI93Ctt+PGNvbG qfo0ZqQdvzy1wnc6mbkLy5 UtWaGMYjpiVmtVwqWNN3j7TtCr5 0Y78vSQfqTMWuWFVqKORtTGQneV yaqq5hdY0qLr6+PGNvbCB3 vLS6uD9mGDCgMcR4RYnnN872JuQ erBHzLqqpo6kda6zivUl8HdHzSP FrelEcpSjkXBF4o9ShPz68 L83tHNhgREUhGENyDLMaFFJxaYi vro2pbR6zAe4+FK1mi0heks64yP 48dHI+CLMwMHQ4rQqeFMeh XRCgwM9vKDyzXrF6FQWnZnWmhU2 6aYLlAFfzQy2ouUragDrqWW7vIU Vjmkwrc826HiGgq7evHRVs nPAkHPoxCLJ2U15lq5L3AUNiYKI aGRT4xJQ3bK1mwIljfxupoTLoxP pqkyHaoEfkMRhnNWboT084 IHRvcDsnPlBhdGllbnQgTmFtZTo 5J9QlXme5PVCqpBofJV8hhAFoNQ rlCl1duNedgYjcAQ3hYMGz csrjf265GpLzt5gmQBIkyWSmQJs rWFL7M92na6T1ZJYkITLsAWQ5qJ B5zV8rnIvuzyucdCYnxArs xzVzlZxjCFwbBZraD565WSEmhVr uSzTnjcGzIVKbjJS7RM23TM24fH Nju6Y6dPK9A6BvAILewrvo zmwmxSS1DEIkWGKkxV82Cg7ktYp mWn1oZVYaCKY0SFEbsMTfQ4BbhK 8cRmLnIIUvIEEdN5PbsEPp MAeoW537ALhaWpQ0XAFxliFyX3O jTFAcgWpzNbT4i0W5Sh2FC6E7UO 50CU92iLIsj3L7xJK5D9Sb EUMpfrxgkxmaqYF3OEVgHBNcbE5 2Fa6dpZwuDo2rMNKqIZE9BPWiiL JdI9GjmS5qDmLrMBVlJMDr F5UkrHTvYIgvR231ISnsPsP6GHJ cchHwI5PhAAEkhEgzTzA4t8P9Qt 6VAEp5GG52NN67fYFwo8B5 tUA5X8ZbJPEgpjqphasbeJO3STQ aNXUwdU35Dr8hbUznJm4bBAKbZV E5ZOVnqIYbT0UuaR9tVmDa VJJhIOKuC1CcpJDyYEcnB209CId pEaZ6UUZbwiJgT8UpAWMzbYtjUx N1x1C2Hb3NTCGeJI97UWD2 lOI2BR64PJ71X1WyVauqeCPyqJH +PHRhYmxlIHdpZHRoPScxMDAlJy GaiFvxXW2gLj2zRFYdXABz iSmhqTIxLbPit2inNZXjZTxsZJ8 rgAjnE2DhwEC9AVTdp7m2Xm13U5 5dJ8OqrFK+OPZitJC0nZF3 zD1qXxRbSuQ9DDoxN066KgHgmNJ rJcscb4fbb9gsjKy4HeN6RNVdll YkbYqfYQI5l3AlLa75O08l IHdpZHRoPSIxNSUiIHZhbGlnbj0 idX3sRt5+DQXsiCP5rHD9sY6wAz KtCrC2XDuuE363UzLrmZOu Bxpqm3tdr9vdoCq5CzNvYUQnhnF wyTsrVKL3u6UsNo59L5KtdRfhh9 HxFzm6wu53gDAnp8J4dQB2 Y8VfCIPdtjvbqHVitQkkBP5tOBS fdvwrVOCslM2jBPMsY4e1YkPlWv W3NWvjX8RhuuI8IFGkbYKn ENujEJB8J79fo6O2MWRuSKIlHDD 9fTQ0iM2tcJamoktdzNFoaXumob OiyKpgPDkdMTzkW771SBJn cErtKTKlyE4rGHAqnFYwlSwbLD9 pZICnonoeJyTPRK1OIBOeOCvMZc ZSRVkgUzwvdGQ+PHRkIHN0 hXxlXRebVMDqrC2pSZCpS7s9LhL qOpQ3URpsV5ZfDWSqcmljFq05jF 0jGxJxYkC7HUqbJ0LlunP0 WPMrzOCzPXaxQTB5D25yc3Y7SQY sTJWmTAW6pOT6xP1kuAionbifgJ VmdDsgdmVydGljYWwtYWxp Q129KJXidXlqJbVpTlSdLgE5UHl 9U1PzJfw6AIJioTzoKD5vtJPmPD odHf0enCclmYibYF3xWDIp qdyjWXCgrM0nFEApcGXxqYvwTH1 aKOVwaqwya344TbIzNVL7LOHskP ZmG9CxpX6rYhBcCERnHYVn I6McaWNwFIqgB380FMtqLcD2GAG yjqGzA0JvXRGsuAqlSsI1z2O2Jx 42MiBZZWFyczwvdGQ+PHRk KCL1zRmgSVhoKUCpuG5bFGPgK7f 1YfAmCpE9YUpmR5JfGKEoqbeiWu 50wD3hMcLwJyH3RXhzC6En ufH2JDNpyNRqMZauDTA7Z36nn8K 6DGLyCWVhNHU2hXT4wB5azJrxck ogbGVmdDsgdmVydGljYWwt KXdpO496HZAmnUmdAo7emOD1S2T vHjs4OLMdlInbOP8eaKGpNRkzUf 1byRhphWeeOB8qRUIifyqy NQNkoZ3lFKWsfPWhgPflUN1xFUE ckvstn126DtElGYB4BXDlwWQbN5 RsfF2rSaCrTWGtUTArP9Kd nAVdQJxrK381XGzdByX3RYCbgnM hB1UiAFWuvPriAaF4e3B4At6Lid GmnUsctpA7F4OaKlmpeKG+ HX94YAIiML03rNZkuEZjq5pfnPk 0XgHiBLEbXBL7dUguHYrxc9YkLH PuP45dxOUue9U6ZCQadVvb cKEtIbKgrKE0cD3cXBtzdaers7h yvouzLyaax7sdft46mN15M90mIS dpZHRoPSIzMCUiIHZhbGln aq2rmO5tLg7+DZVpfHY4mIZ0iE5 sXsGsHxA6SXutZ369GnJrrDYyIy tyl3yco4dnyZy1AaZgZHVr pwEjuPdlXQT8b3ZkQn94Y64lYQa vFUVqYWYpGJUvDHRhyYtayc2rzC 9wIi8+GK6ut5tdfw99pV15 dHI+EPWqAES2aHdvCTrpHKHrqN9 aMLojYxJ7JCKhCpNdzD35wPJhTV azXq7qyOxavWzqWQ5oWMEz qhrhc599GeXnx1asXWCitAVlRVp nAJY4J33cs3A2YSGsYLMdFOF6pX F2tF4xkOsubstqwCLmlDqt teNdlMbyFOxlYRlzS511HSXdzWy mVxWrvAGxF6ieuzTKLG2jPfnmiX Q+HLThLIV0cApvDDstNEId tK7jXKAsW7q4JlTdMxJ6PCrwP4T aviE7NSFcdKYgLIRhyOYObV0lgb jsb4zpyahiMhFdTPJbHFu2 ZHv7EFDbiXepFcHcYQA9YdG3HNW 8yGCldI4xfJsalbbqxE0lYhj+Rk lOOjwvdGQ+LEEjXBT9cAxq ZPvpZDKkwO1uJOXhK9f7NeFxSuF 8MSqtY5EcvaP4UMUleXBbDHRxvY LQfC1nvlvhe2fnyhrxRhHd NLQaZRx8ZPs6AAXhjPqgXdYaVUC 1XlU5UUF4cSOukM8pnDuzupwelT 9wOyc+TVJOOjwvdGQ+PHRk FMS5dVzpWYjwBJOauB3yHREkN2q 1EuYdNvA8DBheK5AiijM6GQZrpZ JkGLRfaNOQrI1zidwyt4lo leikQiRiSGUmPOh6CQn5CRUwkWk oEnAoSQQ5YaX5LMB2iWSwvW2xiD bkxysjxJ5uJii+WUJ3CMO7 EE69WT26H2UgAelnhCMquSM+PHR hYmxlIHdpZHRoPScxMDAlJyBzdH xzWM0dDi3sMKRvMOGaeUia cHNl (more content not included)... Normal [facility] Operative Reporton Operative Report Patient: SANTIAGO [...] preparations for the proposed operation continued.. Normal [facility] Comment on above: Result Comment: Elec [...] list: All Problems Arthritis / SNOMED CT 5297288 / Confirmed Diabetes mellitus / SNOMED CT 810889228 / Confirmed High cholesterol / SNOMED CT 66794613 / Confirmed High blood pressure / SNOMED CT 1642648656 / Confirmed Physical Examination Vital Signs 04/18/2021 [...] br/min br/min (more content not included)... Normal [facility] Comment on above: Result Comment: Elec [...] list: All Problems Arthritis / SNOMED CT 4300496 / Confirmed Diabetes mellitus / SNOMED CT 449953913 / Confirmed High cholesterol / SNOMED CT 29168341 / Confirmed High blood pressure / SNOMED CT 1042860918 / Confirmed Histories Past Medical History: No active or resolved past medical history items have been selected or recorded. Family History: Hypertension Father Diabetes mellitus type 2 Mother Brother Metastatic cancer Father Procedure history: Spine orthopedic surgery, lumbar (4130245992). Spine orthopedic surgery, cervical (6953983265). Arthroscopic repair of rotator cuff (4143799013). Carpal tunnel release (655596265). Appendectomy (976276955). Partial resection of colon (90966954). 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 Anesthetic Preoperative Plan Anesthesia: General. , Regional Interscalene Block. Anesthetic plan, risks, benefits, and alternatives discussed with the patient and/or family. Risks discussed: nausea, vomiting, headache, sore throat, dental injury, serious complications. Patient verbalized understanding. Communication: face to face with (patient 5 minutes, Pt educated on the importance of smoking cessation.). Normal [facility] Comment on above: Result Comment: Elec tronically Signed By: Christiano Linton Jr, DO\.br\Date and Time Signed: 04/23/21 08:08 EDT Auto Diffon 04-19-2021 Basophils/100 WBC (Bld) 0.4 % Normal 0.0-2.0 [facility] Comment on above: Order Comment: Order Added by Discern Expert. Performed By: #### 1 [id number] #### [facility] [address] [place] [address] Basophils/Leukocytes Auto (Bld) [Pure # fraction] 0.0 E9/L Normal 0.0-0.2 [facility] Comment on above: Order Comment: Order Added by Discern Expert. Performed By: #### 1 [id number] #### [facility] [address] [place] [address] Eosinophils/100 WBC (Bld) 0.1 % Normal 0.0-8.0 [facility] Comment on above: Order Comment: Order Added by Discern Expert. Performed By: #### 1 [id number] #### [facility] [address] [place] [address] Eosinophils/Leukocytes Auto (Bld) [Pure # fraction] 0.0 E9/L Normal 0.0-0.5 [facility] Comment on above: Order Comment: Order Added by Discern Expert. Performed By: #### 1 [id number] #### [facility] [address] [place] [address] Lymphocytes/100 WBC (Bld) 14.0 % Normal 14.0-50.0 [facility] Comment on above: Order Comment: Order Added by Discern Expert. Performed By: #### 1 [id number] #### [facility] [address] [place] [address] Lymphocytes/Leukocytes Auto (Bld) [Pure # fraction] 1.7 E9/L Normal 1.0-4.0 [facility] Comment on above: Order Comment: Order Added by Rafaela Expert. Performed By: #### 1 [id number] #### [facility] [address] [place] [address] Monocytes/100 WBC (Bld) 5.9 % Normal 4.0-14.0 [facility] Comment on above: Order Comment: Order Added by Discern Expert. Performed By: #### 1 [id number] #### [facility] [address] [place] [address] Monocytes/Leukocytes Auto (Bld) [Pure # fraction] 0.7 E9/L Normal 0.2-1.0 [facility] Comment on above: Order Comment: Order Added by Discern Expert. Performed By: #### 1 [id number] #### [facility] [address] [place] [address] Neutrophils/100 WBC (Bld) 79.6 % High 36.0-75.0 [facility] Comment on above: Order Comment: Order Added by Discern Expert. Performed By: #### 1 [id number] #### [facility] [address] [place] [address] Neutrophils/Leukocytes Auto (Bld) [Pure # fraction] 9.8 E9/L High 2.0-7.5 [facility] Comment on above: Order Comment: Order Added by Discern Expert. Performed By: #### 1 8503424 #### [facility] [address] [place] [address] BUNon 04-19-2021 Urea nitrogen [Mass/Vol] 19 mg/dL Normal 5-21 [facility] Comment on above: Performed By: #### 1 [id number] #### [facility] [address] [place] [address] CBC w/ Auto Diffon Erythrocyte distribution width (RBC) [Ratio] 13.1 % Normal 10.9-14.2 [facility] Comment on above: Performed By: #### 1 [id number] #### [facility] [address] [place] [address] Hematocrit (Bld) [Volume fraction] 42.1 % Normal 37.7-49.0 [facility] Comment on above: Performed By: #### 1 [id number] #### [facility] [address] [place] [address] Hemoglobin (Bld) [Mass/Vol] 14.0 g/dL Normal 13.5-17.5 [facility] Comment on above: Performed By: #### 1 [id number] #### [facility] [address] [place] [address] MCH (RBC) [Entitic mass] 31.5 pg Normal 27.0-34.0 [facility] Comment on above: Performed By: #### 1 [id number] #### [facility] [address] [place] [address] MCHC (RBC) [Mass/Vol] 33.3 g/dL Normal 31.4-36.0 [facility] Comment on above: Performed By: #### 1 [id number] #### [facility] [address] [place] [address] MCV (RBC) [Entitic vol] 94.4 fL Normal 80.0-100.0 [facility] Comment on above: Performed By: #### 1 [id number] #### [facility] [address] [place] [address] Platelet mean volume (Bld) [Entitic vol] 9.5 fL Normal 6.4-10.8 [facility] Comment on above: Performed By: #### 1 [id number] #### [facility] [address] [place] [address] Platelets (Bld) [#/Vol] 177.0 E9/L Normal 150.0-500. 0 [facility] Comment on above: Performed By: #### 1 [id number] #### [facility] [address] [place] [address] RBC (Bld) [#/Vol] 4.5 E12/L Normal 4.3-5.9 [facility] Comment on above: Performed By: #### 1 [id number] #### [facility] [address] [place] [address] WBC corrected for nucl RBC Auto (Bld) [#/Vol] 12.3 E9/L High 4.0-11.0 [facility] Comment on above: Performed By: #### 1 [id number] #### [facility] [address] [place] [address] Capillary Glucose POCon 03-28 Glucose [Mass/Vol] 226 mg/dL High 55-99 [facility] Comment on above: Result Comment: Joanna WALDEN Performed By: #### 2 [id number] #### [facility] [address] [place] [address] Glucose [Mass/Vol] 271 mg/dL High 55-99 [facility] Comment on above: Result Comment: Joanna WALDEN Performed By: #### 2 [id number] ####[facility] [address] [place] [address] Consent for Anesthesiaon Consent for Anesthesia [id number]#1.00CD:127 Normal [facility] Creatinineon 04-19-2021 Creatinine [Mass/Vol] 0.7 mg/dL Normal 0.5-1.3 [facility] Comment on above: Performed By: #### 1 [id number] #### [facility] [address] [place] [address] Discharge Instructionson Discharge Instructions [id number]#1.00CD:127 Normal [facility] Inpatient Clinical Summaryon 04-19-2021 Inpatient Clinical Summary [address] [address] Clinical Summary Person Information: Name: KOKO MEIER Age: 60 Years : 1960 Sex: Male PCP: JOSH MELVIN DO Marital Status: Phone: [phone] Race: White Ethnicity: Non- or Language: Icelandic Visit Id: Visit Reason: OA RIGHT SHOULDER Speciality: Acuity: Enc Type: Inpatient Med Service: Surgery Arrival: 04/18/2021 08:03:48 Discharge: Dispo Type: Address: [address] [place] [id number] Provider Notes: Diagnosis: Arthritis of shoulder region, [...] Follow up: With: Address: When: Kwame Yang [address] [place] [address] [facility] (1) 04/26/2021 2:45 PM Patient Education Information: Danyell Yang - Shoulder Replacement (Custom) [facility] Inpatient Patient Summaryon 04-19-2021 Inpatient Patient Summary [place] [id number] Patient Discharge Instructions PERSON INFORMATION Name: KOKO [...] None Follow up: With: Address: When: [place] [id number] Business (1) 04/26/2021 2:45 PM In the [...] New Medications [facility], [address] [place], [place] [id number], [phone] acetaminophen-oxycodone (Percocet 325 mg-5 mg Tab) 1-2 [...] times a day. (more content not included)... 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 Yang. . PCP verified and Insurance information reviewed and DME discussed. Contact information provided and white board updated. No family present at this time. Pt lives with and she will transport at NH. Inpatient status reviewed, Medicare rights reviewed and form signed, original provided to pt. Declines any concerns or anticipated DC needs. Plan to DC home today 04/19. CRM received a phone call from hospital joiners supervisor Viri. States pt Ct called and [...] waiting for approval. CRM contacted pt Ct [phone] and updated. Viri, hospital joiners supervisor updated. [facility] Comment on above: Result Comment: Elec tronically Signed By: Petty KOO, Afia\.renard\Date and Time Signed: 04/19/21 15:36 EDT IntraOperative Documentson 0 04-19-2021 IntraOperative Documents [id number]#1.00CD:127 Normal [facility] IntraOperative Documents [id number]#1.00CD:127 Normal [facility] Lyteson 04-19-2021 Anion gap [Moles/Vol] 11 mmol/L Normal 6-16 [facility] Comment on above: Performed By: #### 2 [id number] #### [facility] [address] [place] [address] Chloride [Moles/Vol] 103 mmol/L Normal 101-111 [facility] Comment on above: Performed By: #### 2 [id number] #### [facility] [address] [place] [address] CO2 [Moles/Vol] 30 mmol/L Normal 21-31 [facility] Comment on above: Performed By: #### 2 24531724 #### [facility] [address] [place] [address] Potassium [Moles/Vol] 4.0 mmol/L Normal 3.5-5.3 [facility] Comment on above: Performed By: #### 2 [id number] #### [facility] [address] [place] [address] Sodium [Moles/Vol] 140 mmol/L Normal 135-145 [facility] Comment on above: Performed By: #### 2 [id number] #### [facility] [address] [place] [address] Message from Medicareon 06-2 Message from Medicare [id number]#1.00CD:127 Normal [facility] Patient Education - Texton 0 04-19-2021 Patient Education - Text [place], [place] [facility] DISCHARGE INSTRUCTIONS: SHOULDER REPLACEMENT [...] vomiting. Kwame Yang DO [facility] [address] [place] [address] Reviewed: [facility] Physician Orderon 04-19-2021 Physician Order [id number]#1.00CD:127 [facility] Preoperative Documentson Preoperative Documents [id number]#1.00CD:127 [facility] Preoperative Documents [id number]#1.00CD:127 [facility] Progress Note-Physicianon Progress Note-Physician Patient: KOKO [...] Pressure 80 mmHg SpO2 92 % Normal [facility] Comment on above: Result Comment: Elec tronically Signed By: Kwame Yang DO\radha\Date and Time Signed: 04/19/21 12:55 EDT eGFRon 04-19-2021 GFR/1.73 sq M.predicted among blacks MDRD (S/P/Bld) [Vol rate/Area] mL/min/{1.73_m2} Normal >=59 [facility] Comment on above: Order Comment: Order added by Discern Expert. Result Comment: eGFR is race adjusted. AA=. Performed By: #### 2 [id number] #### [facility] [address] [place] [address] GFR/1.73 sq M.predicted among non-blacks MDRD (S/P/Bld) [Vol rate/Area] mL/min/{1.73_m2} Normal >=59 [facility] Comment on above: Order Comment: Order added by Discern Expert. Result Comment: Absorption Operator aracely kidney disease could be indicated at eGFR's of less than 60 mL/min/1.73m2. Kidney failure is indicated at less than 15 mL/min/1.73m2. Performed By: #### 2 [id number] #### [facility] [address] [place] [address] ABO/Rhon 04-18-2021 ABO/Rh Positive Invalid Interpretation Code [facility] Comment on above: Performed By: #### 2 101941, [id number], [id number], [id number] ####[facility] [address] [place] [address] ABO/Rh History Checkon 04-18 ABO/Rh History Check Verified Hx Blood Type Normal [facility] Comment on above: Performed By: #### 2 065178, [id number], [id number], [id number] ####[facility] [address] [place] [address] ABSC Tubeon 04-18-2021 ABSC Tube Interp Negative Normal [facility] Comment on above: Performed By: #### 2 532218, 60778376, [id number], [id number] ####[facility] [address] [place] [address] Blood Bank ID#on 04-18-2021 BBID# [id number] Invalid Interpretation Code [facility] Comment on above: Performed By: #### 2 559961, [id number], [id number], [id number] ####[facility] [address] [place] [address] Blood Bank Slipon 04-18-2021 Blood Bank Slip [id number]#1.00CD:127 Normal [facility] Capillary Glucose POCon 03-28 Glucose [Mass/Vol] 293 mg/dL High [address] [place] [address] Comment on above: Result Comment: Eva dav Meter Performed By: #### 2 [id number] #### [facility] [address] [place] [address] Glucose [Mass/Vol] 312 mg/dL [address] Comment on above: Result Comment: Joanna daly RN/ Performed By: #### 2 00014344 #### [facility] [address] [place] [address] Glucose [Mass/Vol] 241 mg/dL High [address] [place] [address] Comment on above: Result Comment: Eva dav Meter Performed By: #### 2 [id number] #### [facility] [address] [place] [address] Consent for Procedure/Surger yon 04-18-2021 Consent for Procedure/Surgery [id number]#1.00CD:127 Normal [facility] Consent for Treatmenton 03-28 Consent for Treatment [id number]#1.00CD:127 Normal [facility] H&P Updateon 04-18-2021 H&P Update [id number]#1.00CD:127 Normal [facility] Main OR PACU I Recordon 03-28 Main OR PACU I Record PACU Phase I Docum ent Type FT Summary Primary Physician: Kwame Yang DO Finalized Date/Time: 04/18/21 16:44:21 Pt. Name: KOKO MEIER Aura GlassB./Sex: 1960 Male Med Rec #: [id number] Physician: Kwame Yang DO Financial #: [id number] Pt. Type: O Room/Bed: [place] [address] Admit/Disch: 04/18/21 08:03:48 - Institution: Case Times [...] By: Keira [facility] RN 04/18/21 16:44 Normal [facility] Monitor Recordon 04-18-2021 Monitor Record [id number]#1.00CD:127 Normal [facility] Operative Reporton Operative Report Patient: SANTIAGO [...] 3. size 3 humeral insert 4. Revers Alzada size 9 stem with 39 (+2 right) [...] the gregg (more content not included)... Normal [facility] Comment on above: Result Comment: Elec tronically Signed By: Kwame Yang DO\.br\Date and Time Signed: 04/18/21 12:52 EDT Outpatient Surgery Discharge Instructionon 04-18-2021 Outpatient Surgery Discharge Instruction [address] [address] Patient Discharge Instructions PERSON INFORMATION [...] Follow up: With: Address: When: Kwame Yang [address] [place] [address] [place], [place] [phone] [facility] (1) 04/26/2021 2:45 PM Pharmacy Information: You may receive a survey from [employer] asking you to rate your care experience. Your feedback is important and will help us understand what we do well and how we can improve the quality of care we provide to you, your loved ones and our community. It?s an honor to serve you. Thank you for choosing [facility] HERE ARE THE MEDICATION CHANGES [...] times a day. PATIENT EDUCATION INFORMATION Instructions: [place], [place] [facility] DISCHARGE INSTRUCTIONS: SHOULDER REPLACEMENT [...] or the development of persistent vomiting. Kwame Yagn, DO [facility] [address] [place], [place] [address] Reviewed: Normal [facility] UA With Cult Reflexon 2020 Bilirubin Ql (U) Negative Normal Negative [facility] Comment on above: Performed By: #### 1 [id number] #### [facility] [address] [place] [address] Clarity (U) CLEAR Normal Clear [facility] Comment on above: Performed By: #### 1 7147772 #### [facility] [address] [place] [address] Color (U) YELLOW Normal Yellow [facility] Comment on above: Performed By: #### 1 [id number] #### [facility] [address] [place] [address] Epithelial cells.squamous LM.HPF (Urine sed) [#/Area] 0-2 Normal 0-2 [facility] Comment on above: Performed By: #### 1 9038746 #### [facility] [address] [place] [address] Glucose Test strip (U) [Mass/Vol] 2+ Abnormal Negative [facility] Comment on above: Performed By: #### 1 7269243 #### [facility] [address] [place] [address] Hemoglobin Ql (U) Negative Normal Negative [facility] Comment on above: Performed By: #### 1 7730681 #### [facility] [address] [place] [address] Ketones (U) [Mass/Vol] Negative Normal Negative [facility] Comment on above: Performed By: #### 1 6553552 #### [facility] [address] [place] [address] [place].plasma/[place] .RBC (Bld) [Mass ratio] 0-3 Normal 0-3 [facility] Comment on above: Performed By: #### 1 6255072 #### [facility] [address] [place] [address] Mucus Ql (Urine sed) TRACE Normal [facility] Comment on above: Performed By: #### 1 [id number] #### [facility] [address] [place] [address] Nitrite Ql (U) Negative Normal Negative [facility] Comment on above: Performed By: #### 1 6740298 #### [facility] [address] [place] [address] pH (U) 6.0 [pH] Invalid Interpretation Code 5.0-9.0 [facility] Comment on above: Performed By: #### 1 4883152 #### [facility] [address] [place] [address] Protein (U) [Mass/Vol] TRACE Abnormal Negative [facility] Comment on above: Performed By: #### 1 1056669 #### [facility] [address] [place] [address] Specific gravity (U) [Rel density] 1.020 Invalid Interpretation Code 1.005-1.03 0 [facility] Comment on above: Performed By: #### 1 8470401 #### [facility] [address] [place] [address] Type of Urine collection method Cohn Normal [facility] Comment on above: Performed By: #### 1 3837604 #### [facility] [address] [place] [address] Urobilinogen Qn (U) 0.2 {Rolando'U}/dL Normal 0.0-1.0 [facility] Comment on above: Performed By: #### 1 1401270 #### [facility] [address] [place] [address] WBC Auto Ql (U) Negative Normal Negative [facility] Comment on above: Performed By: #### 1 1798155 #### [facility] [address] [place] [address] WBC LM.HPF (Urine sed) [#/Area] 0-5 Normal 0-5 [facility] Comment on above: Performed By: #### 1 3717124 #### [facility] [address] [place] [address] XR Shoulder Complete Righton 04-18-2021 XR Shoulder [...] MD Transcribed by: BECKY Technologist: CHARLY, Joe [facility] Outside Recordson 04-17-2021 Outside Records [id number]#1.00CD:127 Normal [facility] Outside Recordson 04-09-2021 Outside Records [id number]#1.00CD:[address] [facility] [address] Upper Extremity w/o Contr ast [...] Jerome Warren MD Transcribed by: BECKY Technologist: [facility] Coding Summary.on 04-04-2021 Coding Summary. CD:[id number] Gh0bWw+ PGhlYWQ+GD2BZANrT52tiMSsaE8 QV6nKGU1SKQXWQCXDPJ5YJG4mnG H3AIoiZ3MvzsUe PwczvFRwMN77MMn7EYV1sTdqSNs pxV2utEJxY2v3QuUtBJ92hO99MR abINUzNiS1YmCtofcovREq H9xnVsGybWJgLot+PHRhYmxlIHd mBZSgSVwrWYLwXuItnEnsBJ1mAu 9yZGVyLWNvbGxhcHNlOiBj o2jmRGIyCByeDK3icJaqU5QioKO 7BKBan7m6Vq03jJD+NRNdBUD7wD pjCPmyd917MfQfk7mdWOE4 cEHhGQbcUMW6X96nm3P7ECOjRIZ eMNR6pPT3aW8ktFlfrmghQ8RqqP QyOqH9GXL5kVHfuL4hvJkl lmdgxI3pNpw+Y86OAP9XPJMWXK3 PNde5C7MdDbltvNX+HZ64BUCsZS 43xRWqqESxu1azwFz9ThFo LFEjQME5wPwyOYney8JsWJAgQ78 miKFlk5A2JKYhmKtqrKNwMfPxqM K9kF2wTKufxrcsv5haadjs Phyvo3cese17gA09X95hZMtwVCH zKCE2GMSoEYCbuRfxxk2eqY5pSa 8+ZZelo1dfx6vkmZm7GiVb DDMvvgHuaPwlFQJ0n2PcCq03R3U idIvoe4EpBfw5cx91jLHhx9A5qI T4JQnmMFRqvW4lARooTtQ5 QAEcYjUgmY49sOJiRTbgYi5cnZe zjJhqZC3yWTXbiierQQGfqU0hEZ YslGCzcNqvRE4oUWCrzspc a212YiHpVVS0NOLmrJTwY6LgfX7 lJjUiUPZkNHNkM3WdeRRfDFfcF8 28IBsdLiS1ZPXkxsRsS8Mu NSZzlWbwHpC7v7D9Ec0Mm3Mrxxi hFXM6SOsbXKL9NqP9VzKnVgK8S5 PaYqs2EEYhtTtaNV5bY2Pz SCEanpadfmwvmKM9YZDfIAXppX8 3mOTzODlnAt2se3Y5z384KQMvXN YpeL96Dv7lxHclDMRoePXP hV6zqdgft3pbjfnbAoLqLIQiZAr 2YYg9PTJbhGrcEwIeQJQ4RqM1UQ X6kSKlcD9wiPeofurgrA3o Oyc+O96hmO0gCEA4SGL3zrtbTMY njmBjTB29LN46M4RdIwmfiILwcS U+RLKkhvPnbTqsTQ7uStGk j4qtz1AfOVjyZ8EfBWTlUWbzThw 0WJJfMFI1yDN7aA1uJOLuQUhgg3 S9uQD9Z4YrphCant2tq1al KULaSMjuZ20cvMBma6E8VGVhtBA 4UILhuQtcTqIacJ52Azg+PGNvbG xex1TqOyuzb6gpm3croZn4 UxCzZIHuqaPcvTiiAFZ2a7WgEb6 4E12rYJwuLKRwMAYjVVKrIBCidM nuwe4myZ1lHz4+PGNvbCB3 pOZ3qN9rRKVtBaD5RUzmC926QqC rmLDfIbevl6pzi2vidBs9WiOsPP QksgWxkGlvCVH3w6ZjZw38 G06zPHwaQBClYDZbSWUpFWNahXz jkw2mcJ7mVz9+TI3ay0kcce42jV 48dHI+CDZeMKB4uFucGTir RHMkuC6hGZnsPnB9UPBlUlPnbK6 1hUYjIMxlKt2zpSmkuDlcWJ2bYJ Ysjrngd276FhSew7cxAMBu pGCeAOniXRL6H07gd3D8YPUeGNV gMVE6qTY7aN6wnNfbtlvgxBLsbW xaygBdoQkoTXitOFazK251 IHRvcDsnPlBhdGllbnQgTmFtZTo 1Y6WjTqh9DSItySlmXT5mzDXnZG ioQz2mhHtvdPehZN5bXIBt biqhy999HjJpk4btEOSchBFlABx mVTT6X21mb2P7XOIpARMcYSQ0uY D0lY0veHsihrmxwNGtfLhh enFqvEumTRbkJKegT975KJVifNu rIfEtuhCmWZZhxHX6PW29UZ13eD Gss7T7dZU1L8GyEUZnunlv vxntmTL4OIMqOZRehC67Mv4fpPb qCq9mQZCjOOI7UZKylXKhA0IucJ 6zQbEnQDBqADUuG5NkyXIh AOsmP718FLejQmS8WKWtilSvG6A oAVBkzZvsWkO2n6S8Mf9TF1B6BE 17DC69lNWhm1G5nED1E7Au VOQuzexoogvzoCH1LTSyQRNjfD9 4Xd7ztRffKk5uJFRsQSP3JFYwaU ZpJ6PyzP3dAhBbYNEpAPPw X5IzsDFnKPzfI685UXfgGvL2POD ztnZgP4CzQYFjeKfmMgM8d1Q4Of 6RJNy2MD14BG04vTIwi3Z7 cIJ9X0VgONEyjrrfsnvuaSP0QGV pRVKyzS87Sz4crZsfJg6iAJHjWV N7MXMrcXTsO9NwsO6eNgWb BQPfQLKuL9BctBZyFOzbM085BUn hGmA8LQBcwfYqE1ZkHECyhLrsYm L5d3T1Jj1KJUEcTI64ENL9 tWJ3SW52AR28S8HhYkoukRLadFN +PHRhYmxlIHdpZHRoPScxMDAlJy BtnFcjNR6cKm2zNIPfWPAx lPgcjBSlAaZoy0mpEVFbQFvaVO2 owByrY0SqlIA8LPLia7d3Eb42Y4 1sJ1IujNO+IBWdxPR7qWF8 jA6lYpUcUiD0ELhtK227XpRzmLF lPfmch6jng6tvkYm0JwP3ZBLbhl UwaKduUIU1k9XvWy68O88n IHdpZHRoPSIxNSUiIHZhbGlnbj0 atZ7qMd4+UIHpfFN7rGV8tK8hTs ZhMmH9MUxnI759ZoCnpGYt Ngwit2gkw0jvfEp1NwGkZCNxmgK ekWjoUTD4l7SoHd88U7RqnSevi3 IqHmf8lr65oDXpg0U2wOH6 M2NzQSMjdxsmxWNhrOiqCY6fQAF gtvixMHCuyR0qIEGhE6i0YyWqMd S6FPvnA4NthcX0HPGvcASz WTrgQQO8J97cg8J3NUGvMUEhDAC 6qHI1cM2wdJiapmssmTQrrButzk UbhLspAWwyJUhbB080ORUe uYrjKYIctP6zFVBffETssXibFU0 yYHFquylsMtKEDK3TRIPiZTgHXg ZSRVkgUzwvdGQ+PHRkIHN0 hEmtZZbjMVQpdE1cKQBiE7e4CvL qRtH2CUxjF6GbBLChhungUm26oT 2nEeQtMmP8HFxlZ9AivoW9 VXAcpSYqYPxtKYW9K47mp3Z8SSR nAUMfIBU1mQW3pD7nfBmybeylqA VmdDsgdmVydGljYWwtYWxp I523KNIqtOyvDyDjCdFlDnB4MRj 0E4MsUmy1DADcyOrfRL4vlRNfAP miVm5wrJucfIwyJS4bFSFr gqfsQLPviY4iBCCjgHPgiLunPD8 sTRZuogjwi541GpKnYUE7FGPlrJ UlA7SprN1bRrMhVCQpXPEm J9EbfBYlEMydD463FJwsMqQ8DDA ktqXzF7ZrNWLqgYguLeE9f4Q7Zi 42MiBZZWFyczwvdGQ+PHRk YSM3lMpuPNjzXEDqiV5kQPZjI7k 0UvZmGqF4SXdeY5LuNVUcybuiCx 72uM2cUeNfFrF2YZqaH4My twA5FAOalRWdAOvyAYA1X34xe5M 7FGGcQHBkVTI9eYE2vQ5klHmfdk ogbGVmdDsgdmVydGljYWwt FJyhF830AXKsxGsdNd6fwMK3A8B sIck6LGYmbIyzSH0kxRQzLHrjNe 3cvUfsrPybVA4iYPHcowgy QQJvtI8uIUShvPBwnPrrAM4dPTX rwxczb701WySbOEQ2KJJskWFkG0 DhsJ3fJzXnFULzNUEvQ4Eu qIRlLTqoC910ZClnJqU9TPHksyQ gO0YoJUGbxMpqZwS8j1S1Mu7QlY TfDIQkCE12UP70RF92K9Me PjwvdGFibGU+PHRhYmxlIHdpZHR kAQcsUTMhEbDwaRuqCW1hMg3wEE OmAXKxyZkefCCwVsLvh8cs KWIkNThvTK5pvTpwJ0IvoUJ9OTP kk2h2Aw83W94rS9ElbVR+PGNvbC K7oZC3kF6dJaNnIeF2DVwr D472TwSdjAPjXsuwa3eho2bdvJy 5KzEePXKiqeJsrRctIHA7y3DdLx 60A11uUTpkQUTpBCMtSLJp BCHmcHwjxg8ppG3vLm3+PGNvbCB 3yTH0eD3dVdZjSwA9KYlfH677Sw AefYWlHuyvA07xT9XqyVX+ ZTTaEbn7JTDijItyMF8tvRUgTPv bXe6aBNQ3GfWjDaUfTIlbC4RpKE QtqvckhzajsVG8IOXxBJEs uF56Gy7vjLjmKl8hDJQcIWP5BEL rrEWeV6CtaQ7aLoJkCECiTANzK0 SbjRReGElrO164SXwlSfF7 KEOgjvGhP7QcQTZnaXxqDkT8a7V 5Lp0XtGdtxVImZB5mMxQlKEt7A7 AeBat7LORipQicQR4eqTOg TTunYp6lvBqtzIcmGV6tEKVnkek oi920InDcf4ncRXJbqAGuLUxhGM Z0C54ab9X5UZLmMJLwUDS1 oWH7iV9yoBiqobudwBKraSpmkoR dsCxqFKuhPPuvA798AZDkzDajHz BCXuw2T4YxNph4WJKbmXhg FX6fjYRaOLqbDk1kkVbaeJkvMF5 qEDMzkqjzz676ScMht4shTGAefL MxGLdaWGL0V94og2I5PNPl BOEzVNC7kZJ6kV8wcYyvxeubsIW xjHcthsWbhSnbDUohRSgpT706XO MzvTneDx9SClf8A0WnVer2 XVUphYriNM1fyNXkJPloAp7xaTq udDahZN0zGQLgcdzwz796DjZca1 ifAHEnuLUiXKxoAMH2E17z e8Y5YRVpEHJiGLX7hFE1cP5uiGk nbjogbGVmdDsgdmVydGljYWwtYW zdT368VEWyoJybBdKgyWFu OjwvdGQ+GE66ss24H4KcXgulPss 3OZEgDAK9kUA6sM5hTTTqYTvhu9 H4cAW2Q9JmskFgdk5ov3vf YXBz (more content not included)... Normal [facility] Immunization Recordson 04-04 Immunization Records [id number]#1.00CD:127 Normal [facility] ABO/Rh Retypeon 04-03-2021 ABO/Rh Retype Interp Positive Invalid Interpretation Code [facility] Comment on above: Performed By: #### 1 [id number] ####[facility] [address] [place] [address] BUNon 04-03-2021 Urea nitrogen [Mass/Vol] 22 mg/dL High 5-21 [facility] Comment on above: Performed By: #### 1 [id number] #### [facility] [address] [place] [id number] CBC w/Indiceson 04-03-2021 Erythrocyte distribution width (RBC) [Ratio] 12.7 % Normal 10.9-14.2 [facility] Comment on above: Performed By: #### 1 [id number] #### [facility] [address] [place] [address] Hematocrit (Bld) [Volume fraction] 47.4 % Normal 37.7-49.0 [facility] Comment on above: Performed By: #### 1 [id number] #### [facility] [address] [place] [address] Hemoglobin (Bld) [Mass/Vol] 16.1 g/dL Normal 13.5-17.5 [facility] Comment on above: Performed By: #### 1 [id number] #### [facility] [address] [place] [address] MCH (RBC) [Entitic mass] 31.8 pg Normal 27.0-34.0 [facility] Comment on above: Performed By: #### 1 [id number] #### [facility] [address] [place] [address] MCHC (RBC) [Mass/Vol] 34.1 g/dL Normal 31.4-36.0 [facility] Comment on above: Performed By: #### 1 [id number] #### [facility] [address] [place] [address] MCV (RBC) [Entitic vol] 93.2 fL Normal 80.0-100.0 [facility] Comment on above: Performed By: #### 1 [id number] #### [facility] [address] [place] [address] Platelet mean volume (Bld) [Entitic vol] 9.3 fL Normal 6.4-10.8 [facility] Comment on above: Performed By: #### 1 [id number] #### [facility] [address] [place] [address] Platelets (Bld) [#/Vol] 168.0 E9/L Normal 150.0-500. 0 [facility] Comment on above: Performed By: #### 1 [id number] #### [facility] [address] [place] [address] RBC (Bld) [#/Vol] 5.1 E12/L Normal 4.3-5.9 [facility] Comment on above: Performed By: #### 1 [id number] #### [facility] [address] [place] [address] WBC corrected for nucl RBC Auto (Bld) [#/Vol] 8.0 E9/L Normal 4.0-11.0 [facility] Comment on above: Performed By: #### 1 [id number] #### [facility] [address] [place] [address] Consent for Treatmenton Consent for Treatment [id number]#1.00CD:127 Normal [facility] Creatinineon 04-03-2021 Creatinine [Mass/Vol] 0.7 mg/dL Normal 0.5-1.3 [facility] Comment on above: Performed By: #### 1 [id number] #### [facility] [address] [place] [address] Glucoseon 04-03-2021 Glucose [Mass/Vol] 249 mg/dL High 55-199 [facility] Comment on above: Performed By: #### 1 [id number] #### [facility] [address] [place] [address] CyhQ9iwt 04-03-2021 HbA1c (Bld) [Mass fraction] 7.9 % High <=5.9 [facility] Comment on above: Performed By: #### 7 [id number] #### [facility] [address] [place] [address] Lyteson 04-03-2021 Anion gap [Moles/Vol] 15 mmol/L Normal 6-16 [facility] Comment on above: Performed By: #### 1 [id number] #### [facility] [address] [place] [address] Chloride [Moles/Vol] 94 mmol/L Low 101-111 [facility] Comment on above: Performed By: #### 1 [id number] #### [facility] [address] [place] [address] CO2 [Moles/Vol] 27 mmol/L Normal 21-31 [facility] Comment on above: Performed By: #### 1 [id number] #### [facility] [address] [place] [address] Potassium [Moles/Vol] 4.2 mmol/L Normal 3.5-5.3 [facility] Comment on above: Performed By: #### 1 [id number] #### [facility] [address] [place] [address] Sodium [Moles/Vol] 132 mmol/L Low 135-145 [facility] Comment on above: Performed By: #### 1 [id number] #### [facility] [address] [place] [address] XR Chest 2 Viewson XR Chest 2 [...] Transcribed by: BECKY Technologist: JOSE ELIAS Normal [facility] eGFRon 04-03-2021 GFR/1.73 sq M.predicted among blacks MDRD (S/P/Bld) [Vol rate/Area] mL/min/{1.73_m2} Normal >=59 [facility] Comment on above: Order Comment: Order added by Discern Expert. Result Comment: eGFR is race adjusted. AA=. Performed By: #### 1 [id number] #### [facility] [address] [place] [address] GFR/1.73 sq M.predicted among non-blacks MDRD (S/P/Bld) [Vol rate/Area] mL/min/{1.73_m2} Normal >=59 [facility] Comment on above: Order Comment: Order added by Discern Expert. Result Comment: Absorption Operator aracely kidney disease could be indicated at eGFR's of less than 60 mL/min/1.73m2. Kidney failure is indicated at less than 15 mL/min/1.73m2. Performed By: #### 1 [id number] #### [facility] [address] [place] [address] Physician Orderon 03-01-2021 Physician Order [id number]#1.00CD:127 Normal [facility] Pre-Certification Formon Pre-Certification Form [id number]#1.00CD:127 Normal [facility] Physician Orderon 02-28-2021 Physician Order [id number]#1.00CD:127 Normal [facility] Coding Summary.on 12-21-2020 Coding Summary. CODING DATE: 021 FINAL [facility] STATUS: Home ([facility]) PAYOR: Medicare APC DESCRIPTION 5572 Level [...] CphT Date Saved: 12/21/2020 01:14 pm Normal [facility] CT Upper Extremity w/ Contra st Recinos 12-20-2020 CT Upper Extremity w/ Contrast Right [...] Report Acromioclavicular Joint: Severe degenerative changes with [id number]-jt-[id number] contact, extensive subchondral cystic changes involving the [...] None Contrast amount in ml's: 0 Normal [facility] Consent for Treatmenton 11-28 Consent for Treatment [id number]#1.00CD:127 Normal [facility] Creatinineon 12-20-2020 Creatinine [Mass/Vol] 0.7 mg/dL Normal 0.5-1.3 [facility] Comment on above: Performed By: #### 2 [id number] #### [facility] [address] [place] [address] Physician Orderon 12-20-2020 Physician Order [id number]#1.00CD:127 Normal [facility] RAD - Consent to Procedureon 12-20-2020 RAD - Consent to Procedure [id number]#1.00CD:127 Normal [facility] XR Inj Shoulder Arthrogram R ighton [...] shoulder joint. Patient tolerated the procedure well. Classified Ad Clerk image shows minimal calcification adjacent to the [...] Dose: Ka,r in mGy = 21 Normal [facility] eGFRon 12-20-2020 GFR/1.73 sq M.predicted among blacks MDRD (S/P/Bld) [Vol rate/Area] mL/min/{1.73_m2} Normal >=59 [facility] Comment on above: Order Comment: Order added by Discern Expert. Result Comment: eGFR is race adjusted. AA=. Performed By: #### 2 [id number], [id number] #### [facility] [address] [place] [address] GFR/1.73 sq M.predicted among non-blacks MDRD (S/P/Bld) [Vol rate/Area] mL/min/{1.73_m2} Normal >=59 [facility] Comment on above: Order Comment: Order added by Discern Expert. Result Comment: Absorption Operator aracely kidney disease could be indicated at eGFR's of less than 60 mL/min/1.73m2. Kidney failure is indicated at less than 15 mL/min/1.73m2. Performed By: #### 2 [id number], [id number] #### [facility] [address] [place] [address] Physician Orderon 12-08-2020 Physician Order [id number]#1.00CD:127 Normal [facility] Pre-Certification Formon Pre-Certification Form [id number]#1.00CD:127 Normal [facility] Consent for Treatmenton Consent for Treatment [id number]#1.00CD:127 Normal [facility] RAD - MISCon 12-05-2020 RAD - MISC [id number]#1.00CD:127 Normal [facility] RAD - MRI Screening Formon 0 12-05-2020 RAD - MRI Screening Form [id number]#1.00CD:127 Normal [facility] Physician Orderon 11-29-2020 Physician Order [id number]#1.00CD:127 [facility] Pre-Certification Formon Pre-Certification Form [id number]#1.00CD:127 [facility] Vital Signs Date Time Vital Sign Value Performing Clinician Facility 04-01-2024 09:01-0400 Body height 170.2 cm Maryann Rubalcava MD Work Phone: [facility] 04-01-2024 09:01-0400 Body mass index (BMI) [Ratio] 35.24 kg/m2 Maryann Rubalcava MD Work Phone: [facility] 04-01-2024 09:01-0400 Body weight 102.06 kg Maryann Rubalcava MD Work Phone: [facility] 04-01-2024 09:01-0400 Diastolic blood pressure 65 mm[Hg] Maryann Rubalcava MD Work Phone: [facility] 04-01-2024 09:01-0400 Heart rate 89 /min Maryann Rubalcava MD Work Phone: [facility] 04-01-2024 09:01-0400 Respiratory rate 20 /min Maryann Rubalcava MD Work Phone: [facility] 04-01-2024 09:01-0400 Systolic blood pressure 129 mm[Hg] Maryann Rubalcava MD Work Phone: [facility] 03-11-2024 11:16-0400 Body height 170.18 cm DO Josh Bunting Work Phone: [facility] 03-11-2024 11:16-0400 Body mass index (BMI) [Ratio] 37.6 kg/m2 DO Josh Bunting Work Phone: [facility] 03-11-2024 11:16-0400 Body weight 109 kg DO Josh Bunting Work Phone: [phone] [place] [address] 01-19-2024 18:15-0400 Heart rate 90 /min DO Josh Bunting Work Phone: [facility] 01-19-2024 18:15-0400 Inhaled oxygen flow rate 1 L/min DO Ojsh Bunting Work Phone: [facility] 01-19-2024 18:15-0400 Respiratory rate 16 /min DO Josh Bunting Work Phone: [facility] 01-19-2024 18:15-0400 SaO2% (BldA) [Mass fraction] 92 % DO Josh Bunting Work Phone: [facility] 01-19-2024 18:00-0400 Diastolic blood pressure 65 mm[Hg] DO Josh Bunting Work Phone: [facility] 01-19-2024 18:00-0400 Systolic blood pressure 134 mm[Hg] DO Josh Bunting Work Phone: [facility] 01-19-2024 17:26-0400 Body temperature 97.5 [degF] DO Josh Bunting Work Phone: [facility] 01-19-2024 13:53-0400 Body height 167.64 cm DO Josh Bunting Work Phone: [facility] 01-19-2024 13:53-0400 Body mass index (BMI) [Ratio] 38.7 kg/m2 DO Josh Bunting Work Phone: [facility] 01-19-2024 13:53-0400 Body weight 108.86 kg DO Josh Bunting Work Phone: [facility] 11-11-2023 10:37-0500 Body height 170.2 cm Maryann Rubalcava MD Work Phone: [facility] 11-11-2023 10:37-0500 Body mass index (BMI) [Ratio] 36.02 kg/m2 Maryann Rubalcava MD Work Phone: [facility] 11-11-2023 10:37-0500 Body temperature 98.6 [degF] Maryann Rubalcava MD Work Phone: [facility] 11-11-2023 10:37-0500 Body weight 104.33 kg Maryann Rubalcava MD Work Phone: [facility] 11-11-2023 10:37-0500 Diastolic blood pressure 62 mm[Hg] Maryann Rubalcava MD Work Phone: [facility] 11-11-2023 10:37-0500 Heart rate 98 /min Maryann Rubalcava MD Work Phone: [facility] 11-11-2023 10:37-0500 Systolic blood pressure 136 mm[Hg] Maryann Rubalcava MD Work Phone: [facility] 11-03-2023 16:35-0500 Diastolic blood pressure 59 mm[Hg] DO Josh Bunting Work Phone: [facility] 11-03-2023 16:35-0500 Heart rate 91 /min DO Josh Bunting Work Phone: [facility] 11-03-2023 16:35-0500 Respiratory rate 16 /min DO Josh Bunting Work Phone: [facility] 11-03-2023 16:35-0500 SaO2% (BldA) [Mass fraction] 92 % DO Josh Bunting Work Phone: [facility] 11-03-2023 16:35-0500 Systolic blood pressure 117 mm[Hg] DO Josh Bunting Work Phone: [facility] 11-03-2023 15:41-0500 Body temperature 97.4 [degF] DO Josh Bunting Work Phone: [facility] 11-03-2023 15:11-0500 Inhaled oxygen flow rate 3 L/min DO Josh Bunting Work Phone: [facility] 11-03-2023 11:46-0500 Body height 170.18 cm DO Josh Bunting Work Phone: [facility] 11-03-2023 11:46-0500 Body mass index (BMI) [Ratio] 37.6 kg/m2 DO Josh Bunting Work Phone: [facility] 11-03-2023 11:46-0500 Body weight 109 kg DO Josh Bunting Work Phone: [facility] 10-14-2023 09:40-0500 Body height 170.18 cm Karime Nguyen Other [facility] 10-14-2023 09:40-0500 Body mass index (BMI) [Ratio] 37.9 kg/m2 Karime Nguyen Other [employer] Other 10-14-2023 09:40-0500 Body weight 109.77 kg Karime Nguyen Other [employer] Other 10-14-2023 09:40-0500 Body weight 109.76 kg DO Josh Bunting Work Phone: [facility] 10-02-2023 09:10-0500 Body height 170.18 cm DO Josh Bunting Work Phone: [facility] 10-02-2023 09:10-0500 Body mass index (BMI) [Ratio] 37.3 kg/m2 DO Josh Bunting Work Phone: [facility] 10-02-2023 09:10-0500 Body weight 108 kg DO Josh Bunting Work Phone: [facility] 10-02-2023 08:53-0500 Body temperature 98.5 [degF] DO Josh Bunting Work Phone: [facility] 10-02-2023 08:53-0500 Diastolic blood pressure 82 mm[Hg] DO Josh Bunting Work Phone: [facility] 10-02-2023 08:53-0500 Heart rate 92 /min DO Josh Bunting Work Phone: [facility] 10-02-2023 08:53-0500 Respiratory rate 18 /min DO Josh Bunting Work Phone: [facility] 10-02-2023 08:53-0500 SaO2% (BldA) [Mass fraction] 95 % DO Josh Bunting Work Phone: [facility] 10-02-2023 08:53-0500 Systolic blood pressure 169 mm[Hg] DO Josh Bunting Work Phone: [facility] 09-16-2023 09:20-0500 Body height 170.18 cm Karime Nguyen Other [employer] Other 09-16-2023 09:20-0500 Body mass index (BMI) [Ratio] 37.59 kg/m2 Karime Nguyen Other [employer] Other 09-16-2023 09:20-0500 Body weight 108.86 kg Karime Nguyen Other [employer] Other 07-29-2023 16:43-0400 Body height 167.64 cm DO Josh Bunting Work Phone: [facility] 07-29-2023 16:43-0400 Body temperature 98 [degF] DO Josh Bunting Work Phone: [facility] 07-29-2023 16:43-0400 Body weight 104.32 kg DO Josh Bunting Work Phone: [facility] 07-29-2023 16:43-0400 Diastolic blood pressure 74 mm[Hg] DO Josh Bunting Work Phone: [facility] 07-29-2023 16:43-0400 Heart rate 99 /min DO Josh Bunting Work Phone: [facility] 07-29-2023 16:43-0400 Respiratory rate 24 /min DO Josh Bunting Work Phone: [facility] 07-29-2023 16:43-0400 SaO2% (BldA) [Mass fraction] 94 % DO Josh Bunting Work Phone: [facility] 07-29-2023 16:43-0400 Systolic blood pressure 141 mm[Hg] DO Josh Bunting Work Phone: [facility] 03-26-2023 11:26-0400 Heart rate 88 /min Donny Peralta APRN.MANAGER DEMAND Work Phone: [facility] 03-26-2023 11:26-0400 Respiratory rate 17 /min Donny Peralta APRN.MANAGER DEMAND Work Phone: [facility] 03-26-2023 11:26-0400 SaO2% (BldA) [Mass fraction] 98 % Donny Peralta APRN.MANAGER DEMAND Work Phone: [facility] 04-16-2022 09:30-0400 Body height 170.18 cm Mariel Mcgraw Other [employer] Other 04-16-2022 09:30-0400 Body temperature 97.6 [degF] Ulyssesal Chaban Other [employer] Other 04-16-2022 09:30-0400 Diastolic blood pressure 78 mm[Hg] Ulyssesal Chaban Other [employer] Other 04-16-2022 09:30-0400 Respiratory rate 20 /min Ulyssesal Chaban Other [employer] Other 04-16-2022 09:30-0400 SaO2% (BldA) [Mass fraction] Ulyssesal Chaban Other [employer] Other 04-16-2022 09:30-0400 Systolic blood pressure 154 mm[Hg] Ulyssesal Chaban Other [employer] Other 01-08-2022 14:30-0400 Body height 170.18 cm Mariel Chaban Other [employer] Other 01-08-2022 14:30-0400 Body mass index (BMI) [Ratio] 37.27 kg/m2 Mariel Mccarthyban Other [employer] Other 01-08-2022 14:30-0400 Body temperature 97.4 [degF] Ulyssesal Chaban Other [employer] Other 01-08-2022 14:30-0400 Body weight 107.96 kg Ulyssesal Chaban Other [employer] Other 01-08-2022 14:30-0400 Diastolic blood pressure 72 mm[Hg] Ulyssesal Chaban Other [employer] Other 01-08-2022 14:30-0400 Respiratory rate 20 /min Mariel Mccarthyban Other [employer] Other 01-08-2022 14:30-0400 SaO2% (BldA) [Mass fraction] 95 % Mariel Mccarthyban Other [employer] Other 01-08-2022 14:30-0400 Systolic blood pressure 130 mm[Hg] Mariel Mccarthyban Other [employer] Other 09-06-2021 10:00-0500 Body height 170.18 cm Mariel Mccarthyban Other [employer] Other 09-06-2021 10:00-0500 Body mass index (BMI) [Ratio] 37.59 kg/m2 Mariel Mccarthyban Other [employer] Other 09-06-2021 10:00-0500 Body temperature 96.8 [degF] Mariel Mccarthyban Other [employer] Other 09-06-2021 10:00-0500 Body weight 108.86 kg Mariel Mccarthyban Other [employer] Other 09-06-2021 10:00-0500 Diastolic blood pressure 68 mm[Hg] Mariel Chaban Other [employer] Other 09-06-2021 10:00-0500 Respiratory rate 20 /min Mariel Mccarthyban Other [employer] Other 09-06-2021 10:00-0500 SaO2% (BldA) [Mass fraction] 95 % Mariel Mccarthyban Other [employer] Other 09-06-2021 10:00-0500 Systolic blood pressure 136 mm[Hg] Mariel Mcgraw Other [employer] Other 07-23-2021 10:30-0400 Body height 170.18 cm Mariel Mcgraw Other [employer] Other 07-23-2021 10:30-0400 Body mass index (BMI) [Ratio] 38.21 kg/m2 Mariel Mcgraw Other [employer] Other 07-23-2021 10:30-0400 Body temperature 96.1 [degF] Mariel Mcgraw Other [employer] Other 07-23-2021 10:30-0400 Body weight 110.68 kg Mariel Mcgraw Other [employer] Other 07-23-2021 10:30-0400 Diastolic blood pressure 78 mm[Hg] Mariel Mcgraw Other [employer] Other 07-23-2021 10:30-0400 Respiratory rate 20 /min Mariel Mcgraw Other [employer] Other 07-23-2021 10:30-0400 SaO2% (BldA) [Mass fraction] 95 % Mariel Mcgraw Other [employer] Other 07-23-2021 10:30-0400 Systolic blood pressure 150 mm[Hg] Mariel Mccarthytommie Other [employer] Other Encounters Encounter Date Encounter Type Care Provider Facility Start: 04-21-2024 End: 04-21-2024 ambulatory BRYCE H TIMMIS Not Available Start: 04-12-2024 End: 04-12-2024 ambulatory Savanna Mcclain MD Facility:[facility] Start: 04-09-2024 End: 04-09-2024 ambulatory FEROZ PATEL Not Available Start: 04-02-2024 Evaluation and management of inpatient [facility] Start: 04-01-2024 End: 04-01-2024 Subsequent hospital visit by physician [facility] Comment on above: Cervical myelopathy (Multi) Start: 04-01-2024 End: 04-01-2024 ambulatory [facility] Start: 04-01-2024 End: 04-01-2024 Office outpatient visit 40 minutes Maryann Rubalcava MD Work Phone: [facility] Comment on above: 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 (Primary Dx); Cervical myelopathy (Multi) Start: 04-01-2024 End: 04-01-2024 ambulatory [facility] Start: 03-31-2024 End: 03-31-2024 Patient encounter procedure DO Josh Bunting Work Phone: [facility] Work Phone: Start: 03-31-2024 End: 03-31-2024 ambulatory DO Josh Bunting Work Phone: [facility] Work Phone: Start: 03-15-2024 End: 03-15-2024 ambulatory Savanna Mcclain MD Facility:[facility] Start: 03-11-2024 End: 03-11-2024 Patient encounter procedure DO Josh Bunting Work Phone: [facility] Work Phone: Start: 02-25-2024 End: 02-25-2024 ambulatory YOGESH BECKER V Not Available Start: 02-16-2024 End: 02-16-2024 ambulatory Savanna Mcclain MD Facility:[facility] Start: 01-26-2024 End: 01-26-2024 ambulatory YOGESH BECKER V Not Available Start: 01-19-2024 End: 01-19-2024 Admission to same day surgery center DO Josh Bunting Work Phone: [facility] Start: 01-19-2024 End: 01-19-2024 ambulatory DO Josh Bunting Work Phone: [facility] Work Phone: Start: 01-12-2024 End: 01-12-2024 Patient encounter procedure DO Josh Bunting Work Phone: [facility] Work Phone: Start: 01-12-2024 End: 01-12-2024 ambulatory DO Josh Bunting Work Phone: [facility] Work Phone: Start: 01-12-2024 Encounter for preprocedural laboratory examination Yogesh Ray [facility] Start: 01-08-2024 End: 01-08-2024 ambulatory FEROZ PATEL Not Available Start: 01-06-2024 End: 01-06-2024 ambulatory YOGESH BECKER V Not Available Start: 12-16-2023 End: 12-16-2023 Patient encounter procedure DO Josh Bunting Work Phone: [facility]-MRI [address] Work Phone: Start: 12-16-2023 End: 12-16-2023 ambulatory DO Josh Bunting Work Phone: [facility] Work Phone: Start: 12-08-2023 End: 12-08-2023 ambulatory Savanna Mcclain MD Facility:[facility] Start: 11-25-2023 End: 11-25-2023 Patient encounter procedure DO Josh Bunting Work Phone: [facility] [address] Work Phone: Start: 11-25-2023 End: 11-25-2023 ambulatory DO Josh Bunting Work Phone: [facility] Work Phone: Start: 11-24-2023 End: 11-24-2023 Patient encounter procedure DO Josh Bunting Work Phone: [facility] [address] Work Phone: Start: 11-24-2023 End: 11-24-2023 ambulatory DO Josh Bunting Work Phone: [facility] Work Phone: Start: 11-17-2023 End: 11-17-2023 ambulatory Savanna Mcclain MD Facility:[facility] Start: 11-11-2023 End: 11-11-2023 ambulatory [facility] Start: 11-11-2023 End: 11-11-2023 Office consultation new/estab patient 80 min Maryann Rubalcava MD Work Phone: [facility] Comment on above: Cervical myelopathy (CMS/HCC) (Primary Dx); Sagittal plane imbalance; 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; Lumbar stenosis with neurogenic claudication Start: 11-10-2023 End: 11-10-2023 ambulatory YOGESH BECKER V Not Available Start: 11-03-2023 End: 11-03-2023 Admission to same day surgery center DO Josh Bunting Work Phone: [facility] [place] Start: 11-03-2023 End: 11-03-2023 ambulatory DO Josh Bunting Work Phone: [facility] Work Phone: Start: 10-23-2023 End: 10-23-2023 Patient encounter procedure DO Josh Bunting Work Phone: [facility]-Pre-Surgical Testing Work Phone: Start: 10-23-2023 End: 10-23-2023 ambulatory DO Josh Bunting Work Phone: [facility] Work Phone: Start: 10-14-2023 Office outpatient vi sit 40 minutes Karime Nguyen [facility] [place] [facility] Start: 10-14-2023 End: 10-14-2023 ambulatory YOGESH BECKER V [facility] [employer] Other Start: 10-14-2023 End: 10-14-2023 Patient encounter procedure DO Josh Bunting Work Phone: [facility] Neurosurgery Work Phone: Start: 10-09-2023 End: 10-09-2023 ambulatory FEROZ PATEL Not Available Start: 10-02-2023 End: 10-02-2023 Admission to same day surgery center DO Josh Bunting Work Phone: [facility] [place] Start: 10-02-2023 End: 10-02-2023 ambulatory DO Josh Bunting Work Phone: [facility] Work Phone: Start: 09-30-2023 End: 09-30-2023 ambulatory Savanna Mcclain MD Facility:[facility] Start: 09-29-2023 End: 09-29-2023 ambulatory Savanna Mcclain MD Facility: [facility] Start: 09-26-2023 End: 09-26-2023 ambulatory IMTIAZ ZAIDI Not Available Start: 09-23-2023 End: 09-23-2023 Patient encounter procedure DO Josh Bunting Work Phone: [facility]urgical [facility] Work Phone: Start: 09-23-2023 End: 09-23-2023 ambulatory DO Josh Bunting Work Phone: [facility] Work Phone: Start: 09-22-2023 End: 09-22-2023 ambulatory Savanna Mcclain MD Facility: [facility] Start: 09-16-2023 End: 09-16-2023 ambulatory KarimeTeranode Other [facility] [employer] Other Start: 09-16-2023 Office outpatient ne w 45 minutes Karime Nguyen [facility] Neurosurgery Start: 09-16-2023 End: 09-16-2023 Patient encounter procedure DO Josh Bunting Work Phone: [facility] Neurosurgery Work Phone: Start: 08-11-2023 End: 08-11-2023 Patient encounter procedure DO Josh Bunting Work Phone: [facility] [place] Work Phone: Start: 08-11-2023 End: 08-11-2023 ambulatory DO Josh Bunting Work Phone: [facility] Work Phone: Start: 08-01-2023 End: 08-01-2023 Patient encounter procedure DO Josh Bunting Work Phone: [facility] [place] Work Phone: Start: 08-01-2023 End: 08-01-2023 ambulatory Josh Bunting Facility:[facility] Start: 07-29-2023 End: 07-29-2023 Emergency department patient visit DO Josh Bunting Work Phone: [facility] Work Phone: Start: 06-12-2023 End: 06-12-2023 ambulatory Mariel Mcgraw Other [facility] [employer] Other Start: 06-12-2023 Telephone encounter Mariel Mcgraw [facility] Start: 04-21-2023 End: 04-21-2023 Patient encounter procedure DO Josh Bunting Work Phone: [facility] [place] Work Phone: Start: 04-21-2023 End: 04-21-2023 ambulatory DO Josh Bunting Work Phone: [facility] Work Phone: Start: 03-26-2023 End: 03-26-2023 ambulatory DONNY PERALTA Facility:[facility] Start: 03-26-2023 End: 03-26-2023 Patient encounter procedure Donny Peralta CELL TUBER MACHINE.MANAGER DEMAND Work Phone: Otolaryngology Comment on above: Laryngeal candidiasi s (Primary Dx); Glossitis; Oral candidiasis; Hoarseness of voice; History of alcohol abuse Start: 02-10-2023 End: 02-10-2023 ambulatory DO Josh Bunting Work Phone: [facility] Work Phone: Start: 02-10-2023 End: 02-10-2023 Patient encounter procedure DO Josh Bunting Work Phone: [facility] [place] Work Phone: Start: 12-31-2022 End: 12-31-2022 ambulatory DO Josh Bunting Work Phone: [facility] Work Phone: Start: 12-31-2022 End: 12-31-2022 Patient encounter procedure DO Josh Bunting Work Phone: [facility] [address] Work Phone: Start: 11-06-2022 End: 11-06-2022 ambulatory DO Josh Bunting Work Phone: [facility] Work Phone: Start: 11-06-2022 End: 11-06-2022 Patient encounter procedure DO Josh Bunting Work Phone: [facility] Work Phone: Start: 09-30-2022 End: 09-30-2022 ambulatory DO Josh Bunting Work Phone: [facility] Work Phone: Start: 09-30-2022 End: 09-30-2022 Patient encounter procedure DO Josh Bunting Work Phone: [facility] Start: 06-19-2022 End: 06-19-2022 Patient encounter procedure DO Josh Bunting Work Phone: [facility] Start: 06-05-2022 End: 06-05-2022 ambulatory Alexis Abdi Other [employer] Other Start: 06-05-2022 Telephone encounter Alexis Abdi [facility] [employer] Start: 04-16-2022 End: 04-16-2022 ambulatory Kamal Chaban Other [employer] Other Start: 04-16-2022 Office outpatient vi sit 25 minutes Kamal Chaban [facility] Start: 01-08-2022 End: 01-08-2022 ambulatory Kamal Chaban Other [employer] Other Start: 01-08-2022 Office outpatient vi sit 25 minutes Kamal Chaban [facility] Start: 12-07-2021 End: 12-07-2021 ambulatory Kamal Chaban Other [employer] Other Start: 12-07-2021 Telephone encounter Kamal Chaban [facility] Start: 11-09-2021 ([facility] C Vac) [facility] Co vid Vaccine Courtney Espino [facility] Start: 11-09-2021 End: 11-09-2021 ambulatory Courtney Ramant Other [employer] Other Start: 09-06-2021 End: 09-06-2021 ambulatory Mariel Mcgraw Other [employer] Other Start: 09-06-2021 Office outpatient vi sit 25 minutes Mariel Mcgraw [facility] Start: 07-26-2021 Telephone encounter Mariel Mcgraw [facility] Start: 07-23-2021 Office outpatient ne w 45 minutes Mariel Mcgraw [facility] Procedures Date Procedure Procedure Detail Performing Clinician Start: 03-31-2024 Scoliosis survey X-ray DO Josh Bunting Work Phone: Start: 01-19-2024 Ventral hernioplasty DO Josh Bunting [...] Screening for malign ant neoplasm of colon [facility] Start: 11-11-2029 DTaP/Tdap/Td Vaccine s (2 - Td or Tdap) DTaP/Tdap/Td Vaccines (2 - Td or Tdap) [facility] Start: 06-27-2024 Influenza vaccination Influenz a Vaccine (Season Ended) [facility] Start: 04-01-2024 End: 10-01-2024 Enroll patient in spine cervical NO fusion care plan Enroll patient in spine cervical NO fusion care plan Procedures Routine Expected: 04/01/2024, Expires: 10/01/2024 [facility] Work Phone: Comment on above: Expected: 04/01/2024 , Expires: 10/01/2024 Start: 04-01-2024 End: 04-01-2025 XR Cervical spine 4 or 5 Views [facility] Service Area Work Phone: Comment on above: Expected: 04/01/2024 (Approximate), Expires: 04/01/2025 Once for 1 Occurrenc es starting 04/01/2024 until 04/01/2024 Start: 01-19-2024 End: 01-19-2024 [facility] Start: 11-24-2023 [facility] Start: 11-11-2023 End: 11-11-2024 MR Cervical spine WO contrast MR cervical spine wo IV contrast Imaging Routine Cervical myelopathy (CMS/HCC) Expected: 11/11/2023, Expires: 11/11/2024 [facility] Work Phone: Comment on above: Expected: 11/11/2023 , Expires: 11/11/2024 Start: 11-11-2023 End: 11-11-2024 X-ray scoliosis 2 View (NON EOS) [facility] Work Phone: Comment on above: Expected: 11/11/2023 , Expires: 11/11/2024 Start: 11-03-2023 [facility] Start: 11-03-2023 [facility] Start: 10-02-2023 Repair of left ingui nal hernia using surgical mesh OR Inguinal Hernia Repair W/Mesh Graft (Left) [facility] Start: 10-02-2023 End: 10-02-2023 [facility] Start: 06-27-2023 COVID-19 Vaccine () COVID-19 Vaccine () [facility] Start: 06-27-2023 Influenza vaccination C [facility] Start: 03-26-2023 End: 05-26-2023 Comprehensive metabolic 2000 panel - Serum or Plasma [facility] Work Phone: Comment on above: Expected: 03/26/2023 , Expires: 05/26/2023 Start: 10-27-2022 DEPRESSION ASSESSMENT DEPRESSION ASS ESSMENT [facility] Start: 01-04-2022 COVID-19 VACCINE (3 - Booster for Dereck series) COVID-19 VACCINE (3 - Booster for Dereck series) [facility] Start: 08-09-2020 Pneumococcal Vaccine : 65+ Years (2 - PCV) Pneumococcal Vaccine: 65+ Years (2 - PCV) [facility] Start: 08-09-2020 Pneumococcal Vaccine : 65+ Years (2 of 2 - PCV) Pneumococcal Vaccine: 65+ Years (2 of 2 - PCV) [facility] Start: 08-09-2020 Pneumococcal Vaccine : Pediatrics (0 to 5 Years) and At-Risk Patients (6 to 64 Years) (2 - PCV) Pneumococcal Vaccine: Pediatrics (0 to 5 Years) and At-Risk Patients (6 to 64 Years) (2 - PCV) [facility] Start: 2018 RSV patient s and/or patients aged 60+ years (1 - 1-dose 60+ series) RSV patients and/or patients aged 60+ years (1 - 1-dose 60+ series) [facility] Start: 2013 PROSTATE CANCER SCREENING DISCUSSION PROSTATE CANCER SCREENING DISCUSSION [facility] Start: 2008 SHINGRIX VACCINE (1 of 2) SHINGRIX VACCINE (1 of 2) [facility] Start: 2008 Zoster Vaccines (1 of 2) Zoste r Vaccines (1 of 2) [facility] Start: 2003 COLOGUARD (FIT-DNA) COLOGUARD (FIT-D NA) [facility] Start: 2003 Colonoscopy COLONOSCOPY [facility] Start: 2003 COLORECTAL CANCER SCREENING COLORECTAL CANCER SCREENING [facility] Start: [address] COLONOGRAPHY [facility] Start: 2003 DIABETES SCREEN DIABETES SCREEN [facility] Start: 2003 FECAL OCCULT BLOOD FECAL OCCULT BLOO D [facility] Start: 2003 SIGMOIDOSCOPY SIGMOIDOSCOPY [facility] Start: 1993 LIPID SCREEN LIPID SCREEN [facility] Start: 1977 Urine microalbumin profile DTAP,TDAP,TD (1 - Tdap) [facility] Start: 1977 Urine screening for protein Diabetes: Urine Protein Screening [facility] Start: 1976 HEPATITIS C SCREENING HEPATITIS C [facility] Start: 1976 Hepatitis C screening Hepatitis C [facility] Start: 1976 HIV SCREENING HIV SCREENING [facility] Start: 1968 Diabetic foot examination Diabetes: Foot Exam [facility] Start: 1968 Glaucoma screening Diabetes: R etinopathy Screening [facility] Start: 1959 MMR Vaccines (1 of 1 - Standard series) MMR Vaccines (1 of 1 - Standard series) [facility] Start: 1958 Annual wellness visit Medicare Initial Physical (IPPE) [facility] Start: 1958 Hemoglobin A1c measurement Diabetes: Hemoglobin A1C [facility] Start: 1958 HIV screening HIV Screening [facility] Start: 1958 Lipid panel Lipid Panel [facility] Start: 1958 Screening for malign ant neoplasm of colon [facility] Lopez w/o facetec foramot/dskc / vrt seg crv Laminectomy Cervical Cervical myelopathy (Multi) Cervical spinal 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 segment disease 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 procedure [facility] Qulin OR Methylmalonate [Moles/volume] in Serum or Plasma [facility] Patient Education [facility] Work Phone: Patient referral [facility] Work Phone: [facility] Immunizations Immunization Date Immunization Notes Care Provider Shannan dawsonconstantino 11-09-2021 COVID-19 (Moderna), Age 12+ DO Josh Melvin Work Phone: [facility] 11-09-2021 COVID-19 Sharad Courtney Ramanjacqueline Other [facility] 10-16-2021 influenza, injectabl e, quadrivalent, contains preservative Maryann Rubalcava MD Work Phone: [facility] Work Phone: 10-16-2021 influenza virus vaccine, unspecified formulation Maryann Rubalcava MD Work Phone: [facility] Work Phone: 01-04-2021 COVID-19 (J&J) DO Josh Melvin Work Phone: [facility] 01-04-2021 COVID-19 Vaccine Dereck - Documentation Purposes Only Mariel Mcgraw Other [facility] 08-18-2020 Seasonal, quadrivalent, recombinant, injectable influenza vaccine, preservative free Maryann Rubalcava MD Work Phone: [facility] 07-27-2020 influenza, seasonal, injectable Maryann Rubalcava MD Work Phone: [facility] 11-11-2019 tetanus toxoid, reduced diphtheria toxoid, and acellular pertussis vaccine, adsorbed Mariel Mcgraw Other [employer] Other 08-16-2019 influenza, seasonal, injectable, preservative free Maryann Rubalcava MD Work Phone: [facility] Work Phone: 08-09-2019 influenza, injectabl e, quadrivalent, preservative free Maryann Rubalcava MD Work Phone: [facility] 08-09-2019 pneumococcal polysaccharide vaccine, 23 valcheyanne Rubalcava MD Work Phone: [facility] 08-08-2019 pneumococcal polysaccharide vaccine, 23 valent Maryann Rubalcava MD Work Phone: [facility] Work Phone: 09-08-2018 influenza, injectabl e, quadrivalent, contains preservative Maryann Rubalcava MD Work Phone: [facility] 07-29-2017 influenza, injectable,quadrivalen t, preservative free, pediatric Kamal Chaban Other [employer] Other 10-14-2009 pneumococcal polysaccharide vaccine, 23 valcheyanne Rubalcava MD Work Phone: [facility] Work Phone: NEGATED: Highlighted row has not occurred!07-29-2017 influenza, injectable,quadrivalen t, preservative free, pediatric Kamal Chaban Other [employer] Other Payers Date Payer Category Payer Self-pay [id number] 2022 Private Health Insurance 2021 Medicare [id number] [id number] 2021 Medicare [id number] .[id number] 2021 Medicare [id number] 2.16.840.1.518175.19 2021 Medicare [id number] 2.16.840.1.179275.19 1958 Unknown [id number] 2.16.840.1.713844.3.579.2.124 2 1958 Unknown [id number] 2.16.840.1.799004.3.579.2.124 2 1958 Unknown [id number] 2.16.840.1.941150.3.579.2.124 2 1958 Unknown [id number] 2.16.840.1.355915.3.579.2.124 7 1958 Unknown [id number] 2.16.840.1.451605.3.579.2.124 7 1958 Unknown [id number] 2.16.840.1.884783.3.579.2.196 1958 Unknown [id number] 2.16.840.1.194005.3.579.2.196 1958 Unknown [id number] 2.16.840.1.711675.3.579.2.196 1958 Unknown [id number] 2.16.840.1.219071.3.579.2.196 1958 Unknown [id number] 2.16.840.1.040202.3.579.2.196 1958 Unknown [id number] 2.16.840.1.872233.3.579.2.196 1958 Unknown [id number] 2.16.840.1.852749.3.579.2.196 1958 Unknown [id number] 2.16.840.1.294919.3.579.2.196 1958 Unknown [id number] 2.16.840.1.765876.3.579.2.196 1958 Unknown [id number] 2.16.840.1.599013.3.579.2.125 9 1958 Unknown [id number] 2.16.840.1.741986.3.579.2.125 9 1958 Unknown [id number] 2.16.840.1.288637.3.579.2.125 9 1958 Unknown [id number] 2.16.840.1.529976.3.579.2.125 9 1958 Unknown [id number] 2.16.840.1.118708.3.579.2.125 9 1958 Unknown [id number] 2.16.840.1.951291.3.579.2.125 9 1958 Unknown [id number] 2.16.840.1.631610.3.579.2.125 9 1958 Unknown [id number] 2.16.840.1.533583.3.579.2.125 9 1958 Unknown [id number] 2.16.840.1.572269.3.579.2.125 9 1958 Unknown [id number] 2.16.840.1.507817.3.579.2.125 9 Medicare Medicare [id number] Medicare MMO MCR Adv PFFS [id number] Medicare [employer] MCR [id number] Unknown [id number] 2.16.840.1.984562.3.579.2.531 Unknown [id number] 2.16.840.1.722898.3.579.2.531 Unknown [id number] 2.16.840.1.667763.3.579.2.531 Unknown [id number] 2.16.840.1.081362.3.579.2.531 Unknown [id number] 2.16.840.1.901203.3.579.2.531 Unknown [id number] 2.16.840.1.288734.3.579.2.531 Unknown [id number] 2.16.840.1.484928.3.579.2.531 Unknown [id number] 2.16.840.1.602954.3.579.2.531 Unknown [id number] 2.16.840.1.614730.3.579.2.531 Unknown [id number] 2.16.840.1.912944.3.579.2.531 Unknown [id number] 2.16.840.1.487503.3.579.2.531 Unknown [id number] 2.16.840.1.676563.3.579.2.531 Unknown [id number] 2.16.840.1.694082.3.579.2.531 Unknown [id number] 2.16.840.1.582995.3.579.2.531 Worker's Compensation [employer] [facility] [id number] Social History Date Type Detail Facility Start: 11-11-2023 End: 04-01-2024 Sex Assigned At [facility] [employer] Other Start: 05-22-2021 End: 05-22-2021 Tobacco smoking status DEIS Smoker (finding) [facility] Start: 1960 Sex Assigned At Male [facility] Start: 03-26-2023 End: 01-19-2024 Tobacco smoking status DEIS Ex-smoker [facility] History of tobacco use Cigarette Smoker [facility] Start: 03-26-2023 End: 11-11-2023 Tobacco use and exposure Smokeless tobacco non-user [facility] Start: 03-26-2023 Alcohol intake Current drinke r of alcohol (finding) [facility] Start: 03-26-[address] [facility] Start: 1960 Sex Assigned At [facility] file [facility] Start: 11-11-2023 Tobacco smoking status NHIS Never smoked tobacco [facility] Work Phone: Start: 11-01-2023 End: 04-01-2024 Exposure to SARS-CoV-2 (event) Not sure [facility] Start: 11-11-2023 End: 04-01-2024 History of [address] function [facility] Work Phone: Medical Equipment Procedure Code Equipment Code Equipment Origin al Text Equipment Identifier Dates Repair, hernia, ventral, with mesh Abdominal hernia surgical mesh, composite-polymer [id number] FDA Start: 01-19-2024 Repair, hernia, inguinal, with mesh Abdominal hernia surgical mesh, synthetic polymer, non-bioabsorbable ()[id number] [facility] Start: 11-03-2023 [id number] Start: 08-14-2023 Goals Date Patient Goal Desired Activity /State Personal health goal Clinical Notes 04-17-2021 to 04-01-2024 Maryann Rubalcava MD - 04/01/2024 9:00 AM Carmen Rubalcava MD - 11/11/2023 10:00 AM EST Note Date & Type Note Facility 04-01-2024 History of Present illness Narrative It was a pleasure to see Mr. Meier at the Neurosurgery Spine Clinic at [facility]. Patient is a 62-year-old male with [...] groups. 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 Even in the supine football scout CT for patient has a flatback deformity. [...] the further treatment plan. Maryann Rubalcava MD, [facility] Refuse Laborer of Neurological Surgery [facility] [employer] Attending Surgeon Director - Minimally Invasive Spine Surgery [place], [place] ---Some of this note was completed using [employer] voice recognition technology and sometimes the software misinterprets words. This may include unintended errors with respect to translation of words, typographical errors or grammar errors which may not have been identified prior to finalization of the chart note. Please take this into account when reading this note--- documented in this encounter [facility] Work Phone: 11-11-2023 History of Present illness Narrative It was a pleasure to see Mr. Meier at the Neurosurgery Spine Clinic at [facility]. Patient is a 62-year-old male with [...] L2-L3 and L1-L2. Even in the supine football scout CT for patient has a flatback deformity. [...] All questions were answered. Maryann Rubalcava MD, [facility] Refuse Laborer of Neurological Surgery [facility] [employer] Attending Surgeon Director - Minimally Invasive Spine Surgery [place], [place] Some of this note was completed using [employer] voice recognition technology and sometimes the software misinterprets words. This may include unintended errors with respect to translation of words, typographical errors or grammar errors which may not have been identified prior to finalization of the chart note. Please take this into account when reading this note documented in this encounter [facility] Work Phone: 10-14-2023 Evaluation note Encounter [...] region with neurogenic claudication (ICD-10 - M48.062) [employer] Other 12-05-2023 NoteProcedure Performed by: Savanna Mcclain M.D. Procedure: Placement of [employer] Impulse Generator Battery under fluoroscopic guidance *Battery [...] by Johny MATUTE, Savanna Darden 09/30/23 13:12 [facility] 09-30-2023 NoteHistory of Present Illness The patient [...] signed by Savanna Mcclain MD 09/30/23 13:10 [facility] 09-16-2023 Evaluation note* Encounter Date Diagnosis Assessment [...] weeks. Aug, Lumbar radiculopathy (ICD-10 - M54.16) [employer] Other 08-17-2023 Evaluation note* Encounter Date Diagnosis Assessment Notes Treatment Notes Treatment Clinical Notes May, Gastroesophageal ref lux disease, unspecified whether esophagitis present (ICD-10 - K21.9) [employer] Other 05-31-2023 NoteHNO ID: [id number] Author: Donny Peralta APRN.MANAGER DEMAND Service: ? Author Type: Nurse Practitioner Type: [...] 2 to 3 weeks time. Donny Peralta APRN.MANAGER DEMAND CC: Josh Melvin [facility]05-31-2023 History of Present illness Narrative* Donny Peralta APRN.MANAGER DEMAND - 03/26/2023 11:14 AM EDT Mr. Meier [...] CC: Josh Melvin DO [facility]* Encounter Date Diagnosis Assessment Notes Treatment Notes Treatment Clinical Notes Mar, Obstructive sleep ap dee (ICD-10 - G47.33) Please get a compliance report now and before next visit Mar, Gastroesophageal ref lux disease, unspecified whether esophagitis present (ICD-10 - K21.9) Mar, Lung nodule (ICD-10 - R91.1) [employer] Other 03-15-2022 Evaluation note* Encounter Date [...] be after his CT in 1 year [employer] Other 01-14-2022 Evaluation note* Encounter Date Diagnosis Assessment Notes Treatment Notes Treatment Clinical Notes Oct, Encounter for immunization (ICD-10 - Z23) Patient presents for COVID-19 vaccination BOOSTER. Pre-screening form answers evaluated with patient. Patient denies current illness or allergic reaction to component of COVID-19 vaccine. Patient provided with current copy of EUA. [employer] Other 09-27-2021 Evaluation note* Encounter Date Diagnosis Assessment Notes Treatment Notes Treatment Clinical Notes Jun, Lung nodule (ICD-10 - R91.1) Jun, Chronic cough (ICD-1 0 - R05) Jun, Obstructive sleep ap dee (ICD-10 - G47.33) Jun, Gastroesophageal ref lux disease, unspecified whether esophagitis present (ICD-10 - K21.9) [employer] Other 06-24-2021 NotePatient: KOKO MEIER Age: [...] mg, 1 tab(s), Oral, BID, 0 [facility] Comment: Electronically Signed By: Kwame Yang DO\Date and Time Signed: 04/19/21 12:56 EDT 04-17-2021 [id number]:[id number] noteNo InformationNort Shutl Other Evaluation noteNort Shutl Other Evaluation noteNo assessment information available [facility] Work Phone: Evaluation note* Diagnosis Laryngeal candidiasis- Primary Other candidiasis of other specified sites Glossitis Oral candidiasis Candidiasis of mouth Hoarseness of voice Dysphonia History of alcohol abuse Nondependent alcohol abuse, in remission [facility] Cervical myelopathy (CMS/HCC)- Primary Cervical spondylosis with myelopathy Sagittal plane imbalance Other curvatures of spine associated with other conditions 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 Lumbar stenosis with neurogenic claudication documented in this encounter [facility] Work Phone: Evaluation note* Diagnosis Onset Date Resolution Status Cervical stenosis of spine a cute History of fusion of cervical spine acute History of lumbar fusion acu te Neurogenic claudication due to lumbar spinal stenosis acute [facility] Work Phone: Evaluation note* Diagnosis Cervical spinal 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 segment disease 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 procedure- Primary Cervical myelopathy (Multi) Cervical spondylosis with myelopathy documented in this encounter [facility] Work Phone: Evaluation note* Diagnosis Cervical myelopathy (Multi) Cervical spondylosis with myelopathy documented in this encounter [facility] Work Phone: History general Narrative - [...] finger 10/2019 Hospitalization History see sx history [employer] Other [facility] general Narrative - [facility] [employer] Other [facility] general Narrative - Reported* Type Description Date [...] finger 10/2019 Hospitalization History see sx history [employer] Other Hospital Discharge instructions Additional Instructions Please call Dr. Becker' office to reschedule your surgery.[facility] Work Phone: Hospital Discharge instructions Additional Instructions 1. No driving if taking narcotic pain medication. 2. No lifting more than 20 pounds for 3 weeks. 3. May shower.[facility] Work Phone: Hospital Discharge instructions Additional Instructions 1. No driving if taking narcotic pain medication. 2. No lifting more than 20 pounds for 4 weeks. 3. May shower. 4. Can use abdominal binder as needed for comfort.[facility] Work Phone: Progress note Author Yogesh Becker [facility] October 02, 2023 9:46am Note Date/Time October 02, 2023 9 :46am [facility] [address] [place] [address] Progress Note Signed Patient: Koko Meier MR#: [id number] : 1960 Acct:[id number] Age/Sex: 62 / M Adm Date: 3 Loc: [place] Room: Type: [facility] Attending Dr: Yogesh Becker MD Copies to: ~ Date of Service: 10/02/2023 Progress Narrative Note PROGRESS NOTE Progress Note: Patient's tox screen today is positive for cocaine. Surgery will be canceled. Patient is told to call the office this afternoon to reschedule the surgery. Documented By: Yogesh Becker MD 10/02/2345 Signed By: <Electronically signed by MD Yogesh Becker> 10/02/2346 [facility] Work Phone: Summary Purpose Family History [...] Referred To Contact Radiology Diagnoses Cervical myelopathy ([facility]) Procedures MR cervical spine [place] [id number] [address] Department [place] [address] Referral ID Status Reason Start Date Expiration Date Visits Requested Visits Authorized Pending Review Perform Procedure 11/11/2023 11/10/2024 1 1 Specialty Diagnoses / Procedures Referred By Contac t Referred To Contact Radiology Diagnoses Sagittal plane imbalance Procedures X-ray scoliosis 2 View (NON EOS) [place] [id number] [address] Department [place] [address] Referral ID Status Reason Start Date Expiration Date Visits Requested Visits Authorized Authorized Perform Procedure 11/11/2023 11/10/2024 1 1 Reason surgical consult Diagnosis 1 Lumbar myelopathy (G 95.9) Referral Organization 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 Referring Provider First Name Karime Referring Provider Last Name Marleni Referring Provider Specialty Nurse Pract itioner Referred Organization [facility] Referred Address [address],[place], [place],[address] Referred Provider Specialty Physical The rapist Referral Priority Routine Additional Source Comments (unrecognized sect ion and content) No Status Records FoundNo Status Records FoundNo Status Records FoundNo Status Records FoundNo Status Records FoundNo Status Records FoundNo Status Records Found INFORMATION SOURCE (unrecogn ized section and content) DATE CREATED AUTHOR 04/27/2021 [facility] [place] [facility] DATE CREATED AUTHOR AUTHOR'S ORGANIZ ATION 04/15/2023 [facility] DATE CREATED AUTHOR AUTHOR'S ORGANIZ ATION 04/03/2024 [facility] DATE CREATED AUTHOR AUTHOR'S ORGANIZ ATION 04/05/2024 [facility] DATE CREATED AUTHOR AUTHOR'S ORGANIZ ATION 04/14/2024 [facility] DATE CREATED AUTHOR AUTHOR'S ORGANIZ ATION 04/18/2024 [facility] DATE CREATED AUTHOR AUTHOR'S ORGANIZ ATION 04/22/2024 [facility] EPIC REASON FOR VISIT (unrecogniz ed section and content) Reason Comments Mouth lesion on left side Specialty Diagnoses / Procedures Referred By Contact Referred To Contact Ent - Otolaryngology / ENT-OTOLARYNGOLOGY Diagnoses Mouth Lesion on Left side of jaw Procedures NEW [facility]NI PATIENT Josh Melvin DO [address] [place] [address] Donny Peralta, CELL TUBER MACHINE.[facility] [address] [place] [address] Referral ID Status Reason Start Date Expiration Date V isits Requested Visits Authorized [id number] Authorized 03/25/2023 10/26/2023 99 99 Reason Comments Neck Pain Back Pain Reason Comments Back Pain Specialty Diagnoses / Procedures Referred By Contac t Referred To Contact Radiology Diagnoses Cervical myelopathy (Multi) Procedures XR cervical spine complete 4-[place] [address] [address] Department [place] [address] Referral ID Status Reason Start Date Expiration Date Visits Requested Visits Authorized [id number] Authorized Perform Procedure 04/01/2024 04/01/2025 1 1 Care Teams (unrecognized sec tion and content) Team Status: Inactive Member Role Status Dates Joshana Melvin , DO Primary Care Provider, Attending Dante peter Active Team Status: Active Member Role Status Dates Joshana Velascoting , DO Primary Care Provider Active Team [...] DO Primary Care Provider Active Nery Casanova VAMP MARKER- Emergency Provider Active Team Status: Inactive Member [...] Status: Inactive Member Role Status Dates Josh Abdirahman DO Primary Care Provider Active Start: March 11, 2024 End: March 11, 2024 Lyndon Nation MD Attending Provider Active Star t: March 11, 2024 End: March 11, 2024 Team Status: Inactive Member Role Status Dates Josh Velascojayleen DO Primary Care Provider Active Start: March 31, 2024 End: March 31, 2024 Maryann Rubalcava MD Attending Provider Active Start: March 31, 2024 End: March 31, 2024 Rent Collector Relationship Specialty Start Date End Date Javi Melvinrin Kasi [address] [place] [id number] PCP - General Family Medicine 04/01/24 Rent Collector Relationship Specialty Start Date End Date RodjayleenJosh DO [address] [place] [id number] PCP - General Family Medicine 04/01/24 Goals [...] or prosecute any alcohol or drug abuse patient.[facility] FOR RECORDS PERTAINING TO PATIENTS WHO [...] BE BASED ON THE PRIMARY CLINICAL RECORDS. [facility]. provides no warranty or guarantee of the accuracy or completeness of information in this document.
[2024-04-26 07:09] VITALS: BP 157/84; PULSE 91; TEMP 36.3; O2SAT 93
[2024-04-26 07:15] LABS: Glucometer 255 mg/dL (74-106)
[2024-04-26] MEDS: 0.9 % SODIUM CHLORIDE 500 ML 50 ML IV (07:18)
--- NOTE | 2024-04-26 08:02 | P.ON_ITS ---
Date of procedure: 04/26/24 Pre-op diagnosis: Cervical spondylosis without myelopathy Post-op diagnosis: same as pre-op Procedure: Procedure: Left C3-4, 4-5 radiofrequency ablation Medications: Bupivacaine 0.25% 3cc, lidocaine 2% 3cc, dexamethasone 10mg The patient was seen and examined in the preoperative holding area.? The site was marked.? Written informed consent was obtained and placed on the chart.? The patient was brought to the medical procedure unit and placed in the prone position.? A timeout was completed verifying correct patient, procedure, positioning, and special requirements.? The skin overlying the target points, the designated medial branch, were prepped and draped in the usual sterile fashion.? The target point was achieved with a 20-gauge 15 cm with a 10 mm curved active tip radiofrequency cannula under direct fluoroscopic visualization.? The needle was inserted at level C3 on the left side. Needle tip position was confirmed with lateral fluoroscopic position.? Motor stimulation was carried out at 2 Hz up to 5 volts with the absence of extremity activity.? This was repeated at level C4, 5 on left side.?? Sensory stimulation was carried out.? Concordant pain was realized at the above- mentioned sites.? Then radiofrequency lesioning was carried out times 90 seconds at 80 degrees times 2 lesions at each level.? The radiofrequency probe was removed prior to cannula removal.? The above-mentioned injectate was placed in 1 mL increments.? The needle was removed.? Insertion sites were covered.? The patient was taken to the postoperative recovery area and monitored for an appropriate length of time before being found suitable for discharge in the company of a responsible adult. Anesthesia: MAC Surgeon: Savanna Mcclain Pathology: none sent Condition: stable Disposition: no change
[2024-04-26] MEDS: BUPIVACAINE HCL 0.25% PF 25 MG/10 ML VIAL 2 ML INJ (08:03)
[2024-04-26] MEDS: LIDOCAINE HCL 2% 400 MG/20 ML MDV 4 ML INJ (08:03)
[2024-04-26] MEDS: DEXAMETHASONE SOD PHOS 10 MG/ML VIAL INJ (08:03)
[2024-04-26 08:05] VITALS: BP 117/97; PULSE 86; TEMP 36.7; O2SAT 94
[2024-04-26 08:08] VITALS: BP 97/59; PULSE 80; TEMP 36.7; O2SAT 94
== END 2024-04-26 08:20 | disposition home or self-care (01) ==
LOC: SURGOUT 06:57
PROVIDERS: PCP Family Medicine; Visit Provider Anesthesiology
DX: M47.812 Spondylosis without myelopathy or radiculopathy, cervical region (principal); E11.9 Type 2 diabetes mellitus without complications; Z79.4 Long term (current) use of insulin; Z79.84 Long term (current) use of oral hypoglycemic drugs
CPT/HCPCS: 36415; 64633; 64634; 82948; J0665; J1100

== ENCOUNTER 2024-05-20 08:59 | Outpatient (OUT) | payer MEDICARE, SELFPAY ==
--- OUTSIDE RECORDS SUMMARY | 2024-05-20 09:16 | XMS_ITS | CCD ---
Author Organization [facility] Inform ion Partnership [facility] Care Team Providers Care Horse Doctor Name Role Phone Mariel Mcgraw Unavailable Courtney Espino Unavailable Bunting, DO Josh Primary Care Provider Flip Diamond Attending Provider Alexis Abdi Unavailable Bunting, DO Josh Primary Care Provider [phone] Bunting, DO Josh Attending Provider MD Yunier Ariza Attending Provider [phone] Bunting, DO Josh Primary Care Provider [...] Provider Bunting, DO Josh Primary Care Provider CASIMIRO Casanova-AMAIRANI [facility] Emergency Provider Bunting, DO Josh Attending Provider MD Savanna Mcclain Attending Provider Bunting, DO Josh Primary Care Provider [place], [facility] Emergency Provider Bunting, DO Josh Attending Provider MD Savanna Mcclain Attending Provider MD Yogesh Becker Attending Provider Karime Nguyen Unavailable Bunting, DO Josh Primary Care Provider [phone] Unavailable Primary Care Provider Unavailabl e Bunting, DO Josh Primary Care Provider [phone] Bunting, DO Josh Attending Provider [phone] MD Oliver Kerr Referring Provider MD Oliver Kerr Attending Provider MD Maryann Rubalcava Attending Provider Bunting, DO Josh Primary Care Provider MD Yogesh Becker Attending Provider Bunting, DO Josh Attending Provider [phone] MD Oliver Kerr Referring Provider MD Oliver Kerr Attending Provider [phone] MD Maryann Rubalcava Attending Provider Bunting, DO Josh Primary Care Provider MD Yogesh Becker Attending Provider MD Maryann Rubalcava Attending Provider Bunting DO, Josh Ray Primary Care Provider Maryann Rubalcava Attending Unavailable Maryann Rubalcava Admitting Unavailable Bunting, [...] Josh Attending Unavailable Bunting, Josh Admitting Unavailable [place], Oliver Referring Unavailable Bunting, Josh Attending Unavailable Bunting, Josh Admitting Unavailable Bunting, Josh Primary Care Unavailable Bunting, Josh Primary Care Unavailable [place], Oliver Attending Unavailable [place], Oliver Admitting Unavailable Bunting, Josh Primary Care Unavailable KasliMaryann leon Admitting Unavailable KasliwalMaryann Attending Unavailable BECKER VYOGESH Attending Unavailable BUNTING, JOSH R Referring Unavailable BECKER V, YOGESH Attending Unavailable IMTIAZ ZAIDI Attending Unavailable KARIME NGUYEN Referring Unavailable PETFEROZ PORTILLO Attending Unavailable BUNTING, JOSH R Referring Unavailable BECKER V, YOGESH Attending Unavailable BECKER Morris, YOGESH Attending Unavailable PETZNFEROZ BAI Attending Unavailable BECKER V, YOGESH Attending Unavailable PETZNFEROZ BAI Attending Unavailable BRYCE URENA Attending Unavailable BUNTING, JOSH R Referring Unavailable Giedraitis , Andrius Vaubrey Attending Unavailable Giedraitis MD, Andrius Vytautas Attending Unavailable Giedraitis MD, Andrius Vytautas Attending Unavailable Giedraitis MD, Andrius Vytautas Attending Unavailable Giedraitis MD, Andrius Vytautas Attending Unavailable Giedraitis MD, Andrius Vytautas Attending Unavailable Giedraitis MD, Andrius Vytautas Attending Unavailable Giedraitis MD, Andrius Vytautas Attending Unavailable Giedraitis MD, Andrius Vytautas Attending Unavailable Giedraitis MD, Savanna Darden Attending Unavailable KASLIWAL, MARYANN K Attending Unavailable BUNTING, JOSH RAY Primary Care Unavailable KASLIWAL, MARYANN K Referring Unavailable BUNTING, JOSH RAY Primary Care Unavailable KASLIWAL, MARYANN K Attending Unavailable KASLIWAL, MARYANN K Referring Unavailable KASLIWAL, MARYANN K Admitting Unavailable KASLIWAL, MARYANN K Attending Unavailable BUNTING, JOSH RAY Primary Care Unavailable VINOD LOCO Attending Unavailable BUNTING, JOSH RAY Primary Care Unavailable KASLIWAL, MARYANN K Referring Unavailable BUNTING, JOSH RAY Primary Care Unavailable Medications Current Medications Medication [...] on above: take 1 capsule by mo [facility] twice a day Oral for 28 Days [...] day. 02/07/2023 Active take 1 tablet by [facility] every twenty-four hours Cyclobenzaprine HCl 10 MG [...] Start: 04-20-2019 take 1 capsule by mo uth twice daily Duloxetine (Cymbalta) 60 mg Capsule,Delayed Release(Dr/Ec) Active 60 MG PO Twice daily April 20, 2019 12:00am Start: 04-20-2019 Duloxetine (Cy mbalta) 60 mg Capsule,Delayed Release(Dr/Ec) Active 30 MG PO Twice daily April 20, 2019 12:00am take 1 capsule by mo ut every twenty-four hours DULoxetine HCl 60 MG [...] mouth. FreeStyle René reader (FreeStyle René 2 [place]) misc (3 sources) Start: 07-25-2023 End: 07-24-2024 FreeStyle René reader (FreeStyle René 2 [place]) misc 1 each by Does not apply route every 14 (fourteen) days. 07/25/2023 07/24/2024 Active Start: 07-25-2023 End: 07-24-2024 FreeStyle René reader (Free Style René 2 [place]) misc 1 each by Does not apply [...] on above: Take 1 capsule by mo [facility]. hydroCHLOROthiazide 12.5 mg / lisinopril 20 mg oral tablet (20 sources) Thiazide Diuretic, Angiotensin Converting Enzyme Inhibitor Start: 09-23-20 23 take 1 tablet by mouth once daily in the morning Lisinopril-[place] chlorothiazide Active 1 TAB PO Every morning [...] Active Start: 01-30-2023 take 1 capsule by [facility] every six hours as needed hydrOXYzine [...] [Palpitations] 02-26-2021 Episodic Diabetes mellitus with complications (18 sources) Hyperglycemia due to type 2 diabetes [...] Onset: 07-23-2021 Resolved: 04-16-2022 Chronic Essential hypertension (7 sources) Hypertensive disorder; Translations: [Essential (primary) hypertension] [...] Translations: [Solitary pulmonary nodule] 05-22-2021 Episodic Other lower respiratory disease (4 sources) Shortness of breath; Translations: [Shortness of breath] Onset: 05-17-2024 Episodic Other nervous system disorders (6 sources) [...] [half-way (current) use of insulin] Episodic Other connective [...] Name Value Interpretation Reference Range Facility Basic metabolic 2000 panelon 05-17-2024 Anion gap [Moles/Vol] 14 mmol/L Normal 10-20 [facility] Comment on above: Performed By: #### 2 4321-2 #### JOSHUA CRESPO ([id number]) [facility] ([facility]) [address] [place] [address] Calcium [Mass/Vol] 9.0 mg/dL Normal 8.6-10.3 [facility] Comment on above: Performed By: #### 2 4321-2 #### JOSHUA CRESPO (98837) [facility] ([facility]) [address] [place] [address] Chloride [Moles/Vol] 99 mmol/L Normal 98-107 [facility] Comment on above: Performed By: #### 2 4321-2 #### JOSHUA CRESPO (25001) [facility] ([facility]) [address] [place] [address] CO2 [Moles/Vol] 31 mmol/L Normal 21-32 [facility] Comment on above: Performed By: #### 2 4321-2 #### JOSHUA CRESPO (38603) [facility] ([facility]) [address] [place] [address] Creatinine [Mass/Vol] 0.70 mg/dL Normal 0.50-1.30 [facility] Comment on above: Performed By: #### 2 4321-2 #### JOSHUA CRESPO (70474) [facility] ([facility]) [address] [place] [address] GFR/1.73 sq M.predicted MDRD (S/P/Bld) [Vol rate/Area] mL/min/{1.73_m2} Normal >60 [facility] Comment on above: Result Comment: Calc ulations of estimated GFR are performed using the 2020 CKD-EPI Study Refit equation without the race variable for the IDMS-Traceable creatinine methods. https://jasn.asnjournals.org/content/early/ASN.217341 6332 Performed By: #### 2 4321-2 #### JOSHUA CRESPO (39435) [facility] ([facility]) [address] [place] [address] Glucose [Mass/Vol] 158 mg/dL High 74-99 [facility] Comment on above: Performed By: #### 2 4321-2 #### JOSHUA CRESPO (05843) [facility] ([facility]) [address] [place] [address] Potassium [Moles/Vol] 4.5 mmol/L Normal 3.5-5.3 [facility] Comment on above: Performed By: #### 2 4321-2 #### JOSHUA CRESPO (08291) [facility] ([facility]) [address] [place] [address] Sodium [Moles/Vol] 139 mmol/L Normal 136-145 [facility] Comment on above: Performed By: #### 2 4321-2 #### JOSHUA CRESPO (73946) [facility] ([facility]) [address] [place] [address] Urea nitrogen [Mass/Vol] 17 mg/dL Normal 6-23 [facility] Comment on above: Performed By: #### 2 4320-2 #### JOSHUA CRESPO (99364) [facility] ([facility]) [address] [place] [address] Blood type and Indirect anti body screen panel (Bld)on 05-17-2024 ABO group Nom (Bld) [facility] Comment on above: Performed By: #### 3 4531-2 #### JOSHUA CRESPO (60813) [facility] [address] [place] [address] [place] Blood group antibody screen Ql Negative [facility] Comment on above: Performed By: #### 3 2-2 #### JOSHUA CRESPO (03407) [facility] ([facility]) [address] [place], [place] [address] [place] D Ag Ql (Bld) Positive [facility] Comment on above: Performed By: #### 3 4531-2 #### JOSHUA CRESPO (32893) [facility] ([facility]) [address] [place], [place] [address] [place] CBC W Auto Differential pane l (Bld)on 05-17-2024 Basophils (Bld) [#/Vol] 0.04 x10*3/uL Normal 0.00-0.10 [facility] Comment on above: Performed By: #### 5 7021-8 #### JOSHUA CRESPO (71299) [facility] ([facility]) [address] [place] [address] Basophils/100 WBC (Bld) 0.7 % Normal 0.0-2.0 [facility] Comment on above: Performed By: #### 5 7021-8 #### JOSHUA CRESPO (39141) [facility] ([facility]) [address] [place] [address] Eosinophils (Bld) [#/Vol] 0.23 x10*3/uL Normal 0.00-0.70 [facility] Comment on above: Performed By: #### 5 7021-8 #### JOSHUA CRESPO (85304) [facility] ([facility]) [address] [place] [phone] Eosinophils/100 WBC (Bld) 3.8 % Normal 0.0-6.0 [facility] Comment on above: Performed By: #### 5 7021-8 #### JOSHUA CRESPO (13452) [facility] ([facility]) [address] [place] [phone] Erythrocyte distribution width (RBC) [Ratio] 13.7 % Normal 11.5-14.5 [facility] Comment on above: Performed By: #### 5 7021-8 #### JOSHUA CRESPO (74912) [facility] ([facility]) [address] [place] [phone] Hematocrit (Bld) [Volume fraction] 46.0 % Normal 41.0-52.0 [facility] Comment on above: Performed By: #### 5 7021-8 #### JOSHUA CRESPO (71987) [facility] ([facility]) [address] [place] [address] Hemoglobin (Bld) [Mass/Vol] 15.4 g/dL Normal 13.5-17.5 [facility] Comment on above: Performed By: #### 5 7021-8 #### JOSHUA CRESPO (13627) [facility] ([facility]) [address] [place] [address] Immature granulocytes (Bld) [#/Vol] 0.02 x10*3/uL Normal 0.00-0.70 [facility] Comment on above: Performed By: #### 5 7021-8 #### JOSHUA CRESPO (14637) [facility] ([facility]) [address] [place] [address] Immature granulocytes/100 WBC (Bld) 0.3 % Normal 0.0-0.9 [facility] Comment on above: Result Comment: Bhargavi ture Granulocyte Count (IG) includes promyelocytes, myelocytes and metamyelocytes but does not include bands. Percent differential counts (%) should be interpreted in the context of the absolute cell counts (cells/UL). Performed By: #### 5 7021-8 #### JOSHUA CRESPO (78437) [facility] ([facility]) [address] [place] [address] Lymphocytes (Bld) [#/Vol] 1.49 x10*3/uL Normal 1.20-4.80 [facility] Comment on above: Performed By: #### 5 7021-8 #### JOSHUA CRESPO (52687) [facility] ([facility]) [address] [place] [address] Lymphocytes/100 WBC (Bld) 24.9 % Normal 13.0-44.0 [facility] Comment on above: Performed By: #### 5 7021-8 #### JOSHUA CRESPO (22131) [facility] ([facility]) [address] [place] [address] MCH (RBC) [Entitic mass] 32.0 pg Normal 26.0-34.0 [facility] Comment on above: Performed By: #### 5 7021-8 #### JOSHUA CRESPO (58316) [facility] ([facility]) [address] [place] [address] MCHC (RBC) [Mass/Vol] 33.5 g/dL Normal 32.0-36.0 [facility] Comment on above: Performed By: #### 5 7021-8 #### JOSHUA CRESPO (08815) [facility] ([facility]) [address] [place] [address] MCV (RBC) [Entitic vol] 96 fL Normal 80-100 [facility] Comment on above: Performed By: #### 5 7021-8 #### JOSHUA CRESPO (49872) [facility] ([facility]) [address] [place] [phone] Monocytes (Bld) [#/Vol] 0.39 x10*3/uL Normal 0.10-1.00 [facility] Comment on above: Performed By: #### 5 7021-8 #### JOSHUA CRESPO (75166) [facility] ([facility]) [address] [place] [address] Monocytes/100 WBC (Bld) 6.5 % Normal 2.0-10.0 [facility] Comment on above: Performed By: #### 5 7021-8 #### JOSHUA CRESPO (29338) [facility] ([facility]) [address] [place] [address] Neutrophils (Bld) [#/Vol] 3.82 x10*3/uL Normal 1.20-7.70 [facility] Comment on above: Result Comment: Perc ent differential counts (%) should be interpreted in the context of the absolute cell counts (cells/uL). Performed By: #### 5 7021-8 #### JOSHUA CRESPO (24814) [facility] ([facility]) [address] [place] [address] Neutrophils/100 WBC (Bld) 63.8 % Normal 40.0-80.0 [facility] Comment on above: Performed By: #### 5 7021-8 #### JOSHUA CRESPO (13779) [facility] ([facility]) [address] [place] [address] Nucleated RBC/100 WBC (Bld) [Ratio] 0.0 /100 WBCs Normal 0.0-0.0 [facility] Comment on above: Performed By: #### 5 7021-8 #### JOSHUA CRESPO (71424) [facility] ([facility]) [address] [place] [address] Platelets (Bld) [#/Vol] 186 x10*3/uL Normal 150-450 [facility] Comment on above: Performed By: #### 5 7021-8 #### JOSHUA CRESPO (62589) [facility] ([facility]) [address] [place] [address] RBC (Bld) [#/Vol] 4.81 x10*6/uL Normal 4.50-5.90 [facility] Comment on above: Performed By: #### 5 7021-8 #### JOSHUA CRESPO (55650) [facility] ([facility]) [address] [place] [address] WBC (Bld) [#/Vol] 6.0 x10*3/uL Normal 4.4-11.3 [facility] Comment on above: Performed By: #### 5 7021-8 #### JOSHUA CRESPO (70896) [facility] ([facility]) [address] [place] [address] ECG 12-LEADon 05-17-2024 ECG 12-LEAD Ventricular Rate 70 Atrial Rate 70 P-R Interval 186 QRS Duration 96 Q-T Interval 384 QTC Calculation(Bazett) 414 P Keo 35 R Keo -13 T Keo 35 QRS Count 11 Q Onset 223 P Onset 130 P Offset 179 T Offset 415 QTC Fredericia 404 Diagnosis Normal sinus rhythm Normal ECG No previous ECGs available Confirmed by Bonifacio Cruz ([id number]) on 05/17/2024 1:21:00 PM Normal [facility] HbA1c (Bld) [Mass fraction]o n 05-17-2024 Average glucose Estimated from glycated hemoglobin (Bld) [Mass/Vol] 194 mg/dL Normal Not Established [facility] Comment on above: Order Comment: Diagn osis of Diabetes-Adults Non-Diabetic: < or = 5.6% Increased risk for developing diabetes: 5.7-6.4% Diagnostic of diabetes: > or = 6.5% Performed By: #### 4 548-4 #### ELEONORA Glez (46848) [facility] ([facility]) [address] [place] [address] Hemoglobin A1c/Hemoglobin.to jose 05-17-2024 HbA1c (Bld) [Mass fraction] 8.4 % High see below [facility] Comment on above: Order Comment: Diagn osis of Diabetes-Adults Non-Diabetic: < or = 5.6% Increased risk for developing diabetes: 5.7-6.4% Diagnostic of diabetes: > or = 6.5% Performed By: #### 4 548-4 #### ELEONORA Glez (48903) [facility] ([facility]) [address] [place] [address] PT and aPTT panel Coag (PPP) on 05-17-2024 aPTT Coag (PPP) [Time] 31 s Normal 27-38 [facility] Comment on above: Order Comment: The A PTT is no longer used for monitoring Unfractionated Heparin Therapy. For monitoring Heparin Therapy, use the Heparin Assay. Performed By: #### 3 4529-8 #### JOSHUA CRESPO (83036) [facility] ([facility]) [address] [place] [address] INR Coag (PPP) [Relative time] 0.9 Normal 0.9-1.1 [facility] Comment on above: Order Comment: The A PTT is no longer used for monitoring Unfractionated Heparin Therapy. For monitoring Heparin Therapy, use the Heparin Assay. Performed By: #### 3 4529-8 #### JOSHUA CRESPO (07250) [facility] ([facility]) [address] [place] [address] PT Coag (PPP) [Time] 9.6 s Low 9.8-12.8 [facility] Comment on above: Order Comment: The A PTT is no longer used for monitoring Unfractionated Heparin Therapy. For monitoring Heparin Therapy, use the Heparin Assay. Performed By: #### 3 4529-8 #### JOSHUA CRESPO (14042) [facility] ([facility]) [address] [place] [address] Urinalysis complete W Reflex Culture panel (U)on 05-17-2024 Appearance (U) Clear Normal Clear [facility] Comment on above: Performed By: #### 5 8077-9 #### JOSHUA CRESPO (00300) [facility] ([facility]) [address] [place], [place] [phone] Bilirubin (U) [Mass/Vol] Negative Normal NEGATIVE [facility] Comment on above: Performed By: #### 5 8077-9 #### JOSHUA CRESPO (14271) [facility] ([facility]) [address] [place], [place] [address] Color (U) Light-Yellow Normal Light-Yellow , Yellow, Dark-Yellow [facility] Comment on above: Performed By: #### 5 8077-9 #### JOSHUA CRESPO (55235) [facility] ([facility]) [address] [place], [place] [address] Glucose Auto test strip (U) [Mass/Vol] OVER (4+) Abnormal Normal [facility] Comment on above: Performed By: #### 5 8077-9 #### JOSHUA CRESPO (61845) [facility] ([facility]) [address] [place], [place] [address] Ketones (U) [Mass/Vol] Negative Normal NEGATIVE [facility] Comment on above: Performed By: #### 5 8077-9 #### JOSHUA CRESPO (49924) [facility] ([facility]) [address] [place], [place] [address] Leukocyte esterase Auto test strip Ql (U) Negative Normal NEGATIVE [facility] Comment on above: Performed By: #### 5 8077-9 #### JOSHUA CRESPO (12662) [facility] ([facility]) [address] [place] [address] Nitrite Auto test strip Ql (U) Negative Normal NEGATIVE [facility] Comment on above: Performed By: #### 5 8077-9 #### JOSHUA CRESPO (20567) [facility] ([facility]) [address] [place] [address] pH (U) 6.5 [pH] Normal 5.0, 5.5, 6.0, 6.5, 7.0, 7.5, 8.[address] [facility] Comment on above: Performed By: #### 5 8077-9 #### JOSHUA CRESPO (32281) [facility] ([facility]) [address] [place] [address] Protein (U) [Mass/Vol] 20 (TRACE) Normal NEGATIVE, 10 (TRACE), 20 (TRACE) [facility] Comment on above: Performed By: #### 5 8077-9 #### JOSHUA CRESPO (05417) [facility] ([facility]) [address] [place] [address] RBC (U) [#/Vol] Negative Normal NEGATIVE [facility] Comment on above: Performed By: #### 5 8077-9 #### JOSHUA CRESPO (98422) [facility] ([facility]) [address] [place] [address] RBC Auto (Urine sed) [#/Area] 1-2 Normal NONE, 1-2, 3-[address] [facility] Comment on above: Performed By: #### 5 8077-9 #### JOSHUA CRESPO (79522) [facility] ([facility]) [address] [place] [address] Specific gravity (U) [Rel density] 1.028 Normal 1.005-1.[address] [facility] Comment on above: Performed By: #### 5 8077-9 #### JOSHUA CRESPO (54152) [facility] ([facility]) [address] [place] [address] Urobilinogen (U) [Mass/Vol] Normal Normal Normal [facility] Comment on above: Performed By: #### 5 8077-9 #### JOSHUA CRESPO (70292) [facility] ([facility]) [address] [place] [address] WBC Auto (Urine sed) [#/Area] NONE Normal 1-5, NONE [facility] Comment on above: Performed By: #### 5 8077-9 #### JOSHUA CRESPO (86568) [facility] ([facility]) [address] [place], [place] [phone] XR CERVICAL SPINE COMPLETE 4 -5 VIEWSon 04-01-2024 XR CERVICAL SPINE COMPLETE 4-5 VIEWS Interpreted By: Lety Pickard, STUDY: XR CERVICAL SPINE COMPLETE 4-5 VIEWS 04/01/2024 10:20 am INDICATION: Signs/Symptoms:neck pain and cervical myelopathy COMPARISON: None available. ACCESSION NUMBER(S): [id number] ORDERING CLINICIAN: MARYANN RUBALCAVA TECHNIQUE: AP and [...] Lety Pickard 04/02/2024 7:21 PM Dictation workstation: [id number] [facility] Comment on above: Order Comment: Jem hankins perform upright AP, LATERAL views with FLEXION and EXTENSION films. ( Total 4 views ) XR scoliosis surveyon 2023 XR scoliosis survey [facility] [place] [address] [place], [place] [id number] XRay Report Signed Patient: Koko Meier MR#: [id number] : 1960 Acct:[id number] Age/Sex: 63 / M ADM Date: 03/31/24 Loc: XD Room: Type: [facility] CLI Attending Dr: Maryann Rubalcava MD [...] Bruce Ortiz M.D.03/31/2024 6:16 PM Dictation Location: [place] [address] Transcribed By: [facility] 03/31/241815 Dictated By: Bruce Ortiz II, MD 03/31/241811 Signed By: 03/31/241815 Normal [facility] Amphetamine Screen Ql (U)Ord ered By: Giuseppe Desuoza on 01-19-2024 Amphetamines Ql (U) Negative Negative [facility] Barbiturates [Presence] in U rine by Screen methodOrdered By: Giuseppe Desouza on 01-19-2024 Barbiturates Screen Ql (U) Negative Negative [facility] Benzodiazepines Screen Ql (U )Ordered By: Giuseppe Desouza on 01-19-2024 Benzodiazepines Ql (U) Negative Negative [facility] Benzoylecgonine [Presence] i n Urine by Screen methodOrdered By: Giuseppe Desouza on 01-19-2024 Benzoylecgonine Screen Ql (U) Negative Negative [facility] Cannabinoids [Presence] in U rine by Screen methodOrdered By: Giuseppe Desouza on 01-19-2024 Cannabinoids Screen Ql (U) Positive Negative [facility] Comment on above: These are unconfirme d results and should not be used for legal purposes. Drug Cut-Off Concentration: AMPH 1000 ng/mL ZE 200 ng/mL DUANE 200 ng/mL COCM 300 ng/mL OP 300 ng/mL PCP 25 ng/mL THC 20 ng/mL Capillary blood glucose ezra urement by glucometer (mass/volume)Ordered By: Yogesh Becker on 01-19-2024 Glucose [Mass/Vol] 160 mg/dL Normal [facility] Comment on above: Random Glucose Refer ence Range is dependent on time and content of last meal. Glucose of more than 200 mg/dL in a nonstressed, ambulatory subject supports the diagnosis of Diabetes Mellitus. Result Comment: Rarden om Glucose Reference Range is dependent on time and content of last meal. Glucose of more than 200 mg/dL in a nonstressed, ambulatory subject supports the diagnosis of Diabetes Mellitus. PERFORMED BY: [place] [address] PATHOLOGIST EQUIPMENT ENGINEER CLEVE CANDELARIA M.D. Performed By: #### T SH3, [id number] #### [place] [address] [place] #### METH #### [facility] , Drug Screen,Urineon 01-19-20 Amphetamine Screen,Urine Negative Normal Negative [facility] Comment on above: Order Comment: Comme nt stat when patient gets to prep Performed By: #### T SH3, [id number] #### [facility] [address] [place] [address] [place] #### METH #### [facility] , Barbiturate Screen,Urine Negative Normal Negative [facility] Comment on above: Order Comment: Comme nt stat when patient gets to prep Performed By: #### T SH3, [id number] #### [place] [address] [place] #### METH #### [facility] , Benzodiazepines Screen,Urine Negative Normal Negative [facility] Comment on above: Order Comment: Comme nt stat when patient gets to prep Performed By: #### T SH3, [id number] #### [place] [address] [place] #### METH #### [facility] , Cannabinoid Screen,Urine Positive High Negative [facility] Comment on above: Order Comment: Comme nt stat when patient gets to prep Result Comment: Thes e are unconfirmed results and should not be used for legal purposes. Drug Cut-Off Concentration: AMPH 1000 ng/mL ZE 200 ng/mL DUANE 200 ng/mL COCM 300 ng/mL OP 300 ng/mL PCP 25 ng/mL THC 20 ng/mL PERFORMED BY: [place] [address] PATHOLOGIST EQUIPMENT ENGINEER CLEVE CANDELARIA M.D. Performed By: #### T SH3, [id number] #### [address] #### METH #### [facility] , Cocaine Screen,Urine Negative Normal Negative [facility] Comment on above: Order Comment: Comme nt stat when patient gets to prep Performed By: #### T SH3, [id number] #### [place] [address] [place] #### METH #### [facility] , Opiate Screen,Urine Negative Normal Negative [facility] Comment on above: Order Comment: Comme nt stat when patient gets to prep Performed By: #### T SH3, [id number] #### [place] [address] [place] #### METH #### [facility] , Phencyclidine Screen,Urine Negative Normal Negative [facility] Comment on above: Order Comment: Comme nt stat when patient gets to prep Performed By: #### T SH3, [id number] #### [address] #### METH #### [facility] , Glucose Poct Glucometerson 0 01-19-2024 Commemt1 Glu2: Cleaned Meter Normal [facility] Comment on above: Result Comment: PERF ORMED BY: [place] [address] PATHOLOGIST EQUIPMENT ENGINEER CLEVE CANDELARIA M.D. Performed By: #### G LULS #### Point of Care testing , Glucose [Mass/Vol] 162 mg/dL Normal [facility] Comment on above: Result Comment: Rarden om Glucose Reference Range is dependent on time and content of last meal. Glucose of more than 200 mg/dL in a nonstressed, ambulatory subject supports the diagnosis of Diabetes Mellitus. Performed By: #### G LULS #### Point of Care testing , Commemt1 Glu2: Cleaned Meter Normal [facility] Comment on above: Result Comment: PERF ORMED BY: [place] [address] PATHOLOGIST EQUIPMENT ENGINEER CLEVE CANDELARIA M.D. Performed By: #### T SH3, [id number] #### [address] #### METH #### [facility] , Glucose [Mass/Vol] 250 mg/dL Normal [facility] Comment on above: Result Comment: Rarden om Glucose Reference Range is dependent on time and content of last meal. Glucose of more than 200 mg/dL in a nonstressed, ambulatory subject supports the diagnosis of Diabetes Mellitus. Performed By: #### T SH3, [id number] #### [address] #### METH #### [facility] , No Panel InformationOrdered By: Yogesh Becker on 01-19-2024 Bedside Glucose Comment Glu2: cleaned meter [facility] Opiates [Presence] in Urine by Screen methodOrdered By: Giuseppe Desouza on 01-19-2024 Opiates Screen Ql (U) Negative Negative [facility] Phencyclidine Screen Ql (U)O rdered By: Giuseppe Desouza on 01-19-2024 Phencyclidine Ql (U) Negative Negative [facility] Automated basophil %Ordered By: Yogesh Becker on 01-12-2024 Basophils/100 WBC (Bld) 0.9 % Normal . [facility] Comment on above: Performed By: #### C BC, BMP #### [address] Automated basophil countOrde red By: Yogesh Becker on 01-12-2024 Basophils (Bld) [#/Vol] 0.1 10*3/uL Normal 0.0-0.2 [facility] Comment on above: Result Comment: PERF ORMED BY: [place] [address] PATHOLOGIST EQUIPMENT ENGINEER CLEVE CANDELARIA M.D. Performed By: #### C BC, BMP #### [address] Automated blood monocyte cou ntOrdered By: Yogesh Beckre on 01-12-2024 Monocytes (Bld) [#/Vol] 0.4 10*3/uL Normal 0.0-0.8 [facility] Comment on above: Performed By: #### C BC, BMP #### [address] Automated eosinophil %Ordere d By: Yogesh Becker on 01-12-2024 Eosinophils/100 WBC (Bld) 3.9 % Normal . [facility] Comment on above: Performed By: #### C BC, BMP #### [address] Automated eosinophil countOr dered By: Yogesh Becker on 01-12-2024 Eosinophils (Bld) [#/Vol] 0.3 10*3/uL Normal 0.0-0.45 [facility] Comment on above: Performed By: #### C BC, BMP #### [address] Automated monocyte %Ordered By: Yogesh Becker on 01-12-2024 Monocytes/100 WBC (Bld) 5.2 % Normal . [facility] Comment on above: Performed By: #### C BC, BMP #### [address] Automated neutrophil %Ordere d By: Yogesh Becker on 01-12-2024 Neutrophils/100 WBC (Bld) 73.3 % Normal . [facility] Comment on above: Performed By: #### C BC, BMP #### [address] Basic Metabolic Panelon 12-25 GFR/1.73 sq M.predicted MDRD (S/P/Bld) [Vol rate/Area] mL/min/{1.73_m2} Normal [facility] Comment on above: Performed By: #### C BC, BMP #### [address] Calcium [Mass/volume] in Ser um or PlasmaOrdered By: Yogesh Becker on 01-12-2024 Calcium [Mass/Vol] 9.3 mg/dL Normal 8.6-10.3 [facility] Comment on above: Result Comment: PERF ORMED BY: [place] [address] PATHOLOGIST EQUIPMENT ENGINEER CLEVE CANDELARIA M.D. Performed By: #### C BC, BMP #### [place] [address] [place] Carbon dioxide, total [Moles /volume] in Serum or PlasmaOrdered By: Yogesh Becker on 01-12-2024 CO2 [Moles/Vol] 33.8 mmol/L High 21.0-31.0 [facility] Comment on above: Performed By: #### C BC, BMP #### [place] [address] [place] Chloride [Moles/volume] in S raffi or PlasmaOrdered By: Yogesh Becker on 01-12-2024 Chloride [Moles/Vol] 98 mmol/L Normal 98-107 [facility] Comment on above: Performed By: #### C BC, BMP #### [address] Complete Blood Count Auto Di ffon 01-12-2024 Mean Corpuscular HGB Conc 33.1 g/dL Normal 32.5-35.6 [facility] Comment on above: Performed By: #### C BC, BMP #### [address] NRBC% 0.1 /100{WBC} Normal 0-0.5 [facility] Comment on above: Performed By: #### C BC, BMP #### [address] Creatinine [Mass/volume] in Serum or PlasmaOrdered By: Yogesh Becker on 01-12-2024 Creatinine [Mass/Vol] 0.82 mg/dL Normal 0.70-1.30 [facility] Comment on above: Performed By: #### C BC, BMP #### [address] Erythrocyte distribution wid th [Ratio] by Automated countOrdered By: Yogesh Becker on 01-12-2024 Erythrocyte distribution width (RBC) [Ratio] 14.2 % Normal 12.0-14.8 [facility] Comment on above: Performed By: #### C BC, BMP #### [place] [address] [place] Erythrocytes [#/volume] in B lood by Automated countOrdered By: Yogesh Becker on 01-12-2024 RBC (Bld) [#/Vol] 5.21 10*6/uL Normal 3.90-5.60 [facility] Comment on above: Performed By: #### C BC, BMP #### [place] [address] [place] Glucose [Mass/volume] in Ser um or PlasmaOrdered By: Yogesh Becker on 01-12-2024 Glucose [Mass/Vol] 281 mg/dL High 70-100 [facility] Comment on above: ADA recommended refe rence rangeRandom Glucose Reference Range is dependent on time and content of last meal. Glucose of more than 200 mg/dL in a nonstressed, ambulatory subject supports the diagnosis of Diabetes Mellitus. Result Comment: Rarden om Glucose Reference Range is dependent on time and content of last meal. Glucose of more than 200 mg/dL in a nonstressed, ambulatory subject supports the diagnosis of Diabetes Mellitus. ADA recommended reference range Performed By: #### C AMAIRANI, BMP #### [address] Hematocrit [Volume Fraction] of Blood by Automated countOrdered By: Yogesh Becker on 01-12-2024 Hematocrit (Bld) [Volume fraction] 50.5 % High 38.8-50.0 [facility] Comment on above: Performed By: #### C AMAIRANI, BMP #### [address] Hemoglobin [Mass/volume] in BloodOrdered By: Yogesh Becker on 01-12-2024 Hemoglobin (Bld) [Mass/Vol] 16.7 g/dL Normal 13.0-17.0 [facility] Comment on above: Performed By: #### C AMAIRANI, BMP #### [place] [address] [place] Leukocytes [#/volume] correc charanjit for nucleated erythrocytes in Blood by Automated counOrdered By: Yoegsh Becker on 01-12-2024 WBC corrected for nucl RBC Auto (Bld) [#/Vol] 8.5 10*3/uL 4.1-10.5 [facility] Leukocytes [#/volume] in Blo od by Automated countOrdered By: Yogesh Becker on 01-12-2024 WBC (Bld) [#/Vol] 8.5 10*3/uL Normal 4.1-10.5 [facility] Comment on above: Performed By: #### C AMAIRANI, BMP #### [address] [address] [place] Lymphocytes [#/volume] in Bl ood by Automated countOrdered By: Yogesh Becker on 01-12-2024 Lymphocytes (Bld) [#/Vol] 1.4 10*3/uL Normal 1.00-4.8 [facility] Comment on above: Performed By: #### C BC, BMP #### [facility] [address] [place] [address] Lymphocytes/100 leukocytes i n Blood by Automated countOrdered By: Yogesh Becker on 01-12-2024 Lymphocytes/100 WBC (Bld) 16.7 % Normal . [facility] Comment on above: Performed By: #### C BC, BMP #### [address] MCH [Entitic mass] by Automa charanjit countOrdered By: Yogesh Becker on 01-12-2024 MCH (RBC) [Entitic mass] 32.1 pg Normal 27.5-35.2 [facility] Comment on above: Performed By: #### C BC, BMP #### [address] MCHC Auto (RBC) [Mass/Vol]Or dered By: Yogesh Becker on 01-12-2024 MCHC (RBC) [Mass/Vol] 33.1 g/dL 32.5-35.6 [facility] MCV [Entitic volume] by Auto mated countOrdered By: Yogesh Becker on 01-12-2024 MCV (RBC) [Entitic vol] 96.9 fL Normal 83.5-101 [facility] Comment on above: Performed By: #### C BC, BMP #### [facility] [address] [place] [address] Neutrophils [#/volume] in Bl ood by Automated countOrdered By: Yogesh Becker on 01-12-2024 Neutrophils (Bld) [#/Vol] 6.2 10*3/uL Normal 1.8-7.7 [facility] Comment on above: Performed By: #### C BC, BMP #### [address] No Panel InformationOrdered By: Yogesh Becker on 01-12-2024 Estimated GFR (CKD-EPI) > 60.0 mL/Min [facility] Creatinine Clearance (Chem N/A [facility] Nucleated erythrocytes [Pres ence] in Blood by Automated countOrdered By: Yogesh Becker on 01-12-2024 Nucleated RBC Auto Ql (Bld) 0.1 /100{WBC} 0-0.5 [facility] Platelet mean volume [Entiti c volume] in Blood by Automated countOrdered By: Yogesh Becker on 01-12-2024 Platelet mean volume (Bld) [Entitic vol] 8.6 fL Normal 6.6-10.1 [facility] Comment on above: Performed By: #### C BC, BMP #### [address] Platelets [#/volume] in Bloo d by Automated countOrdered By: Yogesh Becker on 01-12-2024 Platelets (Bld) [#/Vol] 186 10*3/uL Normal 150-450 [facility] Comment on above: Performed By: #### C BC, BMP #### [place] [address] [place] Potassium [Moles/volume] in Serum or PlasmaOrdered By: Yogesh Becker on 01-12-2024 Potassium [Moles/Vol] 5.0 mmol/L Normal 3.5-5.1 [facility] Comment on above: Performed By: #### C BC, BMP #### [address] Serum or plasma anion gap de terminationOrdered By: Yogesh Becker on 01-12-2024 Anion gap [Moles/Vol] 9.2 mmol/L Normal 6.0-15.0 [facility] Comment on above: Performed By: #### C BC, BMP #### [place] [address] [place] Sodium [Moles/volume] in Ser um or PlasmaOrdered By: Yogesh Becker on 01-12-2024 Sodium [Moles/Vol] 136 mmol/L Normal 136-145 [facility] Comment on above: Performed By: #### C BC, BMP #### [address] Urea nitrogen [Mass/volume] in Serum or PlasmaOrdered By: Yogesh Becker on 01-12-2024 Urea nitrogen [Mass/Vol] 24 mg/dL Normal 7-25 [facility] Comment on above: Performed By: #### C BC, BMP #### [facility] [address] [place] [address] MR cervical spine wo conon 0 12-16-2023 MR cervical spine wo con [facility] [address] [place] [address] MRI Report Signed Patient: Koko Meier MR#: [id number] : 1960 Acct:[id number] Age/Sex: 63 / M ADM Date: 12/16/23 Loc: [facility] Room: Type: [facility] Attending Dr: Maryann Rubalcava MD Copies [...] Bruce Ortiz M.D.12/16/2023 3:15 PM Dictation Location: [place] [address] Transcribed By: [facility] 12/16/23 1515 Dictated By: Bruce Ortiz II, MD 12/16/23 1500 Signed By: 12/16/23 1515 Normal [facility] CT head/brain wo conon 01-30 -2024 CT head/brain wo con [facility] [address] [place] [address] CT Scan Report Signed Patient: Koko Meier MR#: [id number] : 1960 Acct:[id number] Age/Sex: 62 / M ADM Date: 11/25/23 Loc: CT Room: Type: [facility] Attending Dr: Oliver Kerr MD Copies [...] Koko Hernandez M.D.11/25/2023 12:02 PM Dictation Location: [place] [address] Transcribed By: [facility] 11/25/23 1202 Dictated By: Koko Hernandez DO 11/25/23 1201 Signed By: 11/25/23 1202 Normal [facility] Cholesterol [Mass/volume] in Serum or PlasmaOrdered By: Josh Melvin on 11-24-2023 Cholesterol [Mass/Vol] 168 mg/dL Normal 140-200 [facility] Comment on above: Chol less than 200 m g/dl low riskChol 201-239 mg/dl borderline riskChol 240 mg/dl and greater high risk Result Comment: Chol less than 200 mg/dl low risk Chol 201-239 mg/dl borderline risk Chol 240 mg/dl and greater high risk Performed By: #### C BC, BMP #### [facility] [address] [place] [address] [place] Cholesterol in LDL Calc [Mas s/Vol]Ordered By: Josh Melvin on 11-24-2023 Cholesterol in LDL [Mass/Vol] 70 mg/dL 0-100 [facility] Comment on above: LDL ATP III CLASSIFI CATIONLDL less than 100 mg/dL OptimalLDL 100-129 mg/dL Near or above optimalLDL 130-159 mg/dL Borderline highLDL 160-189 mg/dL HighLDL greater than 189 mg/dL Very high Cholesterol in VLDL Calc [Ma ss/Vol]Ordered By: Josh Melvin on 11-24-2023 Cholesterol in VLDL [Mass/Vol] 43 mg/dL [facility] Folate [Mass/volume] in Seru m or PlasmaOrdered By: Oliver Kerr on 11-24-2023 Folate [Mass/Vol] 14.9 ng/mL >5.9 [facility] Comment on above: Folate reference ran ge: >5.9 ng/mlThe WHO technical consultation on folate and vitamin [id number] has determined that folate concentrations lessthan 4 ng/ml are considered deficient. Lipid Panelon 11-24-2023 LDL Cholesterol,Calculate d 70 mg/dL Normal 0-100 [facility] Comment on above: Result Comment: LDL ATP III CLASSIFICATION LDL less than 100 mg/dL Optimal LDL 100-129 mg/dL Near or above optimal LDL 130-159 mg/dL Borderline high LDL 160-189 mg/dL High LDL greater than 189 mg/dL Very high Performed By: #### C BC, BMP #### [facility] [address] [place] [address] [place] Triglyceride w/Reflex 218 mg/dL High 0-149 [facility] Comment on above: Result Comment: TRIG ATP III CLASSIFICATION TRIG less than 150 mg/dL Normal TRIG 150-199 mg/dL Borderline high TRIG 200-500 mg/dL High TRIG greater than 500 mg/dL Very high Standard traceable to the Center for Disease Conrtrol and Prevention (CDC) test method. Performed By: #### C BC, BMP #### [facility] [address] [place] [address] [facility] VLDL CHOLESTEROL 43 mg/dL Normal [facility] Comment on above: Performed By: #### C BC, BMP #### [address] Methylmalonic Acidon 024 Methylmalonic Acid 169 Normal 0-378 [facility] Comment on above: Result Comment: This test was developed and its performance characteristics determined by [facility]. It has not been cleared or approved by the Food and Drug Administration. Performed at: [facility] [id number] Tree Trimmer: Caroline Romo MD, Phone: [phone] PERFORMED BY: [place] [address] PATHOLOGIST EQUIPMENT ENGINEER CLEVE CANDELARIA M.D. Performed By: #### T SH3, [id number] #### [address] #### METH #### [facility] , PSA Screen (Yearly Only)on 0 11-24-2023 PSA Screen (Yearly Only) 1.380 ng/mL Normal 0.000-4.000 [facility] Comment on above: Order Comment: Is pa tient <50 yrs? Medicare does not pay <50.: Y What is the date of the last PSA Screen?: 01/31/22 Is Medicare the insurance?: U Did you verify eligibility (Dx Time) check TestViewGp: YES TO ALL Result Comment: Viktoria vargas tumor marker results determined by assays using different manufacturers or methods may not be comparable. [facility] hi lift operator and method: [employer] DXI, CHEMILUMINESCENT IMMUNOASSAY. PERFORMED BY: [place] [address] PATHOLOGIST EQUIPMENT ENGINEER CLEVE CANDELARIA M.D. Performed By: #### C BC, BMP #### [place] [id number] [facility] Prostate specific Ag [Mass/v olume] in Serum or PlasmaOrdered By: Josh Melvin on 11-24-2023 Prostate specific Ag [Mass/Vol] 1.380 ng/mL 0.000-4.000 [facility] Comment on above: Serial tumor marker results determined by assays using different manufacturers or methods may not be comparable.[facility] hi lift operator and method:WENDY eBayEL DXI, CHEMILUMINESCENT IMMUNOASSAY. Serum or plasma high density lipoprotein (HDL) cholesterol measurementOrdered By: Josh Melvin on 11-24-2023 Cholesterol in HDL [Mass/Vol] 54 mg/dL Normal 23-92 [facility] Comment on above: HDL CHOL ATP-III CLA SSIFICATION Cardiovascular RiskHDL > or equal to 60 mg/dL LOWHDL < 40 mg/dL HIGH Result Comment: HDL CHOL ATP-III CLASSIFICATION Cardiovascular Risk HDL > or equal to 60 mg/dL LOW HDL < 40 mg/dL HIGH Performed By: #### C AMAIRANI, BMP #### [address] Serum or plasma methylmalona te measurement (moles/volume)Ordered By: Oliver Kerr on 11-24-2023 Methylmalonate [Moles/Vol] 169 nmol/L 0-378 [facility] Comment on above: This test was develo ped and its performance characteristicsdetermined by [employer]. It has not been cleared orapproved by the Food and Drug Administration.Performed at: [address] [id number] Director: Caroline Romo MD, Phone: [phone] Serum or plasma total choles terol/high density lipoprotein (HDL) cholesterol mass ratOrdered By: Josh Melvin on 11-24-2023 Cholesterol.total/Cho lesterol in HDL [Mass ratio] 3.1 {ratio} Normal <5.0 [facility] Comment on above: Result Comment: PERF ORMED BY: [place] [address] PATHOLOGIST EQUIPMENT ENGINEER CLEVE CANDELARIA M.D. Performed By: #### C AMAIRANI, BMP #### [address] Thyrotropin [Units/volume] i n Serum or PlasmaOrdered By: Oliver Kerr on 11-24-2023 TSH Qn 2.24 m[IU]/L Normal 0.45-5.33 [facility] Comment on above: Result Comment: PERF ORMED BY: [place] [address] PATHOLOGIST EQUIPMENT ENGINEER CLEVE CANDELARIA M.D. Performed By: #### T SH3, [id number] #### [facility] [address] [place] [address] [place] #### METH #### [facility] , Triglyceride [Mass/volume] i n Serum or PlasmaOrdered By: Josh Melvin on 11-24-2023 Triglyceride [Mass/Vol] 218 mg/dL 0-149 [facility] Comment on above: TRIG ATP III CLASSIF ICATIONTRIG less than 150 mg/dL NormalTRIG 150-199 mg/dL Borderline highTRIG 200-500 mg/dL High TRIG greater than 500 mg/dL Very highStandard traceable to the Center for Disease Conrtrol and Prevention (CDC) test method. Vit. B12/Folate Profileon Folate 14.9 ng/mL Normal >5.9 [facility] Comment on above: Result Comment: Lin te reference range: >5.9 ng/ml The WHO technical consultation on folate and vitamin b12 deficiencies has determined that folate concentrations less than 4 ng/ml are considered deficient. Performed By: #### T SH3, [id number] #### [facility] [address] [place] [address] [place] #### METH #### [facility] , Vitamin B12 ser/plasOrdered By: Oliver Kerr on 11-24-2023 Cobalamin (Vitamin B12) [Mass/Vol] 365 pg/mL Normal 180-914 [facility] Comment on above: Performed By: #### T SH3, [id number] #### [facility] [address] [place] [address] [place] #### METH #### [facility] , Amphetamine Screen Ql (U)Ord ered By: Kenroy Domínguez on 11-03-2023 Amphetamines Ql (U) Negative Negative [facility] Barbiturates [Presence] in U rine by Screen methodOrdered By: Kenroy Domínguez on 11-03-2023 Barbiturates Screen Ql (U) Negative Negative [facility] Benzodiazepines Screen Ql (U )Ordered By: Kenroy Domínguez on 11-03-2023 Benzodiazepines Ql (U) Negative Negative [facility] Benzoylecgonine [Presence] i n Urine by Screen methodOrdered By: Kenroy Domínguez on 11-03-2023 Benzoylecgonine Screen Ql (U) Negative Negative [facility] Cannabinoids [Presence] in U rine by Screen methodOrdered By: Kenroy Domínguez on 11-03-2023 Cannabinoids Screen Ql (U) Positive Negative [facility] Comment on above: These are unconfirme d results and should not be used for legal purposes. Drug Cut-Off Concentration: AMPH 1000 ng/mL ZE 200 ng/mL DUANE 200 ng/mL COCM 300 ng/mL OP 300 ng/mL PCP 25 ng/mL THC 20 ng/mL Capillary blood glucose ezra urement by glucometer (mass/volume)Ordered By: Yogesh Becker on 11-03-2023 Glucose [Mass/Vol] 185 mg/dL Normal [facility] Comment on above: Random Glucose Refer ence Range is dependent on time and content of last meal. Glucose of more than 200 mg/dL in a nonstressed, ambulatory subject supports the diagnosis of Diabetes Mellitus. Result Comment: [facility] Glucose Reference Range is dependent on time and content of last meal. Glucose of more than 200 mg/dL in a nonstressed, ambulatory subject supports the diagnosis of Diabetes Mellitus. PERFORMED BY: [place] [address] PATHOLOGIST EQUIPMENT ENGINEER CLEVE CANDELARIA M.D. Performed By: #### C BC, BMP #### [facility] [address] [place] [address] [place] Drug Screen,Urineon 11-03-19 24 Amphetamine Screen,Urine Negative Normal Negative [facility] Comment on above: Performed By: #### C BC, BMP #### [facility] [address] [place] [address] [place] Barbiturate Screen,Urine Negative Normal Negative [facility] Comment on above: Performed By: #### C BC, BMP #### [address] Benzodiazepines Screen,Urine Negative Normal Negative [facility] Comment on above: Performed By: #### C BC, BMP #### [address] Cannabinoid Screen,Urine Positive High Negative [facility] Comment on above: Result Comment: Thes e are unconfirmed results and should not be used for legal purposes. Drug Cut-Off Concentration: AMPH 1000 ng/mL ZE 200 ng/mL DUANE 200 ng/mL COCM 300 ng/mL OP 300 ng/mL PCP 25 ng/mL THC 20 ng/mL PERFORMED BY: [place] [address] PATHOLOGIST EQUIPMENT ENGINEER CLEVE CANDELARIA M.D. Performed By: #### C BC, BMP #### [address] Cocaine Screen,Urine Negative Normal Negative [facility] Comment on above: Performed By: #### C BC, BMP #### [address] Opiate Screen,Urine Negative Normal Negative [facility] Comment on above: Performed By: #### C BC, BMP #### [address] Phencyclidine Screen,Urine Negative Normal Negative [facility] Comment on above: Performed By: #### C BC, BMP #### [address] Glucose Poct Glucometerson 0 11-03-2023 Glucose [Mass/Vol] 180 mg/dL Normal [facility] Comment on above: Result Comment: [facility] Glucose Reference Range is dependent on time and content of last meal. Glucose of more than 200 mg/dL in a nonstressed, ambulatory subject supports the diagnosis of Diabetes Mellitus. PERFORMED BY: [place] [address] PATHOLOGIST EQUIPMENT ENGINEER CLEVE CANDELARIA M.D. Performed By: #### G LULS #### Point of Care testing , Opiates [Presence] in Urine by Screen methodOrdered By: Kenroy Sang on 11-03-2023 Opiates Screen Ql (U) Negative Negative [facility] Phencyclidine Screen Ql (U)O rdered By: Kenroy Wallerholder on 11-03-2023 Phencyclidine Ql (U) Negative Negative [facility] Automated basophil %Ordered By: Yogesh Becker on 10-23-2023 Basophils/100 WBC (Bld) 0.8 % Normal . [facility] Comment on above: Performed By: #### B MP, CBC #### [address] Automated basophil countOrde red By: Yogesh Becker on 10-23-2023 Basophils (Bld) [#/Vol] 0.0 10*3/uL Normal 0.0-0.2 [facility] Comment on above: Result Comment: PERF ORMED BY: [place] [address] PATHOLOGIST EQUIPMENT ENGINEER CLEVE CANDELARIA M.D. Performed By: #### B MP, CBC #### [address] Automated blood monocyte cou ntOrdered By: Yogesh Becker on 10-23-2023 Monocytes (Bld) [#/Vol] 0.5 10*3/uL Normal 0.0-0.8 [facility] Comment on above: Performed By: #### B MP, CBC #### [address] Automated eosinophil %Ordere d By: Yogesh Becker on 10-23-2023 Eosinophils/100 WBC (Bld) 3.6 % Normal . [facility] Comment on above: Performed By: #### B MP, CBC #### [address] Automated eosinophil countOr dered By: Yogesh Becker on 10-23-2023 Eosinophils (Bld) [#/Vol] 0.2 10*3/uL Normal 0.0-0.45 [facility] Comment on above: Performed By: #### B MP, CBC #### [address] Automated monocyte %Ordered By: Yogesh Becker on 10-23-2023 Monocytes/100 WBC (Bld) 9.4 % Normal . [facility] Comment on above: Performed By: #### B MP, CBC #### [facility] [address] Automated neutrophil %Ordere d By: Yogesh Becker on 10-23-2023 Neutrophils/100 WBC (Bld) 59.4 % Normal . [facility] Comment on above: Performed By: #### B MP, CBC #### [address] Basic Metabolic Panelon 09-27 GFR/1.73 sq M.predicted MDRD (S/P/Bld) [Vol rate/Area] mL/min/{1.73_m2} Normal [facility] Comment on above: Performed By: #### C BC, BMP #### [address] Calcium [Mass/volume] in Ser um or PlasmaOrdered By: Yogesh Becker on 10-23-2023 Calcium [Mass/Vol] 8.8 mg/dL Normal 8.6-10.3 [facility] Comment on above: Result Comment: PERF ORMED BY: [place] [address] PATHOLOGIST EQUIPMENT ENGINEER CLEVE CANDELARIA M.D. Performed By: #### C BC, BMP #### [address] Carbon dioxide, total [Moles /volume] in Serum or PlasmaOrdered By: Yogesh Becker on 10-23-2023 CO2 [Moles/Vol] 33.8 mmol/L High 21.0-31.0 [facility] Comment on above: Performed By: #### C BC, BMP #### [place] [address] [place] Chloride [Moles/volume] in S raffi or PlasmaOrdered By: Yogesh Becker on 10-23-2023 Chloride [Moles/Vol] 100 mmol/L Normal 98-107 [facility] Comment on above: Performed By: #### C BC, BMP #### [address] Complete Blood Count Auto Di ffon 10-23-2023 Mean Corpuscular HGB Conc 33.8 g/dL Normal 32.5-35.6 [facility] Comment on above: Performed By: #### B MP, CBC #### [address] NRBC% 0.1 /100{WBC} Normal 0-0.5 [facility] Comment on above: Performed By: #### B MP, CBC #### [address] Creatinine [Mass/volume] in Serum or PlasmaOrdered By: Yogesh Becker on 10-23-2023 Creatinine [Mass/Vol] 0.71 mg/dL Normal 0.70-1.30 [facility] Comment on above: Performed By: #### C BC, BMP #### [address] Erythrocyte distribution wid th [Ratio] by Automated countOrdered By: Yogesh Becker on 10-23-2023 Erythrocyte distribution width (RBC) [Ratio] 14.3 % Normal 12.0-14.8 [facility] Comment on above: Performed By: #### B MP, CBC #### [address] Erythrocytes [#/volume] in B lood by Automated countOrdered By: Yogesh Becker on 10-23-2023 RBC (Bld) [#/Vol] 5.01 10*6/uL Normal 3.90-5.60 [facility] Comment on above: Performed By: #### B MP, CBC #### [address] Glucose [Mass/volume] in Ser um or PlasmaOrdered By: Yogesh Becker on 10-23-2023 Glucose [Mass/Vol] 105 mg/dL High 70-100 [facility] Comment on above: ADA recommended refe rence rangeRandom Glucose Reference Range is dependent on time and content of last meal. Glucose of more than 200 mg/dL in a nonstressed, ambulatory subject supports the diagnosis of Diabetes Mellitus. Result Comment: [facility] Glucose Reference Range is dependent on time and content of last meal. Glucose of more than 200 mg/dL in a nonstressed, ambulatory subject supports the diagnosis of Diabetes Mellitus. ADA recommended reference range Performed By: #### C BC, BMP #### [address] Hematocrit [Volume Fraction] of Blood by Automated countOrdered By: Yogesh Becker on 10-23-2023 Hematocrit (Bld) [Volume fraction] 48.1 % Normal 38.8-50.0 [facility] Comment on above: Performed By: #### B MP, CBC #### [address] Hemoglobin [Mass/volume] in BloodOrdered By: Yogehs Becker on 10-23-2023 Hemoglobin (Bld) [Mass/Vol] 16.2 g/dL Normal 13.0-17.0 [facility] Comment on above: Performed By: #### B MP, CBC #### [address] Leukocytes [#/volume] correc charanjit for nucleated erythrocytes in Blood by Automated counOrdered By: Yogesh Becker on 10-23-2023 WBC corrected for nucl RBC Auto (Bld) [#/Vol] 4.9 10*3/uL 4.1-10.5 [facility] Leukocytes [#/volume] in Blo od by Automated countOrdered By: Yogesh Becker on 10-23-2023 WBC (Bld) [#/Vol] 4.9 10*3/uL Normal 4.1-10.5 [facility] Comment on above: Performed By: #### B MP, CBC #### [address] Lymphocytes [#/volume] in Bl ood by Automated countOrdered By: Yogesh Becker on 10-23-2023 Lymphocytes (Bld) [#/Vol] 1.3 10*3/uL Normal 1.00-4.8 [facility] Comment on above: Performed By: #### B MP, CBC #### [place] [address] [place] Lymphocytes/100 leukocytes i n Blood by Automated countOrdered By: Yogesh Becker on 10-23-2023 Lymphocytes/100 WBC (Bld) 26.8 % Normal . [facility] Comment on above: Performed By: #### B MP, CBC #### [address] MCH [Entitic mass] by Automa charanjit countOrdered By: Yogesh Becker on 10-23-2023 MCH (RBC) [Entitic mass] 32.4 pg Normal 27.5-35.2 [facility] Comment on above: Performed By: #### B MP, CBC #### [address] MCHC Auto (RBC) [Mass/Vol]Or dered By: Yogesh Becker on 10-23-2023 MCHC (RBC) [Mass/Vol] 33.8 g/dL 32.5-35.6 [facility] MCV [Entitic volume] by Auto mated countOrdered By: Yogesh Becker on 10-23-2023 MCV (RBC) [Entitic vol] 96.0 fL Normal 83.5-101 [facility] Comment on above: Performed By: #### B MP, CBC #### [place] [address] [place] Neutrophils [#/volume] in Bl ood by Automated countOrdered By: Yogesh Becker on 10-23-2023 Neutrophils (Bld) [#/Vol] 2.9 10*3/uL Normal 1.8-7.7 [facility] Comment on above: Performed By: #### B MP, CBC #### [address] No Panel InformationOrdered By: Yogesh Becker on 10-23-2023 Estimated GFR (CKD-EPI) > 60.0 mL/Min [facility] Creatinine Clearance (Chem N/A [facility] Nucleated erythrocytes [Pres ence] in Blood by Automated countOrdered By: Yogesh Becker on 10-23-2023 Nucleated RBC Auto Ql (Bld) 0.1 /100{WBC} 0-0.5 [facility] Platelet mean volume [Entiti c volume] in Blood by Automated countOrdered By: Yogesh Becker on 10-23-2023 Platelet mean volume (Bld) [Entitic vol] 8.4 fL Normal 6.6-10.1 [facility] Comment on above: Performed By: #### B MP, CBC #### [address] Platelets [#/volume] in Bloo d by Automated countOrdered By: Yogesh Becker on 10-23-2023 Platelets (Bld) [#/Vol] 173 10*3/uL Normal 150-450 [facility] Comment on above: Performed By: #### B MP, CBC #### [address] Potassium [Moles/volume] in Serum or PlasmaOrdered By: Yogesh Becker on 10-23-2023 Potassium [Moles/Vol] 4.5 mmol/L Normal 3.5-5.1 [facility] Comment on above: Performed By: #### C BC, BMP #### [address] Serum or plasma anion gap de terminationOrdered By: Yogesh Becker on 10-23-2023 Anion gap [Moles/Vol] 9.7 mmol/L Normal 6.0-15.0 [facility] Comment on above: Performed By: #### C BC, BMP #### [place] [address] [place] Sodium [Moles/volume] in Ser um or PlasmaOrdered By: Yogesh Becker on 10-23-2023 Sodium [Moles/Vol] 139 mmol/L Normal 136-145 [facility] Comment on above: Performed By: #### C AMAIRANI, ADITI #### [facility] [address] Urea nitrogen [Mass/volume] in Serum or PlasmaOrdered By: Yogesh Becker on 10-23-2023 Urea nitrogen [Mass/Vol] 18 mg/dL Normal 7-25 [facility] Comment on above: Performed By: #### C AMAIRANI, BMP #### [facility] [address] Amphetamine Screen Ql (U)Ord ered By: Giuseppe Desouza on 10-02-2023 Amphetamines Ql (U) Negative Negative [facility] Barbiturates [Presence] in U rine by Screen methodOrdered By: Giuseppe Desouza on 10-02-2023 Barbiturates Screen Ql (U) Negative Negative [facility] Benzodiazepines Screen Ql (U )Ordered By: Giuseppe Desouza on 10-02-2023 Benzodiazepines Ql (U) Positive Negative [facility] Benzoylecgonine [Presence] i n Urine by Screen methodOrdered By: Giuseppe Desouza on 10-02-2023 Benzoylecgonine Screen Ql (U) Positive Negative [facility] Cannabinoids [Presence] in U rine by Screen methodOrdered By: Giuseppe Desouza on 10-02-2023 Cannabinoids Screen Ql (U) Positive Negative [facility] Comment on above: These are unconfirme d results and should not be used for legal purposes. Drug Cut-Off Concentration: AMPH 1000 ng/mL ZE 200 ng/mL DUANE 200 ng/mL COCM 300 ng/mL OP 300 ng/mL PCP 25 ng/mL THC 20 ng/mL Capillary blood glucose ezra urement by glucometer (mass/volume)Ordered By: Yogesh Becker on 10-02-2023 Glucose [Mass/Vol] 290 mg/dL Normal [facility] Comment on above: Random Glucose Refer ence Range is dependent on time and content of last meal. Glucose of more than 200 mg/dL in a nonstressed, ambulatory subject supports the diagnosis of Diabetes Mellitus. Result Comment: [facility] Glucose Reference Range is dependent on time and content of last meal. Glucose of more than 200 mg/dL in a nonstressed, ambulatory subject supports the diagnosis of Diabetes Mellitus. Performed By: #### C BC, BMP #### [address] Drug Screen,Urineon 10-02-20 23 Amphetamine Screen,Urine Negative Normal Negative [facility] Comment on above: Performed By: #### T SH3, [id number] #### [address] #### METH #### [facility] , Barbiturate Screen,Urine Negative Normal Negative [facility] Comment on above: Performed By: #### T SH3, [id number] #### [address] #### METH #### [facility] , Benzodiazepines Screen,Urine Positive High Negative [facility] Comment on above: Performed By: #### T SH3, [id number] #### [address] #### METH #### [facility] , Cannabinoid Screen,Urine Positive High Negative [facility] Comment on above: Result Comment: Thes e are unconfirmed results and should not be used for legal purposes. Drug Cut-Off Concentration: AMPH 1000 ng/mL ZE 200 ng/mL DUANE 200 ng/mL COCM 300 ng/mL OP 300 ng/mL PCP 25 ng/mL THC 20 ng/mL PERFORMED BY: [place] [address] PATHOLOGIST EQUIPMENT ENGINEER CLEVE CANDELARIA M.D. Performed By: #### T SH3, [id number] #### [place] [address] [place] #### METH #### [facility] , Cocaine Screen,Urine Positive High Negative [facility] Comment on above: Performed By: #### T SH3, [id number] #### [facility] [address] [place] [address] [place] #### METH #### [facility] , Opiate Screen,Urine Negative Normal Negative [facility] Comment on above: Performed By: #### T SH3, [id number] #### [facility] [address] [place] [address] [place] #### METH #### [facility] , Phencyclidine Screen,Urine Negative Normal Negative [facility] Comment on above: Performed By: #### T SH3, [id number] #### [address] #### METH #### [facility] , Glucose Poct Glucometerson 1 12-03-2022 Commemt1 Glu2: Cleaned Meter Normal [facility] Comment on above: Result Comment: PERF ORMED BY: [place] [address] PATHOLOGIST EQUIPMENT ENGINEER CLEVE CANDELARIA M.D. Performed By: #### C BC, BMP #### [address] No Panel InformationOrdered By: Yogesh Becker on 10-02-2023 Bedside Glucose Comment Glu2: cleaned meter [facility] Opiates [Presence] in Urine by Screen methodOrdered By: Giuseppe Desouza on 10-02-2023 Opiates Screen Ql (U) Negative Negative [facility] Phencyclidine Screen Ql (U)O rdered By: Giuseppe Desouza on 10-02-2023 Phencyclidine Ql (U) Negative Negative [facility] POC Glucose Randomon 023 Glucose [Mass/Vol] 192 mg/dL High 70-99 [facility] Comment on above: Performed By: #### C [id number] #### [facility] [address] [place] [address] Glucose [Mass/Vol] 246 mg/dL High 70-99 [facility] Comment on above: Performed By: #### C [id number] #### [facility] [address] [place] [address] Automated basophil %Ordered By: Yogesh Becker on 09-23-2023 Basophils/100 WBC (Bld) 0.6 % Normal . [facility] Comment on above: Performed By: #### B MP, CBC #### [address] Automated basophil countOrde red By: Yogesh Becker on 09-23-2023 Basophils (Bld) [#/Vol] 0.1 10*3/uL Normal 0.0-0.2 [facility] Comment on above: Result Comment: PERF ORMED BY: [place] [address] PATHOLOGIST EQUIPMENT ENGINEER CLEVE CANDELARIA M.D. Performed By: #### B MP, CBC #### [address] Automated blood monocyte cou ntOrdered By: Yogesh Becker on 09-23-2023 Monocytes (Bld) [#/Vol] 0.6 10*3/uL Normal 0.0-0.8 [facility] Comment on above: Performed By: #### B MP, CBC #### [address] Automated eosinophil %Ordere d By: Yogesh Becker on 09-23-2023 Eosinophils/100 WBC (Bld) 0.1 % Normal . [facility] Comment on above: Performed By: #### B MP, CBC #### [address] Automated eosinophil countOr dered By: Yogesh Becker on 09-23-2023 Eosinophils (Bld) [#/Vol] 0.0 10*3/uL Normal 0.0-0.45 [facility] Comment on above: Performed By: #### B MP, CBC #### [place] [address] [place] Automated monocyte %Ordered By: Yogesh Becker on 09-23-2023 Monocytes/100 WBC (Bld) 4.6 % Normal . [facility] Comment on above: Performed By: #### B MP, CBC #### [address] Automated neutrophil %Ordere d By: Yogesh Becker on 09-23-2023 Neutrophils/100 WBC (Bld) 81.4 % Normal . [facility] Comment on above: Performed By: #### B MP, CBC #### [address] Basic Metabolic Panelon 08-28 GFR/1.73 sq M.predicted MDRD (S/P/Bld) [Vol rate/Area] mL/min/{1.73_m2} Normal [facility] Comment on above: Performed By: #### B MP, CBC #### [address] Calcium [Mass/volume] in Ser um or PlasmaOrdered By: Yogesh Becker on 09-23-2023 Calcium [Mass/Vol] 9.3 mg/dL Normal 8.6-10.3 [facility] Comment on above: Result Comment: PERF ORMED BY: [place] [address] PATHOLOGIST EQUIPMENT ENGINEER CLEVE CANDELARIA M.D. Performed By: #### B MP, CBC #### [address] Carbon dioxide, total [Moles /volume] in Serum or PlasmaOrdered By: Yogesh Becker on 09-23-2023 CO2 [Moles/Vol] 30.6 mmol/L Normal 21.0-31.0 [facility] Comment on above: Performed By: #### B MP, CBC #### [place] [address] [place] Chloride [Moles/volume] in S raffi or PlasmaOrdered By: Yogesh Becker on 09-23-2023 Chloride [Moles/Vol] 96 mmol/L Low 98-107 [facility] Comment on above: Performed By: #### B MP, CBC #### [address] Complete Blood Count Auto Di ffon 09-23-2023 Mean Corpuscular HGB Conc 33.4 g/dL Normal 32.5-35.6 [facility] Comment on above: Performed By: #### B MP, CBC #### [address] NRBC% 0.0 /100{WBC} Normal 0-0.5 [facility] Comment on above: Performed By: #### B MP, CBC #### [address] Creatinine [Mass/volume] in Serum or PlasmaOrdered By: Yogesh Becker on 09-23-2023 Creatinine [Mass/Vol] 1.01 mg/dL Normal 0.70-1.30 [facility] Comment on above: Performed By: #### B MP, CBC #### [address] ECG 12 lead ECGon 09-23-2023 ECG 12 lead ECG [facility] [place] [address] [place] [address] Electrocardiograph Report Signed Patient: Koko Meier MR#: [id number] : 1960 Acct:[id number] Age/Sex: 62 / M ADM Date: 09/23/23 Loc: Room: Type: [facility] Attending Dr: Yogesh Becker MD Ordering [...] axis shifted right Confirmed by JOSEY MATUTE [facility] ([id number] on 09/23/2023 10:29:43 PM Referred By: OLEGARIO BECKER Electronically Signed By:KIRSTIE CERVANTES MD [facility] Transcribed By: MUS Signed By Barron Cervantes MD 09/23/232228 Normal [facility] Erythrocyte distribution wid th [Ratio] by Automated countOrdered By: Yogesh Becker on 09-23-2023 Erythrocyte distribution width (RBC) [Ratio] 13.9 % Normal 12.0-14.8 [facility] Comment on above: Performed By: #### B MP, CBC #### [facility] [address] [place] [address] Erythrocytes [#/volume] in B lood by Automated countOrdered By: Yogesh Becker on 09-23-2023 RBC (Bld) [#/Vol] 4.87 10*6/uL Normal 3.90-5.60 [facility] Comment on above: Performed By: #### B MP, CBC #### [facility] [address] [place] [address] [place] Glucose [Mass/volume] in Ser um or PlasmaOrdered By: Yogesh Becker on 09-23-2023 Glucose [Mass/Vol] 412 mg/dL High 70-100 [facility] Comment on above: ADA recommended refe rence rangeRandom Glucose Reference Range is dependent on time and content of last meal. Glucose of more than 200 mg/dL in a nonstressed, ambulatory subject supports the diagnosis of Diabetes Mellitus. Result Comment: [facility] Glucose Reference Range is dependent on time and content of last meal. Glucose of more than 200 mg/dL in a nonstressed, ambulatory subject supports the diagnosis of Diabetes Mellitus. ADA recommended reference range Performed By: #### B MP, CBC #### [facility] [address] [place] [address] [place] Hematocrit [Volume Fraction] of Blood by Automated countOrdered By: Yogesh Becker on 09-23-2023 Hematocrit (Bld) [Volume fraction] 47.2 % Normal 38.8-50.0 [facility] Comment on above: Performed By: #### B MP, CBC #### [address] Hemoglobin [Mass/volume] in BloodOrdered By: Yogesh Becker on 09-23-2023 Hemoglobin (Bld) [Mass/Vol] 15.7 g/dL Normal 13.0-17.0 [facility] Comment on above: Performed By: #### B MP, CBC #### [address] Leukocytes [#/volume] correc charanjit for nucleated erythrocytes in Blood by Automated counOrdered By: Yogesh Becker on 09-23-2023 WBC corrected for nucl RBC Auto (Bld) [#/Vol] 12.4 10*3/uL 4.1-10.5 [facility] Leukocytes [#/volume] in Blo od by Automated countOrdered By: Yogesh Becker on 09-23-2023 WBC (Bld) [#/Vol] 12.4 10*3/uL High 4.1-10.5 [facility] Comment on above: Performed By: #### B MP, CBC #### [address] Lymphocytes [#/volume] in Bl ood by Automated countOrdered By: Yogesh Becker on 09-23-2023 Lymphocytes (Bld) [#/Vol] 1.7 10*3/uL Normal 1.00-4.8 [facility] Comment on above: Performed By: #### B MP, CBC #### [facility] [address] [place] [address] [place] Lymphocytes/100 leukocytes i n Blood by Automated countOrdered By: Yogesh Becker on 09-23-2023 Lymphocytes/100 WBC (Bld) 13.3 % Normal . [facility] Comment on above: Performed By: #### B MP, CBC #### [place] [address] [place] MCH [Entitic mass] by Automa charanjit countOrdered By: Yogesh Becker on 09-23-2023 MCH (RBC) [Entitic mass] 32.3 pg Normal 27.5-35.2 [facility] Comment on above: Performed By: #### B MP, CBC #### [facility] [address] [place] [address] MCHC Auto (RBC) [Mass/Vol]Or dered By: Yogesh Becker on 09-23-2023 MCHC (RBC) [Mass/Vol] 33.4 g/dL 32.5-35.6 [facility] MCV [Entitic volume] by Auto mated countOrdered By: Yogesh Becker on 09-23-2023 MCV (RBC) [Entitic vol] 96.9 fL Normal 83.5-101 [facility] Comment on above: Performed By: #### B MP, CBC #### [facility] [address] [place] [address] Neutrophils [#/volume] in Bl ood by Automated countOrdered By: Yogesh Becker on 09-23-2023 Neutrophils (Bld) [#/Vol] 10.1 10*3/uL High 1.8-7.7 [facility] Comment on above: Performed By: #### B MP, CBC #### [facility] [address] [place] [address] No Panel InformationOrdered By: Yogesh Becker on 09-23-2023 Estimated GFR (CKD-EPI) > 60.0 mL/Min [facility] Creatinine Clearance (Chem N/A [facility] Nucleated erythrocytes [Pres ence] in Blood by Automated countOrdered By: Yogesh Becker on 09-23-2023 Nucleated RBC Auto Ql (Bld) 0.0 /100{WBC} 0-0.5 [facility] Platelet mean volume [Entiti c volume] in Blood by Automated countOrdered By: Yogesh Becker on 09-23-2023 Platelet mean volume (Bld) [Entitic vol] 8.3 fL Normal 6.6-10.1 [facility] Comment on above: Performed By: #### B MP, CBC #### [facility] [address] [place] [address] [place] Platelets [#/volume] in Bloo d by Automated countOrdered By: Yogesh Becker on 09-23-2023 Platelets (Bld) [#/Vol] 203 10*3/uL Normal 150-450 [facility] Comment on above: Performed By: #### B MP, CBC #### [facility] [address] [place] [address] [place] Potassium [Moles/volume] in Serum or PlasmaOrdered By: Yogesh Becker on 09-23-2023 Potassium [Moles/Vol] 4.7 mmol/L Normal 3.5-5.1 [facility] Comment on above: Performed By: #### B MP, CBC #### [address] Serum or plasma anion gap de terminationOrdered By: Yogesh Becker on 09-23-2023 Anion gap [Moles/Vol] 13.1 mmol/L Normal 6.0-15.0 [facility] Comment on above: Performed By: #### B MP, CBC #### [facility] [address] [place] [address] [place] Sodium [Moles/volume] in Ser um or PlasmaOrdered By: Yogesh Becker on 09-23-2023 Sodium [Moles/Vol] 135 mmol/L Low 136-145 [facility] Comment on above: Performed By: #### B MP, CBC #### [facility] [address] [place] [address] [place] Urea nitrogen [Mass/volume] in Serum or PlasmaOrdered By: Yogesh Becker on 09-23-2023 Urea nitrogen [Mass/Vol] 28 mg/dL High 7-25 [facility] Comment on above: Performed By: #### B MP, CBC #### [facility] [address] [place] [address] CT ABDOMEN PELVIS W IV CONTR Ammon [...] spine 5V*on 07-27 XR cervical spine 5V* [facility] [place] [address] [place], [place] [id number] XRay Report Signed Patient: Koko Meier MR#: [id number] : 1960 Acct:[id number] Age/Sex: 62 / M ADM Date: 08/11/23 Loc: [place] Room: Type: [facility] CLI Attending Dr: Savanna Mcclain MD Copies [...] Koko Hernandez M.D.08/11/2023 5:00 PM Dictation Location: [place] [address] Transcribed By: [facility] 08/11/231699 Dictated By: Koko Hernandez DO 08/11/231656 Signed By: 08/11/231699 Normal [facility] XR thoracic spine 3V*on 07-27 XR thoracic spine 3V* [facility] [place] [address] [place], [place] [id number] XRay Report Signed Patient: Koko Meier MR#: [id number] : 1960 Acct:[id number] Age/Sex: 62 / M ADM Date: 08/11/23 Loc: [place] Room: Type: [facility] CLI Attending Dr: Savanna Mcclain MD Copies [...] Koko Hernandez M.D.08/11/2023 5:01 PM Dictation Location: [facility]- Transcribed By: [facility] 08/11/231700 Dictated By: Koko Hernandez DO 08/11/231699 Signed By: 08/11/231700 Normal [facility] XR lumbar spine 6V w bending on 08-01-2023 XR lumbar spine 6V w bending [facility] [place] [address] [place] [address] XRay Report Signed Patient: Koko Meier MR#: [id number] : 1960 Acct:[id number] Age/Sex: 62 / M ADM Date: 08/01/23 Loc: [place] Room: Type: [facility] Attending Dr: Josh Melvin DO Copies [...] Monika Eastman M.D.08/01/2023 1:06 PM Dictation Location: [facility]--10 Transcribed By: [facility] 08/01/23 1306 Dictated By: Monika Eastman MD 08/01/23 1210 Signed By: 08/01/23 1306 Normal [facility] A1C with Estimated Average G alice 04-21-2023 Glucose [Mass/Vol] 197 mg/dL Normal [facility] Comment on above: Result Comment: PERF ORMED BY: [place] [address] PATHOLOGIST EQUIPMENT ENGINEER CLEVE CANDELARIA M.D. Performed By: #### C AMAIRANI, BMP #### [facility] [address] [place] [address] [place] Alanine aminotransferase [En zymatic activity/volume] in Serum or PlasmaOrdered By: Josh Bunting on 04-21-2023 ALT [Catalytic activity/Vol] 19 U/L Normal 7-52 [facility] Comment on above: Order Comment: PT FA STED 12 HOURS Performed By: #### C AMAIRANI, BMP #### [facility] [address] [place] [address] [place] Albumin [Mass/volume] in Ser um or Plasma by Bromocresol green (BCG) dye binding methoOrdered By: Josh Bunting on 04-21-2023 Albumin BCG dye [Mass/Vol] 4.2 g/dL 3.5-5.7 [facility] Alkaline phosphatase [Enzyma tic activity/volume] in Serum or PlasmaOrdered By: Josh Bunting on 04-21-2023 ALP [Catalytic activity/Vol] 67 U/L Normal 34-104 [facility] Comment on above: Order Comment: PT FA STED 12 HOURS Performed By: #### C AMAIRANI, BMP #### [address] Aspartate aminotransferase [ Enzymatic activity/volume] in Serum or PlasmaOrdered By: Josh Bunting on 04-21-2023 AST [Catalytic activity/Vol] 16 U/L Normal 13-39 [facility] Comment on above: Order Comment: PT FA STED 12 HOURS Performed By: #### C BC, BMP #### [address] Automated basophil %Ordered By: Josh Bunting on 04-21-2023 Basophils/100 WBC (Bld) 0.9 % Normal . [facility] Comment on above: Performed By: #### C BC, BMP #### [address] Automated basophil countOrde red By: Josh Bunting on 04-21-2023 Basophils (Bld) [#/Vol] 0.1 10*3/uL Normal 0.0-0.2 [facility] Comment on above: Result Comment: PERF ORMED BY: [place] [address] PATHOLOGIST EQUIPMENT ENGINEER CLEVE CANDELARIA M.D. Performed By: #### C BC, BMP #### [address] Automated blood monocyte cou ntOrdered By: Josh Bunting on 04-21-2023 Monocytes (Bld) [#/Vol] 0.4 10*3/uL Normal 0.0-0.8 [facility] Comment on above: Performed By: #### C BC, BMP #### [address] Automated eosinophil %Ordere d By: Josh Bunting on 04-21-2023 Eosinophils/100 WBC (Bld) 2.1 % Normal . [facility] Comment on above: Performed By: #### C BC, BMP #### [address] Automated eosinophil countOr dered By: Josh Bunting on 04-21-2023 Eosinophils (Bld) [#/Vol] 0.2 10*3/uL Normal 0.0-0.45 [facility] Comment on above: Performed By: #### C BC, BMP #### [address] Automated monocyte %Ordered By: Josh Bunting on 04-21-2023 Monocytes/100 WBC (Bld) 5.5 % Normal . [facility] Comment on above: Performed By: #### C AMAIRANI, BMP #### [address] Automated neutrophil %Ordere d By: Josh Bunting on 04-21-2023 Neutrophils/100 WBC (Bld) 65.2 % Normal . [facility] Comment on above: Performed By: #### C AMAIRANI, BMP #### [address] Bilirubin.total [Mass/volume ] in Serum or PlasmaOrdered By: Josh Bunting on 04-21-2023 Bilirubin [Mass/Vol] 0.4 mg/dL Normal 0.3-1.0 [facility] Comment on above: Order Comment: PT FA STED 12 HOURS Performed By: #### C AMAIRANI, BMP #### [address] Calcium [Mass/volume] in Ser um or PlasmaOrdered By: Josh Bunting on 04-21-2023 Calcium [Mass/Vol] 9.3 mg/dL Normal 8.6-10.3 [facility] Comment on above: Order Comment: PT FA STED 12 HOURS Performed By: #### C BC, BMP #### [place] [address] [place] Carbon dioxide, total [Moles /volume] in Serum or PlasmaOrdered By: Josh Bunting on 04-21-2023 CO2 [Moles/Vol] 30.3 mmol/L Normal 21.0-31.0 [facility] Comment on above: Order Comment: PT FA STED 12 HOURS Performed By: #### C BC, BMP #### [address] [place] [address] [place] Chloride [Moles/volume] in S raffi or PlasmaOrdered By: Josh Melvin on 04-21-2023 Chloride [Moles/Vol] 99 mmol/L Normal 98-107 [facility] Comment on above: Order Comment: PT FA STED 12 HOURS Performed By: #### C AMAIRANI, BMP #### [facility] [address] [place] [address] [place] Cholesterol [Mass/volume] in Serum or PlasmaOrdered By: Josh Melvin on 04-21-2023 Cholesterol [Mass/Vol] 300 mg/dL High 140-200 [facility] Comment on above: Chol less than 200 m g/dl low riskChol 201-239 mg/dl borderline riskChol 240 mg/dl and greater high risk Order Comment: PT FA STED 12 HOURS Result Comment: Chol less than 200 mg/dl low risk Chol 201-239 mg/dl borderline risk Chol 240 mg/dl and greater high risk Performed By: #### C AMAIRANI, BMP #### [facility] [address] [place] [address] Cholesterol in LDL Calc [Mas s/Vol]Ordered By: Josh Melvin on 04-21-2023 Cholesterol in LDL [Mass/Vol] 207 mg/dL 0-100 [facility] Comment on above: LDL ATP III CLASSIFI CATIONLDL less than 100 mg/dL OptimalLDL 100-129 mg/dL Near or above optimalLDL 130-159 mg/dL Borderline highLDL 160-189 mg/dL HighLDL greater than 189 mg/dL Very high Cholesterol in VLDL Calc [Ma ss/Vol]Ordered By: Josh Melvin on 04-21-2023 Cholesterol in VLDL [Mass/Vol] 32 mg/dL [facility] Complete Blood Count Auto Di ffon 04-21-2023 Mean Corpuscular HGB Conc 34.2 g/dL Normal 32.5-35.6 [facility] Comment on above: Performed By: #### C BC, BMP #### [facility] [address] NRBC% 0.0 /100{WBC} Normal 0-0.5 [facility] Comment on above: Performed By: #### C AMAIRANI, BMP #### [facility] [address] Comprehensive Metabolic Pane brennen 04-21-2023 Albumin [Mass/Vol] 4.2 g/dL Normal 3.5-5.7 [facility] Comment on above: Order Comment: PT FA STED 12 HOURS Performed By: #### C BC, BMP #### [address] GFR/1.73 sq M.predicted MDRD (S/P/Bld) [Vol rate/Area] mL/min/{1.73_m2} Normal [facility] Comment on above: Order Comment: PT FA STED 12 HOURS Performed By: #### C BC, BMP #### [address] Creatinine [Mass/volume] in Serum or PlasmaOrdered By: Josh Bunting on 04-21-2023 Creatinine [Mass/Vol] 0.90 mg/dL Normal 0.70-1.30 [facility] Comment on above: Order Comment: PT FA STED 12 HOURS Performed By: #### C BC, BMP #### [address] Erythrocyte distribution wid th [Ratio] by Automated countOrdered By: Josh Bunting on 04-21-2023 Erythrocyte distribution width (RBC) [Ratio] 15.0 % High 12.0-14.8 [facility] Comment on above: Performed By: #### C BC, BMP #### [address] Erythrocytes [#/volume] in B lood by Automated countOrdered By: Josh Bunting on 04-21-2023 RBC (Bld) [#/Vol] 5.13 10*6/uL Normal 3.90-5.60 [facility] Comment on above: Performed By: #### C BC, BMP #### [address] Glucose [Mass/volume] in Ser um or PlasmaOrdered By: Josh Bunting on 04-21-2023 Glucose [Mass/Vol] 149 mg/dL High 70-100 [facility] Comment on above: ADA recommended refe rence rangeRandom Glucose Reference Range is dependent on time and content of last meal. Glucose of more than 200 mg/dL in a nonstressed, ambulatory subject supports the diagnosis of Diabetes Mellitus. Order Comment: PT FA STED 12 HOURS Result Comment: Rarden om Glucose Reference Range is dependent on time and content of last meal. Glucose of more than 200 mg/dL in a nonstressed, ambulatory subject supports the diagnosis of Diabetes Mellitus. ADA recommended reference range Performed By: #### C BC, BMP #### [facility] [address] Glucose mean value [Mass/vol ume] in Blood Estimated from glycated hemoglobinOrdered By: Josh Melvin on 04-21-2023 Average glucose Estimated from glycated hemoglobin (Bld) [Mass/Vol] 197 mg/dL [facility] Hematocrit [Volume Fraction] of Blood by Automated countOrdered By: Josh Melvin on 04-21-2023 Hematocrit (Bld) [Volume fraction] 48.8 % Normal 38.8-50.0 [facility] Comment on above: Performed By: #### C BC, BMP #### [facility] [address] [place] [address] Hemoglobin A1c percentageOrd ered By: Josh Melvin on 04-21-2023 HbA1c (Bld) [Mass fraction] 8.5 % High 4.3-5.6 [facility] Comment on above: Increased risk for d iabetes: 5.7 - 6.4diabetes: >6.4glycemic control for adults with diabetes: <7.0 Result Comment: Incr eased risk for diabetes: 5.7 - 6.4 diabetes: >6.4 glycemic control for adults with diabetes: <7.0 Performed By: #### C BC, BMP #### [address] Hemoglobin [Mass/volume] in BloodOrdered By: Josh Melvin on 04-21-2023 Hemoglobin (Bld) [Mass/Vol] 16.7 g/dL Normal 13.0-17.0 [facility] Comment on above: Performed By: #### C AMAIRANI, BMP #### [facility] [address] Leukocytes [#/volume] correc charanjit for nucleated erythrocytes in Blood by Automated counOrdered By: Josh Melvin on 04-21-2023 WBC corrected for nucl RBC Auto (Bld) [#/Vol] 7.1 10*3/uL 4.1-10.5 [facility] Leukocytes [#/volume] in Blo od by Automated countOrdered By: Josh Melvin on 04-21-2023 WBC (Bld) [#/Vol] 7.1 10*3/uL Normal 4.1-10.5 [facility] Comment on above: Performed By: #### C AMAIRANI, BMP #### [facility] [address] Lipid Panelon 04-21-2023 LDL Cholesterol,Calculate d 207 mg/dL High 0-100 [facility] Comment on above: Order Comment: PT FA STED 12 HOURS Result Comment: LDL ATP III CLASSIFICATION LDL less than 100 mg/dL Optimal LDL 100-129 mg/dL Near or above optimal LDL 130-159 mg/dL Borderline high LDL 160-189 mg/dL High LDL greater than 189 mg/dL Very high Performed By: #### C AMAIRANI, BMP #### [address] Triglyceride w/Reflex 162 mg/dL High 0-149 [facility] Comment on above: Order Comment: PT FA STED 12 HOURS Result Comment: TRIG ATP III CLASSIFICATION TRIG less than 150 mg/dL Normal TRIG 150-199 mg/dL Borderline high TRIG 200-500 mg/dL High TRIG greater than 500 mg/dL Very high Standard traceable to the Center for Disease Conrtrol and Prevention (CDC) test method. Performed By: #### C AMAIRANI, BMP #### [facility] [address] VLDL CHOLESTEROL 32 mg/dL Normal [facility] Comment on above: Order Comment: PT FA STED 12 HOURS Performed By: #### C AMAIRANI, BMP #### [facility] [address] Lymphocytes [#/volume] in Bl ood by Automated countOrdered By: Josh Bunting on 04-21-2023 Lymphocytes (Bld) [#/Vol] 1.9 10*3/uL Normal 1.00-4.8 [facility] Comment on above: Performed By: #### C BC, BMP #### [address] Lymphocytes/100 leukocytes i n Blood by Automated countOrdered By: Josh Bunting on 04-21-2023 Lymphocytes/100 WBC (Bld) 26.3 % Normal . [facility] Comment on above: Performed By: #### C BC, BMP #### [address] MCH [Entitic mass] by Automa charanjit countOrdered By: Josh Bunting on 04-21-2023 MCH (RBC) [Entitic mass] 32.5 pg Normal 27.5-35.2 [facility] Comment on above: Performed By: #### C BC, BMP #### [address] MCHC Auto (RBC) [Mass/Vol]Or dered By: Josh Bunting on 04-21-2023 MCHC (RBC) [Mass/Vol] 34.2 g/dL 32.5-35.6 [facility] MCV [Entitic volume] by Auto mated countOrdered By: Josh Bunting on 04-21-2023 MCV (RBC) [Entitic vol] 95.2 fL Normal 83.5-101 [facility] Comment on above: Performed By: #### C BC, BMP #### [address] Neutrophils [#/volume] in Bl ood by Automated countOrdered By: Josh Bunting on 04-21-2023 Neutrophils (Bld) [#/Vol] 4.6 10*3/uL Normal 1.8-7.7 [facility] Comment on above: Performed By: #### C BC, BMP #### [address] No Panel InformationOrdered By: Josh Bunting on 04-21-2023 Estimated GFR (CKD-EPI) > 60.0 mL/Min [facility] Creatinine Clearance (Chem N/A [facility] Nucleated erythrocytes [Pres ence] in Blood by Automated countOrdered By: Josh Bunting on 04-21-2023 Nucleated RBC Auto Ql (Bld) 0.0 /100{WBC} 0-0.5 [facility] Platelet mean volume [Entiti c volume] in Blood by Automated countOrdered By: Josh Bunting on 04-21-2023 Platelet mean volume (Bld) [Entitic vol] 8.6 fL Normal 6.6-10.1 [facility] Comment on above: Performed By: #### C AMAIRANI, BMP #### [facility] [address] [place] [address] [place] Platelets [#/volume] in Bloo d by Automated countOrdered By: Josh Bunting on 04-21-2023 Platelets (Bld) [#/Vol] 200 10*3/uL Normal 150-450 [facility] Comment on above: Performed By: #### C AMAIRANI, BMP #### [facility] [address] [place] [address] [place] Potassium [Moles/volume] in Serum or PlasmaOrdered By: Josh Bunting on 04-21-2023 Potassium [Moles/Vol] 4.6 mmol/L Normal 3.5-5.1 [facility] Comment on above: Order Comment: PT FA STED 12 HOURS Performed By: #### C AMAIRANI, BMP #### [facility] [address] [place] [address] [place] Protein [Mass/volume] in Ser um or PlasmaOrdered By: Josh Bunting on 04-21-2023 Protein [Mass/Vol] 6.4 g/dL Normal 6.4-8.9 [facility] Comment on above: Order Comment: PT FA STED 12 HOURS Performed By: #### C AMAIRANI, BMP #### [facility] [address] [place] [address] Serum globulin measurement b y calculation (mass/volume)Ordered By: Josh Bunting on 04-21-2023 Globulin (S) [Mass/Vol] 2.2 g/dL Normal [facility] Comment on above: Order Comment: PT FA STED 12 HOURS Performed By: #### C AMAIRANI, BMP #### [facility] [address] [place] [address] Serum or plasma albumin/glob ulin mass ratioOrdered By: Josh Bunting on 04-21-2023 Albumin/Globulin [Mass ratio] 1.9 {ratio} Normal [facility] Comment on above: Order Comment: PT FA STED 12 HOURS Performed By: #### C AMAIRANI, BMP #### [facility] [address] [place] [address] Serum or plasma anion gap de terminationOrdered By: Josh Bunting on 04-21-2023 Anion gap [Moles/Vol] 11.3 mmol/L Normal 6.0-15.0 [facility] Comment on above: Order Comment: PT FA STED 12 HOURS Performed By: #### C AMAIRANI, BMP #### [facility] [address] [place] [address] Serum or plasma high density lipoprotein (HDL) cholesterol measurementOrdered By: Josh Bunting on 04-21-2023 Cholesterol in HDL [Mass/Vol] 61 mg/dL Normal 23-92 [facility] Comment on above: HDL CHOL ATP-III CLA SSIFICATION Cardiovascular RiskHDL > or equal to 60 mg/dL LOWHDL < 40 mg/dL HIGH Order Comment: PT FA STED 12 HOURS Result Comment: HDL CHOL ATP-III CLASSIFICATION Cardiovascular Risk HDL > or equal to 60 mg/dL LOW HDL < 40 mg/dL HIGH Performed By: #### C AMAIRANI, BMP #### [facility] [address] [place] [address] Serum or plasma total choles terol/high density lipoprotein (HDL) cholesterol mass ratOrdered By: Josh Bunting on 04-21-2023 Cholesterol.total/Cho lesterol in HDL [Mass ratio] 4.9 {ratio} Normal <5.0 [facility] Comment on above: Order Comment: PT FA STED 12 HOURS Result Comment: PERF ORMED BY: [place] [address] PATHOLOGIST EQUIPMENT ENGINEER CLEVE CANDELARIA M.D. Performed By: #### C AMAIRANI, BMP #### [address] Sodium [Moles/volume] in Ser um or PlasmaOrdered By: Josh Bunting on 04-21-2023 Sodium [Moles/Vol] 136 mmol/L Normal 136-145 [facility] Comment on above: Order Comment: PT FA STED 12 HOURS Performed By: #### C AMAIRANI, BMP #### [address] Triglyceride [Mass/volume] i n Serum or PlasmaOrdered By: Josh Bunting on 04-21-2023 Triglyceride [Mass/Vol] 162 mg/dL 0-149 [facility] Comment on above: TRIG ATP III CLASSIF ICATIONTRIG less than 150 mg/dL NormalTRIG 150-199 mg/dL Borderline highTRIG 200-500 mg/dL High TRIG greater than 500 mg/dL Very highStandard traceable to the Center for Disease Conrtrol and Prevention (CDC) test method. Urea nitrogen [Mass/volume] in Serum or PlasmaOrdered By: Josh Bunting on 04-21-2023 Urea nitrogen [Mass/Vol] 25 mg/dL Normal 7-25 [facility] Comment on above: Order Comment: PT FA STED 12 HOURS Performed By: #### C AMAIRANI, BMP #### [address] CNPNon 04-10-2023 CNPN Telephone (OTOLCC) -- NIYAH MEIER ([id number]) 1960 M Date Time Provider Department 04/10/23 DONNY PERALTA During your visit today, we [...] (HUMALOG KWIKPEN) 100 unit/mL Inject subcutaneously. - lisinopril-hydroCHLOROthia zide (ZESTORETIC) 10-12.5 mg per tablet 1 (one) time each day at the same time. - cyclobenzaprine (FLEXERIL) 10 mg tablet Take 10 mg by mouth three times daily. - hydrOXYzine pamoate (VISTARIL) 25 mg capsule TAKE 1 TO 2 CAPSULES BY MOUTH EVERY 6 HOURS NEEDED FOR ANXIETY Problem List As Of Date: 04/10/2023 (None) Encounter Status:Closed by KIMBERLI COUCH on 04/15/23 [facility] CNOVon 03-26-2023 CNOV Office Visit (OTOLCC ) -- NIYAH MEIER ([id number]) 1960 M Date Time Provider Department 03/26/23 11:20 AM [facility] During your visit today, we recorded the following information about you: Pulse Respiration 88/minute 17/minute Donny Peralta APRN.CHANNEL ACCOUNT MANAGER 03/26/2023 4:15 PM Signed Mr. Meier [...] 2 to 3 weeks time. Donny Peralta APRN.CHANNEL ACCOUNT MANAGER CC: Josh Melvin DO Referring Provider: JOSH MELVIN [[id number]] Allergies As of Date: 03/26/2023 (No Known Allergies) Date Reviewed: 03/26/2023 Reviewed by: Olive Hui LPN - Fully Assessed Reason for Visit: Mouth lesion on left side [Other] Primary Visit Diagnosis:Laryngeal candidiasis [B37.89] Other Visit Diagnoses:Glossitis [K14.0] Oral candidiasis [B37.0] Hoarseness of voice [R49.0] History of alcohol abuse [F10.11] Order(s):COMP METABOLIC PANEL [SQCMP] Order #: [id number] FUTURE clotrimazole (MYCELEX) 10 mg trocheUse 1 Bud as instructed four times daily for 14 days.Disp: 56 tabletRfl: 0 Prescriptions as of 03/26/2023 - busPIRone HCl 30 mg tablet TAKE 1 TABLET BY MOUTH THREE TIMES DAILY FOR ANXIETY - celec (more content not included)... Normal [facility] Comprehensive metabolic 2000 panelon 03-26-2023 Albumin [Mass/Vol] 4.4 g/dL Normal 3.9-4.9 [facility] Comment on above: Order Comment: Speci men Type: BLOOD SPECIMEN Ordering Facility: [facility] Address: [address] [place] [place] [address] Performed By: #### 2 4323-8 #### [facility] CLIA [id number] [address] [place] [address] [place] ALP [Catalytic activity/Vol] 90 U/L Normal 38-113 [facility] Comment on above: Order Comment: Speci men Type: BLOOD SPECIMEN Ordering Facility: [facility] Address: [address] [place] [address] Performed By: #### 2 4323-8 #### [facility] CLIA [id number] [address] [place] [address] [place] ALT [Catalytic activity/Vol] 22 U/L Normal 10-54 [facility] Comment on above: Order Comment: Speci men Type: BLOOD SPECIMEN Ordering Facility: [facility] Address: [address] [place] [address] Performed By: #### 2 4323-8 #### [facility] CLIA [id number] [address] [place] [address] [place] Anion gap [Moles/Vol] 11 mmol/L Normal 9-18 [facility] Comment on above: Order Comment: Speci men Type: BLOOD SPECIMEN Ordering Facility: [facility] Address: [address] [place] [address] Performed By: #### 2 4323-8 #### [facility] CLIA [id number] [address] [place] [address] [place] AST [Catalytic activity/Vol] 23 U/L Normal 14-40 [facility] Comment on above: Order Comment: Speci men Type: BLOOD SPECIMEN [facility] - [place] Address: [address] [place] [address] Performed By: #### 2 4323-8 #### [facility] CLIA [id number] [address] [place] [address] [place] Bilirubin [Mass/Vol] 0.4 mg/dL Normal 0.2-1.3 [place] Comment on above: Order Comment: Speci men Type: BLOOD SPECIMEN Ordering Facility: [facility] [place] Address: [address] [place] [address] Performed By: #### 2 4323-8 #### [facility] CLIA [id number] [address] [place] [address] [place] Calcium [Mass/Vol] 9.6 mg/dL Normal 8.5-10.2 [facility] Comment on above: Order Comment: Speci men Type: BLOOD SPECIMEN Ordering Facility: [facility] [place] Address: [address] [place], [place] [id number] Performed By: #### 2 4323-8 #### [facility] CLIA [id number] [address] [place] [id number] [place] Chloride [Moles/Vol] 97 mmol/L Normal 97-105 [place] Comment on above: Order Comment: Speci men Type: BLOOD SPECIMEN Ordering Facility: [facility] [place] Address: [address] [address] Performed By: #### 2 4323-8 #### [facility] CLIA [id number] [address] [place] [address] [place] CO2 [Moles/Vol] 27 mmol/L Normal 22-30 [facility] Comment on above: Order Comment: Speci men Type: BLOOD SPECIMEN Ordering Facility: [facility] [place] Address: [address] [address] Performed By: #### 2 4323-8 #### [facility] CLIA [id number] [address] [place] [address] [place] Creatinine [Mass/Vol] 0.99 mg/dL Normal 0.73-1.22 [facility] Comment on above: Order Comment: Speci men Type: BLOOD SPECIMEN Ordering Facility: [facility] [place] Address: [address] [address] Performed By: #### 2 4323-8 #### [facility] CLIA [id number] [address] [place] [address] [place] ESTIMATED GLOMERULAR FILTRATION RATE 85 mL/min/1.73m??? Normal >=60 [facility] Comment on above: Order Comment: Speci men Type: BLOOD SPECIMEN Ordering Facility: [facility] [place] Address: [address] [place] [address] Result Comment: Neha mated Glomerular Filtration Rate [...] GFR. Performed By: #### 2 4323-8 #### [facility] CLIA [id number] [address] [place] [address] [place] Glucose [Mass/Vol] 85 mg/dL Normal 74-99 [facility] Comment on above: Order Comment: Specshannan men Type: BLOOD SPECIMEN Ordering Facility: [facility] [place] Address: [address] [place] [address] Result Comment: The [place] [employer] (ADA) provides guidance for cutoff [...] Standards of Medical Care in Diabetes 2016, [place] [employer]. Diabetes Care. 2016.39(Suppl 1). Performed By: #### 2 4323-8 #### [facility] CLIA [id number] [facility] [place] [address] [place] Potassium [Moles/Vol] 4.5 mmol/L Normal 3.7-5.1 [facility] Comment on above: Order Comment: Ilana guillen Type: BLOOD SPECIMEN Ordering Facility: [facility] [place] Address: [address] [place] [address] Performed By: #### 2 4323-8 #### [facility] CLIA [id number] [facility] [place] [address] [place] Protein [Mass/Vol] 7.0 g/dL Normal 6.3-8.0 [facility] Comment on above: Order Comment: Ilana men Type: BLOOD SPECIMEN Ordering Facility: [facility] [place] Address: [address] [place] [address] Performed By: #### 2 4323-8 #### [facility] CLIA [id number] [facility] [place] [address] [place] Sodium [Moles/Vol] 135 mmol/L Low 136-144 [facility] Comment on above: Order Comment: Speci men Type: BLOOD SPECIMEN Ordering Facility: [facility] [place] Address: [address] [id number] Performed By: #### 2 4323-8 #### [facility] CLIA [id number] [address] [place] [address] [place] Urea nitrogen [Mass/Vol] 25 mg/dL High 9-24 [facility] Comment on above: Order Comment: Speci men Type: BLOOD SPECIMEN Ordering Facility: [facility] [place] Address: [address] [address] Performed By: #### 2 4323-8 #### [facility] CLIA [id number] [address] [place] Body fluid albumin measureme nt (mass/volume)Ordered By: Josh Melvin on 09-30-2022 Albumin (Body fld) [Mass/Vol] 3.6 g/dL 3.2-5.5 [facility] Cholesterol [Mass/volume] in Serum or PlasmaOrdered By: Josh Melvin on 09-30-2022 Cholesterol [Mass/Vol] 154 mg/dL 140-200 [facility] Comment on above: Chol less than 200 m g/dl low riskChol 201-239 mg/dl borderline riskChol 240 mg/dl and greater high risk Cholesterol in LDL Calc [Mas s/Vol]Ordered By: Josh Melvin on 09-30-2022 Cholesterol in LDL [Mass/Vol] 93 mg/dL 0-100 [facility] Comment on above: LDL ATP III CLASSIFI CATIONLDL less than 100 mg/dL OptimalLDL 100-129 mg/dL Near or above optimalLDL 130-159 mg/dL Borderline highLDL 160-189 mg/dL HighLDL greater than 189 mg/dL Very high Cholesterol in VLDL Calc [Ma ss/Vol]Ordered By: Josh Melvin on 09-30-2022 Cholesterol in VLDL [Mass/Vol] 17 mg/dL [facility] Creatinine and Glomerular fi ltration rate.predicted panel (S/P/Bld)Ordered By: Josh Melvin on 09-30-2022 Creatinine [Mass/Vol] 0.89 mg/dL 0.64-1.27 [facility] Estimated glomerular filtrat ion rate (GFR) non- AmericanOrdered By: Josh Melvin on 09-30-2022 GFR/1.73 sq M.predicted among non-blacks MDRD (S/P/Bld) [Vol rate/Area] > 60 mL/Min [facility] Globulin Calc (S) [Mass/Vol] Ordered By: Josh Melvin on 09-30-2022 Globulin (S) [Mass/Vol] 3.1 g/dL [facility] Glucose mean value [Mass/vol ume] in Blood Estimated from glycated hemoglobinOrdered By: Josh Melvin on 09-30-2022 Average glucose Estimated from glycated hemoglobin (Bld) [Mass/Vol] 180 mg/dL [facility] Hemoglobin A1c percentageOrd ered By: Josh Melvin on 09-30-2022 HbA1c (Bld) [Mass fraction] 7.9 % 4.3-5.6 [facility] Comment on above: Increased risk for d iabetes: 5.7 - 6.4diabetes: >6.4glycemic control for adults with diabetes: <7.0 No Panel InformationOrdered By: Josh Melvin on 09-30-2022 Estimated GFR () > 60 mL/Min [facility] Comment on above: GFR estimated refere nce range: According to KDOQI guidelines, <60 ml/min/1.73m2 is sufficient to diagnose a patient with chronic kidney disease. Pharmacy Creatinine Clearance (Chem N/A [facility] Protein [Mass/volume] in Ser um or PlasmaOrdered By: Josh Melvin on 09-30-2022 Protein [Mass/Vol] 6.7 g/dL 6.1-7.9 [facility] Serum or plasma alanine cullen otransferase measurement without P-5'-P (enzymatic activiOrdered By: Josh Melvin on 09-30-2022 ALT No additional P-5'-P [Catalytic activity/Vol] 19 U/L 10-60 [facility] Serum or plasma albumin/glob ulin mass ratioOrdered By: Josh Melvin on 09-30-2022 Albumin/Globulin [Mass ratio] 1.2 {ratio} [facility] Serum or plasma alkaline juliette sphatase measurement (enzymatic activity/volume)Ordered By: Josh Melvin on 09-30-2022 ALP [Catalytic activity/Vol] 78 U/L 32-92 [facility] Serum or plasma anion gap de terminationOrdered By: Josh Melvin on 09-30-2022 Anion gap [Moles/Vol] 19.0 mmol/L 6.0-15.0 [facility] Serum or plasma aspartate am inotransferase measurement (enzymatic activity/volume)Ordered By: Josh Melvin on 09-30-2022 AST [Catalytic activity/Vol] 17 U/L 10-42 [facility] Serum or plasma calcium ezra urement (mass/volume)Ordered By: Josh Melvin on 09-30-2022 Calcium [Mass/Vol] 9.6 mg/dL 8.2-10.2 [facility] Serum or plasma chloride brenda surement (moles/volume)Ordered By: Josh Melvin on 09-30-2022 Chloride [Moles/Vol] 94 mmol/L 95-114 [facility] Serum or plasma glucose ezra urement (mass/volume)Ordered By: Josh Melvin on 09-30-2022 Glucose [Mass/Vol] 149 mg/dL 70-100 [facility] Comment on above: ADA recommended refe rence rangeRandom Glucose Reference Range is dependent on time and content of last meal. Glucose of more than 200 mg/dL in a nonstressed, ambulatory subject supports the diagnosis of Diabetes Mellitus. Serum or plasma high density lipoprotein (HDL) cholesterol measurementOrdered By: Josh Melvin on 09-30-2022 Cholesterol in HDL [Mass/Vol] 44 mg/dL 29-71 [facility] Comment on above: HDL CHOL ATP-III CLA SSIFICATION Cardiovascular RiskHDL > or equal to 60 mg/dL LOWHDL < 40 mg/dL HIGH Serum or plasma potassium me asurement (moles/volume)Ordered By: Josh Melvin on 09-30-2022 Potassium [Moles/Vol] 4.9 mmol/L 3.5-5.1 [facility] Serum or plasma sodium measu rement (moles/volume)Ordered By: Josh Melvin on 09-30-2022 Sodium [Moles/Vol] 137 mmol/L 136-146 [facility] Serum or plasma total biliru bin measurement (mass/volume)Ordered By: Josh Bunjayleen on 09-30-2022 Bilirubin [Mass/Vol] 0.7 mg/dL 0.3-1.2 [facility] Serum or plasma total carbon dioxide measurement (moles/volume)Ordered By: Josh Melvin on 09-30-2022 CO2 [Moles/Vol] 28.9 mmol/L 22.0-30.0 [facility] Serum or plasma total choles terol/high density lipoprotein (HDL) cholesterol mass ratOrdered By: Josh Melvin on 09-30-2022 Cholesterol.total/Cho lesterol in HDL [Mass ratio] 3.5 {ratio} <5.0 [facility] Serum or plasma urea nitroge n measurement (mass/volume)Ordered By: Josh Melvin on 09-30-2022 Urea nitrogen [Mass/Vol] 19 mg/dL 9-23 [facility] Triglyceride [Mass/volume] i n Serum or PlasmaOrdered By: Joshana Melvin on 09-30-2022 Triglyceride [Mass/Vol] 86 mg/dL 35-149 [facility] Comment on above: TRIG ATP III CLASSIF ICATIONTRIG less than 150 mg/dL NormalTRIG 150-199 mg/dL Borderline highTRIG 200-500 mg/dL High TRIG greater than 500 mg/dL Very highStandard traceable to the Center for Disease Conrtrol and Prevention (CDC) test method. IntraOperative Documentson 0 04-25-2021 IntraOperative Documents [id number]:127 Normal [facility] Main OR Intraoperative Recor don 04-25-2021 Main OR Intraoperative Record IntraOp Document Type FT Summary Primary Physician: Kwame Yang DO Finalized Date/Time: 04/25/21 16:46:35 Pt. Name: KOKO MEIER/Sex: 1960 Male Med Rec #: [id number] Physician: Kwame Yang DO Financial #: [id number] Pt. Type: I Room/Bed: [facility] Admit/Disch: 04/18/21 08:03:48 - 04/19/21 13:50:00 Institution: Case Times FT Entry 1 Patient Times In Room 04/18/21 10:01:00 Out Room 04/18/21 12:40:00 Procedure Times Start 04/18/21 10:45:00 Stop 04/18/21 12:30:00 Anesthesia Times Start 04/18/21 10:01:00 Stop 04/18/21 12:40:00 Block Timeout w/ 04/18/21 09:08:00 Anesthesia Last Modified By: Nandini Villaseñor RN 04/18/21 12:41:32 General Comments: 04/20/21 Chart open to review l annalisa rn 04/20/21 send charges. L Annalisa KOO Case Attendance FT Entry 1 Entry 2 Entry 3 Case Attendee Jimmy Winkler CRNA, DO, Jason A Roth DIRECTOR PEDIATRIC, Ailyn Hankins Role Performed Anesthesiologist Surgeon - Primary DIRECTOR PEDIATRIC/SA Information Clerk Cashier Time In 04/18/21 10:01:00 04/18/21 10:01:00 04/18/21 10:01:00 Time Out 04/18/21 12:40:00 04/18/21 12:40:00 04/18/21 12:40:00 Procedure SHOULDER TOTAL SHOULDER TOTAL SHOULDER TOTAL ARTHROPLASTY(Right) ARTHROPLASTY(Right) ARTHROPLASTY(Right) Comments supervised by Dr. Linton Last Modified By: Nandini Villaseñor RN, RN, Nandini Desouza RN 04/18/21 12:41:34 04/18/21 12:41:34 04/18/21 12:41:34 Entry 4 Entry 5 Entry 6 Case Attendee Kasi KOO, Nandini Goldberg DIRECTOR PEDIATRIC, Christiano Ballard DIRECTOR PEDIATRIC, FA, Windy K Role Performed Tilt Tray Driver - Primary Scrub - Primary Staff - [...] DO, Given Participants Jimmy Winkler CRNA, Roth DIRECTOR PEDIATRIC, Kasi Maciel RN, Britny S, Boyer CST, Elio Burnham DIRECTOR PEDIATRIC, FA, Mensjeny K Time Out Complete 04/18/21 [...] and tissue Entry 1 Skin Integrity Intact, [place], Warm, and Skin Abnormality No Dry (more content not included)... Normal [facility] Main OR Preoperative Recordo n 04-25-2021 Main OR Preoperative Record PreOp Document Type FT Summary Primary Physician: Kwame Yang DO Finalized Date/Time: 04/25/21 16:43:54 Pt. Name: KOKO MEIER./Sex: 1960 Male Med Rec #: [id number] Physician: Kwame Yang DO Financial #: [id number] Pt. Type: Room/Bed: [place] [address] Admit/Disch: 04/18/21 08:03:48 - 04/19/21 13:50:00 Institution: Case Times PreOp FT Pre-Care Text: Verifies consent for planned procedure, identifies individual values and wishes concerning care, includes family members in perioperative teaching Entry 1 Patient Times. In Pre Surgery 04/18/21 08:05:00 Out Pre Surgery 04/18/21 10:00:00 Outcomes Met? Yes Last Modified By: Nandini Vlilaseñor RN 04/25/21 16:43:45 Post-Care Text: The patient participates in decisions affecting his or her perioperative plan of care Finalized By: Nandini Villaseñor RN Document Signatures Signed By: Nandini Villaseñor RN 04/25/21 16:43 [facility] Coding Summary.on 04-24-2021 Coding Summary. CD:[id number] Gh0bWw +PGhlYWQ+HW6MHCZrN98qsIFbm O0UU9nOHE6LGVMUUECSDR4TKS4 ooHV5EXljS5VssbGu LhjbhAFhPX49NEh8EGP6oNfnDH dcbN5hdNUiN1c4FkKuOO93sG09 SCnyZJDmTdQ4OjAyhjypgGCg B4hlFvEjdLYuFbv+PHRhYmxlIH ahIFEwIDveJIVxJzNrhZhpJF0m Zp2yKUOlBJCpvYnxhHJrCzOo a6unYCErNCidXA8ygGgwM0VomR V8JDRad3g8Rd43yEP+PHRkIHN0 dDoeMBstd545ZfQvr7dqYMA0 bWXgCKssUWD7P17ey1B6OJHnON WpJEF4wVN8zC9fbTailyzbZ6Ys fHAuEuS0YTT8yQPqyF1njZox yjoyuO1tXyu+J36FKM2WETCDJV 0RHjv0M1VrEdqelGB+JN53KJWv PF64qTPqhIIub5dkyDf6TiBq ZVLkSUJ9aPgvXYotl2WdPHRkW8 3mbVSym7E8QDZwtVebvPUnOaGc aBQ4nS3iTBxawzdui3cnfvfy Blygy2gqze84fQ94L81aMVmmBC BkPWB3BXXaHUTjzTpbmh2fcV6d Ii8+WPxsx1dso7nccOo2AaMs GSCxpzZgnTqpTPM1s7SdJv28I3 UznOnlg0PzQky4uy12fOJmw2M6 qEB2YIwlPPRumH7rUVfqYsM9 QUAgDaZbzL05jDXbCCjtQt6dbD zifBypUL5cBPJgwolwBWBqvG4g NHSqzZRyxFyxNE0sJVYcqhkr v985ScRaTRJ0MFPopHUyP5KggK 9jOfMkGIKxKKLpI6ZrrAXwCTqt L001RKkdEqW7GBZymjBcK1Am PTUzjDkfUgK9q5K1Ax9Qp7Sbwz aaMEA1VWjdVZX1RcE4SzPvGdH6 T2LuQyw9DGJuxGfjCR5uE1Kv EHUrjevakyujnPN5RBYgDITzcJ 29vRBaOMsfPv8za1Z5g999QRRb RLXslV02Ap8wdPekKGCwaQIF yA6wobvdm1ndigqmAiWhAURxAR g3XYf0FYGskKscUmBdMHJ6DwL2 TVL1mZFykL0rxSyzvbshqO7n Oyc+V86hfI7tXVQ5VMP0pscnAT XsqiAgFA92RU86Y2HdEibfzTXq bGU+PKPyzjDcyHrsIF6cMfBc m0svo2AqYEbwQ5ArEYAmNMjmOy g2XFBdWDV9bYI6iZ6mZDFoBFyx g7A4kIY6X8LvieQkxg6ru1jm UUTuKRigS38nvCKgu8I6WBChdF E6DJMqyZkrZjAkyX24Egz+PGNv hWjbo7ItDmptj4bij1jryRy1 PcLtUDIcneErsJdzBGA3t6UbXa 32C77vLPahAMLdFMAsOFCvAVVi yJfvjc5tuF1iGy1+PGNvbCB3 eAH1uS4zXHYtEjB2XImvU682Da HhkIGwFwojp2jaz6hbpUz6YpTk YBZvcdEheCgdGFX2i1ZwWs70 P18pUYgsDZVuNHVwRCRzWSJdzO jdmf3flZ1mKt0+IA5pa4loif51 yT81pYM+NTKvVLI2fKbsWFvf YWAvcJ2pVXqmGwJ4RHWtDkYovD 41gYXrKZbxEb5pdAborHqfYF0p LBMxhdwqp369UgLrd0esUBNz iSTjIAvrPFV8P60se8N0KYKaDV RzPDI4sTA2oV5esAxgvyqayNFz bIawfmRrzSkxHUriLVehX536 IHRvcDsnPlBhdGllbnQgTmFtZT k1Z9UqByo6GEXtfXcmTZ2vrTFk XMkxDv2swWjsyXsqLM4hAZYj bzati871HeLzi4bhWBSeaCYuQL ecWDN4G18aj2I3PSKqEBEzKPN6 sSB0vW1omCmiheontUFqbKzp clVocNbxSNeuMWslR343DHBasT uaRxUhagAdCCTglRT7CQ33VF86 tOYsi8A1lZW8D4BdOOFvavcz nyqnkUX8WIWwHSWwsR33Dv3cyH jyUc5hUUByOTD0KLAgdNXtG7Rt wB5iNkUvDDSvKJZeA3FjfPYe KCdeW226USgpKeJ6ZBIlhoTwP9 XhGBMagHmmYgA2w3L8Rh7FP6V9 JL71WS96fDChn0Q8mXM1U9Iu WMAoxecwyvatmDQ0RORnYZVynL 87Pz8gnQisTi8zMPBjSKR6XXTk uLCwQ5EudY1oNzUnYWCqNDNk O2QpoRSyXPeeC985JZojOkL4CG MvmyMlS5NiDGRjnMxnCgY8j4M4 Qx0LXVu7SA58WA91vXCqb6Q5 iQN4Y6JoKHVsphbdeujdyKU5MM LcLABwxS98Eh1kcKgeSq5vQTNa MZO9ZNLznGQvN2RpkL6yWkFz RMAnEZJqH6OasYZdAQztX875JG udVmY3YWRhglOvU5ZrHYCrmLis QwX0r5F1Pl4XWIYyIA31YRN5 jIY9UD06XU68N3EyBlreaALeyV U+PHRhYmxlIHdpZHRoPScxMDAl KaKigZllYM2zFb3oSLTnLHYn bWrcsGWjNcCnh3yyTDZzTKezKS 3qqOjuK1TwqKL6MEZkp2g7Jr91 F98oL2NsrBV+PIYvtYC6uXL6 nJ0sScZrBtM7WWesU570EfUzuN OjRtcmw7nvb2rqrXw9GnP0HGJw xqRzoNwzMHV5j8UmNa83I10n IHdpZHRoPSIxNSUiIHZhbGlnbj 3usI9vNo7+PGRtoBN5gXT2yF5y TlDoWlL5DOnjV327UnHduYDz Xedia0stc0cuwYe1YmXzJTRgwv AeoYwqWGC8n5OvAi93C6JddKmc x0HwNzx2vf52aDSth8K3lDC1 W3YjHZGydhtxxVOtlSmrNP5aUT KsonznJCFqhT8kRGZqF4y0UcYo TnP8EBsqL8MpfbP9DGEqyFDh AZuwVRA6F04li9Y3NJEpIIRwUO M4gNJ6cT0aaEynnbtwhVEctBqw llUyjGnlLGflTBujC507WKOv dSgcEZXvlM9hHKCofMEgyAeaNY 0nOBHqfqqkCcQZPN0JSISlELtD RkZSRVkgUzwvdGQ+PHRkIHN0 rLdfHUqmWMHacE5gKUHsN0i1Zg QwGnY6PJzvD0HtSALylxxyRz53 mR7fVbPmWeD5NSzcS2ReklY5 QQPmsKFqFMbdWOH1Q38ll5E7XR EqPXWiXIY2lUG0cS2zsPclwwdw bGVmdDsgdmVydGljYWwtYWxp O822TMAqyTcfSvIlRxZzIxY3RG n7J9IrMff3MXMmdGguLR8miVTk ZVgiBp8ylRnkhKxaPJ7uSUVo rmfbPZDsrN4pKATgtKSzcTfvHX 0mILNwzwawb784HhWrODP9MMPe sGZgP5MwmI6eUiKmHZQmJFSl X3GbkNFnPTytC595TAxmIrD0CV SswsZaU2MsASEfxXzqXbP3t2S1 Xk14OdDEUAKfuxidbFW+PHRk ZRS4fYocYTcoVGDptE0aJFDuB5 r7TwYzOrO0QSbyN3XrFBYqjdhs Wp69aN0jJvOzJrF0AZjsL3Az mbV8OBQjlHCwLEuxCOQ6I58dv1 F9QKLaCYJsLYZ5bNG7tQ7qeXhw bjogbGVmdDsgdmVydGljYWwt CIzoQ813XWGfoJdpVb6dmHM1A6 TyTtt3CCBpgUqeHW5klTJqRVjx Si2ksDpblYwpYV0bNDVwysnz YTBlyP3pOOWhdFOsyBnaIG0uTM Eylqhbd356WzWwCBU3RWUgkKGb M2NcqR6jBcIcMOHdFZOfG1Ja yJGfNJvtG603PJxyAbV0GRMjcz CiE8QyTUJwaGbyKjG2a0Q6Sw9O hyJscRxswrR4K1WtNhhgqXZ+ EP52YRZjTD42oGPqpEPqs7tuaT l3OwNqILBzSOY6vNdvWMids6Gu TTJxU08kfOXcv8P1BDHmwGkw gJZrOaSfzDQ0jZ1lCAiqeasqr7 nozbiwBaxhj1xrgj79rP35A71z IHdpZHRoPSIzMCUiIHZhbGln ar8oxK0yXh8+RKQcfKG4zZR2xN 2vQwNoByD9RGukX073HsUyvWZp Jketj4hlv2qguYc5QvEdBBIb cmFywLaxHSM6p3HuWr17A35kBY cqRLYbAHDcYHDiYNRxkRbnml9h hN0iVe3+ZR9vg5szba66nL90 dHI+LKQiHDK2wEiuZMtjPSOwqI 3rVPkcRoI6FTRrQdLdqN21yUFt JRyvJt9dmYyxtXklHN8pVINi pjfls654JyFoi0kuAXNheFTmGU muDWJ8L47hj6C9RWBxWZWpJOW7 jOH5gG4ypHwrhxwlnKZnsCxl djVnyKmyRTfgEWtkS883SYTwwZ zhHnAmaCTxC6drebKKYZ6nFkuf dGQ+JLDnIZW7vBeiYUxeUBCw zS1tAUKvC2z2GnObTdU5XFtsF5 YipuO0OJAshADtYVVbhVHZsJ9i qxsdt5degeejNyInXJVkESf2 MTr8FZWenHbhZoZiYTS3HeT8HC U1gAOorC1yxGljtwteaD9tJrd+ RklOOjwvdGQ+YHStLXG3kHbi BQooIUXqaJ0tUEDhA1b0AgWqVo F2OErcL7VouiG9XHSasMFaSNGw lYWZhI5koelpw8znphorKyNb UARwFSf0OUx0JMUjjWlmZaGkIU Z5BsF4TNC2gJYfgR1yvNczvpto nV0qBbs+TVJOOjwvdGQ+PHRk ZNX1zRoyCXoaVUHqxR3aXHTbU7 y2CoXpAjR0QRveQ5QlzyV7EDZp xBTeSVVqtXXSzA5wpwstm4hl fcuuHjYrJKZiRGy4WQq8QFJhaH kiJrOnIFG3NvC0AKB9tPAliC5a lVobogccqK5dFko+ZHA0BUA4 RH43UA43D8OuZrgsuMRhgFQ+PH RhYmxlIHdpZHRoPScxMDAlJyBz uOkvCD1xEw2bHRNrBHYiuNgt cHNl (more content not included)... Normal [facility] Operative Reporton Operative Report Patient: [...] preparations for the proposed operation continued.. Normal [facility] Comment on above: Result Comment: [...] list: All Problems Arthritis / SNOMED CT 5669338 / Confirmed Diabetes mellitus / SNOMED CT 704204313 / Confirmed High cholesterol / SNOMED CT 87668282 / Confirmed High blood pressure / SNOMED CT 0933077270 / Confirmed Physical Examination Vital Signs 04/18/2021 [...] br/min br/min (more content not included)... Normal [facility] Comment on above: Result Comment: [...] Instructions, 900 mg Oral, Refills(s) 0, Neuropathy hydrochlorothiazide-lisino pril 12.5 mg-10 mg oral tablet: 1 tab(s), Oral, Daily, Refill(s) 0, High blood pressure metformin: 1,000 mg, Oral, BID, Refills(s) 0, Blood glucose morphine 15 mg oral tablet: 15 mg = 1 tab(s), Oral, BID, Refills(s) 0, Pain perphenazine 4 mg Tab: 4 mg = 1 tab(s), Oral, BID, Refills(s) 0, Agitation Problem list: All Problems Arthritis / SNOMED CT 3937485 / Confirmed Diabetes mellitus / SNOMED CT 884582800 / Confirmed High cholesterol / SNOMED CT 23816847 / Confirmed High blood pressure / SNOMED CT 8138233654 / Confirmed Histories Past Medical History: No active or resolved past medical history items have been selected or recorded. Family History: Hypertension Father Diabetes mellitus type 2 Mother Brother Metastatic cancer Father Procedure history: Spine orthopedic surgery, lumbar ([id number]). Spine orthopedic surgery, cervical ([id number]). Arthroscopic repair of rotator cuff ([id number]). Carpal tunnel release ([id number]). Appendectomy (962245172). Partial resection of colon ([id number]). Social History Social & Psychosocial Habits Alcohol [...] results Radiology results ECG interpretation Condition Plan [place] [employer] ([employer]A) physical status classification: Class III. Anesthetic Preoperative Plan Anesthesia: General. , Regional Interscalene Block. Anesthetic plan, risks, benefits, and alternatives discussed with the patient and/or family. Risks discussed: nausea, vomiting, headache, sore throat, dental injury, serious complications. Patient verbalized understanding. Communication: face to face with (patient 5 minutes, Pt educated on the importance of smoking cessation.). Normal [facility] Comment on above: Result Comment: Elec tronically Signed By: Christiano Linton Jr, DO\.br\Date and Time Signed: 04/23/21 08:08 EDT Auto Diffon 04-19-2021 Basophils/100 WBC (Bld) 0.4 % Normal 0.0-2.0 [facility] Comment on above: Order Comment: Order Added by Discern Expert. Performed By: #### [id number] #### [facility] [address] [place] [address] Basophils/Leukocytes Auto (Bld) [Pure # fraction] 0.0 E9/L Normal 0.0-0.2 [facility] Comment on above: Order Comment: Order Added by Discern Expert. Performed By: #### 1 [id number] #### [facility] [address] [place] [address]18[address] Eosinophils/100 WBC (Bld) 0.1 % Normal 0.0-8.0 [facility] Comment on above: Order Comment: Order Added by Discern Expert. Performed By: #### 1 [id number] #### [facility] [address] [place] [address] Eosinophils/Leukocyte s Auto (Bld) [Pure # fraction] 0.0 E9/L Normal 0.0-0.5 [facility] Comment on above: Order Comment: Order Added by Discern Expert. Performed By: #### 1 [id number] #### [facility] [address] [place] [address] 81045 Lymphocytes/100 WBC (Bld) 14.0 % Normal 14.0-50.0 [facility] Comment on above: Order Comment: Order Added by Discern Expert. Performed By: #### 1 [id number] #### [facility] [address] [place] [address]33[address] Lymphocytes/Leukocyte s Auto (Bld) [Pure # fraction] 1.7 E9/L Normal 1.0-4.0 [facility] Comment on above: Order Comment: Order Added by Discern Expert. Performed By: #### 1 [id number] #### [facility] [address] [place] [address] 32465 Monocytes/100 WBC (Bld) 5.9 % Normal 4.0-14.0 [facility] Comment on above: Order Comment: Order Added by Discern Expert. Performed By: #### 1 [id number] #### [facility] [address] [place] [address] Monocytes/Leukocytes Auto (Bld) [Pure # fraction] 0.7 E9/L Normal 0.2-1.0 [facility] Comment on above: Order Comment: Order Added by Discern Expert. Performed By: #### 1 [id number] #### [facility] [address] [place] [address] Neutrophils/100 WBC (Bld) 79.6 % High 36.0-75.0 [facility] Comment on above: Order Comment: Order Added by Discern Expert. Performed By: #### 1 [id number] #### [facility] [address] [place] [address] Neutrophils/Leukocyte s Auto (Bld) [Pure # fraction] 9.8 E9/L High 2.0-7.5 [facility] Comment on above: Order Comment: Order Added by Discern Expert. Performed By: #### 1 [id number] #### [facility] [address] [place] [address] BUNon 04-19-2021 Urea nitrogen [Mass/Vol] 19 mg/dL Normal 5-21 [facility] Comment on above: Performed By: #### 1 [id number] #### [facility] [address] [place] [address] CBC w/ Auto Diffon Erythrocyte distribution width (RBC) [Ratio] 13.1 % Normal 10.9-14.2 [facility] Comment on above: Performed By: #### 1 [id number] #### [facility] [address] [place] [address] Hematocrit (Bld) [Volume fraction] 42.1 % Normal 37.7-49.0 [facility] Comment on above: Performed By: #### 1 [id number] #### [facility] [address] [place] [address] Hemoglobin (Bld) [Mass/Vol] 14.0 g/dL Normal 13.5-17.5 [facility] Comment on above: Performed By: #### 1 [id number] #### [facility] [address] [place] [address] MCH (RBC) [Entitic mass] 31.5 pg Normal 27.0-34.0 [facility] Comment on above: Performed By: #### 1 [id number] #### [facility] [address] [place] [address] MCHC (RBC) [Mass/Vol] 33.3 g/dL Normal 31.4-36.0 [facility] Comment on above: Performed By: #### 1 [id number] #### [facility] [address] [place] [address] MCV (RBC) [Entitic vol] 94.4 fL Normal 80.0-100.0 [facility] Comment on above: Performed By: #### 1 [id number] #### [facility] [address] [place] [address] Platelet mean volume (Bld) [Entitic vol] 9.5 fL Normal 6.4-10.8 [facility] Comment on above: Performed By: #### 1 [id number] #### [facility] [address] [place] [address] Platelets (Bld) [#/Vol] 177.0 E9/L Normal 150.0-500.0 [facility] Comment on above: Performed By: #### 1 [id number] #### [facility] [address] [place] [address] RBC (Bld) [#/Vol] 4.5 E12/L Normal 4.3-5.9 [facility] Comment on above: Performed By: #### 1 [id number] #### [facility] [address] [place] [address] WBC corrected for nucl RBC Auto (Bld) [#/Vol] 12.3 E9/L High 4.0-11.0 [facility] Comment on above: Performed By: #### 1 [id number] #### [facility] [address] [place] [address] Capillary Glucose POCon 03-28 Glucose [Mass/Vol] 226 mg/dL High 55-99 [facility] Comment on above: Result Comment: Joanna daly RN/ Performed By: #### 2 [id number] #### [facility] [address] [place] [address] Glucose [Mass/Vol] 271 mg/dL High 55-99 [facility] Comment on above: Result Comment: Joanna daly RN/ Performed By: #### 2 [id number] ####[facility] [address] [place] [address] Consent for Anesthesiaon Consent for Anesthesia [id number]#[id number]:127 Normal [facility] Creatinineon 04-19-2021 Creatinine [Mass/Vol] 0.7 mg/dL Normal 0.5-1.3 [facility] Comment on above: Performed By: #### 1 [id number] #### [facility] [address] [place] [address] Discharge Instructionson Discharge Instructions [id number]#[id number]:127 Normal [facility] Inpatient Clinical Summaryon 04-19-2021 Inpatient Clinical Summary [address] [address] Clinical Summary Person Information: Name: KOOK MEIER Age: 60 Years : 1960 Sex: Male PCP: JOSH MELVIN DO Marital Status: Phone: [phone] Race: White Ethnicity: Non- or Language: Slovenian Visit Id: Visit Reason: OA RIGHT SHOULDER Speciality: Acuity: Enc Type: Inpatient Med Service: Surgery Arrival: 04/18/2021 08:03:48 Discharge: Dispo Type: Address: [address] [place] [id number] Provider Notes: Diagnosis: Arthritis of shoulder region, [...] times a day. gabapentin 900 mg Oral. hydrochlorothiazide-lisino pril (hydrochlorothiazide-lisin opril 12.5 mg-10 mg oral tablet) 1 Tablets [...] Follow up: With: Address: When: Kwame Yang [address] [place], [place] [id number] Business (1) 04/26/2021 2:45 PM Patient Education Information: Danyell Yang - Shoulder Replacement (Custom) [facility] Inpatient Patient Summaryon 04-19-2021 Inpatient Patient Summary [address] [address] Patient Discharge Instructions PERSON INFORMATION [...] Follow up: With: Address: When: Kwame Yang [address] [place] [address] [place] [address] Business (1) 04/26/2021 2:45 PM In the event that this physician does not participate in your insurance network, please consult with your insurance company to find a nearby participating provider. Comment: I, KOKO MEIER, have received the attached patient education materials/instructions and have verbalized understanding: Patient Signature __ Date Clinican/Nurse Signature Date HERE ARE THE MEDICATION CHANGES THAT OCCURRED DURING YOUR HOSPITAL STAY New Medications [facility], [address] [place] [id number], [phone] acetaminophen-oxycodone (Percocet 325 mg-5 mg Tab) 1-2 tab(s) Oral q4hr; as needed as needed for pain. Refills: 0. Last Dose: N ext Dose: docusate (Colace 100 mg Cap) 1 Capsules By Mouth 2 times a day as needed for constipation. Refills: 0. Last Dose: N ext Dose: meloxicam (meloxicam 15 mg Tab) 1 Tablets By Mouth every day. Refills: 0. Last Dose: N ext Dose: Medications to Continue with No Changes Other Medications atorvastatin (Lipitor) 40 Milligram By Mouth every day. Last Dose: N ext Dose: busPIRone 30 Milligram By Mouth 3 times a day. Last Dose: N ext Dose: duloxetine (Cymbalta) 60 Milligram By Mouth 2 times a day. Last Dose: N ext Dose: gabapentin 900 mg Oral. Last Dose: N ext Dose: hydrochlorothiazide-lisino pril (hydrochlorothiazide-lisin opril 12.5 mg-10 mg oral tablet) 1 Tablets By Mouth every day. Last Dose: N ext Dose: insulin degludec (Tresiba FlexTouch 200 units/mL subcutaneous solution) 75 Units Subcutaneous every day. Last Dose: N ext Dose: insulin isophane (Novolin N) 5 units AM 15 units NOON 30 units PM. Last Dose: N ext Dose: metformin 1,000 Milligram By Mouth 2 times a day. Last Dose: N ext Dose: morphine (morphine 15 mg oral tablet) 1 Tablets By Mouth 2 times a day. Last Dose: N ext Dose: perphenazine (perphenazine 4 mg Tab) 1 Tablets By Mouth 2 times a day. Last Dose: N ext Dose: No Longer Take the Following Medications [...] times a day. gabapentin 900 mg Oral. hydrochlorothiazide-lisino pril (hydrochlorothiazide-lisin opril 12.5 mg-10 mg oral tablet) 1 Tablets [...] times a day. (more content not included)... [facility] Interdisciplinary Note - Mir e Manageron 04-19-2021 Interdisciplinary Note - Pit Tanner PT is awake and alert in bed, [...] MADELINE received a phone call from hospital permanent mold supervisor Viri. States pt Ct called and [...] waiting for approval. MADELINE contacted pt Ct [phone] and updated. Viri, hospital permanent mold supervisor updated. [facility] Comment on above: Result Comment: Elec tronically Signed By: Petty KOO, Afia\.renard\Date and Time Signed: 04/19/21 15:36 EDT IntraOperative Documentson 0 04-19-2021 IntraOperative Documents [id number]#1.00CD:127 Normal [facility] IntraOperative Documents [id number]#1.00CD:127 Normal [facility] Lyteson 04-19-2021 Anion gap [Moles/Vol] 11 mmol/L Normal 6-16 [facility] Comment on above: Performed By: #### 2 [id number] #### [facility] [address] [place] [address] Chloride [Moles/Vol] 103 mmol/L Normal 101-111 [facility] Comment on above: Performed By: #### 2 [id number] #### [facility] [address] [place] [address] CO2 [Moles/Vol] 30 mmol/L Normal 21-31 [facility] Comment on above: Performed By: #### 2 [id number] #### [facility] [address] [place] [address] Potassium [Moles/Vol] 4.0 mmol/L Normal 3.5-5.3 [facility] Comment on above: Performed By: #### 2 [id number] #### [facility] [address] [place] [address] Sodium [Moles/Vol] 140 mmol/L Normal 135-145 [facility] Comment on above: Performed By: #### 2 [id number] #### [facility] [address] [place] [address] Message from Medicareon 03-28 Message from Medicare [id number]#1.00CD:127 Normal [facility] Patient Education - Texton 0 04-19-2021 Patient Education - Text [place], [place] [facility] DISCHARGE INSTRUCTIONS: SHOULDER REPLACEMENT [...] site, or the development of persistent vomiting. _ Kwame Yang, DO [facility] [address] [place] [address] Reviewed: [facility] Physician Orderon 04-19-2021 Physician Order [id number]#1.00CD:127 [facility] Preoperative Documentson Preoperative Documents [id number]#1.00CD:127 [facility] Preoperative Documents [id number]#1.00CD:127 [facility] Progress Note-Physicianon Progress Note-Physician Patient: KOKO [...] Pressure 80 mmHg SpO2 92 % Normal [facility] Comment on above: Result Comment: Elec tronically Signed By: Kwame Yang DO\.br\Date and Time Signed: 04/19/21 12:55 EDT eGFRon 04-19-2021 GFR/1.73 sq M.predicted among blacks MDRD (S/P/Bld) [Vol rate/Area] mL/min/{1.73_m2} Normal >=59 [facility] Comment on above: Order Comment: Order added by Discern Expert. Result Comment: eGFR is race adjusted. AA=. Performed By: #### 2 [id number] #### [facility] [address] [place] [address] GFR/1.73 sq M.predicted among non-blacks MDRD (S/P/Bld) [Vol rate/Area] mL/min/{1.73_m2} Normal >=59 [facility] Comment on above: Order Comment: Order added by Discern Expert. Result Comment: Flooring Salesperson aracely kidney disease could be indicated at eGFR's of less than 60 mL/min/1.73m2. Kidney failure is indicated at less than 15 mL/min/1.73m2. Performed By: #### 2 [id number] #### [facility] [address] [place] [address] ABO/Rhon 04-18-2021 ABO/Rh Positive Invalid Interpretation Code [facility] Comment on above: Performed By: #### 2 057005, [id number], [id number], [id number] ####[facility] [address] [place] [address] ABO/Rh History Checkon 04-18 ABO/Rh History Check Verified Hx Blood Type Normal [facility] Comment on above: Performed By: #### 2 [id number], [id number], [id number], [id number] ####[facility] [address] [place] [address] ABSC Tubeon 04-18-2021 ABSC Tube Interp Negative Normal [facility] Comment on above: Performed By: #### 2 130434, [id number], [id number], [id number] ####[facility] [address] [place] [address] Blood Bank ID#on 04-18-2021 BBID# [id number] Invalid Interpretation Code [facility] Comment on above: Performed By: #### 2 [id number], [id number], [id number], [id number] ####[facility] [address] [place] [address] Blood Bank Slipon 04-18-2021 Blood Bank Slip [id number]#1.00CD:127 Normal [facility] Capillary Glucose POCon 03-28 Glucose [Mass/Vol] 293 mg/dL [address] Comment on above: Result Comment: Eva dav Meter Performed By: #### 2 [id number] #### [facility] [address] [place] [address] Glucose [Mass/Vol] 312 mg/dL High [address] [place] [address] Comment on above: Result Comment: Joanna daly RN/ Performed By: #### 2 [id number] #### [facility] [address] [place] [address] Glucose [Mass/Vol] 241 mg/dL [facility] [address] Comment on above: Result Comment: Eva dav Meter Performed By: #### 2 [id number] #### [facility] [address] [place] [address] Consent for Procedure/Surger yon 04-18-2021 Consent for Procedure/Surgery [id number]#1.00CD:127 Normal [facility] Consent for Treatmenton 03-28 Consent for Treatment [id number]#1.00CD:127 Normal [facility] H&P Updateon 04-18-2021 H&P Update [id number]#1.00CD:127 Normal [facility] Main OR PACU I Recordon 03-28 Main OR PACU I Record PACU Phase I Docum ent Type FT Summary Primary Physician: Kwame Yang DO Finalized Date/Time: 04/18/21 16:44:21 Pt. Name: KOKO MEIER/Sex: 1960 Male Med Rec #: [id number] Physician: Kwame Yang DO Financial #: [id number] Pt. Type: O Room/Bed: [facility]/ Admit/Disch: 04/18/21 08:03:48 - Institution: Case Times [...] By: Keira Knox RN 04/18/21 16:44 Normal [facility] Monitor Recordon 04-18-2021 Monitor Record [id number]#1.00CD:127 Normal [facility] Operative Reporton Operative Report Patient: [...] 3. size 3 humeral insert 4. Revers Seaton size 9 stem with 39 (+2 right) [...] the gregg (more content not included)... Normal [facility] Comment on above: Result Comment: Elec tronically Signed By: Kwame Yang DO\.br\Date and Time Signed: 04/18/21 12:52 EDT Outpatient Surgery Discharge Instructionon 04-18-2021 Outpatient Surgery Discharge Instruction [place] [address] Patient Discharge Instructions PERSON INFORMATION Name: KOKO [...] was present when discharge instructions were given ____ Patient Signature _ Date Clinican/Nurse Signature Date Follow up: With: Address: When: [place] [address] Business (1) 04/26/2021 2:45 PM Pharmacy Information: You may receive a survey from [employer] asking you to rate your care experience. Your feedback is important and will help us understand what we do well and how we can improve the quality of care we provide to you, your loved ones and our community. It?s an honor to serve you. Thank you for choosing [facility] HERE ARE THE MEDICATION CHANGES THAT OCCURRED DURING YOUR HOSPITAL STAY Medications to Continue with No Changes Other Medications atorvastatin (Lipitor) 40 Milligram By Mouth every day. busPIRone 30 Milligram By Mouth 3 times a day. celecoxib (Celebrex) 200 Milligram By Mouth 2 times a day. duloxetine (Cymbalta) 60 Milligram By Mouth 2 times a day. gabapentin 900 mg Oral. hydrochlorothiazide-lisino pril (hydrochlorothiazide-lisin opril 12.5 mg-10 mg oral tablet) 1 Tablets [...] times a day. PATIENT EDUCATION INFORMATION Instructions: [place] [facility] DISCHARGE INSTRUCTIONS: SHOULDER REPLACEMENT [...] site, or the development of persistent vomiting. _ Kwame Yang, DO [facility] [address] [place] [address] Reviewed: Normal [facility] UA With Cult Reflexon 2020 Bilirubin Ql (U) Negative Normal Negative [facility] Comment on above: Performed By: #### 1 [id number] #### [facility] [address] [place] [address] Clarity (U) CLEAR Normal Clear [facility] Comment on above: Performed By: #### 1 [id number] #### [facility] [address] [place] [address] Color (U) YELLOW Normal Yellow [facility] Comment on above: Performed By: #### 1 [id number] #### [facility] [address] [place] [address] Epithelial cells.squamous LM.HPF (Urine sed) [#/Area] 0-2 Normal 0-2 [facility] Comment on above: Performed By: #### 1 [id number] #### [facility] [address] [place] [address] Glucose Test strip (U) [Mass/Vol] 2+ Abnormal Negative [facility] Comment on above: Performed By: #### 1 [id number] #### [facility] [address] [place] [address] Hemoglobin Ql (U) Negative Normal Negative [facility] Comment on above: Performed By: #### 1 1556531 #### [facility] [address] [place] [address] Ketones (U) [Mass/Vol] Negative Normal Negative [facility] Comment on above: Performed By: #### 1 [id number] #### [facility] [address] [place] [address] [place].plasma/Lithiu m.RBC (Bld) [Mass ratio] 0-3 Normal 0-3 [facility] Comment on above: Performed By: #### 1 [id number] #### [facility] [address] [place] [address] Mucus Ql (Urine sed) TRACE Normal [facility] Comment on above: Performed By: #### 1 [id number] #### [facility] [address] [place] [address] Nitrite Ql (U) Negative Normal Negative [facility] Comment on above: Performed By: #### 1 [id number] #### [facility] [address] [place] [address] pH (U) 6.0 [pH] Invalid Interpretation Code 5.0-9.0 [facility] Comment on above: Performed By: #### 1 [id number] #### [facility] [address] [place] [address] Protein (U) [Mass/Vol] TRACE Abnormal Negative [facility] Comment on above: Performed By: #### 1 2243656 #### [facility] [address] [place] [address] Specific gravity (U) [Rel density] 1.020 Invalid Interpretation Code 1.005-1.030 [facility] Comment on above: Performed By: #### 1 [id number] #### [facility] [address] [place] [address] Type of Urine collection method Cohn Normal [facility] Comment on above: Performed By: #### 1 [id number] #### [facility] [address] [place] [address] Urobilinogen Qn (U) 0.2 {Rolando'U}/dL Normal 0.0-1.0 [facility] Comment on above: Performed By: #### 1 [id number] #### [facility] [address] [place] [address] WBC Auto Ql (U) Negative Normal Negative [facility] Comment on above: Performed By: #### 1 5228942 #### [facility] [address] [place] [address] WBC LM.HPF (Urine sed) [#/Area] 0-5 Normal 0-5 [facility] Comment on above: Performed By: #### 1 [id number] #### [facility] [address] [place] [address] XR Shoulder Complete Righton 04-18-2021 XR Shoulder [...] MD Transcribed by: BECKY Technologist: CC, Normal [facility] Outside Recordson 04-17-2021 Outside Records [id number]#1.00CD:127 Normal [facility] Outside Recordson 04-09-2021 Outside Records [id number]#[id number]:127 Normal [facility] CT Upper Extremity w/o Contr [...] Jerome Warren MD Transcribed by: BECKY Technologist: [facility] Coding Summary.on 04-04-2021 Coding Summary. CD:[id number] Gh0bWw +PGhlYWQ+NG5WHWFoD76zfFQps V3VN4nLSQ0GYZIVDWUUCC1ELK9 gyEO9YQrmQ7WlnjVa MlsrpYJfKH37XHq7NDM6lLgiGG squP7paCNpW2q1DhYsXO73gB26 BFprQHFyAvB3YhSvvvxkmGCw R6pjXtNgpMBrZuu+PHRhYmxlIH crCMFqMQesLZQkGaJyzOggXM4y Rb7uHURxDMKbyIujgURpXvJm j9nxWXUxHJmgKY9ywUazG2YfyZ F8LDXju5a0Zu92lHF+PHRkIHN0 uEpwBZjel219YfItu7liWMD9 tTVaLZjzMHD0Y84yo5R5JRUdEQ AbYUN5kIN4jJ1kyIfjtybeA7Pb dJDdThW2IHA3bSYbfR0yzIei zmqgbI4dFqn+P67HCY1KNCXERL 0KYhc7Z8BsDsfwnSK+OZ58UQTu GZ25gMVkzXHcb5xvnZf3YrYy SGQzIPD6fJqwVQmgn4RcHSCwF0 3rhYUju0Z2ZOQefOubyLViBkRy jLT0sP3sDDcbtekax4jlhyje Atutb1kgkr05yV64H11uXCenXV BpMYO4QEApDWRasNzyhc6hrO5v Ii8+CJhkb2etj1ykoOe0VaMi UXBezdNahRtpIDB5x2MpJg69D5 AxuCzrk3DtHcp4sl24uDBpi4C0 sQP3LTjdSUXvlG4qVCweJwN7 NEXzGiVmjP12jBDxDRtdSv3ojG tigDdmKJ4iGVUvtmedDWJnpW2u MPEzpCStiNwkGZ0zJIBgmzbi c727CxXvYGI3TIVczCInN6IigP 0uNyVrEPAcUJZmW4RusVUnOOmd Y356NGthTeV3FUGydzBhE6Nd VHOyxNnlUcW2q4E9Lk9Aa6Cosr woBGE5YLdyXCB9RxV3TfLoBoG6 Z9HnQiq6ABUyzUuzWV9cA6Et FBDakrrxhquobFV6GHLeMDTuwR 61tHOsLPxgQo8ru9U1v255LYSy FJBtdK67Ij0ktGtuQSAgpGUV qM6ftrnjr2rdhytpAmNbYZJxJM t6ASw4MENzcTfoXzSeHSV1MlH9 FKX6qBRhjV7fsZjteuvyzB2f Oyc+G23yrO9qLAL4MEC6dhycQS MqnnHoGM53LI68T0NrZbuitODt bGU+BAAwhdAvaPnmLW4xNoJj m5aln8KqFEmpX7DgDIHwIRifIi r6FKVwELE6gDE9zQ6xLMLeMNew i5S4bTS0F7QjylApsl4co5rz TPPnBIehW12duPPok5X4BESshE Y7TGEvlLptDmGiyH65Pzo+PGNv lCqun5XeEyhno4vwr1swiWb4 XaKaUHXqacNzqPykGFC4r0KzJh 37S52zBEuoMOCgLIDuEJEzTGHn hKtjaa8wlP9zZx0+PGNvbCB3 vUO2tK5aSJUvUeZ5UGnjU516Xw QmhUZvEebxi1mqb3dfwUz5QcVc TJOhwsKlzLqqNTB0w2PnCd71 T04zSIzdSNFoCIDuLHKnICRqaT tztl4xkI2vNr0+UZ9zm4jfgl87 mT33iVA+OOKmVKG1bZqtPXvt DXYmcB5nISihEwP8MAWqOaGmqQ 75iGGnWHeaSi4srCutoFynZF3w VCXapbesu364JpVgq5kfREUg rFVbHPttYBP1P27vu4I6SPQtXB ScPGQ6aYP3xW6ekYnzrezwcDIf gRcyjdSziSkfUMuwSCklW903 IHRvcDsnPlBhdGllbnQgTmFtZT f2C1DnCxg8FUNtmVlfUQ4gaGTr SXehUc2ymSvgwAnbPI3gFGJc jglmb850NcUrg1hsXRJijMUxXA ooFHK9D02aa7O8ZNPrFGDnATJ8 fTU0kT3mjAfuhkfwyBXlvXex dzMyvElxGUwzRQqwK190FLIucN moIvLvkiDgDGGaqOT1RA41NM86 uARwx6Q9oQQ8M3RhSALbmnce telzkPO6FVFbCCHzwR03Vn2isW gqPt0jAHBdYYH9AFKoeIEvM4Kr rV3gGqWcNVQcHQFqF0QfoTHe MVosD564FPzdEeI0JUUyfhGpT1 WlTKCjrRlfTyG8d2C9Dx8QF1U4 BI59FG63qUYqi3A4bNG9X6Xw VTNhhdztibzodWI4ZQKfOFVhyD 86Fy4tzBujPg2sCOFaMCY3RKQf pUWuS2NuvC9rFtStSTWvNRVx T9RvcMNmBAgsW302OYrpNkU6DS GqmqZbE2UaGWHsuCpmQwB2g2R5 Ne8QBDk7AK76FP56mAAxi7K2 iMO1O1HcZLWcqcecztlviTK3BZ PwNBPrcK28Lv7yyJoiNl0vIPPg KKY3MYAemKXqI6RteD1nTgYq EBYwQTSkE6RplITvJLhrT478ZZ qrJwI9JTFiylYgR3DlGEEcnHfz VgC3j2T5Ye1RAWHuDD76GUY8 kUF2ZD52PG43D5KrMvmetNHwqW U+PHRhYmxlIHdpZHRoPScxMDAl GvIhxSklEX1wJp8hDKBrPTQv rSnirXZmZqOfi0meFNRrKNwiZM 0cpObwY2UewEF9PRYom7u5Gx72 U47vS3SpjLO+KYHkgNF4pJO4 bL3uIuDrGiB0VMgzW349BsUenM RfIwery4qqq6ihoFl3ZcJ2OTAu rnNoiEvzAGT4l8EtKj76O44u IHdpZHRoPSIxNSUiIHZhbGlnbj 0ujN4vJz1+YCLgoXX2vPA3lY3q FiMzIgX9HOzbY502HeHkoGLv Nggjb1raw5cekKj6BvAzOAFutg KsaUwzUUR2b7UtHp81N7QskGfx h2NzMie7hx02rWKqh0Q8pIZ2 N2BrCBIfdmqedAQnuTffCM7jMV BssvidEPSfjS8tOBRaM1f1DnDh SqA8MWgdP3OllrU4TZSloFVb ASrnTJD3X96ob3B1CSMpECJdCU N8eOW9wG4clJhrqzsnaPNhqUtn meNfrYpaGVtrGObnZ888IQHl cNcmRWSqqF0qPDIkdNTwwYvtUQ 1nEYYtzngbRoGSZO7HSICjRGlV RkZSRVkgUzwvdGQ+PHRkIHN0 aIlhBTatNNKcvB8dELXbJ5j6Ov PcEoD6LHfxW7QwVFIjkuqiDl45 uM7vZkSoIfH6ZJnhY2UzzsC8 DMGmgKKmUEikCKL7Z48ei0L4ED VmPCXiNXB5jCT6iD0muJhixtks bGVmdDsgdmVydGljYWwtYWxp L001DIHadFekIfQgEpFoYoU7AE f9C0WdJzo6MKVhcSftSY0ezEQp JMjkEj3gnTdpvTltFP4zVMMi oorzYXHofL2cKJAiwDUxjAdiGP 1oHGEkowmbi320KqTqIPS5RKKl eHLjG9TlfR9jYrRwHJCrQYQb W8QpcTNzLXyfM647PNpiVlE2LO VqkmIbI7VqHFFziKqmYzC8r6R2 Vo28EsIONLDuxngdgHI+PHRk YZT3sQgiXQkjDTDsoB9kEKWkP3 z2KwBlAxR6IRvaA3MzLQCnxwtt Vk28sF9oZkKlNzQ7BOecA4Ys riB4JBKweSKpMLatHYX7S84jw0 K2DVXcKLPuSYI7fCK8qO9tnBlp bjogbGVmdDsgdmVydGljYWwt HDlqD396WOBfbDhlFf5sdDR3R9 WaPeq0AWYhkJirKI2qlGWzXHnf Im3coJzywXyfUR0qQZHyiteq SLEhhF8kSBAwrTIyxTaaNA9bUB Mavrsas931IoYtHYA2FAKreAQf N8IitN2vFjVeBHQdOXKbO4Or tJBgYVamK532OSekXtX3ZJJlro YkS4JzGJIkiGqyFbP9g9Z3Hb8Q zZGaUTHqWP32EK99YC09O8Mi PjwvdGFibGU+PHRhYmxlIHdpZH ThDHgjKFKyDvRzuZrnAZ4jZh0r BUZhBGXcgYodlFInKwSkr7wj FGUcISvuKR9xyRvuQ5MioGU9NG Mhb0w5Bk46Z86qH4GhfNF+PGNv hXP6wAJ1uU2qCfDiWbY1JPvs H139UjGpxBGnGjeuc4yax8xxdM e9LhFkGJXhbtQivGdhEED7z5Ff Hg25O87kDRbwJVCyDFSxFKVu PCGxfFqlvd6vuU5uSz8+PGNvbC X6pNM3jG9gJrIlOqD7FDbiD941 IxSagHKsCnzzH11wR4BytNZ+ GTMbFca6JXQbnZgpBM7jeBWlFP bcZt3eEUY1XmMxLsFuOLmmL4Ql QWHxbvsvommwaZV9CXGtTNAj wH22Jo8vjFsyBm4cUZPcEOE2DX VmgTEnN2XzjZ3cKaFoTHTdXTAg L0OitVNaQMaoS311COgtFkQ6 SAMcotDmE5NkYWHhqYclQwF5j9 G4Cn2GsXmwiHQnRW2lXvHpVGh0 I4TiYps1KERzwCkqMM0rqGPm YFkgDx3orGetgFfxVI8lNQWwkc bue996MmBft7pmYRRohOIxBNuj NSM0M01mi7X6KHAxGJZyNMQ3 uMO3oQ6asCazwikirRTbfBxsaa JfdYuoYVadXYehM951LKAzoYzo PjUPFai0H9NgAcx8MOXfzRok VZ1xgYTpJDqnPe7faCdovHglOW 9fJBZgqbnpt036JgHfz5ztHDOm fCOmHRgrFMT7S49ir7L9TTUj WMZeHJX7qNR4gA4zvQmiwbzuuK KcbJcoryEauCtuCPvyCKqoT855 AQZkgAgfCb4AGxq6G8JvUqu9 XGWgfNaqQY2oeBBeMIfnGm3qvQ tzzLetYW2eUFYnkczok493UsGy z7ssSOLweKEjWFvnJYS2G46z u9Y6SRRuPFTlMBI0kOA8eO8gsE lnbjogbGVmdDsgdmVydGljYWwt XAllB398VQNcaHirEbQlnLMe OjwvdGQ+II78zv56R4ObClzgZf t2NCVuVNN5cZN5bP2eEJLgDGlt w5I4lGI5D0EeggTdyb8ra9hh YXBz (more content not included)... Normal [facility] Immunization Recordson 04-04 Immunization Records [id number]#1.00CD:127 Normal [facility] ABO/Rh Retypeon 04-03-2021 ABO/Rh Retype Interp Positive Invalid Interpretation Code [facility] Comment on above: Performed By: #### 1 [id number] ####[facility] [id number] [place] [id number] BUNon 04-03-2021 Urea nitrogen [Mass/Vol] 22 mg/dL High 5-21 [facility] Comment on above: Performed By: #### 1 [id number] #### [facility] [address] [place] [address] CBC w/Indiceson 04-03-2021 Erythrocyte distribution width (RBC) [Ratio] 12.7 % Normal 10.9-14.2 [facility] Comment on above: Performed By: #### 1 [id number] #### [facility] [address] [place] [address] Hematocrit (Bld) [Volume fraction] 47.4 % Normal 37.7-49.0 [facility] Comment on above: Performed By: #### 1 [id number] #### [facility] [address] [place] [address] Hemoglobin (Bld) [Mass/Vol] 16.1 g/dL Normal 13.5-17.5 [facility] Comment on above: Performed By: #### 1 [id number] #### [facility] [address] [place] [address] MCH (RBC) [Entitic mass] 31.8 pg Normal 27.0-34.0 [facility] Comment on above: Performed By: #### 1 [id number] #### [facility] [address] [place] [address] MCHC (RBC) [Mass/Vol] 34.1 g/dL Normal 31.4-36.0 [facility] Comment on above: Performed By: #### 1 [id number] #### [facility] [address] [place] [address] MCV (RBC) [Entitic vol] 93.2 fL Normal 80.0-100.0 [facility] Comment on above: Performed By: #### 1 [id number] #### [facility] [address] [place] [address] Platelet mean volume (Bld) [Entitic vol] 9.3 fL Normal 6.4-10.8 [facility] Comment on above: Performed By: #### 1 [id number] #### [facility] [address] [place] [address] Platelets (Bld) [#/Vol] 168.0 E9/L Normal 150.0-500.0 [facility] Comment on above: Performed By: #### 1 [id number] #### [facility] [address] [place] [address] RBC (Bld) [#/Vol] 5.1 E12/L Normal 4.3-5.9 [facility] Comment on above: Performed By: #### 1 [id number] #### [facility] [address] [place] [address] WBC corrected for nucl RBC Auto (Bld) [#/Vol] 8.0 E9/L Normal 4.0-11.0 [facility] Comment on above: Performed By: #### 1 [id number] #### [facility] [address] [place] [address] Consent for Treatmenton Consent for Treatment [id number]#1.00CD:127 Normal [facility] Creatinineon 04-03-2021 Creatinine [Mass/Vol] 0.7 mg/dL Normal 0.5-1.3 [facility] Comment on above: Performed By: #### 1 [id number] #### [facility] [address] [place] [id number] Glucoseon 04-03-2021 Glucose [Mass/Vol] 249 mg/dL High 55-199 [facility] Comment on above: Performed By: #### 1 [id number] #### [facility] [address] [place] [id number] [id number] 04-03-2021 HbA1c (Bld) [Mass fraction] 7.9 % High <=5.9 [facility] Comment on above: Performed By: #### 7 [id number] #### [facility] [address] [place] [address] Lyteson 04-03-2021 Anion gap [Moles/Vol] 15 mmol/L Normal 6-16 [facility] Comment on above: Performed By: #### 1 [id number] #### [facility] [address] [place] [address] Chloride [Moles/Vol] 94 mmol/L Low 101-111 [facility] Comment on above: Performed By: #### 1 [id number] #### [facility] [address] [place] [address] CO2 [Moles/Vol] 27 mmol/L Normal 21-31 [facility] Comment on above: Performed By: #### 1 [id number] #### [facility] [address] [place] [address] Potassium [Moles/Vol] 4.2 mmol/L Normal 3.5-5.3 [facility] Comment on above: Performed By: #### 1 [id number] #### [facility] [address] [place] [address] Sodium [Moles/Vol] 132 mmol/L Low 135-145 [facility] Comment on above: Performed By: #### 1 [id number] #### [facility] [address] [place] [address] XR Chest 2 Viewson XR Chest 2 [...] Transcribed by: BECKY Technologist: JOSE ELIAS Diaz [facility] eGFRon 04-03-2021 GFR/1.73 sq M.predicted among blacks MDRD (S/P/Bld) [Vol rate/Area] mL/min/{1.73_m2} Normal >=59 [facility] Comment on above: Order Comment: Order added by Discern Expert. Result Comment: eGFR is race adjusted. AA=. Performed By: #### 1 [id number] #### [facility] [address] [place] [address] GFR/1.73 sq M.predicted among non-blacks MDRD (S/P/Bld) [Vol rate/Area] mL/min/{1.73_m2} Normal >=59 [facility] Comment on above: Order Comment: Order added by Discern Expert. Result Comment: Flooring Salesperson aracely kidney disease could be indicated at eGFR's of less than 60 mL/min/1.73m2. Kidney failure is indicated at less than 15 mL/min/1.73m2. Performed By: #### 1 [id number] #### [facility] [address] [place] [address] Physician Orderon 03-01-2021 Physician Order [id number]#1.00CD:127 Normal [facility] Pre-Certification Formon Pre-Certification Form [id number]#1.00CD:127 Normal [facility] Physician Orderon 02-28-2021 Physician Order [id number]#1.00CD:127 Normal [facility] Coding Summary.on 12-21-2020 Coding Summary. CODING DATE: [facility] STATUS: Home (Routine DC) PAYOR: Medicare [...] CphT Date Saved: 12/21/2020 01:14 pm Normal [facility] CT Upper Extremity w/ Contra [...] Report Acromioclavicular Joint: Severe degenerative changes with fgrp-pg-[id number] contact, extensive subchondral cystic changes involving the [...] Contrast: None Contrast amount in ml's: 0 [facility] Consent for Treatmenton 11-28 Consent for Treatment [id number]#1.00CD:127 Normal [facility] Creatinineon 12-20-2020 Creatinine [Mass/Vol] 0.7 mg/dL Normal 0.5-1.3 [facility] Comment on above: Performed By: #### 2 [id number] #### [facility] [address] [place] [address] Physician Orderon 12-20-2020 Physician Order [id number]#1.00CD:127 Normal [facility] RAD - Consent to Procedureon 12-20-2020 RAD - Consent to Procedure [id number]#[id number]:127 Normal [facility] XR Inj Shoulder Arthrogram R [...] shoulder joint. Patient tolerated the procedure well. Cotton Dispatcher image shows minimal calcification adjacent to the [...] Dose: Ka,r in mGy = 21 Normal [facility] eGFRon 12-20-2020 GFR/1.73 sq M.predicted among blacks MDRD (S/P/Bld) [Vol rate/Area] mL/min/{1.73_m2} Normal >=59 [facility] Comment on above: Order Comment: Order added by Discern Expert. Result Comment: eGFR is race adjusted. AA=. Performed By: #### 2 [id number], [id number] #### [facility] [address] [place] [address] GFR/1.73 sq M.predicted among non-blacks MDRD (S/P/Bld) [Vol rate/Area] mL/min/{1.73_m2} Normal >=59 [facility] Comment on above: Order Comment: Order added by Discern Expert. Result Comment: Flooring Salesperson aracely kidney disease could be indicated at eGFR's of less than 60 mL/min/1.73m2. Kidney failure is indicated at less than 15 mL/min/1.73m2. Performed By: #### 2 [id number], [id number] #### [facility] [address] [place] [address] Physician Orderon 12-08-2020 Physician Order [id number]#1.00CD:127 [facility] Pre-Certification Formon Pre-Certification Form [id number]#1.00CD:127 [facility] Consent for Treatmenton Consent for Treatment [id number]#1.00CD:127 [facility] RAD - MISCon 12-05-2020 RAD - MISC [id number]#1.00CD:127 [facility] RAD - MRI Screening Formon 12-05-2020 RAD - MRI Screening Form [id number]#1.00CD:127 [facility] Physician Orderon 11-29-2020 Physician Order [id number]#1.00CD:127 [facility] Pre-Certification Formon Pre-Certification Form [id number]#1.00CD:127 [facility] Vital Signs Date Time Vital Sign Value Performing Clinician Facility 04-01-2024 09:01-0400 Body height 170.2 cm Maryann Rubalcava MD Work Phone: [facility] 04-01-2024 09:01-0400 Body mass index (BMI) [Ratio] 35.24 kg/m2 Maryann Rubalcava MD Work Phone: [facility] 04-01-2024 09:01-0400 Body weight 102.06 kg Maryann Rubalcava MD Work Phone: [facility] 04-01-2024 09:01-0400 Diastolic blood pressure 65 mm[Hg] Maryann Rubalcava MD Work Phone: [facility] 04-01-2024 09:01-0400 Heart rate 89 /min Maryann Rubalcava MD Work Phone: [facility] 04-01-2024 09:01-0400 Respiratory rate 20 /min Maryann Rubalcava MD Work Phone: [facility] 04-01-2024 09:01-0400 Systolic blood pressure 129 mm[Hg] Maryann Rubalcava MD Work Phone: [facility] 03-11-2024 11:16-0400 Body height 170.18 cm DO Josh Bunting Work Phone: 0(678)[phone] [place] [address] 03-11-2024 11:16-0400 Body mass index (BMI) [Ratio] 37.6 kg/m2 DO Josh Bunting Work Phone: 5(177)[phone] [place] [address] 03-11-2024 11:16-0400 Body weight 109 kg DO Josh Bunting Work Phone: 3(898)[phone] [place] [address] 01-19-2024 18:15-0400 Heart rate 90 /min DO Josh Bunting Work Phone: 5(694)[phone] [place] [address] 01-19-2024 18:15-0400 Inhaled oxygen flow rate 1 L/min DO Josh Bunting Work Phone: 6(631)[phone] [place] [address] 01-19-2024 18:15-0400 Respiratory rate 16 /min DO Josh Bunting Work Phone: 8(226)564-578158 [place] [address] 01-19-2024 18:15-0400 SaO2% (BldA) [Mass fraction] 92 % DO Josh Bunting Work Phone: [facility] 01-19-2024 18:00-0400 Diastolic blood pressure 65 mm[Hg] DO Josh Bunting Work Phone: [facility] 01-19-2024 18:00-0400 Systolic blood pressure 134 mm[Hg] DO Josh Bunting Work Phone: 8(297)[phone] [place] [address] 01-19-2024 17:26-0400 Body temperature 97.5 [degF] DO Josh Bunting Work Phone: [facility] 01-19-2024 13:53-0400 Body height 167.64 cm DO Josh Bunting Work Phone: [facility] 01-19-2024 13:53-0400 Body mass index (BMI) [Ratio] 38.7 kg/m2 DO Josh Bunting Work Phone: [facility] 01-19-2024 13:53-0400 Body weight 108.86 kg DO Josh Bunting Work Phone: [facility] 11-11-2023 10:37-0500 Body height 170.2 cm Maryann [...] 59 mm[Hg] DO Josh Bunting Work Phone: [facility] 11-03-2023 16:35-0500 Heart rate 91 /min DO Josh Bunting Work Phone: [facility] 11-03-2023 16:35-0500 Respiratory rate 16 /min DO Josh Bunting Work Phone: [facility] 11-03-2023 16:35-0500 SaO2% (BldA) [Mass fraction] 92 % DO Ojsh Bunting Work Phone: [facility] 11-03-2023 16:35-0500 Systolic blood pressure 117 mm[Hg] DO Josh Bunting Work Phone: [facility] 11-03-2023 15:41-0500 Body temperature 97.4 [degF] DO Josh Bunting Work Phone: [facility] 11-03-2023 15:11-0500 Inhaled oxygen flow rate 3 L/min DO Josh Bunting Work Phone: [facility] 11-03-2023 11:46-0500 Body height 170.18 cm DO Josh Bunting Work Phone: [facility] 11-03-2023 11:46-0500 Body mass index (BMI) [Ratio] 37.6 kg/m2 DO Josh Bunting Work Phone: [facility] 11-03-2023 11:46-0500 Body weight 109 kg DO Josh Bunting Work Phone: [facility] 10-14-2023 09:40-0500 Body height 170.18 cm Karime Nguyen Other [facility] 10-14-2023 09:40-0500 Body mass index (BMI) [Ratio] 37.9 kg/m2 Karime Nguyen Other [facility] [facility] Other 10-14-2023 09:40-0500 Body weight 109.77 kg Karime Marleni Other [facility] [facility] Other 10-14-2023 09:40-0500 Body weight 109.76 kg DO Josh Bunting Work Phone: [facility] 10-02-2023 09:10-0500 Body height 170.18 cm DO Josh Bunting Work Phone: [facility] 10-02-2023 09:10-0500 Body mass index (BMI) [Ratio] 37.3 kg/m2 DO Josh Bunting Work Phone: [facility] 10-02-2023 09:10-0500 Body weight 108 kg DO Josh Bunting Work Phone: [facility] 10-02-2023 08:53-0500 Body temperature 98.5 [degF] DO Josh Bunting Work Phone: [facility] 10-02-2023 08:53-0500 Diastolic blood pressure 82 mm[Hg] DO Josh Bunting Work Phone: [facility] 10-02-2023 08:53-0500 Heart rate 92 /min DO Josh Bunting Work Phone: [facility] 10-02-2023 08:53-0500 Respiratory rate 18 /min DO Josh Bunting Work Phone: [facility] 10-02-2023 08:53-0500 SaO2% (BldA) [Mass fraction] 95 % DO Josh Bunting Work Phone: [facility] 10-02-2023 08:53-0500 Systolic blood pressure 169 mm[Hg] DO Josh Bunting Work Phone: [facility] 09-16-2023 09:20-0500 Body height 170.18 cm Karime Nguyen Other [employer] Other 09-16-2023 09:20-0500 Body mass index (BMI) [Ratio] 37.59 kg/m2 Karime Nguyen Other [facility] Other 09-16-2023 09:20-0500 Body weight 108.86 kg Karime Nguyen Other [facility] Other 07-29-2023 16:43-0400 Body height 167.64 cm DO Josh Bunting Work Phone: [facility] 07-29-2023 16:43-0400 Body temperature 98 [degF] DO Josh Bunting Work Phone: [facility] 07-29-2023 16:43-0400 Body weight 104.32 kg DO Josh Bunting Work Phone: [facility] 07-29-2023 16:43-0400 Diastolic blood pressure 74 mm[Hg] DO Josh Bunting Work Phone: [facility] 07-29-2023 16:43-0400 Heart rate 99 /min DO Josh Bunting Work Phone: [facility] 07-29-2023 16:43-0400 Respiratory rate 24 /min DO Josh Bunting Work Phone: [facility] 07-29-2023 16:43-0400 SaO2% (BldA) [Mass fraction] 94 % DO Josh Bunting Work Phone: [facility] 07-29-2023 16:43-0400 Systolic blood pressure 141 mm[Hg] DO Josh Bunting Work Phone: [facility] 03-26-2023 11:26-0400 Heart rate 88 /min Donny Peralta APRN.CHANNEL ACCOUNT MANAGER Work Phone: [facility] 03-26-2023 11:26-0400 Respiratory rate 17 /min Donny Peralta APRN.CHANNEL ACCOUNT MANAGER Work Phone: [facility] 03-26-2023 11:26-0400 SaO2% (BldA) [Mass fraction] 98 % Donny Peralta APRN.CHANNEL ACCOUNT MANAGER Work Phone: [facility] 04-16-2022 09:30-0400 Body height 170.18 cm Kamsam Mccarthyban Other [facility] [facility] Other 04-16-2022 09:30-0400 Body temperature 97.6 [degF] Kamal Chaban Other [facility] [facility] Other 04-16-2022 09:30-0400 Diastolic blood pressure 78 mm[Hg] Kamal Chaban Other [facility] [facility] Other 04-16-2022 09:30-0400 Respiratory rate 20 /min Kamal Chaban Other [facility] [facility] Other 04-16-2022 09:30-0400 SaO2% (BldA) [Mass fraction] Kamal Chaban Other [facility] [facility] Other 04-16-2022 09:30-0400 Systolic blood pressure 154 mm[Hg] Kamal Chaban Other [facility] [facility] Other 01-08-2022 14:30-0400 Body height 170.18 cm Kamsam Chaban Other [facility] [facility] Other 01-08-2022 14:30-0400 Body mass index (BMI) [Ratio] 37.27 kg/m2 Kamsam Chaban Other [facility] [facility] Other 01-08-2022 14:30-0400 Body temperature 97.4 [degF] Kamal Chaban Other [facility] [facility] Other 01-08-2022 14:30-0400 Body weight 107.96 kg Mariel Mccarthyban Other [facility] [facility] Other 01-08-2022 14:30-0400 Diastolic blood pressure 72 mm[Hg] Mariel Chaban Other [facility] [facility] Other 01-08-2022 14:30-0400 Respiratory rate 20 /min Mariel Mccarthyban Other [facility] [facility] Other 01-08-2022 14:30-0400 SaO2% (BldA) [Mass fraction] 95 % Mariel Mccarthyban Other [facility] Other 01-08-2022 14:30-0400 Systolic blood pressure 130 mm[Hg] Mariel Mccarthyban Other [facility] [facility] Other 09-06-2021 10:00-0500 Body height 170.18 cm Mariel Mccarthyban Other [facility] [facility] Other 09-06-2021 10:00-0500 Body mass index (BMI) [Ratio] 37.59 kg/m2 Mariel Mccarthyban Other [facility] Other 09-06-2021 10:00-0500 Body temperature 96.8 [degF] Mariel Mccarthyban Other [facility] Other 09-06-2021 10:00-0500 Body weight 108.86 kg Mariel Mccarthyban Other [facility] Other 09-06-2021 10:00-0500 Diastolic blood pressure 68 mm[Hg] Mariel Chaban Other [facility] Other 09-06-2021 10:00-0500 Respiratory rate 20 /min Mariel Mccarthyban Other [facility] [facility] Other 09-06-2021 10:00-0500 SaO2% (BldA) [Mass fraction] 95 % Ulyssesal Chaban Other [facility] Other 09-06-2021 10:00-0500 Systolic blood pressure 136 mm[Hg] Mariel Chaban Other [facility] Other 07-23-2021 10:30-0400 Body height 170.18 cm Mariel Mccarthyban Other [facility] Other 07-23-2021 10:30-0400 Body mass index (BMI) [Ratio] 38.21 kg/m2 Mariel Mccarthyban Other [facility] Other 07-23-2021 10:30-0400 Body temperature 96.1 [degF] Mariel Mccarthyban Other [facility] Other 07-23-2021 10:30-0400 Body weight 110.68 kg Mariel Mccarthyban Other [facility] Other 07-23-2021 10:30-0400 Diastolic blood pressure 78 mm[Hg] Ulyssesal Chaban Other [facility] Other 07-23-2021 10:30-0400 Respiratory rate 20 /min Ulyssesal Chaban Other [facility] Other 07-23-2021 10:30-0400 SaO2% (BldA) [Mass fraction] 95 % Mariel Chaban Other [facility] Other 07-23-2021 10:30-0400 Systolic blood pressure 150 mm[Hg] Mariel Mcgraw Other [facility] Other Encounters Encounter Date Encounter Type Care Provider Facility Start: 05-17-2024 ambulatory JOSH RAY OLEGARIO [facility] Start: 05-17-2024 Evaluation and management of inpatient [facility] Start: 05-17-2024 ambulatory [facility] Start: 04-26-2024 End: 04-26-2024 ambulatory Savanna Mcclain MD Facility:[facility] Start: 04-21-2024 End: 04-21-2024 ambulatory BRYCE Celeste VUAura Not Available Start: 04-12-2024 End: 04-12-2024 ambulatory Savanna Mcclain MD Facility:[facility] Start: 04-09-2024 End: 04-09-2024 ambulatory FEROZ PATEL Not Available Start: 04-01-2024 End: 04-01-2024 Subsequent hospital visit by physician Par X-Ray [facility] Comment on above: Cervical myelopathy (Multi) Start: 04-01-2024 End: 04-01-2024 ambulatory [facility] Start: 04-01-2024 End: 04-01-2024 Office outpatient visit 40 minutes Maryann Rubalcava MD Work Phone: [facility] Comment on above: 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 (Primary Dx); Cervical myelopathy (Multi) Start: 04-01-2024 End: 04-01-2024 ambulatory [facility] Start: 03-31-2024 End: 03-31-2024 Patient encounter procedure DO Josh Melvin Work Phone: [facility] [address] [place] Work Phone: Start: 03-31-2024 End: 03-31-2024 ambulatory DO Josh Bunting Work Phone: [facility] Work Phone: Start: 03-15-2024 End: 03-15-2024 ambulatory Savanna Mcclain MD Facility:[facility] Start: 03-11-2024 End: 03-11-2024 Patient encounter procedure DO Josh Bunting Work Phone: [facility] Work Phone: Start: 02-25-2024 End: 02-25-2024 ambulatory YOGESH BECKER V Not Available Start: 02-16-2024 End: 02-16-2024 ambulatory Savanna Mcclain MD Facility:[facility] Start: 01-26-2024 End: 01-26-2024 ambulatory YOGESH BECKER V Not Available Start: 01-19-2024 End: 01-19-2024 Admission to same day surgery center DO Josh Bunting Work Phone: [facility] [place] Start: 01-19-2024 End: 01-19-2024 ambulatory DO Josh Bunting Work Phone: [facility] Work Phone: Start: 01-12-2024 End: 01-12-2024 Patient encounter procedure DO Josh Bunting Work Phone: [facility]Pre-Surgical Testing Work Phone: Start: 01-12-2024 End: 01-12-2024 ambulatory DO Josh Bunting Work Phone: [facility] Work Phone: Start: 01-12-2024 Encounter for preprocedural laboratory examination Yogesh Ray [facility] Start: 01-08-2024 End: 01-08-2024 ambulatory FEROZ PATEL Not Available Start: 01-06-2024 End: 01-06-2024 ambulatory YOGESH BECKER V Not Available Start: 12-16-2023 End: 12-16-2023 Patient encounter procedure DO Josh Bunting Work Phone: [facility] [address] Work Phone: Start: 12-16-2023 End: 12-16-2023 ambulatory DO Josh Bunting Work Phone: [facility] Work Phone: Start: 12-08-2023 End: 12-08-2023 ambulatory Savanna Mcclain MD Facility:[facility] Start: 11-25-2023 End: 11-25-2023 Patient encounter procedure DO Josh Bunting Work Phone: [facility] [place] Work Phone: Start: 11-25-2023 End: 11-25-2023 ambulatory DO Josh Bunting Work Phone: [facility] Work Phone: Start: 11-24-2023 End: 11-24-2023 Patient encounter procedure DO Josh Bunting Work Phone: [facility] [place] Work Phone: Start: 11-24-2023 End: 11-24-2023 ambulatory DO Josh Bunting Work Phone: [facility] Work Phone: Start: 11-17-2023 End: 11-17-2023 ambulatory Savanna Mcclain MD Facility:[facility] Start: 11-11-2023 End: 11-11-2023 ambulatory [facility] Start: 11-11-2023 End: 11-11-2023 Office consultation new/estab patient 80 min Maryann Rubalcava MD Work Phone: [facility] Comment on above: Cervical myelopathy (CMS/HCC) (Primary Dx); Sagittal plane imbalance; 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; Lumbar stenosis with neurogenic claudication Start: 11-10-2023 End: 11-10-2023 ambulatory YOGESH BECKER V Not Available Start: 11-03-2023 End: 11-03-2023 Admission to same day surgery center DO Ojsh Bunting Work Phone: [facility] Start: 11-03-2023 End: 11-03-2023 ambulatory DO Josh Bunting Work Phone: [facility] Work Phone: Start: 10-23-2023 End: 10-23-2023 Patient encounter procedure DO Josh Bunting Work Phone: [facility]Pre[facility]Surgical [facility] Work Phone: Start: 10-23-2023 End: 10-23-2023 ambulatory DO Josh Bunting Work Phone: [facility] Work Phone: Start: 10-14-2023 Office outpatient vi sit 40 minutes Karime Nguyen [facility] Start: 10-14-2023 End: 10-14-2023 ambulatory YOGESH BECKER V [facility] Other Start: 10-14-2023 End: 10-14-2023 Patient encounter procedure DO Josh Bunting Work Phone: [facility] Work Phone: Start: 10-09-2023 End: 10-09-2023 ambulatory FEROZ PATEL Not Available Start: 10-02-2023 End: 10-02-2023 Admission to same day surgery center DO Josh Bunting Work Phone: [facility] [place] Start: 10-02-2023 End: 10-02-2023 ambulatory DO Josh Bunting Work Phone: [facility] Work Phone: Start: 09-30-2023 End: 09-30-2023 ambulatory Savanna Mcclain MD Facility:[facility] Start: 09-29-2023 End: 09-29-2023 ambulatory Savanna Mcclain MD Facility:[facility] Start: 09-26-2023 End: 09-26-2023 ambulatory IMTIAZ ZAIDI Not Available Start: 09-23-2023 End: 09-23-2023 Patient encounter procedure DO Josh Bunting Work Phone: [facility] [employer] Work Phone: Start: 09-23-2023 End: 09-23-2023 ambulatory DO Josh Bunting Work Phone: [facility] Work Phone: Start: 09-22-2023 End: 09-22-2023 ambulatory Savanna Mcclain MD Facility: [facility] Start: 09-16-2023 End: 09-16-2023 ambulatory Karime Nguyen Other [facility] [employer] Other Start: 09-16-2023 Office outpatient ne w 45 minutes Karime Nguyen [facility] Start: 09-16-2023 End: 09-16-2023 Patient encounter procedure DO Josh Bunting Work Phone: [facility] Work Phone: Start: 08-11-2023 End: 08-11-2023 Patient encounter procedure DO Josh Bunting Work Phone: [facility] Work Phone: Start: 08-11-2023 End: 08-11-2023 ambulatory DO Josh Bunting Work Phone: [facility] Work Phone: Start: 08-01-2023 End: 08-01-2023 Patient encounter procedure DO Josh Bunting Work Phone: [facility] [place] Work Phone: Start: 08-01-2023 End: 08-01-2023 ambulatory Josh Bunting Facility:[facility] Start: 07-29-2023 End: 07-29-2023 Emergency department patient visit DO Josh Bunting Work Phone: [facility]-Emergency Room Work Phone: Start: 06-12-2023 End: 06-12-2023 ambulatory Mariel Mcgraw Other [employer] Other Start: 06-12-2023 Telephone encounter Mariel Mcgraw [facility] Start: 04-21-2023 End: 04-21-2023 Patient encounter procedure DO Josh Bunting Work Phone: [facility] Work Phone: Start: 04-21-2023 End: 04-21-2023 ambulatory DO Josh Bunting Work Phone: [facility] Work Phone: Start: 03-26-2023 End: 03-26-2023 ambulatory DONNY PERALTA Facility[facility] Start: 03-26-2023 End: 03-26-2023 Patient encounter procedure Donny Peralta PHARMACY TECHNICIAN ASSISTANT.CHANNEL ACCOUNT MANAGER Work Phone: Otolaryngology Comment on above: Laryngeal candidiasi s (Primary Dx); Glossitis; Oral candidiasis; Hoarseness of voice; History of alcohol abuse Start: 02-10-2023 End: 02-10-2023 ambulatory DO Josh Bunting Work Phone: [facility] Work Phone: Start: 02-10-2023 End: 02-10-2023 Patient encounter procedure DO Josh Bunting Work Phone: [facility] [place] Work Phone: Start: 12-31-2022 End: 12-31-2022 ambulatory DO Josh Bunting Work Phone: [facility] Work Phone: Start: 12-31-2022 End: 12-31-2022 Patient encounter procedure DO Josh Bunting Work Phone: [facility] C[facility]-CT [address] Work Phone: Start: 11-06-2022 End: 11-06-2022 ambulatory DO Josh Bunting Work Phone: [facility] Work Phone: Start: 11-06-2022 End: 11-06-2022 Patient encounter procedure DO Josh Bunting Work Phone: [facility] Work Phone: Start: 09-30-2022 End: 09-30-2022 ambulatory DO Josh Bunting Work Phone: [facility] Work Phone: Start: 09-30-2022 End: 09-30-2022 Patient encounter procedure DO Josh Bunting Work Phone: [facility] Start: 06-19-2022 End: 06-19-2022 Patient encounter procedure DO Josh Bunting Work Phone: [facility] Start: 06-05-2022 End: 06-05-2022 ambulatory Alexis Abdi Other [employer] Other Start: 06-05-2022 Telephone encounter Alexis Abdi [facility] Teller Coordinator Start: 04-16-2022 End: 04-16-2022 ambulatory Mariel Mcgraw Other [employer] Other Start: 04-16-2022 Office outpatient vi sit 25 minutes Mariel Mcgraw [facility] Start: 01-08-2022 End: 01-08-2022 ambulatory Kamal Chaban Other [employer] Other Start: 01-08-2022 Office outpatient vi sit 25 minutes Kamal Chaban [facility] Start: 12-07-2021 End: 12-07-2021 ambulatory Kamal Chaban Other [employer] Other Start: 12-07-2021 Telephone encounter Kamal Chaban [facility] Start: 11-09-2021 ([facility] C Vac) [facility] Co vid Vaccine Courtney Laminet [facility] Start: 11-09-2021 End: 11-09-2021 ambulatory Courtney Fitt Other [employer] Other Start: 09-06-2021 End: 09-06-2021 ambulatory Kamal Chaban Other [employer] Other Start: 09-06-2021 Office outpatient vi sit [...] or Tdap) [facility] Start: 06-27-2024 Influenza vaccination Influenz a Vaccine (Season Ended) [facility] Start: 04-01-2024 End: 10-01-2024 Enroll patient in spine cervical NO fusion care plan Enroll patient in spine cervical NO fusion care plan Procedures Routine Expected: 04/01/2024, Expires: 10/01/2024 [facility] Work Phone: Comment on above: Expected: 04/01/2024 , Expires: 10/01/2024 Start: 04-01-2024 End: 04-01-2025 XR Cervical spine 4 or 5 Views [facility] Service Area Work Phone: Comment on above: Expected: 04/01/2024 (Approximate), Expires: 04/01/2025 Once for 1 Occurrenc es starting 04/01/2024 until 04/01/2024 Start: 01-19-2024 End: 01-19-2024 [facility] Start: 11-24-2023 [facility] Start: 11-11-2023 End: 11-11-2024 MR Cervical spine WO contrast MR cervical spine wo IV contrast Imaging Routine Cervical myelopathy (CMS/HCC) Expected: 11/11/2023, Expires: 11/11/2024 [facility] Work Phone: Comment on above: Expected: 11/11/2023 , Expires: 11/11/2024 Start: 11-11-2023 End: 11-11-2024 X-ray scoliosis 2 View (NON EOS) [facility] Service Area Work Phone: Comment on above: Expected: 11/11/2023 , Expires: 11/11/2024 Start: 11-03-2023 [facility] Start: 11-03-2023 [facility] Start: 10-02-2023 Repair of left ingui nal hernia using surgical mesh OR Inguinal Hernia Repair W/Mesh Graft (Left) [facility] Start: 10-02-2023 End: 10-02-2023 [facility] Start: 06-27-2023 COVID-19 Vaccine ( season) COVID-19 Vaccine ( season) [facility] Start: 06-27-2023 Influenza vaccination C [facility] Start: 03-26-2023 End: 05-26-2023 Comprehensive metabolic 2000 panel - Serum or Plasma [facility] Work Phone: Comment on above: Expected: 03/26/2023 , Expires: 05/26/2023 Start: 10-27-2022 DEPRESSION ASSESSMENT DEPRESSION ASS ESSMENT [facility] Start: 01-04-2022 COVID-19 VACCINE (3 - Booster for Dereck series) COVID-19 VACCINE (3 - Booster for Dereck series) [facility] Start: 08-09-2020 Pneumococcal Vaccine : 65+ Years (2 - PCV) Pneumococcal Vaccine: 65+ Years (2 - PCV) [facility] Start: 08-09-2020 Pneumococcal Vaccine : 65+ Years (2 of 2 - PCV) Pneumococcal Vaccine: 65+ Years (2 of 2 - PCV) [facility] Start: 08-09-2020 Pneumococcal Vaccine : Pediatrics (0 to 5 Years) and At-Risk Patients (6 to 64 Years) (2 - PCV) Pneumococcal Vaccine: Pediatrics (0 to 5 Years) and At-Risk Patients (6 to 64 Years) (2 - PCV) [facility] Start: 2018 RSV patient s and/or patients aged 60+ years (1 - 1-dose 60+ series) RSV patients and/or patients aged 60+ years (1 - 1-dose 60+ series) [facility] Start: 2013 PROSTATE CANCER SCREENING DISCUSSION PROSTATE CANCER SCREENING DISCUSSION [facility] Start: 2008 SHINGRIX VACCINE (1 of 2) SHINGRIX VACCINE (1 of 2) [facility] Start: 2008 Zoster Vaccines (1 of 2) Zoste r Vaccines (1 of 2) [facility] Start: 2003 COLOGUARD (FIT-DNA) COLOGUARD (FIT-D NA) [facility] Start: 2003 Colonoscopy COLONOSCOPY [facility] Start: 2003 COLORECTAL CANCER SCREENING COLORECTAL CANCER SCREENING [facility] Start: [address] COLONOGRAPHY [facility] Start: 2003 DIABETES SCREEN DIABETES SCREEN [facility] Start: 2003 FECAL OCCULT BLOOD FECAL OCCULT BLOO D [facility] Start: [address] [facility] Start: 1993 LIPID SCREEN LIPID SCREEN [facility] Start: 1977 Urine microalbumin profile DTAP,TDAP,TD (1 - Tdap) [facility] Start: 1977 Urine screening for protein Diabetes: Urine Protein Screening [facility] Start: 1976 HEPATITIS C SCREENING HEPATITIS C [facility] Start: 1976 Hepatitis C screening Hepatitis C [facility] Start: 1976 HIV SCREENING HIV SCREENING [facility] Start: 1968 Diabetic foot examination Diabetes: [...] Hospital Start: 1958 HIV screening HIV Screening [facility] Start: 1958 Lipid panel Lipid Panel [facility] Start: 1958 Screening for malign ant neoplasm of colon [facility] Lopez w/o facetec foramot/dskc 1/2 vrt seg crv Laminectomy Cervical Cervical myelopathy (Multi) Cervical spinal 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 segment disease 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 procedure [facility] OR Methylmalonate [Moles/volume] in Serum or Plasma [facility] Patient Education [facility] Work Phone: Patient referral [facility] Work Phone: [facility] Immunizations Immunization Date Immunization Notes Care Provider Shannan canales 11-09-2021 COVID-19 (Moderna), Age 12+ DO Josh [email or web address] Work Phone: [facility] 11-09-2021 COVID-19 Sharad Espino Other [facility] 10-16-2021 influenza, injectabl e, quadrivalent, contains preservative Maryann Rubalcava MD Work Phone: [facility] Work Phone: 10-16-2021 influenza virus vaccine, unspecified formulation Maryann Rubalcava MD Work Phone: [facility] Work Phone: 01-04-2021 COVID-19 (J&J) DO Josh Bunting Work Phone: [facility] 01-04-2021 COVID-19 Vaccine Dereck - Documentation Purposes Only Ulyssessam Mariluz Other [facility] 08-18-2020 Seasonal, quadrivalent, recombinant, injectable influenza vaccine, preservative free Maryann Rubalcava MD Work Phone: [facility] 07-27-2020 influenza, seasonal, injectable Maryann Rubalcava MD Work Phone: [facility] 11-11-2019 tetanus toxoid, reduced diphtheria toxoid, and acellular pertussis vaccine, adsorbed Ulyssessam Mariluz Other [employer] Other 08-16-2019 influenza, seasonal, injectable, preservative free [...] 07-29-2017 influenza, injectable,quadrivalen t, preservative free, pediatric Ulyssessam Mariluz Other [employer] Other 10-14-2009 pneumococcal polysaccharide vaccine, 23 valent Maryann Rubalcava MD Work Phone: [facility] Work Phone: NEGATED: Highlighted row has not occurred!10-03-2017 influenza, injectable,quadrivalen t, preservative free, pediatric Ulyssesal Mariluz Other [employer] Other Payers Date Payer Category Payer Self-pay [id number] 2022 Private Health Insurance 2021 Medicare [id number] [id number] 2021 Medicare [id number] [id number] .[id number] 2021 Medicare [id number] 2.16.840.1.092245.19 2021 Medicare [id number] 2.16.840.1.305933.19 1958 Unknown [id number] 2.16.840.1.949136.3.579.2.125 9 1958 Unknown [id number] 2.16.840.1.406669.3.579.2.125 9 1958 Unknown [id number] 2.16.840.1.682276.3.579.2.125 9 1958 Unknown [id number] 2.16.840.1.992584.3.579.2.125 9 1958 Unknown [id number] 2.16.840.1.551940.3.579.2.125 9 1958 Unknown [id number] 2.16.840.1.591022.3.579.2.125 9 1958 Unknown [id number] 2.16.840.1.470105.3.579.2.125 9 1958 Unknown [id number] 2.16.840.1.561797.3.579.2.125 9 1958 Unknown [id number] 2.16.840.1.637005.3.579.2.125 9 1958 Unknown [id number] 2.16.840.1.168703.3.579.2.125 9 1958 Unknown [id number] 2.16.840.1.716038.3.579.2.196 1958 Unknown [id number] 2.16.840.1.125663.3.579.2.196 1958 Unknown [id number] 2.16.840.1.301306.3.579.2.196 1958 Unknown [id number] 2.16.840.1.986266.3.579.2.196 1958 Unknown [id number] 2.16.840.1.063546.3.579.2.196 1958 Unknown [id number] 2.16.840.1.293260.3.579.2.196 1958 Unknown [id number] 2.16.840.1.844565.3.579.2.196 1958 Unknown [id number] 2.16.840.1.540788.3.579.2.196 1958 Unknown [id number] 2.16.840.1.190966.3.579.2.196 1958 Unknown [id number] 2.16.840.1.282552.3.579.2.196 1958 Unknown [id number] 2.16.840.1.913812.3.579.2.124 7 1958 Unknown [id number] 2.16.840.1.609265.3.579.2.124 7 1958 Unknown [id number] 2.16.840.1.137726.3.579.2.124 2 1958 Unknown [id number] 2.16.840.1.445258.3.579.2.124 2 1958 Unknown [id number] 2.16.840.1.766170.3.579.2.124 2 1958 Unknown [id number] 2.16840.1.505200.3.579.2.124 2 1958 Unknown [id number] 2.16.840.1.486728.3.579.2.124 5 Medicare Medicare [id number] Medicare MMO MCR Adv PFFS [id number] Medicare [employer] MCR [id number] Unknown [id number] 2.16.840.1.384714.3.579.2.531 Unknown [id number] 2.16.840.1.118025.3.579.2.531 Unknown [id number] 2.16840.1.441645.3.579.2.531 Unknown [id number] 2.16.840.1.211407.3.579.2.531 Unknown [id number] 2.16.840.1.948357.3.579.2.531 Unknown [id number] 2.16.840.1.147174.3.579.2.531 Unknown [id number] 2.16.840.1.251051.3.579.2.531 Unknown [id number] 2.16.840.1.940686.3.579.2.531 Unknown [id number] 2.16.840.1.579323.3.579.2.531 Unknown [id number] 2.16.840.1.662315.3.579.2.531 Unknown [id number] 2.16.840.1.359533.3.579.2.531 Unknown [id number] 2.16.840.1.711750.3.579.2.531 Unknown [id number] 2.16840.1.186345.3.579.2.531 Unknown [id number] 2.16.840.1.148401.3.579.2.531 Worker's Compensation [employer] [facility] [id number] Social History Date Type Detail Facility Start: 11-11-2023 End: 04-01-2024 Sex Assigned At [facility] Other Start: 05-22-2021 End: 05-22-2021 Tobacco smoking status NHIS Smoker (finding) [facility] Start: 1960 Sex Assigned At Male F [facility] Start: 03-26-2023 End: 01-19-2024 Tobacco smoking status LAIS Ex-smoker [facility] History of tobacco use Cigarette Smoker [facility] Start: 03-26-2023 End: 11-11-2023 Tobacco use and exposure Smokeless tobacco non-user [facility] Start: 03-26-2023 Alcohol intake Current drinke r of alcohol (finding) [facility] Start: 03-26-2023 Alcohol Comment social [facility] Start: 1960 [facility] Start: 11-11-2023 Tobacco smoking status LAIS Never smoked tobacco [facility] Work Phone: Start: 11-01-2023 End: 04-01-2024 Exposure to SARS-CoV-2 (event) Not sure [facility] Start: 11-11-2023 End: 04-01-2024 History of Social function [facility] Work Phone: Medical Equipment Procedure Code Equipment Code Equipment Origin al Text Equipment Identifier Dates Repair, hernia, ventral, with mesh Abdominal hernia surgical mesh, composite-polymer [id number] FDA Start: 01-19-2024 Repair, hernia, inguinal, with mesh Abdominal hernia surgical mesh, synthetic polymer, non-bioabsorbable ()[id number] FDA Start: 11-03-2023 [id number] Start: 08-14-2023 Goals Date Patient Goal Desired Activity /State Personal health goal Clinical Notes 04-17-2021 to 04-01-2024 Maryann Rubalcava MD - 04/01/2024 9:00 AM Carmen Rubalcava MD - 11/11/2023 10:00 AM EST Note Date & Type Note Facility 04-01-2024 History of Present illness Narrative It was a pleasure to see Mr. Meier at the Neurosurgery Spine Clinic at [facility]. Patient is a 62-year-old male [...] groups. 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 Even in the supine pastry decorator CT for patient has a flatback deformity. [...] the further treatment plan. Maryann Rubalcava MD, [facility] Technician of Neurological Surgery [facility] [employer] Attending Surgeon Director - Minimally Invasive Spine Surgery [place], [place] ---Some of this note was completed using [employer] voice recognition technology and sometimes the software misinterprets words. This may include unintended errors with respect to translation of words, typographical errors or grammar errors which may not have been identified prior to finalization of the chart note. Please take this into account when reading this note--- documented in this encounter [facility] Work Phone: 11-11-2023 History of Present illness Narrative It was a pleasure to see Mr. Meier at the Neurosurgery Spine Clinic at [facility]. Patient is a 62-year-old male [...] L2-L3 and L1-L2. Even in the supine pastry decorator CT for patient has a flatback deformity. [...] All questions were answered. Maryann Rubalcava MD, [facility] Technician of Neurological Surgery [facility] [employer] [facility] Attending Surgeon Director - Minimally Invasive Spine Surgery [place], [place] Some of this note was completed using [employer] voice recognition technology and sometimes the software [...] region with neurogenic claudication (ICD-10 - M48.062) [facility] [facility] Other 12-05-2023 NoteProcedure Performed by: Savanna Mcclain M.D. Procedure: Placement of RotoHog Impulse Generator Battery under fluoroscopic guidance *Battery [...] condition. Electronically signed by Johny MATUTE, Savanna Cacereschepejoslynedison 09/30/23 13:12 [facility] 09-30-2023 NoteHistory of Present Illness The [...] signed by Savanna Mcclain MD 09/30/23 13:10 [facility] 09-16-2023 Evaluation note* Encounter Date Diagnosis [...] weeks. Aug, Lumbar radiculopathy (ICD-10 - M54.16) [facility] [facility] Other 08-17-2023 Evaluation note* Encounter Date Diagnosis Assessment Notes Treatment Notes Treatment Clinical Notes May, Gastroesophageal ref lux disease, unspecified whether esophagitis present (ICD-10 - K21.9) [facility] [facility] Other 05-31-2023 NoteHNO ID: [id number] Author: Donny Peralta APRN.CHANNEL ACCOUNT MANAGER Service: ? Author Type: Nurse Practitioner Type: Progress Notes Filed: 03/26/2023 4:15 PM Note Text: Mr. Meire is a 62 year old male who [...] 2 to 3 weeks time. Donny Peralta APRN.CHANNEL ACCOUNT MANAGER CC: Josh Melvin [facility]05-31-2023 History of Present illness Narrative* Donny [...] 2 to 3 weeks time. Donny Peralta APRN.CHANNEL ACCOUNT MANAGER CC: Josh Melvin DO [facility]* Encounter Date Diagnosis Assessment Notes Treatment Notes Treatment Clinical Notes Mar, Obstructive sleep ap dee (ICD-10 - G47.33) Please get a compliance report now and before next visit Mar, Gastroesophageal ref lux disease, unspecified whether esophagitis present (ICD-10 - K21.9) Mar, Lung nodule (ICD-10 - R91.1) [facility] [facility] Other 03-15-2022 Evaluation note* Encounter Date Diagnosis [...] be after his CT in 1 year [facility] Other 01-14-2022 Evaluation note* Encounter Date Diagnosis Assessment Notes Treatment Notes Treatment Clinical Notes Oct, Encounter for immunization (ICD-10 - Z23) Patient presents for COVID-19 vaccination BOOSTER. Pre-screening form answers evaluated with patient. Patient denies current illness or allergic reaction to component of COVID-19 vaccine. Patient provided with current copy of EUA. [facility] Other 09-27-2021 Evaluation note* Encounter Date Diagnosis Assessment Notes Treatment Notes Treatment Clinical Notes Jun, Lung nodule (ICD-10 - R91.1) Jun, Chronic cough (ICD-1 0 - R05) Jun, Obstructive sleep ap dee (ICD-10 - G47.33) Jun, Gastroesophageal ref lux disease, unspecified whether esophagitis present (ICD-10 - K21.9) [facility] Other 06-24-2021 NotePatient: KOKO MEIER Age: 60 [...] mg, 1 tab(s), Oral, BID, 0 [facility]) [facility]Result Comment: Electronically Signed By: Kwame Yang DO\.br\Date and Time Signed: 04/19/21 12:56 EDT 04-17-2021 [id number]:[id number] noteNo InformationNort [employer] Other Evaluation noteNortBASH Gaming Other Evaluation noteNo assessment information available [facility] Work Phone: Evaluation note* Diagnosis Laryngeal candidiasis- Primary Other candidiasis of other specified sites Glossitis Oral candidiasis Candidiasis of mouth Hoarseness of voice Dysphonia History of alcohol abuse Nondependent alcohol abuse, in remission [facility] Cervical myelopathy (CMS/HCC)- Primary Cervical spondylosis with myelopathy Sagittal plane imbalance Other curvatures of spine associated with other conditions 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 Lumbar stenosis with neurogenic claudication documented in this encounter [facility] Work Phone: Evaluation note* Diagnosis Onset Date Resolution Status Cervical stenosis of spine a cute History of fusion of cervical spine acute History of lumbar fusion acu te Neurogenic claudication due to lumbar spinal stenosis acute [facility] Work Phone: Evaluation note* Diagnosis Cervical spinal 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 segment disease 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 procedure- Primary Cervical myelopathy (Multi) Cervical spondylosis with myelopathy documented in this encounter [facility] Work Phone: Evaluation note* Diagnosis Cervical myelopathy (Multi) Cervical spondylosis with myelopathy documented in this encounter [facility] Work Phone: History general Narrative - Reported* Type Description Date Medical History Diabetes Medical History Arthritis Medical History Asthma Medical History Hyperlipidemia Medical History Hypertension Medical History Depression Medical History Anxiety Surgical History Procedure:small bowel resection 2006 Surgical History Procedure:Back surgery 2006 Surgical History Procedure:Carpal tunnel release 2003 Surgical History Procedure:eye exam 2013 Surgical History extraction of 14 teeth 2016 Surgical History extraction of 14 teeth 08/2017 Surgical History neck Surgical History reattached tip of right little finger 10/2019 Hospitalization History see sx history [facility] Other Hisukxm general Narrative - ReportedNortBASH Gaming Other History general Narrative - Reported* Type [...] finger 10/2019 Hospitalization History see sx history [facility] Other Hospital Discharge instructions Additional Instructions Please call Dr. Becker' office to reschedule your surgery.[facility] Work Phone: Hospital Discharge instructions Additional Instructions 1. No driving if taking narcotic pain medication. 2. No lifting more than 20 pounds for 3 weeks. 3. May shower.[facility] Work Phone: Hospital Discharge instructions Additional Instructions 1. No driving if taking narcotic pain medication. 2. No lifting more than 20 pounds for 4 weeks. 3. May shower. 4. Can use abdominal binder as needed for comfort.[facility] Work Phone: Progress note Author Yogesh Becker [facility] October 02, 2023 9:46am Note Date/Time October 02, 2023 9 :46am [facility] [address] [place] [address] Progress Note Signed Patient: Koko Meier MR#: [id number] : 1960 Acct:[id number] Age/Sex: 62 / M Adm Date: 3 Loc: ID Room: Type: [facility] Attending Dr: Yogesh Becker MD Copies to: ~ Date of Service: 10/02/2023 Progress Narrative Note PROGRESS NOTE Progress Note: Patient's tox screen today is positive for cocaine. Surgery will be canceled. Patient is told to call the office this afternoon to reschedule the surgery. Documented By: Yogesh Becker MD 10/02/2345 Signed By: <Electronically signed by MD Yogesh Becker> 10/02/23 0946 [facility] Work Phone: Summary Purpose Family History [...] Referred To Contact Radiology Diagnoses Cervical myelopathy (CMS/[facility]) Procedures MR cervical spine [place] [id number] Department [place] [address] Referral ID Status Reason Start Date Expiration Date Visits Requested Visits Authorized Pending Review Perform Procedure 11/11/2023 11/10/2024 1 1 Specialty Diagnoses / Procedures Referred By Contac t Referred To Contact Radiology Diagnoses Sagittal plane imbalance Procedures X-ray scoliosis 2 View (NON EOS) [place] [address] [address] Department [place] [address] Referral ID Status Reason Start Date Expiration Date Visits Requested Visits Authorized Authorized Perform Procedure 11/11/2023 11/10/2024 1 1 Reason surgical consult Diagnosis 1 Lumbar myelopathy (G 95.9) Referral Organization [facility] Referring Provider First Name Karime Referring Provider Last Name Marleni Referring Provider Specialty Nurse Pract itioner Referred Organization [facility] Referred Provider MARYANN RUBALCAVA [place] Address [address] [place], [place] Referred Provider Specialty Neurosurgery Referral Priority Routine General Notes Juana Scanlon 03:14:14 PM >received today, holding referral until office note is locked Juana Scanlon 10/16/2023 08:38:30 AM >note not locked yet Reason evaluate and treat Diagnosis 1 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) Referral Organization [facility] Referring Provider First Name Karime Referring Provider Last Name Marleni Referring Provider Specialty Nurse Pract itioner Referred Organization [facility] Referred Address [address],[place], [place],[address] Referred Provider Specialty Physical The rapist Referral Priority Routine Additional Source Comments (unrecognized sect ion and content) No Status Records FoundNo Status Records FoundNo Status Records FoundNo Status Records FoundNo Status Records FoundNo Status Records FoundNo Status Records FoundNo Status Records FoundNo Status Records Found INFORMATION SOURCE (unrecogn ized section and content) DATE CREATED AUTHOR 04/27/2021 John Lopes [facility] DATE CREATED AUTHOR AUTHOR'S ORGANIZ ATION 04/15/2023 [facility] DATE CREATED AUTHOR AUTHOR'S ORGANIZ ATION 04/14/2024 [facility] DATE CREATED AUTHOR AUTHOR'S ORGANIZ ATION 04/22/2024 [facility] DATE CREATED AUTHOR AUTHOR'S ORGANIZ ATION 04/29/2024 [facility] DATE CREATED AUTHOR AUTHOR'S ORGANIZ ATION 05/14/2024 [facility] DATE CREATED AUTHOR AUTHOR'S ORGANIZ ATION 05/18/2024 [facility] DATE CREATED AUTHOR AUTHOR'S ORGANIZ ATION 05/19/2024 [facility] DATE CREATED AUTHOR AUTHOR'S ORGANIZ ATION 05/19/2024 [facility] REASON FOR VISIT (unrecogniz ed section and content) Reason Comments Mouth lesion on left side Specialty Diagnoses / Procedures Referred By Contact Referred To Contact Ent - Otolaryngology / ENT-OTOLARYNGOLOGY Diagnoses Mouth Lesion on Left side of jaw Procedures NEW [facility] PATIENT Josh Melvin, DO [address] [place] [address] Donny Peralta, PHARMACY TECHNICIAN ASSISTANT.[facility] [address] [address] Referral ID Status Reason Start Date Expiration Date V isits Requested Visits Authorized [id number] Authorized 03/25/2023 10/26/2023 99 99 Reason Comments Neck Pain Back Pain Reason Comments Back Pain Specialty Diagnoses / Procedures Referred By Contac t Referred To Contact Radiology Diagnoses Cervical myelopathy (Multi) Procedures XR cervical spine complete 4-[place] [address] [address] Department [place] [address] Referral ID Status Reason Start Date Expiration Date Visits Requested Visits Authorized [id number] Authorized Perform Procedure 04/01/2024 04/01/2025 1 1 Care Teams (unrecognized sec tion and content) Team Status: Inactive Member Role Status Dates Joshana Velascoting , DO Primary Care Provider, Attending P brittani Active Team Status: Active Member Role Status Dates Josh Bunting , DO Primary Care Provider Active Team Status: Inactive Member Role Status Josh Bunting , DO Primary Care Provider Active Flip Diamond Attending Provider Active Team Status: Inactive Member Role Status Dates Josh ting , DO Primary Care Provider Active Yunier Ariza MD Attending Provider Active Team Status: Inactive Member Role Status Josh ting , DO Primary Care Provider Active Mariel Mcgraw MD Attending Provider Active Team Status: Inactive Member Role Status Josh , DO Primary Care Provider Active Errol Humphrey MD Attending Provider Active Team Status: Inactive Member Role Status rin , DO Primary Care Provider Active Nery Casanova PATIENT SAFETY ATTENDANT- Emergency Provider Active Team Status: Inactive Member Role Status rin , DO Primary Care Provider Active Savanna Mcclain MD Attending Provider Active Team Status: Inactive Member Role Status rin , DO Primary Care Provider Active Yogesh Becker MD Attending Provider Active Team Status: Inactive Member Role Status Dates SHARRON Colindres Attending Provider Active Start: September 16, 2023 End: September 16, 2023 Team Status: Inactive Member Role Status Dates Josh , DO Primary Care Provider Active Start: September 23, 2023 End: September 23, 2023 Yogesh Becker MD Attending Provider Active Sta rt: September 23, 2023 End: September 23, 2023 Team Status: Inactive Member Role Status Josh , DO Primary Care Provider Active Start: October 02, 2023 End: October 02, 2023 Yogesh Becker MD Attending Provider Active Sta rt: October 02, 2023 End: October 02, 2023 Team Status: Inactive Member Role Status Dates SHARRON Colindres Attending Provider Active Start: October 14, 2023 End: October 14, 2023 Team Status: Inactive Member Role Status Dates Josh , DO Primary Care Provider Active Start: October 23, 2023 End: October 23, 2023 Yogesh Becker MD Attending Provider Active Sta rt: October 23, 2023 End: October 23, 2023 Team Status: Inactive Member Role Status Dates Josh , DO Primary Care Provider Active Start: [...] 2024 Team Status: Inactive Member Role Status Letha Melvin DO Primary Care Provider Active Start: [...] March 31, 2024 End: March 31, 2024 Horse Doctor Relationship Specialty Start Date End Date Josh Melvin DO [address] [facility] [place] [address] PCP - General Family Medicine 04/01/24 Horse Doctor Relationship Specialty Start Date End Date Javi Melvinrin DO Kasi [address] [facility] [place] [address] PCP - General Family Medicine 04/01/24 Goals [...] or prosecute any alcohol or drug abuse patient.[facility] FOR RECORDS PERTAINING TO PATIENTS WHO [...] BE BASED ON THE PRIMARY CLINICAL RECORDS. [employer] [facility]. provides no warranty or guarantee of the accuracy or completeness of information in this document.
--- NOTE | 2024-05-20 09:30 | P.CN_ITS ---
Consult Note: HPI Data of Consult Patient: known to practice within the last 3 years Requesting Physician: Rosemary Kwon NP Primary Care Provider: JOSH MELVIN Consult Narrative Reason for consult: f/u Narrative: Koko Hernandez a pleasant 63 year old male presents for evaluation of chronic pain. Today pain in neck 2/10 and 8/10 in low back, increasing to 9/10 with standing twisting bending lifting activity, improved with medications, sitting, heat. Patient continues to find benefit from SCS. Patient denies loss of bowel/bladder. Patient finds mild benefit from cymbalta 60mg daily, gabapentin 600mg 1.5 pills TID, flexeril 10mg TID PRN. Recently underwent left and right C3/4 C4/5 RFA with >50% improvement ongoing. Since last visit patient now following with NS at in [place] and has a C4-6 laminectomy next week. cc:: CC: Rosemary Kwon NP Review of Systems 2 ROS0 Status of ROS 10 or more systems reviewed and unremark able except as noted in history and below Musculoskeletal Reports: back pain and extremity pain PFSH PFSH Medical History Fusion of spine, cervical region ?M43.22 - Fusion of spine, cervical region (ICD-10) Lumbar post-laminectomy syndrome ?M96.1 - Postlaminectomy syndrome, not elsewhere classified (ICD-10) Anxiety ?F41.9 - Anxiety disorder, unspecified (ICD-10) HTN (hypertension) ?I10 - Essential (primary) hypertension (ICD-10) High cholesterol ?E78.00 - Pure hypercholesterolemia, unspecified (ICD-10) Diabetes ?E11.9 - Type 2 diabetes mellitus without complications (ICD-10) Diverticulosis ?K57.90 - Diverticulosis of intestine, part unspecified, without perforation or abscess without bleeding (ICD-10) Surgical History History of shoulder surgery ?Z98.890 - Other specified postprocedural states (ICD-10) History of colon resection ?Z90.49 - Acquired absence of other specified parts of digestive tract (ICD- 10) History of lumbar surgery ?Z98.890 - Other specified postprocedural states (ICD-10) Social History Gender Identity: male Meds Home Medications and Allergies Home Medications ?Medication ?Instructions ?Recorded ?Confirmed ?Type atorvastatin 40 mg tablet 40 mg PO DAILY 08/14/23 04/26/24 History buspirone 30 mg tablet 30 mg PO TID 08/14/23 04/26/24 History celecoxib 200 mg capsule 200 mg PO DAILY 08/14/23 04/26/24 History cyclobenzaprine 10 mg tablet 10 mg PO TID 08/14/23 04/26/24 History duloxetine 60 mg capsule,delayed 60 mg PO BID 08/14/23 04/26/24 History release empagliflozin 10 mg tablet 10 mg PO DAILY 08/14/23 04/26/24 History (Jardiance) insulin aspart U-100 100 unit/mL 1 sliding scale dose subcut 08/14/23 04/26/24 History (3 mL) subcutaneous pen (Novolog USEASDIRECTD FlexPen U-100 Insulin aspart) insulin degludec 200 unit/mL (3 40 unit subcut DAILY 08/14/23 04/26/24 History mL) subcutaneous pen (Tresiba FlexTouch U-200 insulin) lisinopril 20 1 tab PO DAILY 08/14/23 04/26/24 History mg-hydrochlorothiazide 12.5 mg tablet metformin 1,000 mg tablet 1,000 mg PO DAILY 08/14/23 04/26/24 History omeprazole 40 mg capsule,delayed 40 mg PO DAILY 08/14/23 04/26/24 History release gabapentin 600 mg tablet 900 mg PO TID 02/06/24 04/26/24 History Allergies Allergy/AdvReac Type Severity Reaction Status Date / Time No Known Drug Allergies Allergy Verified 04/12/24 07:21 Exam Constitutional Documenting provider has reviewed patient's vital signs: yes Common normals: no apparent distress, oriented x3, healthy appearing, alert and well nourished General appearance: cooperative HENMT Common normals: normocephalic, hearing grossly normal bilaterally and moist oral mucous membranes Head and scalp: normocephalic Eye Common normals: PERRL Pupil: PERRL Neck & C-Spine Common normals: full ROM General: normal visual inspection Cervical spine: cervical ROM normal, normal cervical lordosis and paracervical muscle tenderness Other: negative facet loading bilaterally sensation intact in BUE, strength 5/5 negative hoffmans negative spurlings. no radiculopathy Chest Common normals: inspection of chest normal Respiratory Common normals: normal respiratory effort, no retractions and no use of accessory muscles Back & Pelvis Lumbar spine/lower back: ROM limited, pain with ROM, straight leg raise positive right and straight leg raise positive left Sacroiliac joints: SI joint(s) abnormal Other: left positive nessa(patricks), gaenslens, thigh thrust, compression test sensation altered in BLE strength 5/5 in BLE Back image (male): 2 1. moderate pain Extremity Common normals: normal to inspection and full ROM Neuro Common normals: oriented x3, CN's II-XII intact bilaterally, moves all extremities, no focal motor deficits, no sensory deficits noted, deep tendon reflexes 2+ bilaterally and gait normal Sensorium/orientation: alert Motor exam: strength 5/5 throughout and no movement abnormalities noted Psych Common normals: mental status grossly normal, thought process normal, cooperative, affect normal, speech normal and activity/motor behavior normal Speech: normal speech Thought process: normal thought process Assessment and Plan Assessment and Plan (1) Cervical spondylosis: (2) Cervical post-laminectomy syndrome: (3) Cervical stenosis of spinal canal: (4) Cervicalgia: (5) Lumbar postlaminectomy syndrome: (6) Lumbar stenosis with neurogenic claudication: (7) Status post insertion of spinal cord stimulator: (8) Sacroiliitis: Plan continue f/u with NS defer ESIs at this time finding mild relief from SCS encouraged to reach out to [employer] to adjust settings continue current medications, tolerating well without side effects f/u 3 months, sooner if needed
== END 2024-05-20 09:00 | disposition home or self-care (01) ==
LOC: PM 09:00
PROVIDERS: PCP Family Medicine; Visit Provider Nurse Practitioner
DX: M47.812 Spondylosis without myelopathy or radiculopathy, cervical region (principal); M96.1 Postlaminectomy syndrome, not elsewhere classified; M48.02 Spinal stenosis, cervical region; M54.2 Cervicalgia; M48.062 Spinal stenosis, lumbar region with neurogenic claudication; M46.1 Sacroiliitis, not elsewhere classified; Z96.82 Presence of neurostimulator
CPT/HCPCS: G0463

== ENCOUNTER 2024-07-15 12:50 | Outpatient (OUT) | payer MEDICARE, SELFPAY ==
--- NOTE | 2024-07-15 13:56 | PM.CN ---
Consult Note: HPI Data of Consult Patient: known to practice within the last 3 years Requesting Physician: Rosemary Kwon NP Primary Care Provider: JOSH MELVIN Consult Narrative Reason for consult: f/u Narrative: Koko Hernandez a pleasant 63 year old male presents for evaluation of chronic pain. Today pain in neck 5/10 in low back and legs, increasing to 9/10 with standing twisting bending lifting activity, improved with medications, sitting, heat. Patient continues to find mild benefit from SCS. Patient denies loss of bowel/bladder. Patient finds mild benefit from cymbalta 60mg daily, gabapentin 600mg 1.5 pills TID, flexeril 10mg TID PRN. Patient has an upcoming lumbar surgery end of august, extensive back surgery and removal of spinal cord stimulator. cc:: CC: Rosemary Kwon NP Review of Systems ROS Status of ROS 10 or more systems reviewed and unremarkable except as noted in history and below PFSH PFS Medical History Fusion of spine, cervical region ?M43.22 - Fusion of spine, cervical region (ICD-10) Lumbar post-laminectomy syndrome ?M96.1 - Postlaminectomy syndrome, not elsewhere classified (ICD-10) Anxiety ?F41.9 - Anxiety disorder, unspecified (ICD-10) HTN (hypertension) ?I10 - Essential (primary) hypertension (ICD-10) High cholesterol ?E78.00 - Pure hypercholesterolemia, unspecified (ICD-10) Diabetes ?E11.9 - Type 2 diabetes mellitus without complications (ICD-10) Diverticulosis ?K57.90 - Diverticulosis of intestine, part unspecified, without perforation or abscess without bleeding (ICD-10) Surgical History History of shoulder surgery ?Z98.890 - Other specified postprocedural states (ICD-10) History of colon resection ?Z90.49 - Acquired absence of other specified parts of digestive tract (ICD-10) History of lumbar surgery ?Z98.890 - Other specified postprocedural states (ICD-10) Social History Gender Identity: male Meds Home Medications and Allergies Home Medications ?Medication ?Instructions ?Recorded ?Confirmed ?Type atorvastatin 40 mg tablet 40 mg PO DAILY 08/14/23 04/26/24 History buspirone 30 mg tablet 30 mg PO TID 08/14/23 04/26/24 History celecoxib 200 mg capsule 200 mg PO DAILY 08/14/23 04/26/24 History cyclobenzaprine 10 mg tablet 10 mg PO TID 08/14/23 04/26/24 History duloxetine 60 mg capsule,delayed 60 mg PO BID 08/14/23 04/26/24 History release empagliflozin 10 mg tablet 10 mg PO DAILY 08/14/23 04/26/24 History (Jardiance) insulin aspart U-100 100 unit/mL 1 sliding scale dose subcut 08/14/23 04/26/24 History (3 mL) subcutaneous pen (Novolog USEASDIRECTD FlexPen U-100 Insulin aspart) insulin degludec 200 unit/mL (3 40 unit subcut DAILY 08/14/23 04/26/24 History mL) subcutaneous pen (Tresiba FlexTouch U-200 insulin) lisinopril 20 1 tab PO DAILY 08/14/23 04/26/24 History mg-hydrochlorothiazide 12.5 mg tablet metformin 1,000 mg tablet 1,000 mg PO DAILY 08/14/23 04/26/24 History omeprazole 40 mg capsule,delayed 40 mg PO DAILY 08/14/23 04/26/24 History release gabapentin 600 mg tablet 900 mg PO TID 02/06/24 04/26/24 History Allergies Allergy/AdvReac Type Severity Reaction Status Date / Time No Known Drug Allergies Allergy Verified 04/12/24 07:21 Exam Constitutional Documenting provider has reviewed patient's vital signs: yes Common normals: no apparent distress, oriented x3, healthy appearing, alert and well nourished General appearance: cooperative [facility] Common normals: normocephalic, hearing grossly normal bilaterally and moist oral mucous membranes Head and scalp: normocephalic Eye Common normals: PERRL Pupil: PERRL Neck & C-Spine Common normals: full ROM Chest Common normals: inspection of chest normal Respiratory Common normals: normal respiratory effort, no retractions and no use of accessory muscles Back & Pelvis Lumbar spine/lower back: ROM limited, pain with ROM, straight leg raise positive right and straight leg raise positive left Sacroiliac joints: SI joint(s) abnormal Other: left positive nessa(patricks), gaenslens, thigh thrust, compression test sensation altered in BLE strength 5/5 in BLE Extremity Common normals: normal to inspection and full ROM Neuro Common normals: oriented x3, CN's II-XII intact bilaterally, moves all extremities, no focal motor deficits, no sensory deficits noted and deep tendon reflexes 2+ bilaterally Sensorium/orientation: alert Motor exam: strength 5/5 throughout and no movement abnormalities noted Psych Common normals: mental status grossly normal, thought process normal, cooperative, affect normal, speech normal and activity/motor behavior normal Speech: normal speech Thought process: normal thought process Results Additional Findings Additional findings: If on a controlled substance or opioids, I have checked an [place] report on this patient and there are no aberrancies noted in the prescribing history.??If on a controlled substance or opioid a drug screen was completed and reviewed within the last year, and if there has not been a drug screen completed we ordered one today to monitor higher risk, state monitored pain medication use. As part of providing excellent, safe, comprehensive care, the following was completed at our patient's visit: 1. A medication reconciliation and review to ensure accurate knowledge of current/active medications, including asking our patients to inform us about any ultt-oeb-uxtrpii medications or herbal remedies/nutritional supplements/alternative remedies. 2. A review to specifically ensure our patients have had annual screening for screening for depression, screening for tobacco use, and screening for unhealthy alcohol use. For concerning screenings had a discussion with the patient, provided patient education, and recommended follow-up with primary care provider when appropriate. If patient noted with a risk of falling, they received education on strength, gait, and balance training to prevent future risk of falling. Assessment and Plan Assessment and Plan (1) Lumbar stenosis with neurogenic claudication: (2) Lumbar postlaminectomy syndrome: (3) Lumbar radiculopathy: (4) Sacroiliitis: (5) Cervical spondylosis: (6) Cervical post-laminectomy syndrome: (7) Cervicalgia: (8) Thoracic back pain: Plan caudal JARED under fluoroscopy, ok to proceed per NS notes, risks vs benefits reviewed continue current medications continue f/u with NS f/u 2 weeks after JARED
== END 2024-07-15 12:51 | disposition home or self-care (01) ==
LOC: PM 12:51
PROVIDERS: PCP Family Medicine; Visit Provider Nurse Practitioner
DX: M48.062 Spinal stenosis, lumbar region with neurogenic claudication (principal); M96.1 Postlaminectomy syndrome, not elsewhere classified; M54.16 Radiculopathy, lumbar region; M46.1 Sacroiliitis, not elsewhere classified; M47.812 Spondylosis without myelopathy or radiculopathy, cervical region; M54.2 Cervicalgia; M54.6 Pain in thoracic spine
CPT/HCPCS: G0463

== ENCOUNTER 2024-07-26 08:16 | Day surgery (SDC) | payer MEDICARE, SELFPAY ==
--- OUTSIDE RECORDS SUMMARY | 2024-07-26 08:22 | XMS_ITS | CCD ---
Author Organization [facility] ion Partnership [facility] Care Team Providers Care Hr Leader Name Role Phone Mariel Mcgraw Unavailable Courtney Espino Unavailable Bunting, DO Josh Primary Care Provider Flip Diamond Attending Provider Alexis Abdi Unavailable Bunting, DO Josh Primary Care Provider Bunting, DO Josh Attending Provider MD Yunier Ariza Attending Provider Bunting, DO Josh Primary Care Provider MD Mariel Mcgraw Attending Provider [phone] Bunting, DO Josh Primary Care Provider [phone] MD Mariel Mcgraw Attending Provider MD Errol Humphrey Attending Provider [phone] Unavailable Primary Care Provider Unavailabl e DONNY PERALTA Attending Unavailable BUNTING, JOSH RAY Referring Unavailable DONNY PERALTA Referring Unavailable Bunting, DO Josh Primary Care Provider Bunting, DO Josh Attending Provider Bunting, DO Josh Primary Care Provider Edilberto REGULATORY LEADER- Nery Hankins Emergency Provider Bunting, DO Josh Attending Provider MD Savanna Mcclain Attending Provider Bunting, DO Josh Primary Care Provider Edilberto, REGULATORY LEADER- Nery E Emergency Provider [phone] Bunting, DO Josh Attending Provider MD Savanna Mcclain Attending Provider MD Yogesh Becker Attending Provider [phone] Karime Nguyen Unavailable Bunting, DO Josh Primary Care Provider [phone] Unavailable Primary Care Provider Unavailabl e Bunting, DO Josh Primary Care Provider [phone] Bunting, DO Josh Attending Provider MD Oliver Kerr Referring Provider MD Oliver Kerr Attending Provider MD Maryann Rubalcava Attending Provider Bunting, DO Josh Primary Care Provider MD Yogesh Becker Attending Provider Bunting, DO Josh Attending Provider MD Oliver Kerr Referring Provider MD Oliver Kerr Attending Provider MD Maryann Rubalcava Attending Provider Bunting, DO Josh Primary Care Provider [phone] MD Yogesh Becker Attending Provider MD Maryann [...] Attending Unavailable Becker, Yogesh Admitting Unavailable Becker, Yoegsh Attending Unavailable Bunting, Josh Primary Care Unavailable Becker, Yogesh Admitting Unavailable Becker, Yogesh Attending Unavailable Bunting, Josh Primary Care Unavailable Becker, Yogesh Attending Unavailable Becker, Yogesh Admitting Unavailable Bunting, Josh Primary Care Unavailable Bullimore, Nery E Attending Unavailable Bunting, Josh Primary Care Unavailable Bullimore, Nery E Admitting Unavailable Bunting, Josh Primary Care Unavailable Bunting, Josh Attending Unavailable Bunting, Josh Admitting Unavailable Espanola, Oliver Referring Unavailable Bunting, Josh Attending Unavailable Bunting, Josh Admitting Unavailable Bunting, Josh Primary Care Unavailable Bunting, Josh Primary Care Unavailable Espanola, Oliver Attending Unavailable [place]spanola, Oliver Admitting Unavailable Bunting, Josh Primary Care Unavailable Kasliwal, Maryann K Admitting Unavailable Kasliwal, Maryann K Attending Unavailable Giedraitis MD, Andrius Vytautas Attending Unavailable Giedraitis MD, Andrius Vytautas Attending Unavailable Giedraitis MD, Andrius Vytautas Attending Unavailable Giedraitis MD, Andrius Vytautas Attending Unavailable Giedraitis MD, Andrius Vytautas Attending Unavailable Giedraitis MD, Andrius Vytautas Attending Unavailable Giedraitis MD, Andrius Vytautas Attending Unavailable Giedraitis MD, Andrius Vytautas Attending Unavailable Giedraitis MD, Andrius Vytautas Attending Unavailable Giedraitis MD, Andrius Vytautas Attending Unavailable KASLIWAL, MARYANN K Attending Unavailable KASLIWAL, MARYANN K Referring Unavailable KASLIWAL, MARYANN K Admitting Unavailable KASLIWAL, MARYANN K Attending Unavailable BUNTING, JOSH RAY Primary Care Unavailable VINOD LOCO Attending Unavailable BUNTING, JOSH RAY Primary Care Unavailable KASLIWAL, MARYANN K Referring Unavailable BUNTING, JOSH RAY Primary Care Unavailable KASLIWAL, MARYANN K Admitting Unavailable KASLIWAL, MRAYANN K Attending Unavailable BUNTING, JOSH RAY Primary Care Unavailable BECKER Morris, YOGESH Attending Unavailable BUNTING, JOSH R Referring Unavailable BECKER Morris, YOGESH Attending Unavailable FEROZ PATEL Attending Unavailable BUNTING, JOSH R Referring Unavailable BECKER V, YOGESH Attending Unavailable BECKER Morris, YOGESH Attending Unavailable IMTIAZ ZAIDI Attending Unavailable KARIME NGUYEN Referring Unavailable PETFEROZ PORTILLO Attending Unavailable BRYCE URENA Attending Unavailable BUNTING, JOSH R Referring Unavailable DAMARI TOWNSEND Attending Unavailable FEROZ PATEL Attending Unavailable FEROZ PATEL Attending Unavailable BECKER V, YOGESH Attending Unavailable KASLIWAL, MARYANN K Attending Unavailable BUNTING, JOSH RAY Primary Care Unavailable KASMARYANN FREEMAN K Referring Unavailable BUNTING, JOSH RAY Primary Care Unavailable KASLIWAL MARYANN K Attending Unavailable BUNTING, JOSH RAY [...] Comment on above: take 1 capsule by [facility] twice a day Oral for 28 Days clotrimazole 10 mg oral lozenge (1 source) Azole Antifungal Start: End: clotrimazole (MYCELEX) 10 mg bud Use 1 Bud as instructed four times daily for 14 days. 56 tablet 0 03/26/2023 04/09/2023 Active Comment on above: Use 1 Bud as inst ructed four times daily for 14 days. Cpap (Continuous Positive Airway Pressure) (1 source) Start: 024 Cpap (Continuous Positive Airway Pressure) Active 0 .ROUTE July 06, 2024 12:00am As directed [facility] [employer] cyclobenzaprine hydrochloride 10 mg oral tablet (17 sources) Muscle Relaxant Start: 023 take 10 mg by mouth three times daily Cyclobenzaprine Active 10 MG PO Three times daily September 23, 2023 1:00am take 1 tablet by [facility] every twenty-four hours Cyclobenzaprine HCl 10 MG 1 tablet at bedtime as needed Orally Once a day Active Comment on above: Take 10 mg by mouth three times daily. docusate sodium 100 mg oral capsule (3 [...] Active Start: 04-20-2019 take 1 capsule by [facility] twice daily Duloxetine (Cymbalta) 60 mg Capsule,Delayed Release(Dr/Ec) Active 60 MG PO Twice daily April 20, 2019 12:00am Start: 04-20-2019 Duloxetine (Cy mbalta) 60 mg Capsule,Delayed Release(Dr/Ec) Active 30 MG PO Twice daily April 20, 2019 12:00am take 1 capsule by mo [facility] every twenty-four hours DULoxetine HCl 60 MG 1 capsule Orally Once a day Active Comment on above: 1 capsule q 12 HR. empagliflozin 10 mg oral tablet (15 sources) Sodium-Glucose Cotransporter 2 Inhibitor Start: 07-01-20 take 1 tablet by mouth once daily in the morning Empagliflozin (Jardiance) 10 mg Tablet Active 10 MG PO Every morning September 23, 2023 1:00am empagliflozin (J ARDIANCE) 10 mg tablet Take 10 mg by mouth. 0 Active Comment on above: Take 10 mg by mouth. famotidine 20 mg oral tablet (1 source) Histamine-2 Receptor Antagonist Start: 07-06-2024 take 20 mg by mouth once daily at bedtime Famotidine Active 20 MG PO Daily at bedtime July 06, 2024 12:00am FreeStyle René reader (FreeStyle René 2 Raymond) misc (3 sources) Start: 07-25-2023 End: 07-24-2024 FreeStyle René reader (FreeStyle René 2 Raymond) misc 1 each by Does not apply route every 14 (fourteen) days. 07/25/2023 07/24/2024 Active Start: 07-25-2023 End: 07-24-2024 FreeStyle René reader (Free Style René 2 Raymond) misc 1 each by Does not apply [...] on above: Take 1 capsule by mo [facility]. hydroCHLOROthiazide 12.5 mg / lisinopril 20 mg oral tablet (20 sources) Thiazide Diuretic, Angiotensin Converting Enzyme Inhibitor Start: 09-23-20 take 1 tablet by mouth once daily in the morning Lisinopril-Dorado chlorothiazide Active 1 TAB PO Every morning [...] time. hydrOXYzine pamoate 25 mg oral capsule (15 sources) Antihistamine Start: take 25 mg by mouth every six hours Hydroxyzine Pamoate Active 25 MG PO Q6H September 23, 2023 1:00am Start: 01-30-2023 hydrOXYzine pa moate (Vistaril) 25 mg capsule 1 (one) time each day at the same time. 01/30/2023 Active Start: 01-30-2023 take 1 capsule by [facility] every six hours as needed hydrOXYzine pamoate (VISTARIL) 25 mg capsule TAKE 1 TO 2 CAPSULES BY MOUTH EVERY 6 HOURS NEEDED FOR ANXIETY 0 01/30/2023 Active Comment on above: TAKE 1 TO 2 CAPSULES BY MOUTH EVERY 6 HOURS NEEDED FOR ANXIETY Insulin Aspart U-100 (Novolog Flexpen U-100 Insulin) 100 unit/mL (3 mL) insulin pen (11 sources) Start: 09-23-2023 inject 1 dose by [...] (Tresiba Flextouch U-100) 100 unit/mL (3 mL) insulin pen (1 source) Start: 07-06-2024 Insulin Deglud ec (Tresiba Flextouch U-100) 100 unit/mL (3 mL) insulin pen Active 64 UNIT SUBCUT Every morning July 06, 2024 9:58am PER PT DOSGAE REPORT 3 ml insulin [...] Active naproxen sodium 220 mg oral capsule (9 sources) Nonsteroidal Anti-inflammatory Drug Start: 10-23-2023 take 2 capsules by mouth every twelve hours Naproxen Sodium (Aleve) 220 mg Capsule Active 440 MG PO Q12H October 23, 2023 1:00am pantoprazole 40 mg delayed release oral tablet (1 source) Proton Pump Inhibitor Start: 07-06-2024 take 1 tablet by mouth once daily Pantoprazole (Protonix) 40 mg tablet,delayed release (DR/EC) Active 40 MG PO Daily July 06, 2024 12:00am Completed/Discontinued Medications Medication Drug Class(es) Dates Sig (Normalized) Sig (Original) acetaminophen 325 mg / HYDROcodone bitartrate 5 mg oral tablet (11 sources) Opioid Agonist Start: 01-19-2024 End: 07-06-2024 take 1 tablet by mouth every six hours Hydrocodone-Acetami nophen Discontinued 1 TAB PO Q6H 28 January 19, 2024 July 06, 2024 9:58am Start: 11-03-2023 End: 01-12-2024 take 1 tablet by mouth every six hours Hydrocodone-Acetaminophen Discontinued 1 TAB PO Q6H 28 November 03, 2023 January 12, 2024 11:05am acetaminophen 325 mg / oxyCODONE hydrochloride 5 mg oral tablet (12 sources) Opioid Agonist Start: 07-29-2023 End: 09-23-2023 take 1 tablet by mouth every six hours Oxycodone-Acetaminophen Discontinued 1 TAB PO Q6H 09 28July 29, 2023 September 23, 2023 12:37pm ARIPiprazole 15 mg oral tablet (18 sources) Atypical Antipsychotic Start: 04-20-2019 End: 02-26-2021 take 1 tablet by mouth once daily Aripiprazole (Abilify) 15 mg Tablet Discontinued 15 MG PO Daily April 20, 2019 12:00am February 26, 2021 5:36pm buprenorphine 0.15 mg buccal film (18 sources) Partial Opioid Agonist Start: 04-20-2019 End: 02-26-2021 Buprenorphine Hcl (Belbuca) 150 mcg Film Discontinued 150 MCG BUCCAL Q12H April 20, 2019 12:00am February 26, 2021 5:37pm diazePAM 5 mg oral tablet (15 sources) Benzodiazepine Start: 07-29-2023 End: 09-23-2023 take 5 mg by mouth three times daily Diazepam Discontinued 5 MG PO Three times daily 12 July 29, 2023 12:00am September 23, 2023 12:41pm ibuprofen 400 mg oral tablet (18 sources) Nonsteroidal Anti-inflammatory Drug Start: 04-20-2019 End: 09-23-2023 take 400 mg by mouth every six hours Ibuprofen Discontinued 400 MG PO Q6H April 20, 2019 12:00am September 23, 2023 12:37pm Insulin Degludec (Tresiba Flextouch U-100) 100 unit/mL (3 mL) Insulin Pen (11 sources) Start: 02-26-2021 End: 07-06-2024 Insulin Degludec (Tresiba Flextouch U-100) 100 unit/mL (3 mL) Insulin Pen Discontinued 70 UNIT SUBCUT Every morning February 26, 2021 12:00am July 06, 2024 9:59am PER PT DOSGAE REPORT Start: 02-26-2021 Insulin [...] 25, 2021 11:00pm PER PT DOSGAE REPORT insulin isophane, human 100 unt/ml injectable suspension (18 sources) Start: 04-20-2019 End: 02-26-2021 Insulin Nph [...] insulin, regular, human 100 unt/ml injectable solution (18 sources) Insulin Start: 04-20-2019 End: 09-23-2023 Insulin Regular Human (Novolin R Regular U-100 Insuln) 100 unit/mL Solution Discontinued 0 .ROUTE .COMPLEX April 20, 2019 12:00am September 23, 2023 12:42pm 5 units in am 15 UNITS AT NOON 30 units in pm PER PT DOSAGE REPORT omeprazole 40 mg delayed release oral capsule (20 sources) Proton Pump Inhibitor Start: 09-23-2023 End: 07-06-2024 take 40 mg by mouth once daily in the morning Omeprazole Discontinued 40 MG PO Every morning September 23, 2023 1:00am July 06, 2024 9:59am perphenazine 4 mg oral tablet (18 sources) Phenothiazine Start: 02-26-2021 End: 05-22-2021 take 4 mg by mouth twice daily Perphenazine Discontinued 4 MG PO Twice daily February 26, 2021 12:00am May 22, 2021 5:19pm tamsulosin hydrochloride 0.4 mg oral capsule (8 sources) alpha-Adrenergic Evi Start: 11-03-2023 End: 01-12-2024 [...] in remission] Onset: 03-26-2023 Chronic Anxiety disorders (4 sources) Anxiety; Translations: [Anxiety disorder, unspecified] Onset: 02-28-2023 11-10-2023 Chronic Asthma (1 source) Asthma; Translations: [Unspecified asthma, uncomplicated] 06-24-2024 Chronic Cardiac dysrhythmias (18 sources) Palpitations; Translations: [Palpitations] 02-26-2021 Episodic Diabetes [...] unspecified] Onset: 02-28-2023 11-10-2023 Chronic Esophageal disorders (20 sources) Gastroesophageal reflux disease; Translations: [Gastro-esophageal reflux [...] site unspecified] 11-11-2023 Chronic Other acquired deformities (5 sources) Other specified deforming dorsopathies, site unspecified; Translations: [Other specified deforming dorsopathies, site unspecified] Onset: 11-11-2023 Chronic Other acquired deformities (2 sources) Flatback syndrome, lumbar region; Translations: [Flatback syndrome, lumbar region] Onset: 07-08-2024 Chronic Other connective tissue disease (3 sources) History of reverse prosthetic total arthroplasty of right shoulder; Translations: [Presence of right artificial shoulder joint] Onset: 02-28-2023 11-10-2023 Chronic Other connective tissue disease (5 sources) History of lumbar fusion; Translations: [Arthrodesis status] Onset: 09-26-2023 11-10-2023 Episodic Other connective tissue disease (2 sources) History of cervical spine fusion; Translations: [Arthrodesis status] 03-11-2024 Episodic Other connective tissue disease (2 sources) Arthrodesis status; Translations: [Arthrodesis status] 03-11-2024 Episodic Other lower respiratory disease (11 sources) Nodule of lung; Translations: [Solitary pulmonary nodule] Episodic Other lower respiratory disease (18 sources) Solitary nodule of lung; Translations: [Solitary [...] unspecified] 11-11-2023 Chronic Other nervous system disorders (2 sources) Other chronic pain; Translations: [Other chronic pain] Onset: 07-08-2024 Chronic Other nervous system disorders (9 sources) Acute postoperative pain; Translations: [Other acute postprocedural pain] Onset: 05-24-2024 11-03-2023 Episodic Other nervous system disorders (1 source) Other acute postprocedural pain; Translations: [Other acute postprocedural pain] Onset: 05-24-2024 Episodic Other nutritional; endocrine; and metabolic disorders (5 sources) Body mass index 40+ - severely obese; Translations: [Body mass index (BMI) 40.0-44.9, adult] Chronic Other nutritional; endocrine; and metabolic disorders (6 sources) Severe obesity; Translations: [Morbid (severe) obesity due to excess calories] Chronic Other upper respiratory disease (1 source) Hoarse; Translations: [Dysphonia] Episodic Residual codes; unclassified (12 sources) Obstructive sleep apnea syndrome; Translations: [Obstructive sleep apnea (adult) (pediatric)] 06-23-2024 Chronic Residual codes; unclassified (5 sources) Obstructive sleep apnea (adult) (pediatric); Translations: [Obstructive sleep apnea (adult)(pediatric)] Onset: 07-23-2021 Resolved: 04-16-2022 Chronic Spondylosis; intervertebral [...] 02-28-2023 11-10-2023 Episodic Other connective tissue disease (3 [...] Reference Range Facility Basic metabolic 2000 panelon 05-25-2024 Anion gap [Moles/Vol] 11 mmol/L Normal 10-20 [facility] Comment on above: Performed By: #### 5 8077-9 #### JOSHUA CRESPO ([id number]) [facility] ([facility]) [address] [place] [address] Calcium [Mass/Vol] 8.8 mg/dL Normal 8.6-10.3 [facility] Comment on above: Performed By: #### 5 8077-9 #### JOSHUA CRESPO ([id number]) [facility] ([facility]) [address] [place] [address] Chloride [Moles/Vol] 95 mmol/L Low 98-107 [facility] Comment on above: Performed By: #### 5 8077-9 #### OJSHUA CRESPO ([id number]) [facility] ([facility]) [address] [place] [address] CO2 [Moles/Vol] 32 mmol/L Normal 21-32 [facility] Comment on above: Performed By: #### 5 8077-9 #### JOSHUA CRESPO ([id number]) [facility] ([facility]) [address] [place] [address] Creatinine [Mass/Vol] 0.76 mg/dL Normal 0.50-1.30 [facility] Comment on above: Performed By: #### 5 8077-9 #### JOSHUA CRESPO ([id number]) [facility] ([facility]) [address] [place] [address] GFR/1.73 sq M.predicted MDRD (S/P/Bld) [Vol rate/Area] mL/min/{1.73_m2} Normal >60 [facility] Comment on above: Result Comment: Calc ulations of estimated GFR are performed using the 2020 CKD-EPI Study Refit equation without the race variable for the IDMS-Traceable creatinine methods. https://jasn.asnjournals.org/content//ASN.651218 9223 Performed By: #### 5 8077-9 #### JOSHUA CRESPO ([id number]) [facility] ([facility]) [address] [place] [address] Glucose [Mass/Vol] 229 mg/dL High 74-99 [facility] Comment on above: Performed By: #### 5 8077-9 #### JOSHUA CRESPO ([id number]) [facility] ([facility]) [address] [place] [address] Potassium [Moles/Vol] 4.0 mmol/L Normal 3.5-5.3 [facility] Comment on above: Performed By: #### 5 8077-9 #### JOSHUA CRESPO ([id number]) [facility] ([facility]) [address] [place] [address] Sodium [Moles/Vol] 134 mmol/L Low 136-145 [facility] Comment on above: Performed By: #### 5 8077-9 #### JOSHUA CRESPO ([id number]) [facility] ([facility]) [address] [place] [address] Urea nitrogen [Mass/Vol] 24 mg/dL High 6-23 [facility] Comment on above: Performed By: #### 5 8077-9 #### JOSHUA CRESPO ([id number]) [facility] ([facility]) [address] [place] [address] CBC panel Auto (Bld)on 05-25 Erythrocyte distribution width (RBC) [Ratio] 13.6 % Normal 11.5-14.5 [facility] Comment on above: Performed By: #### 5 8077-9 #### JOSHUA CRESPO ([id number]) [facility] ([facility]) [address] [place] [address] Hematocrit (Bld) [Volume fraction] 46.0 % Normal 41.0-52.0 [facility] Comment on above: Performed By: #### 5 8077-9 #### JOSHUA CRESPO ([id number]) [facility] ([facility]) [address] [place] [address] Hemoglobin (Bld) [Mass/Vol] 15.5 g/dL Normal 13.5-17.5 [facility] Comment on above: Performed By: #### 5 8077-9 #### JOSHUA CRESPO ([id number]) [facility] ([facility]) [address] [place] [address] MCH (RBC) [Entitic mass] 32.3 pg Normal 26.0-34.0 [facility] Comment on above: Performed By: #### 5 8077-9 #### JOSHUA CRESPO ([id number]) [facility] ([facility]) [address] [place] [id number] MCHC (RBC) [Mass/Vol] 33.7 g/dL Normal 32.0-36.0 [facility] Comment on above: Performed By: #### 5 8077-9 #### JOSHUA CRESPO ([id number]) [facility] ([facility]) [address] [place] [id number] MCV (RBC) [Entitic vol] 96 fL Normal 80-100 [facility] Comment on above: Performed By: #### 5 8077-9 #### JOSHUA CRESPO ([id number]) [facility] ([facility]) [address] [place] [address] Nucleated RBC/100 WBC (Bld) [Ratio] 0.0 /100 WBCs Normal 0.0-0.0 [facility] Comment on above: Performed By: #### 5 8077-9 #### JOSHUA CRESPO ([id number]) [facility] ([facility]) [address] [place] [address] Platelets (Bld) [#/Vol] 197 x10*3/uL Normal 150-450 [facility] Comment on above: Performed By: #### 5 8077-9 #### OJSHUA CRESPO ([id number]) [facility] ([facility]) [address] [place] [address] RBC (Bld) [#/Vol] 4.80 x10*6/uL Normal 4.50-5.90 [facility] Comment on above: Performed By: #### 5 8077-9 #### JOSHUA CRESPO ([id number]) [facility] ([facility]) [address] [place] [address] WBC (Bld) [#/Vol] 10.7 x10*3/uL Normal 4.4-11.3 [facility] Comment on above: Performed By: #### 5 8077-9 #### JOSHUA CRESPO ([id number]) [facility] ([facility]) [address] [place] [id number] Glucose Test strip manual (B ld) [Mass/Vol]on 05-25-2024 Glucose [Mass/Vol] 202 mg/dL High 7499 [facility] Comment on above: Performed By: #### 5 8077-9 #### JOSHUA CRESPO ([id number]) [facility] ([facility]) [address] [place], [place] [id number] [place] LESS THAN 1 HOURon 2023 [place] LESS THAN 1 HOUR These images are not reportable by radiology and will not be interpreted by Radiologists. [facility] Glucose Test strip manual (B ld) [Mass/Vol]on 05-24-2024 Glucose [Mass/Vol] 285 mg/dL High [address] [place] [address] Comment on above: Performed By: #### 2 341-6 #### JOSHUA CRESPO ([id number]) [facility] ([facility]) [address] [place] [address] Glucose [Mass/Vol] 312 mg/dL High [address] [place] [address] Comment on above: Performed By: #### 2 341-6 #### JOSHUA CRESPO ([id number]) [facility] ([facility]) [address] [place] [address] Glucose [Mass/Vol] 306 mg/dL High [address] [place] [address] Comment on above: Performed By: #### 2 341-6 #### JOSHUA CRESPO ([id number]) [facility] ([facility]) [address] [place] [address] Glucose [Mass/Vol] 206 mg/dL High [address] [place] [address] Comment on above: Performed By: #### 2 341-6 #### JOSHUA CRESPO ([id number]) [facility] ([facility]) [address] [place] [address] Glucose [Mass/Vol] 130 mg/dL High 74-99 [facility] Comment on above: Performed By: #### 2 341-6 #### JOSHUA CRESPO ([id number]) [facility] ([facility]) [address] [place] [address] VERAB/VERIFY ABORHon 024 ABO group Nom (Bld) O [facility] Comment on above: Order Comment: Thi s is for confirming/verifying history of ABORh on file for transfusion of blood products. If this is not for transfusion, please order an ABO/RH [[id number]]. If you have any questions or unsure what to order, please call the blood bank. Performed By: #### V ERAB #### JOSHUA CRESPO ([id number]) [facility] ([facility]) [address] [place] [address] [place] D Ag Ql (Bld) Positive [facility] Comment on above: Order Comment: Thi s is for confirming/verifying history of ABORh on file for transfusion of blood products. If this is not for transfusion, please order an ABO/RH [[id number]]. If you have any questions or unsure what to order, please call the blood bank. Performed By: #### V ERAB #### JOSHUA CRESPO ([id number]) [facility] ([facility]) [address] [place], [place] [id number] [place] Basic metabolic 2000 panelon 05-17-2024 Anion gap [Moles/Vol] 14 mmol/L Normal 10-20 [facility] Comment on above: Performed By: #### 2 4321-2 #### JOSHUA CRESPO ([id number]) [facility] ([facility]) [address] [place], [place] [phone] Calcium [Mass/Vol] 9.0 mg/dL Normal 8.6-10.3 [facility] Comment on above: Performed By: #### 2 4321-2 #### JOSHUA CRESPO ([id number]) [facility] ([facility]) [address] [place] [address] Chloride [Moles/Vol] 99 mmol/L Normal 98-107 [facility] [facility] Comment on above: Performed By: #### 2 4321-2 #### JOSHUA CRESPO ([id number]) [facility] ([facility]) [address] [place] [address] CO2 [Moles/Vol] 31 mmol/L Normal 21-32 [facility] Comment on above: Performed By: #### 2 4321-2 #### JOSHUA CRESPO (52433) [facility] ([facility]) [address] [place] [address] Creatinine [Mass/Vol] 0.70 mg/dL Normal 0.50-1.30 [facility] Comment on above: Performed By: #### 2 4321-2 #### JOSHUA CRESPO (20191) [facility] ([facility]) [address] [place] [address] GFR/1.73 sq M.predicted MDRD (S/P/Bld) [Vol rate/Area] mL/min/{1.73_m2} Normal >60 [facility] Comment on above: Result Comment: Calc ulations of estimated GFR are performed using the 2020 CKD-EPI Study Refit equation without the race variable for the IDMS-Traceable creatinine methods. https://jasn.asnjournals.org/content//ASN.766781 2189 Performed By: #### 2 4321-2 #### JOSHUA CRESPO (59313) [facility] ([facility]) [address] [place] [address] Glucose [Mass/Vol] 158 mg/dL High 74-99 [facility] Comment on above: Performed By: #### 2 4321-2 #### JOSHUA CRESPO (20001) [facility] ([facility]) [address] [place] [address] Potassium [Moles/Vol] 4.5 mmol/L Normal 3.5-5.3 [facility] Comment on above: Performed By: #### 2 4321-2 #### JOSHUA CRESPO (51111) [facility] ([facility]) [address] [place] [address] Sodium [Moles/Vol] 139 mmol/L Normal 136-145 [facility] Comment on above: Performed By: #### 2 4321-2 #### JOSHUA CRESPO (00492) [facility] ([facility]) [address] [place] [address] Urea nitrogen [Mass/Vol] 17 mg/dL Normal 6-23 [facility] Comment on above: Performed By: #### 2 4321-2 #### JOSHUA CRESPO (23453) [facility] ([facility]) [address] [place] [address] Blood type and Indirect anti body screen panel (Bld)on 05-17-2024 ABO group Nom (Bld) O Normal [facility] Comment on above: Performed By: #### 3 4532-2 #### JOSHUA CRESPO (72435) [facility] ([facility]) [address] [place] [address] [place] Blood group antibody screen Ql Negative Normal [facility] Comment on above: Performed By: #### 3 4532-2 #### JOSHUA CRESPO (86141) [facility] ([facility]) [address] [place] [address] [place] D Ag Ql (Bld) Positive [facility] Comment on above: Performed By: #### 3 4532-2 #### JOSHUA CRESPO (41531) [facility] ([facility]) [address] [place] [address] [place] CBC W Auto Differential pane l (Bld)on 05-17-2024 Basophils (Bld) [#/Vol] 0.04 x10*3/uL Normal 0.00-0.10 [facility] Comment on above: Performed By: #### 5 7021-8 #### JOSHUA CRESPO (48406) [facility] ([facility]) [address] [place] [address] Basophils/100 WBC (Bld) 0.7 % Normal 0.0-2.0 [facility] Comment on above: Performed By: #### 5 7021-8 #### JOSHUA CRESPO (62994) [facility] ([facility]) Critical access hospital[address] [place] [address] Eosinophils (Bld) [#/Vol] 0.23 x10*3/uL Normal 0.00-0.70 [facility] Comment on above: Performed By: #### 5 7021-8 #### JOSHUA CRESPO (53779) [facility] ([facility]) [address] [place] [address] Eosinophils/100 WBC (Bld) 3.8 % Normal 0.0-6.0 [facility] Comment on above: Performed By: #### 5 7021-8 #### JOSHUA CRESPO (37557) [facility] ([facility]) [address] [place] [address] Erythrocyte distribution width (RBC) [Ratio] 13.7 % Normal 11.5-14.5 [facility] Comment on above: Performed By: #### 7021-8 #### JOSHUA CRESPO (65706) [facility] ([facility]) [address] [place] [address] Hematocrit (Bld) [Volume fraction] 46.0 % Normal 41.0-52.0 [facility] Comment on above: Performed By: #### 5 7021-8 #### JOSHUA CRESPO (41771) [facility] ([facility]) [address] [place] [phone] Hemoglobin (Bld) [Mass/Vol] 15.4 g/dL Normal 13.5-17.5 [facility] Comment on above: Performed By: #### 5 7021-8 #### JOSHUA CRESPO (74955) [facility] ([facility]) [address] [place], [place] [phone] Immature granulocytes (Bld) [#/Vol] 0.02 x10*3/uL Normal 0.00-0.70 [facility] Comment on above: Performed By: #### 5 7021-8 #### JOSHUA CRESPO (84810) [facility] ([facility]) [address] [place] [phone] Immature granulocytes/100 WBC (Bld) 0.3 % Normal 0.0-0.9 [facility] Comment on above: Result Comment: Bhargavi ture Granulocyte Count (IG) includes promyelocytes, myelocytes and metamyelocytes but does not include bands. Percent differential counts (%) should be interpreted in the context of the absolute cell counts (cells/UL). Performed By: #### 5 7021-8 #### JOSHUA CRESPO (23902) [facility] ([facility]) [address] [place] [address] Lymphocytes (Bld) [#/Vol] 1.49 x10*3/uL Normal 1.20-4.80 [facility] Comment on above: Performed By: #### 5 7021-8 #### JOSHUA CRESPO (34669) [facility] ([facility]) [address] [place] [address] Lymphocytes/100 WBC (Bld) 24.9 % Normal 13.0-44.0 [facility] Comment on above: Performed By: #### 5 7021-8 #### JOSHUA CRESPO (98412) [facility] ([facility]) [address] [place] [phone] MCH (RBC) [Entitic mass] 32.0 pg Normal 26.0-34.0 [facility] Comment on above: Performed By: #### 5 7021-8 #### JOSHUA CRESPO (13771) [facility] ([facility]) [address] [place] [phone] MCHC (RBC) [Mass/Vol] 33.5 g/dL Normal 32.0-36.0 [facility] Comment on above: Performed By: #### 5 7021-8 #### JOSHUA CRESPO (18907) [facility] ([facility]) [address] [place] [phone] MCV (RBC) [Entitic vol] 96 fL Normal 80-100 [facility] Comment on above: Performed By: #### 5 7021-8 #### JOSHUA CRESPO (69871) [facility] ([facility]) [address] [place] [address] Monocytes (Bld) [#/Vol] 0.39 x10*3/uL Normal 0.10-1.00 [facility] Comment on above: Performed By: #### 5 7021-8 #### JOSHUA CRESPO (59121) [facility] ([facility]) [address] [place] [address] Monocytes/100 WBC (Bld) 6.5 % Normal 2.0-10.0 [facility] Comment on above: Performed By: #### 5 7021-8 #### JOSHUA CRESPO (92214) [facility] ([facility]) [address] [place] [address] Neutrophils (Bld) [#/Vol] 3.82 x10*3/uL Normal 1.20-7.70 [facility] Comment on above: Result Comment: Perc ent differential counts (%) should be interpreted in the context of the absolute cell counts (cells/uL). Performed By: #### 5 7021-8 #### JOSHUA CRESPO (19466) [facility] ([facility]) [address] [place] [address] Neutrophils/100 WBC (Bld) 63.8 % Normal 40.0-80.0 [facility] Comment on above: Performed By: #### 5 7021-8 #### JOSHUA CRESPO (12762) [facility] ([facility]) [address] [place] [address] Nucleated RBC/100 WBC (Bld) [Ratio] 0.0 /100 WBCs Normal 0.0-0.0 [facility] Comment on above: Performed By: #### 5 7021-8 #### JOSHUA CRESPO (70493) [facility] ([facility]) [address] [place] [address] Platelets (Bld) [#/Vol] 186 x10*3/uL Normal 150-450 [facility] Comment on above: Performed By: #### 5 7021-8 #### JOSHUA CRESPO (81943) [facility] ([facility]) [address] [place] [address] RBC (Bld) [#/Vol] 4.81 x10*6/uL Normal 4.50-5.90 [facility] Comment on above: Performed By: #### 5 7021-8 #### JOSHUA CRESPO (58171) [facility] ([facility]) [address] [place] [address] WBC (Bld) [#/Vol] 6.0 x10*3/uL Normal 4.4-11.3 [facility] Comment on above: Performed By: #### 5 7021-8 #### JOSHUA CRESPO (16482) [facility] ([facility]) [address] [place] [address] ECG 12-LEADon 05-17-2024 ECG 12-LEAD Ventricular Rate 70 Atrial Rate 70 P-R Interval 186 QRS Duration 96 Q-T Interval 384 QTC Calculation(Bazett) 414 P Childress 35 R Childress -13 T Childress 35 QRS Count 11 Q Onset 223 P Onset 130 P Offset 179 T Offset 415 QTC Fredericia 404 Diagnosis Normal sinus rhythm Normal ECG No previous ECGs available Confirmed by Bonifacio Cruz ([id number]) on 05/17/2024 1:21:00 PM Normal [facility] HbA1c (Bld) [Mass fraction]o n 05-17-2024 Average glucose Estimated from glycated hemoglobin (Bld) [Mass/Vol] 194 mg/dL Normal Not Established [facility] Comment on above: Order Comment: Diagn osis of Diabetes-Adults Non-Diabetic: < or = 5.6% Increased risk for developing diabetes: 5.7-6.4% Diagnostic of diabetes: > or = 6.5% Performed By: #### 4 548-4 #### ELEONORA Glez (57496) [facility] ([facility]) [address] [place] [address] Hemoglobin A1c/Hemoglobin.to jose 05-17-2024 HbA1c (Bld) [Mass fraction] 8.4 % High see below [facility] Comment on above: Order Comment: Diagn osis of Diabetes-Adults Non-Diabetic: < or = 5.6% Increased risk for developing diabetes: 5.7-6.4% Diagnostic of diabetes: > or = 6.5% Performed By: #### 4 548-4 #### ELEONORA Glez (51825) [facility] ([facility]) [address] [place] [address] PT and aPTT panel Coag (PPP) on 05-17-2024 aPTT Coag (PPP) [Time] 31 s Normal 27-38 [facility] Comment on above: Order Comment: The A PTT is no longer used for monitoring Unfractionated Heparin Therapy. For monitoring Heparin Therapy, use the Heparin Assay. Performed By: #### 3 4529-8 #### JOSHUA CRESPO (42650) [facility] ([facility]) [address] [place], [place] [phone] INR Coag (PPP) [Relative time] 0.9 Normal 0.9-1.1 [facility] Comment on above: Order Comment: The A PTT is no longer used for monitoring Unfractionated Heparin Therapy. For monitoring Heparin Therapy, use the Heparin Assay. Performed By: #### 3 4529-8 #### JOSHUA CRESPO (30815) [facility] ([facility]) [address] [place] [address] PT Coag (PPP) [Time] 9.6 s Low 9.8-12.8 [facility] Comment on above: Order Comment: The A PTT is no longer used for monitoring Unfractionated Heparin Therapy. For monitoring Heparin Therapy, use the Heparin Assay. Performed By: #### 3 4529-8 #### JOSHUA CRESPO (32160) [facility] ([facility]) [address] [place], [place] [phone] Staphylococcus aureus.methic illin resistant isolateon 05-17-2024 MRSA isol Org specific cx Ql (Nose) Test: Staphylococcus aureus/MRSA colonization, Culture Specimen Source: Nares/Axilla/Groin Specimen Type: Swab Specimen Date: 05/17/2024 1007 Result Date: 05/19/2024 1143 Result Status: Final result Abnormal: Yes Resulting Lab: [facility] [address] [place] [address] CULTURE Isolated: Methicillin Susceptible Staphylococcus aureus (MSSA) (Abnormal) Abnormal [facility] Comment on above: Performed By: #### 5 2969-3 #### ELEONORA Glez (48196) [facility] ([facility]) [address] [place] [address] Urinalysis complete W Reflex Culture panel (U)on 05-17-2024 Appearance (U) Clear Normal Clear [facility] Comment on above: Performed By: #### 5 8077-9 #### JOSHUA CRESPO (28600) [facility] ([facility]) [address] [place] [address] Bilirubin (U) [Mass/Vol] Negative Normal NEGATIVE [facility] Comment on above: Performed By: #### 5 8077-9 #### JOSHUA CRESPO (41467) [facility] ([facility]) [address] [place] [address] Color (U) Light-Yellow Normal Light-Yellow , Yellow, Dark-Yellow [facility] Comment on above: Performed By: #### 5 8077-9 #### JOSHUA CRESPO (74292) [facility] ([facility]) [address] [place], [place] [phone] Glucose Auto test strip (U) [Mass/Vol] OVER (4+) Abnormal Normal [facility] Comment on above: Performed By: #### 5 8077-9 #### JOSHUA CRESPO (15600) [facility] ([facility]) [address] [place] [address] Ketones (U) [Mass/Vol] Negative Normal NEGATIVE [facility] Comment on above: Performed By: #### 5 8077-9 #### JOSHUA CRESPO (69416) [facility] ([facility]) [address] [place], [place] [phone] Leukocyte esterase Auto test strip Ql (U) Negative Normal NEGATIVE [facility] Comment on above: Performed By: #### 5 8077-9 #### JOSHUA CRESPO (40417) [facility] ([facility]) [address] [place] [address] Nitrite Auto test strip Ql (U) Negative Normal NEGATIVE [facility] Comment on above: Performed By: #### 5 8077-9 #### JOSHUA CRESPO (40878) [facility] ([facility]) [address] [place] [address] pH (U) 6.5 [pH] Normal 5.0, 5.5, 6.0, 6.5, 7.0, 7.5, 8.0 [facility] Comment on above: Performed By: #### 5 8077-9 #### OJSHUA CRESPO (62645) [facility] ([facility]) [address] [place] [address] Protein (U) [Mass/Vol] 20 (TRACE) Normal NEGATIVE, 10 (TRACE), 20 (TRACE) [facility] Comment on above: Performed By: #### 5 8077-9 #### JOSHUA CRESPO (37492) [facility] ([facility]) [address] [place] [address] RBC (U) [#/Vol] Negative Normal NEGATIVE [facility] Comment on above: Performed By: #### 5 8077-9 #### JOSHUA CRESPO (94635) [facility] ([facility]) [address] [place] [address] RBC Auto (Urine sed) [#/Area] 1-2 Normal NONE, 1-2, 3-5 [facility] Comment on above: Performed By: #### 5 8077-9 #### JOSHUA CRESPO (88972) [facility] ([facility]) [address] [place], [place] [phone] Specific gravity (U) [Rel density] 1.028 Normal 1.005-1.035 [facility] Comment on above: Performed By: #### 5 8077-9 #### JOSHUA CRESPO (67044) [facility] ([facility]) [address] [place], [place] [address] Urobilinogen (U) [Mass/Vol] Normal Normal Normal [facility] Comment on above: Performed By: #### 5 8077-9 #### JOSHUA CRESPO (91152) [facility] ([facility]) [address] [place] [address] WBC Auto (Urine sed) [#/Area] NONE Normal 1-5, NONE [facility] Comment on above: Performed By: #### 5 8077-9 #### JOSHUA CHERIE (09202) [facility] ([facility]) [address] [place] [address] XR CERVICAL SPINE COMPLETE 4 -5 VIEWSon 04-01-2024 XR CERVICAL SPINE COMPLETE 4-5 VIEWS Interpreted By: Lety Pickard, STUDY: XR CERVICAL SPINE COMPLETE 4-5 VIEWS 04/01/2024 10:20 am INDICATION: Signs/Symptoms:neck pain and cervical myelopathy COMPARISON: None available. ACCESSION NUMBER(S): [id number] ORDERING CLINICIAN: MARYANN RUBALCAVA TECHNIQUE: AP and [...] Lety Pickard 04/02/2024 7:21 PM Dictation workstation: [id number] [facility] Comment on above: Order Comment: Jem hankins perform upright AP, LATERAL views with FLEXION and EXTENSION films. ( Total 4 views ) XR scoliosis surveyon 2023 XR scoliosis survey [facility] Main [place] [address] [place] [address] XRay Report Signed Patient: Koko Meier MR#: [id number] : 1960 Acct:[id number] Age/Sex: 63 / M ADM Date: 03/31/24 Loc: XD Room: Type: [facility] Attending Dr: Maryann Rubalcava MD Copies to: [...] Bruce Ortiz M.D.03/31/2024 6:16 PM Dictation Location: [place] [address] Transcribed By: [facility] 03/31/241815 Dictated By: Bruce Ortiz II, MD 03/31/241811 Signed By: 03/31/241815 Normal [facility] Amphetamine Screen Ql (U)Ord ered By: Giuseppe Desouza on 01-19-2024 Amphetamines Ql (U) Negative Negative [facility] Barbiturates [Presence] in U rine by Screen methodOrdered By: Giuseppe Desouza on 01-19-2024 Barbiturates Screen Ql (U) Negative Negative [facility] Benzodiazepines Screen Ql (U )Ordered By: Giuseppe Desouza on 01-19-2024 Benzodiazepines Ql (U) Negative Negative [facility] Benzoylecgonine [Presence] i n Urine by Screen methodOrdered By: Giuseppe Desouza on 01-19-2024 Benzoylecgonine Screen Ql (U) Negative Negative [facility] Cannabinoids [Presence] in U rine by Screen methodOrdered By: Giuseppe Desouza on 01-19-2024 Cannabinoids Screen Ql (U) Positive Negative [facility] Comment on above: These are unconfirme d results and should not be used for legal purposes. Drug Cut-Off Concentration: AMPH 1000 ng/mL ZE 200 ng/mL DUANE 200 ng/mL COCM 300 ng/mL OP 300 ng/mL PCP 25 ng/mL THC 20 ng/mL Capillary blood glucose ezra urement by glucometer (mass/volume)Ordered By: Yogesh Becker on 01-19-2024 Glucose [Mass/Vol] 160 mg/dL Normal [facility] Comment on above: Random Glucose Refer ence Range is dependent on time and content of last meal. Glucose of more than 200 mg/dL in a nonstressed, ambulatory subject supports the diagnosis of Diabetes Mellitus. Result Comment: [place] Glucose Reference Range is dependent on time and content of last meal. Glucose of more than 200 mg/dL in a nonstressed, ambulatory subject supports the diagnosis of Diabetes Mellitus. PERFORMED BY: [place] [address] PATHOLOGIST EVAPORATOR OPERATOR MOLASSES CLEVE CANDELARIA M.D. Performed By: #### T SH3, [id number] #### [address] #### METH #### [facility] , Drug Screen,Urineon 01-19-20 Amphetamine Screen,Urine Negative Normal Negative [facility] Comment on above: Order Comment: Comme nt stat when patient gets to prep Performed By: #### T SH3, [id number] #### [address] #### METH #### [facility] , Barbiturate Screen,Urine Negative Normal Negative [facility] Comment on above: Order Comment: Comme nt stat when patient gets to prep Performed By: #### T SH3, [id number] #### [address] #### METH #### [facility] , Benzodiazepines Screen,Urine Negative Normal Negative [facility] Comment on above: Order Comment: Comme nt stat when patient gets to prep Performed By: #### T SH3, [id number] #### [address] #### METH #### [facility] , Cannabinoid Screen,Urine Positive High Negative [facility] Comment on above: Order Comment: Comme nt stat when patient gets to prep Result Comment: Thes e are unconfirmed results and should not be used for legal purposes. Drug Cut-Off Concentration: AMPH 1000 ng/mL ZE 200 ng/mL DUANE 200 ng/mL COCM 300 ng/mL OP 300 ng/mL PCP 25 ng/mL THC 20 ng/mL PERFORMED BY: [place] [address] PATHOLOGIST EVAPORATOR OPERATOR MOLASSES CLEVE CANDELARIA M.D. Performed By: #### T SH3, [id number] #### [place] [address] [place] #### METH #### [facility] , Cocaine Screen,Urine Negative Normal Negative [facility] Comment on above: Order Comment: Comme nt stat when patient gets to prep Performed By: #### T SH3, [id number] #### [place] [address] [place] #### METH #### [facility] , Opiate Screen,Urine Negative Normal Negative [facility] Comment on above: Order Comment: Comme nt stat when patient gets to prep Performed By: #### T SH3, [id number] #### [address] #### METH #### [facility] , Phencyclidine Screen,Urine Negative Normal Negative [facility] Comment on above: Order Comment: Comme nt stat when patient gets to prep Performed By: #### T SH3, [id number] #### [address] #### METH #### [facility] , Glucose Poct Glucometerson 0 01-19-2024 Commemt1 Glu2: Cleaned Meter Normal [facility] Comment on above: Result Comment: PERF ORMED BY: [place] [address] PATHOLOGIST EVAPORATOR OPERATOR MOLASSES CLEVE CANDELARIA M.D. Performed By: #### G LULS #### Point of Care testing , Glucose [Mass/Vol] 162 mg/dL Normal [facility] Comment on above: Result Comment: [place] Glucose Reference Range is dependent on time and content of last meal. Glucose of more than 200 mg/dL in a nonstressed, ambulatory subject supports the diagnosis of Diabetes Mellitus. Performed By: #### G LULS #### Point of Care testing , Commemt1 Glu2: Cleaned Meter Normal [facility] Comment on above: Result Comment: PERF ORMED BY: [place] [address] PATHOLOGIST EVAPORATOR OPERATOR MOLASSES CLEVE CANDELARIA M.D. Performed By: #### T SH3, [id number] #### [address] #### METH #### [facility] , Glucose [Mass/Vol] 250 mg/dL Normal [facility] Comment on above: Result Comment: [place] om Glucose Reference Range is dependent on time and content of last meal. Glucose of more than 200 mg/dL in a nonstressed, ambulatory subject supports the diagnosis of Diabetes Mellitus. Performed By: #### T SH3, [id number] #### [address] #### METH #### [facility] , No Panel InformationOrdered By: Yogesh Becker on 01-19-2024 Bedside Glucose Comment Glu2: cleaned meter [facility] Opiates [Presence] in Urine by Screen methodOrdered By: Giuseppe Desouza on 01-19-2024 Opiates Screen Ql (U) Negative Negative [facility] Phencyclidine Screen Ql (U)O rdered By: Giuseppe Desouza on 01-19-2024 Phencyclidine Ql (U) Negative Negative [facility] Automated basophil %Ordered By: Yogesh Becker on 01-12-2024 Basophils/100 WBC (Bld) 0.9 % Normal . [facility] Comment on above: Performed By: #### C BC, BMP #### [address] Automated basophil countOrde red By: Yogesh Becker on 01-12-2024 Basophils (Bld) [#/Vol] 0.1 10*3/uL Normal 0.0-0.2 [facility] Comment on above: Result Comment: PERF ORMED BY: [place] [address] PATHOLOGIST EVAPORATOR OPERATOR MOLASSES CLEVE CANDELARIA M.D. Performed By: #### C BC, BMP #### [address] Automated blood monocyte cou ntOrdered By: Yogesh Becker on 01-12-2024 Monocytes (Bld) [#/Vol] 0.4 10*3/uL Normal 0.0-0.8 [facility] Comment on above: Performed By: #### C BC, BMP #### [address] Automated eosinophil %Ordere d By: Yogesh Becker on 01-12-2024 Eosinophils/100 WBC (Bld) 3.9 % Normal . [facility] Comment on above: Performed By: #### C BC, BMP #### [address] Automated eosinophil countOr dered By: Yogesh Becker on 01-12-2024 Eosinophils (Bld) [#/Vol] 0.3 10*3/uL Normal 0.0-0.45 [facility] Comment on above: Performed By: #### C BC, BMP #### [address] Automated monocyte %Ordered By: Yogesh Becker on 01-12-2024 Monocytes/100 WBC (Bld) 5.2 % Normal . [facility] Comment on above: Performed By: #### C BC, BMP #### [address] Automated neutrophil %Ordere d By: Yogesh Becker on 01-12-2024 Neutrophils/100 WBC (Bld) 73.3 % Normal . [facility] Comment on above: Performed By: #### C BC, BMP #### [address] Basic Metabolic Panelon 12-25 GFR/1.73 sq M.predicted MDRD (S/P/Bld) [Vol rate/Area] mL/min/{1.73_m2} Normal [facility] Comment on above: Performed By: #### C BC, BMP #### [address] Calcium [Mass/volume] in Ser um or PlasmaOrdered By: Yogesh Becker on 01-12-2024 Calcium [Mass/Vol] 9.3 mg/dL Normal 8.6-10.3 [facility] Comment on above: Result Comment: PERF ORMED BY: [place] [address] PATHOLOGIST EVAPORATOR OPERATOR MOLASSES CLEVE CANDELARIA M.D. Performed By: #### C BC, BMP #### [address] Carbon dioxide, total [Moles /volume] in Serum or PlasmaOrdered By: Yogesh Becker on 01-12-2024 CO2 [Moles/Vol] 33.8 mmol/L High 21.0-31.0 [facility] Comment on above: Performed By: #### C BC, BMP #### [address] Chloride [Moles/volume] in S raffi or PlasmaOrdered By: Yogesh Becker on 01-12-2024 Chloride [Moles/Vol] 98 mmol/L Normal 98-107 [facility] Comment on above: Performed By: #### C BC, BMP #### [address] Complete Blood Count Auto Di ffon 01-12-2024 Mean Corpuscular HGB Conc 33.1 g/dL Normal 32.5-35.6 [facility] Comment on above: Performed By: #### C BC, BMP #### [address] NRBC% 0.1 /100{WBC} Normal 0-0.5 [facility] Comment on above: Performed By: #### C BC, BMP #### [address] Creatinine [Mass/volume] in Serum or PlasmaOrdered By: Yogesh Becker on 01-12-2024 Creatinine [Mass/Vol] 0.82 mg/dL Normal 0.70-1.30 [facility] Comment on above: Performed By: #### C BC, BMP #### [address] Erythrocyte distribution wid th [Ratio] by Automated countOrdered By: Yogesh Becker on 01-12-2024 Erythrocyte distribution width (RBC) [Ratio] 14.2 % Normal 12.0-14.8 [facility] Comment on above: Performed By: #### C BC, BMP #### [address] Erythrocytes [#/volume] in B lood by Automated countOrdered By: Yogesh Becker on 01-12-2024 RBC (Bld) [#/Vol] 5.21 10*6/uL Normal 3.90-5.60 [facility] Comment on above: Performed By: #### C AMAIRANI, BMP #### [address] Glucose [Mass/volume] in Ser um or PlasmaOrdered By: Yogesh Becker on 01-12-2024 Glucose [Mass/Vol] 281 mg/dL High 70-100 [facility] Comment on above: ADA recommended refe rence rangeRandom Glucose Reference Range is dependent on time and content of last meal. Glucose of more than 200 mg/dL in a nonstressed, ambulatory subject supports the diagnosis of Diabetes Mellitus. Result Comment: [place] Glucose Reference Range is dependent on time and content of last meal. Glucose of more than 200 mg/dL in a nonstressed, ambulatory subject supports the diagnosis of Diabetes Mellitus. ADA recommended reference range Performed By: #### C AMAIRANI, BMP #### [address] Hematocrit [Volume Fraction] of Blood by Automated countOrdered By: Yogesh Becker on 01-12-2024 Hematocrit (Bld) [Volume fraction] 50.5 % High 38.8-50.0 [facility] Comment on above: Performed By: #### C AMAIRANI, BMP #### [address] Hemoglobin [Mass/volume] in BloodOrdered By: Yogesh Becker on 01-12-2024 Hemoglobin (Bld) [Mass/Vol] 16.7 g/dL Normal 13.0-17.0 [facility] Comment on above: Performed By: #### C AMAIRANI, BMP #### [address] Leukocytes [#/volume] correc charanjit for nucleated erythrocytes in Blood by Automated counOrdered By: Yogesh Becker on 01-12-2024 WBC corrected for nucl RBC Auto (Bld) [#/Vol] 8.5 10*3/uL 4.1-10.5 [facility] Leukocytes [#/volume] in Blo od by Automated countOrdered By: Yogesh Becker on 01-12-2024 WBC (Bld) [#/Vol] 8.5 10*3/uL Normal 4.1-10.5 [facility] Comment on above: Performed By: #### C BC, BMP #### [facility] [address] [place] [address] [place] Lymphocytes [#/volume] in Bl ood by Automated countOrdered By: Yogesh Becker on 01-12-2024 Lymphocytes (Bld) [#/Vol] 1.4 10*3/uL Normal 1.00-4.8 [facility] Comment on above: Performed By: #### C AMAIRANI, BMP #### [address] Lymphocytes/100 leukocytes i n Blood by Automated countOrdered By: Yogesh Becker on 01-12-2024 Lymphocytes/100 WBC (Bld) 16.7 % Normal . [facility] Comment on above: Performed By: #### C AMAIRANI, BMP #### [address] MCH [Entitic mass] by Automa charanjit countOrdered By: Yogesh Becker on 01-12-2024 MCH (RBC) [Entitic mass] 32.1 pg Normal 27.5-35.2 [facility] Comment on above: Performed By: #### C BC, BMP #### [address] MCHC Auto (RBC) [Mass/Vol]Or dered By: Yogesh Becker on 01-12-2024 MCHC (RBC) [Mass/Vol] 33.1 g/dL 32.5-35.6 [facility] MCV [Entitic volume] by Auto mated countOrdered By: Yogesh Becker on 01-12-2024 MCV (RBC) [Entitic vol] 96.9 fL Normal 83.5-101 [facility] Comment on above: Performed By: #### C BC, BMP #### [address] Neutrophils [#/volume] in Bl ood by Automated countOrdered By: Yogesh Becker on 01-12-2024 Neutrophils (Bld) [#/Vol] 6.2 10*3/uL Normal 1.8-7.7 [facility] Comment on above: Performed By: #### C BC, BMP #### [address] No Panel InformationOrdered By: Yogesh Becker on 01-12-2024 Estimated GFR (CKD-EPI) > 60.0 mL/Min [facility] Creatinine Clearance (Chem N/A [facility] Nucleated erythrocytes [Pres ence] in Blood by Automated countOrdered By: Yogesh Becker on 01-12-2024 Nucleated RBC Auto Ql (Bld) 0.1 /100{WBC} 0-0.5 [facility] Platelet mean volume [Entiti c volume] in Blood by Automated countOrdered By: Yogesh Becker on 01-12-2024 Platelet mean volume (Bld) [Entitic vol] 8.6 fL Normal 6.6-10.1 [facility] Comment on above: Performed By: #### C AMAIRANI, BMP #### [address] Platelets [#/volume] in Bloo d by Automated countOrdered By: Yogesh Becker on 01-12-2024 Platelets (Bld) [#/Vol] 186 10*3/uL Normal 150-450 [facility] Comment on above: Performed By: #### C BC, BMP #### [address] Potassium [Moles/volume] in Serum or PlasmaOrdered By: Yogesh Becker on 01-12-2024 Potassium [Moles/Vol] 5.0 mmol/L Normal 3.5-5.1 [facility] Comment on above: Performed By: #### C BC, BMP #### [address] Serum or plasma anion gap de terminationOrdered By: Yogesh Becker on 01-12-2024 Anion gap [Moles/Vol] 9.2 mmol/L Normal 6.0-15.0 [facility] Comment on above: Performed By: #### C BC, BMP #### [facility] [address] [place] [address] Sodium [Moles/volume] in Ser um or PlasmaOrdered By: Yogesh Becker on 01-12-2024 Sodium [Moles/Vol] 136 mmol/L Normal 136-145 [facility] Comment on above: Performed By: #### C BC, BMP #### [address] Urea nitrogen [Mass/volume] in Serum or PlasmaOrdered By: Yogesh Becker on 01-12-2024 Urea nitrogen [Mass/Vol] 24 mg/dL Normal 7-25 [facility] Comment on above: Performed By: #### C BC, BMP #### [address] MR cervical spine wo conon 0 12-16-2023 MR cervical spine wo con [facility] [place] [address] [place] [address] MRI Report Signed Patient: Koko Meier MR#: [id number] : 1960 Acct:[id number] Age/Sex: 63 / M ADM Date: 12/16/23 Loc: [facility] Room: Type: [facility] Attending Dr: Maryann Rubalcava MD Copies to: [...] Bruce Ortiz M.D.12/16/2023 3:15 PM Dictation Location: [facility] Transcribed By: SHIRLEY 12/16/23 1515 Dictated By: Bruce Ortiz II, MD 12/16/23 1500 Signed By: 12/16/23 151 Normal [facility] CT head/brain wo conon 11-25 CT head/brain wo con [facility] [place] [place] [address] CT Scan Report Signed Patient: Koko Meier MR#: [id number] : 1960 Acct:[id number] Age/Sex: 62 / M ADM Date: 11/25/23 Loc: CT Room: Type: [facility] Attending Dr: Oliver Kerr MD Copies to: [...] Koko Hernandez M.D.11/25/2023 12:02 PM Dictation Location: [facility] Transcribed By: [facility] 11/25/23 1202 Dictated By: Koko Hernandez DO 11/25/23 1201 Signed By: 11/25/23 1202 Normal [facility] Cholesterol [Mass/volume] in Serum or PlasmaOrdered By: Josh Melvin on 11-24-2023 Cholesterol [Mass/Vol] 168 mg/dL Normal 140-200 [facility] Comment on above: Chol less than 200 m g/dl low riskChol 201-239 mg/dl borderline riskChol 240 mg/dl and greater high risk Result Comment: Chol less than 200 mg/dl low risk Chol 201-239 mg/dl borderline risk Chol 240 mg/dl and greater high risk Performed By: #### C BC, BMP #### [facility] [address] [place] [address] [place] Cholesterol in LDL Calc [Mas s/Vol]Ordered By: Josh Melvin on 11-24-2023 Cholesterol in LDL [Mass/Vol] 70 mg/dL 0-100 [facility] Comment on above: LDL ATP III CLASSIFI CATIONLDL less than 100 mg/dL OptimalLDL 100-129 mg/dL Near or above optimalLDL 130-159 mg/dL Borderline highLDL 160-189 mg/dL HighLDL greater than 189 mg/dL Very high Cholesterol in VLDL Calc [Ma ss/Vol]Ordered By: Josh Melvin on 11-24-2023 Cholesterol in VLDL [Mass/Vol] 43 mg/dL [facility] Folate [Mass/volume] in Seru m or PlasmaOrdered By: Oliver Kerr on 11-24-2023 Folate [Mass/Vol] 14.9 ng/mL >5.9 [facility] Comment on above: Folate reference ran ge: >5.9 ng/mlThe WHO technical consultation on folate and vitamin [id number] has determined that folate concentrations lessthan 4 ng/ml are considered deficient. Lipid Panelon 11-24-2023 LDL Cholesterol,Calculate d 70 mg/dL Normal 0-100 [facility] Comment on above: Result Comment: LDL ATP III CLASSIFICATION LDL less than 100 mg/dL Optimal LDL 100-129 mg/dL Near or above optimal LDL 130-159 mg/dL Borderline high LDL 160-189 mg/dL High LDL greater than 189 mg/dL Very high Performed By: #### C BC, BMP #### [facility] [address] [place] [address] [place] Triglyceride w/Reflex 218 mg/dL High 0-149 [facility] Comment on above: Result Comment: TRIG ATP III CLASSIFICATION TRIG less than 150 mg/dL Normal TRIG 150-199 mg/dL Borderline high TRIG 200-500 mg/dL High TRIG greater than 500 mg/dL Very high Standard traceable to the Center for Disease Conrtrol and Prevention (CDC) test method. Performed By: #### C BC, BMP #### [address] VLDL CHOLESTEROL 43 mg/dL Normal [facility] Comment on above: Performed By: #### C BC, BMP #### [facility] [address] Methylmalonic Acidon 024 Methylmalonic Acid 169 Normal 0-378 [facility] Comment on above: Result Comment: This test was developed and its performance characteristics determined by [employer]. It has not been cleared or approved by the Food and Drug Administration. Performed at: [facility] [address] [id number] Data Technician: Caroline Romo MD, Phone: [phone] PERFORMED BY: [place] [address] PATHOLOGIST EVAPORATOR OPERATOR MOLASSES CLEVE CANDELARIA M.D. Performed By: #### T SH3, [id number] #### [address] #### METH #### [facility] , PSA Screen (Yearly Only)on 0 11-24-2023 PSA Screen (Yearly Only) 1.380 ng/mL Normal 0.000-4.000 [facility] Comment on above: Order Comment: [...] methods may not be comparable. [facility] inspectors and regulatory officers and method: [employer], CHEMILUMINESCENT IMMUNOASSAY. PERFORMED BY: [address] [place] [address] PATHOLOGIST EVAPORATOR OPERATOR MOLASSES CLEVE CANDELARIA M.D. Performed By: #### C BC, BMP #### [address] Prostate specific Ag [Mass/v olume] in Serum or PlasmaOrdered By: Josh Melvin on 11-24-2023 Prostate specific Ag [Mass/Vol] 1.380 ng/mL 0.000-4.000 [facility] Comment on above: Serial tumor marker results determined by assays using different manufacturers or methods may not be comparable.[facility] inspectors and regulatory officers and method:[employer], CHEMILUMINESCENT IMMUNOASSAY. Serum or plasma high density lipoprotein (HDL) cholesterol measurementOrdered By: Josh Melvin on 11-24-2023 Cholesterol in HDL [Mass/Vol] 54 mg/dL Normal 23-92 [facility] Comment on above: HDL CHOL ATP-III CLA SSIFICATION Cardiovascular RiskHDL > or equal to 60 mg/dL LOWHDL < 40 mg/dL HIGH Result Comment: HDL CHOL ATP-III CLASSIFICATION Cardiovascular Risk HDL > or equal to 60 mg/dL LOW HDL < 40 mg/dL HIGH Performed By: #### C BC, BMP #### [facility] [address] [place] [address] Serum or plasma methylmalona te measurement (moles/volume)Ordered By: Oliver Kerr on 11-24-2023 Methylmalonate [Moles/Vol] 169 nmol/L 0-378 [facility] Comment on above: This test was develo ped and its performance characteristicsdetermined by [facility]. It has not been cleared orapproved by the Food and Drug Administration.Performed at: [address] [id number] Director: Caroline Romo MD, Phone: [phone] Serum or plasma total choles terol/high density lipoprotein (HDL) cholesterol mass ratOrdered By: Josh Melvin on 11-24-2023 Cholesterol.total/Cho lesterol in HDL [Mass ratio] 3.1 {ratio} Normal <5.0 [facility] Comment on above: Result Comment: PERF ORMED BY: [place] [address] PATHOLOGIST EVAPORATOR OPERATOR MOLASSES CLEVE CANDELARIA M.D. Performed By: #### C BC, BMP #### [address] Thyrotropin [Units/volume] i n Serum or PlasmaOrdered By: Oliver Kerr on 11-24-2023 TSH Qn 2.24 m[IU]/L Normal 0.45-5.33 [facility] Comment on above: Result Comment: PERF ORMED BY: [place] [address] PATHOLOGIST EVAPORATOR OPERATOR MOLASSES CLEVE CANDELARIA M.D. Performed By: #### T SH3, [id number] #### [address] #### METH #### [facility] , Triglyceride [Mass/volume] i n Serum or PlasmaOrdered By: Josh Melvin on 11-24-2023 Triglyceride [Mass/Vol] 218 mg/dL 0-149 [facility] Comment on above: TRIG ATP III CLASSIF ICATIONTRIG less than 150 mg/dL NormalTRIG 150-199 mg/dL Borderline highTRIG 200-500 mg/dL High TRIG greater than 500 mg/dL Very highStandard traceable to the Center for Disease Conrtrol and Prevention (CDC) test method. Vit. B12/Folate Profileon Folate 14.9 ng/mL Normal >5.9 [facility] Comment on above: Result Comment: [place] reference range: >5.9 ng/ml The WHO technical consultation on folate and vitamin b12 deficiencies has determined that folate concentrations less than 4 ng/ml are considered deficient. Performed By: #### T SH3, [id number] #### [facility] [address] [place] [address] [place] #### METH #### [facility] , Vitamin B12 ser/plasOrdered By: Oliver Kerr on 11-24-2023 Cobalamin (Vitamin B12) [Mass/Vol] 365 pg/mL Normal 180-914 [facility] Comment on above: Performed By: #### T SH3, [id number] #### [place] [address] [place] #### METH #### [facility] , Amphetamine Screen Ql (U)Ord ered By: Kenroy Domínguez on 11-03-2023 Amphetamines Ql (U) Negative Negative [facility] Barbiturates [Presence] in U rine by Screen methodOrdered By: Kenroy Domínguez on 11-03-2023 Barbiturates Screen Ql (U) Negative Negative [facility] Benzodiazepines Screen Ql (U )Ordered By: Kenroy Domínguez on 11-03-2023 Benzodiazepines Ql (U) Negative Negative [facility] Benzoylecgonine [Presence] i n Urine by Screen methodOrdered By: Kenroy Domínguez on 11-03-2023 Benzoylecgonine Screen Ql (U) Negative Negative [facility] Cannabinoids [Presence] in U rine by Screen methodOrdered By: Kenroy Domínguez on 11-03-2023 Cannabinoids Screen Ql (U) Positive Negative [facility] Comment on above: These are unconfirme d results and should not be used for legal purposes. Drug Cut-Off Concentration: AMPH 1000 ng/mL ZE 200 ng/mL DUANE 200 ng/mL COCM 300 ng/mL OP 300 ng/mL PCP 25 ng/mL THC 20 ng/mL Capillary blood glucose ezra urement by glucometer (mass/volume)Ordered By: Yogesh Becker on 11-03-2023 Glucose [Mass/Vol] 185 mg/dL Normal [facility] Comment on above: Random Glucose Refer ence Range is dependent on time and content of last meal. Glucose of more than 200 mg/dL in a nonstressed, ambulatory subject supports the diagnosis of Diabetes Mellitus. Result Comment: [place] Glucose Reference Range is dependent on time and content of last meal. Glucose of more than 200 mg/dL in a nonstressed, ambulatory subject supports the diagnosis of Diabetes Mellitus. PERFORMED BY: [place] [address] PATHOLOGIST EVAPORATOR OPERATOR MOLASSES CLEVE CANDELARIA M.D. Performed By: #### C BC, BMP #### [place] [address] [place] Drug Screen,Urineon 11-03-19 24 Amphetamine Screen,Urine Negative Normal Negative [facility] Comment on above: Performed By: #### C BC, BMP #### [address] Barbiturate Screen,Urine Negative Normal Negative [facility] Comment on above: Performed By: #### C BC, BMP #### [address] Benzodiazepines Screen,Urine Negative Normal Negative [facility] Comment on above: Performed By: #### C BC, BMP #### [address] Cannabinoid Screen,Urine Positive High Negative [facility] Comment on above: Result Comment: Thes e are unconfirmed results and should not be used for legal purposes. Drug Cut-Off Concentration: AMPH 1000 ng/mL ZE 200 ng/mL DUANE 200 ng/mL COCM 300 ng/mL OP 300 ng/mL PCP 25 ng/mL THC 20 ng/mL PERFORMED BY: [place] [address] PATHOLOGIST EVAPORATOR OPERATOR MOLASSES CLEVE CANDELARIA M.D. Performed By: #### C BC, BMP #### [address] Cocaine Screen,Urine Negative Normal Negative [facility] Comment on above: Performed By: #### C BC, BMP #### [place] [address] [place] Opiate Screen,Urine Negative Normal Negative [facility] Comment on above: Performed By: #### C BC, BMP #### [address] Phencyclidine Screen,Urine Negative Normal Negative [facility] Comment on above: Performed By: #### C BC, BMP #### [address] Glucose Poct Glucometerson 0 11-03-2023 Glucose [Mass/Vol] 180 mg/dL Normal [facility] Comment on above: Result Comment: [facility] Glucose Reference Range is dependent on time and content of last meal. Glucose of more than 200 mg/dL in a nonstressed, ambulatory subject supports the diagnosis of Diabetes Mellitus. PERFORMED BY: [place] [address] PATHOLOGIST EVAPORATOR OPERATOR MOLASSES CLEVE CANDELARIA M.D. Performed By: #### G LUDANAY #### Point of Care testing , Opiates [Presence] in Urine by Screen methodOrdered By: Kenroy Domínguez on 11-03-2023 Opiates Screen Ql (U) Negative Negative [facility] Phencyclidine Screen Ql (U)O rdered By: Kenroy Domínguez on 11-03-2023 Phencyclidine Ql (U) Negative Negative [facility] Automated basophil %Ordered By: Yogesh Becker on 10-23-2023 Basophils/100 WBC (Bld) 0.8 % Normal . [facility] Comment on above: Performed By: #### B MP, CBC #### [facility] [address] [place] [address] Automated basophil countOrde red By: Yogesh Becker on 10-23-2023 Basophils (Bld) [#/Vol] 0.0 10*3/uL Normal 0.0-0.2 [facility] Comment on above: Result Comment: PERF ORMED BY: [facility] [address] [place] [address] PATHOLOGIST EVAPORATOR OPERATOR MOLASSES CLEVE CANDELARIA M.D. Performed By: #### B MP, CBC #### [facility] [address] Automated blood monocyte cou ntOrdered By: Yogesh Becker on 10-23-2023 Monocytes (Bld) [#/Vol] 0.5 10*3/uL Normal 0.0-0.8 [facility] Comment on above: Performed By: #### B MP, CBC #### [facility] [address] [place] [address] [place] Automated eosinophil %Ordere d By: Yogesh Becker on 10-23-2023 Eosinophils/100 WBC (Bld) 3.6 % Normal . [facility] Comment on above: Performed By: #### B MP, CBC #### [address] Automated eosinophil countOr dered By: Yogesh Becker on 10-23-2023 Eosinophils (Bld) [#/Vol] 0.2 10*3/uL Normal 0.0-0.45 [facility] Comment on above: Performed By: #### B MP, CBC #### [address] Automated monocyte %Ordered By: Yogesh Becker on 10-23-2023 Monocytes/100 WBC (Bld) 9.4 % Normal . [facility] Comment on above: Performed By: #### B MP, CBC #### [address] Automated neutrophil %Ordere d By: Yogesh Becker on 10-23-2023 Neutrophils/100 WBC (Bld) 59.4 % Normal . [facility] Comment on above: Performed By: #### B MP, CBC #### [address] Basic Metabolic Panelon 09-27 GFR/1.73 sq M.predicted MDRD (S/P/Bld) [Vol rate/Area] mL/min/{1.73_m2} Normal [facility] Comment on above: Performed By: #### C BC, BMP #### [address] Calcium [Mass/volume] in Ser um or PlasmaOrdered By: Yogesh Becker on 10-23-2023 Calcium [Mass/Vol] 8.8 mg/dL Normal 8.6-10.3 [facility] Comment on above: Result Comment: PERF ORMED BY: [place] [address] PATHOLOGIST EVAPORATOR OPERATOR MOLASSES CLEVE CANDELARIA M.D. Performed By: #### C BC, BMP #### [address] Carbon dioxide, total [Moles /volume] in Serum or PlasmaOrdered By: Yogesh Becker on 10-23-2023 CO2 [Moles/Vol] 33.8 mmol/L High 21.0-31.0 [facility] Comment on above: Performed By: #### C BC, BMP #### [address] Chloride [Moles/volume] in S raffi or PlasmaOrdered By: Yogesh Becker on 10-23-2023 Chloride [Moles/Vol] 100 mmol/L Normal 98-107 [facility] Comment on above: Performed By: #### C BC, BMP #### [address] Complete Blood Count Auto Di ffon 10-23-2023 Mean Corpuscular HGB Conc 33.8 g/dL Normal 32.5-35.6 [facility] Comment on above: Performed By: #### B MP, CBC #### [address] NRBC% 0.1 /100{WBC} Normal 0-0.5 [facility] Comment on above: Performed By: #### B MP, CBC #### [address] Creatinine [Mass/volume] in Serum or PlasmaOrdered By: Yogesh Becker on 10-23-2023 Creatinine [Mass/Vol] 0.71 mg/dL Normal 0.70-1.30 [facility] Comment on above: Performed By: #### C BC, BMP #### [place] [address] [place] Erythrocyte distribution wid th [Ratio] by Automated countOrdered By: Yogesh Becker on 10-23-2023 Erythrocyte distribution width (RBC) [Ratio] 14.3 % Normal 12.0-14.8 [facility] [facility] Comment on above: Performed By: #### B MP, CBC #### [address] [place] [address] [place] Erythrocytes [#/volume] in B lood by Automated countOrdered By: Yogesh Becker on 10-23-2023 RBC (Bld) [#/Vol] 5.01 10*6/uL Normal 3.90-5.60 [facility] Comment on above: Performed By: #### B MP, CBC #### [place] [address] [place] Glucose [Mass/volume] in Ser um or PlasmaOrdered By: Yogesh Becker on 10-23-2023 Glucose [Mass/Vol] 105 mg/dL High 70-100 [facility] Comment on above: ADA recommended refe rence rangeRandom Glucose Reference Range is dependent on time and content of last meal. Glucose of more than 200 mg/dL in a nonstressed, ambulatory subject supports the diagnosis of Diabetes Mellitus. Result Comment: [place] Glucose Reference Range is dependent on time and content of last meal. Glucose of more than 200 mg/dL in a nonstressed, ambulatory subject supports the diagnosis of Diabetes Mellitus. ADA recommended reference range Performed By: #### C BC, BMP #### [address] Hematocrit [Volume Fraction] of Blood by Automated countOrdered By: Yogesh Becker on 10-23-2023 Hematocrit (Bld) [Volume fraction] 48.1 % Normal 38.8-50.0 [facility] Comment on above: Performed By: #### B MP, CBC #### [place] [address] [place] Hemoglobin [Mass/volume] in BloodOrdered By: Yogesh Becker on 10-23-2023 Hemoglobin (Bld) [Mass/Vol] 16.2 g/dL Normal 13.0-17.0 [facility] Comment on above: Performed By: #### B MP, CBC #### [address] Leukocytes [#/volume] correc charanjit for nucleated erythrocytes in Blood by Automated counOrdered By: Yogesh Becker on 10-23-2023 WBC corrected for nucl RBC Auto (Bld) [#/Vol] 4.9 10*3/uL 4.1-10.5 [facility] Leukocytes [#/volume] in Blo od by Automated countOrdered By: Yogesh Becker on 10-23-2023 WBC (Bld) [#/Vol] 4.9 10*3/uL Normal 4.1-10.5 [facility] Comment on above: Performed By: #### B MP, CBC #### [facility] [address] [place] [address] Lymphocytes [#/volume] in Bl ood by Automated countOrdered By: Yogesh Becker on 10-23-2023 Lymphocytes (Bld) [#/Vol] 1.3 10*3/uL Normal 1.00-4.8 [facility] Comment on above: Performed By: #### B MP, CBC #### [facility] [address] [place] [address] Lymphocytes/100 leukocytes i n Blood by Automated countOrdered By: Yogesh Becker on 10-23-2023 Lymphocytes/100 WBC (Bld) 26.8 % Normal . [facility] Comment on above: Performed By: #### B MP, CBC #### [facility] [address] [place] [address] MCH [Entitic mass] by Automa charanjit countOrdered By: Yogesh Becker on 10-23-2023 MCH (RBC) [Entitic mass] 32.4 pg Normal 27.5-35.2 [facility] Comment on above: Performed By: #### B MP, CBC #### [address] MCHC Auto (RBC) [Mass/Vol]Or dered By: Yogesh Becker on 10-23-2023 MCHC (RBC) [Mass/Vol] 33.8 g/dL 32.5-35.6 [facility] MCV [Entitic volume] by Auto mated countOrdered By: Yogesh Becker on 10-23-2023 MCV (RBC) [Entitic vol] 96.0 fL Normal 83.5-101 [facility] Comment on above: Performed By: #### B MP, CBC #### [facility] [address] Neutrophils [#/volume] in Bl ood by Automated countOrdered By: Yogesh Becker on 10-23-2023 Neutrophils (Bld) [#/Vol] 2.9 10*3/uL Normal 1.8-7.7 [facility] Comment on above: Performed By: #### B MP, CBC #### [facility] [address] No Panel InformationOrdered By: Yogesh Becker on 10-23-2023 Estimated GFR (CKD-EPI) > 60.0 mL/Min [facility] Creatinine Clearance (Chem N/A [facility] Nucleated erythrocytes [Pres ence] in Blood by Automated countOrdered By: Yogesh Becker on 10-23-2023 Nucleated RBC Auto Ql (Bld) 0.1 /100{WBC} 0-0.5 [facility] Platelet mean volume [Entiti c volume] in Blood by Automated countOrdered By: Yogesh Becker on 10-23-2023 Platelet mean volume (Bld) [Entitic vol] 8.4 fL Normal 6.6-10.1 [facility] Comment on above: Performed By: #### B MP, CBC #### [address] Platelets [#/volume] in Bloo d by Automated countOrdered By: Yogesh Becker on 10-23-2023 Platelets (Bld) [#/Vol] 173 10*3/uL Normal 150-450 [facility] Comment on above: Performed By: #### B MP, CBC #### [facility] [address] [place] [address] Potassium [Moles/volume] in Serum or PlasmaOrdered By: Yogesh Becker on 10-23-2023 Potassium [Moles/Vol] 4.5 mmol/L Normal 3.5-5.1 [facility] Comment on above: Performed By: #### C BC, BMP #### [address] [place] [address] [place] Serum or plasma anion gap de terminationOrdered By: Yogesh Becker on 10-23-2023 Anion gap [Moles/Vol] 9.7 mmol/L Normal 6.0-15.0 [facility] Comment on above: Performed By: #### C BC, BMP #### [facility] [address] Sodium [Moles/volume] in Ser um or PlasmaOrdered By: Yogesh Becker on 10-23-2023 Sodium [Moles/Vol] 139 mmol/L Normal 136-145 [facility] Comment on above: Performed By: #### C BC, BMP #### [address] Urea nitrogen [Mass/volume] in Serum or PlasmaOrdered By: Yogesh Becker on 10-23-2023 Urea nitrogen [Mass/Vol] 18 mg/dL Normal 7-25 [facility] Comment on above: Performed By: #### C BC, BMP #### [address] Amphetamine Screen Ql (U)Ord ered By: Giuesppe Desouza on 10-02-2023 Amphetamines Ql (U) Negative Negative [facility] Barbiturates [Presence] in U rine by Screen methodOrdered By: Giuseppe Desouza on 10-02-2023 Barbiturates Screen Ql (U) Negative Negative [facility] Benzodiazepines Screen Ql (U )Ordered By: Giuseppe Desouza on 10-02-2023 Benzodiazepines Ql (U) Positive Negative [facility] Benzoylecgonine [Presence] i n Urine by Screen methodOrdered By: Giuseppe Desouza on 10-02-2023 Benzoylecgonine Screen Ql (U) Positive Negative [facility] Cannabinoids [Presence] in U rine by Screen methodOrdered By: Giuseppe Desouza on 10-02-2023 Cannabinoids Screen Ql (U) Positive Negative [facility] Comment on above: These are unconfirme d results and should not be used for legal purposes. Drug Cut-Off Concentration: AMPH 1000 ng/mL ZE 200 ng/mL DUANE 200 ng/mL COCM 300 ng/mL OP 300 ng/mL PCP 25 ng/mL THC 20 ng/mL Capillary blood glucose ezra urement by glucometer (mass/volume)Ordered By: Yogesh Becker on 10-02-2023 Glucose [Mass/Vol] 290 mg/dL Normal [facility] Comment on above: Random Glucose Refer ence Range is dependent on time and content of last meal. Glucose of more than 200 mg/dL in a nonstressed, ambulatory subject supports the diagnosis of Diabetes Mellitus. Result Comment: [place] Glucose Reference Range is dependent on time and content of last meal. Glucose of more than 200 mg/dL in a nonstressed, ambulatory subject supports the diagnosis of Diabetes Mellitus. Performed By: #### C BC, BMP #### [address] Drug Screen,Urineon 10-02-20 Amphetamine Screen,Urine Negative Normal Negative [facility] Comment on above: Performed By: #### T SH3, [id number] #### [place] [address] [place] #### METH #### [facility] , Barbiturate Screen,Urine Negative Normal Negative [facility] Comment on above: Performed By: #### T SH3, [id number] #### [place] [address] [place] #### METH #### [facility] , Benzodiazepines Screen,Urine Positive High Negative [facility] Comment on above: Performed By: #### T SH3, [id number] #### [place] [address] [place] #### METH #### [facility] , Cannabinoid Screen,Urine Positive High Negative [facility] Comment on above: Result Comment: Thes e are unconfirmed results and should not be used for legal purposes. Drug Cut-Off Concentration: AMPH 1000 ng/mL ZE 200 ng/mL DUANE 200 ng/mL COCM 300 ng/mL OP 300 ng/mL PCP 25 ng/mL THC 20 ng/mL PERFORMED BY: [place] [address] PATHOLOGIST EVAPORATOR OPERATOR MOLASSES CLEVE CANDELARIA M.D. Performed By: #### T SH3, [id number] #### [facility] [address] [place] [address] [place] #### METH #### [facility] , Cocaine Screen,Urine Positive High Negative [facility] Comment on above: Performed By: #### T SH3, [id number] #### [place] [address] [place] #### METH #### [facility] , Opiate Screen,Urine Negative Normal Negative [facility] Comment on above: Performed By: #### T SH3, [id number] #### [address] #### METH #### [facility] , Phencyclidine Screen,Urine Negative Normal Negative [facility] Comment on above: Performed By: #### T SH3, [id number] #### [place] [address] [place] #### METH #### [facility] , Glucose Poct Glucometerson 1 12-03-2022 Commemt1 Glu2: Cleaned Meter Normal [facility] Comment on above: Result Comment: PERF ORMED BY: [place] [address] PATHOLOGIST EVAPORATOR OPERATOR MOLASSES CLEVE CANDELARIA M.D. Performed By: #### C BC, BMP #### [facility] [address] [place] [address] No Panel InformationOrdered By: Yogesh Becker on 10-02-2023 Bedside Glucose Comment Glu2: cleaned meter [facility] Opiates [Presence] in Urine by Screen methodOrdered By: Giuseppe Desouza on 10-02-2023 Opiates Screen Ql (U) Negative Negative [facility] Phencyclidine Screen Ql (U)O rdered By: Giuseppe Desouza on 10-02-2023 Phencyclidine Ql (U) Negative Negative [facility] POC Glucose Randomon 023 Glucose [Mass/Vol] 192 mg/dL High 70-99 [facility] Comment on above: Performed By: #### C [id number] #### [place] [id number] [place] [address] Glucose [Mass/Vol] 246 mg/dL High 70-99 [facility] Comment on above: Performed By: #### C [id number] #### [address] [address] Automated basophil %Ordered By: Yogesh Becker on 09-23-2023 Basophils/100 WBC (Bld) 0.6 % Normal . [facility] Comment on above: Performed By: #### B MP, CBC #### [address] Automated basophil countOrde red By: Yogesh Becker on 09-23-2023 Basophils (Bld) [#/Vol] 0.1 10*3/uL Normal 0.0-0.2 [facility] Comment on above: Result Comment: PERF ORMED BY: [place] [address] PATHOLOGIST EVAPORATOR OPERATOR MOLASSES CLEVE CANDELARIA M.D. Performed By: #### B MP, CBC #### [address] Automated blood monocyte cou ntOrdered By: Yogesh Becker on 09-23-2023 Monocytes (Bld) [#/Vol] 0.6 10*3/uL Normal 0.0-0.8 [facility] Comment on above: Performed By: #### B MP, CBC #### [address] Automated eosinophil %Ordere d By: Yogesh Becker on 09-23-2023 Eosinophils/100 WBC (Bld) 0.1 % Normal . [facility] Comment on above: Performed By: #### B MP, CBC #### [address] Automated eosinophil countOr dered By: Yogesh Becker on 09-23-2023 Eosinophils (Bld) [#/Vol] 0.0 10*3/uL Normal 0.0-0.45 [facility] Comment on above: Performed By: #### B MP, CBC #### [address] Automated monocyte %Ordered By: Yogesh Becker on 09-23-2023 Monocytes/100 WBC (Bld) 4.6 % Normal . [facility] Comment on above: Performed By: #### B MP, CBC #### [address] Automated neutrophil %Ordere d By: Yogesh Becker on 09-23-2023 Neutrophils/100 WBC (Bld) 81.4 % Normal . [facility] Comment on above: Performed By: #### B MP, CBC #### [address] Basic Metabolic Panelon 08-28 GFR/1.73 sq M.predicted MDRD (S/P/Bld) [Vol rate/Area] mL/min/{1.73_m2} Normal [facility] Comment on above: Performed By: #### B MP, CBC #### [address] Calcium [Mass/volume] in Ser um or PlasmaOrdered By: Yogesh Becker on 09-23-2023 Calcium [Mass/Vol] 9.3 mg/dL Normal 8.6-10.3 [facility] Comment on above: Result Comment: PERF ORMED BY: [place] [address] PATHOLOGIST EVAPORATOR OPERATOR MOLASSES CLEVE CANDELARIA M.D. Performed By: #### B MP, CBC #### [address] Carbon dioxide, total [Moles /volume] in Serum or PlasmaOrdered By: Yogesh Becker on 09-23-2023 CO2 [Moles/Vol] 30.6 mmol/L Normal 21.0-31.0 [facility] Comment on above: Performed By: #### B MP, CBC #### [facility] [address] [place] [address] Chloride [Moles/volume] in S raffi or PlasmaOrdered By: Yogesh Becker on 09-23-2023 Chloride [Moles/Vol] 96 mmol/L Low 98-107 [facility] Comment on above: Performed By: #### B MP, CBC #### [address] Complete Blood Count Auto Di ffon 09-23-2023 Mean Corpuscular HGB Conc 33.4 g/dL Normal 32.5-35.6 [facility] Comment on above: Performed By: #### B MP, CBC #### [facility] [address] [place] [address] NRBC% 0.0 /100{WBC} Normal 0-0.5 [facility] Comment on above: Performed By: #### B MP, CBC #### [facility] [address] [place] [address] Creatinine [Mass/volume] in Serum or PlasmaOrdered By: Yogesh Becker on 09-23-2023 Creatinine [Mass/Vol] 1.01 mg/dL Normal 0.70-1.30 [facility] Comment on above: Performed By: #### B MP, CBC #### [address] ECG 12 lead ECGon 09-23-2023 ECG 12 lead ECG [facility] Main [place] [address] [place] [address] Electrocardiograph Report Signed Patient: Koko Meier MR#: [id number] : 1960 Acct:[id number] Age/Sex: 62 / M ADM Date: 09/23/23 Loc: Room: Type: [facility] Attending Dr: Yogesh Becker MD Ordering Provider: [...] axis shifted right Confirmed by JOSEY MATUTE [facility] ([id number]) on 09/23/2023 10:29:43 PM Referred By: OLEGARIO BECKER Electronically Signed By:KIRSTIE CERVANTES MD [facility] Transcribed By: MUS Signed By Barron Cervantes MD 09/23/232228 Normal [facility] Erythrocyte distribution wid th [Ratio] by Automated countOrdered By: Yogesh Becker on 09-23-2023 Erythrocyte distribution width (RBC) [Ratio] 13.9 % Normal 12.0-14.8 [facility] Comment on above: Performed By: #### B MP, CBC #### [facility] [address] [place] [address] [place] Erythrocytes [#/volume] in B lood by Automated countOrdered By: Yogesh Becker on 09-23-2023 RBC (Bld) [#/Vol] 4.87 10*6/uL Normal 3.90-5.60 [facility] Comment on above: Performed By: #### B MP, CBC #### [facility] [address] [place] [id number] [place] Glucose [Mass/volume] in Ser um or PlasmaOrdered By: Yogesh Becker on 09-23-2023 Glucose [Mass/Vol] 412 mg/dL High 70-100 [facility] Comment on above: ADA recommended refe rence rangeRandom Glucose Reference Range is dependent on time and content of last meal. Glucose of more than 200 mg/dL in a nonstressed, ambulatory subject supports the diagnosis of Diabetes Mellitus. Result Comment: [facility] Glucose Reference Range is dependent on time and content of last meal. Glucose of more than 200 mg/dL in a nonstressed, ambulatory subject supports the diagnosis of Diabetes Mellitus. ADA recommended reference range Performed By: #### B MP, CBC #### [address] Hematocrit [Volume Fraction] of Blood by Automated countOrdered By: Yogesh Becker on 09-23-2023 Hematocrit (Bld) [Volume fraction] 47.2 % Normal 38.8-50.0 [facility] Comment on above: Performed By: #### B MP, CBC #### [address] Hemoglobin [Mass/volume] in BloodOrdered By: Yogesh Becker on 09-23-2023 Hemoglobin (Bld) [Mass/Vol] 15.7 g/dL Normal 13.0-17.0 [facility] Comment on above: Performed By: #### B MP, CBC #### [address] Leukocytes [#/volume] correc charanjit for nucleated erythrocytes in Blood by Automated counOrdered By: Yogesh Becker on 09-23-2023 WBC corrected for nucl RBC Auto (Bld) [#/Vol] 12.4 10*3/uL 4.1-10.5 [facility] Leukocytes [#/volume] in Blo od by Automated countOrdered By: Yogesh Becker on 09-23-2023 WBC (Bld) [#/Vol] 12.4 10*3/uL High 4.1-10.5 [facility] Comment on above: Performed By: #### B MP, CBC #### [place] [address] [place] Lymphocytes [#/volume] in Bl ood by Automated countOrdered By: Yogesh Becker on 09-23-2023 Lymphocytes (Bld) [#/Vol] 1.7 10*3/uL Normal 1.00-4.8 [facility] Comment on above: Performed By: #### B MP, CBC #### [address] Lymphocytes/100 leukocytes i n Blood by Automated countOrdered By: Yogesh Becker on 09-23-2023 Lymphocytes/100 WBC (Bld) 13.3 % Normal . [facility] Comment on above: Performed By: #### B MP, CBC #### [address] MCH [Entitic mass] by Automa charanjit countOrdered By: Yogesh Becker on 09-23-2023 MCH (RBC) [Entitic mass] 32.3 pg Normal 27.5-35.2 [facility] Comment on above: Performed By: #### B MP, CBC #### [address] MCHC Auto (RBC) [Mass/Vol]Or dered By: Yogesh Becker on 09-23-2023 MCHC (RBC) [Mass/Vol] 33.4 g/dL 32.5-35.6 [facility] MCV [Entitic volume] by Auto mated countOrdered By: Yogesh Becker on 09-23-2023 MCV (RBC) [Entitic vol] 96.9 fL Normal 83.5-101 [facility] Comment on above: Performed By: #### B MP, CBC #### [address] Neutrophils [#/volume] in Bl ood by Automated countOrdered By: Yogesh Becker on 09-23-2023 Neutrophils (Bld) [#/Vol] 10.1 10*3/uL High 1.8-7.7 [facility] Comment on above: Performed By: #### B MP, CBC #### [facility] [address] [place] [address] No Panel InformationOrdered By: Yogesh Becker on 09-23-2023 Estimated GFR (CKD-EPI) > 60.0 mL/Min [facility] Creatinine Clearance (Chem N/A [facility] Nucleated erythrocytes [Pres ence] in Blood by Automated countOrdered By: Yogesh Becker on 09-23-2023 Nucleated RBC Auto Ql (Bld) 0.0 /100{WBC} 0-0.5 [facility] Platelet mean volume [Entiti c volume] in Blood by Automated countOrdered By: Yogesh Becker on 09-23-2023 Platelet mean volume (Bld) [Entitic vol] 8.3 fL Normal 6.6-10.1 [facility] Comment on above: Performed By: #### B MP, CBC #### [facility] [address] Platelets [#/volume] in Bloo d by Automated countOrdered By: Yogesh Becker on 09-23-2023 Platelets (Bld) [#/Vol] 203 10*3/uL Normal 150-450 [facility] Comment on above: Performed By: #### B MP, CBC #### [facility] [address] [place] [address] Potassium [Moles/volume] in Serum or PlasmaOrdered By: Yogesh Becker on 09-23-2023 Potassium [Moles/Vol] 4.7 mmol/L Normal 3.5-5.1 [facility] Comment on above: Performed By: #### B MP, CBC #### [facility] [address] [place] [address] Serum or plasma anion gap de terminationOrdered By: Yogesh Becker on 09-23-2023 Anion gap [Moles/Vol] 13.1 mmol/L Normal 6.0-15.0 [facility] Comment on above: Performed By: #### B MP, CBC #### [facility] [address] [place] [address] [place] Sodium [Moles/volume] in Ser um or PlasmaOrdered By: Yogesh Becker on 09-23-2023 Sodium [Moles/Vol] 135 mmol/L Low 136-145 [facility] Comment on above: Performed By: #### B MP, CBC #### [facility] [address] [place] [address] [place] Urea nitrogen [Mass/volume] in Serum or PlasmaOrdered By: Yogesh Becker on 09-23-2023 Urea nitrogen [Mass/Vol] 28 mg/dL High 05-20 [facility] Comment on above: Performed By: #### B MP, CBC #### [facility] [address] [place] [id number] [facility] CT ABDOMEN PELVIS W IV CONTR Ammon [...] spine 5V*on 07-27 XR cervical spine 5V* [facility] Main [address] [address] XRay Report Signed Patient: Koko Meier MR#: [id number] : 1960 Acct:[id number] Age/Sex: 62 / M ADM Date: 08/11/23 Loc: [place] Room: Type: [facility] Attending Dr: Savanna Mcclain MD Copies to: [...] Koko Hernandez M.D.08/11/2023 5:00 PM Dictation Location: [place] [address] Transcribed By: [facility] 08/11/231699 Dictated By: Koko Hernandez DO 08/11/23 2494 Signed By: 08/11/231699 Joe [facility] XR thoracic spine 3V*on 07-27 XR thoracic spine 3V* [facility] Main [address] [address] XRay Report Signed Patient: Koko Meier MR#: [id number] : 1960 Acct:[id number] Age/Sex: 62 / M ADM Date: 08/11/23 Loc: [place] Room: Type: REG CLI Attending Dr: Savanna Mcclain MD Copies [...] Koko Hernandez M.D.08/11/2023 5:01 PM Dictation Location: [place] [address] Transcribed By: [facility] 08/11/231700 Dictated By: Koko Hernandez DO 08/11/231699 Signed By: 08/11/23 170 Normal [facility] XR lumbar spine 6V w bending on 08-01-2023 XR lumbar spine 6V w bending [facility] Main [place] [address] [place] [address] XRay Report Signed Patient: Koko Meier MR#: [id number] : 1960 Acct:[id number] Age/Sex: 62 / M ADM Date: 08/01/23 Loc: XD Room: Type: [facility] CLI Attending Dr: Josh Melvin DO [...] Monika Eastman M.D.08/01/2023 1:06 PM Dictation [facility] Transcribed By: SHIRLEY 08/01/23 1306 Dictated By: Monika Eastman MD 08/01/23 1210 Signed By: 08/01/23 1306 Normal [facility] A1C with Estimated Average Lynn jenkins 04-21-2023 Glucose [Mass/Vol] 197 mg/dL Normal [facility] Comment on above: Result Comment: PERF ORMED BY: [place] [address] PATHOLOGIST EVAPORATOR OPERATOR MOLASSES CLEVE CANDELARIA M.D. Performed By: #### C AMAIRANI, ADITI #### [facility] [address] [place], [place] [id number] [place] Alanine aminotransferase [En zymatic activity/volume] in Serum or PlasmaOrdered By: Josh Melvin on 04-21-2023 ALT [Catalytic activity/Vol] 19 U/L Normal [facility] Comment on above: Order Comment: PT FA STED 12 HOURS Performed By: #### C AMAIRANI, BMP #### [address] [address] [place] Albumin [Mass/volume] in Ser um or Plasma by Bromocresol green (BCG) dye binding methoOrdered By: Josh Bunting on 04-21-2023 Albumin BCG dye [Mass/Vol] 4.2 g/dL 3.5-5.7 [facility] Alkaline phosphatase [Enzyma tic activity/volume] in Serum or PlasmaOrdered By: Josh Bunting on 04-21-2023 ALP [Catalytic activity/Vol] 67 U/L Normal 34-104 [facility] Comment on above: Order Comment: PT FA STED 12 HOURS Performed By: #### C BC, BMP #### [address] Aspartate aminotransferase [ Enzymatic activity/volume] in Serum or PlasmaOrdered By: Josh Bunting on 04-21-2023 AST [Catalytic activity/Vol] 16 U/L Normal 13-39 [facility] Comment on above: Order Comment: PT FA STED 12 HOURS Performed By: #### C BC, BMP #### [address] Automated basophil %Ordered By: Josh Bunting on 04-21-2023 Basophils/100 WBC (Bld) 0.9 % Normal . [facility] Comment on above: Performed By: #### C BC, BMP #### [address] Automated basophil countOrde red By: Josh Bunting on 04-21-2023 Basophils (Bld) [#/Vol] 0.1 10*3/uL Normal 0.0-0.2 [facility] Comment on above: Result Comment: PERF ORMED BY: [place] [address] PATHOLOGIST EVAPORATOR OPERATOR MOLASSES CLEVE CANDELARIA M.D. Performed By: #### C BC, BMP #### [address] Automated blood monocyte cou ntOrdered By: Josh Bunting on 04-21-2023 Monocytes (Bld) [#/Vol] 0.4 10*3/uL Normal 0.0-0.8 [facility] Comment on above: Performed By: #### C BC, BMP #### [facility] [address] Automated eosinophil %Ordere d By: Josh Bunting on 04-21-2023 Eosinophils/100 WBC (Bld) 2.1 % Normal . [facility] Comment on above: Performed By: #### C BC, BMP #### [address] Automated eosinophil countOr dered By: Josh Bunting on 04-21-2023 Eosinophils (Bld) [#/Vol] 0.2 10*3/uL Normal 0.0-0.45 [facility] Comment on above: Performed By: #### C BC, BMP #### [address] Automated monocyte %Ordered By: Josh Bunting on 04-21-2023 Monocytes/100 WBC (Bld) 5.5 % Normal . [facility] Comment on above: Performed By: #### C BC, BMP #### [address] Automated neutrophil %Ordere d By: Josh Bunting on 04-21-2023 Neutrophils/100 WBC (Bld) 65.2 % Normal . [facility] Comment on above: Performed By: #### C BC, BMP #### [address] Bilirubin.total [Mass/volume ] in Serum or PlasmaOrdered By: Josh Bunting on 04-21-2023 Bilirubin [Mass/Vol] 0.4 mg/dL Normal 0.3-1.0 [facility] Comment on above: Order Comment: PT FA STED 12 HOURS Performed By: #### C BC, BMP #### [address] Calcium [Mass/volume] in Ser um or PlasmaOrdered By: Josh Bunting on 04-21-2023 Calcium [Mass/Vol] 9.3 mg/dL Normal 8.6-10.3 [facility] Comment on above: Order Comment: PT FA STED 12 HOURS Performed By: #### C BC, BMP #### [facility] [address] [place] [id number] [place] Carbon dioxide, total [Moles /volume] in Serum or PlasmaOrdered By: Josh Bunting on 04-21-2023 CO2 [Moles/Vol] 30.3 mmol/L Normal 21.0-31.0 [facility] Comment on above: Order Comment: PT FA STED 12 HOURS Performed By: #### C BC, BMP #### [facility] [address] [place] [id number] [place] Chloride [Moles/volume] in S raffi or PlasmaOrdered By: Josh Bunting on 04-21-2023 Chloride [Moles/Vol] 99 mmol/L Normal 98-107 [facility] Comment on above: Order Comment: PT FA STED 12 HOURS Performed By: #### C BC, BMP #### [facility] [address] [place] [address] [place] Cholesterol [Mass/volume] in Serum or PlasmaOrdered By: Josh Bunting on 04-21-2023 Cholesterol [Mass/Vol] 300 mg/dL High 140-200 [facility] Comment on above: Chol less than 200 m g/dl low riskChol 201-239 mg/dl borderline riskChol 240 mg/dl and greater high risk Order Comment: PT FA STED 12 HOURS Result Comment: Chol less than 200 mg/dl low risk Chol 201-239 mg/dl borderline risk Chol 240 mg/dl and greater high risk Performed By: #### C BC, BMP #### [facility] [address] [place] [id number] [place] Cholesterol in LDL Calc [Mas s/Vol]Ordered By: Josh Bunting on 04-21-2023 Cholesterol in LDL [Mass/Vol] 207 mg/dL 0-100 [facility] Comment on above: LDL ATP III CLASSIFI CATIONLDL less than 100 mg/dL OptimalLDL 100-129 mg/dL Near or above optimalLDL 130-159 mg/dL Borderline highLDL 160-189 mg/dL HighLDL greater than 189 mg/dL Very high Cholesterol in VLDL Calc [Ma ss/Vol]Ordered By: Josh Bunting on 04-21-2023 Cholesterol in VLDL [Mass/Vol] 32 mg/dL [facility] Complete Blood Count Auto Di ffon 04-21-2023 Mean Corpuscular HGB Conc 34.2 g/dL Normal 32.5-35.6 [facility] Comment on above: Performed By: #### C BC, BMP #### [address] NRBC% 0.0 /100{WBC} Normal 0-0.5 [facility] Comment on above: Performed By: #### C BC, BMP #### [address] Comprehensive Metabolic Pane brennen 04-21-2023 Albumin [Mass/Vol] 4.2 g/dL Normal 3.5-5.7 [facility] Comment on above: Order Comment: PT FA STED 12 HOURS Performed By: #### C BC, BMP #### [address] GFR/1.73 sq M.predicted MDRD (S/P/Bld) [Vol rate/Area] mL/min/{1.73_m2} Normal [facility] Comment on above: Order Comment: PT FA STED 12 HOURS Performed By: #### C BC, BMP #### [address] Creatinine [Mass/volume] in Serum or PlasmaOrdered By: Josh Melvin on 04-21-2023 Creatinine [Mass/Vol] 0.90 mg/dL Normal 0.70-1.30 [facility] Comment on above: Order Comment: PT FA STED 12 HOURS Performed By: #### C BC, BMP #### [address] Erythrocyte distribution wid th [Ratio] by Automated countOrdered By: Josh Melvin on 04-21-2023 Erythrocyte distribution width (RBC) [Ratio] 15.0 % High 12.0-14.8 [facility] Comment on above: Performed By: #### C BC, BMP #### [place] [address] [place] Erythrocytes [#/volume] in B lood by Automated countOrdered By: Josh Mlevin on 04-21-2023 RBC (Bld) [#/Vol] 5.13 10*6/uL Normal 3.90-5.60 [facility] Comment on above: Performed By: #### C AMAIRANI, BMP #### [facility] [address] [place] [address] [place] Glucose [Mass/volume] in Ser um or PlasmaOrdered By: Josh Melvin on 04-21-2023 Glucose [Mass/Vol] 149 mg/dL High 70-100 [facility] Comment on above: ADA recommended refe rence rangeRandom Glucose Reference Range is dependent on time and content of last meal. Glucose of more than 200 mg/dL in a nonstressed, ambulatory subject supports the diagnosis of Diabetes Mellitus. Order Comment: PT FA STED 12 HOURS Result Comment: [place] Glucose Reference Range is dependent on time and content of last meal. Glucose of more than 200 mg/dL in a nonstressed, ambulatory subject supports the diagnosis of Diabetes Mellitus. ADA recommended reference range Performed By: #### C AMAIRANI, BMP #### [facility] [address] [place] [id number] [place] Glucose mean value [Mass/vol ume] in Blood Estimated from glycated hemoglobinOrdered By: Josh Melvin on 04-21-2023 Average glucose Estimated from glycated hemoglobin (Bld) [Mass/Vol] 197 mg/dL [facility] Hematocrit [Volume Fraction] of Blood by Automated countOrdered By: Josh Melvin on 04-21-2023 Hematocrit (Bld) [Volume fraction] 48.8 % Normal 38.8-50.0 [facility] Comment on above: Performed By: #### C AMAIRANI, BMP #### [facility] [address] [place] [phone] [place] Hemoglobin A1c percentageOrd ered By: Josh Melvin on 04-21-2023 HbA1c (Bld) [Mass fraction] 8.5 % High 4.3-5.6 [facility] Comment on above: Increased risk for d iabetes: 5.7 - 6.4diabetes: >6.4glycemic control for adults with diabetes: <7.0 Result Comment: Incr eased risk for diabetes: 5.7 - 6.4 diabetes: >6.4 glycemic control for adults with diabetes: <7.0 Performed By: #### C AMAIRANI, BMP #### [address] Hemoglobin [Mass/volume] in BloodOrdered By: Josh Melvin on 04-21-2023 Hemoglobin (Bld) [Mass/Vol] 16.7 g/dL Normal 13.0-17.0 [facility] Comment on above: Performed By: #### C AMAIRANI, BMP #### [address] Leukocytes [#/volume] correc charanjit for nucleated erythrocytes in Blood by Automated counOrdered By: Josh Melvin on 04-21-2023 WBC corrected for nucl RBC Auto (Bld) [#/Vol] 7.1 10*3/uL 4.1-10.5 [facility] Leukocytes [#/volume] in Blo od by Automated countOrdered By: Josh Melvin on 04-21-2023 WBC (Bld) [#/Vol] 7.1 10*3/uL Normal 4.1-10.5 [facility] Comment on above: Performed By: #### C AMAIRANI, BMP #### [address] Lipid Panelon 04-21-2023 LDL Cholesterol,Calculate d 207 mg/dL High 0-100 [facility] Comment on above: Order Comment: PT FA STED 12 HOURS Result Comment: LDL ATP III CLASSIFICATION LDL less than 100 mg/dL Optimal LDL 100-129 mg/dL Near or above optimal LDL 130-159 mg/dL Borderline high LDL 160-189 mg/dL High LDL greater than 189 mg/dL Very high Performed By: #### C AMAIRANI, BMP #### [address] Triglyceride w/Reflex 162 mg/dL High 0-149 [facility] Comment on above: Order Comment: PT FA STED 12 HOURS Result Comment: TRIG ATP III CLASSIFICATION TRIG less than 150 mg/dL Normal TRIG 150-199 mg/dL Borderline high TRIG 200-500 mg/dL High TRIG greater than 500 mg/dL Very high Standard traceable to the Center for Disease Conrtrol and Prevention (CDC) test method. Performed By: #### C BC, BMP #### [address] VLDL CHOLESTEROL 32 mg/dL Normal [facility] Comment on above: Order Comment: PT FA STED 12 HOURS Performed By: #### C BC, BMP #### [address] Lymphocytes [#/volume] in Bl ood by Automated countOrdered By: Josh Bunting on 04-21-2023 Lymphocytes (Bld) [#/Vol] 1.9 10*3/uL Normal 1.00-4.8 [facility] Comment on above: Performed By: #### C BC, BMP #### [address] Lymphocytes/100 leukocytes i n Blood by Automated countOrdered By: Josh Bunting on 04-21-2023 Lymphocytes/100 WBC (Bld) 26.3 % Normal . [facility] Comment on above: Performed By: #### C BC, BMP #### [address] MCH [Entitic mass] by Automa charanjit countOrdered By: Josh Bunting on 04-21-2023 MCH (RBC) [Entitic mass] 32.5 pg Normal 27.5-35.2 [facility] Comment on above: Performed By: #### C BC, BMP #### [address] MCHC Auto (RBC) [Mass/Vol]Or dered By: Josh Bunting on 04-21-2023 MCHC (RBC) [Mass/Vol] 34.2 g/dL 32.5-35.6 [facility] MCV [Entitic volume] by Auto mated countOrdered By: Josh Bunting on 04-21-2023 MCV (RBC) [Entitic vol] 95.2 fL Normal 83.5-101 [facility] Comment on above: Performed By: #### C BC, BMP #### [place] [address] [place] [address] [place] Neutrophils [#/volume] in Bl ood by Automated countOrdered By: Josh Bunting on 04-21-2023 Neutrophils (Bld) [#/Vol] 4.6 10*3/uL Normal 1.8-7.7 [facility] Comment on above: Performed By: #### C BC, BMP #### [address] No Panel InformationOrdered By: Josh Bunting on 04-21-2023 Estimated GFR (CKD-EPI) > 60.0 mL/Min [facility] Creatinine Clearance (Chem N/A [facility] Nucleated erythrocytes [Pres ence] in Blood by Automated countOrdered By: Josh Bunting on 04-21-2023 Nucleated RBC Auto Ql (Bld) 0.0 /100{WBC} 0-0.5 [facility] Platelet mean volume [Entiti c volume] in Blood by Automated countOrdered By: Josh Bunting on 04-21-2023 Platelet mean volume (Bld) [Entitic vol] 8.6 fL Normal 6.6-10.1 [facility] Comment on above: Performed By: #### C BC, BMP #### [place] [address] [place] Platelets [#/volume] in Bloo d by Automated countOrdered By: Josh Bunting on 04-21-2023 Platelets (Bld) [#/Vol] 200 10*3/uL Normal 150-450 [facility] Comment on above: Performed By: #### C BC, BMP #### [place] [address] [place] Potassium [Moles/volume] in Serum or PlasmaOrdered By: Josh Bunting on 04-21-2023 Potassium [Moles/Vol] 4.6 mmol/L Normal 3.5-5.1 [facility] Comment on above: Order Comment: PT FA STED 12 HOURS Performed By: #### C BC, BMP #### [place] [address] [place] Protein [Mass/volume] in Ser um or PlasmaOrdered By: Josh Bunting on 04-21-2023 Protein [Mass/Vol] 6.4 g/dL Normal 6.4-8.9 [facility] Comment on above: Order Comment: PT FA STED 12 HOURS Performed By: #### C BC, BMP #### [facility] [address] Serum globulin measurement b y calculation (mass/volume)Ordered By: Josh Bunting on 04-21-2023 Globulin (S) [Mass/Vol] 2.2 g/dL Normal [facility] Comment on above: Order Comment: PT FA STED 12 HOURS Performed By: #### C BC, BMP #### [facility] [address] [place] [address] Serum or plasma albumin/glob ulin mass ratioOrdered By: Josh Bunting on 04-21-2023 Albumin/Globulin [Mass ratio] 1.9 {ratio} [facility] Comment on above: Order Comment: PT FA STED 12 HOURS Performed By: #### C BC, BMP #### [facility] [address] [place] [address] Serum or plasma anion gap de terminationOrdered By: Josh Bunting on 04-21-2023 Anion gap [Moles/Vol] 11.3 mmol/L Normal 6.0-15.0 [facility] Comment on above: Order Comment: PT FA STED 12 HOURS Performed By: #### C BC, BMP #### [facility] [address] [place] [address] Serum or plasma high density lipoprotein (HDL) cholesterol measurementOrdered By: Josh Bunting on 04-21-2023 Cholesterol in HDL [Mass/Vol] 61 mg/dL Normal 23-92 [facility] Comment on above: HDL CHOL ATP-III CLA SSIFICATION Cardiovascular RiskHDL > or equal to 60 mg/dL LOWHDL < 40 mg/dL HIGH Order Comment: PT FA STED 12 HOURS Result Comment: HDL CHOL ATP-III CLASSIFICATION Cardiovascular Risk HDL > or equal to 60 mg/dL LOW HDL < 40 mg/dL HIGH Performed By: #### C BC, BMP #### [facility] [address] Serum or plasma total choles terol/high density lipoprotein (HDL) cholesterol mass ratOrdered By: Josh Bunting on 04-21-2023 Cholesterol.total/Cho lesterol in HDL [Mass ratio] 4.9 {ratio} Normal <5.0 [facility] Comment on above: Order Comment: PT FA STED 12 HOURS Result Comment: PERF ORMED BY: [place] [address] PATHOLOGIST EVAPORATOR OPERATOR MOLASSES CLEVE CANDELARIA M.D. Performed By: #### C AMAIRANI, BMP #### [address] Sodium [Moles/volume] in Ser um or PlasmaOrdered By: Josh Bunting on 04-21-2023 Sodium [Moles/Vol] 136 mmol/L Normal 136-145 [facility] Comment on above: Order Comment: PT FA STED 12 HOURS Performed By: #### C AMAIRANI, BMP #### [address] Triglyceride [Mass/volume] i n Serum or PlasmaOrdered By: Josh Bunting on 04-21-2023 Triglyceride [Mass/Vol] 162 mg/dL 0-149 [facility] Comment on above: TRIG ATP III CLASSIF ICATIONTRIG less than 150 mg/dL NormalTRIG 150-199 mg/dL Borderline highTRIG 200-500 mg/dL High TRIG greater than 500 mg/dL Very highStandard traceable to the Center for Disease Conrtrol and Prevention (CDC) test method. Urea nitrogen [Mass/volume] in Serum or PlasmaOrdered By: Josh Bunting on 04-21-2023 Urea nitrogen [Mass/Vol] 25 mg/dL Normal 7-25 [facility] Comment on above: Order Comment: PT FA STED 12 HOURS Performed By: #### C AMAIRANI, BMP #### [address] CNPNon 04-10-2023 CNPN Telephone (OTOL) -- NIYAH MEIER ([id number]) 1960 M Date Time Provider Department 04/10/23 [...] Encounter Status:Closed by KIMBERLI COUCH on 04/15/23 [facility] CNOVon 03-26-2023 CNOV Office Visit (OTOLCC ) -- NIYAH MEIER ([id number]) 1960 Date Time Provider Department 03/26/23 11:20 AM DONNY PERALTA [facility] During your visit today, we recorded the following information about you: Pulse Respiration 88/minute 17/minute Donny Peralta APRN.CULINARY DIRECTOR 03/26/2023 4:15 PM Signed Mr. Meier is [...] 2 to 3 weeks time. Donny Peralta APRN.CULINARY DIRECTOR CC: Josh Melvin DO Referring Provider: JOSH MELVIN [[id number]] Allergies As of Date: 03/26/2023 (No Known Allergies) Date Reviewed: 03/26/2023 Reviewed by: Olive Hui LPN - Fully Assessed Reason for Visit: Mouth lesion on left side [Other] Primary Visit Diagnosis:Laryngeal candidiasis [B37.89] Other Visit Diagnoses:Glossitis [K14.0] Oral candidiasis [B37.0] Hoarseness of voice [R49.0] History of alcohol abuse [F10.11] Order(s):COMP METABOLIC PANEL [SQCMP] Order #: [id number] FUTURE clotrimazole (MYCELEX) 10 mg trocheUse 1 Bud as instructed four times daily for 14 days.Disp: 56 tabletRfl: 0 Prescriptions as of 03/26/2023 - busPIRone HCl 30 mg tablet TAKE 1 TABLET BY MOUTH THREE TIMES DAILY FOR ANXIETY - celec (more content not included)... Normal [facility] Comprehensive metabolic 2000 panelon 03-26-2023 Albumin [Mass/Vol] 4.4 g/dL Normal 3.9-4.9 [facility] Comment on above: Order Comment: Ilana guillen Type: BLOOD SPECIMEN Ordering Facility: [facility] Address: [address] [place] [address] Performed By: #### 2 4323-8 #### [facility] CLIA [id number] [address] [facility] [place] [address] [place] ALP [Catalytic activity/Vol] 90 U/L Normal 38-113 [facility] Comment on above: Order Comment: Ilana guillen Type: BLOOD SPECIMEN Ordering Facility: [facility] Address: [address] [place] [address] Performed By: #### 2 4323-8 #### [facility] CLIA [id number] [address] [place] [id number] [place] ALT [Catalytic activity/Vol] 22 U/L Normal 10-54 [facility] Comment on above: Order Comment: Speci men Type: BLOOD SPECIMEN Ordering Facility: [facility] Address: [address] [place] [address] Performed By: #### 2 4323-8 #### [facility] CLIA [id number] [address] [place] [address] [place] Anion gap [Moles/Vol] 11 mmol/L Normal 9-18 [facility] Comment on above: Order Comment: Speci men Type: BLOOD SPECIMEN Ordering Facility: [facility] Address: [address] [place] [address] Performed By: #### 2 4323-8 #### [facility] CLIA [id number] [address] [place] [address] [place] AST [Catalytic activity/Vol] 23 U/L Normal 14-40 [facility] Comment on above: Order Comment: Speci men Type: BLOOD SPECIMEN Ordering Facility: [facility] Address: [address] [place], [place] [address] Performed By: #### 2 4323-8 #### [facility] CLIA [id number] [address] [place] [address] [place] Bilirubin [Mass/Vol] 0.4 mg/dL Normal 0.2-1.3 [facility] Comment on above: Order Comment: Speci men Type: BLOOD SPECIMEN Ordering Facility: [facility] Address: [address] [place], [place] [address] Performed By: #### 2 4323-8 #### [facility] CLIA [id number] [address] [place] [address] [place] Calcium [Mass/Vol] 9.6 mg/dL Normal 8.5-10.2 [facility] Comment on above: Order Comment: Speci men Type: BLOOD SPECIMEN Ordering Facility: [facility] Address: [address] Performed By: #### 2 4323-8 #### [facility] CLIA [id number] [address] [place] [address] [place] Chloride [Moles/Vol] 97 mmol/L Normal 97-105 [facility] Comment on above: Order Comment: Speci men Type: BLOOD SPECIMEN Ordering Facility: [facility] Address: [address] Performed By: #### 2 4323-8 #### [facility] CLIA [id number] [address] [place] [address] [place] CO2 [Moles/Vol] 27 mmol/L Normal 22-30 [facility] Comment on above: Order Comment: Speci men Type: BLOOD SPECIMEN Ordering Facility: [facility] Address: [address] Performed By: #### 2 4323-8 #### [facility] CLIA [id number] [address] [place] [address] [place] Creatinine [Mass/Vol] 0.99 mg/dL Normal 0.73-1.22 [facility] Comment on above: Order Comment: Speci men Type: BLOOD SPECIMEN Ordering Facility: [facility] Address: [address] Performed By: #### 2 4323-8 #### [facility] CLIA [id number] [address] [place] [address] [place] ESTIMATED GLOMERULAR FILTRATION RATE 85 mL/min/1.73m??? Normal >=60 [facility] Comment on above: Order Comment: Speci men Type: BLOOD SPECIMEN Ordering Facility: [facility] Address: [address] [place] [address] Result Comment: Neha mated Glomerular Filtration Rate [...] GFR. Performed By: #### 2 4323-8 #### [facility] CLIA [id number] [address] [place] [address] [place] Glucose [Mass/Vol] 85 mg/dL Normal 74-99 [facility] Comment on above: Order Comment: Ilana guillen Type: BLOOD SPECIMEN Ordering Facility: [facility] Address: [address] [place] [address] Result Comment: The [place] Diabetes Association (ADA) provides guidance for cutoff [...] Standards of Medical Care in Diabetes 2016, [place] Diabetes Association. Diabetes Care. 2016.39(Suppl 1). Performed By: #### 2 4323-8 #### [facility] CLIA [id number] [address] [place] [address] [place] Potassium [Moles/Vol] 4.5 mmol/L Normal 3.7-5.1 [facility] Comment on above: Order Comment: Ilana guillen Type: BLOOD SPECIMEN Ordering Facility: [facility] Address: [address] [id number] Performed By: #### 2 4323-8 #### [facility] CLIA [id number] [address] [place] [id number] [place] Protein [Mass/Vol] 7.0 g/dL Normal 6.3-8.0 [facility] Comment on above: Order Comment: Speci men Type: BLOOD SPECIMEN Ordering Facility: [facility] Address: [address] [place] [address] Performed By: #### 2 4323-8 #### [facility] CLIA [id number] [address] [place] [address] [place] Sodium [Moles/Vol] 135 mmol/L Low 136-144 [facility] Comment on above: Order Comment: Speci men Type: BLOOD SPECIMEN Ordering Facility: [facility] Address: [address] [place] [address] Performed By: #### 2 4323-8 #### [facility] CLIA [id number] [address] [place] [address] [place] Urea nitrogen [Mass/Vol] 25 mg/dL High 9-24 [facility] Comment on above: Order Comment: Speci men Type: BLOOD SPECIMEN Ordering Facility: [facility] Address: [address] [place] [address] Performed By: #### 2 4323-8 #### [facility] CLIA [id number] [address] [place] [address] [place] Body fluid albumin measureme nt (mass/volume)Ordered By: Josh Melvin on 09-30-2022 Albumin (Body fld) [Mass/Vol] 3.6 g/dL 3.2-5.5 [facility] Cholesterol [Mass/volume] in Serum or PlasmaOrdered By: Josh Melvin on 09-30-2022 Cholesterol [Mass/Vol] 154 mg/dL 140-200 [facility] Comment on above: Chol less than 200 m g/dl low riskChol 201-239 mg/dl borderline riskChol 240 mg/dl and greater high risk Cholesterol in LDL Calc [Mas s/Vol]Ordered By: Josh Melvin on 09-30-2022 Cholesterol in LDL [Mass/Vol] 93 mg/dL 0-100 [facility] Comment on above: LDL ATP III CLASSIFI CATIONLDL less than 100 mg/dL OptimalLDL 100-129 mg/dL Near or above optimalLDL 130-159 mg/dL Borderline highLDL 160-189 mg/dL HighLDL greater than 189 mg/dL Very high Cholesterol in VLDL Calc [Ma ss/Vol]Ordered By: Josh Melvin on 09-30-2022 Cholesterol in VLDL [Mass/Vol] 17 mg/dL [facility] Creatinine and Glomerular fi ltration rate.predicted panel (S/P/Bld)Ordered By: Josh Melvin on 09-30-2022 Creatinine [Mass/Vol] 0.89 mg/dL 0.64-1.27 [facility] Estimated glomerular filtrat ion rate (GFR) non- AmericanOrdered By: Josh Melvin on 09-30-2022 GFR/1.73 sq M.predicted among non-blacks MDRD (S/P/Bld) [Vol rate/Area] > 60 mL/Min [facility] Globulin Calc (S) [Mass/Vol] Ordered By: Josh Melvin on 09-30-2022 Globulin (S) [Mass/Vol] 3.1 g/dL [facility] Glucose mean value [Mass/vol ume] in Blood Estimated from glycated hemoglobinOrdered By: Josh Melvin on 09-30-2022 Average glucose Estimated from glycated hemoglobin (Bld) [Mass/Vol] 180 mg/dL [facility] Hemoglobin A1c percentageOrd ered By: Josh Melvin on 09-30-2022 HbA1c (Bld) [Mass fraction] 7.9 % 4.3-5.6 [facility] Comment on above: Increased risk for d iabetes: 5.7 - 6.4diabetes: >6.4glycemic control for adults with diabetes: <7.0 No Panel InformationOrdered By: Josh Melvin on 09-30-2022 Estimated GFR () > 60 mL/Min [facility] Comment on above: GFR estimated refere nce range: According to KDOQI guidelines, <60 ml/min/1.73m2 is sufficient to diagnose a patient with chronic kidney disease. Pharmacy Creatinine Clearance (Chem N/A [facility] Protein [Mass/volume] in Ser um or PlasmaOrdered By: Josh Melvin on 09-30-2022 Protein [Mass/Vol] 6.7 g/dL 6.1-7.9 [facility] Serum or plasma alanine cullen otransferase measurement without P-5'-P (enzymatic activiOrdered By: Josh Melvin on 09-30-2022 ALT No additional P-5'-P [Catalytic activity/Vol] 19 U/L 10-60 [facility] Serum or plasma albumin/glob ulin mass ratioOrdered By: Josh Melvin on 09-30-2022 Albumin/Globulin [Mass ratio] 1.2 {ratio} [facility] Serum or plasma alkaline juliette sphatase measurement (enzymatic activity/volume)Ordered By: Josh Melvin on 09-30-2022 ALP [Catalytic activity/Vol] 78 U/L 32-92 [facility] Serum or plasma anion gap de terminationOrdered By: Josh Melvin on 09-30-2022 Anion gap [Moles/Vol] 19.0 mmol/L 6.0-15.0 [facility] Serum or plasma aspartate am inotransferase measurement (enzymatic activity/volume)Ordered By: Josh Melvin on 09-30-2022 AST [Catalytic activity/Vol] 17 U/L 10-42 [facility] Serum or plasma calcium ezra urement (mass/volume)Ordered By: Josh Melvin on 09-30-2022 Calcium [Mass/Vol] 9.6 mg/dL 8.2-10.2 [facility] Serum or plasma chloride brenda surement (moles/volume)Ordered By: Josh Melvin on 09-30-2022 Chloride [Moles/Vol] 94 mmol/L 95-114 [facility] Serum or plasma glucose ezra urement (mass/volume)Ordered By: Josh Melvin on 09-30-2022 Glucose [Mass/Vol] 149 mg/dL 70-100 [facility] Comment on above: ADA recommended refe rence rangeRandom Glucose Reference Range is dependent on time and content of last meal. Glucose of more than 200 mg/dL in a nonstressed, ambulatory subject supports the diagnosis of Diabetes Mellitus. Serum or plasma high density lipoprotein (HDL) cholesterol measurementOrdered By: Josh Melvin on 09-30-2022 Cholesterol in HDL [Mass/Vol] 44 mg/dL 29-71 [facility] Comment on above: HDL CHOL ATP-III CLA SSIFICATION Cardiovascular RiskHDL > or equal to 60 mg/dL LOWHDL < 40 mg/dL HIGH Serum or plasma potassium me asurement (moles/volume)Ordered By: Josh Melvin on 09-30-2022 Potassium [Moles/Vol] 4.9 mmol/L 3.5-5.1 [facility] Serum or plasma sodium measu rement (moles/volume)Ordered By: Josh Melvin on 09-30-2022 Sodium [Moles/Vol] 137 mmol/L 136-146 [facility] Serum or plasma total biliru bin measurement (mass/volume)Ordered By: Josh Melvin on 09-30-2022 Bilirubin [Mass/Vol] 0.7 mg/dL 0.3-1.2 [facility] Serum or plasma total carbon dioxide measurement (moles/volume)Ordered By: Josh Melvin on 09-30-2022 CO2 [Moles/Vol] 28.9 mmol/L 22.0-30.0 [facility] Serum or plasma total choles terol/high density lipoprotein (HDL) cholesterol mass ratOrdered By: Josh Melvin on 09-30-2022 Cholesterol.total/Cho lesterol in HDL [Mass ratio] 3.5 {ratio} <5.0 [facility] Serum or plasma urea nitroge n measurement (mass/volume)Ordered By: Josh Mevlin on 09-30-2022 Urea nitrogen [Mass/Vol] 19 mg/dL 9-23 [facility] Triglyceride [Mass/volume] i n Serum or PlasmaOrdered By: Josh Melvin on 09-30-2022 Triglyceride [Mass/Vol] 86 mg/dL 35-149 [facility] Comment on above: TRIG ATP III CLASSIF ICATIONTRIG less than 150 mg/dL NormalTRIG 150-199 mg/dL Borderline highTRIG 200-500 mg/dL High TRIG greater than 500 mg/dL Very highStandard traceable to the Center for Disease Conrtrol and Prevention (CDC) test method. IntraOperative Documentson 0 04-25-2021 IntraOperative Documents [id number]:127 [facility] Main OR Intraoperative Recor don 04-25-2021 Main OR Intraoperative Record IntraOp Document Type FT Summary Primary Physician: Kwame Yang DO Finalized Date/Time: 04/25/21 16:46:35 Pt. Name: KOKO MEIER /Sex: 1960 Male Med Rec #: [id number] Physician: Kwame Yang DO Financial #: [id number] Pt. Type: I Room/Bed: [place] [address] Admit/Disch: 04/18/21 08:03:48 - 04/19/21 13:50:00 Institution: [...] E Role Performed Anesthesiologist Surgeon - Primary TELECOMMUNICATIONS LINESWORKER/SA Electric Transfer Operator Time In 04/18/21 10:01:00 04/18/21 10:01:00 04/18/21 10:01:00 Time Out 04/18/21 12:40:00 04/18/21 12:40:00 04/18/21 12:40:00 Procedure SHOULDER TOTAL SHOULDER TOTAL SHOULDER TOTAL ARTHROPLASTY(Right) ARTHROPLASTY(Right) ARTHROPLASTY(Right) Comments supervised by Dr. Linton Last Modified By: Kasi KOO, Nandini Villaseñor RN, Nandini Desouza RN 04/18/21 12:41:34 04/18/21 12:41:34 04/18/21 12:41:34 Entry 4 Entry 5 Entry 6 Case Attendee Kasi KOO, Nandini Goldberg TELECOMMUNICATIONS LINESWORKER, Christiano Ballard TELECOMMUNICATIONS LINESWORKER, FA, Windy K Role Performed Business Management Specialist - Primary Scrub - Primary Staff - [...] Kwame Yang DO, Given Jimmy Head CRNA, Roth TELECOMMUNICATIONS LINESWORKER, Kasi Maciel RN, Yusuf Garner CST, Elio Burnham TELECOMMUNICATIONS LINESWORKER, FA, Mensa K Time Out Complete 04/18/21 [...] and tissue Entry 1 Skin Integrity Intact, Fielding, Warm, and Skin Abnormality No Dry (more content not included)... Normal [facility] Main OR Preoperative Recordo n 04-25-2021 Main OR Preoperative Record PreOp Document Type FT Summary Primary Physician: Kwame Yang DO Finalized Date/Time: 04/25/21 16:43:54 Pt. Name: KOKO MEIER./Sex: 1960 Male Med Rec #: [id number] Physician: Kwame Yang DO Financial #: [id number] Pt. Type: I Room/Bed: [id number] Admit/Disch: 04/18/21 08:03:48 - 04/19/21 13:50:00 Institution: [...] By: Nandini Villaseñor RN 04/25/21 16:43 [facility] Coding Summary.on 04-24-2021 Coding Summary. CD:[id number] Gh0bWw +PGhlYWQ+HG4VYEJhQ74wcJIpg A2RI8kGTF2KBGKYNSYNOR5XZJ3 xkEV1YMkjD5OgkjFt XjezxYQiZI57USq1EMX1wIqoME ekwX7nzRUpO8l8KtGaPM83iE79 EVpyXWDnDbV0UcAjhyejwOAy O2fiHoAsgGZyQax+PHRhYmxlIH uwYTUcIOehBNJdFzAxvPufND7d Si9kCSDsOHJdrCmzqQTsEvJs q0hxCPSiXPnwIE7xdZfqQ6PkfP H1ZGMdb3u8Fw74qRT+PHRkIHN0 bGgzZJclt261KuWju5gcASH7 hLZqGNoiSNM2T81vz0A5XEGxAZ GnMUH7lKG1xB6fiJnxlyvrQ3Yc hJRiSjU3OKG9zQVtvL0npWyu baeexP5jFhg+X17XQS1PGVCRGH 9TFcz3F2ScZgxhgCP+PW97IHRw CR82kDBuaBEem4conGs4VqHy LHHnNDB8gRlsWVjfd4SdGUShF9 9vwJPbg1M2IYQqiRjobVZkDdRo jAO7uM7uULowteaoe4sopiso Dnfin9rybq52rX28W79xMKwdEQ EuXVN0HSSaLPTqbXievo5xqL9n Ii8+LGmda0bwj2kxxUt6RmSn WYCstfWofDatCEP3k9YfVm97H0 BkbHmst7WlSul3cr24pJMpw5L2 yNY5NZrcFDUtcU1fPMlbVbB0 MVKuFgXrzD71xUPiKWlkNt3xeD kcwPppJF5oJBSujtidUPOvbB9w VZQlcEXgoHzyYX3fEPLyxcns m688TxXxVGM7NZVrtGSoJ0KrmV 6bEcFgKBQhVKLrM7QtxPUmGThf R544ILqdYnJ6ZDUqunJrO1Ev QGFfcIpoQzR6i9X0Zk9Wc9Cwcu gjCIA3CWdaAGW8DsP9JpHjQsM2 R8GkFge8GGCisTtjRI4bK5Tt CNApbtudkwfmcQR3TDGpQRIjzW 53mYVgZCusKn8lk4F0y225BEHh IDZhsM83Kb5ujVqeHZCcmRCP kD2ieyvzl5hsfpduZkAlEZJvQA k8PWa9IUAxvSwdKjBrHFD6QkB0 XIT2hMKhbH2iePduozibgX6s Oyc+B02rcB4bYNC5UOI8jprjVG OdrxGuND55ZO16C5YnQogifKWq bGU+XZNknpXxuHnfAC8yVtYe g4xkn6TnYTnqD3AnKKTsTUftJy j6JVGaNVD3oBZ8nZ0vJKNyYDnd c1A6zVO0H2CdfyOmdf1ni6va UBVuUAlnX32ltNSaq2K0XZOwkT S4ZWTekTzeRwFfvE95Kho+PGNv bFnwe7GmArdxq0wrn3luwAk3 KqFhHCQwhmJqkDmbDDP7z9IaLc 05T66qXSctYLLdZVAgGYRqQBGr kZoedf7lqZ0kMi3+PGNvbCB3 iVD1hJ6vCGJbBqA2BQmdH411Xs CwpGAkGnoel4qua3btaEn8JwWp IVEiphCtiNdlWTE1n8HoCk72 R16tQNmdNVIaBOPdNEFkMDMduC disq3ugE8qZx5+RO3xf4dvxp55 wD03yWW+NSHkBDO9kTjtQVeq XYFarZ0cXFiuXpW8UVOjTtLicZ 39dMAlIOtrRr8vnWmjtLspKY0o ZYOjpifjz613RcSix4amAWVs rSCiFYhzVSK2X68uy4C6AGPyAQ ZvBMV4wSG5bV1jeTsoofxuoMHr mJqmuyXwlGfgGFnuORtqF668 IHRvcDsnPlBhdGllbnQgTmFtZT i0M4KoQos1PQFdySvwEP9ezDKk OEkuNq4lsPjfyPylDI8fWFDn zgxku632MhKvg9muUKFfcJGkLN wdQYF4Y67ft7Z7LLToNLWxFYN1 xFL0oY7fyTkwzddvxPUeiQlr hvPonJkrSSdaEVtqO748FRCdpU pyHjUdadUjIUAysQN3DS00YC36 qLNdw4N2sLL0J1DkWWEufvzn czvpmZR8XXRrYADyxR09Qn1ehK drSh7mIECnCSS1QHCkaJOmJ0Wn tH5rCpUlQVYiINJhQ6BkpHKd FMexR296QJmdUvT1BCDlnkNjQ5 VmVXUlnHquAkT6g4I4Ox2HN1T6 ZX68IF26pHEwv1R8uYD8S1Fi KVSzvyysrdpcdKU3XMQpPTVyjI 58Uz7gyAnsLg0eZTUgEVU3HHCx qGSoJ9CrvH5dJxOxWFUwOQGl S5GqqCBjGWpnF735BZsyEhJ0QB VxqsOqD8DqGIDxxPwyWgZ7t1A8 Qq9IIWz1HL98KI24yPCzn6F7 tLX2L0TvBBXhlrrfylyhbBL1JH NaXJYgsV58Aw7lqTlaQp0yJMXg NIU8OVBebVUlX1TiwR2pGcUe KQFrZDYqA3XlpTQeVVujJ377JL qnXwH7GNCfjhNlJ9DmQCAsvXlx UwD7n2O8Yc4ZACQeRX87PHI7 tTZ0XZ23WL19D2AaKykfoHNcrN U+PHRhYmxlIHdpZHRoPScxMDAl AdAjfWrbPR4nAf0yMIBqCSRb tWjdxFCiWuIrp1wdHHRvUGwaCK 0mgRtmT1PpkXU1AMPph8p2On03 B03hY8YkgJB+KBHflKU4qJP2 cJ1yJnZwWzK9AWhiH350KiYwkL VlKgyan6xcu3oveAv5PfQ4IUIe pmXgdCjnDJK7i5YzGn48O59j IHdpZHRoPSIxNSUiIHZhbGlnbj 3itM8xPg6+FIOxnZK2dPI3gX7z HuUrDqZ1UUuxG361JuVcsUIh Xeipu6hhz3itpGz8QcEhEEHcmw JlpSyhDMY8m8YiRp95B7NjgPcn n9OdZem2rv28fQRbi4Z3tYG0 P9WuYDXevrlqtUTtpKbpHW4sCZ VxvczbPJNqeH6xNAZaF3l5IsCc EpS6XLkhJ8YntqC7GYIuzTMv QTkhTHX3F49eo8P0XQRsZCKpCP Z4wPT4tF7fnHbjlshbfDIekWxn wyRkxQpuZSecCIreP344LJSg gXuxBUZfoM2wNZMejBFacJipZS 5yUYXgdqrxBsYKIT9EIBLsHDdB RkZSRVkgUzwvdGQ+PHRkIHN0 uCeqBEuaJUYsjU5mAQVgP7j2Kq VyXiV9UKdkA7KnHWPihtuhCe14 cU6dPtKdDkE8NZiuJ0KhvfR6 KXTsiHBcOJmfGMC8B07pj1X9MV ZlBWWyEOL7xKV4iU3ayPekgspj bGVmdDsgdmVydGljYWwtYWxp F809RTXtrBqtFuHfHqSzBqL3WI k9W3GuNti8NEAfhPjeVP3kzGDd EKkuAp0thGbcoXfyJY4xCYWs mferUOWkvM6fFKMpuAFqmAewQN 5wDMGtkwoij905GnPdRKG2RMIb oYOoC7FevS1wFsKfTINsRUYo L6XjvVKdOSewQ226PQffMeM3CX PpvpScJ1McOXZmvVtlIdD7c3X7 Fr62KvTKDWIxqsfdfXT+PHRk DEB3aRtyLNjpJVJvsJ8mWGBhI5 x2MyWeBbF5VByqS2PmOENmrmjw Uv05nA2cLsEyJyM3BNdiB9La voO4EXTmvDCfFDciGWH8P23tw5 D3MYNhYWXmAWV8rHO7dR0vvLjk bjogbGVmdDsgdmVydGljYWwt LUohB983XTImiYqjFp6zhCS2E0 LcFji0OGWsyUkjQE7gbQTyDAfq Of0jhDfklPhuOB1jPYHtksgt OSVsnA5kKRBwiNYxzHjlAC9sPD Favapia162ZoZtYHA2LEMhpJBl G7KxvM6cOoXdEXOwVDDyJ1Re lICdOCdqL669TWqnZwH9SMPyqj BqI5IuRMYirDpoZjL1q4D1Aa9Y elNxxOcvwbI8S0FnXsjkhOS+ VF66QUDaBD41dOQynNZby6ihfW a0DxTiAZXuGYX8yGgjUAyio2Lo IWAxQ89zzRYku5S0IZAcuZsz jZAxYuLypPC5wA8kRDfpzkffz0 asehfuQxwnw9ijoi42fX79K95h IHdpZHRoPSIzMCUiIHZhbGln gt4xhW9uSj6+TOXleXD1jST3eS 3rTaTlOhC3EGawC537ZxBifHEa Qkvyl3wwf6gbnZi9HcYfSGYe wxPbuCpyNEN7c2ClQk08Z35zXW wzAXYfVNDbLPMwHHRwhLejzg4u cF0nAs6+WI6kd6bntc66rI53 dHI+LFYjZWA7zJmvUOcqKEXkaF 7zEYwaNuY3XNNoPwRneN84jATa VJfsRh1usEigrVqrAL4hRKNp ponxm080MuCxg8gnGQQedXUeJG xkYBL3K82oo8E1YULkPWJkGCF6 cGV3aR6teXfilvmkhNVmsMxj fgVexVvnJTadJAlsB332JCWacU uoFeHnhKVqI4ojsoBONG3mHqxh dGQ+TXYmFOI3dUkrKJwaMTPo vP6gRMNdG0y7ZzKxFjX9NFyfS6 QkzkD5TDCqlBKtFYYxlHBJxR6m boswm9lteigxGuJrXHGuWFz9 ZFg7PHLrnDkkCgQlNGR5VaK4KK W8mMIdbL4wlPpdgeicdI6xZmo+ RklOOjwvdGQ+RIGyRIO3kEaw EHnqQPInpZ4iUNDgS7t8TxLlYj D5MBdfR4ZldkM9SUOhjDPgCDFs jZHQfJ2okvsad5gggakeApQr KXNtHVm1DQg2ZSHfgYulSmVuQK X8PlG9VND6dLIfeY9frIjruuwn nC6nAlt+TVJOOjwvdGQ+PHRk WLY8zBccZVddMZFyiG8lDXZiO2 y3QpKbWoM0DAurD0NxnbX2PYUb iQNsWWNpiMVOcW8cjzato4ta egkfEoKoIUKrOCa1DJo0OBOkeM mzWlYaMSK9WrS1ZCV8aJZfjA3v iTzxcjuixG7kLmp+BGT4DQA1 NZ90JX51A0RjTnsvlKRbqHA+PH RhYmxlIHdpZHRoPScxMDAlJyBz qTrkSS8pGn4fOIOmGSAumRhg cHNl (more content not included)... Normal [facility] Operative Reporton Operative Report Patient: SANTIAGO [...] preparations for the proposed operation continued.. Normal [facility] Comment on above: Result Comment: Elec [...] list: All Problems Arthritis / SNOMED CT 9419211 / Confirmed Diabetes mellitus / SNOMED CT 482286240 / Confirmed High cholesterol / SNOMED CT 51537698 / Confirmed High blood pressure / SNOMED CT 9634955898 / Confirmed Physical Examination Vital Signs 04/18/2021 [...] br/min br/min (more content not included)... Normal [facility] Comment on above: Result Comment: Elec [...] list: All Problems Arthritis / SNOMED CT 4999366 / Confirmed Diabetes mellitus / SNOMED CT 276955061 / Confirmed High cholesterol / SNOMED CT 91600194 / Confirmed High blood pressure / SNOMED CT 9820913036 / Confirmed Histories Past Medical History: No active or resolved past medical history items have been selected or recorded. Family History: Hypertension Father Diabetes mellitus type 2 Mother Brother Metastatic cancer Father Procedure history: Spine orthopedic surgery, lumbar (8335425109). Spine orthopedic surgery, cervical (4679672402). Arthroscopic repair of rotator cuff (5946347780). Carpal tunnel release (650692606). Appendectomy (425209069). Partial resection of colon (17495797). Social History Social & Psychosocial Habits Alcohol [...] results Radiology results ECG interpretation Condition Plan [place] [employer]esthesi[employer] (ASA) physical status classification: Class III. Anesthetic Preoperative Plan Anesthesia: General. , Regional Interscalene Block. Anesthetic plan, risks, benefits, and alternatives discussed with the patient and/or family. Risks discussed: nausea, vomiting, headache, sore throat, dental injury, serious complications. Patient verbalized understanding. Communication: face to face with (patient 5 minutes, Pt educated on the importance of smoking cessation.). [facility] Comment on above: Result Comment: Elec tronically Signed By: Royer Jonas DO, Christiano Pearson\.renard\Date and Time Signed: 04/23/21 08:08 EDT Auto Diffon 04-19-2021 Basophils/100 WBC (Bld) 0.4 % Normal 0.0-2.0 [facility] Comment on above: Order Comment: Order Added by Discern Expert. Performed By: #### 1 [id number] #### [facility] [address] [place] [address] Basophils/Leukocytes Auto (Bld) [Pure # fraction] 0.0 E9/L Normal 0.0-0.2 [facility] Comment on above: Order Comment: Order Added by Discern Expert. Performed By: #### 1 [id number] #### [facility] [address] [place] [address] Eosinophils/100 WBC (Bld) 0.1 % Normal 0.0-8.0 [facility] Comment on above: Order Comment: Order Added by Discern Expert. Performed By: #### 1 [id number] #### [facility] [address] [place] [address] Eosinophils/Leukocyte s Auto (Bld) [Pure # fraction] 0.0 E9/L Normal 0.0-0.5 [facility] Comment on above: Order Comment: Order Added by Discern Expert. Performed By: #### 1 [id number] #### [facility] [address] [place] [address] Lymphocytes/100 WBC (Bld) 14.0 % Normal 14.0-50.0 [facility] Comment on above: Order Comment: Order Added by Discern Expert. Performed By: #### 1 [id number] #### [facility] [address] [place] [address] Lymphocytes/Leukocyte s Auto (Bld) [Pure # fraction] 1.7 E9/L Normal 1.0-4.0 [facility] Comment on above: Order Comment: Order Added by Discern Expert. Performed By: #### 1 [id number] #### [facility] [address] [place] [address] Monocytes/100 WBC (Bld) 5.9 % Normal 4.0-14.0 [facility] Comment on above: Order Comment: Order Added by Discern Expert. Performed By: #### 1 [id number] #### [facility] [address] [place] [address] Monocytes/Leukocytes Auto (Bld) [Pure # fraction] 0.7 E9/L Normal 0.2-1.0 [facility] Comment on above: Order Comment: Order Added by Discern Expert. Performed By: #### 1 [id number] #### [facility] [address] [place] [address] Neutrophils/100 WBC (Bld) 79.6 % High 36.0-75.0 [facility] Comment on above: Order Comment: Order Added by Discern Expert. Performed By: #### 1 [id number] #### [facility] [address] [place] [address] Neutrophils/Leukocyte s Auto (Bld) [Pure # fraction] 9.8 E9/L High 2.0-7.5 [facility] Comment on above: Order Comment: Order Added by Discern Expert. Performed By: #### 1 [id number] #### [facility] [address] [place] [address] BUNon 04-19-2021 Urea nitrogen [Mass/Vol] 19 mg/dL Normal 5-21 [facility] Comment on above: Performed By: #### 1 [id number] #### [facility] [address] [place] [address] CBC w/ Auto Diffon Erythrocyte distribution width (RBC) [Ratio] 13.1 % Normal 10.9-14.2 [facility] Comment on above: Performed By: #### 1 [id number] #### [facility] [address] [place] [address] Hematocrit (Bld) [Volume fraction] 42.1 % Normal 37.7-49.0 [facility] Comment on above: Performed By: #### 1 [id number] #### [facility] [address] [place] [address] Hemoglobin (Bld) [Mass/Vol] 14.0 g/dL Normal 13.5-17.5 [facility] Comment on above: Performed By: #### 1 [id number] #### [facility] [address] [place] [address] MCH (RBC) [Entitic mass] 31.5 pg Normal 27.0-34.0 [facility] Comment on above: Performed By: #### 1 [id number] #### [facility] [address] [place] [address] MCHC (RBC) [Mass/Vol] 33.3 g/dL Normal 31.4-36.0 [facility] Comment on above: Performed By: #### 1 [id number] #### [facility] [address] [place] [address] MCV (RBC) [Entitic vol] 94.4 fL Normal 80.0-100.0 [facility] Comment on above: Performed By: #### 1 [id number] #### [facility] [address] [place] [address] Platelet mean volume (Bld) [Entitic vol] 9.5 fL Normal 6.4-10.8 [facility] Comment on above: Performed By: #### 1 [id number] #### [facility] [address] [place] [address] Platelets (Bld) [#/Vol] 177.0 E9/L Normal 150.0-500.0 [facility] Comment on above: Performed By: #### 1 [id number] #### [facility] [address] [place] [address] RBC (Bld) [#/Vol] 4.5 E12/L Normal 4.3-5.9 [facility] Comment on above: Performed By: #### 1 [id number] #### [facility] [address] [place] [address] WBC corrected for nucl RBC Auto (Bld) [#/Vol] 12.3 E9/L High 4.0-11.0 [facility] Comment on above: Performed By: #### 1 [id number] #### [facility] [address] [place] [address] Capillary Glucose POCon 03-28 Glucose [Mass/Vol] 226 mg/dL High 55-99 [facility] Comment on above: Result Comment: Joanna daly RN/ Performed By: #### 2 [id number] #### [facility] [address] [place] [address] Glucose [Mass/Vol] 271 mg/dL High 55-99 [facility] Comment on above: Result Comment: Joanna daly RN/ Performed By: #### 2 [id number] ####[facility] [address] [place] [address] Consent for Anesthesiaon Consent for Anesthesia [id number]#[id number]:127 Normal [facility] Creatinineon 04-19-2021 Creatinine [Mass/Vol] 0.7 mg/dL Normal 0.5-1.3 [facility] Comment on above: Performed By: #### 1 [id number] #### [facility] [address] [place] [address] Discharge Instructionson Discharge Instructions [id number]:127 Normal [facility] Inpatient Clinical Summaryon 04-19-2021 Inpatient Clinical Summary [address] [address] Clinical Summary Person Information: Name: KOKO MEIER Age: 60 Years : 1960 Sex: Male PCP: JOSH MELVIN DO Marital Status: Phone: [phone] Race: White Ethnicity: Non- or Language: [place] Zealander Visit Id: Visit Reason: OA RIGHT SHOULDER Speciality: Acuity: Enc Type: Inpatient Med Service: Surgery Arrival: 04/18/2021 08:03:48 Discharge: Dispo Type: Address: [address] [place] [id number] Provider Notes: Diagnosis: Arthritis of shoulder region, [...] Kwame Yang DO Consulting Physician: Referring Physician: Kwaem Yang DO Follow up: With: Address: When: Kwame Yang [address] [place], [place] [id number] Business (1) 04/26/2021 2:45 PM Patient Education Information: Danyell Yang - Shoulder Replacement (Custom) Normal [facility] Inpatient Patient Summaryon 04-19-2021 Inpatient Patient Summary [address] [address] Patient Discharge Instructions PERSON INFORMATION [...] Follow up: With: Address: When: Kwame Yang [address] [place] [address] Business (1) 04/26/2021 2:45 PM In the event that this physician does not participate in your insurance network, please consult with your insurance company to find a nearby participating provider. Comment: I KOKO MEIER, have received the attached patient education materials/instructions and have verbalized understanding: Patient Signature __ Date Clinican/Nurse Signature Date HERE ARE THE MEDICATION CHANGES THAT OCCURRED DURING YOUR HOSPITAL STAY New Medications [facility], [address] [place] [id number], [phone] acetaminophen-oxycodone (Percocet 325 mg-5 mg Tab) 1-2 [...] a day. (more content not included)... Normal [facility] Interdisciplinary Note - Mir e Manageron 04-19-2021 Interdisciplinary Note - Tubing Supervisor PT is awake and alert in bed, await rounds with Dr. Yang. . PCP verified and Insurance information reviewed and DME discussed. Contact information provided and white board updated. No family present at this time. Pt lives with and [place] will transport at [place]. Inpatient status reviewed, Medicare rights reviewed and form signed, original provided to pt. Declines any concerns or anticipated DC needs. Plan to DC home today 04/19. MADELINE received a phone call from hospital supervisor grove Viri. States pt Ct called and waiting at pharmacy for meds to be filled and having a issue with filling them as prescribed. MADELINE contacted [facility], spoke with Yifan. States [...] waiting for approval. CRM contacted pt Ct [phone] and updated. Viri, hospital supervisor grove updated. [facility] Comment on above: Result Comment: Elec tronically Signed By: Petty KOO, Afia\.renard\Date and Time Signed: 04/19/21 15:36 EDT [facility] Documentson 0 04-19-2021 [facility] [id number]#1.00CD:127 Normal [facility] Intra[employer] Documents [id number]#1.00CD:127 Normal [facility] Lyteson 04-19-2021 Anion gap [Moles/Vol] 11 mmol/L Normal 6-16 [facility] Comment on above: Performed By: #### 2 [id number] #### [facility] [address] [place] [address] Chloride [Moles/Vol] 103 mmol/L Normal 101-111 [facility] Comment on above: Performed By: #### 2 [id number] #### [facility] [address] [place] [address] CO2 [Moles/Vol] 30 mmol/L Normal 21-31 [facility] Comment on above: Performed By: #### 2 [id number] #### [facility] [address] [place] [address] Potassium [Moles/Vol] 4.0 mmol/L Normal 3.5-5.3 [facility] Comment on above: Performed By: #### 2 [id number] #### [facility] [address] [place] [address] Sodium [Moles/Vol] 140 mmol/L Normal 135-145 [facility] Comment on above: Performed By: #### 2 [id number] #### [facility] [address] [place] [address] Message from Medicareon - Message from Medicare [id number]#1.00CD:127 Normal [facility] Patient Education - Texton 0 04-19-2021 Patient Education - Text [place], [place] [facility] DISCHARGE INSTRUCTIONS: SHOULDER REPLACEMENT [...] vomiting. _ Kwame Yang, DO [facility] [address] [place] [id number] Reviewed: [facility] Physician Orderon 04-19-2021 Physician Order [id number]#1.00CD:127 [facility] Preoperative Documentson Preoperative Documents [id number]#1.00CD:127 Normal [facility] Preoperative Documents [id number]#1.00CD:127 Normal [facility] Progress Note-Physicianon Progress Note-Physician Patient: [place] [...] Pressure 80 mmHg SpO2 92 % Normal [facility] Comment on above: Result Comment: Elec tronically Signed By: Kwame Yang DO\.br\Date and Time Signed: 04/19/21 12:55 EDT eGFRon 04-19-2021 GFR/1.73 sq M.predicted among blacks MDRD (S/P/Bld) [Vol rate/Area] mL/min/{1.73_m2} Normal >=59 [facility] Comment on above: Order Comment: Order added by Discern Expert. Result Comment: eGFR is race adjusted. AA=. Performed By: #### 2 [id number] #### [facility] [address] [place] [address] GFR/1.73 sq M.predicted among non-blacks MDRD (S/P/Bld) [Vol rate/Area] mL/min/{1.73_m2} Normal >=59 [facility] Comment on above: Order Comment: Order added by Discern Expert. Result Comment: Bench Grinder aracely kidney disease could be indicated at eGFR's of less than 60 mL/min/1.73m2. Kidney failure is indicated at less than 15 mL/min/1.73m2. Performed By: #### 2 [id number] #### [facility] [address] [place] [address] ABO/Rhon 04-18-2021 ABO/Rh Positive Invalid Interpretation Code [facility] Comment on above: Performed By: #### 2 [id number], [id number], [id number], [id number] ####[facility] [address] [place] [address] ABO/Rh History Checkon 04-18 ABO/Rh History Check Verified Hx Blood Type Normal [facility] Comment on above: Performed By: #### 2 [id number], [id number], [id number], [id number] ####[facility] [address] [place] [address] ABSC Tubeon 04-18-2021 ABSC Tube Interp Negative Normal [facility] Comment on above: Performed By: #### 2 100386, [id number], [id number], [id number] ####[facility] [address] [place] [address] Blood Bank ID#on 04-18-2021 BBID# [id number] Invalid Interpretation Code [facility] Comment on above: Performed By: #### 2 338535, [id number], [id number], [id number] ####[facility] [address] [place] [address] Blood Bank Slipon 04-18-2021 Blood Bank Slip [id number]#1.00CD:127 Normal [facility] Capillary Glucose POCon 03-28 Glucose [Mass/Vol] 293 mg/dL High 55-99 [facility] Comment on above: Result Comment: Eva dav Meter Performed By: #### 2 [id number] #### [facility] [address] [place] [address] Glucose [Mass/Vol] 312 mg/dL High 55-99 [facility] Comment on above: Result Comment: Joanna daly RN/ Performed By: #### 2 [id number] #### [facility] [address] [place] [address] Glucose [Mass/Vol] 241 mg/dL High 55-99 [facility] Comment on above: Result Comment: Eva dav Meter Performed By: #### 2 [id number] #### [facility] [address] [place] [address] Consent for Procedure/Surger yon 04-18-2021 Consent for Procedure/Surgery [id number]#1.00CD:127 Normal [facility] Consent for Treatmenton 03-28 Consent for Treatment [id number]#1.00CD:127 Normal [facility] H&P Updateon 04-18-2021 H&P Update [id number]#1.00CD:127 Normal [facility] Main OR PACU I Recordon 03-28 Main OR PACU I Record PACU Phase I Docum ent Type FT Summary Primary Physician: Kwame Yang DO Finalized Date/Time: 04/18/21 16:44:21 Pt. Name: KOKO MEIER/Sex: 1960 Male Med Rec #: [id number] Physician: Kwame Yang DO Financial #: [id number] Pt. Type: O Room/Bed: 06/ Admit/Disch: 04/18/21 08:03:48 - Institution: Case Times [...] By: Keira Knox RN 04/18/21 16:44 Normal [facility] Monitor Recordon 04-18-2021 Monitor Record [id number]#1.00CD:127 Normal [facility] Operative Reporton Operative Report Patient: SANTAIGO MEIER Age: 60 years Sex: Male : [...] 3. size 3 humeral insert 4. Revers Carlton size 9 stem with 39 (+2 right) [...] the gregg (more content not included)... Normal [facility] Comment on above: Result Comment: Elec tronically Signed By: Kwame Yang DO\.br\Date and Time Signed: 04/18/21 12:52 EDT Outpatient Surgery Discharge Instructionon 04-18-2021 Outpatient Surgery Discharge Instruction [address] [address] Patient Discharge Instructions PERSON INFORMATION Name: KOKO MEIER Date of : 1960 Current Date: 04/18/2021 09:55:09 PHYSICIANS Admitting Physician: Kwame Yang DO Discharge Diagnosis: Arthritis of shoulder region, right, degenerative NENO MEIERREY Aura has been given the following list [...] Follow up: With: Address: When: Kwame Yang [address] [place] [address] Business (1) 04/26/2021 2:45 PM Pharmacy Information: [...] to serve you. Thank you for choosing [facility] HERE ARE THE MEDICATION CHANGES THAT OCCURRED [...] times a day. PATIENT EDUCATION INFORMATION Instructions: [place], [place] [facility] DISCHARGE INSTRUCTIONS: SHOULDER REPLACEMENT [...] vomiting. _ Kwame Yang, DO [facility] [address] [place], [place] [id number] Reviewed: Normal [facility] UA With Cult Reflexon 2020 Bilirubin Ql (U) Negative Normal Negative [facility] Comment on above: Performed By: #### 1 [id number] #### [facility] [address] [place] [address] Clarity (U) CLEAR Normal Clear [facility] Comment on above: Performed By: #### 1 [id number] #### [facility] [address] [place] [address] Color (U) YELLOW Normal Yellow [facility] Comment on above: Performed By: #### 1 [id number] #### [facility] [address] [place] [address] Epithelial cells.squamous LM.HPF (Urine sed) [#/Area] 0-2 Normal 0-2 [facility] Comment on above: Performed By: #### 1 [id number] #### [facility] [address] [place] [address] Glucose Test strip (U) [Mass/Vol] 2+ Abnormal Negative [facility] Comment on above: Performed By: #### 1 [id number] #### [facility] [address] [place] [address] Hemoglobin Ql (U) Negative Normal Negative [facility] Comment on above: Performed By: #### 1 [id number] #### [facility] [address] [place] [address] Ketones (U) [Mass/Vol] Negative Normal Negative [facility] Comment on above: Performed By: #### 1 [id number] #### [facility] [address] [place] [address] Franquez.plasma/Lithiu m.RBC (Bld) [Mass ratio] 0-3 Normal 0-3 [facility] Comment on above: Performed By: #### 1 [id number] #### [facility] [address] [place] [address] Mucus Ql (Urine sed) TRACE Normal [facility] Comment on above: Performed By: #### 1 [id number] #### [facility] [address] [place] [address] Nitrite Ql (U) Negative Normal Negative [facility] Comment on above: Performed By: #### 1 [id number] #### [facility] [address] [place] [address] pH (U) 6.0 [pH] Invalid Interpretation Code 5.0-9.0 [facility] Comment on above: Performed By: #### 1 [id number] #### [facility] [address] [place] [address] Protein (U) [Mass/Vol] TRACE Abnormal Negative [facility] Comment on above: Performed By: #### 1 [id number] #### [facility] [address] [place] [address] Specific gravity (U) [Rel density] 1.020 Invalid Interpretation Code 1.005-1.030 [facility] Comment on above: Performed By: #### 1 [id number] #### [facility] [address] [place] [address] Type of Urine collection method Cohn Normal [facility] Comment on above: Performed By: #### 1 5344589 #### [facility] [address] [place] [address] Urobilinogen Qn (U) 0.2 {Rolando'U}/dL Normal 0.0-1.0 [facility] Comment on above: Performed By: #### 1 3130182 #### [facility] [address] [place] [address] WBC Auto Ql (U) Negative Normal Negative [facility] Comment on above: Performed By: #### 1 [id number] #### [facility] [address] [place] [address] WBC LM.HPF (Urine sed) [#/Area] 0-5 Normal 0-5 [facility] Comment on above: Performed By: #### 1 6555845 #### [facility] [address] [place] [address] XR Shoulder Complete Righton 04-18-2021 XR Shoulder [...] Jorge Zapien MD Transcribed by: BECKY Technologist: Joe PARKS [facility] Outside Recordson 04-17-2021 Outside Records [id number]#1.00CD:127 Normal [facility] Outside Recordson 04-09-2021 Outside Records [id number]#1.00CD:[address] [facility] [address] Upper Extremity w/o Contr ast [...] Warren MD Transcribed by: BECKY Technologist: CONSUELO [facility] Coding Summary.on 04-04-2021 Coding Summary. CD:[id number] Gh0bWw +PGhlYWQ+DK7OWVAxI28evNEtp S0HY2uSXB2VAJPAWSZCVJ7CST3 zwLL1SRniB3TyndBn BpsnqFKbQW86ABc8CWY5lUzwAR nzbT5brXNdL9x9RnPkZP43fL13 IGggFQSgXhL0MpFqngzfwKSe J9lpHbWrtTHjKnm+PHRhYmxlIH fdZENlJNexTOSyIoMlvAmvXI4a Gz8iMVUgQZAstWtplUFfShZt f6olBXLhCPocPY1grWemK4QmiL H4XSHng8b7Nr52hEG+PHRkIHN0 iJgmRBlfh782QtXjg4beQBO6 nAWvXYehAYJ6X57ss4Y3QIOsWW XkUDK4rOO8xO5yrEualbnuJ2Bc pXKrLmX8VZV5sSAfyP2vyTxq vnsfnY3cKzo+D77TTG6IGGJWSS 5PCit7P8WcAwwxgCO+DJ29XAYg HJ17gRItpRIva2olvTf7YuPd YAAuCRB8eUtmCPaqg3EbRPJcG6 8cyNHcy7S2YJRcfRjdaCQtYtHe rYZ6hD3mWKcfsldya1ztlrxg Kimxi9khqr29mF32Q89pWCxjQC MxEVV2UPDgVNNyfYnouk1syK3r Ii8+FQlsq7eau5vceHq5NmDs WPZyunHkfQotHPB3m0PsJl55P2 LydAedu2AsOtm5rp92xPSup4L5 kJR2FOezOOOxvI8vCHhrCcZ6 PZBbGnLhlT35pXEkRSrxZo3zxW xctKbxVW0gIITxnrxpRJIfnW7m ARYtcBBpoCvmKQ8bAOQomlvw q245KnShYAW6SBZehIAhE0XfyY 7hNwEdNSHpAQXqL1WolOVsIFdk N989ABaeDmO4MPSqxrVxU2Bd BFNtvOdhJmN1r6Z4Wr5Rd1Dkhq ikXKX4KOecQOZ7FnH4DqZfKiO3 M9ElDxz2CDNwzIpcFT9bD8Dp OAOnwqouijytjEZ9WBRxCVKfmR 86oGTlKZrzFk0wk9H2l806VZYz JSMgjW79Gf0njCizDCJeaEIS lK4oqveai0uomjpfKuEqNYYrUC v0OUs5NMNdrGloXgHmDCL7BpU5 JYT7eWFmkN3ekTmwjukfrY6z Oyc+F79cmH1lXJX8CJT3edsdDO GteuRqQV09MC28I8PsYefctGKl bGU+NNCkipObvBdzTV2pPgXt e1xwy0EyKYpoE5ZwJGLwSIdhZi d8HVLxJRH1wQK1gM7zXVDmEQvk p5A2bUV9T4UcaeIeuo6ma1nm GFMdYMywH07waPKlo3R4WKOjuI X6TDFmxCghZmWyjH66Udu+PGNv kLhph2GhJrfhe8snp5wasJx8 BfErASKppiErbXlwQAW3q7JiSk 65I53aNLicODWoLOTtUONrGTGn aDweof8epF2zDj0+PGNvbCB3 xTV1iL9iSMVvIiG3EDvrB704Bm XmiXMlOjrrl0wjb7alfWo5BlVi BYWmxjOmzMrkWJX7x9CkJm37 Z51rTEzaPGPlSVTeOKTsTQMwkB mtyg9lhT0nNg1+FA1ar6qilj42 yZ75uPU+MGEwMAC9xScjZGbd NUNulR8bRYjdVwH1NENrNtUupA 09vUJtWEpbWx2eeHpeaFvjZW4m QXQbuqyhg792UzVtd9sgMAEm rNSfOErdPYS0O39xl4Q9QZIoLU HwUIN0uDO3xE0jrYhyeauhgICo rKeepgJifVboOHsjXKufG108 IHRvcDsnPlBhdGllbnQgTmFtZT z3W6RpFae6HYFtvCxzCM0dbHWz UWerYh0ydTtzkSwrQJ8jZVOg zyfgd635PyRnq0uuBFBfrYCxZW ynSTA1B67ln9M7YIUbNQQpOQK6 aVG1vK1qzOjryvjkuKNjkIgb piQfeHovAZrpCZkfG849FXFugG xuTjFdcbYkXWBlgWK6BF07QM79 zQZne7L7hIS0S0WzIHIcdrfw qfdnjEV1UHDnJJNdyR33Ru5fxK joDg2rAFHmPIV1ZOTaoWGlO2Vo iU7vJwYqUCCuKPLbD7BprRCf CLbnJ664ZMljDiQ9DKUsksKuC9 ZnZJQzoKazLnC7y1F0Kv8LY3N2 SI37NE47xHYca0X5vUG0N4Kl QCYskgkmgiqtoFU9IMVwKGXmhT 73Xr3baDllKi6wNHGkOPH2RPEa aAVdM8QhuK3hMuTvHOBdZPKy P0FqaOGiGQkfQ813KZwvCwU6PR QfflSdS7OqEZNeeAsfYlI9b9T0 Iz6KKOz1SY65JB00vPWdw7G0 pZI6V9BiZERieffajwumyLU6QU MmMYOijJ43Zx2wgSjbNx8xNHBt HFJ7NZOzaUGrV2OyxR3rTmYj WTJiEZKcX6YguSUrBIxvU560YL mcIoW3SEEqbjRbG5AsKJXkmHdg SbG1t1O4Lo0NORBnVP55OKV8 iJT2WP90QV03P5FsCyxokIOykB U+PHRhYmxlIHdpZHRoPScxMDAl UdQddZcxXN7aWo6sVCToQNHi vVpxdVWzDhJct4bdEXTzLGgtQP 7ofNgoC6XaeOJ4HFOds3b8Sf99 M27jE5XosEZ+VCCubPF3nHN9 xT3xDiTuAvA2PCgyW206DiLcuH JyMhtap8odq2cstJt2XeC0LOCh mlGydYjeLUA2n4XtHd02R75p IHdpZHRoPSIxNSUiIHZhbGlnbj 5ymJ7nNq9+TVCqkEW4wES4jH0i PhSpYcQ2GAvnX841XmZotXOh Ioeih0run3pngUo0ChFbMFHnie HvyKvvTUY5t2XcJd22K0ZdxDqr t7YfCgq5jd02pZDis4Z3hBX3 R3ZlJRUetryttQNchXseRM7aKU AllrpsMIQfvT7aZXFyG8f6TrCo NyZ0TOngQ0McryA7DVIytUOl SUsgMZI0Z38ul3N8VYLzVWLhYI E0aIV1mF8fhFqpxypcjOHvjCom wuQptCubDEpgZKhyM703VMDi qHvpYBAxvM4pLPWxuNRsyMgqSV 8cFFIttcmrXfBHDD7JCSMqUAwZ RkZSRVkgUzwvdGQ+PHRkIHN0 uKivYGdfSFUijF7hMVMtK2z9Hr AuUlN6BLuoX3EkPAXizaraSp85 hV4kTaHoBiY4GUkgN7KbalQ0 GKYtuFQoRFhiEOB4H94qg1E9SM OhAMDrENB1xFD4vM1jqUitnzhe bGVmdDsgdmVydGljYWwtYWxp Q223BRIbtJtgLkVdVjEzCwA8FS z5O8AbCps5QQDrtEmeCL2hgGKe LTonBr8kcWmvbAxnPH1hXULn wfrzBIDhsX8sEJKcyMAtdFcvJP 7fUYMsjocqr670WsZjWJK1VBLf lWVvQ3HwbL5yUcVhRHGgPZOz K8TspCWnNQveA394YFlxRoG1OJ VrvsJuH1HjKFPjnPpxTrY7p6X9 Fn88PdTFQKMzlczmvBD+PHRk MML0gGkzJCxyTZGmpD5dQBAgV2 a3CsObIoT7KKtnM0KkIFWaixoq Lm50mN1dBuDyJlF1BJujS5Tt wjN5QGSmsHDeLMfcHGR6A11li9 B7PEVhQYVsCFG6hKY5pX3xyPwv bjogbGVmdDsgdmVydGljYWwt UXvsF314HCFtjTtyCi0riXT6O1 CtXsv5NPGheSqoRG0mdMAyNMad Kb7xuPxnmAmnLZ2mIKVlilnc CFNvdK5iIVLgvZPsuRcjWT1rLR Rqserjr031QiIxDZQ5UBOslCSw W8AbtE2wVwVcRPNlWNXdB3Mx nGTmQSxjK308DNuuPbN7TEGqkj GqI5WbHWZhuMofWzA6p2Q5Gk5X kIPdGMGwDO30PU13OL35B5Rs PjwvdGFibGU+PHRhYmxlIHdpZH OdGJnkBLWoYjEszBfhVN7rDr4v RVKmGAHcdKximQRpNnRnc9ai NSSlFHlgWF4gxQpqK0VdpGN5SN Umf3z2Rz75Z77wS9AnaWS+PGNv eQG6jNA2zD4lUnSqUyV9LYbp I647UdEpsUThSfpwu6zea2nnxB p9MwHrCGFyrjTgsRrfQTP8i7Rj Wq03T75dXEooTJVcPOQhJQPi ZITobCvzpy8chN8nHr4+PGNvbC J3fNI8oN9eZfNxOnJ6XYvpH321 ZtHzeKUzNbebM24qX8FkuPY+ QXSwZer5YNCdfNksSH5ewVVjOL nmHk9iBMW7SiKhYdAxRUlkC7Ds CDMpzpwwefxuaJO5ZBXvYLPo cI27Gs2nxSwyEz7vCAOzHIK2BF TswUMrU2XifS1vOfQtLJReOAVu B8RovVGpIChvW917DPhdYnE8 AFDvwrGkU3OkBZMwlRzeNqV2k9 S2Dp0EsTefkYVnVD7dNnRwZPr9 S1SiCnv3XVVwuXeqLE0rqACd GAnhGw3ksCjbmGyrQI5qYYEbyo xxb507FkOlf5ggUVLgqSSxBBse GVC8P25jb1F4UUEkWQMcRPB0 kEE5iD9taSrdzxswgNSepGeetl RmiYzrJLghRAaxM082QKTmzBvy CrVXDbe6P3VoAyu4TQVuaIbo JE1woFAyTNazRm7gsQzcfQxrGV 3vCGUidcoxs308TjCis1onDYTm bNUqVZveGWR5S58gf5N3KVMm ITJgINX1yVR7bV8xcWkgvmcgdS SlkXmdzwAsxFpyIEfbCZpnL119 GYUaeNsmHn5KDcb0I4ZyKmk5 BYCleZduJH3cwHOmOKdbCg3doC covUauRV7hKXQgbobpv718LaOl s1wpRVNmlPOpECwtFNM2F10y j2N1JSIhHMMuBDD9rHS7bF0dnO lnbjogbGVmdDsgdmVydGljYWwt CZgsO532CJLjdXbyYbUemYQk OjwvdGQ+VA25it72D1YoRzwmYq v7WEBbFJI5nZO2kT2lEPQfKXng a8E5oOS4B1HywmTfui0un0rj YXBz (more content not included)... [facility] Immunization Recordson 04-04 Immunization Records [id number]#1.00CD:127 Normal [facility] ABO/Rh Retypeon 04-03-2021 ABO/Rh Retype Interp Positive Invalid Interpretation Code [facility] Comment on above: Performed By: #### 1 [id number] ####[facility] [address] [place] [address] BUNon 04-03-2021 Urea nitrogen [Mass/Vol] 22 mg/dL High 5-21 [facility] Comment on above: Performed By: #### 1 [id number] #### [facility] [address] [place] [address] CBC w/Indiceson 04-03-2021 Erythrocyte distribution width (RBC) [Ratio] 12.7 % Normal 10.9-14.2 [facility] Comment on above: Performed By: #### 1 [id number] #### [facility] [address] [place] [address] Hematocrit (Bld) [Volume fraction] 47.4 % Normal 37.7-49.0 [facility] Comment on above: Performed By: #### 1 [id number] #### [facility] [address] [place] [address] Hemoglobin (Bld) [Mass/Vol] 16.1 g/dL Normal 13.5-17.5 [facility] Comment on above: Performed By: #### 1 [id number] #### [facility] [address] [place] [address] MCH (RBC) [Entitic mass] 31.8 pg Normal 27.0-34.0 [facility] Comment on above: Performed By: #### 1 [id number] #### [facility] [address] [place] [address] MCHC (RBC) [Mass/Vol] 34.1 g/dL Normal 31.4-36.0 [facility] Comment on above: Performed By: #### 1 [id number] #### [facility] [address] [place] [address] MCV (RBC) [Entitic vol] 93.2 fL Normal 80.0-100.0 [facility] Comment on above: Performed By: #### 1 [id number] #### [facility] [address] [place] [address] Platelet mean volume (Bld) [Entitic vol] 9.3 fL Normal 6.4-10.8 [facility] Comment on above: Performed By: #### 1 [id number] #### [facility] [address] [place] [address] Platelets (Bld) [#/Vol] 168.0 E9/L Normal 150.0-500.0 [facility] Comment on above: Performed By: #### 1 [id number] #### [facility] [address] [place] [address] RBC (Bld) [#/Vol] 5.1 E12/L Normal 4.3-5.9 [facility] Comment on above: Performed By: #### 1 [id number] #### [facility] [address] [place] [address] WBC corrected for nucl RBC Auto (Bld) [#/Vol] 8.0 E9/L Normal 4.0-11.0 [facility] Comment on above: Performed By: #### 1 [id number] #### [facility] [address] [place] [address] Consent for Treatmenton Consent for Treatment [id number]#1.00CD:127 Normal [facility] Creatinineon 04-03-2021 Creatinine [Mass/Vol] 0.7 mg/dL Normal 0.5-1.3 [facility] Comment on above: Performed By: #### 1 [id number] #### [facility] [address] [place] [address] Glucoseon 04-03-2021 Glucose [Mass/Vol] 249 mg/dL High 55-199 [facility] Comment on above: Performed By: #### 1 [id number] #### [facility] [address] [place] [address] NkqI6wsy 04-03-2021 HbA1c (Bld) [Mass fraction] 7.9 % High <=5.9 [facility] Comment on above: Performed By: #### 7 [id number] #### [facility] [address] [place] [address] Lyteson 04-03-2021 Anion gap [Moles/Vol] 15 mmol/L Normal 6-16 [facility] Comment on above: Performed By: #### 1 [id number] #### [facility] [address] [place] [address] Chloride [Moles/Vol] 94 mmol/L Low 101-111 [facility] Comment on above: Performed By: #### 1 [id number] #### [facility] [address] [place] [address] CO2 [Moles/Vol] 27 mmol/L Normal 21-31 [facility] Comment on above: Performed By: #### 1 3789036 #### [facility] [address] [place] [address] Potassium [Moles/Vol] 4.2 mmol/L Normal 3.5-5.3 [facility] Comment on above: Performed By: #### 1 [id number] #### [facility] [address] [place] [address] Sodium [Moles/Vol] 132 mmol/L Low 135-145 [facility] Comment on above: Performed By: #### 1 [id number] #### [facility] [address] [place] [address] XR Chest 2 Viewson 1 XR Chest 2 Views Exam Date/Time: 04/03/2021 [...] Jenkins MD, V. Transcribed by: BECKY Technologist: [facility] eGFRon 04-03-2021 GFR/1.73 sq M.predicted among blacks MDRD (S/P/Bld) [Vol rate/Area] mL/min/{1.73_m2} Normal >=59 [facility] Comment on above: Order Comment: Order added by Discern Expert. Result Comment: eGFR is race adjusted. AA=. Performed By: #### 1 [id number] #### [facility] [address] [place] [address] GFR/1.73 sq M.predicted among non-blacks MDRD (S/P/Bld) [Vol rate/Area] mL/min/{1.73_m2} Normal >=59 [facility] Comment on above: Order Comment: Order added by Discern Expert. Result Comment: Bench Grinder aracely kidney disease could be indicated at eGFR's of less than 60 mL/min/1.73m2. Kidney failure is indicated at less than 15 mL/min/1.73m2. Performed By: #### 1 [id number] #### [facility] [address] [place] [address] Physician Orderon 03-01-2021 Physician Order [id number]#1.00CD:127 [facility] Pre-Certification Formon Pre-Certification Form [id number]#1.00CD:127 [facility] Physician Orderon 02-28-2021 Physician Order [id number]#1.00CD:127 [facility] Coding Summary.on 12-21-2020 Coding Summary. CODING DATE: 021 FINAL [facility] STATUS: Home (Routine DC) PAYOR: Medicare [...] CphT Date Saved: 12/21/2020 01:14 pm Normal [facility] CT Upper Extremity w/ Contra st [...] Report Acromioclavicular Joint: Severe degenerative changes with yzui-ab-udqz contact, extensive subchondral cystic changes involving the [...] None Contrast amount in ml's: 0 Normal [facility] Consent for Treatmenton 11-28 Consent for Treatment [id number]#1.00CD:127 Normal [facility] Creatinineon 12-20-2020 Creatinine [Mass/Vol] 0.7 mg/dL Normal 0.5-1.3 [facility] Comment on above: Performed By: #### 2 [id number], [id number] #### [facility] [address] [place] [address] Physician Orderon 12-20-2020 Physician Order [id number]#1.00CD:127 Normal [facility] RAD - Consent to Procedureon 12-20-2020 RAD - Consent to Procedure [id number]#1.00CD:127 Normal [facility] XR Inj Shoulder Arthrogram R ighton [...] shoulder joint. Patient tolerated the procedure well. Legal Executive Assistant image shows minimal calcification adjacent to the [...] Dose: Ka,r in mGy = 21 Normal [facility] eGFRon 12-20-2020 GFR/1.73 sq M.predicted among blacks MDRD (S/P/Bld) [Vol rate/Area] mL/min/{1.73_m2} Normal >=59 [facility] Comment on above: Order Comment: Order added by Discern Expert. Result Comment: eGFR is race adjusted. AA=. Performed By: #### 2 [id number], [id number] #### [facility] [address] [place] [address] GFR/1.73 sq M.predicted among non-blacks MDRD (S/P/Bld) [Vol rate/Area] mL/min/{1.73_m2} Normal >=59 [facility] Comment on above: Order Comment: Order added by Discern Expert. Result Comment: Bench Grinder aracely kidney disease could be indicated at eGFR's of less than 60 mL/min/1.73m2. Kidney failure is indicated at less than 15 mL/min/1.73m2. Performed By: #### 2 [id number], [id number] #### [facility] [address] [place] [address] Physician Orderon 12-08-2020 Physician Order [id number]#1.00CD:127 Normal [facility] Pre-Certification Formon Pre-Certification Form [id number]#1.00CD:127 [facility] Consent for Treatmenton Consent for Treatment [id number]#1.00CD:127 [facility] RAD - MISCon 12-05-2020 RAD - MISC [id number]#1.00CD:127 [facility] RAD - MRI Screening Formon 0 12-05-2020 RAD - MRI Screening Form [id number]#1.00CD:127 [facility] Physician Orderon 11-29-2020 Physician Order [id number]#1.00CD:127 [facility] Pre-Certification Formon Pre-Certification Form [id number]#1.00CD:127 [facility] Vital Signs Date Time Vital Sign Value Performing Clinician Facility 07-06-2024 10: Body height 170.18 cm [facility] 07-06-2024 10: Body mass index (BMI) [Ratio] 36.5 kg/m2 [facility] 07-06-2024 10:04-0400 Body temperature 97.4 [degF] [facility] 07-06-2024 10:04-0400 Body weight 105.68 kg [facility] 07-06-2024 10:04-0400 Diastolic blood pressure 71 mm[Hg] [facility] 07-06-2024 10:04-0400 Heart rate 75 /min [facility] 07-06-2024 10:04-0400 Respiratory rate 20 /min [facility] 07-06-2024 10:04-0400 SaO2% (BldA) [Mass fraction] 97 % [facility] 07-06-2024 10:04-0400 Systolic blood pressure 135 mm[Hg] [facility] 04-01-2024 09:01-0400 Body height 170.2 cm Maryann Rubalcava MD Work Phone: [facility] 04-01-2024 09:01-0400 Body mass index (BMI) [Ratio] 35.24 kg/m2 Maryann Rubalcava MD Work Phone: [facility] 04-01-2024 09:01-0400 Body weight 102.06 kg Maryann Rubalcava MD Work Phone: [facility] 04-01-2024 09:01-0400 Diastolic blood pressure 65 mm[Hg] Maryann Rubalcava MD Work Phone: [facility] 04-01-2024 09:01-0400 Heart rate 89 /min Maryann Rubalcava MD Work Phone: [facility] 04-01-2024 09:01-0400 Respiratory rate 20 /min Maryann Rubalcava MD Work Phone: [facility] 04-01-2024 09:01-0400 Systolic blood pressure 129 mm[Hg] Maryann Rubalcava MD Work Phone: [facility] 03-11-2024 11:16-0400 Body height 170.18 cm DO Josh Melvin Work Phone: [facility] 03-11-2024 11:16-0400 Body mass index (BMI) [Ratio] 37.6 kg/m2 DO Josh Bunting Work Phone: [facility] 03-11-2024 11:16-0400 Body weight 109 kg DO Josh Bunting Work Phone: [facility] 01-19-2024 18:15-0400 Heart rate 90 /min DO Josh Bunting Work Phone: [phone] [place] [address] 01-19-2024 18:15-0400 Inhaled oxygen flow rate 1 L/min DO Josh Bunting Work Phone: [facility] 01-19-2024 18:15-0400 Respiratory rate 16 /min DO Josh Bunting Work Phone: [phone] [address] 01-19-2024 18:15-0400 SaO2% (BldA) [Mass fraction] 92 % DO Josh Bunting Work Phone: [facility] 01-19-2024 18:00-0400 Diastolic blood pressure 65 mm[Hg] DO Josh Bunting Work Phone: [facility] 01-19-2024 18:00-0400 Systolic blood pressure 134 mm[Hg] DO Josh Bunting Work Phone: [facility] 01-19-2024 17:26-0400 Body temperature 97.5 [degF] DO Josh Bunting Work Phone: [facility] 01-19-2024 13:53-0400 Body height 167.64 cm DO Josh Bunting Work Phone: [facility] 01-19-2024 13:53-0400 Body mass index (BMI) [Ratio] 38.7 kg/m2 DO Josh Bunting Work Phone: [facility] 01-19-2024 13:53-0400 Body weight 108.86 kg DO Josh Bunting Work Phone: [facility] 11-11-2023 10:37-0500 Body height 170.2 cm Maryann Rubalcava MD Work Phone: [facility] 11-11-2023 10:37-0500 Body mass index (BMI) [Ratio] 36.02 kg/m2 Maryann Rubalcava MD Work Phone: [facility] 11-11-2023 10:37-0500 Body temperature 98.6 [degF] Maryann Rubalcava MD Work Phone: [facility] 11-11-2023 10:37-0500 Body weight 104.33 kg Maryann Rubalcava MD Work Phone: [facility] 11-11-2023 10:37-0500 Diastolic blood pressure 62 mm[Hg] Maryann Rubalcava MD Work Phone: [facility] 11-11-2023 10:37-0500 Heart rate 98 /min Maryann Rubalcava MD Work Phone: [facility] 11-11-2023 10:37-0500 Systolic blood pressure 136 mm[Hg] Maryann Rubalcava MD Work Phone: [facility] 11-03-2023 16:35-0500 Diastolic blood pressure 59 mm[Hg] DO Josh Bunting Work Phone: [facility] 11-03-2023 16:35-0500 Heart rate 91 /min DO Josh Bunting Work Phone: [facility] 11-03-2023 16:35-0500 Respiratory rate 16 /min DO Josh Bunting Work Phone: [facility] 11-03-2023 16:35-0500 SaO2% (BldA) [Mass fraction] 92 % DO Josh Bunting Work Phone: [facility] 01-08-2024 16:35-0500 Systolic blood pressure 117 mm[Hg] DO Josh Bunting Work Phone: [facility] 11-03-2023 15:41-0500 Body temperature 97.4 [degF] DO Josh Bunting Work Phone: [facility] 11-03-2023 15:11-0500 Inhaled oxygen flow rate 3 L/min DO Josh Bunting Work Phone: [facility] 11-03-2023 11:46-0500 Body height 170.18 cm DO Josh Bunting Work Phone: [facility] 11-03-2023 11:46-0500 Body mass index (BMI) [Ratio] 37.6 kg/m2 DO Josh Bunting Work Phone: [facility] 11-03-2023 11:46-0500 Body weight 109 kg DO Josh Bunting Work Phone: [facility] 10-14-2023 09:40-0500 Body height 170.18 cm Karime Nguyen Other [facility] 10-14-2023 09:40-0500 Body mass index (BMI) [Ratio] 37.9 kg/m2 Karime Nguyen Other [employer] [facility] [employer] Other 10-14-2023 09:40-0500 Body weight 109.77 kg Karime Nguyen Other [employer] Other 10-14-2023 09:40-0500 Body weight 109.76 kg DO Josh Bunting Work Phone: [facility] 10-02-2023 09:10-0500 Body height 170.18 cm DO Josh Bunting Work Phone: [facility] 10-02-2023 09:10-0500 Body mass index (BMI) [Ratio] 37.3 kg/m2 DO Josh Bunting Work Phone: [facility] 10-02-2023 09:10-0500 Body weight 108 kg DO Josh Bunting Work Phone: [facility] 10-02-2023 08:53-0500 Body temperature 98.5 [degF] DO Josh Bunting Work Phone: [facility] 10-02-2023 08:53-0500 Diastolic blood pressure 82 mm[Hg] DO Josh Bunting Work Phone: [facility] 10-02-2023 08:53-0500 Heart rate 92 /min DO Josh Bunting Work Phone: [facility] 10-02-2023 08:53-0500 Respiratory rate 18 /min DO Josh Bunting Work Phone: [facility] 10-02-2023 08:53-0500 SaO2% (BldA) [Mass fraction] 95 % DO Josh Bunting Work Phone: [facility] 10-02-2023 08:53-0500 Systolic blood pressure 169 mm[Hg] DO Josh Bunting Work Phone: [facility] 09-16-2023 09:20-0500 Body height 170.18 cm Karime Nguyen Other [employer] Other 09-16-2023 09:20-0500 Body mass index (BMI) [Ratio] 37.59 kg/m2 [employer] Other [employer] Other 09-16-2023 09:20-0500 Body weight 108.86 kg [employer] Other [employer] Other 07-29-2023 16:43-0400 Body height 167.64 cm DO Josh Bunting Work Phone: [facility] 07-29-2023 16:43-0400 Body temperature 98 [degF] DO Josh Bunting Work Phone: [facility] 07-29-2023 16:43-0400 Body weight 104.32 kg DO Josh Bunting Work Phone: [facility] 07-29-2023 16:43-0400 Diastolic blood pressure 74 mm[Hg] DO Josh Bunting Work Phone: [facility] 07-29-2023 16:43-0400 Heart rate 99 /min DO Josh Bunting Work Phone: [facility] 07-29-2023 16:43-0400 Respiratory rate 24 /min DO Josh Bunting Work Phone: [facility] 07-29-2023 16:43-0400 SaO2% (BldA) [Mass fraction] 94 % DO Josh Bunting Work Phone: [facility] 07-29-2023 16:43-0400 Systolic blood pressure 141 mm[Hg] DO Josh Bunting Work Phone: [facility] 03-26-2023 11:26-0400 Heart rate 88 /min Donny Peralta APRN.CULINARY DIRECTOR Work Phone: [facility] 03-26-2023 11:26-0400 Respiratory rate 17 /min Donny Peralta APRN.CULINARY DIRECTOR Work Phone: [facility] 03-26-2023 11:26-0400 SaO2% (BldA) [Mass fraction] 98 % Donny Peralta APRN.CULINARY DIRECTOR Work Phone: [facility] 04-16-2022 09:30-0400 Body height 170.18 cm Mariel Mcgraw Other [employer] Other 04-16-2022 09:30-0400 Body temperature 97.6 [degF] Mariel Mcgraw Other [employer] Other 04-16-2022 09:30-0400 Diastolic blood pressure 78 mm[Hg] Mariel Mccarthyban Other [employer] Other 04-16-2022 09:30-0400 Respiratory rate 20 /min Mariel Mccarthyban Other [employer] Other 04-16-2022 09:30-0400 SaO2% (BldA) [Mass fraction] Mariel Mccarthyban Other [employer] Other 04-16-2022 09:30-0400 Systolic blood pressure 154 mm[Hg] Mariel Chaban Other [employer] Other 01-08-2022 14:30-0400 Body height 170.18 cm Mariel Mccarthyban Other [employer] Other 01-08-2022 14:30-0400 Body mass index (BMI) [Ratio] 37.27 kg/m2 Mariel Mccarthyban Other [employer] Other 01-08-2022 14:30-0400 Body temperature 97.4 [degF] Mariel Mccarthyban Other [employer] Other 01-08-2022 14:30-0400 Body weight 107.96 kg Mariel Mccarthyban Other [employer] Other 01-08-2022 14:30-0400 Diastolic blood pressure 72 mm[Hg] Mariel Chaban Other [employer] Other 01-08-2022 14:30-0400 Respiratory rate 20 /min Mariel Mccarthyban Other [employer] Other 01-08-2022 14:30-0400 SaO2% (BldA) [Mass fraction] 95 % Mariel Mccarthyban Other [employer] Other 01-08-2022 14:30-0400 Systolic blood pressure 130 mm[Hg] Mariel Mccarthyban Other [employer] Other 09-06-2021 10:00-0500 Body height 170.18 cm Mariel Mccarthyban Other [employer] Other 09-06-2021 10:00-0500 Body mass index (BMI) [Ratio] 37.59 kg/m2 Mariel Mccarthyban Other [employer] Other 09-06-2021 10:00-0500 Body temperature 96.8 [degF] Mariel Mccarthyban Other [employer] Other 09-06-2021 10:00-0500 Body weight 108.86 kg Mariel Mcgraw Other [employer] Other 09-06-2021 10:00-0500 Diastolic blood pressure 68 mm[Hg] Mariel Mccarthyban Other [employer] Other 09-06-2021 10:00-0500 Respiratory rate 20 /min Mariel Mccarthyban Other [employer] Other 09-06-2021 10:00-0500 SaO2% (BldA) [Mass fraction] 95 % Mariel Mccarthyban Other [employer] Other 09-06-2021 10:00-0500 Systolic blood pressure 136 mm[Hg] Mariel Mccarthyban Other [employer] Other 07-23-2021 10:30-0400 Body height 170.18 cm Mariel Mcgraw Other [employer] Other 07-23-2021 10:30-0400 Body mass index (BMI) [Ratio] 38.21 kg/m2 Mariel Mcgraw Other [employer] Other 07-23-2021 10:30-0400 Body temperature 96.1 [degF] Mariel Mcgraw Other [employer] Other 07-23-2021 10:30-0400 Body weight 110.68 kg Mariel Mcgraw Other [employer] Other 07-23-2021 10:30-0400 Diastolic blood pressure 78 mm[Hg] Mariel Mccarthyban Other [employer] Other 07-23-2021 10:30-0400 Respiratory rate 20 /min Mariel Mcgraw Other [employer] Other 07-23-2021 10:30-0400 SaO2% (BldA) [Mass fraction] 95 % Mariel Mcgraw Other [employer] Other 07-23-2021 10:30-0400 Systolic blood pressure 150 mm[Hg] Mariel Mccarthyban Other [employer] Other Encounters Encounter Date Encounter Type Care Provider Facility Start: 07-09-2024 End: 07-09-2024 ambulatory FEROZ PATEL Not Available Start: 07-08-2024 Evaluation and management of inpatient [facility] Start: 07-06-2024 End: 07-06-[address] [facility] Work Phone: Start: 07-06-2024 End: 07-06-2024 Patient encounter procedure [facility] Work Phone: Start: 07-01-2024 End: 07-01-2024 ambulatory [facility] Start: 06-15-2024 End: 06-15-2024 ambulatory DAMARI TOWNSEND Not Available Start: 05-24-2024 End: 05-25-2024 Evaluation and management of inpatient [facility] Start: 05-17-2024 End: 05-17-2024 ambulatory JOSH VILLASEÑOR [facility] Start: 05-17-2024 End: 05-17-2024 ambulatory [facility] Start: 04-26-2024 End: 04-26-2024 ambulatory Savanna Mcclain MD Facility: [facility] Start: 04-21-2024 End: 04-21-2024 ambulatory BRYCE URENA Not Available Start: 04-12-2024 End: 04-12-2024 ambulatory Savanna Mcclain MD Facility: [facility] Start: 04-09-2024 End: 04-09-2024 ambulatory FEROZ M AMANDA Not Available Start: 04-01-2024 End: 04-01-2024 Subsequent hospital visit by physician Par X-Ray [facility] Comment on above: Cervical myelopathy (Multi) Start: 04-01-2024 End: 04-01-2024 ambulatory [facility] Start: 04-01-2024 End: 04-01-2024 Office outpatient visit 40 minutes Maryann Rubalcava MD Work Phone: [facility] Comment on above: 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 (Primary Dx); Cervical myelopathy (Multi) Start: 04-01-2024 End: 04-01-2024 ambulatory [facility] Start: 03-31-2024 End: 03-31-2024 Patient encounter procedure DO Josh Bunting Work Phone: [facility] [address] [place] Work Phone: Start: 03-31-2024 End: 03-31-2024 ambulatory DO Josh Bunting Work Phone: [facility] Work Phone: Start: 03-15-2024 End: 03-15-2024 ambulatory Savanna Mcclain MD Facility:[facility] Start: 03-11-2024 End: 03-11-2024 Patient encounter procedure DO Josh Bunting Work Phone: [facility] Work Phone: Start: 02-25-2024 End: 02-25-2024 ambulatory YOGESH BECKER V Not Available Start: 02-16-2024 End: 02-16-2024 ambulatory Savanna Mcclain MD Facility:[facility] Start: 01-26-2024 End: 01-26-2024 ambulatory YOGESH BECKER V Not Available Start: 01-19-2024 End: 01-19-2024 Admission to same day surgery center DO Josh Bunting Work Phone: [facility] [place] Start: 01-19-2024 End: 01-19-2024 ambulatory DO Josh Bunting Work Phone: [facility] Work Phone: Start: 01-12-2024 End: 01-12-2024 Patient encounter procedure DO Josh Bunting Work Phone: [facility] Work Phone: Start: 01-12-2024 End: 01-12-2024 ambulatory DO Josh Bunting Work Phone: [facility] Work Phone: Start: 01-12-2024 Encounter for preprocedural laboratory examination Yogesh Ray [facility] Start: 01-08-2024 End: 01-08-2024 ambulatory FEROZ Barnett AMANDA Not Available Start: 01-06-2024 End: 01-06-2024 ambulatory YOGESH BECKER V Not Available Start: 12-16-2023 End: 12-16-2023 Patient encounter procedure DO Josh Bunting Work Phone: [facility] [address] Work Phone: Start: 12-16-2023 End: 12-16-2023 ambulatory DO Josh Bunting Work Phone: [facility] Work Phone: Start: 12-08-2023 End: 12-08-2023 ambulatory Savanna Mcclain MD Facility: [facility] Start: 11-25-2023 End: 11-25-2023 Patient encounter procedure DO Josh Bunting Work Phone: [facility]CT Scan [address] [place] Work Phone: Start: 11-25-2023 End: 11-25-2023 ambulatory DO Josh Bunting Work Phone: [facility] Work Phone: Start: 11-24-2023 End: 11-24-2023 Patient encounter procedure DO Josh Bunting Work Phone: [facility] [place] Work Phone: Start: 11-24-2023 End: 11-24-2023 ambulatory DO Josh Bunting Work Phone: [facility] Work Phone: Start: 11-17-2023 End: 11-17-2023 ambulatory Savanna Mcclain MD Facility: [facility] Start: 11-11-2023 End: 11-11-2023 ambulatory [facility] Start: 11-11-2023 End: 11-11-2023 Office consultation new/estab patient 80 min Maryann Rubalcava MD Work Phone: [facility] Comment on above: Cervical myelopathy (CMS/HCC) (Primary Dx); Sagittal plane imbalance; 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; Lumbar stenosis with neurogenic claudication Start: 11-10-2023 End: 11-10-2023 ambulatory YOGESH BECKER V Not Available Start: 11-03-2023 End: 11-03-2023 Admission to same day surgery center DO Josh Bunting Work Phone: [facility] [place] Start: 11-03-2023 End: 11-03-2023 ambulatory DO Josh Bunting Work Phone: [facility] Work Phone: Start: 10-23-2023 End: 10-23-2023 Patient encounter procedure DO Josh Bunting Work Phone: [facility]Pre-Surgical Testing Work Phone: Start: 10-23-2023 End: 10-23-2023 ambulatory DO Josh Bunting Work Phone: [facility] Work Phone: Start: 10-14-2023 Office outpatient vi sit 40 minutes Karime Nguyen [facility] Neurosurgery Start: 10-14-2023 End: 10-14-2023 ambulatory YOGESH LAMGAS V [facility] [employer] Other Start: 10-14-2023 End: 10-14-2023 Patient encounter procedure DO Josh Bunting Work Phone: [facility] Neuro[facility] Work Phone: Start: 10-09-2023 End: 10-09-2023 ambulatory FEROZ PATEL Not Available Start: 10-02-2023 End: 10-02-2023 Admission to same day surgery center DO Josh Bunting Work Phone: [facility] [place] Start: 10-02-2023 End: 10-02-2023 ambulatory DO Josh Bunting Work Phone: [facility] Work Phone: Start: 09-30-2023 End: 09-30-2023 ambulatory Savanna Mcclain MD Facility:[facility] Start: 09-29-2023 End: 09-29-2023 ambulatory Saavnna Mcclain MD Facility:[facility] Start: 09-26-2023 End: 09-26-2023 ambulatory IMTIAZ ZAIDI Not Available Start: 09-23-2023 End: 09-23-2023 Patient encounter procedure DO Josh Bunting Work Phone: [facility]Pre-Surgical Testing Work Phone: Start: 09-23-2023 End: 09-23-2023 ambulatory DO Josh Bunting Work Phone: [facility] Work Phone: Start: 09-22-2023 End: 09-22-2023 ambulatory Savanna Mcclain MD Facility: [facility] Start: 09-16-2023 End: 09-16-2023 ambulatory Karime Nguyen Other [facility] [employer] Other Start: 09-16-2023 Office outpatient ne w 45 minutes Karime Nguyen [facility] Start: 09-16-2023 End: 09-16-2023 Patient encounter procedure DO Josh Bunting Work Phone: [facility] Work Phone: Start: 08-11-2023 End: 08-11-2023 Patient encounter procedure DO Josh Bunting Work Phone: [facility] [place] Work Phone: Start: 08-11-2023 End: 08-11-2023 ambulatory DO Josh Bunting Work Phone: [facility] Work Phone: Start: 08-01-2023 End: 08-01-2023 Patient encounter procedure DO Josh Bunting Work Phone: [facility] [place] Work Phone: Start: 08-01-2023 End: 08-01-2023 ambulatory Josh Bunting Facility:[facility] Start: 07-29-2023 End: 07-29-2023 Emergency department patient visit DO Josh Bunting Work Phone: [facility]-Emergency Room Work Phone: Start: 06-12-2023 End: 06-12-2023 ambulatory Mariel Mcgraw Other [employer] Other Start: 06-12-2023 Telephone encounter Ulyssessam Mcgraw [facility] Start: 04-21-2023 End: 04-21-2023 Patient encounter procedure DO Josh Bunting Work Phone: [facility] [place] Work Phone: Start: 04-21-2023 End: 04-21-2023 ambulatory DO Josh Bunting Work Phone: [facility] Work Phone: Start: 03-26-2023 End: 03-26-2023 ambulatory DONNY PERALTA Facility:[facility] Start: 03-26-2023 End: 03-26-2023 Patient encounter procedure Donny Peralta FIRE MANAGEMENT OFFICER.CULINARY DIRECTOR Work Phone: Otolaryngology Comment on above: Laryngeal candidiasi s (Primary Dx); Glossitis; Oral candidiasis; Hoarseness of voice; History of alcohol abuse Start: 02-10-2023 End: 02-10-2023 ambulatory DO Josh Bunting Work Phone: [facility] Work Phone: Start: 02-10-2023 End: 02-10-2023 Patient encounter procedure DO Josh Bunting Work Phone: [facility] [place] Work Phone: Start: 12-31-2022 End: 12-31-2022 ambulatory DO Josh Bunting Work Phone: [facility] Work Phone: Start: 12-31-2022 End: 12-31-2022 Patient encounter procedure DO Josh Bunting Work Phone: [facility] [address] Work Phone: Start: 11-06-2022 End: 11-06-2022 ambulatory DO Josh Bunting Work Phone: [facility] Work Phone: Start: 11-06-2022 End: 11-06-2022 Patient encounter procedure DO Josh Bunting Work Phone: [facility] [place] Work Phone: Start: 09-30-2022 End: 09-30-2022 ambulatory DO Josh Bunting Work Phone: [facility] Work Phone: Start: 09-30-2022 End: 09-30-2022 Patient encounter procedure DO Josh Bunting Work Phone: [facility] [place] Start: 06-19-2022 End: 06-19-2022 Patient encounter procedure DO Josh Bunting Work Phone: [facility]-XRay [facility] Start: 06-05-2022 End: 06-05-2022 ambulatory Alexis Abdi Other [employer] Other Start: 06-05-2022 Telephone encounter Alexis Abdi [facility] Banking Manager Start: 04-16-2022 End: 04-16-2022 ambulatory Mariel Mcgraw Other [employer] Other Start: 04-16-2022 Office outpatient vi sit 25 minutes Kamal Chaban [facility] Start: 01-08-2022 End: 01-08-2022 ambulatory Kamal Chaban Other [employer] Other Start: 01-08-2022 Office outpatient vi sit 25 minutes Kamal Chaban [facility] Start: 12-07-2021 End: 12-07-2021 ambulatory Kamal Chaban Other [employer] Other Start: 12-07-2021 Telephone encounter Kamal Chaban [facility] Start: 11-09-2021 ([facility] C Vac) [facility] Co vid Vaccine Courtney Laminet [facility] Start: 11-09-2021 End: 11-09-2021 ambulatory Courtney Fitt Other [employer] Other Start: 09-06-2021 End: 09-06-2021 ambulatory Kamal Chaban Other [employer] Other Start: 09-06-2021 Office outpatient vi sit [...] for malign ant neoplasm of colon [facility] Start: 11-11-2029 DTaP/Tdap/Td Vaccine s (2 - Td or Tdap) DTaP/Tdap/Td Vaccines (2 - Td or Tdap) [facility] Start: 06-27-2024 Influenza vaccination Influenz a Vaccine (Season Ended) [facility] Start: 04-01-2024 End: 10-01-2024 Enroll patient in spine cervical NO fusion care plan Enroll patient in spine cervical NO fusion care plan Procedures Routine Expected: 04/01/2024, Expires: 10/01/2024 [facility] Work Phone: Comment on above: Expected: 04/01/2024 , Expires: 10/01/2024 Start: 04-01-2024 End: 04-01-2025 XR Cervical spine 4 or 5 Views [facility] Work Phone: Comment on above: Expected: 04/01/2024 (Approximate), Expires: 04/01/2025 Once for 1 Occurrenc es starting 04/01/2024 until 04/01/2024 Start: 01-19-2024 End: 01-19-2024 [facility] Start: 11-24-2023 [facility] Start: 11-11-2023 End: 11-11-2024 MR Cervical spine WO contrast MR cervical spine wo IV contrast Imaging Routine Cervical myelopathy (CMS/HCC) Expected: 11/11/2023, Expires: 11/11/2024 [facility] Work Phone: Comment on above: Expected: 11/11/2023 , Expires: 11/11/2024 Start: 11-11-2023 End: 11-11-2024 X-ray scoliosis 2 View (NON EOS) [facility] Service [facility] Work Phone: Comment on above: Expected: 11/11/2023 , Expires: 11/11/2024 Start: 11-03-2023 [facility] Start: 11-03-2023 [facility] Start: 10-02-2023 Repair of left ingui nal hernia using surgical mesh OR Inguinal Hernia Repair W/Mesh Graft (Left) [facility] Start: 10-02-2023 End: 10-02-2023 [facility] Start: 06-27-2023 COVID-19 Vaccine ( season) COVID-19 Vaccine ( season) [facility] Start: 06-27-2023 Influenza vaccination C [facility] Start: 03-26-2023 End: 05-26-2023 Comprehensive metabolic 2000 panel - Serum or Plasma [facility] Work Phone: Comment on above: Expected: 03/26/2023 , Expires: 05/26/2023 Start: 10-27-2022 DEPRESSION ASSESSMENT DEPRESSION ASS ESSMENT [facility] Start: 01-04-2022 COVID-19 VACCINE (3 - Booster for Dereck series) COVID-19 VACCINE (3 - Booster for Dereck series) [facility] Start: 08-09-2020 Pneumococcal Vaccine : 65+ Years (2 - PCV) Pneumococcal Vaccine: 65+ Years (2 - PCV) [facility] Start: 08-09-2020 Pneumococcal Vaccine : 65+ Years (2 of 2 - PCV) Pneumococcal Vaccine: 65+ Years (2 of 2 - PCV) [facility] Start: 08-09-2020 Pneumococcal Vaccine : Pediatrics (0 to 5 Years) and At-Risk Patients (6 to 64 Years) (2 - PCV) Pneumococcal Vaccine: Pediatrics (0 to 5 Years) and At-Risk Patients (6 to 64 Years) (2 - PCV) [facility] Start: 2018 RSV patient s and/or patients aged 60+ years (1 - 1-dose 60+ series) RSV patients and/or patients aged 60+ years (1 - 1-dose 60+ series) [facility] Start: 2013 PROSTATE CANCER SCREENING DISCUSSION PROSTATE CANCER SCREENING DISCUSSION [facility] Start: 2008 SHINGRIX VACCINE (1 of 2) SHINGRIX VACCINE (1 of 2) [facility] Start: 2008 Zoster Vaccines (1 of 2) Zoste r Vaccines (1 of 2) [facility] Start: 2003 COLOGUARD (FIT-DNA) COLOGUARD (FIT-D NA) [facility] Start: 2003 Colonoscopy COLONOSCOPY [facility] Start: 2003 COLORECTAL CANCER SCREENING COLORECTAL CANCER SCREENING [facility] Start: [address] COLONOGRAPHY [facility] Start: 2003 DIABETES SCREEN DIABETES SCREEN [facility] Start: 2003 FECAL OCCULT BLOOD FECAL OCCULT BLOO D [facility] Start: 2003 SIGMOIDOSCOPY SIGMOIDOSCOPY [facility] Start: 1993 LIPID SCREEN LIPID SCREEN [facility] Start: 1977 Urine microalbumin profile DTAP,TDAP,TD (1 - Tdap) [facility] Start: 1977 Urine screening for protein Diabetes: Urine Protein Screening [facility] Start: 1976 HEPATITIS C SCREENING HEPATITIS C [facility] Start: 1976 Hepatitis C screening Hepatitis C [facility] Start: 1976 HIV SCREENING HIV SCREENING [facility] Start: 1968 Diabetic foot examination Diabetes: Foot Exam [facility] Start: 1968 Glaucoma screening Diabetes: R etinopathy Screening [facility] Start: 1959 MMR Vaccines (1 of 1 - Standard series) MMR Vaccines (1 of 1 - Standard series) [facility] Start: 1958 Annual wellness visit Medicare Initial Physical (IPPE) [facility] Start: 1958 Hemoglobin A1c measurement Diabetes: Hemoglobin A1C [facility] Start: 1958 HIV screening HIV Screening [facility] Start: 1958 Lipid panel Lipid Panel [facility] Start: 1958 Screening for malign ant neoplasm of colon 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 [facility] [place] Methylmalonate [Moles/volume] in Serum or Plasma [facility] Patient Education [facility] Work Phone: Patient referral [facility] Work Phone: [facility] Immunizations Immunization Date Immunization Notes Care Provider Shannan canales 11-09-2021 COVID-19 (Moderna), Age 12+ DO Josh Melvin Work Phone: [facility] 11-09-2021 COVID-19 Moderna Courtney Espino Other [facility] 10-16-2021 influenza, injectabl e, quadrivalent, contains preservative Maryann Rubalcava MD Work Phone: [facility] Work Phone: 10-16-2021 influenza virus vaccine, unspecified formulation Maryann Rubalcava MD Work Phone: [facility] Work Phone: 01-04-2021 COVID-19 (J&J) DO Josh Melvin Work Phone: [facility] 01-04-2021 COVID-19 Vaccine Dereck - Documentation Purposes Only Kamal Chaban Other [facility] 08-18-2020 Seasonal, quadrivalent, recombinant, injectable influenza vaccine, preservative free Maryann Rubalcava MD Work Phone: [facility] 07-27-2020 influenza, seasonal, injectable Maryann Rubalcava MD Work Phone: [facility] 11-11-2019 tetanus toxoid, reduced diphtheria toxoid, and acellular pertussis vaccine, adsorbed Mariel Chatommie Other [facility] Other 08-16-2019 influenza, seasonal, injectable, preservative free Maryann Rubalcava MD Work Phone: [facility] Work Phone: 08-09-2019 influenza, injectabl e, quadrivalent, preservative free Maryann Rubalcava MD Work Phone: [facility] 08-09-2019 pneumococcal polysaccharide vaccine, 23 valcheyanne Rubalcava MD Work Phone: [facility] 08-08-2019 pneumococcal polysaccharide vaccine, 23 valent Maryann Rubalcava MD Work Phone: [facility] Work Phone: 09-08-2018 influenza, injectabl e, quadrivalent, contains preservative Maryann Rubalcava MD Work Phone: [facility] 07-29-2017 influenza, injectable,quadrivalen t, preservative free, pediatric Ulyssesal Shariban Other [facility] Other 10-14-2009 pneumococcal polysaccharide vaccine, 23 valent Maryann Rubalcava MD Work Phone: [facility] Work Phone: NEGATED: Highlighted row has not occurred!07-29-2017 influenza, injectable,quadrivalen t, preservative free, pediatric Mariel Sharitommie Other [facility] Other Payers Date Payer Category Payer Self-pay [id number] 2022 Private Health Insurance 2021 Medicare [id number] [id number] 2021 Medicare [id number]. 1.13.159.2.7.3 .[id number] 2021 Medicare [id number] 2.16.840.1.071427.19 2021 Medicare [id number] 2.16.840.1.637762.19 1960 Unknown [id number] 2.16.840.1.633030.3.579.2.196 1960 Unknown [id number] 2.16.840.1.764501.3.579.2.196 1958 Unknown [id number] 2.16.840.1.329308.3.579.2.196 1958 Unknown [id number] 2.16.840.1.315481.3.579.2.196 1958 Unknown [id number] 2.16.840.1.975525.3.579.2.196 1958 Unknown [id number] 2.16.840.1.397115.3.579.2.196 1958 Unknown [id number] 2.16.840.1.016917.3.579.2.196 1958 Unknown [id number] 2.16.840.1.098090.3.579.2.196 1958 Unknown [id number] 2.16.840.1.258418.3.579.2.196 1958 Unknown [id number] 2.16.840.1.777315.3.579.2.196 1958 Unknown [id number] 2.16.840.1.344745.3.579.2.124 2 1958 Unknown [id number] 2.16.840.1.865153.3.579.2.124 2 1958 Unknown [id number] 2.16.840.1.833613.3.579.2.124 2 1958 Unknown [id number] 2.16.840.1.109693.3.579.2.124 2 1958 Unknown [id number] 2.16.840.1.173392.3.579.2.124 5 1958 Unknown [id number] 2.16.840.1.989060.3.579.2.124 5 1958 Unknown [id number] 2.16.840.1.419803.3.579.2.125 9 1958 Unknown [id number] 2.16.840.1.499789.3.579.2.125 9 1958 Unknown [id number] 2.16.840.1.018918.3.579.2.125 9 1958 Unknown [id number] 2.16.840.1.305919.3.579.2.125 9 1958 Unknown [id number] 2.16.840.1.130874.3.579.2.125 9 1958 Unknown [id number] 2.16.840.1.096335.3.579.2.125 9 1958 Unknown [id number] 2.16.840.1.564516.3.579.2.125 9 1958 Unknown [id number] 2.16.840.1.490810.3.579.2.125 9 1958 Unknown [id number] 2.16.840.1.647700.3.579.2.125 9 1958 Unknown [id number] 2.16.840.1.702083.3.579.2.125 9 1958 Unknown [id number] 2.16.840.1.625183.3.579.2.125 9 1958 Unknown [id number] 2.16.840.1.563717.3.579.2.125 9 1958 Unknown [id number] 2.16.840.1.706014.3.579.2.124 7 1958 Unknown [id number] 2.16.840.1.538282.3.579.2.124 7 1958 Unknown [id number] 2.16.840.1.982185.3.579.2.124 7 Medicare Medicare [id number] Medicare MMO MCR Adv PF [id number] Medicare [employer] MCR [id number] 501 [id number] Unknown [id number] 2.16.840.1.772816.3.579.2.531 Unknown [id number] 2.16.840.1.082854.3.579.2.531 Unknown [id number] 2.16.840.1.383881.3.579.2.531 Unknown [id number] 2.16.840.1.714354.3.579.2.531 Unknown [id number] 2.16.840.1.753725.3.579.2.531 Unknown [id number] 2.16.840.1.946657.3.579.2.531 Unknown [id number] 2.16.840.1.742772.3.579.2.531 Unknown [id number] 2.16.840.1.151703.3.579.2.531 Unknown [id number] 2.16.840.1.857403.3.579.2.531 Unknown [id number] 2.16.840.1.218327.3.579.2.531 Unknown [id number] 2.16.840.1.798037.3.579.2.531 Unknown [id number] 2.16.840.1.223530.3.579.2.531 Unknown [id number] 2.16.840.1.638491.3.579.2.531 Unknown [id number] 2.16.840.1.699642.3.579.2.531 Worker's Compensation [employer] [facility] [id number] Social History Date Type Detail Facility Start: 11-11-2023 End: 04-01-2024 Sex Assigned At [facility] Other Start: 05-22-2021 End: 05-22-2021 Tobacco smoking status WYIS Smoker (finding) [facility] Start: 1960 Sex Assigned At Male F [facility] Start: 03-26-2023 End: 07-06-2024 Tobacco smoking status WYIS Ex-smoker [facility] History of tobacco use Cigarette Smoker [facility] Start: 03-26-2023 End: 11-11-2023 Tobacco use and exposure Smokeless tobacco non-user [facility] Start: 03-26-2023 Alcohol intake Current drinke r of alcohol (finding) [facility] Start: 03-26-2023 [facility] Start: 1960 Sex Assigned At Not on file [facility] Start: 11-11-2023 Tobacco smoking status WYIS Never smoked tobacco [facility] Work Phone: Start: 11-01-2023 End: 04-01-2024 Exposure to SARS-CoV-2 (event) Not sure [facility] Start: 11-11-2023 End: 04-01-2024 History of Social function [facility] Work Phone: Medical Equipment Procedure Code Equipment Code Equipment Origin al Text Equipment Identifier Dates Repair, hernia, ventral, with mesh Abdominal hernia surgical mesh, composite-polymer [id number] FDA Start: 01-19-2024 Repair, hernia, inguinal, with mesh Abdominal hernia surgical mesh, synthetic polymer, non-bioabsorbable [id number] FDA Start: 11-03-2023 [id number] Start: 08-14-2023 Goals Date Patient Goal Desired Activity /State Personal health goal Clinical Notes 04-17-2021 to 04-01-2024 Maryann Rubalcava MD - 04/01/2024 9:00 AM Carmen Rubalcava MD - 11/11/2023 10:00 AM EST Note Date & Type Note Facility 04-01-2024 History of Present illness Narrative It was a pleasure to see Mr. Meier at the [facility] at [facility]. Patient is a 62-year-old male [...] groups. There is evident evidence of a cook cold meat weakness bilaterally which is about 80% of [...] L2-L3 and L1-L2. Even in the supine engineering scientist CT for patient has a flatback deformity. [...] the further treatment plan. Maryann Rubalcava MD, [facility] Asl Interpreter of Neurological Surgery [facility] [employer] Attending Surgeon Director - Minimally Invasive Spine Surgery [place], [place] ---Some of this note was completed using [employer] voice recognition technology and sometimes the software misinterprets words. This may include unintended errors with respect to translation of words, typographical errors or grammar errors which may not have been identified prior to finalization of the chart note. Please take this into account when reading this note--- documented in this encounter [facility] Work Phone: 11-11-2023 History of Present illness Narrative It was a pleasure to see Mr. Meier at the [facility] at [facility]. Patient is a 62-year-old male [...] L2-L3 and L1-L2. Even in the supine engineering scientist CT for patient has a flatback deformity. [...] All questions were answered. Maryann Rubalcava MD, [facility] Asl Interpreter of Neurological Surgery [facility] [employer] Attending Surgeon Director - Minimally Invasive Spine Surgery [place], [place] Some of this note was completed using [employer] voice recognition technology and sometimes the software misinterprets words. This may include unintended errors with respect to translation of words, typographical errors or grammar errors which may not have been identified prior to finalization of the chart note. Please take this into account when reading this note documented in this encounter [facility] Work Phone: 10-14-2023 Evaluation note Encounter [...] region with neurogenic claudication (ICD-10 - M48.062) [facility] Other 12-05-2023 NoteProcedure Performed by: Savanna Mcclain M.D. Procedure: Placement of Modanisa Impulse Generator Battery under fluoroscopic guidance *Battery [...] signed by Savanna Mcclain MD 09/30/23 13:12 [facility] 09-30-2023 NoteHistory of Present Illness [...] signed by Savanna Mcclain MD 09/30/23 13:10 [facility] 09-16-2023 Evaluation note* Encounter Date [...] weeks. Aug, Lumbar radiculopathy (ICD-10 - M54.16) [facility] Other 08-17-2023 Evaluation note* Encounter Date Diagnosis Assessment Notes Treatment Notes Treatment Clinical Notes May, Gastroesophageal ref lux disease, unspecified whether esophagitis present (ICD-10 - K21.9) [facility] Other 05-31-2023 NoteHNO ID: [id number] Author: Donny Peralta APRN.CULINARY DIRECTOR Service: ? Author Type: Nurse Practitioner Type: [...] time. Donny Peralta APRN.ALEX CC: Josh Melvin [facility]05-31-2023 History of Present illness Narrative* Donny Peralta APRN.CULINARY DIRECTOR - 03/26/2023 11:14 AM EDT Mr. Meier [...] CC: [facility] Mel[facility]* Encounter Date Diagnosis Assessment Notes Treatment Notes Treatment Clinical Notes Mar, Obstructive sleep ap dee (ICD-10 - G47.33) Please get a compliance report now and before next visit Mar, Gastroesophageal ref lux disease, unspecified whether esophagitis present (ICD-10 - K21.9) Mar, Lung nodule (ICD-10 - R91.1) [facility] Other 03-15-2022 Evaluation note* Encounter Date Diagnosis [...] be after his CT in 1 year [facility] Other 01-14-2022 Evaluation note* Encounter Date Diagnosis Assessment Notes Treatment Notes Treatment Clinical Notes Oct, Encounter for immunization (ICD-10 - Z23) Patient presents for COVID-19 vaccination BOOSTER. Pre-screening form answers evaluated with patient. Patient denies current illness or allergic reaction to component of COVID-19 vaccine. Patient provided with current copy of EUA. [facility] Other 09-27-2021 Evaluation note* Encounter Date Diagnosis Assessment Notes Treatment Notes Treatment Clinical Notes Jun, Lung nodule (ICD-10 - R91.1) Jun, Chronic cough (ICD-1 0 - R05) Jun, Obstructive sleep ap dee (ICD-10 - G47.33) Jun, Gastroesophageal ref lux disease, unspecified whether esophagitis present (ICD-10 - K21.9) [facility] Other 06-24-2021 NotePatient: KOKO MEIER Age: 60 [...] mg, 1 tab(s), Oral, BID, 0 Refill(s) [facility]Result Comment: Electronically Signed By: Kwame Yang DO\.br\Date and Time Signed: 04/19/21 12:56 EDT 04-17-2021 [id number]:127Fishdaphney [facility] noteNo InformationNort [employer] Other Evaluation noteNort [employer] Pay[employer] Other Evaluation noteNo assessment information available [facility] Work Phone: Evaluation note* Diagnosis Laryngeal candidiasis- Primary Other candidiasis of other specified sites Glossitis Oral candidiasis Candidiasis of mouth Hoarseness of voice Dysphonia History of alcohol abuse Nondependent alcohol abuse, in remission [facility] Cervical myelopathy (CMS/HCC)- Primary Cervical spondylosis with myelopathy Sagittal plane imbalance Other curvatures of spine associated with other conditions 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 Lumbar stenosis with neurogenic claudication documented in this encounter [facility] Work Phone: Evaluation note* Diagnosis Onset Date Resolution Status Cervical stenosis of spine a cute History of fusion of cervical spine acute History of lumbar fusion acu te Neurogenic claudication due to lumbar spinal stenosis acute [facility] Work Phone: Evaluation note* Diagnosis Cervical spinal 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 segment disease 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 procedure- Primary Cervical myelopathy (Multi) Cervical spondylosis with myelopathy documented in this encounter [facility] Work Phone: Evaluation note* Diagnosis Cervical myelopathy (Multi) Cervical spondylosis with myelopathy documented in this encounter [facility] Work Phone: Evaluation note* Diagnosis Onset Date Resolution Status GERD (gastroesophageal reflux disease) acute Obstructive sleep apnea acut e [facility] Work Phone: History general Narrative - Reported* [...] finger 10/2019 Hospitalization History see sx history [facility] Other History general Narrative - ReportedNort Touch Payments Other History general Narrative - Reported* Type [...] finger 10/2019 Hospitalization History see sx history [place] [employer] Other Hospital Discharge instructions Additional Instructions Please call Dr. Becker' office to reschedule your surgery.[facility] Work Phone: Hospital Discharge instructions Additional Instructions 1. No driving if taking narcotic pain medication. 2. No lifting more than 20 pounds for 3 weeks. 3. May shower.[facility] Work Phone: Hospital Discharge instructions Additional Instructions 1. No driving if taking narcotic pain medication. 2. No lifting more than 20 pounds for 4 weeks. 3. May shower. 4. Can use abdominal binder as needed for comfort.[facility] Work Phone: Progress note Author Yogesh Becker [facility] October 02, 2023 9:46am Note Date/Time October 02, 2023 9 :46am [facility] [address] [place] [address] Progress Note Signed Patient: Koko Meier MR#: [id number] : 1960 Acct:[id number] Age/Sex: 62 / M Adm Date: 3 Loc: DE Room: Type: [facility] Attending Dr: Yogesh Becker MD Copies to: ~ Date of Service: 10/02/2023 Progress Narrative Note PROGRESS NOTE Progress Note: Patient's tox screen today is positive for cocaine. Surgery will be canceled. Patient is told to call the office this afternoon to reschedule the surgery. Documented By: Yogesh Becker MD 10/02/23 0945 Signed By: <Electronically signed by MD Yogesh Becker> 10/02/23 0946 [facility] Work Phone: Summary Purpose Family [...] sibling Diabetes mellitus Unknown Heart disease Unknown Relationship Condition Age at Onset Recorded Date/T mckenna mother Diabetes mellitus Unknown Unknown brother Diabetes mellitus Unknown History of stroke Unknown Heart disease Unknown father Malignant neoplasm of urinary bladder Unk nown Hypertension Unknown Advance Directives No Advanced Directives Records [...] Neurogenic claudication due to lumbar spinal stenosis Chief Complaint HERIBERTO: 1 yr f/u AMINA, GE RD, Esophageal Spasm Reason for Visit GERD (gastroesophage al reflux disease) Obstructive sleep apnea Reason for Referral Specialty Diagnoses / Procedures Referred By Bala t Referred To Contact Radiology Diagnoses Cervical myelopathy (CMS/[facility]) Procedures MR cervical spine [place] [address] [address] Department [place] [address] Referral ID Status Reason Start Date Expiration Date Visits Requested Visits Authorized Pending Review Perform Procedure 11/11/2023 11/10/2024 1 1 Specialty Diagnoses / Procedures Referred By Contac t Referred To Contact Radiology Diagnoses Sagittal plane imbalance Procedures X-ray scoliosis 2 View (NON EOS) [place] [address] [address] Department [place] [address] Referral ID Status Reason Start Date Expiration Date Visits Requested Visits Authorized Authorized Perform Procedure 11/11/2023 11/10/2024 1 1 Reason surgical consult Diagnosis 1 Lumbar myelopathy (G 95.9) Referral Organization [facility] Referring Provider First Name Karime Referring Provider Last Name Nguyen Referring Provider Specialty Nurse Pract itioner Referred Organization 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) Referral Organization [facility] urosurgery Referring Provider First Name Karime Referring Provider Last Name Marleni Referring Provider Specialty Nurse Pract itioner Referred Organization [facility] Referred Address [address],[place], [place],[address] Referred Provider Specialty Physical The rapist Referral Priority Routine Additional Source Comments (unrecognized sect ion and content) No Status Records FoundNo Status Records FoundNo Status Records FoundNo Status Records FoundNo Status Records FoundNo Status Records FoundNo Status Records FoundNo Status Records FoundNo Status Records Found INFORMATION SOURCE (unrecogn ized section and content) DATE CREATED AUTHOR 04/27/2021 [facility] DATE CREATED AUTHOR AUTHOR'S ORGANIZ ATION 04/15/2023 [facility] DATE CREATED AUTHOR AUTHOR'S ORGANIZ ATION 04/14/2024 [facility] DATE CREATED AUTHOR AUTHOR'S ORGANIZ ATION 04/29/2024 [facility] DATE CREATED AUTHOR AUTHOR'S ORGANIZ ATION 05/19/2024 [facility] DATE CREATED AUTHOR AUTHOR'S ORGANIZ ATION 05/29/2024 [facility] DATE CREATED AUTHOR AUTHOR'S ORGANIZ ATION 07/10/2024 [facility] DATE CREATED AUTHOR AUTHOR'S ORGANIZ ATION 07/11/[address] [facility] EPIC DATE CREATED AUTHOR AUTHOR'S ORGANIZ ATION 07/15/2024 [facility] REASON FOR VISIT (unrecogniz ed section and content) Reason Comments Mouth lesion on left side Specialty Diagnoses / Procedures Referred By Contact Referred To Contact Ent - Otolaryngology / ENT-OTOLARYNGOLOGY Diagnoses Mouth Lesion on Left side of jaw Procedures NEW [facility] PATIENT Javi Melvinana Villaseñor DO [address] [place] [address] Donny Peralta, FIRE MANAGEMENT OFFICER.CULINARY DIRECTOR [address] [place] [address] Referral ID Status Reason Start Date Expiration Date V isits Requested Visits Authorized [id number] Authorized 03/25/2023 10/26/2023 99 99 Reason Comments Neck Pain Back Pain Reason Comments Back Pain Specialty Diagnoses / Procedures Referred By Contac t Referred To Contact Radiology Diagnoses Cervical myelopathy (Multi) Procedures XR cervical spine complete 4-[place] [address] [facility] Department [place] [address] Referral ID Status Reason Start Date Expiration Date Visits Requested Visits Authorized [id number] Authorized Perform Procedure 04/01/2024 04/01/2025 1 1 Care Teams (unrecognized sec tion and content) Team Status: Inactive Member Role Status Dates Josh Melvin , DO Primary Care Provider, Tino peter Active Team Status: Active Member Role Status Dates Josh Velascoting , DO Primary Care Provider Active [...] Primary Care Provider Active Nery Casanova , REGULATORY LEADER-BC Emergency Provider Active Team Status: Inactive Member Role Status Dates Jsoh Melvin , DO Primary Care Provider Active Savanna Mcclain MD Attending Provider Active Team Status: Inactive Member Role Status Dates Joshana Velascoting , DO Primary Care Provider Active Yogesh Becker MD Attending Provider Active Team Status: Inactive Member Role Status Dates SHARRON Colindres Attending Provider Active Start: September 16, 2023 End: September 16, 2023 Team Status: Inactive Member Role Status Dates Josh Melvin DO Primary Care Provider Active Start: September [...] March 31, 2024 End: March 31, 2024 Hr Leader Relationship Specialty Start Date End Date RodjayleenJosh DO [address] [place] [address] PCP - General Family Medicine 04/01/24 Hr Leader Relationship Specialty Start Date End Date Josh Melvin DO [address] [place] [address] PCP - General Family Medicine 04/01/24 Team Status: Inactive Member Role Status Dates Josh Melvin DO Primary Care Provider Active Start: July 06, 2024 End: July 06, [address] [facility] Attending Provider Active Start: July 06, 2024 End: July 06, 2024 Goals (unrecognized section and content) Goals may be documented in a n alternate section Source Comments (unrecognize d section and content) In the event this informatio n is protected by the [facility] Confidentiality of Alcohol and Drug Abuse Patient Records regulations: The Federal rules restrict any use of the information to criminally investigate or prosecute any alcohol or drug abuse patient.[facility] FOR RECORDS PERTAINING TO PATIENTS WHO ARE [...] BE BASED ON THE PRIMARY CLINICAL RECORDS. [facility] [employer] [facility]. provides no warranty or guarantee of the accuracy or completeness of information in this document.
[2024-07-26 08:33] VITALS: BP 157/79; PULSE 98; TEMP 36.6; O2SAT 94
[2024-07-26 08:44] LABS: Glucometer 186 mg/dL (74-106)
[2024-07-26 09:22] VITALS: BP 138/74; PULSE 82; O2SAT 89
[2024-07-26 09:23] VITALS: BP 185/86; PULSE 78; O2SAT 89
[2024-07-26] MEDS: BUPIVACAINE HCL 0.25% PF 25 MG/10 ML VIAL 2 ML INJ (09:26)
[2024-07-26] MEDS: 0.9 % SODIUM CHLORIDE 10 ML SYRINGE - SALINE FLUSH 7 ML INJ (09:26)
[2024-07-26] MEDS: IOHEXOL 240 MG/ML - 10 ML VIAL 24 MG IV (09:27)
[2024-07-26] MEDS: LIDOCAINE HCL 2% 400 MG/20 ML MDV INJ (09:27)
[2024-07-26] MEDS: TRIAMCINOLONE ACETONIDE 40 MG/ML VIAL 80 MG INJ (09:27)
--- NOTE | 2024-07-26 09:34 | P.ON_ITS ---
Date of procedure: 07/26/24 Pre-op diagnosis: Pain due to lumbar stenosis with neurogenic claudication Post-op diagnosis: same as pre-op Procedure: Procedure: Caudal epidural steroid injection Medications: Bupivacaine 0.25% 4cc, normal saline 0.9% 4cc, kenalog 80mg After informed consent was obtained, the patient was brought to the medical procedure unit and placed in the prone position.? A timeout was completed identifying correct patient, procedure, site, positioning, and special equipment.? The skin overlying the area was prepped and draped in standard sterile fashion using alcohol, after which a 25-gauge needle was used to raise a skin wheal over the sacral hiatus identified under fluoroscopy.? Subsequently a 17-gauge Tuohy needle was inserted through anesthetized area and directed toward the sacral hiatus under fluoroscopic guidance.? After piercing the sacrococc ygeal membrane, needle tip placement was confirmed by injection of Omnipaque dye.? Then 10 mL of steroid solution was instilled.? Postoperatively, needles were removed and the catheter was removed with the tip intact.? The patient was transferred to the recovery area in stable condition to be discharged after meeting criteria. Anesthesia: Local Surgeon: Savanna Mcclain Pathology: none sent Condition: stable Disposition: no change
== END 2024-07-26 09:29 | disposition home or self-care (01) ==
LOC: SURGOUT 08:16
PROVIDERS: PCP Family Medicine; Visit Provider Anesthesiology
DX: M48.062 Spinal stenosis, lumbar region with neurogenic claudication (principal)
CPT/HCPCS: 36415; 62323; 82948; J0665; J3301; Q9966

== ENCOUNTER 2024-08-05 10:01 | Outpatient (OUT) | payer MEDICARE, SELFPAY ==
--- OUTSIDE RECORDS SUMMARY | 2024-08-05 10:06 | XMS_ITS | CCD ---
Author Organization [facility] Inform ion Partnership [facility] Care Team Providers Care Motorcycle Sales Associate Name Role Phone Mariel Mcgraw Unavailable Courtney Espino Unavailable Bunting, DO Josh Primary Care Provider [phone] Flip Diamond Attending Provider Alexis Abdi Unavailable Bunting, DO Josh Primary Care Provider Bunting, DO Johs Attending Provider MD Yunier Ariza Attending Provider Bunting, DO Josh Primary Care Provider MD Mariel Mcgraw Attending Provider Bunting, DO Josh Primary Care Provider [phone] MD Mariel Mcgraw Attending Provider MD Errol Humphrey Attending Provider Unavailable Primary Care Provider Unavailabl e DONNY PERALTA Attending Unavailable BUNTING, JOSH RAY Referring Unavailable DONNY PERALTA Referring Unavailable Bunting, DO Jsoh Primary Care Provider [phone] Bunting, DO Josh Attending Provider Bunting, DO Josh Primary Care Provider [phone] PORTER CasanovaP- Nery Hankins Emergency Provider Bunting, DO Josh Attending Provider [phone] MD Savanna Mcclain Attending Provider Bunting, DO Josh Primary Care Provider [phone] Edilberto, ROBOTICS SYSTEMS ENGINEER- Nery E Emergency Provider [phone] Bunting, DO Josh Attending Provider MD Savanna [...] Attending Provider Bunting, DO Josh Attending Provider [phone] MD Oliver Kerr Referring Provider MD Oliver Kerr Attending Provider MD Maryann Rubalcava Attending Provider Bunting, DO Josh Primary Care Provider MD Yogesh Becker Attending Provider [phone] MD Maryann Rubalcava Attending Provider Bunting DO, [...] Josh Attending Unavailable Bunting, Josh Admitting Unavailable Jensen Oliver Referring Unavailable Bunting, Josh Attending Unavailable Bunting, Josh Admitting Unavailable Bunting, Josh Primary Care Unavailable Bunting, Josh Primary Care Unavailable Jensen, Oliver Attending Unavailable Jensen Oliver Admitting Unavailable Bunting, Josh Primary Care Unavailable Kasliwal Maryann K Admitting Unavailable Kasliwal, Maryann K Attending Unavailable BECKER V, YOGESH Attending Unavailable BUNTING, JOSH R Referring Unavailable BECKER V, YOGESH Attending Unavailable PETZNICKFEROZ Attending Unavailable BUNTING, JOSH R Referring Unavailable BECKER V, YOGESH Attending Unavailable BECKER V, YOGESH Attending Unavailable DEJUANIMTIAZ Attending Unavailable KARIME NGUYEN Referring Unavailable PETZNICKFEROZ Attending Unavailable BRYCE URENA Attending Unavailable BUNTING, JOSH R Referring Unavailable DAMARI TOWNSEND Attending Unavailable PETZNICKFEROZ Attending Unavailable PETZNICKFEROZ Attending Unavailable BECKER V, YOGESH Attending Unavailable KASLIWAL, MARYANN K Attending Unavailable BUNTING, JOSH RAY Primary Care Unavailable KASLIWAL, MARYANN K Referring Unavailable BUNTING, JOSH RAY Primary Care Unavailable KASLIWAL, MARYANN K Attending Unavailable BUNTING, JOSH RAY Primary Care Unavailable Giedraitis , Andrius Darden Attending Unavailable Giedraitis , Andrius Vaubrey Attending Unavailable Giedraitis , Andrius Morrisytjim Attending Unavailable Giedraitis , Andrius Adelso Attending Unavailable Giedraitis , Andajay Darden Attending Unavailable Giedraitis , Andrius Darden Attending Unavailable Gijustoitis , Andrius Darden Attending Unavailable Gieditis , Andrius Darden Attending Unavailable Gieditis , Andrius Darden Attending Unavailable Gijustoitis , Andrius Darden Attending Unavailable Giedbautista MATUTE, Andajay Darden Attending Unavailable BUNTING, JOSH RAY Primary Care [...] Care Unavailable KASLIWAL, MARYANN K Referring Unavailable Medications Current Medications Medication Drug [...] Comment on above: take 1 capsule by [facility] twice a day Oral for [...] (Continuous Positive Airway Pressure) (1 source) Start: Cpap (Continuous Positive Airway Pressure) Active 0 .ROUTE July 06, 2024 12:00am As directed [facility] cyclobenzaprine hydrochloride 10 mg oral tablet (17 sources) Muscle Relaxant Start: 023 take 10 mg by mouth three times daily Cyclobenzaprine Active 10 MG PO Three times daily September 23, 2023 1:00am take 1 tablet by [facility] every twenty-four hours Cyclobenzaprine HCl 10 [...] Active Start: 04-20-2019 take 1 capsule by [facility] twice daily Duloxetine (Cymbalta) 60 mg Capsule,Delayed Release(Dr/Ec) Active 60 MG PO Twice daily April 20, 2019 12:00am Start: 04-20-2019 Duloxetine (Cy mbalta) 60 mg Capsule,Delayed Release(Dr/Ec) Active 30 MG PO Twice daily April 20, 2019 12:00am take 1 capsule by mo [facility] every twenty-four hours DULoxetine HCl 60 [...] 12:00am FreeStyle René reader (FreeStyle René [facility] [place]) misc (3 sources) Start: 07-25-2023 End: 07-24-2024 FreeStyle René reader (FreeStyle René 2 [place]) misc 1 each by Does not apply route every 14 (fourteen) days. 07/25/2023 07/24/2024 Active Start: 07-25-2023 End: 07-24-2024 FreeStyle René reader (Free Style René 2 [place]) misc 1 each by Does not apply [...] on above: Take 1 capsule by mo ut. hydroCHLOROthiazide 12.5 mg / lisinopril 20 mg oral tablet (20 sources) Thiazide Diuretic, Angiotensin Converting Enzyme Inhibitor Start: 09-23-20 take 1 tablet by mouth once daily in the morning Lisinopril-[place] chlorothiazide Active 1 TAB PO Every morning [...] Start: 01-30-2023 take 1 capsule by mo [facility] every six hours as needed hydrOXYzine pamoate [...] hours Oxycodone-Acetaminophen Discontinued 1 TAB PO Q6H 12 July [...] sources) Long-term current use of insulin; Translations: [skilled nursing (current) use of insulin] Episodic Other connective [...] Anion gap [Moles/Vol] 11 mmol/L Normal 10-20 [facility] Comment on above: Performed By: #### 5 8077-9 #### JOSHUA CRESPO ([id number]) [facility] ([facility]) [address] [place] [address] Calcium [Mass/Vol] 8.8 mg/dL Normal 8.6-10.3 [facility] Comment on above: Performed By: #### 5 8077-9 #### JOSHUA CRESPO (66191) [facility] ([facility]) [address] [place] [address] Chloride [Moles/Vol] 95 mmol/L Low 98-107 [facility] Comment on above: Performed By: #### 5 8077-9 #### JOSHUA CRESPO (09154) [facility] ([facility]) [address] [place] [address] CO2 [Moles/Vol] 32 mmol/L Normal 21-[address] [facility] Comment on above: Performed By: #### 5 8077-9 #### JOSHUA CRESPO ([id number]) [facility] ([facility]) [address] [place] [address] Creatinine [Mass/Vol] 0.76 mg/dL Normal 0.50-1.30 [facility] Comment on above: Performed By: #### 5 8077-9 #### JOSHUA CRESPO (54552) [facility] ([facility]) [address] [place] [address] GFR/1.73 sq M.predicted MDRD (S/P/Bld) [Vol rate/Area] mL/min/{1.73_m2} Normal >60 [facility] Comment on above: Result Comment: Calc ulations of estimated GFR are performed using the 2020 CKD-EPI Study Refit equation without the race variable for the IDMS-Traceable creatinine methods. https://jasn.asnjournals.org/content//ASN.317361 8362 Performed By: #### 5 8077-9 #### JOSHUA CRESPO ([id number]) [facility] ([facility]) [address] [place] [address] Glucose [Mass/Vol] 229 mg/dL High 74-99 [facility] Comment on above: Performed By: #### 5 8077-9 #### JOSHUA CRESPO ([id number]) [facility] ([facility]) [address] [place] [address] Potassium [Moles/Vol] 4.0 mmol/L Normal 3.5-5.3 [facility] Comment on above: Performed By: #### 5 8077-9 #### JOSHUA CRESPO (54236) [facility] ([facility]) [address] [place] [address] Sodium [Moles/Vol] 134 mmol/L Low 136-145 [facility] Comment on above: Performed By: #### 5 8077-9 #### JOSHUA CRESPO ([id number]) [facility] ([facility]) [address] [place] [id number] Urea nitrogen [Mass/Vol] 24 mg/dL High 6-23 [facility] Comment on above: Performed By: #### 5 8077-9 #### JOSHUA CRESPO ([id number]) [facility] ([facility]) [address] [place] [id number] CBC panel Auto (Bld)on 05-25 Erythrocyte distribution width (RBC) [Ratio] 13.6 % Normal 11.5-14.5 [facility] Comment on above: Performed By: #### 5 8077-9 #### JOSHUA CRESPO (48330) [facility] ([facility]) [address] [place] [address] Hematocrit (Bld) [Volume fraction] 46.0 % Normal 41.0-52.0 [facility] Comment on above: Performed By: #### 5 8077-9 #### JOSHUA CRESPO (55675) [facility] ([facility]) [address] [place] [address] Hemoglobin (Bld) [Mass/Vol] 15.5 g/dL Normal 13.5-17.5 [facility] Comment on above: Performed By: #### 5 8077-9 #### JOSHUA CRESPO (68693) [facility] ([facility]) [address] [place] [address] MCH (RBC) [Entitic mass] 32.3 pg Normal 26.0-34.0 [facility] Comment on above: Performed By: #### 5 8077-9 #### JOSHUA CRESPO ([id number]) [facility] ([facility]) [address] [place] [address] MCHC (RBC) [Mass/Vol] 33.7 g/dL Normal 32.0-36.0 [facility] Comment on above: Performed By: #### 5 8077-9 #### JOSHUA CRESPO ([id number]) [facility] ([facility]) [address] [place] [address] MCV (RBC) [Entitic vol] 96 fL Normal 80-100 [facility] Comment on above: Performed By: #### 5 8077-9 #### JOSHUA CRESPO (09806) [facility] ([facility]) [address] [place] [address] Nucleated RBC/100 WBC (Bld) [Ratio] 0.0 /100 WBCs Normal 0.0-0.0 [facility] Comment on above: Performed By: #### 5 8077-9 #### JOSHUA CRESPO (68443) [facility] ([facility]) [address] [place] [address] Platelets (Bld) [#/Vol] 197 x10*3/uL Normal 150-450 [facility] Comment on above: Performed By: #### 5 8077-9 #### JOSHUA CRESPO (50242) [facility] ([facility]) [address] [place] [address] RBC (Bld) [#/Vol] 4.80 x10*6/uL Normal 4.50-5.90 [facility] Comment on above: Performed By: #### 5 8077-9 #### JOSHUA CRESPO (51033) [facility] ([facility]) [address] [place] [address] WBC (Bld) [#/Vol] 10.7 x10*3/uL Normal 4.4-11.3 [facility] Comment on above: Performed By: #### 5 8077-9 #### JOSHUA CRESPO ([id number]) [facility] ([facility]) [address] [place] [address] Glucose Test strip manual (B ld) [Mass/Vol]on 05-25-2024 Glucose [Mass/Vol] 202 mg/dL High [address] Comment on above: Performed By: #### 5 8077-9 #### JOSHUA CRESPO (23041) [facility] ([facility]) [address] [place] [address] FL LESS THAN 1 HOURon 2023 FL LESS THAN 1 HOUR These images are not reportable by radiology and will not be interpreted by Radiologists. [facility] Glucose Test strip manual (B ld) [Mass/Vol]on 05-24-2024 Glucose [Mass/Vol] 285 mg/dL High [address] [place] [address] Comment on above: Performed By: #### 2 341-6 #### JOSHUA CRESPO (90363) [facility] ([facility]) [address] [place] [address] Glucose [Mass/Vol] 312 mg/dL High [address] [place] [address] Comment on above: Performed By: #### 2 341-6 #### JOSHUA CRESPO (92620) [facility] ([facility]) [address] [place] [address] Glucose [Mass/Vol] 306 mg/dL High [address] [place] [address] Comment on above: Performed By: #### 2 341-6 #### JOSHUA CRESPO (19667) [facility] ([facility]) [address] [place] [address] Glucose [Mass/Vol] 206 mg/dL High [address] [place] [address] Comment on above: Performed By: #### 2 341-6 #### JOSHUA CRESPO (67914) [facility] ([facility]) [address] [place] [address] Glucose [Mass/Vol] 130 mg/dL High 74-99 [facility] Comment on above: Performed By: #### 2 341-6 #### JOSHUA CRESPO (59373) [facility] ([facility]) [address] [place] [address] VERAB/VERIFY ABORHon 024 ABO group Nom (Bld) O Normal [facility] Comment on above: Order Comment: Thi s is for confirming/verifying history of ABORh on file for transfusion of blood products. If this is not for transfusion, please order an ABO/RH [[id number]]. If you have any questions or unsure what to order, please call the blood bank. Performed By: #### V ERAB #### JOSHUA CRESPO ([id number]) [facility] [address] [place] [address] [place] D Ag Ql (Bld) Positive [facility] Comment on above: Order Comment: Thi s is for confirming/verifying history of ABORh on file for transfusion of blood products. If this is not for transfusion, please order an ABO/RH [[id number]]. If you have any questions or unsure what to order, please call the blood bank. Performed By: #### V ERAB #### JOSHUA CRESPO (10286) [facility]) [address] [place] [address] [place] Basic metabolic 2000 panelon 05-17-2024 Anion gap [Moles/Vol] 14 mmol/L Normal 10-20 [facility] Comment on above: Performed By: #### 2 4321-2 #### JOSHUA CRESPO (89441) [facility] ([facility]) [address] [place], [place] [address] Calcium [Mass/Vol] 9.0 mg/dL Normal 8.6-10.3 [facility] Comment on above: Performed By: #### 2 4321-2 #### JOSHUA CRESPO (45631) [facility] ([facility]) [address] [place] [address] Chloride [Moles/Vol] 99 mmol/L Normal 98-107 [facility] Comment on above: Performed By: #### 2 4321-2 #### JOSHUA CRESPO (39022) [facility] ([facility]) [address] [place] [address] CO2 [Moles/Vol] 31 mmol/L Normal 21-32 [facility] Comment on above: Performed By: #### 2 4321-2 #### JOSHUA CRESPO (87162) [facility] ([facility]) [address] [place] [address] Creatinine [Mass/Vol] 0.70 mg/dL Normal 0.50-1.30 [facility] Comment on above: Performed By: #### 2 4321-2 #### JOSHUA CRESPO ([id number]) [facility] ([facility]) [address] [place] [address] GFR/1.73 sq M.predicted MDRD (S/P/Bld) [Vol rate/Area] mL/min/{1.73_m2} Normal >60 [facility] Comment on above: Result Comment: Calc ulations of estimated GFR are performed using the 2020 CKD-EPI Study Refit equation without the race variable for the IDMS-Traceable creatinine methods. https://jasn.asnjournals.org/content//ASN.636385 2437 Performed By: #### 2 4321-2 #### JOSHUA CRESPO (10330) [facility] ([facility]) [address] [place] [address] Glucose [Mass/Vol] 158 mg/dL High 74-99 [facility] Comment on above: Performed By: #### 2 4321-2 #### JOSHUA CRESPO (62350) [facility] ([facility]) [address] [place] [address] Potassium [Moles/Vol] 4.5 mmol/L Normal 3.5-5.3 [facility] Comment on above: Performed By: #### 2 4321-2 #### JOSHUA CRESPO (16888) [facility] ([facility]) [address] [place] [address] Sodium [Moles/Vol] 139 mmol/L Normal 136-145 [facility] Comment on above: Performed By: #### 2 4321-2 #### JOSHUA CRESPO (42058) [facility] ([facility]) [address] [place] [address] Urea nitrogen [Mass/Vol] 17 mg/dL Normal 6-23 [facility] Comment on above: Performed By: #### 2 4320-2 #### JOSHUA CRESPO (48497) [facility] ([facility]) [address] [place] [address] Blood type and Indirect anti body screen panel (Bld)on 05-17-2024 ABO group Nom (Bld) O Normal [facility] Comment on above: Performed By: #### 3 4532-2 #### JOSHUA CRESPO (53006) [facility] [address] [place] [address] Blood group antibody screen Ql Negative [facility] Comment on above: Performed By: #### 3 4532-2 #### JOSHUA CRESPO (23969) [facility] [address] [place] [address] [place] D Ag Ql (Bld) Positive [facility] Comment on above: Performed By: #### 3 4532-2 #### JOSHUA CRESPO (24323) [facility]) [address] [place] [address] [place] CBC W Auto Differential pane l (Bld)on 05-17-2024 Basophils (Bld) [#/Vol] 0.04 x10*3/uL Normal 0.00-0.10 [facility] Comment on above: Performed By: #### 5 7021-8 #### JOSHUA CRESPO (60671) [facility] ([facility]) [address] [place] [address] Basophils/100 WBC (Bld) 0.7 % Normal 0.0-2.0 [facility] Comment on above: Performed By: #### 5 7021-8 #### JOSHUA CRESPO (43066) [facility] ([facility]) [address] [place] [address] Eosinophils (Bld) [#/Vol] 0.23 x10*3/uL Normal 0.00-0.70 [facility] Comment on above: Performed By: #### 5 7021-8 #### JOSHUA CRESPO (93503) [facility] ([facility]) [address] [place] [address] Eosinophils/100 WBC (Bld) 3.8 % Normal 0.0-6.0 [facility] Comment on above: Performed By: #### 5 7021-8 #### JOSHUA CRESPO (86678) [facility] ([facility]) [address] [place] [address] Erythrocyte distribution width (RBC) [Ratio] 13.7 % Normal 11.5-14.5 [facility] Comment on above: Performed By: #### 5 7021-8 #### JOSHUA CRESPO (02260) [facility] ([facility]) [address] [place] [address] Hematocrit (Bld) [Volume fraction] 46.0 % Normal 41.0-52.0 [facility] Comment on above: Performed By: #### 5 7021-8 #### JOSHUA CRESPO (69598) [facility] ([facility]) [address] [place] [address] Hemoglobin (Bld) [Mass/Vol] 15.4 g/dL Normal 13.5-17.5 [facility] Comment on above: Performed By: #### 5 7021-8 #### JOSHUA CRESPO (77596) [facility] ([facility]) [address] [place] [address] Immature granulocytes (Bld) [#/Vol] 0.02 x10*3/uL Normal 0.00-0.70 [facility] Comment on above: Performed By: #### 5 7021-8 #### JOSHUA CRESPO (57088) [facility] ([facility]) [address] [place] [address] Immature granulocytes/100 WBC (Bld) 0.3 % Normal 0.0-0.9 [facility] Comment on above: Result Comment: Bhargavi ture Granulocyte Count (IG) includes promyelocytes, myelocytes and metamyelocytes but does not include bands. Percent differential counts (%) should be interpreted in the context of the absolute cell counts (cells/UL). Performed By: #### 5 7021-8 #### JOSHUA CRESPO (54037) [facility] ([facility]) [address] [place] [address] Lymphocytes (Bld) [#/Vol] 1.49 x10*3/uL Normal 1.20-4.80 [facility] Comment on above: Performed By: #### 5 7021-8 #### JOSHUA CRESPO ([id number]) [facility] ([facility]) [address] [place] [id number] Lymphocytes/100 WBC (Bld) 24.9 % Normal 13.0-44.0 [facility] Comment on above: Performed By: #### 5 7021-8 #### JOSHUA CRESPO (44178) [facility] ([facility]) [address] [place] [address] MCH (RBC) [Entitic mass] 32.0 pg Normal 26.0-34.0 [facility] Comment on above: Performed By: #### 5 7021-8 #### JOSHUA CRESPO (90328) [facility] ([facility]) [address] [place] [address] MCHC (RBC) [Mass/Vol] 33.5 g/dL Normal 32.0-36.0 [facility] Comment on above: Performed By: #### 5 7021-8 #### JOSHUA CRESPO (55214) [facility] ([facility]) [address] [place] [address] MCV (RBC) [Entitic vol] 96 fL Normal 80-100 [facility] Comment on above: Performed By: #### 5 7021-8 #### JOSHUA CRESPO (54323) [facility] ([facility]) [address] [place] [address] Monocytes (Bld) [#/Vol] 0.39 x10*3/uL Normal 0.10-1.00 [facility] Comment on above: Performed By: #### 5 7021-8 #### JOSHUA CRESPO (20796) [facility] ([facility]) [address] [place] [address] Monocytes/100 WBC (Bld) 6.5 % Normal 2.0-10.0 [facility] Comment on above: Performed By: #### 5 7021-8 #### JOSHUA CRESPO ([id number]) [facility] ([facility]) [address] [place] [address] Neutrophils (Bld) [#/Vol] 3.82 x10*3/uL Normal 1.20-7.70 [facility] Comment on above: Result Comment: Perc ent differential counts (%) should be interpreted in the context of the absolute cell counts (cells/uL). Performed By: #### 5 7021-8 #### JOSHUA CRESPO ([id number]) [facility] ([facility]) [address] [place] [address] Neutrophils/100 WBC (Bld) 63.8 % Normal 40.0-80.0 [facility] Comment on above: Performed By: #### 5 7021-8 #### JOSHUA CRESPO ([id number]) [facility] ([facility]) [address] [place] [address] Nucleated RBC/100 WBC (Bld) [Ratio] 0.0 /100 WBCs Normal 0.0-0.0 [facility] Comment on above: Performed By: #### 5 7021-8 #### JOSHUA CRESPO ([id number]) [facility] ([facility]) [address] [place] [address] Platelets (Bld) [#/Vol] 186 x10*3/uL Normal 150-450 [facility] Comment on above: Performed By: #### 5 7021-8 #### JOSHUA CRESPO ([id number]) [facility] ([facility]) [address] [place] [address] RBC (Bld) [#/Vol] 4.81 x10*6/uL Normal 4.50-5.90 [facility] Comment on above: Performed By: #### 5 7021-8 #### JOSHUA CRESPO ([id number]) [facility] ([facility]) [address] [place] [address] WBC (Bld) [#/Vol] 6.0 x10*3/uL Normal 4.4-11.3 [facility] Comment on above: Performed By: #### 5 7021-8 #### JOSHUA CRESPO ([id number]) [facility] ([facility] [place]) [address] [place] [address] ECG 12-LEADon 05-17-2024 ECG 12-LEAD Ventricular Rate 70 Atrial Rate 70 P-R Interval 186 QRS Duration 96 Q-T Interval 384 QTC Calculation([place]) [address] [place] 35 R [place] -13 T [place] 35 QRS Count 11 Q Onset 223 P Onset 130 P Offset 179 T Offset 415 QTC Fred[place] 404 Diagnosis Normal sinus rhythm Normal ECG No previous ECGs available Confirmed by Bonifacio Cruz ([id number]) on 05/17/2024 1:21:[address] [facility] HbA1c (Bld) [Mass fraction]o n 05-17-2024 Average glucose Estimated from glycated hemoglobin (Bld) [Mass/Vol] 194 mg/dL Normal Not Established [facility] Comment on above: Order Comment: Diagn osis of Diabetes-Adults Non-Diabetic: < or = 5.6% Increased risk for developing diabetes: 5.7-6.4% Diagnostic of diabetes: > or = 6.5% Performed By: #### 4 548-4 #### ELEONORA Glez ([id number]) [facility] ([facility]) [id number] [place] [address] Hemoglobin A1c/Hemoglobin.to jose 05-17-2024 HbA1c (Bld) [Mass fraction] 8.4 % High see below [facility] Comment on above: Order Comment: Diagn osis of Diabetes-Adults Non-Diabetic: < or = 5.6% Increased risk for developing diabetes: 5.7-6.4% Diagnostic of diabetes: > or = 6.5% Performed By: #### 4 548-4 #### ELEONORA Glez ([id number]) [facility] ([facility]) [address] [place], [place] [id number] PT and aPTT panel Coag (PPP) on 05-17-2024 aPTT Coag (PPP) [Time] 31 s Normal 27-38 [facility] Comment on above: Order Comment: The A PTT is no longer used for monitoring Unfractionated Heparin Therapy. For monitoring Heparin Therapy, use the Heparin Assay. Performed By: #### 3 4529-8 #### JOSHUA CRESPO ([id number]) [facility] ([facility]) [address] [place] [address] INR Coag (PPP) [Relative time] 0.9 Normal 0.9-1.1 [facility] Comment on above: Order Comment: The A PTT is no longer used for monitoring Unfractionated Heparin Therapy. For monitoring Heparin Therapy, use the Heparin Assay. Performed By: #### 3 4529-8 #### JOSHUA CRESPO ([id number]) [facility] ([facility]) [address] [place] [id number] PT Coag (PPP) [Time] 9.6 s Low 9.8-12.8 [facility] Comment on above: Order Comment: The A PTT is no longer used for monitoring Unfractionated Heparin Therapy. For monitoring Heparin Therapy, use the Heparin Assay. Performed By: #### 3 4529-8 #### JOSHUA CRESPO ([id number]) [facility] ([facility]) [address] [place] [address] Staphylococcus aureus.methic illin resistant isolateon 05-17-2024 MRSA isol Org specific cx Ql (Nose) Test: Staphylococcus aureus/MRSA colonization, Culture Specimen Source: Nares/Axilla/Groin Specimen Type: Swab Specimen Date: 05/17/2024 1007 Result Date: 05/19/2024 1143 Result Status: Final result Abnormal: Yes Resulting Lab: [facility] [address] [place] [address] CULTURE Isolated: Methicillin Susceptible Staphylococcus aureus (MSSA) (Abnormal) Abnormal [facility] Comment on above: Performed By: #### 5 2969-3 #### ELEONORA Glez ([id number]) [facility] ([facility]) [id number] [place] [address] Urinalysis complete W Reflex Culture panel (U)on 05-17-2024 Appearance (U) Clear Normal Clear [facility] Comment on above: Performed By: #### 5 8077-9 #### JOSHUA CRESPO ([id number]) [facility] ([facility]) [address] [place] [address] Bilirubin (U) [Mass/Vol] Negative Normal NEGATIVE [facility] Comment on above: Performed By: #### 5 8077-9 #### JOSHUA CRESPO ([id number]) [facility] ([facility]) [address] [place] [address] Color (U) Light-Yellow Normal Light-Yellow , Yellow, Dark-Yellow [facility] Comment on above: Performed By: #### 5 8077-9 #### JOSHUA CRESPO ([id number]) [facility] ([facility]) [address] [place] [address] Glucose Auto test strip (U) [Mass/Vol] OVER (4+) Abnormal Normal [facility] Comment on above: Performed By: #### 5 8077-9 #### JOSHUA CRESPO ([id number]) [facility] ([facility]) [address] [place], [place] [id number] Ketones (U) [Mass/Vol] Negative Normal NEGATIVE [facility] Comment on above: Performed By: #### 5 8077-9 #### JOSHUA CRESPO ([id number]) [facility] ([facility]) [address] [place], [place] [id number] Leukocyte esterase Auto test strip Ql (U) Negative Normal NEGATIVE [facility] Comment on above: Performed By: #### 5 8077-9 #### JOSHUA CRESPO ([id number]) [facility] ([facility]) [address] [place] [address] Nitrite Auto test strip Ql (U) Negative Normal NEGATIVE [facility] Comment on above: Performed By: #### 5 8077-9 #### JOSHUA CRESPO ([id number]) [facility] ([facility]) [address] [place] [address] pH (U) 6.5 [pH] Normal 5.0, 5.5, 6.0, 6.5, 7.0, 7.5, 8.0 [facility] Comment on above: Performed By: #### 5 8077-9 #### JOSHUA CRESPO ([id number]) [facility] ([facility]) [address] [place] [address] Protein (U) [Mass/Vol] 20 (TRACE) Normal NEGATIVE, 10 (TRACE), 20 (TRACE) [facility] Comment on above: Performed By: #### 5 8077-9 #### JOSHUA CRESPO ([id number]) [facility] ([facility]) [address] [place] [address] RBC (U) [#/Vol] Negative Normal NEGATIVE [facility] Comment on above: Performed By: #### 5 8077-9 #### JOSHUA CRESPO ([id number]) [facility] ([facility]) [address] [place] [address] RBC Auto (Urine sed) [#/Area] 1-2 Normal NONE, 1-2, 3-5 [facility] Comment on above: Performed By: #### 5 8077-9 #### JOSHUA CRESPO ([id number]) [facility] ([facility]) [address] [place] [address] Specific gravity (U) [Rel density] 1.028 Normal 1.005-1.035 [facility] Comment on above: Performed By: #### 5 8077-9 #### JOSHUA CRESPO ([id number]) [facility] ([facility]) [address] [place] [address] Urobilinogen (U) [Mass/Vol] Normal Normal Normal [facility] Comment on above: Performed By: #### 5 8077-9 #### JOSHUA CHERIE ([id number]) [facility] ([facility]) [address] [place] [address] WBC Auto (Urine sed) [#/Area] NONE Normal 1-5, NONE [facility] Comment on above: Performed By: #### 5 8077-9 #### JOSHUA CHERIE ([id number]) [facility] ([facility]) [address] [place] [id number] XR CERVICAL SPINE COMPLETE 4 -5 VIEWSon 04-01-2024 XR CERVICAL SPINE COMPLETE 4-5 VIEWS Interpreted By: Lety Pickard, STUDY: XR CERVICAL SPINE COMPLETE 4-5 VIEWS 04/01/2024 10:20 am INDICATION: Signs/Symptoms:neck pain and cervical myelopathy COMPARISON: None available. ACCESSION NUMBER(S): [id number] ORDERING CLINICIAN: MARYANN RUBALCAVA TECHNIQUE: AP and [...] Lety Pickard 04/02/2024 7:21 PM Dictation workstation: [id number] [facility] Comment on above: Order Comment: Jem hankins perform upright AP, LATERAL views with FLEXION and EXTENSION films. ( Total 4 views ) XR scoliosis surveyon 2023 XR scoliosis survey [facility] [address] [place] [address] XRay Report Signed Patient: Koko Meier MR#: [id number] : 1960 Acct:[id number] Age/Sex: 63 / M ADM Date: 03/31/24 Loc: XD Room: Type: [facility] Attending Dr: Maryann Rubalcava MD Copies [...] Bruce Ortiz M.D.03/31/2024 6:16 PM Dictation Location: [place] [address] Transcribed By: [facility] 03/31/241815 Dictated By: Bruce Ortiz II, MD 03/31/241811 Signed By: 03/31/241815 Normal [facility] Amphetamine Screen Ql (U)Ord ered By: Giuseppe Desouza on 01-19-2024 Amphetamines Ql (U) Negative Negative [facility] Barbiturates [Presence] in U rine by Screen methodOrdered By: Giuseppe Desouza on 01-19-2024 Barbiturates Screen Ql (U) Negative Negative [facility] Benzodiazepines Screen Ql (U )Ordered By: Giuseppe Desouza on 01-19-2024 Benzodiazepines Ql (U) Negative Negative [facility] Benzoylecgonine [Presence] i n Urine by Screen methodOrdered By: Giuseppe Desouza on 01-19-2024 Benzoylecgonine Screen Ql (U) Negative Negative [facility] Cannabinoids [Presence] in U rine by Screen methodOrdered By: Giuseppe Desouza on 01-19-2024 Cannabinoids Screen Ql (U) Positive Negative [facility] Comment on above: These are unconfirme d results and should not be used for legal purposes. Drug Cut-Off Concentration: AMPH 1000 ng/mL ZE 200 ng/mL DUANE 200 ng/mL COCM 300 ng/mL OP 300 ng/mL PCP 25 ng/mL THC 20 ng/mL Capillary blood glucose ezra urement by glucometer (mass/volume)Ordered By: Yogesh Becker on 01-19-2024 Glucose [Mass/Vol] 160 mg/dL Normal [facility] Comment on above: Random Glucose Refer ence Range is dependent on time and content of last meal. Glucose of more than 200 mg/dL in a nonstressed, ambulatory subject supports the diagnosis of Diabetes Mellitus. Result Comment: [place] Glucose Reference Range is dependent on time and content of last meal. Glucose of more than 200 mg/dL in a nonstressed, ambulatory subject supports the diagnosis of Diabetes Mellitus. PERFORMED BY: [place] [address] PATHOLOGIST [employer] CLEVE CANDELARIA M.D. Performed By: #### T SH3, [id number] #### [place] [address] [place] #### METH #### [facility] , Drug Screen,Urineon 01-19-20 24 Amphetamine Screen,Urine Negative Normal Negative [facility] Comment on above: Order Comment: Comme nt stat when patient gets to prep Performed By: #### T SH3, [id number] #### [place] [address] [place] #### METH #### [facility] , Barbiturate Screen,Urine Negative Normal Negative [facility] Comment on above: Order Comment: Comme nt stat when patient gets to prep Performed By: #### T SH3, [id number] #### [address] #### METH #### [facility] , Benzodiazepines Screen,Urine Negative Normal Negative [facility] Comment on above: Order Comment: Comme nt stat when patient gets to prep Performed By: #### T SH3, [id number] #### [address] #### METH #### [facility] , Cannabinoid Screen,Urine Positive High Negative [facility] Comment on above: Order Comment: Comme nt stat when patient gets to prep Result Comment: Thes e are unconfirmed results and should not be used for legal purposes. Drug Cut-Off Concentration: AMPH 1000 ng/mL ZE 200 ng/mL DUANE 200 ng/mL COCM 300 ng/mL OP 300 ng/mL PCP 25 ng/mL THC 20 ng/mL PERFORMED BY: [place] [address] PATHOLOGIST [employer] CLEVE CANDELARIA M.D. Performed By: #### T SH3, [id number] #### [place] [address] [place] #### METH #### [facility] , Cocaine Screen,Urine Negative Normal Negative [facility] Comment on above: Order Comment: Comme nt stat when patient gets to prep Performed By: #### T SH3, [id number] #### [place] [address] [place] #### METH #### [facility] , Opiate Screen,Urine Negative Normal Negative [facility] Comment on above: Order Comment: Comme nt stat when patient gets to prep Performed By: #### T SH3, [id number] #### [address] #### METH #### [facility] , Phencyclidine Screen,Urine Negative Normal Negative [facility] Comment on above: Order Comment: Comme nt stat when patient gets to prep Performed By: #### T SH3, [id number] #### [facility] [address] [place] [address] #### METH #### [facility] , Glucose Poct Glucometerson 0 01-19-2024 Commemt1 Glu2: Cleaned Meter Normal [facility] Comment on above: Result Comment: PERF ORMED BY: [place] [address] PATHOLOGIST [employer] CLEVE CANDELARIA M.D. Performed By: #### G LULS #### Point of Care testing , Glucose [Mass/Vol] 162 mg/dL Normal [facility] Comment on above: Result Comment: [place] Glucose Reference Range is dependent on time and content of last meal. Glucose of more than 200 mg/dL in a nonstressed, ambulatory subject supports the diagnosis of Diabetes Mellitus. Performed By: #### G LULS #### Point of Care testing , Commemt1 Glu2: Cleaned Meter Normal [facility] Comment on above: Result Comment: PERF ORMED BY: [place] [address] PATHOLOGIST [employer] CLEVE CANDELARIA M.D. Performed By: #### T SH3, [id number] #### [address] #### METH #### [facility] , Glucose [Mass/Vol] 250 mg/dL Normal [facility] Comment on above: Result Comment: [place] Glucose Reference Range is dependent on time and content of last meal. Glucose of more than 200 mg/dL in a nonstressed, ambulatory subject supports the diagnosis of Diabetes Mellitus. Performed By: #### T SH3, [id number] #### [address] #### METH #### [facility] , No Panel InformationOrdered By: Yogesh Becker on 01-19-2024 Bedside Glucose Comment Glu2: cleaned meter [facility] Opiates [Presence] in Urine by Screen methodOrdered By: Giuseppe Desouza on 01-19-2024 Opiates Screen Ql (U) Negative Negative [facility] Phencyclidine Screen Ql (U)O rdered By: Giuseppe Desouza on 01-19-2024 Phencyclidine Ql (U) Negative Negative [facility] Automated basophil %Ordered By: Yogesh Becker on 01-12-2024 Basophils/100 WBC (Bld) 0.9 % Normal . [facility] Comment on above: Performed By: #### C BC, BMP #### [address] Automated basophil countOrde red By: Yogesh Becker on 01-12-2024 Basophils (Bld) [#/Vol] 0.1 10*3/uL Normal 0.0-0.2 [facility] Comment on above: Result Comment: PERF ORMED BY: [place] [address] PATHOLOGIST [employer] CLEVE CANDELARIA M.D. Performed By: #### C BC, BMP #### [address] Automated blood monocyte cou ntOrdered By: Yogesh Becker on 01-12-2024 Monocytes (Bld) [#/Vol] 0.4 10*3/uL Normal 0.0-0.8 [facility] Comment on above: Performed By: #### C BC, BMP #### [address] Automated eosinophil %Ordere d By: Yogesh Becker on 01-12-2024 Eosinophils/100 WBC (Bld) 3.9 % Normal . [facility] Comment on above: Performed By: #### C BC, BMP #### [address] Automated eosinophil countOr dered By: Yogesh Becker on 01-12-2024 Eosinophils (Bld) [#/Vol] 0.3 10*3/uL Normal 0.0-0.45 [facility] Comment on above: Performed By: #### C BC, BMP #### [address] Automated monocyte %Ordered By: Yogesh Becker on 01-12-2024 Monocytes/100 WBC (Bld) 5.2 % Normal . [facility] Comment on above: Performed By: #### C BC, BMP #### [address] Automated neutrophil %Ordere d By: Yogesh Becker on 01-12-2024 Neutrophils/100 WBC (Bld) 73.3 % Normal . [facility] Comment on above: Performed By: #### C BC, BMP #### [address] Basic Metabolic Panelon 12-25 GFR/1.73 sq M.predicted MDRD (S/P/Bld) [Vol rate/Area] mL/min/{1.73_m2} Normal [facility] Comment on above: Performed By: #### C BC, BMP #### [address] Calcium [Mass/volume] in Ser um or PlasmaOrdered By: Yogesh Becker on 01-12-2024 Calcium [Mass/Vol] 9.3 mg/dL Normal 8.6-10.3 [facility] Comment on above: Result Comment: PERF ORMED BY: [place] [address] PATHOLOGIST [employer] CLEVE CANDELARIA M.D. Performed By: #### C BC, BMP #### [address] Carbon dioxide, total [Moles /volume] in Serum or PlasmaOrdered By: Yogesh Becker on 01-12-2024 CO2 [Moles/Vol] 33.8 mmol/L High 21.0-31.0 [facility] Comment on above: Performed By: #### C BC, BMP #### [address] Chloride [Moles/volume] in S raffi or PlasmaOrdered By: Yogesh Becker on 01-12-2024 Chloride [Moles/Vol] 98 mmol/L Normal 98-107 [facility] Comment on above: Performed By: #### C BC, BMP #### [address] Complete Blood Count Auto Di ffon 01-12-2024 Mean Corpuscular HGB Conc 33.1 g/dL Normal 32.5-35.6 [facility] Comment on above: Performed By: #### C BC, BMP #### [address] NRBC% 0.1 /100{WBC} Normal 0-0.5 [facility] Comment on above: Performed By: #### C BC, BMP #### [address] Creatinine [Mass/volume] in Serum or PlasmaOrdered By: Yogesh Becker on 01-12-2024 Creatinine [Mass/Vol] 0.82 mg/dL Normal 0.70-1.30 [facility] Comment on above: Performed By: #### C BC, BMP #### [address] Erythrocyte distribution wid th [Ratio] by Automated countOrdered By: Yogesh Becker on 01-12-2024 Erythrocyte distribution width (RBC) [Ratio] 14.2 % Normal 12.0-14.8 [facility] Comment on above: Performed By: #### C BC, BMP #### [address] [place] [address] [place] Erythrocytes [#/volume] in B lood by Automated countOrdered By: Yogesh Becker on 01-12-2024 RBC (Bld) [#/Vol] 5.21 10*6/uL Normal 3.90-5.60 [facility] Comment on above: Performed By: #### C BC, BMP #### [place] [address] [place] Glucose [Mass/volume] in Ser um or PlasmaOrdered By: Yogesh Becker on 01-12-2024 Glucose [Mass/Vol] 281 mg/dL High 70-100 [facility] Comment on above: ADA recommended refe rence rangeRandom Glucose Reference Range is dependent on time and content of last meal. Glucose of more than 200 mg/dL in a nonstressed, ambulatory subject supports the diagnosis of Diabetes Mellitus. Result Comment: [place] om Glucose Reference Range is dependent on time and content of last meal. Glucose of more than 200 mg/dL in a nonstressed, ambulatory subject supports the diagnosis of Diabetes Mellitus. ADA recommended reference range Performed By: #### C BC, BMP #### [address] Hematocrit [Volume Fraction] of Blood by Automated countOrdered By: Yogesh Becker on 01-12-2024 Hematocrit (Bld) [Volume fraction] 50.5 % High 38.8-50.0 [facility] Comment on above: Performed By: #### C BC, BMP #### [address] Hemoglobin [Mass/volume] in BloodOrdered By: Yogesh Becker on 01-12-2024 Hemoglobin (Bld) [Mass/Vol] 16.7 g/dL Normal 13.0-17.0 [facility] Comment on above: Performed By: #### C BC, BMP #### [address] Leukocytes [#/volume] correc charanjit for nucleated erythrocytes in Blood by Automated counOrdered By: Yogesh Becker on 01-12-2024 WBC corrected for nucl RBC Auto (Bld) [#/Vol] 8.5 10*3/uL 4.1-10.5 [facility] Leukocytes [#/volume] in Blo od by Automated countOrdered By: Yogesh Becker on 01-12-2024 WBC (Bld) [#/Vol] 8.5 10*3/uL Normal 4.1-10.5 [facility] Comment on above: Performed By: #### C AMAIRANI, BMP #### [facility] [address] Lymphocytes [#/volume] in Bl ood by Automated countOrdered By: Yogesh Becker on 01-12-2024 Lymphocytes (Bld) [#/Vol] 1.4 10*3/uL Normal 1.00-4.8 [facility] Comment on above: Performed By: #### C AMAIRANI, BMP #### [facility] [address] [place] [address] Lymphocytes/100 leukocytes i n Blood by Automated countOrdered By: Yogesh Becker on 01-12-2024 Lymphocytes/100 WBC (Bld) 16.7 % Normal . [facility] Comment on above: Performed By: #### C AMAIRANI, BMP #### [address] MCH [Entitic mass] by Automa charanjit countOrdered By: Yogesh Becker on 01-12-2024 MCH (RBC) [Entitic mass] 32.1 pg Normal 27.5-35.2 [facility] Comment on above: Performed By: #### C AMAIRANI, BMP #### [facility] [address] [place] [address] MCHC Auto (RBC) [Mass/Vol]Or dered By: Yogesh Becker on 01-12-2024 MCHC (RBC) [Mass/Vol] 33.1 g/dL 32.5-35.6 [facility] MCV [Entitic volume] by Auto mated countOrdered By: Yogesh Becker on 01-12-2024 MCV (RBC) [Entitic vol] 96.9 fL Normal 83.5-101 [facility] Comment on above: Performed By: #### C BC, BMP #### [facility] [address] Neutrophils [#/volume] in Bl ood by Automated countOrdered By: Yogesh Becker on 01-12-2024 Neutrophils (Bld) [#/Vol] 6.2 10*3/uL Normal 1.8-7.7 [facility] Comment on above: Performed By: #### C BC, BMP #### [facility] [address] No Panel InformationOrdered By: Yogesh Becker on 01-12-2024 Estimated GFR (CKD-EPI) > 60.0 mL/Min [facility] Creatinine Clearance (Chem N/A [facility] Nucleated erythrocytes [Pres ence] in Blood by Automated countOrdered By: Yogesh Becker on 01-12-2024 Nucleated RBC Auto Ql (Bld) 0.1 /100{WBC} 0-0.5 [facility] Platelet mean volume [Entiti c volume] in Blood by Automated countOrdered By: Yogesh Becker on 01-12-2024 Platelet mean volume (Bld) [Entitic vol] 8.6 fL Normal 6.6-10.1 [facility] Comment on above: Performed By: #### C BC, BMP #### [facility] [address] [place] [address] Platelets [#/volume] in Bloo d by Automated countOrdered By: Yogesh Becker on 01-12-2024 Platelets (Bld) [#/Vol] 186 10*3/uL Normal 150-450 [facility] Comment on above: Performed By: #### C BC, BMP #### [facility] [address] Potassium [Moles/volume] in Serum or PlasmaOrdered By: Yogesh Becker on 01-12-2024 Potassium [Moles/Vol] 5.0 mmol/L Normal 3.5-5.1 [facility] Comment on above: Performed By: #### C BC, BMP #### [facility] [address] [place] [address] Serum or plasma anion gap de terminationOrdered By: Yogesh Becker on 01-12-2024 Anion gap [Moles/Vol] 9.2 mmol/L Normal 6.0-15.0 [facility] Comment on above: Performed By: #### C BC, BMP #### [facility] [address] [place] [address] [place] Sodium [Moles/volume] in Ser um or PlasmaOrdered By: Yogesh Becker on 01-12-2024 Sodium [Moles/Vol] 136 mmol/L Normal 136-145 [facility] Comment on above: Performed By: #### C BC, BMP #### [address] Urea nitrogen [Mass/volume] in Serum or PlasmaOrdered By: Yogesh Becker on 01-12-2024 Urea nitrogen [Mass/Vol] 24 mg/dL Normal 7-25 [facility] Comment on above: Performed By: #### C BC, BMP #### [address] MR cervical spine wo conon 0 12-16-2023 MR cervical spine wo con [facility] [address] [place] [address] MRI Report Signed Patient: Koko Meier MR#: [id number] : 1960 Acct:[id number] Age/Sex: 63 / M ADM Date: 12/16/23 [facility] [facility] [place] Room: Type: [facility] Attending Dr: Maryann Rubalcava MD Copies [...] Bruce Ortiz M.D.12/16/2023 3:15 PM Dictation Location: RADIO--07 Transcribed By: SHIRLEY 12/16/23 1515 Dictated By: Bruce Ortiz II, MD 12/16/23 1500 Signed By: 12/16/23 1515 Normal [facility] CT head/brain wo conon 11-25 CT head/brain wo con [facility] [place] [address] CT Scan Report Signed Patient: Koko Meier MR#: [id number] : 1960 Acct:[id number] Age/Sex: 62 / M ADM Date: 11/25/23 Loc: CT Room: Type: [facility] Attending Dr: Oliver Kerr MD Copies [...] Koko Hernandez M.D.11/25/2023 12:02 PM Dictation Location: RADIO--01 Transcribed By: SHIRLEY 11/25/23 1202 Dictated By: Koko Hernandez DO 11/25/23 1201 Signed By: 11/25/23 1202 Normal [facility] Cholesterol [Mass/volume] in Serum or PlasmaOrdered By: Josh Melvin on 11-24-2023 Cholesterol [Mass/Vol] 168 mg/dL Normal 140-200 [facility] Comment on above: Chol less than 200 m g/dl low riskChol 201-239 mg/dl borderline riskChol 240 mg/dl and greater high risk Result Comment: Chol less than 200 mg/dl low risk Chol 201-239 mg/dl borderline risk Chol 240 mg/dl and greater high risk Performed By: #### C BC, BMP #### [facility] [address] Cholesterol in LDL Calc [Mas s/Vol]Ordered By: Josh Melvin on 11-24-2023 Cholesterol in LDL [Mass/Vol] 70 mg/dL 0-100 [facility] Comment on above: LDL ATP III CLASSIFI CATIONLDL less than 100 mg/dL OptimalLDL 100-129 mg/dL Near or above optimalLDL 130-159 mg/dL Borderline highLDL 160-189 mg/dL HighLDL greater than 189 mg/dL Very high Cholesterol in VLDL Calc [Ma ss/Vol]Ordered By: Josh Melvin on 11-24-2023 Cholesterol in VLDL [Mass/Vol] 43 mg/dL [facility] Folate [Mass/volume] in Seru m or PlasmaOrdered By: Oliver Kerr on 11-24-2023 Folate [Mass/Vol] 14.9 ng/mL >5.9 [facility] Comment on above: Folate reference ran ge: >5.9 ng/mlThe WHO technical consultation on folate and vitamin [id number] has determined that folate concentrations lessthan 4 ng/ml are considered deficient. Lipid Panelon 11-24-2023 LDL Cholesterol,Calculate d 70 mg/dL Normal 0-100 [facility] Comment on above: Result Comment: LDL ATP III CLASSIFICATION LDL less than 100 mg/dL Optimal LDL 100-129 mg/dL Near or above optimal LDL 130-159 mg/dL Borderline high LDL 160-189 mg/dL High LDL greater than 189 mg/dL Very high Performed By: #### C BC, BMP #### [facility] [address] [place] [address] Triglyceride w/Reflex 218 mg/dL High 0-149 [facility] Comment on above: Result Comment: TRIG ATP III CLASSIFICATION TRIG less than 150 mg/dL Normal TRIG 150-199 mg/dL Borderline high TRIG 200-500 mg/dL High TRIG greater than 500 mg/dL Very high Standard traceable to the Center for Disease Conrtrol and Prevention (CDC) test method. Performed By: #### C BC, BMP #### [address] VLDL CHOLESTEROL 43 mg/dL Normal [facility] Comment on above: Performed By: #### C BC, BMP #### [address] Methylmalonic Acidon 024 Methylmalonic Acid 169 Normal 0-378 [facility] Comment on above: Result Comment: This test was developed and its performance characteristics determined by [employer]. It has not been cleared or approved by the Food and Drug Administration. Performed at: [address] [id number] [employer] Steam Fitter: Caroline Romo MD, Phone: [phone] PERFORMED BY: [place] [address] PATHOLOGIST [employer] SALES AMBASSADOR CLEVE CANDELARIA M.D. Performed By: #### T SH3, [id number] #### [address] #### METH #### [facility] , PSA Screen (Yearly Only)on 0 11-24-2023 PSA Screen (Yearly Only) 1.380 ng/mL Normal 0.000-4.000 [facility] Comment on above: Order Comment: Is pa tient <50 yrs? Medicare does not pay <50.: Y What is the date of the last PSA Screen?: 01/31/22 Is Medicare the insurance?: U Did you verify eligibility (Dx Time) check TestViewGp: YES TO ALL Result Comment: Seri al tumor marker results determined by assays using different manufacturers or methods may not be comparable. [facility] health information technician and method: WENDY UNICEL DXI, CHEMILUMINESCENT IMMUNOASSAY. PERFORMED BY: [place] [address] PATHOLOGIST SOLAR SALES AMBASSADOR CLEVE CANDELARIA M.D. Performed By: #### C AMAIRANI, BMP #### [address] Prostate specific Ag [Mass/v olume] in Serum or PlasmaOrdered By: Josh Melvin on 11-24-2023 Prostate specific Ag [Mass/Vol] 1.380 ng/mL 0.000-4.000 [facility] Comment on above: Serial tumor marker results determined by assays using different manufacturers or methods may not be comparable.[facility] health information technician and method:WENDY UNICEL DXI, CHEMILUMINESCENT IMMUNOASSAY. Serum or plasma high density lipoprotein (HDL) cholesterol measurementOrdered By: Josh Melvin on 11-24-2023 Cholesterol in HDL [Mass/Vol] 54 mg/dL Normal 23-92 [facility] Comment on above: HDL CHOL ATP-III CLA SSIFICATION Cardiovascular RiskHDL > or equal to 60 mg/dL LOWHDL < 40 mg/dL HIGH Result Comment: HDL CHOL ATP-III CLASSIFICATION Cardiovascular Risk HDL > or equal to 60 mg/dL LOW HDL < 40 mg/dL HIGH Performed By: #### C AMAIRANI, BMP #### [address] Serum or plasma methylmalona te measurement (moles/volume)Ordered By: Oliver Kerr on 11-24-2023 Methylmalonate [Moles/Vol] 169 nmol/L 0-378 [facility] Comment on above: This test was develo ped and its performance characteristicsdetermined by [employer]. It has not been cleared orapproved by the Food and Drug Administration.Performed at: [address] [id number] Director: Caroline Romo MD, Phone: [phone] Serum or plasma total choles terol/high density lipoprotein (HDL) cholesterol mass ratOrdered By: Josh Melvin on 11-24-2023 Cholesterol.total/Cho lesterol in HDL [Mass ratio] 3.1 {ratio} Normal <5.0 [facility] Comment on above: Result Comment: PERF ORMED BY: [place] [address] PATHOLOGIST [employer] SALES AMBASSADOR CLEVE CANDELARIA M.D. Performed By: #### C BC, BMP #### [address] Thyrotropin [Units/volume] i n Serum or PlasmaOrdered By: Oliver Kerr on 11-24-2023 TSH Qn 2.24 m[IU]/L Normal 0.45-5.33 [facility] Comment on above: Result Comment: PERF ORMED BY: [place] [address] PATHOLOGIST [employer] SALES AMBASSADOR CLEVE CANDELARIA M.D. Performed By: #### T SH3, [id number] #### [address] #### METH #### [facility] , Triglyceride [Mass/volume] i n Serum or PlasmaOrdered By: Josh Melvin on 11-24-2023 Triglyceride [Mass/Vol] 218 mg/dL 0-149 [facility] Comment on above: TRIG ATP III CLASSIF ICATIONTRIG less than 150 mg/dL NormalTRIG 150-199 mg/dL Borderline highTRIG 200-500 mg/dL High TRIG greater than 500 mg/dL Very highStandard traceable to the Center for Disease Conrtrol and Prevention (CDC) test method. Vit. B12/Folate Profileon Folate 14.9 ng/mL Normal >5.9 [facility] Comment on above: Result Comment: Lin te reference range: >5.9 ng/ml The WHO technical consultation on folate and vitamin b12 deficiencies has determined that folate concentrations less than 4 ng/ml are considered deficient. Performed By: #### T SH3, [id number] #### [place] [address] [place] #### METH #### [facility] , Vitamin B12 ser/plasOrdered By: Oliver Kerr on 11-24-2023 Cobalamin (Vitamin B12) [Mass/Vol] 365 pg/mL Normal 180-914 [facility] Comment on above: Performed By: #### T SH3, [id number] #### [address] #### METH #### [facility] , Amphetamine Screen Ql (U)Ord ered By: Kenroy Domínguez on 11-03-2023 Amphetamines Ql (U) Negative Negative [facility] Barbiturates [Presence] in U rine by Screen methodOrdered By: Kenroy Domínguez on 11-03-2023 Barbiturates Screen Ql (U) Negative Negative [facility] Benzodiazepines Screen Ql (U )Ordered By: Kenroy Domínguez on 11-03-2023 Benzodiazepines Ql (U) Negative Negative [facility] Benzoylecgonine [Presence] i n Urine by Screen methodOrdered By: Kenroy Domínguez on 11-03-2023 Benzoylecgonine Screen Ql (U) Negative Negative [facility] Cannabinoids [Presence] in U rine by Screen methodOrdered By: Kenroy Domínguez on 11-03-2023 Cannabinoids Screen Ql (U) Positive Negative [facility] Comment on above: These are unconfirme d results and should not be used for legal purposes. Drug Cut-Off Concentration: AMPH 1000 ng/mL ZE 200 ng/mL DUANE 200 ng/mL COCM 300 ng/mL OP 300 ng/mL PCP 25 ng/mL THC 20 ng/mL Capillary blood glucose ezra urement by glucometer (mass/volume)Ordered By: Yogesh Becker on 11-03-2023 Glucose [Mass/Vol] 185 mg/dL Normal [facility] Comment on above: Random Glucose Refer ence Range is dependent on time and content of last meal. Glucose of more than 200 mg/dL in a nonstressed, ambulatory subject supports the diagnosis of Diabetes Mellitus. Result Comment: [place] Glucose Reference Range is dependent on time and content of last meal. Glucose of more than 200 mg/dL in a nonstressed, ambulatory subject supports the diagnosis of Diabetes Mellitus. PERFORMED BY: [facility] [address] [place] [address] PATHOLOGIST [employer] SALES AMBASSADOR CLEVE CANDELARIA M.D. Performed By: #### C BC, BMP #### [place] [address] [place] Drug Screen,Urineon 11-03-19 24 Amphetamine Screen,Urine Negative Normal Negative [facility] Comment on above: Performed By: #### C BC, BMP #### [address] Barbiturate Screen,Urine Negative Normal Negative [facility] Comment on above: Performed By: #### C BC, BMP #### [address] Benzodiazepines Screen,Urine Negative Normal Negative [facility] Comment on above: Performed By: #### C BC, BMP #### [address] Cannabinoid Screen,Urine Positive High Negative [facility] Comment on above: Result Comment: Thes e are unconfirmed results and should not be used for legal purposes. Drug Cut-Off Concentration: AMPH 1000 ng/mL ZE 200 ng/mL DUANE 200 ng/mL COCM 300 ng/mL OP 300 ng/mL PCP 25 ng/mL THC 20 ng/mL PERFORMED BY: [place] [address] PATHOLOGIST [employer] SALES AMBASSADOR CLEVE CANDELARIA M.D. Performed By: #### C BC, BMP #### [place] [address] [place] Cocaine Screen,Urine Negative Normal Negative [facility] Comment on above: Performed By: #### C BC, BMP #### [place] [address] [place] Opiate Screen,Urine Negative Normal Negative [facility] Comment on above: Performed By: #### C BC, BMP #### [address] Phencyclidine Screen,Urine Negative Normal Negative [facility] Comment on above: Performed By: #### C BC, BMP #### [address] Glucose Poct Glucometerson 0 11-03-2023 Glucose [Mass/Vol] 180 mg/dL Normal [facility] Comment on above: Result Comment: [facility] Glucose Reference Range is dependent on time and content of last meal. Glucose of more than 200 mg/dL in a nonstressed, ambulatory subject supports the diagnosis of Diabetes Mellitus. PERFORMED BY: [place] [address] PATHOLOGIST SOL[employer] SALES AMBASSADOR CLEVE CANDELARIA M.D. Performed By: #### G LULS #### Point of Care testing , Opiates [Presence] in Urine by Screen methodOrdered By: Kenroy Domínguez on 11-03-2023 Opiates Screen Ql (U) Negative Negative [facility] Phencyclidine Screen Ql (U)O rdered By: Kenroy Domínguez on 11-03-2023 Phencyclidine Ql (U) Negative Negative [facility] Automated basophil %Ordered By: Yogesh Becker on 10-23-2023 Basophils/100 WBC (Bld) 0.8 % Normal . [facility] Comment on above: Performed By: #### B MP, CBC #### [facility] [address] [place] [address] Automated basophil countOrde red By: Yogesh Becker on 10-23-2023 Basophils (Bld) [#/Vol] 0.0 10*3/uL Normal 0.0-0.2 [facility] Comment on above: Result Comment: PERF ORMED BY: [place] [address] PATHOLOGIST [employer] SALES AMBASSADOR CLEVE CANDELARIA M.D. Performed By: #### B MP, CBC #### [facility] [address] [place] [address] Automated blood monocyte cou ntOrdered By: Yogesh Becker on 10-23-2023 Monocytes (Bld) [#/Vol] 0.5 10*3/uL Normal 0.0-0.8 [facility] Comment on above: Performed By: #### B MP, CBC #### [facility] [address] [place] [address] Automated eosinophil %Ordere d By: Yogesh Becker on 10-23-2023 Eosinophils/100 WBC (Bld) 3.6 % Normal . [facility] Comment on above: Performed By: #### B MP, CBC #### [facility] [address] Automated eosinophil countOr dered By: Yogesh Becker on 10-23-2023 Eosinophils (Bld) [#/Vol] 0.2 10*3/uL Normal 0.0-0.45 [facility] Comment on above: Performed By: #### B MP, CBC #### [address] Automated monocyte %Ordered By: Yogesh Becker on 10-23-2023 Monocytes/100 WBC (Bld) 9.4 % Normal . [facility] Comment on above: Performed By: #### B MP, CBC #### [facility] [address] [place] [address] Automated neutrophil %Ordere d By: Yogesh Becker on 10-23-2023 Neutrophils/100 WBC (Bld) 59.4 % Normal . [facility] Comment on above: Performed By: #### B MP, CBC #### [address] Basic Metabolic Panelon 09-27 GFR/1.73 sq M.predicted MDRD (S/P/Bld) [Vol rate/Area] mL/min/{1.73_m2} Normal [facility] Comment on above: Performed By: #### C BC, BMP #### [facility] [address] [place] [address] Calcium [Mass/volume] in Ser um or PlasmaOrdered By: Yogesh Becker on 10-23-2023 Calcium [Mass/Vol] 8.8 mg/dL Normal 8.6-10.3 [facility] Comment on above: Result Comment: PERF ORMED BY: [place] [address] PATHOLOGIST [employer] AMBASSADOR CLEVE CANDELARIA M.D. Performed By: #### C BC, BMP #### [address] Carbon dioxide, total [Moles /volume] in Serum or PlasmaOrdered By: Yogesh Becker on 10-23-2023 CO2 [Moles/Vol] 33.8 mmol/L High 21.0-31.0 [facility] Comment on above: Performed By: #### C BC, BMP #### [address] Chloride [Moles/volume] in S raffi or PlasmaOrdered By: Yogesh Becker on 10-23-2023 Chloride [Moles/Vol] 100 mmol/L Normal 98-107 [facility] Comment on above: Performed By: #### C BC, BMP #### [address] Complete Blood Count Auto Di ffon 10-23-2023 Mean Corpuscular HGB Conc 33.8 g/dL Normal 32.5-35.6 [facility] Comment on above: Performed By: #### B MP, CBC #### [address] NRBC% 0.1 /100{WBC} Normal 0-0.5 [facility] Comment on above: Performed By: #### B MP, CBC #### [address] Creatinine [Mass/volume] in Serum or PlasmaOrdered By: Yogesh Becker on 10-23-2023 Creatinine [Mass/Vol] 0.71 mg/dL Normal 0.70-1.30 [facility] Comment on above: Performed By: #### C BC, BMP #### [place] [address] [place] Erythrocyte distribution wid th [Ratio] by Automated countOrdered By: Yogesh Becker on 10-23-2023 Erythrocyte distribution width (RBC) [Ratio] 14.3 % Normal 12.0-14.8 [facility] Comment on above: Performed By: #### B MP, CBC #### [facility] [address] [place] [address] [place] Erythrocytes [#/volume] in B lood by Automated countOrdered By: Yogesh Becker on 10-23-2023 RBC (Bld) [#/Vol] 5.01 10*6/uL Normal 3.90-5.60 [facility] Comment on above: Performed By: #### B MP, CBC #### [address] Glucose [Mass/volume] in Ser um or PlasmaOrdered By: Yogesh Becker on 10-23-2023 Glucose [Mass/Vol] 105 mg/dL High 70-100 [facility] Comment on above: ADA recommended refe rence rangeRandom Glucose Reference Range is dependent on time and content of last meal. Glucose of more than 200 mg/dL in a nonstressed, ambulatory subject supports the diagnosis of Diabetes Mellitus. Result Comment: [place] om Glucose Reference Range is dependent on time and content of last meal. Glucose of more than 200 mg/dL in a nonstressed, ambulatory subject supports the diagnosis of Diabetes Mellitus. ADA recommended reference range Performed By: #### C BC, BMP #### [address] Hematocrit [Volume Fraction] of Blood by Automated countOrdered By: Yogesh Becker on 10-23-2023 Hematocrit (Bld) [Volume fraction] 48.1 % Normal 38.8-50.0 [facility] Comment on above: Performed By: #### B MP, CBC #### [place] [address] [place] Hemoglobin [Mass/volume] in BloodOrdered By: Yogesh Becker on 10-23-2023 Hemoglobin (Bld) [Mass/Vol] 16.2 g/dL Normal 13.0-17.0 [facility] Comment on above: Performed By: #### B MP, CBC #### [place] [address] [place] Leukocytes [#/volume] correc charanjit for nucleated erythrocytes in Blood by Automated counOrdered By: Yogesh Becker on 10-23-2023 WBC corrected for nucl RBC Auto (Bld) [#/Vol] 4.9 10*3/uL 4.1-10.5 [facility] Leukocytes [#/volume] in Blo od by Automated countOrdered By: Yogesh Becker on 10-23-2023 WBC (Bld) [#/Vol] 4.9 10*3/uL Normal 4.1-10.5 [facility] Comment on above: Performed By: #### B MP, CBC #### [facility] [address] [place] [address] [place] Lymphocytes [#/volume] in Bl ood by Automated countOrdered By: Yogesh Becker on 10-23-2023 Lymphocytes (Bld) [#/Vol] 1.3 10*3/uL Normal 1.00-4.8 [facility] Comment on above: Performed By: #### B MP, CBC #### [facility] [address] [place] [address] [place] Lymphocytes/100 leukocytes i n Blood by Automated countOrdered By: Yogesh Becker on 10-23-2023 Lymphocytes/100 WBC (Bld) 26.8 % Normal . [facility] Comment on above: Performed By: #### B MP, CBC #### [facility] [address] [place] [address] [place] MCH [Entitic mass] by Automa charanjit countOrdered By: Yogesh Becker on 10-23-2023 MCH (RBC) [Entitic mass] 32.4 pg Normal 27.5-35.2 [facility] Comment on above: Performed By: #### B MP, CBC #### [facility] [address] [place] [address] MCHC Auto (RBC) [Mass/Vol]Or dered By: Yogesh Becker on 10-23-2023 MCHC (RBC) [Mass/Vol] 33.8 g/dL 32.5-35.6 [facility] MCV [Entitic volume] by Auto mated countOrdered By: Yogesh Becker on 10-23-2023 MCV (RBC) [Entitic vol] 96.0 fL Normal 83.5-101 [facility] Comment on above: Performed By: #### B MP, CBC #### [facility] [address] Neutrophils [#/volume] in Bl ood by Automated countOrdered By: Yogesh Becker on 10-23-2023 Neutrophils (Bld) [#/Vol] 2.9 10*3/uL Normal 1.8-7.7 [facility] Comment on above: Performed By: #### B MP, CBC #### [address] No Panel InformationOrdered By: Yogesh Becker on 10-23-2023 Estimated GFR (CKD-EPI) > 60.0 mL/Min [facility] Creatinine Clearance (Chem N/A [facility] Nucleated erythrocytes [Pres ence] in Blood by Automated countOrdered By: Yogesh Becker on 10-23-2023 Nucleated RBC Auto Ql (Bld) 0.1 /100{WBC} 0-0.5 [facility] Platelet mean volume [Entiti c volume] in Blood by Automated countOrdered By: Yogesh Becker on 10-23-2023 Platelet mean volume (Bld) [Entitic vol] 8.4 fL Normal 6.6-10.1 [facility] Comment on above: Performed By: #### B MP, CBC #### [facility] [address] [place] [address] Platelets [#/volume] in Bloo d by Automated countOrdered By: Yogesh Becker on 10-23-2023 Platelets (Bld) [#/Vol] 173 10*3/uL Normal 150-450 [facility] Comment on above: Performed By: #### B MP, CBC #### [address] Potassium [Moles/volume] in Serum or PlasmaOrdered By: Yogesh Becker on 10-23-2023 Potassium [Moles/Vol] 4.5 mmol/L Normal 3.5-5.1 [facility] Comment on above: Performed By: #### C BC, BMP #### [facility] [address] Serum or plasma anion gap de terminationOrdered By: Yogesh Becker on 10-23-2023 Anion gap [Moles/Vol] 9.7 mmol/L Normal 6.0-15.0 [facility] Comment on above: Performed By: #### C BC, BMP #### [facility] [address] [place] [address] [place] Sodium [Moles/volume] in Ser um or PlasmaOrdered By: Yogesh Becker on 10-23-2023 Sodium [Moles/Vol] 139 mmol/L Normal 136-145 [facility] Comment on above: Performed By: #### C BC, BMP #### [facility] [address] Urea nitrogen [Mass/volume] in Serum or PlasmaOrdered By: Yogesh Becker on 10-23-2023 Urea nitrogen [Mass/Vol] 18 mg/dL Normal 7-25 [facility] Comment on above: Performed By: #### C BC, BMP #### [facility] [address] Amphetamine Screen Ql (U)Ord ered By: Giuseppe Desouza on 10-02-2023 Amphetamines Ql (U) Negative Negative [facility] Barbiturates [Presence] in U rine by Screen methodOrdered By: Giuseppe Desouza on 10-02-2023 Barbiturates Screen Ql (U) Negative Negative [facility] Benzodiazepines Screen Ql (U )Ordered By: Giuseppe Desouza on 10-02-2023 Benzodiazepines Ql (U) Positive Negative [facility] Benzoylecgonine [Presence] i n Urine by Screen methodOrdered By: Giuseppe Desouza on 10-02-2023 Benzoylecgonine Screen Ql (U) Positive Negative [facility] Cannabinoids [Presence] in U rine by Screen methodOrdered By: Giuseppe Desouza on 10-02-2023 Cannabinoids Screen Ql (U) Positive Negative [facility] Comment on above: These are unconfirme d results and should not be used for legal purposes. Drug Cut-Off Concentration: AMPH 1000 ng/mL ZE 200 ng/mL DUANE 200 ng/mL COCM 300 ng/mL OP 300 ng/mL PCP 25 ng/mL THC 20 ng/mL Capillary blood glucose ezra urement by glucometer (mass/volume)Ordered By: Yogesh Becker on 10-02-2023 Glucose [Mass/Vol] 290 mg/dL Normal [facility] Comment on above: Random Glucose Refer ence Range is dependent on time and content of last meal. Glucose of more than 200 mg/dL in a nonstressed, ambulatory subject supports the diagnosis of Diabetes Mellitus. Result Comment: [place] om Glucose Reference Range is dependent on time and content of last meal. Glucose of more than 200 mg/dL in a nonstressed, ambulatory subject supports the diagnosis of Diabetes Mellitus. Performed By: #### C BC, BMP #### [address] Drug Screen,Urineon 10-02-20 Amphetamine Screen,Urine Negative Normal Negative [facility] Comment on above: Performed By: #### T SH3, [id number] #### [facility] [address] [place] [address] [place] #### METH #### [facility] , Barbiturate Screen,Urine Negative Normal Negative [facility] Comment on above: Performed By: #### T SH3, [id number] #### [place] [address] [place] #### METH #### [facility] , Benzodiazepines Screen,Urine Positive High Negative [facility] Comment on above: Performed By: #### T SH3, [id number] #### [facility] [address] [place] [address] [place] #### METH #### [facility] , Cannabinoid Screen,Urine Positive High Negative [facility] Comment on above: Result Comment: Thes e are unconfirmed results and should not be used for legal purposes. Drug Cut-Off Concentration: AMPH 1000 ng/mL ZE 200 ng/mL DUANE 200 ng/mL COCM 300 ng/mL OP 300 ng/mL PCP 25 ng/mL THC 20 ng/mL PERFORMED BY: [place] [address] PATHOLOGIST [employer] CLEVE CANDELARIA M.D. Performed By: #### T SH3, [id number] #### [facility] [address] [place] [address] #### METH #### [facility] , Cocaine Screen,Urine Positive High Negative [facility] Comment on above: Performed By: #### T SH3, [id number] #### [address] #### METH #### [facility] , Opiate Screen,Urine Negative Normal Negative [facility] Comment on above: Performed By: #### T SH3, [id number] #### [address] #### METH #### [facility] , Phencyclidine Screen,Urine Negative Normal Negative [facility] Comment on above: Performed By: #### T SH3, [id number] #### [address] #### METH #### [facility] , Glucose Poct Glucometerson 1 12-03-2022 Commemt1 Glu2: Cleaned Meter Normal [facility] Comment on above: Result Comment: PERF ORMED BY: [place] [address] PATHOLOGIST [employer] CLEVE CANDELARIA M.D. Performed By: #### C BC, BMP #### [address] No Panel InformationOrdered By: Yogesh Becker on 10-02-2023 Bedside Glucose Comment Glu2: cleaned meter [facility] Opiates [Presence] in Urine by Screen methodOrdered By: Giuseppe Desouza on 10-02-2023 Opiates Screen Ql (U) Negative Negative [facility] Phencyclidine Screen Ql (U)O rdered By: Giuseppe Desouza on 10-02-2023 Phencyclidine Ql (U) Negative Negative [facility] POC Glucose Randomon 023 Glucose [Mass/Vol] 192 mg/dL High 70-99 [facility] Comment on above: Performed By: #### C [id number] #### [facility] [address] [place] [address] Glucose [Mass/Vol] 246 mg/dL High 70-99 [facility] Comment on above: Performed By: #### C [id number] #### [address] [address] Automated basophil %Ordered By: Yogesh Becker on 09-23-2023 Basophils/100 WBC (Bld) 0.6 % Normal . [facility] Comment on above: Performed By: #### B MP, CBC #### [facility] [address] Automated basophil countOrde red By: Yogesh Becker on 09-23-2023 Basophils (Bld) [#/Vol] 0.1 10*3/uL Normal 0.0-0.2 [facility] Comment on above: Result Comment: PERF ORMED BY: [place] [address] PATHOLOGIST [employer] CLEVE CANDELARIA M.D. Performed By: #### B MP, CBC #### [facility] [address] Automated blood monocyte cou ntOrdered By: Yogesh Becker on 09-23-2023 Monocytes (Bld) [#/Vol] 0.6 10*3/uL Normal 0.0-0.8 [facility] Comment on above: Performed By: #### B MP, CBC #### [facility] [address] Automated eosinophil %Ordere d By: Yogesh Becker on 09-23-2023 Eosinophils/100 WBC (Bld) 0.1 % Normal . [facility] Comment on above: Performed By: #### B MP, CBC #### [address] Automated eosinophil countOr dered By: Yogesh Becker on 09-23-2023 Eosinophils (Bld) [#/Vol] 0.0 10*3/uL Normal 0.0-0.45 [facility] Comment on above: Performed By: #### B MP, CBC #### [address] Automated monocyte %Ordered By: Yogesh Becker on 09-23-2023 Monocytes/100 WBC (Bld) 4.6 % Normal . [facility] Comment on above: Performed By: #### B MP, CBC #### [address] Automated neutrophil %Ordere d By: Yogesh Becker on 09-23-2023 Neutrophils/100 WBC (Bld) 81.4 % Normal . [facility] Comment on above: Performed By: #### B MP, CBC #### [address] Basic Metabolic Panelon 08-28 GFR/1.73 sq M.predicted MDRD (S/P/Bld) [Vol rate/Area] mL/min/{1.73_m2} Normal [facility] Comment on above: Performed By: #### B MP, CBC #### [address] Calcium [Mass/volume] in Ser um or PlasmaOrdered By: Yogesh Becker on 09-23-2023 Calcium [Mass/Vol] 9.3 mg/dL Normal 8.6-10.3 [facility] Comment on above: Result Comment: PERF ORMED BY: [place] [address] PATHOLOGIST [employer] CLEVE CANDELARIA M.D. Performed By: #### B MP, CBC #### [address] Carbon dioxide, total [Moles /volume] in Serum or PlasmaOrdered By: Yogesh Becker on 09-23-2023 CO2 [Moles/Vol] 30.6 mmol/L Normal 21.0-31.0 [facility] Comment on above: Performed By: #### B MP, CBC #### [facility] [address] [place] [address] Chloride [Moles/volume] in S raffi or PlasmaOrdered By: Yogesh Becker on 09-23-2023 Chloride [Moles/Vol] 96 mmol/L Low 98-107 [facility] Comment on above: Performed By: #### B MP, CBC #### [address] Complete Blood Count Auto Di ffon 09-23-2023 Mean Corpuscular HGB Conc 33.4 g/dL Normal 32.5-35.6 [facility] Comment on above: Performed By: #### B MP, CBC #### [address] NRBC% 0.0 /100{WBC} Normal 0-0.5 [facility] Comment on above: Performed By: #### B MP, CBC #### [address] Creatinine [Mass/volume] in Serum or PlasmaOrdered By: Yogesh Becker on 09-23-2023 Creatinine [Mass/Vol] 1.01 mg/dL Normal 0.70-1.30 [facility] Comment on above: Performed By: #### B MP, CBC #### [place] [address] [place] ECG 12 lead ECGon 09-23-2023 ECG 12 lead ECG [facility] Main [place] [address] [place] [address] Electrocardiograph Report Signed Patient: Koko Meier MR#: [id number] : 1960 Acct:[id number] Age/Sex: 62 / M ADM Date: 09/23/23 Loc: Room: Type: REG CLI Attending Dr: Yogesh Becker MD Ordering Provider: [...] axis shifted right Confirmed by JOSEY MATUTE [facility] ([id number] on 09/23/2023 10:29:43 PM Referred By: OLEGARIO BECKER Electronically Signed By:KIRSTIE CERVANTES MD [facility] Transcribed By: MUS Signed By Barron Cervantes MD 09/23/232228 Normal [facility] Erythrocyte distribution wid th [Ratio] by Automated countOrdered By: Yogesh Becker on 09-23-2023 Erythrocyte distribution width (RBC) [Ratio] 13.9 % Normal 12.0-14.8 [facility] Comment on above: Performed By: #### B MP, CBC #### [facility] [address] Erythrocytes [#/volume] in B lood by Automated countOrdered By: Yogesh Becker on 09-23-2023 RBC (Bld) [#/Vol] 4.87 10*6/uL Normal 3.90-5.60 [facility] Comment on above: Performed By: #### B MP, CBC #### [facility] [address] [place] [id number] [place] Glucose [Mass/volume] in Ser um or PlasmaOrdered By: Yogseh Becker on 09-23-2023 Glucose [Mass/Vol] 412 mg/dL High 70-100 [facility] Comment on above: ADA recommended refe rence rangeRandom Glucose Reference Range is dependent on time and content of last meal. Glucose of more than 200 mg/dL in a nonstressed, ambulatory subject supports the diagnosis of Diabetes Mellitus. Result Comment: [facility] Glucose Reference Range is dependent on time and content of last meal. Glucose of more than 200 mg/dL in a nonstressed, ambulatory subject supports the diagnosis of Diabetes Mellitus. ADA recommended reference range Performed By: #### B MP, CBC #### [address] Hematocrit [Volume Fraction] of Blood by Automated countOrdered By: Yogesh Becker on 09-23-2023 Hematocrit (Bld) [Volume fraction] 47.2 % Normal 38.8-50.0 [facility] Comment on above: Performed By: #### B MP, CBC #### [address] Hemoglobin [Mass/volume] in BloodOrdered By: Yogesh Becker on 09-23-2023 Hemoglobin (Bld) [Mass/Vol] 15.7 g/dL Normal 13.0-17.0 [facility] Comment on above: Performed By: #### B MP, CBC #### [address] Leukocytes [#/volume] correc charanjit for nucleated erythrocytes in Blood by Automated counOrdered By: Yogesh Becker on 09-23-2023 WBC corrected for nucl RBC Auto (Bld) [#/Vol] 12.4 10*3/uL 4.1-10.5 [facility] Leukocytes [#/volume] in Blo od by Automated countOrdered By: Yogesh Becker on 09-23-2023 WBC (Bld) [#/Vol] 12.4 10*3/uL High 4.1-10.5 [facility] Comment on above: Performed By: #### B MP, CBC #### [place] [address] [place] Lymphocytes [#/volume] in Bl ood by Automated countOrdered By: Yogesh Becker on 09-23-2023 Lymphocytes (Bld) [#/Vol] 1.7 10*3/uL Normal 1.00-4.8 [facility] Comment on above: Performed By: #### B MP, CBC #### [address] Lymphocytes/100 leukocytes i n Blood by Automated countOrdered By: Yogesh Becker on 09-23-2023 Lymphocytes/100 WBC (Bld) 13.3 % Normal . [facility] Comment on above: Performed By: #### B MP, CBC #### [facility] [address] [place] [address] MCH [Entitic mass] by Automa charanjit countOrdered By: Yogesh Becker on 09-23-2023 MCH (RBC) [Entitic mass] 32.3 pg Normal 27.5-35.2 [facility] Comment on above: Performed By: #### B MP, CBC #### [address] MCHC Auto (RBC) [Mass/Vol]Or dered By: Yogesh Becker on 09-23-2023 MCHC (RBC) [Mass/Vol] 33.4 g/dL 32.5-35.6 [facility] MCV [Entitic volume] by Auto mated countOrdered By: Yogesh Becker on 09-23-2023 MCV (RBC) [Entitic vol] 96.9 fL Normal 83.5-101 [facility] Comment on above: Performed By: #### B MP, CBC #### [address] Neutrophils [#/volume] in Bl ood by Automated countOrdered By: Yogesh Becker on 09-23-2023 Neutrophils (Bld) [#/Vol] 10.1 10*3/uL High 1.8-7.7 [facility] Comment on above: Performed By: #### B MP, CBC #### [address] No Panel InformationOrdered By: Yogesh Becker on 09-23-2023 Estimated GFR (CKD-EPI) > 60.0 mL/Min [facility] Creatinine Clearance (Chem N/A [facility] Nucleated erythrocytes [Pres ence] in Blood by Automated countOrdered By: Yogesh Becker on 09-23-2023 Nucleated RBC Auto Ql (Bld) 0.0 /100{WBC} 0-0.5 [facility] Platelet mean volume [Entiti c volume] in Blood by Automated countOrdered By: Yogesh Becker on 09-23-2023 Platelet mean volume (Bld) [Entitic vol] 8.3 fL Normal 6.6-10.1 [facility] Comment on above: Performed By: #### B MP, CBC #### [place] [address] [place] Platelets [#/volume] in Bloo d by Automated countOrdered By: Yogesh Becker on 09-23-2023 Platelets (Bld) [#/Vol] 203 10*3/uL Normal 150-450 [facility] Comment on above: Performed By: #### B MP, CBC #### [facility] [address] [place] [address] [place] Potassium [Moles/volume] in Serum or PlasmaOrdered By: Yogesh Becker on 09-23-2023 Potassium [Moles/Vol] 4.7 mmol/L Normal 3.5-5.1 [facility] Comment on above: Performed By: #### B MP, CBC #### [address] Serum or plasma anion gap de terminationOrdered By: Yogesh Becker on 09-23-2023 Anion gap [Moles/Vol] 13.1 mmol/L Normal 6.0-15.0 [facility] Comment on above: Performed By: #### B MP, CBC #### [place] [address] [place] Sodium [Moles/volume] in Ser um or PlasmaOrdered By: Yogesh Becker on 09-23-2023 Sodium [Moles/Vol] 135 mmol/L Low 136-145 [facility] Comment on above: Performed By: #### B MP, CBC #### [facility] [address] [place] [address] [place] Urea nitrogen [Mass/volume] in Serum or PlasmaOrdered By: Yogesh Becker on 09-23-2023 Urea nitrogen [Mass/Vol] 28 mg/dL High 05-20 [facility] Comment on above: Performed By: #### B MP, CBC #### [facility] [address] [place] [address] [facility] [address] ABDOMEN PELVIS W IV CONTR [...] spine 5V*on 07-27 XR cervical spine 5V* [facility] Main [address] [address] XRay Report Signed Patient: Koko Meier MR#: [id number] : 1960 Acct:[id number] Age/Sex: 62 / M ADM Date: 08/11/23 Loc: [place] Room: Type: [facility] Attending Dr: Savanna Mcclain MD Copies [...] Koko Hernandez M.D.08/11/2023 5:00 PM Dictation Location: [place] [address] Transcribed By: [facility] 08/11/231699 Dictated By: Koko Hernandez DO 08/11/23 8056 Signed By: 08/11/231699 Normal [facility] XR thoracic spine 3V*on 07-27 XR thoracic spine 3V* [facility] Main [address] [address] XRay Report Signed Patient: Koko Meier MR#: [id number] : 1960 Acct:[id number] Age/Sex: 62 / M ADM Date: 08/11/23 Loc: [place] Room: Type: [facility] CLI Attending Dr: Savanna Mcclain MD [...] Koko Hernandez M.D.08/11/2023 5:01 PM Dictation Location: [place] [address] Transcribed By: [facility] 08/11/23 170 Dictated By: Koko Hernandez DO 08/11/231699 Signed By: 08/11/23 170 Normal [facility] XR lumbar spine 6V w bending on 08-01-2023 XR lumbar spine 6V w bending [facility] Main [address] [place] [address] XRay Report Signed Patient: Koko Meier MR#: [id number] : 1960 Acct:[id number] Age/Sex: 62 / M ADM Date: 08/01/23 Loc: XD Room: Type: [facility] CLI Attending Dr: Josh Melvin DO [...] Monika Eastman M.D.08/01/2023 1:06 PM Dictation Location: [facility] Transcribed By: [facility] 08/01/23 1306 Dictated By: Monika Eastman MD 08/01/23 1210 Signed By: 08/01/23 1306 Normal [facility] A1C with Estimated Average G helenchely 04-21-2023 Glucose [Mass/Vol] 197 mg/dL Normal [facility] Comment on above: Result Comment: PERF ORMED BY: [address] [place] [address] PATHOLOGIST [employer] CLEVE CANDELARIA M.D. Performed By: #### C AMAIRANI, BMP #### [facility] [address] [place] [address] [place] Alanine aminotransferase [En zymatic activity/volume] in Serum or PlasmaOrdered By: Josh Melvin on 04-21-2023 ALT [Catalytic activity/Vol] 19 U/L Normal 7- [facility] Comment on above: Order Comment: PT FA STED 12 HOURS Performed By: #### C BC, BMP #### [facility] [address] [place] [id number] [place] Albumin [Mass/volume] in Ser um or Plasma by Bromocresol green (BCG) dye binding methoOrdered By: Josh Bunting on 04-21-2023 Albumin BCG dye [Mass/Vol] 4.2 g/dL 3.5-5.7 [facility] Alkaline phosphatase [Enzyma tic activity/volume] in Serum or PlasmaOrdered By: Josh Bunting on 04-21-2023 ALP [Catalytic activity/Vol] 67 U/L Normal 34-104 [facility] Comment on above: Order Comment: PT FA STED 12 HOURS Performed By: #### C BC, BMP #### [address] Aspartate aminotransferase [ Enzymatic activity/volume] in Serum or PlasmaOrdered By: Josh Bunting on 04-21-2023 AST [Catalytic activity/Vol] 16 U/L Normal 13-39 [facility] Comment on above: Order Comment: PT FA STED 12 HOURS Performed By: #### C AMAIRANI, BMP #### [address] Automated basophil %Ordered By: Josh Bunting on 04-21-2023 Basophils/100 WBC (Bld) 0.9 % Normal . [facility] Comment on above: Performed By: #### C BC, BMP #### [address] Automated basophil countOrde red By: Josh Bunting on 04-21-2023 Basophils (Bld) [#/Vol] 0.1 10*3/uL Normal 0.0-0.2 [facility] Comment on above: Result Comment: PERF ORMED BY: [place] [address] PATHOLOGIST [employer] CLEVE CANDELARIA M.D. Performed By: #### C BC, BMP #### [address] Automated blood monocyte cou ntOrdered By: Josh Bunting on 04-21-2023 Monocytes (Bld) [#/Vol] 0.4 10*3/uL Normal 0.0-0.8 [facility] Comment on above: Performed By: #### C BC, BMP #### [address] Automated eosinophil %Ordere d By: Josh Bunting on 04-21-2023 Eosinophils/100 WBC (Bld) 2.1 % Normal . [facility] Comment on above: Performed By: #### C BC, BMP #### [address] Automated eosinophil countOr dered By: Josh Bunting on 04-21-2023 Eosinophils (Bld) [#/Vol] 0.2 10*3/uL Normal 0.0-0.45 [facility] Comment on above: Performed By: #### C BC, BMP #### [address] Automated monocyte %Ordered By: Josh Bunting on 04-21-2023 Monocytes/100 WBC (Bld) 5.5 % Normal . [facility] Comment on above: Performed By: #### C BC, BMP #### [address] Automated neutrophil %Ordere d By: Josh Bunting on 04-21-2023 Neutrophils/100 WBC (Bld) 65.2 % Normal . [facility] Comment on above: Performed By: #### C BC, BMP #### [address] Bilirubin.total [Mass/volume ] in Serum or PlasmaOrdered By: Josh Bunting on 04-21-2023 Bilirubin [Mass/Vol] 0.4 mg/dL Normal 0.3-1.0 [facility] Comment on above: Order Comment: PT FA STED 12 HOURS Performed By: #### C BC, BMP #### [address] Calcium [Mass/volume] in Ser um or PlasmaOrdered By: Josh Bunting on 04-21-2023 Calcium [Mass/Vol] 9.3 mg/dL Normal 8.6-10.3 [facility] Comment on above: Order Comment: PT FA STED 12 HOURS Performed By: #### C BC, BMP #### [facility] [address] [place] [address] [place] Carbon dioxide, total [Moles /volume] in Serum or PlasmaOrdered By: Josh Bunting on 04-21-2023 CO2 [Moles/Vol] 30.3 mmol/L Normal 21.0-31.0 [facility] Comment on above: Order Comment: PT FA STED 12 HOURS Performed By: #### C BC, BMP #### [facility] [address] [place] [id number] [place] Chloride [Moles/volume] in S raffi or PlasmaOrdered By: Josh Bunting on 04-21-2023 Chloride [Moles/Vol] 99 mmol/L Normal 98-107 [facility] Comment on above: Order Comment: PT FA STED 12 HOURS Performed By: #### C BC, BMP #### [facility] [address] [place] [address] [place] Cholesterol [Mass/volume] in Serum or PlasmaOrdered By: Josh Bunting on 04-21-2023 Cholesterol [Mass/Vol] 300 mg/dL High 140-200 [facility] Comment on above: Chol less than 200 m g/dl low riskChol 201-239 mg/dl borderline riskChol 240 mg/dl and greater high risk Order Comment: PT FA STED 12 HOURS Result Comment: Chol less than 200 mg/dl low risk Chol 201-239 mg/dl borderline risk Chol 240 mg/dl and greater high risk Performed By: #### C BC, BMP #### [facility] [address] [place] [id number] [place] Cholesterol in LDL Calc [Mas s/Vol]Ordered By: Josh Bunting on 04-21-2023 Cholesterol in LDL [Mass/Vol] 207 mg/dL 0-100 [facility] Comment on above: LDL ATP III CLASSIFI CATIONLDL less than 100 mg/dL OptimalLDL 100-129 mg/dL Near or above optimalLDL 130-159 mg/dL Borderline highLDL 160-189 mg/dL HighLDL greater than 189 mg/dL Very high Cholesterol in VLDL Calc [Ma ss/Vol]Ordered By: Josh Bunting on 06-26-2023 Cholesterol in VLDL [Mass/Vol] 32 mg/dL [facility] Complete Blood Count Auto Di ffon 04-21-2023 Mean Corpuscular HGB Conc 34.2 g/dL Normal 32.5-35.6 [facility] Comment on above: Performed By: #### C BC, BMP #### [address] NRBC% 0.0 /100{WBC} Normal 0-0.5 [facility] Comment on above: Performed By: #### C BC, BMP #### [address] Comprehensive Metabolic Pane brennen 04-21-2023 Albumin [Mass/Vol] 4.2 g/dL Normal 3.5-5.7 [facility] Comment on above: Order Comment: PT FA STED 12 HOURS Performed By: #### C BC, BMP #### [address] GFR/1.73 sq M.predicted MDRD (S/P/Bld) [Vol rate/Area] mL/min/{1.73_m2} Normal [facility] Comment on above: Order Comment: PT FA STED 12 HOURS Performed By: #### C BC, BMP #### [address] Creatinine [Mass/volume] in Serum or PlasmaOrdered By: Josh Melvin on 04-21-2023 Creatinine [Mass/Vol] 0.90 mg/dL Normal 0.70-1.30 [facility] Comment on above: Order Comment: PT FA STED 12 HOURS Performed By: #### C BC, BMP #### [place] [address] [place] Erythrocyte distribution wid th [Ratio] by Automated countOrdered By: Josh Melvin on 04-21-2023 Erythrocyte distribution width (RBC) [Ratio] 15.0 % High 12.0-14.8 [facility] Comment on above: Performed By: #### C BC, BMP #### [place] [address] [place] Erythrocytes [#/volume] in B lood by Automated countOrdered By: Josh Melvin on 04-21-2023 RBC (Bld) [#/Vol] 5.13 10*6/uL Normal 3.90-5.60 [facility] Comment on above: Performed By: #### C AMAIRANI, BMP #### [facility] [address] [place] [address] [facility] Glucose [Mass/volume] in Ser um or PlasmaOrdered By: Josh Melvin on 04-21-2023 Glucose [Mass/Vol] 149 mg/dL High 70-100 [facility] Comment on above: ADA recommended refe rence rangeRandom Glucose Reference Range is dependent on time and content of last meal. Glucose of more than 200 mg/dL in a nonstressed, ambulatory subject supports the diagnosis of Diabetes Mellitus. Order Comment: PT FA STED 12 HOURS Result Comment: [place] [facility] Glucose Reference Range is dependent on time and content of last meal. Glucose of more than 200 mg/dL in a nonstressed, ambulatory subject supports the diagnosis of Diabetes Mellitus. ADA recommended reference range Performed By: #### C AMAIRANI, BMP #### [facility] [address] [place] [address] [facility] Glucose mean value [Mass/vol ume] in Blood Estimated from glycated hemoglobinOrdered By: Josh Melvin on 04-21-2023 Average glucose Estimated from glycated hemoglobin (Bld) [Mass/Vol] 197 mg/dL [facility] Hematocrit [Volume Fraction] of Blood by Automated countOrdered By: Josh Melvin on 04-21-2023 Hematocrit (Bld) [Volume fraction] 48.8 % Normal 38.8-50.0 [facility] Comment on above: Performed By: #### C BC, BMP #### [facility] [address] [place] [address] [facility] Hemoglobin A1c percentageOrd ered By: Josh Melvin on 04-21-2023 HbA1c (Bld) [Mass fraction] 8.5 % High 4.3-5.6 [facility] Comment on above: Increased risk for d iabetes: 5.7 - 6.4diabetes: >6.4glycemic control for adults with diabetes: <7.0 Result Comment: Incr eased risk for diabetes: 5.7 - 6.4 diabetes: >6.4 glycemic control for adults with diabetes: <7.0 Performed By: #### C AMAIRANI, BMP #### [address] Hemoglobin [Mass/volume] in BloodOrdered By: Josh Melvni on 04-21-2023 Hemoglobin (Bld) [Mass/Vol] 16.7 g/dL Normal 13.0-17.0 [facility] Comment on above: Performed By: #### C AMAIRANI, BMP #### [address] Leukocytes [#/volume] correc charanjit for nucleated erythrocytes in Blood by Automated counOrdered By: Josh Melvin on 04-21-2023 WBC corrected for nucl RBC Auto (Bld) [#/Vol] 7.1 10*3/uL 4.1-10.5 [facility] Leukocytes [#/volume] in Blo od by Automated countOrdered By: Josh Melvin on 04-21-2023 WBC (Bld) [#/Vol] 7.1 10*3/uL Normal 4.1-10.5 [facility] Comment on above: Performed By: #### C AMAIRANI, BMP #### [address] Lipid Panelon 04-21-2023 LDL Cholesterol,Calculate d 207 mg/dL High 0-100 [facility] Comment on above: Order Comment: PT FA STED 12 HOURS Result Comment: LDL ATP III CLASSIFICATION LDL less than 100 mg/dL Optimal LDL 100-129 mg/dL Near or above optimal LDL 130-159 mg/dL Borderline high LDL 160-189 mg/dL High LDL greater than 189 mg/dL Very high Performed By: #### C AMAIRANI, BMP #### [address] Triglyceride w/Reflex 162 mg/dL High 0-149 [facility] Comment on above: Order Comment: PT FA STED 12 HOURS Result Comment: TRIG ATP III CLASSIFICATION TRIG less than 150 mg/dL Normal TRIG 150-199 mg/dL Borderline high TRIG 200-500 mg/dL High TRIG greater than 500 mg/dL Very high Standard traceable to the Center for Disease Conrtrol and Prevention (CDC) test method. Performed By: #### C AMAIRANI, BMP #### [address] VLDL CHOLESTEROL 32 mg/dL Normal [facility] Comment on above: Order Comment: PT FA STED 12 HOURS Performed By: #### C AMAIRANI, BMP #### [address] Lymphocytes [#/volume] in Bl ood by Automated countOrdered By: Josh Bunting on 04-21-2023 Lymphocytes (Bld) [#/Vol] 1.9 10*3/uL Normal 1.00-4.8 [facility] Comment on above: Performed By: #### C AMAIRANI, BMP #### [address] Lymphocytes/100 leukocytes i n Blood by Automated countOrdered By: Josh Bunting on 04-21-2023 Lymphocytes/100 WBC (Bld) 26.3 % Normal . [facility] Comment on above: Performed By: #### C AMAIRANI, BMP #### [address] MCH [Entitic mass] by Automa charanjit countOrdered By: Josh Bunting on 04-21-2023 MCH (RBC) [Entitic mass] 32.5 pg Normal 27.5-35.2 [facility] Comment on above: Performed By: #### C AMAIRANI, BMP #### [address] MCHC Auto (RBC) [Mass/Vol]Or dered By: Josh Bunting on 04-21-2023 MCHC (RBC) [Mass/Vol] 34.2 g/dL 32.5-35.6 [facility] MCV [Entitic volume] by Auto mated countOrdered By: Josh Bunting on 04-21-2023 MCV (RBC) [Entitic vol] 95.2 fL Normal 83.5-101 [facility] Comment on above: Performed By: #### C AMAIRANI, BMP #### [address] Neutrophils [#/volume] in Bl ood by Automated countOrdered By: Josh Bunting on 04-21-2023 Neutrophils (Bld) [#/Vol] 4.6 10*3/uL Normal 1.8-7.7 [facility] Comment on above: Performed By: #### C AMAIRANI, BMP #### [address] No Panel InformationOrdered By: Josh Bunting on 04-21-2023 Estimated GFR (CKD-EPI) > 60.0 mL/Min [facility] Creatinine Clearance (Chem N/A [facility] Nucleated erythrocytes [Pres ence] in Blood by Automated countOrdered By: Josh Bunting on 04-21-2023 Nucleated RBC Auto Ql (Bld) 0.0 /100{WBC} 0-0.5 [facility] Platelet mean volume [Entiti c volume] in Blood by Automated countOrdered By: Josh Bunting on 04-21-2023 Platelet mean volume (Bld) [Entitic vol] 8.6 fL Normal 6.6-10.1 [facility] Comment on above: Performed By: #### C AMAIRANI, BMP #### [address] Platelets [#/volume] in Bloo d by Automated countOrdered By: Josh Bunting on 04-21-2023 Platelets (Bld) [#/Vol] 200 10*3/uL Normal 150-450 [facility] Comment on above: Performed By: #### C AMAIRANI, BMP #### [address] Potassium [Moles/volume] in Serum or PlasmaOrdered By: Josh Bunting on 04-21-2023 Potassium [Moles/Vol] 4.6 mmol/L Normal 3.5-5.1 [facility] Comment on above: Order Comment: PT FA STED 12 HOURS Performed By: #### C AMAIRANI, BMP #### [address] [place] [address] [place] Protein [Mass/volume] in Ser um or PlasmaOrdered By: Josh Bunting on 04-21-2023 Protein [Mass/Vol] 6.4 g/dL Normal 6.4-8.9 [facility] Comment on above: Order Comment: PT FA STED 12 HOURS Performed By: #### C AMAIRANI, BMP #### [facility] [address] [place] [address] Serum globulin measurement b y calculation (mass/volume)Ordered By: Josh Bunting on 04-21-2023 Globulin (S) [Mass/Vol] 2.2 g/dL [facility] Comment on above: Order Comment: PT FA STED 12 HOURS Performed By: #### C AMAIRANI, BMP #### [address] Serum or plasma albumin/glob ulin mass ratioOrdered By: Josh Bunting on 04-21-2023 Albumin/Globulin [Mass ratio] 1.9 {ratio} [facility] Comment on above: Order Comment: PT FA STED 12 HOURS Performed By: #### C BC, BMP #### [facility] [address] [place] [address] Serum or plasma anion gap de terminationOrdered By: Josh Bunting on 04-21-2023 Anion gap [Moles/Vol] 11.3 mmol/L Normal 6.0-15.0 [facility] Comment on above: Order Comment: PT FA STED 12 HOURS Performed By: #### C AMAIRANI, BMP #### [facility] [address] [place] [address] Serum or plasma high density lipoprotein (HDL) cholesterol measurementOrdered By: Josh Bunting on 04-21-2023 Cholesterol in HDL [Mass/Vol] 61 mg/dL Normal 23- [facility] Comment on above: HDL CHOL ATP-III CLA SSIFICATION Cardiovascular RiskHDL > or equal to 60 mg/dL LOWHDL < 40 mg/dL HIGH Order Comment: PT FA STED 12 HOURS Result Comment: HDL CHOL ATP-III CLASSIFICATION Cardiovascular Risk HDL > or equal to 60 mg/dL LOW HDL < 40 mg/dL HIGH Performed By: #### C BC, BMP #### [facility] [address] [place] [address] Serum or plasma total choles terol/high density lipoprotein (HDL) cholesterol mass ratOrdered By: Josh Bunting on 04-21-2023 Cholesterol.total/Cho lesterol in HDL [Mass ratio] 4.9 {ratio} Normal <5.0 [facility] Comment on above: Order Comment: PT FA STED 12 HOURS Result Comment: PERF ORMED BY: [place] [address] PATHOLOGIST [employer] CLEVE CANDELARIA M.D. Performed By: #### C AMAIRANI, BMP #### [address] Sodium [Moles/volume] in Ser um or PlasmaOrdered By: Josh Bunting on 04-21-2023 Sodium [Moles/Vol] 136 mmol/L Normal 136-145 [facility] Comment on above: Order Comment: PT FA STED 12 HOURS Performed By: #### C AMAIRANI, BMP #### [address] Triglyceride [Mass/volume] i n Serum or PlasmaOrdered By: Josh Bunting on 04-21-2023 Triglyceride [Mass/Vol] 162 mg/dL 0-149 [facility] Comment on above: TRIG ATP III CLASSIF ICATIONTRIG less than 150 mg/dL NormalTRIG 150-199 mg/dL Borderline highTRIG 200-500 mg/dL High TRIG greater than 500 mg/dL Very highStandard traceable to the Center for Disease Conrtrol and Prevention (CDC) test method. Urea nitrogen [Mass/volume] in Serum or PlasmaOrdered By: Josh Bunting on 04-21-2023 Urea nitrogen [Mass/Vol] 25 mg/dL Normal 7-25 [facility] Comment on above: Order Comment: PT FA STED 12 HOURS Performed By: #### C BC, BMP #### [facility] [address] [place] [address] [place] CNPNon 04-10-2023 [facility] -- NIYAH MEIER ([id number]) 1960 M Date Time Provider Department 04/10/23 [...] Known Allergies) Date Reviewed: 03/26/2023 Reviewed by: Oliev Hui LPN - Fully Assessed Reason for [...] Encounter Status:Closed by KIMBERLI COUCH on 04/15/23 [facility] CNOVon 03-26-2023 CN Office Visit ([facility] ) -- NIYAH MEIER ([id number]) 1960 Date Time Provider Department 03/26/23 11:20 AM DONNY PERALTA [facility] During your visit today, we recorded the following information about you: Pulse Respiration 88/minute 17/minute Donny Peralta APRN.CQ DEVELOPER 03/26/2023 4:15 PM Signed Mr. Meier is [...] 2 to 3 weeks time. Donny Peralta APRN.CQ DEVELOPER CC: Josh Melvin DO Referring Provider: JOSH MELVIN [[id number]] Allergies As of Date: 03/26/2023 (No Known Allergies) Date Reviewed: 03/26/2023 Reviewed by: Olive Hui LPN - Fully Assessed Reason for Visit: Mouth lesion on left side [Other] Primary Visit Diagnosis:Laryngeal candidiasis [B37.89] Other Visit Diagnoses:Glossitis [K14.0] Oral candidiasis [B37.0] Hoarseness of voice [R49.0] History of alcohol abuse [F10.11] Order(s):COMP METABOLIC PANEL [SQCMP] Order #: [id number] FUTURE clotrimazole (MYCELEX) 10 mg trocheUse 1 Bud as instructed four times daily for 14 days.Disp: 56 tabletRfl: 0 Prescriptions as of 03/26/2023 - busPIRone HCl 30 mg tablet TAKE 1 TABLET BY MOUTH THREE TIMES DAILY FOR ANXIETY - celec (more content not included)... Normal [facility] Comprehensive metabolic 2000 panelon 03-26-2023 Albumin [Mass/Vol] 4.4 g/dL Normal 3.9-4.9 [facility] Comment on above: Order Comment: Specshannan guillen Type: BLOOD SPECIMEN Ordering Facility: [facility] Address: [address] [place] [address] Performed By: #### 2 4323-8 #### [facility] CLIA [id number] [address] [place] [address] [place] ALP [Catalytic activity/Vol] 90 U/L Normal 38-113 [facility] Comment on above: Order Comment: Ilana guillen Type: BLOOD SPECIMEN Ordering Facility: [facility] Address: [address] [place] [address] Performed By: #### 2 4323-8 #### [facility] CLIA [id number] [address] [place] [address] [place] ALT [Catalytic activity/Vol] 22 U/L Normal 10-54 [facility] Comment on above: Order Comment: Speci men Type: BLOOD SPECIMEN Ordering Facility: [facility] Address: [address] Performed By: #### 2 4323-8 #### [facility] CLIA [id number] [address] [place] [address] [place] Anion gap [Moles/Vol] 11 mmol/L Normal 9-18 [facility] Comment on above: Order Comment: Speci men Type: BLOOD SPECIMEN Ordering Facility: [facility] Address: [address] [place] [address] Performed By: #### 2 4323-8 #### [facility] CLIA [id number] [address] [place] [address] [place] AST [Catalytic activity/Vol] 23 U/L Normal 14-40 [facility] Comment on above: Order Comment: Speci men Type: BLOOD SPECIMEN Ordering Facility: [facility] Address: [address] [place] [address] Performed By: #### 2 4323-8 #### [facility] CLIA [id number] [address] [place] [address] [place] Bilirubin [Mass/Vol] 0.4 mg/dL Normal 0.2-1.3 [facility] Comment on above: Order Comment: Speci men Type: BLOOD SPECIMEN Ordering Facility: [facility] Address: [address] [place] [address] Performed By: #### 2 4323-8 #### [facility] CLIA [id number] [address] [place] [address] [place] Calcium [Mass/Vol] 9.6 mg/dL Normal 8.5-10.2 [facility] Comment on above: Order Comment: Speci men Type: BLOOD SPECIMEN Ordering Facility: [facility] Address: [address] Performed By: #### 2 4323-8 #### [facility] CLIA [id number] [address] [place] [address] [place] Chloride [Moles/Vol] 97 mmol/L Normal 97-105 [facility] Comment on above: Order Comment: Speci men Type: BLOOD SPECIMEN Ordering Facility: [facility] Address: [address] Performed By: #### 2 4323-8 #### [facility] CLIA [id number] [address] [place] [address] [place] CO2 [Moles/Vol] 27 mmol/L Normal 22-30 [facility] Comment on above: Order Comment: Speci men Type: BLOOD SPECIMEN Ordering Facility: [facility] Address: [address] Performed By: #### 2 4323-8 #### [facility] CLIA [id number] [address] [place] [address] [place] Creatinine [Mass/Vol] 0.99 mg/dL Normal 0.73-1.22 [facility] Comment on above: Order Comment: Speci men Type: BLOOD SPECIMEN Ordering Facility: [facility] Address: [address] Performed By: #### 2 4323-8 #### [facility] CLIA [id number] [address] [place] [address] [place] ESTIMATED GLOMERULAR FILTRATION RATE 85 mL/min/1.73m??? Normal >=60 [facility] Comment on above: Order Comment: Speci men Type: BLOOD SPECIMEN Ordering Facility: [facility] Address: [address] [place], [place] [address] Result Comment: Neha mated Glomerular Filtration Rate [...] GFR. Performed By: #### 2 4323-8 #### [facility] CLIA [id number] [facility] [place] [address] [place] Glucose [Mass/Vol] 85 mg/dL Normal 74-99 [facility] Comment on above: Order Comment: Ilana guillen Type: BLOOD SPECIMEN Ordering Facility: [facility] Address: [address] [place] [address] Result Comment: The [place] Diabetes Association (ADA) provides guidance for cutoff [...] Standards of Medical Care in Diabetes 2016, [place] Diabetes Association. Diabetes Care. 2016.39(Suppl 1). Performed By: #### 2 4323-8 #### [facility] CLIA [id number] [facility] [place] [address] [place] Potassium [Moles/Vol] 4.5 mmol/L Normal 3.7-5.1 [facility] Comment on above: Order Comment: Ilana guillen Type: BLOOD SPECIMEN Ordering Facility: [facility] Address: [address] [id number] Performed By: #### 2 4323-8 #### [facility] CLIA [id number] [facility] [place] [address] [place] Protein [Mass/Vol] 7.0 g/dL Normal 6.3-8.0 [facility] Comment on above: Order Comment: Speci men Type: BLOOD SPECIMEN Ordering Facility: [facility] Address: [address] [place] [address] Performed By: #### 2 4323-8 #### [facility] CLIA [id number] [address] [place] [address] [place] Sodium [Moles/Vol] 135 mmol/L Low 136-144 [facility] Comment on above: Order Comment: Speci men Type: BLOOD SPECIMEN Ordering Facility: [facility] Address: [address] [place] [address] Performed By: #### 2 4323-8 #### [facility] CLIA [id number] [address] [place] [address] [place] Urea nitrogen [Mass/Vol] 25 mg/dL High 9-24 [facility] Comment on above: Order Comment: Speci men Type: BLOOD SPECIMEN Ordering Facility: [facility] Address: [address] [place] [address] Performed By: #### 2 4323-8 #### [facility] CLIA [id number] [address] [place] [address] [place] Body fluid albumin measureme nt (mass/volume)Ordered By: Josh Melvin on 09-30-2022 Albumin (Body fld) [Mass/Vol] 3.6 g/dL 3.2-5.5 [facility] Cholesterol [Mass/volume] in Serum or PlasmaOrdered By: Josh Melvin on 09-30-2022 Cholesterol [Mass/Vol] 154 mg/dL 140-200 [facility] Comment on above: Chol less than 200 m g/dl low riskChol 201-239 mg/dl borderline riskChol 240 mg/dl and greater high risk Cholesterol in LDL Calc [Mas s/Vol]Ordered By: Josh Melvin on 09-30-2022 Cholesterol in LDL [Mass/Vol] 93 mg/dL 0-100 [facility] Comment on above: LDL ATP III CLASSIFI CATIONLDL less than 100 mg/dL OptimalLDL 100-129 mg/dL Near or above optimalLDL 130-159 mg/dL Borderline highLDL 160-189 mg/dL HighLDL greater than 189 mg/dL Very high Cholesterol in VLDL Calc [Ma ss/Vol]Ordered By: Josh Melvin on 09-30-2022 Cholesterol in VLDL [Mass/Vol] 17 mg/dL [facility] Creatinine and Glomerular fi ltration rate.predicted panel (S/P/Bld)Ordered By: Josh Melvin on 09-30-2022 Creatinine [Mass/Vol] 0.89 mg/dL 0.64-1.27 [facility] Estimated glomerular filtrat ion rate (GFR) non- AmericanOrdered By: Josh Melvin on 09-30-2022 GFR/1.73 sq M.predicted among non-blacks MDRD (S/P/Bld) [Vol rate/Area] > 60 mL/Min [facility] Globulin Calc (S) [Mass/Vol] Ordered By: Josh Melvin on 09-30-2022 Globulin (S) [Mass/Vol] 3.1 g/dL [facility] Glucose mean value [Mass/vol ume] in Blood Estimated from glycated hemoglobinOrdered By: Josh Melvin on 09-30-2022 Average glucose Estimated from glycated hemoglobin (Bld) [Mass/Vol] 180 mg/dL [facility] Hemoglobin A1c percentageOrd ered By: Josh Melvin on 09-30-2022 HbA1c (Bld) [Mass fraction] 7.9 % 4.3-5.6 [facility] Comment on above: Increased risk for d iabetes: 5.7 - 6.4diabetes: >6.4glycemic control for adults with diabetes: <7.0 No Panel InformationOrdered By: Josh Melvin on 09-30-2022 Estimated GFR () > 60 mL/Min [facility] Comment on above: GFR estimated refere nce range: According to KDOQI guidelines, <60 ml/min/1.73m2 is sufficient to diagnose a patient with chronic kidney disease. Pharmacy Creatinine Clearance (Chem N/A [facility] Protein [Mass/volume] in Ser um or PlasmaOrdered By: Josh Melvin on 09-30-2022 Protein [Mass/Vol] 6.7 g/dL 6.1-7.9 [facility] Serum or plasma alanine cullen otransferase measurement without P-5'-P (enzymatic activiOrdered By: Josh Bunjayleen on 09-30-2022 ALT No additional P-5'-P [Catalytic activity/Vol] 19 U/L 10-60 [facility] Serum or plasma albumin/glob ulin mass ratioOrdered By: Joshana Melvin on 09-30-2022 Albumin/Globulin [Mass ratio] 1.2 {ratio} [facility] Serum or plasma alkaline juliette sphatase measurement (enzymatic activity/volume)Ordered By: Josh Melvin on 09-30-2022 ALP [Catalytic activity/Vol] 78 U/L 32-92 [facility] Serum or plasma anion gap de terminationOrdered By: Josh Melvin on 09-30-2022 Anion gap [Moles/Vol] 19.0 mmol/L 6.0-15.0 [facility] Serum or plasma aspartate am inotransferase measurement (enzymatic activity/volume)Ordered By: Josh Melvin on 09-30-2022 AST [Catalytic activity/Vol] 17 U/L 10-42 [facility] Serum or plasma calcium ezra urement (mass/volume)Ordered By: Josh Melvin on 09-30-2022 Calcium [Mass/Vol] 9.6 mg/dL 8.2-10.2 [facility] Serum or plasma chloride brenda surement (moles/volume)Ordered By: Josh Melvin on 09-30-2022 Chloride [Moles/Vol] 94 mmol/L 95-114 [facility] Serum or plasma glucose ezra urement (mass/volume)Ordered By: Josh Velasconyu [facility] on 09-30-2022 Glucose [Mass/Vol] 149 mg/dL 70-100 [facility] Comment on above: ADA recommended refe rence rangeRandom Glucose Reference Range is dependent on time and content of last meal. Glucose of more than 200 mg/dL in a nonstressed, ambulatory subject supports the diagnosis of Diabetes Mellitus. Serum or plasma high density lipoprotein (HDL) cholesterol measurementOrdered By: Josh Melvin on 09-30-2022 Cholesterol in HDL [Mass/Vol] 44 mg/dL 29-71 [facility] Comment on above: HDL CHOL ATP-III CLA SSIFICATION Cardiovascular RiskHDL > or equal to 60 mg/dL LOWHDL < 40 mg/dL HIGH Serum or plasma potassium me asurement (moles/volume)Ordered By: Josh Melvin on 09-30-2022 Potassium [Moles/Vol] 4.9 mmol/L 3.5-5.1 [facility] Serum or plasma sodium measu rement (moles/volume)Ordered By: Josh Melvin on 09-30-2022 Sodium [Moles/Vol] 137 mmol/L 136-146 [facility] Serum or plasma total biliru bin measurement (mass/volume)Ordered By: Josh Melvin on 09-30-2022 Bilirubin [Mass/Vol] 0.7 mg/dL 0.3-1.2 [facility] Serum or plasma total carbon dioxide measurement (moles/volume)Ordered By: Josh Melvin on 09-30-2022 CO2 [Moles/Vol] 28.9 mmol/L 22.0-30.0 [facility] Serum or plasma total choles terol/high density lipoprotein (HDL) cholesterol mass ratOrdered By: Josh Melvin on 09-30-2022 Cholesterol.total/Cho lesterol in HDL [Mass ratio] 3.5 {ratio} <5.0 [facility] Serum or plasma urea nitroge n measurement (mass/volume)Ordered By: Josh Melvin on 09-30-2022 Urea nitrogen [Mass/Vol] 19 mg/dL 9-23 [facility] Triglyceride [Mass/volume] i n Serum or PlasmaOrdered By: Josh Melvin on 09-30-2022 Triglyceride [Mass/Vol] 86 mg/dL 35-149 [facility] Comment on above: TRIG ATP III CLASSIF ICATIONTRIG less than 150 mg/dL NormalTRIG 150-199 mg/dL Borderline highTRIG 200-500 mg/dL High TRIG greater than 500 mg/dL Very highStandard traceable to the Center for Disease Conrtrol and Prevention (CDC) test method. IntraOperative Documentson 0 04-25-2021 IntraOperative Documents [id number]:127 Normal [facility] Main OR Intraoperative Recor don 04-25-2021 Main OR Intraoperative Record IntraOp Document Type FT Summary Primary Physician: Kwame Yang DO Finalized Date/Time: 04/25/21 16:46:35 Pt. Name: KOKO MEIER Aura GlassB./Sex: 1960 Male Med Rec #: [id number] Physician: Kwame Yang DO Financial #: [id number] Pt. Type: I Room/Bed: [place] [address] Admit/Disch: 04/18/21 08:03:48 - 04/19/21 13:50:00 Institution: [...] E Role Performed Anesthesiologist Surgeon - Primary TRANSIT SURVEY WORKER/SA Space Control Agent Time In 04/18/21 10:01:00 04/18/21 10:01:00 04/18/21 10:01:00 Time Out 04/18/21 12:40:00 04/18/21 12:40:00 04/18/21 12:40:00 Procedure SHOULDER TOTAL SHOULDER TOTAL SHOULDER TOTAL ARTHROPLASTY(Right) ARTHROPLASTY(Right) ARTHROPLASTY(Right) Comments supervised by Dr. Linton Last Modified By: Nandini Villaseñor RN, RN, Nandini Desouza RN 04/18/21 12:41:34 04/18/21 12:41:34 04/18/21 12:41:34 Entry 4 Entry 5 Entry 6 Case Attendee Kasi KOO, Nandini Goldberg TRANSIT SURVEY WORKER, Christiano Ballard TRANSIT SURVEY WORKER, FA, Windy Sanches Role Performed Assistant Golf Course Superintendent - Primary Scrub - Primary Staff - [...] Yang DO, Given Jimmy Head CRNA, Roth TRANSIT SURVEY WORKER, Kasi Maciel RN, Yusuf Garner CST, Elio Burnham CST, FA, Mensjeny K Time Out Complete 04/18/21 [...] and tissue Entry 1 Skin Integrity Intact, [place], Warm, and Skin Abnormality No Dry (more content not included)... Normal [facility] Main OR Preoperative Recordo n 04-25-2021 Main OR Preoperative Record PreOp Document Type FT Summary Primary Physician: Kwame Yang DO Finalized Date/Time: 04/25/21 16:43:54 Pt. Name: KOKO MEIER/Sex: 1960 Male Med Rec #: [id number] Physician: Kwame Yang DO Financial #: [id number] Pt. Type: I Room/Bed: N306/01 Admit/Disch: 04/18/21 [...] By: Nandini Villaseñor RN 04/25/21 16:43 Normal [facility] Coding Summary.on 04-24-2021 Coding Summary. CD:[id number] Gh0bWw +PGhlYWQ+BK8RUJUyG44cyYAcl X7CG8oUJP2ODBLNAXKXED2SEV0 kqAL4XPzhL9VppcLh XzvezPLnMQ06COs9AEQ0aLleGE zzeC2ybVPzI9i6QhSiSA21fI97 ANqpZMYhCaK7RyAddjyekJSd O3seCeYxxFBbMdc+PHRhYmxlIH gqRLUmFLcyTXQaQxQagGxbDR5t Lq7vHXBcVMGznFdhlQCfRwZy t7wcUMFmWDzhLJ3oyJnlB9AguF V3YCDxi3a8Ri71bEW+PHRkIHN0 sHinIKaxr246WvVdd5ktOAW8 lMDsOFtuOSQ5U78bc7X0DBGiXA BpTEC3qWY5nL7qrDenasajI5Ei oBMuEvR9VRQ1xAAobA2uyNtm edutlZ8nSeu+M65ANT2SPEYSCL 0QTir2D7MzIsqlxGC+JV43KAHb BB71rFWmxWJjl2jkxYr6OzNe UEVwSMU5sBysYKaww0ExPBDoU9 2wbHBjz6Z8HAQzjYbkbYFoRjYp gSI0aU0zANnwjrflf6xphdhf Osxby5xzaf00hO14A45dRUwjAG BkGLB2MMIiQHMnwTecpf0ftG0d Ii8+DUcvb9iix1xjoCc9OoOk FLWcevLpcKpsXHQ3a4ZkZv51L4 VsxUica4KlOzd7hk80sZPbc0H5 jTQ6JBdlVOTvmJ5wRIjkZvT7 XAIqBcDsmM85jEPhCDdpGv4yzA yesCqsML2vTVUhkvoyEXExmY9h CEElxXQncCuxRO1rRBLxhtnd c693ImSuNSY0LFPozREpN3EfmI 2eNbTnLKUzZRAvE1XurFMaRVzi K620AOzsOiJ5WQHfhsFtZ2In CYJopYbuIxP9u1Q9Ec5Zm1Urbi jxXJM1NYuhVPR0PeO6JhAtXlX9 O7MhVnt8GGBatJokME4fP1Bp VXPrdwxaovncoJL1NIBzLRBcvZ 01mUCsXItyPh9ef1F6d908ARHd VESsdZ14Ua3ohUlyQMZpsGGQ eQ1lscirf5cksipvFmReETDtKF k7RLe1JPCnoYlvQpSrYZF0TyV3 OQQ8oHYpkH8raMshyrvvrE2e Oyc+C22nuR5hJLZ1AVW3dggtRO UjgaVtGA44QA36X7ItAiepmJBd bGU+HCDfqcKnbQcoJT1nVeFt y6nvo2GzGMdoI8MjDFIqOXzxVc n2GGRlBXD9fCU7kO3mNASwHSlf n3L8kEA2A8DmrjZgxl3xa5vr DYOcFGlwZ54klVBxb1J0LGSphG M2MFQnvGbyJyYiaP89Pck+PGNv sDtgr3VfFomhz7ewa3nihVg9 OtFsKUYvqzDudZgmQQB3y9ZpSw 21R93zQWyoKCIgPITnNJPlIGBd eMeyve2swK4uXr3+PGNvbCB3 jVR0tM8mKFFxBmT4SKhnT127Dd BwnDVfPdeel5alf7raqRa5GfNy TONfiePlbMliSIJ1k7FhGh29 O33rAUpjJMIbQSSuQERwUSOgfD oolo7ueX0sGy5+HL9pe6bjwg27 mB45hUK+HEHwMWQ0pDipMYde RGLpkP4pERwaRfJ4QCBzZlGfaF 98oSFjERxfRr2ahCttgSybCV0x HSHrjutjv682MaDer4gwHNYi eYIkTVjfIPI7E66rc5A6EVDmUC QmJKF7vHB4dR3rqYnuudbqfDXj iRkdlpVfwVwtYMuxSNryX169 IHRvcDsnPlBhdGllbnQgTmFtZT p8G7FiDjg8GIMdrFczUL0kfXNd MYztOx9fpZffhDgbDL0xCLFe sjfki182ZfXvz6gsGGYihQGnHW ctDPV6B62ly5R9XZFwUNOyVMW3 aBE0rT7phJswoacbuNRknNnx poVvcXhxPLgqAJhuW014OKUudK tfQwXfxhSeCTUjfQU9GX98UZ80 mCGnv6P4kAW1P8TqBZUoccer zemrcNZ9PXIhDZWylG15Bl1ziK qcHv5pCTVyJCA6BUTpnEDpW4Tq pD5eDnAyLIYoJBTxF0IceMEh YBntG791ZNtjHhQ9CGPjnwYhR8 AfSBBmuMtuJpQ2n7C6Gw8MP9D5 YD51VA82lLMcb1G0nSR5B7Ty HNOopoqsuzdecPT2MZXwRXRjyD 76Kt5lyZtiYj3fFOUeJJJ4MIAb tGUqI5AywB2vCeFxEOPfBWFq X3NmnONqEMpcO429XOoqZuC3NH GnywZaT4SyAVQbhHkfKbY8v0W5 Ag2QFBz4KP98YZ95kHUok8V3 fUW0I7YxKPVqyhivkopovFR4TL TxKFTrmM66Br7flXxqEh6wBXOz PAL0UKTacJRfF0FrdY4gLeJl WOUfLXIqA0EkeTCsSCfuX825RK qoWyR7BLHcdtGxE1DjAMGknStp XzI8l8B1Vk7RJSWvBJ73IHW4 kOR2VP65GU25N5QoUudjiAUyfY U+PHRhYmxlIHdpZHRoPScxMDAl QkTtfThgXQ1xRq0aCHGyZDDe vUdvjMIzMtRfj8frXVTqSZwlLK 8maPhaW8XvoFX6HMOej7h6Vm18 J80hJ8CkmXQ+LNFieLO9rWC2 zQ4oGuUiAwU7XZfoY053ToGsiY KyWdsrm8gxw3qaeUy3DuO4REZf fwRcwNtyNUE4x6WlOv84M28l IHdpZHRoPSIxNSUiIHZhbGlnbj 7luC8xBg0+HCNlfIT8bUY0kM1h FmLkUgL4BQliL245IvAdoVDs Bcxdu4nbc9sahRv6GfFdMKGhsx EjwKyhUHT0k2MeYn65X4DwqOlx x3WwZrd4vs41mUFru9J2nUE5 W0WlHNAvvfqifPPlnRjvTL9rZI SipbiyUDZbgI0zKEIbJ6m6XhUv JoP6AJndQ3UmnvV8OCLikEMc BAduYRL6B81vg8C7CBDwDGXwZV P9dBH2bW8ejHjkwgskaMHkfJbt caYotMvhPUwnXZenD459ICZu jVddOSMpsP3fYTZyeKSqjRacHU 8yUNBwbysmMtJUSD6NWSQiHRqE RkZSRVkgUzwvdGQ+PHRkIHN0 mDzmRYlqQZSisP2dIUUqB3m3Be UuJfM4POnzF8KtSJZnxqkvLr69 jO6tDoLgIcX3KKkyG3SvjaU5 LKWblAAyAVshBAF2B47ft9P3CP OmXTCrKEL6rLL5eS2nhEzbnwnd bGVmdDsgdmVydGljYWwtYWxp D378LOPatOywNgXlSaDrKmW2PV n6F7TeAsl2XCNrcZlkGX4goGZk XGulKs2lqWbtwIzuBD5wTFGo uglqAUMjgG9fZECrkJMhxAzmMM 7cYKEylkmnv642KbMhFLO9CSBl zKLsA6HypO9mBuTeYCWnAMWt C2DigXDrMIhjW785CUgtXtB4AS GhqiAhE2KpRAYfyGcgLdZ0i9J2 Cr52IwARCEDjbkpqhHA+PHRk YEG5kTexTSajDKRuaR6aGDMqE6 j7MnCgNeP4QQfeZ8TlNJUnlhqb Vg80qY6aFwGoTpZ9XAxeV4Qm kyP8WEAddNWaHAbcFPN1N66km3 B3XDAvJWCcIFJ0uMR7zY4qmPfo bjogbGVmdDsgdmVydGljYWwt NQhaS576CCCuyTlcAp2hfTQ1J2 MpRgv7XDJkiGqjLQ6ukHDoKHno Dp6isTsmhYyoII4pBKNgwmjl YTEygW7dYNUngTEqvLuqIO0eEX Gwgwxgd850TeMiTYY5BDNvgDZo B1RkbK7jPbCtFWEwUBXwO0Aq oQEqEGnnA215SMkfPoL5JDVtfa TrY9RnJRNwbBlyUhN5z9H1Wm7K gqYomVxsqcB7N4LqMgizdBD+ EF20ULWuNR01xIWyaWMtk7vkiE j6CzKzEYUlMLW5fRkoUEsrt9Ol EBRwA19ygFDbr3A1NWTifFrf vYKsIqBgnZG4vT7oVKzredsdr5 zvongxYndno8qvxi85zT20G68i IHdpZHRoPSIzMCUiIHZhbGln uo9onJ8wIp8+BNVmrAB0bMD3tL 8dFeAxAgW3CBpcM072OaKkdTXt Pyluz0zos8rncRs0PiIjJCHd ohOdgJwpKCG3s7HvNx18P60fKE wzXMGmXKZqKQGsAJGwuZufxa3d wZ3wLy1+NS9ic0mxez57dU63 dHI+LWMaZCD7xEocMGnxGGDbgP 2wKQuzVaQ6LURbNdObqH81uSIq DJzzDc1rgIcweQhpII9zAIEh utfwy684YdQxx8jnSLTybNHjPM ziWCS6F24uc6U4VHVbUTThZTZ6 pAF0cR5azKhdfuvtcEJkvCtp zsNqySlcBYalTJsjK324LBOteX duJsPueYKlX7phggNOTI5hPcgg dGQ+CPWvXFS0mQxdLBwbXKCt tJ4vHKPqU2u9KjZfOfI8HAplX0 DiaaJ7EASnqZOkTOGlyFOGqY2s pwgjt8zwyohlZgXpZCNbRJg6 AHq6YNCauQuiCiBlVOZ0UkN1IG A1jTFisK4vhMvuhwckzC8iSvp+ RklOOjwvdGQ+MMMnGGH9xYai MGumCVWzyU6vVEPfO9v8PsReBq O4OUvaM3IhnkJ2ZTHkkQFeBRTy oDGKmA7aprgws3wcxqpwGeSn IYCaGOy5VSf9WPDokCgjVhHbYB R0QvG0JRQ5wIZciH5scJnbfkxo mP1fWir+TVJOOjwvdGQ+PHRk BCR5fXmgRSoxTLXtdO4fVJIuO9 b4MtAnIdO4GSytT5RrrdM2MLQm iRXvDFIfnTZCdB0tfdwsv5vy jqeyRlFrCTNtJGt7AZx0CKGpjH mrNhOxGPQ1CgM3IGD5zCKluC6t dEzwacqsyX2iLkk+VTB5BXV4 OO66NG54P3IqJtitjNYmhXE+PH RhYmxlIHdpZHRoPScxMDAlJyBz iAqxES8hZg5aQMFlLEYwdCsb cHNl (more content not included)... Normal [facility] Operative Reporton Operative Report Patient: SANTIAGO MEIER [...] preparations for the proposed operation continued.. Normal [facility] Comment on above: Result Comment: Elec tronically [...] list: All Problems Arthritis / SNOMED CT 3127756 / Confirmed Diabetes mellitus / SNOMED CT 713617813 / Confirmed High cholesterol / SNOMED CT 44491626 / Confirmed High blood pressure / SNOMED CT 2164610954 / Confirmed Physical Examination Vital Signs 04/18/2021 [...] br/min br/min (more content not included)... Normal [facility] Comment on above: Result Comment: Elec tronically [...] list: All Problems Arthritis / SNOMED CT 0288881 / Confirmed Diabetes mellitus / SNOMED CT 050889283 / Confirmed High cholesterol / SNOMED CT 14795915 / Confirmed High blood pressure / SNOMED CT 8211678150 / Confirmed Histories Past Medical History: No active or resolved past medical history items have been selected or recorded. Family History: Hypertension Father Diabetes mellitus type 2 Mother Brother Metastatic cancer Father Procedure history: Spine orthopedic surgery, lumbar (9851039867). Spine orthopedic surgery, cervical (5325719290). Arthroscopic repair of rotator cuff (2047041007). Carpal tunnel release (038082680). Appendectomy (178006201). Partial resection of colon (56637128). Social History Social & Psychosocial Habits Alcohol [...] results Radiology results ECG interpretation Condition Plan [employer]hesi[employer] (ASA) physical status classification: Class III. Anesthetic Preoperative Plan Anesthesia: General. , Regional Interscalene Block. Anesthetic plan, risks, benefits, and alternatives discussed with the patient and/or family. Risks discussed: nausea, vomiting, headache, sore throat, dental injury, serious complications. Patient verbalized understanding. Communication: face to face with (patient 5 minutes, Pt educated on the importance of smoking cessation.). Normal [facility] Comment on above: Result Comment: Elec tronically Signed By: Royer Jonas DO, Christiano Simpson\Date and Time Signed: 04/23/21 08:08 EDT Auto Diffon 04-19-2021 Basophils/100 WBC (Bld) 0.4 % Normal 0.0-2.0 [facility] Comment on above: Order Comment: Order Added by Discern Expert. Performed By: #### 1 [id number] #### [facility] [address] [place] [address] Basophils/Leukocytes Auto (Bld) [Pure # fraction] 0.0 E9/L Normal 0.0-0.2 [facility] Comment on above: Order Comment: Order Added by Discern Expert. Performed By: #### 1 [id number] #### [facility] [address] [place] [address] Eosinophils/100 WBC (Bld) 0.1 % Normal 0.0-8.0 [facility] Comment on above: Order Comment: Order Added by Discern Expert. Performed By: #### 1 [id number] #### [facility] [address] [place] [address] Eosinophils/Leukocyte s Auto (Bld) [Pure # fraction] 0.0 E9/L Normal 0.0-0.5 [facility] Comment on above: Order Comment: Order Added by Discern Expert. Performed By: #### 1 [id number] #### [facility] [address] [place] [address] Lymphocytes/100 WBC (Bld) 14.0 % Normal 14.0-50.0 [facility] Comment on above: Order Comment: Order Added by Discern Expert. Performed By: #### 1 [id number] #### [facility] [address] [place] [address] Lymphocytes/Leukocyte s Auto (Bld) [Pure # fraction] 1.7 E9/L Normal 1.0-4.0 [facility] Comment on above: Order Comment: Order Added by Discern Expert. Performed By: #### 1 [id number] #### [facility] [address] [place] [address] Monocytes/100 WBC (Bld) 5.9 % Normal 4.0-14.0 [facility] Comment on above: Order Comment: Order Added by Discern Expert. Performed By: #### 1 [id number] #### [facility] [address] [place] [address] Monocytes/Leukocytes Auto (Bld) [Pure # fraction] 0.7 E9/L Normal 0.2-1.0 [facility] Comment on above: Order Comment: Order Added by Discern Expert. Performed By: #### 1 [id number] #### [facility] [address] [place] [address] Neutrophils/100 WBC (Bld) 79.6 % High 36.0-75.0 [facility] Comment on above: Order Comment: Order Added by Discern Expert. Performed By: #### 1 [id number] #### [facility] [address] [place] [address] Neutrophils/Leukocyte s Auto (Bld) [Pure # fraction] 9.8 E9/L High 2.0-7.5 [facility] Comment on above: Order Comment: Order Added by Discern Expert. Performed By: #### 1 [id number] #### [facility] [address] [place] [address] BUNon 04-19-2021 Urea nitrogen [Mass/Vol] 19 mg/dL Normal 5-21 [facility] Comment on above: Performed By: #### 1 [id number] #### [facility] [address] [place] [address] CBC w/ Auto Diffon Erythrocyte distribution width (RBC) [Ratio] 13.1 % Normal 10.9-14.2 [facility] Comment on above: Performed By: #### 1 [id number] #### [facility] [address] [place] [address] Hematocrit (Bld) [Volume fraction] 42.1 % Normal 37.7-49.0 [facility] Comment on above: Performed By: #### 1 [id number] #### [facility] [address] [place] [address] Hemoglobin (Bld) [Mass/Vol] 14.0 g/dL Normal 13.5-17.5 [facility] Comment on above: Performed By: #### 1 [id number] #### [facility] [address] [place] [address] MCH (RBC) [Entitic mass] 31.5 pg Normal 27.0-34.0 [facility] Comment on above: Performed By: #### 1 [id number] #### [facility] [address] [place] [address] MCHC (RBC) [Mass/Vol] 33.3 g/dL Normal 31.4-36.0 [facility] Comment on above: Performed By: #### 1 [id number] #### [facility] [address] [place] [address] MCV (RBC) [Entitic vol] 94.4 fL Normal 80.0-100.0 [facility] Comment on above: Performed By: #### 1 [id number] #### [facility] [address] [place] [address] Platelet mean volume (Bld) [Entitic vol] 9.5 fL Normal 6.4-10.8 [facility] Comment on above: Performed By: #### 1 [id number] #### [facility] [address] [place] [address] Platelets (Bld) [#/Vol] 177.0 E9/L Normal 150.0-500.0 [facility] Comment on above: Performed By: #### 1 [id number] #### [facility] [address] [place] [address] RBC (Bld) [#/Vol] 4.5 E12/L Normal 4.3-5.9 [facility] Comment on above: Performed By: #### 1 7509168 #### [facility] [address] [place] [address] WBC corrected for nucl RBC Auto (Bld) [#/Vol] 12.3 E9/L High 4.0-11.0 [facility] Comment on above: Performed By: #### 1 1252141 #### [facility] [address] [place] [address] Capillary Glucose POCon 03-28 Glucose [Mass/Vol] 226 mg/dL High 55-99 [facility] Comment on above: Result Comment: Joanna daly RN/ Performed By: #### 2 [id number] #### [facility] [address] [place] [address] Glucose [Mass/Vol] 271 mg/dL High 55-99 [facility] Comment on above: Result Comment: Joanna daly RN/ Performed By: #### 2 [id number] ####[facility] [address] [place] [address] Consent for Anesthesiaon Consent for Anesthesia [id number]#1.00CD:127 Normal [facility] Creatinineon 04-19-2021 Creatinine [Mass/Vol] 0.7 mg/dL Normal 0.5-1.3 [facility] Comment on above: Performed By: #### 1 [id number] #### [facility] [address] [place] [address] Discharge Instructionson Discharge Instructions [id number]#[id number]:127 Normal [facility] Inpatient Clinical Summaryon 04-19-2021 Inpatient Clinical Summary [address] [address] Clinical Summary Person Information: Name: KOKO MEIER Age: 60 Years : 1960 Sex: Male PCP: JOSH MELVIN DO Marital Status: Phone: [phone] Race: White Ethnicity: Non- or Language: Angolan Visit Id: Visit Reason: OA RIGHT SHOULDER Speciality: Acuity: Enc Type: Inpatient Med Service: Surgery Arrival: 04/18/2021 08:03:48 Discharge: Dispo Type: Address: [address] [place] [id number] Provider Notes: Diagnosis: Arthritis of shoulder region, [...] Follow up: With: Address: When: Kwame Yang [address] [place] [id number] [facility] (1) 04/26/2021 2:45 PM Patient Education Information: Danyell Yang - Shoulder Replacement (Custom) Normal [facility] Inpatient Patient Summaryon 04-19-2021 Inpatient Patient Summary [address] [id number] Patient Discharge Instructions PERSON INFORMATION Name: KOKO MEIER Date of : 1960 Current Date: 04/19/2021 12:54:54 PHYSICIANS Admitting Physician: Kwame Yang DO Primary Care Physician: JOSH MELVIN DO PCP Comment: Discharge Diagnosis: Arthritis of shoulder region, right, degenerative Condition at Discharge: KOKO MEIER Aura has been given the following list of follow-up instructions, prescriptions, and patient education materials: PATIENT FOLLOW-UP INFORMATION Diet: Discharge Activity: Discharge Restrictions: Wound Care Instructions: Remove Your Dressing In Days Call Your Doctor For: IF UNABLE TO CONTACT YOUR PHYSICIAN AND YOU FEEL IT IS AN EMERGENCY, GO TO THE NEAREST EMERGENCY ROOM OR CALL 1 Home Treatment: Devices/Equipment: Special Services: Additional Instructions: Primary Care Physician to provide the following pending test results: None Follow up: With: Address: When: Kwame Yang [address] [place] [address] Business (1) 04/26/2021 2:45 PM In the [...] New Medications [facility], [address] [place], [place] [id number], [phone] acetaminophen-oxycodone (Percocet 325 mg-5 mg Tab) 1-2 [...] a day. (more content not included)... Normal [facility] Interdisciplinary Note - Mir e Manageron 04-19-2021 Interdisciplinary Note - Refrigeration Technician PT is awake and alert in bed, await rounds with Dr. Yang. . PCP verified and Insurance information reviewed and DME discussed. Contact information provided and white board updated. No family present at this time. Pt lives with and she will transport at [place]. Inpatient status reviewed, Medicare rights reviewed and form signed, original provided to pt. Declines any concerns or anticipated DC needs. Plan to [place] home today 04/19. MADELINE received a phone call from hospital chemical processing supervisor Viri. States pt Ct called and [...] waiting for approval. CRM contacted pt Ct [phone] and updated. Viri, hospital chemical processing supervisor updated. Normal [facility] Comment on above: Result Comment: Elec tronically Signed By: Petty KOO, Afia\.renard\Date and Time Signed: 04/19/21 15:36 EDT IntraOperative Documentson 0 04-19-2021 IntraOperative Documents [id number]#1.00CD:127 Normal [facility] IntraOperative Documents [id number]#1.00CD:127 Normal [facility] Lyteson 04-19-2021 Anion gap [Moles/Vol] 11 mmol/L Normal 6-16 [facility] Comment on above: Performed By: #### 2 [id number] #### [facility] [address] [place] [address] Chloride [Moles/Vol] 103 mmol/L Normal 101-111 [facility] Comment on above: Performed By: #### 2 [id number] #### [facility] [address] [place] [address] CO2 [Moles/Vol] 30 mmol/L Normal 21-31 [facility] Comment on above: Performed By: #### 2 [id number] #### [facility] [address] [place] [address] Potassium [Moles/Vol] 4.0 mmol/L Normal 3.5-5.3 [facility] Comment on above: Performed By: #### 2 [id number] #### [facility] [address] [place] [address] Sodium [Moles/Vol] 140 mmol/L Normal 135-145 [facility] Comment on above: Performed By: #### 2 [id number] #### [facility] [address] [place] [address] Message from Medicareon - Message from Medicare [id number]#1.00CD:127 Normal [facility] Patient Education - Texton 0 04-19-2021 Patient Education - Text [place], [place] [facility] DISCHARGE INSTRUCTIONS: SHOULDER REPLACEMENT [...] development of persistent vomiting. _ Kwame Yang, [facility] [address] [place] [address] Reviewed: Normal [facility] Physician Orderon 04-19-2021 Physician Order [id number]#1.00CD:127 Normal [facility] Preoperative Documentson Preoperative Documents [id number]#1.00CD:127 Normal [facility] Preoperative Documents [id number]#1.00CD:127 Normal [facility] Progress Note-Physicianon Progress Note-Physician Patient: KOKO MEIER [...] Pressure 80 mmHg SpO2 92 % Normal [facility] Comment on above: Result Comment: Elec tronically Signed By: Kwame Yang DO\.br\Date and Time Signed: 04/19/21 12:55 EDT eGFRon 04-19-2021 GFR/1.73 sq M.predicted among blacks MDRD (S/P/Bld) [Vol rate/Area] mL/min/{1.73_m2} Normal >=59 [facility] Comment on above: Order Comment: Order added by Discern Expert. Result Comment: eGFR is race adjusted. AA=. Performed By: #### 2 [id number] #### [facility] [address] [place] [address] GFR/1.73 sq M.predicted among non-blacks MDRD (S/P/Bld) [Vol rate/Area] mL/min/{1.73_m2} Normal >=59 [facility] Comment on above: Order Comment: Order added by Discern Expert. Result Comment: Senior Product Manager aracely kidney disease could be indicated at eGFR's of less than 60 mL/min/1.73m2. Kidney failure is indicated at less than 15 mL/min/1.73m2. Performed By: #### 2 [id number] #### [facility] [address] [place] [address] ABO/Rhon 04-18-2021 ABO/Rh Positive Invalid Interpretation Code [facility] Comment on above: Performed By: #### 2 [id number], [id number], [id number], [id number] ####[facility] [address] [place] [address] ABO/Rh History Checkon 04-18 ABO/Rh History Check Verified Hx Blood Type Normal [facility] Comment on above: Performed By: #### 2 [id number], [id number], [id number], [id number] ####[facility] [address] [place] [address] ABSC Tubeon 04-18-2021 ABSC Tube Interp Negative Normal [facility] Comment on above: Performed By: #### 2 080087, [id number], [id number], [id number] ####[facility] [address] [place] [address] Blood Bank ID#on 04-18-2021 BBID# [id number] Invalid Interpretation Code [facility] Comment on above: Performed By: #### 2 [id number], [id number], [id number], [id number] ####[facility] [address] [place] [address] Blood Bank Slipon 04-18-2021 Blood Bank Slip [id number]#1.00CD:127 Normal [facility] Capillary Glucose POCon - Glucose [Mass/Vol] 293 mg/dL High 55-99 [facility] Comment on above: Result Comment: Eva dav Meter Performed By: #### 2 [id number] #### [facility] [address] [place] [address] Glucose [Mass/Vol] 312 mg/dL High 55-99 [facility] Comment on above: Result Comment: Joanna daly RN/ Performed By: #### 2 [id number] #### [facility] [address] [place] [address] Glucose [Mass/Vol] 241 mg/dL High 55-99 [facility] Comment on above: Result Comment: Eva dav Meter Performed By: #### 2 [id number] #### [facility] [address] [place] [address] Consent for Procedure/Surger yon 04-18-2021 Consent for Procedure/Surgery [id number]#1.00CD:127 Normal [facility] Consent for Treatmenton 03-28 Consent for Treatment [id number]#1.00CD:127 Normal [facility] H&P Updateon 04-18-2021 H&P Update [id number]#1.00CD:127 Normal [facility] Main OR PACU I Recordon 03-28 Main OR PACU I Record PACU Phase I Docum ent Type FT Summary Primary Physician: Kwame Yang DO Finalized Date/Time: 04/18/21 16:44:21 Pt. Name: KOKO MEIER/Sex: 1960 Male Med Rec #: [id number] Physician: Kwame Yang DO Financial #: [id number] Pt. Type: O Room/Bed: 03/27 Admit/Disch: 04/18/21 08:03:48 - Institution: Case Times [...] By: Keira Knox RN 04/18/21 16:44 Normal [facility] Monitor Recordon 04-18-2021 Monitor Record [id number]#1.00CD:127 Normal [facility] Operative Reporton Operative Report Patient: SANTIAGO MEIER [...] 3. size 3 humeral insert 4. Revers Marquette size 9 stem with 39 (+2 right) [...] the gregg (more content not included)... Normal [facility] Comment on above: Result Comment: Elec tronically Signed By: Kwame Yang DO\.br\Date and Time Signed: 04/18/21 12:52 EDT Outpatient Surgery Discharge Instructionon 04-18-2021 Outpatient Surgery Discharge Instruction [address] [address] Patient Discharge Instructions PERSON INFORMATION Name: KOKO MEIER Date of : 1960 Current Date: 04/18/2021 09:55:09 PHYSICIANS Admitting Physician: Kwame Yang DO Discharge Diagnosis: Arthritis of shoulder region, right, degenerative RENEA KOKO Aura has been given the following list [...] Follow up: With: Address: When: Kwame Yang [address] [place] [id number] Business (1) 04/26/2021 2:45 PM Pharmacy Information: [...] to serve you. Thank you for choosing [facility] HERE ARE THE MEDICATION CHANGES [...] times a day. PATIENT EDUCATION INFORMATION Instructions: [place], [place] [facility] DISCHARGE INSTRUCTIONS: SHOULDER REPLACEMENT [...] vomiting. _ Kwame Yang, DO [facility] [address] [place] [address] Reviewed: Normal [facility] UA With Cult Reflexon 2020 Bilirubin Ql (U) Negative Normal Negative [facility] Comment on above: Performed By: #### 1 [id number] #### [facility] [address] [place] [address] Clarity (U) CLEAR Normal Clear [facility] Comment on above: Performed By: #### 1 [id number] #### [facility] [address] [place] [address] Color (U) YELLOW Normal Yellow [facility] Comment on above: Performed By: #### 1 [id number] #### [facility] [address] [place] [address] Epithelial cells.squamous LM.HPF (Urine sed) [#/Area] 0-2 Normal 0-2 [facility] Comment on above: Performed By: #### 1 [id number] #### [facility] [address] [place] [address] Glucose Test strip (U) [Mass/Vol] 2+ Abnormal Negative [facility] Comment on above: Performed By: #### 1 [id number] #### [facility] [address] [place] [address] Hemoglobin Ql (U) Negative Normal Negative [facility] Comment on above: Performed By: #### 1 [id number] #### [facility] [address] [place] [address] Ketones (U) [Mass/Vol] Negative Normal Negative [facility] Comment on above: Performed By: #### 1 [id number] #### [facility] [facility] [address] [place] [address] Tignall.plasma/Lithiu m.RBC (Bld) [Mass ratio] 0-3 Normal 0-3 [facility] Comment on above: Performed By: #### 1 [id number] #### [facility] [address] [place] [address] Mucus Ql (Urine sed) TRACE Normal [facility] Comment on above: Performed By: #### 1 [id number] #### [facility] [address] [place] [address] Nitrite Ql (U) Negative Normal Negative [facility] Comment on above: Performed By: #### 1 [id number] #### [facility] [address] [place] [address] pH (U) 6.0 [pH] Invalid Interpretation Code 5.0-9.0 [facility] Comment on above: Performed By: #### 1 [id number] #### [facility] [address] [place] [address] Protein (U) [Mass/Vol] TRACE Abnormal Negative [facility] Comment on above: Performed By: #### 1 [id number] #### [facility] [address] [place] [address] Specific gravity (U) [Rel density] 1.020 Invalid Interpretation Code 1.005-1.030 [facility] Comment on above: Performed By: #### 1 [id number] #### [facility] [address] [place] [address] Type of Urine collection method Cohn Normal [facility] Comment on above: Performed By: #### 1 [id number] #### [facility] [address] [place] [address] Urobilinogen Qn (U) 0.2 {Rolando'U}/dL Normal 0.0-1.0 [facility] Comment on above: Performed By: #### 1 [id number] #### [facility] [address] [place] [address] WBC Auto Ql (U) Negative Normal Negative [facility] Comment on above: Performed By: #### 1 [id number] #### [facility] [address] [place] [address] WBC LM.HPF (Urine sed) [#/Area] 0-5 Normal 0-5 [facility] Comment on above: Performed By: #### 1 [id number] #### [facility] [address] [place] [address] XR Shoulder Complete Righton 04-18-2021 XR Shoulder [...] MD Transcribed by: BECKY Technologist: Joe PARKS [facility] Outside Recordson 04-17-2021 Outside Records [id number]:127 [facility] Outside Recordson 04-09-2021 Outside Records [id number]#[id number]:127 [facility] CT Upper Extremity w/o [...] Warren MD Transcribed by: BECKY Technologist: CONSUELO [facility] Coding Summary.on 04-04-2021 Coding Summary. CD:[id number] Gh0bWw +PGhlYWQ+KQ2WCANhZ24fpGUwv D4UU9tDLY9LHSQTDUFLKM5ZYU1 dxYK9TJklL8LkbsXh HlhmzXRdUF68ESr9BQU3rEohRO adpU1wrITiE4x2KtJsMS21mE20 TVsuPTUiQnY1PjFivebbwQDx Q3lcZjPyuGOmQpc+PHRhYmxlIH pbUDUtSPxeMKRmAyYamPyvRR1v Sj3mNGJqMFHnwFkriXLvJfGh h6jsJTUrLLzgZV2jaKmnI5PqmK L2SIHmt8u6Mf14iGU+PHRkIHN0 sKlzXHrhx957CpWos9pzJJQ0 wPCgPWkwCOW9O77fe1Y0RSGjCR IeMBY0zQY9bA1ndLpupoboS2Zb zOUvOfO7UBT9dWMcwP7xfJgi vkzruA6tTmr+R93GAW1GDBMDWC 8IUum2A4XvQraepPL+RI01PLEc IO87yHPryLAme5iprQf2WlFa YFFwLUG3xSllVQaut6QdJTAcP6 2xxOTqy7Y1HTWrlSfoyIUxEmLj vPJ3eH3xFNceqfdpf9vjnlag Oetmb4gppe94cF66K61sCExvCO YjIQF4IOSvAPLvsKksqa6oqT4p Ii8+TQpbh2ywr3pyuGu1SxJt KLBtcdZfoKzaUED2t6KeUi63P8 TgjZiss3SzSpu3ab26tHRiq3K2 tSB1OFtbSFLghN6iJHuaSnC3 UYVyZvKqnJ51mZNyJVfgTo6fgB vyiMowPB5eOWHkvchcJEYdhS4v SHTfyYWjrArpEL5cKGVlosqz a932ZjHfURM0NIMdnYZaE0GfdJ 4nLkVxIDDlMFDpZ2IelUInONwr Z121JNsvCaX7MYXvijVpK6Yo REGatPnxMkR4d8A3Mm8Fy1Tbrc ygPUE6IUgvWXM7YdZ4RhKrZhF0 G6IfOgu4FFKazVajYB1eP8Rj STBvixpuxtqkuHO2WCLfZBJdzH 84uSWpQFakTp4yn8J7h556CNQo IWHjoE81Dq1amJrxLQMdiTSS oA7deojjt5qqjdlmYjYtJCCnMA l2ZRi7DOWscTlaAvSpLEV6UcD0 QTY6iVZenV8geMevtzzgcM9x Oyc+P69nyF9kYVU5FIG7ftovSE HagfAuTZ40TJ04V5VnDdamuFEl bGU+VKXqjjNyoHweNH3pUwJu d7biu6MjJBojP2IiTZEbISxoXd j3UUHzBCE0kDG0hO7qBQLaKGel m7I5cJG9A2NhveOpvq3ao0jv DVWuFXkyL30foMOuy1O3DCEwyN X2PSMjyXomLdZspE06Hfl+PGNv aQcje1SvCszbz2ncc2ppaGq1 DwVjRSEpnnYeaWkvOEY7b3NwEx 56W96cLKhiFSFqVTOoLYKxFGDi bXrcuz6lwO8aZt9+PGNvbCB3 qPL4zC7wTGFqEzK1BCnkO898Zc YdwFWlSivsp5nrw8yybCs3WnAi OWScwfIonNatQUX1e4IdIk01 R89oTDfqZSXxUDWfLALdSYOhqG lpmo8ruH2vXf0+CM4zj4hckn01 sR34jID+GXBsWAO4qGedNIxv FMUuaN2yPRhxTvE1ZBPeKwDgsV 99fDIsCNxwVs1jnDovnLdhTQ4k IEXtoqrfq338OtJpb2laQNGl lEKxUWwvNOP9F22ip6I6MHDsNC WqHJI0qDY7cT3bvZdldncomDWm uPdphhKdnRlvFZnpEUrcF973 IHRvcDsnPlBhdGllbnQgTmFtZT x4F9YrBhz5PWWglUdoIU5unMVw EKarHp5qaWaclYrpUH9tTNSm dclgt240QbEtp2yeCRImqEJhXL orESC4S98ri1W1WKLvBCQoZKX9 gBS8dV7ouZwwpzxdoBIynUfv boWvlPzbXKfsYBuuR537HQKiiO prOaKbpqVuGAUwhMW0UT26KV28 aPFuo5M9dCB2F0DmDIQycnmy spizmXR6DNUjYXEjyH71Yx4hoH epCm4iVICyHYZ8UOAopOQeH8Cl jJ3jAwRxMARwHJIjL0PojWQx KZsfK901FGwsXfV6MTHcrfAtT8 IrWLChqVpvDdQ4u1R3Yt7LV9K0 YF01AC02mUAgv9T4tYG1R6Sm CGNshtsmpbrivUR7CEWvIQNifW 10Qi1ysXebBx3hODTiEWT5YITp hNNeW0OhpS0lOxIeVWXvQBRj G1SevJQtWPohG618MAcmPxX1ID UcxnBfU9DjZSWreDtgXoC2n1S6 Eg8LZOq4WD98NQ68hXKou2U3 dFF2N0GsDTEolyejbgbrwVO2NR PmVNLyoG76Qs6dzDoqCp9gCKKm BUG4UTVrqMXgQ1HmzZ9bCrKt FEYrIARoT6SjkOFnUWfaC127TZ mcPpD1FAVnfjZsV4ZpKTHpxBxq KyH7e0Q4Ps1RNCYhNK94TWQ1 kSG2YM60EM79O8FpObewvLSlhI U+PHRhYmxlIHdpZHRoPScxMDAl SrVtxHwcGO0gOf6tKEMxAJQj pEexfOVhGnFlx0wpGBYaMJtmZT 7vyBcyD1EixYV2LRFrz3q5Qa24 V65sO8PbmJB+ZNPxsQI4nQA1 hP6kRoFgHfQ5UZvuL559YvBezE UuKdboi2qnq5rdqBr4YoU9YWTe brAvrEaqJDV7y1NkCq29Y14j IHdpZHRoPSIxNSUiIHZhbGlnbj 3sgI0nAw2+QUZhbSZ6hYL0sF2g UtSlTmS1PZrwK506CuNrbICs Tgybq5tba0mabMd3KoExMVWuuo CwxWmmBFG5f8EaZi03E9XemRqh o7XlQig1ij72sNTde1R6pFF0 Z2RvIBJwsbqdqPVlnShdFX6hEP ThrrbqVBFtuN0kQINfB8t7FwYp WyX2SWunN0NxetE9YDAccTNd AUimDAY0B38rh5G3HZQeKLAbEQ D1cVF2zJ9hdSerahqcdTXlrIpu rwWmkIqnZQnkSNurU854OAYx gOdeIRKllT3hKSDfuJNgbOeoLL 4nLONmzhzsOcQCRY8UBPVkQVyO RkZSRVkgUzwvdGQ+PHRkIHN0 jQchMFnvJXUauG7fYOMqA6x6Cz MkAuB0BKeqM5YeZSMggkebIc95 fR4wEeDdHbT2GQymO9PmzyA9 LHPbzHKuOVttXDZ1G17zm4E2XE AsZLHcFLJ1pEL3pQ5meJdcdgpc bGVmdDsgdmVydGljYWwtYWxp P241WGWjdMvzZnQdPlImNrP9NO a4I8FyJep8YQZxmPdsXT2jaMFg BEsmHh7anWaqvYzuRF9mJCAe lwiwPXRewO3aJGBzwKPwsVsyHO 8zPUJnqotls986RyHzRQR5FNJv vQUcX5VtoZ7jHsOzXOQiCIGz A8VsqCPmPIzkU516CMffQpV9QG YyulYiK8YjAEYymHzxDhY5x9C7 Zp79ZsHSTQWxthufwDX+PHRk ICE9tLyfGOqyNWNtoJ9nHOMiA4 e2UsGcVrT5VHwsR8EzJBMccrqp Kg10hX9rAgLjMxC1GKvaA9Jo jvX7OEVuwEGrYLspVPC4G66te0 F5CBFkPHJhNYQ0lHP6oY1mvFos bjogbGVmdDsgdmVydGljYWwt DQsgN460LXTbcLwsFu4btJP2P9 IeOxa4VLHizXsaMR6ftTEjRYau Hm5fwOhufRznYE1oNTGznkei BGVimE4pCVWgjKFwmHlbYW0oHJ Ucmcboy360DxGkWWL7SHMkbHWn G1PgbJ0zDgVdDIVmJEGwD3Tr bDPxYIlvO148VXfyMcM6ZPHldf GcW0ItNDBjtDkaItR3v7L7Hh5Y eCNqFSDyTD25AY63ZY57J9Zs PjwvdGFibGU+PHRhYmxlIHdpZH VwCEugKICuYnRkmKztXX2jUh2u COTcANNniSpjcLVeTdUcd1jf VAQhKWcsMQ5usIhyE8XchMV6JZ Dlp2s9Ii20F59dH0EcfKI+PGNv uLS5wYU4zP2hKwBmPvC7SEys L949AwRbwGTkGhltb0evz5wouM m5XuDxPMZrjhLpqSlgFDS8m2Ud Ch12Z62oLPepRZQuAFIoYXTy WPUieMkwip1qyX1vIi5+PGNvbC B9eQO6eQ9mXoEeVnK9JToaF961 GaIlnKOoHejhW97fW9ZpwYV+ DZQfTza0FHEvlRboFQ0ojNGyUS qxJg6pYPI7XqZkLvFeLWdgY6Ap SPEjevldlkfdrLR0BYMvLPSx tW89Hc7uwVjuRn4tLHEaZVL7TR LvzMMnR6BhfT7nWtWsQZRwERJx T7RvtOAcGKcqW976EWecGxY9 NZLccsFqF0BuULRuhEogKkJ0d4 N8Lb3UzCxocZDdUV2dPiEeAFj4 E0EiLth6GBYaoVuqUW5xwIIn IIlxPt7hnGdvcNicUS8oGNLveu oyi575JrLzy2rhLKYpiOMmVSyx FKM0X55di9T8EERfFDYdWAY2 pDM4zD4ncYmzhzqykGQkiDhjbt GogOewPRtsFZzcZ930JEPcvHws BpBUSsa1D3CzVpp0WYTwaLwu JZ0uyQZdWRlmUx9ftFxupFdjYR 2qQZWhnazyz642HsGgs6vzSAJh tRUiFUqfDAQ2Y98xd7C3BGKy ZKVxHAN0fSS0tV7ksCkxwinytH UliPsewnCviOvkJUfaDEndJ745 GYMzxTeiIm6KZco8F1UuHbi6 YSMthDzcPE7xwJVsCFdqQl8ocR mpaLjqIM9fFCTdyeoai534HuOb h8grZYHvvRMkPRkyMRI8X72x j6Y4CEEvGNXnKUC8pVT1nI3khA lnbjogbGVmdDsgdmVydGljYWwt JJvbE174LOXslCihGpVirFMo OjwvdGQ+BI50sr35X2NzGmyhZx r9FLDwOPG3uJW2xQ7jTLEuFYyp k5C5hDL4B3YbdzHzsh5tu6ws YXBz (more content not included)... Normal [facility] Immunization Recordson 04-04 Immunization Records [id number]#[id number]:127 Normal [facility] ABO/Rh Retypeon 04-03-2021 ABO/Rh Retype Interp Positive Invalid Interpretation Code [facility] Comment on above: Performed By: #### 1 [id number] ####[facility] [id number] [place] [address] BUNon 04-03-2021 Urea nitrogen [Mass/Vol] 22 mg/dL High 5-21 [facility] Comment on above: Performed By: #### 1 [id number] #### [facility] [address] [place] [address] CBC w/Indiceson 04-03-2021 Erythrocyte distribution width (RBC) [Ratio] 12.7 % Normal 10.9-14.2 [facility] Comment on above: Performed By: #### 1 [id number] #### [facility] [address] [place] [address] Hematocrit (Bld) [Volume fraction] 47.4 % Normal 37.7-49.0 [facility] Comment on above: Performed By: #### 1 [id number] #### [facility] [address] [place] [address] Hemoglobin (Bld) [Mass/Vol] 16.1 g/dL Normal 13.5-17.5 [facility] Comment on above: Performed By: #### 1 [id number] #### [facility] [address] [place] [address] MCH (RBC) [Entitic mass] 31.8 pg Normal 27.0-34.0 [facility] Comment on above: Performed By: #### 1 [id number] #### [facility] [address] [place] [address] MCHC (RBC) [Mass/Vol] 34.1 g/dL Normal 31.4-36.0 [facility] Comment on above: Performed By: #### 1 [id number] #### [facility] [address] [place] [address] MCV (RBC) [Entitic vol] 93.2 fL Normal 80.0-100.0 [facility] Comment on above: Performed By: #### 1 [id number] #### [facility] [address] [place] [address] Platelet mean volume (Bld) [Entitic vol] 9.3 fL Normal 6.4-10.8 [facility] Comment on above: Performed By: #### 1 [id number] #### [facility] [address] [place] [address] Platelets (Bld) [#/Vol] 168.0 E9/L Normal 150.0-500.0 [facility] Comment on above: Performed By: #### 1 [id number] #### [facility] [address] [place] [address] RBC (Bld) [#/Vol] 5.1 E12/L Normal 4.3-5.9 [facility] Comment on above: Performed By: #### 1 [id number] #### [facility] [address] [place] [id number] WBC corrected for nucl RBC Auto (Bld) [#/Vol] 8.0 E9/L Normal 4.0-11.0 [facility] Comment on above: Performed By: #### 1 [id number] #### [facility] [address] [place] [address] Consent for Treatmenton Consent for Treatment [id number]#[id number]:127 Normal [facility] Creatinineon 04-03-2021 Creatinine [Mass/Vol] 0.7 mg/dL Normal 0.5-1.3 [facility] Comment on above: Performed By: #### 1 [id number] #### [facility] [address] [place] [address] Glucoseon 04-03-2021 Glucose [Mass/Vol] 249 mg/dL High 55-199 [facility] Comment on above: Performed By: #### 1 [id number] #### [facility] [address] [place] [address] YfeP3mfd 04-03-2021 HbA1c (Bld) [Mass fraction] 7.9 % High <=5.9 [facility] Comment on above: Performed By: #### 7 [id number] #### [facility] [address] [place] [address] Lyteson 04-03-2021 Anion gap [Moles/Vol] 15 mmol/L Normal 6-16 [facility] Comment on above: Performed By: #### 1 [id number] #### [facility] [address] [place] [address] Chloride [Moles/Vol] 94 mmol/L Low 101-111 [facility] Comment on above: Performed By: #### 1 [id number] #### [facility] [address] [place] [address] CO2 [Moles/Vol] 27 mmol/L Normal 21-31 [facility] Comment on above: Performed By: #### 1 [id number] #### [facility] [address] [place] [address] Potassium [Moles/Vol] 4.2 mmol/L Normal 3.5-5.3 [facility] Comment on above: Performed By: #### 1 [id number] #### [facility] [address] [place] [address] Sodium [Moles/Vol] 132 mmol/L Low 135-145 [facility] Comment on above: Performed By: #### 1 [id number] #### [facility] [address] [place] [address] XR Chest 2 Viewson XR Chest 2 [...] MD, V. Transcribed by: BECKY Technologist: Normal [facility] eGFRon 04-03-2021 GFR/1.73 sq M.predicted among blacks MDRD (S/P/Bld) [Vol rate/Area] mL/min/{1.73_m2} Normal >=59 [facility] Comment on above: Order Comment: Order added by Discern Expert. Result Comment: eGFR is race adjusted. AA=. Performed By: #### 1 [id number] #### [facility] [address] [place] [address] GFR/1.73 sq M.predicted among non-blacks MDRD (S/P/Bld) [Vol rate/Area] mL/min/{1.73_m2} Normal >=59 [facility] Comment on above: Order Comment: Order added by Discern Expert. Result Comment: Senior Product Manager aracely kidney disease could be indicated at eGFR's of less than 60 mL/min/1.73m2. Kidney failure is indicated at less than 15 mL/min/1.73m2. Performed By: #### 1 [id number] #### [facility] [address] [place] [address] Physician Orderon 03-01-2021 Physician Order [id number]#1.00CD:127 Normal [facility] Pre-Certification Formon Pre-Certification Form [id number]#1.00CD:127 [facility] Physician Orderon 02-28-2021 Physician Order [id number]#1.00CD:127 Normal [facility] Coding Summary.on 12-21-2020 Coding Summary. CODING DATE: 021 FINAL [facility] STATUS: Home (Routine DC) PAYOR: [...] CphT Date Saved: 12/21/2020 01:14 pm Normal [facility] CT Upper Extremity w/ Contra st Righton [...] Report Acromioclavicular Joint: Severe degenerative changes with ghks-ps-ubqm contact, extensive subchondral cystic changes involving the [...] None Contrast amount in ml's: 0 Normal [facility] Consent for Treatmenton 11-28 Consent for Treatment [id number]#1.00CD:127 Normal [facility] Creatinineon 12-20-2020 Creatinine [Mass/Vol] 0.7 mg/dL Normal 0.5-1.3 [facility] Comment on above: Performed By: #### 2 [id number] #### [facility] [address] [place] [address] Physician Orderon 12-20-2020 Physician Order [id number]#[id number]:127 Normal [facility] RAD - Consent to Procedureon 12-20-2020 RAD - Consent to Procedure [id number]#[id number]:127 Normal [facility] XR Inj Shoulder Arthrogram R ighton 12-20-2020 [...] shoulder joint. Patient tolerated the procedure well. Airplane Designer image shows minimal calcification adjacent to the [...] Dose: Ka,r in mGy = 21 Normal [facility] eGFRon 12-20-2020 GFR/1.73 sq M.predicted among blacks MDRD (S/P/Bld) [Vol rate/Area] mL/min/{1.73_m2} Normal >=59 [facility] Comment on above: Order Comment: Order added by Discern Expert. Result Comment: eGFR is race adjusted. AA=. Performed By: #### 2 [id number], [id number] #### [facility] [address] [place] [address] GFR/1.73 sq M.predicted among non-blacks MDRD (S/P/Bld) [Vol rate/Area] mL/min/{1.73_m2} Normal >=59 [facility] Comment on above: Order Comment: Order added by Discern Expert. Result Comment: Senior Product Manager aracely kidney disease could be indicated at eGFR's of less than 60 mL/min/1.73m2. Kidney failure is indicated at less than 15 mL/min/1.73m2. Performed By: #### 2 [id number], [id number] #### [facility] [address] [place] [address] Physician Orderon 12-08-2020 Physician Order [id number]#[id number]:127 Normal [facility] Pre-Certification Formon Pre-Certification Form [id number]#1.00CD:127 Normal [facility] Consent for Treatmenton Consent for Treatment [id number]#1.00CD:127 Normal [facility] RAD - MISCon 12-05-2020 RAD - MISC [id number]#1.00CD:127 Normal [facility] RAD - MRI Screening Formon 0 12-05-2020 RAD - MRI Screening Form [id number]#1.00CD:127 Normal [facility] Physician Orderon 11-29-2020 Physician Order [id number]#1.00CD:127 Normal [facility] Pre-Certification Formon Pre-Certification Form [id number]#1.00CD:127 [facility] Vital Signs Date Time Vital Sign Value Performing Clinician Facility 07-06-2024 10: Body height 170.18 cm [facility] 07-06-2024 10:040 Body mass index (BMI) [Ratio] 36.5 kg/m2 [facility] 07-06-2024 10:04-0400 Body temperature 97.4 [degF] [facility] 07-06-2024 10:04-0400 Body weight 105.68 kg [facility] 07-06-2024 10:04-0400 Diastolic blood pressure 71 mm[Hg] [facility] 07-06-2024 10:04-0400 Heart rate 75 /min [facility] 07-06-2024 10:04-0400 Respiratory rate 20 /min [facility] 07-06-2024 10:04-0400 SaO2% (BldA) [Mass fraction] 97 % [facility] 07-06-2024 10:04-0400 Systolic blood pressure 135 mm[Hg] [facility] 04-01-2024 09:01-0400 Body height 170.2 cm Maryann Rubalcava MD Work Phone: [facility] 04-01-2024 09:01-0400 Body mass index (BMI) [Ratio] 35.24 kg/m2 Maryann Rubalcava MD Work Phone: [facility] 04-01-2024 09:01-0400 Body weight 102.06 kg Maryann Rubalcava MD Work Phone: [facility] 04-01-2024 09:01-0400 Diastolic blood pressure 65 mm[Hg] Maryann Rubalcava MD Work Phone: [facility] 04-01-2024 09:01-0400 Heart rate 89 /min Maryann Rubalcava MD Work Phone: [facility] 04-01-2024 09:01-0400 Respiratory rate 20 /min Maryann Rubalcava MD Work Phone: [facility] 04-01-2024 09:01-0400 Systolic blood pressure 129 mm[Hg] Maryann Rubalcava MD Work Phone: [facility] 03-11-2024 11:16-0400 Body height 170.18 cm DO Josh Bunting Work Phone: [facility] 03-11-2024 11:16-0400 Body mass index (BMI) [Ratio] 37.6 kg/m2 DO Josh Bunting Work Phone: [facility] 03-11-2024 11:16-0400 Body weight 109 kg DO Josh Bunting Work Phone: [facility] 01-19-2024 18:15-0400 Heart rate 90 /min DO Josh Bunting Work Phone: [phone] [place] [address] 01-19-2024 18:15-0400 Inhaled oxygen flow rate 1 L/min DO Josh Bunting Work Phone: [facility] 01-19-2024 18:15-0400 Respiratory rate 16 /min DO Josh Bunting Work Phone: [facility] 01-19-2024 18:15-0400 SaO2% (BldA) [Mass fraction] 92 % DO Josh Bunting Work Phone: [facility] 01-19-2024 18:00-0400 Diastolic blood pressure 65 mm[Hg] DO Josh Bunting Work Phone: [facility] 01-19-2024 18:00-0400 Systolic blood pressure 134 mm[Hg] DO Josh Bunting Work Phone: [facility] 01-19-2024 17:26-0400 Body temperature 97.5 [degF] DO Josh Bunting Work Phone: [facility] 01-19-2024 13:53-0400 Body height 167.64 cm DO Josh Bunting Work Phone: [facility] 01-19-2024 13:53-0400 Body mass index (BMI) [Ratio] 38.7 kg/m2 DO Josh Bunting Work Phone: [facility] 01-19-2024 13:53-0400 Body weight 108.86 kg DO Josh Bunting Work Phone: [facility] 11-11-2023 10:37-0500 Body height 170.2 cm Maryann Rubalcava MD Work Phone: [facility] 11-11-2023 10:37-0500 Body mass index (BMI) [Ratio] 36.02 kg/m2 Maryann Rubalcava MD Work Phone: [facility] 11-11-2023 10:37-0500 Body temperature 98.6 [degF] Maryann Rubalcava MD Work Phone: [facility] 11-11-2023 10:37-0500 Body weight 104.33 kg Maryann Rubalcava MD Work Phone: [facility] 11-11-2023 10:37-0500 Diastolic blood pressure 62 mm[Hg] Maryann Rubalcava MD Work Phone: [facility] 11-11-2023 10:37-0500 Heart rate 98 /min Maryann Rubalcava MD Work Phone: [facility] 11-11-2023 10:37-0500 Systolic blood pressure 136 mm[Hg] Maryann Rubalcava MD Work Phone: [facility] 11-03-2023 16:35-0500 Diastolic blood pressure 59 mm[Hg] DO Josh Bunting Work Phone: [facility] 11-03-2023 16:35-0500 Heart rate 91 /min DO Josh Bunting Work Phone: [facility] 11-03-2023 16:35-0500 Respiratory rate 16 /min DO Josh Bunting Work Phone: [facility] 11-03-2023 16:35-0500 SaO2% (BldA) [Mass fraction] 92 % DO Josh Bunting Work Phone: [facility] 11-03-2023 16:35-0500 Systolic blood pressure 117 mm[Hg] DO Josh Bunting Work Phone: [facility] 11-03-2023 15:41-0500 Body temperature 97.4 [degF] DO Josh Bunting Work Phone: [facility] 11-03-2023 15:11-0500 Inhaled oxygen flow rate 3 L/min DO Josh Bunting Work Phone: [facility] 11-03-2023 11:46-0500 Body height 170.18 cm DO Josh Bunting Work Phone: [facility] 11-03-2023 11:46-0500 Body mass index (BMI) [Ratio] 37.6 kg/m2 DO Josh Bunting Work Phone: [facility] 11-03-2023 11:46-0500 Body weight 109 kg DO Josh Bunting Work Phone: [facility] 10-14-2023 09:40-0500 Body height 170.18 cm Karime Nguyen Other [facility] 10-14-2023 09:40-0500 Body mass index (BMI) [Ratio] 37.9 kg/m2 Karime Nguyen Other [employer] Other 10-14-2023 09:40-0500 Body weight 109.77 kg Karime Nguyen Other [employer] Other 10-14-2023 09:40-0500 Body weight 109.76 kg DO Josh Bunting Work Phone: [facility] 10-02-2023 09:10-0500 Body height 170.18 cm DO Josh Bunting Work Phone: [facility] 10-02-2023 09:10-0500 Body mass index (BMI) [Ratio] 37.3 kg/m2 DO Josh Bunting Work Phone: [facility] 10-02-2023 09:10-0500 Body weight 108 kg DO Josh Bunting Work Phone: [facility] 10-02-2023 08:53-0500 Body temperature 98.5 [degF] DO Josh Bunting Work Phone: [facility] 10-02-2023 08:53-0500 Diastolic blood pressure 82 mm[Hg] DO Josh Bunting Work Phone: [facility] 10-02-2023 08:53-0500 Heart rate 92 /min DO Josh Bunting Work Phone: [facility] 10-02-2023 08:53-0500 Respiratory rate 18 /min DO Josh Bunting Work Phone: [facility] 10-02-2023 08:53-0500 SaO2% (BldA) [Mass fraction] 95 % DO Josh Bunting Work Phone: [facility] 10-02-2023 08:53-0500 Systolic blood pressure 169 mm[Hg] DO Josh Bunting Work Phone: [facility] 09-16-2023 09:20-0500 Body height 170.18 cm Karime Nguyen Other [employer] Other 09-16-2023 09:20-0500 Body mass index (BMI) [Ratio] 37.59 kg/m2 Karime Nguyen Other [employer] Other 09-16-2023 09:20-0500 Body weight 108.86 kg Karime Nguyen Other [employer] Other 07-29-2023 16:43-0400 Body height 167.64 cm DO Josh Bunting Work Phone: [phone] [place] [address] 07-29-2023 16:43-0400 Body temperature 98 [degF] DO Josh Bunting Work Phone: [facility] 07-29-2023 16:43-0400 Body weight 104.32 kg DO Josh Bunting Work Phone: [facility] 07-29-2023 16:43-0400 Diastolic blood pressure 74 mm[Hg] DO Josh Bunting Work Phone: [facility] 07-29-2023 16:43-0400 Heart rate 99 /min DO Josh Bunting Work Phone: [phone] [place] [address] 07-29-2023 16:43-0400 Respiratory rate 24 /min DO Josh Bunting Work Phone: [facility] 07-29-2023 16:43-0400 SaO2% (BldA) [Mass fraction] 94 % DO Josh Bunting Work Phone: [facility] 07-29-2023 16:43-0400 Systolic blood pressure 141 mm[Hg] DO Josh Bunting Work Phone: [facility] 03-26-2023 11:26-0400 Heart rate 88 /min Donny Peralta APRN.CQ DEVELOPER Work Phone: [facility] 03-26-2023 11:26-0400 Respiratory rate 17 /min Donny Peralta APRN.CQ DEVELOPER Work Phone: [facility] 03-26-2023 11:26-0400 SaO2% (BldA) [Mass fraction] 98 % Donny Peralta APRN.CQ DEVELOPER Work Phone: [facility] 04-16-2022 09:30-0400 Body height 170.18 cm Mariel Sharitommie Other [employer] Other 04-16-2022 09:30-0400 Body temperature 97.6 [degF] Mariel Mcgraw Other [employer] Other 04-16-2022 09:30-0400 Diastolic blood pressure 78 mm[Hg] Mariel Mccarthyban Other [employer] Other 04-16-2022 09:30-0400 Respiratory rate 20 /min Mariel Mccarthyban Other [employer] Other 04-16-2022 09:30-0400 SaO2% (BldA) [Mass fraction] Mariel Mccarthyban Other [employer] Other 04-16-2022 09:30-0400 Systolic blood pressure 154 mm[Hg] Mariel Chaban Other [employer] Other 01-08-2022 14:30-0400 Body height 170.18 cm Mariel Mccarthyban Other [employer] Other 01-08-2022 14:30-0400 Body mass index (BMI) [Ratio] 37.27 kg/m2 Mariel Mccarthyban Other [employer] Other 01-08-2022 14:30-0400 Body temperature 97.4 [degF] Mariel Mccarthyban Other [employer] Other 01-08-2022 14:30-0400 Body weight 107.96 kg Mariel Mccarthyban Other [employer] Other 01-08-2022 14:30-0400 Diastolic blood pressure 72 mm[Hg] Mariel Chaban Other [employer] Other 01-08-2022 14:30-0400 Respiratory rate 20 /min Mariel Mccarthyban Other [employer] Other 01-08-2022 14:30-0400 SaO2% (BldA) [Mass fraction] 95 % Mariel Mccarthyban Other [employer] Other 01-08-2022 14:30-0400 Systolic blood pressure 130 mm[Hg] Ulyssesal Chaban Other [employer] Other 09-06-2021 10:00-0500 Body height 170.18 cm Mariel Mccarthyban Other [employer] Other 09-06-2021 10:00-0500 Body mass index (BMI) [Ratio] 37.59 kg/m2 Mariel Mccarthyban Other [employer] Other 09-06-2021 10:00-0500 Body temperature 96.8 [degF] Mariel Mccarthyban Other [employer] Other 09-06-2021 10:00-0500 Body weight 108.86 kg Mariel Mccarthyban Other [employer] Other 09-06-2021 10:00-0500 Diastolic blood pressure 68 mm[Hg] Mariel Chaban Other [employer] Other 09-06-2021 10:00-0500 Respiratory rate 20 /min Mariel Mccarthyban Other [employer] Other 09-06-2021 10:00-0500 SaO2% (BldA) [Mass fraction] 95 % Mariel Mccarthyban Other [employer] Other 09-06-2021 10:00-0500 Systolic blood pressure 136 mm[Hg] Kamal Chaban Other [employer] Other 07-23-2021 10:30-0400 Body height 170.18 cm Mariel Mcgraw Other [employer] Other 07-23-2021 10:30-0400 Body mass index (BMI) [Ratio] 38.21 kg/m2 Mariel Mcgraw Other [employer] Other 07-23-2021 10:30-0400 Body temperature 96.1 [degF] Mariel Mcgraw Other [employer] Other 07-23-2021 10:30-0400 Body weight 110.68 kg Mariel Mcgraw Other [employer] Other 07-23-2021 10:30-0400 Diastolic blood pressure 78 mm[Hg] Mariel Mcgraw Other [employer] Other 07-23-2021 10:30-0400 Respiratory rate 20 /min Mariel Mcgraw Other [employer] Other 07-23-2021 10:30-0400 SaO2% (BldA) [Mass fraction] 95 % Mariel Mcgraw Other [employer] Other 07-23-2021 10:30-0400 Systolic blood pressure 150 mm[Hg] Mariel Mcgraw Other [employer] Other Encounters Encounter Date Encounter Type Care Provider Facility Start: 07-26-2024 End: 07-26-2024 ambulatory Savanna Mcclain MD Facility: [facility] Start: 07-09-2024 End: 07-09-2024 ambulatory FEROZ PATEL Not Available Start: 07-08-2024 Evaluation and management of inpatient [facility] Start: 07-06-2024 End: 07-06-2024 ambulatory [facility] Work Phone: Start: 07-06-2024 End: 07-06-2024 Patient encounter procedure [facility] Work Phone: Start: 07-01-2024 End: 07-01-2024 ambulatory [facility] Start: 06-15-2024 End: 06-15-2024 ambulatory DAMARI TOWNSEND Not Available Start: 05-24-2024 End: 05-25-2024 Evaluation and management of inpatient [facility] Start: 05-17-2024 End: 05-17-2024 ambulatory JOSH VILLASEÑOR [facility] Start: 05-17-2024 End: 05-17-2024 ambulatory [facility] Start: 04-26-2024 End: 04-26-2024 ambulatory Savanna Mcclain MD Facility:[facility] Start: 04-21-2024 End: 04-21-2024 ambulatory BRYCE URENA Not Available Start: 04-12-2024 End: 04-12-2024 ambulatory Savanna Mcclain MD Facility: [facility] Start: 04-09-2024 End: 04-09-2024 ambulatory FEROZ PATEL Not Available Start: 04-01-2024 End: 04-01-2024 Subsequent hospital visit by physician Par X-Ray Ed [facility] Comment on above: Cervical myelopathy (Multi) Start: 04-01-2024 End: 04-01-2024 ambulatory [facility] Start: 04-01-2024 End: 04-01-2024 Office outpatient visit 40 minutes Maryann Rubalcava MD Work Phone: [facility] Comment on above: 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 (Primary Dx); Cervical myelopathy (Multi) Start: 04-01-2024 End: 04-01-2024 ambulatory [facility] Start: 03-31-2024 End: 03-31-2024 Patient encounter procedure DO Josh Bunting Work Phone: [facility] Work Phone: Start: 03-31-2024 End: 03-31-2024 ambulatory DO Josh Bunting Work Phone: [facility] Work Phone: Start: 03-15-2024 End: 03-15-2024 ambulatory Savanna Mcclain MD Facility: [facility] Start: 03-11-2024 End: 03-11-2024 Patient encounter procedure DO Josh Bunting Work Phone: [facility] Work Phone: Start: 02-25-2024 End: 02-25-2024 ambulatory YOGESH BECKER V Not Available Start: 02-16-2024 End: 02-16-2024 ambulatory Savanna Mcclain MD Facility: [facility] Start: 01-26-2024 End: 01-26-2024 ambulatory YOGESH BECKER V Not Available Start: 01-19-2024 End: 01-19-2024 Admission to same day surgery center DO Josh Bunting Work Phone: [facility] Start: 01-19-2024 End: 01-19-2024 ambulatory DO Josh Bunting Work Phone: [facility] Work Phone: Start: 01-12-2024 End: 01-12-2024 Patient encounter procedure DO Josh Bunting Work Phone: [facility] Work Phone: Start: 01-12-2024 End: 01-12-2024 ambulatory DO Josh Bunting Work Phone: [facility] Work Phone: Start: 01-12-2024 Encounter for preprocedural laboratory examination Yogesh Ray [facility] Start: 01-08-2024 End: 01-08-2024 ambulatory FEROZ PATEL Not Available Start: 01-06-2024 End: 01-06-2024 ambulatory YOGESH BECKER V Not Available Start: 12-16-2023 End: 12-16-2023 Patient encounter procedure DO Josh Bunting Work Phone: [facility] [address] Work Phone: Start: 12-16-2023 End: 12-16-2023 ambulatory DO Josh Bunting Work Phone: [facility] Work Phone: Start: 12-08-2023 End: 12-08-2023 ambulatory Savanna Mcclain MD Facility:[facility] Start: 11-25-2023 End: 11-25-2023 Patient encounter procedure DO Josh Bunting Work Phone: [facility] [place] Work Phone: Start: 11-25-2023 End: 11-25-2023 ambulatory DO Josh Bunting Work Phone: [facility] Work Phone: Start: 11-24-2023 End: 11-24-2023 Patient encounter procedure DO Josh Bunting Work Phone: [facility] [place] Work Phone: Start: 11-24-2023 End: 11-24-2023 ambulatory DO Josh Bunting Work Phone: [facility] Work Phone: Start: 11-17-2023 End: 11-17-2023 ambulatory Savanna Mcclain MD Facility: [facility] Start: 11-11-2023 End: 11-11-[facility]: 11-11-2023 End: 11-11-2023 Office consultation new/estab patient 80 min Maryann Rubalcava MD Work Phone: [facility] Comment on above: Cervical myelopathy (CMS/HCC) (Primary Dx); Sagittal plane imbalance; 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; Lumbar stenosis with neurogenic claudication Start: 11-10-2023 End: 11-10-2023 ambulatory YOGESH BECKER V Not Available Start: 11-03-2023 End: 11-03-2023 Admission to same day surgery center DO Josh Bunting Work Phone: [facility] Start: 11-03-2023 End: 11-03-2023 ambulatory DO Josh Bunting Work Phone: [facility] Work Phone: Start: 10-23-2023 End: 10-23-2023 Patient encounter procedure DO Josh Bunting Work Phone: [facility]-Pre-Surgical Testing Work Phone: Start: 10-23-2023 End: 10-23-2023 ambulatory DO Josh Bunting Work Phone: [facility] Work Phone: Start: 10-14-2023 Office outpatient vi sit 40 minutes Karime Nguyen [facility] Start: 10-14-2023 End: 10-14-2023 ambulatory YOGESH BECKER V [facility] [employer] Other Start: 10-14-2023 End: 10-14-2023 Patient encounter procedure DO Josh Bunting Work Phone: [facility] Work Phone: Start: 10-09-2023 End: 10-09-2023 ambulatory FEROZ PATEL Not Available Start: 10-02-2023 End: 10-02-2023 Admission to same day surgery center DO Josh Bunting Work Phone: [facility] Start: 10-02-2023 End: 10-02-2023 ambulatory DO Josh Bunting Work Phone: [facility] Work Phone: Start: 09-30-2023 End: 09-30-2023 ambulatory Savanna Mcclain MD Facility:[facility] Start: 09-29-2023 End: 09-29-2023 ambulatory Savanna Mcclain MD Facility: [facility] Start: 09-26-2023 End: 09-26-2023 ambulatory IMTIAZ DEJUAN Not Available Start: 09-23-2023 End: 09-23-2023 Patient encounter procedure DO Josh Bunting Work Phone: [facility]Pre-Surgical Testing Work Phone: Start: 09-23-2023 End: 09-23-2023 ambulatory DO Josh Bunting Work Phone: [facility] Work Phone: Start: 09-22-2023 End: 09-22-2023 ambulatory Savanna Mcclain MD Facility:[facility] Start: 09-16-2023 End: 09-16-2023 ambulatory Karime Nguyen Other [facility] [employer] Other Start: 09-16-2023 Office outpatient ne w 45 minutes Karime Nguyen [facility] Start: 09-16-2023 End: 09-16-2023 Patient encounter procedure DO Josh Bunting Work Phone: [facility] Work Phone: Start: 08-11-2023 End: 08-11-2023 Patient encounter procedure DO Josh Bunting Work Phone: [facility] [place] Work Phone: Start: 08-11-2023 End: 08-11-2023 ambulatory DO Josh Bunting Work Phone: [facility] Work Phone: Start: 08-01-2023 End: 08-01-2023 Patient encounter procedure DO Josh Bunting Work Phone: [facility] Work Phone: Start: 08-01-2023 End: 08-01-2023 ambulatory Josh Bunting Facility:[facility] Start: 07-29-2023 End: 07-29-2023 Emergency department patient visit DO Josh Bunting Work Phone: [facility]-Emergency Room Work Phone: Start: 06-12-2023 End: 06-12-2023 ambulatory Mariel Mcgraw Other [employer] Other Start: 06-12-2023 Telephone encounter Mariel Mcgraw [facility] Start: 04-21-2023 End: 04-21-2023 Patient encounter procedure DO Josh Bunting Work Phone: [facility] Work Phone: Start: 04-21-2023 End: 04-21-2023 ambulatory DO Josh Bunting Work Phone: [facility] Work Phone: Start: 03-26-2023 End: 03-26-2023 ambulatory DONNY PERALTA Facility:[facility] Start: 03-26-2023 End: 03-26-2023 Patient encounter procedure Donny Peralta VOLUNTEER SERVICES MANAGER.CQ DEVELOPER Work Phone: Otolaryngology Comment on above: Laryngeal candidiasi s (Primary Dx); Glossitis; Oral candidiasis; Hoarseness of voice; History of alcohol abuse Start: 02-10-2023 End: 02-10-2023 ambulatory DO Josh Bunting Work Phone: [facility] Work Phone: Start: 02-10-2023 End: 02-10-2023 Patient encounter procedure DO Josh Bunting Work Phone: [facility] Work Phone: Start: 12-31-2022 End: 12-31-2022 ambulatory DO Josh Bunting Work Phone: [facility] Work Phone: Start: 12-31-2022 End: 12-31-2022 Patient encounter procedure DO Josh Bunting Work Phone: [facility] [address] Work Phone: Start: 11-06-2022 End: 11-06-2022 ambulatory DO Josh Bunting Work Phone: [facility] Work Phone: Start: 11-06-2022 End: 11-06-2022 Patient encounter procedure DO Josh Bunting Work Phone: [facility] Work Phone: Start: 09-30-2022 End: 09-30-2022 ambulatory DO Josh Bunting Work Phone: [facility] Work Phone: Start: 09-30-2022 End: 09-30-2022 Patient encounter procedure DO Ojsh Bunting Work Phone: [facility] Start: 06-19-2022 End: 06-19-2022 Patient encounter procedure DO Josh Bunting Work Phone: [facility] Start: 06-05-2022 End: 06-05-2022 ambulatory Alexis Abdi Other [employer] Other Start: 06-05-2022 Telephone encounter Alexis Abdi [facility] [employer] Start: 04-16-2022 End: 04-16-2022 ambulatory Kamal Chaban Other [employer] Other Start: 04-16-2022 Office outpatient vi sit 25 minutes Kamal Chaban [facility] Start: 01-08-2022 End: 01-08-2022 ambulatory Kamal Chaban Other [employer] Other Start: 01-08-2022 Office outpatient vi sit 25 minutes Kamal Chaban [facility] Start: 12-07-2021 End: 12-07-2021 ambulatory Kamal Chaban Other [employer] Other Start: 12-07-2021 Telephone encounter Kamal Chaban [facility] Start: 11-09-2021 ([facility] C Vac) [facility] Co vid Vaccine Courtney Laminet [facility] Start: 11-09-2021 End: 11-09-2021 ambulatory Courtney Fitt Other [employer] Other Start: 09-06-2021 End: 09-06-2021 ambulatory Kamal Chaban Other [employer] Other Start: 09-06-2021 Office outpatient vi sit [...] Screening for malign ant neoplasm of colon [facility] Start: 11-11-2029 DTaP/Tdap/Td Vaccine s (2 - Td or Tdap) DTaP/Tdap/Td Vaccines (2 - Td or Tdap) [facility] Start: 06-27-2024 Influenza vaccination Influenz a Vaccine (Season Ended) [facility] Start: 04-01-2024 End: 10-01-2024 Enroll patient in spine cervical NO fusion care plan Enroll patient in spine cervical NO fusion care plan Procedures Routine Expected: 04/01/2024, Expires: 10/01/2024 [facility] Work Phone: Comment on above: Expected: 04/01/2024 , Expires: 10/01/2024 Start: 04-01-2024 End: 04-01-2025 XR Cervical spine 4 or 5 Views [facility] Service Area Work Phone: Comment on above: Expected: 04/01/2024 (Approximate), Expires: 04/01/2025 Once for 1 Occurrenc es starting 04/01/2024 until 04/01/2024 Start: 01-19-2024 End: 01-19-2024 [facility] Start: 11-24-2023 [facility] Start: 11-11-2023 End: 11-11-2024 MR Cervical spine WO contrast MR cervical spine wo IV contrast Imaging Routine Cervical myelopathy (CMS/HCC) Expected: 11/11/2023, Expires: 11/11/2024 [facility] Work Phone: Comment on above: Expected: 11/11/2023 , Expires: 11/11/2024 Start: 11-11-2023 End: 11-11-2024 X-ray scoliosis 2 View (NON EOS) [facility] Service Area Work Phone: Comment on above: Expected: 11/11/2023 , Expires: 11/11/2024 Start: 11-03-2023 [facility] Start: 11-03-2023 [facility] Start: 10-02-2023 Repair of left ingui nal hernia using surgical mesh OR Inguinal Hernia Repair W/Mesh Graft (Left) [facility] Start: 10-02-2023 End: 10-02-2023 [facility] Start: 06-27-2023 COVID-19 Vaccine ( season) COVID-19 Vaccine ( season) [facility] Start: 06-27-2023 Influenza vaccination C [facility] Start: 03-26-2023 End: 05-26-2023 Comprehensive metabolic 2000 panel - Serum or Plasma [facility] Work Phone: Comment on above: Expected: 03/26/2023 , Expires: 05/26/2023 Start: 10-27-2022 DEPRESSION ASSESSMENT DEPRESSION ASS ESSMENT [facility] Start: 01-04-2022 COVID-19 VACCINE (3 - Booster for Dereck series) COVID-19 VACCINE (3 - Booster for Dereck series) [facility] Start: 08-09-2020 Pneumococcal Vaccine : 65+ Years (2 - PCV) Pneumococcal Vaccine: 65+ Years (2 - PCV) [facility] Start: 08-09-2020 Pneumococcal Vaccine : 65+ Years (2 of 2 - PCV) Pneumococcal Vaccine: 65+ Years (2 of 2 - PCV) [facility] Start: 08-09-2020 Pneumococcal Vaccine : Pediatrics (0 to 5 Years) and At-Risk Patients (6 to 64 Years) (2 - PCV) Pneumococcal Vaccine: Pediatrics (0 to 5 Years) and At-Risk Patients (6 to 64 Years) (2 - PCV) [facility] Start: 2018 RSV patient s and/or patients aged 60+ years (1 - 1-dose 60+ series) RSV patients and/or patients aged 60+ years (1 - 1-dose 60+ series) [facility] Start: 2013 PROSTATE CANCER SCREENING DISCUSSION PROSTATE CANCER SCREENING DISCUSSION [facility] Start: 2008 SHINGRIX VACCINE (1 of 2) SHINGRIX VACCINE (1 of 2) [facility] Start: 2008 Zoster Vaccines (1 of 2) Zoste r Vaccines (1 of 2) [facility] Start: 2003 COLOGUARD (FIT-DNA) COLOGUARD (FIT-D NA) [facility] Start: 2003 Colonoscopy COLONOSCOPY [facility] Start: 2003 COLORECTAL CANCER SCREENING COLORECTAL CANCER SCREENING [facility] Start: [address] COLONOGRAPHY [facility] Start: 2003 DIABETES SCREEN DIABETES SCREEN [facility] Start: 2003 FECAL OCCULT BLOOD FECAL OCCULT BLOO D [facility] Start: 2003 SIGMOIDOSCOPY SIGMOIDOSCOPY [facility] Start: 1993 LIPID SCREEN LIPID SCREEN [facility] Start: 1977 Urine microalbumin profile DTAP,TDAP,TD (1 - Tdap) [facility] Start: 1977 Urine screening for protein Diabetes: Urine Protein Screening [facility] Start: 1976 HEPATITIS C SCREENING HEPATITIS C [facility] Start: 1976 Hepatitis C screening Hepatitis C [facility] Start: 1976 HIV SCREENING HIV SCREENING [facility] Start: 1968 Diabetic foot examination Diabetes: Foot Exam [facility] Start: 1968 Glaucoma screening Diabetes: R etinopathy Screening [facility] Start: 1959 MMR Vaccines (1 of 1 - Standard series) MMR Vaccines (1 of 1 - Standard series) [facility] Start: 1958 Annual wellness visit Medicare Initial Physical (IPPE) [facility] Start: 1958 Hemoglobin A1c measurement Diabetes: Hemoglobin A1C [facility] Start: 1958 HIV screening HIV Screening [facility] Start: 1958 Lipid panel Lipid Panel [facility] Start: 1958 Screening for malign ant neoplasm of colon [facility] Lopez w/o facetec foramot/dskc 1/2 vrt seg crv Laminectomy Cervical Cervical myelopathy (Multi) Cervical spinal 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 segment disease 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 procedure [facility] OR Methylmalonate [Moles/volume] in Serum or Plasma [facility] Patient Education [facility] Work Phone: Patient referral [facility] Work Phone: [facility] Immunizations Immunization Date Immunization Notes Care Provider Fa dawsonty 11-09-2021 COVID-19 (Moderna), Age 12+ DO Josh Melvin Work Phone: [facility] 11-09-2021 COVID-19 Sharad Espino Other [facility] 10-16-2021 influenza, injectabl e, quadrivalent, contains preservative Maryann Rubalcava MD Work Phone: [facility] Work Phone: 10-16-2021 influenza virus vaccine, unspecified formulation Maryann Rubalcava MD Work Phone: [facility] Work Phone: 01-04-2021 COVID-19 (J&J) DO Josh Melvin Work Phone: [facility] 01-04-2021 COVID-19 Vaccine Dereck - Documentation Purposes Only Kamal Chaban Other [facility] 08-18-2020 Seasonal, quadrivalent, recombinant, injectable influenza vaccine, preservative free Maryann Rubalcava MD Work Phone: [facility] 07-27-2020 influenza, seasonal, injectable Maryann Rubalcava MD Work Phone: [facility] 11-11-2019 tetanus toxoid, reduced diphtheria toxoid, and acellular pertussis vaccine, adsorbed Kamal Chaban Other [place] [employer] Other 08-16-2019 influenza, seasonal, injectable, preservative free Maryann Rubalcava MD Work Phone: [facility] Work Phone: 08-09-2019 influenza, injectabl e, quadrivalent, preservative free Maryann Rubalcava MD Work Phone: [facility] 08-09-2019 pneumococcal polysaccharide vaccine, 23 valent Maryann Rubalcava MD Work Phone: [facility] 08-08-2019 pneumococcal polysaccharide vaccine, 23 valent Maryann Rubalcava MD Work Phone: [facility] Work Phone: 09-08-2018 influenza, injectabl e, quadrivalent, contains preservative Maryann Rubalcava MD Work Phone: [facility] 07-29-2017 influenza, injectable,quadrivalen t, preservative free, pediatric Kamal Chaban Other [employer] Other 10-14-2009 pneumococcal polysaccharide vaccine, 23 asher Rubalcava MD Work Phone: [facility] Work Phone: NEGATED: Highlighted row has not occurred!07-29-2017 influenza, injectable,quadrivalen t, preservative free, pediatric Mariel Mcgraw Other [employer] Other Payers Date Payer Category Payer Self-pay [id number] 2022 Private Health Insurance 2021 Medicare [id number] 2021 Medicare [id number] 2021 Medicare [id number] 2021 Medicare [id number] 1958 Unknown [id number] 1958 Unknown [id number] 9 1958 Unknown [id number] 9 1958 Unknown [id number] 9 1958 Unknown [id number] 9 1958 Unknown [id number] 2.16.840.1.610925.3.579.2.125 9 1960 Unknown [id number] 2.16.840.1.917756.3.579.2.125 9 1960 Unknown [id number] 2.16.840.1.720334.3.579.2.125 9 1958 Unknown [id number] 2.16.840.1.325036.3.579.2.125 9 1958 Unknown [id number] 2.16.840.1.790350.3.579.2.125 9 1958 Unknown [id number] 2.16.840.1.139521.3.579.2.125 9 1958 Unknown [id number] 2.16.840.1.552582.3.579.2.125 9 1958 Unknown [id number] 2.16.840.1.460790.3.579.2.124 7 1958 Unknown [id number] 2.16.840.1.803157.3.579.2.124 7 1958 Unknown [id number] 2.16.840.1.384574.3.579.2.124 7 1958 Unknown [id number] 2.16.840.1.089682.3.579.2.196 1958 Unknown [id number] 2.16.840.1.107964.3.579.2.196 1958 Unknown [id number] 2.16.840.1.783758.3.579.2.196 1958 Unknown [id number] 2.16.840.1.136634.3.579.2.196 1958 Unknown [id number] 2.16.840.1.529497.3.579.2.196 1958 Unknown [id number] 2.16.840.1.902847.3.579.2.196 1958 Unknown [id number] 2.16.840.1.134266.3.579.2.196 1958 Unknown [id number] 2.16.840.1.031266.3.579.2.196 1958 Unknown [id number] 2.16.840.1.518811.3.579.2.196 1958 Unknown [id number] 2.16.840.1.648451.3.579.2.196 1958 Unknown [id number] 2.16.840.1.610266.3.579.2.196 1958 Unknown [id number] 2.16.840.1.721697.3.579.2.124 5 1958 Unknown [id number] 2.16.840.1.739526.3.579.2.124 5 1958 Unknown [id number] 2.16.840.1.771729.3.579.2.124 2 1958 Unknown [id number] 2.16.840.1.967751.3.579.2.124 2 1958 Unknown [id number] 2.16.840.1.287962.3.579.2.124 2 1958 Unknown [id number] 2.16.840.1.421713.3.579.2.124 2 Medicare Medicare [id number] Medicare MMO MCR Adv PFFS [id number] Medicare [employer] MCR [id number] Unknown [id number] 2.16.840.1.050602.3.579.2.531 Unknown [id number] 2.16.840.1.312197.3.579.2.531 Unknown [id number] 2.16.840.1.489597.3.579.2.531 Unknown [id number] 2.16.840.1.523866.3.579.2.531 Unknown [id number] 2.16.840.1.272787.3.579.2.531 Unknown [id number] 2.16.840.1.415518.3.579.2.531 Unknown [id number] 2.16.840.1.025476.3.579.2.531 Unknown [id number] 2.16.840.1.355726.3.579.2.531 Unknown [id number] 2.16.840.1.644068.3.579.2.531 Unknown [id number] 2.16.840.1.529927.3.579.2.531 Unknown [id number] 2.16.840.1.876628.3.579.2.531 Unknown [id number] 2.16.840.1.814117.3.579.2.531 Unknown [id number] 2.16.840.1.528957.3.579.2.531 Unknown [id number] 2.16.840.1.376338.3.579.2.531 Worker's Compensation [facility] [id number] Social History Date Type Detail Facility Start: 11-11-2023 End: 04-01-2024 Sex Assigned At [facility] [employer] Other Start: 05-22-2021 End: 05-22-2021 Tobacco smoking status OHIS Smoker (finding) [facility] Start: 1960 Sex Assigned At Male F [facility] Start: 03-26-2023 End: 07-06-2024 Tobacco smoking status OHIS Ex-smoker [facility] History of tobacco use Cigarette Smoker [facility] Start: 03-26-2023 End: 11-11-2023 Tobacco use and exposure Smokeless tobacco non-user [facility] Start: 03-26-2023 Alcohol intake Current drinke r of alcohol (finding) [facility] Start: 03-26-2023 Alcohol Comment social [facility] Start: 1960 Sex Assigned At Not on file [facility] Start: 11-11-2023 Tobacco smoking status NHIS Never smoked tobacco [facility] Work Phone: Start: 11-01-2023 End: 04-01-2024 Exposure to SARS-CoV-2 (event) Not sure [facility] Start: 11-11-2023 End: 04-01-2024 History of Social function [facility] Work Phone: Medical Equipment Procedure Code Equipment Code Equipment Origin al Text Equipment Identifier Dates Repair, hernia, ventral, with mesh Abdominal hernia surgical mesh, composite-polymer [id number] FDA Start: 01-19-2024 Repair, hernia, inguinal, with mesh Abdominal hernia surgical mesh, synthetic polymer, non-bioabsorbable [id number] [facility] Start: 11-03-2023 [id number] Start: 08-14-2023 Goals Date Patient Goal Desired Activity /State Personal health goal Clinical Notes 04-17-2021 to 04-01-2024 Maryann Rubalcava MD - 04/01/2024 9:00 AM Carmen Rubalcava MD - 11/11/2023 10:00 AM EST Note Date & Type Note Facility 04-01-2024 History of Present illness Narrative It was a pleasure to see Mr. Meier at the [facility] at [facility]. Patient is a 62-year-old male [...] groups. There is evident evidence of a terminal carman weakness bilaterally which is about 80% of [...] L2-L3 and L1-L2. 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 [...] the further treatment plan. Maryann Rubalcava MD, [facility] Cushion Builder of Neurological Surgery [facility] [employer] Attending Surgeon Director - Minimally Invasive Spine Surgery [place], [place] ---Some of this note was completed using [employer] voice recognition technology and sometimes the software misinterprets words. This may include unintended errors with respect to translation of words, typographical errors or grammar errors which may not have been identified prior to finalization of the chart note. Please take this into account when reading this note--- documented in this encounter [facility] Work Phone: 11-11-2023 History of Present illness Narrative It was a pleasure to see Mr. Meier at the [facility] Clinic at [facility]. Patient is a 62-year-old male [...] L2-L3 and L1-L2. 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 [...] All questions were answered. Maryann Rubalcava MD, [facility] Cushion Builder of Neurological Surgery [facility] [employer] Attending Surgeon Director - Minimally Invasive Spine Surgery [place], [place] Some of this note was completed using [employer] voice recognition technology and sometimes the software misinterprets words. This may include unintended errors with respect to translation of words, typographical errors or grammar errors which may not have been identified prior to finalization of the chart note. Please take this into account when reading this note documented in this encounter [facility] Work Phone: 10-14-2023 Evaluation note Encounter Date [...] region with neurogenic claudication (ICD-10 - M48.062) [facility] Other 12-05-2023 NoteProcedure Performed by: Savanna Mcclain M.D. Procedure: Placement of Yesmail Impulse Generator Battery under fluoroscopic guidance *Battery [...] by Johny MATUTE, Savanna Darden 09/30/23 13:12 [facility] 09-30-2023 NoteHistory of Present Illness [...] signed by Savanna Mcclain MD 09/30/23 13:10 [facility] 09-16-2023 Evaluation note* Encounter Date [...] weeks. Aug, Lumbar radiculopathy (ICD-10 - M54.16) [facility] 08-17-2023 Evaluation note* Encounter Date Diagnosis Assessment Notes Treatment Notes Treatment Clinical Notes May, Gastroesophageal ref lux disease, unspecified whether esophagitis present (ICD-10 - K21.9) [facility] 05-31-2023 NoteHNO ID: [id number] Author: Donny Peralta APRN.CQ DEVELOPER Service: ? Author Type: Nurse Practitioner Type: [...] 2 to 3 weeks time. Donny Peralta APRN.CQ DEVELOPER CC: Josh Melvin [facility]05-31-2023 History of Present illness Narrative* Donny Peralta APRN.CQ DEVELOPER - 03/26/2023 11:14 AM EDT Mr. Meier [...] 2 to 3 weeks time. Donny Peralta APRN.CQ DEVELOPER CC: Josh Melvin DO [facility]* Encounter Date Diagnosis Assessment Notes Treatment Notes Treatment Clinical Notes Mar, Obstructive sleep ap dee (ICD-10 - G47.33) Please get a compliance report now and before next visit Mar, Gastroesophageal ref lux disease, unspecified whether esophagitis present (ICD-10 - K21.9) Mar, Lung nodule (ICD-10 - R91.1) [facility] 03-15-2022 Evaluation note* Encounter Date Diagnosis [...] be after his CT in 1 year [facility] Other 01-14-2022 Evaluation note* Encounter Date Diagnosis Assessment Notes Treatment Notes Treatment Clinical Notes Oct, Encounter for immunization (ICD-10 - Z23) Patient presents for COVID-19 vaccination BOOSTER. Pre-screening form answers evaluated with patient. Patient denies current illness or allergic reaction to component of COVID-19 vaccine. Patient provided with current copy of EUA. [facility] Other 09-27-2021 Evaluation note* Encounter Date Diagnosis Assessment Notes Treatment Notes Treatment Clinical Notes Jun, Lung nodule (ICD-10 - R91.1) Jun, Chronic cough (ICD-1 0 - R05) Jun, Obstructive sleep ap dee (ICD-10 - G47.33) Jun, Gastroesophageal ref lux disease, unspecified whether esophagitis present (ICD-10 - K21.9) [facility] 06-24-2021 NotePatient: KOKO MEIER Age: 60 [...] mg, 1 tab(s), Oral, BID, 0 [facility]ill[facility]s) [facility]Result Comment: Electronically Signed By: Kwame Yang DO\Date and Time Signed: 04/19/21 12:56 EDT 04-17-2021 [id number]:[id number] [facility] CenterEvaluation noteNo InformationNort Andre Phillipe Other Evaluation noteNort Andre Phillipe Other Evaluation noteNo assessment information available [facility] Work Phone: Evaluation note* Diagnosis Laryngeal candidiasis- Primary Other candidiasis of other specified sites Glossitis Oral candidiasis Candidiasis of mouth Hoarseness of voice Dysphonia History of alcohol abuse Nondependent alcohol abuse, in remission [facility] Cervical myelopathy (CMS/HCC)- Primary Cervical spondylosis with myelopathy Sagittal plane imbalance Other curvatures of spine associated with other conditions 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 Lumbar stenosis with neurogenic claudication documented in this encounter [facility] Work Phone: Evaluation note* Diagnosis Onset Date Resolution Status Cervical stenosis of spine a cute History of fusion of cervical spine acute History of lumbar fusion acu te Neurogenic claudication due to lumbar spinal stenosis acute [facility] Work Phone: Evaluation note* Diagnosis Cervical spinal 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 segment disease 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 procedure- Primary Cervical myelopathy (Multi) Cervical spondylosis with myelopathy documented in this encounter [facility] Work Phone: Evaluation note* Diagnosis Cervical myelopathy (Multi) Cervical spondylosis with myelopathy documented in this encounter [facility] Work Phone: Evaluation note* Diagnosis Onset Date Resolution Status GERD (gastroesophageal reflux disease) acute Obstructive sleep apnea acut e [facility] Work Phone: History general Narrative - Reported* [...] finger 10/2019 Hospitalization History see sx history [facility] Other Hispdim general Narrative - ReportedNort Andre Phillipe Other Hisyptu general Narrative - Reported* Type Description Date [...] finger 10/2019 Hospitalization History see sx history [facility] Other Hospital Discharge instructions Additional Instructions Please call Dr. Becker' office to reschedule your surgery.[facility] Work Phone: Hospital Discharge instructions Additional Instructions 1. No driving if taking narcotic pain medication. 2. No lifting more than 20 pounds for 3 weeks. 3. May shower.[facility] Work Phone: Hospital Discharge instructions Additional Instructions 1. No driving if taking narcotic pain medication. 2. No lifting more than 20 pounds for 4 weeks. 3. May shower. 4. Can use abdominal binder as needed for comfort.[facility] Work Phone: Progress note Author Yogesh Becker [facility] October 02, 2023 9:46am Note Date/Time October 02, 2023 9 :46am [facility] [address] [place], [place] [id number] Progress Note Signed Patient: Koko Meier MR#: [id number] : 1960 Acct:[id number] Age/Sex: 62 / M Adm Date: 3 Loc: [place] Room: Type: [facility] Attending Dr: Yogesh Becker MD Copies to: ~ Date of Service: 10/02/2023 Progress Narrative Note PROGRESS NOTE Progress Note: Patient's tox screen today is positive for cocaine. Surgery will be canceled. Patient is told to call the office this afternoon to reschedule the surgery. Documented By: Yogesh Becker MD 10/02/2345 Signed By: <Electronically signed by MD Yogesh Becker> 10/02/2346 [facility] Work Phone: Summary Purpose [...] hernia Chief Complaint Ref By Dr. Savanna Bailey ledraitis For Lumbar Hernia Hernia Follow Up Lumbar Pain inguinal hernia inguinal hernia e78.2 e11.9 z79.89;Z12.5;R25.1;R41.3 Chief Complaint Ref By Dr. Savanna Bailey ledraitis For Lumbar Hernia Hernia Follow Up Lumbar [...] Referred To Contact Radiology Diagnoses Cervical myelopathy ([facility]) Procedures MR cervical spine [place] [address] [address] Department [place] [address] Referral ID Status Reason Start Date Expiration Date Visits Requested Visits Authorized Pending Review Perform Procedure 11/11/2023 11/10/2024 1 1 Specialty Diagnoses / Procedures Referred By Bala phillips Referred To Contact Radiology Diagnoses Sagittal plane imbalance Procedures X-ray scoliosis 2 View (NON EOS) Maryann Rub[place] [id number] Department [place] [address] Referral ID Status Reason Start Date Expiration Date Visits Requested Visits Authorized Authorized Perform Procedure 11/11/2023 11/10/2024 1 1 Reason surgical consult Diagnosis 1 Lumbar myelopathy (G 95.9) Referral Organization [facility] Referring Provider First Name Karime Referring Provider Last Name Nguyen Referring Provider Specialty Nurse Pract itioner Referred Organization [facility] Referred Provider MARYANN RUBALCAVA [place] Address [address] [place], [place],[address] Referred Provider Specialty Neurosurgery Referral Priority Routine General Notes Juana Scanlon 03:14:14 PM >received today, holding referral until office note is locked Juana Scanlon 10/16/2023 08:38:30 AM >note not locked yet Reason evaluate and treat Diagnosis 1 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) Referral Organization [facility] Referring Provider First Name Karime Referring Provider Last Name Nguyen Referring Provider Specialty Nurse Pract itioner Referred Organization [facility] Referred Address [address],[place], [place],[address] Referred Provider Specialty Physical The rapist Referral Priority Routine Additional Source Comments (unrecognized sect ion and content) No Status Records FoundNo Status Records FoundNo Status Records FoundNo Status Records FoundNo Status Records FoundNo Status Records FoundNo Status Records FoundNo Status Records FoundNo Status Records Found INFORMATION SOURCE (unrecogn ized section and content) DATE CREATED AUTHOR 04/27/2021 John Lopes [facility] DATE CREATED AUTHOR AUTHOR'S ORGANIZ ATION 04/15/2023 [facility] DATE CREATED AUTHOR AUTHOR'S ORGANIZ ATION 04/14/2024 [facility] DATE CREATED AUTHOR AUTHOR'S ORGANIZ ATION 05/19/2024 [facility] DATE CREATED AUTHOR AUTHOR'S ORGANIZ ATION 07/11/2024 [facility] DATE CREATED AUTHOR AUTHOR'S ORGANIZ ATION 07/15/2024 [facility] DATE CREATED AUTHOR AUTHOR'S ORGANIZ ATION 07/30/2024 [facility] DATE CREATED AUTHOR AUTHOR'S ORGANIZ ATION 07/31/2024 [facility] DATE CREATED AUTHOR AUTHOR'S ORGANIZ ATION 08/03/2024 [facility] REASON FOR VISIT (unrecogniz ed section and content) Reason Comments Mouth lesion on left side Specialty Diagnoses / Procedures Referred By Contact Referred To Contact Ent - Otolaryngology / ENT-OTOLARYNGOLOGY Diagnoses Mouth Lesion on Left side of jaw Procedures NEW HNI PATIENT Josh Melvin Ray, DO [address] [place] [address] Donny Peralta, VOLUNTEER SERVICES MANAGER.[facility] [address] [place] [address] Referral ID Status Reason Start Date Expiration Date V isits Requested Visits Authorized [id number] Authorized 03/25/2023 10/26/2023 99 99 Reason Comments Neck Pain Back Pain Reason Comments Back Pain Specialty Diagnoses / Procedures Referred By Contac t Referred To Contact Radiology Diagnoses Cervical myelopathy (Multi) Procedures XR cervical spine complete 4-[place] [address] [address] Department [place] [address] Referral ID Status Reason Start Date Expiration Date Visits Requested Visits Authorized [id number] Authorized Perform Procedure 04/01/2024 04/01/2025 1 1 [...] Status: Inactive Member Role Status Dates Josh Velascoting , DO Primary Care Provider Active Yunier Ariza MD Attending Provider Active Team Status: Inactive Member Role Status Dates Joshana Velascoting , DO Primary Care Provider Active Mariel Mcgraw MD Attending Provider Active Team Status: Inactive Member Role Status Dates Josh Velascoting , DO Primary Care Provider Active Errol Humphrey MD Attending Provider Active Team Status: Inactive Member Role Status Dates Josh Melvin , DO Primary Care Provider Active Nery Casanova [facility] Emergency Provider Active Team Status: Inactive [...] March 31, 2024 End: March 31, 2024 Motorcycle Sales Associate Relationship Specialty Start Date End Date Josh Melvin DO [address] [place] [address] PCP - General Family Medicine 04/01/24 Motorcycle Sales Associate Relationship Specialty Start Date End Date Josh Melvin DO [address] [place] [address] PCP - General Family Medicine 04/01/24 Team Status: Inactive Member Role Status Dates Josh Melvin DO Primary Care Provider Active Start: July 06, 2024 End: July 06, 2024 Umu Evans APRN ACN- Attending Provider Active Start: July 06, 2024 [...] or prosecute any alcohol or drug abuse patient.[facility] FOR RECORDS PERTAINING TO PATIENTS WHO [...] BE BASED ON THE PRIMARY CLINICAL RECORDS. [facility]. provides no warranty or guarantee of the accuracy or completeness of information in this document.
--- NOTE | 2024-08-05 10:42 | P.CN_ITS ---
Consult Note: HPI Data of Consult Patient: known to practice within the last 3 years Requesting Physician: Rosemary Kwon NP Primary Care Provider: JOSH MELVIN Consult Narrative Reason for consult: f/u Narrative: Koko Hernandez a pleasant 63 year old male presents for evaluation of chronic pain. Today pain in right low back 6/10 sharp, increasing to 9/10 with standing twisting bending lifting activity, improved with medications, sitting, heat. Patient continues to find mild benefit from SCS. Patient denies loss of bowel/bladder. Patient finds mild benefit from cymbalta 60mg daily, gabapentin 600mg 1.5 pills TID, flexeril 10mg TID PRN. Patient has an upcoming lumbar surgery end of august, extensive back surgery and removal of spinal cord stimulator. recent caudal JARED providing >50% improvement ongoing in lumbar stenosis with NC symptoms. cc:: CC: Rosemary Kwon NP Review of Systems ROS Status of ROS 10 or more systems reviewed and unremark able except as noted in history and below Musculoskeletal Reports: back pain and joint pain; Denies: extremity pain PFSH PFSH Medical History Fusion of spine, cervical region ?M43.22 - Fusion of spine, cervical region (ICD-10) Lumbar post-laminectomy syndrome ?M96.1 - Postlaminectomy syndrome, not elsewhere classified (ICD-10) Anxiety ?F41.9 - Anxiety disorder, unspecified (ICD-10) HTN (hypertension) ?I10 - Essential (primary) hypertension (ICD-10) High cholesterol ?E78.00 - Pure hypercholesterolemia, unspecified (ICD-10) Diabetes ?E11.9 - Type 2 diabetes mellitus without complications (ICD-10) Diverticulosis ?K57.90 - Diverticulosis of intestine, part unspecified, without perforation or abscess without bleeding (ICD-10) Surgical History History of shoulder surgery ?Z98.890 - Other specified postprocedural states (ICD-10) History of colon resection ?Z90.49 - Acquired absence of other specified parts of digestive tract (ICD- 10) History of lumbar surgery ?Z98.890 - Other specified postprocedural states (ICD-10) Social History Gender Identity: male Meds Home Medications and Allergies Home Medications ?Medication ?Instructions ?Recorded ?Confirmed ?Type atorvastatin 40 mg tablet 40 mg PO DAILY 08/14/23 07/26/24 History buspirone 30 mg tablet 30 mg PO TID 08/14/23 07/26/24 History celecoxib 200 mg capsule 200 mg PO DAILY 08/14/23 07/26/24 History cyclobenzaprine 10 mg tablet 10 mg PO TID 08/14/23 07/26/24 History duloxetine 60 mg capsule,delayed 60 mg PO BID 08/14/23 07/26/24 History release empagliflozin 10 mg tablet 10 mg PO DAILY 08/14/23 07/26/24 History (Jardiance) insulin aspart U-100 100 unit/mL 1 sliding scale dose subcut 08/14/23 07/26/24 History (3 mL) subcutaneous pen (Novolog USEASDIRECTD FlexPen U-100 Insulin aspart) insulin degludec 200 unit/mL (3 40 unit subcut DAILY 08/14/23 07/26/24 History mL) subcutaneous pen (Tresiba FlexTouch U-200 insulin) lisinopril 20 1 tab PO DAILY 08/14/23 07/26/24 History mg-hydrochlorothiazide 12.5 mg tablet metformin 1,000 mg tablet 1,000 mg PO DAILY 08/14/23 07/26/24 History omeprazole 40 mg capsule,delayed 40 mg PO DAILY 08/14/23 07/26/24 History release gabapentin 600 mg tablet 900 mg PO TID 02/06/24 07/26/24 History famotidine 40 mg tablet (Pepcid) 40 mg PO DAILY 07/20/24 07/26/24 History ropinirole 0.5 mg tablet 0.5 mg PO QPM 07/20/24 07/26/24 History Allergies Allergy/AdvReac Type Severity Reaction Status Date / Time No Known Drug Allergies Allergy Verified 04/12/24 07:21 Exam Constitutional Documenting provider has reviewed patient's vital signs: yes Common normals: no apparent distress, oriented x3, healthy appearing, alert and well nourished General appearance: cooperative HENMT Common normals: normocephalic, hearing grossly normal bilaterally and moist oral mucous membranes Head and scalp: normocephalic Eye Common normals: PERRL Pupil: PERRL Neck & C-Spine Common normals: full ROM General: normal visual inspection Chest Common normals: inspection of chest normal Respiratory Common normals: normal respiratory effort, no retractions and no use of accessory muscles Back & Pelvis Lumbar spine/lower back: ROM limited, pain with ROM and straight leg raise negative bilaterally Sacroiliac joints: SI joint(s) abnormal Other: right positive nessa(patricks), gaenslens, thigh thrust, compression test sensation altered in BLE strength 5/5 in BLE Extremity Common normals: normal to inspection and full ROM Neuro Common normals: oriented x3, CN's II-XII intact bilaterally, moves all extremities, no focal motor deficits, no sensory deficits noted and deep tendon reflexes 2+ bilaterally Sensorium/orientation: alert Motor exam: strength 5/5 throughout and no movement abnormalities noted Psych Common normals: mental status grossly normal, thought process normal, cooperative, affect normal, speech normal and activity/motor behavior normal Speech: normal speech Thought process: normal thought process Results Additional Findings Additional findings: If on a controlled substance or opioids, I have checked an [place]AR[place] report on this patient and there are no aberrancies noted in the prescribing history.??If on a controlled substance or opioid a drug screen was completed and reviewed within the last year, and if there has not been a drug screen completed we ordered one today to monitor higher risk, state monitored pain medication use. As part of providing excellent, safe, comprehensive care, the following was completed at our patient's visit: 1. A medication reconciliation and review to ensure accurate knowledge of current/active medications, including asking our patients to inform us about any [id number] medications or herbal remedies/nutritional supplements/alternative remedies. 2. A review to specifically ensure our patients have had annual screening for screening for depression, screening for tobacco use, and screening for unhealthy alcohol use. For concerning screenings had a discussion with the patient, provided patient education, and recommended follow-up with primary care provider when appropriate. If patient noted with a risk of falling, they received education on strength, gait, and balance training to prevent future risk of falling. Assessment and Plan Assessment and Plan (1) Lumbar stenosis with neurogenic claudication: (2) Lumbar postlaminectomy syndrome: (3) Lumbar radiculopathy: (4) Sacroiliitis: (5) Cervical spondylosis: (6) Cervical post-laminectomy syndrome: (7) Cervicalgia: (8) Thoracic back pain: Plan proceed with right SIJ injection under fluoroscopy if okay with NS team, we will request clearance prior to injection. risks vs benefits reviewed continue current medications continue f/u with NS f/u 1-2 weeks after injection
== END 2024-08-05 10:02 | disposition home or self-care (01) ==
LOC: PM 10:01
PROVIDERS: PCP Family Medicine; Visit Provider Nurse Practitioner
DX: M48.062 Spinal stenosis, lumbar region with neurogenic claudication (principal); M96.1 Postlaminectomy syndrome, not elsewhere classified; M54.16 Radiculopathy, lumbar region; M46.1 Sacroiliitis, not elsewhere classified; M47.812 Spondylosis without myelopathy or radiculopathy, cervical region; M54.12 Radiculopathy, cervical region; M54.6 Pain in thoracic spine
CPT/HCPCS: G0463

== ENCOUNTER 2024-12-20 08:19 | Day surgery (SDC) | payer MEDICARE, SELFPAY ==
[2024-12-20 08:29] VITALS: BP 174/83; PULSE 102; TEMP 36.5; O2SAT 95
[2024-12-20 08:37] LABS: Glucometer 232 mg/dL (74-106)
[2024-12-20 09:26] VITALS: PULSE 91; O2SAT 92
[2024-12-20 09:27] VITALS: BP 177/81
[2024-12-20] MEDS: BUPIVACAINE HCL 0.25% PF 25 MG/10 ML VIAL 2 ML INJ (09:27)
[2024-12-20] MEDS: IOHEXOL 240 MG/ML - 10 ML VIAL 24 MG INJ (09:27)
[2024-12-20 09:28] VITALS: BP 168/62; PULSE 91; O2SAT 94
[2024-12-20] MEDS: METHYLPREDNISOLONE ACETATE 40 MG/ML VIAL INJ (09:28)
[2024-12-20] MEDS: LIDOCAINE HCL 2% 400 MG/20 ML MDV 3 ML INJ (09:28)
--- NOTE | 2024-12-20 09:29 | W.PM.PROCNOT ---
Date of procedure: 12/20/24 Pre-op diagnosis: Pain due to right sacroiliitis Post-op diagnosis: same as pre-op Procedure: Procedure: Right sacroiliac joint injection Medications: Bupivacaine 0.25% 3cc, depomedrol 40mg After informed consent was obtained, the patient was brought to the medical procedure unit and placed in the prone position, when a timeout was completed verifying correct patient, procedure, site, positioning, implant, and/or special equipment.? The skin overlying the area was prepped and draped in standard sterile fashion using alcohol.? A 25-gauge needle was inserted towards the right sacroiliac joint under direct fluoroscopic imaging.? Needle tip was advanced until the joint was encountered.? We instilled a total of 2 mL of solution.? Postoperatively needles were removed.? The patient tolerated the procedure well without complication.? The patient reported reduction in pain symptoms postoperatively. Anesthesia: Local Surgeon: Savanna Mcclain Pathology: none sent Condition: stable Disposition: no change
== END 2024-12-20 09:34 | disposition home or self-care (01) ==
PROVIDERS: PCP Family Medicine; Visit Provider Anesthesiology
DX: M46.1 Sacroiliitis, not elsewhere classified (principal); E11.8 Type 2 diabetes mellitus with unspecified complications; Z79.85 Long-term (current) use of injectable non-insulin antidiabetic drugs; Z79.84 Long term (current) use of oral hypoglycemic drugs
CPT/HCPCS: 27096; 36415; 82948; J0665; J1010; Q9966

== ENCOUNTER 2024-12-29 08:12 | Outpatient (OUT) | payer MEDICARE, SELFPAY ==
--- NOTE | 2024-12-29 08:43 | P.CN_ITS ---
Consult Note: HPI Data of Consult Patient: known to practice within the last 3 years Requesting Physician: Rosemary Kwon NP Primary Care Provider: JOSH MELVIN Consult Narrative Reason for consult: f/u Narrative: Koko Hernandez a pleasant 64 year old male presents for evaluation of chronic pain. Since last vist pt had extensive thoracic lumbar fusion of unknown levels with [facility], they did remove his scs. Patient reporting his low back pain and bilateral leg pain is well controlled at this time. recently underwent right SIJ injection with >50% improvement ongoing. Pain today in low back 02/03. pain in right knee /10 increasing with standing, walking, weight bearing. mild improvement with rest, heat, ice. has failed tylenol, ibuprofen, continues to utilize gabapentin 1200mg TID with benefit without side effects. cc:: CC: Rosemary Kwon NP Review of Systems ROS Status of ROS 10 or more systems reviewed and unremark able except as noted in history and below Musculoskeletal Reports: back pain and joint pain; Denies: extremity pain PFSH PFSH Medical History Fusion of spine, cervical region ?M43.22 - Fusion of spine, cervical region (ICD-10) Lumbar post-laminectomy syndrome ?M96.1 - Postlaminectomy syndrome, not elsewhere classified (ICD-10) Anxiety ?F41.9 - Anxiety disorder, unspecified (ICD-10) HTN (hypertension) ?I10 - Essential (primary) hypertension (ICD-10) High cholesterol ?E78.00 - Pure hypercholesterolemia, unspecified (ICD-10) Diabetes ?E11.9 - Type 2 diabetes mellitus without complications (ICD-10) Diverticulosis ?K57.90 - Diverticulosis of intestine, part unspecified, without perforation or abscess without bleeding (ICD-10) Surgical History History of shoulder surgery ?Z98.890 - Other specified postprocedural states (ICD-10) History of colon resection ?Z90.49 - Acquired absence of other specified parts of digestive tract (ICD- 10) History of lumbar surgery ?Z98.890 - Other specified postprocedural states (ICD-10) Social History Gender Identity: male Meds Home Medications and Allergies Home Medications ?Medication ?Instructions ?Recorded ?Confirmed ?Type atorvastatin 40 mg tablet 40 mg PO DAILY 08/14/23 12/20/24 History buspirone 30 mg tablet 30 mg PO TID 08/14/23 12/20/24 History celecoxib 200 mg capsule 200 mg PO DAILY 08/14/23 12/20/24 History cyclobenzaprine 10 mg tablet 10 mg PO TID 08/14/23 12/20/24 History duloxetine 60 mg capsule,delayed 60 mg PO BID 08/14/23 12/20/24 History release empagliflozin 10 mg tablet 10 mg PO DAILY 08/14/23 12/20/24 History (Jardiance) insulin aspart U-100 100 unit/mL 1 sliding scale dose subcut 08/14/23 12/20/24 History (3 mL) subcutaneous pen (Novolog USEASDIRECTD FlexPen U-100 Insulin aspart) insulin degludec 200 unit/mL (3 40 unit subcut DAILY 08/14/23 12/20/24 History mL) subcutaneous pen (Tresiba FlexTouch U-200 insulin) lisinopril 20 1 tab PO DAILY 08/14/23 12/20/24 History mg-hydrochlorothiazide 12.5 mg tablet metformin 1,000 mg tablet 1,000 mg PO DAILY 08/14/23 12/20/24 History omeprazole 40 mg capsule,delayed 40 mg PO DAILY 08/14/23 12/20/24 History release gabapentin 600 mg tablet 900 mg PO TID 02/06/24 12/20/24 History famotidine 40 mg tablet (Pepcid) 40 mg PO DAILY 07/20/24 12/20/24 History ropinirole 0.5 mg tablet 0.5 mg PO QPM 07/20/24 12/20/24 History Allergies Allergy/AdvReac Type Severity Reaction Status Date / Time No Known Drug Allergies Allergy Verified 12/20/24 08:37 Exam Constitutional Documenting provider has reviewed patient's vital signs: yes Common normals: no apparent distress, oriented x3, healthy appearing, alert and well nourished General appearance: cooperative HENWA Common normals: normocephalic, hearing grossly normal bilaterally and moist oral mucous membranes Head and scalp: normocephalic Eye Common normals: PERRL Pupil: PERRL Neck & C-Spine Common normals: full ROM General: normal visual inspection Chest Common normals: inspection of chest normal Respiratory Common normals: normal respiratory effort, no retractions and no use of accessory muscles Back & Pelvis Lumbar spine/lower back: ROM limited, pain with ROM and straight leg raise negative bilaterally Sacroiliac joints: SI joints normal Other: right negative nessa(patricks), gaenslens, thigh thrust, compression test sensation altered in BLE strength 5/5 in BLE Extremity Common normals: normal to inspection and full ROM Right lower extremity: knee joint Other: enlarged proximal diameter, mild edema to right knee. no instability noted. increased pain with medial and lateral stress testing. Neuro Common normals: oriented x3, CN's II-XII intact bilaterally, moves all extremities, no focal motor deficits, no sensory deficits noted and deep tendon reflexes 2+ bilaterally Sensorium/orientation: alert Motor exam: strength 5/5 throughout and no movement abnormalities noted Psych Common normals: mental status grossly normal, thought process normal, cooperative, affect normal, speech normal and activity/motor behavior normal Speech: normal speech Thought process: normal thought process Results Additional Findings Additional findings: If on a controlled substance or opioids, I have checked an OARRS report on this patient and there are no aberrancies noted in the prescribing history.??If on a controlled substance or opioid a drug screen was completed and reviewed within the last year, and if there has not been a drug screen completed we ordered one today to monitor higher risk, state monitored pain medication use. As part of providing excellent, safe, comprehensive care, the following was completed at our patient's visit: 1. A medication reconciliation and review to ensure accurate knowledge of current/active medications, including asking our patients to inform us about any [id number] medications or herbal remedies/nutritional supplements/alternative remedies. 2. A review to specifically ensure our patients have had annual screening for screening for depression, screening for tobacco use, and screening for unhealthy alcohol use. For concerning screenings had a discussion with the patient, provi ded patient education, and recommended follow-up with primary care provider when appropriate. If patient noted with a risk of falling, they received education on strength, gait, and balance training to prevent future risk of falling. Assessment and Plan Assessment and Plan (1) Right knee pain: (2) Osteoarthritis of right knee: (3) Sacroiliitis: Assessment and Plan: >50% improvement ongoing (4) Lumbar stenosis with neurogenic claudication: (5) Lumbar postlaminectomy syndrome: (6) Lumbar radiculopathy: (7) Cervical spondylosis: (8) Cervical post-laminectomy syndrome: (9) Cervicalgia: (10) Thoracic back pain: Plan update right knee xray, proceed with right knee injection in office for pain secondary to OA continue current medications, take over gabapentin 1200mg TID. risks vs benefits reviewed update UDS today continue HEP as tolerated request records from NS, unknown fusion levels. not interested in replacing scs system at this time f/u after injection
== END 2024-12-29 08:13 | disposition home or self-care (01) ==
LOC: PM 08:12
PROVIDERS: PCP Family Medicine; Visit Provider Nurse Practitioner
DX: M17.11 Unilateral primary osteoarthritis, right knee (principal); M25.561 Pain in right knee; M48.062 Spinal stenosis, lumbar region with neurogenic claudication; M96.1 Postlaminectomy syndrome, not elsewhere classified; M54.16 Radiculopathy, lumbar region; M54.12 Radiculopathy, cervical region; M54.2 Cervicalgia; M54.6 Pain in thoracic spine
CPT/HCPCS: 73564; G0463

== ENCOUNTER 2024-12-29 09:10 | Outpatient (OUT) | payer MEDICARE, SELFPAY ==
--- NOTE | 2024-12-29 09:21 | XR_ITS ---
The [address] [address] Patient Name: CHARLI MEIER MRN: [id number] date: 1960 Sex: M Assigned Patient Location: RAD Current Patient Location: [facility] Accession/Order Number: [id number] Exam Date: 12/29/2024 23:04 Report Date: 12/29/2024 23:05 At the request of: SREE OZUNA NP Procedure: XR knee RT 4V RIGHT KNEE - 4 views CLINICAL HISTORY: Acute right knee pain for 6 weeks. COMPARISON: None FINDINGS: Minimal degenerative changes without acute bony process. No significant joint effusion. XR/XR knee RT 4V IMPRESSION: MINIMAL DEGENERATIVE CHANGE OF THE RIGHT KNEE WITHOUT ACUTE BONY PROCESS. Impression dictated by: Scooby Borrego Jr., D.O.12/29/2024 11:05 PM Dictation Location: [place] [address] Electronically authenticated by: [id number] Y Date: 12/29/2024 23:05
== END 2024-12-29 09:11 | disposition home or self-care (01) ==
LOC: RAD 09:11
PROVIDERS: PCP Family Medicine; Visit Provider Nurse Practitioner
DX: M17.11 Unilateral primary osteoarthritis, right knee (principal)
CPT/HCPCS: 73564

== ENCOUNTER 2025-01-17 14:33 | Outpatient (OUT) | payer MEDICARE, SELFPAY ==
--- NOTE | 2025-01-17 15:56 | P.CN_ITS ---
Consult Note: HPI Data of Consult Patient: known to practice within the last 3 years Consult date: 01/17/25 Requesting Physician: Savanna Mcclain MD Primary Care Provider: JOSH MELVIN Consult Narrative Reason for consult: right knee pain Narrative: 64yof who presents for right knee injection. continues to have right knee pain. cc:: CC: Savanna Mcclain MD Review of Systems ROS Status of ROS 10 or more systems reviewed and unremark able except as noted in history and below PFSH PFSH Medical History Fusion of spine, cervical region ?M43.22 - Fusion of spine, cervical region (ICD-10) Lumbar post-laminectomy syndrome ?M96.1 - Postlaminectomy syndrome, not elsewhere classified (ICD-10) Anxiety ?F41.9 - Anxiety disorder, unspecified (ICD-10) HTN (hypertension) ?I10 - Essential (primary) hypertension (ICD-10) High cholesterol ?E78.00 - Pure hypercholesterolemia, unspecified (ICD-10) Diabetes ?E11.9 - Type 2 diabetes mellitus without complications (ICD-10) Diverticulosis ?K57.90 - Diverticulosis of intestine, part unspecified, without perforation or abscess without bleeding (ICD-10) Surgical History History of shoulder surgery ?Z98.890 - Other specified postprocedural states (ICD-10) History of colon resection ?Z90.49 - Acquired absence of other specified parts of digestive tract (ICD- 10) History of lumbar surgery ?Z98.890 - Other specified postprocedural states (ICD-10) Social History Gender Identity: male Meds Home Medications and Allergies Home Medications ?Medication ?Instructions ?Recorded ?Confirmed ?Type atorvastatin 40 mg tablet 40 mg PO DAILY 08/14/23 12/20/24 History buspirone 30 mg tablet 30 mg PO TID 08/14/23 12/20/24 History celecoxib 200 mg capsule 200 mg PO DAILY 08/14/23 12/20/24 History cyclobenzaprine 10 mg tablet 10 mg PO TID 08/14/23 12/20/24 History duloxetine 60 mg capsule,delayed 60 mg PO BID 08/14/23 12/20/24 History release empagliflozin 10 mg tablet 10 mg PO DAILY 08/14/23 12/20/24 History (Jardiance) insulin aspart U-100 100 unit/mL 1 sliding scale dose subcut 08/14/23 12/20/24 History (3 mL) subcutaneous pen (Novolog USEASDIRECTD FlexPen U-100 Insulin aspart) insulin degludec 200 unit/mL (3 40 unit subcut DAILY 08/14/23 12/20/24 History mL) subcutaneous pen (Tresiba FlexTouch U-200 insulin) lisinopril 20 1 tab PO DAILY 08/14/23 12/20/24 History mg-hydrochlorothiazide 12.5 mg tablet metformin 1,000 mg tablet 1,000 mg PO DAILY 08/14/23 12/20/24 History omeprazole 40 mg capsule,delayed 40 mg PO DAILY 08/14/23 12/20/24 History release gabapentin 600 mg tablet 900 mg PO TID 02/06/24 12/20/24 History famotidine 40 mg tablet (Pepcid) 40 mg PO DAILY 07/20/24 12/20/24 History ropinirole 0.5 mg tablet 0.5 mg PO QPM 07/20/24 12/20/24 History Allergies Allergy/AdvReac Type Severity Reaction Status Date / Time No Known Drug Allergies Allergy Verified 12/20/24 08:37 Exam Narrative Exam Narrative: Psych-alert and oriented x 3.? Attentive and appropriate, constitutionally normal, displays normal mood and affect per situation.? There are no obvious deficits in memory, reasoning, or intellect. Extremities-lower extremities are warm with minimal edema and palpable pulses. Knee-examination of the right knee reveals tenderness to palpation over the superior, inferior, lateral, and medial aspect of the knee.? Some swelling is noted without erythema. Pain is elicited with flexion and extension of the knee both actively and passively.? Some grinding is noted with these motions.? There is no notable ligamental laxity or instability.? Coordination remains intact.? Gait remains antalgic. Assessment and Plan Assessment and Plan (1) Osteoarthritis of right knee: Qualifiers: Osteoarthritis type: primary Qualified Code(s): M17.11 - Unilateral primary osteoarthritis, right knee Plan 64yom who presents for in office injection. continues to have right knee pain, will proceed with right knee injection. follow up in 6-8 weeks. procedure: right knee injection medications: bupivacaine 0.25% 4cc, depomedrol 40mg I explained the details of the procedure to the patient including the risks, benefits and alternatives. We had an informed discussion and the patient verbalized understanding and signed the consent form. All questions were answered appropriately.? A time out was performed.? After obtaining a comfortable seated position, the right knee was prepped with alcohol x3. A syringe containing the above medication was attached to a 25 gauge, 1.5 inch needle under strict aseptic technique. The lateral tibial plateau was palpated.? The needle was then advanced through the subcutaneous tissue in a medial and superior direction towards the joint space.? The contents of the syringe were gently injected without any resistance. The needle was removed and pressure was applied to the injection site to decrease the incidence of ecchymosis and hematoma formation.? A sterile bandage was applied.
== END 2025-01-17 14:34 | disposition home or self-care (01) ==
LOC: PM 14:33
PROVIDERS: PCP Family Medicine; Visit Provider Anesthesiology
DX: M17.11 Unilateral primary osteoarthritis, right knee (principal)
CPT/HCPCS: 20610; J0665; J1010

== ENCOUNTER 2025-04-04 14:05 | Outpatient (OUT) | payer MEDICARE, SELFPAY ==
--- NOTE | 2025-04-04 15:37 | PM.CN ---
Consult Note: HPI Data of Consult Patient: known to practice within the last 3 years Consult date: 04/04/25 Requesting Physician: Savanna Mcclain MD Primary Care Provider: JOSH MELVIN Consult Narrative Reason for consult: right low back and leg pain Narrative: 64yom who presents for assessment. notes worsening pain primarily radiating down right leg. similar to pain he has had prior to lumbar tfesis in the past. imaging shows multilevel stenosis in lower lumbar spine. has completed >6 weeks of provider directed home exercise program, without much benefit. uses gabapentin. denies adverse med side effects. cc:: CC: Savanna Mcclain MD Review of Systems ROS Status of ROS 10 or more systems reviewed and unremarkable except as noted in history and below [facility] Medical History Fusion of spine, cervical region ?M43.22 - Fusion of spine, cervical region (ICD-10) Lumbar post-laminectomy syndrome ?M96.1 - Postlaminectomy syndrome, not elsewhere classified (ICD-10) Anxiety ?F41.9 - Anxiety disorder, unspecified (ICD-10) HTN (hypertension) ?I10 - Essential (primary) hypertension (ICD-10) High cholesterol ?E78.00 - Pure hypercholesterolemia, unspecified (ICD-10) Diabetes ?E11.9 - Type 2 diabetes mellitus without complications (ICD-10) Diverticulosis ?K57.90 - Diverticulosis of intestine, part unspecified, without perforation or abscess without bleeding (ICD-10) Surgical History History of shoulder surgery ?Z98.890 - Other specified postprocedural states (ICD-10) History of colon resection ?Z90.49 - Acquired absence of other specified parts of digestive tract (ICD-10) History of lumbar surgery ?Z98.890 - Other specified postprocedural states (ICD-10) Social History Gender Identity: male Meds Home Medications and Allergies Home Medications ?Medication ?Instructions ?Recorded ?Confirmed ?Type atorvastatin 40 mg tablet 40 mg PO DAILY 08/14/23 12/20/24 History buspirone 30 mg tablet 30 mg PO TID 08/14/23 12/20/24 History celecoxib 200 mg capsule 200 mg PO DAILY 08/14/23 12/20/24 History cyclobenzaprine 10 mg tablet 10 mg PO TID 08/14/23 12/20/24 History duloxetine 60 mg capsule,delayed 60 mg PO BID 08/14/23 12/20/24 History release empagliflozin 10 mg tablet 10 mg PO DAILY 08/14/23 12/20/24 History (Jardiance) insulin aspart U-100 100 unit/mL 1 sliding scale dose subcut 08/14/23 12/20/24 History (3 mL) subcutaneous pen (Novolog USEASDIRECTD FlexPen U-100 Insulin aspart) insulin degludec 200 unit/mL (3 40 unit subcut DAILY 08/14/23 12/20/24 History mL) subcutaneous pen (Tresiba FlexTouch U-200 insulin) lisinopril 20 1 tab PO DAILY 08/14/23 12/20/24 History mg-hydrochlorothiazide 12.5 mg tablet metformin 1,000 mg tablet 1,000 mg PO DAILY 08/14/23 12/20/24 History omeprazole 40 mg capsule,delayed 40 mg PO DAILY 08/14/23 12/20/24 History release gabapentin 600 mg tablet 900 mg PO TID 02/06/24 12/20/24 History famotidine 40 mg tablet (Pepcid) 40 mg PO DAILY 07/20/24 12/20/24 History ropinirole 0.5 mg tablet 0.5 mg PO QPM 07/20/24 12/20/24 History Allergies Allergy/AdvReac Type Severity Reaction Status Date / Time No Known Drug Allergies Allergy Verified 12/20/24 08:37 Exam Narrative Exam Narrative: Psych-alert and oriented x 3. Attentive and appropriate, constitutionally normal, displays normal mood and affect per situation. There are no obvious deficits in memory, reasoning, or intellect.? Skin-no obvious rashes, bruising, erythema noted to the patient's area of pain.? Extremities- extremities are warm with minimal edema and palpable pulses. Lumbar-tenderness to palpation noted in the lumbar spine and paraspinal musculature. Pain is not elicited with flexion, extension, and lateral rotation of the lumbar spine. Range of motion is not diminished with these motions. Facet loading maneuvers are negative.? Strength-noted to be unremarkable with the exception of decreased strength rated at 4 out of 5 in right quadriceps femoris. Sensory-no notable sensory deficits in the bilateral lower extremities to touch or pinprick in all dermatomal distributions with the exception to decreased sensation to the right L4, 5 dermatomal distribution Coordination remains intact.? Gait remains non-antalgic. Assessment and Plan Assessment and Plan (1) Lumbar postlaminectomy syndrome: (2) Lumbar radiculopathy: (3) Lumbar stenosis with neurogenic claudication: Plan 64yom who presents for assessment. failed conservative measures, as noted. imaging reviewed, as noted. given symptoms and imaging, prudent to attempt right l4-5, l5-s1 tfesi under fluoroscopic guidance. he is in agreement. meds reviewed, no changes. follow up after procedure.
== END 2025-04-04 14:06 | disposition home or self-care (01) ==
LOC: PM 14:07
PROVIDERS: PCP Family Medicine; Visit Provider Anesthesiology
DX: M96.1 Postlaminectomy syndrome, not elsewhere classified (principal); M54.16 Radiculopathy, lumbar region; M48.062 Spinal stenosis, lumbar region with neurogenic claudication
CPT/HCPCS: G0463

== ENCOUNTER 2025-04-18 08:46 | Day surgery (SDC) | payer MEDICARE, SELFPAY ==
--- OUTSIDE RECORDS SUMMARY | 2025-04-04 05:15 | XMS_ITS ---
Author Organization [facility] Address [address] [place] [address] Care Team Providers Care Dynamometer Tester Name Role Phone Ning Nolasco Primary Care Provider Allergies No Known Allergies REASON FOR VISIT Pt is here in office for a 1 month F/U appt. Medications Medication SIG (Take, Route, Frequency, Duration) Notes Start Date End Date Status busPIRone HCl 30 MG 1 tablet Orally Twic e a day Active Lisinopril-hydroCHLOROthiaz radha 20-12.5 MG TAKE 1 TABLET BY MOUTH ONCE DAILY FOR BLOOD PRESSURE *NEW DOSE* Oral for 25 Days Active rOPINIRole HCl 3 MG TAKE 1 TABLET BY TWYLA TH EVERY NIGHT AT BEDTIME for restless legs Oral for 30 Days Active Ondansetron 4 MG DISSOLVE 1 (ONE) TAB LET ON THE TONGUE EVERY 4 HOURS NEEDED FOR NAUSEA Oral for 2 Days Active metFORMIN HCl 1000 MG TAKE 1 TABLET (100 0MG) BY MOUTH IN THE MORNING AND 1 TABLET (1000MG) BEFORE BEDTIME Oral for 30 Days Active hydrOXYzine Pamoate 50 MG 1 capsule at b edtime as needed Orally Once a day 02/07/2025 Active DULoxetine HCl 60 MG 1 capsule Orally tw ice daily Active Lisinopril Active Gabapentin 600 MG 1 tablet Orally Once a day Active Omeprazole 40 MG TAKE 1 CAPSULE BY MO UTH ONCE DAILY FOR ACID REFLUX Oral for 30 Days Active Celecoxib 200 MG 1 capsule with food Orally Once a day Active Atorvastatin Calcium 40 MG 1 tablet Oral ly Once a day Active Cyclobenzaprine HCl 10 MG TAKE 1 TABLET BY MOUTH EVERY 6 HOURS NEEDED FOR MUSCLE SPASMS Oral for 15 Days Active Tresiba FlexTouch 200 UNIT/ML INJECT 60 SUBCUTANEOUSLY IN THE MORNING Subcutaneous for 90 Days Active hydrOXYzine Pamoate 25 MG 1 capsule Orally every 6 hours As needed 12/07/2024 Active Lisinopril-hydroCHLOROthiaz radah 20-12.5 MG TAKE 1 TABLET BY MOUTH DAILY Oral for 30 Days Active Mirtazapine 30 MG 1 tablet at bedtime Orally Once a day 03/07/2025 Active Social History DAST-10 (2020 Edition) Question Answer Notes 1. Have you used drugs other than those required for medical reasons? No 2. Do you abuse more than one drug at a time? No 3. Are you always able to stop using drugs when you want to? No 4. Have you had blackouts or flashbacks as a result of drug use? No 5. Do you ever feel bad or guilty about your tristian g use? No 6. Does your spouse (or pare nts) ever complain about your involvement with drugs? No 7. Have you neglected your family because of you r use of drugs? No 8. Have you engaged in illegal activities in ord er to obtain drugs? No 9. Have you ever experienced withdrawal symptoms (felt sick) when you stopped taking drugs? No 10. Have you had medical pro blems as a result of your drug use (e.g., memory loss, hepatitis, convulsions, bleeding etc.)? No Results: 1 Interpretation of Score: Low level AUDIT-C (Standard) Question Answer Notes Did you have a drink containing alcohol in the p ast year? No Points 0 Interpretation Negative Vital Signs Height 5'6'' in 04/04/2025 Weight 212.0 lbs 04/04/2025 BMI 34.21 kg/m2 04/04/2025 Blood pressure systolic 130 mm Hg 04/04/20 25 Blood pressure diastolic 86 mm Hg 025 Oximetry 97 % 04/04/2025 Heart Rate 82 /min 04/04/2025 Encounters Encounter Location Date Provider Diagnosis [facility] [address] [place] [address] 04/04/2025 Ning Nolasco Major depressive disorder, recurrent episode with anxious distress F33.9 Assessments Encounter Date Diagnosis (ICD Code) Assessment Notes Treatment Notes Treatment Clinical Notes Section Notes 04/04/2025 Major depressive disorder, recurrent episode with anxious distress (ICD-10 - F33.9) Recommended treatment is: _ FDA approved medication for this age group include Selective Serotonin Reuptake Inhibitors (SSRI) and Selective Norepinephrine Reuptake Inhibitors (SNRI). . Selective serotonin reuptake inhibitors can cause nausea, headache, upset stomach, diarrhea, constipation, anxiety, irritability, and sexual dysfunction. . Please monitor for worsening of symptoms, especially suicidal ideations or morbid thoughts, and call office and or go to the emergency department immediately. Pt does not endorse exhibiting symptoms aligning with sabra. . The patient verbalizes understanding with all questions answered thoroughly and is in agreement with treatment plan. . Continue current treatment plan Patient/Guardian will call sooner if symptoms worsen. Patient understands to go to ER if needed if symptoms become severe. Crisis Intervention plan was discussed and agreed upon. Patient/Guardian will call 911 in case of emergency. Emergency contact information was provided to the patient/guardian. Plan Of Treatment Medication Medication Name Sig Start Date Stop Date Notes busPIRone HCl 30 MG 1 tablet Orally Twice a day hydrOXYzine Pamoate 50 MG 1 capsule at b edtime as needed Orally Once a day 02/07/2025 DULoxetine HCl 60 MG 1 capsule Orally twice daily hydrOXYzine Pamoate 25 MG 1 capsule Orally every 6 hours 0 12/07/2024 Mirtazapine 30 MG 1 tablet at bedtime Orally Once a day 03/07/2025 Treatment Notes Assessment Notes Major depressive disorder, r ecurrent episode with anxious distress Recommended treatment is: _ FDA approved medication for this age group include Selective Serotonin Reuptake Inhibitors (SSRI) and Selective Norepinephrine Reuptake Inhibitors (SNRI). . Selective serotonin reuptake inhibitors can cause nausea, headache, upset stomach, diarrhea, constipation, anxiety, irritability, and sexual dysfunction. . Please monitor for worsening of symptoms, especially suicidal ideations or morbid thoughts, and call office and or go to the emergency department immediately. Pt does not endorse exhibiting symptoms aligning with sabra. . The patient verbalizes understanding with all questions answered thoroughly and is in agreement with treatment plan. . Continue current treatment plan Patient/Guardian will call sooner if symptoms worsen. Patient understands to go to ER if needed if symptoms become severe. Crisis Intervention plan was discussed and agreed upon. Patient/Guardian will call 911 in case of emergency. Emergency contact information was provided to the patient/guardian. Next Appt Details Follow Up: 2 Months, Reason: Provider Name:Ning Nolasco, 0 06/06/2025 08:15:00 AM, [address] [place], [address], Progress Notes * SWANDER, JEFFREYDOB:[birth year] (64 yo M)Acc No.[id number]:04/04/2025 Behavioral Health Patient: CHARLI GARCIA Appointment Provider: Kristi Nolasco :1960 A ge:64 Y S ex:Male Date:04/04/2025 Address:[address] [place] [address], [facility], [id number] Subjective: * Chief Complaints: * P t is here in office for a 1 month F/U appt. * HPI: C onstitutional: Patient her for follow up visit. . Patient continues to report anxiety. He is on buspirone, duloxetine, mirtazepine at bedtime, He is using the hydroxyzine 25mg only about 4 times per week. . He states he occ. wants to chew my teeth . He is unsure what is causing his anxiety. . He is currently on duloxetine 60mg BID. H e was informed he cannot go any higher.? . He worries about getting things done by a certain time. He was encouraged to not push himself and get worked up over things he has more time to do. Depressive symptoms that have significantly improved include: 1. having more interest in daily activites and interests 2. stabilized diet 3. better sleep hygiene 4. more energy during the day 5. able to focus on tasks, less inattention 6. less feelings of worthlessness and inappropriate guilt 7. decreased thoughts of suicidal ideations. . . Denies suicidal or homicidal ideation or plan. No morbid thoughts. Interpersonal issues discussed. . Support provided. . * ROS: C ONSTITUTIONAL: No fever, chills, sweats, weakness SKIN: No jaundice, rash, lesions, petechiae GASTROINTESTINAL: No nausea, vomiting, diarrhea, or GI bleeding MUSCULOSKELETAL: No muscle pain or weakness NEUROLOGIC: No headache, dizziness, numbness, or weakness . * Medical History: * Surgical History: h ernia x2 back surgery appendectomy neck surgery foot of colon removed * Hospitalization/Major Diagno stic Procedure: s ee surgical * Family History: D aughter(s): alive. F ather: , diagnosed with Hypertension, Abuse, drug or alcohol. S on(s): alive. S pouse: alive. M other: , diagnosed with Diabetes. P aternal Grand Father: . P aternal Grand Mother: . M aternal Grand Father: . M aternal Grand Mother: . S iblings: alive. 2 brother(s) . 2 son(s) , 2 daughter(s) - healthy. . * Social History: D rug/Alcohol: D AST-10 (2020 Edition) 1 . Have you used drugs other than those required for medical reasons? N o 2 . Do you abuse more than one drug at a time??No 3 . Are you always able to stop using drugs when you want to? N o 4 . Have you had blackouts or flashbacks as a result of drug use? N o 5 . Do you ever feel bad or guilty about your drug use? N o 6 . Does your spouse (or parents) ever complain about your involvement with drugs? N o 7 . Have you neglected your family because of your use of drugs? N o 8 . Have you engaged in illegal activities in order to obtain drugs? N o 9 . Have you ever experienced withdrawal symptoms (felt sick) when you stopped taking drugs? N o 1 0. Have you had medical problems as a result of your drug use (e.g., memory loss, hepatitis, convulsions, bleeding etc.)? N o R esults: 1 I nterpretation of Score: L ow level AUDIT-C (Standard) D id you have a drink containing alcohol in the past year? N o P oints 0 I nterpretation N egative * Medications: T akingAtorvastatin Calcium 40 MG Tablet 1 tablet Orally Once a day Celecoxib 200 MG Capsule 1 capsule with food Orally Once a day Gabapentin 600 MG Tablet 1 tablet Orally Once a day Lisinopril Omeprazole 40 MG Capsule Delayed Release TAKE 1 CAPSULE BY MOUTH ONCE DAILY FOR ACID REFLUX Oral metFORMIN HCl 1000 MG Tablet TAKE 1 TABLET (1000MG) BY MOUTH IN THE MORNING AND 1 TABLET (1000MG) BEFORE BEDTIME Oral Ondansetron 4 MG Tablet Disintegrating DISSOLVE 1 (ONE) TABLET ON THE TONGUE EVERY 4 HOURS NEEDED FOR NAUSEA Oral rOPINIRole HCl 3 MG Tablet TAKE 1 TABLET BY MOUTH EVERY NIGHT AT BEDTIME for restless legs Oral Lisinopril-hydroCHLOROthiazide 20- 12.5 MG Tablet TAKE 1 TABLET BY MOUTH ONCE DAILY FOR BLOOD PRESSURE *NEW DOSE* Oral Lisinopril-hydroCHLOROthiazide 20-12.5 MG Tablet TAKE 1 TABLET BY MOUTH DAILY Oral Tresiba FlexTouch 200 UNIT/ML Solution Pen-injector INJECT 60 SUBCUTANEOUSLY IN THE MORNING Subcutaneous Cyclobenzaprine HCl 10 MG Tablet TAKE 1 TABLET BY MOUTH EVERY 6 HOURS NEEDED FOR MUSCLE SPASMS Oral hydrOXYzine Pamoate 25 MG Capsule 1 capsule Orally every 6 hours As neededDULoxetine HCl 60 MG Capsule Delayed Release Particles 1 capsule Orally twice daily hydrOXYzine Pamoate 50 MG Capsule 1 capsule at bedtime as needed Orally Once a day busPIRone HCl 30 MG Tablet 1 tablet Orally Twice a day Mirtazapine 30 MG Tablet 1 tablet at bedtime Orally Once a day Medication List reviewed and reconciled with the patientTaking Atorvastatin Calcium 40 MG Tablet 1 tablet Orally Once a day Taking Celecoxib 200 MG Capsule 1 capsule with food Orally Once a day Taking Gabapentin 600 MG Tablet 1 tablet Orally Once a day Taking Lisinopril Taking Omeprazole 40 MG Capsule Delayed Release TAKE 1 CAPSULE BY MOUTH ONCE DAILY FOR ACID REFLUX Oral Taking metFORMIN HCl 1000 MG Tablet TAKE 1 TABLET (1000MG) BY MOUTH IN THE MORNING AND 1 TABLET (1000MG) BEFORE BEDTIME Oral Taking Ondansetron 4 MG Tablet Disintegrating DISSOLVE 1 (ONE) TABLET ON THE TONGUE EVERY 4 HOURS NEEDED FOR NAUSEA Oral Taking rOPINIRole HCl 3 MG Tablet TAKE 1 TABLET BY MOUTH EVERY NIGHT AT BEDTIME for restless legs Oral Taking Lisinopril-hydroCHLOROthiazide 20-12.5 MG Tablet TAKE 1 TABLET BY MOUTH ONCE DAILY FOR BLOOD PRESSURE *NEW DOSE* Oral Taking Lisinopril-hydroCHLOROthiazide 20-12.5 MG Tablet TAKE 1 TABLET BY MOUTH DAILY Oral Taking Tresiba FlexTouch 200 UNIT/ML Solution Pen-injector INJECT 60 SUBCUTANEOUSLY IN THE MORNING Subcutaneous Taking Cyclobenzaprine HCl 10 MG Tablet TAKE 1 TABLET BY MOUTH EVERY 6 HOURS NEEDED FOR MUSCLE SPASMS Oral Taking hydrOXYzine Pamoate 25 MG Capsule 1 capsule Orally every 6 hours As neededTaking DULoxetine HCl 60 MG Capsule Delayed Release Particles 1 capsule Orally twice daily Taking hydrOXYzine Pamoate 50 MG Capsule 1 capsule at bedtime as needed Orally Once a day Taking busPIRone HCl 30 MG Tablet 1 tablet Orally Twice a day Taking Mirtazapine 30 MG Tablet 1 tablet at bedtime Orally Once a day Medication List reviewed and reconciled with the patient * Allergies: N .K.D.A.no[Allergies Verified] Objective: * Vitals: H t: 5'6'', Wt: 212.0 lbs, BMI:34.21Index, BP: 130/86 mm Hg, SaO2: 97 %, HR: 82 /min. * Examination: G eneral Examination: . MENTAL STATUS EXAM: . Appearance: Appropriately dressed and groomed, good eye contact, cooperative, pleasant Behavior/Motor Activity: Normal Gait/Station: Within normal limits BH Speech: Normal Mood: Good Affect: Full Thought processes/Associations: Logical and goal directed Thought Content: Non-psychotic Cognition/Attention/Memory/Concentration: Alert and oriented x 4; grossly intact attention; memory-recent/remote judged adequate by interviewer Insight: Good Judgement: Good BH language: Within normal limits Fund of Knowledge: Adequate . . Assessment: * Assessment: 1. M ajor depressive disorder, recurrent episode with anxious distress - F33.9 (Primary) ? Plan: * Treatment: * Procedure Codes: 3 079F DIAST BP 80-89 MM [id number] SYST BP GE 130 - 139MM [id number] RVW MEDS BY RX/ IN RCRD * Follow Up: 2 Months * Images: * Sign off status: Completed true * Appointment Provider: Kristi Nolasco Date: 04/04/2025 Generated for Guadalupe landaverde/Jean-Paul/Chela on: 04/18/2025 08:48 AM EDT History and Physical Notes * Examination Category Sub-Category Detail Notes Category Not es General Examination . MENTAL STATUS EXAM: . Appearance: Appropriately dressed and groomed, good eye contact, cooperative, pleasant Behavior/Motor Activity: Normal Gait/Station: Within normal limits BH Speech: Normal Mood: Good Affect: Full Thought processes/Associations: Logical and goal directed Thought Content: Non-psychotic Cognition/Attention/Memory/Con centration: Alert and oriented x 4; grossly intact attention; memory-recent/remote judged adequate by interviewer Insight: Good Judgement: Good BH language: Within normal limits Fund of Knowledge: Adequate .
--- OUTSIDE RECORDS SUMMARY | 2025-04-13 10:30 | XMS_ITS | Encounter Summary ---
Author Organization [facility] Healthcare Address [address] [place] [address] Care Team Providers Care Marine Engineering Technicians Name Role Phone Andre Gary Primary Care Provider [phone] Oliver Kerr MD Unavailable Unavailable Reason for Referral * Imaging (Routine) - Authorized Specialty Diagnoses / Procedures Referred By Contac t Referred To Contact Radiology Diagnoses Left lower quadrant abdominal pain Abdominal wall pain Procedures CT abdomen pelvis w IV contrast Emmett Becker MD [address] [address] Phone: tel: fax: [facility] [address] [place] [place] [address] Phone: tel: fax: Referral ID Status Reason Start Date Expiration Date V isits Requested Visits Authorized [id number] Authorized 04/13/2025 10/10/2025 1 1 Reason for Visit * Reason Comments Follow-up Abdominal wall pain on left side. Pt states he has some burning. * Consultation (Routine) - Closed Specialty Diagnoses / Procedures Referred By Contac t Referred To Contact General Surgery Diagnoses Abdominal wall pain Procedures [place] OFFICE/OUTPATIENT NEW HIGH MDM 60 MINUTES Andre Gary [address] [place] [address] Phone: tel: fax: JANET THAO [address] [address] Phone: tel: fax: Referral ID Status Reason Start Date Expiration Date V isits Requested Visits Authorized [id number] Closed Specialty Services Required 03/18/2025 09/14/2025 1 1 Encounter Details Date Type Department Care Team (Late st Contact Info) Description 04/13/2025 10:30 AM EDT Office Visit JANET MANCIA 703 [facility] [place] [address] Emmett Becker MD [address] [address] Left lower quadrant abdominal pain (Primary Dx); Abdominal wall pain Social History Tobacco Use Types Packs/Day Years Used Date Smoking Tobacco: Former Cigarettes Q uit: 10/27/2017 Smokeless Tobacco: Never Alcohol Use Standard Drinks/Week Comments Yes 0 (1 standard drink = 0.6 oz pure alcohol) caffeine intake:coffee and iced tea, > 4 cups per day Humiliation, Afraid, Rape, and Kick questionnair e Answer Date Recorded Within the last year, have y ou been afraid of your partner or ex-partner? Yes 10/07/2023 Within the last year, have y ou been humiliated or emotionally abused in other ways by your partner or ex-partner? Patient declined 10/07/2023 Within the last year, have y ou been kicked, hit, slapped, or otherwise physically hurt by your partner or ex-partner? No 10/07/2023 Within the last year, have y ou been raped or forced to have any kind of sexual activity by your partner or ex-partner? No 10/07/2023 Social Connection and Isolation Panel [NHANES] A nswer Date Recorded In a typical week, how many times do you talk on the phone with family, friends, or neighbors? Once a week 10/07/2023 How often do you get together with friends or re latives? Twice a week 10/07/2023 How often do you attend quaker or moravian serv ices? Never 10/07/2023 Do you belong to any clubs o r organizations such as quaker groups, unions, fraternal or athletic groups, or school groups? Yes 10/07/2023 How often do you attend meet ings of the clubs or organizations you belong to? Never 10/07/2023 Are you , , di vorced, , never , or living with a partner? 10/07/2023 AUDIT-C Answer Date Recorded Q1: How often do you have a drink containing alc ohol? 2-3 times a week 10/07/2023 Q2: How many drinks containi ng alcohol do you have on a typical day when you are drinking? 1 or 2 10/07/2023 Q3: How often do you have si x or more drinks on one occasion? Never 10/07/2023 Overall Financial Resource Strain (CARDIA) Answe r Date Recorded How hard is it for you to pa y for the very basics like food, housing, medical care, and heating? Very hard 10/07/2023 PHQ-2 Answer Date Recorded Patient Health Questionnaire-2 Score 0 10/15/2024 [facility] - Occupational Stress Questionnaire Answer Date Recorded Do you feel stress - tense, restless, nervous, or anxious, or unable to sleep at night because your mind is troubled all the time - these days? Very much 10/07/2023 Exercise Vital Sign Answer Date Recorde d On average, how many days pe r week do you engage in moderate to strenuous exercise (like a brisk walk)? 4 days 10/07/2023 On average, how many minutes do you engage in exercise at this level? 30 min 10/07/2023 Hunger Vital Sign Answer Date Recorded Within the past 12 months, y ou worried that your food would run out before you got the money to buy more. Sometimes true Within the past 12 months, t he food you bought just didn't last and you didn't have money to get more. Patient declined 09/2023 PRAPARE - Transportation Answer Date Re corded In the past 12 months, has l ack of transportation kept you from medical appointments or from getting medications? No 09/26 In the past 12 months, has l ack of transportation kept you from meetings, work, or from getting things needed for daily living? No 10/07/2023 Housing Stability Vital Sign Answer Jeff e Recorded In the last 12 months, was t here a time when you were not able to pay the mortgage or rent on time? Patient refused 10/07/20 23 In the last 12 months, how many places have you lived? 1 10/07/2023 In the last 12 months, was t here a time when you did not have a steady place to sleep or slept in a fdc (including now)? Patient refused 10/07/2023 Sex and Gender Information Value Date Recorded Sex Assigned at Not on file Legal Sex Male 6:37 PM EDT Gender Identity Not on file Sexual Orientation Not on file documented as of this encounter Last Filed Vital Signs Vital Sign Reading Time Taken Comments Blood Pressure 120/72 04/13/2025 10:16 AM EDT Pulse - - Temperature - - Respiratory Rate - - Oxygen Saturation - - Inhaled Oxygen Concentration - - Weight 102 kg (225 lb) 04/13/2025 10:16 AM EDT Height 167.6 cm (5' 6 ) 04/13/2025 10:16 AM EDT Body Mass Index 36.32 04/13/2025 10:16 AM EDT documented in this encounter Progress Notes * Emmett Caceres MD - 04/13/2025 10:30 AM EDT Images from the original note were not included. Koko Hernandez 1960 Koko Hernandez is a 64 y.o. male presents with chief complaint of Follow-up (Abdominal wall painon left side. Pt states he has some burning.) HPI: Mr. Hernandez is a 64 year old male with past history of asthma, AMINA on CPAP, chronic pain, anxiety, GERD, T2DM controlled with insulin, HTN, HDL, right shoulder replacement, sacral spine stimulator, appendectomy, right-sided diverticulitis post colon resection, small bowel resection, ventral hernia r epair and left-sided inguinal hernia repair who presents for surgical follow up for chief complaintof LLQ abdominal pain, abdominal wall pain, and some abdominal wall burning. These symptoms have been ongoing for two months; there is a constant ache under a left-sided scar from a ventral hernia repair, in addition to some lateral burning that follows his belt line. Feels worse when he bears down, but otherwise there is nothing that makes it particularly worse or better. Cannot identify an triggers or specific times of day when the pain is worse. In August 2024, patient underwent spine surgery at [facility], patient states that neurosurgeon removed former metal plating, added two vertebra to the lumbar spine, and restored the lumbar curve. Reports that chronic back pain is markedly improved since surgery, but he does have some trouble with periodic burning sensations down his right leg now. Last colonoscopy was three years ago, but bowel prep was not complete, which made vi sualization of the colon difficult. Today, patient endorses daily non-bloody diarrhea, nausea, and headaches, but denies appetite changes, weight changes, fevers, constipation. Denies allergies. Denies history of shingles vaccine. SUBJECTIVE: MEDICATIONS: ALLERGIES Current Outpatient Medications Medication Instructions acetaminophen (Tylenol) 325 MG tablet atorvastatin (Lipitor) 40 MG tablet Every 24 hours B-D UF III MINI PEN NEEDLES 31G X 5 MM misc busPIRone (Buspar) 30 MG tablet 3 times daily cyclobenzaprine (FLEXERIL) 10 mg, 3 times daily DULoxetine (Cymbalta) [address] capsule 1 capsule, Every 12 hours escitalopram (Lexapro) 10 MG tablet Every 24 hours famotidine (PEPCID) 20 mg, Oral, Nightly gabapentin (Neurontin) 600 MG tablet 2 capsules, 3 times daily hydrOXYzine pamoate (Vistaril) 25 MG capsule Every 24 hours insulin aspart (NovoLOG FLEXPEN) 100 UNIT/ML pen 10 units qAC plus correction 2:30 > 150 mg/dl (max daily 50 units) Insulin Degludec FlexTouch 50 Units, Subcutaneous, Every morning lisinopril-hydroCHLOROthiazide 20-12.5 MG tablet Every 24 hours metFORMIN (GLUCOPHAGE) 1,000 mg, Oral, 2 times daily with meals mirtazapine (Remeron) 15 MG tablet Every 24 hours Mounjaro 2.5 mg, Subcutaneous, Weekly omeprazole (PriLOSEC) [address] capsule ondansetron ODT (Zofran-ODT) 8 MG disintegrating tablet pantoprazole (ProtoNix) 40 MG EC tablet Respiratory Therapy Supplies ([facility] CPAP Filter) misc rOPINIRole (REQUIP) 1 mg, Daily UltiCare Alcohol Swabs 70 % pads No Known Allergies PAST MEDICAL HISTORY: SOCIAL HISTORY SURGICAL HISTORY: Past Medical History: Diagnosis Date Anxiety Appendicitis Arthritis Asthma (HCC) Bronchitis Chicken pox Depression Diabetes (HCC) HL (hearing loss) Hx of being hospitalized 02/10/2023 RCTR- [facility] Hyperlipidemia Hypertension Visual impairment Social History Tobacco Use Smoking status: Former Current packs/day: 0.00 Types: Cigarettes Quit date: 10/27/2017 Years since quittin.4 Smokeless tobacco: Never Substance Use Topics Alcohol use: Yes Comment: caffeine intake:coffee and iced tea, > 4 cups per day Drug use: Yes Types: Marijuana Past Surgical History: Procedure Laterality Date APPENDECTOMY BACK SURGERY 2006 BACK SURGERY 09/17/2024 BOWEL RESECTION 2006 small bowel resection CARPAL TUNNEL RELEASE 2003 COLON SURGERY COLONOSCOPY ESOPHAGOGASTRODUODENOSCOPY EYE EXAM 2013 FINGER SURGERY 10/2019 reattached tip of right little finger FRACTURE SURGERY HERNIA REPAIR 2023 x 2 INGUINAL HERNIA REPAIR MULTIPLE TOOTH EXTRACTIONS 2017 extraction of 14 teeth NECK SURGERY SACRAL NERVE STIMULATOR PLACEMENT 2013 SHOULDER SURGERY 04/18/2021 right shoulder replacement SPINE SURGERY REVIEW OF SYMPTOMS: Review of Systems Constitutional: Negative for appetite change, fever and unexpected weight change. Respiratory: Negative for shortness of breath. Cardiovascular: Negative for chest pain. Gastrointestinal: Positive for abdominal pain (LLQ), diarrhea and nausea. Negative for blood in stool, constipation and vomiting. Genitourinary: Negative for difficulty urinating. Musculoskeletal: Negative for arthralgias, back pain and myalgias. Skin: Negative for color change. Neurological: Positive for headaches. Allergic/Immunologic: Negative for environmental allergies and food allergies. OBJECTIVE: Visit Vitals BP 120/72 Ht 5' 6 Wt 225 lb BMI 36.32 kg/m?? Smoking Status Former BSA 2.18 m?? Physical Exam Constitutional: Appearance: Normal appearance. He is normal weight. HENT: Head: Normocephalic and atraumatic. Cardiovascular: Rate and Rhythm: Normal rate and regular rhythm. Pulses: Normal pulses. Heart sounds: Normal heart sounds. Pulmonary: Effort: Pulmonary effort is normal. Breath sounds: Normal breath sounds. No wheezing. Abdominal: General: Bowel sounds are normal. Tenderness: There is abdominal tenderness in the left lower quadrant. Hernia: A hernia is present. Hernia is present in the umbilical area. Comments: Midline incision scar from right colectomy Left-sided ventral incision scar from ventral hernia repair No rashes or lesions noted on the left side of the abdomen Non-tender, non-erythematous, umbilical hernia around 1 cm in diameter Musculoskeletal: Right lower leg: No edema. Left lower leg: No edema. Skin: General: Skin is warm and dry. Neurological: General: No focal deficit present. Mental Status: He is alert and oriented to person, place, and time. Mental status is at baseline. Psychiatric: Mood and Affect: Mood normal. Behavior: Behavior normal. Thought Content: Thought content normal. Judgment: Judgment normal. ASSESSMENT AND PLAN: Assessment/Plan Diagnoses and all orders for this visit: Left lower quadrant abdominal pain - Creatinine, Serum; Future - CT abdomen pelvis w IV contrast; Future Abdominal wall pain - Ambulatory referral to General Surgery - Creatinine, Serum; Future - CT abdomen pelvis w IV contrast; Future Plan will be to obtain a CT scan of the abdomen and pelvis. Patient will follow- up following this study. Depending on the findings, we may discuss colonoscopy. documented in this encounter Plan of Treatment Upcoming Encounters Date Type Department Care Team (Late st Contact Info) Description 04/18/2025 11:15 AM EDT Office Visit [facility] [address] [place] [address] Lisbet Brewster DO [address] [place] [address] 04/27/2025 10:30 AM EDT Office Visit JANET MANCIA 703 [facility] [address] [place] [address] Emmett Becker MD 703 [facility] [address] [place] [address] Scheduled Orders Name Type Priority Associated Diagnoses Orde r Schedule Creatinine, Serum Lab Routine Left lower quadrant abdominal pain Abdominal wall pain Expected: 04/13/2025 (Approximate), Expires: 04/13/2026 CT abdomen pelvis w IV contrast Imaging Routine Left lower quadrant abdominal pain Abdominal wall pain Expected: 04/13/2025, Expires: 04/13/2026 documented as of this encounter Visit Diagnoses Diagnosis Left lower quadrant abdominal pain- Primary Abdominal wall pain Abdominal pain, unspecified site documented in this encounter Care Teams Marine Engineering Technicians Relationship Specialty Start Date End Date RodjayleenAndre [address] [place] [address] PCP - General Family Medicine 03/27/23 Oliver Kerr MD [address] [facility] [place] [address] Referring Physician Neurology 10/27/23 documented as of this encounter
--- OUTSIDE RECORDS SUMMARY | 2025-04-18 08:49 | XMS_ITS | Encounter Summary ---
Author Organization [facility] Address [address] [place] [address] Phone Care Team Providers Care Licensed Psychologist Director Name Role Phone Andre Gary DO Primary Care Provider [phone] Braxton January RN Unavailable Unavailable Encounter Details Date Type Department Care Team (Late st Contact Info) Description 08/25/2024 Scanned Document [facility] [address] [place] [address] [place] [address] [address] Department of Neurological Surgery [place], [place] [id number] Social History Tobacco Use Types Packs/Day Years Used Date Smoking Tobacco: Former Cigarettes Q uit: 2018 Smokeless Tobacco: Never Alcohol Use Standard Drinks/Week Comments Yes 0 (1 standard drink = 0.6 oz pur e alcohol) occasionally -1-2 on a weekend AUDIT-C Answer Date Recorded Q1: How often do you have a drink containing alc ohol? 2-4 times a month 05/24/2024 Q2: How many drinks containi ng alcohol do you have on a typical day when you are drinking? 1 or 2 05/24/2024 Q3: How often do you have si x or more drinks on one occasion? Less than monthly 05/24/2024 Overall Financial Resource Strain (CARDIA) Answe r Date Recorded How hard is it for you to pa y for the very basics like food, housing, medical care, and heating? Not hard at all 05/25/2024 PHQ-2 Answer Date Recorded Patient Health Questionnaire-2 Score 0 05/24/2024 PRAPARE - Transportation Answer Date Re corded In the past 12 months, has l ack of transportation kept you from medical appointments or from getting medications? No 04/28 In the past 12 months, has l ack of transportation kept you from meetings, work, or from getting things needed for daily living? No 05/25/2024 Housing Stability Vital Sign Answer Jeff e Recorded In the last 12 months, was t here a time when you were not able to pay the mortgage or rent on time? No 05/25/2024 In the past 12 months, how m any times have you moved where you were living? 0 05/25/2024 At any time in the past 12 m [facility], were you homeless or living in a fpc (including now)? No 05/25/2024 Sex and Gender Information Value Date Recorded Sex Assigned at Not on file Legal Sex Male 5:23 PM EST Gender Identity Not on file Sexual Orientation Not on file COVID-19 Exposure Response Date Recorded In the last 10 days, have yo u been in contact with someone who was confirmed or suspected to have Coronavirus/COVID-19? No / Unsure 08/24/2024 10:31 AM EDT documented as of this encounter Plan of Treatment Not on file documented as of this encounter Goals Goal Patient Goal Type Associated Problems Recent Progress Patient-Stated? Author Help patient manage spine surgery Care Plan Patient has spine surgery No Hemal Quintero MD documented as of this encounter Visit Diagnoses Not on filedocumented in this encounter Additional Health Concerns Active Problems Noted Date Diagnosed Date Patient has spine surgery 04/01/2024 Assessment Noted Time A fall risk assessment has been complete d for the patient 04/01/2024 9:06 AM EDT documented as of this encounter Care Teams Licensed Psychologist Director Relationship Specialty Start Date End Date Andre Gary DO [address] [facility] [place] [address] PCP - General Family Medicine 04/01/24 Krys Limon RN Nurse Navigator Spine Surgery 05/24/24 08/25/24 documented as of this encounter
--- OUTSIDE RECORDS SUMMARY | 2025-04-18 08:49 | XMS_ITS | Encounter Summary ---
Author Organization [facility] Address [address] [place] [address] Care Team Providers Care De Icer Element Winder Name Role Phone Andre Gary Primary Care Provider [phone] Oliver Kerr MD Unavailable Unavailable Encounter Details Date Type Department Care Team (Late st Contact Info) Description 09/23/2023 External Result Encounter [facility] External Department Unsolicited Emmett Herrera MD [address] [address] Social History Tobacco Use Types Packs/Day Years Used Date Smoking Tobacco: Former Cigarettes Q uit: 10/27/2017 Smokeless Tobacco: Never Comments:Quit smoking 5-10 y ears ago Alcohol Use Standard Drinks/Week Comments Never 0 (1 standard drink = 0.6 oz pure alcohol) caffeine intake:coffee and iced tea, > 4 cups per day AUDIT-C Answer Date Recorded Q1: How often do you have a drink containing alcohol? Never 03/26/2023 Q2: How many drinks containi ng alcohol do you have on a typical day when you are drinking? Patient does not drink Q3: How often do you have si x or more drinks on one occasion? Never 03/26/2023 PHQ-2 Answer Date Recorded Patient Health Questionnaire-2 Score 0 07/01/2023 Sex and Gender Information Value Date Recorded Sex Assigned at Not on file Legal Sex Male 6:37 PM EDT Gender Identity Not on file Sexual Orientation Not on file documented as of this encounter Plan of Treatment Upcoming Encounters Date Type Department Care Team (Late st Contact Info) Description 04/18/2025 11:15 AM EDT Office Visit [facility] [address] [place] [address] Lisbet Brewster, DO [address] [place] [address] 04/27/2025 10:30 AM EDT Office Visit [facility] [address] [place] [address] Emmett Herrera MD [address] [place] [address] documented as of this encounter Procedures Procedure Name Priority Date/Time Associated Diagnosis Comments ECG 12-LEAD 09/23/2023 10:36 AM EST documented in this encounter Results * ECG 12 lead (09/23/2023 10:36 AM EST) 09/23/2023 10:3 6 AM EST [facility] - 09/26/2023 5:33 PM [facility] Main [address] [address] Electrocardiograph Report Signed Patient: Koko Hernandez MR#: [id number] : 1960 Acct:[id number] Age/Sex: 62 / M ADM Date: 09/23/23 Loc: PS Room: Type: [facility] Attending Dr: Emmett Herrera MD Ordering Provider: Emmett Herrera MD Date of Service: 09/23/23 ECG/ECG 12 [...] 17:17, QRS axis shifted right Confirmed by KIRSTIE DOWLING MD, FACC () on 09/23/2023 10:29:43 PM Referred By: OLEGARIO HERRERA Electronically Signed By:KIRSTIE DOWLING MD, FACC Transcribed By: MUS Signed By Barron Dowling MD 09/23/232228 Procedure Note Rell Dowling MD - 09/26/2023 [facility] Main [place] [address] [place], [place] [id number] Electrocardiograph Report Signed Patient: Koko Hernandez [facility]#: [id number] : 9Acct:[id number] Age/Sex: 62 / MADM Date: 09/23/23 Loc: Room:Type: [facility] Attending Dr: Emmett Herrera MD Ordering Provider: Emmett Herrera MD Date of Service: 09/23/23 ECG/ECG 12 [...] 17:17, QRS axis shifted right Confirmed by KIRSTIE DOWLING MD, FACC () on 09/23/2023 10:29:43 PM Referred By: OLEGARIO HERRERA Electronically Signed By:TYRONE MATUTE FACC Transcribed By: MUS Signed By Barron Dowling MD 09/23/232228 us Emmett Caceres MD ECG [place] [address], [place] documented in this encounter Visit Diagnoses Not on filedocumented in this encounter Care Teams De Icer Element Winder Relationship Specialty Start Date End Date Andre Gary [address] [facility] [place] [address] PCP - General Family Medicine 03/27/23 Oliver Kerr MD [address] [place] [address] Referring Physician Neurology 10/27/23 documented as of this encounter
--- OUTSIDE RECORDS SUMMARY | 2025-04-18 08:49 | XMS_ITS | Patient Health Record ---
Author Organization [facility] Serv[facility] es Address [address] [address] Care Team Providers Care Distribution Dispatcher Name Role Phone Ning Moran Primary Care Provider Allergies No Known Allergies Results Component Value Reference Range Notes Thyroid Profile II Reviewed date:08/14/2024 08:53:47 PM Interpretation: Performing Lab:, [facility], [address] Notes/Report: Reason for Exam Major depressive disorder, recurrent Performed at: [facility] with anxious di [address] [place] [id number] Structured Cabling Technician: Tim Du PhD, Phone: [phone] Triiodothryronine (T3) Uptake 28 24-39 % [facility] Thyroxine (T4) 7.1 4.5-12.0 ug/dL Free Thyroxine Index 2.0 1.2-4.9 [facility] Triiodothyronine,(T3) 112 71-180 ng/ dL TSH ([facility]) 3.210 0.450-4.500 u[iU]/mL Complete Blood Count Auto Di ff Reviewed date:08/14/2024 08:53:40 PM Interpretation: Performing Lab:, [facility], [address] Notes/Report: Reason for Exam Major depressive disorder, recurrent episode with anxious di White Blood Count 8.4 4.1-10.5 10*3/uL Uncorrected WBC 8.4 4.1-10.5 10*3/uL Red Blood Count 5.29 3.90-5.60 Hemoglobin 17.0 13.0-17.0 g/dL Hematocrit 51.1 38.8-50.0 % Mean Corpuscular Volume 96.8 83.5-101 fL Mean Corpuscular Hemoglobin 32.2 27.5-35.2 pg Mean Corpuscular HGB Conc 33.2 32.5-35.6 g/dL Red Cell Distribution Width 14.5 12.0-14.8 % Platelet Count 198 150-450 10*3/uL Mean Platelet Volume 8.5 6.6-10.1 fL Neutrophils % (Auto) 73.5 . % Lymphocytes % (Auto) 17.9 . % Monocytes % (Auto) 5.8 . % Eosinophils % (Auto) 2.0 . % Basophils % (Auto) 0.8 . % NRBC% 0.0 0-0.5 /100{WBC} Neutrophils # (Auto) 6.2 1.8-7.7 10*3/uL Lymphocytes # (Auto) 1.5 1.00-4.8 10*3/uL Monocytes # (Auto) 0.5 0.0-0.8 10*3/uL Eosinophils # (Auto) 0.2 0.0-0.45 10*3/uL Basophils # (Auto) 0.1 0.0-0.2 10*3/uL Comprehensive Metabolic Pane l Reviewed date:08/14/2024 08:54:39 PM Interpretation: Performing Lab:, [facility], [address] [place] Notes/Report: Reason for Exam Major depressive disorder, recurrent episode with anxious di Glucose 230 70-100 mg/dL Random Glucose Reference Range is dependent on time and content of last meal. Glucose of more than 200 mg/dL in a nonstressed, ambulatory subject supports the diagnosis of Diabetes Mellitus. ADA recommended reference range Blood Urea Nitrogen 18 7-25 mg/dL Creatinine 0.94 0.70-1.30 mg/dL Sodium 138 136-145 mmol/L Potassium 5.1 3.5-5.1 mmol/L Chloride 97 98-107 mmol/L Carbon Dioxide 33.9 21.0-31.0 mmol/L Calcium 9.2 8.6-10.3 mg/dL Total Protein 6.5 6.4-8.9 g/dL Albumin Level 3.8 3.5-5.7 g/dL Globulin 2.7 Albumin/Globulin Ratio 1.4 Bilirubin,Total 0.6 0.3-1.0 mg/dL Aspartate Amino Transferase 21 13-39 U/L Alanine Aminotransferase 20 7-52 U/L Alkaline Phosphatase 78 34-104 U/L Estimated GFR > 60.0 Anion Gap 12.2 6.0-15.0 Reason For Referral Reason 06/23/24 [facility] return call to office to get scheduled with COAGULATOR. /06/22 scheduled with ning moran on 07/28 referred by Dana Broderick from [facility] for anxiety, depression and memory loss. Diagnosis 1 Memory change (R41.3 ) Referred Organization [facility] Referred Address [address], [place],[address], Referred Provider Specialty Psychiatry Referral Priority Routine Medications Medication SIG (Take, Route, Frequency, Duration) Notes Start Date End Date Status Omeprazole 40 MG TAKE 1 CAPSULE BY [facility] ONCE DAILY FOR ACID REFLUX Oral for 30 Days Active hydrOXYzine Pamoate 25 MG 1 capsule Orally every 6 hours As needed 12/07/2024 Active Lisinopril-hydroCHLOROthiaz radha 20-12.5 MG TAKE 1 TABLET BY MOUTH ONCE DAILY FOR BLOOD PRESSURE *NEW DOSE* Oral for 25 Days Active Gabapentin 600 MG 1 tablet Orally Once a day Active rOPINIRole HCl 3 MG TAKE 1 TABLET BY TWYLA TH EVERY NIGHT AT BEDTIME for restless legs Oral for 30 Days Active Ondansetron 4 MG DISSOLVE 1 (ONE) TAB LET ON THE TONGUE EVERY 4 HOURS NEEDED FOR NAUSEA Oral for 2 Days Active Mirtazapine 30 MG 1 tablet at bedtime Orally Once a day 03/07/2025 Active metFORMIN HCl 1000 MG TAKE 1 TABLET (100 0MG) BY MOUTH IN THE MORNING AND 1 TABLET (1000MG) BEFORE BEDTIME Oral for 30 Days Active Celecoxib 200 MG 1 capsule with food Orally Once a day Active busPIRone HCl 30 MG 1 tablet Orally Twic e a day Active Atorvastatin Calcium 40 MG 1 tablet Oral ly Once a day Active Cyclobenzaprine HCl 10 MG TAKE 1 TABLET BY MOUTH EVERY 6 HOURS NEEDED FOR MUSCLE SPASMS Oral for 15 Days Active hydrOXYzine Pamoate 50 MG 1 capsule at b edtime as needed Orally Once a day 02/07/2025 Active Tresiba FlexTouch 200 UNIT/ML INJECT 60 SUBCUTANEOUSLY IN THE MORNING Subcutaneous for 90 Days Active DULoxetine HCl 60 MG 1 capsule Orally tw ice daily Active Lisinopril-hydroCHLOROthiaz radha 20-12.5 MG TAKE 1 TABLET BY MOUTH DAILY Oral for 30 Days Active Lisinopril Active Social History Tobacco Use: Social History Observation Description Date Details (start date - stop date) Former Smoker NA - NA Depression Screening (PHQ-9): Question Answer Notes Little interest or pleasure in doing things Nearly every day Feeling down, depressed, or hopeless More than h prison the days Trouble falling or staying a sleep, or sleeping too much Nearly every day Feeling tired or having little energy Nearly donn day Poor appetite or overeating More than half the d ays Feeling bad about yourself-o r that you are a failure or have let yourself or your family down More than half the days Trouble concentrating on thi ngs, such as reading the newspaper or watching television More than half the days Moving or speaking so slowly that other people could have noticed. Or the opposite being so fidgety or restless that you have been moving around a lot more than usual Nearly every day Thoughts that you would be b davis off , or of hurting yourself in some way Several days(Consider Suicide Assessment Risk) Total Score 21 Intepretation Severe Depression DAST-10 (2020 Edition) Question Answer Notes 1. [...] ast year? No Points 0 Interpretation Negative Tobacco Control (Standard) Question Answer Notes Tobacco use: Former smoker Problems Problem Type SNOMED Code ICD Code Onset Dates Problem Status W/U Status Risk Notes Problem Amnesia (60529616) Memory change (R41.3) Active confirmed Problem Recurrent major depression (58454057) Major depressive disorder, recurrent episode with anxious distress (F33.9) Active confirmed Vital Signs Heart Rate 82 /min 04/04/2025 Oximetry 97 % 04/04/2025 Blood pressure diastolic 86 mm Hg 04/04/2025 Height 5'6'' in 04/04/2025 Blood pressure systolic 130 mm Hg 04/04/2025 Weight 212.0 lbs 04/04/2025 BMI 34.21 kg/m2 04/04/2025 Encounters Encounter Location Date Provider Diagnosis [facility] [address] [address] 04/07/2025 Ning [facility] [address] [facility] [place] [address] 07/28/2024 Ning Moran Major depressive disorder, recurrent episode with anxious distress F33.9 and Medication management Z79.899 [facility] [address] [place] [address] 08/26/2024 Ning Moran Major depressive disorder, recurrent episode with anxious distress F33.9 [facility] [address] [place] [address] 10/14/2024 Ning Moran Major depressive disorder, recurrent episode with anxious distress F33.9 and Memory change R41.3 [facility] [address] [place] [address] 12/07/2024 Ning Moran Major depressive disorder, recurrent episode with anxious distress F33.9 [facility] [address] [place] [address] 02/07/2025 Ning Moran Major depressive disorder, recurrent episode with anxious distress F33.9 [facility] [address] [place] [address] 03/07/2025 Ning Moran Major depressive disorder, recurrent episode with anxious distress F33.9 [facility] [address] [place] [address] 04/04/2025 Ning Moran Major depressive disorder, recurrent episode with anxious distress F33.9 Assessments Encounter Date Diagnosis (ICD Code) Assessment Notes Treatment Notes Treatment Clinical Notes Section Notes 10/14/2024 Major depressive disorder, recurrent episode with anxious [...] contact information was provided to the patient/guardian. 12/07/2024 Major depressive disorder, recurrent episode with anxious distress (ICD-10 - F33.9) Recommended treatment is: FDA approved medication for this age group include Selective Serotonin Reuptake Inhibitors (SSRI) and Selective Norepinephrine Reuptake Inhibitors (SNRI). . Selective serotonin reuptake inhibitors? can cause nausea, headache, upset stomach, diarrhea, [...] contact information was provided to the patient/guardian. 02/07/2025 Major depressive disorder, recurrent episode with anxious [...] treatment plan. . Continue current treatment plan with increase in hydroxyzaine dose, add mirtazepine at bedtime. Patient/Guardian will call sooner if symptoms worsen. Patient understands to go to ER if needed if symptoms become severe. Crisis Intervention plan was discussed and agreed upon. Patient/Guardian will call 911 in case of emergency. Emergency contact information was provided to the patient/guardian. 03/07/2025 Major depressive disorder, recurrent episode with anxious distress (ICD-10 - F33.9) Recommended treatment is: FDA approved medication for this age group include Selective Serotonin Reuptake Inhibitors (SSRI) and Selective Norepinephrine Reuptake Inhibitors (SNRI). . Selective serotonin reuptake inhibitors? can cause nausea, headache, upset stomach, diarrhea, [...] treatment plan. . Continue current treatment plan with increase in mirtazepine to 30mg at bedtime. Patient/Guardian will call sooner if symptoms worsen. Patient understands to go to ER if needed if symptoms become severe. Crisis Intervention plan was discussed and agreed upon. Patient/Guardian will call 911 in case of emergency. Emergency contact information was provided to the patient/guardian. 04/04/2025 Major depressive disorder, recurrent episode with [...] contact information was provided to the patient/guardian. 07/28/2024 Major depressive disorder, recurrent episode with anxious distress (ICD-10 - F33.9) Based on DSM V, this patient meets the criteria for the diagnosis of: _ Major Depressive disorder with anxious distress . Recommended treatment is: FDA approved medication for this age group include Selective Serotonin Reuptake Inhibitors (SSRI) and Selective Norepinephrine Reuptake Inhibitors (SNRI). . Selective serotonin reuptake inhibitors? can cause nausea, headache, upset stomach, diarrhea, [...] treatment plan. . Continue current treatment plan with addition of mirtazepine at bedtime. OARRS reviewed . Currently at low risk for self harm. Denies ongoing feelings of hopelessness. Denies ongoing suicidal ideation, intent or plan in session. . Informed consent obtained: YES, we discussed the diagnosis/diagnoses , the treatment options, treatment(s) recommended vs. no treatment. We discussed risks and benefits of treatment options, treatment recommendations vs. no treatment. Patient/Guardian will call sooner if symptoms worsen. Patient understands to go to ER if needed if symptoms become severe. Crisis Intervention plan was discussed and agreed upon. Patient/Guardian will call 911 in case of emergency. Emergency contact information was provided to the patient/guardian. . 08/26/2024 Major depressive disorder, recurrent episode with anxious [...] treatment plan. . Continue current treatment plan with addition of escitalopram. Patient/Guardian will call sooner if symptoms worsen. Patient understands to go to ER if needed if symptoms become severe. Crisis Intervention plan was discussed and agreed upon. Patient/Guardian will call 911 in case of emergency. Emergency contact information was provided to the patient/guardian. 10/14/2024 Memory change (ICD-10 - R41.3) 07/28/2024 Medication management (ICD-10 - Z79.899) Plan Of Treatment Next Appt Details Provider Name:Ning Moran, 0 06/06/2025 08:15:00 AM, [address] [place], [address], Insurance Providers Payer Name Payer Address Payer Phone Subscriber Number Group Number Insured Name Patient Relationship to Insured Coverage Start Date Coverage End Date [employer] H[employer] MEDICARE [address] [address] [place] [address] [id number] CHARLI MEIER Self - patient is the insured 5 Medical (General) History Medical History History ICD Code high blood pressure type II diabetes major depressive disorder Surgical History Surgery Date(Month/Year) hernia x2 back surgery appendectomy neck surgery foot of colon removed Hospitalization History Reason Date(Month/Year) see surgical
--- OUTSIDE RECORDS SUMMARY | 2025-04-18 08:49 | XMS_ITS | Clinical Summary ---
Author Organization [facility] Address [address] [place], [place] [id number] Care Team Providers Care Mock Up Builder Name Role Phone Unavailable Primary Care Provider Unavailabl e Allergies No known active allergies Medications busPIRone HCl 30 mg tablet TAKE 1 TABLET BY MOUTH THREE TIMES DAILY FOR ANXIETY 03/13/2023 Active celecoxib (CELEBREX) 200 mg capsule take 1 capsule by mouth twice a day Oral for 28 Days 04/20/2019 Active DULoxetine (CYMBALTA) 60 mg capsule 1 capsule q 12 HR. 04/20/2019 Active gabapentin (NEURONTIN) 600 mg tablet Take 1 capsule by mouth. 04/20/2019 Active metFORMIN (GLUCOPHAGE) 1,000 mg tablet Take 1,000 mg by mouth. 04/20/2019 Active empagliflozin (JARDIANCE) 10 mg tablet Take 10 mg by mouth. Active insulin lispro (HUMALOG KWIKPEN) 100 unit/mL Inject subcutaneousl y. 01/24/2020 Active lisinopril-hydr oCHLOROthiazide (ZESTORETIC) 10-12.5 mg per tablet 1 (one) time each day at the same time. 04/03/2021 Active cyclobenzaprine (FLEXERIL) 10 mg tablet Take 10 mg by mouth three times daily. 02/07/2023 Active hydrOXYzine pamoate (VISTARIL) 25 mg capsule TAKE 1 TO 2 CAPSULES BY MOUTH EVERY 6 HOURS NEEDED FOR ANXIETY 01/30/2023 Active Active Problems No known active problems Social History Tobacco Use Types Packs/Day Years Used Date Smoking Tobacco: Former Cigarettes Smokeless Tobacco: Never Tobacco Cessation:Counseling Given: Not Answered Alcohol Use Standard Drinks/Week Comments Yes 0 (1 standard drink = 0.6 oz pur e alcohol) social Sex and Gender Information Value Date Recorded Sex Assigned at Not on file Legal Sex Male 9:45 AM EST Gender Identity Not on file Sexual Orientation Not on file Last Filed Vital Signs Vital Sign Reading Time Taken Comments Blood Pressure - - Pulse 88 03/26/2023 11:26 AM EDT Temperature - - Respiratory Rate 17 03/26/2023 11:26 AM EDT Oxygen Saturation 98% 03/26/2023 11:26 AM EDT Inhaled Oxygen Concentration - - Weight - - Height - - Body Mass Index - - Plan of Treatment Health Maintenance Due Date Last Done Comments Abdominal Aortic Aneurysm Screening 1958 Anxiety Screening 1976 Depression Screening 1976 Hepatitis C Screening [address] Colonography 2003 Cologuard (FIT-DNA) 2003 Colonoscopy 2003 Colorectal Cancer Screening 2003 Fecal Occult Blood 2003 Prostate Cancer Screening Discussion 2003 Sigmoidoscopy 2003 Shingrix Vaccine (1 of 2) 2008 RSV Vaccine (1 - Risk 60-74 years 1-dose series) 2018 Pneumococcal Vaccine: 50+ (2 of 2 - PCV) 08/09/2020 08/09/2019, 10/14/2009 Covid-19 Vaccine (3 - 2023-2 5 season) 2024 11/09/2021, 01/04/2021 Advance Directive Discussion 10/27/2024 Medicare Advantage Annual We llness Visit 10/27/2024 Influenza Vaccine (Season Ended) 2025 10/16/2021, 07/27/2020, 08/16/2019, Additional history exists Diabetes Screening 03/26/2026 03/26/2023 DTaP,Tdap,Td Vaccine (2 - Td or Tdap) 11/11/2029 11/11/2019 Procedures Procedure Name Priority Date/Time Associated Diagnosis Comments COMPREHENSIVE METABOLIC PANEL Routine 03/26/2023 12:17 PM EDT History of alcohol abuse Laryngeal candidiasis from Last 3 Months or Most Recently Relevant to Health Maintenance Results * (ABNORMAL) COMP METABOLIC PANEL (03/26/2023 12:17 PM EDT) Protein, Total 7.0 6.3 - 8.0 g/dL 03/27/2023 4:43 AM [facility] Albumin 4.4 3.9 - 4.9 g/dL 03/27/2023 4:43 AM [facility] Calcium, Total 9.6 8.5 - 10.2 mg/dL 03/27/2023 4:43 AM [facility] Bilirubin, Total 0.4 0.2 - 1.3 mg/dL 03/27/2023 4:43 AM [facility] Alkaline Phosphatase 90 38 - 113 U/L 03/27/2023 4:43 AM [facility] AST 23 14 - 40 U/L 03/27/2023 4:43 AM [facility] ALT 22 10 - 54 U/L 03/27/2023 4:43 AM [facility] Glucose 85 74 - 99 mg/dL 03/27/2023 4:43 AM [facility] Comment: The [place] Diabetes Association (ADA) provides guidance for cutoff [...] Standards of Medical Care in Diabetes 2016, [place] Diabetes Association. Diabetes Care. 2016.39(Suppl 1). BUN 25(H) 9 - 24 mg/dL 03/27/2023 4:43 AM [facility] Creatinine 0.99 0.73 - 1.22 mg/dL 03/27/2023 4:43 AM [facility] Sodium 135(L) 136 - 144 mmol/L 03/27/2023 4:43 AM [facility] Potassium 4.5 3.7 - 5.1 mmol/L 03/27/2023 4:43 AM EDT [facility] Chloride 97 97 - 105 mmol/L 03/27/2023 4:43 AM EDT [facility] CO2 27 22 - 30 mmol/L 03/27/2023 4:43 AM EDT [facility] Anion Gap 11 9 - 18 mmol/L 03/27/2023 4:43 AM EDT [facility] Estimated Glomerular Filtration Rate 85 >=60 mL/min/1.7 3m 03/27/2023 4:43 AM EDT [facility] Comment:Estimated Glomerular Filtration Rate (eGFR) is calculated using the 2020 CKD-EPI creatinine equation. This equation utilizes serum creatinine, sex, and age as parameters. The creatinine assay has traceable calibration to isotope dilution- mass spectrometry. Refer to KDIGO guidelines for clinical interpretation. In patients with unstable renal function, e.g. those with acute kidney injury, the eGFR may not accurately reflect actual GFR. Blood BLOOD SPECIMEN / Unknown Venipuncture / Unknown 03/26/2023 12:17 PM EDT 03/26/2023 12:18 PM EDT us Azucena Arrington CNC MILLING MACHINE OPERATOR.[facility] Final Result [facility] [address] [phone], from Last 3 Months or Most Recently Relevant to Health Maintenance Insurance [employer] MEDICARE
--- OUTSIDE RECORDS SUMMARY | 2025-04-18 08:49 | XMS_ITS | Encounter Summary ---
Author Organization [facility] Address [address] [place] [address] Care Team Providers Care Wooden Furniture Polisher Name Role Phone Andre Gary Primary Care Provider [phone] Oliver Kerr MD Unavailable Unavailable Encounter Details Date Type Department Care Team (Late st Contact Info) Description 11/01/2024 Abstract [facility] [address] [place] [address] Bonny Patterson, [facility] [address] [place] [address] Social History Tobacco Use Types Packs/Day Years [...] week 10/07/2023 How often do you attend scientology or yarsanism serv ices? Never 10/07/2023 Do you belong to any clubs o r organizations such as scientology groups, unions, fraternal or athletic groups, or [...] Recorded Patient Health Questionnaire-2 Score 0 10/15/2024 [facility] - Occupational Stress Questionnaire Answer Date Recorded [...] place to sleep or slept in a longterm (including now)? Patient refused 10/07/2023 Sex and [...] [facility] [address] [facility] [address] [place] [address] Lisbet Brewster DO [address] [place] [address] 04/27/2025 10:30 AM EDT Office Visit [facility] [address] [facility] [address] [place] [address] Emmett Becker MD 7[address] [facility] [address] [place] [address] documented as of this encounter Visit Diagnoses Not on filedocumented in this encounter Care Teams Wooden Furniture Polisher Relationship Specialty Start Date End Date Andre Gary [address] [place] [address] PCP - General Family Medicine 03/27/23 Oliver Kerr MD [address] [place] [address] Referring Physician Neurology 10/27/23 documented as of this encounter
--- OUTSIDE RECORDS SUMMARY | 2025-04-18 08:49 | XMS_ITS | Encounter Summary ---
Author Organization [facility] Address [address] [place] [address] Care Team Providers Care Airplane Flight Attendant Supervisor Name Role Phone Andre Gary Primary Care Provider [phone] Oliver Kerr MD Unavailable Unavailable Encounter Details Date Type Department Care Team (Late st Contact Info) Description 03/18/2024 Orders Only [facility] [address] [phone] Lisbet Brewster, DO [address] [address] Social History Tobacco Use Types Packs/Day Years [...] week 10/07/2023 How often do you attend oriental orthodox or rastafari serv ices? Never 10/07/2023 Do you belong to any clubs o r organizations such as oriental orthodox groups, unions, fraternal or athletic groups, or [...] Recorded Patient Health Questionnaire-2 Score 0 07/01/2023 [facility] - Occupational Stress [...] place to sleep or slept in a fpc (including now)? Patient refused 10/07/2023 Sex and [...] [facility] [address] [facility] [address] [place] [address] Lisbet Brewster DO [address] [place] [address] 04/27/2025 10:30 AM EDT Office Visit [facility] [address] [facility] [address] [place] [address] Emmett Becker MD 703 [facility] [address] [place] [address] documented as of this encounter Procedures Procedure Name Priority Date/Time Associated Diagnosis Comments DIABETIC RETINOPATHY SCREENING - OU - BOTH EYES Routine 03/18/2024 10:23 AM EDT documented in this encounter Results * Diabetic Retinopathy Screening - OU - Both Eyes (03/18/2024 10:23 AM EDT) Anatomical Region Laterality Modality Head Other us Lisbet Brewster DO OPH[employer]OTOGRAPHY Final Re sult documented in this encounter Visit Diagnoses Not on filedocumented in this encounter Care Teams Airplane Flight Attendant Supervisor Relationship Specialty Start Date End Date Andre Gary [address] [place] [address] PCP - General Family Medicine 03/27/23 Oliver Kerr MD [address] [place] [address] Referring Physician Neurology 10/27/23 documented as of this encounter
--- OUTSIDE RECORDS SUMMARY | 2025-04-18 08:49 | XMS_ITS | Encounter Summary ---
Author Organization [facility] Address [address] [place] [address] Care Team Providers Care Access Rep Name Role Phone Andre Gary Primary Care Provider [phone] Oliver Kerr MD Unavailable Unavailable Encounter Details Date Type Department Care Team (Late Contact Info) Description 08/28/2023 Abstract [facility] [address] [phone] Lisbet Brewster M, DO [address] [address] Social History Tobacco Use Types Packs/Day Years [...] suspected to have Coronavirus/COVID-19? No / Unsure 08/19/2023 11:54 AM EDT documented as of this encounter Plan of Treatment Upcoming Encounters Date Type Department Care Team (Late st Contact Info) Description 04/18/2025 11:15 AM EDT Office Visit [facility] [address] [place] [address] Lisbet Brewster, [address] [place] [address] 04/27/2025 10:30 AM EDT Office Visit [facility] [address] [facility] 150 [place] [id number] Emmett Becker MD 703 [facility] [address] [phone] documented as of this encounter Visit Diagnoses Not on filedocumented in this encounter Care Teams Access Rep Relationship Specialty Start Date End Date Andre Gary [address] [place] [address] PCP - General Family Medicine 03/27/23 Oliver Kerr MD [address] [place] [address] Referring Physician Neurology 10/27/23 documented as of this encounter
--- OUTSIDE RECORDS SUMMARY | 2025-04-18 08:49 | XMS_ITS | Encounter Summary ---
Author Organization [facility] Address [address] [place] [address] Care Team Providers Care Manufacturing Systems Engineer Name Role Phone Lisbet Brewster DO Unavailable [phone] Andre Gary Primary Care Provider [phone] Oliver Kerr MD Unavailable Unavailable Encounter Details Date Type Department Care Team (Late Contact Info) Description 03/28/2023 Orders Only [facility] [address] [facility] 230 [place] [address] Lisbet Brewster, DO [address] [facility] 230 [place] [address] Social History Tobacco Use Types Packs/Day Years Used Date Smoking Tobacco: Former Cigarettes Q uit: 10/27/2017 Smokeless Tobacco: Never Comments:Quit smoking 5-10 y ears ago Alcohol Use Standard Drinks/Week Comments Never 0 (1 standard drink = 0.6 oz pur e alcohol) coffee 4 cups per day AUDIT-C Answer Date [...] Date Recorded Patient Health Questionnaire-2 Score 0 03/26/2023 Sex and Gender Information Value Date Recorded [...] [address] [facility] [address] [place] [address] Lisbet Brewster DO [address] [place] [address] 04/27/2025 10:30 AM EDT Office Visit [facility] [address] [facility] 150 [place] [id number] Emmett Becker MD 703 [facility] 150 [place] [address] documented as of this encounter Procedures Procedure Name Priority Date/Time Associated Diagnosis Comments IP CONSULT TO OPHTHALMOLOGY Routine 03/17/2023 3:14 PM EDT documented in this encounter Results * Inpatient consult to Ophthalmology (03/17/2023 3:14 PM EDT) Lisbet Brewster DO INPATIENT CONSULT ORDERABL ES Final Result documented in this encounter Visit Diagnoses Not on filedocumented in this encounter Care Teams Manufacturing Systems Engineer Relationship Specialty Start Date End Date Lisbet Brewster DO [address] [facility] 230 [place] [address] PCP - [employer] 10/27/22 06/26/23 Andre Gary [address] [facility] [place] [address] PCP - General Family Medicine 03/27/23 Oliver Kerr MD [facility] [facility] [place] [address] Referring Physician Neurology 10/27/23 documented as of this encounter
--- OUTSIDE RECORDS SUMMARY | 2025-04-18 08:49 | XMS_ITS | Encounter Summary ---
Author Organization [facility] Address [address] [place] [address] Care Team Providers Care Computer Language Coder Name Role Phone Andre Gary Primary Care Provider [phone] Oliver Kerr MD Unavailable Unavailable Encounter Details Date Type Department Care Team (Latest Contact Info) Description 04/13/2025 Travel Social History Tobacco Use Types Packs/Day Years [...] week 10/07/2023 How often do you attend restorationism or hinduism serv ices? Never 10/07/2023 Do you belong to any clubs o r organizations such as restorationism groups, unions, fraternal or athletic groups, or [...] Recorded Patient Health Questionnaire-2 Score 0 10/15/2024 [facility] - Occupational Stress [...] place to sleep or slept in a senior care (including now)? Patient refused 10/07/2023 Sex and [...] [facility] [address] [facility] 230 [place] [address] Lisbet Brewster, [address] [facility] 230 [place] [address] 04/27/2025 10:30 AM EDT Office Visit [facility] [address] [facility] 150 [place] [phone] Emmett Becker MD 703 [facility] 150 [place] [address] documented as of this encounter Visit Diagnoses Not on filedocumented in this encounter Care Teams Computer Language Coder Relationship Specialty Start Date End Date Andre Gary [address] [facility] [place] [address] PCP - General Family Medicine 03/27/23 Oliver Kerr MD [address] [place] [address] Referring Physician Neurology 10/27/23 documented as of this encounter
--- OUTSIDE RECORDS SUMMARY | 2025-04-18 08:49 | XMS_ITS | Encounter Summary ---
Author Organization [facility] Address [address] [place] [address] Phone Care Team Providers Care Movie Machine Operator Name Role Phone Andre Gary DO Primary Care Provider [phone] Krys Limon RN Unavailable Unavailable Encounter Details Date Type Department Care Team (Late st Contact Info) Description 03/31/2024 Scanned Document [facility] [address] [place] [address] [place] [address] Department of Neurological Surgery [place], [place] [address] Social History Tobacco Use Types Packs/Day Years Used Date Smoking Tobacco: Never Smokeless Tobacco: Never Sex and Gender Information Value Date Recorded Sex Assigned at Not on file Legal Sex Male 5:23 PM EST Gender Identity Not on file Sexual Orientation Not on file COVID-19 Exposure Response Date Recorded In the last 10 days, have yo u been in contact with someone who was confirmed or suspected to have Coronavirus/COVID-19? No / Unsure 04/01/2024 8:53 AM EDT documented as of this encounter Plan of Treatment Not on file documented as of this encounter Visit Diagnoses Not on filedocumented in this encounter Care Teams Movie Machine Operator Relationship Specialty Start Date End Date Andre Gary DO [address] [place] [place] [address] PCP - General Family Medicine 04/01/24 Krys Limon, RN Nurse Navigator Spine Surgery 05/24/24 08/25/24 documented as of this encounter
--- OUTSIDE RECORDS SUMMARY | 2025-04-18 08:49 | XMS_ITS | Encounter Summary ---
Author Organization [facility] Address [address] [place] [address] Phone Care Team Providers Care Nutrition Professor Name Role Phone Andre Gary DO Primary Care Provider [phone] Krys Limon RN Unavailable Unavailable Encounter Details Date Type Department Care Team (Late st Contact Info) Description 11/19/2023 Scanned Document [facility] [place] [facility] [address] [place] [address] [place] [address] Department of Neurological Surgery [place], [place] [id number] Social History Tobacco Use Types Packs/Day Years [...] suspected to have Coronavirus/COVID-19? No / Unsure 11/11/2023 10:22 AM EST documented as of this encounter Plan of Treatment Not on file documented as of this encounter Visit Diagnoses Not on filedocumented in this encounter Care Teams Nutrition Professor Relationship Specialty Start Date End Date Andre Gary DO [address] [place] [address] PCP - General Family Medicine 04/01/24 Krys Limon, RN Nurse Navigator Spine Surgery 05/24/24 08/25/24 documented as of this encounter
--- OUTSIDE RECORDS SUMMARY | 2025-04-18 08:49 | XMS_ITS | Encounter Summary ---
Author Organization [facility] Address [address] [place] [address] Care Team Providers Care Transmission Builder Name Role Phone Andre Gary Primary Care Provider [phone] Oliver Kerr MD Unavailable Unavailable Encounter Details Date Type Department Care Team (Late st Contact Info) Description 04/12/2024 Abstract [facility] [address] [facility] 230 [place] [address] Lisbet Brewster M, DO [address] [address] Social History Tobacco Use Types Packs/Day Years Used Date Smoking Tobacco: Former Cigarettes Q uit: 10/27/2017 Smokeless Tobacco: Never Alcohol Use Standard Drinks/Week Comments Never 0 [...] week 10/07/2023 How often do you attend scientologist or anglican serv ices? Never 10/07/2023 Do you belong to any clubs o r organizations such as scientologist groups, unions, fraternal or athletic groups, or [...] Recorded Patient Health Questionnaire-2 Score 0 07/01/2023 [facility] - Occupational Stress [...] place to sleep or slept in a nursing home (including now)? Patient refused 10/07/2023 Sex and [...] [facility] [address] [facility] 230 [place] [phone] Lisbet Brewster DO [address] [place] [address] 04/27/2025 10:30 AM EDT Office Visit [facility] [address] [facility] 150 [place] [address] Emmett Becker MD 703 [facility] [address] [place] [address] documented as of this encounter Visit Diagnoses Not on filedocumented in this encounter Care Teams Transmission Builder Relationship Specialty Start Date End Date Andre Gary [address] [place] [address] PCP - General Family Medicine 03/27/23 Oliver Kerr MD [address] [place] [address] Referring Physician Neurology 10/27/23 documented as of this encounter
--- OUTSIDE RECORDS SUMMARY | 2025-04-18 08:49 | XMS_ITS | Clinical Summary ---
Author Organization [facility] Address [address] [place] [address] Care Team Providers Care Leadership Program Intern Name Role Phone Andre Gary Primary Care Provider [phone] Oliver Kerr MD Unavailable Unavailable Allergies No known active allergies Medications atorvastatin (Lipitor) 40 MG tablet 1 (one) time each day at the same time Active busPIRone (Buspar) 30 MG tablet in the morning and in the evening and before bedtime. Active DULoxetine (Cymbalta) [address] capsule 1 capsule every 12 (twelve) hours Active gabapentin (Neurontin) 600 MG tablet Take 2 capsules by mouth in the morning and 2 capsules in the evening and 2 capsules before bedtime. Active hydrOXYzine pamoate (Vistaril) 25 MG capsule 1 (one) time each day at the same time prn Active lisinopril-hydroCH LOROthiazide 20-12.5 MG tablet 1 (one) time each day at the same time Active cyclobenzaprine (Flexeril) 10 MG tablet Take 10 mg by mouth in the morning and 10 mg in the evening and 10 mg before bedtime. 02/08/20 23 Active UltiCare Alcohol Swabs 70 % pads 08/14/20 23 Active famotidine (Pepcid) 20 MG tabletIndications: LPRD (laryngopharyngeal reflux disease) Take 1 tablet (20 mg) by mouth at bedtime 90 tablet 04/21/20 24 Active rOPINIRole (Requip) 1 MG tablet Take 1 mg by mouth Daily Active B-D UF III MINI PEN NEEDLES 31G X 5 MM [facility] 06/09/20 24 Active Respiratory Therapy Supplies (CareTouch Univers CPAP Filter) [facility] 07/06/20 24 Active acetaminophen (Tylenol) 325 MG tablet 05/25/20 24 Active escitalopram (Lexapro) 10 MG tablet 1 (one) time each day at the same time 08/26/20 24 Active mirtazapine (Remeron) 15 MG tablet 1 (one) time each day at the same time 07/28/20 24 Active pantoprazole (ProtoNix) 40 MG EC tablet 07/06/20 24 Active omeprazole (PriLOSEC) [address] capsule Active ondansetron ODT (Zofran-ODT) 8 MG disintegrating tablet 01/04/20 25 Active Insulin Degludec FlexTouch 200 UNIT/ML solution pen-injectorIndica tions:Type 2 diabetes mellitus with diabetic neuropathy, with long-term current use of insulin ([facility]) Inject 50 Units under the skin in the morning. 30 mL 01/17/20 25 026 Active insulin aspart (NovoLOG FLEXPEN) 100 UNIT/ML penIndications:Typ e 2 diabetes mellitus with diabetic neuropathy, with long-term current use of insulin ([facility]) 10 units qA plus correction 2:30 > 150 mg/dl (max daily 50 units) 45 mL 01/17/20 25 Active Tirzepatide (Mounjaro) 2.5 MG/0.5ML solution auto-injectorIndic ations:Type 2 diabetes mellitus with diabetic neuropathy, with long-term current use of insulin ([facility]) Inject 2.5 mg under the skin 1 (one) time per week 2 mL 01/17/20 25 Active metFORMIN (Glucophage) 1000 MG tabletIndications: Type 2 diabetes mellitus with diabetic neuropathy, with long-term current use of insulin ([facility]) Take 1 tablet (1,000 mg) by mouth in the morning and 1 tablet (1,000 mg) in the evening. Take with meals. 180 tablet 02/05/20 25 026 Active empagliflozin (Jardiance) 10 MGIndications:Type 2 diabetes mellitus with diabetic neuropathy, with long-term current use of insulin ([facility]) Take 1 tablet (10 mg) by mouth 1 (one) time each day at the same time. 90 tablet 3 07/01/20 23 025 Discontinu ed(Therapy completed) celecoxib (CeleBREX) 200 MG capsuleIndications :Left shoulder pain, unspecified chronicity Take 1 capsule (200 mg) by mouth Daily 30 capsule 2 01/12/20 25 025 Active Problems Problem Noted Date Diagnosed Date Left lower quadrant abdominal pain 04/13/2025 Idiopathic scoliosis in adult patient 09/10/2024 Asthma 07/09/2024 GERD (gastroesophageal reflux disease) Obstructive sleep apnea 07/09/2024 Memory loss 06/08/2024 Essential tremor 06/08/2024 Chronic insomnia 06/08/2024 Generalized anxiety disorder 06/08/2024 Muscle spasm of back 02/25/2024 Incidental pulmonary nodule 02/25/2024 Heart palpitations 02/25/2024 Unilateral inguinal hernia without obstruction o r gangrene 11/10/2023 Incisional hernia, without obstruction or gangre ne 11/10/2023 History of fusion of cervical spine 09/26/2023 Central stenosis of spinal canal 09/26/2023 Anxiety 02/28/2023 Arthropathy of left shoulder 02/28/2023 Constipation 02/28/2023 Flank pain 02/28/2023 Hyperlipidemia 02/28/2023 Hypertension 02/28/2023 Other acute postprocedural pain 02/28/2023 Lumbago with sciatica, left side 02/28/2023 Lumbago with sciatica, right side 02/28/2023 Major depressive disorder, single episode, unspe cified 02/28/2023 Chronic bilateral low back pain with right-sided sciatica 02/28/2023 Primary localized osteoarthrosis of shoulder reg ion 02/28/2023 Class 2 severe obesity due t o excess calories with serious comorbidity and body mass index (BMI) of 35.0 to 35.9 in adult 02/28/2023 Bulging lumbar disc 02/28/2023 Degeneration of intervertebral disc of lumbar re gion 02/28/2023 Spinal stenosis of lumbar re gion without neurogenic claudication 02/28/2023 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 Encouraged to check blood glucose throughout the day with some fasting and some PP readings. They are to bring their glucose meter/cgm in to all appointments. All of the patients questions, treatment options, and current care plan and goals were discussed. A copy of this along with pertinent instructions were given to the patient at the end of the appointment. The patient voices understanding of all of this and is to call in between appointments if they have any problems or questions. Koko Hernandez is struggling to gain control of their diabetes. I am very concerned for diabetes related complications. , The patient is wearing their cgm on a daily basis and making decisions in regards to adjusting insulin daily as well for at least the last 60 days , Instructed on the importance of taking insulin before eating. If it has been more than 30-45 min since eating they should not give the meal dose but should just give a correction insulin dose. , Instructed on the proper insulin injection technique either in the abdomen, upper outer thigh, or back of the arm. They are to rotate injection sites to prevent scar tissue. , Instructions given today include: Insulin instructions and Dietary education. Will work on getting him back on his medications. Gave samples of farxiga to use (instead of jardiance as that is what I had) and will try mounjaro at 2.5 mg weekly with samples and then see if insurance will cover it he tolerates this. We are not able to get mounjaro through patient assistance though. He will not be able to have shoulder surgery at this time due to poor glucose control. If he is able to get his numbers down then we can reconsider this if that is what he wants. Assessment & Plan (10/15/2024 12:31 PM EST): During the appointment today all pertinent labs, imaging, health maintenance, and glucose readings were reviewed. Encouraged to check blood glucose throughout the day with some fasting and some PP readings. They are to bring their glucose meter/cgm in to all appointments. All of the patients questions, treatment options, and current care plan and goals were discussed. A copy of this along with pertinent instructions were given to the patient at the end of the appointment. The patient voices understanding of all of this and is to call in between appointments if they have any problems or questions. Koko Hernandez is making improvements and encouraged on this. , Will stay on current medications. , The patient is wearing their cgm on a daily basis and making decisions in regards to adjusting insulin daily as well for at least the last 60 days , Instructions given today include: Hypoglycemia management and Insulin instructions Assessment & Plan (08/29/2024 1:50 PM EST): During the appointment today all pertinent labs, imaging, health maintenance, and glucose readings were reviewed. Encouraged to check blood glucose throughout the day with some fasting and some PP readings. They are to bring their glucose meter/cgm in to all appointments. All of the patients questions, treatment options, and current care plan and goals were discussed. A copy of this along with pertinent instructions were given to the patient at the end of the appointment. The patient voices understanding of all of this and is to call in between appointments if they have any problems or questions. Koko Hernandez is struggling to gain control of their diabetes. I am very concerned for diabetes related complications. , The patient is wearing their cgm on a daily basis and making decisions in regards to adjusting insulin daily as well for at least the last 60 days , Discussed dietary changes at length. Encouraged to limit simple carbs and focus more on healthy protein/fat with all meals and snacks. They should also avoid any sugary drinks. , Instructed on the importance of taking insulin before eating. If it has been more than 30-45 min since eating they should not give the meal dose but should just give a correction insulin dose. , Instructed on the proper insulin injection technique either in the abdomen, upper outer thigh, or back of the arm. They are to rotate injection sites to prevent scar tissue. , Instructions given today include: Insulin instructions and Dietary education. He needs to work on consistency with diet and medications. He needs to limit portion sizes on simple carbs and make sure he is getting his insulin before he eats. Will decrease insulin for breakfast and dinner. Will start ozempic. GLP-1 and GLP-1/GIP agonist: Instructed on injection technique and the use of the medication. Pt has no hx of pancreatitis or fmh of mtc. Pt is to call if any significant vomiting, diarrhea, or reflux. Assessment & Plan (07/11/2024 10:39 AM EDT): During the appointment today all pertinent labs, imaging, health maintenance, and glucose readings were reviewed. Encouraged to check blood glucose throughout the day with some fasting and some PP readings. They are to bring their glucose meter/cgm in to all appointments. All of the patients questions, treatment options, and current care plan and goals were discussed. A copy of this along with pertinent instructions were given to the patient at the end of the appointment. The patient voices understanding of all of this and is to call in between appointments if they have any problems or questions. Koko Hernandez is making improvements and encouraged on this. , The patient is wearing their cgm on a daily basis and making decisions in regards to adjusting insulin daily as well for at least the last 60 days , Discussed dietary changes at length. Encouraged to limit simple carbs and focus more on healthy protein/fat with all meals and snacks. They should also avoid any sugary drinks. , Instructions given today include: Insulin instructions and Dietary education. Increase insulin at breakfast and decrease at dinner. Assessment & Plan (04/10/2024 5:10 PM EDT): During the appointment today all pertinent labs, imaging, health maintenance, and glucose readings were reviewed. Encouraged to check blood glucose throughout the day with some fasting and some PP readings. They are to bring their glucose meter/cgm in to all appointments. All of the patients questions, treatment options, and current care plan and goals were discussed. A copy of this along with pertinent instructions were given to the patient at the end of the appointment. The patient voices understanding of all of this and is to call in between appointments if they have any problems or questions. Koko Hernandez blood sugars are worsening. , The patient is wearing their cgm on a daily basis and making decisions in regards to adjusting insulin daily as well for at least the last 60 days , Discussed dietary changes at length. Encouraged to limit simple carbs and focus more on healthy protein/fat with all meals and snacks. They should also avoid any sugary drinks. , Instructed on the importance of taking insulin before eating. If it has been more than 30-45 min since eating they should not give the meal dose but should just give a correction insulin dose. , Instructed on the proper insulin injection technique either in the abdomen, upper outer thigh, or back of the arm. They are to rotate injection sites to prevent scar tissue. , Instructions given today include: Hypoglycemia management, Insulin instructions, and Dietary education. Will decrease tresiba to help prevent low bg in the afternoon. He is to make sure he is taking insulin with his meals and not give too much correction insulin as I suspect that some of his spikes are reactive after having hypoglycemia. He needs to pay attention to his bg spikes and try to figure out what is causing them. Assessment & Plan (01/08/2024 1:52 PM EDT): During the appointment today all pertinent labs, imaging, health maintenance, and glucose readings were reviewed. Encouraged to check blood glucose throughout the day with some fasting and some PP readings. They are to bring their glucose meter/cgm in to all appointments. All of the patients questions, treatment options, and current care plan and goals were discussed. A copy of this along with pertinent instructions were given to the patient at the end of the appointment. The patient voices understanding of all of this and is to call in between appointments if they have any problems or questions. Koko Hernandez is struggling to gain control of their diabetes. I am very concerned for diabetes related complications. , The patient is wearing their cgm on a daily basis and making decisions in regards to adjusting insulin daily as well for at least the last 60 days , Discussed dietary changes at length. Encouraged to limit simple carbs and focus more on healthy protein/fat with all meals and snacks. They should also avoid any sugary drinks. , Instructed on the importance of taking insulin before eating. If it has been more than 30-45 min since eating they should not give the meal dose but should just give a correction insulin dose. , Instructions given today include: Insulin instructions and Dietary education. Will increase tresiba. He is to continue working on improving his diet. Assessment & Plan (10/09/2023 3:30 PM EST): During the appointment today all pertinent labs, imaging, health maintenance, and glucose readings were reviewed. Encouraged to check blood glucose throughout the day with some fasting and some PP readings. They are to bring their glucose meter/cgm in to all appointments. All of the patients questions, treatment options, and current care plan and goals were discussed. A copy of this along with pertinent instructions were given to the patient at the end of the appointment. The patient voices understanding of all of this and is to call in between appointments if they have any problems or questions. Koko Hernandez is struggling to gain control of their diabetes. I am very concerned for diabetes related complications. , The patient is wearing their cgm on a daily basis and making decisions in regards to adjusting insulin daily as well for at least the last 60 days , Discussed dietary changes at length. Encouraged to limit simple carbs and focus more on healthy protein/fat with all meals and snacks. They should also avoid any sugary drinks. , Instructions given today include: Insulin instructions and Dietary education. He really should be eating more consistently throughout the day but he is not willing to change this. Discussed taking insulin for his snacks if they are not protein snacks. Try to limit potatoes when he does eat out for breakfast. Increase insulin. Assessment & Plan (07/01/2023 10:56 AM EDT): During the appointment today all pertinent labs, imaging, health maintenance, and glucose readings were reviewed. Encouraged to check blood glucose throughout the day with some fasting and some PP readings. They are to bring their glucose meter/cgm in to all appointments. All of the patients questions, treatment options, and current care plan and goals were discussed. A copy of this along with pertinent instructions were given to the patient at the end of the appointment. The patient voices understanding of all of this and is to call in between appointments if they have any problems or questions. Koko Hernandez is struggling to gain control of their diabetes. I am very concerned for diabetes related complications. , The patient is wearing their cgm on a daily basis and making decisions in regards to adjusting insulin daily as well for at least the last 60 days , Discussed dietary changes at length. Encouraged to limit simple carbs and focus more on healthy protein/fat with all meals and snacks. They should also avoid any sugary drinks. , Instructions given today include: Insulin instructions and Dietary education. He is to work on eating something at breakfast and taking insulin to help prevent hepatic glucose production during the day. Type 2 diabetes mellitus with hyperglycemia 02/2023 Displacement of lumbar inter vertebral disc without myelopathy 12/22/2018 [facility] current use of insulin 04/24/2017 Resolved Problems Problem Noted Date Diagnosed Date Resolved Date BMI 35.0-35.9,adult 11/10/2023 07/09/20 Class 2 obesity 02/28/2023 03/27/2023 Obesity 02/28/2023 03/27/2023 Type 2 diabetes mellitus wit hout complications 02/28/2023 03/27/2023 Diabetes 04/10/2021 03/27/2023 Encounters Date Type Department Care Team Description 04/18/2025 11:15 AM EDT Office Visit [facility] [address] [place] [phone] Lisbet Brewster, DO 04/13/2025 10:30 AM EDT Office Visit [facility] [address] [place] [phone] Emmett Becker MD Left lower quadrant abdominal pain (Primary Dx); Abdominal wall pain 04/13/2025 Travel 03/24/2025 Travel 02/03/2025 Refill [facility] [address] [place] [phone] Lisbet Brewster, Type 2 diabetes mellitus with diabetic neuropathy, with long-term current use of insulin ([facility]) 01/31/2025 Telephone [facility] [address] [place] [phone] Kika Phillips RN 01/28/2025 Orders Only [facility] [address] [place] [address] Afia Brennan ARRT Left shoulder pain, unspecified chronicity 01/26/2025 Telephone [facility] [address] [place] [phone] Lisbet Brewster, Medication Question 01/18/2025 Telephone [facility] [address] [place] [address] Alyssa Rees LPN Mounjaro PA approval from Last 3 Months Immunizations Immunization Administration Dates Next Due Influenza, injectable, quadrivalent 10/16/2021,1 11/08/2017 Influenza, injectable, quadr ivalent, preservative free 08/09/2019 Influenza, recombinant, quad rivalent, injectable, preservative free 08/18/2020 Influenza, seasonal, injectable 07/27/2020 Influenza, seasonal, injecta ble, preservative free 07/27/2020,08/16/2019 Dereck SARS-CoV-2 01/03/2021 Pneumococcal Polysaccharide PPSV23 08/09/2019,,10/14/2009 Tdap 11/11/2019 Family History Medical History Relation Name Comments No Known Problems Brother 2 No Known Problems Daughter 2 Cancer Father Nader Hypertension Father Nader Diabetes Mother Lilian Heart disease Mother Lilian Stroke Mother Lilian Diabetes Sibling Heart disease Sibling Relation Name Status Comments Brother x2 Daughter Alive x2 Father Nader Mother Lilian Other Spouse Alive Sibling Alive Son Alive x2 Social History Tobacco Use Types Packs/Day Years Used Date Smoking Tobacco: Former Cigarettes Q uit: 10/27/2017 Smokeless Tobacco: Never Tobacco Cessation:Counseling Given: Not [...] week 10/07/2023 How often do you attend christianity or advent serv ices? Never 10/07/2023 Do you belong to any clubs o r organizations such as christianity groups, unions, fraternal or athletic groups, or [...] Recorded Patient Health Questionnaire-2 Score 0 10/15/2024 [facility] - Occupational Stress Questionnaire Answer Date [...] place to sleep or slept in a assisted (including now)? Patient refused 10/07/2023 Sex and Gender Information Value Date Recorded Sex Assigned at Not on file Legal Sex Male 6:37 PM EDT Gender Identity Not on file Sexual Orientation Not on file Last Filed Vital Signs Vital Sign Reading Time Taken Comments Blood Pressure 120/72 04/13/2025 10:16 AM EDT Pulse 88 01/14/2025 8:39 AM EDT Temperature 35.7 C (96.3 F) 01/14/2025 8:39 AM EDT Respiratory Rate - - Oxygen Saturation 98% 01/14/2025 8:39 AM EDT Inhaled Oxygen Concentration - - Weight 102 kg (225 lb) 04/13/2025 10:16 AM EDT Height 167.6 cm (5' 6 ) 04/13/2025 10:16 AM EDT Body Mass Index 36.32 04/13/2025 10:16 AM EDT Plan of Treatment Upcoming Encounters Date Type Department Care Team (Late st Contact Info) Description 04/18/2025 11:15 AM EDT Office Visit [facility] [address] [place] [phone] Lisbet Brewster DO [address] [place] [address] 04/27/2025 10:30 AM EDT Office Visit [facility] [address] [phone] Emmett Becker MD [address] [address] Health Maintenance Due Date Last Done Comments CT Colonography 1958 FIT-DNA 1958 FIT 1958 FOBT 1960 Sigmoidoscopy 1960 Pneumococcal Vaccine: 65+ Ye ars (2 of 2 - PCV) 08/09/2020 08/09/2019, 08/08/2019, 10/14/2009 Influenza Vaccine (Season Ended) 2025 10/16/2021, 08/18/2020, 07/27/2020, Additional history exists Colonoscopy 07/31/2031 07/31/2021, 07/31/2021 Colorectal Cancer Screening 07/31/2031 Medical Devices Implanted Type Area Bus Starter Device Identifier Shelf Expiration Date Model / Serial / Lot Stimulator Stimulator N/A: Spine Lumbar Procedures Procedure Name Priority Date/Time Associated Diagnosis Comments COLONOSCOPY Routine 07/31/2021 12:00 PM EDT Epigastric pain Unspecified abdominal pain Lower abdominal pain, unspecified Constipation, unspecified Change in bowel habit from Last 3 Months or Most Recently Relevant to Health Maintenance Results * Colonoscopy (07/31/2021 12:00 PM EDT) Anatomical Region Laterality Modality Endoscopy 07/31/2021 12:0 0 PM EDT Narrative 07/31/2021 12:00 PM EDT PERFORMED AT [facility] LOCATION:[id number] Procedure Note CONVERSION, GENERIC - 03/12/2023 PERFORMED AT [facility] LOCATION:[id number] Emmett Caceres MD ENDOSCOPY PROCEDURE ORDERABL ES Final Result from Last 3 Months or Most Recently Relevant to Health Maintenance Insurance [employer] MEDICARE Care Teams Leadership Program Intern Relationship Specialty Start Date End Date Andre Gary [address] [place] [address] PCP - General Family Medicine 03/27/23 Oliver Kerr MD [address] [place] [address] Referring Physician Neurology 10/27/23
--- OUTSIDE RECORDS SUMMARY | 2025-04-18 08:49 | XMS_ITS | Encounter Summary ---
Author Organization [facility] Address [address] [place] [address] Care Team Providers Care Director Of Estate Name Role Phone Lisbet Brewster DO Unavailable [phone] Andre Gary Primary Care Provider [phone] Oliver Kerr MD Unavailable Unavailable Encounter Details Date Type Department Care Team (Late st Contact Info) Description 05/12/2023 Abstract [facility] [address] [place] [phone] Kwame Yang, [address] [place] [address] Social History Tobacco Use Types Packs/Day Years [...] [address] [place] [phone] Lisbet Brewster DO [address] [place] [address] 04/27/2025 10:30 AM EDT Office Visit [facility] [address] [facility] [address] [place] [phone] Emmett Becker MD [address] [place] [address] documented as of this encounter Visit Diagnoses Not on filedocumented in this encounter Care Teams Director Of Estate Relationship Specialty Start Date End Date Lisbet Brewster DO [address] [place] [address] PCP - [employer] 10/27/22 06/26/23 Andre Gary [address] [facility] [place] [address] PCP - General Family Medicine 03/27/23 Oliver Kerr MD [address] [facility] [place] [address] Referring Physician Neurology 10/27/23 documented as of this encounter
--- OUTSIDE RECORDS SUMMARY | 2025-04-18 08:49 | XMS_ITS | Clinical Summary ---
Author Organization [facility] Address [address] [place] [address] Phone Care Team Providers Care Pallet Stone Positioner Name Role Phone Andre Gary DO Primary Care Provider [phone] Allergies No known active allergies Medications atorvastatin (Lipitor) 40 mg tablet 1 (one) time each day at the same time. Active busPIRone (Buspar) 30 mg tablet Take 1 tablet (30 mg) by mouth 3 times a day. 3 Active DULoxetine (Cymbalta) [address] capsule Take 1 capsule (60 mg) by mouth 2 times a day. 9 Active empagliflozin (Jardiance) 10 mg Take 1 tablet (10 mg) by mouth once daily. 3 Active gabapentin (Neurontin) 600 mg tablet Take 2 capsules by mouth 3 times a day. 9 Active hydrOXYzine pamoate (Vistaril) 25 mg capsule Take 1 capsule (25 mg) by mouth 4 times a day as needed for anxiety. 3 Active insulin aspart (NovoLOG Flexpen U-100 Insulin) 100 unit/mL (3 mL) pen 10 units snacks, 20 units supper plus correction 1:30 > 150 mg/dl (max daily 50 units) 3 Active insulin degludec (Tresiba FlexTouch) 200 unit/mL (3 mL) injection Inject 60 Units under the skin once daily in the morning. 3 Active lisinopriL-hydr ochlorothiazide 20-12.5 mg tablet Take 1 tablet by mouth once daily. 1 Active metFORMIN (Glucophage) 1,000 mg tablet Take 1 tablet (1,000 mg) by mouth 2 times daily (morning and late afternoon). 9 Active rOPINIRole (Requip) 1 mg tablet Take 2 tablets (2 mg) by mouth once daily at bedtime. Active mirtazapine (Remeron) 15 mg tablet Take 1 tablet (15 mg) by mouth as needed at bedtime. Active acetaminophen (Tylenol) 325 mg tabletIndicatio ns:Postoperativ e pain Take 2 tablets (650 mg) by mouth every 6 hours if needed for mild pain (1 - 3). 4 Active cyclobenzaprine (Flexeril) 10 mg tabletIndicatio ns:Postoperativ e pain Take 1 tablet (10 mg) by mouth 3 times a day as needed for muscle spasms for up to 7 days. 21 tablet 4 Active Active Problems Problem Noted Date Diagnosed Date Idiopathic scoliosis in adult patient 09/10/2024 Lumbar spinal stenosis due t o adjacent segment disease 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 procedure 07/01/2024 Lumbar stenosis with neurogenic claudication 02/2024 Sagittal plane imbalance 07/01/2024 Flatback syndrome of lumbar region 07/01/2024 Notalgia 07/01/2024 Cervical myelopathy 04/01/2024 Cervical spinal 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 segment disease 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 procedure 04/01/2024 History of lumbar fusion 09/26/2023 Central stenosis of spinal canal 09/26/2023 Acute left-sided low back pain 02/28/2023 Chronic bilateral low back pain with right-sided sciatica 02/28/2023 Anxiety 02/28/2023 Arthropathy of left shoulder 02/28/2023 Constipation 02/28/2023 Degeneration of intervertebral disc of lumbar re gion 02/28/2023 Flank pain 02/28/2023 Full thickness rotator cuff tear 02/28/2023 Hyperlipidemia 02/28/2023 Hypertension 02/28/2023 Lumbago with sciatica, right side 02/28/2023 Major depressive disorder, single episode, unspe cified 02/28/2023 Primary localized osteoarthrosis of shoulder reg ion 02/28/2023 Spinal stenosis of lumbar re gion without neurogenic claudication 02/28/2023 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 Increase insulin. Displacement of lumbar inter vertebral disc without myelopathy 12/22/2018 Immunizations Immunization Administration Dates Next Due Flu vaccine (IIV4), preserva tive free *Check age/dose* 08/09/2019 Flu vaccine, quadrivalent, r ecombinant, preservative free, adult (FLUBLOK) 08/18/2020 Flu vaccine, trivalent, pres ervative free, age 6 months and greater (Fluarix/Fluzone/Flulaval) 08/16/2019 Influenza, injectable, quadrivalent 10/16/2021,1 11/08/2017 Influenza, seasonal, injectable 07/27/2020 Pneumococcal polysaccharide vaccine, 23-valent, age 2 years and older (PNEUMOVAX 23) 08/09/2019,08/08/2019,10/14/2009 Tdap vaccine, age 7 year and older (BOOSTRIX, ADACEL) 11/11/2019 Family History Medical History Relation Name Comments Cancer Father Diabetes Mother Relation Name Status Comments Father Mother Social History Tobacco Use Types Packs/Day Years Used Date Smoking Tobacco: Former Cigarettes Q uit: 2018 Smokeless Tobacco: Never Tobacco Cessation:Counseling Given: Not Answered Alcohol Use Standard Drinks/Week Comments Yes 0 (1 standard drink = 0.6 oz pur e alcohol) occasionally -1-2 on a weekend [facility] Answer Date Recorded In the past 12 months has e [employer], gas, oil, or water [employer] threatened to shut off services in your home? Patient unable to answer 09/10/2024 Humiliation, Afraid, Rape, and Kick questionnair e Answer Date Recorded Within the last year, have y ou been afraid of your partner or ex-partner? No 09/10/2024 Within the last year, have y ou been humiliated or emotionally abused in other ways by your partner or ex-partner? No Within the last year, have y ou been kicked, hit, slapped, or otherwise physically hurt by your partner or ex-partner? No 09/10/2024 Within the last year, have y ou been raped or forced to have any kind of sexual activity by your partner or ex-partner? No 09/10/2024 AUDIT-C Answer Date Recorded Q1: How often do you have a drink containing alc ohol? Monthly or less 09/10/2024 Q2: How many drinks containi ng alcohol do you have on a typical day when you are drinking? 1 or 2 09/10/2024 Q3: How often do you have si x or more drinks on one occasion? Less than monthly 09/10/2024 Overall Financial Resource Strain (CARDIA) Answe r Date Recorded How hard is it for you to pa y for the very basics like food, housing, medical care, and heating? Not hard at all 09/10/2024 PHQ-2 Answer Date Recorded Patient Health Questionnaire-2 Score 0 09/10/2024 Hunger Vital Sign Answer Date Recorded Within the past 12 months, y ou worried that your food would run out before you got the money to buy more. Patient unable to answer 09/10/2024 Within the past 12 months, t he food you bought just didn't last and you didn't have money to get more. Patient unable to answer 09/10/2024 PRAPARE - Transportation Answer Date Re corded In the past 12 months, has l ack of transportation kept you from medical appointments or from getting medications? No 08/27 In the past 12 months, has l ack of transportation kept you from meetings, work, or from getting things needed for daily living? No 09/10/2024 Housing Stability Vital Sign Answer Jeff e Recorded In the last 12 months, was t here a time when you were not able to pay the mortgage or rent on time? No 09/10/2024 In the past 12 months, how m any times have you moved where you were living? 1 09/10/2024 At any time in the past 12 m [facility], were you homeless or living in a long term (including now)? No 09/10/2024 Sex and Gender Information Value Date Recorded Sex Assigned at Not on file Legal Sex Male 5:23 PM EST Gender Identity Not on file Sexual Orientation Not on file Last Filed Vital Signs Vital Sign Reading Time Taken Comments Blood Pressure 173/92 10/28/2024 12:10 PM EST Pulse 98 10/28/2024 12:10 PM EST Temperature 36.2 C (97.2 F) 09/16/2024 8:33 AM EST Respiratory Rate 20 10/28/2024 12:10 PM EST Oxygen Saturation 93% 09/16/2024 8:33 AM EST Inhaled Oxygen Concentration - - Weight 99.8 kg (220 lb) 10/28/2024 12:10 PM EST Height 170.2 cm (5' 7 ) 10/28/2024 12:10 PM EST Body Mass Index 34.46 10/28/2024 12:10 PM EST Plan of Treatment Health Maintenance Due Date Last Done Comments CT Colonography 1958 Diabetes: Urine Protein Screening 1960 FIT-DNA (Cologuard) 1960 FIT 1958 Lipid Panel 1960 Sigmoidoscopy 1960 MMR Vaccines (1 of 1 - Standard series) 1959 Hepatitis C Screening 1976 Zoster Vaccines (1 of 2) 2008 RSV High Risk: (Elderly (60+) or Population) (1 - Risk 60-74 years 1-dose series) 2018 Pneumococcal Vaccine (2 of 2 - PCV) 08/09/2020 08/09/2019, 08/08/2019, 10/14/2009 Yearly Adult Physical 11/07/2023 11/06/2022 Abdominal Aortic Aneurysm (AAA) Screening 2023 COVID-19 Vaccine ( season) 2024 11/09/2021, 01/03/2021 Diabetes: Hemoglobin A1C 11/24/2024 08/24/2024, 04/27 Influenza Vaccine (Season Ended) 2025 10/16/2021, 08/18/2020, 07/27/2020, Additional history exists Diabetes: Retinopathy Screening 03/18/2026 03/18/2024, 03/17/2023, 03/13/2022 DTaP/Tdap/Td Vaccines (2 - Td or Tdap) 11/11/2029 11/11/2019 Colonoscopy 07/31/2031 07/31/2021, 07/31/2021 Colorectal Cancer Screening 07/31/2031 Welcome to Medicare Visit Discontinued 11/06/2022 HIB Vaccines Aged Out No longer eligi ble based on patient's age to complete this topic HPV Vaccines Aged Out No longer eligi ble based on patient's age to complete this topic Hepatitis A Vaccines Aged Out No long er eligible based on patient's age to complete this topic Hepatitis B Vaccines Aged Out No long er eligible based on patient's age to complete this topic IPV Vaccines Aged Out No longer eligi ble based on patient's age to complete this topic Meningococcal Vaccine Aged Out No brennen mervin eligible based on patient's age to complete this topic Rotavirus Vaccines Aged Out No longer eligible based on patient's age to complete this topic Goals Goal Patient Goal Type Associated Problems Recent Progress Patient-Stated? Author Help patient manage spine surgery Care Plan Patient has spine surgery No Hemal Quintero MD Autogenerated Goal Care Plan Autogenerated Problem No Sabrina Burciaga [employer] Implanted Type Area Patient Services Representative Device Identifier Shelf Expiration Date Model / Serial / Lot Screw, Reline Lock, 5.5mm Open Tulip - [id number] Implanted:Qt y: 26 on 09/10/2024 by Hemal Quintero MD at [facility]ventional Implant N/A: Spine Lumbar [employer] [id number] / / Plate, Leverage, 8mm Traditonal C-C - Sn/A - [id number] Implanted:Qt y: 1 on 05/24/2024 by Hemal Quintero MD at [facility] Screw N/A: Neck [employer] [id number] / N/A / N/A Screw, Leverage, Lateral Mass, 2.6 X 7mm - Sn/A - [id number] Implanted:Qt y: 2 on 05/24/2024 by Hemal Quintero MD at [facility] Screw N/A: Neck [employer] [id number] / N/A / N/A Screw, Reline-O, 6.5x50mm 2s Polyaxial - [id number] Implanted:Qt y: 8 on 09/10/2024 by Hemal Quintero MD at [facility] Screw N/A: Spine Lumbar [employer] [id number] / / Screw, Reline-O, 7.5x50mm 2s Polyaxial - [id number] Implanted:Qt y: 5 on 09/10/2024 by Hemal Quintero MD at [facility] Screw N/A: Spine Lumbar [employer] [id number] / / Screw, Reline-O, 6.5x45mm 2s Polyaxial - [id number] Implanted:Qt y: 1 on 09/10/2024 by Hemal Quintero MD at [facility] Screw N/A: Spine Lumbar [employer] [id number] / / Screw, Reline-O, 8.5x80mm 2s Poly Iliac - [id number] Implanted:Qt y: 2 on 09/10/2024 by Hemal Quintero MD at [facility] Screw N/A: Spine Lumbar [employer] [id number] / / Reline-O Conn, 5-6/5-6mm O-O Med - [id number] Implanted:Qt y: 2 on 09/10/2024 by Hemal Quintero MD at [facility] Screw N/A: Spine Lumbar [employer] [id number] / / Infuse Bmp, Large - [id number] Implanted:Qt y: 1 on 09/10/2024 by Hemal Quintero MD at [facility] Spinal Hardware N/A: Spine Lumbar [employer]:SOFAMOR DANEK [id number] 06/27/2025 [id number] / / [id number] Screw, Leverage, Lateral Mass, 2.6 X 5mm Implanted:Qt y: 2 on 05/24/2024 by Hemal Quintero MD at [facility] N/A: Neck [employer] [id number] / NA / Unid Exp Ti Dual Diam Tha 5.5/6.0mm Implanted:Qt y: 2 on 09/10/2024 by Hemal Quintero MD at [facility] N/A: Spine Lumbar [employer] 12/10/2024 [id number] 06-27 / [id number] Description:Per bill only alexy r 09/13 Procedures Procedure Name Priority Date/Time Associated Diagnosis Comments HEMOGLOBIN A1C Routine 08/24/2024 10:58 AM EDT Pre-op testing Cervical spinal 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 segment disease 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 procedure Cervical myelopathy Insulin dependent type 2 diabetes mellitus (Multi) H/O insulin dependent diabetes mellitus from Last 3 Months or Most Recently Relevant to Health Maintenance Results * (ABNORMAL) Hemoglobin A1c (08/24/2024 10:58 AM EDT) Hemoglobin A1C 8.6(H) See comment % 024 1:33 PM EDT [facility] Estimated Average Glucose 200 Not Established mg/dL 08/24/2024 1:33 PM EDT [facility] Blood Venous blood specimen / Unknown Venipuncture / Unknown 08/24/2024 10:58 AM EDT 08/24/2024 12:54 PM EDT Narrative [facility] - 08/24/2024 1:33 PM EDT Diagnosis of Diabetes-Adults Non-Diabetic: < or = 5.6% Increased risk for developing diabetes: 5.7-6.4% Diagnostic of diabetes: > or = 6.5% Hemal Quintero MD LAB BLOOD ORDERABLES Final Result [facility] [id number] [phone] from Last 3 Months or Most Recently Relevant to Health Maintenance Additional Health Concerns Active Problems Noted Date Diagnosed Date Patient has spine surgery 04/01/2024 Autogenerated Problem 03/20/2025 Insurance Advance Directives For more information, please contact: [phone] (Available ) * Full Code (Latest Code Status on File) Date Activated Date Inactivated Comments 09/10/2024 3:45 PM Question Answer Comments Plan of Care: Code Status Discussion Completed Decision Maker: Patient * Full Code Date Activated Date Inactivated Comments 05/24/2024 11:50 AM 09/10/2024 3:45 PM Question Answer Comments Plan of Care: Code Status Discussion Completed Decision Maker: Patient Care Teams Pallet Stone Positioner Relationship Specialty Start Date End Date Andre Gary DO [address] [facility] [place] [address] PCP - General Family Medicine 04/01/24
[2025-04-18 08:52] VITALS: BP 151/72; PULSE 93; TEMP 36.6; O2SAT 97
[2025-04-18 09:36] VITALS: BP 137/72; BP 140/68; PULSE 90; O2SAT 94; O2SAT 98
[2025-04-18] MEDS: IOHEXOL 240 MG/ML - 10 ML VIAL INJ (09:39)
[2025-04-18] MEDS: 0.9 % SODIUM CHLORIDE 10 ML SYRINGE - SALINE FLUSH INJ (09:39)
[2025-04-18] MEDS: BUPIVACAINE HCL 0.25% PF 25 MG/10 ML VIAL INJ (09:39)
[2025-04-18] MEDS: METHYLPREDNISOLONE ACETATE 80 MG/ML VIAL INJ (09:40)
[2025-04-18] MEDS: LIDOCAINE HCL 2% 400 MG/20 ML MDV 3 ML INJ (09:40)
--- NOTE | 2025-04-18 09:43 | P.ON_ITS ---
Date of procedure: 04/18/25 Pre-op diagnosis: Pain due to lumbar stenosis with neurogenic claudication Post-op diagnosis: same as pre-op Procedure: Procedure: Right L4-5, L5-S1 transforaminal epidural steroid injection Medications: Bupivacaine 0.25% 2cc, lidocaine 2% 1cc, depomedrol 80mg The patient was seen and examined in the preoperative holding area.? Informed consent was obtained and placed on the chart.? Patient was brought to the medical procedure unit and placed in the prone position where a timeout was completed verifying the correct patient, procedure site, position, and planned special equipment using sterile aseptic technique.? Under direct fluoroscopic visualization a 25-gauge Quincke tipped spinal needle was advanced to the designated neural foramen where contrast dye was injected to show adequate spread.? The needle was inserted at level right L4-5. There was no evidence of vascular or adverse uptake.? Epidural spread was appreciated.? The above- mentioned injectate was then placed in a 1.5 mL aliquot preceded by negative aspiration.? The needle was removed. The needle was inserted and the procedure repeated at level right L5-S1.? The surgery site was covered.? Patient was taken to the postprocedural recovery area and monitored for an appropriate length of time before found suitable for discharge in the accompaniment of a responsible adult. Anesthesia: Local Surgeon: Savanna Mcclain Pathology: none sent Condition: stable Disposition: no change
--- OUTSIDE RECORDS SUMMARY | 2025-04-18 11:15 | XMS_ITS | Encounter Summary ---
Author Organization [facility] Address [address] [place] [address] Care Team Providers Care Deputy Assessor Name Role Phone Andre Gary Primary Care Provider [phone] Oliver Kerr MD Unavailable Unavailable Reason for Visit * Reason Comments Diabetes Encounter Details Date Type Department Care Team (Late Contact Info) Description 04/18/2025 11:15 AM EDT Office Visit [facility] [address] [facility] 230 [place] [phone] Lisbet Brewster, [address] [facility] [address] [place] [address] Social History Tobacco Use Types Packs/Day Years [...] week 10/07/2023 How often do you attend moravian or mormonism serv ices? Never 10/07/2023 Do you belong to any clubs o r organizations such as moravian groups, unions, fraternal or athletic groups, or [...] Recorded Patient Health Questionnaire-2 Score 0 10/15/2024 [facility] - Occupational Stress [...] place to sleep or slept in a group home (including now)? Patient refused 10/07/2023 Sex and Gender Information Value Date Recorded Sex Assigned at Not on file Legal Sex Male 6:37 PM EDT Gender Identity Not on file Sexual Orientation Not on file documented as of this encounter Plan of Treatment Upcoming Encounters Date Type Department Care Team (Late st Contact Info) Description 04/27/2025 10:30 AM EDT Office Visit [facility] [address] [phone] Emmett Becker MD [address] [place] [address] [address] documented as of this encounter Visit Diagnoses Not on filedocumented in this encounter Care Teams Deputy Assessor Relationship Specialty Start Date End Date Andre Gary [address] [facility] [place] [address] PCP - General Family Medicine 03/27/23 [place] [address] [place] [address] Referring Physician Neurology 10/27/23 documented as of this encounter
== END 2025-04-18 09:49 | disposition home or self-care (01) ==
LOC: SURGOUT 08:47
PROVIDERS: PCP Family Medicine; Visit Provider Anesthesiology
DX: M54.50 Low back pain, unspecified (principal); M48.062 Spinal stenosis, lumbar region with neurogenic claudication; E11.8 Type 2 diabetes mellitus with unspecified complications; Z79.85 Long-term (current) use of injectable non-insulin antidiabetic drugs; Z79.84 Long term (current) use of oral hypoglycemic drugs
CPT/HCPCS: 64483; 64484; J0665; J1010; Q9966